=== PATIENT | male | born 1945 | race Caucasian/White ===

== ENCOUNTER → 2016-09-29 | Outpatient (CLI) | payer MEDICARE ==
[~2016-09-29] VITALS: Ht 175.3 cm; Wt 74.8 kg
[~2016-09-29] MED LIST: ALBU17AE23 IH; AMLO1CAP9 PO; ASP81TEC PO; ATOR20TA66 PO; ATOR40TA PO; AZIT-21 PO; BUDE10.22 IH; BUDE6HFA IH; CALC-6 PO; CARV12.52 PO; CARV3.122 PO; CEFA-4 PO; CEPH250T PO; CEPH500C PO; CETI10CA PO; CETI10TA17 PO; CITA20TA4 PO; CLOB15CR3 TP; ENAL2.5T PO; ENOX40DI8 SC; ETOD400T PO; FEXO1TAB49 PO; FURO20TA4 PO; GABA800T2 PO; GBPN300C PO; HCT25T PO; HYDR-2890 PO; HYDR-3720 PO; HYDR-3820 PO; HYDR-623 PO; IPRA3AMP IH; IPRA3AMP19 IH; LEFL20TA4 PO; LEUC5TAB PO; LEVO125T PO; LEVO175T5 PO; LEVO175T6 PO; LVT.05T PO; LVT.1T PO; METR500T21 PO; MORP-34 PO; MORP15TA PO; MORP30TA PO; MORP30TA16 PO; MORP30TA60 PO; MORP4CAR IVP; MS15TCR PO; MTX2.5T PO; NF-LOVAZAC PO; NS IV 1000 ML 1,000 ML IV ONE; NS IV 1000 ML 1,000 ML ONE; OMEP20CA6 PO; ONDA4TAB11 PO; ONDA4VIA28 IV; ONDA8TAB13 PO; ONDA8TAB6 PO; PANT40SU PO; PNT40TEC PO; POTA10TA36 PO; PRAM0.252 PO; PRD5T PO; PRED10TA22 PO; PRM25T PO; PRV20T PO; RIVA15TA PO; SACU1TAB PO; SODI44SP4 NS; SUCR1TAB PO; TIZA4CAP PO; TIZA4CAP6 PO; TIZA4TAB3 PO; TIZA4TAB55 PO; TIZA6CAP9 PO; TIZANDINE; VANCOMYCIN PO
[2016-09-29 15:55] VITALS: BP 78/44
[2016-09-29 17:31] VITALS: BP 78/44
== END ==
LOC: SDC 15:39
DX: N17.9 Acute kidney failure, unspecified (principal)
CPT/HCPCS: 96365

== ENCOUNTER → 2016-10-05 | Outpatient (CLI) | payer MEDICARE ==
[~2016-10-05] MED LIST changes: -NS IV 1000 ML 1,000 ML IV ONE; -NS IV 1000 ML 1,000 ML ONE
--- NOTE | 2016-10-05 15:25 | Diagnostic Imaging Report ---
PROCEDURE: CT abdomen and pelvis without contrast. TECHNIQUE: Multiple contiguous axial images were obtained through the abdomen and pelvis without the use of intravenous contrast. INDICATION: Abdominal pain and lower extremity swelling. COMPARISON: Comparison is made to study of 04/01/2015. FINDINGS: Minimal scarring in the lung bases is again noted. Unenhanced images of the liver and spleen reveal no focal abnormality. Gallbladder is partially contracted. There is persistent extrahepatic biliary ductal dilatation without evidence of calcified choledocholith. There is no evidence of adrenal gland lesion. Evaluation of the kidneys is limited without intravenous contrast, however, there is no evidence of solid mass or hydronephrosis. Calcification in the anterior cortex of the left kidney has not significantly changed. There is mild infrarenal abdominal aortic ectasia with aortoiliac atherosclerotic calcification. There is moderate amount of stool throughout the colon. No localized inflammation is seen. The appendix has a normal appearance. There is no evidence of free fluid or pathologic adenopathy in the abdomen. There has been an interval increase in size of prominent bilateral inguinal lymph nodes with the largest lymph node in the right inguinal region measuring 2.2 x 1.0 cm. IMPRESSION: Large amount of stool which may reflect constipation. There is persistent nonobstructing calculus in the left kidney. There has been mild increase in lymph node prominence in the inguinal regions, however, no acute abdominal abnormality is appreciated. Dictated by: Dictated on workstation # [id number]
== END ==
LOC: RAD 13:44
PROVIDERS: ATTEND Nurse Practitioner Family
DX: R10.817 Generalized abdominal tenderness (principal)
CPT/HCPCS: 74176

== ENCOUNTER 2016-10-31 14:27 | Outpatient (RCR) | payer MEDICARE ==
[~2016-10-31 14:27] MED LIST changes: -ATOR20TA66 PO; -ATOR40TA PO; -CALC-6 PO; -ENOX40DI8 SC; -FURO20TA4 PO; -GABA800T2 PO; -HYDR-3820 PO; -IPRA3AMP IH; -LEVO125T PO; -LEVO175T5 PO; -METR500T21 PO; -MORP-34 PO; -MORP30TA PO; -MORP30TA60 PO; -MORP4CAR IVP; -ONDA4VIA28 IV; -ONDA8TAB13 PO; -ONDA8TAB6 PO; -POTA10TA36 PO; -PRED10TA22 PO; -RIVA15TA PO; -SACU1TAB PO; -SUCR1TAB PO; -TIZA4TAB3 PO; -TIZA6CAP9 PO; -VANCOMYCIN PO
[2016-11-08] MEDS ORDERED: TIZA4TAB3 PO (09:43)
[2016-11-08] MEDS ORDERED: ONDA8TAB13 PO (09:43)
[2016-11-08] MEDS ORDERED: SUCR1TAB PO (09:43)
[2016-11-08] MEDS ORDERED: GABA800T2 PO (09:43)
[2016-12-21] MEDS ORDERED: ENOX40DI8 SC (11:19)
[2016-12-21] MEDS ORDERED: MORP4CAR IVP (11:19)
[2016-12-21] MEDS ORDERED: METR500T21 PO (11:19)
[2016-12-21] MEDS ORDERED: ONDA4VIA28 IV (11:19)
[2016-12-21] MEDS ORDERED: VANCOMYCIN PO ×2 (11:22→13:15)
== END 2016-11-14 16:00 | disposition home or self-care (01) ==
LOC: WOUNDCARE 14:27
PROVIDERS: ATTEND Surgery
DX: L97.212 Non-pressure chronic ulcer of right calf with fat layer exposed (principal); L97.221 Non-pressure chronic ulcer of left calf limited to breakdown of skin; I87.333 Chronic venous hypertension (idiopathic) with ulcer and inflammation of bilateral lower extremity; I70.232 Atherosclerosis of native arteries of right leg with ulceration of calf; I70.242 Atherosclerosis of native arteries of left leg with ulceration of calf; T65.222A Toxic effect of tobacco cigarettes, intentional self-harm, initial encounter
CPT/HCPCS: 99213; 99214

== ENCOUNTER 2016-11-07 11:16 | Inpatient (IN) | payer MEDICARE ==
[~2016-11-07] VITALS: Ht 175.3 cm; Wt 63.2 kg
--- OUTSIDE RECORDS SUMMARY | 2016-11-07 11:20 | XMS REPORT | Continuity of Care Document ---
Author Author [facility] Organization [facility] Address Unknown Phone Unavailable Allergies Active Description Code Type Severity Reaction Onset Reported/Identified Relationship to Patient Clinical Status Yes Sulfa (Sulfonamide Antibiotics) [id number] Drug Allergy Unknown N/A 06/16/2011 Medications Problems Date Dx Coded Attending Type Code Diagnosis Diagnosed By 03/04/2015 ARELY PAVON, TEE Reece Ot 401.9 03/04/2015 ARELY PAVON, TEE Reece Ot 562.10 03/04/2015 ARELY PAVON, TEE Reece Ot 715.90 03/04/2015 ARELY PAVON, TEE Reece Ot 792.1 03/18/2015 VALENTINO FLOWERS [employer] Ot 496 04/23/2015 VALENTINO FLOWERS [employer] SUPERVISOR Ot 783.21 04/23/2015 VALENTINO FLOWERS APRN Ot 789.00 05/01/2015 MOSHE PAVON, ANDREINA Thomas Ot 793.6 05/15/2015 VALENTINO FLOWERS APRN Ot 793.6 09/30/2016 ANDREINA MESA MD Ot N17.9 ACUTE KIDNEY FAILURE, UNSPECIFIED 10/06/2016 VALENTINO FLOWERS APRN Ot R10.817 GENERALIZED ABDOMINAL TENDERNESS 10/19/2016 ANDREINA MESA MD Ot N17.9 ACUTE KIDNEY FAILURE, UNSPECIFIED 10/27/2016 VALENTINO FLOWERS [employer]PER[employer] Ot R10.817 GENERALIZED ABDOMINAL TENDERNESS Procedures Results Encounters ACCT No. Visit Date/Time Discharge Status Pt. Type Provider Facility Loc./Unit Complaint [id number] 04/21/2015 09:24:00 2014 23:59:59 CLS Outpatient VALENTINO FLOWERS APRN [facility] CARD [id number] 04/07/2015 07:50:00 2014 23:59:59 CLS Outpatient ANDREINA MESA MD [facility] RAD [id number] 04/01/2015 09:36:00 2014 23:59:59 CLS Outpatient VALENTINO FLOWERS APRN [facility] RAD [id number] 03/04/2015 13:20:00 2014 15:50:00 DIS Outpatient TEE MCGEE MD [facility] [id number] 03/02/2015 13:24:00 2014 23:59:59 CLS Outpatient TEE MCGEE MD [facility] PREOP [id number] 02/26/2015 14:13:00 2014 23:59:59 CLS Outpatient VALENTINO FLOWERS APRN [facility] RAD [id number] 08/12/2013 11:54:00 2012 15:30:00 DIS Outpatient [id number] 08/09/2013 09:24:00 2012 23:59:59 CLS Outpatient [id number] 07/25/2013 09:19:00 2012 23:59:59 CLS Outpatient [id number] 07/19/2013 11:40:00 2012 23:59:59 CLS Outpatient [id number] 10/31/2016 14:27:00 ACT Outpatient FLIP PAVON, RAPHAEL Jeff [facility] WOUNDCARE [id number] 10/05/2016 13:44:00 ACT Outpatient VALENTINO FLOWERS APRN [facility] RAD ABDOMINAL PAIN [id number] 09/29/2016 15:39:00 ACT Outpatient MOSHE PAVON , ANDREINA Tohmas [facility] RENAL FAILURE
[2016-11-07 11:39] LABS: BASOPHILS % (AUTO) 0 % (0-10); EOSINOPHILS % (AUTO) 0 % (0-10); LYMPHOCYTES # (AUTO) 0.7 X 10^3 (1.0-4.0); LYMPHOCYTES % (AUTO) 4 % (12-44); MEAN CORPUSCULAR HEMOGLOBIN 29 PG (25-34); MEAN CORPUSCULAR HGB CONC 33 G/DL (32-36); MEAN CORPUSCULAR VOLUME 88 FL (80-99); MEAN PLATELET VOLUME 9.6 FL (7.4-10.4); MONOCYTES # (AUTO) 0.7 X 10^3 (0.0-1.0); MONOCYTES % (AUTO) 4 % (0-12); NEUTROPHILS # (AUTO) 16.3 X 10^3 (1.8-7.8); NEUTROPHILS % (AUTO) 92 % (42-75); PLATELET COUNT 222 10^3/uL (130-400); RED BLOOD COUNT 4.28 10^6/uL (4.35-5.85); RED CELL DISTRIBUTION WIDTH 14.5 % (10.0-14.5); WHITE BLOOD COUNT 17.7 10^3/uL (4.3-11.0)
[2016-11-07] MEDS ORDERED: RT-ALBUTEROL/IPRATROPIUM 3 ML (DUONEB) VIAL INH ONE (11:45)
[2016-11-07 11:52] LABS: INR 1.4 (0.8-1.4); PROTHROMBIN TIME PATIENT 16.5 SEC (12.2-14.7)
[2016-11-07 11:56] LABS: BILIRUBIN,URINE NEGATIVE (NEGATIVE); KETONES,URINE 2+ (NEGATIVE); LEUKOCYTE ESTERASE ,URINE NEGATIVE (NEGATIVE); NITRITE,URINE NEGATIVE (NEGATIVE); PH,URINE 5 (5-9); PROTEIN,URINE 2+ (NEGATIVE); UROBILINOGEN,URINE NORMAL (NORMAL)
[2016-11-07 12:02] LABS: ALANINE AMINOTRANSFERASE 11 U/L (0-55); ALBUMIN 3.4 G/DL (3.2-4.5); AMMONIA 18 UMOL/L (11-32); AMYLASE 24 U/L (25-125); ANION GAP 14 MMOL/L (5-14); ASPARTATE AMINO TRANSFERASE 23 U/L (5-34); BILIRUBIN,TOTAL 0.4 MG/DL (0.1-1.0); BLOOD UREA NITROGEN 39 MG/DL (7-18); BUN/CREATININE RATIO 22; CALCIUM 9.2 MG/DL (8.5-10.1); CARBON DIOXIDE 26 MMOL/L (21-32); CHLORIDE 95 MMOL/L (98-107); CREATINE KINASE 574 U/L (30-200); CREATININE SERUM 1.78 MG/DL (0.60-1.30); GFR ESTIMATED 38; GLUCOSE 114 MG/DL (70-105); MAGNESIUM 1.9 MG/DL (1.8-2.4); POTASSIUM 3.9 MMOL/L (3.6-5.0); SODIUM 135 MMOL/L (135-145); TOTAL PROTEIN 6.9 G/DL (6.4-8.2)
[2016-11-07 12:05] LABS: ALCOHOL < 10 MG/DL (<10)
[2016-11-07 12:08] LABS: SQUAMOUS EPITHELIAL CELL,UR 0-2 /HPF; WBC,URINE RARE /HPF
[2016-11-07 12:10] LABS: ABG BASE EXCESS 1.3 MMOL/L (-2.5-2.5); ABG HCO3 25 MMOL/L (23-27); ABG OXYGEN SATURATION 99 % (94-100); ABG PCO2 39 MMHG (35-45); ABG PH 7.43 (7.37-7.43); ABG PO2 147 MMHG (79-93); ABG TCO2 26.1 MMOL/L (21.0-31.0)
[2016-11-07 12:14] LABS: LYMPHOCYTES % (MANUAL) 6 %; NEUTROPHILS % (MANUAL) 91 %
[2016-11-07 12:18] LABS: ALLENS TEST YES-POS; PATIENT TEMP 101.2
--- NOTE | 2016-11-07 12:42 | Diagnostic Imaging Report ---
INDICATION: Hypoxemia EXAMINATION: Portable chest at 12:29 PM. There is an infiltrate present in the right lower lung obscuring the right heart border. There is no appreciable effusion. Left lung is clear. IMPRESSION: Right basilar pneumonia. Dictated by: Dictated on workstation # [id number]
[2016-11-07] MEDS ORDERED: ENOXAPARIN 80 MG/0.8 ML (LOVENOX) SYR SC ONE (14:00)
[2016-11-07] MEDS ORDERED: cefTRIAXone INJECTION 1,000 MG in NS (IVPB) 50 ML IV ONE (14:00)
[2016-11-07 15:15] VITALS: BP 129/76
[2016-11-07] MEDS ORDERED: morphine INJ 4 MG/ML 1 ML (VIAL/SYRINGE) IV PRN (15:45)
[2016-11-07] MEDS ORDERED: D5 1/2 NS 1000 ML IV SOLUTION 1,000 ML IV SCH (15:45)
[2016-11-07] MEDS ORDERED: CATHETER FLUSH 10 ML SYR IV PRN (15:45)
[2016-11-07] MEDS ORDERED: AZITHROMYCIN 500 MG/NS 250 ML IVPB IV NR ×2 (16:00)
--- NOTE | 2016-11-07 16:44 | Diagnostic Imaging Report ---
PROCEDURE: CT head without contrast. TECHNIQUE: Multiple contiguous axial images were obtained through the brain without the use of intravenous contrast. INDICATION: Altered mental status. FINDINGS: Ventricles and sulci are diffusely prominent. No hemorrhage is identified. There is no CT evidence of an acute infarct. There is no abnormal mass effect or shift of midline structures. Calvarium is intact and the visualized paranasal sinuses are clear. There is mild atherosclerotic calcification within distal internal carotid arteries, bilaterally. IMPRESSION: No CT evidence of acute intracranial abnormality. Dictated by: Dictated on workstation # [id number]
--- NOTE | 2016-11-07 16:50 | Consultation-Cardiology ---
HPI-Cardiology Cardiology Consultation Date of Consultation 11/07/16 Date of Admission Indication: Peripheral arterial disease HPI 71 years old gentleman with history of peripheral arterial disease, nonhealing wound, he was on the schedule for peripheral angiogram, brought to the emergency room for change in mental status, he is lethargic, not able to provide any history, does not know where he is. Open his eyes to verbal stimuli , does not respond appropriately, does not follow commands. Diagnosed with pneumonia and admitted to the intensive care unit and started on antibiotics. Home Medications & Allergies Allergies: Coded Allergies: Sulfa (Sulfonamide Antibiotics) (Unverified Allergy, Unknown, 11/07/16) Home Medication List Reviewed: Yes [id number]-Ihtyxo Hx Patient Social History Alcohol Use: Denies Use Recreational Drug Use: No (NONE FOR YEARS) Smoking Status: Current Everyday Smoker Type Used: Cigarettes Recent Foreign Travel: No Recent Infectious Disease Expo: No Recent Hopitalizations: No Immunizations Up To Date Date of Pneumonia Vaccine: Mar 04, 2013 Past Medical History past medical history as discussed below Family Medical History Family Medical Hx noncontributory to his current condition Constitutional: see HPI malaise weakness EENTM: no symptoms reported see HPI Respiratory: see HPI cough dyspnea on exertion short of breath Cardiovascular: see HPINo chest pain, No edema, No Hx of Intervention, No palpitations, No syncope, No vascular heart diseas, other (nonhealing foot ulcers) Gastrointestinal: no symptoms reported see HPI Genitourinary: no symptoms reported see HPI Musculoskeletal: no symptoms reported see HPI Skin: see HPI Psychiatric/Neurological: No Symptoms Reported See HPI Other (not responsive to verbal stimuli.) Reviewed Test Results Reviewed Test Results Lab Laboratory Tests Test 11/07/16 11:22 11/07/16 11:45 11/07/16 12:03 Range/Units Activated Partial Thromboplast Time 34 24-35 SEC Alanine Aminotransferase (ALT/SGPT) 11 0-55 U/L Albumin 3.4 3.2-4.5 G/DL Alkaline Phosphatase 74 40-136 U/L Ammonia 18 11-32 UMOL/L Amylase Level 24 L 25-125 U/L Anion Gap 14 5-14 MMOL/L Aspartate Amino Transf (AST/SGOT) 23 5-34 U/L B-Type Natriuretic Peptide 255.3 H <100.0 PG/ML BUN/Creatinine Ratio 22 Basophils # (Auto) 0.0 0.0-0.1 10^3/uL Basophils (%) (Auto) 0 0-10 % Blood Morphology Comment NORMAL Blood Urea Nitrogen 39 H 7-18 MG/DL Calcium Level 9.2 8.5-10.1 MG/DL Carbon Dioxide Level 26 21-32 MMOL/L Chloride Level 95 L 98-107 MMOL/L Creatine Kinase MB 3.5 <6.6 NG/ML Creatinine 1.78 H 0.60-1.30 MG/DL Eosinophils # (Auto) 0.0 0.0-0.3 10^3/uL Eosinophils (%) (Auto) 0 0-10 % Estimat Glomerular Filtration Rate 38 Free Thyroxine 2.14 H 0.70-1.48 NG/DL Glucose Level 114 H 70-105 MG/DL Hematocrit 38 L 40-54 % Hemoglobin 12.3 L 13.3-17.7 G/DL INR Comment 1.4 0.8-1.4 Lactic Acid Level 1.6 0.5-2.0 MMOL/L Lymphocytes # (Auto) 0.7 L 1.0-4.0 X 10^3 Lymphocytes % (Manual) 6 % Lymphocytes (%) (Auto) 4 L 12-44 % Magnesium Level 1.9 1.8-2.4 MG/DL Mean Corpuscular Hemoglobin 29 25-34 PG Mean Corpuscular Hemoglobin Concent 33 32-36 G/DL Mean Corpuscular Volume 88 80-99 FL Mean Platelet Volume 9.6 7.4-10.4 FL Monocytes # (Auto) 0.7 0.0-1.0 X 10^3 Monocytes % (Manual) 3 % Monocytes (%) (Auto) 4 0-12 % Neutrophils # (Auto) 16.3 H 1.8-7.8 X 10^3 Neutrophils % (Manual) 91 % Neutrophils (%) (Auto) 92 H 42-75 % Platelet Count 222 130-400 10^3/uL Potassium Level 3.9 3.6-5.0 MMOL/L Promyelocytes % % Prothrombin Time 16.5 H 12.2-14.7 SEC Red Blood Count 4.28 L 4.35-5.85 10^6/uL Red Cell Distribution Width 14.5 10.0-14.5 % Serum Alcohol < 10 <10 MG/DL Sodium Level 135 135-145 MMOL/L TSH [place] Testing 0.02 L 0.35-4.94 UIU/ML Total Bilirubin 0.4 0.1-1.0 MG/DL Total Creatine Kinase 574 H 30-200 U/L Total Protein 6.9 6.4-8.2 G/DL Troponin I 0.60 *H <0.30 NG/ML White Blood Count 17.7 H 4.3-11.0 10^3/uL Ur Tricyclic Antidepressants Screen NEGATIVE NEGATIVE Urine Amorphous Sediment FEW SHAUN URATES H /LPF Urine Amphetamines Screen NEGATIVE NEGATIVE Urine Bacteria FEW H /HPF Urine Barbiturates Screen NEGATIVE NEGATIVE Urine Benzodiazepines Screen NEGATIVE NEGATIVE Urine Bilirubin NEGATIVE NEGATIVE Urine Cannabinoids Screen NEGATIVE NEGATIVE Urine Casts NONE /LPF Urine Clarity CLEAR Urine Cocaine Screen NEGATIVE NEGATIVE Urine Color YELLOW Urine Crystals NONE /LPF Urine Culture Indicated NO Urine Glucose (UA) NEGATIVE NEGATIVE Urine Ketones 2+ H NEGATIVE Urine Leukocyte Esterase NEGATIVE NEGATIVE Urine Methadone Screen NEGATIVE NEGATIVE Urine Methamphetamines Screen NEGATIVE NEGATIVE Urine Mucus NEGATIVE /LPF Urine Nitrite NEGATIVE NEGATIVE Urine Opiates Screen POSITIVE H NEGATIVE Urine Oxycodone Screen NEGATIVE NEGATIVE Urine Phencyclidine Screen NEGATIVE NEGATIVE Urine Propoxyphene Screen NEGATIVE NEGATIVE Urine Protein 2+ H NEGATIVE Urine RBC NONE /HPF Urine RBC (Auto) 4+ H NEGATIVE Urine Specific [place] 1.020 1.016-1.022 Urine Squamous Epithelial Cells 0-2 /HPF Urine Urobilinogen NORMAL NORMAL MG/DL Urine WBC RARE /HPF Urine pH 5 5-9 Jermaine Test YES-POS Arterial Blood Base Excess 1.3 -2.5-2.5 MMOL/L Arterial Blood HCO3 25 23-27 MMOL/L Arterial Blood Oxygen Saturation 99 94-100 % Arterial Blood Partial Pressure CO2 39 35-45 MMHG Arterial Blood Partial Pressure O2 147 H 79-93 MMHG Arterial Blood Total CO2 26.1 21.0-31.0 MMOL/L Arterial Blood pH 7.43 7.37-7.43 Blood Gas Inspired Oxygen 10 Blood Gas Patient Temperature 101.2 Blood Gas Puncture Site RT RADIAL Blood Gas Ventilator Setting NO Physical Exam Vital Signs Vital Sign - Last 12Hours 11/07/16 11:50 Temp 101.2 Pulse 102 Resp 18 B/P 101/78 Pulse Ox 94 O2 Delivery Nasal Cannula O2 Flow Rate 6 Capillary Refill : Less Than 3 Seconds General Appearance: WD/WN Moderate Distress Eyes: Bilateral Eye EOMI, Bilateral Eye Normal Inspection, Bilateral Eye PERRL HEENT: PERRL/EOMI TMs Normal Normal ENT Inspection Pharynx Normal Neck: Normal Inspection Non Tender Supple Carotid Bruit Respiratory: Chest Non Tender No Respiratory Distress Crackles Decreased Breath Sounds Cardiovascular: Regular Rate, Rhythm No Edema No Gallop No JVD No Murmur Other (diminished peripheral pulse) Gastrointestinal: Normal Bowel Sounds No Organomegaly No Pulsatile Mass Non Tender Soft Back: Normal Inspection No Vertebral Tenderness Extremity: Normal Range of Motion No Calf Tenderness No Pedal Edema Other ( foot ulcers bilaterally) Neurologic/Psychiatric: Alert Other (lethargic, not following commands, responds by opening his eyes) Skin: Normal Color Warm/Dry Lymphatic: No Adenopathy A/P-Cardiology Admission Diagnosis Acute change in mental status Pneumonia Peripheral arterial disease Coronary artery disease Assessment/Plan Acute change in mental status, probably secondary to sepsis and pneumonia, managed by primary care physician, started on IV fluid. Elevated troponin, no acute EKG changes, had history of cardiac catheterization done in 2011 showing [id number] disease nonobstructive disease. May require reevaluating his coronary anatomy once his kidney functions and mental status are better, I will start aspirin at this time, evaluate swallowing study Acute renal failure, dehydration, starting IV fluid and monitoring renal function closely. Pneumonia, managed by primary care physician, started on antibiotics in the emergency room. Nonhealing foot ulcers bilaterally, on the right side is on the outside portion of the ankle, SEAMUS on the right is 0.57, on the left side the ulcer is on the inner part of the foot, SEAMUS 0.32, planning to proceed with peripheral angiogram possible angioplasty Once clinically more stable, patient was on the schedule for angiogram for November 09, 2016 Coronary artery disease, last angiogram was done in November 2011 showing large dominant circumflex artery with [id number] disease, nonobstructive disease , preserved left ventricular function, no recent workup was done, I will evaluate coronary angiogram with the peripheral angiogram. History of peripheral edema, currently no edema, patient is dehydrated. Continue to monitor Hypertension, Continue to monitor blood pressure Hyperlipidemia, maintained on Pravachol, evaluate lipid profile Hyperthyroidism, history of hypothyroidism and levothyroid, managed by primary care physician History of pulmonary hypertension, I will evaluate 2-D echocardiogram. History of rheumatoid arthritis. COPD, managed and followed by primary care physician Tobaccoism, we discussed smoking cessation in length. Hypothyroidism followed and managed by primary care physician History of chronic narcotic use, urine drug screen is positive for opioids Clinical Quality Measures AMI/AHF: ASA po Prior to arrival: TORY Bryant MD Nov 07, 2016 16:50
[2016-11-07] MEDS ORDERED: ASPIRIN 325 MG (5 GR) TABLET PO NR (17:00)
[2016-11-07] MEDS: NS IV 1000 ML 1,000 ML IV SCH (17:23)
[2016-11-07] MEDS ORDERED: RT-ALBUTEROL/IPRATROPIUM 3 ML (DUONEB) VIAL INH PRN (17:30)
[2016-11-07] MEDS: RT-ALBUTEROL/IPRATROPIUM 3 ML (DUONEB) VIAL INH SCH ×2 (18:36→22:26)
[2016-11-07 19:00] VITALS: BP 134/79
[2016-11-07 20:00] VITALS: BP 151/73
[2016-11-07 21:00] VITALS: BP 159/87
[2016-11-07 22:00] VITALS: BP 148/86
[2016-11-07 23:00] VITALS: BP 132/70
[2016-11-08] VITALS (20 sets, daily range): BP systolic 116–160; BP diastolic 53–99
[2016-11-08] MEDS: ACETAMINOPHEN 650 MG SUPP (TYLENOL) PR PRN ×2 (02:12→06:28)
[2016-11-08] MEDS: NS IV 1000 ML 1,000 ML IV SCH ×3 (02:13→22:45)
[2016-11-08] MEDS: RT-ALBUTEROL/IPRATROPIUM 3 ML (DUONEB) VIAL INH SCH ×6 (02:22→21:56)
[2016-11-08 04:27] LABS: BASOPHILS % (AUTO) 0 % (0-10); EOSINOPHILS % (AUTO) 0 % (0-10); LYMPHOCYTES # (AUTO) 0.5 X 10^3 (1.0-4.0); LYMPHOCYTES % (AUTO) 4 % (12-44); MEAN CORPUSCULAR HEMOGLOBIN 28 PG (25-34); MEAN CORPUSCULAR HGB CONC 32 G/DL (32-36); MEAN CORPUSCULAR VOLUME 88 FL (80-99); MEAN PLATELET VOLUME 10.7 FL (7.4-10.4); MONOCYTES # (AUTO) 0.4 X 10^3 (0.0-1.0); MONOCYTES % (AUTO) 4 % (0-12); NEUTROPHILS # (AUTO) 10.9 X 10^3 (1.8-7.8); NEUTROPHILS % (AUTO) 92 % (42-75); PLATELET COUNT 195 10^3/uL (130-400); RED BLOOD COUNT 4.27 10^6/uL (4.35-5.85); RED CELL DISTRIBUTION WIDTH 14.6 % (10.0-14.5); WHITE BLOOD COUNT 11.8 10^3/uL (4.3-11.0)
[2016-11-08 05:01] LABS: ALBUMIN 3.1 G/DL (3.2-4.5); BILIRUBIN,TOTAL 0.5 MG/DL (0.1-1.0); CALCIUM 9.3 MG/DL (8.5-10.1); CREATININE SERUM 1.48 MG/DL (0.60-1.30); PHOSPHORUS 2.8 MG/DL (2.3-4.7); POTASSIUM 3.9 MMOL/L (3.6-5.0); TOTAL PROTEIN 6.9 G/DL (6.4-8.2)
[2016-11-08 05:09] LABS: MYOGLOBIN SERUM 392.4 NG/ML (10.0-92.0)
[2016-11-08 05:18] LABS: TROPONIN I 1.26 NG/ML (<0.30)
[2016-11-08] MEDS: MAGNESIUM 1 GM/100 ML IVPB 100 ML IV SCH (05:38)
[2016-11-08] MEDS: POTASSIUM CL 10MEQ/50ML IVPB 50 ML IV SCH (05:38)
[2016-11-08] MEDS: KCL 20 MEQ TAB (K-DUR) PO SCH (05:39)
--- NOTE | 2016-11-08 06:25 | ED General ---
General Chief Complaint: Chest Pain Stated Complaint: ALTERED MENTAL STATUS; PNEUMONIA;SEPSIS;CHEST PAIN Nursing Triage Note: PT REPORTS PT STARTED GETTING SICK 3 DAYS AGO. PT HAS CONTINUED TO GET WORSE AND HAVE GENERALIZED WEAKNESS/LETHERGY. PT PRESENTS TO ED WITH A FEVER AND COUGH. EMS REPORTS INITIAL 02 SAT ON RA OF 82%. PT PRESENTS TO ED ON NONREBREATHER RUNNING AT 15 L. EMS ALSO REPORTS PT WAS CLUCHING L SIDE OF CHEST AND MOANING. PT IS UNABLE TO SPECIFY WHERE HIS PAIN IS AT THIS TIME. Nursing Sepsis Screen: Severe Sepsis Risk Source of Information: EMS, Old Records (MOST OF PMH IS FROM OLD RECORDS), Spouse Exam Limitations: Other (PT UNABLE TO GIVE ANY INFORMATION) History of Present Illness Time Seen by Provider: 11:20 Initial Comments PT ARRIVES VIA EMS FROM HOME-- CALLED REPORTS THAT PT WAS ACTING NORMAL YESTERDAY, JUST FELT A LITTLE TIRED AND WEAK, BUT NO OTHER SYMPTOMS PT CANNOT ANSWER ANY QUESTIONS--LITERALLY THE ONLY THING PT HAS VERBALIZED WAS THAT HE "FEELS F---ED UP" EMS REPORT THAT PT'S O2 SAT WAS 80-82% ON ROOM AIR--UP TO 90'S ON NRB AT 15L EMS REPORT THAT PT WAS HOLDING LEFT CHEST AND MOANING AND THEY GAVE NTG X2 WHICH SEEMED TO ALLEVIATE THAT DISCOMFORT, PT IS NO LONGER MOANING OR HOLDING HIS CHEST. EMS DID NOT GIVE ASPIRIN DUE TO PT NOT HAVING ANY TEETH AND HAVING ALTERED MENTAL STATUS, AND RISK OF ASPIRATION. NO OTHER INFORMATION IS AVAILABLE PT IS NOTED TO HAVE OCCASIONAL LOOSE COUGH ON ARRIVAL TO ER. 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--IS TO HAVE VASCULAR STUDIES ON HIS LEGS THIS WEEK Allergies and Home Medications Allergies Coded Allergies: Sulfa (Sulfonamide Antibiotics) (Unverified Allergy, Unknown, 11/07/16) Home Medications Albuterol 17 Gm Aerosol 2 PUFF IH BID (Reported) Albuterol Sulfate/Ipratropium 3 Ml Solution 3 ML IH QID PRN PRN SHORTNESS OF BREATH (Reported) NEEDED FOR SHORTNESS OF BREATH Aspirin 81 Mg Tabec 81 MG PO DAILY (Reported) Budesonide/Formoterol Fumarate 10.2 Gm Hfa.aer.ad 2 PUFF IH BID (Reported) Carvedilol 12.5 Mg Tablet 12.5 MG PO BID (Reported) Cefadroxil Hydrate 500 Mg Capsule 500 MG PO BID (Reported) 10 DAY THERAPY FILLED 08-01-13 Citalopram Hydrobromide 20 Mg Tablet 20 MG PO DAILY (Reported) Enalapril Maleate 2.5 Mg Tablet 2.5 MG PO BID (Reported) Etodolac 400 Mg Tablet 400 MG PO BID (Reported) Gabapentin 300 Mg Cap 300 MG PO TID (Reported) Hydrochlorothiazide 25 Mg Tablet 25 MG PO DAILY (Reported) Hydrocodone Bit/Acetaminophen 1 Each Tablet 1 TAB PO TID PRN PRN PAIN (Reported ) NEEDED FOR PAIN 10-325MG TABLET Leflunomide 20 Mg Tablet 20 MG PO EVERY OTHER DAY (Reported) Leucovorin Calcium 5 Mg Tablet 5 MG PO WEEKLY ON MONDAY (Reported) TAKES ONE WEEKLY ON MONDAY AFTER METHOTREXATE Levothyroxine Sodium 175 Mcg Tablet 175 MCG PO DAILY (Reported) Methotrexate 2.5 Mg Tab 12.5 MG PO UD (Reported) TAKES 5 (2.5MG) TABLETS TWICE DAILY ONCE WEEKLY ON MONDAY Morphine Sulfate 30 Mg Tablet 30 MG PO TID (Reported) Morphine Sulfate 15 Mg Tab 15 MG PO TID (Reported) [place]-3 Acid Ethyl Esters 1 Gm Capsule 2 GM PO BID (Reported) TAKES 2 (1GM) CAPSULES TWICE DAILY Pantoprazole Sod 40 Mg Tab 40 MG PO DAILY (Reported) Pramipexole Di-Hcl 0.25 Mg Tablet 0.25 MG PO DAILY (Reported) Pravastatin Sodium 20 Mg Tablet 20 MG PO DAILY (Reported) Prednisone 5 Mg Tab 5 MG PO DAILY (Reported) Promethazine Hcl 25 Mg Tablet 25 MG PO DAILY (Reported) Tizanidine Hcl 4 Mg Capsule 4 MG PO BID (Reported) Constitutional: see HPI malaise weakness other (UNABLE TO OBTAIN FROM PT) Respiratory: cough Skin: other (CHRONIC LEG WOUNDS FROM PVD) Past Pajdodl-Bipfws-Sdntqt Hx Patient Social History Alcohol Use: Denies Use Recreational Drug Use: Yes (NONE FOR YEARS) Smoking Status: Current Everyday Smoker (1 / PPD) Type Used: Cigarettes Recent Foreign Travel: No Contact w/Someone Who Travel: No Recent Infectious Disease Expo: No Recent Hopitalizations: No Physical Abuse Screen: No Sexual Abuse: No Immunizations Up To Date Date of Pneumonia Vaccine: Mar 04, 2013 Surgeries HX Surgeries: Yes (L KNEE REPLACEMENT, L WRIST, ANGIOPLASTY, BILATERAL OLECRANON BURSA SURGERIES; CARDIAC CATH, COLONOSCOPIES) Surgeries: Cardiac, Orthopedic Respiratory Hx Respiratory Disorders: Yes Respiratory Disorders: Chronic Bronchitis, COPD, Emphysema Cardiovascular Hx Cardiac Disorders: Yes (CHF; PULMONARY HTN) Cardiac Disorders: Coronary Artery Disease, High Cholesterol, Hypertension, Peripheral Vascular Neurological Hx Neurological Disorders: No Reproductive System Sexually Transmitted Disease: Yes (CONDYLOMA) Genitourinary Hx Genitourinary Disorders: No Gastrointestinal Hx Gastrointestinal Disorders: Yes Gastrointestinal Disorders: Gastroesophageal Reflux, Hemorrhoids Musculoskeletal Hx Musculoskeletal Disorders: Yes (RHEUMATOID ARTHRITIS/OSTEOPOROSIS; BILATERAL OLECRANON BURSITIS) Musculoskeletal Disorders: Osteoporosis, Arthritis, Rheumatoid Arthritis Endocrine Hx Endocrine Disorders: Yes Endocrine Disorders: Hypothyroidsim HEENT HX ENT Disorders: Yes (full set of dentures) Cancer Hx Cancer: No Psychosocial Hx Psychiatric Problems: Yes Behavioral Health Disorders: Anxiety Integumentary HX Skin/Integumentary Disorder: Yes (CHRONIC LEG WOUNDS ) Blood Transfusions Hx Blood Disorders: Yes (ANEMIA) Physical Exam Vital Signs Vital Sign - Last 12Hours 11/07/16 11:45 Temp 101.2 Pulse 103 Resp 18 B/P 116/71 Pulse Ox 100 O2 Delivery Non Rebreather O2 Flow Rate 10 Capillary Refill : Less Than 3 Seconds General Appearance: Thin Other (UNKEMPT. PT IS NOT TALKING OR FOLLOWING COMMANDS. OCCASIONAL LOOSE COUGH NOTED. PT DOES OPEN EYES AND LOOK AROUND, AND RESPONDS TO PAIN) HEENT: PERRL/EOMI Other (ORAL MUCOSA DRY; EDENTULOUS) Neck: Supple Respiratory: Other (LUNG SOUNDS DIMINISHED--RIGHT > LEFT, BUT WHEEZING NOTED BILATERALLY--LEFT > RIGHT) Cardiovascular: Regular Rate, Rhythm No JVD No Murmur Other (UNABLE TO PALPATE PULSES IN FEET, BUT FEET ARE WARM AND PINK AND CAP REFILL < 5 SECONDS) Gastrointestinal: No Organomegaly No Pulsatile Mass Non Tender Soft Extremity: Other (CHRONIC VENOUS STASIS CHANGES BILATERALLY. NO EDEMA. MULTIPLE WOUNDS TO BILATERAL LOWER LEGS WITH DRESSINGS IN PLACE--ALL ARE CLEAN AND DRY. ) Neurologic/Psychiatric: Other (MENTATION ABOVE. DOES APPEAR TO MOVE ALL EXTREMITIES, BUT IS NOT TALKING OR FOLLOWING COMMANDS) Skin: Normal Color Warm/Dry Progress/Results/Core Measures Results/Orders Lab Results Laboratory Tests Test 11/07/16 11:22 11/07/16 11:45 11/07/16 12:03 11/07/16 17:10 Range/Units Activated Partial Thromboplast Time 34 24-35 SEC Alanine Aminotransferase (ALT/SGPT) 11 0-55 U/L Albumin 3.4 3.2-4.5 G/DL Alkaline Phosphatase 74 40-136 U/L Ammonia 18 11-32 UMOL/L Amylase Level 24 L 25-125 U/L Anion Gap 14 5-14 MMOL/L Aspartate Amino Transf (AST/SGOT) 23 5-34 U/L B-Type Natriuretic Peptide 255.3 H <100.0 PG/ML BUN/Creatinine Ratio 22 Basophils # (Auto) 0.0 0.0-0.1 10^3/uL Basophils (%) (Auto) 0 0-10 % Blood Morphology Comment NORMAL Blood Urea Nitrogen 39 H 7-18 MG/DL Calcium Level 9.2 8.5-10.1 MG/DL Carbon Dioxide Level 26 21-32 MMOL/L Chloride Level 95 L 98-107 MMOL/L Creatine Kinase MB 3.5 <6.6 NG/ML Creatinine 1.78 H 0.60-1.30 MG/DL Eosinophils # (Auto) 0.0 0.0-0.3 10^3/uL Eosinophils (%) (Auto) 0 0-10 % Estimat Glomerular Filtration Rate 38 Free Thyroxine 2.14 H 0.70-1.48 NG/DL Glucose Level 114 H 70-105 MG/DL Hematocrit 38 L 40-54 % Hemoglobin 12.3 L 13.3-17.7 G/DL INR Comment 1.4 0.8-1.4 Lactic Acid Level 1.6 0.5-2.0 MMOL/L Lymphocytes # (Auto) 0.7 L 1.0-4.0 X 10^3 Lymphocytes % (Manual) 6 % Lymphocytes (%) (Auto) 4 L 12-44 % Magnesium Level 1.9 1.8-2.4 MG/DL Mean Corpuscular Hemoglobin 29 25-34 PG Mean Corpuscular Hemoglobin Concent 33 32-36 G/DL Mean Corpuscular Volume 88 80-99 FL Mean Platelet Volume 9.6 7.4-10.4 FL Monocytes # (Auto) 0.7 0.0-1.0 X 10^3 Monocytes % (Manual) 3 % Monocytes (%) (Auto) 4 0-12 % Neutrophils # (Auto) 16.3 H 1.8-7.8 X 10^3 Neutrophils % (Manual) 91 % Neutrophils (%) (Auto) 92 H 42-75 % Platelet Count 222 130-400 10^3/uL Potassium Level 3.9 3.6-5.0 MMOL/L Promyelocytes % % Prothrombin Time 16.5 H 12.2-14.7 SEC Red Blood Count 4.28 L 4.35-5.85 10^6/uL Red Cell Distribution Width 14.5 10.0-14.5 % Serum Alcohol < 10 <10 MG/DL Sodium Level 135 135-145 MMOL/L TSH [place] Testing 0.02 L 0.35-4.94 UIU/ML Total Bilirubin 0.4 0.1-1.0 MG/DL Total Creatine Kinase 574 H 30-200 U/L Total Protein 6.9 6.4-8.2 G/DL Troponin I 0.60 *H 0.71 *H <0.30 NG/ML White Blood Count 17.7 H 4.3-11.0 10^3/uL Ur Tricyclic Antidepressants Screen NEGATIVE NEGATIVE Urine Amorphous Sediment FEW SHAUN URATES H /LPF Urine Amphetamines Screen NEGATIVE NEGATIVE Urine Bacteria FEW H /HPF Urine Barbiturates Screen NEGATIVE NEGATIVE Urine Benzodiazepines Screen NEGATIVE NEGATIVE Urine Bilirubin NEGATIVE NEGATIVE Urine Cannabinoids Screen NEGATIVE NEGATIVE Urine Casts NONE /LPF Urine Clarity CLEAR Urine Cocaine Screen NEGATIVE NEGATIVE Urine Color YELLOW Urine Crystals NONE /LPF Urine Culture Indicated NO Urine Glucose (UA) NEGATIVE NEGATIVE Urine Ketones 2+ H NEGATIVE Urine Leukocyte Esterase NEGATIVE NEGATIVE Urine Methadone Screen NEGATIVE NEGATIVE Urine Methamphetamines Screen NEGATIVE NEGATIVE Urine Mucus NEGATIVE /LPF Urine Nitrite NEGATIVE NEGATIVE Urine Opiates Screen POSITIVE H NEGATIVE Urine Oxycodone Screen NEGATIVE NEGATIVE Urine Phencyclidine Screen NEGATIVE NEGATIVE Urine Propoxyphene Screen NEGATIVE NEGATIVE Urine Protein 2+ H NEGATIVE Urine RBC NONE /HPF Urine RBC (Auto) 4+ H NEGATIVE Urine Specific [place] 1.020 1.016-1.022 Urine Squamous Epithelial Cells 0-2 /HPF Urine Urobilinogen NORMAL NORMAL MG/DL Urine WBC RARE /HPF Urine pH 5 5-9 Jermaine Test YES-POS Arterial Blood Base Excess 1.3 -2.5-2.5 MMOL/L Arterial Blood HCO3 25 23-27 MMOL/L Arterial Blood Oxygen Saturation 99 94-100 % Arterial Blood Partial Pressure CO2 39 35-45 MMHG Arterial Blood Partial Pressure O2 147 H 79-93 MMHG Arterial Blood Total CO2 26.1 21.0-31.0 MMOL/L Arterial Blood pH 7.43 7.37-7.43 Blood Gas Inspired Oxygen 10 Blood Gas Patient Temperature 101.2 Blood Gas Puncture Site RT RADIAL Blood Gas Ventilator Setting NO Test 11/08/16 03:35 Range/Units Alanine Aminotransferase (ALT/SGPT) 17 0-55 U/L Albumin 3.1 L 3.2-4.5 G/DL Alkaline Phosphatase 69 40-136 U/L Anion Gap 15 H 5-14 MMOL/L Aspartate Amino Transf (AST/SGOT) 40 H 5-34 U/L BUN/Creatinine Ratio 24 Basophils # (Auto) 0.0 0.0-0.1 10^3/uL Basophils (%) (Auto) 0 0-10 % Blood Urea Nitrogen 36 H 7-18 MG/DL Calcium Level 9.3 8.5-10.1 MG/DL Carbon Dioxide Level 23 21-32 MMOL/L Chloride Level 99 98-107 MMOL/L Cholesterol Level 98 < 200 MG/DL Creatinine 1.48 H 0.60-1.30 MG/DL Eosinophils # (Auto) 0.0 0.0-0.3 10^3/uL Eosinophils (%) (Auto) 0 0-10 % Estimat Glomerular Filtration Rate 47 Glucose Level 129 H 70-105 MG/DL HDL Cholesterol 28 L 40-60 MG/DL Hematocrit 37 L 40-54 % Hemoglobin 12.0 L 13.3-17.7 G/DL LDL Cholesterol Direct 47 1-129 MG/DL Lymphocytes # (Auto) 0.5 L 1.0-4.0 X 10^3 Lymphocytes (%) (Auto) 4 L 12-44 % Magnesium Level 2.0 1.8-2.4 MG/DL Mean Corpuscular Hemoglobin 28 25-34 PG Mean Corpuscular Hemoglobin Concent 32 32-36 G/DL Mean Corpuscular Volume 88 80-99 FL Mean Platelet Volume 10.7 H 7.4-10.4 FL Monocytes # (Auto) 0.4 0.0-1.0 X 10^3 Monocytes (%) (Auto) 4 0-12 % Myoglobin 392.4 H 10.0-92.0 NG/ML Neutrophils # (Auto) 10.9 H 1.8-7.8 X 10^3 Neutrophils (%) (Auto) 92 H 42-75 % Phosphorus Level 2.8 2.3-4.7 MG/DL Platelet Count 195 130-400 10^3/uL Potassium Level 3.9 3.6-5.0 MMOL/L Red Blood Count 4.27 L 4.35-5.85 10^6/uL Red Cell Distribution Width 14.6 H 10.0-14.5 % Sodium Level 137 135-145 MMOL/L Total Bilirubin 0.5 0.1-1.0 MG/DL Total Protein 6.9 6.4-8.2 G/DL Triglycerides Level 84 <150 MG/DL Troponin I 1.26 *H <0.30 NG/ML VLDL Cholesterol 17 5-40 MG/DL White Blood Count 11.8 H 4.3-11.0 10^3/uL Micro Results Microbiology 11/07/16 Influenza Types A,B Antigen (DIONISIO) - Final, Complete My Orders Orders-BHARATH REAVES DO Saline Lock/Iv-Start (11/07/16 11:24) Ekg Tracing (11/07/16 11:24) O2 (11/07/16 11:24) Monitor-Rhythm Ecg Trace Only (11/07/16 11:24) Amylase (11/07/16 11:24) BNP (11/07/16 11:24) Cbc With Automated Diff (11/07/16 11:24) Comprehensive Metabolic Panel (11/07/16 11:24) Creatine Kinase (11/07/16 11:24) Creatine Kinase Mb (11/07/16 11:24) Magnesium (11/07/16 11:24) Protime With Inr (11/07/16 11:24) Partial Thromboplastin Time (11/07/16 11:24) Thyroid Analyzer (11/07/16 11:24) Troponin I (11/07/16 11:24) Ua Culture If Indicated (11/07/16 11:24) Chest 1 View, Ap/Pa Only (11/07/16 11:24) Ct Head Wo (11/07/16 11:24) Alcohol (11/07/16 11:29) Ammonia (11/07/16 11:29) Arterial Blood Gas (11/07/16 11:29) Drug Screen Stat (Urine) (11/07/16 11:29) Lactic Acid Analyzer (11/07/16 11:34) Blood Culture (11/07/16 11:34) Influenza A And B Antigens (11/07/16 11:34) Albuterol/Ipra Inhalation Soln (Duoneb I (11/07/16 11:45) Rt Request For Service (11/07/16 11:34) Svn Sm Volume Nebulizer Rt-Rfs (11/07/16 11:34) Manual Differential (11/07/16 11:22) Free T4 (Free Thyroxine) (11/07/16 11:22) Ceftriaxone Injection (Rocephin Injectio (11/07/16 14:00) Enoxaparin Injection (Lovenox Injection) (11/07/16 14:00) Vital Signs/I&O Vital Sign - Last 12Hours 11/07/16 11/07/16 11/07/16 11/07/16 18:37 19:00 19:00 20:00 Pulse 98 98 92 Resp 27 B/P 134/79 151/73 Pulse Ox 95 96 95 O2 Delivery Nasal Cannula Nasal Cannula O2 Flow Rate 3.00 2.00 2.00 11/07/16 11/07/16 11/07/16 11/07/16 20:00 21:00 22:00 22:00 Temp 101.2 Pulse 94 106 Resp 16 17 B/P 159/87 148/86 Pulse Ox 94 96 O2 Delivery Nasal Cannula Nasal Cannula O2 Flow Rate 2.00 2.00 2.00 11/07/16 11/07/16 11/08/16 11/08/16 22:26 23:00 00:00 00:00 Pulse 96 92 Resp 22 31 B/P 132/70 160/76 Pulse Ox 93 94 96 O2 Delivery Nasal Cannula Nasal Cannula O2 Flow Rate 2.00 2.00 2.00 2.00 11/08/16 11/08/16 11/08/16 11/08/16 00:00 01:00 01:00 02:00 Temp 101.6 Pulse 92 92 89 Resp 27 30 B/P 139/82 153/76 Pulse Ox 96 94 O2 Delivery Nasal Cannula Nasal Cannula O2 Flow Rate 2.00 2.00 11/08/16 11/08/16 11/08/16 11/08/16 02:00 02:12 02:22 02:42 Temp 101.6 101.6 101.3 Pulse Ox 93 O2 Flow Rate 2.00 11/08/16 11/08/16 11/08/16 11/08/16 03:00 04:00 04:00 04:00 Temp 101.0 Pulse 111 106 Resp 28 24 B/P 151/69 133/83 Pulse Ox 90 93 O2 Delivery Nasal Cannula Nasal Cannula O2 Flow Rate 2.00 2.00 2.00 11/08/16 11/08/16 05:00 06:00 Pulse 98 102 Resp 20 22 B/P 147/99 140/86 Pulse Ox 96 94 O2 Delivery Nasal Cannula Nasal Cannula O2 Flow Rate 2.00 2.00 Blood Pressure Mean: 104 Progress Note : Progress Note NO DETERIORATION IN PT'S CONDITION DURING ER STAY ECG Initial ECG Impression Time: 11:22 Initial ECG Rate: 102 Initial ECG Rhythm: S.Tach Initial ECG Comparisson: Unchanged Diagnostic Imaging Comments CT HEAD --NO ACUTE PROCESS PER RADIOLOGIST REPORT @ 1342 VIA PHONE CXR--RIGHT BASILAR PNEUMONIA PER RADIOLOGIST REPORT Reviewed: Reviewed by Me, Discussed w/Radiologist Departure Communication Progress Notes 1343-SPOKE WITH DR. CARROLL, ACCEPTS PT FOR ADMIT 1350--SPOKE WITH DR. HALL FOR CARDIOLOGY CONSULT. ADVISES SINGLE DOSE OF LOVENOX Impression Impression: Primary Impression: Altered mental status Additional Impressions: RLL pneumonia Sepsis Elevated troponin Chest pain DEHYDRATION WITH ACUTE RENAL FAILURE Chronic narcotic use PERIPHERAL VASCULAR DISEASE WITH CHRONIC LEG ULCERS Hypoxia COPD (chronic obstructive pulmonary disease) Low TSH level Disposition: 09 ADMITTED INPATIENT Condition: Stable Decision to Admit Reason: Admit from ER (General) Decision to Admit/Date: Nov 07, 2016 Time/Decision to Admit Time: 13:45 Departure-Patient Inst. Referrals: ANDREINA MESA MD (PCP) Primary Care Physician BHARATH REAVES DO Nov 08, 2016 06:25
[2016-11-08] MEDS ORDERED: FLU TRIvalent (5 YOA+) 2016-17 (AFLURIA) 0.5 ML IM ONE (07:00)
--- NOTE | 2016-11-08 07:00 | Pulmonary Consultation ---
History of Present Illness History of Present Illness Date of Consultation 11/08/16 06:55 Date of Admission Reason for Visit: Peripheral arterial disease History of Present Illness 71yo presented to ICU secondary to generalized progressive weakness, lethargy, and fever 101.5. Pt was also found to be hypoxic with Sp02 of 82%. He was diagnosed with PNA in ED and admitted to ICU. unable obtain any hx secondary to MS. All information obtained from chart. I am consulted for pulmonary/CC management. Allergies and Home Medications Allergies Coded Allergies: Sulfa (Sulfonamide Antibiotics) (Unverified Allergy, Unknown, 11/07/16) Home Medications Albuterol 17 Gm Aerosol 2 PUFF IH BID (Reported) Albuterol Sulfate/Ipratropium 3 Ml Solution 3 ML IH QID PRN PRN SHORTNESS OF BREATH (Reported) NEEDED FOR SHORTNESS OF BREATH Aspirin 81 Mg Tabec 81 MG PO DAILY (Reported) Budesonide/Formoterol Fumarate 10.2 Gm Hfa.aer.ad 2 PUFF IH BID (Reported) Carvedilol 12.5 Mg Tablet 12.5 MG PO BID (Reported) Cefadroxil Hydrate 500 Mg Capsule 500 MG PO BID (Reported) 10 DAY THERAPY FILLED 08-01-13 Citalopram Hydrobromide 20 Mg Tablet 20 MG PO DAILY (Reported) Enalapril Maleate 2.5 Mg Tablet 2.5 MG PO BID (Reported) Etodolac 400 Mg Tablet 400 MG PO BID (Reported) Gabapentin 300 Mg Cap 300 MG PO TID (Reported) Hydrochlorothiazide 25 Mg Tablet 25 MG PO DAILY (Reported) Hydrocodone Bit/Acetaminophen 1 Each Tablet 1 TAB PO TID PRN PRN PAIN (Reported ) NEEDED FOR PAIN 10-325MG TABLET Leflunomide 20 Mg Tablet 20 MG PO EVERY OTHER DAY (Reported) Leucovorin Calcium 5 Mg Tablet 5 MG PO WEEKLY ON MONDAY (Reported) TAKES ONE WEEKLY ON MONDAY AFTER METHOTREXATE Levothyroxine Sodium 175 Mcg Tablet 175 MCG PO DAILY (Reported) Methotrexate 2.5 Mg Tab 12.5 MG PO UD (Reported) TAKES 5 (2.5MG) TABLETS TWICE DAILY ONCE WEEKLY ON MONDAY Morphine Sulfate 30 Mg Tablet 30 MG PO TID (Reported) Morphine Sulfate 15 Mg Tab 15 MG PO TID (Reported) [place]-3 Acid Ethyl Esters 1 Gm Capsule 2 GM PO BID (Reported) TAKES 2 (1GM) CAPSULES TWICE DAILY Pantoprazole Sod 40 Mg Tab 40 MG PO DAILY (Reported) Pramipexole Di-Hcl 0.25 Mg Tablet 0.25 MG PO DAILY (Reported) Pravastatin Sodium 20 Mg Tablet 20 MG PO DAILY (Reported) Prednisone 5 Mg Tab 5 MG PO DAILY (Reported) Promethazine Hcl 25 Mg Tablet 25 MG PO DAILY (Reported) Tizanidine Hcl 4 Mg Capsule 4 MG PO BID (Reported) Past Sawjxdh-Yrnwsz-Hkmulc Hx Patient Social History Alcohol Use: Denies Use Recreational Drug Use: Yes (NONE FOR YEARS) Smoking Status: Current Everyday Smoker (1 09/19 PPD) Type Used: Cigarettes Recent Foreign Travel: No Contact w/Someone Who Travel: No Recent Infectious Disease Expo: No Recent Hopitalizations: No Physical Abuse Screen: No Sexual Abuse: No Immunizations Up To Date Date of Pneumonia Vaccine: Mar 04, 2013 Surgeries HX Surgeries: Yes (L KNEE REPLACEMENT, L WRIST, ANGIOPLASTY, BILATERAL OLECRANON BURSA SURGERIES; CARDIAC CATH, COLONOSCOPIES) Surgeries: Cardiac, Orthopedic Respiratory Hx Respiratory Disorders: Yes Respiratory Disorders: Chronic Bronchitis, COPD, Emphysema Cardiovascular Hx Cardiac Disorders: Yes (CHF; PULMONARY HTN) Cardiac Disorders: Coronary Artery Disease, High Cholesterol, Hypertension, Peripheral Vascular Neurological Hx Neurological Disorders: No Reproductive System Sexually Transmitted Disease: Yes (CONDYLOMA) Genitourinary Hx Genitourinary Disorders: No Gastrointestinal Hx Gastrointestinal Disorders: Yes Gastrointestinal Disorders: Gastroesophageal Reflux, Hemorrhoids Musculoskeletal Hx Musculoskeletal Disorders: Yes (RHEUMATOID ARTHRITIS/OSTEOPOROSIS; BILATERAL OLECRANON BURSITIS) Musculoskeletal Disorders: Osteoporosis, Arthritis, Rheumatoid Arthritis Endocrine Hx Endocrine Disorders: Yes Endocrine Disorders: Hypothyroidsim HEENT HX ENT Disorders: Yes (full set of dentures) Cancer Hx Cancer: No Psychosocial Hx Psychiatric Problems: Yes Behavioral Health Disorders: Anxiety Integumentary HX Skin/Integumentary Disorder: Yes (CHRONIC LEG WOUNDS ) Blood Transfusions Hx Blood Disorders: Yes (ANEMIA) Exam Exam Vital Signs Date Time Temp Pulse Resp B/P Pulse Ox O2 Delivery O2 Flow Rate FiO2 11/08/16 06:28 101.0 11/08/16 06:00 102 22 140/86 94 Nasal Cannula 2.00 11/08/16 06:00 101.0 11/08/16 05:00 98 20 147/99 96 Nasal Cannula 2.00 11/08/16 04:00 2.00 11/08/16 04:00 106 24 133/83 93 Nasal Cannula 2.00 11/08/16 04:00 101.0 11/08/16 03:00 111 28 151/69 90 Nasal Cannula 2.00 11/08/16 02:42 101.3 11/08/16 02:22 93 2.00 11/08/16 02:12 101.6 11/08/16 02:00 101.6 11/08/16 02:00 89 30 153/76 94 Nasal Cannula 2.00 11/08/16 01:00 92 11/08/16 01:00 92 27 139/82 96 Nasal Cannula 2.00 11/08/16 00:00 101.6 11/08/16 00:00 92 31 160/76 96 Nasal Cannula 2.00 11/08/16 00:00 2.00 11/07/16 23:00 96 22 132/70 94 Nasal Cannula 2.00 11/07/16 22:26 93 2.00 11/07/16 22:00 106 17 148/86 96 Nasal Cannula 2.00 11/07/16 22:00 101.2 11/07/16 21:00 94 16 159/87 94 Nasal Cannula 2.00 11/07/16 20:00 2.00 11/07/16 20:00 92 27 151/73 95 Nasal Cannula 2.00 11/07/16 19:00 98 17 134/79 96 Nasal Cannula 2.00 11/07/16 19:00 98 11/07/16 18:37 95 3.00 11/07/16 17:19 2.00 11/07/16 17:17 96 11/07/16 15:25 101.2 97 18 99 10 11/07/16 15:15 98.9 96 21 129/76 95 Nasal Cannula 2.00 11/07/16 14:45 101.2 101 23 120/65 96 Nasal Cannula 6 11/07/16 14:15 101.2 101 24 119/61 97 Nasal Cannula 6 11/07/16 13:45 101.2 96 24 119/61 95 Nasal Cannula 6 11/07/16 13:15 101.2 94 28 122/64 96 Nasal Cannula 6 11/07/16 12:45 101.2 98 17 118/74 89 Nasal Cannula 6 2/20/17 12:21 99 10 11/07/16 12:15 101.2 85 16 147/86 97 Non Rebreather 10 11/07/16 12:04 94 Nonrebreather 15 11/07/16 11:50 101.2 102 18 101/78 94 Non Rebreather 15 11/07/16 11:50 Nasal Cannula 6 11/07/16 11:45 101.2 103 18 116/71 100 Non Rebreather 10 I & O 11/08/16 07:00 Intake Total 1000 ml Output Total 4 ml Balance 996 ml General Appearance: Chronically ill Thin Other (very lethargic ) HEENT: PERRL/EOMI Other (ORAL MUCOSA DRY; EDENTULOUS) Neck: Supple Respiratory: Other (LUNG SOUNDS DIMINISHED--RIGHT > LEFT, BUT WHEEZING NOTED BILATERALLY--LEFT > RIGHT) Cardiovascular: Regular Rate, Rhythm No JVD No Murmur Other (UNABLE TO PALPATE PULSES IN FEET, BUT FEET ARE WARM AND PINK AND CAP REFILL < 5 SECONDS) Capillary Refill: Less Than 3 Seconds Extremity: Other (CHRONIC VENOUS STASIS CHANGES BILATERALLY. NO EDEMA. MULTIPLE WOUNDS TO BILATERAL LOWER LEGS WITH DRESSINGS IN PLACE--ALL ARE CLEAN AND DRY. ) Neurologic/Psychiatric: Other (MENTATION ABOVE. DOES APPEAR TO MOVE ALL EXTREMITIES, BUT IS NOT TALKING OR FOLLOWING COMMANDS) Skin: Normal Color Warm/Dry Lymphatic: No Adenopathy Results Lab Laboratory Tests 11/07/16 11:22 11/08/16 03:35 Assessment/Plan Assessment/Plan Pneumonia with sepsis -Change Abx therapy to vanco, zosyn -IVF Elevated troponin -cardiology following Metabolic encephalopathy -HEad CT is negative PAD Nonhealing foot ulcers bilaterally, hx of COPD with current tobacco use -SVNs, Oxygen Clinical Quality Measures AMI/AHF: ASA po Prior to arrival: No DVT/VTE Risk/Contraindication: Risk Factor Score Per Nursin RFS Level Per Nursing on Admit: 4+=Very High CHAYITO DE LA ROSA DO Nov 08, 2016 07:00
[2016-11-08] MEDS ORDERED: PHARMACY TO DOSE IV SCH (07:15)
--- NOTE | 2016-11-08 07:42 | Cardiology Progress Note ---
Subjective Subjective/Events-last exam patient is laying down in bed, responding by opening his eyes and saying yes or no, moving his hands, following commands, unable to provide any further history or review of system Review of Systems General: Other (Unable to provide review of systems) Objective-Cardiology Exam Last Set of Vital Signs Vital Signs 11/08/16 11/08/16 06:28 07:08 Temp 101.0 Pulse Ox 96 O2 Flow Rate 2.00 Capillary Refill : Less Than 3 Seconds I&O Bad tableGeneral: Alert, Cooperative, Severe Distress HEENT: Atraumatic, PERRLA Neck: Supple, No JVD, No Thyromegaly Lungs: Clear to Auscultation, Normal Air Movement Heart: Regular Rate, Normal S1, Normal S2, No Murmurs Abdomen: Normal Bowel Sounds, Soft, No Tenderness, No Hepatosplenomegaly, No Masses Extremities: No Clubbing, No Edema, No Tenderness/Swelling, Other (Nonhealing foot ulcers bilaterally) Skin: No Breakdown, Other (Bilateral foot ulcers) Neuro: Normal Tone Psych/Mental Status: Other (Lethargic) Results Lab Laboratory Tests 11/07/16 11:22 11/08/16 03:35 A/P-Cardiology Admission Diagnosis Acute change in mental status Pneumonia Peripheral arterial disease Coronary artery disease Assessment/Plan Acute change in mental status, probably secondary to sepsis and pneumonia, receiving IV fluid and antibiotics. Continue to monitor, managed by primary care physician Elevated troponin, no acute EKG changes, had history of cardiac catheterization done in 2011 showing [id number] disease nonobstructive disease. persistent elevation in troponin, non-ST elevation myocardial infarction, will require further evaluation once clinically more stable.continue on aspirin and add Lovenox Acute renal failure, dehydration, continue on IV fluid and monitor renal function Pneumonia, extensive right-sided pneumonia, treated with Zosyn. Continue to monitor, followed by primary care physician Nonhealing foot ulcers bilaterally, on the right side is on the outside portion of the ankle, SEAMUS on the right is 0.57, on the left side the ulcer is on the inner part of the foot, SEAMUS 0.32, planning to proceed with peripheral angiogram possible angioplasty Once clinically more stable, patient was on the schedule for angiogram for November 09, 2016, I doubt that he will be able to tolerate the procedure at this time. Coronary artery disease, last angiogram was done in November 2011 showing large dominant circumflex artery with tlum-bj-atqdgale disease, nonobstructive disease , preserved left ventricular function, no recent workup was done, I will evaluate coronary angiogram with the peripheral angiogram once patient Tolerate it History of peripheral edema, currently no edema, patient is dehydrated. Continue to monitor Hypertension, Continue to monitor blood pressure Hyperlipidemia, maintained on Pravachol, evaluate lipid profile Hyperthyroidism, history of hypothyroidism and levothyroid, managed by primary care physician History of pulmonary hypertension, I will evaluate 2-D echocardiogram. History of rheumatoid arthritis. COPD, managed and followed by primary care physician Tobaccoism, we discussed smoking cessation in length. Hypothyroidism followed and managed by primary care physician History of chronic narcotic use, urine drug screen is positive for opioids Clinical Quality Measures AMI/AHF: ASA po Prior to arrival: No DVT/VTE Risk/Contraindication: Risk Factor Score Per Nursin RFS Level Per Nursing on Admit: 4+=Very High TORY HALL MD Nov 08, 2016 07:41
[2016-11-08] MEDS: PIPERACILLIN SODIUM/TAZOBACTAM 4.5 GM in NS (IVPB) 100 ML IV NR ×2 (07:55→09:26)
[2016-11-08] MEDS ORDERED: VANCOMYCIN 1250 MG/NS 250 ML IVPB IV SCH ×2 (08:30)
--- NOTE | 2016-11-08 08:45 | Diagnostic Imaging Report ---
INDICATION: Shortness of air, infiltrate. TECHNIQUE: Single-view chest 5:27 AM. CORRELATION STUDY: 11/07/2016. FINDINGS: There has been rather significant increase in severity of rather dense consolidated infiltrate over the right mid and lower lung field most compatible with pneumonia. Left lung relatively stable. Heart size stable. Vasculature slightly increased from prior study. There has been development of a small right pleural effusion. Some fullness suggested about the right hilum largely obscured by the underlying consolidated infiltrate. IMPRESSION: Rather significant increase in the dense consolidated infiltrate most compatible with pneumonia in the right mid and lower lung field. Trace right pleural effusion. Followup imaging to resolution recommended. Dictated by: Dictated on workstation # [id number]
[2016-11-08] MEDS ORDERED: ASPIRIN E.C. 325 MG (ECOTRIN) TABLET PO SCH (09:00)
[2016-11-08] MEDS: ASPIRIN E.C. 81 MG (ECOTRIN) TAB PO SCH (09:00)
[2016-11-08] MEDS ORDERED: AZITHROMYCIN 250 MG TAB (ZITHROMAX) PO SCH (09:00)
[2016-11-08] MEDS: PANTOPRAZOLE 40 MG/10 ML (PROTONIX) VIAL IV SCH (09:25)
[2016-11-08] MEDS: ENOXAPARIN 60 MG/0.6 ML (LOVENOX) SYR SC SCH ×2 (09:26→21:20)
[2016-11-08] MEDS ORDERED: TIZA4TAB3 PO (09:43)
[2016-11-08] MEDS ORDERED: SUCR1TAB PO (09:43)
[2016-11-08] MEDS ORDERED: ONDA8TAB13 PO (09:43)
[2016-11-08] MEDS ORDERED: GABA800T2 PO (09:43)
--- NOTE | 2016-11-08 09:51 | ST Dysphagia Evaluation ---
Speech Evaluation-General Medical Diagnosis AMS, RLL Pneumonia, Sepsis Onset Date: Nov 07, 2016 Therapy Diagnosis Therapy Diagnosis: Questionable Oropharyngeal Dysphagia Precautions Precautions: Aspiration Precautions/Isolations: Fall Prevention, Standard Precautions Referral Referring Physician: Dr. Aric Davis Reason for Referral: Evaluation/Treatment Clinical Bedside Swallowing Evaluation Medical History Pertinent Medical History: Arthritis, CAD, COPD, GERD, HTN, Hypothroidism, PVD Anemia, Anxiety, Chronic Bronchitis Reviewed History: Yes Speech PLF/Current-Dysphagia Prior Level of Function The patient was unable to provide the speech pathologist with information regarding prior level of function. Subjective The patient was recently admitted to [facility] with a diagnosis of altered mental status, right lower lobe pneumonia, and sepsis. The patient is currently receiving 2L supplemental oxygen via nasal cannula. The patient's Spo2 % at baseline in 95%. The patient required consistent verbal prompting for continued participation in the evaluation. CXR: 11/07/2016: Rather significant increase in the dense consolidated infiltrate most compatible with pneumonia in the right mid and lower lung field. Trace right pleural effusion. Followup imaging to resolution recommended. Cognitive Status Patient Orientation: Person The patient did not respond to additional orientation questions (location, place , month, year). Oral Motor Skills Dentition: Edentalous (Dentures were not present at bedside.) Ability to Follow Directions: Poor The patient is currently NPO pending results of swallowing evaluation. Oral Expression Ability: Moderate Impairment Voice Voice Phonatory-Based Quality: Glottal Anderson Voice Pitch: Normal Voice Loudness: Normal Face Facial Symmetry: Symmetrical As the patient was unable to follow verbal directions from the clinician, an informal oral mechanism exam was completed. Oral-Facial Assessment Oral-Facial Dentition: Normal Labial Seal Description: Normal A white coating was present on the patient's lingual surface. Dysphagia Evaluation Consistencies Presented: Thin Liquid (Straw and Teaspoon), Mechanical Soft ( Attempted banana.), Pureed Oral Phase: Anterior Spillage 1. The patient intermittently swished water in oral cavity, expectorating the liquid on one occasion. No additional oral impairments were noted. 1. No pharyngeal impairments were noted throughout the evaluation. - Thin Liquid (via teaspoon): The patient refused straw trials, turning his head and pursing lips. The patient consumed eight teaspoons of water. No signs/ symptoms of aspiration were demonstrated. - Puree: The patient consumed four teaspoons of puree prior to refusing additional trials. No signs/symptoms of aspiration were demonstrated throughout the assessment. - Mechanical Soft: The patient refused trials of a banana, pursing his lips and turning away from the clinician. - The patient's SpO2% remained stable at 95% throughout bolus trials. Dietary Recommendations: Pureed Liquid Recommendations: Thin Swallowing Precautions: No Straw, Small Bites and Sips, Sitting 90 Degrees 30 Post Intake 1. Crush medication and place in puree for administration. 2. Alert and upright for PO. Dysphagia Evaluation Summary The patient presented with an oropharyngeal swallow function grossly within normal limits. At this time, the patient's overall alertness, altered mental status, and reduced participation results in the recommendation of a pureed diet consistency. Barriers to Learning Altered Mental Status Speech Fpc Goals Fpc Goals 1. The patient will tolerate the least restrictive diet without signs/symptoms of aspiration or laryngeal penetration. Time Frame: One Week Speech-Plan Treatment Plan Speech Therapy Treatment Plan: Continue Plan of Care Continue skilled speech services to focus on the patient's tolerance of the recommended diet consistency without signs/symptoms of aspiration. Treatment Duration: Nov 15, 2016 # of days/week One to three times per week Visits Per Week: One to three times per week Minutes/Day (M-F): 20 Rehab Potential: Guarded Safety Risks/Education Teaching Recipient: Patient Teaching Methods: Discussion Response to Teaching: Reinforcement Needed Education Topics Provided: Results, Recommendations Time Speech Therapy Time In: 09:00 Speech Therapy Time Out: 09:20 Total Billed Time: 20 Billed Treatment Time 1 MIRI PLASCENCIA Nov 08, 2016 09:51
[2016-11-08] MEDS ORDERED: ONDANSETRON 4 MG/2 ML (SDV) Z0FRAN ONE (11:47)
[2016-11-08] MEDS: ONDANSETRON 4 MG/2 ML (SDV) Z0FRAN IVP PRN ×2 (11:53→18:01)
--- NOTE | 2016-11-08 11:55 | Occupational Therapy Eval ---
OT Evaluation-General/PLF Medical Diagnosis Admission Date Nov 07, 2016 at 14:12 Medical Diagnosis: AMS, RLL Pneumonia, Sepsis Onset Date: Nov 07, 2016 Therapy Diagnosis Therapy Diagnosis: Weakness, Decreased ADL skills Height/Weight Height (Feet): 5 Height (Inches): 9.00 Weight (Pounds): 139 Weight (Ounces): 0.0 Precautions Precautions/Isolations: Fall Prevention, Standard Precautions Safety Interventions: Bed Exit Alarm, Reorient-Attempt Weight Bear Status Weight Bearing Restriction: Weight Bearing/Tolerated Referral Physician: Dr. Matias Referral Reason: Activity Tolerance, Self Care, Evaluation/Treatment, Strengthening/ROM Medical History Pertinent Medical History: Arthritis, CAD, COPD, GERD, HTN, Hypothroidism, PVD Additional Medical History Chest pain, pneumonia, AMS Current History Pt. became confused at home. Became sick and weak. Spouse called EMS. Reviewed History: Yes Social History Home: Single Level Current Living Status: Significant Other Entry Into Home: Stairs With Railing Steps Into Home: 5 ADL-Prior Level of Function ADL PLOF Comments Previous to this illness, pt. had wounds on bilateral LE. Had edema at times. Spouse states that at times she would help pt. get into bathtub. Other than that, he was able to bathe and dress self independently. DME/Equipment: Tub/Shower DME/Equipment Comments Pt. uses a cane. Drive Self: Yes OT Current Status Subjective Pt. yells out that he has pain, but does not state where it is, or his pain level. Appearance Pt. is in bed. Opens eyes intermittently, but otherwise, keeps them closed. Mental Status/Objective Patient Orientation: Unable to Assess Current Hand Dominance: Right Upper Extremity ROM Pt. is unable to follow cues to raise arms or test strength or ROM. ADL-Treatment Functional [place] Measure 0=Not Assessed/NA 4=Minimal Assistance 1=Total Assistance 5=Supervision or Setup 2=Maximal Assistance 6=Modified [place] 3=Moderate Assistance 7=Complete IndependenceIRFPAI Quality Coding Scale 6 Independent with activity with or without an assistive device 5 Patient requires set up or clean up by helper. Patient completes activity by themselves 4 Supervision or touching assist (CGA). [place] provide cues , steadying assist 3 The helper provides less than half the effort to complete the activity 2 The helper provides more than half the effort to complete the activity 1 Dependent. The helper does all the effort to complete an activity 7 Patient refused to complete or attempt activity 9 The patient did not perform the activity before the current illness or injury 88 Not attempted due to Medical conditions or safety concerns Transfers (B, C, W/C) (FIM): 1 Pt. required max x 2 for supine-sit and maintaining balance on side of bed. Pt. continued to close eyes and unable to sit upright. Required mod assist x 2 for balance on side of bed. Transferred back to supine with max x 2, and bed mobility with max x 2. Pt. positioned in bed and all needs met. Education OT Patient Education: Correct positioning, Modified ADL techniques, Progress toward Goal/Update tx plan, Purpose of tx/functional activities, Reviewed precautions, Rehab process, Transfer techniques Teaching Recipient: Patient Teaching Methods: Demonstration, Discussion Response to Teaching: Verbalize Understanding, Return Demonstration OT Short Term Goals Short Term Goals Time Frame: Nov 22, 2016 Eating(FIM): 5 Grooming(FIM): 4 Bathing(FIM): 3 Upper Body Dressing(FIM): 4 Lower Body Dressing(FIM): 3 Toileting(FIM): 4 Transfers (B,C,W/C) (FIM): 3 Toilet/Commode Transfer(FIM): 3 Additional Short Term Goals: 1-Demonstrate ADL Tasks, 2-Verbalize Understanding , 3-ImproveStrength/Juli 1=Demonstrate adherence to instructed precautions during ADL tasks. 2=Patient will verbalize/demonstrate understanding of assistive devices/ modifications for ADL. 3=Patient will improve strength/tolerance for activity to enable patient to perform ADL's. OT Nursing Home Goals Care Professionals Goals Time Frame: Dec 06, 2016 Eating (FIM): 6 Grooming(FIM): 6 Bathing(FIM): 4 Upper Body Dressing(FIM): 5 Lower Body Dressing(FIM): 5 Toileting(FIM): 5 Transfers (B,C,W/C) (FIM): 5 Toilet/Commode Transfer(FIM): 5 Additional Goals: 1-Demonstrate ADL Tasks, 2-Verbalize Understanding, 3- ImproveStrength/Juli 1=Demonstrate adherence to instructed precautions during ADL tasks. 2=Patient will verbalize/demonstrate understanding of assistive devices/ modifications for ADL. 3=Patient will improve strength/tolerance for activity to enable patient to perform ADL's. OT Education/Plan Problem List/Assessment Assessment: Decreased Activ Tolerance, Decreased UE Strength, Dependent Transfers, Impaired Bed Mobility, Impaired Funct Balance, Impaired I ADL's, Impaired Self-Care Skills, Restricted Funct UE ROM Discharge Recommendations Plan/Recommendations: Continue POC Therapy D/C Recommendations: 24 hr Supervision Comment It is difficult to determine at this time recommendations for next step in care. Target Placement At this time, pt. requires 24 hour assist. Treatment Plan/Plan of Care Treatment,Training & Education: Yes Patient would benefit from OT for education, treatment and training to promote independence in ADL's, mobility, safety and/or upper extremity function for ADL' s. Plan of Care: ADL Retraining, Caregiver Training, Functional Mobility, UE Funct Exercise/Act Treatment Duration: Dec 06, 2016 # of days/week 5-6 Agreement: Yes Rehab Potential: Guarded Time/GCodes Start Time: 10:50 Stop Time: 11:20 Total Time Billed (hr/min): 30 Billed Treatment Time 1, EVmod complexity x 15minutes, FA x 15minutes JENNI OSBORN OT Nov 08, 2016 11:55
--- NOTE | 2016-11-08 14:51 | History & Physical-Hospitalist ---
HPI History of Present Illness: HPI/Chief Complaint the patient is a 71-year-old white male brought into the emergency room febrile and Obtunded. He was noted to have right middle and right diagnosis of pneumonia with sepsis. Upon my arrival he would open his eye He did not appear to be in respiratory with oxygen his saturations were 94 perce and he was not using accessory muscle with respiratory rate of 18. The remainder his history was taken from the chart. Date Seen 11/08/16 Attending Physician Steve Matias MD PCP Berry Grajeda MD Referring Physician Date of Admission Nov 07, 2016 at 14:12 Home Medications & Allergies Home Medications Reviewed patient Home Medication Reconciliation Form Allergies Coded Allergies: Sulfa (Sulfonamide Antibiotics) (Unverified Allergy, Unknown, 11/07/16) Past Rryazvv-Lfcmuk-Szmujt Hx Patient Social History Alcohol Use: Denies Use Recreational Drug Use: Yes (NONE FOR YEARS) Smoking Status: Current Everyday Smoker (1 /2 PPD) Type Used: Cigarettes Physical Abuse Screen: No Sexual Abuse: No Recent Foreign Travel: No Contact w/other who traveled: No Recent Hopitalizations: No Recent Infectious Disease Expo: No Immunizations Up To Date Date of Pneumonia Vaccine: Mar 04, 2013 Surgeries HX Surgeries: Yes (L KNEE REPLACEMENT, L WRIST, ANGIOPLASTY, BILATERAL OLECRANON BURSA SURGERIES; CARDIAC CATH, COLONOSCOPIES) Surgeries: Cardiac, Orthopedic Respiratory Hx Respiratory Disorders: Yes Cardiovascular Hx Cardiovascular Disorders: Yes (CHF; PULMONARY HTN) Cardiac Disorders: Coronary Artery Disease, High Cholesterol, Hypertension, Peripheral Vascular Neurological Hx Neurological Disorders: No Reproductive System Sexually Transmitted Disease: Yes (CONDYLOMA) Genitourinary Hx Genitourinary Disorders: No Gastrointestinal Hx Gastrointestinal Disorders: Yes Gastrointestinal Disorders: Gastroesophageal Reflux, Hemorrhoids Musculoskeletal Hx Musculoskeletal Disorders: Yes (RHEUMATOID ARTHRITIS/OSTEOPOROSIS; BILATERAL OLECRANON BURSITIS) Musculoskeletal Disorders: Osteoporosis, Arthritis, Rheumatoid Arthritis Endocrine Hx Endocrine Disorders: Yes Endocrine Disorders: Hypothyroidsim HEENT HX ENT Disorders: Yes (full set of dentures) Cancer Hx Cancer: No Psychosocial Hx Psychiatric Problems: Yes Behavioral Health Disorders: Anxiety Integumentary HX Skin/Integumentary Disorder: Yes (CHRONIC LEG WOUNDS ) Blood Transfusions Hx Blood Disorders: Yes (ANEMIA) Review of Systems ROS-Unable to Obtain: Due to alter Mental status was unable to obtain Constitutional: no symptoms reported Physical Exam Physical Exam Vital Signs Vital Sign - Last 12Hours 11/07/16 11:45 Temp 101.2 Pulse 103 Resp 18 B/P 116/71 Pulse Ox 100 O2 Delivery Non Rebreather O2 Flow Rate 10 Capillary Refill : Less Than 3 Seconds General Appearance: No Apparent Distress Chronically ill Thin HEENT: Other (Pupils 5 mm and equal react to light face is flushed warm not diaphorecSclerae are nonicteric mucous membranes somew) Respiratory: No Accessory Muscle Use No Respiratory Distress Other (There are absent breath sounds in the right mid and lower lung pineda posteriorly and anteriorly. Few scattered rhhi are noted in the left base posterior breath sounds are somewhat diminished anterior right upper lung pineda and anteri left lung pineda are clear no wheezing is appreciated.) Cardiovascular: Regular Rate, Rhythm No Edema No Gallop No JVD No Murmur Gastrointestinal: Other (Bowel sounds pret somewhat hypoactive the abdomen is soft There is no reaction to abdominal p) Extremity: Slow Capillary Refill Other (No edema is noted the feet are cool [place] no hair is pres on the lower extremities unable to palpate dorsalis pedis posterior tibial or po) Neurologic/Psychiatric: Other (Patient moves no evidence for facial gaze is conjugate pupils al extraocular muscles appea he opens eyes and does rachelle verbal stimulation but does not resd otherwise) Skin: Warm/Dry Other (Generalized ichthyosis is noted) Results Results/Procedures Lab Laboratory Tests 11/07/16 11:22 11/08/16 03:35 Assessment/Plan Admission Diagnosis 1. Right middle and right lower lobe pneumonia suspect mucous pluggi can't rule out postobstructive process considering absent breath sounds. 2. Severe sepsis secondary to number 1 blood pressure has improved and acute kidney injury secondary to dehydra improving with fluid bolus continue IV fluids and antibiotic coverage. 3. Likely type II WA as the EKG does not show any ischemic changes will defer to Dr. Garcia. Overall prognosis is still quite poor. 4. Probable underlying significant COPD 5. Likely underlying significant peripheral vascular disease. Clinical Quality Measures AMI/AHF: ASA po Prior to arrival: No DVT/VTE Risk/Contraindication: Risk Factor Score Per Nursin RFS Level Per Nursing on Admit: 4+=Very High FLOR CARABALLO MD Nov 08, 2016 14:51
[2016-11-08] MEDS: PIPERACILLIN/TAZOBACTAM 4.5 GM/NS 100 ML IVPB IV SCH ×4 (15:17→21:20)
[2016-11-08] MEDS ORDERED: LIDOCAINE UROJET 2% GEL 10 ML PKG ONE (21:05)
[2016-11-08] MEDS: inSUlin (REGULAR) HUMAN 1 UNIT/0.01 ML (CHARGE PER UNIT) SC SCH (21:10)
[2016-11-09] VITALS (23 sets, daily range): BP systolic 104–160; BP diastolic 77–104
[2016-11-09] MEDS: NS IV 1000 ML 1,000 ML IV SCH ×3 (01:21→21:29)
[2016-11-09] MEDS: RT-ALBUTEROL/IPRATROPIUM 3 ML (DUONEB) VIAL INH SCH ×6 (02:37→22:07)
[2016-11-09 04:22] LABS: BASOPHILS % (AUTO) 0 % (0-10); EOSINOPHILS % (AUTO) 0 % (0-10); LYMPHOCYTES # (AUTO) 0.6 X 10^3 (1.0-4.0); LYMPHOCYTES % (AUTO) 8 % (12-44); MEAN CORPUSCULAR HEMOGLOBIN 28 PG (25-34); MEAN CORPUSCULAR HGB CONC 32 G/DL (32-36); MEAN CORPUSCULAR VOLUME 87 FL (80-99); MEAN PLATELET VOLUME 10.9 FL (7.4-10.4); MONOCYTES # (AUTO) 0.3 X 10^3 (0.0-1.0); MONOCYTES % (AUTO) 4 % (0-12); NEUTROPHILS # (AUTO) 6.2 X 10^3 (1.8-7.8); NEUTROPHILS % (AUTO) 88 % (42-75); PLATELET COUNT 174 10^3/uL (130-400); RED BLOOD COUNT 3.98 10^6/uL (4.35-5.85); RED CELL DISTRIBUTION WIDTH 14.5 % (10.0-14.5); WHITE BLOOD COUNT 7.1 10^3/uL (4.3-11.0)
[2016-11-09 04:31] LABS: CALCIUM 8.7 MG/DL (8.5-10.1); CREATININE SERUM 1.36 MG/DL (0.60-1.30); MAGNESIUM 2.2 MG/DL (1.8-2.4); PHOSPHORUS 2.3 MG/DL (2.3-4.7); POTASSIUM 3.1 MMOL/L (3.6-5.0)
[2016-11-09] MEDS: inSUlin (REGULAR) HUMAN 1 UNIT/0.01 ML (CHARGE PER UNIT) SC SCH ×4 (04:47→18:14)
[2016-11-09] MEDS: MAGNESIUM 1 GM/100 ML IVPB 100 ML IV SCH (04:50)
[2016-11-09] MEDS: KCL 20 MEQ TAB (K-DUR) PO SCH (04:50)
[2016-11-09] MEDS: PIPERACILLIN/TAZOBACTAM 4.5 GM/NS 100 ML IVPB IV SCH ×6 (05:29→21:29)
[2016-11-09] MEDS: POTASSIUM CL 10MEQ/50ML IVPB 50 ML IV SCH ×5 (06:00→10:12)
--- NOTE | 2016-11-09 07:41 | Pulmonary Progress Note ---
Subjective Subjective/Events-last exam PT is still very confused. Vital signs are stable. Exam Exam Vital Signs Date Time Temp Pulse Resp B/P Pulse Ox O2 Delivery O2 Flow Rate FiO2 11/09/16 07:01 100 2.00 11/09/16 06:00 94 143/85 100 Nasal Cannula 2.00 11/09/16 05:00 96 29 119/81 96 Nasal Cannula 2.00 11/09/16 04:28 99.5 11/09/16 04:00 97 2.00 11/09/16 04:00 104 35 104/77 Nasal Cannula 2.00 11/09/16 03:00 98 39 113/93 95 Nasal Cannula 2.00 11/09/16 02:37 100 2.00 11/09/16 02:00 99 30 111/80 99 Nasal Cannula 2.00 11/09/16 01:00 93 11/09/16 01:00 95 29 125/83 100 Nasal Cannula 2.00 11/09/16 00:00 97 2.00 11/08/16 23:57 100.0 91 20 116/75 99 Nasal Cannula 2.00 11/08/16 23:00 89 131/89 100 Nasal Cannula 2.00 11/08/16 22:34 99.2 11/08/16 22:00 96 131/83 90 Nasal Cannula 2.00 11/08/16 21:56 100 2.00 11/08/16 21:00 99 123/84 100 Nasal Cannula 2.00 11/08/16 20:00 96 2.00 11/08/16 19:46 101.0 93 20 140/92 98 Nasal Cannula 2.00 11/08/16 19:00 96 25 140/92 92 Nasal Cannula 2.00 11/08/16 19:00 97 11/08/16 18:50 100 2.00 11/08/16 16:00 99.2 11/08/16 15:59 95 2.00 11/08/16 14:06 100 2.00 11/08/16 13:00 91 11/08/16 12:19 99.4 93 17 126/70 100 Nasal Cannula 2.00 11/08/16 12:00 97 23 126/70 Nasal Cannula 2.00 11/08/16 11:36 95 2.00 11/08/16 11:17 2.00 11/08/16 11:00 96 28 136/91 Nasal Cannula 2.00 11/08/16 10:00 92 24 132/91 Nasal Cannula 2.00 11/08/16 09:00 98 17 137/85 97 Nasal Cannula 2.00 11/08/16 08:00 95 2.00 11/08/16 08:00 95 28 119/70 95 Nasal Cannula 2.00 I & O 11/09/16 07:00 Intake Total 1000 ml Output Total 675 ml Balance 325 ml General Appearance: No Apparent Distress Chronically ill Thin HEENT: Other (Pupils 5 mm and equal react to light face is flushed warm not diaphorecSclerae are nonicteric mucous membranes somew) Neck: Supple Respiratory: No Accessory Muscle Use No Respiratory Distress Other (There are absent breath sounds in the right mid and lower lung pineda posteriorly and anteriorly. Few scattered rhhi are noted in the left base posterior breath sounds are somewhat diminished anterior right upper lung pineda and anteri left lung pineda are clear no wheezing is appreciated.) Cardiovascular: Regular Rate, Rhythm No Edema No Gallop No JVD No Murmur Capillary Refill: Less Than 3 Seconds Extremity: Slow Capillary Refill Other (moving all extremities. ) Neurologic/Psychiatric: Other (Patient moves no evidence for facial gaze is conjugate pupils al extraocular muscles appea he opens eyes and does rachelle verbal stimulation but does not resd otherwise) Skin: Warm/Dry Other (Generalized ichthyosis is noted) Lymphatic: No Adenopathy Results Lab Laboratory Tests 11/07/16 11:22 11/08/16 03:35 11/09/16 03:26 Assessment/Plan Assessment/Plan Pneumonia with sepsis -vanco, zosyn -IVF Dysphagia with witnessed apnea per RN Elevated troponin -cardiology following Metabolic encephalopathy -HEad CT is negative Hypokalemia -replace. PAD Nonhealing foot ulcers bilaterally, hx of COPD with current tobacco use -SVNs, Oxygen Transfer pt to 4th floor with sitter. Clinical Quality Measures AMI/AHF: ASA po Prior to arrival: No DVT/VTE Risk/Contraindication: Risk Factor Score Per Nursin RFS Level Per Nursing on Admit: 4+=Very High CHAYITO DE LA ROSA DO Nov 09, 2016 07:41
[2016-11-09] MEDS: ENOXAPARIN 60 MG/0.6 ML (LOVENOX) SYR SC SCH ×2 (08:14→19:46)
[2016-11-09] MEDS: ASPIRIN E.C. 81 MG (ECOTRIN) TAB PO SCH (08:15)
[2016-11-09] MEDS: PANTOPRAZOLE 40 MG/10 ML (PROTONIX) VIAL IV SCH (08:15)
--- NOTE | 2016-11-09 08:38 | Cardiology Progress Note ---
Subjective Subjective/Events-last exam Patient in bed, more alert today, but still slightly confused. Nurse reports patient A&O x 3 this morning. Asking for ludyo. Objective-Cardiology Exam Last Set of Vital Signs Vital Signs 11/09/16 11/09/16 11/09/16 11/09/16 11/09/16 05:00 06:00 07:00 07:01 08:14 Temp 99.2 Pulse 96 Resp 29 B/P 143/85 Pulse Ox 100 O2 Delivery Nasal Cannula O2 Flow Rate 2.00 Capillary Refill : Less Than 3 Seconds I&O Intake and Output 11/09/16 00:00 Intake Total 1000 ml Output Total 353 ml Balance 647 ml Intake Oral 0 ml IV Total 1000 ml Output Urine Total 353 ml # Voids 8 # Bowel Movements 3 General: Alert, Cooperative, Severe Distress HEENT: Atraumatic, PERRLA Neck: Supple, No JVD, No Thyromegaly Lungs: Other (bilat rhonchi) Heart: Normal S1, Normal S2, No Murmurs, Other (tachycardic) Abdomen: Normal Bowel Sounds, Soft, No Tenderness, No Hepatosplenomegaly, No Masses Extremities: No Clubbing, No Edema, No Tenderness/Swelling, Other Skin: No Breakdown, Other Neuro: Normal Tone Psych/Mental Status: Other (still slightly confused) Results Lab Laboratory Tests 11/09/16 03:26 A/P-Cardiology Admission Diagnosis Acute change in mental status Pneumonia Peripheral arterial disease Coronary artery disease Assessment/Plan Acute change in mental status, probably secondary to sepsis and pneumonia, receiving IV fluid and antibiotics. Continue to monitor, managed by primary care physician Elevated troponin, no acute EKG changes, had history of cardiac catheterization done in 2011 showing tlwc-qo-euqmudyi disease nonobstructive disease. persistent elevation in troponin, non-ST elevation myocardial infarction, will require further evaluation once clinically more stable.continue on aspirin and Lovenox Congestive heart failure, EF 20% per 2D Echo. Likely ischemic in nature. Will start on beta gurpreet, DARREL-I. Planning for [facility] once more clinically stable. Acute renal failure, dehydration, continue on IV fluid and monitor renal function Pneumonia, extensive right-sided pneumonia, treated with Zosyn. Continue to monitor, followed by primary care physician Nonhealing foot ulcers bilaterally, on the right side is on the outside portion of the ankle, SEAMUS on the right is 0.57, on the left side the ulcer is on the inner part of the foot, SEAMUS 0.32, planning to proceed with peripheral angiogram possible angioplasty Once clinically more stable, patient was on the schedule for angiogram for today, I doubt that he will be able to tolerate the procedure at this time. Coronary artery disease, last angiogram was done in November 2011 showing large dominant circumflex artery with vzfl-rv-afqzpviv disease, nonobstructive disease , preserved left ventricular function, planning for further evaluation once more stable. History of peripheral edema, currently no edema, patient is dehydrated. Continue to monitor Hypertension, Continue to monitor blood pressure Hyperlipidemia, maintained on Pravachol, evaluate lipid profile Hyperthyroidism, history of hypothyroidism and levothyroid, managed by primary care physician History of pulmonary hypertension, I will evaluate 2-D echocardiogram. History of rheumatoid arthritis. COPD, managed and followed by primary care physician Tobaccoism, we discussed smoking cessation in length. Hypothyroidism followed and managed by primary care physician History of chronic narcotic use, urine drug screen is positive for opioids Clinical Quality Measures AMI/AHF: ASA po Prior to arrival: No DVT/VTE Risk/Contraindication: Risk Factor Score Per Nursin RFS Level Per Nursing on Admit: 4+=Very High FATUMA GARCES Nov 09, 2016 08:38
--- NOTE | 2016-11-09 09:07 | Diagnostic Imaging Report ---
EXAMINATION: Portable erect AP chest at 0519 hours. INDICATION: Shortness of breath. FINDINGS: The prior exam of 11/08/2016 noted an area of dense consolidation involving the right midlung and right lung base. That finding is again evident on this study. This portion of the right lung may be slightly better aerated than on the prior exam; however, in the interval since the prior study, an equally dense area of consolidation has developed in the left perihilar region. The lung apices are clear and there is still no sign of a significant pleural effusion. The heart is stable in size. The mediastinum is not widened. The osseous structures are intact. IMPRESSION: The appearance of the chest has worsened since the prior study as a new prominent area of pneumonia/atelectasis has developed in the left perihilar region. There is also persistent involvement of much of the right midlung and right lung base by pneumonia/atelectasis. A followup exam would be recommended for continued study. Dictated by: Dictated on workstation # [id number]
[2016-11-09] MEDS: VANCOMYCIN 1 GM/NS 250 ML IVPB IV SCH ×2 (09:12)
--- NOTE | 2016-11-09 09:21 | Cardiology Progress Note ---
Subjective Subjective/Events-last exam patient is more awake, lethargic, short of breath at rest. No cough, still having low grade fever Review of Systems General: No Chills, No Night Sweats, Fatigue MalaiseNo Appetite, No Other HEENT: No Head Aches, No Visual Changes, No Eye Pain, No Ear Pain, No Dysphasia , No Sinus Congestion, No Post Nasal Drip, No Sore Throat, No Other Pulmonary: Dyspnea CoughNo Pleuritic Chest Pain, No Other Cardiovascular: : Other (foot ulcer with diminished pulse)No: Chest Pain, Edema , Lt Headedness, Orthopnea, Palpitations, Paroxysmal Noc. Dyspnea Objective-Cardiology Exam Last Set of Vital Signs Vital Signs 11/09/16 11/09/16 11/09/16 11/09/16 11/09/16 05:00 06:00 07:00 07:01 08:14 Temp 99.2 Pulse 96 Resp 29 B/P 143/85 Pulse Ox 100 O2 Delivery Nasal Cannula O2 Flow Rate 2.00 Capillary Refill : Less Than 3 Seconds I&O Intake and Output 11/09/16 00:00 Intake Total 1000 ml Output Total 353 ml Balance 647 ml Intake Oral 0 ml IV Total 1000 ml Output Urine Total 353 ml # Voids 8 # Bowel Movements 3 General: Alert, Cooperative, Moderate Distress, Severe Distress HEENT: Atraumatic, PERRLA Neck: Supple, No JVD, No Thyromegaly Lungs: Other (bilat rhonchi) Heart: Normal S1, Normal S2, No Murmurs, Other (S3 is present) Abdomen: Normal Bowel Sounds, Soft, No Tenderness, No Hepatosplenomegaly, No Masses Extremities: No Clubbing, No Edema, No Tenderness/Swelling, Other (pulses detected by Doppler bilaterally, bilateral foot ulcers) Skin: No Breakdown, Other (bilateral foot ulcer) Neuro: Normal Tone Psych/Mental Status: Other (still slightly confused) Results Lab Laboratory Tests 11/09/16 03:26 A/P-Cardiology Admission Diagnosis Acute change in mental status Pneumonia Peripheral arterial disease Coronary artery disease Assessment/Plan Acute change in mental status, probably secondary to sepsis and pneumonia, receiving IV fluid and antibiotics, some improvement today, able to hold a conversation and answer appropriately. Elevated troponin, no acute EKG changes, had history of cardiac catheterization done in 2011 showing rvyn-id-wlawcubk disease nonobstructive disease. persistent elevation in troponin, non-ST elevation myocardial infarction, will require further evaluation once clinically more stable.continue on aspirin and Lovenox Congestive heart failure, EF 20% per 2D Echo. Likely ischemic in nature. Will start on beta gurpreet, DARREL-I. patient will need a cardiac catheterization once his sepsis is better, still short of breath. Acute renal failure, improving, continue on IV fluid and monitor renal function Pneumonia, extensive right-sided pneumonia, treated with Zosyn. Continue to monitor, followed by primary care physician Nonhealing foot ulcers bilaterally, on the right side is on the outside portion of the ankle, SEAMUS on the right is 0.57, on the left side the ulcer is on the inner part of the foot, SEAMUS 0.32, planning to proceed with peripheral angiogram possible angioplasty Once clinically more stable, patient was on the schedule for angiogram for today, I doubt that he will be able to tolerate the procedure at this time. Coronary artery disease, last angiogram was done in November 2011 showing large dominant circumflex artery with tcai-fz-dvmmgeij disease, nonobstructive disease , preserved left ventricular function, planning for further evaluation once more stable. History of peripheral edema, currently no edema, patient is dehydrated. Continue to monitor Hypertension, Continue to monitor blood pressure Hyperlipidemia, maintained on Pravachol, evaluate lipid profile Hyperthyroidism, history of hypothyroidism and Levothyroid, managed by primary care physician History of pulmonary hypertension, I will evaluate 2-D echocardiogram. History of rheumatoid arthritis. COPD, managed and followed by primary care physician Tobaccoism, we discussed smoking cessation in length. Hypothyroidism followed and managed by primary care physician History of chronic narcotic use, urine drug screen is positive for opioids Clinical Quality Measures AMI/AHF: ASA po Prior to arrival: No DVT/VTE Risk/Contraindication: Risk Factor Score Per Nursin RFS Level Per Nursing on Admit: 4+=Very High TORY HALL MD Nov 09, 2016 09:21
--- NOTE | 2016-11-09 10:04 | ECHOCARDIOGRAPHY REPORT ---
PROCEDURE PHYSICIAN: TORY HALL DATE OF PROCEDURE: 11/07/2016 TWO DIMENSIONAL ECHOCARDIOGRAM REPORT PRIMARY PHYSICIAN: OTHER PHYSICIAN: REFERRING PHYSICIAN: Dr. Grajeda ORDERING PHYSICIAN: INDICATION FOR THE PROCEDURE: Altered mental status, pneumonia, elevated troponin MEASUREMENTS DERIVED VALUES LV DIAMETER (LAX) NORMALS NORMALS Diastolic 5.5 (3.6-5.2) Eject. Fract. 20% (60%+/-6%) Systolic (2.3-3.9) Diastolic Vol. % Shortening (0.22-0.42) Systolic Vol. Aortic Root IVS THICKNESS Diastolic 0.9 (0.6-1.1) LVPW THICKNESS Diastolic 0.9 (0.6-1.1) LA DIAMETER Systolic 3.8 (2.1-3.7) FINDINGS: 1. Technical quality is good. 2. The left ventricle is dilated with diffuse left ventricular hypokinesia. Systolic function is reduced. Estimated ejection fraction 20%. 3. The left atrium is normal in size. No clot or thrombus were seen within the left atrium. 4. The right atrium and right ventricle are normal in size. No clot or thrombus were seen within the right side. 5. Mitral valve is normal in morphology with mild mitral regurgitation noted by color Doppler flow. No mitral valve prolapse. No mitral valve stenosis. 6. Aortic valve is mildly calcified, trileaflet with normal opening and closing pattern. No significant aortic stenosis or regurgitation was seen. 7. Tricuspid valve is normal in morphology with mild tricuspid regurgitation noted by color Doppler flow. Doppler across tricuspid valve estimated pulmonary artery pressure of 25+ right atrial pressure. 8. Pulmonic valve is functioning normally. 9. No pericardial effusion. CONCLUSION: 1. Dilated left ventricle with diffuse left ventricular hypokinesia. Systolic function is reduced. Estimated ejection fraction 20%. 2. Mild mitral and tricuspid regurgitation. 3. Estimated pulmonary artery pressure of 30 to 35 mmHg. Job ID: [id number] Dictated Date: 11/09/2016 08:18:00 Basketball Assembler Date: 11/09/2016 09:59:49 / zaira
[2016-11-09] MEDS: methylPREDNISolone 40 MG/ML (Solu-MEDROL) VIAL IV SCH ×2 (11:31→18:11)
--- NOTE | 2016-11-09 11:58 | Progress Note-Hospitalist ---
Subjective HPI/CC On Admission the patient is a 71-year-old white male brought into the emergency room febrile and Obtunded. He was noted to have right middle and right diagnosis of pneumonia with sepsis. Upon my arrival he would open his eye He did not appear to be in respiratory with oxygen his saturations were 94 perce and he was not using accessory muscle with respiratory rate of 18. The remainder his history was taken from the chart. Date Seen 11/09/16 Subjective/Events-last exam The patient would not answer any questions for me that the nurse states that he did tell her his name and knew his 's name this morning. He told her that he wanted Jello and that he denied chest pain when she asked. He opened his eyes some last night he was having chest pain he did shake his head no. Objective Exam Vital Signs Vital Sign - Last 12Hours 11/07/16 11:45 Temp 101.2 Pulse 103 Resp 18 B/P 116/71 Pulse Ox 100 O2 Delivery Non Rebreather O2 Flow Rate 10 Capillary Refill : Less Than 3 Seconds General Appearance: No Apparent Distress Respiratory: No Accessory Muscle Use No Respiratory Distress Expiration ( Bordering on Brando-Suggs pattern) Other (Absent breath sounds right mid lower lobe a few rhonchi right upper lobe and left lower lobe no wheezing appreciated) Cardiovascular: Regular Rate, Rhythm No Edema No Gallop No JVD No Murmur Results/Procedures Lab Laboratory Tests 11/09/16 03:26 Laboratory Tests 11/08/16 21:07: Glucometer 107 11/09/16 00:11: Glucometer 116H 11/09/16 03:26: Anion Gap 15H, BUN/Creatinine Ratio 27, Basophils # (Auto) 0.0, Basophils (%) ( Auto) 0, Blood Urea Nitrogen 37H, Calcium Level 8.7, Carbon Dioxide Level 22, Chloride Level 105, Creatinine 1.36H, Eosinophils # (Auto) 0.0, Eosinophils (%) (Auto) 0, Estimat Glomerular Filtration Rate 52, Glucose Level 115H, Hematocrit 35L, Hemoglobin 11.1L, Lymphocytes # (Auto) 0.6L, Lymphocytes (%) (Auto) 8L, Magnesium Level 2.2, Mean Corpuscular Hemoglobin 28, Mean Corpuscular Hemoglobin Concent 32, Mean Corpuscular Volume 87, Mean Platelet Volume 10.9H, Monocytes # (Auto) 0.3, Monocytes (%) (Auto) 4, Neutrophils # (Auto) 6.2, Neutrophils (%) (Auto) 88H, Phosphorus Level 2.3, Platelet Count 174, Potassium Level 3.1L, Red Blood Count 3.98L, Red Cell Distribution Width 14.5, Sodium Level 142, White Blood Count 7.1 11/09/16 11:33: Glucometer 116H Microbiology 11/07/16 Blood Culture - Preliminary, Resulted No growth 11/07/16 Influenza Types A,B Antigen (DIONISIO) - Final, Complete Assessment/Plan Assessment and Plan Assess & Plan/Chief Complaint 1. Sepsis secondary to right middle and right lower lobe pneumonia community- acquired improving continue broad-spectrum antibiotics blood cultures negative thus far. 2. 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 This appears to be improving. 3. Strong risk factors for coronary artery disease with likely ischemic cardiomyopathy and still suspect type II infarct. When patient condition hopefully stabilizes Dr. Garcia plans cardiac catheterization. Prognosis remains poor. 4. Hypokalemia we'll replace. FLOR CARABALLO MD Nov 09, 2016 11:58
--- NOTE | 2016-11-09 15:23 | Occupational Ther Daily Note ---
OT Current Status-Daily Note Subjective Pt. unable to verbalize pain. Keeps eyes closed throughout most of treatment, but is more verbal today than yesterday. Appearance Pt. in bed lying on side. Requires max cues to keep eyes open. Mental Status/Objective Patient Orientation: Unable to Assess Functional [place] Measure 0=Not Assessed/NA 4=Minimal Assistance 1=Total Assistance 5=Supervision or Setup 2=Maximal Assistance 6=Modified [place] 3=Moderate Assistance 7=Complete [place] Other Treatment Pt. transferred from supine-sit with max x 2. Maintained balance on side of bed with mod assist. OT was able to let pt. sit several times unsupported, approximately 30 seconds at a time. After this time, he would start to fall over and required assist to maintain sitting balance. Sat EOB approximately 5 minutes. Pt. handed a warm washcloth and with cues, was able to wash face. Transferred back to bed with max x 2. All needs met. Completed bed mobility with dependent x 2. All needs met in bed. Pt. re-positioned, and safety harness, call light, bed alarm in place. Education OT Patient Education: Correct positioning, Modified ADL techniques, Progress toward Goal/Update tx plan, Purpose of tx/functional activities, Reviewed precautions, Rehab process, Transfer techniques Teaching Recipient: Patient Teaching Methods: Demonstration, Discussion Response to Teaching: Verbalize Understanding, Return Demonstration OT Short Term Goals Short Term Goals Time Frame: Nov 22, 2016 Eating(FIM): 5 Grooming(FIM): 4 Bathing(FIM): 3 Upper Body Dressing(FIM): 4 Lower Body Dressing(FIM): 3 Toileting(FIM): 4 Transfers (B,C,W/C) (FIM): 3 Toilet/Commode Transfer(FIM): 3 Additional Short Term Goals: 1-Demonstrate ADL Tasks, 2-Verbalize Understanding , 3-ImproveStrength/Juli 1=Demonstrate adherence to instructed precautions during ADL tasks. 2=Patient will verbalize/demonstrate understanding of assistive devices/ modifications for ADL. 3=Patient will improve strength/tolerance for activity to enable patient to perform ADL's. OT Packer Goals Retirement Goals Time Frame: Dec 06, 2016 Eating (FIM): 6 Grooming(FIM): 6 Bathing(FIM): 4 Upper Body Dressing(FIM): 5 Lower Body Dressing(FIM): 5 Toileting(FIM): 5 Transfers (B,C,W/C) (FIM): 5 Toilet/Commode Transfer(FIM): 5 Additional Goals: 1-Demonstrate ADL Tasks, 2-Verbalize Understanding, 3- ImproveStrength/Juli 1=Demonstrate adherence to instructed precautions during ADL tasks. 2=Patient will verbalize/demonstrate understanding of assistive devices/ modifications for ADL. 3=Patient will improve strength/tolerance for activity to enable patient to perform ADL's. OT Education/Plan Problem List/Assessment Assessment: Decreased Activ Tolerance, Decreased Safety Aware, Decreased UE Strength, Dependent Transfers, Impaired Bed Mobility, Impaired Cognition, Impaired Coordination, Impaired Funct Balance, Impaired I ADL's, Impaired Self- Care Skills, Restricted Funct UE ROM Discharge Recommendations Plan/Recommendations: Continue POC Therapy D/C Recommendations: 24 hr Supervision Treatment Plan/Plan of Care Treatment,Training & Education: Yes Patient would benefit from OT for education, treatment and training to promote independence in ADL's, mobility, safety and/or upper extremity function for ADL' s. Plan of Care: ADL Retraining, Caregiver Training, Functional Mobility, UE Funct Exercise/Act Treatment Duration: Dec 06, 2016 Agreement: Yes Rehab Potential: Guarded Time/GCodes Start Time: 10:00 Stop Time: 10:15 Total Time Billed (hr/min): 15 Billed Treatment Time 1, JENNI COOL OT Nov 09, 2016 15:23
[2016-11-10] VITALS (17 sets, daily range): BP systolic 87–143; BP diastolic 67–135
[2016-11-10] MEDS: methylPREDNISolone 40 MG/ML (Solu-MEDROL) VIAL IV SCH ×4 (00:18→18:26)
[2016-11-10] MEDS: inSUlin (REGULAR) HUMAN 1 UNIT/0.01 ML (CHARGE PER UNIT) SC SCH ×4 (00:18→19:02)
[2016-11-10] MEDS: RT-ALBUTEROL/IPRATROPIUM 3 ML (DUONEB) VIAL INH SCH ×6 (02:16→22:00)
[2016-11-10 04:02] LABS: BASOPHILS % (AUTO) 0 % (0-10); EOSINOPHILS % (AUTO) 0 % (0-10); LYMPHOCYTES # (AUTO) 0.6 X 10^3 (1.0-4.0); LYMPHOCYTES % (AUTO) 9 % (12-44); MEAN CORPUSCULAR HEMOGLOBIN 29 PG (25-34); MEAN CORPUSCULAR HGB CONC 33 G/DL (32-36); MEAN CORPUSCULAR VOLUME 86 FL (80-99); MONOCYTES # (AUTO) 0.3 X 10^3 (0.0-1.0); MONOCYTES % (AUTO) 5 % (0-12); NEUTROPHILS # (AUTO) 6.2 X 10^3 (1.8-7.8); NEUTROPHILS % (AUTO) 87 % (42-75); PLATELET COUNT 165 10^3/uL (130-400); RED CELL DISTRIBUTION WIDTH 14.6 % (10.0-14.5); WHITE BLOOD COUNT 7.1 10^3/uL (4.3-11.0)
[2016-11-10 04:29] LABS: CALCIUM 8.7 MG/DL (8.5-10.1); CREATININE SERUM 1.27 MG/DL (0.60-1.30); MAGNESIUM 2.5 MG/DL (1.8-2.4); PHOSPHORUS 2.2 MG/DL (2.3-4.7); POTASSIUM 3.5 MMOL/L (3.6-5.0)
[2016-11-10] MEDS: PIPERACILLIN/TAZOBACTAM 4.5 GM/NS 100 ML IVPB IV SCH ×6 (05:37→21:41)
--- NOTE | 2016-11-10 07:00 | Cardiology Progress Note ---
Subjective Subjective/Events-last exam patient is laying down in bed, still short of breath, more awake, denied any chest pain. Understand his condition. Able to hold a conversation at this time , significant improvement compared to earlier this week Review of Systems General: No Chills, No Night Sweats, No Fatigue, No Malaise, No Appetite, No Other HEENT: No Head Aches, No Visual Changes, No Eye Pain, No Ear Pain, No Dysphasia , No Sinus Congestion, No Post Nasal Drip, No Sore Throat, No Other Pulmonary: DyspneaNo Cough, No Pleuritic Chest Pain, No Other Cardiovascular: : OrthopneaNo: Chest Pain, Edema, Lt Headedness, Other, Palpitations, Paroxysmal Noc. Dyspnea Objective-Cardiology Exam Last Set of Vital Signs Vital Signs 11/10/16 11/10/16 11/10/16 01:00 04:00 04:10 Temp 97.4 Pulse 96 Pulse Ox 96 O2 Flow Rate 2.00 Capillary Refill : Less Than 3 Seconds I&O Intake and Output 11/09/16 23:59 Intake Total 2040 ml Output Total 845 ml Balance 1195 ml Intake Oral 390 ml IV Total 1650 ml Output Urine Total 845 ml # Bowel Movements 2 General: Alert, Cooperative, Moderate Distress, Severe Distress HEENT: Atraumatic, PERRLA Neck: Supple, No JVD, No Thyromegaly Lungs: Other (bilat rhonchi) Heart: Normal S1, Normal S2, No Murmurs, Other (S3 is present) Abdomen: Normal Bowel Sounds, Soft, No Tenderness, No Hepatosplenomegaly, No Masses Extremities: No Clubbing, No Edema, No Tenderness/Swelling, Other (pulses detected by Doppler bilaterally, bilateral foot ulcers) Skin: No Breakdown, Other (bilateral foot ulcer) Neuro: Normal Tone Psych/Mental Status: Other (still slightly confused) Results Lab Laboratory Tests 11/10/16 03:30 A/P-Cardiology Admission Diagnosis Acute change in mental status Pneumonia Peripheral arterial disease Coronary artery disease Assessment/Plan Acute change in mental status, probably secondary to sepsis and pneumonia, anoxic encephalopathy, better at this time. Continue to monitor. Sepsis, improved with antibiotics. Feeling better. Elevated troponin, no acute EKG changes, had history of cardiac catheterization done in 2011 showing rfyj-ze-pustdfsl disease nonobstructive disease. persistent elevation in troponin, non-ST elevation myocardial infarction, planning to proceed with cardiac catheterization. Congestive heart failure, EF 20% per 2D Echo. Likely ischemic in nature. Will start on beta gurpreet, DARREL-I. planning to proceed with cardiac catheterization. Acute renal failure, improving, continue on IV fluid and monitor renal function Pneumonia, extensive right-sided pneumonia, improving on antibiotics. Continue to monitor. Nonhealing foot ulcers bilaterally, on the right side is on the outside portion of the ankle, SEAMUS on the right is 0.57, on the left side the ulcer is on the inner part of the foot, SEAMUS 0.32, planning to proceed with peripheral angiogram possible angioplasty Once clinically more stable, patient was on the schedule for angiogram for today, I doubt that he will be able to tolerate the procedure at this time. Coronary artery disease, last angiogram was done in November 2011 showing large dominant circumflex artery with kexs-lj-tvodsaec disease, nonobstructive disease , preserved left ventricular function, planning for further evaluation once more stable. History of peripheral edema, currently no edema, patient is dehydrated. Continue to monitor Hypertension, Continue to monitor blood pressure Hyperlipidemia, maintained on Pravachol, evaluate lipid profile Hyperthyroidism, history of hypothyroidism and Levothyroid, managed by primary care physician History of pulmonary hypertension, I will evaluate 2-D echocardiogram. History of rheumatoid arthritis. COPD, managed and followed by primary care physician Tobaccoism, we discussed smoking cessation in length. Hypothyroidism followed and managed by primary care physician History of chronic narcotic use, urine drug screen is positive for opioids Clinical Quality Measures AMI/AHF: ASA po Prior to arrival: No DVT/VTE Risk/Contraindication: Risk Factor Score Per Nursin RFS Level Per Nursing on Admit: 4+=Very High TORY HALL MD Nov 10, 2016 07:00
--- NOTE | 2016-11-10 07:02 | Pulmonary Progress Note ---
Subjective Subjective/Events-last exam Pt is looking better. Dr. Davis is planning cath today. Exam Exam Vital Signs Date Time Temp Pulse Resp B/P Pulse Ox O2 Delivery O2 Flow Rate FiO2 11/10/16 04:10 97.4 11/10/16 04:00 96 2.00 11/10/16 02:16 96 2.00 11/10/16 01:00 96 11/10/16 00:00 101 25 132/101 97 Nasal Cannula 2.00 11/10/16 00:00 96 2.00 11/09/16 23:00 90 29 137/95 Nasal Cannula 2.00 11/09/16 22:07 94 2.00 11/09/16 22:00 94 24 124/92 Nasal Cannula 2.00 11/09/16 21:00 96 26 131/96 100 Nasal Cannula 2.00 11/09/16 20:55 Nasal Cannula 2.00 11/09/16 20:00 112 19 122/78 Nasal Cannula 2.00 11/09/16 20:00 96 2.00 11/09/16 20:00 97.6 Nasal Cannula 2.00 11/09/16 19:00 103 24 130/99 Nasal Cannula 2.00 11/09/16 19:00 100 11/09/16 19:00 100 11/09/16 18:00 98 32 136/95 91 Nasal Cannula 2.00 11/09/16 17:00 97 26 133/90 99 Nasal Cannula 2.00 11/09/16 16:00 97.6 11/09/16 16:00 99 10 136/104 96 Nasal Cannula 2.00 11/09/16 15:00 91 25 125/92 95 Nasal Cannula 2.00 11/09/16 14:30 100 11/09/16 14:00 101 18 133/95 Nasal Cannula 2.00 11/09/16 13:00 98 29 123/99 92 Nasal Cannula 2.00 11/09/16 12:28 99.4 11/09/16 12:00 92 19 131/77 100 Nasal Cannula 2.00 11/09/16 11:12 98 11/09/16 11:00 29 104/82 Nasal Cannula 2.00 11/09/16 10:00 93 112/77 92 Nasal Cannula 2.00 11/09/16 09:00 99 123/85 Nasal Cannula 2.00 11/09/16 08:14 99.2 11/09/16 08:00 101 160/100 92 Nasal Cannula 2.00 11/09/16 07:01 100 2.00 11/09/16 07:00 90 140/93 92 Nasal Cannula 2.00 11/09/16 07:00 96 I & O 11/10/16 07:00 Intake Total 1590 ml Output Total 870 ml Balance 720 ml General Appearance: No Apparent Distress HEENT: Other (Pupils 5 mm and equal react to light face is flushed warm not diaphorecSclerae are nonicteric mucous membranes somew) Neck: Supple Respiratory: No Accessory Muscle Use No Respiratory Distress Expiration ( Bordering on Brando-Suggs pattern) Other (Absent breath sounds right mid lower lobe a few rhonchi right upper lobe and left lower lobe no wheezing appreciated) Cardiovascular: Regular Rate, Rhythm No Edema No Gallop No JVD No Murmur Capillary Refill: Less Than 3 Seconds Extremity: Slow Capillary Refill Other (moving all extremities. ) Neurologic/Psychiatric: Other (Patient moves no evidence for facial gaze is conjugate pupils al extraocular muscles appea he opens eyes and does rachelle verbal stimulation but does not resd otherwise) Skin: Warm/Dry Other (Generalized ichthyosis is noted) Lymphatic: No Adenopathy Results Lab Laboratory Tests 11/09/16 03:26 11/10/16 03:30 Assessment/Plan Assessment/Plan Pneumonia with sepsis -umesh, zosyn -IVF Dysphagia with witnessed apnea per RN Elevated troponin -cardiology following -Plan for heart cath today Metabolic encephalopathy - improving -HEad CT is negative PAD Nonhealing foot ulcers bilaterally, hx of COPD with current tobacco use -SVNs, Oxygen Clinical Quality Measures AMI/AHF: ASA po Prior to arrival: No DVT/VTE Risk/Contraindication: Risk Factor Score Per Nursin RFS Level Per Nursing on Admit: 4+=Very High CHAYITO DE LA ROSA DO Nov 10, 2016 07:02
--- NOTE | 2016-11-10 07:18 | Diagnostic Imaging Report ---
INDICATION: Shortness of breath. EXAMINATION: Portable chest at 4:33 AM. There are diffuse interstitial infiltrates in the lungs. There is some alveolar consolidation in the right infrahilar region. IMPRESSION: The distribution of the interstitial infiltrates has increased compared to the previous day. There is less alveolar consolidation in the central regions of both lungs since previous day. Dictated by: Dictated on workstation # [id number]
[2016-11-10] MEDS ORDERED: TROUGH ORDER-PHARMACY XX ONE (08:00)
[2016-11-10] MEDS: ENOXAPARIN 60 MG/0.6 ML (LOVENOX) SYR SC SCH (08:29)
[2016-11-10] MEDS: VANCOMYCIN 1 GM/NS 250 ML IVPB IV SCH ×2 (08:29)
[2016-11-10] MEDS: PANTOPRAZOLE 40 MG/10 ML (PROTONIX) VIAL IV SCH (08:29)
[2016-11-10] MEDS: ASPIRIN E.C. 81 MG (ECOTRIN) TAB PO SCH (08:29)
[2016-11-10] MEDS: NS IV 1000 ML 1,000 ML IV SCH ×3 (08:48→23:44)
--- NOTE | 2016-11-10 08:50 | Progress Note-Hospitalist ---
Subjective HPI/CC On Admission the patient is a 71-year-old white male brought into the emergency room febrile and Obtunded. He was noted to have right middle and right diagnosis of pneumonia with sepsis. Upon my arrival he would open his eye He did not appear to be in respiratory with oxygen his saturations were 94 perce and he was not using accessory muscle with respiratory rate of 18. The remainder his history was taken from the chart. Date Seen 11/10/16 Subjective/Events-last exam patient awake and alert and answering questions appropriately. He denies chest pain and reports some sputum production. Objective Exam Vital Signs Vital Sign - Last 12Hours 11/07/16 11/10/16 11:45 22:20 Temp 101.2 Pulse 103 Resp 18 B/P 116/71 Pulse Ox 100 O2 Delivery Non Rebreather O2 Flow Rate 10 FiO2 60 Capillary Refill : Less Than 3 Seconds General Appearance: No Apparent Distress Chronically ill Respiratory: Chest Non Tender No Accessory Muscle Use No Respiratory Distress Other (Scattered rhonchi throughout moving more air in the right middle and lower lung pineda.) Cardiovascular: Regular Rate, Rhythm No Edema No Gallop No JVD No Murmur Neurologic/Psychiatric: Alert Other (Oriented 2 answering simple questions appropriately) Skin: Warm/Dry Results/Procedures Lab Laboratory Tests 11/10/16 18:53 11/11/16 03:30 Assessment/Plan Assessment and Plan Assess & Plan/Chief Complaint 1. Sepsis secondary to right middle and right lower lobe pneumonia community- acquired improving continue broad-spectrum antibiotics blood cultures negative thus far. 2. 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 Significant improvement in the last 24 hours. 3. Strong risk factors for coronary artery disease with likely ischemic cardiomyopathy and still suspect type II infarct. When patient condition hopefully stabilizes Dr. Garcia plans cardiac catheterization. Prognosis remains poor. 4. Hypokalemia we'll replace. FLOR CARABALLO MD Nov 10, 2016 08:50
--- NOTE | 2016-11-10 10:51 | Occupational Ther Daily Note ---
OT Current Status-Daily Note Subjective Pt seen in room, up in bed, agreeable to OT. Pt was observed to grimace but did not answer questions about pain Appearance Alert, cooperative Mental Status/Objective Functional Nebo Measure 0=Not Assessed/NA 4=Minimal Assistance 1=Total Assistance 5=Supervision or Setup 2=Maximal Assistance 6=Modified Nebo 3=Moderate Assistance 7=Complete Nebo ADL-Treatment Pt was too fatigued to sit EOB to put slipper socks on . Pending possible heart cath today so is NPO. Nursing reported that he did eat breakfast Grooming (FIM): 5 (Pt washed face and combed hair while in bed. Required several recovery periods during activity but O2 sats at 92%.) Education OT Patient Education: Purpose of tx/functional activities OT Short Term Goals Short Term Goals Time Frame: Nov 22, 2016 Eating(FIM): 5 Grooming(FIM): 4 Bathing(FIM): 3 Upper Body Dressing(FIM): 4 Lower Body Dressing(FIM): 3 Toileting(FIM): 4 Transfers (B,C,W/C) (FIM): 3 Toilet/Commode Transfer(FIM): 3 Additional Short Term Goals: 1-Demonstrate ADL Tasks, 2-Verbalize Understanding , 3-ImproveStrength/Juli 1=Demonstrate adherence to instructed precautions during ADL tasks. 2=Patient will verbalize/demonstrate understanding of assistive devices/ modifications for ADL. 3=Patient will improve strength/tolerance for activity to enable patient to perform ADL's. OT Stopperer Assembler Goals Alf Goals Time Frame: Dec 06, 2016 Eating (FIM): 6 Grooming(FIM): 6 Bathing(FIM): 4 Upper Body Dressing(FIM): 5 Lower Body Dressing(FIM): 5 Toileting(FIM): 5 Transfers (B,C,W/C) (FIM): 5 Toilet/Commode Transfer(FIM): 5 Additional Goals: 1-Demonstrate ADL Tasks, 2-Verbalize Understanding, 3- ImproveStrength/Juli 1=Demonstrate adherence to instructed precautions during ADL tasks. 2=Patient will verbalize/demonstrate understanding of assistive devices/ modifications for ADL. 3=Patient will improve strength/tolerance for activity to enable patient to perform ADL's. OT Education/Plan Discharge Recommendations Plan/Recommendations: Continue POC Treatment Plan/Plan of Care Patient would benefit from OT for education, treatment and training to promote independence in ADL's, mobility, safety and/or upper extremity function for ADL' s. Plan of Care: ADL Retraining, Caregiver Training, Functional Mobility, UE Funct Exercise/Act Treatment Duration: Dec 06, 2016 Agreement: Yes Rehab Potential: Guarded Time/GCodes Start Time: 10:25 Stop Time: 10:40 Total Time Billed (hr/min): 15 Billed Treatment Time visit, 15 minutes ADL ERNESTINA BAUER OT Nov 10, 2016 10:51
[2016-11-10] MEDS ORDERED: NS IV 1000 ML 1,000 ML ONE (10:54)
[2016-11-10] MEDS ORDERED: HEParin (CATH LAB) 2,000 ML IV ONE (10:54)
[2016-11-10] MEDS ORDERED: LIDOCAINE 1% INJ 20 ML (XYLOCAINE) VIAL ONE (10:54)
[2016-11-10] MEDS ORDERED: fentaNYL INJECTION 100 MCG/2 ML AMP ONE (14:13)
[2016-11-10] MEDS ORDERED: MIDAZOLAM 5 MG/5 ML (VERSED) VIAL ONE (14:13)
[2016-11-10] MEDS ORDERED: FUROSEMIDE 40 MG/4 ML INJ (LASIX) IVP NR (15:45)
[2016-11-10] MEDS ORDERED: PATIENT MAY USE OWN MEDS, ALL PO SCH (15:45)
[2016-11-10] MEDS ORDERED: LORazepam INJ 2 MG/ML (ATIVAN) VIAL ONE (16:14)
[2016-11-10] MEDS ORDERED: LORazepam INJ 2 MG/ML (ATIVAN) VIAL IVP NR ×2 (16:15)
[2016-11-10] MEDS: ENALAPRIL 2.5 MG (VASOTEC) TAB PO NR ×2 (18:26→21:43)
--- NOTE | 2016-11-10 19:00 | Diagnostic Imaging Report ---
INDICATION: Shortness of air. COMPARISON: Earlier the same day. EXAMINATION: Single frontal radiographic view of the chest was obtained. FINDINGS: Continued diffuse interstitial opacities are scattered throughout. There has been interval progression of dense consolidative alveolar opacities within the right midlung and left upper lung. There is no large effusion or pneumothorax. Cardiac silhouette is stable. Pulmonary vasculature is obscured. Bony structures show no gross acute abnormality. IMPRESSION: Interval progression of bilateral alveolar consolidation superimposed on diffuse interstitial opacities. Findings could be on the basis of mixed pulmonary edema or pneumonia. ARDS is also considered. Dictated by: Dictated on workstation # [id number]
[2016-11-10 19:17] LABS: CALCIUM 8.3 MG/DL (8.5-10.1); CREATININE SERUM 1.38 MG/DL (0.60-1.30); POTASSIUM 3.2 MMOL/L (3.6-5.0)
[2016-11-10] MEDS ORDERED: VANCOMYCIN 1 GM/NS 250 ML IVPB IV SCH ×2 (20:00)
[2016-11-10] MEDS: meTOprolol TARTRATE 25 MG (LOPRESSOR) TABLET PO SCH (21:00)
[2016-11-10] MEDS ORDERED: FUROSEMIDE 40 MG/4 ML INJ (LASIX) ONE (21:24)
[2016-11-10] MEDS ORDERED: FUROSEMIDE 40 MG/4 ML INJ (LASIX) IVP ONE (21:45)
[2016-11-10 22:09] LABS: ALBUMIN 2.9 G/DL (3.2-4.5)
[2016-11-10] MEDS ORDERED: PROPOFOL DRIP (ICU) 100 ML IV ONE (22:11)
[2016-11-10 22:33] LABS: TROPONIN I 0.74 NG/ML (<0.30)
[2016-11-10] MEDS ORDERED: PANTOPRAZOLE 40 MG/10 ML (PROTONIX) VIAL IV SCH (22:45)
[2016-11-10] MEDS: fentaNYL INJECTION 100 MCG/2 ML AMP IV PRN (23:26)
[2016-11-11] VITALS (54 sets, daily range): BP systolic 70–222; BP diastolic 45–110
[2016-11-11 00:47] LABS: BILIRUBIN,URINE NEGATIVE (NEGATIVE); KETONES,URINE NEGATIVE (NEGATIVE); LEUKOCYTE ESTERASE ,URINE NEGATIVE (NEGATIVE); NITRITE,URINE NEGATIVE (NEGATIVE); PH,URINE 5 (5-9); PROTEIN,URINE 2+ (NEGATIVE); UROBILINOGEN,URINE NORMAL (NORMAL)
[2016-11-11] MEDS: methylPREDNISolone 40 MG/ML (Solu-MEDROL) VIAL IV SCH ×4 (00:57→17:09)
[2016-11-11] MEDS: inSUlin (REGULAR) HUMAN 1 UNIT/0.01 ML (CHARGE PER UNIT) SC SCH ×7 (00:58→20:51)
[2016-11-11] MEDS ORDERED: fentaNYL INJECTION 100 MCG/2 ML AMP IV ONE (01:00)
[2016-11-11] MEDS: LEVOFLOXACIN 750 MG/D5W 150 ML PRE-MIX IV SCH (01:01)
[2016-11-11] MEDS: fentaNYL INJECTION 100 MCG/2 ML AMP IV PRN ×2 (02:02→21:47)
[2016-11-11] MEDS: RT-ALBUTEROL/IPRATROPIUM 3 ML (DUONEB) VIAL INH SCH ×6 (02:06→21:50)
[2016-11-11 02:14] LABS: ABG HCO3 20 MMOL/L (23-27); ABG OXYGEN SATURATION 100 % (94-100); ABG PCO2 41 MMHG (35-45); ABG PO2 209 MMHG (79-93); ABG TCO2 20.8 MMOL/L (21.0-31.0)
[2016-11-11 02:15] LABS: ABG PH 7.29 (7.37-7.43)
[2016-11-11 02:16] LABS: ALLENS TEST YES-POS; PATIENT TEMP 97.1
[2016-11-11 03:48] LABS: BASOPHILS % (AUTO) 0 % (0-10); EOSINOPHILS % (AUTO) 0 % (0-10); LYMPHOCYTES # (AUTO) 0.6 X 10^3 (1.0-4.0); LYMPHOCYTES % (AUTO) 5 % (12-44); MEAN CORPUSCULAR HEMOGLOBIN 28 PG (25-34); MEAN CORPUSCULAR HGB CONC 33 G/DL (32-36); MEAN CORPUSCULAR VOLUME 87 FL (80-99); MEAN PLATELET VOLUME 11.3 FL (7.4-10.4); MONOCYTES # (AUTO) 0.7 X 10^3 (0.0-1.0); MONOCYTES % (AUTO) 6 % (0-12); NEUTROPHILS # (AUTO) 10.8 X 10^3 (1.8-7.8); NEUTROPHILS % (AUTO) 89 % (42-75); PLATELET COUNT 230 10^3/uL (130-400); RED BLOOD COUNT 4.17 10^6/uL (4.35-5.85); WHITE BLOOD COUNT 12.2 10^3/uL (4.3-11.0)
[2016-11-11 04:01] LABS: CALCIUM 7.4 MG/DL (8.5-10.1); CREATININE SERUM 1.55 MG/DL (0.60-1.30); MAGNESIUM 1.7 MG/DL (1.8-2.4); PHOSPHORUS 5.2 MG/DL (2.3-4.7); POTASSIUM 4.2 MMOL/L (3.6-5.0)
[2016-11-11] MEDS ORDERED: ETOMIDATE IV SOLN 20 MG/10 ML VIAL IV ONE (05:00)
[2016-11-11] MEDS ORDERED: SUCCINYLCHOLINE INJ 100 MG/5 ML SYR INJ ONE (05:00)
[2016-11-11] MEDS: PIPERACILLIN/TAZOBACTAM 4.5 GM/NS 100 ML IVPB IV SCH ×6 (05:28→22:07)
[2016-11-11] MEDS: KCL 20 MEQ TAB (K-DUR) PO SCH (05:30)
[2016-11-11] MEDS: POTASSIUM CL 10MEQ/50ML IVPB 50 ML IV SCH (05:54)
[2016-11-11] MEDS: MAGNESIUM 1 GM/100 ML IVPB 100 ML IV SCH ×2 (05:55→08:47)
--- NOTE | 2016-11-11 05:56 | Pulmonary Progress Note ---
Subjective Subjective/Events-last exam Pt went into respiratory distress last night and had to be intubated Exam Exam Vital Signs Date Time Temp Pulse Resp B/P Pulse Ox O2 Delivery O2 Flow Rate FiO2 11/11/16 05:34 118 102/64 11/11/16 05:30 124 27 100/85 97 Mechanical Ventilator 40.00 95/65 11/11/16 05:15 120 35 89/78 98 Mechanical Ventilator 40.00 97/68 11/11/16 05:00 114 33 110/74 98 Mechanical Ventilator 40.00 70/45 11/11/16 04:45 123 38 116/92 97 Mechanical Ventilator 40.00 107/75 11/11/16 04:30 130 36 81/68 97 Mechanical Ventilator 40.00 103/68 11/11/16 04:15 128 27 98/82 97 Mechanical Ventilator 40.00 93/63 11/11/16 04:00 96 40 11/11/16 04:00 97.0 128 35 222/104 96 Mechanical Ventilator 40.00 85/58 11/11/16 03:53 138 32 95 40 11/11/16 03:45 137 36 218/98 96 Mechanical Ventilator 40.00 97/65 11/11/16 03:30 137 33 194/107 96 Mechanical Ventilator 40.00 93/62 11/11/16 03:15 134 32 165/78 96 Mechanical Ventilator 40.00 99/67 11/11/16 03:00 138 32 121/96 97 Mechanical Ventilator 40.00 11/11/16 02:45 126 30 115/92 99 Mechanical Ventilator 60.00 11/11/16 02:30 125 30 113/89 99 Mechanical Ventilator 60.00 11/11/16 02:15 117 26 101/77 99 Mechanical Ventilator 60.00 11/11/16 02:06 117 27 99 60 11/11/16 02:00 124 31 105/65 99 Mechanical Ventilator 60.00 11/11/16 01:45 121 29 123/97 99 Mechanical Ventilator 60.00 11/11/16 01:30 120 29 116/92 99 Mechanical Ventilator 60.00 11/11/16 01:15 115 30 118/95 99 Mechanical Ventilator 60.00 11/11/16 01:00 115 11/11/16 01:00 117 35 123/97 99 Mechanical Ventilator 60.00 11/11/16 00:45 130 36 130/97 99 Mechanical Ventilator 60.00 11/11/16 00:30 116 29 106/92 99 Mechanical Ventilator 60.00 11/11/16 00:15 117 32 106/81 100 Mechanical Ventilator 60.00 11/11/16 00:00 98.3 124 32 130/97 98 Mechanical Ventilator 60.00 11/11/16 00:00 96 60 11/10/16 23:30 134 33 87/67 98 Mechanical Ventilator 60.00 11/10/16 23:00 110 25 87/67 100 Mechanical Ventilator 60.00 11/10/16 22:30 116 22 130/98 97 Mechanical Ventilator 100.00 11/10/16 22:30 140 11/10/16 22:20 144 26 100 60 11/10/16 22:00 106 38 Mechanical Ventilator 100.00 11/10/16 21:50 113 41 100 100.00 11/10/16 21:30 184 143/135 Non Rebreather 15.00 11/10/16 21:00 122 41 125/97 93 Nasal Cannula 5.00 11/10/16 20:30 115 28 134/103 92 Nasal Cannula 5.00 11/10/16 20:00 97.1 116 20 134/102 93 Nasal Cannula 5.00 11/10/16 20:00 94 5.00 11/10/16 19:30 114 40 132/102 93 Nasal Cannula 5.00 11/10/16 19:00 113 36 132/102 94 Nasal Cannula 5.00 11/10/16 19:00 117 11/10/16 18:33 92 5.00 11/10/16 18:00 107 35 139/103 94 Nasal Cannula 5.00 11/10/16 17:00 112 8 125/90 92 Nasal Cannula 5.00 11/10/16 16:00 94 5.00 11/10/16 16:00 111 11 124/99 93 Nasal Cannula 5.00 11/10/16 16:00 97.8 Nasal Cannula 5.00 11/10/16 14:26 91 2.00 11/10/16 12:00 98.6 103 24 119/84 94 Nasal Cannula 2.00 11/10/16 12:00 95 2.00 11/10/16 10:35 92 2.00 11/10/16 08:00 95 2.00 11/10/16 08:00 98.8 101 24 128/88 97 Nasal Cannula 2.00 11/10/16 07:07 92 2.00 I & O 11/11/16 07:00 Intake Total 2700 ml Output Total 2025 ml Balance 675 ml General Appearance: No Apparent Distress HEENT: Other (Pupils 5 mm and equal react to light face is flushed warm not diaphorecSclerae are nonicteric mucous membranes somew) Neck: Supple Respiratory: No Accessory Muscle Use No Respiratory Distress Expiration ( Bordering on Brando-Suggs pattern) Other (Absent breath sounds right mid lower lobe a few rhonchi right upper lobe and left lower lobe no wheezing appreciated) Cardiovascular: Regular Rate, Rhythm No Edema No Gallop No JVD No Murmur Capillary Refill: Less Than 3 Seconds Extremity: Slow Capillary Refill Other (moving all extremities. ) Neurologic/Psychiatric: Other (Patient moves no evidence for facial gaze is conjugate pupils al extraocular muscles appea he opens eyes and does rachelle verbal stimulation but does not resd otherwise) Skin: Warm/Dry Other (Generalized ichthyosis is noted) Lymphatic: No Adenopathy Results Lab Laboratory Tests 11/10/16 03:30 11/10/16 18:53 11/11/16 03:30 Assessment/Plan Assessment/Plan Acute respiratory failure -Now VDRF -Repeat ABG in 30min Pneumonia with sepsis -vanco, zosyn, Levaquin added last night -IVF CHF with EF of 20% -Continue lasix Dysphagia with witnessed apnea per RN Elevated troponin -cardiology following -Plan for heart cath today Metabolic encephalopathy - improving -HEad CT is negative PAD Nonhealing foot ulcers bilaterally, hx of COPD with current tobacco use -SVNs, Oxygen Overall poor prognosis. Clinical Quality Measures AMI/AHF: ASA po Prior to arrival: No DVT/VTE Risk/Contraindication: Risk Factor Score Per Nursin RFS Level Per Nursing on Admit: 4+=Very High CHAYITO DE LA ROSA DO Nov 11, 2016 05:56
[2016-11-11] MEDS ORDERED: MAGNESIUM 1 GM/100 ML IVPB 100 ML IV SCH (06:00)
[2016-11-11 06:58] LABS: ABG BASE EXCESS -5.4 MMOL/L (-2.5-2.5); ABG HCO3 20 MMOL/L (23-27); ABG OXYGEN SATURATION 97 % (94-100); ABG PCO2 43 MMHG (35-45); ABG PO2 94 MMHG (79-93); ABG TCO2 21.4 MMOL/L (21.0-31.0)
[2016-11-11 06:59] LABS: ABG PH 7.29 (7.37-7.43); ALLENS TEST YES-POS; PATIENT TEMP 98.5
[2016-11-11] MEDS ORDERED: TROUGH ORDER-PHARMACY XX NR (07:00)
[2016-11-11] MEDS ORDERED: ENOXAPARIN 40 MG/0.4 ML (LOVENOX) SYR SQ SCH (08:00)
--- NOTE | 2016-11-11 08:26 | Diagnostic Imaging Report ---
INDICATION: ET tube placement. Comparison with 11/10/2016. FINDINGS: ET tube is now present. Tube overlies tracheal shadow with the tip just above the aortic arch. NG tube is present extending below the diaphragm in the midline. There is good aeration of both lungs. Dense infiltrates are noted bilaterally. No pneumothorax. Could not exclude small pleural effusion. IMPRESSION: 1. Satisfactory tube and line placement. 2. Good aeration of the lungs with dense bilateral alveolar infiltrates. Dictated by: Dictated on workstation # [id number]
[2016-11-11] MEDS: PANTOPRAZOLE 40 MG/10 ML (PROTONIX) VIAL IV SCH (08:44)
[2016-11-11] MEDS: CHLORHEXIDINE 0.12% SOLN 15 ML (PERIDEX) UDC PO SCH ×2 (08:44→20:51)
[2016-11-11] MEDS: ENALAPRIL 2.5 MG (VASOTEC) TAB PO SCH (08:45)
[2016-11-11] MEDS: ASPIRIN E.C. 81 MG (ECOTRIN) TAB PO SCH (08:45)
[2016-11-11] MEDS: meTOprolol TARTRATE 25 MG (LOPRESSOR) TABLET PO SCH ×2 (08:45→20:52)
--- NOTE | 2016-11-11 08:56 | Occ Therapy Progress Note ---
Therapy Progress Note 8:55 Pt is on vent and sedated. Will hold OT. ERNESTINA BAUER OT Nov 11, 2016 08:56
--- NOTE | 2016-11-11 09:04 | Progress Note-Standard ---
Standard Progress Note Final Diagnosis Consulted for intubation and arterial line placement per [facility]. Report gathered from nurses and chart, pt labored breathing on bipap, supplies gathered. Etomidate 20mg IV, Sux 40 mg IV. Successful intubation x1 attempt, throat clear, grade 1 view, +ETCO2, bilateral chest rise, VSS. 20 gauge a-line placed to right radial taped and secured michelle well. Report to nurses. YULISSA ROGERS CRNA Nov 11, 2016 09:04
[2016-11-11] MEDS ORDERED: FUROSEMIDE 40 MG/4 ML INJ (LASIX) ONE (10:42)
[2016-11-11] MEDS ORDERED: meTOprolol 5 MG/5 ML (LOPRESSOR) VIAL IV ONE (10:45)
[2016-11-11] MEDS ORDERED: FUROSEMIDE 40 MG/4 ML INJ (LASIX) IVP ONE (10:45)
--- NOTE | 2016-11-11 11:49 | Progress Note-Hospitalist ---
Subjective HPI/CC On Admission the patient is a 71-year-old white male brought into the emergency room febrile and Obtunded. He was noted to have right middle and right diagnosis of pneumonia with sepsis. Upon my arrival he would open his eye He did not appear to be in respiratory with oxygen his saturations were 94 perce and he was not using accessory muscle with respiratory rate of 18. The remainder his history was taken from the chart. Date Seen 11/11/16 Subjective/Events-last exam Patient developed rather abrupt onset respiratory distress this was not around eating or episode of emesis according to nursing staff. He required intubation. Over the past several hours she's been going in and out of atrial fibrillation with rapid ventricular response. He has required propofol and unable to give history. He is currently unresponsive in sinus rhythm with a heart rate in the 105 having recently come out of atrial fibrillation or his heart rate was as high as 180. He underwent cardiac catheterization yesterday per verbal report there was nothing to intervene on although reported significant disease was noted. Objective Exam Vital Signs Vital Sign - Last 12Hours 11/07/16 11/10/16 11:45 22:20 Temp 101.2 Pulse 103 Resp 18 B/P 116/71 Pulse Ox 100 O2 Delivery Non Rebreather O2 Flow Rate 10 FiO2 60 Capillary Refill : Less Than 3 Seconds General Appearance: Chronically ill Moderate Distress Respiratory: No Accessory Muscle Use Other (Initial breast sounds noted anteriorly with scattered rhonchi and rales noted in the left base posteriorly minimal expiratory wheezing appreciated.) Cardiovascular: No Edema No Murmur Gallop/S3 Extremity: Other (Feet cool absent pulses no cyanosis appreciated) Results/Procedures Lab Laboratory Tests 11/10/16 18:53 11/11/16 03:30 Assessment/Plan Assessment and Plan Assess & Plan/Chief Complaint 1. Sepsis secondary to right middle and right lower lobe pneumonia community- acquired improving continue broad-spectrum antibiotics blood cultures negative thus far. 2. 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 Significant improvement in the last 24 hours. 3. Strong risk factors for coronary artery disease with likely ischemic cardiomyopathy and still suspect type II infarct. When patient condition hopefully stabilizes Dr. Garcia plans cardiac catheterization. Prognosis remains poor. 4. Daily ventilator dependent respiratory failure likely due to congestive heart failure on the basis of ischemic cardiomyopathy will give 40 mg of Lasix IV 5. Paroxysmal atrial fibrillation aggravated by number 4 with RVR should benefit from number 4 judicious use of beta gurpreet therapy being utilized by cardiology during congestive heart failure continue mechanical ventilation. Prognosis extremely poor. FLOR CARABALLO MD Nov 11, 2016 11:49
--- NOTE | 2016-11-11 11:55 | Diagnostic Imaging Report ---
INDICATION: Dyspnea. EXAM: Frontal chest obtained at 4:55 hours a.m. COMPARISON with 11/10/2016 FINDINGS: There is cardiomegaly. There is extensive bilateral infiltrate which appears unchanged compared to yesterday. There is no pneumothorax. There is a minimal amount of pleural fluid on the right side. ET tube and NG tube are unchanged. IMPRESSION: No significant change in bilateral infiltrates compared to the prior study. Life-support lines are stable. No new finding. Dictated by: Dictated on workstation # [id number]
[2016-11-11] MEDS ORDERED: meTOprolol TARTRATE 25 MG (LOPRESSOR) TABLET PO SCH (13:00)
--- NOTE | 2016-11-11 13:11 | CARDIAC CATHETERIZATION ---
PROCEDURE PHYSICIAN: TORY HALL DATE OF PROCEDURE: 11/10/2016 REFERRING PHYSICIAN: Dr. Grajeda BRIEF HISTORY: Mr. Shaffer is a 71-year-old gentleman who has nonhealing ulcer on his feet. He was scheduled for peripheral angiogram, possible angioplasty. He was admitted with pneumonia and acute respiratory failure. Was having encephalopathy. He has been improving. Pneumonia is improving. He was noted to have severe cardiomyopathy with elevated troponin level. I decided to proceed with coronary angiogram and evaluate his peripheral angiogram with the use of limited amount of contrast. PROCEDURE NOTE: After explaining the procedure and obtaining consent, the patient was placed on the cardiac catheterization laboratory. The right groin was prepped in a sterile fashion. Local anesthesia applied to right groin. 6-Kinyarwanda sheath was placed in the right femoral artery. Combination of right and left Leona catheter were used to access the right and left coronary system. Multiple views were obtained. Pigtail advanced to the left ventricular cavity. No left ventriculogram was done. Pullback LV to aorta was done. Then I removed the pigtail and used Rim catheter and was able to cross over to the common, left common iliac, left internal iliac artery and did runoff using 5 mL of contrast of the left lower extremity. Then the Rim catheter was removed and I did runoff of the right lower extremity through the sheath. At the end of the procedure, sheath was removed. Mynx device deployed. Hemostasis achieved. Total contrast used was 42 mL. Total radiation dosage was 200 mGy. FINDINGS: HEMODYNAMICS: LV pressure 134/33, end-diastolic pressure of 33. Aortic pressure 150/97, mean of 118. ANATOMY: 1. Left main coronary artery is moderate in size with mild disease. No significant obstructive disease. 2. Left circumflex artery is moderate in size with 40% stenosis in the mid circumflex artery, nonobstructive disease. 3. Right coronary artery is small to moderate in size with no obstructive disease. 4. No left ventriculogram was done. 5. Left lower extremity runoff showed severe stenosis at the mid SFA, popliteal artery was not well visualized due to the artificial . Below the knee there is questionable anterior tibial artery stenosis; small vessel disease distally. 6. Right lower extremity runoff done through the sheath showing moderate stenosis in the mid SFA. Severe stenosis at the popliteal artery with small vessel disease distally. CONCLUSION: 1. Mild coronary artery disease, nonobstructive disease. 2. Severe cardiomyopathy, nonischemic in nature, probably due to hypoxemia, with severely elevated left ventricular, end diastolic pressure. 3. Peripheral arterial disease involving the left SFA and popliteal artery, questionable anterior tibial artery has small vessel disease distally. 4. Right lower extremity has moderate disease in the SFA and severe disease at the popliteal artery with small vessel disease distally. DISCUSSION AND RECOMMENDATION: I will maximize medical therapy. Blood pressure appeared to be improved. Previously he was unable to tolerate beta blockers, DARREL inhibitor and/or ARB due to hypotension. I will start the patient on low dose beta blockers and low dose enalapril with parameters. In addition, I will give him a dose of Lasix and monitor BNP closely. The patient will continue on aspirin. I will decrease Lovenox dose to prophylaxis dose. Job ID: [id number] Dictated Date: 11/10/2016 15:49:37 Power Generation Technician Date: 11/11/2016 12:55:41 / [email or web address]
--- NOTE | 2016-11-11 16:16 | Cardiology Progress Note ---
Cardiology SOAP Progress Note Subjective: intubated and ventilated Objective: I&O/Vital Signs Vital Sign - Last 12Hours 11/11/16 11/11/16 11/11/16 11/11/16 04:30 04:45 05:00 05:15 Pulse 130 123 114 120 Resp 36 38 33 35 B/P 81/68 116/92 110/74 89/78 103/68 107/75 70/45 97/68 Pulse Ox 97 97 98 98 O2 Delivery Mechanical Ventilator Mechanical Ventilator Mechanical Ventilator Mechanical Ventilator O2 Flow Rate 40.00 40.00 40.00 40.00 11/11/16 11/11/16 11/11/16 11/11/16 05:30 05:34 05:45 06:00 Pulse 124 118 112 120 Resp 27 34 30 B/P 100/85 102/64 103/91 129/105 95/65 100/64 107/68 Pulse Ox 97 98 96 O2 Delivery Mechanical Ventilator Mechanical Ventilator Mechanical Ventilator O2 Flow Rate 40.00 40.00 40.00 11/11/16 11/11/16 11/11/16 11/11/16 06:01 06:15 06:30 07:00 Pulse 123 118 125 121 Resp 27 35 32 B/P 153/87 150/88 107/62 99/71 Pulse Ox 96 95 95 O2 Delivery Mechanical Ventilator Mechanical Ventilator O2 Flow Rate 40.00 40.00 FiO2 30 11/11/16 11/11/16 11/11/16 11/11/16 07:37 08:41 08:45 10:01 Temp 98.1 Pulse 117 118 103 Resp 27 31 25 B/P 122/94 127/70 Pulse Ox 96 96 97 97 O2 Delivery Mechanical Ventilator O2 Flow Rate 30.00 FiO2 30 30 30 11/11/16 11/11/16 11/11/16 11/11/16 11:30 12:00 12:18 13:00 Temp 97.3 Pulse 108 124 Resp 29 Pulse Ox 98 97 FiO2 30 30 11/11/16 14:20 Pulse 122 Resp 27 Pulse Ox 97 FiO2 30 Intake and Output 11/11/16 00:00 Intake Total 1000 ml Output Total 1125 ml Balance -125 ml Weight (Pounds): 140 Weight (Ounces): 7.0 Weight (Calculated Kilograms): 63.752423 Constitutional: other (intubated) Respiratory: chest is bilaterally symmetric lungs clear to auscultation Cardiovascular: regular rate-rhythm tachycardia S1 and S2 Gastrointestional: No tender, No soft, No round, No distended, No pulsatile mass, No organomegaly, No guarding, No rebound, No tenderness, No hernia, No mass, No audible bowel sounds, No abnormal bowel sounds, No abdominal bruits, No spleenomegaly, No other Extremities: No normal range of motion, No non-tender, No normal inspection, No pedal edema, No calf tenderness, No normal capillary refill, No pelvis stable , No calf tenderness, No inflammation, No pedal edema, No slow capillary refill , No swelling, No other, No abrasion, No clubbing, No cyanosis, No ecchymosis, No laceration, No no lower extremity edema bilateral, No significant edema, No tenderness, No wound Neurologic/Psychiatric: other (intubated) Skin: No normal color, No warm/dry, No cyanosis, No cool, No diaphoresis, No damp, No ecchymosis, No jaundice, No mottled, No pallor, No rash, No tattoos/ piercings, No ulcerations, No rash on exposed areas, No ulcerations on exposed areas, No other Results/Procedures: Labs Laboratory Tests 11/10/16 18:53: Anion Gap 16H, BUN/Creatinine Ratio 38, Blood Urea Nitrogen 52H, Calcium Level 8.3L, Carbon Dioxide Level 15L, Chloride Level 113H, Creatinine 1.38H, Estimat Glomerular Filtration Rate 51, Glucometer 171H, Glucose Level 172H, Potassium Level 3.2L, Sodium Level 144 11/10/16 19:50: B-Type Natriuretic Peptide 2933.6H 11/10/16 20:40: Albumin 2.9L, Lactic Acid Level 5.2*H, Total Creatine Kinase 145, Troponin I 0.74*H 11/11/16 00:00: Urine Bacteria FEWH, Urine Bilirubin NEGATIVE, Urine Casts PRESENT, Urine Clarity CLEAR, Urine Color YELLOW, Urine Crystals NONE, Urine Culture Indicated NO, Urine Glucose (UA) NEGATIVE, Urine Hyaline Casts 10-25H, Urine Ketones NEGATIVE, Urine Leukocyte Esterase NEGATIVE, Urine Mucus NEGATIVE, Urine Nitrite NEGATIVE, Urine Protein 2+H, Urine RBC 5-10H, Urine RBC (Auto) 2+H, Urine Specific Chappells 1.015L, Urine Squamous Epithelial Cells 2-5, Urine Urobilinogen NORMAL, Urine WBC NONE, Urine pH 5 11/11/16 00:01: Glucometer 208H 11/11/16 02:00: Jermaine Test YES-POS, Arterial Blood Base Excess -6.0L, Arterial Blood HCO3 20L, Arterial Blood Oxygen Saturation 100, Arterial Blood Partial Pressure CO2 41, Arterial Blood Partial Pressure O2 209H, Arterial Blood Total CO2 20.8L, Arterial Blood pH 7.29*L, Blood Gas Inspired Oxygen 60%, Blood Gas Patient Temperature 97.1, Blood Gas Puncture Site RIGHT RADIAL, Blood Gas Ventilator Setting YES 11/11/16 03:30: Anion Gap 14, B-Type Natriuretic Peptide 3625.3H, BUN/Creatinine Ratio 37, Basophils # (Auto) 0.0, Basophils (%) (Auto) 0, Blood Urea Nitrogen 58H, Calcium Level 7.4L, Carbon Dioxide Level 17L, Chloride Level 114H, Creatinine 1.55H, Eosinophils # (Auto) 0.0, Eosinophils (%) (Auto) 0, Estimat Glomerular Filtration Rate 45, Glucose Level 177H, Hematocrit 36L, Hemoglobin 11.8L, Lactic Acid Level 1.9, Lymphocytes # (Auto) 0.6L, Lymphocytes (%) (Auto) 5L, Magnesium Level 1.7L, Mean Corpuscular Hemoglobin 28, Mean Corpuscular Hemoglobin Concent 33, Mean Corpuscular Volume 87, Mean Platelet Volume 11.3H, Monocytes # (Auto) 0.7, Monocytes (%) (Auto) 6, Neutrophils # (Auto) 10.8H, Neutrophils (%) (Auto) 89H, Phosphorus Level 5.2H, Platelet Count 230, Potassium Level 4.2, Red Blood Count 4.17L, Red Cell Distribution Width 15.0H, Sodium Level 145, White Blood Count 12.2H 11/11/16 06:50: Jermaine Test YES-POS, Arterial Blood Base Excess -5.4L, Arterial Blood HCO3 20L, Arterial Blood Oxygen Saturation 97, Arterial Blood Partial Pressure CO2 43, Arterial Blood Partial Pressure O2 94H, Arterial Blood Total CO2 21.4, Arterial Blood pH 7.29*L, Blood Gas Inspired Oxygen 30%, Blood Gas Patient Temperature 98.5, Blood Gas Puncture Site LEFT RADIAL, Blood Gas Ventilator Setting YES 11/11/16 07:05: Lactic Acid Level 1.5, Troponin I 0.65*H 11/11/16 08:47: Glucometer 125H 11/11/16 11:33: Glucometer 127H Microbiology 11/07/16 Blood Culture - Preliminary, Resulted No growth 11/11/16 Influenza Types A,B Antigen (DIONISIO) - Final, Complete A/P: Assessment/Dx: atrial fibrillation, acute on chronic congestive heart failure, positive cardiac enzymes Plan: 1. Atrial fibrillation: Currently in sinus tachycardia. Increase beta gurpreet to 50 mg 3 times a day. Will need oral anticoagulation. 2. Acute on chronic congestive heart failure: severe cardiomyopathy, Significantly elevated BNP. We will give Lasix 80 mg IV daily. 3. Elevated creatinine: Needs to follow with nephrology. 4. Positive troponin: Likely due to atrial fibrillation and congestive heart failure. However, acute coronary syndrome due to an occluded graft cannot be ruled out. continue aspirin, DARREL inhibitor, beta gurpreet, add Lipitor 40 mg daily. Thank you for your consultation. Please call me if you have any questions. Jose Ramirez MD, FACP, FACC, FSCAI, FHRS, CCDS Interventional Cardiology Cardiac Electrophysiology Vascular Medicine and Endovascular Interventions Clinical Quality Measures AMI/AHF: ASA po Prior to arrival: Shanell Winters MD Nov 11, 2016 4:15 pm
[2016-11-11] MEDS ORDERED: FUROSEMIDE 40 MG/4 ML INJ (LASIX) IVP NR (16:45)
[2016-11-11] MEDS ORDERED: RIVAROXABAN 20 MG TABLET (XARELTO) PO SCH (17:00)
[2016-11-11] MEDS ORDERED: meTOprolol 5 MG/5 ML (LOPRESSOR) VIAL ONE (19:04)
[2016-11-11] MEDS: meTOprolol 5 MG/5 ML (LOPRESSOR) VIAL IV PRN (19:08)
[2016-11-11] MEDS: ATORVASTATIN 20 MG (LIPITOR) TABLET PO SCH (20:51)
[2016-11-11] MEDS: ACETAMINOPHEN 650 MG SUPP (TYLENOL) PR PRN (20:53)
[2016-11-12] VITALS (29 sets, daily range): BP systolic 113–153; BP diastolic 57–115
[2016-11-12] MEDS: methylPREDNISolone 40 MG/ML (Solu-MEDROL) VIAL IV SCH ×4 (00:08→18:05)
[2016-11-12 00:26] LABS: ABG BASE EXCESS -4.4 MMOL/L (-2.5-2.5); ABG HCO3 21 MMOL/L (23-27); ABG OXYGEN SATURATION 99 % (94-100); ABG PCO2 43 MMHG (35-45); ABG PO2 123 MMHG (79-93); ABG TCO2 21.7 MMOL/L (21.0-31.0)
[2016-11-12 00:27] LABS: ABG PH 7.31 (7.37-7.43); ALLENS TEST YES-POS
[2016-11-12 00:28] LABS: PATIENT TEMP 101.4
[2016-11-12] MEDS: LEVOFLOXACIN 750 MG/D5W 150 ML PRE-MIX IV SCH (00:32)
[2016-11-12] MEDS: ACETAMINOPHEN 650 MG SUPP (TYLENOL) PR PRN ×2 (00:57→11:33)
[2016-11-12] MEDS ORDERED: fentaNYL INJECTION 250 MCG/5 ML AMP IVP ONE (01:00)
[2016-11-12] MEDS ORDERED: fentaNYL INJECTION 100 MCG/2 ML AMP IVP ONE (01:15)
[2016-11-12] MEDS: RT-ALBUTEROL/IPRATROPIUM 3 ML (DUONEB) VIAL INH SCH ×6 (02:05→21:26)
[2016-11-12] MEDS: inSUlin (REGULAR) HUMAN 1 UNIT/0.01 ML (CHARGE PER UNIT) SC SCH ×6 (04:59→20:00)
[2016-11-12 05:14] LABS: ABG BASE EXCESS -2.7 MMOL/L (-2.5-2.5); ABG HCO3 22 MMOL/L (23-27); ABG OXYGEN SATURATION 99 % (94-100); ABG PCO2 37 MMHG (35-45); ABG PH 7.39 (7.37-7.43); ABG PO2 111 MMHG (79-93); ABG TCO2 22.7 MMOL/L (21.0-31.0); BASOPHILS % (AUTO) 0 % (0-10); EOSINOPHILS % (AUTO) 0 % (0-10); LYMPHOCYTES # (AUTO) 0.6 X 10^3 (1.0-4.0); LYMPHOCYTES % (AUTO) 9 % (12-44); MEAN CORPUSCULAR HEMOGLOBIN 28 PG (25-34); MEAN CORPUSCULAR HGB CONC 32 G/DL (32-36); MEAN CORPUSCULAR VOLUME 86 FL (80-99); MEAN PLATELET VOLUME 11.5 FL (7.4-10.4); MONOCYTES # (AUTO) 0.4 X 10^3 (0.0-1.0); MONOCYTES % (AUTO) 5 % (0-12); NEUTROPHILS % (AUTO) 86 % (42-75); PLATELET COUNT 232 10^3/uL (130-400); RED BLOOD COUNT 3.98 10^6/uL (4.35-5.85); RED CELL DISTRIBUTION WIDTH 15.3 % (10.0-14.5); WHITE BLOOD COUNT 6.9 10^3/uL (4.3-11.0)
[2016-11-12 05:20] LABS: ALLENS TEST YES-POS; PATIENT TEMP 98.6
[2016-11-12 05:32] LABS: CALCIUM 8.1 MG/DL (8.5-10.1); CREATININE SERUM 2.38 MG/DL (0.60-1.30); MAGNESIUM 2.7 MG/DL (1.8-2.4); PHOSPHORUS 4.3 MG/DL (2.3-4.7); POTASSIUM 3.4 MMOL/L (3.6-5.0)
[2016-11-12] MEDS: meTOprolol 5 MG/5 ML (LOPRESSOR) VIAL IV PRN (05:32)
[2016-11-12] MEDS: fentaNYL INJECTION 100 MCG/2 ML AMP IV PRN ×2 (05:33→21:50)
[2016-11-12] MEDS: MAGNESIUM 1 GM/100 ML IVPB 100 ML IV SCH (05:47)
[2016-11-12] MEDS: KCL 20 MEQ TAB (K-DUR) PO SCH (05:48)
[2016-11-12] MEDS: POTASSIUM CL 10MEQ/50ML IVPB 50 ML IV SCH ×3 (05:48→07:19)
[2016-11-12] MEDS: PIPERACILLIN/TAZOBACTAM 4.5 GM/NS 100 ML IVPB IV SCH ×6 (06:09→21:51)
--- NOTE | 2016-11-12 06:50 | Pulmonary Progress Note ---
Subjective Subjective/Events-last exam PT is stable/sedated on vent. Exam Exam Vital Signs Date Time Temp Pulse Resp B/P Pulse Ox O2 Delivery O2 Flow Rate FiO2 11/12/16 05:00 114 42 97 Mechanical Ventilator 30.00 11/12/16 04:22 114 26 97 30 11/12/16 04:00 96 30 11/12/16 04:00 98.6 11/12/16 04:00 106 45 144/79 97 Mechanical Ventilator 30.00 11/12/16 03:00 108 44 147/78 97 Mechanical Ventilator 30.00 11/12/16 02:05 105 23 96 30 11/12/16 02:00 104 29 114/61 96 Mechanical Ventilator 30.00 11/12/16 01:03 118 47 138/82 96 Mechanical Ventilator 30.00 11/12/16 01:02 120 11/12/16 00:57 101.4 11/12/16 00:30 113 44 132/72 Mechanical Ventilator 30.00 11/12/16 00:10 116 24 96 30 11/12/16 00:00 101.4 11/12/16 00:00 96 30 11/12/16 00:00 121 48 131/77 96 Mechanical Ventilator 30.00 11/11/16 23:00 122 29 134/76 96 Mechanical Ventilator 30.00 11/11/16 22:00 116 43 127/81 96 Mechanical Ventilator 30.00 11/11/16 21:50 118 26 96 30 11/11/16 21:47 100.6 11/11/16 21:46 100.6 11/11/16 21:00 129 49 141/84 96 Mechanical Ventilator 30.00 11/11/16 20:53 101.3 11/11/16 20:30 101.3 11/11/16 20:04 123 28 97 30 11/11/16 20:00 123 48 145/83 97 Mechanical Ventilator 30.00 11/11/16 20:00 96 30 11/11/16 19:26 104 11/11/16 19:00 122 44 131/78 95 Mechanical Ventilator 30.00 11/11/16 18:32 134 26 97 30 11/11/16 18:00 133 39 146/105 97 Mechanical Ventilator 30.00 11/11/16 17:00 110 40 97/72 96 Mechanical Ventilator 30.00 11/11/16 16:34 96 27 97 30 11/11/16 16:20 97 30 11/11/16 16:16 99.2 11/11/16 16:00 131 45 145/104 96 Mechanical Ventilator 30.00 11/11/16 15:00 126 43 131/110 97 Mechanical Ventilator 30.00 11/11/16 14:20 122 27 97 30 11/11/16 14:00 117 41 130/98 98 Mechanical Ventilator 30.00 11/11/16 13:00 124 11/11/16 13:00 115 41 140/105 97 Mechanical Ventilator 30.00 11/11/16 12:18 108 29 97 30 11/11/16 12:00 98 30 11/11/16 11:30 97.3 11/11/16 11:00 93 34 115/91 97 Mechanical Ventilator 30.00 11/11/16 10:01 103 25 97 30 11/11/16 10:00 102 31 112/90 97 Mechanical Ventilator 30.00 11/11/16 09:00 121 36 86/76 97 Mechanical Ventilator 30.00 11/11/16 08:45 97 30 11/11/16 08:41 98.1 118 31 122/94 96 Mechanical Ventilator 30.00 127/70 11/11/16 07:37 117 27 96 30 11/11/16 07:00 121 11/11/16 07:00 121 39 122/101 96 Mechanical Ventilator 40.00 I & O 11/12/16 07:00 Intake Total 880 ml Output Total 2140 ml Balance -1260 ml General Appearance: No Apparent Distress Chronically ill HEENT: Other (Pupils 5 mm and equal react to light face is flushed warm not diaphorecSclerae are nonicteric mucous membranes somew) Neck: Supple Respiratory: No Accessory Muscle Use Decreased Breath Sounds Wheezing Cardiovascular: No Edema No Murmur Gallop/S3 Capillary Refill: Less Than 3 Seconds Extremity: Other (Feet cool absent pulses no cyanosis appreciated) Neurologic/Psychiatric: Other (sedated on vent ) Skin: Warm/Dry Lymphatic: No Adenopathy Results Lab Laboratory Tests 11/10/16 18:53 11/11/16 03:30 11/12/16 05:05 Assessment/Plan Assessment/Plan Acute respiratory failure -VDRF -D/C diprivan and attempt vent weaning Pneumonia with sepsis -vanco, zosyn, Levaquin added last night -IVF CHF with EF of 20% -Continue lasix Acute renal failure - worsening -IVF and monitor -- increase IVF Dysphagia with witnessed apnea per RN Metabolic encephalopathy - PAD Nonhealing foot ulcers bilaterally, hx of COPD with current tobacco use -SVNs, Oxygen Overall poor prognosis. Clinical Quality Measures AMI/AHF: ASA po Prior to arrival: No DVT/VTE Risk/Contraindication: Risk Factor Score Per Nursin RFS Level Per Nursing on Admit: 4+=Very High CHAYITO DE LA ROSA DO Nov 12, 2016 06:50 RFS Level Per Nursing on Admit: 4+=Very High CHAYITO DE LA ROSA DO Nov 12, 2016 06:50
[2016-11-12] MEDS: CHLORHEXIDINE 0.12% SOLN 15 ML (PERIDEX) UDC PO SCH ×2 (08:33→20:24)
[2016-11-12] MEDS: meTOprolol TARTRATE 25 MG (LOPRESSOR) TABLET PO SCH ×3 (08:33→20:21)
[2016-11-12] MEDS: ENALAPRIL 2.5 MG (VASOTEC) TAB PO SCH (08:34)
[2016-11-12] MEDS: PANTOPRAZOLE 40 MG/10 ML (PROTONIX) VIAL IV SCH (08:34)
[2016-11-12] MEDS: ASPIRIN E.C. 81 MG (ECOTRIN) TAB PO SCH (08:34)
[2016-11-12] MEDS: FUROSEMIDE 40 MG/4 ML INJ (LASIX) IVP SCH (08:34)
--- NOTE | 2016-11-12 09:40 | Diagnostic Imaging Report ---
INDICATION: Dyspnea. Comparison made with prior examination from 11/11/16. FINDINGS: There's cardiomegaly. There is moderate central pulmonary venous congestion. There is a persistent right perihilar consolidation. ET and NG tubes are in satisfactory position. There is no pneumothorax. The mediastinum is unremarkable. IMPRESSION: Persistent right perihilar consolidation suspect for pneumonia. Cardiomegaly and moderate central pulmonary venous congestion. Dictated by: Dictated on workstation # [id number]
--- NOTE | 2016-11-12 11:41 | Progress Note-Hospitalist ---
Progress Note HPI/CC on Admission the patient is a 71-year-old white male brought into the emergency room febrile and Obtunded. He was noted to have right middle and right diagnosis of pneumonia with sepsis. Upon my arrival he would open his eye He did not appear to be in respiratory with oxygen his saturations were 94 perce and he was not using accessory muscle with respiratory rate of 18. The remainder his history was taken from the chart. Progress Notes/Assess & Plan Date Seen 11/12/16 Diagonsis/Assessment & Plan Patient doing about the same although slightly worsened on clinical exam Elevated creatinine now Low-grade fever Appreciate pulmonology critical care consultation Conferred with cardiology and he agrees that this is definitely poor prognosis Patient may need palliative care and extubation and imminent process to ensue Vitals stable, on vent, sedated Irregular irregular rhythm at 93, diminished breath sounds all pineda on vent Trace edema noted Laboratory Tests 11/12/16 05:05 Assessment: Vent-dependent respiratory failure and severe COPD and current tobacco user Acute renal failure Hypernatremia Atrial fibrillation paroxysmal-type with rapid ventricular response Plan Poor prognosis Cardiology and pulmonology consultation management appreciated Needs to be DO NOT RESUSCITATE and palliative care and hospice candidate OCTAVIO BROWN DO Nov 12, 2016 11:41
[2016-11-12] MEDS ORDERED: AMIODARONE IV SOLUTION 200 ML IV ONE (11:56)
[2016-11-12] MEDS ORDERED: AMIODARONE FOR BOLUS 150 MG in D5W 100 ML IVPB 100 ML IV NR (12:00)
[2016-11-12] MEDS: AMIODARONE IV SOLUTION 200 ML IV SCH ×2 (12:04→18:10)
[2016-11-12] MEDS ORDERED: 1/2 NS IV SOLUTION 1,000 ML IV ONE (12:15)
[2016-11-12] MEDS ORDERED: DEXMEDETOMIDINE PRE-MIX 100 ML IV ONE (12:15)
[2016-11-12] MEDS ORDERED: 1/2 NS IV SOLUTION 1,000 ML IV SCH (12:30)
--- NOTE | 2016-11-12 12:32 | Cardiology Progress Note ---
Cardiology SOAP Progress Note Objective: I&O/Vital Signs Vital Sign - Last 12Hours 11/12/16 11/12/16 11/12/16 11/12/16 00:30 00:57 01:02 01:03 Temp 101.4 Pulse 113 120 118 Resp 44 47 B/P 132/72 138/82 Pulse Ox 96 O2 Delivery Mechanical Ventilator Mechanical Ventilator O2 Flow Rate 30.00 30.00 11/12/16 11/12/16 11/12/16 11/12/16 02:00 02:05 03:00 04:00 Pulse 104 105 108 106 Resp 29 23 44 45 B/P 114/61 147/78 144/79 Pulse Ox 96 96 97 97 O2 Delivery Mechanical Ventilator Mechanical Ventilator Mechanical Ventilator O2 Flow Rate 30.00 30.00 30.00 FiO2 30 11/12/16 11/12/16 11/12/16 11/12/16 04:00 04:00 04:22 05:00 Temp 98.6 Pulse 114 114 Resp 26 42 B/P Pulse Ox 96 97 97 O2 Delivery Mechanical Ventilator O2 Flow Rate 30.00 FiO2 30 30 11/12/16 11/12/16 11/12/16 11/12/16 06:38 07:00 07:18 08:18 Pulse 98 108 108 Resp 25 42 Pulse Ox 98 98 98 FiO2 30 30 30 11/12/16 11/12/16 11/12/16 11/12/16 08:38 09:49 11:23 11:33 Temp 99.4 100.8 100.7 Pulse 126 113 Resp 20 30 B/P 153/90 Pulse Ox 98 97 O2 Delivery Mechanical Ventilator O2 Flow Rate 30.00 FiO2 30 11/12/16 12:05 Temp 100.5 Intake and Output 11/12/16 00:00 Intake Total 260 ml Output Total 1295 ml Balance -1035 ml Weight (Pounds): 137 Weight (Ounces): 7.0 Weight (Calculated Kilograms): 62.229290 Constitutional: other (intubated) Respiratory: chest is bilaterally symmetric lungs clear to auscultation Cardiovascular: regular rate-rhythm irregularly irregular tachycardia S1 and S2 Gastrointestional: No tender, No soft, No round, No distended, No pulsatile mass, No organomegaly, No guarding, No rebound, No tenderness, No hernia, No mass, No audible bowel sounds, No abnormal bowel sounds, No abdominal bruits, No spleenomegaly, No other Extremities: No normal range of motion, No non-tender, No normal inspection, No pedal edema, No calf tenderness, No normal capillary refill, No pelvis stable , No calf tenderness, No inflammation, No pedal edema, No slow capillary refill , No swelling, No other, No abrasion, No clubbing, No cyanosis, No ecchymosis, No laceration, No no lower extremity edema bilateral, No significant edema, No tenderness, No wound Neurologic/Psychiatric: other (intubated) Skin: No normal color, No warm/dry, No cyanosis, No cool, No diaphoresis, No damp, No ecchymosis, No jaundice, No mottled, No pallor, No rash, No tattoos/ piercings, No ulcerations, No rash on exposed areas, No ulcerations on exposed areas, No other Results/Procedures: Labs Laboratory Tests 11/11/16 16:15: Glucometer 150H 11/11/16 20:37: Glucometer 151H 11/12/16 00:02: Glucometer 137H 11/12/16 00:19: Jermaine Test YES-POS, Arterial Blood Base Excess -4.4L, Arterial Blood HCO3 21L, Arterial Blood Oxygen Saturation 99, Arterial Blood Partial Pressure CO2 43, Arterial Blood Partial Pressure O2 123H, Arterial Blood Total CO2 21.7, Arterial Blood pH 7.31*L, Blood Gas Inspired Oxygen 30%, Blood Gas Patient Temperature 101.4, Blood Gas Puncture Site RIGHT RADIAL, Blood Gas Ventilator Setting YES, Lactic Acid Level 1.5 11/12/16 05:05: Jermaine Test YES-POS, Anion Gap 17H, Arterial Blood Base Excess -2.7L, Arterial Blood HCO3 22L, Arterial Blood Oxygen Saturation 99, Arterial Blood Partial Pressure CO2 37, Arterial Blood Partial Pressure O2 111H, Arterial Blood Total CO2 22.7, Arterial Blood pH 7.39, B-Type Natriuretic Peptide 1832.8H, BUN/ Creatinine Ratio 36, Basophils # (Auto) 0.0, Basophils (%) (Auto) 0, Blood Gas Inspired Oxygen 30%, Blood Gas Patient Temperature 98.6, Blood Gas Puncture Site RIGHT RADIAL, Blood Gas Ventilator Setting YES, Blood Urea Nitrogen 85H, Calcium Level 8.1L, Carbon Dioxide Level 19L, Chloride Level 114H, Creatinine 2.38H, Eosinophils # (Auto) 0.0, Eosinophils (%) (Auto) 0, Estimat Glomerular Filtration Rate 27, Glucose Level 131H, Hematocrit 34L, Hemoglobin 11.1L, Lymphocytes # (Auto) 0.6L, Lymphocytes (%) (Auto) 9L, Magnesium Level 2.7H, Mean Corpuscular Hemoglobin 28, Mean Corpuscular Hemoglobin Concent 32, Mean Corpuscular Volume 86, Mean Platelet Volume 11.5H, Monocytes # (Auto) 0.4, Monocytes (%) (Auto) 5, Neutrophils # (Auto) 6.0, Neutrophils (%) (Auto) 86H, Phosphorus Level 4.3, Platelet Count 232, Potassium Level 3.4L, Red Blood Count 3.98L, Red Cell Distribution Width 15.3H, Sodium Level 150H, White Blood Count 6.9 11/12/16 08:35: Glucometer 150H 11/12/16 11:24: Glucometer 176H Microbiology 11/07/16 Blood Culture - Preliminary, Resulted No growth 11/11/16 Influenza Types A,B Antigen (DIONISIO) - Final, Complete 11/11/16 Urine Culture - Preliminary, Resulted NO GROWTH A/P: Assessment/Dx: atrial fibrillation, acute on chronic congestive heart failure, positive cardiac enzymes, critical limb ischemia, contrast-induced nephropathy, respiratory failure. Plan: 1. Atrial fibrillation: paroxysmal. on beta gurpreet. Required IV metoprolol overnight. on anticoagulation. Currently heart rate was 190 bpm. Amiodarone 150 mg bolus given and IV amiodarone infusion started. 2. Acute on chronic congestive heart failure: severe cardiomyopathy, Significantly elevated BNP. We will give Lasix 80 mg IV daily. there is some improvement as far as congestive heart failure is concerned since yesterday. Improved BNP as well as oxygenation. 3. Elevated creatinine: Needs to follow with nephrology. 4. Positive troponin: Likely due to atrial fibrillation and congestive heart failure. continue aspirin, DARREL inhibitor, beta gurpreet, add Lipitor 40 mg daily. Acute change in mental status, probably secondary to sepsis and pneumonia, anoxic encephalopathy. Continue to monitor. Sepsis Elevated troponin, no acute EKG changes, had history of cardiac catheterization done in 2011 showing [id number] disease nonobstructive disease. persistent elevation in troponin, non-ST elevation myocardial infarction. Congestive heart failure, EF 20% per 2D Echo. Likely ischemic in nature. Acute renal failure; contrast-induced nephropathy Pneumonia, extensive right-sided pneumonia, improving on antibiotics. Continue to monitor. Nonhealing foot ulcers bilaterally, on the right side is on the outside portion of the ankle, SEAMUS on the right is 0.57, on the left side the ulcer is on the inner part of the foot, SEAMUS 0.32. Coronary artery disease, last angiogram was done in November 2011 showing large dominant circumflex artery with [id number] disease, nonobstructive disease , preserved left ventricular function, planning for further evaluation once more stable. History of peripheral edema, currently no edema, patient is dehydrated. Continue to monitor Hypertension, Continue to monitor blood pressure Hyperlipidemia, maintained on Pravachol, evaluate lipid profile Hyperthyroidism, history of hypothyroidism and Levothyroid, managed by primary care physician History of pulmonary hypertension History of rheumatoid arthritis. COPD, managed and followed by primary care physician Tobaccoism, we discussed smoking cessation in length. Hypothyroidism followed and managed by primary care physician History of chronic narcotic use, urine drug screen is positive for opioids Thank you for your consultation. Please call me if you have any questions. Jose Ramirez MD, FACP, FACC, FSCAI, FHRS, CCDS Interventional Cardiology Cardiac Electrophysiology Vascular Medicine and Endovascular Interventions Clinical Quality Measures AMI/AHF: ASA po Prior to arrival: Shanell Winters MD Nov 12, 2016 12:32 pm
[2016-11-12] MEDS: NS IV 1000 ML 1,000 ML IV SCH (13:38)
[2016-11-12] MEDS: DEXMEDETOMIDINE PRE-MIX 100 ML IV SCH ×2 (13:42→23:33)
[2016-11-12] MEDS: RIVAROXABAN 15 MG TABLET (XARELTO) PO SCH (17:00)
--- NOTE | 2016-11-12 18:49 | Diagnostic Imaging Report ---
INDICATION: ET tube placement. EXAMINATION: Frontal chest was obtained at 6:40 p.m. COMPARISON: 5:22 a.m. on the same day. FINDINGS: ET tube is unchanged with tip overlying the mid trachea. NG tube is seen with tip below the film. Bilateral perihilar infiltrates, right greater than left, similar to the prior study. There is central vascular congestion with edema. There is no pneumothorax or gross pleural fluid. IMPRESSION: Life-support lines are unchanged, as above. Unchanged bilateral infiltrates and central vascular congestion with edema. Dictated by: Dictated on workstation # [id number]
[2016-11-12] MEDS: ATORVASTATIN 20 MG (LIPITOR) TABLET PO SCH (20:21)
[2016-11-13] VITALS (27 sets, daily range): BP systolic 103–166; BP diastolic 49–95
[2016-11-13] MEDS: methylPREDNISolone 40 MG/ML (Solu-MEDROL) VIAL IV SCH ×5 (00:42→23:23)
[2016-11-13] MEDS: LEVOFLOXACIN 750 MG/D5W 150 ML PRE-MIX IV SCH (00:43)
[2016-11-13] MEDS: RT-ALBUTEROL/IPRATROPIUM 3 ML (DUONEB) VIAL INH SCH ×6 (02:08→21:39)
[2016-11-13] MEDS: fentaNYL INJECTION 100 MCG/2 ML AMP IV PRN ×2 (02:24→03:50)
[2016-11-13] MEDS: inSUlin (REGULAR) HUMAN 1 UNIT/0.01 ML (CHARGE PER UNIT) SC SCH ×6 (04:00→21:59)
[2016-11-13 04:34] LABS: ABG BASE EXCESS 1.1 MMOL/L (-2.5-2.5); ABG HCO3 25 MMOL/L (23-27); ABG OXYGEN SATURATION 99 % (94-100); ABG PCO2 38 MMHG (35-45); ABG PH 7.43 (7.37-7.43); ABG PO2 124 MMHG (79-93); ABG TCO2 25.8 MMOL/L (21.0-31.0)
[2016-11-13 04:37] LABS: BASOPHILS % (AUTO) 0 % (0-10); EOSINOPHILS % (AUTO) 0 % (0-10); LYMPHOCYTES # (AUTO) 0.5 X 10^3 (1.0-4.0); LYMPHOCYTES % (AUTO) 7 % (12-44); MEAN CORPUSCULAR HEMOGLOBIN 28 PG (25-34); MEAN CORPUSCULAR HGB CONC 33 G/DL (32-36); MEAN CORPUSCULAR VOLUME 86 FL (80-99); MEAN PLATELET VOLUME 11.4 FL (7.4-10.4); MONOCYTES # (AUTO) 0.3 X 10^3 (0.0-1.0); MONOCYTES % (AUTO) 5 % (0-12); NEUTROPHILS # (AUTO) 5.5 X 10^3 (1.8-7.8); NEUTROPHILS % (AUTO) 88 % (42-75); PLATELET COUNT 262 10^3/uL (130-400); RED BLOOD COUNT 3.69 10^6/uL (4.35-5.85); RED CELL DISTRIBUTION WIDTH 15.2 % (10.0-14.5); WHITE BLOOD COUNT 6.3 10^3/uL (4.3-11.0)
[2016-11-13 04:43] LABS: ALLENS TEST YES-POS; PATIENT TEMP 100.7
[2016-11-13] MEDS: NS IV 1000 ML 1,000 ML IV SCH ×2 (04:49→14:38)
[2016-11-13 04:57] LABS: CALCIUM 7.9 MG/DL (8.5-10.1); CREATININE SERUM 2.11 MG/DL (0.60-1.30); MAGNESIUM 2.4 MG/DL (1.8-2.4); PHOSPHORUS 3.3 MG/DL (2.3-4.7); POTASSIUM 2.8 MMOL/L (3.6-5.0)
[2016-11-13] MEDS: POTASSIUM CL 10MEQ/50ML IVPB 50 ML IV SCH ×5 (06:00→10:45)
[2016-11-13] MEDS: KCL 20 MEQ TAB (K-DUR) PO SCH ×4 (06:00→23:19)
[2016-11-13] MEDS: MAGNESIUM 1 GM/100 ML IVPB 100 ML IV SCH (06:00)
[2016-11-13] MEDS: AMIODARONE IV SOLUTION 200 ML IV SCH (06:16)
[2016-11-13] MEDS: PIPERACILLIN/TAZOBACTAM 4.5 GM/NS 100 ML IVPB IV SCH ×6 (06:27→21:30)
[2016-11-13] MEDS: CHLORHEXIDINE 0.12% SOLN 15 ML (PERIDEX) UDC PO SCH ×2 (07:03→22:09)
--- NOTE | 2016-11-13 08:06 | Pulmonary Progress Note ---
Subjective Subjective/Events-last exam PT is doing better on vent. Will proceed with weaning. Exam Exam Vital Signs Date Time Temp Pulse Resp B/P Pulse Ox O2 Delivery O2 Flow Rate FiO2 11/13/16 07:00 86 11/13/16 06:00 89 12 139/95 100 Mechanical Ventilator 30.00 11/13/16 05:59 85 19 100 30 11/13/16 05:00 79 17 138/84 99 Mechanical Ventilator 30.00 11/13/16 04:10 81 21 99 30 11/13/16 04:00 98 30 11/13/16 04:00 85 17 164/72 98 Mechanical Ventilator 30.00 11/13/16 04:00 100.7 11/13/16 03:58 81 18 98 30 11/13/16 03:00 81 20 166/70 98 Mechanical Ventilator 30.00 11/13/16 02:09 80 20 99 30 11/13/16 02:00 76 18 158/71 98 Mechanical Ventilator 30.00 11/13/16 01:00 80 11/13/16 01:00 81 20 156/68 99 Mechanical Ventilator 30.00 11/13/16 00:14 80 20 99 30 11/13/16 00:00 98 30 11/13/16 00:00 100.1 79 20 153/64 98 Mechanical Ventilator 30.00 11/12/16 23:33 80 11/12/16 23:00 80 23 146/62 Mechanical Ventilator 30.00 11/12/16 22:00 81 19 146/63 97 Mechanical Ventilator 30.00 11/12/16 21:27 85 25 98 30 11/12/16 21:00 80 24 148/64 98 Mechanical Ventilator 30.00 11/12/16 20:00 98 30 11/12/16 20:00 99.5 80 29 140/63 98 Mechanical Ventilator 30.00 11/12/16 19:00 93 11/12/16 19:00 89 26 115/57 98 Mechanical Ventilator 30.00 11/12/16 18:14 89 23 98 30 11/12/16 18:00 99 46 119/82 98 Mechanical Ventilator 30.00 11/12/16 17:00 98 49 113/85 98 Mechanical Ventilator 30.00 11/12/16 16:37 104 28 97 30 11/12/16 16:20 98 30 11/12/16 16:00 107 40 130/98 98 Mechanical Ventilator 30.00 11/12/16 15:00 111 30 125/95 98 Mechanical Ventilator 30.00 11/12/16 14:34 107 21 98 30 11/12/16 14:24 100.6 11/12/16 14:00 118 44 140/109 99 Mechanical Ventilator 30.00 11/12/16 13:42 145/89 11/12/16 13:00 113 11/12/16 13:00 11 32 138/107 97 Mechanical Ventilator 30.00 11/12/16 12:39 112 28 97 30 11/12/16 12:10 98 30 11/12/16 12:05 100.5 11/12/16 12:05 100.5 11/12/16 11:33 100.7 11/12/16 11:23 100.8 11/12/16 11:00 108 47 139/99 97 Mechanical Ventilator 30.00 11/12/16 10:00 112 27 134/102 97 Mechanical Ventilator 30.00 11/12/16 09:49 113 30 97 30 11/12/16 09:00 120 30 142/115 97 Mechanical Ventilator 30.00 11/12/16 08:38 99.4 126 20 153/90 98 Mechanical Ventilator 30.00 11/12/16 08:18 98 30 I & O 11/13/16 07:00 Intake Total 1893 ml Output Total 4275 ml Balance -2382 ml General Appearance: No Apparent Distress Chronically ill HEENT: Other (Pupils 5 mm and equal react to light face is flushed warm not diaphorecSclerae are nonicteric mucous membranes somew) Neck: Supple Respiratory: No Accessory Muscle Use Decreased Breath Sounds Cardiovascular: No Edema No Murmur Gallop/S3 Capillary Refill: Less Than 3 Seconds Extremity: Other (Feet cool absent pulses no cyanosis appreciated) Skin: Warm/Dry Lymphatic: No Adenopathy Results Lab Laboratory Tests 11/12/16 05:05 11/13/16 04:20 Assessment/Plan Assessment/Plan Acute respiratory failure -VDRF -change vent to peep 5 PS 10 -Check ABG in 30 min after change - Pneumonia with sepsis -vanco, zosyn, Levaquin added last night -IVF CHF with EF of 20% Acute renal failure - worsening -IVF and monitor Dysphagia with witnessed apnea per RN Metabolic encephalopathy - PAD Nonhealing foot ulcers bilaterally, hx of COPD with current tobacco use -SVNs, Oxygen Overall poor prognosis. Clinical Quality Measures AMI/AHF: ASA po Prior to arrival: No DVT/VTE Risk/Contraindication: Risk Factor Score Per Nursin RFS Level Per Nursing on Admit: 4+=Very High CHAYITO DE LA ROSA DO Nov 13, 2016 08:06
[2016-11-13 08:42] LABS: ABG BASE EXCESS 1.1 MMOL/L (-2.5-2.5); ABG HCO3 25 MMOL/L (23-27); ABG OXYGEN SATURATION 99 % (94-100); ABG PCO2 36 MMHG (35-45); ABG PH 7.45 (7.37-7.43); ABG PO2 122 MMHG (79-93); ABG TCO2 25.6 MMOL/L (21.0-31.0)
[2016-11-13 08:43] LABS: ALLENS TEST ART LINE; PATIENT TEMP 99.5
[2016-11-13] MEDS: PANTOPRAZOLE 40 MG/10 ML (PROTONIX) VIAL IV SCH (09:03)
[2016-11-13] MEDS: meTOprolol TARTRATE 25 MG (LOPRESSOR) TABLET PO SCH ×3 (09:04→21:21)
[2016-11-13] MEDS: FUROSEMIDE 40 MG/4 ML INJ (LASIX) IVP SCH (09:04)
[2016-11-13] MEDS: ENALAPRIL 2.5 MG (VASOTEC) TAB PO SCH (09:05)
[2016-11-13] MEDS: ASPIRIN E.C. 81 MG (ECOTRIN) TAB PO SCH (09:05)
--- NOTE | 2016-11-13 09:07 | Diagnostic Imaging Report ---
INDICATION: Dyspnea. COMPARISON: 11/12/2016. FINDINGS: There is cardiomegaly. There is central pulmonary venous congestion. There are patchy bibasilar infiltrates, right greater than left. There is no pneumothorax. There are small bilateral pleural effusions. ET and NG tubes are in satisfactory positions. The mediastinum is unremarkable. IMPRESSION: Patchy bibasilar infiltrates and small bilateral pleural effusions. Cardiomegaly and central pulmonary venous congestion. Dictated by: Dictated on workstation # [id number]
[2016-11-13] MEDS: D5W W/KCL 20 MEQ/L 1,000 ML IV SCH (09:53)
--- NOTE | 2016-11-13 10:13 | Progress Note-Hospitalist ---
Progress Note HPI/CC on Admission the patient is a 71-year-old white male brought into the emergency room febrile and Obtunded. He was noted to have right middle and right diagnosis of pneumonia with sepsis. Upon my arrival he would open his eye He did not appear to be in respiratory with oxygen his saturations were 94 perce and he was not using accessory muscle with respiratory rate of 18. The remainder his history was taken from the chart. Progress Notes/Assess & Plan Date Seen 11/13/16 Diagonsis/Assessment & Plan Patient has been extubated and doing well Wants something to eat and drink Overall patient has recovered somewhat but long recovery expected Likely will require halfway placement Vitals stable, pleasant, oriented 3, actively moving continuously has one-on- one sitter Irregular irregular rhythm at 98, diminished breath sounds all pineda with mild wheezing noted Trace edema noted Laboratory Tests 11/13/16 04:20 Assessment: Vent-dependent respiratory failure and severe COPD and current tobacco user Acute renal failure improved Hypernatremia stable Atrial fibrillation paroxysmal-type with rapid ventricular response requiring amiodarone drip Hypokalemia Agitation with fall risk needing one-on-one sitter Plan Poor prognosis long-term considering the severity of his COPD and current smoking status Cardiology and pulmonology consultation management appreciated social service consult for placement OCTAVIO BROWN DO Nov 13, 2016 10:12
[2016-11-13] MEDS ORDERED: POTASSIUM CL 10MEQ/50ML IVPB 50 ML IV NR (11:29)
[2016-11-13] MEDS ORDERED: HYDROcodone/APAP 10 MG/325 MG (LORTAB) TAB PO PRN (11:45)
[2016-11-13] MEDS ORDERED: ONDANSETRON 8 MG (ZOFRAN) ORAL DISSOLVE TAB PO PRN (11:45)
[2016-11-13] MEDS ORDERED: morphine ER 30 MG (MS CONTIN) TAB PO PRN (11:45)
[2016-11-13] MEDS ORDERED: RT-ALBUTEROL/IPRATROPIUM 3 ML (DUONEB) VIAL IH PRN (11:45)
--- NOTE | 2016-11-13 12:18 | Cardiology Progress Note ---
Cardiology SOAP Progress Note Subjective: improved status today. extubated. complained of joint pain. Objective: I&O/Vital Signs Vital Sign - Last 12Hours 11/13/16 11/13/16 11/13/16 11/13/16 11:00 11:59 12:00 12:30 Temp 97.9 Pulse 78 77 Resp 17 B/P 117/80 126/83 Pulse Ox 90 93 98 O2 Delivery Nasal Cannula Nasal Cannula O2 Flow Rate 2.00 2.00 2.00 11/13/16 11/13/16 11/13/16 11/13/16 13:00 13:00 14:00 14:41 Pulse 76 77 73 Resp 10 14 B/P 119/56 132/81 Pulse Ox 94 96 97 O2 Delivery Nasal Cannula Nasal Cannula O2 Flow Rate 2.00 2.00 2.00 11/13/16 11/13/16 11/13/16 11/13/16 15:00 16:00 16:00 16:30 Temp 97.3 Pulse 66 72 Resp 11 11 B/P 131/81 114/71 Pulse Ox 98 95 98 O2 Delivery Nasal Cannula Nasal Cannula O2 Flow Rate 2.00 2.00 2.00 11/13/16 11/13/16 11/13/16 11/13/16 17:00 18:00 18:34 19:00 Pulse 73 66 71 Resp 17 35 B/P 131/75 131/78 Pulse Ox 98 93 O2 Delivery Nasal Cannula Nasal Cannula O2 Flow Rate 2.00 2.00 2.00 11/13/16 11/13/16 11/13/16 11/13/16 19:00 20:00 20:00 21:00 Temp 97.3 Pulse 67 67 71 Resp 21 13 16 B/P 103/66 113/72 116/67 Pulse Ox 99 99 98 O2 Delivery Nasal Cannula Nasal Cannula Nasal Cannula O2 Flow Rate 2.00 2.00 2.00 11/13/16 11/13/16 21:40 22:00 Pulse 61 Resp 10 B/P 108/49 Pulse Ox 98 96 O2 Delivery Nasal Cannula O2 Flow Rate 2.00 2.00 Intake and Output 11/13/16 00:00 Intake Total 1693 ml Output Total 2050 ml Balance -357 ml Weight (Pounds): 138 Weight (Ounces): 7.0 Weight (Calculated Kilograms): 62.869455 Constitutional: other (intubated) Respiratory: chest is bilaterally symmetric lungs clear to auscultation Cardiovascular: regular rate-rhythm irregularly irregular tachycardia S1 and S2 Gastrointestional: No tender, No soft, No round, No distended, No pulsatile mass, No organomegaly, No guarding, No rebound, No tenderness, No hernia, No mass, No audible bowel sounds, No abnormal bowel sounds, No abdominal bruits, No spleenomegaly, No other Extremities: No normal range of motion, No non-tender, No normal inspection, No pedal edema, No calf tenderness, No normal capillary refill, No pelvis stable , No calf tenderness, No inflammation, No pedal edema, No slow capillary refill , No swelling, No other, No abrasion, No clubbing, No cyanosis, No ecchymosis, No laceration, No no lower extremity edema bilateral, No significant edema, No tenderness, No wound Neurologic/Psychiatric: other (intubated) Skin: No normal color, No warm/dry, No cyanosis, No cool, No diaphoresis, No damp, No ecchymosis, No jaundice, No mottled, No pallor, No rash, No tattoos/ piercings, No ulcerations, No rash on exposed areas, No ulcerations on exposed areas, No other Results/Procedures: Labs Laboratory Tests 11/13/16 04:20: Jermaine Test YES-POS, Anion Gap 14, Arterial Blood Base Excess 1.1, Arterial Blood HCO3 25, Arterial Blood Oxygen Saturation 99, Arterial Blood Partial Pressure CO2 38, Arterial Blood Partial Pressure O2 124H, Arterial Blood Total CO2 25.8, Arterial Blood pH 7.43, BUN/Creatinine Ratio 38, Basophils # (Auto) 0.0, Basophils (%) (Auto) 0, Blood Gas Inspired Oxygen 30%, Blood Gas Patient Temperature 100.7, Blood Gas Puncture Site RIGHT RADIAL, Blood Gas Ventilator Setting YES, Blood Urea Nitrogen 81H, Calcium Level 7.9L, Carbon Dioxide Level 22, Chloride Level 116H, Creatinine 2.11H, Eosinophils # (Auto) 0.0, Eosinophils (%) (Auto) 0, Estimat Glomerular Filtration Rate 31, Glucose Level 204H, Hematocrit 32L, Hemoglobin 10.4L, Lymphocytes # (Auto) 0.5L, Lymphocytes ( %) (Auto) 7L, Magnesium Level 2.4, Mean Corpuscular Hemoglobin 28, Mean Corpuscular Hemoglobin Concent 33, Mean Corpuscular Volume 86, Mean Platelet Volume 11.4H, Monocytes # (Auto) 0.3, Monocytes (%) (Auto) 5, Neutrophils # ( Auto) 5.5, Neutrophils (%) (Auto) 88H, Phosphorus Level 3.3, Platelet Count 262 , Potassium Level 2.8L, Red Blood Count 3.69L, Red Cell Distribution Width 15.2H , Sodium Level 152H, White Blood Count 6.3 11/13/16 08:32: Jermaine Test ART LINE, Arterial Blood Base Excess 1.1, Arterial Blood HCO3 25, Arterial Blood Oxygen Saturation 99, Arterial Blood Partial Pressure CO2 36, Arterial Blood Partial Pressure O2 122H, Arterial Blood Total CO2 25.6, Arterial Blood pH 7.45H, Blood Gas Inspired Oxygen 30%, Blood Gas Patient Temperature 99.5, Blood Gas Puncture Site ART LINE, Blood Gas Ventilator Setting YES 11/13/16 08:57: Glucometer 174H 11/13/16 12:01: Glucometer 129H 11/13/16 16:32: Glucometer 191H 11/13/16 17:04: Potassium Level 2.7L 11/13/16 21:37: Glucometer 179H Microbiology 11/07/16 Blood Culture - Final, Complete No growth 11/11/16 Influenza Types A,B Antigen (DIONISIO) - Final, Complete 11/11/16 Urine Culture - Final, Complete NO GROWTH A/P: Assessment/Dx: atrial fibrillation, acute on chronic congestive heart failure, positive cardiac enzymes, critical limb ischemia, contrast-induced nephropathy, respiratory failure. Plan: 1. Atrial fibrillation: paroxysmal. on beta gurpreet. Required IV metoprolol overnight. on anticoagulation. heart rate improved. complete iv amiodarone 2. Acute on chronic congestive heart failure: severe cardiomyopathy, Significantly elevated BNP. We will give Lasix 80 mg IV daily. there is some improvement as far as congestive heart failure is concerned since yesterday. Improved BNP as well as oxygenation. 3. Elevated creatinine: Needs to follow with nephrology. 4. Positive troponin: Likely due to atrial fibrillation and congestive heart failure. continue aspirin, DARREL inhibitor, beta gurpreet, add Lipitor 40 mg daily. Acute change in mental status, probably secondary to sepsis and pneumonia, anoxic encephalopathy. Continue to monitor. Sepsis Elevated troponin, no acute EKG changes, had history of cardiac catheterization done in 2011 showing [id number]-[id number] disease nonobstructive disease. persistent elevation in troponin, non-ST elevation myocardial infarction. Congestive heart failure, EF 20% per 2D Echo. Likely ischemic in nature. Acute renal failure; contrast-induced nephropathy Pneumonia, extensive right-sided pneumonia, improving on antibiotics. Dr Davis to take over care tomorrow. Thank you for your consultation. Please call me if you have any questions. Jose Ramirez MD, FACP, FACC, FSCAI, FHRS, CCDS Interventional Cardiology Cardiac Electrophysiology Vascular Medicine and Endovascular Interventions Clinical Quality Measures AMI/AHF: ASA po Prior to arrival: Shanell Winters MD Nov 13, 2016 12:18 Hyperlipidemia, maintained on Pravachol, evaluate lipid profile Hyperthyroidism, history of hypothyroidism and Levothyroid, managed by primary care physician History of pulmonary hypertension History of rheumatoid arthritis. COPD, managed and followed by primary care physician Tobaccoism, we discussed smoking cessation in length. Hypothyroidism followed and managed by primary care physician History of chronic narcotic use, urine drug screen is positive for opioids Thank you for your consultation. Please call me if you have any questions. Jose Ramirez MD, FACP, FACC, FSCAI, FHRS, CCDS Interventional Cardiology Cardiac Electrophysiology Vascular Medicine and Endovascular Interventions Clinical Quality Measures AMI/AHF: ASA po Prior to arrival: Shanell Winters MD Nov 13, 2016 12:18
[2016-11-13] MEDS: GABAPENTIN 400 MG (NEURONTIN) CAP PO SCH ×2 (13:27→21:22)
[2016-11-13] MEDS: RIVAROXABAN 15 MG TABLET (XARELTO) PO SCH (18:07)
[2016-11-13] MEDS: ATORVASTATIN 20 MG (LIPITOR) TABLET PO SCH (21:21)
[2016-11-13] MEDS: SUCRALFATE 1 GM (CARAFATE) TAB PO SCH (21:21)
[2016-11-14] VITALS (17 sets, daily range): BP systolic 96–125; BP diastolic 42–112
[2016-11-14] MEDS: LEVOFLOXACIN 750 MG/D5W 150 ML PRE-MIX IV SCH (01:45)
[2016-11-14] MEDS: inSUlin (REGULAR) HUMAN 1 UNIT/0.01 ML (CHARGE PER UNIT) SC SCH ×5 (01:45→21:42)
[2016-11-14] MEDS: RT-ALBUTEROL/IPRATROPIUM 3 ML (DUONEB) VIAL INH SCH ×6 (01:51→22:25)
[2016-11-14 02:02] LABS: CALCIUM 7.8 MG/DL (8.5-10.1); CREATININE SERUM 1.65 MG/DL (0.60-1.30); POTASSIUM 3.5 MMOL/L (3.6-5.0)
[2016-11-14] MEDS: MAGNESIUM 1 GM/100 ML IVPB 100 ML IV SCH (02:36)
[2016-11-14] MEDS: KCL 20 MEQ TAB (K-DUR) PO SCH (02:36)
[2016-11-14] MEDS: POTASSIUM CL 10MEQ/50ML IVPB 50 ML IV SCH (02:37)
[2016-11-14 04:28] LABS: BASOPHILS % (AUTO) 0 % (0-10); EOSINOPHILS % (AUTO) 0 % (0-10); LYMPHOCYTES # (AUTO) 0.5 X 10^3 (1.0-4.0); LYMPHOCYTES % (AUTO) 5 % (12-44); MEAN CORPUSCULAR HEMOGLOBIN 28 PG (25-34); MEAN CORPUSCULAR HGB CONC 32 G/DL (32-36); MEAN CORPUSCULAR VOLUME 87 FL (80-99); MEAN PLATELET VOLUME 11.3 FL (7.4-10.4); MONOCYTES # (AUTO) 0.4 X 10^3 (0.0-1.0); MONOCYTES % (AUTO) 4 % (0-12); NEUTROPHILS # (AUTO) 8.7 X 10^3 (1.8-7.8); NEUTROPHILS % (AUTO) 91 % (42-75); PLATELET COUNT 293 10^3/uL (130-400); RED BLOOD COUNT 3.67 10^6/uL (4.35-5.85); RED CELL DISTRIBUTION WIDTH 15.2 % (10.0-14.5); WHITE BLOOD COUNT 9.5 10^3/uL (4.3-11.0)
[2016-11-14 04:47] LABS: CALCIUM 7.8 MG/DL (8.5-10.1); CREATININE SERUM 1.58 MG/DL (0.60-1.30); MAGNESIUM 2.3 MG/DL (1.8-2.4); POTASSIUM 3.7 MMOL/L (3.6-5.0)
[2016-11-14] MEDS ORDERED: PIPERACILLIN/TAZO 4.5 GM VIAL (ZOSYN) IV ONE (05:51)
[2016-11-14] MEDS ORDERED: NS (IVPB) 100 ML ONE (05:51)
[2016-11-14] MEDS: PIPERACILLIN/TAZOBACTAM 4.5 GM/NS 100 ML IVPB IV SCH ×6 (05:56→21:42)
[2016-11-14] MEDS: methylPREDNISolone 40 MG/ML (Solu-MEDROL) VIAL IV SCH ×3 (05:57→17:22)
--- NOTE | 2016-11-14 07:04 | Pulmonary Progress Note ---
Subjective Subjective/Events-last exam Pt is doing much better will transfer to [facility]. Exam Exam Vital Signs Date Time Temp Pulse Resp B/P Pulse Ox O2 Delivery O2 Flow Rate FiO2 11/14/16 06:00 57 13 117/77 98 Nasal Cannula 2.00 11/14/16 05:00 55 10 117/73 98 Nasal Cannula 2.00 11/14/16 04:00 98 1.00 11/14/16 04:00 63 15 113/52 92 Nasal Cannula 2.00 11/14/16 03:00 62 10 102/42 97 Nasal Cannula 2.00 11/14/16 02:00 61 14 116/73 97 Nasal Cannula 2.00 11/14/16 01:51 99 2.00 11/14/16 01:00 57 14 117/74 99 Nasal Cannula 2.00 11/14/16 01:00 57 11/14/16 00:00 98 2.00 11/14/16 00:00 60 15 118/76 100 Nasal Cannula 2.00 11/13/16 23:00 61 15 125/82 99 Nasal Cannula 2.00 11/13/16 22:00 61 10 108/49 96 Nasal Cannula 2.00 11/13/16 21:40 98 2.00 11/13/16 21:00 71 16 116/67 98 Nasal Cannula 2.00 11/13/16 20:00 67 13 113/72 99 Nasal Cannula 2.00 11/13/16 20:00 98 2.00 11/13/16 20:00 97.3 11/13/16 19:00 67 21 103/66 99 Nasal Cannula 2.00 11/13/16 19:00 71 11/13/16 18:34 93 2.00 11/13/16 18:00 66 35 131/78 98 Nasal Cannula 2.00 11/13/16 17:00 73 17 131/75 Nasal Cannula 2.00 11/13/16 16:30 97.3 11/13/16 16:00 98 2.00 11/13/16 16:00 72 11 114/71 95 Nasal Cannula 2.00 11/13/16 15:00 66 11 131/81 98 Nasal Cannula 2.00 11/13/16 14:41 97 2.00 11/13/16 14:00 73 14 132/81 96 Nasal Cannula 2.00 11/13/16 13:00 77 10 119/56 94 Nasal Cannula 2.00 11/13/16 13:00 76 11/13/16 12:30 98 2.00 11/13/16 12:00 77 17 126/83 93 Nasal Cannula 2.00 11/13/16 11:59 97.9 11/13/16 11:00 78 17 117/80 90 Nasal Cannula 2.00 11/13/16 10:08 98 11/13/16 10:00 77 11 121/83 100 Nasal Cannula 2.00 11/13/16 09:00 110 11 106/80 91 Nasal Cannula 2.00 11/13/16 09:00 100 2.00 11/13/16 08:50 98 30 11/13/16 08:33 99.5 11/13/16 08:06 95 27 100 30 11/13/16 08:00 85 13 131/93 98 Mechanical Ventilator 30.00 11/13/16 07:00 86 11/13/16 07:00 86 13 113/74 100 Mechanical Ventilator 30.00 I & O 11/14/16 07:00 Intake Total 4000 ml Output Total 4700 ml Balance -700 ml General Appearance: No Apparent Distress Chronically ill HEENT: Other (Pupils 5 mm and equal react to light face is flushed warm not diaphorecSclerae are nonicteric mucous membranes somew) Neck: Supple Respiratory: No Accessory Muscle Use Decreased Breath Sounds Cardiovascular: No Edema No Murmur Gallop/S3 Capillary Refill: Less Than 3 Seconds Extremity: Other (Feet cool absent pulses no cyanosis appreciated) Skin: Warm/Dry Lymphatic: No Adenopathy Results Lab Laboratory Tests 11/13/16 04:20 11/13/16 17:04 11/14/16 01:30 11/14/16 04:00 Assessment/Plan Assessment/Plan Acute respiratory failure -PT is doing well off ventilator Pneumonia with sepsis -vanco, zosyn, Levaquin -IVF CHF with EF of 20% Acute renal failure - worsening -IVF and monitor Dysphagia with witnessed apnea per RN Metabolic encephalopathy - PAD Nonhealing foot ulcers bilaterally, hx of COPD with current tobacco use -SVNs, Oxygen PT is doing better will transfer to floor with telemetry. D/C philippe Overall poor prognosis. Clinical Quality Measures AMI/AHF: ASA po Prior to arrival: No DVT/VTE Risk/Contraindication: Risk Factor Score Per Nursin RFS Level Per Nursing on Admit: 4+=Very High CHAYITO DE LA ROSA DO Nov 14, 2016 07:04
[2016-11-14 08:21] LABS: LEGIONELLA PNEU ANTIGEN URINE Negative; STREP PNEUMOCOCCUS ANTIG Negative
--- NOTE | 2016-11-14 08:43 | Diagnostic Imaging Report ---
INDICATION: Dyspnea. COMPARISON: 11/14/2016. FINDINGS: The ET tube and the enteric catheters have been removed. Chronic underlying COPD and infiltrates in the mid to lower right lung are present with the infiltrates showing mild progression. The heart is mildly enlarged but unchanged. There is likely a tiny amount of right-sided pleural fluid. IMPRESSION: Worsened right lung infiltrate superimposed upon chronic COPD. Likely tiny right pleural effusion. Interval extubation. Dictated by: Dictated on workstation # [id number]
--- NOTE | 2016-11-14 09:43 | Occupational Ther Daily Note ---
OT Current Status-Daily Note Subjective Pt seen in room in ICU, alert and agreeable to OT. Pt is now off BiPAP but reported that he hasn't been up to EOB yet. No pain mentioned Appearance Alert, cooperative Mental Status/Objective Functional [place] Measure 0=Not Assessed/NA 4=Minimal Assistance 1=Total Assistance 5=Supervision or Setup 2=Maximal Assistance 6=Modified [place] 3=Moderate Assistance 7=Complete [place] ADL-Treatment Pt would benefit from skilled physical therapy for mobility and strengthening Other Treatment Pt was able to feed himself breakfast and get a drink of water by himself. He also was able to wash his face with setup. Pt was incontinent of stool, requiring almost total care to clean up. He was able to roll to each side and maintain sidelying without physical help, using bedrail as an assist. He also was able to move each leg to get cleaned up and was able to bridge so that a bedpan could be placed under his bottom (he continued to have loose stool). Pt was left up on bedpan, call light present, nursing notified. Education OT Patient Education: Progress toward Goal/Update tx plan, Purpose of tx/ functional activities Teaching Recipient: Patient Teaching Methods: Discussion Response to Teaching: Verbalize Understanding OT Short Term Goals Short Term Goals Time Frame: Nov 22, 2016 Eating(FIM): 5 Grooming(FIM): 4 Bathing(FIM): 3 Upper Body Dressing(FIM): 4 Lower Body Dressing(FIM): 3 Toileting(FIM): 4 Transfers (B,C,W/C) (FIM): 3 Toilet/Commode Transfer(FIM): 3 Additional Short Term Goals: 1-Demonstrate ADL Tasks, 2-Verbalize Understanding , 3-ImproveStrength/Juli 1=Demonstrate adherence to instructed precautions during ADL tasks. 2=Patient will verbalize/demonstrate understanding of assistive devices/ modifications for ADL. 3=Patient will improve strength/tolerance for activity to enable patient to perform ADL's. OT Usp Goals Adult Daycare Coordinator Goals Time Frame: Dec 06, 2016 Eating (FIM): 6 Grooming(FIM): 6 Bathing(FIM): 4 Upper Body Dressing(FIM): 5 Lower Body Dressing(FIM): 5 Toileting(FIM): 5 Transfers (B,C,W/C) (FIM): 5 Toilet/Commode Transfer(FIM): 5 Additional Goals: 1-Demonstrate ADL Tasks, 2-Verbalize Understanding, 3- ImproveStrength/Juli 1=Demonstrate adherence to instructed precautions during ADL tasks. 2=Patient will verbalize/demonstrate understanding of assistive devices/ modifications for ADL. 3=Patient will improve strength/tolerance for activity to enable patient to perform ADL's. OT Education/Plan Discharge Recommendations Plan/Recommendations: Continue POC Treatment Plan/Plan of Care Patient would benefit from OT for education, treatment and training to promote independence in ADL's, mobility, safety and/or upper extremity function for ADL' s. Plan of Care: ADL Retraining, Caregiver Training, Functional Mobility, UE Funct Exercise/Act Treatment Duration: Dec 06, 2016 Agreement: Yes Rehab Potential: Guarded Time/GCodes Start Time: 09:00 Stop Time: 09:30 Total Time Billed (hr/min): 30 Billed Treatment Time visit, 30 minutes functional activity ERNESTINA BAUER OT Nov 14, 2016 09:43
[2016-11-14] MEDS: SUCRALFATE 1 GM (CARAFATE) TAB PO SCH ×2 (10:12→20:56)
[2016-11-14] MEDS: D5W W/KCL 20 MEQ/L 1,000 ML IV SCH ×2 (10:12→11:58)
[2016-11-14] MEDS: FUROSEMIDE 40 MG/4 ML INJ (LASIX) IVP SCH (10:12)
[2016-11-14] MEDS: ASPIRIN E.C. 81 MG (ECOTRIN) TAB PO SCH (10:13)
[2016-11-14] MEDS: PANTOPRAZOLE 40 MG (PROTONIX) TAB PO SCH (10:13)
[2016-11-14] MEDS: GABAPENTIN 400 MG (NEURONTIN) CAP PO SCH ×3 (10:13→20:56)
[2016-11-14] MEDS: meTOprolol TARTRATE 25 MG (LOPRESSOR) TABLET PO SCH ×3 (10:13→20:57)
[2016-11-14] MEDS: CHLORHEXIDINE 0.12% SOLN 15 ML (PERIDEX) UDC PO SCH ×2 (10:14→20:56)
[2016-11-14] MEDS: ENALAPRIL 2.5 MG (VASOTEC) TAB PO SCH (10:14)
--- NOTE | 2016-11-14 12:18 | Progress Note-Hospitalist ---
Standard Progress Note Progress Notes/Assess & Plan Date Seen 11/14/16 Diagnosis 1. Right middle and right lower lobe pneumonia suspect mucous pluggi can't rule out postobstructive process considering absent breath sounds. 2. Severe sepsis secondary to number 1 blood pressure has improved and acute kidney injury secondary to dehydra improving with fluid bolus continue IV fluids and antibiotic coverage. 3. Likely type II VA as the EKG does not show any ischemic changes will defer to Dr. Garcia. Overall prognosis is still quite poor. 4. Probable underlying significant COPD 5. Likely underlying significant peripheral vascular disease. Assess & Plan/Chief Complaint The patient is a 71-year-old white male who is on day 7 of this hospitalization. He had presented in respiratory failure as a result of an extensive pneumonia. He had a relatively prolonged course on the ventilator but has now been extubated. He is in the process of transferring to the floor today. He is able to speak in complete sentences. He reports that he has had a weight loss of nearly 50 pounds over the past year. He also states that a lady from physical therapy came to begin rehabilitating him. Just as they got started he had a large loose brown stool in the bed in this ended the endeavor Physical exam: He is alert and oriented. Lungs are distant but clear. CV is regular without murmur. There is no pedal edema. Impression: Bilateral lobar right pneumonia. 2.respiratory failure and mechanical ventilation secondary to number 1 Plan: Continue IV antibiotics and pulmonary toilet. Began restorative therapy with physical therapy and occupational therapy Labs Laboratory Tests 11/13/16 04:20 11/13/16 17:04 11/14/16 01:30 11/14/16 04:00 SEEMA CARROLL MD Nov 14, 2016 12:18
--- NOTE | 2016-11-14 14:48 | Cardiology Progress Note ---
Cardiology SOAP Progress Note Subjective: Significantly improved. Not complaining of shortness of breath. Objective: I&O/Vital Signs Vital Sign - Last 12Hours 11/14/16 11/14/16 11/14/16 11/14/16 03:00 04:00 04:00 05:00 Pulse 62 63 55 Resp 10 15 10 B/P 102/42 113/52 117/73 Pulse Ox 97 92 98 98 O2 Delivery Nasal Cannula Nasal Cannula Nasal Cannula O2 Flow Rate 2.00 2.00 1.00 2.00 11/14/16 11/14/16 11/14/16 11/14/16 06:00 07:00 07:00 07:44 Pulse 57 69 70 Resp 13 9 B/P 117/77 125/112 Pulse Ox 98 92 100 O2 Delivery Nasal Cannula Nasal Cannula O2 Flow Rate 2.00 2.00 1.00 11/14/16 11/14/16 11/14/16 11/14/16 08:00 09:00 10:55 14:39 Pulse 72 72 Resp 13 9 B/P 112/66 97/79 Pulse Ox 100 100 98 96 O2 Delivery Nasal Cannula Nasal Cannula O2 Flow Rate 2.00 2.00 Intake and Output 11/14/16 00:00 Intake Total 1550 ml Output Total 2850 ml Balance -1300 ml Weight (Pounds): 131 Weight (Ounces): 5.0 Weight (Calculated Kilograms): 59.789302 Constitutional: other (intubated) Respiratory: chest is bilaterally symmetric lungs clear to auscultation Cardiovascular: regular rate-rhythm irregularly irregular tachycardia S1 and S2 Gastrointestional: No tender, No soft, No round, No distended, No pulsatile mass, No organomegaly, No guarding, No rebound, No tenderness, No hernia, No mass, No audible bowel sounds, No abnormal bowel sounds, No abdominal bruits, No spleenomegaly, No other Extremities: No normal range of motion, No non-tender, No normal inspection, No pedal edema, No calf tenderness, No normal capillary refill, No pelvis stable , No calf tenderness, No inflammation, No pedal edema, No slow capillary refill , No swelling, No other, No abrasion, No clubbing, No cyanosis, No ecchymosis, No laceration, No no lower extremity edema bilateral, No significant edema, No tenderness, No wound Neurologic/Psychiatric: other (intubated) Skin: No normal color, No warm/dry, No cyanosis, No cool, No diaphoresis, No damp, No ecchymosis, No jaundice, No mottled, No pallor, No rash, No tattoos/ piercings, No ulcerations, No rash on exposed areas, No ulcerations on exposed areas, No other Results/Procedures: Labs Laboratory Tests 11/13/16 16:32: Glucometer 191H 11/13/16 17:04: Potassium Level 2.7L 11/13/16 21:37: Glucometer 179H 11/14/16 01:30: Potassium Level 3.5L, Anion Gap 14, BUN/Creatinine Ratio 41, Blood Urea Nitrogen 68H, Calcium Level 7.8L, Carbon Dioxide Level 25, Chloride Level 110H, Creatinine 1.65H, Estimat Glomerular Filtration Rate 41, Glucose Level 129H, Sodium Level 149H 11/14/16 04:00: Anion Gap 13, BUN/Creatinine Ratio 41, Basophils # (Auto) 0.0, Basophils (%) ( Auto) 0, Blood Urea Nitrogen 65H, Calcium Level 7.8L, Carbon Dioxide Level 23, Chloride Level 110H, Creatinine 1.58H, Eosinophils # (Auto) 0.0, Eosinophils (% ) (Auto) 0, Estimat Glomerular Filtration Rate 44, Glucose Level 155H, Hematocrit 32L, Hemoglobin 10.3L, Lymphocytes # (Auto) 0.5L, Lymphocytes (%) ( Auto) 5L, Magnesium Level 2.3, Mean Corpuscular Hemoglobin 28, Mean Corpuscular Hemoglobin Concent 32, Mean Corpuscular Volume 87, Mean Platelet Volume 11.3H, Monocytes # (Auto) 0.4, Monocytes (%) (Auto) 4, Neutrophils # (Auto) 8.7H, Neutrophils (%) (Auto) 91H, Phosphorus Level 3.0, Platelet Count 293, Potassium Level 3.7, Red Blood Count 3.67L, Red Cell Distribution Width 15.2H, Sodium Level 146H, White Blood Count 9.5 Microbiology 11/07/16 Blood Culture - Final, Complete No growth 11/11/16 Influenza Types A,B Antigen (DIONISIO) - Final, Complete 11/11/16 Urine Culture - Final, Complete NO GROWTH A/P: Assessment/Dx: atrial fibrillation, acute on chronic congestive heart failure, positive cardiac enzymes, critical limb ischemia, contrast-induced nephropathy, respiratory failure. Plan: 1. Atrial fibrillation: paroxysmal. on beta gurpreet. On beta blockers. on anticoagulation. heart rate improved. complete iv amiodarone 2. Acute on chronic congestive heart failure: severe cardiomyopathy, Significantly elevated BNP. We will give Lasix 80 mg IV daily. there is some improvement as far as congestive heart failure is concerned since yesterday. Improved BNP as well as oxygenation. 3. Elevated creatinine: Needs to follow with nephrology. 4. Positive troponin: Likely due to atrial fibrillation and congestive heart failure. continue aspirin, DARREL inhibitor, beta gurpreet, add Lipitor 40 mg daily. Acute change in mental status, probably secondary to sepsis and pneumonia, anoxic encephalopathy. Continue to monitor. Sepsis Elevated troponin, no acute EKG changes, had history of cardiac catheterization done in 2011 showing gldt-wa-fshpfiee disease nonobstructive disease. persistent elevation in troponin, non-ST elevation myocardial infarction. Congestive heart failure, EF 20% per 2D Echo. Likely ischemic in nature. Acute renal failure; contrast-induced nephropathy Pneumonia, extensive right-sided pneumonia, improving on antibiotics. Dr Davis to take over care tomorrow. Thank you for your consultation. Please call me if you have any questions. Jose Ramirez MD, FACP, FACC, [facility], FHRS, CCDS Interventional Cardiology Cardiac Electrophysiology Vascular Medicine and Endovascular Interventions Clinical Quality Measures AMI/AHF: ASA po Prior to arrival: Shanell Winters MD Nov 14, 2016 2:48 pm
[2016-11-14 15:41] LABS: ANCA PATTERN Not Indicated; ANTI NEUTROPHIL CYTOPLASM <1:20 (<1:20)
[2016-11-14] MEDS: RIVAROXABAN 15 MG TABLET (XARELTO) PO SCH (17:22)
--- NOTE | 2016-11-14 20:04 | Wound Care Progress Note ---
Subjective Subjective Subjective/Events-last exam 71 year old male with bilateral venous ulcers. L leg is healed. R leg is improved with prolonged bed rest. Will change to Xeroform dressings to keep dressing from sticking. PFSH: no interval change. Review of Systems Pulmonary: No Dyspnea Cardiovascular: No: Chest Pain Objective Exam Last Set of Vital Signs Vital Signs Date Time Temp Pulse Resp B/P Pulse Ox O2 Delivery O2 Flow Rate FiO2 11/14/16 18:21 95 11/14/16 18:00 55 10 Nasal Cannula 2.00 11/13/16 20:00 97.3 11/13/16 08:50 30 Capillary Refill : Less Than 3 Seconds I&O Intake and Output 11/14/16 00:00 Intake Total 2600 ml Output Total 5200 ml Balance -2600 ml Intake Oral 1200 ml IV Total 1400 ml Output Urine Total 5000 ml Gastric Drainage Total 200 ml # Bowel Movements 1 General: Alert, No Acute Distress Lungs: Normal Air Movement Skin: Other (R calf --- 3.0 x 3.5 x 0.1 cm, base 100% regeneating tisssue.) Results Lab Laboratory Tests 11/13/16 21:37: Glucometer 179H 11/14/16 01:30: Anion Gap 14, BUN/Creatinine Ratio 41, Blood Urea Nitrogen 68H, Calcium Level 7.8L, Carbon Dioxide Level 25, Chloride Level 110H, Creatinine 1.65H, Estimat Glomerular Filtration Rate 41, Glucose Level 129H, Potassium Level 3.5L, Sodium Level 149H 11/14/16 04:00: Anion Gap 13, BUN/Creatinine Ratio 41, Blood Urea Nitrogen 65H, Calcium Level 7.8L, Carbon Dioxide Level 23, Chloride Level 110H, Creatinine 1.58H, Estimat Glomerular Filtration Rate 44, Glucose Level 155H, Potassium Level 3.7, Sodium Level 146H, Basophils # (Auto) 0.0, Basophils (%) (Auto) 0, Eosinophils # (Auto ) 0.0, Eosinophils (%) (Auto) 0, Hematocrit 32L, Hemoglobin 10.3L, Lymphocytes # (Auto) 0.5L, Lymphocytes (%) (Auto) 5L, Magnesium Level 2.3, Mean Corpuscular Hemoglobin 28, Mean Corpuscular Hemoglobin Concent 32, Mean Corpuscular Volume 87, Mean Platelet Volume 11.3H, Monocytes # (Auto) 0.4, Monocytes (%) (Auto) 4, Neutrophils # (Auto) 8.7H, Neutrophils (%) (Auto) 91H, Phosphorus Level 3.0, Platelet Count 293, Red Blood Count 3.67L, Red Cell Distribution Width 15.2H, White Blood Count 9.5 11/14/16 13:44: Glucometer 167H 11/14/16 17:25: Glucometer 183H Microbiology 11/07/16 Blood Culture - Final, Complete No growth 11/11/16 Influenza Types A,B Antigen (DIONISIO) - Final, Complete 11/11/16 Urine Culture - Final, Complete NO GROWTH Assessment/Plan Assessment/Plan Assessment/Plan 1. Venous insufficiency ulcer. R calf, partial thickness. 2. Respiratory failure. Plan: Change to Xeroform. RAPHAEL CASTELAN MD Nov 14, 2016 20:04
[2016-11-14] MEDS: ATORVASTATIN 20 MG (LIPITOR) TABLET PO SCH (20:56)
[2016-11-15] VITALS: BP 120/77
[2016-11-15] MEDS: methylPREDNISolone 40 MG/ML (Solu-MEDROL) VIAL IV SCH ×4 (00:12→17:51)
[2016-11-15 04:00] VITALS: BP 114/71
[2016-11-15 04:16] LABS: BASOPHILS % (AUTO) 0 % (0-10); EOSINOPHILS % (AUTO) 0 % (0-10); LYMPHOCYTES # (AUTO) 0.5 X 10^3 (1.0-4.0); LYMPHOCYTES % (AUTO) 4 % (12-44); MEAN CORPUSCULAR HEMOGLOBIN 28 PG (25-34); MEAN CORPUSCULAR HGB CONC 33 G/DL (32-36); MEAN CORPUSCULAR VOLUME 86 FL (80-99); MEAN PLATELET VOLUME 11.3 FL (7.4-10.4); MONOCYTES # (AUTO) 0.7 X 10^3 (0.0-1.0); MONOCYTES % (AUTO) 5 % (0-12); NEUTROPHILS # (AUTO) 11.7 X 10^3 (1.8-7.8); NEUTROPHILS % (AUTO) 91 % (42-75); PLATELET COUNT 335 10^3/uL (130-400); RED BLOOD COUNT 4.03 10^6/uL (4.35-5.85); RED CELL DISTRIBUTION WIDTH 15.1 % (10.0-14.5); WHITE BLOOD COUNT 12.9 10^3/uL (4.3-11.0)
[2016-11-15 04:39] LABS: CALCIUM 7.9 MG/DL (8.5-10.1); CREATININE SERUM 1.22 MG/DL (0.60-1.30); MAGNESIUM 2.1 MG/DL (1.8-2.4); PHOSPHORUS 2.8 MG/DL (2.3-4.7); POTASSIUM 3.1 MMOL/L (3.6-5.0)
[2016-11-15] MEDS: inSUlin (REGULAR) HUMAN 1 UNIT/0.01 ML (CHARGE PER UNIT) SC SCH ×4 (04:42→20:31)
--- NOTE | 2016-11-15 06:38 | Pulmonary Progress Note ---
Subjective Subjective/Events-last exam PT is doing much better sitting up in chair. Exam Exam Vital Signs Date Time Temp Pulse Resp B/P Pulse Ox O2 Delivery O2 Flow Rate FiO2 11/15/16 04:00 97.2 55 20 114/71 95 Room Air 11/15/16 02:15 95 11/15/16 01:00 71 11/15/16 00:00 97.0 58 12 120/77 98 Room Air 11/14/16 22:26 95 11/14/16 20:00 100 11/14/16 19:00 70 11/14/16 19:00 97.4 68 15 96/59 100 Room Air 11/14/16 18:21 95 11/14/16 18:00 55 10 Nasal Cannula 2.00 11/14/16 17:00 59 14 103/65 Nasal Cannula 2.00 11/14/16 16:00 61 21 Nasal Cannula 2.00 11/14/16 15:00 61 14 Nasal Cannula 2.00 11/14/16 14:39 96 11/14/16 14:00 62 15 122/72 Nasal Cannula 2.00 11/14/16 13:00 62 11/14/16 13:00 60 11 117/71 Nasal Cannula 2.00 11/14/16 12:00 64 10 103/59 Nasal Cannula 2.00 11/14/16 11:00 69 28 113/76 Nasal Cannula 2.00 11/14/16 10:55 98 11/14/16 10:00 71 8 120/75 98 Nasal Cannula 2.00 11/14/16 09:00 72 9 97/79 100 Nasal Cannula 2.00 11/14/16 08:00 72 13 112/66 100 Nasal Cannula 2.00 11/14/16 08:00 100 1.00 11/14/16 07:44 100 1.00 11/14/16 07:00 70 9 125/112 92 Nasal Cannula 2.00 11/14/16 07:00 69 I & O 11/15/16 07:00 Intake Total 2450 ml Output Total 3950 ml Balance -1500 ml General Appearance: No Apparent Distress Chronically ill HEENT: Other (Pupils 5 mm and equal react to light face is flushed warm not diaphorecSclerae are nonicteric mucous membranes somew) Neck: Supple Respiratory: No Accessory Muscle Use Decreased Breath Sounds Cardiovascular: No Edema No Murmur Gallop/S3 Capillary Refill: Less Than 3 Seconds Extremity: Other (Feet cool absent pulses no cyanosis appreciated) Skin: Warm/Dry Lymphatic: No Adenopathy Results Lab Laboratory Tests 11/13/16 17:04 11/14/16 01:30 11/14/16 04:00 11/15/16 03:57 Assessment/Plan Assessment/Plan Pneumonia with sepsis -Levaquin -IVF CHF with EF of 20% Acute renal failure - worsening -IVF and monitor Metabolic encephalopathy - improved PAD Nonhealing foot ulcers bilaterally, hx of COPD with current tobacco use -SVNs, Oxygen PT is doing better will transfer to floor with telemetry. D/C burgaw Clinical Quality Measures AMI/AHF: ASA po Prior to arrival: No DVT/VTE Risk/Contraindication: Risk Factor Score Per Nursin RFS Level Per Nursing on Admit: 4+=Very High CHAYITO DE LA ROSA DO Nov 15, 2016 06:38
[2016-11-15] MEDS ORDERED: KCL 20 MEQ TAB (K-DUR) PO NR (06:45)
[2016-11-15] MEDS: RT-ALBUTEROL/IPRATROPIUM 3 ML (DUONEB) VIAL INH SCH ×5 (07:04→22:00)
[2016-11-15 08:23] VITALS: BP 100/61
--- NOTE | 2016-11-15 08:25 | Cardiology Progress Note ---
Subjective Subjective/Events-last exam patient is laying down in bed, still having some shortness of breath, mental status is significantly better, cannot recall how he ended up in the hospital. denied any chest pain. Review of Systems General: No Chills, No Night Sweats, Fatigue MalaiseNo Appetite, No Other HEENT: No Head Aches, No Visual Changes, No Eye Pain, No Ear Pain, No Dysphasia , No Sinus Congestion, No Post Nasal Drip, No Sore Throat, No Other Pulmonary: Dyspnea CoughNo Pleuritic Chest Pain, No Other Cardiovascular: No: Chest Pain, Edema, Lt Headedness, Orthopnea, Other, Palpitations, Paroxysmal Noc. Dyspnea Objective-Cardiology Exam Last Set of Vital Signs Vital Signs 11/13/16 11/14/16 11/15/16 08:50 18:00 04:00 Temp 97.2 Pulse 55 Resp 20 B/P 114/71 Pulse Ox 95 O2 Delivery Room Air O2 Flow Rate 2.00 FiO2 30 Capillary Refill : Less Than 3 SecondsLess Than 3 Seconds I&O Intake and Output 11/15/16 00:00 Intake Total 3850 ml Output Total 4200 ml Balance -350 ml Intake Oral 2500 ml IV Total 1350 ml Output Urine Total 4200 ml # Bowel Movements 6 General: Alert, Oriented X3, Cooperative, Mild Distress HEENT: Atraumatic, PERRLA Neck: Supple, No JVD, No Thyromegaly Lungs: Normal Air Movement, Other (bilateral rhonchi) Heart: Normal S1, Normal S2, No Murmurs, Other (S3 is present) Abdomen: Normal Bowel Sounds, Soft, No Tenderness, No Hepatosplenomegaly, No Masses Extremities: No Clubbing, No Edema, No Tenderness/Swelling, Other (pulses detected by Doppler bilaterally, bilateral foot ulcers) Skin: Other (R calf --- 3.0 x 3.5 x 0.1 cm, base 100% regeneating tisssue.) Neuro: Normal Speech, Normal Tone Psych/Mental Status: Mood NL Results Lab Laboratory Tests 11/15/16 03:57 A/P-Cardiology Admission Diagnosis Acute change in mental status Pneumonia Peripheral arterial disease Coronary artery disease Assessment/Plan Acute change in mental status, probably secondary to sepsis and pneumonia, anoxic encephalopathy, significant improvement, still lethargic. Continue on antibiotics Sepsis, improved with antibiotics. Feeling better. Elevated troponin, no acute EKG changes, cardiac catheterization done last week showing nonobstructive coronary artery disease. Medical therapy Congestive heart failure, EF 20% per 2D Echo, nonischemic cardiomyopathy acute left ventricular systolic dysfunction, continue on beta blockers and DARREL inhibitor and increase enalapril dose. Continue on diuretics. Paroxysmal atrial fibrillation, occurred while in respiratory failure, responded to IV amiodarone, currently in sinus rhythm. Receiving Xarelto. Continue to monitor closely. Acute renal failure, continue to monitor renal function Pneumonia, extensive right-sided pneumonia, improving, continue on antibiotics. Nonhealing foot ulcers bilaterally, on the right side is on the outside portion of the ankle, SEAMUS on the right is 0.57, on the left side the ulcer is on the inner part of the foot, SEAMUS 0.32, angiogram showed SFA disease bilaterally, trifurcation was not seen on the right side due to knee replacement. Planning for intervention once clinically stable Hypertension, Continue to monitor blood pressure Hyperlipidemia, continue current medication and monitor lipids Hyperthyroidism, history of hypothyroidism and Levothyroid, managed by primary care physician History of pulmonary hypertension, continue to monitor History of rheumatoid arthritis. COPD, managed and followed by primary care physician Tobaccoism, educated on smoking cessation History of chronic narcotic use, urine drug screen is positive for opioids Clinical Quality Measures AMI/AHF: ASA po Prior to arrival: No DVT/VTE Risk/Contraindication: Risk Factor Score Per Nursin RFS Level Per Nursing on Admit: 4+=Very High TORY HALL MD Nov 15, 2016 08:25
[2016-11-15] MEDS: meTOprolol TARTRATE 25 MG (LOPRESSOR) TABLET PO SCH ×3 (08:26→20:23)
[2016-11-15] MEDS: ASPIRIN E.C. 81 MG (ECOTRIN) TAB PO SCH (08:26)
[2016-11-15] MEDS: PANTOPRAZOLE 40 MG (PROTONIX) TAB PO SCH (08:26)
[2016-11-15] MEDS: SUCRALFATE 1 GM (CARAFATE) TAB PO SCH ×2 (08:26→20:31)
[2016-11-15] MEDS: ENALAPRIL 2.5 MG (VASOTEC) TAB PO SCH ×2 (08:26→09:00)
[2016-11-15] MEDS: FUROSEMIDE 40 MG/4 ML INJ (LASIX) IVP SCH (08:27)
[2016-11-15] MEDS: GABAPENTIN 400 MG (NEURONTIN) CAP PO SCH ×3 (08:27→20:22)
[2016-11-15] MEDS: CHLORHEXIDINE 0.12% SOLN 15 ML (PERIDEX) UDC PO SCH ×2 (08:27→20:23)
[2016-11-15] MEDS: POTASSIUM CL 10MEQ/50ML IVPB 50 ML IV SCH ×2 (08:30→13:03)
--- NOTE | 2016-11-15 08:32 | Diagnostic Imaging Report ---
INDICATION: Dyspnea. COMPARISON STUDY: Chest from yesterday. FINDINGS: A portable view of the chest demonstrates improvement in the right midlung infiltrate. Underlying COPD changes are again identified. Borderline cardiomegaly is present. There are no visible effusions. IMPRESSION: Improving right pulmonary infiltrates with underlying COPD. Dictated by: Dictated on workstation # [id number]
[2016-11-15] MEDS: FUROSEMIDE 40 MG (LASIX) TAB PO SCH (09:00)
--- NOTE | 2016-11-15 09:07 | Physical Therapy Evaluation ---
PT Evaluation-General Medical Diagnosis Admission Date Nov 07, 2016 at 14:12 Medical Diagnosis: AMS, RLL Pneumonia, Sepsis Onset Date: Nov 07, 2016 Therapy Diagnosis Therapy Diagnosis: general debility/weakness Height/Weight Height (Feet): 5 Height (Inches): 9.00 Weight (Pounds): 130 Weight (Ounces): 0.1 Precautions Precautions/Isolations: Fall Prevention, Standard Precautions Weight Bear Status Weight Bearing Restriction: Weight Bearing/Tolerated Referral Physician: Dr. Perales Reason for Referral: Evaluation/Treatment Medical History Pertinent Medical History: Arthritis, CAD, COPD, GERD, HTN, Hypothroidism, PVD , Rheumatoid Arthritis Additional Medical History EF 20% Current History resp. failure; sepsis, non-healing foot ulcers Reviewed History: Yes Social History Home: Single Level Current Living Status: Significant Other Entry Into Home: Stairs With Railing PT Steps Into Home: 5 Prior/Core FIM Prior Level of Function Functional [place] Measure 0=Not Assessed/NA 4=Minimal Assistance 1=Total Assistance 5=Supervision or Setup 2=Maximal Assistance 6=Modified [place] 3=Moderate Assistance 7=Complete [place] Bed Mobility: 6 Transfers (B,C,W/C) (FIM): 6 Gait: 6 uses cane PT Evaluation-Current Subjective Patient is very agreeable to participate with PT. Pain Numeric Pain Scale: 0-No Pain Location: No Pain Reported Objective Patient Orientation: Normal For Age Problem Solving: Fair ROM/Strength ROM Lower Extremities genu valgus right; left LE WFL Strenght Lower Extremities right knee flexion/extension 4-/5; hip flexion 4/5 left knee flexion/extension 4/5; hip flexion 4/5 Integumentary/Posture Integumentary refer to nursing notes Bowel Incontinence: No Bladder Incontinence: No Posture flexed hip and knee posture in stand with FWW Neuromuscular (Tone, Coordination, Reflexes) grossly intact Sensory Vision: Functional Hearing: Functional Hand Dominance: Right Sensation Right Lower Extremit: Intact Sensation Left Lower Extremity: Intact Transfers Functional [place] Measure 0=Not Assessed/NA 4=Minimal Assistance 1=Total Assistance 5=Supervision or Setup 2=Maximal Assistance 6=Modified [place] 3=Moderate Assistance 7=Complete [place] Transfers (B, C, W/C) (FIM): 5 Scootin Sit to/from Stand: 5 SBA for safety with gait belt in place Gait Mode of Locomotion: Walk Anticipated Mode of Locomotion: Walk Gait (FIM): 5 Distance (FIM): 3=150 ft Distance: 200' Gait Level of Assist: 5 Gait Persons Needed: 1 Gait Assistive Device: FWW Comments/Gait Description steady, safe, functional with FWW Balance Sitting Static: Normal Sitting Dynamic: Normal Standing Static: Normal Standing Dynamic: Normal Assessment/Needs 71 y.o. male, will benefit from skilled PT to address functional strength and mobility to improve current LOF and to safely return to home with spouse at maximum LOF. Rehab Potential: Good PT Short Term Goals Short Term Goals Transfers (B,C,W/C) (FIM): 3 PT Residential Goals Food Production Associate Goals PT Residential Goals Time Frame: Nov 25, 2016 Transfers (B,C,W/C) (FIM): 6 Gait (FIM): 6 Gait distance (FIM): 3=150 ft Distance: 250' Gait Level of Assist: 6 Gait Assistive Device: FWW PT Plan Problem List Problem List: Activity Tolerance, Functional Strength Treatment/Plan Treatment Plan: Continue Plan of Care Treatment Plan: Bed Mobility, Education, Functional Activity Juli, Functional Strength, Gait, Safety, Therapeutic Exercise, Transfers Treatment Duration: Nov 25, 2016 # of days/week 5-6 Visits Per Week: 5-6 Minutes/Day (Sat/Ferrara): PRN Pt/Family Agrees w/Plan: Yes Safety Risks/Education Patient Education: Safety Issues Teaching Recipient: Patient Teaching Methods: Discussion Response to Teaching: Verbalize Understanding Discharge Recommendations Therapy D/C Recommendations: Home w/ Family Support Equpiment Recommendations-D/C: Front Wheeled Walker Time/GCodes Time In: 820 Time Out: 845 Total Billed Treatment Time: 25 Total [facility] LIZET SARMIENTO PT Nov 15, 2016 09:07
--- NOTE | 2016-11-15 09:26 | Occupational Ther Daily Note ---
OT Current Status-Daily Note Subjective Pt seen in room after PT, agreeable to OT. No pain mentioned. Appearance Alert, cooperative Mental Status/Objective Functional [place] Measure 0=Not Assessed/NA 4=Minimal Assistance 1=Total Assistance 5=Supervision or Setup 2=Maximal Assistance 6=Modified [place] 3=Moderate Assistance 7=Complete [place] Attachments: Central Line, Saline Lock, Telemetry ADL-Treatment Grooming (FIM): 5 (Washed face and hands and brushed hair with setup, seated) Bathing (FIM): 4 (Pt washed and dried all parts but needed CGA for balance when standing to wash bottom. FWW. Sponge bath. Bottom is red - barrier cream applied) Lower Body Dressing (FIM): 3 (Able to get L slipper sock off but not back on. Pt leaned forward to floor and became SOB. Unable to cross legs to put sock on. may benefit from AD. Pt education energy conservation techniques) Transfers (B, C, W/C) (FIM): 5 (Struggled to get to standing, getting stuck about midpoint. FWW) Other Treatment Pt left up in chair, feet elevated, all needs met. Education OT Patient Education: Energy conservation, Modified ADL techniques, Progress toward Goal/Update tx plan, Purpose of tx/functional activities, Safety issues, Transfer techniques (hand placement) Teaching Methods: Discussion Response to Teaching: Return Demonstration OT Short Term Goals Short Term Goals Time Frame: Nov 22, 2016 Eating(FIM): 5 Grooming(FIM): 4 Bathing(FIM): 3 Upper Body Dressing(FIM): 4 Lower Body Dressing(FIM): 3 Toileting(FIM): 4 Transfers (B,C,W/C) (FIM): 3 Toilet/Commode Transfer(FIM): 3 Additional Short Term Goals: 1-Demonstrate ADL Tasks, 2-Verbalize Understanding , 3-ImproveStrength/Juli 1=Demonstrate adherence to instructed precautions during ADL tasks. 2=Patient will verbalize/demonstrate understanding of assistive devices/ modifications for ADL. 3=Patient will improve strength/tolerance for activity to enable patient to perform ADL's. OT Game Preserve Manager Goals Game Preserve Manager Goals Time Frame: Dec 06, 2016 Eating (FIM): 6 Grooming(FIM): 6 Bathing(FIM): 4 Upper Body Dressing(FIM): 5 Lower Body Dressing(FIM): 5 Toileting(FIM): 5 Transfers (B,C,W/C) (FIM): 5 Toilet/Commode Transfer(FIM): 5 Additional Goals: 1-Demonstrate ADL Tasks, 2-Verbalize Understanding, 3- ImproveStrength/Juli 1=Demonstrate adherence to instructed precautions during ADL tasks. 2=Patient will verbalize/demonstrate understanding of assistive devices/ modifications for ADL. 3=Patient will improve strength/tolerance for activity to enable patient to perform ADL's. OT Education/Plan Discharge Recommendations Plan/Recommendations: Continue POC Treatment Plan/Plan of Care Patient would benefit from OT for education, treatment and training to promote independence in ADL's, mobility, safety and/or upper extremity function for ADL' s. Plan of Care: ADL Retraining, Caregiver Training, Functional Mobility, UE Funct Exercise/Act Treatment Duration: Dec 06, 2016 Agreement: Yes Rehab Potential: Good Time/GCodes Start Time: 08:50 Stop Time: 09:15 Total Time Billed (hr/min): 25 Billed Treatment Time visit, 25 minutes ADL ERNESTINA BAUER OT Nov 15, 2016 09:26
[2016-11-15 12:00] VITALS: BP 128/78
--- NOTE | 2016-11-15 13:50 | Progress Note-Hospitalist ---
Standard Progress Note Progress Notes/Assess & Plan Date Seen 11/15/16 Diagnosis 1. Right middle and right lower lobe pneumonia suspect mucous pluggi can't rule out postobstructive process considering absent breath sounds. 2. Severe sepsis secondary to number 1 blood pressure has improved and acute kidney injury secondary to dehydra improving with fluid bolus continue IV fluids and antibiotic coverage. 3. Likely type II ND as the EKG does not show any ischemic changes will defer to Dr. Garcia. Overall prognosis is still quite poor. 4. Probable underlying significant COPD 5. Likely underlying significant peripheral vascular disease. Assess & Plan/Chief Complaint The patient is rather mentally sluggish today. He is very physically detuned. He apparently fell asleep while attempting to order his lunch. Physical exam: Lungs are clear but distant breath sounds are noted CV is irregular. Abdomen is soft and bowel sounds are present. There is minimal edema in the distal leg and foot. There is a skin wound on the distal right side. Impression: Right middle and lower lobe pneumonia with slow but steady evidence of improvement. 2. Previous extended term mechanical ventilation secondary to number 1. 3.Significant weight loss reported over the past year. 4.atrial fibrillation Plan: Continue present medications. Await landmark evaluation. Labs Laboratory Tests 11/13/16 17:04 11/14/16 01:30 11/14/16 04:00 11/15/16 03:57 SEEMA CARROLL MD Nov 15, 2016 13:50
[2016-11-15 16:00] VITALS: BP 98/68
[2016-11-15] MEDS: RIVAROXABAN 15 MG TABLET (XARELTO) PO SCH (17:51)
[2016-11-15] MEDS: ATORVASTATIN 20 MG (LIPITOR) TABLET PO SCH (20:22)
[2016-11-15 20:39] VITALS: BP 123/82
[2016-11-16] MEDS ORDERED: LEVOFLOXACIN 750 MG/D5W 150 ML PRE-MIX IV SCH (00:30)
[2016-11-16] MEDS: methylPREDNISolone 40 MG/ML (Solu-MEDROL) VIAL IV SCH ×4 (01:42→18:48)
[2016-11-16] MEDS: RT-ALBUTEROL/IPRATROPIUM 3 ML (DUONEB) VIAL INH SCH ×6 (02:21→21:53)
[2016-11-16 04:00] VITALS: BP 119/85
[2016-11-16 04:29] LABS: BASOPHILS % (AUTO) 0 % (0-10); EOSINOPHILS % (AUTO) 0 % (0-10); LYMPHOCYTES # (AUTO) 0.7 X 10^3 (1.0-4.0); LYMPHOCYTES % (AUTO) 5 % (12-44); MEAN CORPUSCULAR HEMOGLOBIN 28 PG (25-34); MEAN CORPUSCULAR HGB CONC 33 G/DL (32-36); MEAN CORPUSCULAR VOLUME 86 FL (80-99); MEAN PLATELET VOLUME 11.3 FL (7.4-10.4); MONOCYTES # (AUTO) 0.8 X 10^3 (0.0-1.0); MONOCYTES % (AUTO) 5 % (0-12); NEUTROPHILS # (AUTO) 13.2 X 10^3 (1.8-7.8); NEUTROPHILS % (AUTO) 90 % (42-75); PLATELET COUNT 382 10^3/uL (130-400); RED BLOOD COUNT 4.49 10^6/uL (4.35-5.85); RED CELL DISTRIBUTION WIDTH 15.7 % (10.0-14.5); WHITE BLOOD COUNT 14.7 10^3/uL (4.3-11.0)
[2016-11-16 04:50] LABS: ANION GAP 14 MMOL/L (5-14); BLOOD UREA NITROGEN 49 MG/DL (7-18); BUN/CREATININE RATIO 43; CALCIUM 8.1 MG/DL (8.5-10.1); CARBON DIOXIDE 24 MMOL/L (21-32); CHLORIDE 103 MMOL/L (98-107); CREATININE SERUM 1.13 MG/DL (0.60-1.30); GFR ESTIMATED > 60; GLUCOSE 111 MG/DL (70-105); PHOSPHORUS 2.7 MG/DL (2.3-4.7); POTASSIUM 3.3 MMOL/L (3.6-5.0); SODIUM 141 MMOL/L (135-145)
[2016-11-16] MEDS: inSUlin (REGULAR) HUMAN 1 UNIT/0.01 ML (CHARGE PER UNIT) SC SCH ×4 (05:38→23:16)
--- NOTE | 2016-11-16 07:33 | Pulmonary Progress Note ---
Subjective Subjective/Events-last exam No complications noted. Exam Exam Vital Signs Date Time Temp Pulse Resp B/P Pulse Ox O2 Delivery O2 Flow Rate FiO2 11/16/16 04:00 98.6 70 20 119/85 96 Room Air 11/16/16 00:00 98.6 Room Air 11/15/16 22:00 95 11/15/16 20:39 98.2 61 20 123/82 95 Room Air 11/15/16 20:00 100 11/15/16 16:00 97.2 77 20 98/68 100 Room Air 11/15/16 12:00 97.2 74 20 128/78 99 Room Air 11/15/16 10:36 99 11/15/16 08:23 97.2 69 20 100/61 99 Room Air 11/15/16 08:00 100 I & O 11/16/16 07:00 Intake Total 2400 ml Output Total 500 ml Balance 1900 ml General Appearance: No Apparent Distress Chronically ill HEENT: Other (Pupils 5 mm and equal react to light face is flushed warm not diaphorecSclerae are nonicteric mucous membranes somew) Neck: Supple Respiratory: No Accessory Muscle Use Decreased Breath Sounds Cardiovascular: No Edema No Murmur Gallop/S3 Capillary Refill: Less Than 3 Seconds Extremity: Other (Feet cool absent pulses no cyanosis appreciated) Skin: Warm/Dry Lymphatic: No Adenopathy Results Lab Laboratory Tests 11/15/16 03:57 11/16/16 03:45 Assessment/Plan Assessment/Plan Pneumonia with sepsis -Levaquin CHF with EF of 20% Acute renal failure - worsening -IVF and monitor Metabolic encephalopathy - improved PAD Nonhealing foot ulcers bilaterally, hx of COPD with current tobacco use -SVNs, Oxygen Debility -PT/OT Pt is doing well. No complications noted. Clinical Quality Measures AMI/AHF: ASA po Prior to arrival: No DVT/VTE Risk/Contraindication: Risk Factor Score Per Nursin RFS Level Per Nursing on Admit: 4+=Very High CHAYITO DE LA ROSA DO Nov 16, 2016 07:33
[2016-11-16] MEDS ORDERED: KCL 20 MEQ TAB (K-DUR) PO NR (07:35)
[2016-11-16 08:00] VITALS: BP 132/93
--- NOTE | 2016-11-16 08:50 | Diagnostic Imaging Report ---
INDICATION: Dyspnea. Compared 11/15/2016. FINDINGS: Infiltrate in the periphery of the mid right lung is progressed. Underlying COPD superimposed/ chronic. The heart size upper limits but stable. No gross overdistention of the vascularity. Chronic left-sided rib deformities posteriorly noted. No effusion or pneumothorax. IMPRESSION: Chronic COPD and chest wall deformities stable. Right lung infiltrate is progressed in density. Dictated by: Dictated on workstation # [id number]
[2016-11-16] MEDS: ASPIRIN E.C. 81 MG (ECOTRIN) TAB PO SCH (09:24)
[2016-11-16] MEDS: ENALAPRIL 2.5 MG (VASOTEC) TAB PO SCH (09:24)
[2016-11-16] MEDS: SUCRALFATE 1 GM (CARAFATE) TAB PO SCH ×2 (09:24→23:16)
[2016-11-16] MEDS: GABAPENTIN 400 MG (NEURONTIN) CAP PO SCH ×3 (09:25→23:15)
[2016-11-16] MEDS: PANTOPRAZOLE 40 MG (PROTONIX) TAB PO SCH (09:25)
[2016-11-16] MEDS: meTOprolol TARTRATE 25 MG (LOPRESSOR) TABLET PO SCH (09:26)
[2016-11-16] MEDS: FUROSEMIDE 40 MG (LASIX) TAB PO SCH (09:26)
--- NOTE | 2016-11-16 09:30 | Physical Therapy Daily Note ---
PT Daily Note-Current Subjective Pt agreeable to PT. Reports, "I walked all the way around yesterday." When questioned if he felt he could manage at home, he responded, "I'm getting there. " Pain Numeric Pain Scale: 0-No Pain Location: No Pain Reported Mental Status Patient Orientation: Person, Place, Time, Situation Transfers Functional [place] Measure 0=Not Assessed/NA 4=Minimal Assistance 1=Total Assistance 5=Supervision or Setup 2=Maximal Assistance 6=Modified [place] 3=Moderate Assistance 7=Complete IndependenceIRFPAI Quality Coding Scale 6 Independent with activity with or without an assistive device 5 Patient requires set up or clean up by helper. Patient completes activity by themselves 4 Supervision or touching assist (CGA). [place] provide cues , steadying assist 3 The helper provides less than half the effort to complete the activity 2 The helper provides more than half the effort to complete the activity 1 Dependent. The helper does all the effort to complete an activity 7 Patient refused to complete or attempt activity 9 The patient did not perform the activity before the current illness or injury 88 Not attempted due to Medical conditions or safety concerns Transfers (B, C, W/C) (FIM): 6 Scootin Rollin Supine to/from Sit: 6 Sit to/from Stand: 6 Bed to/from Chair: 6 Pt able to safely perform all transfers and did not need assist. He self corrected hand placement as well. Pt was able to stand from commode with perform shailesh care without assist as well. Pt stood at sink to wash hands as well. 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 Able to static stand with FWW without noted LOB or concern for safety. He does present with genu valgum right knee and tends to pronate on the right LE with gait--due to knee deformity which does cause some instability \\with gait. Pt reports he needs to have his right knee replaced. Treatments Functional activity with toileting/handwashing and gait training. Assessment Current Status: Good Progress Pt able to perform mobility without assist but does lack functional activity tolerance. No noted LOB or safety concerns with gait or transfers, he just needs extra time to complete. PT Short Term Goals Short Term Goals Transfers (B,C,W/C) (FIM): 3 PT Press Tender Goals Press Tender Goals PT [facility] Goals Time Frame: Nov 25, 2016 Transfers (B,C,W/C) (FIM): 6 (met ) Gait (FIM): 6 Gait distance (FIM): 3=150 ft Distance: 250' Gait Level of Assist: 6 Gait Assistive Device: FWW PT Plan Problem List Problem List: Activity Tolerance, Functional Strength Treatment/Plan Treatment Plan: Continue Plan of Care Treatment Plan: Bed Mobility, Education, Functional Activity Juli, Functional Strength, Gait, Safety, Therapeutic Exercise, Transfers Treatment Duration: Nov 25, 2016 Visits Per Week: 5-6 Minutes/Day (Sat/Ferrara): PRN Safety Risks/Education Patient Education: Safety Issues Teaching Recipient: Patient Teaching Methods: Discussion Response to Teaching: Verbalize Understanding Time/GCodes Time In: 850 Time Out: 919 Total Billed Treatment Time: 29 Total Billed Treatment visit FA 14 GT 15 SOMMER PARRY PT Nov 16, 2016 09:30
--- NOTE | 2016-11-16 10:05 | Progress Note-Hospitalist ---
Progress Note HPI/CC on Admission the patient is a 71-year-old white male brought into the emergency room febrile and Obtunded. He was noted to have right middle and right diagnosis of pneumonia with sepsis. Upon my arrival he would open his eye He did not appear to be in respiratory with oxygen his saturations were 94 perce and he was not using accessory muscle with respiratory rate of 18. The remainder his history was taken from the chart. 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 I contacted inpatient rehabilitation and already has PT orders Vitals stable, pleasant, oriented 3, chronically ill but much improved Irregular irregular rhythm at 98, diminished breath sounds all pineda much improved Trace edema noted Laboratory Tests 11/16/16 03:45 Assessment: s/p vent-dependent respiratory failure and severe COPD and current tobacco user s/p pneumonia Acute renal failure improved Hypernatremia stable Atrial fibrillation paroxysmal-type with rapid ventricular response requiring amiodarone drip Hypokalemia Agitation with fall risk Plan Poor prognosis long-term considering the severity of his COPD and current smoking status now improved enough to entertain IRU Cardiology and pulmonology consultation management appreciated Social service consult for placement if not a candidate for IRU OCTAVIO BROWN DO Nov 16, 2016 10:05
--- NOTE | 2016-11-16 10:47 | Occ Therapy Progress Note ---
Therapy Progress Note 1040 Pt seen in room, up in recliner, very sleepy. Had already taken a shower and walked with PT. Pt declined ADLs due to fatigue. Clothing left in room, all needs met. ERNESTINA BAUER OT Nov 16, 2016 10:47
--- NOTE | 2016-11-16 10:51 | Cardiology Progress Note ---
Subjective Subjective/Events-last exam Patient in chair. No new complaint. Denies any CP. Appears lethargic, but A&O x 3. Review of Systems General: No Night Sweats, Fatigue MalaiseNo Appetite HEENT: No Visual Changes, No Dysphasia, No Sore Throat Pulmonary: No Dyspnea, No Cough, No Pleuritic Chest Pain Cardiovascular: No: Chest Pain, Edema, Orthopnea, Palpitations, Paroxysmal Noc. Dyspnea Gastrointestinal: No: Abdominal Pain, Nausea, Vomiting Genitourinary: No Dysuria, No Frequency Musculoskeletal: No: back pain, neck pain Neurological: : WeaknessNo: Change in speech, Confusion, Numbness Objective-Cardiology Exam Last Set of Vital Signs Vital Signs 11/13/16 11/14/16 11/16/16 08:50 18:00 08:00 Temp 98.1 Pulse 77 Resp 16 B/P 132/93 Pulse Ox 98 O2 Delivery Room Air O2 Flow Rate 2.00 FiO2 30 Capillary Refill : Less Than 3 SecondsLess Than 3 Seconds I&O Intake and Output 11/16/16 00:00 Intake Total 2250 ml Output Total 400 ml Balance 1850 ml Intake Oral 2150 ml IV Total 100 ml Output Urine Total 400 ml # Voids 2 # Urine Diapers 6 # Bowel Movements 9 General: Alert, Oriented X3, Cooperative, Mild Distress HEENT: Atraumatic, PERRLA Neck: Supple, No JVD, No Thyromegaly Lungs: Normal Air Movement, Other (bilateral rhonchi) Heart: Normal S1, Normal S2, No Murmurs, Other (S3 is present) Abdomen: Normal Bowel Sounds, Soft, No Tenderness, No Hepatosplenomegaly, No Masses Extremities: No Clubbing, No Edema, No Tenderness/Swelling, Other (pulses detected by Doppler bilaterally, bilateral foot ulcers) Skin: Other (R calf --- 3.0 x 3.5 x 0.1 cm, base 100% regeneating tisssue.) Neuro: Normal Speech, Normal Tone Psych/Mental Status: Mood NL Results Lab Laboratory Tests 11/16/16 03:45 A/P-Cardiology Admission Diagnosis Acute change in mental status Pneumonia Peripheral arterial disease Coronary artery disease Assessment/Plan Acute change in mental status, probably secondary to sepsis and pneumonia, anoxic encephalopathy, significant improvement, still lethargic. Continue on antibiotics Sepsis, improved with antibiotics. Feeling better. Elevated troponin, no acute EKG changes, cardiac catheterization done last week showing nonobstructive coronary artery disease. Medical therapy recommended. Congestive heart failure, EF 20% per 2D Echo, nonischemic cardiomyopathy acute left ventricular systolic dysfunction, continue on beta blockers and DARREL inhibitor and increase enalapril dose. Continue on diuretics. Paroxysmal atrial fibrillation, occurred while in respiratory failure, responded to IV amiodarone, currently in sinus rhythm. Receiving Xarelto. Continue to monitor closely. Acute renal failure, continue to monitor renal function Pneumonia, extensive right-sided pneumonia, improving, continue on antibiotics. Nonhealing foot ulcers bilaterally, on the right side is on the outside portion of the ankle, SEAMUS on the right is 0.57, on the left side the ulcer is on the inner part of the foot, SEAMUS 0.32, angiogram showed SFA disease bilaterally, trifurcation was not seen on the right side due to knee replacement. Planning for intervention once clinically stable Hypertension, Continue to monitor blood pressure Hyperlipidemia, continue current medication and monitor lipids Hyperthyroidism, history of hypothyroidism and Levothyroid, managed by primary care physician History of pulmonary hypertension, continue to monitor History of rheumatoid arthritis. COPD, managed and followed by primary care physician Tobaccoism, educated on smoking cessation History of chronic narcotic use, urine drug screen is positive for opioids Clinical Quality Measures AMI/AHF: ASA po Prior to arrival: No DVT/VTE Risk/Contraindication: Risk Factor Score Per Nursin RFS Level Per Nursing on Admit: 4+=Very High FATUMA GARCES Nov 16, 2016 10:51
--- NOTE | 2016-11-16 10:57 | Cardiology Progress Note ---
Subjective Subjective/Events-last exam patient is sitting in a chair, feeling better, able to hold a conversation. Denied any chest pain, denied any palpitation. Asking about going home. Still having some generalized weakness. Review of Systems General: No Chills, No Night Sweats, No Fatigue, No Malaise, No Appetite, No Other HEENT: No Head Aches, No Visual Changes, No Eye Pain, No Ear Pain, No Dysphasia , No Sinus Congestion, No Post Nasal Drip, No Sore Throat, No Other Pulmonary: DyspneaNo Cough, No Pleuritic Chest Pain, No Other Cardiovascular: No: Chest Pain, Edema, Lt Headedness, Orthopnea, Other, Palpitations, Paroxysmal Noc. Dyspnea Objective-Cardiology Exam Last Set of Vital Signs Vital Signs 11/13/16 11/14/16 11/16/16 08:50 18:00 08:00 Temp 98.1 Pulse 77 Resp 16 B/P 132/93 Pulse Ox 98 O2 Delivery Room Air O2 Flow Rate 2.00 FiO2 30 Capillary Refill : Less Than 3 SecondsLess Than 3 Seconds I&O Intake and Output 11/16/16 00:00 Intake Total 2250 ml Output Total 400 ml Balance 1850 ml Intake Oral 2150 ml IV Total 100 ml Output Urine Total 400 ml # Voids 2 # Urine Diapers 6 # Bowel Movements 9 General: Alert, Oriented X3, Cooperative, No Acute Distress HEENT: Atraumatic, PERRLA Neck: Supple, No JVD, No Thyromegaly Lungs: Clear to Auscultation, Normal Air Movement Heart: Regular Rate, Normal S1, Normal S2, No Murmurs, Other (S3 is present) Abdomen: Normal Bowel Sounds, Soft, No Tenderness, No Hepatosplenomegaly, No Masses Extremities: No Clubbing, No Edema, No Tenderness/Swelling, Other (pulses detected by Doppler bilaterally, bilateral foot ulcers) Skin: Other (R calf --- 3.0 x 3.5 x 0.1 cm, base 100% regeneating tisssue.) Neuro: Normal Speech, Normal Tone Psych/Mental Status: Mood NL Results Lab Laboratory Tests 11/16/16 03:45 A/P-Cardiology Admission Diagnosis Acute change in mental status Pneumonia Peripheral arterial disease Coronary artery disease Assessment/Plan Status post acute change in mental status, probably secondary to sepsis and pneumonia, anoxic encephalopathy, significant improvement, sick complaint of generalized weakness. Continue to monitor. Okay for transfer to IRU Sepsis, improved with antibiotics. Feeling better. Elevated troponin, no acute EKG changes, cardiac catheterization done last week showing nonobstructive coronary artery disease. Medical therapy recommended. Congestive heart failure, EF 20% per 2D Echo, nonischemic cardiomyopathy acute left ventricular systolic dysfunction, nonischemic cardiomyopathy probably secondary to hypoxemia and sepsis, continue on beta blockers and DARREL inhibitor and increase enalapril dose. Continue on diuretics. Paroxysmal atrial fibrillation, occurred while in respiratory failure, responded to IV amiodarone, currently in sinus rhythm. Receiving Xarelto. Continue to monitor closely. Acute renal failure, continue to monitor renal function Pneumonia, extensive right-sided pneumonia, improving, continue on antibiotics. Nonhealing foot ulcers bilaterally, on the right side is on the outside portion of the ankle, SEAMUS on the right is 0.57, on the left side the ulcer is on the inner part of the foot, SEAMUS 0.32, angiogram showed SFA disease bilaterally, trifurcation was not seen on the right side due to knee replacement. Planning for intervention once clinically stable Hypertension, Continue to monitor blood pressure Hyperlipidemia, continue current medication and monitor lipids Hyperthyroidism, history of hypothyroidism and Levothyroid, managed by primary care physician History of pulmonary hypertension, continue to monitor History of rheumatoid arthritis. COPD, managed and followed by primary care physician Tobaccoism, educated on smoking cessation History of chronic narcotic use, urine drug screen is positive for opioids Clinical Quality Measures AMI/AHF: ASA po Prior to arrival: No DVT/VTE Risk/Contraindication: Risk Factor Score Per Nursin RFS Level Per Nursing on Admit: 4+=Very High TORY HALL MD Nov 16, 2016 10:57
[2016-11-16] MEDS ORDERED: ENAL2.5T PO (10:59)
[2016-11-16] MEDS ORDERED: ATOR20TA66 PO (10:59)
[2016-11-16] MEDS ORDERED: RIVA15TA PO (11:01)
[2016-11-16 12:00] VITALS: BP 111/88
[2016-11-16 16:00] VITALS: BP 100/78
[2016-11-16] MEDS: RIVAROXABAN 15 MG TABLET (XARELTO) PO SCH (18:48)
[2016-11-16 20:00] VITALS: BP 103/60
[2016-11-16 23:16] VITALS: BP 116/70
[2016-11-16] MEDS: ATORVASTATIN 20 MG (LIPITOR) TABLET PO SCH (23:16)
[2016-11-16] MEDS: CARVEDILOL 12.5 MG (COREG) TABLET PO SCH (23:16)
[2016-11-17] MEDS: methylPREDNISolone 40 MG/ML (Solu-MEDROL) VIAL IV SCH ×2 (00:26→05:17)
[2016-11-17] MEDS: RT-ALBUTEROL/IPRATROPIUM 3 ML (DUONEB) VIAL INH SCH ×4 (02:42→15:51)
[2016-11-17 04:00] VITALS: BP 125/82
[2016-11-17 05:37] LABS: BASOPHILS % (AUTO) 0 % (0-10); EOSINOPHILS % (AUTO) 0 % (0-10); LYMPHOCYTES # (AUTO) 0.7 X 10^3 (1.0-4.0); LYMPHOCYTES % (AUTO) 4 % (12-44); MEAN CORPUSCULAR HEMOGLOBIN 28 PG (25-34); MEAN CORPUSCULAR HGB CONC 33 G/DL (32-36); MEAN CORPUSCULAR VOLUME 86 FL (80-99); MEAN PLATELET VOLUME 11.2 FL (7.4-10.4); MONOCYTES # (AUTO) 0.8 X 10^3 (0.0-1.0); MONOCYTES % (AUTO) 4 % (0-12); NEUTROPHILS # (AUTO) 18.4 X 10^3 (1.8-7.8); NEUTROPHILS % (AUTO) 92 % (42-75); PLATELET COUNT 403 10^3/uL (130-400); RED BLOOD COUNT 4.44 10^6/uL (4.35-5.85); RED CELL DISTRIBUTION WIDTH 15.8 % (10.0-14.5); WHITE BLOOD COUNT 19.9 10^3/uL (4.3-11.0)
[2016-11-17 05:58] LABS: ANION GAP 13 MMOL/L (5-14); BLOOD UREA NITROGEN 45 MG/DL (7-18); BUN/CREATININE RATIO 39; CALCIUM 8.2 MG/DL (8.5-10.1); CARBON DIOXIDE 23 MMOL/L (21-32); CHLORIDE 105 MMOL/L (98-107); CREATININE SERUM 1.16 MG/DL (0.60-1.30); GFR ESTIMATED > 60; GLUCOSE 104 MG/DL (70-105); PHOSPHORUS 3.3 MG/DL (2.3-4.7); POTASSIUM 3.9 MMOL/L (3.6-5.0); SODIUM 141 MMOL/L (135-145)
[2016-11-17] MEDS: inSUlin (REGULAR) HUMAN 1 UNIT/0.01 ML (CHARGE PER UNIT) SC SCH ×3 (06:00→15:48)
[2016-11-17 06:33] LABS: BAND NEUTROPHILS 0 %; BASOPHILS % (MANUAL) 0 %; EOSINOPHILS % (MANUAL) 0 %; LYMPHOCYTES % (MANUAL) 3 %; NEUTROPHILS % (MANUAL) 93 %
[2016-11-17 07:36] VITALS: BP 135/75
--- NOTE | 2016-11-17 08:15 | Cardiology Progress Note ---
Subjective Subjective/Events-last exam Patient sitting up in bed. Appears significantly improved. Denies any CP or dyspnea. Review of Systems General: No Night Sweats, No Fatigue, No Malaise HEENT: No Visual Changes, No Dysphasia, No Sore Throat Pulmonary: No Dyspnea, No Cough, No Pleuritic Chest Pain Cardiovascular: No: Chest Pain, Edema, Palpitations, Paroxysmal Noc. Dyspnea Gastrointestinal: No: Abdominal Pain, Nausea, Vomiting Genitourinary: No Dysuria, No Frequency Musculoskeletal: No: back pain, neck pain Neurological: : WeaknessNo: Change in speech, Confusion, Numbness Objective-Cardiology Exam Last Set of Vital Signs Vital Signs 11/13/16 11/14/16 11/17/16 08:50 18:00 07:36 Temp 97.2 Pulse 84 Resp 18 B/P 135/75 Pulse Ox 95 O2 Delivery Room Air O2 Flow Rate 2.00 FiO2 30 Capillary Refill : Less Than 3 SecondsLess Than 3 Seconds I&O Intake and Output 11/17/16 00:00 Intake Total 1400 ml Output Total 1100 ml Balance 300 ml Intake Oral 1400 ml Output Urine Total 1100 ml # Voids 2 # Bowel Movements 1 General: Alert, Oriented X3, Cooperative, No Acute Distress HEENT: Atraumatic, PERRLA Neck: Supple, No JVD, No Thyromegaly Lungs: Clear to Auscultation, Normal Air Movement Heart: Regular Rate, Normal S1, Normal S2, No Murmurs, Other (S3 is present) Abdomen: Normal Bowel Sounds, Soft, No Tenderness, No Hepatosplenomegaly, No Masses Extremities: No Clubbing, No Edema, No Tenderness/Swelling, Other (pulses detected by Doppler bilaterally, bilateral foot ulcers) Skin: Other (R calf --- 3.0 x 3.5 x 0.1 cm, base 100% regeneating tisssue.) Neuro: Normal Speech, Normal Tone Psych/Mental Status: Mood NL Results Lab Laboratory Tests 11/17/16 05:16 A/P-Cardiology Admission Diagnosis Acute change in mental status Pneumonia Peripheral arterial disease Coronary artery disease Assessment/Plan Status post acute change in mental status, probably secondary to sepsis and pneumonia, anoxic encephalopathy, significant improvement,continue to monitor. Okay for transfer to IRU Sepsis, improved with antibiotics. Feeling better. Elevated troponin, no acute EKG changes, cardiac catheterization done last week showing nonobstructive coronary artery disease. Medical therapy recommended. Congestive heart failure, EF 20% per 2D Echo, nonischemic cardiomyopathy acute left ventricular systolic dysfunction, nonischemic cardiomyopathy probably secondary to hypoxemia and sepsis, continue on beta blockers and DARREL inhibitor and increase enalapril dose. Continue on diuretics. LifeVest ordered yesterday Paroxysmal atrial fibrillation, occurred while in respiratory failure, responded to IV amiodarone, currently in sinus rhythm. Receiving Xarelto. Continue to monitor closely. Acute renal failure,improved. continue to monitor renal function Pneumonia, extensive right-sided pneumonia, improving, continue on antibiotics. Nonhealing foot ulcers bilaterally, on the right side is on the outside portion of the ankle, SEAMUS on the right is 0.57, on the left side the ulcer is on the inner part of the foot, SEAMUS 0.32, angiogram showed SFA disease bilaterally, trifurcation was not seen on the right side due to knee replacement. Planning for intervention once clinically stable Hypertension, Continue to monitor blood pressure Hyperlipidemia, continue current medication and monitor lipids Hyperthyroidism, history of hypothyroidism and Levothyroid, managed by primary care physician History of pulmonary hypertension, continue to monitor History of rheumatoid arthritis. COPD, managed and followed by primary care physician Tobaccoism, educated on smoking cessation History of chronic narcotic use, urine drug screen is positive for opioids Clinical Quality Measures AMI/AHF: ASA po Prior to arrival: No DVT/VTE Risk/Contraindication: Risk Factor Score Per Nursin RFS Level Per Nursing on Admit: 4+=Very High FATUMA GARCES Nov 17, 2016 08:15
--- NOTE | 2016-11-17 08:53 | Diagnostic Imaging Report ---
INDICATION: Dyspnea. TECHNIQUE: Single view chest 4:42 AM. CORRELATION STUDY: 11/16/2016 FINDINGS: Changes of COPD with likely scattered areas of fibrosis particularly in the right mid lung. There is what appears to be continued infiltrate in the periphery of the right mid lung, stable. Left lung unchanged. Small nodule left lung base. Heart size and mediastinum relatively stable. There is abnormal fullness of the right lee ann. Deformity about the left ribs. IMPRESSION: 1. Continued but improved appearance of infiltrate to the peripheral right mid lung. Findings superimposed on changes of COPD. 2. Irregular fullness of the right lee ann. Continued short-term followup imaging is recommended. CT imaging may be indicated to exclude underlying mass lesion. Dictated by: Dictated on workstation # [id number]
[2016-11-17] MEDS ORDERED: MORP30TA60 PO (08:58)
[2016-11-17] MEDS ORDERED: PRED10TA22 PO (08:58)
[2016-11-17] MEDS ORDERED: HYDR-3820 PO (08:58)
--- NOTE | 2016-11-17 09:01 | Discharge Inst-Skilled Nursing ---
Discharge Inst-Skilled NF Chief Complaint the patient is a 71-year-old white male brought into the emergency room febrile and Obtunded. He was noted to have right middle and right diagnosis of pneumonia with sepsis. Upon my arrival he would open his eye He did not appear to be in respiratory with oxygen his saturations were 94 perce and he was not using accessory muscle with respiratory rate of 18. The remainder his history was taken from the chart. Patient Instructions Patient Problems: CHF COPD s/p pneumonia Goal: Return home Consult/Follow Up/Orders Follow Up Appt.: Dr Grajeda in 2 weeks Skilled NF [facility] [facility] ([facility]) I certify that SNF services are required to be given on an inpatient basis because of the above named patient's need for [place] [facility] care on a continuing basis for the conditions(s) for which he/she was receiving inpatient hospital services prior to his/her transfer to the SNF. [facility] Order: Nursing Services, Last Scourer-Evaluate & Treat, Physical Therapy-Evaluate & Treat, Speech Language-Evaluate & Treat Discharge Diet: Low Sodium Diet, Cardiac Diet Daily Activity as Tolerated: Yes New & Resume Previous Orders New Medications: Hydrocodone/Acetaminophen (Hydrocodon-Acetaminophn 10-325) 1 Each Tablet 1 EACH PO Q6H PRN PAIN #60 TAB Morphine Sulfate (Ms Contin) 30 Mg Tablet.er 30 MG PO Q8H #60 TAB Prednisone (Prednisone) 10 Mg Tab.ds.pk 10 MG PO DAILY Take 6 tabs(60mg)daily,decrease by 1 tab(10mg)every other day. # 42 PKG Atorvastatin Calcium (Atorvastatin Calcium) 20 Mg Tablet 40 MG PO HS #30 Ref 4 TAB Enalapril Maleate (Enalapril Maleate) 2.5 Mg Tablet 2.5 MG PO DAILY #30 TAB Rivaroxaban (Xarelto) 15 Mg Tablet 15 MG PO DAILY@1700 #30 Ref 0 TAB Continued Medications: Albuterol Sulfate/Ipratropium (Duoneb 2.5-0.5 Mg/3 Ml Soln) 3 Ml Solution 3 ML IH QID PRN SHORTNESS OF BREATH Aspirin (Aspirin Ec 81 Mg) 81 Mg Tabec 81 MG PO DAILY Carvedilol (Coreg) 12.5 Mg Tablet 12.5 MG PO BID Gabapentin (Gabapentin) 800 Mg Tablet 800 MG PO TID TAB Hydrocodone Bit/Acetaminophen (Hydrocodone-Apap 10-325 Tablet) 1 Each Tablet 1 TAB PO EVERY 4-6 HOURS PRN MODERATE PAIN Levothyroxine Sodium (Levothroid) 175 Mcg Tablet 175 MCG PO DAILY Morphine Sulfate (Ms Contin 30 Mg (12 HOUR)) 30 Mg Tablet 30 MG PO Q8H PRN SEVERE PAIN Ondansetron (Ondansetron Odt) 8 Mg Tab.rapdis 8 MG PO Q8H PRN NAUSEA/VOMITING TAB Pantoprazole Sod (Protonix Tab) 40 Mg Tab 40 MG PO DAILY Sucralfate (Sucralfate) 1 Gm Tablet 1 GM PO BID TAB Tizanidine HCl (Tizanidine HCl) 4 Mg Tablet 6 MG PO TID TAKES 1 & 1/2 OF A (4 MG) TABLET TAB Discontinued Medications: Hydrochlorothiazide (Hydrochlorothiazide) 25 Mg Tablet 25 MG PO DAILY Pramipexole Di-Hcl (Mirapex) 0.25 Mg Tablet 0.25 MG PO DAILY Pravastatin Sodium (Pravachol) 20 Mg Tablet 20 MG PO DAILY Gabi Urbano Nov 17, 2016 08:59 Pneu Vac Indicated: Yes GABI URBANO DO Nov 17, 2016 09:01
[2016-11-17] MEDS: ENALAPRIL 2.5 MG (VASOTEC) TAB PO SCH (09:04)
[2016-11-17] MEDS: PANTOPRAZOLE 40 MG (PROTONIX) TAB PO SCH (09:04)
[2016-11-17] MEDS: CARVEDILOL 12.5 MG (COREG) TABLET PO SCH (09:04)
[2016-11-17] MEDS: SUCRALFATE 1 GM (CARAFATE) TAB PO SCH (09:04)
[2016-11-17] MEDS: FUROSEMIDE 40 MG (LASIX) TAB PO SCH (09:04)
[2016-11-17] MEDS: ASPIRIN E.C. 81 MG (ECOTRIN) TAB PO SCH (09:05)
[2016-11-17] MEDS: GABAPENTIN 400 MG (NEURONTIN) CAP PO SCH ×2 (09:05→13:26)
--- NOTE | 2016-11-17 10:17 | Physical Therapy Daily Note ---
PT Daily Note-Current Subjective Agreeable to PT. Unsure if he is leaving today or not. Awaiting a life vest. Pain Numeric Pain Scale: 7 Location: Right Location Body Site: Knee Pain Description: Ache, Stabbing Comment: after prolonged activity. Mental Status Patient Orientation: Person, Place, Time, Situation Transfers Functional [place] Measure 0=Not Assessed/NA 4=Minimal Assistance 1=Total Assistance 5=Supervision or Setup 2=Maximal Assistance 6=Modified [place] 3=Moderate Assistance 7=Complete IndependenceIRFPAI Quality Coding Scale 6 Independent with activity with or without an assistive device 5 Patient requires set up or clean up by helper. Patient completes activity by themselves 4 Supervision or touching assist (CGA). [place] provide cues , steadying assist 3 The helper provides less than half the effort to complete the activity 2 The helper provides more than half the effort to complete the activity 1 Dependent. The helper does all the effort to complete an activity 7 Patient refused to complete or attempt activity 9 The patient did not perform the activity before the current illness or injury 88 Not attempted due to Medical conditions or safety concerns Transfers (B, C, W/C) (FIM): 4 Supine to/from Sit: 4 (min assist to get left leg out of bed this morning. ) Sit to/from Stand: 6 Needed light assist to get out of bed this morning. Gait Training Gait (FIM): 5 Distance: 300 ft Gait Level of Assist: 5 Gait Assistive Device: FWW Supervision with gait due to slight instability, genu valgum right knee. Gait is slow but steady, Treatments Safety education and gait progression. Pt is slow with mobility and takes extra time to complete. Assessment Current Status: Good Progress Progressing and gait distance improving. PT Short Term Goals Short Term Goals Transfers (B,C,W/C) (FIM): 3 PT Supervisor Case Loading Goals Supervisor Case Loading Goals PT Skilled Nursing Goals Time Frame: Nov 25, 2016 Transfers (B,C,W/C) (FIM): 6 (met ) Gait (FIM): 6 Gait distance (FIM): 3=150 ft Distance: 250' Gait Level of Assist: 6 Gait Assistive Device: FWW PT Plan Problem List Problem List: Activity Tolerance, Functional Strength, Safety, Gait, Transfer, Bed Mobility Treatment/Plan Treatment Plan: Continue Plan of Care (versus DC) Treatment Plan: Bed Mobility, Education, Functional Activity Juli, Functional Strength, Gait, Safety, Therapeutic Exercise, Transfers Treatment Duration: Nov 25, 2016 Visits Per Week: 5-6 Minutes/Day (Sat/Ferrara): PRN Safety Risks/Education Patient Education: Safety Issues Teaching Recipient: Patient Teaching Methods: Discussion Response to Teaching: Verbalize Understanding, Reinforcement Needed Time/GCodes Time In: 950 Time Out: 1013 Total Billed Treatment Time: 23 Total Billed Treatment visit GT 23 SOMMER PARRY PT Nov 17, 2016 10:17
--- NOTE | 2016-11-17 10:32 | Discharge Summary-Hospitalist ---
Diagnosis/Chief Complaint Date of Admission Nov 07, 2016 at 14:12 Date of Discharge Discharge Date: Nov 17, 2016 Admission Diagnosis 1. Right middle and right lower lobe pneumonia suspect mucous pluggi can't rule out postobstructive process considering absent breath sounds. 2. Severe sepsis secondary to number 1 blood pressure has improved and acute kidney injury secondary to dehydra improving with fluid bolus continue IV fluids and antibiotic coverage. 3. Likely type II MT as the EKG does not show any ischemic changes will defer to Dr. Garcia. Overall prognosis is still quite poor. 4. Probable underlying significant COPD 5. Likely underlying significant peripheral vascular disease. Discharge Diagnosis Patient doing much better and overall improved enough for inpatient rehabilitation since [place] decline since he is too high functioning Patient now off antibiotics and overall doing very well Very weak and needs rehabilitation to practice with his walker and then he wants to go home caregiver services home on board I contacted inpatient rehabilitation and already has PT orders Vitals stable, pleasant, oriented 3, chronically ill but much improved Irregular irregular rhythm at 98, diminished breath sounds all pineda much improved Trace edema noted Laboratory Tests 11/16/16 03:45 Assessment: s/p vent-dependent respiratory failure and severe COPD and current tobacco user s/p pneumonia Acute renal failure improved Hypernatremia stable Atrial fibrillation paroxysmal-type with rapid ventricular response requiring amiodarone drip Hypokalemia Agitation with fall risk CHF severe EF 20% in need of life vest Plan Poor prognosis long-term considering the severity of his COPD and current smoking status now improved enough to entertain IRU Cardiology and pulmonology consultation management appreciated Social service consult for placement if not a candidate for IRU Reason Hospital Visit/Course the patient is a 71-year-old white male brought into the emergency room febrile and Obtunded. He was noted to have right middle and right diagnosis of pneumonia with sepsis. Upon my arrival he would open his eye He did not appear to be in respiratory with oxygen his saturations were 94 perce and he was not using accessory muscle with respiratory rate of 18. The remainder his history was taken from the chart. Notes from 11/17/2016: Patient Interview: Pt requests life vest. Pt states that he feels stable for DC. Pt states that his BMs are normal. Physical exam stable. no fever, vital stable, pleasant, sitting at side of bed Regular with irregular rhythm, clear to auscultation bilaterally but diminished breath sounds in the bases No edema Plan: Life vest DC to [facility] on Skilled DC with pain meds Dr. Grajeda updated Scribed by Bhargav Chase under the direct supervision of Dr. Brown. Hospital course: Patient had a lengthy hospital course most of it required intubation and reintubation in ICU due to respiratory failure from pneumonia and acute exacerbation of COPD along with congestive heart failure with ejection fraction of 20 percent with atrial fibrillation with rapid ventricular response. Consultations with pulmonary and cardiology and pseudotumor much appreciated. Diuresis ensued and overall he rebounded from such critical illness that he had completed IV antibiotics will hospitalized so pneumonia was completed treatment and atrial fibrillation was rate controlled and cardiology recommended life vest placement and alf was arranged for skilled therapy and will be monitored closely in the meantime. Patient's primary care provider Dr. Grajeda was updated regarding the alf admission for skilled therapy all pain medication that he takes home was printed off and sent with the patient to the alf and he will be discharged once the LifeVest is fitted. Discharge Summary Discharge Physical Examination Allergies: Coded Allergies: Sulfa (Sulfonamide Antibiotics) (Unverified Allergy, Unknown, 11/07/16) Vitals & I&Os Vital Signs Date Time Temp Pulse Resp B/P Pulse Ox O2 Delivery O2 Flow Rate FiO2 11/17/16 10:39 98 11/17/16 07:36 97.2 84 18 135/75 Room Air 11/14/16 18:00 2.00 11/13/16 08:50 30 Hospital Course Labs (last 24 hrs) Laboratory Tests 11/16/16 18:47: Glucometer 161H 11/16/16 22:10: Glucometer 129H 11/17/16 05:09: Glucometer 97 11/17/16 05:16: Anion Gap 13, BUN/Creatinine Ratio 39, Band Neutrophils 0, Basophils # (Auto) 0.0, Basophils % (Manual) 0, Basophils (%) (Auto) 0, Blood Morphology Comment NORMAL, Blood Urea Nitrogen 45H, Calcium Level 8.2L, Carbon Dioxide Level 23, Chloride Level 105, Creatinine 1.16, Eosinophils # (Auto) 0.0, Eosinophils % ( Manual) 0, Eosinophils (%) (Auto) 0, Estimat Glomerular Filtration Rate > 60, Glucose Level 104, Hematocrit 38L, Hemoglobin 12.5L, Lymphocytes # (Auto) 0.7L, Lymphocytes % (Manual) 3, Lymphocytes (%) (Auto) 4L, Magnesium Level 2.0, Mean Corpuscular Hemoglobin 28, Mean Corpuscular Hemoglobin Concent 33, Mean Corpuscular Volume 86, Mean Platelet Volume 11.2H, Monocytes # (Auto) 0.8, Monocytes % (Manual) 4, Monocytes (%) (Auto) 4, Neutrophils # (Auto) 18.4H, Neutrophils % (Manual) 93, Neutrophils (%) (Auto) 92H, Phosphorus Level 3.3, Platelet Count 403H, Potassium Level 3.9, Red Blood Count 4.44, Red Cell Distribution Width 15.8H, Sodium Level 141, White Blood Count 19.9H 11/17/16 06:16: Glucometer 94 11/17/16 10:18: Glucometer 93 Microbiology 11/07/16 Blood Culture - Final, Complete No growth 11/11/16 Influenza Types A,B Antigen (DIONISIO) - Final, Complete 11/11/16 Urine Culture - Final, Complete NO GROWTH Pending Labs Laboratory Tests 11/17/16 05:09: Glucometer 97 11/17/16 05:16: Anion Gap 13, BUN/Creatinine Ratio 39, Band Neutrophils 0, Basophils # (Auto) 0.0, Basophils % (Manual) 0, Basophils (%) (Auto) 0, Blood Morphology Comment NORMAL, Blood Urea Nitrogen 45, Calcium Level 8.2, Carbon Dioxide Level 23, Chloride Level 105, Creatinine 1.16, Eosinophils # (Auto) 0.0, Eosinophils % ( Manual) 0, Eosinophils (%) (Auto) 0, Estimat Glomerular Filtration Rate > 60, Glucose Level 104, Hematocrit 38, Hemoglobin 12.5, Lymphocytes # (Auto) 0.7, Lymphocytes % (Manual) 3, Lymphocytes (%) (Auto) 4, Magnesium Level 2.0, Mean Corpuscular Hemoglobin 28, Mean Corpuscular Hemoglobin Concent 33, Mean Corpuscular Volume 86, Mean Platelet Volume 11.2, Monocytes # (Auto) 0.8, Monocytes % (Manual) 4, Monocytes (%) (Auto) 4, Neutrophils # (Auto) 18.4, Neutrophils % (Manual) 93, Neutrophils (%) (Auto) 92, Phosphorus Level 3.3, Platelet Count 403, Potassium Level 3.9, Red Blood Count 4.44, Red Cell Distribution Width 15.8, Sodium Level 141, White Blood Count 19.9 11/17/16 06:16: Glucometer 94 11/17/16 10:18: Glucometer 93 Discharge Home Medications: Active Scripts Active Hydrocodon-Acetaminophn 10-325 (Hydrocodone/Acetaminophen) 1 Each Tablet 1 Each PO Q6H PRN Ms Contin (Morphine Sulfate) 30 Mg Tablet.er 30 Mg PO Q8H Prednisone 10 Mg Tab.ds.pk 10 Mg PO DAILY Take 6 tabs(60mg)daily,decrease by 1 tab(10mg)every other day. Xarelto (Rivaroxaban) 15 Mg Tablet 15 Mg PO DAILY@1700 Enalapril Maleate 2.5 Mg Tablet 2.5 Mg PO DAILY Atorvastatin Calcium 20 Mg Tablet 40 Mg PO HS Reported Sucralfate 1 Gm Tablet 1 Gm PO BID Ondansetron Odt (Ondansetron) 8 Mg Tab.rapdis 8 Mg PO Q8H PRN Tizanidine HCl 4 Mg Tablet 6 Mg PO TID TAKES 1 & 1/2 OF A (4 MG) TABLET Gabapentin 800 Mg Tablet 800 Mg PO TID Ms Contin 30 Mg (12 HOUR) (Morphine Sulfate) 30 Mg Tablet 30 Mg PO Q8H PRN Pravachol (Pravastatin Sodium) 20 Mg Tablet 20 Mg PO DAILY Duoneb 2.5-0.5 Mg/3 Ml Soln (Albuterol Sulfate/Ipratropium) 3 Ml Solution 3 Ml IH QID PRN Hydrochlorothiazide 25 Mg Tablet 25 Mg PO DAILY Coreg (Carvedilol) 12.5 Mg Tablet 12.5 Mg PO BID Aspirin Ec 81 Mg (Aspirin) 81 Mg Tabec 81 Mg PO DAILY Protonix Tab (Pantoprazole Sod) 40 Mg Tab 40 Mg PO DAILY Hydrocodone-Apap 10-325 Tablet (Acetaminophen/Hydrocodone Bitart) 1 Each Tablet 1 Tab PO EVERY 4-6 HOURS PRN Levothroid (Levothyroxine Sodium) 175 Mcg Tablet 175 Mcg PO DAILY Mirapex (Pramipexole Di-Hcl) 0.25 Mg Tablet 0.25 Mg PO DAILY Instructions to patient/family Please see electonic discharge instructions given to patient. Clinical Quality Measures AMI/AHF: ASA po Prior to arrival: No DVT/VTE Risk/Contraindication: Risk Factor Score Per Nursin RFS Level Per Nursing on Admit: 4+=Very High OCTAVIO BROWN DO Nov 17, 2016 10:32
[2016-11-17 11:25] VITALS: BP 91/62
[2016-11-17] MEDS: RIVAROXABAN 15 MG TABLET (XARELTO) PO SCH (15:46)
[2016-12-21] MEDS ORDERED: METR500T21 PO (11:19)
[2016-12-21] MEDS ORDERED: MORP4CAR IVP (11:19)
[2016-12-21] MEDS ORDERED: ONDA4VIA28 IV (11:19)
[2016-12-21] MEDS ORDERED: ENOX40DI8 SC (11:19)
[2016-12-21] MEDS ORDERED: VANCOMYCIN PO ×2 (11:22→13:15)
== END 2016-11-17 15:55 | DRG 871 ==
LOC: EDUNIT# 11:16 → ER 11:17 → ICU 14:12 → 4TH 11-16 19:05
PROVIDERS: ADMIT Internal Medicine; ATTEND Internal Medicine
PROC: 4A023N7 Measurement of Cardiac Sampling and Pressure, Left Heart, Percutaneous Approach (ICD-10-PCS; principal; 2016-11-10)
PROC: B2111ZZ Fluoroscopy of Multiple Coronary Arteries using Low Osmolar Contrast (ICD-10-PCS; 2016-11-10)
PROC: B2151ZZ Fluoroscopy of Left Heart using Low Osmolar Contrast (ICD-10-PCS; 2016-11-10)
PROC: B41G1ZZ Fluoroscopy of Left Lower Extremity Arteries using Low Osmolar Contrast (ICD-10-PCS; 2016-11-10)
PROC: B41F1ZZ Fluoroscopy of Right Lower Extremity Arteries using Low Osmolar Contrast (ICD-10-PCS; 2016-11-10)
PROC: 5A1945Z Respiratory Ventilation, 24-96 Consecutive Hours (ICD-10-PCS; 2016-11-11)
DX: A41.9 Sepsis, unspecified organism (principal); R65.20 Severe sepsis without septic shock; J44.0 Chronic obstructive pulmonary disease with (acute) lower respiratory infection; J18.9 Pneumonia, unspecified organism; G93.41 Metabolic encephalopathy; J96.01 Acute respiratory failure with hypoxia; N17.9 Acute kidney failure, unspecified; I11.0 Hypertensive heart disease with heart failure; I50.23 Acute on chronic systolic (congestive) heart failure; G93.1 Anoxic brain damage, not elsewhere classified; I42.9 Cardiomyopathy, unspecified; I48.0 Paroxysmal atrial fibrillation; E86.0 Dehydration; I25.10 Atherosclerotic heart disease of native coronary artery without angina pectoris; I70.233 Atherosclerosis of native arteries of right leg with ulceration of ankle; I70.234 Atherosclerosis of native arteries of right leg with ulceration of heel and midfoot; I70.232 Atherosclerosis of native arteries of right leg with ulceration of calf; L97.319 Non-pressure chronic ulcer of right ankle with unspecified severity; L97.429 Non-pressure chronic ulcer of left heel and midfoot with unspecified severity; L97.211 Non-pressure chronic ulcer of right calf limited to breakdown of skin; R78.89 Finding of other specified substances, not normally found in blood; F17.210 Nicotine dependence, cigarettes, uncomplicated; E78.5 Hyperlipidemia, unspecified; E05.90 Thyrotoxicosis, unspecified without thyrotoxic crisis or storm; M06.9 Rheumatoid arthritis, unspecified; R13.10 Dysphagia, unspecified; F41.9 Anxiety disorder, unspecified; E87.6 Hypokalemia; Z79.891 Long term (current) use of opiate analgesic; Z96.652 Presence of left artificial knee joint
CPT/HCPCS: 36246; 36415; 51701; 70450; 71010; 75716; 80048; 80053; 80061; 80202; 80306; 80320; 81000; 82040; 82140; 82150; 82550; 82553; 82805; 82962; 83605; 83735; 83874; 83880; 84100; 84132; 84439; 84443; 84484; 85007; 85025; 85027; 85610; 85730; 86021; 87040; 87081; 87088; 87449; 87804; 87899; 93005; 93041; 93306; 93458; 94002; 94003; 94640; 94660; 94760; 94799; 96365; 96372

== ENCOUNTER → 2016-11-27 | Outpatient (CLI) | payer MEDICARE ==
[~2016-11-27] MED LIST changes: +ATOR20TA66 PO; +ATOR40TA PO; +CALC-6 PO; +ENOX40DI8 SC; +FURO20TA4 PO; +GABA800T2 PO; +HYDR-3820 PO; +IPRA3AMP IH; +LEVO125T PO; +LEVO175T5 PO; +METR500T21 PO; +MORP-34 PO; +MORP30TA PO; +MORP30TA60 PO; +MORP4CAR IVP; +ONDA4VIA28 IV; +ONDA8TAB13 PO; +ONDA8TAB6 PO; +POTA10TA36 PO; +PRED10TA22 PO; +RIVA15TA PO; +SACU1TAB PO; +SUCR1TAB PO; +TIZA4TAB3 PO; +TIZA6CAP9 PO; +VANCOMYCIN PO
== END ==
DX: R19.7 Diarrhea, unspecified (principal)
CPT/HCPCS: 87324; 87449

== ENCOUNTER 2016-11-29 01:22 | Inpatient (IN) | payer MEDICARE ==
[2016-11-29] VITALS (24 sets, daily range): BP systolic 66–150; BP diastolic 28–94
[~2016-11-29] VITALS: Ht 172.7 cm; Wt 77.6 kg
[~2016-11-29 01:22] MED LIST changes: -ATOR40TA PO; -CALC-6 PO; -ENOX40DI8 SC; -FURO20TA4 PO; -IPRA3AMP IH; -LEVO125T PO; -LEVO175T5 PO; -METR500T21 PO; -MORP-34 PO; -MORP30TA PO; -MORP4CAR IVP; -ONDA4VIA28 IV; -ONDA8TAB6 PO; -POTA10TA36 PO; -SACU1TAB PO; -TIZA6CAP9 PO; -VANCOMYCIN PO
[2016-11-29] MEDS ORDERED: RT-ALBUTEROL/IPRATROPIUM 3 ML (DUONEB) VIAL INH ONE (01:45)
[2016-11-29] MEDS: NS IV 1000 ML 2,000 ML IV PRN (01:51)
[2016-11-29 01:53] LABS: BASOPHILS % (AUTO) 0 % (0-10); EOSINOPHILS % (AUTO) 0 % (0-10); LYMPHOCYTES # (AUTO) 1.6 X 10^3 (1.0-4.0); LYMPHOCYTES % (AUTO) 19 % (12-44); MEAN CORPUSCULAR HEMOGLOBIN 28 PG (25-34); MEAN CORPUSCULAR HGB CONC 32 G/DL (32-36); MEAN CORPUSCULAR VOLUME 87 FL (80-99); MEAN PLATELET VOLUME 9.9 FL (7.4-10.4); MONOCYTES # (AUTO) 0.6 X 10^3 (0.0-1.0); MONOCYTES % (AUTO) 7 % (0-12); NEUTROPHILS # (AUTO) 6.2 X 10^3 (1.8-7.8); NEUTROPHILS % (AUTO) 74 % (42-75); PLATELET COUNT 254 10^3/uL (130-400); RED BLOOD COUNT 3.65 10^6/uL (4.35-5.85); RED CELL DISTRIBUTION WIDTH 16.6 % (10.0-14.5); WHITE BLOOD COUNT 8.5 10^3/uL (4.3-11.0)
--- NOTE | 2016-11-29 01:59 | ED General ---
General Chief Complaint: Cardiac/General Problems Stated Complaint: LOW BLOOD PRESSURE Source of Information: Patient Exam Limitations: No Limitations History of Present Illness Time Seen by Provider: 01:33 Initial Comments Here by EMS with report of being confused, febrile and hypotensive at the [place] [facility]. Also noted to be somewhat hypoxic. Patient has history of pneumonia and was in the hospital a few weeks back with prolonged case. He does have history of COPD and long-term smoking. This is not changed. Tonight he presents febrile and hypotensive on arrival by EMS. Patient's denies any concerns but does appear a little confused. Timing/Duration: 12 Hours Severity: Moderate, Severe Associated Systoms: Cough Fever/ChillsNo Nausea/Vomiting, Shortness of Air Weakness Allergies and Home Medications Allergies Coded Allergies: Sulfa (Sulfonamide Antibiotics) (Unverified Allergy, Unknown, 11/07/16) Home Medications Albuterol Sulfate/Ipratropium 3 Ml Solution 3 ML IH QID PRN PRN SHORTNESS OF BREATH (Reported) Aspirin 81 Mg Tabec 81 MG PO DAILY (Reported) Atorvastatin Calcium 20 Mg Tablet #30 40 MG PO HS Prescribed by: TORY HALL on 11/16/16 1059 Carvedilol 12.5 Mg Tablet 12.5 MG PO BID (Reported) Enalapril Maleate 2.5 Mg Tablet #30 2.5 MG PO DAILY Prescribed by: TORY HALL on 11/16/16 1059 Gabapentin 800 Mg Tablet 800 MG PO TID (Reported) Hydrocodone Bit/Acetaminophen 1 Each Tablet 1 TAB PO EVERY 4-6 HOURS PRN PRN MODERATE PAIN (Reported) Hydrocodone/Acetaminophen 1 Each Tablet #60 1 EACH PO Q6H PRN PRN PAIN Prescribed by: OCTAVIO BROWN on 11/17/16 0858 Levothyroxine Sodium 175 Mcg Tablet 175 MCG PO DAILY (Reported) Morphine Sulfate 30 Mg Tablet 30 MG PO Q8H PRN PRN SEVERE PAIN (Reported) Morphine Sulfate 30 Mg Tablet.er #60 30 MG PO Q8H Prescribed by: OCTAVIO BROWN on 11/17/1658 Ondansetron 8 Mg Tab.rapdis 8 MG PO Q8H PRN PRN NAUSEA/VOMITING (Reported) Pantoprazole Sod 40 Mg Tab 40 MG PO DAILY (Reported) Prednisone 10 Mg Tab.ds.pk #42 10 MG PO DAILY Take 6 tabs(60mg)daily,decrease by 1 tab(10mg)every other day. Prescribed by: OCTAVIO BROWN on 11/17/16 0858 Rivaroxaban 15 Mg Tablet #30 15 MG PO DAILY@1700 Prescribed by: TORY HALL on 11/16/16 1101 Sucralfate 1 Gm Tablet 1 GM PO BID (Reported) Tizanidine HCl 4 Mg Tablet 6 MG PO TID (Reported) TAKES 1 & 1/2 OF A (4 MG) TABLET Constitutional: see HPI fever weakness EENTM: no symptoms reported Respiratory: see HPI cough short of breath wheezing Cardiovascular: no symptoms reported Gastrointestinal: No diarrhea, No nausea, No vomiting Genitourinary: no symptoms reported Musculoskeletal: no symptoms reported Skin: no symptoms reported Psychiatric/Neurological: No Symptoms Reported All Other Systems Reviewed Negative Unless Noted: Yes Past Sxlfsja-Asstiq-Wckqcy Hx Patient Social History Alcohol Use: Denies Use Recreational Drug Use: No Smoking Status: Current Everyday Smoker Type Used: Cigarettes Recent Foreign Travel: No Contact w/Someone Who Travel: No Recent Hopitalizations: No Immunizations Up To Date Date of Pneumonia Vaccine: Mar 04, 2013 Surgeries HX Surgeries: Yes Surgeries: Cardiac, Orthopedic Respiratory Hx Respiratory Disorders: Yes Respiratory Disorders: Chronic Bronchitis, COPD, Emphysema Cardiovascular Hx Cardiac Disorders: Yes (CHF; PULMONARY HTN) Cardiac Disorders: Coronary Artery Disease, High Cholesterol, Hypertension, Peripheral Vascular Neurological Hx Neurological Disorders: No Reproductive System Sexually Transmitted Disease: Yes (CONDYLOMA) Genitourinary Hx Genitourinary Disorders: No Gastrointestinal Hx Gastrointestinal Disorders: Yes Gastrointestinal Disorders: Gastroesophageal Reflux, Hemorrhoids Musculoskeletal Hx Musculoskeletal Disorders: Yes (RHEUMATOID ARTHRITIS/OSTEOPOROSIS; BILATERAL OLECRANON BURSITIS) Musculoskeletal Disorders: Osteoporosis, Arthritis, Rheumatoid Arthritis Endocrine Hx Endocrine Disorders: Yes Endocrine Disorders: Hypothyroidsim HEENT HX ENT Disorders: Yes (full set of dentures) Cancer Hx Cancer: No Psychosocial Hx Psychiatric Problems: Yes Behavioral Health Disorders: Anxiety Integumentary HX Skin/Integumentary Disorder: Yes (CHRONIC LEG WOUNDS ) Blood Transfusions Hx Blood Disorders: Yes (ANEMIA) Reviewed Nursing Assessment Reviewed/Agree w Nursing PMH: Yes Physical Exam-Suspected Sepsis Physical Exam Vital Signs Vital Sign - Last 12Hours 11/29/16 01:35 Temp 101.1 Pulse 109 Resp 22 B/P 77/50 Pulse Ox 88 O2 Delivery Nasal Cannula O2 Flow Rate 2 Capillary Refill : General Appearance: No Apparent Distress WD/WN HEENT: PERRL/EOMI Pharynx Normal Neck: Non Tender Supple Respiratory: No Accessory Muscle Use Expiration Wheezing Cardiovascular: Regular Rate, Rhythm Normal Peripheral Pulses Gastrointestinal: Non Tender Soft Extremity: Normal Capillary Refill Normal Inspection Normal Range of Motion Non Tender No Calf Tenderness Pedal Edema (to mid tibia bilaterally) Neurologic/Psychiatric: Alert Oriented x3 Skin: normal color warm/dryNo rash Evaluation Sepsis Stage: Septic Shock Possible Source: Pulmonary Time of Focused Exam: 04:26 Capillary Refill: Less Than 3 Seconds Peripheral Pulses: 1+ Dorsalis Pedis (R), 1+ Left Dors-Pedis (L), 1+ Radial Pulses (R), 1+ Radial Pulses (L) Lactic Acid Level Laboratory Tests Test 11/29/16 01:40 Alanine Aminotransferase (ALT/SGPT) 161U/L (0-55) H Albumin 2.3G/DL (3.2-4.5) L Alkaline Phosphatase 147U/L (40-136) H Anion Gap 11MMOL/L (5-14) Aspartate Amino Transf (AST/SGOT) 58U/L (5-34) H BUN/Creatinine Ratio 17 Blood Urea Nitrogen 19MG/DL (7-18) H Calcium Level 7.8MG/DL (8.5-10.1) L Carbon Dioxide Level 26MMOL/L (21-32) Chloride Level 101MMOL/L (98-107) Creatinine 1.12MG/DL (0.60-1.30) Estimat Glomerular Filtration Rate > 60 Glucose Level 76MG/DL (70-105) Lactic Acid Level 1.42MMOL/L (0.50-2.00) Potassium Level 4.7MMOL/L (3.6-5.0) Sodium Level 138MMOL/L (135-145) Total Bilirubin 0.4MG/DL (0.1-1.0) Total Protein 4.6G/DL (6.4-8.2) L Troponin I < 0.30NG/ML (<0.30) Lumen: triple Central Line Procedure: betadine prep sterile drapes applied sterile dressing applied Position: internal jugular (R) Anesthesia: Lidocaine Volume Anesthetic (ccs): 3 Complications: none Post Position: sutured, good blood return, position confirmed w/ CXR Progress Placed via ultrasound guidance. No complications. Date of ETT Placement: Nov 10, 2016 Time of ETT Placement: 0 Progress/Results/Core Measures Suspected Sepsis SIRS Temperature: Pulse: Respiratory Rate: Laboratory Tests 11/29/16 01:40: White Blood Count 8.5 Blood Pressure / Mean: Laboratory Tests 11/29/16 01:40: Creatinine 1.12, INR Comment 2.0H, Platelet Count 254, Total Bilirubin 0.4 Results/Orders Lab Results Laboratory Tests Test 11/29/16 01:40 Range/Units Activated Partial Thromboplast Time 42 H 24-35 SEC Alanine Aminotransferase (ALT/SGPT) 161 H 0-55 U/L Albumin 2.3 L 3.2-4.5 G/DL Alkaline Phosphatase 147 H 40-136 U/L Anion Gap 11 5-14 MMOL/L Aspartate Amino Transf (AST/SGOT) 58 H 5-34 U/L BUN/Creatinine Ratio 17 Basophils # (Auto) 0.0 0.0-0.1 10^3/uL Basophils (%) (Auto) 0 0-10 % Blood Urea Nitrogen 19 H 7-18 MG/DL Calcium Level 7.8 L 8.5-10.1 MG/DL Carbon Dioxide Level 26 21-32 MMOL/L Chloride Level 101 98-107 MMOL/L Creatinine 1.12 0.60-1.30 MG/DL Eosinophils # (Auto) 0.0 0.0-0.3 10^3/uL Eosinophils (%) (Auto) 0 0-10 % Estimat Glomerular Filtration Rate > 60 Glucose Level 76 70-105 MG/DL Hematocrit 32 L 40-54 % Hemoglobin 10.2 L 13.3-17.7 G/DL INR Comment 2.0 H 0.8-1.4 Lactic Acid Level 1.42 0.50-2.00 MMOL/L Lymphocytes # (Auto) 1.6 1.0-4.0 X 10^3 Lymphocytes (%) (Auto) 19 12-44 % Mean Corpuscular Hemoglobin 28 25-34 PG Mean Corpuscular Hemoglobin Concent 32 32-36 G/DL Mean Corpuscular Volume 87 80-99 FL Mean Platelet Volume 9.9 7.4-10.4 FL Monocytes # (Auto) 0.6 0.0-1.0 X 10^3 Monocytes (%) (Auto) 7 0-12 % Neutrophils # (Auto) 6.2 1.8-7.8 X 10^3 Neutrophils (%) (Auto) 74 42-75 % Platelet Count 254 130-400 10^3/uL Potassium Level 4.7 3.6-5.0 MMOL/L Prothrombin Time 22.1 H 12.2-14.7 SEC Red Blood Count 3.65 L 4.35-5.85 10^6/uL Red Cell Distribution Width 16.6 H 10.0-14.5 % Sodium Level 138 135-145 MMOL/L Total Bilirubin 0.4 0.1-1.0 MG/DL Total Protein 4.6 L 6.4-8.2 G/DL Troponin I < 0.30 <0.30 NG/ML White Blood Count 8.5 4.3-11.0 10^3/uL Micro Results Microbiology 11/29/16 Influenza Types A,B Antigen (DIONISIO) - Final, Complete My Orders Orders-DEAN LEWIS MD Cbc With Automated Diff (11/29/16 01:38) Comprehensive Metabolic Panel (11/29/16 01:38) Lactic Acid Analyzer (11/29/16 01:38) Blood Culture (11/29/16 01:38) Sputum Culture (11/29/16 01:38) Ua Culture If Indicated (11/29/16 01:38) Protime With Inr (11/29/16 01:38) Partial Thromboplastin Time (11/29/16 01:38) Chest 1 View, Ap/Pa Only (11/29/16 01:38) O2 (11/29/16 01:38) Saline Lock/Iv-Start (11/29/16 01:38) Saline Lock/Iv-Start (11/29/16 01:38) Ns Iv 1000 Ml (Sodium Chloride 0.9%) (11/29/16 01:45) Vital Signs Adult Sepsis Patie Q1HR (11/29/16 01:38) Remove Rings In Anticipation O (11/29/16 01:38) Influenza A And B Antigens (11/29/16 01:38) Albuterol/Ipra Inhalation Soln (Duoneb I (11/29/16 01:45) Svn Sm Volume Nebulizer Rt-Rfs (11/29/16 01:38) Ekg Tracing (11/29/16 01:58) Monitor-Rhythm Ecg Trace Only (11/29/16 01:58) Troponin I (11/29/16 01:58) Acetaminophen Tablet (Tylenol Tablet) (11/29/16 02:49) Piperacillin Sodium/Tazobactam (Zosyn Vi (11/29/16 03:00) Piperacillin Sodium/Tazobactam (Zosyn Vi (11/29/16 03:00) D5w 250 Ml (Ivpb) (Dextrose 5% Water Iv (11/29/16 03:16) Norepinephrine (Levophed) (11/29/16 03:16) D5w 250 Ml (Ivpb) (... W/Norepinephrine (11/29/16 03:30) Chest 1 View, Ap/Pa Only (11/29/16 04:16) Ns Iv 1000 Ml (Sodium Chloride 0.9%) (11/29/16 04:45) Medications Given in ED Current Medications Medications Dose Ordered Sig/Janeth Route Start Time Stop Time Status Last Admin Dose Admin Albuterol/ Ipratropium 3 ml ONCE ONCE INH 11/29/16 01:45 11/29/16 01:46 DC 11/29/16 02:09 3 ML Sodium Chloride 2,000 ml @ 1,000 mls/hr PRN PRN IV 11/29/16 01:45 11/29/16 01:51 1,000 MLS/HR Vital Signs/I&O Vital Sign - Last 12Hours 11/29/16 11/29/16 11/29/16 11/29/16 01:35 01:35 01:45 02:00 Temp 101.1 Pulse 109 102 97 Resp 22 24 28 B/P 77/50 72/28 119/59 Pulse Ox 88 92 89 89 O2 Delivery Nasal Cannula Nasal Cannula Nasal Cannula Nasal Cannula O2 Flow Rate 2 2 2 11/29/16 11/29/16 11/29/16 11/29/16 02:10 03:03 03:37 03:52 Temp 101.1 Pulse 92 Resp 16 B/P 108/94 66/36 Pulse Ox 93 99 O2 Delivery Nasal Cannula O2 Flow Rate 2 2 11/29/16 11/29/16 11/29/16 04:05 04:28 04:30 Temp 99.2 Pulse 88 76 72 Resp 17 11 B/P 69/39 87/50 Pulse Ox 94 98 93 O2 Delivery Nasal Cannula Nasal Cannula O2 Flow Rate 2 2 Capillary Refill : Progress Note : Progress Note Seen and evaluated. Patient noted to be febrile and hypotensive on arrival. IV , labs, UA, chest x-ray and EKG ordered. Normal saline 30 mL/kg bolus initiated. White count is not elevated but patient does have pneumonia noted on x-ray. Tylenol 1 g by mouth given. Heart rate improved as well as blood pressure with fluid bolus. Zosyn 4.5 g IV ordered. Patient will require central line. This will be placed. After 2 L fluid volume infused, blood pressure 85/48 so patient will require Levophed. This was initiated at 0327. Patient is not responding to fluids well. Central line will be required for Levophed administration. 0410: Central line placed. Patient hypotensive but placed via ultrasound guidance. 0420: Chest x-ray shows central line in good position. Patient still remains hypotensive. Repeat focused exam done as noted. Lung sounds clear bilateral currently. To be admitted to ICU, critical condition. ECG Initial ECG Impression Date: Nov 29, 2016 Initial ECG Impression Time: 01:08 Initial ECG Rate: 97 Initial ECG Rhythm: Normal Sinus Comment Sinus rhythm with premature atrial complexes. Normal axis. No evidence of ST elevation NE. Similar to previous of 11/17/16. Interpreted by me. Diagnostic Imaging Diagonstic Imaging: Xray Plain Films/CT/US/NM/MRI: chest Comments Left midlung pneumonia Reviewed: Reviewed by Me Diagonstic Imaging: Xray Plain Films/CT/US/NM/MRI: chest Comments Central line in good position. No pneumothorax. Bilateral patchy infiltrates noted concerning for pulmonary edema versus pronounced pneumonia versus ARDS. Departure Communication Time/Spoke to Admitting Phy: 02:51 Impression Impression: Primary Impression: Left lower lobe pneumonia Qualified Code: J18.1 - Lobar pneumonia, unspecified organism Additional Impression: Septic shock Disposition: ADMITTED INPATIENT Condition: Critical Decision to Admit Reason: Admit from ER (General) Decision to Admit/Date: Nov 29, 2016 Time/Decision to Admit Time: 02:51 Departure-Patient Inst. Referrals: ANDREINA MESA MD (PCP/Family) Primary Care Physician DEAN LEWIS MD Nov 29, 2016 01:59 Communication Time/Spoke to Admitting Phy: 02:51 Impression Impression: Primary Impression: Left lower lobe pneumonia Qualified Code: J18.1 - Lobar pneumonia, unspecified organism Additional Impression: Septic shock Disposition: 09 ADMITTED INPATIENT Condition: Critical Decision to Admit Reason: Admit from ER (General) Decision to Admit/Date: Nov 29, 2016 Time/Decision to Admit Time: 02:51 Departure-Patient Inst. Referrals: ANDREINA MESA MD (PCP/Family) Primary Care Physician DEAN LEWIS MD Nov 29, 2016 01:59
[2016-11-29 02:01] LABS: PROTHROMBIN TIME PATIENT 22.1 SEC (12.2-14.7)
[2016-11-29 02:12] LABS: ALANINE AMINOTRANSFERASE 161 U/L (0-55); ALBUMIN 2.3 G/DL (3.2-4.5); ANION GAP 11 MMOL/L (5-14); ASPARTATE AMINO TRANSFERASE 58 U/L (5-34); BILIRUBIN,TOTAL 0.4 MG/DL (0.1-1.0); BLOOD UREA NITROGEN 19 MG/DL (7-18); BUN/CREATININE RATIO 17; CALCIUM 7.8 MG/DL (8.5-10.1); CARBON DIOXIDE 26 MMOL/L (21-32); CHLORIDE 101 MMOL/L (98-107); CREATININE SERUM 1.12 MG/DL (0.60-1.30); GFR ESTIMATED > 60; GLUCOSE 76 MG/DL (70-105); POTASSIUM 4.7 MMOL/L (3.6-5.0); SODIUM 138 MMOL/L (135-145); TOTAL PROTEIN 4.6 G/DL (6.4-8.2)
[2016-11-29] MEDS ORDERED: ACETAMINOPHEN 500 MG TAB (TYLENOL) PO STA (02:49)
[2016-11-29] MEDS ORDERED: PIPERACILLIN SODIUM/TAZOBACTAM 4.5 GM in NS (IVPB) 100 ML IV ONE (03:00)
[2016-11-29] MEDS ORDERED: PIPERACILLIN/TAZO 4.5 GM VIAL (ZOSYN) IV ONE (03:00)
[2016-11-29] MEDS ORDERED: NOREPINEPHRINE 4 MG/4 ML (LEVOPHED) AMP IV ONE (03:16)
[2016-11-29] MEDS ORDERED: D5W 250 ML (IVPB) 250 ML IV ONE (03:16)
[2016-11-29] MEDS ORDERED: NOREPINEPHRINE 4 MG in D5W 250 ML (IVPB) 250 ML IV ONE (03:30)
[2016-11-29] MEDS ORDERED: NS IV 1000 ML 1,000 ML IV SCH ×2 (04:45→06:00)
[2016-11-29 05:34] LABS: ABG BASE EXCESS -0.6 MMOL/L (-2.5-2.5); ABG HCO3 23 MMOL/L (23-27); ABG OXYGEN SATURATION 99 % (94-100); ABG PCO2 38 MMHG (35-45); ABG PH 7.41 (7.37-7.43); ABG PO2 95 MMHG (79-93); ABG TCO2 24.4 MMOL/L (21.0-31.0)
[2016-11-29 05:41] LABS: ALLENS TEST YES-POS; PATIENT TEMP 99.5
[2016-11-29 05:42] LABS: BILIRUBIN,URINE NEGATIVE (NEGATIVE); KETONES,URINE NEGATIVE (NEGATIVE); LEUKOCYTE ESTERASE ,URINE 1+ (NEGATIVE); NITRITE,URINE NEGATIVE (NEGATIVE); PH,URINE 5 (5-9); PROTEIN,URINE 1+ (NEGATIVE); UROBILINOGEN,URINE NORMAL (NORMAL)
[2016-11-29] MEDS: POTASSIUM CL 10MEQ/50ML IVPB 50 ML IV SCH (05:43)
[2016-11-29] MEDS: KCL 20 MEQ TAB (K-DUR) PO SCH (05:44)
[2016-11-29] MEDS: MAGNESIUM 1 GM/100 ML IVPB 100 ML IV SCH (05:44)
[2016-11-29 05:45] LABS: WBC,URINE RARE /HPF
[2016-11-29] MEDS: NOREPINEPHRINE 4 MG in D5W 250 ML IV SCH ×3 (06:00→15:35)
[2016-11-29] MEDS ORDERED: ACETAMINOPHEN 650 MG SUPP (TYLENOL) PR PRN (06:00)
[2016-11-29] MEDS ORDERED: ACETAMINOPHEN 325 MG TABLET/CAPLET (TYLENOL) PO PRN (06:00)
--- NOTE | 2016-11-29 06:14 | Diagnostic Imaging Report ---
INDICATION: Central venous catheter evaluation. 0417 hours Comparison is made study of earlier in the day. FINDINGS: Heart size is within normal limits. There has been increase in pulmonary vascular prominence with bilateral airspace disease now present. No pneumothorax is seen. Right jugular central venous catheter is in place with tip projecting over the mid superior vena cava. There is no evidence of pneumothorax. IMPRESSION: Developing bilateral airspace disease is suggestive of pulmonary edema or hemorrhage. Dictated by: Dictated on workstation # [id number]
--- NOTE | 2016-11-29 06:58 | Diagnostic Imaging Report ---
INDICATION: Dyspnea. 0201 hrs. FINDINGS: Since 11/17/2016, there has been development of increased parenchymal density within the left midlung and basilar regions. There is also blunting of the left costophrenic sulcus. There is air trapping bilaterally. No pneumothorax is seen. IMPRESSION: Developing infiltrate in the left lung with associated mild left pleural fluid. Findings are suggestive of pneumonia and radiographic followup is suggested. Dictated by: Dictated on workstation # [id number]
[2016-11-29] MEDS ORDERED: NS IV 1000 ML 2,000 ML IV PRN (07:00)
[2016-11-29] MEDS ORDERED: FLU TRIvalent (5 YOA+) 2016-17 (AFLURIA) 0.5 ML IM ONE (08:30)
[2016-11-29] MEDS: NS IV 1000 ML 1,000 ML IV SCH ×4 (09:09→20:20)
[2016-11-29] MEDS ORDERED: LEVOFLOXACIN 750 MG/D5W 150 ML (PRE-MIX) IV SCH (10:00)
[2016-11-29] MEDS ORDERED: TIZA6CAP9 PO (10:23)
[2016-11-29] MEDS ORDERED: ENAL2.5T PO (10:23)
[2016-11-29] MEDS ORDERED: ATOR40TA PO (10:23)
[2016-11-29] MEDS ORDERED: MORP30TA PO (10:23)
[2016-11-29] MEDS ORDERED: HYDR-3820 PO (10:23)
[2016-11-29] MEDS ORDERED: ONDA8TAB6 PO (10:23)
[2016-11-29] MEDS ORDERED: RIVA15TA PO (10:23)
[2016-11-29] MEDS ORDERED: IPRA3AMP IH (10:25)
[2016-11-29] MEDS: VANCOMYCIN 1 GM/NS 250 ML IVPB IV SCH ×4 (10:29→20:23)
[2016-11-29] MEDS: D5W IV SCH ×5 (10:29→23:29)
[2016-11-29] MEDS: PHENYLEPHRINE FOR DRIPS IV SCH ×5 (10:29→23:29)
[2016-11-29] MEDS: PIPERACILLIN/TAZOBACTAM 4.5 GM/NS100 ML IVPB IV SCH ×4 (10:29→17:45)
[2016-11-29] MEDS: VASOPRESSIN INJECTION 20 UNIT in NS (IVPB) 100 ML IV SCH ×3 (10:29→23:29)
[2016-11-29] MEDS ORDERED: RT-ALBUTEROL/IPRATROPIUM 3 ML (DUONEB) VIAL INH PRN (10:30)
[2016-11-29] MEDS ORDERED: FLUCONAZOLE 200 MG/NACL 100 ML (PRE-MIX) IV NR (11:00)
[2016-11-29] MEDS ORDERED: CATHETER FLUSH 10 ML SYR IV PRN (11:45)
[2016-11-29] MEDS: inSUlin (REGULAR) HUMAN 1 UNIT/0.01 ML (CHARGE PER UNIT) SC SCH ×2 (12:00→18:05)
--- NOTE | 2016-11-29 14:52 | History & Physical-Hospitalist ---
HPI History of Present Illness: HPI/Chief Complaint The patient is a 71-year-old white male who was brought [facility] the [facility] The observation sent along with him suggested fever and confusion. He had been hospitalized here from November 07 through November 17. On the initial presentation he had pneumonia and was placed on the ventilator for several days. He received extended IV antibiotics. He was known to have COPD and was a unrepentant smoker. During the hospitalization he had a coronary angiogram which showed a severe cardiomyopathy which was nonischemic with severely elevated left ventricular end diastolic pressure. He reports he had no observation that he was performing any differently. He did not know that he had had a fever. He thought that perhaps the jail staff was confused. He now also complains of diarrhea. Source: patient Exam Limitations: no limitations Date Seen 11/29/16 Attending Physician Steve Carroll MD PCP Berry Grajeda MD Referring Physician Date of Admission Nov 29, 2016 at 02:55 Home Medications & Allergies Home Medications Reviewed patient Home Medication Reconciliation Form Allergies Coded Allergies: Sulfa (Sulfonamide Antibiotics) (Unverified Allergy, Unknown, 11/07/16) Past Uznueff-Nahrfs-Mwjueu Hx Patient Social History Alcohol Use: Denies Use Recreational Drug Use: No Smoking Status: Current Everyday Smoker Type Used: Cigarettes Physical Abuse Screen: No Sexual Abuse: No Recent Foreign Travel: No Contact w/other who traveled: No Recent Hopitalizations: No Recent Infectious Disease Expo: No Immunizations Up To Date Date of Pneumonia Vaccine: Mar 04, 2013 Seasonal Allergies Seasonal Allergies: No Surgeries HX Surgeries: Yes Surgeries: Cardiac, Orthopedic Respiratory Hx Respiratory Disorders: Yes Cardiovascular Hx Cardiovascular Disorders: Yes (CHF; PULMONARY HTN) Cardiac Disorders: Coronary Artery Disease, High Cholesterol, Hypertension, Peripheral Vascular Neurological Hx Neurological Disorders: No Reproductive System Sexually Transmitted Disease: Yes HIV/AIDS: No Genitourinary Hx Genitourinary Disorders: No Genitourinary Disorders: Renal Failure Gastrointestinal Hx Gastrointestinal Disorders: Yes Gastrointestinal Disorders: Gastroesophageal Reflux, Hemorrhoids Musculoskeletal Hx Musculoskeletal Disorders: Yes (RHEUMATOID ARTHRITIS/OSTEOPOROSIS; BILATERAL OLECRANON BURSITIS) Musculoskeletal Disorders: Osteoporosis, Arthritis, Rheumatoid Arthritis Endocrine Hx Endocrine Disorders: Yes Endocrine Disorders: Hypothyroidsim HEENT HX ENT Disorders: Yes (full set of dentures) Cancer Hx Cancer: No Psychosocial Hx Psychiatric Problems: Yes Behavioral Health Disorders: Anxiety Integumentary HX Skin/Integumentary Disorder: Yes (CHRONIC LEG WOUNDS ) Blood Transfusions Hx Blood Disorders: Yes (ANEMIA) Reviewed Nursing Assessment Reviewed/Agree w Nursing PMH: Yes Family Medical History Family Hx: Patient reports no known family medical history. Review of Systems Constitutional: see HPI EENTM: no symptoms reported Respiratory: no symptoms reported dyspnea on exertion short of breath other ( recent pneumonia) Gastrointestinal: no symptoms reported Musculoskeletal: muscle weakness Skin: no symptoms reported Psychiatric/Neurological: No Symptoms Reported Physical Exam Physical Exam Vital Signs Vital Sign - Last 12Hours 11/29/16 01:35 Temp 101.1 Pulse 109 Resp 22 B/P 77/50 Pulse Ox 88 O2 Delivery Nasal Cannula O2 Flow Rate 2 Capillary Refill : Less Than 3 Seconds General Appearance: No Apparent Distress Eyes: Bilateral Eye Normal Inspection HEENT: Normal ENT Inspection Neck: Normal Inspection Respiratory: Chest Non Tender Lungs Clear Normal Breath Sounds No Accessory Muscle Use No Respiratory Distress Cardiovascular: Regular Rate, Rhythm No Edema No Gallop No JVD No Murmur Normal Peripheral Pulses Gastrointestinal: Normal Bowel Sounds No Organomegaly No Pulsatile Mass Non Tender Soft Skin: Normal Color Warm/Dry Lymphatic: No Adenopathy Results Results/Procedures Lab Laboratory Tests 11/29/16 01:40 Assessment/Plan Admission Diagnosis 1.febrile illness with ambivalent findings of pneumonia, possible sepsis. 2.hypotension. 3.cardiomyopathy. Assessment and Plan The patient had a fever to 101.1 at presentation. His mean arterial blood pressure was as low as 50. He did respond to fluids and pressors. It is noted that the white count was 9000. The chest x-ray reports are also ambivalent in that last night's x-ray suggested pneumonia. Today's report suggests more in the way of pulmonary edema. Plan: Continue present measures in the ICU for today. Consider transfer to the floor tomorrow. It is noted that the patient is also having diarrhea and given the antibiotics taken on his recent admission this will be examined for Clostridium difficile Clinical Quality Measures DVT/VTE Risk/Contraindication: Risk Factor Score Per Nursin RFS Level Per Nursing on Admit: 4+=Very High STEVE CARROLL MD Nov 29, 2016 14:52
[2016-11-29] MEDS: RT-ALBUTEROL/IPRATROPIUM 3 ML (DUONEB) VIAL INH SCH ×2 (15:34→21:00)
[2016-11-29] MEDS: metroNIDAZOLE 500 MG (FLAGYL) TAB PO SCH ×2 (16:37→20:20)
[2016-11-29] MEDS: MENTHOL/ZINC OXIDE (CALMOSEPTINE) 113 GM TUBE TOP SCH ×2 (17:45→20:23)
[2016-11-30] VITALS (22 sets, daily range): BP systolic 87–135; BP diastolic 50–78
[2016-11-30] MEDS: inSUlin (REGULAR) HUMAN 1 UNIT/0.01 ML (CHARGE PER UNIT) SC SCH ×4 (00:59→18:00)
[2016-11-30] MEDS: PIPERACILLIN/TAZOBACTAM 4.5 GM/NS100 ML IVPB IV SCH ×6 (02:29→18:24)
[2016-11-30] MEDS: NS IV 1000 ML 1,000 ML IV SCH ×5 (03:24→23:38)
[2016-11-30] MEDS: D5W IV SCH ×5 (03:39→20:15)
[2016-11-30] MEDS: PHENYLEPHRINE FOR DRIPS IV SCH ×5 (03:39→20:15)
[2016-11-30] MEDS: NOREPINEPHRINE 4 MG in D5W 250 ML IV SCH (04:11)
[2016-11-30 05:10] LABS: BASOPHILS % (AUTO) 0 % (0-10); EOSINOPHILS # (AUTO) 0.2 10^3/uL (0.0-0.3); EOSINOPHILS % (AUTO) 3 % (0-10); LYMPHOCYTES # (AUTO) 1.5 X 10^3 (1.0-4.0); LYMPHOCYTES % (AUTO) 26 % (12-44); MEAN CORPUSCULAR HEMOGLOBIN 28 PG (25-34); MEAN CORPUSCULAR HGB CONC 32 G/DL (32-36); MEAN CORPUSCULAR VOLUME 87 FL (80-99); MEAN PLATELET VOLUME 9.5 FL (7.4-10.4); MONOCYTES # (AUTO) 0.4 X 10^3 (0.0-1.0); MONOCYTES % (AUTO) 7 % (0-12); NEUTROPHILS # (AUTO) 3.8 X 10^3 (1.8-7.8); NEUTROPHILS % (AUTO) 64 % (42-75); PLATELET COUNT 206 10^3/uL (130-400); RED BLOOD COUNT 3.24 10^6/uL (4.35-5.85); RED CELL DISTRIBUTION WIDTH 16.4 % (10.0-14.5); WHITE BLOOD COUNT 5.9 10^3/uL (4.3-11.0)
[2016-11-30 05:18] LABS: INR 1.3 (0.8-1.4)
[2016-11-30 05:29] LABS: ANION GAP 8 MMOL/L (5-14); BLOOD UREA NITROGEN 10 MG/DL (7-18); BUN/CREATININE RATIO 12; CALCIUM 6.7 MG/DL (8.5-10.1); CARBON DIOXIDE 22 MMOL/L (21-32); CHLORIDE 109 MMOL/L (98-107); CREATININE SERUM 0.85 MG/DL (0.60-1.30); GFR ESTIMATED > 60; GLUCOSE 85 MG/DL (70-105); PHOSPHORUS 2.3 MG/DL (2.3-4.7); SODIUM 139 MMOL/L (135-145)
[2016-11-30 05:30] LABS: MAGNESIUM 0.9 MG/DL (1.8-2.4)
[2016-11-30] MEDS: POTASSIUM CL 10MEQ/50ML IVPB 50 ML IV SCH (05:38)
[2016-11-30] MEDS: KCL 20 MEQ TAB (K-DUR) PO SCH (05:38)
[2016-11-30] MEDS: MAGNESIUM 1 GM/100 ML IVPB 100 ML IV SCH ×7 (05:43→11:42)
[2016-11-30] MEDS: RT-ALBUTEROL/IPRATROPIUM 3 ML (DUONEB) VIAL INH SCH ×3 (06:46→19:41)
[2016-11-30] MEDS: VANCOMYCIN 1 GM/NS 250 ML IVPB IV SCH ×2 (06:59)
[2016-11-30] MEDS: VASOPRESSIN INJECTION 20 UNIT in NS (IVPB) 100 ML IV SCH ×2 (07:49→18:19)
[2016-11-30] MEDS: MENTHOL/ZINC OXIDE (CALMOSEPTINE) 113 GM TUBE TOP SCH ×3 (08:00→20:16)
[2016-11-30] MEDS: metroNIDAZOLE 500 MG (FLAGYL) TAB PO SCH ×3 (08:00→20:15)
--- NOTE | 2016-11-30 08:21 | Diagnostic Imaging Report ---
INDICATION: Dyspnea. Frontal chest obtained at 5:42 a.m. and compared with yesterday. FINDINGS: There is borderline heart size. There is diffuse interstitial infiltrate and/or edema which appears similar to the prior study. There is some patchy alveolar infiltrate in both lung bases. There is no pneumothorax or pleural fluid. Right-sided central catheter is unchanged. IMPRESSION: Cardiomegaly with central vascular congestion. Unchanged diffuse interstitial edema versus infiltrate as well as patchy bibasilar alveolar infiltrates. Dictated by: Dictated on workstation # [id number]
--- NOTE | 2016-11-30 08:50 | Progress Note-Hospitalist ---
Subjective HPI/CC On Admission The patient is a 71-year-old white male who was brought to the emergency room last night from the care home. The observation sent along with him suggested fever and confusion. He had been hospitalized here from November 07 through November 17. On the initial presentation he had pneumonia and was placed on the ventilator for several days. He received extended IV antibiotics. He was known to have COPD and was a unrepentant smoker. During the hospitalization he had a coronary angiogram which showed a severe cardiomyopathy which was nonischemic with severely elevated left ventricular end diastolic pressure. He reports he had no observation that he was performing any differently. He did not know that he had had a fever. He thought that perhaps the care home staff was confused. He now also complains of diarrhea. Date Seen 11/30/16 Objective Exam Vital Signs Vital Sign - Last 12Hours 11/29/16 01:35 Temp 101.1 Pulse 109 Resp 22 B/P 77/50 Pulse Ox 88 O2 Delivery Nasal Cannula O2 Flow Rate 2 Capillary Refill : Less Than 3 Seconds General Appearance: No Apparent Distress Chronically ill Respiratory: No Accessory Muscle Use No Respiratory Distress Other (bibasilar rales anterior chest clear) Cardiovascular: Regular Rate, Rhythm No Edema No Murmur Other (questionable soft S3) Results/Procedures Lab Laboratory Tests 11/30/16 04:55 Assessment/Plan Assessment and Plan Assess & Plan/Chief Complaint !. Sepsis likely due to pneumonia growing Escherichia coli from sputum will DC vancomycin and quinolone therapy continuing Zosyn. Patient is responding with resolution of confusion and normalization of blood pressure. 2. C. difficile colitis Flagyl has been initiated. 3. Normalization BUN/creatinine ratio increasing blood pressure in an individual with an ejection fraction of 20 percent physical exam findings and x- ray concerning for heart failure we will consult cardiology decrease IV fluids consider IV Lasix. 4. Hypomagnesemia replace FLOR CARABALLO MD Nov 30, 2016 08:50
[2016-11-30] MEDS ORDERED: FLUCONAZOLE 100 MG/50 ML IVPB IV SCH (09:00)
--- NOTE | 2016-11-30 09:18 | Consultation-Cardiology ---
HPI-Cardiology Cardiology Consultation Date of Consultation 11/30/16 Date of Admission Indication: congestive heart failure HPI 71 years old gentleman with recent hospitalization for acute respiratory failure and anoxic brain injury secondary to pneumonia, treated aggressively and improved. Had elevated troponin level with severe cardiomyopathy with nonischemic heart failure, underwent cardiac catheterization showing mild coronary artery disease, patient has nonhealing foot ulcers bilaterally with severe peripheral arterial disease which was postponed until he is clinically more stable. He was in a correction and he was doing well until he started having diarrhea which was worsening then he became lethargic and had fever he was sent to the hospital. Noted to be hypotensive and treated as hypotensive shock and septic shock. Has been on pressors. Beta blockers has been on hold. Currently blood pressure is better but still receiving Levothroid. Denied any chest pain, having mild shortness of breath. No palpitation, no syncope. Wearing a life vest. Home Medications & Allergies Allergies: Coded Allergies: Sulfa (Sulfonamide Antibiotics) (Unverified Allergy, Unknown, 11/07/16) Home Medication List Reviewed: Yes MFL-Fsafol-Kihrgg Hx Patient Social History Marital Status: Employed/Student: employed Alcohol Use: Denies Use Recreational Drug Use: No Smoking Status: Current Everyday Smoker Type Used: Cigarettes Recent Foreign Travel: No Recent Infectious Disease Expo: No Recent Hopitalizations: No Physical Abuse Screen: No Sexual Abuse: No Immunizations Up To Date Date of Pneumonia Vaccine: Mar 04, 2013 Past Medical History past medical history as discussed below Family Medical History Family Medical Hx noncontributory Family History: Patient reports no known family medical history. Constitutional: see HPINo chills, No diaphoresis, No dizziness, No fever, malaise weaknessNo weight gain, No weight loss, No other EENTM: no symptoms reported see HPI Respiratory: see HPINo cough, No dyspnea on exertion, No hemoptysis, No orthopnea, No phlegm, short of breathNo stridor, No wheezing, No other Cardiovascular: see HPINo chest pain, No edema, No Hx of Intervention, No palpitations, No syncope, vascular heart diseas other Gastrointestinal: see HPI diarrhea nausea Genitourinary: no symptoms reported see HPI Musculoskeletal: no symptoms reported see HPI Skin: no symptoms reported see HPI Psychiatric/Neurological: No Symptoms Reported See HPI Reviewed Test Results Reviewed Test Results Lab Laboratory Tests Test 11/29/16 12:43 3/14/17 17:59 11/30/16 00:54 11/30/16 04:55 Range/Units Glucometer 110 69 L 69 L 70-110 MG/DL Activated Partial Thromboplast Time 33 24-35 SEC Anion Gap 8 5-14 MMOL/L BUN/Creatinine Ratio 12 Basophils # (Auto) 0.0 0.0-0.1 10^3/uL Basophils (%) (Auto) 0 0-10 % Blood Urea Nitrogen 10 7-18 MG/DL Calcium Level 6.7 L 8.5-10.1 MG/DL Carbon Dioxide Level 22 21-32 MMOL/L Chloride Level 109 H 98-107 MMOL/L Creatinine 0.85 0.60-1.30 MG/DL Eosinophils # (Auto) 0.2 0.0-0.3 10^3/uL Eosinophils (%) (Auto) 3 0-10 % Estimat Glomerular Filtration Rate > 60 Glucose Level 85 70-105 MG/DL Hematocrit 28 L 40-54 % Hemoglobin 8.9 L 13.3-17.7 G/DL INR Comment 1.3 0.8-1.4 Lactic Acid Level 1.09 0.50-2.00 MMOL/L Lymphocytes # (Auto) 1.5 1.0-4.0 X 10^3 Lymphocytes (%) (Auto) 26 12-44 % Magnesium Level 0.9 *L 1.8-2.4 MG/DL Mean Corpuscular Hemoglobin 28 25-34 PG Mean Corpuscular Hemoglobin Concent 32 32-36 G/DL Mean Corpuscular Volume 87 80-99 FL Mean Platelet Volume 9.5 7.4-10.4 FL Monocytes # (Auto) 0.4 0.0-1.0 X 10^3 Monocytes (%) (Auto) 7 0-12 % Neutrophils # (Auto) 3.8 1.8-7.8 X 10^3 Neutrophils (%) (Auto) 64 42-75 % Phosphorus Level 2.3 2.3-4.7 MG/DL Platelet Count 206 130-400 10^3/uL Potassium Level 4.0 3.6-5.0 MMOL/L Prothrombin Time 16.0 H 12.2-14.7 SEC Red Blood Count 3.24 L 4.35-5.85 10^6/uL Red Cell Distribution Width 16.4 H 10.0-14.5 % Sodium Level 139 135-145 MMOL/L White Blood Count 5.9 4.3-11.0 10^3/uL Physical Exam Vital Signs Vital Sign - Last 12Hours 11/29/16 01:35 Temp 101.1 Pulse 109 Resp 22 B/P 77/50 Pulse Ox 88 O2 Delivery Nasal Cannula O2 Flow Rate 2 Capillary Refill : Less Than 3 Seconds General Appearance: WD/WN Moderate Distress Eyes: Bilateral Eye EOMI, Bilateral Eye Normal Inspection, Bilateral Eye PERRL HEENT: PERRL/EOMI TMs Normal Normal ENT Inspection Pharynx Normal Neck: Full Range of Motion Normal Inspection Non Tender Supple Carotid Bruit Respiratory: Chest Non Tender Normal Breath Sounds No Accessory Muscle Use No Respiratory Distress Crackles Cardiovascular: Regular Rate, Rhythm No Edema No Gallop No JVD No Murmur Other (bilateral foot ulcer) Gastrointestinal: Normal Bowel Sounds No Organomegaly No Pulsatile Mass Non Tender Soft Back: Normal Inspection No CVA Tenderness No Vertebral Tenderness Extremity: Normal Capillary Refill Normal Inspection Normal Range of Motion Non Tender No Calf Tenderness No Pedal Edema Neurologic/Psychiatric: Alert Oriented x3 No Motor/Sensory Deficits Normal Mood/Affect Skin: Normal Color Warm/Dry Lymphatic: No Adenopathy A/P-Cardiology Admission Diagnosis Septic shock Congestive heart failure, acute on chronic left ventricular systolic dysfunction , nonischemic cardiomyopathy Hypotension Peripheral arterial disease Assessment/Plan Sepsis with septic shock, started on aggressive antibiotic therapy, presumably secondary to pneumonia, sputum culture is positive, managed by primary care physician, currently receiving multiple pressors. Will discontinue pressors if possible and monitor blood pressure closely. Oral thrush, mild dysphagia, receiving antibiotic Diarrhea, questionable C. difficile colitis. Increasing dyspnea, probably secondary to pneumonia, has underlying heart failure, I will evaluate BNP. Congestive heart failure, nonischemic cardiomyopathy, acute on chronic left ventricular systolic dysfunction with ejection fraction 20 percent, was on beta blockers and Edvin inhibitors as an outpatient, currently on hold due to hypotension, I will restart beta blockers if possible and monitor blood pressure , planning to add Entresto if tolerated. LifeVest as a primary prevention for sudden , may hold it at this time, patient is complaining about being uncomfortable, he is on telemetry in the intensive care unit. Status post anoxic encephalopathy and pneumonia and sepsis early in October, improved with aggressive therapy. Back to his baseline. Status post acute renal failure. Improved, continue to monitor renal function closely. Nonhealing foot ulcers bilaterally, on the right side is on the outside portion of the ankle, SEAMUS on the right is 0.57, on the left side the ulcer is on the inner part of the foot, SEAMUS 0.32, angiogram showed SFA disease bilaterally, trifurcation was not seen on the right side due to knee replacement. Planning for intervention once clinically stable Hypertension, currently hypotensive, on pressors, I will wean him off the pressors and restart medication slowly. Monitor blood pressure closely. Hyperlipidemia, restart meds and monitor. Hyperthyroidism, history of hypothyroidism and Levothroid, managed by primary care physician, evaluate TSH History of pulmonary hypertension, continue to monitor History of rheumatoid arthritis. COPD, managed and followed by primary care physician Tobaccoism, patient has stopped smoking after the last admission. Encouraged to continue with smoking cessation History of chronic narcotic use, urine drug screen is positive for opioids Clinical Quality Measures DVT/VTE Risk/Contraindication: Risk Factor Score Per Nursin RFS Level Per Nursing on Admit: 4+=Very High TORY HALL MD Nov 30, 2016 09:18
[2016-11-30] MEDS ORDERED: TROUGH ORDER-PHARMACY XX ONE (18:00)
[2016-11-30] MEDS: CARVEDILOL 3.125 MG (COREG) TABLET PO SCH (21:49)
[2016-12-01] VITALS (7 sets, daily range): BP systolic 109–132; BP diastolic 31–78
[2016-12-01] MEDS: PIPERACILLIN/TAZOBACTAM 4.5 GM/NS100 ML IVPB IV SCH ×6 (01:25→18:07)
[2016-12-01 06:40] LABS: BASOPHILS % (AUTO) 0 % (0-10); EOSINOPHILS # (AUTO) 0.2 10^3/uL (0.0-0.3); EOSINOPHILS % (AUTO) 2 % (0-10); LYMPHOCYTES # (AUTO) 1.5 X 10^3 (1.0-4.0); LYMPHOCYTES % (AUTO) 21 % (12-44); MEAN CORPUSCULAR HEMOGLOBIN 28 PG (25-34); MEAN CORPUSCULAR HGB CONC 32 G/DL (32-36); MEAN CORPUSCULAR VOLUME 86 FL (80-99); MEAN PLATELET VOLUME 9.6 FL (7.4-10.4); MONOCYTES # (AUTO) 0.5 X 10^3 (0.0-1.0); MONOCYTES % (AUTO) 7 % (0-12); NEUTROPHILS # (AUTO) 4.8 X 10^3 (1.8-7.8); NEUTROPHILS % (AUTO) 70 % (42-75); PLATELET COUNT 175 10^3/uL (130-400); RED BLOOD COUNT 3.22 10^6/uL (4.35-5.85); RED CELL DISTRIBUTION WIDTH 16.2 % (10.0-14.5); WHITE BLOOD COUNT 6.9 10^3/uL (4.3-11.0)
[2016-12-01] MEDS: NS IV 1000 ML 1,000 ML IV SCH (06:42)
[2016-12-01 07:02] LABS: ANION GAP 8 MMOL/L (5-14); BLOOD UREA NITROGEN 9 MG/DL (7-18); BUN/CREATININE RATIO 12; CALCIUM 6.6 MG/DL (8.5-10.1); CARBON DIOXIDE 21 MMOL/L (21-32); CHLORIDE 110 MMOL/L (98-107); CREATININE SERUM 0.78 MG/DL (0.60-1.30); GFR ESTIMATED > 60; GLUCOSE 66 MG/DL (70-105); MAGNESIUM 1.6 MG/DL (1.8-2.4); POTASSIUM 3.2 MMOL/L (3.6-5.0); SODIUM 139 MMOL/L (135-145)
[2016-12-01] MEDS ORDERED: LEVOTHYROXINE 125 MCG (LEVOTHROID) TABLET PO NR (08:00)
[2016-12-01] MEDS ORDERED: MAGNESIUM 1 GM/100 ML IVPB 100 ML IV NR (08:00)
[2016-12-01] MEDS ORDERED: KCL 10 MEQ TAB (MICRO K) PO NR (08:01)
[2016-12-01] MEDS: RT-ALBUTEROL/IPRATROPIUM 3 ML (DUONEB) VIAL INH SCH ×3 (08:04→20:07)
--- NOTE | 2016-12-01 08:34 | Diagnostic Imaging Report ---
INDICATION: Dyspnea. TECHNIQUE: Single-view chest 6:42 AM. CORRELATION STUDY: 11/30/2016. FINDINGS: A right-sided central line unchanged, tip over the right paramediastinal region likely SVC. Heart size enlarged and there is mild pulmonary vascular congestion. This is perhaps slightly increased. Prominent interstitial markings do persist, compatible with edema, also likely slightly increased. Superimposed areas of edema versus infiltrates, mid and lower lung pineda, also appear slightly progressed. IMPRESSION: Overall appears to be worsening features of fluid overload or failure along with interstitial and likely pulmonary edema. Superimposed infiltrates about the mid/ lower lung pineda not excluded. Dictated by: Dictated on workstation # [id number]
--- NOTE | 2016-12-01 08:41 | Cardiology Progress Note ---
Subjective Subjective/Events-last exam Patient is in bed, feeling better, no chest pain or shortness of breath, C diff positive Review of Systems General: No Chills, No Night Sweats, No Fatigue, No Malaise, No Appetite, No Other HEENT: No Head Aches, No Visual Changes, No Eye Pain, No Ear Pain, No Dysphasia , No Sinus Congestion, No Post Nasal Drip, No Sore Throat, No Other Pulmonary: No Dyspnea, No Cough, No Pleuritic Chest Pain, No Other Cardiovascular: No: Chest Pain, Edema, Lt Headedness, Orthopnea, Other, Palpitations, Paroxysmal Noc. Dyspnea Objective-Cardiology Exam Last Set of Vital Signs Vital Signs 12/01/16 08:29 Temp 98.0 Pulse 66 Resp 18 B/P 129/69 Pulse Ox 100 O2 Delivery Nasal Cannula O2 Flow Rate 2.00 Capillary Refill : Less Than 3 Seconds I&O Intake and Output 12/01/16 00:00 Intake Total 5220 ml Output Total 2000 ml Balance 3220 ml Intake Oral 890 ml IV Total 4330 ml Output Urine Total 2000 ml # Bowel Movements 7 General: Alert, Oriented X3, Cooperative, Mild Distress HEENT: Atraumatic, PERRLA Neck: Supple, No JVD, No Thyromegaly Lungs: Normal Air Movement, Other (wet rales at lt base) Heart: Regular Rate, Normal S1, Normal S2, No Murmurs Abdomen: Normal Bowel Sounds, Soft, No Tenderness, No Hepatosplenomegaly, No Masses Extremities: No Clubbing, No Cyanosis, No Edema, Normal Pulses, No Tenderness/ Swelling Skin: No Rashes, No Breakdown, No Significant Lesion Neuro: Normal Gait, Normal Speech, Strength at 5/5 X4 Ext, Normal Tone, Sensation Intact Psych/Mental Status: Mental Status NL, Mood NL Results Lab Laboratory Tests 12/01/16 06:20 A/P-Cardiology Admission Diagnosis Septic shock Congestive heart failure, acute on chronic left ventricular systolic dysfunction , nonischemic cardiomyopathy Hypotension Peripheral arterial disease Assessment/Plan Sepsis with septic shock, Better, BP is better Oral thrush, mild dysphagia, receiving antibiotic Diarrhea, C. difficile colitis. Short of breath, better at this time, continue to monitor Congestive heart failure, nonischemic cardiomyopathy, acute on chronic left ventricular systolic dysfunction with ejection fraction 20 percent, was on beta blockers and Edvin inhibitors as an outpatient, currently on hold due to hypotension, I will restart beta blockers if possible and monitor blood pressure , planning to add Entresto if tolerated. LifeVest as a primary prevention for sudden , may hold it at this time, patient is complaining about being uncomfortable, he is on telemetry in the intensive care unit. Status post anoxic encephalopathy and pneumonia and sepsis early in October, improved with aggressive therapy. Back to his baseline. Status post acute renal failure. Improved, continue to monitor renal function closely. Nonhealing foot ulcers bilaterally, on the right side is on the outside portion of the ankle, SEAMUS on the right is 0.57, on the left side the ulcer is on the inner part of the foot, SEAMUS 0.32, angiogram showed SFA disease bilaterally, trifurcation was not seen on the right side due to knee replacement. Planning for intervention once clinically stable Hypertension, back to baseline, continue to monitor BP Hyperlipidemia, restart meds and monitor. Hyperthyroidism, history of hypothyroidism and Levothroid, managed by primary care physician, evaluate TSH History of pulmonary hypertension, continue to monitor History of rheumatoid arthritis. COPD, managed and followed by primary care physician Tobaccoism, patient has stopped smoking after the last admission. Encouraged to continue with smoking cessation History of chronic narcotic use, urine drug screen is positive for opioids Clinical Quality Measures DVT/VTE Risk/Contraindication: Risk Factor Score Per Nursin RFS Level Per Nursing on Admit: 4+=Very High TORY HALL MD Dec 01, 2016 08:41
--- NOTE | 2016-12-01 08:45 | Cardiology Progress Note ---
Subjective Subjective/Events-last exam Patient reports he is anxious this morning, was unable to sleep last night. Complains of mild dyspnea. Denies any CP. Review of Systems General: No Night Sweats, No Fatigue, No Malaise HEENT: No Visual Changes, No Dysphasia, No Sore Throat Pulmonary: DyspneaNo Cough, No Pleuritic Chest Pain Cardiovascular: No: Chest Pain, Edema, Orthopnea, Palpitations Gastrointestinal: No: Abdominal Pain, Nausea, Vomiting Genitourinary: No Dysuria, No Frequency Musculoskeletal: No: back pain, neck pain Neurological: : WeaknessNo: Change in speech, Confusion, Numbness Objective-Cardiology Exam Last Set of Vital Signs Vital Signs 12/01/16 08:29 Temp 98.0 Pulse 66 Resp 18 B/P 129/69 Pulse Ox 100 O2 Delivery Nasal Cannula O2 Flow Rate 2.00 Capillary Refill : Less Than 3 Seconds I&O Intake and Output 12/01/16 00:00 Intake Total 5220 ml Output Total 2000 ml Balance 3220 ml Intake Oral 890 ml IV Total 4330 ml Output Urine Total 2000 ml # Bowel Movements 7 General: Alert, Oriented X3, Cooperative HEENT: Atraumatic, PERRLA Neck: Supple, No JVD, No Thyromegaly Lungs: Other (diminished breath sounds) Heart: Regular Rate, Normal S1, Normal S2 Abdomen: Normal Bowel Sounds, Soft Skin: No Rashes, No Significant Lesion Neuro: Normal Speech, Cranial Nerves 3-12 NL Psych/Mental Status: Mental Status NL Results Lab Laboratory Tests 12/01/16 06:20 A/P-Cardiology Admission Diagnosis Septic shock Congestive heart failure, acute on chronic left ventricular systolic dysfunction , nonischemic cardiomyopathy Hypotension Peripheral arterial disease Assessment/Plan Sepsis with septic shock, started on aggressive antibiotic therapy, presumably secondary to pneumonia, sputum culture is positive, managed by primary care physician. Oral thrush, mild dysphagia, receiving antibiotic Diarrhea, C. difficile colitis. Managed by PCP. Dyspnea, probably secondary to pneumonia, has underlying heart failure, continue current treatment and continue to monitor. Congestive heart failure, nonischemic cardiomyopathy, acute on chronic left ventricular systolic dysfunction with ejection fraction 20 percent, was on beta blockers and Edvin inhibitors as an outpatient, blood pressure improved and low dose beta gurpreet added, planning to add Entresto if tolerated. LifeVest as a primary prevention for sudden , may hold it at this time, patient is complaining about being uncomfortable, he is on telemetry Status post anoxic encephalopathy and pneumonia and sepsis early in October, improved with aggressive therapy. Back to his baseline. Status post acute renal failure. Improved, continue to monitor renal function closely. Nonhealing foot ulcers bilaterally, on the right side is on the outside portion of the ankle, SEAMUS on the right is 0.57, on the left side the ulcer is on the inner part of the foot, SEAMUS 0.32, angiogram showed SFA disease bilaterally, trifurcation was not seen on the right side due to knee replacement. Planning for intervention once clinically stable Hypertension, borderline hypotensive. Continue to monitor. Hyperlipidemia,monitored as outpatient. Hyperthyroidism, history of hypothyroidism and Levothroid, managed by primary care physician History of pulmonary hypertension, continue to monitor History of rheumatoid arthritis. COPD, managed and followed by primary care physician Tobaccoism, patient has stopped smoking after the last admission. Encouraged to continue with smoking cessation History of chronic narcotic use, urine drug screen is positive for opioids Clinical Quality Measures DVT/VTE Risk/Contraindication: Risk Factor Score Per Nursin RFS Level Per Nursing on Admit: 4+=Very High FATUMA GARCES Dec 01, 2016 08:45
[2016-12-01] MEDS: KCL 10 MEQ TAB (MICRO K) PO SCH ×2 (08:49→18:07)
[2016-12-01] MEDS: metroNIDAZOLE 500 MG (FLAGYL) TAB PO SCH ×3 (08:50→20:21)
[2016-12-01] MEDS: ASPIRIN E.C. 81 MG (ECOTRIN) TAB PO SCH (08:50)
[2016-12-01] MEDS: PANTOPRAZOLE 40 MG (PROTONIX) TAB PO SCH (08:50)
[2016-12-01] MEDS: CARVEDILOL 3.125 MG (COREG) TABLET PO SCH ×2 (08:50→20:21)
[2016-12-01] MEDS: fluCOnazole (DIFLUCAN) 100 MG TAB PO SCH (08:50)
--- NOTE | 2016-12-01 08:53 | Progress Note-Hospitalist ---
Subjective HPI/CC On Admission The patient is a 71-year-old white male who was brought to the emergency room last night from [facility]. The observation sent along with him suggested fever and confusion. He had been hospitalized here from November 07 through November 17. On the initial presentation he had pneumonia and was placed on the ventilator for several days. He received extended IV antibiotics. He was known to have COPD and was a unrepentant smoker. During the hospitalization he had a coronary angiogram which showed a severe cardiomyopathy which was nonischemic with severely elevated left ventricular end diastolic pressure. He reports he had no observation that he was performing any differently. He did not know that he had had a fever. He thought that perhaps the [facility] staff was confused. He now also complains of diarrhea. Date Seen 12/01/16 Subjective/Events-last exam After late transfer from intensive care unit patient reports she did not sleep well and is feeling anxious this morning. He reports some mild shortness of breath but denies chest pain. His cough is diminished as has sputum production. Diarrhea has diminished and there's been a little more formed to the last 2 stools he's had. He's had no blood in denies abdominal cramping. He denies palpitations or heart racing sensation. Objective Exam Vital Signs Vital Sign - Last 12Hours 11/29/16 01:35 Temp 101.1 Pulse 109 Resp 22 B/P 77/50 Pulse Ox 88 O2 Delivery Nasal Cannula O2 Flow Rate 2 Capillary Refill : Less Than 3 Seconds General Appearance: Anxious Respiratory: Chest Non Tender Lungs Clear (Anteriorly) No Accessory Muscle Use No Respiratory Distress Other (Somewhat decrease breath sounds in both bases no rales or rhonchi are noted. No wheezing is appreciated.) Cardiovascular: Regular Rate, Rhythm No Edema No Gallop No JVD No Murmur Gastrointestinal: Normal Bowel Sounds No Organomegaly No Pulsatile Mass Non Tender Soft Extremity: Other (1+ bilateral lower extremity edema) Results/Procedures Lab Laboratory Tests 12/02/16 05:35 Assessment/Plan Assessment and Plan Assess & Plan/Chief Complaint !. Sepsis likely due to pneumonia growing Escherichia coli from sputum will DC vancomycin and quinolone therapy continuing Zosyn. Patient is responding with resolution of confusion and normalization of blood pressure. Resume DARREL inhibitor therapy in the form of low-dose enalapril 2. C. difficile colitis Flagyl has been initiated and the patient is responding with diminishing diarrhea. 3. Normalization BUN/creatinine ratio increasing blood pressure in an individual with an ejection fraction of 20 percent we will DC IV fluids. Chest exam is clearing exam today consistent with compensated systolic heart failure 4. Hypomagnesemia replace mild hypokalemia replace orally. FLOR CARABALLO MD Dec 01, 2016 08:53
[2016-12-01] MEDS: MENTHOL/ZINC OXIDE (CALMOSEPTINE) 113 GM TUBE TOP SCH ×3 (08:59→20:23)
[2016-12-01] MEDS ORDERED: ENALAPRIL 2.5 MG (VASOTEC) TAB PO SCH (09:00)
[2016-12-01] MEDS ORDERED: ATORVASTATIN 40 MG (LIPITOR) TABLET PO SCH (21:00)
[2016-12-01] MEDS ORDERED: fentaNYL INJECTION 100 MCG/2 ML AMP IVP PRN (23:30)
[2016-12-02] VITALS: BP 121/66
[2016-12-02] MEDS: PIPERACILLIN/TAZOBACTAM 4.5 GM/NS100 ML IVPB IV SCH ×4 (01:19→09:48)
[2016-12-02 05:53] LABS: BASOPHILS % (AUTO) 0 % (0-10); EOSINOPHILS # (AUTO) 0.1 10^3/uL (0.0-0.3); EOSINOPHILS % (AUTO) 2 % (0-10); LYMPHOCYTES % (AUTO) 27 % (12-44); MEAN CORPUSCULAR HEMOGLOBIN 28 PG (25-34); MEAN CORPUSCULAR HGB CONC 33 G/DL (32-36); MEAN CORPUSCULAR VOLUME 85 FL (80-99); MEAN PLATELET VOLUME 9.5 FL (7.4-10.4); MONOCYTES # (AUTO) 0.5 X 10^3 (0.0-1.0); MONOCYTES % (AUTO) 7 % (0-12); NEUTROPHILS # (AUTO) 4.8 X 10^3 (1.8-7.8); NEUTROPHILS % (AUTO) 64 % (42-75); PLATELET COUNT 185 10^3/uL (130-400); RED BLOOD COUNT 3.17 10^6/uL (4.35-5.85); RED CELL DISTRIBUTION WIDTH 16.4 % (10.0-14.5); WHITE BLOOD COUNT 7.5 10^3/uL (4.3-11.0)
[2016-12-02 06:00] LABS: ANION GAP 7 MMOL/L (5-14); BLOOD UREA NITROGEN 9 MG/DL (7-18); BUN/CREATININE RATIO 11; CALCIUM 6.7 MG/DL (8.5-10.1); CARBON DIOXIDE 20 MMOL/L (21-32); CHLORIDE 111 MMOL/L (98-107); CREATININE SERUM 0.79 MG/DL (0.60-1.30); GFR ESTIMATED > 60; GLUCOSE 67 MG/DL (70-105); MAGNESIUM 1.6 MG/DL (1.8-2.4); POTASSIUM 3.1 MMOL/L (3.6-5.0); SODIUM 138 MMOL/L (135-145)
[2016-12-02] MEDS ORDERED: LEVOTHYROXINE 125 MCG (LEVOTHROID) TABLET PO SCH (06:30)
[2016-12-02 08:00] VITALS: BP 139/78
[2016-12-02] MEDS: RT-ALBUTEROL/IPRATROPIUM 3 ML (DUONEB) VIAL INH SCH (08:11)
[2016-12-02] MEDS: KCL 10 MEQ TAB (MICRO K) PO SCH (09:47)
[2016-12-02] MEDS: metroNIDAZOLE 500 MG (FLAGYL) TAB PO SCH (09:47)
[2016-12-02] MEDS: ASPIRIN E.C. 81 MG (ECOTRIN) TAB PO SCH (09:47)
[2016-12-02] MEDS: PANTOPRAZOLE 40 MG (PROTONIX) TAB PO SCH (09:47)
[2016-12-02] MEDS: CARVEDILOL 3.125 MG (COREG) TABLET PO SCH (09:47)
[2016-12-02] MEDS: fluCOnazole (DIFLUCAN) 100 MG TAB PO SCH (09:47)
[2016-12-02] MEDS: MENTHOL/ZINC OXIDE (CALMOSEPTINE) 113 GM TUBE TOP SCH (09:48)
[2016-12-02] MEDS ORDERED: MAGNESIUM 1 GM/100 ML IVPB 100 ML IV SCH (10:45)
[2016-12-02] MEDS ORDERED: RT-ALBUTEROL/IPRATROPIUM 3 ML (DUONEB) VIAL INH SCH (11:00)
[2016-12-02] MEDS ORDERED: KCL 20 MEQ TAB (K-DUR) PO NR (11:20)
[2016-12-02] MEDS ORDERED: FUROSEMIDE 40 MG/4 ML INJ (LASIX) ONE (11:38)
[2016-12-02] MEDS ORDERED: DIPHENOXYLATE/ATROPINE 2.5MG/0.025MG (LOMOTIL) TAB PO PRN (12:15)
[2016-12-02] MEDS ORDERED: FUROSEMIDE 40 MG/4 ML INJ (LASIX) IVP NR (12:15)
[2016-12-02] MEDS ORDERED: CHOLESTYRAMINE 4 GM (QUESTRAN LITE, PREVALITE) PKT PO NR (12:15)
--- NOTE | 2016-12-02 12:15 | Progress Note-Hospitalist ---
Subjective HPI/CC On Admission The patient is a 71-year-old white male who was brought to the emergency room last night from the [facility]. The observation sent along with him suggested fever and confusion. He had been hospitalized here from November 07 through November 17. On the initial presentation he had pneumonia and was placed on the ventilator for several days. He received extended IV antibiotics. He was known to have COPD and was a unrepentant smoker. During the hospitalization he had a coronary angiogram which showed a severe cardiomyopathy which was nonischemic with severely elevated left ventricular end diastolic pressure. He reports he had no observation that he was performing any differently. He did not know that he had had a fever. He thought that perhaps the [facility] staff was confused. He now also complains of diarrhea. Date Seen 12/02/16 Subjective/Events-last exam She reports diarrhea persists with rectal irritation. No bleeding is noted he denies abdominal pain or cramping. Nursing staff report his weight is up 20 pounds and he said increased lower extremity edema. He denies dyspnea at rest or chest discomfort. He has mild cough that is nonproductive. Objective Exam Vital Signs Vital Sign - Last 12Hours 11/29/16 01:35 Temp 101.1 Pulse 109 Resp 22 B/P 77/50 Pulse Ox 88 O2 Delivery Nasal Cannula O2 Flow Rate 2 Capillary Refill : Less Than 3 SecondsLess Than 3 Seconds General Appearance: No Apparent Distress Anxious Chronically ill Respiratory: Other (Rales noted in bases which is new no wheezing or rhonchi are appreciated.) Cardiovascular: Regular Rate, Rhythm No Edema No Gallop No JVD No Murmur Gastrointestinal: Normal Bowel Sounds No Organomegaly No Pulsatile Mass Non Tender Soft Extremity: Other (2+ bilateral lower extremity edema is noted. No upper extremity edema is present.) Results/Procedures Lab Laboratory Tests 12/02/16 05:35 Assessment/Plan Assessment and Plan Assess & Plan/Chief Complaint !. Sepsis likely due to pneumonia growing Escherichia coli from sputum day 6 Zosyn consider stopping after one week of therapy considering diarrhea persists with known C. difficile colitis.. Patient is responding with resolution of confusion and normalization of blood pressure. 2. C. difficile colitis Flagyl day 3. We'll add Questran Light twice a day and when necessary Lomotil now the patient is been on Flagyl for 3 days. 3. Normalization BUN/creatinine ratio increasing blood pressure in an individual with an ejection fraction of 20 percent with increasing peripheral edema and a reported 20 pound weight gain full resume IV Lasix and continue monitor daily weights.. 4. Hypomagnesemia replace mild hypokalemia replace orally. FLOR CARABALLO MD Dec 02, 2016 12:15
[2016-12-02] MEDS ORDERED: KCL 10 MEQ TAB (MICRO K) PO SCH (18:00)
[2016-12-02] MEDS ORDERED: CHOLESTYRAMINE 4 GM (QUESTRAN LITE, PREVALITE) PKT PO SCH (22:00)
[2016-12-03] MEDS ORDERED: FUROSEMIDE 40 MG/4 ML INJ (LASIX) IVP SCH (09:00)
[2016-12-21] MEDS ORDERED: ENOX40DI8 SC (11:19)
[2016-12-21] MEDS ORDERED: METR500T21 PO (11:19)
[2016-12-21] MEDS ORDERED: MORP4CAR IVP (11:19)
[2016-12-21] MEDS ORDERED: ONDA4VIA28 IV (11:19)
[2016-12-21] MEDS ORDERED: VANCOMYCIN PO ×2 (11:22→13:15)
--- NOTE | 2016-12-24 11:17 | Discharge Summary-Hospitalist ---
Diagnosis/Chief Complaint Date of Admission Nov 29, 2016 at 02:55 Date of Discharge Dec 02, 2016 at 12:27 Discharge Date: Dec 02, 2016 Admission Diagnosis 1.febrile illness with ambivalent findings of pneumonia, possible sepsis. 2.hypotension. 3.cardiomyopathy. Discharge Diagnosis !. Sepsis likely due to pneumonia growing Escherichia coli from sputum day 6 Zosyn consider stopping after one week of therapy considering diarrhea persists with known C. difficile colitis.. Patient is responding with resolution of confusion and normalization of blood pressure. 2. C. difficile colitis Flagyl day 3. We'll add Questran Light twice a day and when necessary Lomotil now the patient is been on Flagyl for 3 days. 3. Normalization BUN/creatinine ratio increasing blood pressure in an individual with an ejection fraction of 20 percent with increasing peripheral edema and a reported 20 pound weight gain full resume IV Lasix and continue monitor daily weights.. 4. Hypomagnesemia replace mild hypokalemia replace orally. Reason Hospital Visit/Course The patient is a 71-year-old white male who was brought to the emergency room last night from the long-term. The observation sent along with him suggested fever and confusion. He had been hospitalized here from November 07 through November 17. On the initial presentation he had pneumonia and was placed on the ventilator for several days. He received extended IV antibiotics. He was known to have COPD and was a unrepentant smoker. During the hospitalization he had a coronary angiogram which showed a severe cardiomyopathy which was nonischemic with severely elevated left ventricular end diastolic pressure. He reports he had no observation that he was performing any differently. He did not know that he had had a fever. He thought that perhaps the long-term staff was confused. He now also complains of diarrhea. Hospital course: He was noted to be C. difficile positive and Flagyl and Questran were initiated. He had slow improvement in diarrhea with return of appetite. He continues to be quite weak however. He was transferred to swing bed status to continue antibiotics for pneumonia as well as C. difficile colitis. Discharge Summary Discharge Physical Examination Allergies: Coded Allergies: Sulfa (Sulfonamide Antibiotics) (Unverified Allergy, Unknown, 11/07/16) Hospital Course Labs (last 24 hrs) Microbiology 11/29/16 Blood Culture - Preliminary, Resulted Staph, Coag Neg (Research Dietitian) 11/29/16 C. difficile GDH Antigen & Toxins - Final, Complete 11/29/16 Gram Stain - Final, Complete 11/29/16 Sputum Culture - Final, Complete Escherichia Coli Presumptive Julieta Albicans Discharge Home Medications: Active Scripts Active [Vancomycin] 125 Mg PO Q6H 8 Days Metronidazole 500 Mg Tablet 500 Mg PO TID 14 Days Ondansetron HCl 4 mg/2 ml Vial (Ondansetron HCl/Pf) 4 Mg/2 Ml Vial 4 Mg IV Q4H PRN 30 Days Morphine Sulfate 4 Mg/1 Ml Cartridge 2-4 Mg IVP Q2H PRN 30 Days Enoxaparin Sodium 40 Mg/0.4 Ml Syringe 40 Mg SC 1400 30 Days Reported Morphine Sulfate ER (Morphine Sulfate) 30 Mg Tablet.er 30 Mg PO Q8H PRN Entresto 24 mg-26 mg Tablet (Sacubitril/Valsartan) 1 Each Tablet 1 Tab PO BID Carvedilol 3.125 Mg Tablet 3.125 Mg PO BID Potassium Chloride 10 Meq Tab.er.prt 10 Meq PO DAILY Levothyroxine Sodium 175 Mcg Tablet 175 Mcg PO DAILY@0600 Furosemide 20 Mg Tablet 20 Mg PO DAILY Calcium 600 + Vit D 200 Tablet (Calcium Carbonate/Vitamin D3) 1 Each Tablet 1 Tab PO DAILY Iprat-Albut 0.5-3(2.5) mg/3 ml (Ipratropium/Albuterol Sulfate) 3 Ml Ampul.neb 3 Ml IH Q6H PRN Hydrocodon-Acetaminophn 10-325 (Hydrocodone/Acetaminophen) 1 Each Tablet 1 Tab PO Q6H PRN Lipitor (Atorvastatin Calcium) 40 Mg Tablet 40 Mg PO HS Aspirin Ec 81 Mg (Aspirin) 81 Mg Tabec 81 Mg PO DAILY Protonix Tab (Pantoprazole Sod) 40 Mg Tab 40 Mg PO DAILY Instructions to patient/family Please see electonic discharge instructions given to patient. Clinical Quality Measures DVT/VTE Risk/Contraindication: Risk Factor Score Per Nursin RFS Level Per Nursing on Admit: 4+=Very High FLOR CARABALLO MD Dec 24, 2016 11:17
== END 2016-12-02 12:27 | disposition swing bed (61) | DRG 871 ==
LOC: EDUNIT# 01:22 → ER 01:30 → ICU 02:55 → 4TH 11-30 22:12
PROVIDERS: ADMIT Internal Medicine; ATTEND Internal Medicine
PROC: 02HV33Z Insertion of Infusion Device into Superior Vena Cava, Percutaneous Approach (ICD-10-PCS; principal; 2016-11-29)
DX: A41.51 Sepsis due to Escherichia coli [E. coli] (principal); R65.21 Severe sepsis with septic shock; J44.0 Chronic obstructive pulmonary disease with (acute) lower respiratory infection; J15.5 Pneumonia due to Escherichia coli; I11.0 Hypertensive heart disease with heart failure; I50.23 Acute on chronic systolic (congestive) heart failure; I42.9 Cardiomyopathy, unspecified; A04.7 Enterocolitis due to Clostridium difficile; B37.0 Candidal stomatitis; F17.210 Nicotine dependence, cigarettes, uncomplicated; I25.10 Atherosclerotic heart disease of native coronary artery without angina pectoris; E83.42 Hypomagnesemia; R13.10 Dysphagia, unspecified; I70.233 Atherosclerosis of native arteries of right leg with ulceration of ankle; I70.234 Atherosclerosis of native arteries of right leg with ulceration of heel and midfoot; L97.319 Non-pressure chronic ulcer of right ankle with unspecified severity; L97.429 Non-pressure chronic ulcer of left heel and midfoot with unspecified severity; I27.2 Other secondary pulmonary hypertension; M06.9 Rheumatoid arthritis, unspecified; F41.9 Anxiety disorder, unspecified; E78.00 Pure hypercholesterolemia, unspecified; E03.9 Hypothyroidism, unspecified; D64.9 Anemia, unspecified; K21.9 Gastro-esophageal reflux disease without esophagitis; M81.0 Age-related osteoporosis without current pathological fracture; E87.6 Hypokalemia; Z23 Encounter for immunization; Z79.891 Long term (current) use of opiate analgesic
CPT/HCPCS: 36415; 36556; 71010; 80048; 80053; 81000; 82805; 82962; 83605; 83735; 84100; 84484; 85025; 85610; 85730; 87040; 87070; 87077; 87081; 87186; 87205; 87324; 87449; 87804; 93005; 93041; 94640; 94760; 96361; 96365; 96367

== ENCOUNTER 2016-12-02 12:09 | Inpatient (IN) | payer MEDICARE ==
[~2016-12-02] VITALS: Ht 172.7 cm; Wt 70.4 kg
[~2016-12-02 12:09] MED LIST changes: +ATOR40TA PO; +IPRA3AMP IH; +MORP30TA PO; +ONDA8TAB6 PO; +TIZA6CAP9 PO
[2016-12-02] MEDS ORDERED: ACETAMINOPHEN 325 MG TABLET/CAPLET (TYLENOL) PO PRN (12:30)
[2016-12-02] MEDS ORDERED: DIPHENOXYLATE/ATROPINE 2.5MG/0.025MG (LOMOTIL) TAB PO PRN (12:30)
[2016-12-02] MEDS ORDERED: PIPERACILLIN SODIUM/TAZOBACTAM 4.5 GM in NS (IVPB) 100 ML IV SCH (12:30)
[2016-12-02] MEDS ORDERED: ACETAMINOPHEN 650 MG SUPP (TYLENOL) PR PRN (12:30)
[2016-12-02] MEDS ORDERED: FUROSEMIDE 40 MG/4 ML INJ (LASIX) IVP NR (12:45)
[2016-12-02] MEDS ORDERED: RT-ALBUTEROL/IPRATROPIUM 3 ML (DUONEB) VIAL INH PRN (12:59)
[2016-12-02] MEDS ORDERED: CHOLESTYRAMINE 4 GM (QUESTRAN LITE, PREVALITE) PKT PO NR (13:00)
[2016-12-02] MEDS ORDERED: metroNIDAZOLE 500 MG (FLAGYL) TAB PO SCH (13:00)
[2016-12-02] MEDS: MENTHOL/ZINC OXIDE (CALMOSEPTINE) 113 GM TUBE TOP SCH ×2 (13:19→21:26)
[2016-12-02] MEDS: MAGNESIUM 1 GM/100 ML IVPB 100 ML IV SCH ×2 (13:26→14:46)
[2016-12-02] MEDS: metroNIDAZOLE 500 MG (FLAGYL) TAB PO SCH ×2 (13:26→21:25)
[2016-12-02] MEDS ORDERED: FLU TRIvalent (5 YOA+) 2016-17 (AFLURIA) 0.5 ML IM ONE (13:45)
[2016-12-02] MEDS: RT-ALBUTEROL/IPRATROPIUM 3 ML (DUONEB) VIAL INH SCH ×2 (14:04→19:58)
--- NOTE | 2016-12-02 15:58 | Cardiology Progress Note ---
Subjective Subjective/Events-last exam patient is laying down in bed, still having significant diarrhea. No chest pain or shortness of breath Review of Systems General: No Chills, No Night Sweats, No Fatigue, No Malaise, No Appetite, No Other HEENT: No Head Aches, No Visual Changes, No Eye Pain, No Ear Pain, No Dysphasia , No Sinus Congestion, No Post Nasal Drip, No Sore Throat, No Other Pulmonary: No Dyspnea, No Cough, No Pleuritic Chest Pain, No Other Cardiovascular: No: Chest Pain, Edema, Lt Headedness, Orthopnea, Other, Palpitations, Paroxysmal Noc. Dyspnea Objective-Cardiology Exam Last Set of Vital Signs Vital Signs 12/02/16 14:05 Pulse Ox 94 O2 Flow Rate 2.00 Capillary Refill : General: Alert, Oriented X3, Cooperative HEENT: Atraumatic, PERRLA Neck: Supple, No JVD, No Thyromegaly Lungs: Clear to Auscultation, Normal Air Movement Heart: Regular Rate, Normal S1, Normal S2, No Murmurs, Gallops Abdomen: Normal Bowel Sounds, Soft, No Tenderness, No Hepatosplenomegaly, No Masses Extremities: No Clubbing, No Cyanosis, No Edema, Normal Pulses, No Tenderness/ Swelling Skin: No Rashes, No Breakdown, No Significant Lesion Neuro: Normal Speech, Strength at 5/5 X4 Ext, Normal Tone, Sensation Intact Psych/Mental Status: Mental Status NL, Mood NL A/P-Cardiology Admission Diagnosis peripheral arterial disease Coronary artery disease nonhealing foot ulcer Diarrhea Assessment/Plan Sepsis with septic shock, Better, improved, still having diarrhea. Managed by primary care physician. Oral thrush, mild dysphagia, receiving antibiotic Diarrhea, C. difficile colitis. Managed by primary care physician Short of breath, better at this time, continue to monitor Congestive heart failure, nonischemic cardiomyopathy, acute on chronic left ventricular systolic dysfunction with ejection fraction 20 percent, was on beta blockers and Edvin inhibitors as an outpatient, currently on hold due to hypotension, I will restart beta blockers if possible and monitor blood pressure , planning to add Entresto if tolerated. LifeVest as a primary prevention for sudden , may hold it at this time, patient is complaining about being uncomfortable, he is on telemetry in the intensive care unit. Status post anoxic encephalopathy and pneumonia and sepsis early in October, improved with aggressive therapy. Back to his baseline. Status post acute renal failure. Improved, continue to monitor renal function closely. Nonhealing foot ulcers bilaterally, on the right side is on the outside portion of the ankle, SEAMUS on the right is 0.57, on the left side the ulcer is on the inner part of the foot, SEAMUS 0.32, angiogram showed SFA disease bilaterally, trifurcation was not seen on the right side due to knee replacement. Planning for intervention once clinically stable Hypertension, back to baseline, continue to monitor BP Hyperlipidemia, restart meds and monitor. Hyperthyroidism, history of hypothyroidism and Levothroid, managed by primary care physician, evaluate TSH History of pulmonary hypertension, continue to monitor History of rheumatoid arthritis. COPD, managed and followed by primary care physician Tobaccoism, patient has stopped smoking after the last admission. Encouraged to continue with smoking cessation History of chronic narcotic use, urine drug screen is positive for opioids TORY HALL MD Dec 02, 2016 15:58
[2016-12-02] MEDS: KCL 10 MEQ TAB (MICRO K) PO SCH (17:35)
[2016-12-02] MEDS: PIPERACILLIN SODIUM/TAZOBACTAM 4.5 GM in NS (IVPB) 100 ML IV SCH (17:36)
[2016-12-02 18:00] VITALS: BP 131/74
[2016-12-02] MEDS: CARVEDILOL 3.125 MG (COREG) TABLET PO SCH (21:25)
[2016-12-02] MEDS: ATORVASTATIN 40 MG (LIPITOR) TABLET PO SCH (21:25)
[2016-12-02] MEDS: fentaNYL INJECTION 100 MCG/2 ML AMP IVP PRN (21:29)
[2016-12-02] MEDS: CHOLESTYRAMINE 4 GM (QUESTRAN LITE, PREVALITE) PKT PO SCH (22:58)
[2016-12-03] MEDS: PIPERACILLIN SODIUM/TAZOBACTAM 4.5 GM in NS (IVPB) 100 ML IV SCH ×3 (02:30→18:28)
[2016-12-03] MEDS: fentaNYL INJECTION 100 MCG/2 ML AMP IVP PRN ×3 (02:30→20:25)
[2016-12-03 06:00] VITALS: BP 125/90
[2016-12-03] MEDS: PANTOPRAZOLE 40 MG (PROTONIX) TAB PO SCH (06:22)
[2016-12-03] MEDS: LEVOTHYROXINE 125 MCG (LEVOTHROID) TABLET PO SCH (06:22)
[2016-12-03] MEDS: RT-ALBUTEROL/IPRATROPIUM 3 ML (DUONEB) VIAL INH SCH ×4 (08:17→19:22)
--- NOTE | 2016-12-03 08:41 | Cardiology Progress Note ---
Subjective Subjective/Events-last exam patient is laying down in bed, feeling better. Less dyspnea, no chest pain. Review of Systems General: No Chills, No Night Sweats, No Fatigue, No Malaise, No Appetite, No Other HEENT: No Head Aches, No Visual Changes, No Eye Pain, No Ear Pain, No Dysphasia , No Sinus Congestion, No Post Nasal Drip, No Sore Throat, No Other Pulmonary: No Dyspnea, No Cough, No Pleuritic Chest Pain, No Other Cardiovascular: No: Chest Pain, Edema, Lt Headedness, Orthopnea, Other, Palpitations, Paroxysmal Noc. Dyspnea Objective-Cardiology Exam Last Set of Vital Signs Vital Signs 12/03/16 12/03/16 06:00 08:17 Temp 98.0 Pulse 85 Resp 20 B/P 125/90 Pulse Ox 97 O2 Delivery Nasal Cannula O2 Flow Rate 1.00 Capillary Refill : I&O Bad tableGeneral: Alert, Oriented X3, Cooperative HEENT: Atraumatic, PERRLA Neck: Supple, No JVD, No Thyromegaly Lungs: Clear to Auscultation, Normal Air Movement Heart: Regular Rate, Normal S1, Normal S2, No Murmurs, Gallops Abdomen: Normal Bowel Sounds, Soft, No Tenderness, No Hepatosplenomegaly, No Masses Extremities: No Clubbing, No Cyanosis, No Edema, Normal Pulses, No Tenderness/ Swelling Skin: No Rashes, No Breakdown, No Significant Lesion Neuro: Normal Speech, Strength at 5/5 X4 Ext, Normal Tone, Sensation Intact Psych/Mental Status: Mental Status NL, Mood NL A/P-Cardiology Admission Diagnosis peripheral arterial disease Coronary artery disease nonhealing foot ulcer Diarrhea Assessment/Plan Sepsis improving, still having diarrhea but reporting improvement. Receiving antibiotic and managed by primary care physician Oral thrush, mild dysphagia, receiving antibiotic Diarrhea, C. difficile colitis. Managed by primary care physician Short of breath, better at this time, continue to monitor Congestive heart failure, nonischemic cardiomyopathy, acute on chronic left ventricular systolic dysfunction with ejection fraction 20 percent, was on beta blockers and Edvin inhibitors as an outpatient, currently on hold due to hypotension, I will restart beta blockers if possible and monitor blood pressure , I will add Entresto and monitor LifeVest as a primary prevention for sudden , may hold it at this time, patient is complaining about being uncomfortable, he is on telemetry in the intensive care unit. Status post anoxic encephalopathy and pneumonia and sepsis early in October, improved with aggressive therapy. Back to his baseline. Status post acute renal failure. Improved, continue to monitor renal function closely. Nonhealing foot ulcers bilaterally, on the right side is on the outside portion of the ankle, SEAMUS on the right is 0.57, on the left side the ulcer is on the inner part of the foot, SEAMUS 0.32, angiogram showed SFA disease bilaterally, trifurcation was not seen on the right side due to knee replacement. Planning for intervention once clinically stable Hypertension, back to baseline, continue to monitor BP Hyperlipidemia, restart meds and monitor. Hyperthyroidism, history of hypothyroidism and Levothroid, managed by primary care physician, evaluate TSH History of pulmonary hypertension, continue to monitor History of rheumatoid arthritis. COPD, managed and followed by primary care physician Tobaccoism, patient has stopped smoking after the last admission. Encouraged to continue with smoking cessation History of chronic narcotic use, urine drug screen is positive for opioids TORY HALL MD Dec 03, 2016 08:41
[2016-12-03] MEDS ORDERED: fluCOnazole (DIFLUCAN) 100 MG TAB PO SCH (09:00)
[2016-12-03] MEDS: SACUBITRIL/VALSARTAN 24/26 MG (ENTRESTO) TABLET PO SCH ×2 (09:26→20:20)
[2016-12-03] MEDS: KCL 10 MEQ TAB (MICRO K) PO SCH (09:26)
[2016-12-03] MEDS: FUROSEMIDE 40 MG/4 ML INJ (LASIX) IVP SCH (09:27)
[2016-12-03] MEDS: fluCOnazole (DIFLUCAN) 100 MG TAB PO SCH (09:27)
[2016-12-03] MEDS: metroNIDAZOLE 500 MG (FLAGYL) TAB PO SCH ×3 (09:27→20:20)
[2016-12-03] MEDS: ASPIRIN E.C. 81 MG (ECOTRIN) TAB PO SCH (09:27)
[2016-12-03] MEDS: MENTHOL/ZINC OXIDE (CALMOSEPTINE) 113 GM TUBE TOP SCH ×3 (09:28→20:26)
[2016-12-03] MEDS: CARVEDILOL 3.125 MG (COREG) TABLET PO SCH ×2 (09:28→20:20)
[2016-12-03] MEDS: CATHETER FLUSH 10 ML SYR IV PRN ×2 (10:08→20:25)
[2016-12-03] MEDS: CHOLESTYRAMINE 4 GM (QUESTRAN LITE, PREVALITE) PKT PO SCH ×2 (10:11→21:17)
[2016-12-03] MEDS ORDERED: KCL 20 MEQ TAB (K-DUR) PO NR (11:20)
[2016-12-03 12:50] LABS: BASOPHILS % (AUTO) 0 % (0-10); EOSINOPHILS # (AUTO) 0.2 10^3/uL (0.0-0.3); EOSINOPHILS % (AUTO) 2 % (0-10); LYMPHOCYTES # (AUTO) 2.1 X 10^3 (1.0-4.0); LYMPHOCYTES % (AUTO) 19 % (12-44); MEAN CORPUSCULAR HEMOGLOBIN 28 PG (25-34); MEAN CORPUSCULAR HGB CONC 33 G/DL (32-36); MEAN CORPUSCULAR VOLUME 84 FL (80-99); MEAN PLATELET VOLUME 9.4 FL (7.4-10.4); MONOCYTES # (AUTO) 0.9 X 10^3 (0.0-1.0); MONOCYTES % (AUTO) 8 % (0-12); NEUTROPHILS # (AUTO) 7.8 X 10^3 (1.8-7.8); NEUTROPHILS % (AUTO) 71 % (42-75); PLATELET COUNT 218 10^3/uL (130-400); RED BLOOD COUNT 3.47 10^6/uL (4.35-5.85); RED CELL DISTRIBUTION WIDTH 16.2 % (10.0-14.5)
[2016-12-03 13:08] LABS: ALANINE AMINOTRANSFERASE 37 U/L (0-55); ALBUMIN 1.8 G/DL (3.2-4.5); ANION GAP 7 MMOL/L (5-14); ASPARTATE AMINO TRANSFERASE 15 U/L (5-34); BILIRUBIN,TOTAL 0.3 MG/DL (0.1-1.0); BLOOD UREA NITROGEN 7 MG/DL (7-18); BUN/CREATININE RATIO 8; CALCIUM 6.9 MG/DL (8.5-10.1); CARBON DIOXIDE 23 MMOL/L (21-32); CHLORIDE 108 MMOL/L (98-107); CREATININE SERUM 0.87 MG/DL (0.60-1.30); GFR ESTIMATED > 60; GLUCOSE 87 MG/DL (70-105); SODIUM 138 MMOL/L (135-145); TOTAL PROTEIN 4.1 G/DL (6.4-8.2)
[2016-12-03] MEDS ORDERED: KCL 20 MEQ TAB (K-DUR) PO ONE (17:00)
[2016-12-03 17:45] VITALS: BP 108/63
[2016-12-03] MEDS: ATORVASTATIN 40 MG (LIPITOR) TABLET PO SCH (20:20)
[2016-12-04] VITALS (12 sets, daily range): BP systolic 102–125; BP diastolic 65–83
[2016-12-04] MEDS: CATHETER FLUSH 10 ML SYR IV PRN ×4 (00:16→09:23)
[2016-12-04] MEDS: fentaNYL INJECTION 100 MCG/2 ML AMP IVP PRN ×8 (00:16→23:41)
[2016-12-04] MEDS: PIPERACILLIN SODIUM/TAZOBACTAM 4.5 GM in NS (IVPB) 100 ML IV SCH ×3 (01:41→18:00)
[2016-12-04 06:24] LABS: ANION GAP 7 MMOL/L (5-14); BLOOD UREA NITROGEN 6 MG/DL (7-18); BUN/CREATININE RATIO 8; CALCIUM 7.1 MG/DL (8.5-10.1); CARBON DIOXIDE 23 MMOL/L (21-32); CHLORIDE 108 MMOL/L (98-107); GFR ESTIMATED > 60; GLUCOSE 63 MG/DL (70-105); POTASSIUM 3.3 MMOL/L (3.6-5.0); SODIUM 138 MMOL/L (135-145)
[2016-12-04] MEDS: LEVOTHYROXINE 125 MCG (LEVOTHROID) TABLET PO SCH (06:29)
[2016-12-04] MEDS: PANTOPRAZOLE 40 MG (PROTONIX) TAB PO SCH (06:29)
[2016-12-04] MEDS: KCL 10 MEQ TAB (MICRO K) PO SCH ×2 (08:13→18:26)
[2016-12-04] MEDS: RT-ALBUTEROL/IPRATROPIUM 3 ML (DUONEB) VIAL INH SCH ×4 (08:24→19:20)
[2016-12-04] MEDS: FUROSEMIDE 40 MG/4 ML INJ (LASIX) IVP SCH (09:11)
[2016-12-04] MEDS: SACUBITRIL/VALSARTAN 24/26 MG (ENTRESTO) TABLET PO SCH ×2 (09:11→21:04)
[2016-12-04] MEDS: CARVEDILOL 3.125 MG (COREG) TABLET PO SCH ×2 (09:11→21:04)
[2016-12-04] MEDS: ASPIRIN E.C. 81 MG (ECOTRIN) TAB PO SCH (09:12)
[2016-12-04] MEDS: metroNIDAZOLE 500 MG (FLAGYL) TAB PO SCH ×4 (09:12→21:04)
[2016-12-04] MEDS: fluCOnazole (DIFLUCAN) 100 MG TAB PO SCH (09:12)
[2016-12-04] MEDS: MENTHOL/ZINC OXIDE (CALMOSEPTINE) 113 GM TUBE TOP SCH ×3 (09:13→21:04)
[2016-12-04] MEDS: CHOLESTYRAMINE 4 GM (QUESTRAN LITE, PREVALITE) PKT PO SCH ×5 (10:39→22:00)
[2016-12-04] MEDS ORDERED: LIDOCAINE 1% INJ 20 ML (XYLOCAINE) VIAL ONE (11:42)
[2016-12-04] MEDS ORDERED: MIDAZOLAM 5 MG/5 ML (VERSED) VIAL ONE (11:42)
[2016-12-04] MEDS ORDERED: fentaNYL INJECTION 100 MCG/2 ML AMP ONE (11:42)
[2016-12-04] MEDS ORDERED: NS IV 1000 ML 1,000 ML ONE (11:43)
[2016-12-04] MEDS ORDERED: HEParin (CATH LAB) 2,000 ML IV ONE (11:43)
[2016-12-04] MEDS ORDERED: NS IV 1000 ML 1,000 ML IV SCH (11:45)
--- NOTE | 2016-12-04 12:18 | Cardiology Progress Note ---
Subjective Subjective/Events-last exam Patient is feeling better, still having ulcer on the right leg, no chest pain, diarrhea is better Review of Systems General: No Chills, No Night Sweats, No Fatigue, No Malaise, No Appetite, No Other HEENT: No Head Aches, No Visual Changes, No Eye Pain, No Ear Pain, No Dysphasia , No Sinus Congestion, No Post Nasal Drip, No Sore Throat, No Other Pulmonary: No Dyspnea, No Cough, No Pleuritic Chest Pain, No Other Cardiovascular: No: Chest Pain, Edema, Lt Headedness, Orthopnea, Other, Palpitations, Paroxysmal Noc. Dyspnea Objective-Cardiology Exam Last Set of Vital Signs Vital Signs 12/04/16 12/04/16 05:00 12:03 Temp 97.5 Pulse 80 Resp 20 B/P 109/65 Pulse Ox 98 O2 Delivery Nasal Cannula O2 Flow Rate 2.00 Capillary Refill : I&O Intake and Output 12/04/16 00:00 Intake Total 1040 ml Output Total 2300 ml Balance -1260 ml Intake Oral 840 ml IV Total 200 ml Output Urine Total 2300 ml # Bowel Movements 1 General: Alert, Oriented X3, Cooperative HEENT: Atraumatic, PERRLA Neck: Supple, No JVD, No Thyromegaly Lungs: Clear to Auscultation, Normal Air Movement Heart: Regular Rate, Normal S1, Normal S2, No Murmurs, Gallops Abdomen: Normal Bowel Sounds, Soft, No Tenderness, No Hepatosplenomegaly, No Masses Extremities: No Clubbing, No Cyanosis, No Edema, Normal Pulses, No Tenderness/ Swelling Skin: No Rashes, No Breakdown, No Significant Lesion Neuro: Normal Speech, Strength at 5/5 X4 Ext, Normal Tone, Sensation Intact Psych/Mental Status: Mental Status NL, Mood NL Results Lab Laboratory Tests 12/03/16 12:40 12/04/16 05:40 A/P-Cardiology Admission Diagnosis peripheral arterial disease Coronary artery disease nonhealing foot ulcer Diarrhea Assessment/Plan Sepsis improving, still having diarrhea but reporting improvement. Receiving antibiotic and managed by primary care physician Oral thrush, mild dysphagia, receiving antibiotic Diarrhea, C. difficile colitis. Managed by primary care physician Short of breath, better at this time, continue to monitor Congestive heart failure, nonischemic cardiomyopathy, acute on chronic left ventricular systolic dysfunction with ejection fraction 20 percent, was on beta blockers and Edvin inhibitors as an outpatient, currently on hold due to hypotension, I will restart beta blockers if possible and monitor blood pressure , I will add Entresto and monitor LifeVest as a primary prevention for sudden , may hold it at this time, patient is complaining about being uncomfortable, he is on telemetry in the intensive care unit. Status post anoxic encephalopathy and pneumonia and sepsis early in October, improved with aggressive therapy. Back to his baseline. Status post acute renal failure. Improved, continue to monitor renal function closely. Nonhealing foot ulcers bilaterally, on the right side is on the outside portion of the ankle, SEAMUS on the right is 0.57, on the left side the ulcer is on the inner part of the foot, SEAMUS 0.32, angiogram showed SFA disease bilaterally, trifurcation was not seen on the right side due to knee replacement. Planning for angiogram of the lower extremities possible intervention Hypertension, back to baseline, continue to monitor BP Hyperlipidemia, restart meds and monitor. Hyperthyroidism, history of hypothyroidism and Levothroid, managed by primary care physician, evaluate TSH History of pulmonary hypertension, continue to monitor History of rheumatoid arthritis. COPD, managed and followed by primary care physician Tobaccoism, patient has stopped smoking after the last admission. Encouraged to continue with smoking cessation History of chronic narcotic use, urine drug screen is positive for opioids TORY HALL MD Dec 04, 2016 12:18
--- NOTE | 2016-12-04 12:19 | Cardiac Procedure Note-CS/ASA ---
Pre-Procedure Note Pre-Op Procedure Note H&P Reviewed The H&P was reviewed, patient examined and no changes noted. Date H&P Reviewed: Dec 04, 2016 Time H&P Reviewed: 12:18 Conscious Sedation Pre-Proced Time Reviewed: 12:18 ASA Class: 3 Airway Mallampati Classification: ([place] appropriate class) I. II. III, IV Lungs Heart ASA score ASA 1: a normal healthy patient ASA 2: a patient with a mild systemic disease (mid diabetes, controlled hypertension, obesity x ASA 3: a patient with a severe systemic disease that limits activity (angina , COPD, prior Myocardial infarction) ASA 4: a patient with an incapacitating disease that is a constant threat to life (CHF, renal failure) ASA 5: a moribund patient not expected to survive 24 hrs. (ruptured aneurysm) ASA 6: a declared brain patient whose organs are being harvested. For emergent operations, add the letter E after the classification Grade 3 Sedation Plan: Analgesia, Amnesia, Plan communicated to team members, Discussed options with patient/fam, Discussed risks with patient/fam Note The patient is an appropriate candidate to undergo the planned procedure, sedation, and anesthesia. The patient immediately re-assessed prior to indication. TORY HALL MD Dec 04, 2016 12:19
[2016-12-04] MEDS ORDERED: PATIENT MAY USE OWN MEDS, ALL PO SCH (13:15)
[2016-12-04 15:52] LABS: MEAN PLATELET VOLUME 9.3 FL (7.4-10.4); RED BLOOD COUNT 3.37 10^6/uL (4.35-5.85); RED CELL DISTRIBUTION WIDTH 16.4 % (10.0-14.5); WHITE BLOOD COUNT 8.5 10^3/uL (4.3-11.0)
[2016-12-04 16:04] LABS: INR 1.5 (0.8-1.4); PROTHROMBIN TIME PATIENT 17.4 SEC (12.2-14.7)
[2016-12-04 16:08] LABS: ANION GAP 6 MMOL/L (5-14); BLOOD UREA NITROGEN 6 MG/DL (7-18); BUN/CREATININE RATIO 8; CALCIUM 6.8 MG/DL (8.5-10.1); CARBON DIOXIDE 23 MMOL/L (21-32); CHLORIDE 108 MMOL/L (98-107); CREATININE SERUM 0.78 MG/DL (0.60-1.30); GFR ESTIMATED > 60; POTASSIUM 3.1 MMOL/L (3.6-5.0); SODIUM 137 MMOL/L (135-145)
[2016-12-04 16:21] LABS: GLUCOSE 60 MG/DL (70-105)
[2016-12-04] MEDS: NS IV 1000 ML 1,000 ML IV SCH ×2 (18:03→23:06)
[2016-12-04] MEDS: ATORVASTATIN 40 MG (LIPITOR) TABLET PO SCH (21:03)
[2016-12-05] MEDS: PIPERACILLIN SODIUM/TAZOBACTAM 4.5 GM in NS (IVPB) 100 ML IV SCH ×3 (01:37→18:21)
[2016-12-05] MEDS: fentaNYL INJECTION 100 MCG/2 ML AMP IVP PRN ×8 (03:30→21:54)
[2016-12-05] MEDS: PANTOPRAZOLE 40 MG (PROTONIX) TAB PO SCH (05:37)
[2016-12-05] MEDS: LEVOTHYROXINE 125 MCG (LEVOTHROID) TABLET PO SCH (05:37)
[2016-12-05] MEDS: NS IV 1000 ML 1,000 ML IV SCH ×2 (05:39→18:20)
[2016-12-05 06:15] VITALS: BP 104/67
[2016-12-05] MEDS: RT-ALBUTEROL/IPRATROPIUM 3 ML (DUONEB) VIAL INH SCH ×4 (07:00→20:06)
--- NOTE | 2016-12-05 07:47 | CARDIAC CATHETERIZATION ---
PROCEDURE PHYSICIAN: TORY HALL DATE OF PROCEDURE: 12/04/2016 PERIPHERAL ANGIOGRAM: REFERRING PHYSICIAN: Dr. Arango. BRIEF HISTORY: Mr. Shaffer is a 71-year-old gentleman with peripheral arterial disease, abnormal SEAMUS. He has unhealing foot ulcers. He was scheduled for peripheral angiogram, possible angioplasty. Previously had a cardiac catheterization with elevated troponin and I evaluated runoff of the lower extremity suggested of a lesion on the left SFA. The right SFA has slow flow with questionable disease below the knee. The patient reported improvement of the wound ulcer, on the foot ulcer on the left lower extremity, still having an ulcer on the right lower extremity. His kidney functions are better. I decided to proceed with evaluation of his peripheral arterial disease. PROCEDURE NOTE: After explaining the procedure to the patient, all pros and cons were explained. All questions were answered. The patient was placed on the cardiac catheterization laboratory. The left groin was prepped in a sterile fashion. Local anesthesia applied to the left groin. 6-Mongolian sheath was placed in the left femoral artery. Runoff of the left lower extremity was done through the sheath. Then I advanced a pigtail catheter over a stroke wire and evaluated the abdominal aorta and the bifurcation. Then I reevaluate the abdominal aorta with run through the right lower extremity. Evaluated the right lower extremity then exchanged the pigtail catheter over a short Storq wire into a straight catheter placed in the popliteal artery and 3 sets of angiogram were done. One at the knee level of the right lower extremity, then at the mid leg, then at level at the foot level. At the end of the procedure, I flushed the straight catheter and evaluated pressure pullback up to the abdominal aorta then pulled down from the abdominal aorta to the left common femoral artery. At the end of the procedure, sheath was removed. Mynx device deployed. Total contrast used was 40 mL. Total radiation was 116 mGy. ABDOMINAL AORTOGRAM: 1. Abdominal aortogram evaluation showed infrarenal abdominal aortic aneurysm, small in size with moderate atherosclerotic disease in the common iliac artery. Left lower extremity runoff was done through the sheath, which showed moderate disease, mid SFA has a lesion that I put to be 50 to 60%, nonobstructive disease. There is occlusion of the anterior tibial artery below the knee. 2. Right lower extremity runoff: The right lower extremity runoff done in multiple stages, moderate disease was noted in the SFA. Below the knee there is mild disease, nonobstructive disease. IN CONCLUSION: 1. Small infrarenal abdominal aortic aneurysm. 2. Moderate atherosclerotic disease on the left lower extremity, the anterior tibial artery is severely diseased on the left lower extremity but the ulcer on the left lower extremity has healed. Medical therapy is recommended. 3. Moderate disease of the right lower extremity with good flow, with three-vessel flow down to the foot. There is no significant pressure gradient during pullback from the popliteal to the abdominal aorta. The maximum gradient was about 10 mmHg. 4. Medical therapy is recommended. No intervention is needed. Job ID: [id number] Dictated Date: 12/04/2016 13:13:59 [employer] Teacher Date: 12/05/2016 07:36:39 / meño
--- NOTE | 2016-12-05 08:40 | Cardiology Progress Note ---
Subjective Subjective/Events-last exam Patient in bed. Complaining of gas pain. Denies any CP or dyspnea. Review of Systems General: No Night Sweats, No Fatigue, No Malaise HEENT: No Visual Changes, No Dysphasia, No Sore Throat Pulmonary: No Dyspnea, No Cough, No Pleuritic Chest Pain Cardiovascular: No: Chest Pain, Edema, Palpitations, Paroxysmal Noc. Dyspnea Gastrointestinal: : Abdominal Pain: DiarrheaNo: Constipation, Nausea, Vomiting Genitourinary: No Dysuria, No Frequency, No Hematuria Musculoskeletal: No: back pain, neck pain Neurological: : WeaknessNo: Change in speech, Confusion, Numbness Objective-Cardiology Exam Last Set of Vital Signs Vital Signs 12/05/16 12/05/16 06:15 07:53 Temp 98.0 Pulse 79 Resp 20 B/P 104/67 Pulse Ox 99 O2 Delivery Nasal Cannula O2 Flow Rate 2.00 Capillary Refill : Less Than 3 Seconds I&O Intake and Output 12/05/16 00:00 Intake Total 1282 ml Output Total 1950 ml Balance -668 ml Intake Oral 1082 ml IV Total 200 ml Output Urine Total 1950 ml # Bowel Movements 1 General: Alert, Oriented X3, Cooperative HEENT: Atraumatic, PERRLA Neck: Supple, No JVD, No Thyromegaly Lungs: Clear to Auscultation, Normal Air Movement Heart: Regular Rate, Normal S1, Normal S2, No Murmurs, Gallops Abdomen: Normal Bowel Sounds, Soft, No Tenderness, No Hepatosplenomegaly, No Masses Extremities: No Clubbing, No Cyanosis, No Edema, Normal Pulses, No Tenderness/ Swelling Skin: No Rashes, No Breakdown, No Significant Lesion Neuro: Normal Speech, Strength at 5/5 X4 Ext, Normal Tone, Sensation Intact Psych/Mental Status: Mental Status NL, Mood NL Results Lab Laboratory Tests 12/04/16 15:45 A/P-Cardiology Admission Diagnosis peripheral arterial disease Coronary artery disease nonhealing foot ulcer Diarrhea Assessment/Plan Sepsis improving, still having diarrhea but reporting improvement. Receiving antibiotic and managed by primary care physician Oral thrush, mild dysphagia, receiving antibiotic Diarrhea, C. difficile colitis. Managed by primary care physician Short of breath, better at this time, continue to monitor Congestive heart failure, nonischemic cardiomyopathy, acute on chronic left ventricular systolic dysfunction with ejection fraction 20 percent, was on beta blockers and Edvin inhibitors as an outpatient. Currently on beta gurpreet and Entresto. Tolerating medication well. Continue to monitor. LifeVest as a primary prevention for sudden , may hold it at this time, patient is complaining about being uncomfortable. Continue to monitor telemetry. Status post anoxic encephalopathy and pneumonia and sepsis early in October, improved with aggressive therapy. Back to his baseline. Status post acute renal failure. Improved, continue to monitor renal function closely. Peripheral vascular disease with history of nonhealing wounds bilaterally. Peripheral angiogram done 12/04/16 revealed moderate atherosclerotic disease on the left lower extremity, the anterior tibial artery is severely diseased on the left lower extremity but the ulcer on the left lower extremity has healed. Medical therapy is recommended. Moderate disease of the right lower extremity with good flow, with three-vessel flow down to the foot. Continue medical management at this time and continue to monitor. Small infrarenal abdominal aortic aneurysm noted during peripheral angiogram. Will continue to follow as outpatient. Hypertension, back to baseline, continue to monitor BP Hyperlipidemia, continue to monitor. Hyperthyroidism, history of hypothyroidism and Levothroid, managed by primary care physician History of pulmonary hypertension, continue to monitor History of rheumatoid arthritis. COPD, managed and followed by primary care physician Tobaccoism, patient has stopped smoking after the last admission. Encouraged to continue with smoking cessation History of chronic narcotic use, urine drug screen is positive for opioids FATUMA GARCES Dec 05, 2016 08:40
[2016-12-05] MEDS: FUROSEMIDE 40 MG/4 ML INJ (LASIX) IVP SCH (09:05)
[2016-12-05] MEDS: ASPIRIN E.C. 81 MG (ECOTRIN) TAB PO SCH (09:06)
[2016-12-05] MEDS: CARVEDILOL 3.125 MG (COREG) TABLET PO SCH ×2 (09:06→21:54)
[2016-12-05] MEDS: SACUBITRIL/VALSARTAN 24/26 MG (ENTRESTO) TABLET PO SCH ×2 (09:06→21:54)
[2016-12-05] MEDS: KCL 10 MEQ TAB (MICRO K) PO SCH ×2 (09:06→18:20)
[2016-12-05] MEDS: fluCOnazole (DIFLUCAN) 100 MG TAB PO SCH (09:06)
[2016-12-05] MEDS: CHOLESTYRAMINE 4 GM (QUESTRAN LITE, PREVALITE) PKT PO SCH ×2 (09:07→22:54)
[2016-12-05] MEDS: MENTHOL/ZINC OXIDE (CALMOSEPTINE) 113 GM TUBE TOP SCH ×3 (09:09→21:55)
--- NOTE | 2016-12-05 11:07 | Cardiology Progress Note ---
Subjective Subjective/Events-last exam patient is laying down in bed, still having some gas, no diarrhea. Groin is healing well. Review of Systems General: No Chills, No Night Sweats, No Fatigue, No Malaise, No Appetite, No Other HEENT: No Head Aches, No Visual Changes, No Eye Pain, No Ear Pain, No Dysphasia , No Sinus Congestion, No Post Nasal Drip, No Sore Throat, No Other Pulmonary: No Dyspnea, No Cough, No Pleuritic Chest Pain, No Other Cardiovascular: No: Chest Pain, Edema, Lt Headedness, Orthopnea, Other, Palpitations, Paroxysmal Noc. Dyspnea Objective-Cardiology Exam Last Set of Vital Signs Vital Signs 12/05/16 12/05/16 12/05/16 06:15 08:00 08:30 Temp 98.0 Pulse 79 Resp 20 B/P 104/67 Pulse Ox 99 O2 Delivery Room Air O2 Flow Rate 2.00 Capillary Refill : Less Than 3 Seconds I&O Intake and Output 12/05/16 00:00 Intake Total 1282 ml Output Total 1950 ml Balance -668 ml Intake Oral 1082 ml IV Total 200 ml Output Urine Total 1950 ml # Bowel Movements 1 General: Alert, Oriented X3, Cooperative HEENT: Atraumatic, PERRLA Neck: Supple, No JVD, No Thyromegaly Lungs: Clear to Auscultation, Normal Air Movement Heart: Regular Rate, Normal S1, Normal S2, No Murmurs, Gallops Abdomen: Normal Bowel Sounds, Soft, No Tenderness, No Hepatosplenomegaly, No Masses Extremities: No Clubbing, No Cyanosis, No Edema, Normal Pulses, No Tenderness/ Swelling Skin: No Rashes, No Breakdown, No Significant Lesion Neuro: Normal Speech, Strength at 5/5 X4 Ext, Normal Tone, Sensation Intact Psych/Mental Status: Mental Status NL, Mood NL Results Lab Laboratory Tests 12/04/16 15:45 A/P-Cardiology Admission Diagnosis peripheral arterial disease Coronary artery disease nonhealing foot ulcer Diarrhea Assessment/Plan Sepsis, improved, feeling better. Asking to go home. Oral thrush, mild dysphagia, Reporting improvement. Managed by primary care physician Diarrhea, C. difficile colitis. Managed by primary care physician Short of breath, better at this time, continue to monitor Congestive heart failure, nonischemic cardiomyopathy, acute on chronic left ventricular systolic dysfunction with ejection fraction 20 percent, was on beta blockers and Edvin inhibitors as an outpatient. Currently on beta gurpreet and Entresto. Tolerating medication well. I will repeat echocardiogram today LifeVest as a primary prevention for sudden , may hold it at this time, patient is complaining about being uncomfortable. Continue to monitor telemetry. Status post anoxic encephalopathy and pneumonia and sepsis early in October, improved with aggressive therapy. Back to his baseline. Status post acute renal failure. Improved, continue to monitor renal function closely. Peripheral vascular disease with history of nonhealing wounds bilaterally. Peripheral angiogram done 12/04/16 revealed moderate atherosclerotic disease on the left lower extremity, the anterior tibial artery is severely diseased on the left lower extremity but the ulcer on the left lower extremity has healed. Medical therapy is recommended. Moderate disease of the right lower extremity with good flow, with three-vessel flow down to the foot. Continue medical management at this time and continue to monitor. Small infrarenal abdominal aortic aneurysm noted during peripheral angiogram. Will continue to follow as outpatient. Hypertension, back to baseline, continue to monitor BP Hyperlipidemia, continue to monitor. Hyperthyroidism, history of hypothyroidism and Levothroid, managed by primary care physician History of pulmonary hypertension, continue to monitor History of rheumatoid arthritis. COPD, managed and followed by primary care physician Tobaccoism, patient has stopped smoking after the last admission. Encouraged to continue with smoking cessation History of chronic narcotic use, urine drug screen is positive for opioids TORY HALL MD Dec 05, 2016 11:07
[2016-12-05] MEDS ORDERED: KCL 20 MEQ TAB (K-DUR) PO NR (11:30)
[2016-12-05 17:29] VITALS: BP 124/73
--- NOTE | 2016-12-05 19:17 | ECHOCARDIOGRAPHY REPORT ---
PROCEDURE PHYSICIAN: TORY HALL DATE OF PROCEDURE: 12/05/2016 TWO DIMENSIONAL ECHOCARDIOGRAM REPORT PRIMARY PHYSICIAN: OTHER PHYSICIAN: REFERRING PHYSICIAN: Dr. Urbano ORDERING PHYSICIAN: INDICATION FOR THE PROCEDURE: Congestive heart failure. MEASUREMENTS DERIVED VALUES LV DIAMETER (LAX) NORMALS NORMALS Diastolic 4 (3.6-5.2) Eject. Fract. 50% (60%+/-6%) Systolic (2.3-3.9) Diastolic Vol. % Shortening (0.22-0.42) Systolic Vol. Aortic Root IVS THICKNESS Diastolic 1.2 (0.6-1.1) LVPW THICKNESS Diastolic 1.2 (0.6-1.1) LA DIAMETER Systolic 4.2 (2.1-3.7) FINDINGS: 1. Technical quality is good. 2. The left ventricle is normal in size with moderate left ventricular hypertrophy noted diffusely. Systolic function has improved. Estimated ejection fraction 50%. 3. The left atrium is mildly dilated. No clot or thrombus were seen within the left atrium. 4. The right atrium and right ventricle are normal in size. No clot or thrombus were seen within the right side. 5. Mitral valve is normal in morphology with mild mitral regurgitation noted by color Doppler flow. No mitral valve prolapse. No mitral valve stenosis. 6. Aortic valve is trileaflet with normal opening and closing pattern. No significant aortic stenosis or regurgitation was seen. 7. Tricuspid valve is normal in morphology with mild tricuspid regurgitation noted by color Doppler flow. Doppler across tricuspid valve estimated pulmonary artery pressure of 23+ right atrial pressure. 8. Pulmonic valve is functioning normally. 9. No pericardial effusion. CONCLUSION: 1. Mild to moderate left ventricular hypertrophy noted diffusely. Systolic function has improved. Estimated ejection fraction 50%. 2. Mildly dilated left atrium. 3. Mild mitral and tricuspid regurgitation. 4. Estimated pulmonary artery pressure of 30 mmHg. Job ID: [id number] Dictated Date: 12/05/2016 17:22:05 [employer] Date: 12/05/2016 19:12:49 / lex
[2016-12-05] MEDS: ATORVASTATIN 40 MG (LIPITOR) TABLET PO SCH (21:54)
[2016-12-05] MEDS: metroNIDAZOLE 500 MG (FLAGYL) TAB PO SCH (21:54)
[2016-12-06] VITALS: BP 111/61
[2016-12-06] MEDS: fentaNYL INJECTION 100 MCG/2 ML AMP IVP PRN ×6 (00:34→12:32)
[2016-12-06] MEDS: PIPERACILLIN SODIUM/TAZOBACTAM 4.5 GM in NS (IVPB) 100 ML IV SCH ×2 (01:44→09:07)
[2016-12-06 04:00] VITALS: BP 110/68
[2016-12-06] MEDS: NS IV 1000 ML 1,000 ML IV SCH (05:06)
[2016-12-06] MEDS: PANTOPRAZOLE 40 MG (PROTONIX) TAB PO SCH (05:46)
[2016-12-06] MEDS: LEVOTHYROXINE 125 MCG (LEVOTHROID) TABLET PO SCH (05:46)
[2016-12-06] MEDS: RT-ALBUTEROL/IPRATROPIUM 3 ML (DUONEB) VIAL INH SCH (07:11)
[2016-12-06 08:00] VITALS: BP 121/66
[2016-12-06] MEDS: KCL 10 MEQ TAB (MICRO K) PO SCH (08:02)
[2016-12-06] MEDS: CHOLESTYRAMINE 4 GM (QUESTRAN LITE, PREVALITE) PKT PO SCH (09:06)
[2016-12-06] MEDS: metroNIDAZOLE 500 MG (FLAGYL) TAB PO SCH ×2 (09:07→12:32)
[2016-12-06] MEDS: SACUBITRIL/VALSARTAN 24/26 MG (ENTRESTO) TABLET PO SCH (09:07)
[2016-12-06] MEDS: ASPIRIN E.C. 81 MG (ECOTRIN) TAB PO SCH (09:07)
[2016-12-06] MEDS: CARVEDILOL 3.125 MG (COREG) TABLET PO SCH (09:07)
[2016-12-06] MEDS: MENTHOL/ZINC OXIDE (CALMOSEPTINE) 113 GM TUBE TOP SCH ×2 (09:08→12:43)
--- NOTE | 2016-12-06 10:24 | Cardiology Progress Note ---
Subjective Subjective/Events-last exam Patient in bed. Continues to complain of gas pain, denies any diarrhea. Denies CP or dyspnea. Review of Systems General: No Night Sweats, No Fatigue, No Malaise HEENT: No Visual Changes, No Dysphasia Pulmonary: No Dyspnea, No Cough, No Pleuritic Chest Pain Cardiovascular: No: Chest Pain, Palpitations Gastrointestinal: No: Abdominal Pain, Nausea, Vomiting Genitourinary: No Dysuria, No Frequency Musculoskeletal: No: back pain, neck pain Neurological: No: Change in speech, Confusion, Numbness, Weakness Objective-Cardiology Exam Last Set of Vital Signs Vital Signs 12/06/16 12/06/16 12/06/16 12/06/16 12/06/16 04:00 07:00 07:20 08:00 10:12 Temp 97.9 Pulse 66 Resp 20 B/P 110/68 Pulse Ox 94 O2 Delivery Room Air O2 Flow Rate 3.00 Capillary Refill : Less Than 3 Seconds I&O Intake and Output 12/05/16 23:59 Intake Total 4512 ml Output Total 2800 ml Balance 1712 ml Intake Oral 2212 ml IV Total 2300 ml Output Urine Total 2800 ml # Bowel Movements 2 General: Alert, Oriented X3, Cooperative HEENT: Atraumatic, PERRLA Neck: Supple, No JVD, No Thyromegaly Lungs: Clear to Auscultation, Normal Air Movement Heart: Regular Rate, Normal S1, Normal S2, No Murmurs, Gallops Abdomen: Normal Bowel Sounds, Soft, No Tenderness, No Hepatosplenomegaly, No Masses Extremities: No Clubbing, No Cyanosis, No Edema, Normal Pulses, No Tenderness/ Swelling Skin: No Rashes, No Breakdown, No Significant Lesion Neuro: Normal Speech, Strength at 5/5 X4 Ext, Normal Tone, Sensation Intact Psych/Mental Status: Mental Status NL, Mood NL A/P-Cardiology Admission Diagnosis peripheral arterial disease Coronary artery disease nonhealing foot ulcer Diarrhea Assessment/Plan Sepsis, improved, feeling better. Asking to go home. Oral thrush, mild dysphagia, Reporting improvement. Managed by primary care physician Diarrhea, C. difficile colitis. Managed by primary care physician Short of breath, better at this time, continue to monitor Congestive heart failure, nonischemic cardiomyopathy, acute on chronic left ventricular systolic dysfunction with most recent ejection fraction improved to 50 percent. Maintained on beta gurpreet and Entresto. May discontinue Life Vest. Status post anoxic encephalopathy and pneumonia and sepsis early in October, improved with aggressive therapy. Back to his baseline. Status post acute renal failure. Improved, continue to monitor renal function closely. Peripheral vascular disease with history of nonhealing wounds bilaterally. Peripheral angiogram done 12/04/16 revealed moderate atherosclerotic disease on the left lower extremity, the anterior tibial artery is severely diseased on the left lower extremity but the ulcer on the left lower extremity has healed. Medical therapy is recommended. Moderate disease of the right lower extremity with good flow, with three-vessel flow down to the foot. Continue medical management at this time and continue to monitor. Small infrarenal abdominal aortic aneurysm noted during peripheral angiogram. Will continue to follow as outpatient. Hypertension, back to baseline, continue to monitor BP Hyperlipidemia, continue to monitor. Hyperthyroidism, history of hypothyroidism and Levothroid, managed by primary care physician History of pulmonary hypertension, continue to monitor History of rheumatoid arthritis. COPD, managed and followed by primary care physician Tobaccoism, patient has stopped smoking after the last admission. Encouraged to continue with smoking cessation History of chronic narcotic use, urine drug screen is positive for opioids FATUMA GARCES Dec 06, 2016 10:24
[2016-12-06] MEDS ORDERED: METR500T21 PO (10:52)
[2016-12-06] MEDS ORDERED: SACU1TAB PO (10:52)
[2016-12-06] MEDS ORDERED: LEVO125T PO (10:52)
[2016-12-06] MEDS ORDERED: CARV3.122 PO (10:53)
--- NOTE | 2016-12-06 10:57 | Discharge Inst-Skilled Nursing ---
Discharge Inst-Skilled NF Consult/Follow Up/Orders Follow Up Appt.: follow up with Dr. Garcia in [address] Grajeda in 2 weeks Skilled NF Admit to: [facility] Certification (SNF) I certify that SNF services are required to be given on an inpatient basis because of the above named patient's need for [facility] care on a continuing basis for the conditions(s) for which he/she was receiving inpatient hospital services prior to his/her transfer to the SNF. [facility] Facility Order: Nursing Services, Surgical Attendant-Evaluate & Treat, Physical Therapy-Evaluate & Treat Discharge Diet: No Restrictions Daily Activity as Tolerated: Yes New & Resume Previous Orders Flor Caraballo Dec 06, 2016 10:55 FLOR CARABALLO MD Dec 06, 2016 10:57 am
[2016-12-06 12:00] VITALS: BP 111/57
[2016-12-06 14:26] VITALS: BP 111/57
--- NOTE | 2016-12-29 09:43 | Cardiology Discharge Summary ---
Diagnosis/Chief Complaint Date of Admission Dec 02, 2016 at 12:29 Date of Discharge Dec 06, 2016 at 13:15 Admission Diagnosis peripheral arterial disease Coronary artery disease nonhealing foot ulcer Diarrhea Discharge Diagnosis sepsis Peripheral arterial disease Coronary artery disease C. difficile colitis Chief Complaint/HPI Chief Complaint/HPI Sepsis, improved, managed by hospitalist, asking to go home, discharged by Dr. Larios Oral thrush, mild dysphagia, Reporting improvement. Managed by primary care physician Diarrhea, C. difficile colitis. Managed by primary care physician Short of breath, better at this time, continue to monitor Congestive heart failure, nonischemic cardiomyopathy, acute on chronic left ventricular systolic dysfunction with most recent ejection fraction improved to 50 percent. Maintained on beta gurpreet and Entresto. May discontinue Life Vest. Status post anoxic encephalopathy and pneumonia and sepsis early in October, improved with aggressive therapy. Back to his baseline. Status post acute renal failure. Improved, continue to monitor renal function closely. Peripheral vascular disease with history of nonhealing wounds bilaterally. Peripheral angiogram done 12/04/16 revealed moderate atherosclerotic disease on the left lower extremity, the anterior tibial artery is severely diseased on the left lower extremity but the ulcer on the left lower extremity has healed. Medical therapy is recommended. Moderate disease of the right lower extremity with good flow, with three-vessel flow down to the foot. Continue medical management at this time and continue to monitor. Small infrarenal abdominal aortic aneurysm noted during peripheral angiogram. Will continue to follow as outpatient. Hypertension, back to baseline, continue to monitor BP Hyperlipidemia, continue to monitor. Hyperthyroidism, history of hypothyroidism and Levothroid, managed by primary care physician History of pulmonary hypertension, continue to monitor History of rheumatoid arthritis. COPD, managed and followed by primary care physician Tobaccoism, patient has stopped smoking after the last admission. Encouraged to continue with smoking cessation History of chronic narcotic use, urine drug screen is positive for opioids Discharge Summary Hospital Course Hospital Course Sepsis, improved, managed by hospitalist, asking to go home, discharged by Dr. Larios Oral thrush, mild dysphagia, Reporting improvement. Managed by primary care physician Diarrhea, C. difficile colitis. Managed by primary care physician Lenin of breath, better at this time, continue to monitor Congestive heart failure, nonischemic cardiomyopathy, acute on chronic left ventricular systolic dysfunction with most recent ejection fraction improved to 50 percent. Maintained on beta gurpreet and Entresto. May discontinue Life Vest. Status post anoxic encephalopathy and pneumonia and sepsis early in October, improved with aggressive therapy. Back to his baseline. Status post acute renal failure. Improved, continue to monitor renal function closely. Peripheral vascular disease with history of nonhealing wounds bilaterally. Peripheral angiogram done 12/04/16 revealed moderate atherosclerotic disease on the left lower extremity, the anterior tibial artery is severely diseased on the left lower extremity but the ulcer on the left lower extremity has healed. Medical therapy is recommended. Moderate disease of the right lower extremity with good flow, with three-vessel flow down to the foot. Continue medical management at this time and continue to monitor. Small infrarenal abdominal aortic aneurysm noted during peripheral angiogram. Will continue to follow as outpatient. Hypertension, back to baseline, continue to monitor BP Hyperlipidemia, continue to monitor. Hyperthyroidism, history of hypothyroidism and Levothroid, managed by primary care physician History of pulmonary hypertension, continue to monitor History of rheumatoid arthritis. COPD, managed and followed by primary care physician Tobaccoism, patient has stopped smoking after the last admission. Encouraged to continue with smoking cessation History of chronic narcotic use, urine drug screen is positive for opioids Procedures None. Discharge Physical Examination Allergies: Coded Allergies: Sulfa (Sulfonamide Antibiotics) (Unverified Allergy, Unknown, 11/07/16) General Appearance: Alert, Oriented X3, Cooperative, No Acute Distress HEENT: Atraumatic, PERRLA Respiratory: Clear to Auscultation, Normal Air Movement Cardiovascular: Regular Rate, Normal S1, Normal S2, No Murmurs Abdominal: No Tenderness, No Hepatosplenomegaly Extremities: No Clubbing, No Cyanosis, No Edema, Normal Pulses, No Tenderness/ Swelling Skin: No Rashes, No Breakdown, No Significant Lesion Neuro: Normal Speech, Reflexes 2+ Discharge Home Medications Reviewed and agree with Discharge Medication list on patient's Discharge Instruction sheet Instructions to Patient/Family Please see electonic discharge instructions given to patient. TORY HALL MD Dec 29, 2016 09:42
== END 2016-12-06 13:15 | DRG 190 ==
LOC: 4TH 12:29
PROVIDERS: ADMIT Internal Medicine; ATTEND Internal Medicine
PROC: B41D1ZZ Fluoroscopy of Aorta and Bilateral Lower Extremity Arteries using Low Osmolar Contrast (ICD-10-PCS; principal; 2016-12-04)
DX: J44.0 Chronic obstructive pulmonary disease with (acute) lower respiratory infection (principal); J15.5 Pneumonia due to Escherichia coli; I11.0 Hypertensive heart disease with heart failure; I50.23 Acute on chronic systolic (congestive) heart failure; I42.9 Cardiomyopathy, unspecified; A04.7 Enterocolitis due to Clostridium difficile; B37.0 Candidal stomatitis; I70.233 Atherosclerosis of native arteries of right leg with ulceration of ankle; I70.234 Atherosclerosis of native arteries of right leg with ulceration of heel and midfoot; L97.319 Non-pressure chronic ulcer of right ankle with unspecified severity; L97.429 Non-pressure chronic ulcer of left heel and midfoot with unspecified severity; E87.6 Hypokalemia; I25.10 Atherosclerotic heart disease of native coronary artery without angina pectoris; I27.2 Other secondary pulmonary hypertension; F17.210 Nicotine dependence, cigarettes, uncomplicated; M06.9 Rheumatoid arthritis, unspecified; F41.9 Anxiety disorder, unspecified; E78.00 Pure hypercholesterolemia, unspecified; E03.9 Hypothyroidism, unspecified; D64.9 Anemia, unspecified; K21.9 Gastro-esophageal reflux disease without esophagitis; M81.0 Age-related osteoporosis without current pathological fracture; R13.10 Dysphagia, unspecified; Z79.891 Long term (current) use of opiate analgesic
CPT/HCPCS: 36247; 36415; 75630; 75774; 80048; 80053; 85025; 85027; 85610; 85730; 93306; 94640; 94760

== ENCOUNTER 2016-12-14 14:21 | Inpatient (IN) | payer MEDICARE ==
[~2016-12-14] VITALS: Ht 175.3 cm; Wt 87.1 kg
[2016-12-14] VITALS (8 sets, daily range): BP systolic 82–132; BP diastolic 50–91
[~2016-12-14 14:21] MED LIST changes: +LEVO125T PO; +METR500T21 PO; +SACU1TAB PO
[2016-12-14] MEDS ORDERED: NS IV 1000 ML 2,000 ML ONE (14:42)
[2016-12-14] MEDS ORDERED: ACETAMINOPHEN 500 MG TAB (TYLENOL) PO PRN (14:45)
[2016-12-14] MEDS: NS IV 1000 ML 2,000 ML IV PRN (14:48)
[2016-12-14 14:51] LABS: BASOPHILS # (AUTO) 0.1 10^3/uL (0.0-0.1); BASOPHILS % (AUTO) 0 % (0-10); EOSINOPHILS % (AUTO) 0 % (0-10); LYMPHOCYTES # (AUTO) 2.7 X 10^3 (1.0-4.0); LYMPHOCYTES % (AUTO) 14 % (12-44); MEAN CORPUSCULAR HEMOGLOBIN 27 PG (25-34); MEAN CORPUSCULAR HGB CONC 32 G/DL (32-36); MEAN CORPUSCULAR VOLUME 86 FL (80-99); MEAN PLATELET VOLUME 9.2 FL (7.4-10.4); MONOCYTES # (AUTO) 1.9 X 10^3 (0.0-1.0); MONOCYTES % (AUTO) 10 % (0-12); NEUTROPHILS # (AUTO) 15.2 X 10^3 (1.8-7.8); NEUTROPHILS % (AUTO) 77 % (42-75); PLATELET COUNT 612 10^3/uL (130-400); RED BLOOD COUNT 3.52 10^6/uL (4.35-5.85); RED CELL DISTRIBUTION WIDTH 17.7 % (10.0-14.5); WHITE BLOOD COUNT 19.8 10^3/uL (4.3-11.0)
--- NOTE | 2016-12-14 14:51 | ED General ---
General Chief Complaint: Neurological Problems Stated Complaint: WEAKNESS Source of Information: Patient, Family Exam Limitations: No Limitations History of Present Illness Time Seen by Provider: 14:30 Initial Comments Here with report of weakness, fever, shortness of breath and confusion. Patient just got out of the jail after scheduled stay for pneumonia and heart failure. He got home today and was worsening. Family states that around days at the jail. He reports increased swelling of his feet, shortness of breath without nausea or vomiting. He had no strength to stand and had to be lifted from the car to the wheelchair and from the wheelchair to the bed. Apparently he was seen at his primary care provider's office today they noted that his white count was high and they thought he probably needed fluid. He was sent here for evaluation. Timing/Duration: 12-24 Hours Severity: Moderate, Severe Associated Systoms: No Chest Pain, Cough, Fever/Chills, No Nausea/Vomiting, Shortness of Air, Weakness Allergies and Home Medications Allergies Coded Allergies: Sulfa (Sulfonamide Antibiotics) (Unverified Allergy, Unknown, 11/07/16) Home Medications Aspirin 81 Mg Tabec, 81 MG PO DAILY, (Reported) Atorvastatin Calcium 40 Mg Tablet, 40 MG PO HS, (Reported) Carvedilol 3.125 Mg Tablet, 3.125 MG PO BID, #60 Prescribed by: FLOR CARABALLO on 12/06/16 1053 Hydrocodone/Acetaminophen 1 Each Tablet, 1 TAB PO Q6H PRN for PAIN, (Reported) Ipratropium/Albuterol Sulfate 3 Ml Ampul.neb, 3 ML IH Q6H PRN for SHORTNESS OF BREATH, (Reported) Levothyroxine Sodium 125 Mcg Tablet, 125 MCG PO DAILY@0630, #30 Prescribed by: FLOR CARABALLO on 12/06/16 1052 Metronidazole 500 Mg Tablet, 500 MG PO TID, #15 Prescribed by: FLOR CARABALLO on 12/06/16 1052 Pantoprazole Sod 40 Mg Tab, 40 MG PO DAILY, (Reported) Sacubitril/Valsartan 1 Each Tablet, 1 EACH PO BID, #60 Prescribed by: FLOR CARABALLO on 12/06/16 1052 Constitutional: see HPI, No chills, fever EENTM: no symptoms reported Respiratory: no symptoms reported Cardiovascular: no symptoms reported Gastrointestinal: abdominal pain (diffuse), No diarrhea, No nausea, No vomiting Genitourinary: No dysuria, No pain Musculoskeletal: see HPI, No muscle pain, muscle weakness Skin: no symptoms reported Psychiatric/Neurological: See HPI All Other Systems Reviewed Negative Unless Noted: Yes Past Dgowkdn-Bzvoep-Opiicj Hx Patient Social History Alcohol Use: Past History Recreational Drug Use: No (NONE FOR YEARS) Smoking Status: Former Smoker Type Used: Cigarettes Recent Hopitalizations: Yes Immunizations Up To Date Date of Pneumonia Vaccine: Mar 04, 2013 Seasonal Allergies Seasonal Allergies: No Surgeries HX Surgeries: Yes Surgeries: Cardiac, Orthopedic Respiratory Hx Respiratory Disorders: Yes Respiratory Disorders: Chronic Bronchitis, COPD, Emphysema Cardiovascular Hx Cardiac Disorders: Yes (CHF; PULMONARY HTN) Cardiac Disorders: Coronary Artery Disease, High Cholesterol, Hypertension, Peripheral Vascular Neurological Hx Neurological Disorders: No Reproductive System Hx Reproductive Disorders: No Sexually Transmitted Disease: Yes HIV/AIDS: No Genitourinary Hx Genitourinary Disorders: No Genitourinary Disorders: Renal Failure Gastrointestinal Hx Gastrointestinal Disorders: Yes Gastrointestinal Disorders: Gastroesophageal Reflux, Hemorrhoids Musculoskeletal Hx Musculoskeletal Disorders: Yes (RHEUMATOID ARTHRITIS/OSTEOPOROSIS; BILATERAL OLECRANON BURSITIS) Musculoskeletal Disorders: Osteoporosis, Arthritis, Rheumatoid Arthritis Endocrine Hx Endocrine Disorders: Yes Endocrine Disorders: Hypothyroidsim HEENT HX ENT Disorders: Yes (full set of dentures) Cancer Hx Cancer: No Psychosocial Hx Psychiatric Problems: Yes Behavioral Health Disorders: Anxiety Integumentary HX Skin/Integumentary Disorder: Yes (CHRONIC LEG WOUNDS ) Blood Transfusions Hx Blood Disorders: Yes (ANEMIA) Reviewed Nursing Assessment Reviewed/Agree w Nursing PMH: Yes Family Medical History Significant Family History: No Pertinent Family Hx Family Medial History: Patient reports no known family medical history. Physical Exam-Suspected Sepsis Physical Exam Vital Signs Vital Sign - Last 12Hours 12/14/16 14:21 Temp 102.6 Pulse 122 Resp 20 B/P (MAP) 106/92 Pulse Ox 98 O2 Delivery Nasal Cannula Capillary Refill : 3 seconds to hands and 4-5 seconds and feet General Appearance: WD/WN, Chronically ill, Mild Distress HEENT: PERRL/EOMI, Pharynx Normal Neck: Full Range of Motion, Normal Inspection, Non Tender, Supple Respiratory: Lungs Clear, Normal Breath Sounds Cardiovascular: Systolic Murmur, Tachycardia Gastrointestinal: Normal Bowel Sounds, Non Tender, Soft Back: Normal Inspection, No CVA Tenderness, No Vertebral Tenderness Extremity: Normal Range of Motion, Non Tender, Slow Capillary Refill (3 seconds bilateral hands and 4-5 seconds on bilateral feet.) Neurologic/Psychiatric: Alert, Other Comments Initial BP normal but repeat BP 77/56 and remains hypertensive after that and throughout my exam. Focused Exam Lactic Acid Level Laboratory Tests Test 12/14/16 14:25 Lactic Acid Level 2.23 MMOL/L (0.50-2.00) *H Lumen: triple Central Line Procedure: betadine prep, sterile drapes applied, sterile dressing applied Position: internal jugular (R) Anesthesia: Lidocaine Volume Anesthetic (ccs): 3 Complications: none Post Position: sutured, good blood return, position confirmed w/ CXR Progress Place via ultrasound guidance. No complications. Date of ETT Placement: Nov 10, 2016 Time of ETT Placement: 2219 Progress/Results/Core Measures Suspected Sepsis SIRS Temperature: Pulse: Respiratory Rate: Laboratory Tests 12/14/16 14:25: White Blood Count 19.8H Blood Pressure / Mean: Laboratory Tests 12/14/16 14:25: Creatinine 1.01, INR Comment 1.3, Platelet Count 612H, Total Bilirubin 0.4 Results/Orders Lab Results Laboratory Tests Test 12/14/16 14:25 Range/Units White Blood Count 19.8 H 4.3-11.0 10^3/uL Red Blood Count 3.52 L 4.35-5.85 10^6/uL Hemoglobin 9.6 L 13.3-17.7 G/DL Hematocrit 30 L 40-54 % Mean Corpuscular Volume 86 80-99 FL Mean Corpuscular Hemoglobin 27 25-34 PG Mean Corpuscular Hemoglobin Concent 32 32-36 G/DL Red Cell Distribution Width 17.7 H 10.0-14.5 % Platelet Count 612 H 130-400 10^3/uL Mean Platelet Volume 9.2 7.4-10.4 FL Neutrophils (%) (Auto) 77 H 42-75 % Lymphocytes (%) (Auto) 14 12-44 % Monocytes (%) (Auto) 10 0-12 % Eosinophils (%) (Auto) 0 0-10 % Basophils (%) (Auto) 0 0-10 % Neutrophils # (Auto) 15.2 H 1.8-7.8 X 10^3 Lymphocytes # (Auto) 2.7 1.0-4.0 X 10^3 Monocytes # (Auto) 1.9 H 0.0-1.0 X 10^3 Eosinophils # (Auto) 0.0 0.0-0.3 10^3/uL Basophils # (Auto) 0.1 0.0-0.1 10^3/uL Neutrophils % (Manual) 77 % Lymphocytes % (Manual) 14 % Monocytes % (Manual) 8 % Basophils % (Manual) 1 % Polychromasia SLIGHT Target Cells SLIGHT Elliptocytes SLIGHT Prothrombin Time 15.5 H 12.2-14.7 SEC INR Comment 1.3 0.8-1.4 Activated Partial Thromboplast Time 35 24-35 SEC Sodium Level 135 135-145 MMOL/L Potassium Level 3.9 3.6-5.0 MMOL/L Chloride Level 99 98-107 MMOL/L Carbon Dioxide Level 28 21-32 MMOL/L Anion Gap 8 5-14 MMOL/L Blood Urea Nitrogen 10 7-18 MG/DL Creatinine 1.01 0.60-1.30 MG/DL Estimat Glomerular Filtration Rate > 60 BUN/Creatinine Ratio 10 Glucose Level 74 70-105 MG/DL Lactic Acid Level 2.23 *H 0.50-2.00 MMOL/L Calcium Level 7.6 L 8.5-10.1 MG/DL Total Bilirubin 0.4 0.1-1.0 MG/DL Aspartate Amino Transf (AST/SGOT) 20 5-34 U/L Alanine Aminotransferase (ALT/SGPT) 11 0-55 U/L Alkaline Phosphatase 76 40-136 U/L Troponin I < 0.30 <0.30 NG/ML Total Protein 5.0 L 6.4-8.2 G/DL Albumin 2.0 L 3.2-4.5 G/DL My Orders Orders - DEAN LEWIS MD Cbc With Automated Diff (12/14/16 14:39) Comprehensive Metabolic Panel (12/14/16 14:39) Lactic Acid Analyzer (12/14/16 14:39) Blood Culture (12/14/16 14:39) Sputum Culture (12/14/16 14:39) Ua Culture If Indicated (12/14/16 14:39) Protime With Inr (12/14/16 14:39) Partial Thromboplastin Time (12/14/16 14:39) Chest 1 View, Ap/Pa Only (12/14/16 14:39) O2 (12/14/16 14:39) Acetaminophen Tablet (Tylenol Tablet) (12/14/16 14:45) Saline Lock/Iv-Start (12/14/16 14:39) Saline Lock/Iv-Start (12/14/16 14:39) Ekg Tracing (12/14/16 14:39) Troponin I (12/14/16 14:39) Ns Iv 1000 Ml (Sodium Chloride 0.9%) (12/14/16 14:45) Vital Signs Adult Sepsis Patie Q1HR (12/14/16 14:39) Remove Rings In Anticipation O (12/14/16 14:39) Ns Iv 1000 Ml (Sodium Chloride 0.9%) (12/14/16 14:42) Manual Differential (12/14/16 14:25) Norepinephrine (Levophed) (12/14/16 15:06) D5w 250 Ml (Ivpb) (Dextrose 5% Water Iv (12/14/16 15:07) Chest 1 View, Ap/Pa Only (12/14/16 15:32) Piperacillin Sodium/Tazobactam (Zosyn Vi (12/14/16 15:45) Piperacillin Sodium/Tazobactam (Zosyn Vi (12/14/16 15:39) Piperacillin Sodium/Tazobactam (Zosyn Vi (12/14/16 15:39) Ns (Ivpb) (Sodium Chloride 0.9% Ivpb Bag (12/14/16 15:40) Medications Given in ED Current Medications Medications Dose Ordered Sig/Janeth Route Start Time Stop Time Status Last Admin Dose Admin Acetaminophen 1,000 mg ONCE PRN PO 12/14/16 14:45 12/14/16 15:01 DC 12/14/16 15:01 1,000 MG Dextrose/Water 250 ml @ ud STK-MED ONCE IV 12/14/16 15:07 12/14/16 15:11 DC 12/14/16 15:44 250 MLS/HR Norepinephrine 4 mg STK-MED ONCE IV 12/14/16 15:06 12/14/16 15:10 DC 12/14/16 15:42 5 MG Piperacillin Sod/ Tazobactam Sod 4.5 gm ONCE ONCE IV 12/14/16 15:45 12/14/16 15:46 DC 12/14/16 15:45 4.5 GM Sodium Chloride 100 ml @ ud STK-MED ONCE .ROUTE 12/14/16 15:40 12/14/16 15:42 DC 12/14/16 15:46 4.5 MLS/HR Sodium Chloride 2,000 ml @ 1,000 mls/hr PRN PRN IV 12/14/16 14:45 12/14/16 14:48 1,000 MLS/HR Vital Signs/I&O Vital Sign - Last 12Hours 12/14/16 12/14/16 12/14/16 14:21 14:21 15:13 Temp 102.6 Pulse 122 92 Resp 20 20 B/P (MAP) 106/92 82/50 Pulse Ox 98 O2 Delivery Nasal Cannula Capillary Refill : Progress Note : Progress Note Seen and evaluated. IV, labs, EKG and chest x-ray ordered. UA, blood cultures and lactic acid ordered. Patient hypotensive after initial blood pressure assessment. We will initiate high-volume fluid resuscitation for concerns of sepsis due to fever, tachycardia and hypotension. Tylenol 1 g by mouth for fever. 30 mL/kg ordered of normal saline IV. I attest to focus assessment at initial exam. 41632: Blood pressure 87/49 with heart rate of 102 and O2 sat are 93 percent on 2 L via nasal cannula. High-volume fluid resuscitation ongoing. We will initiate central line Levophed to manage blood pressure. This was discussed with patient and family who agree with plan. Consent signed. 1537: Central line placed. Blood pressure 69/42 with O2 sat 100 percent. Levophed initiated at 5 mcg/kg/m. Post chest x-ray shows central line good position without pneumothorax. Guerra catheter placed. Zosyn 4.5 g IV initiated. 1605: I have spoken with Dr. Urbano who accepts patient for admission, inpatient status. I have spoken to Dr. Perales who accepts patient for consult. I have spoken to Dr. Davis who accepts patient for consult. Patient will be admitted to the ICU, inpatient status and critical condition. The critical nature the patient was discussed with patient and family who verbalize understanding. ECG Initial ECG Impression Date: Dec 14, 2016 Initial ECG Impression Time: 15:09 Initial ECG Rate: 95 Initial ECG Rhythm: Normal Sinus Initial ECG Comparisson: Unchanged Comment Sinus rhythm with normal axis. No evidence of ST elevation MO. Similar to previous of 11/29/16. Interpreted by me. Diagnostic Imaging Diagonstic Imaging: Xray Plain Films/CT/US/NM/MRI: chest Comments NAME: ALIX BOWEN [facility] REC#: [id number] PT STATUS: REG ER : 1945 PHYSICIAN: DEAN LEWIS MD ADMIT DATE: 12/14/16/ER Signed Date of Exam: 12/14/16 CHEST 1 VIEW, AP/PA ONLY INDICATION: Weakness and shortness of breath. TECHNIQUE: A PA chest was obtained at 2:57 PM. COMPARISON: 12/01/2016. FINDINGS: The heart is mildly enlarged. There are diffuse likely chronic increased interstitial markings which have shown slight improvement compared to the prior study. There is some infiltrate or atelectasis in the right base. There is no pneumothorax or pleural fluid. IMPRESSION: Mild cardiomegaly. Chronic appearing increased interstitial markings with mild improvement compared to the prior study. There is some mild infiltrate or atelectasis in the right lung base. Dictated by: Dictated on workstation # [id number] Dict: 12/14/16 1513 Trans: 12/14/16 [facility]3 [id number] Interpreted by: NELSON ELKINS MD Electronically signed by:NELSON ELKINS MD 12/14/16 1523 Departure Communication Time/Spoke to Admitting Phy: 15:55 Time/Spoke to Consulting Physi: 15:58 Impression Impression: Primary Impression: Septic shock Additional Impression: Right lower lobe pneumonia Qualified Codes: J18.1 - Lobar pneumonia, unspecified organism Disposition: ADMITTED INPATIENT Condition: Critical Decision to Admit Reason: Admit from ER (General) Decision to Admit/Date: Dec 14, 2016 Time/Decision to Admit Time: 15:55 Departure-Patient Inst. Referrals: ANDREINA MESA MD (PCP/Family) Primary Care Physician DEAN LEWIS MD Dec 14, 2016 14:51
[2016-12-14 14:59] LABS: INR 1.3 (0.8-1.4); PROTHROMBIN TIME PATIENT 15.5 SEC (12.2-14.7)
[2016-12-14] MEDS ORDERED: NOREPINEPHRINE 4 MG/4 ML (LEVOPHED) AMP IV ONE (15:06)
[2016-12-14 15:07] LABS: ALANINE AMINOTRANSFERASE 11 U/L (0-55); ANION GAP 8 MMOL/L (5-14); ASPARTATE AMINO TRANSFERASE 20 U/L (5-34); BILIRUBIN,TOTAL 0.4 MG/DL (0.1-1.0); BLOOD UREA NITROGEN 10 MG/DL (7-18); BUN/CREATININE RATIO 10; CALCIUM 7.6 MG/DL (8.5-10.1); CARBON DIOXIDE 28 MMOL/L (21-32); CHLORIDE 99 MMOL/L (98-107); CREATININE SERUM 1.01 MG/DL (0.60-1.30); GFR ESTIMATED > 60; GLUCOSE 74 MG/DL (70-105); POTASSIUM 3.9 MMOL/L (3.6-5.0); SODIUM 135 MMOL/L (135-145)
[2016-12-14] MEDS ORDERED: D5W 250 ML (IVPB) 250 ML IV ONE (15:07)
[2016-12-14 15:10] LABS: BASOPHILS % (MANUAL) 1 %; LYMPHOCYTES % (MANUAL) 14 %; NEUTROPHILS % (MANUAL) 77 %
[2016-12-14 15:11] LABS: POLYCHROMASIA SLIGHT; TARGET CELLS SLIGHT
[2016-12-14 15:13] LABS: TROPONIN I < 0.30 NG/ML (<0.30)
--- NOTE | 2016-12-14 15:16 | Diagnostic Imaging Report ---
INDICATION: Weakness and shortness of breath. TECHNIQUE: A PA chest was obtained at 2:57 PM. COMPARISON: 12/01/2016. FINDINGS: The heart is mildly enlarged. There are diffuse likely chronic increased interstitial markings which have shown slight improvement compared to the prior study. There is some infiltrate or atelectasis in the right base. There is no pneumothorax or pleural fluid. IMPRESSION: Mild cardiomegaly. Chronic appearing increased interstitial markings with mild improvement compared to the prior study. There is some mild infiltrate or atelectasis in the right lung base. Dictated by: Dictated on workstation # [id number]
[2016-12-14] MEDS ORDERED: PIPERACILLIN/TAZO 4.5 GM VIAL (ZOSYN) IV ONE ×3 (15:39→15:45)
[2016-12-14] MEDS ORDERED: NS (IVPB) 100 ML ONE (15:40)
--- NOTE | 2016-12-14 15:52 | Diagnostic Imaging Report ---
Portable upright radiograph of the chest. INDICATION: Central line placement. FINDINGS: There is a right IJ line with the tip at the mid SVC level. The left lung perihilar infiltrates appear worse compared to a prior exam obtained one hour earlier. The right lung demonstrate background interstitial thickening likely chronic. Heart size is normal. No significant effusion or pneumothorax. IMPRESSION: Worsening left perihilar infiltrates. Dictated by: Dictated on workstation # [id number]
[2016-12-14 16:17] LABS: BILIRUBIN,URINE 1+ (NEGATIVE); KETONES,URINE NEGATIVE (NEGATIVE); LEUKOCYTE ESTERASE ,URINE 1+ (NEGATIVE); NITRITE,URINE NEGATIVE (NEGATIVE); PH,URINE 5 (5-9); PROTEIN,URINE 1+ (NEGATIVE); UROBILINOGEN,URINE NORMAL (NORMAL)
[2016-12-14] MEDS ORDERED: NS 100 ML (IVPB) BAG IV ONE (16:45)
[2016-12-14] MEDS ORDERED: IOHEXOL 350 MG/ML 100 ML (OMNIPAQUE 350) VIAL IV ONE (16:45)
--- NOTE | 2016-12-14 17:05 | Consultation-Cardiology ---
HPI-Cardiology Cardiology Consultation Date of Consultation 12/14/16 Date of Admission Indication: Sepsis HPI 71 years old gentleman with multiple hospitalization, discharged recently from the hospital, I saw him recently in the office. He started feeling tired and having no energy in addition to abdominal pain which has been worsening. Denied any diarrhea or constipation, denied any chest pain or palpitation, has chronic pedal edema. Patient was complaining of increasing fatigue and loss of energy, came into the emergency room and noted to be hypotensive, had elevated lactic acid. Denied any cough or sputum. Has been having fever Home Medications & Allergies Allergies: Coded Allergies: Sulfa (Sulfonamide Antibiotics) (Unverified Allergy, Unknown, 11/07/16) Home Medication List Reviewed: Yes ZRJ-Ynhkdu-Sdgfso Hx Patient Social History Alcohol Use: Past History Recreational Drug Use: No (NONE FOR YEARS) Smoking Status: Former Smoker Type Used: Cigarettes Recent Foreign Travel: No Recent Infectious Disease Expo: No Recent Hopitalizations: Yes Immunizations Up To Date Date of Pneumonia Vaccine: Mar 04, 2013 Past Medical History Past medical history as discussed below Family Medical History Significant Family History: No Pertinent Family Hx Family Medical Hx Noncontributory to his current condition Family History: Patient reports no known family medical history. Constitutional: see HPI, fever, malaise, weakness EENTM: no symptoms reported, see HPI Respiratory: see HPI, dyspnea on exertion Cardiovascular: see HPI, No chest pain, edema, No Hx of Intervention, No palpitations, No syncope, No vascular heart diseas, No other Gastrointestinal: RLQ, LLQ, see HPI Genitourinary: see HPI, decreased output Musculoskeletal: see HPI, joint pain, muscle pain, muscle weakness Skin: see HPI Psychiatric/Neurological: No Symptoms Reported, See HPI Reviewed Test Results Reviewed Test Results Lab Laboratory Tests Test 12/14/16 14:25 12/14/16 15:50 12/14/16 16:10 Range/Units White Blood Count 19.8 H 4.3-11.0 10^3/uL Red Blood Count 3.52 L 4.35-5.85 10^6/uL Hemoglobin 9.6 L 13.3-17.7 G/DL Hematocrit 30 L 40-54 % Mean Corpuscular Volume 86 80-99 FL Mean Corpuscular Hemoglobin 27 25-34 PG Mean Corpuscular Hemoglobin Concent 32 32-36 G/DL Red Cell Distribution Width 17.7 H 10.0-14.5 % Platelet Count 612 H 130-400 10^3/uL Mean Platelet Volume 9.2 7.4-10.4 FL Neutrophils (%) (Auto) 77 H 42-75 % Lymphocytes (%) (Auto) 14 12-44 % Monocytes (%) (Auto) 10 0-12 % Eosinophils (%) (Auto) 0 0-10 % Basophils (%) (Auto) 0 0-10 % Neutrophils # (Auto) 15.2 H 1.8-7.8 X 10^3 Lymphocytes # (Auto) 2.7 1.0-4.0 X 10^3 Monocytes # (Auto) 1.9 H 0.0-1.0 X 10^3 Eosinophils # (Auto) 0.0 0.0-0.3 10^3/uL Basophils # (Auto) 0.1 0.0-0.1 10^3/uL Neutrophils % (Manual) 77 % Lymphocytes % (Manual) 14 % Monocytes % (Manual) 8 % Basophils % (Manual) 1 % Polychromasia SLIGHT Target Cells SLIGHT Elliptocytes SLIGHT Prothrombin Time 15.5 H 12.2-14.7 SEC INR Comment 1.3 0.8-1.4 Activated Partial Thromboplast Time 35 24-35 SEC Sodium Level 135 135-145 MMOL/L Potassium Level 3.9 3.6-5.0 MMOL/L Chloride Level 99 98-107 MMOL/L Carbon Dioxide Level 28 21-32 MMOL/L Anion Gap 8 5-14 MMOL/L Blood Urea Nitrogen 10 7-18 MG/DL Creatinine 1.01 0.60-1.30 MG/DL Estimat Glomerular Filtration Rate > 60 BUN/Creatinine Ratio 10 Glucose Level 74 70-105 MG/DL Lactic Acid Level 2.23 *H 0.90 0.50-2.00 MMOL/L Calcium Level 7.6 L 8.5-10.1 MG/DL Total Bilirubin 0.4 0.1-1.0 MG/DL Aspartate Amino Transf (AST/SGOT) 20 5-34 U/L Alanine Aminotransferase (ALT/SGPT) 11 0-55 U/L Alkaline Phosphatase 76 40-136 U/L Troponin I < 0.30 <0.30 NG/ML Total Protein 5.0 L 6.4-8.2 G/DL Albumin 2.0 L 3.2-4.5 G/DL Urine Color YELLOW Urine Clarity CLEAR Urine pH 5 5-9 Urine Specific [place] 1.020 1.016-1.022 Urine Protein 1+ H NEGATIVE Urine Glucose (UA) NEGATIVE NEGATIVE Urine Ketones NEGATIVE NEGATIVE Urine Nitrite NEGATIVE NEGATIVE Urine Bilirubin 1+ H NEGATIVE Urine Urobilinogen NORMAL NORMAL MG/DL Urine Leukocyte Esterase 1+ H NEGATIVE Urine RBC (Auto) 1+ H NEGATIVE Urine RBC 0-2 /HPF Urine WBC 2-5 /HPF Urine Crystals PRESENT H /LPF Urine Amorphous Sediment LARGE SHAUN URATES H /LPF Urine Bacteria FEW H /HPF Urine Casts PRESENT /LPF Urine Hyaline Casts 10-25 H /LPF Urine Mucus NEGATIVE /LPF Urine Culture Indicated YES Physical Exam Vital Signs Vital Sign - Last 12Hours 12/14/16 14:21 Temp 102.6 Pulse 122 Resp 20 B/P (MAP) 106/92 Pulse Ox 98 O2 Delivery Nasal Cannula Capillary Refill : Less Than 3 Seconds General Appearance: WD/WN, Moderate Distress Eyes: Bilateral Eye EOMI, Bilateral Eye Normal Inspection, Bilateral Eye PERRL HEENT: PERRL/EOMI, TMs Normal, Normal ENT Inspection, Pharynx Normal Neck: Full Range of Motion, Normal Inspection, Non Tender, Supple, Carotid Bruit Respiratory: Chest Non Tender, Lungs Clear, Normal Breath Sounds, No Accessory Muscle Use, No Respiratory Distress Cardiovascular: Regular Rate, Rhythm, No Edema, No Gallop, No JVD, Normal Peripheral Pulses, Systolic Murmur Gastrointestinal: Normal Bowel Sounds, Distended, Guarding, Rebound Back: Normal Inspection, No CVA Tenderness, No Vertebral Tenderness Extremity: Normal Range of Motion, No Calf Tenderness, Pedal Edema, Other ( Ulcer on the right leg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 Skin: Normal Color, Warm/Dry, Erythema, Other (Ulcer on the right leg) Lymphatic: No Adenopathy A/P-Cardiology Admission Diagnosis Sepsis Abdominal pain Hypotension COPD Assessment/Plan Sepsis, fever and chills. Generalized weakness, admitted to the intensive care unit and started on broad-spectrum antibiotics, managed by Dr. Perales and primary care physician. Abdominal pain, distended abdomen with guarding. Patient had C. difficile colitis during his last admission but has been doing well as an outpatient. Not receiving antibiotics. Planning to have a CT of the abdomen for evaluation. Short of breath, improvement compared to the previous admission. Monitor closely. Peripheral edema, restart diuretics once blood pressure is more stable Congestive heart failure, nonischemic cardiomyopathy, acute on chronic left ventricular systolic dysfunction with most recent ejection fraction improved to 50 percent. Maintained on beta gurpreet and Entresto. Monitor intake and output closely. Status post anoxic encephalopathy and pneumonia and sepsis early in October, improved with aggressive therapy. Back to his baseline. Continue to monitor. Status post acute renal failure. Improved, monitor renal function closely Peripheral vascular disease with history of nonhealing wounds bilaterally. Peripheral angiogram done 12/04/16 revealed moderate atherosclerotic disease on the left lower extremity, the anterior tibial artery is severely diseased on the left lower extremity but the ulcer on the left lower extremity has healed. Medical therapy is recommended. Moderate disease of the right lower extremity with good flow, with three-vessel flow down to the foot. Continue medical management at this time and continue to monitor. Small infrarenal abdominal aortic aneurysm noted during peripheral angiogram. Continue to monitor Hypertension, antihypertensive. Continue with fluid resuscitation and monitor closely. Hyperlipidemia, restart Lipitor once patient can tolerate it Hyperthyroidism, history of hypothyroidism and Levothroid, managed by primary care physician History of pulmonary hypertension, continue to monitor History of rheumatoid arthritis. COPD, managed and followed by primary care physician Tobaccoism, patient has stopped smoking after the last admission. Encouraged to continue with smoking cessation History of chronic narcotic use, urine drug screen is positive for opioids TORY HALL MD Dec 14, 2016 17:05
--- NOTE | 2016-12-14 17:34 | Diagnostic Imaging Report ---
PROCEDURE: CT abdomen and pelvis with contrast. TECHNIQUE: Multiple contiguous axial images were obtained through the abdomen and pelvis after administration of intravenous contrast. INDICATION: Septic shock. COMPARISON: 10/05/16 FINDINGS: Lower chest: Mixed linear nodular opacities in the lung bases have progressed since prior examination. Trace bilateral pleural effusions are also new. Peritoneum: No free intraperitoneal air. There is a small amount of abdominal ascites within the paracolic gutters in the right upper quadrant. Liver and biliary system: The liver is normal. The gallbladder is normal. Mild prominence of the common bile duct and intrahepatic central radicles is similar to prior examination. Spleen and Pancreas: Spleen is normal. The pancreas enhances normally without mass lesion or peripancreatic inflammatory changes. Adrenals: Normal. tract: Stable dystrophic calcification in the mid left kidney. No concerning renal lesions or obstructive uropathy. Urinary bladder is decompressed by Guerra catheter. However, there is circumferential wall thickening of the urinary bladder. Prostate is not enlarged. GI tract: Stomach is decompressed. No bowel obstruction. There is significant wall thickening of the rectosigmoid colon, descending colon and the distal aspect of the transverse colon. There is abnormal irregular mucosal enhancement. No pneumatosis. The appendix is not visualized with certainty. Vasculature and Lymph nodes: Normal caliber aorta. No abdominal or pelvic lymphadenopathy. Musculoskeletal: No concerning osseous lesion. Diffuse body wall edema/anasarca. IMPRESSION: 1. Long segment of contiguous colitis extending from the splenic flexure through the rectosigmoid colon. This is likely infectious in etiology and could represent pseudomembranous colitis in the appropriate setting. No pneumatosis, bowel perforation or obstruction. 2. Small volume of abdominal ascites is likely reactive. 3. Nodular airspace consolidations in the bilateral lower lobes could relate to infectious bronchiolitis versus aspiration. Trace bilateral pleural effusions. 4. Urinary bladder is decompressed by Guerra catheter. There is moderate circumferential wall thickening of the urinary bladder and correlation with urinalysis is suggested to evaluate for cystitis. Dictated by: Dictated on workstation # [id number]
[2016-12-14] MEDS ORDERED: VANCOMYCIN 1500 MG/NS 500 ML IVPB IV NR ×2 (18:00)
[2016-12-14] MEDS: NOREPINEPHRINE 4 MG in D5W 250 ML (IVPB) 250 ML IV SCH ×2 (18:00→21:56)
[2016-12-14] MEDS ORDERED: NS IV 1000 ML 1,000 ML IV ONE (18:00)
[2016-12-14] MEDS ORDERED: LEVOFLOXACIN 750 MG/D5W 150 ML PRE-MIX IV SCH (19:00)
[2016-12-14] MEDS ORDERED: FLU TRIvalent (5 YOA+) 2016-17 (AFLURIA) 0.5 ML IM ONE (20:00)
[2016-12-14] MEDS: RT-ALBUTEROL/IPRATROPIUM 3 ML (DUONEB) VIAL INH SCH (20:57)
[2016-12-14] MEDS: ONDANSETRON 4 MG/2 ML (SDV) Z0FRAN IV PRN (21:12)
[2016-12-14] MEDS: CATHETER FLUSH 10 ML SYR IV PRN (21:18)
[2016-12-14] MEDS: NS IV 1000 ML 1,000 ML IV SCH (22:39)
[2016-12-14] MEDS: PIPERACILLIN/TAZOBACTAM 4.5 GM/NS 100 ML IVPB IV SCH ×2 (22:40)
[2016-12-15] VITALS (23 sets, daily range): BP systolic 79–137; BP diastolic 44–85
[2016-12-15] MEDS ORDERED: fentaNYL INJECTION 100 MCG/2 ML AMP IV ONE (03:00)
[2016-12-15] MEDS ORDERED: fentaNYL INJECTION 100 MCG/2 ML AMP ONE (03:10)
[2016-12-15] MEDS: ONDANSETRON 4 MG/2 ML (SDV) Z0FRAN IV PRN ×2 (03:23→11:56)
[2016-12-15] MEDS: NOREPINEPHRINE 4 MG in D5W 250 ML (IVPB) 250 ML IV SCH ×2 (03:25→14:45)
[2016-12-15] MEDS: CATHETER FLUSH 10 ML SYR IV PRN (03:26)
[2016-12-15 03:51] LABS: BASOPHILS # (AUTO) 0.1 10^3/uL (0.0-0.1); BASOPHILS % (AUTO) 0 % (0-10); EOSINOPHILS % (AUTO) 0 % (0-10); LYMPHOCYTES # (AUTO) 1.5 X 10^3 (1.0-4.0); LYMPHOCYTES % (AUTO) 7 % (12-44); MEAN CORPUSCULAR HEMOGLOBIN 27 PG (25-34); MEAN CORPUSCULAR HGB CONC 32 G/DL (32-36); MEAN CORPUSCULAR VOLUME 86 FL (80-99); MONOCYTES # (AUTO) 1.9 X 10^3 (0.0-1.0); MONOCYTES % (AUTO) 9 % (0-12); NEUTROPHILS # (AUTO) 18.9 X 10^3 (1.8-7.8); NEUTROPHILS % (AUTO) 84 % (42-75); PLATELET COUNT 595 10^3/uL (130-400); RED CELL DISTRIBUTION WIDTH 17.8 % (10.0-14.5); WHITE BLOOD COUNT 22.4 10^3/uL (4.3-11.0)
[2016-12-15 04:11] LABS: ALANINE AMINOTRANSFERASE 10 U/L (0-55); ALBUMIN 1.8 G/DL (3.2-4.5); ANION GAP 9 MMOL/L (5-14); ASPARTATE AMINO TRANSFERASE 14 U/L (5-34); BILIRUBIN,TOTAL 0.3 MG/DL (0.1-1.0); BLOOD UREA NITROGEN 10 MG/DL (7-18); BUN/CREATININE RATIO 10; CARBON DIOXIDE 25 MMOL/L (21-32); CHLORIDE 101 MMOL/L (98-107); CREATININE SERUM 0.99 MG/DL (0.60-1.30); GFR ESTIMATED > 60; GLUCOSE 89 MG/DL (70-105); POTASSIUM 3.2 MMOL/L (3.6-5.0); SODIUM 135 MMOL/L (135-145); TOTAL PROTEIN 4.5 G/DL (6.4-8.2)
[2016-12-15] MEDS: KCL 20 MEQ TAB (K-DUR) PO SCH (05:05)
[2016-12-15 05:19] LABS: PHOSPHORUS 3.1 MG/DL (2.3-4.7)
[2016-12-15] MEDS: PIPERACILLIN/TAZOBACTAM 4.5 GM/NS 100 ML IVPB IV SCH ×6 (05:21→22:58)
[2016-12-15] MEDS: POTASSIUM CL 10MEQ/50ML IVPB 50 ML IV SCH ×5 (05:22→08:21)
[2016-12-15 05:25] LABS: MAGNESIUM 0.9 MG/DL (1.8-2.4)
[2016-12-15] MEDS: MAGNESIUM 1 GM/100 ML IVPB 100 ML IV SCH ×7 (05:29→11:27)
[2016-12-15] MEDS: fentaNYL INJECTION 100 MCG/2 ML AMP IV PRN ×5 (05:42→23:37)
[2016-12-15] MEDS ORDERED: VANCOMYCIN 1 GM/NS 250 ML IVPB IV SCH ×2 (06:00)
--- NOTE | 2016-12-15 06:59 | Pulmonary Consultation ---
History of Present Illness History of Present Illness Date of Consultation 12/15/16 06:54 Date of Admission Reason for Visit: Sepsis History of Present Illness 71yo with hx of CAD, and CHF presented secondary to worsening SOB and confusion. was recently discharged from [facility] after short stay. Pt was noted to have hypotension in ED central line was placed and pt is getting Levophed. Pt complains of abdominal pain 05/28. I am consulted for ICU management. Allergies and Home Medications Allergies Coded Allergies: Sulfa (Sulfonamide Antibiotics) (Unverified Allergy, Unknown, 11/07/16) Home Medications Aspirin 81 Mg Tabec, 81 MG PO DAILY, (Reported) Atorvastatin Calcium 40 Mg Tablet, 40 MG PO HS, (Reported) Carvedilol 3.125 Mg Tablet, 3.125 MG PO BID, #60 Prescribed by: FLOR CARABALLO on 12/06/16 1053 Hydrocodone/Acetaminophen 1 Each Tablet, 1 TAB PO Q6H PRN for PAIN, (Reported) Ipratropium/Albuterol Sulfate 3 Ml Ampul.neb, 3 ML IH Q6H PRN for SHORTNESS OF BREATH, (Reported) Levothyroxine Sodium 125 Mcg Tablet, 125 MCG PO DAILY@0630, #30 Prescribed by: FLOR CARABALLO on 12/06/16 1052 Metronidazole 500 Mg Tablet, 500 MG PO TID, #15 Prescribed by: FLOR CARABALLO on 12/06/16 1052 Pantoprazole Sod 40 Mg Tab, 40 MG PO DAILY, (Reported) Sacubitril/Valsartan 1 Each Tablet, 1 EACH PO BID, #60 Prescribed by: FLOR CARABALLO on 12/06/16 1052 Past Ehkhckp-Rhwgvq-Xxqmcv Hx Patient Social History Alcohol Use: Past History Recreational Drug Use: No (NONE FOR YEARS) Smoking Status: Former Smoker Type Used: Cigarettes Recent Foreign Travel: No Contact w/Someone Who Travel: No Recent Infectious Disease Expo: No Recent Hopitalizations: Yes Physical Abuse Screen: No Sexual Abuse: No Immunizations Up To Date Date of Pneumonia Vaccine: Mar 04, 2013 Seasonal Allergies Seasonal Allergies: No Surgeries HX Surgeries: Yes Surgeries: Cardiac, Orthopedic Respiratory Hx Respiratory Disorders: Yes Respiratory Disorders: Chronic Bronchitis, COPD, Emphysema Cardiovascular Hx Cardiac Disorders: Yes (CHF; PULMONARY HTN) Cardiac Disorders: Coronary Artery Disease, High Cholesterol, Hypertension, Peripheral Vascular Neurological Hx Neurological Disorders: No Reproductive System Hx Reproductive Disorders: No Sexually Transmitted Disease: Yes HIV/AIDS: No Genitourinary Hx Genitourinary Disorders: No Genitourinary Disorders: Renal Failure Gastrointestinal Hx Gastrointestinal Disorders: Yes Gastrointestinal Disorders: Gastroesophageal Reflux, Hemorrhoids Musculoskeletal Hx Musculoskeletal Disorders: Yes (RHEUMATOID ARTHRITIS/OSTEOPOROSIS; BILATERAL OLECRANON BURSITIS) Musculoskeletal Disorders: Osteoporosis, Arthritis, Rheumatoid Arthritis Endocrine Hx Endocrine Disorders: Yes Endocrine Disorders: Hypothyroidsim HEENT HX ENT Disorders: Yes (full set of dentures) Cancer Hx Cancer: No Psychosocial Hx Psychiatric Problems: Yes Behavioral Health Disorders: Anxiety Integumentary HX Skin/Integumentary Disorder: Yes (CHRONIC LEG WOUNDS ) Blood Transfusions Hx Blood Disorders: Yes (ANEMIA) Reviewed Nursing Assessment Reviewed/Agree w Nursing PMH: Yes Family Medical History Significant Family History: No Pertinent Family Hx Family Medial History: Patient reports no known family medical history. Exam Exam Vital Signs Date Time Temp Pulse Resp B/P (MAP) Pulse Ox O2 Delivery O2 Flow Rate FiO2 12/15/16 06:12 100.5 12/15/16 06:00 95 19 112/60 100 Room Air 12/15/16 05:42 99.6 12/15/16 05:22 99.6 12/15/16 05:00 91 19 114/65 96 Room Air 12/15/16 04:00 2.00 12/15/16 04:00 92 13 108/56 100 Room Air 12/15/16 03:21 99.6 12/15/16 03:00 92 19 122/64 100 Room Air 12/15/16 02:00 92 8 110/60 95 Room Air 12/15/16 01:00 103 12/15/16 01:00 101 9 108/51 90 Room Air 12/15/16 00:01 114 16 79/44 97 Room Air 12/15/16 00:00 100.8 12/15/16 00:00 2.00 12/14/16 23:00 97 18 132/91 97 Room Air 12/14/16 22:41 101.0 12/14/16 22:00 102 20 96/67 88 Room Air 12/14/16 21:00 112 12 102/56 91 Room Air 12/14/16 20:58 95 12/14/16 20:26 95 12/14/16 20:00 104 10 112/62 93 Room Air 12/14/16 20:00 2.00 12/14/16 19:21 99 12/14/16 19:00 96 12/14/16 19:00 106 21 106/66 95 Room Air 12/14/16 18:00 98 14 123/65 99 Room Air 12/14/16 17:15 100.0 92 14 106/65 100 Nasal Cannula 2.00 12/14/16 16:27 100.2 92 18 98 2.00 12/14/16 15:13 92 20 82/50 12/14/16 14:21 Nasal Cannula 12/14/16 14:21 102.6 122 20 106/92 98 I & O 12/15/16 07:00 Intake Total 2374 ml Output Total 600 ml Balance 1774 ml General Appearance: WD/WN, Moderate Distress HEENT: PERRL/EOMI, TMs Normal, Normal ENT Inspection, Pharynx Normal Neck: Full Range of Motion, Normal Inspection, Non Tender, Supple, Carotid Bruit Respiratory: Chest Non Tender, Lungs Clear, Normal Breath Sounds, No Accessory Muscle Use, No Respiratory Distress Cardiovascular: Regular Rate, Rhythm, No Edema, No Gallop, No JVD, Normal Peripheral Pulses, Systolic Murmur Capillary Refill: Less Than 3 Seconds Extremity: Normal Range of Motion, No Calf Tenderness, Pedal Edema, Other ( Ulcer on the right leg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 Skin: Normal Color, Warm/Dry, Erythema, Other (Ulcer on the right leg) Lymphatic: No Adenopathy Results Lab Laboratory Tests 12/14/16 14:25 12/15/16 03:45 Assessment/Plan Assessment/Plan Infectious vs ischemic colitis -Consult surgery - 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
[2016-12-15] MEDS: NS IV 1000 ML 2,000 ML IV PRN (07:11)
[2016-12-15] MEDS ORDERED: VANCOMYCIN ORAL SUSPENSION 60 ML BOTTLE PO SCH (07:15)
[2016-12-15] MEDS: RT-ALBUTEROL/IPRATROPIUM 3 ML (DUONEB) VIAL INH SCH ×3 (07:33→19:15)
--- NOTE | 2016-12-15 07:44 | Cardiology Progress Note ---
Subjective Subjective/Events-last exam patient is laying down in bed, still having abdominal pain and cramps. Review of Systems General: No Chills, No Night Sweats, Fatigue, Malaise, No Appetite, No Other HEENT: No Head Aches, No Visual Changes, No Eye Pain, No Ear Pain, No Dysphasia , No Sinus Congestion, No Post Nasal Drip, No Sore Throat, No Other Pulmonary: Dyspnea, No Cough, No Pleuritic Chest Pain, No Other Cardiovascular: No: Chest Pain, Edema, Lt Headedness, Orthopnea, Other, Palpitations, Paroxysmal Noc. Dyspnea Gastrointestinal: Abdominal Pain Objective-Cardiology Exam Last Set of Vital Signs Vital Signs 12/15/16 12/15/16 12/15/16 06:00 06:12 07:34 Temp 100.5 Pulse 95 Resp 19 B/P (MAP) 112/60 Pulse Ox 95 O2 Delivery Room Air O2 Flow Rate 2.00 Capillary Refill : Less Than 3 Seconds I&O Bad tableGeneral: Alert, Oriented X3, Cooperative, Moderate Distress HEENT: Atraumatic, PERRLA Neck: Supple, No JVD, No Thyromegaly Lungs: Clear to Auscultation, Normal Air Movement Heart: Regular Rate, Normal S1, Normal S2, No Murmurs Abdomen: No Masses, Other (abdominal pain, guarding) Extremities: No Clubbing, No Cyanosis, No Edema, Normal Pulses, No Tenderness/ Swelling Skin: No Rashes, No Breakdown, No Significant Lesion Neuro: Normal Speech, Normal Tone Psych/Mental Status: Mood NL Results Lab Laboratory Tests 12/14/16 14:25 12/15/16 03:45 A/P-Cardiology Admission Diagnosis Sepsis Abdominal pain Hypotension COPD Assessment/Plan Sepsis, fever and chills. Generalized weakness, admitted to the intensive care unit and started on broad-spectrum antibiotics, managed by Dr. Perales and primary care physician. Abdominal pain, distended abdomen with guarding. Patient had C. difficile colitis during his last admission, CT scan showed colitis. Antibiotics were changed. Per Dr. Perales recommendation, Dr Jaime is consulted Short of breath, slightly worse, monitor chest x-ray. Peripheral edema, diuretics are on hold due to hypotension, continue his fluid resuscitation and monitor fluid balance closely Congestive heart failure, nonischemic cardiomyopathy, acute on chronic left ventricular systolic dysfunction with most recent ejection fraction improved to 50 percent. Maintained on beta gurpreet and Entresto. Monitor intake and output closely. Status post anoxic encephalopathy and pneumonia and sepsis early in October, improved with aggressive therapy. Back to his baseline. Continue to monitor. Status post acute renal failure. Improved, monitor renal function closely Peripheral vascular disease with history of nonhealing wounds bilaterally. Peripheral angiogram done 12/04/16 revealed moderate atherosclerotic disease on the left lower extremity, the anterior tibial artery is severely diseased on the left lower extremity but the ulcer on the left lower extremity has healed. Medical therapy is recommended. Moderate disease of the right lower extremity with good flow, with three-vessel flow down to the foot. Continue medical management at this time and continue to monitor. Small infrarenal abdominal aortic aneurysm noted during peripheral angiogram. Continue to monitor Hypertension, antihypertensive. Continue with fluid resuscitation and monitor closely. Hyperlipidemia, hold statin for now. Hyperthyroidism, history of hypothyroidism and Levothroid, managed by primary care physician History of pulmonary hypertension, continue to monitor History of rheumatoid arthritis. COPD, managed and followed by primary care physician Tobaccoism, patient has stopped smoking after the last admission. Encouraged to continue with smoking cessation History of chronic narcotic use, urine drug screen is positive for opioids Clinical Quality Measures DVT/VTE Risk/Contraindication: Risk Factor Score Per Nursin RFS Level Per Nursing on Admit: 4+=Very High TORY HALL MD Dec 15, 2016 07:44
[2016-12-15] MEDS: NS IV 1000 ML 1,000 ML IV SCH ×3 (08:21→22:04)
[2016-12-15] MEDS: VANCOMYCIN ORAL 250 MG/5 ML 60 ML PO SCH ×6 (08:28→22:04)
--- NOTE | 2016-12-15 09:12 | Diagnostic Imaging Report ---
INDICATION: Dyspnea. Compared 12/14/2016. FINDINGS: The left lung infiltrate substantially improved. Underlying COPD chronic. Mild cardiomegaly unchanged. IMPRESSION: Improvement in left lung infiltrate with no adverse development. Dictated by: Dictated on workstation # [id number]
[2016-12-15] MEDS ORDERED: FURO20TA4 PO (10:21)
[2016-12-15] MEDS ORDERED: SACU1TAB PO (10:21)
[2016-12-15] MEDS ORDERED: MORP-34 PO (10:21)
[2016-12-15] MEDS ORDERED: CALC-6 PO (10:21)
[2016-12-15] MEDS ORDERED: CARV3.122 PO (10:21)
[2016-12-15] MEDS ORDERED: LEVO175T5 PO (10:21)
[2016-12-15] MEDS ORDERED: POTA10TA36 PO (10:21)
--- NOTE | 2016-12-15 10:52 | History & Physical-Hospitalist ---
HPI History of Present Illness: HPI/Chief Complaint CC: Fever with lethargy HPI: This is a 71ypWM pt of Dr. Grajeda that is known to me from prior admissions that just completed NH 20 days of therapy when he presented to ER with fever and weakness. Pt was found to have severe sepsis. Pt was given appropriate IVF per protocol ABX. Pt was placed on triple antibiotic therapy of : Zosyn, Vancomycin, and Levaquin. Pt has EF of 20%. Cardiology and Pulmonology are consulted. Pt was placed on pressor therapy after center line placed. 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 test pilot: Pt is going to surgery today. Pt had C. diff w/pseudomembranous colitis. Pt is going to have colon resection. CT scan revealed pseudomembranous colitis. Pt needs to speak with Cardiology and Pulmonology. Palliative Care Review: Pt has pseudomembranous colitis and is scheduled for surgery. Pt is in bad shape. Patient Interview: Pt was informed that he has pneumonia and colitis. Pt states he is in pain currently. Pt states his stomach is in pain. Pt states he was fitted for a life vest. Physical exam was stable. Pt states he is breathing well currently. Pt states he spoke with Dr. Jaime. Pt states he will do what he needs to do to feel better. Scribed by Tereso Guerrero under the direct supervision of Dr. Brown. Source: patient Date Seen 12/15/16 Attending Physician Gabi Brown DO PCP Berry Grajeda MD Referring Physician Date of Admission Dec 14, 2016 at 16:03 Home Medications & Allergies Home Medications Reviewed patient Home Medication Reconciliation Form Allergies Allergies Coded Allergies Sulfa (Sulfonamide Antibiotics) (Unverified Allergy, Unknown, 11/07/16) Past Mfwijqf-Tnxccp-Fpyoxr Hx Patient Social History Marrital Status: single Employed/Student: retired Alcohol Use: Past History Recreational Drug Use: No (NONE FOR YEARS) Smoking Status: Former Smoker Type Used: Cigarettes Physical Abuse Screen: No Sexual Abuse: No Recent Foreign Travel: No Contact w/other who traveled: No Recent Hopitalizations: Yes Recent Infectious Disease Expo: No Immunizations Up To Date Date of Pneumonia Vaccine: Mar 04, 2013 Seasonal Allergies Seasonal Allergies: No Surgeries HX Surgeries: Yes Surgeries: Cardiac, Orthopedic Respiratory Hx Respiratory Disorders: Yes Respiratory Disorders: COPD, Sleep Apnea Cardiovascular Hx Cardiovascular Disorders: Yes (CHF; PULMONARY HTN) Cardiac Disorders: Coronary Artery Disease, High Cholesterol, Hypertension, Peripheral Vascular Neurological Hx Neurological Disorders: No Reproductive System Hx Reproductive Disorders: No Sexually Transmitted Disease: Yes HIV/AIDS: No Genitourinary Hx Genitourinary Disorders: No Genitourinary Disorders: Renal Failure Gastrointestinal Hx Gastrointestinal Disorders: Yes Gastrointestinal Disorders: Gastroesophageal Reflux, Hemorrhoids Musculoskeletal Hx Musculoskeletal Disorders: Yes (RHEUMATOID ARTHRITIS/OSTEOPOROSIS; BILATERAL OLECRANON BURSITIS) Musculoskeletal Disorders: Osteoporosis, Arthritis, Rheumatoid Arthritis Endocrine Hx Endocrine Disorders: Yes Endocrine Disorders: Hypothyroidsim HEENT HX ENT Disorders: Yes (full set of dentures) Cancer Hx Cancer: No Psychosocial Hx Psychiatric Problems: Yes Behavioral Health Disorders: Anxiety Integumentary HX Skin/Integumentary Disorder: Yes (CHRONIC LEG WOUNDS ) Blood Transfusions Hx Blood Disorders: Yes (ANEMIA) Reviewed Nursing Assessment Reviewed/Agree w Nursing PMH: Yes Family Medical History Significant Family History: No Pertinent Family Hx Family Hx: Patient reports no known family medical history. Review of Systems Constitutional: see HPI, malaise, weakness EENTM: no symptoms reported Respiratory: dyspnea on exertion, short of breath, wheezing Cardiovascular: no symptoms reported Gastrointestinal: abdominal pain (LLQ), loss of appetite, nausea, vomiting Genitourinary: no symptoms reported Musculoskeletal: back pain Skin: no symptoms reported Psychiatric/Neurological: No Symptoms Reported All Other Systems Reviewed Negative Unless Noted: Yes Physical Exam Physical Exam Vital Signs Vital Sign - Last 12Hours 12/14/16 12/14/16 14:21 16:27 Temp 102.6 Pulse 122 Resp 20 B/P (MAP) 106/92 Pulse Ox 98 O2 Delivery Nasal Cannula O2 Flow Rate 2.00 Capillary Refill : Less Than 3 Seconds General Appearance: WD/WN, Chronically ill, Moderate Distress Eyes: Bilateral Eye Normal Inspection, Bilateral Eye PERRL HEENT: PERRL/EOMI, Normal ENT Inspection, Pharynx Normal Neck: Full Range of Motion, Normal Inspection, Non Tender, Supple, Carotid Bruit Respiratory: Chest Non Tender, Lungs Clear, Normal Breath Sounds, No Accessory Muscle Use, No Respiratory Distress Cardiovascular: Regular Rate, Rhythm, No Edema, No Gallop, No JVD, No Murmur, Normal Peripheral Pulses Gastrointestinal: Normal Bowel Sounds, No Organomegaly, No Pulsatile Mass, Distended, Guarding, Rebound, Tenderness Back: Normal Inspection, No CVA Tenderness, No Vertebral Tenderness Extremity: Normal Capillary Refill, Normal Inspection, Normal Range of Motion, Non Tender, No Calf Tenderness, No Pedal Edema Neurologic/Psychiatric: Alert, Oriented x3, No Motor/Sensory Deficits, Depressed Affect Skin: Normal Color, Warm/Dry Lymphatic: No Adenopathy Results Results/Procedures Lab Laboratory Tests 12/14/16 14:25 12/15/16 03:45 Assessment/Plan Admission Diagnosis Assessment: Severe sepsis due to pneumonia 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 difficile colitis Overall debility requiring assisted placement just discharged Assessment and Plan Plan: Very poor prognosis going into possible colon resection Likely will be vent dependent Severe sepsis requiring aggressive IV fluid resuscitation in ejection fraction of 20 percent likely will ultimately cause volume overload Antibiotics to continue Poor prognosis Palliative care Clinical Quality Measures DVT/VTE Risk/Contraindication: Risk Factor Score Per Nursin RFS Level Per Nursing on Admit: 4+=Very High GABI BROWN DO Dec 15, 2016 10:52
--- NOTE | 2016-12-15 11:00 | Consultation ---
History of Present Illness History of Present Illness Patient Consulted On(kendra/time) 12/15/16 10:55 Date of Admission Reason for Visit: Sepsis History of Present Illness Surgery is asked to consult regarding colitis seen on CT scan. Pt is in septic shock, requiring pressors to keep his BP up. HPI: This is a 71ypWM pt of Dr. Grajeda that just completed [facility] 20 days of therapy when he presented to ER with fever and weakness. Pt was found to have sepsis. Pt was given appropriate IV ABX. Pt was placed on triple antibiotic therapy of: Zosyn, Vancomycin, and Levaquin. Pt has EF of 50%. He states the pain has been going on since yesterday. He thinks he has had pain like this before, but possibly not quite this bad and usually doesn't last this long. Rating the pain as 9 out of 10, on a 1-10 scale. Sharp, crampy pain, more right side then left - but diffuse across abdomen. He denies diarrhea. Admits to fever and chills. Movement makes the pain worse. He does have history of C. Diff; possibly not fully treated. Pain is not improving and only barely helped with pain meds. Allergies and Home Medications Allergies Coded Allergies: Sulfa (Sulfonamide Antibiotics) (Unverified Allergy, Unknown, 11/07/16) Home Medications Aspirin 81 Mg Tabec, 81 MG PO DAILY, (Reported) Atorvastatin Calcium 40 Mg Tablet, 40 MG PO HS, (Reported) Calcium Carbonate/Vitamin D3 1 Each Tablet, 1 TAB PO DAILY, (Reported) Carvedilol 3.125 Mg Tablet, 3.125 MG PO BID, (Reported) Furosemide 20 Mg Tablet, 20 MG PO DAILY, (Reported) Hydrocodone/Acetaminophen 1 Each Tablet, 1 TAB PO Q6H PRN for MODERATE PAIN, ( Reported) Ipratropium/Albuterol Sulfate 3 Ml Ampul.neb, 3 ML IH Q6H PRN for SHORTNESS OF BREATH, (Reported) Levothyroxine Sodium 175 Mcg Tablet, 175 MCG PO DAILY@0600, (Reported) Morphine Sulfate 30 Mg Tablet.er, 30 MG PO Q8H PRN for SEVERE PAIN, (Reported) Pantoprazole Sod 40 Mg Tab, 40 MG PO DAILY, (Reported) Potassium Chloride 10 Meq Tab.er.prt, 10 MEQ PO DAILY, (Reported) Sacubitril/Valsartan 1 Each Tablet, 1 TAB PO BID, (Reported) Past Pbogtqq-[id number]-Mmjwkx Hx Patient Social History Alcohol Use: Past History Recreational Drug Use: No (NONE FOR YEARS) Smoking Status: Former Smoker Type Used: Cigarettes Recent Foreign Travel: No Contact w/Someone Who Travel: No Recent Infectious Disease Expo: No Recent Hopitalizations: Yes Physical Abuse Screen: No Sexual Abuse: No Immunizations Up To Date Date of Pneumonia Vaccine: Mar 04, 2013 Seasonal Allergies Seasonal Allergies: No Surgeries HX Surgeries: Yes Surgeries: Cardiac, Orthopedic Respiratory Hx Respiratory Disorders: Yes Respiratory Disorders: Chronic Bronchitis, COPD, Emphysema Cardiovascular Hx Cardiac Disorders: Yes (CHF; PULMONARY HTN) Cardiac Disorders: Chronic Edema/Swelling, Coronary Artery Disease, High Cholesterol, Hypertension, Peripheral Vascular Neurological Hx Neurological Disorders: No Reproductive System Hx Reproductive Disorders: No Sexually Transmitted Disease: Yes HIV/AIDS: No Genitourinary Hx Genitourinary Disorders: No Genitourinary Disorders: Renal Failure Gastrointestinal Hx Gastrointestinal Disorders: Yes Gastrointestinal Disorders: Gastroesophageal Reflux, Hemorrhoids Musculoskeletal Hx Musculoskeletal Disorders: Yes (RHEUMATOID ARTHRITIS/OSTEOPOROSIS; BILATERAL OLECRANON BURSITIS) Musculoskeletal Disorders: Osteoporosis, Arthritis, Rheumatoid Arthritis Endocrine Hx Endocrine Disorders: Yes Endocrine Disorders: Hypothyroidsim HEENT HX ENT Disorders: Yes (full set of dentures) Cancer Hx Cancer: No Psychosocial Hx Psychiatric Problems: Yes Behavioral Health Disorders: Anxiety Integumentary HX Skin/Integumentary Disorder: Yes (CHRONIC LEG WOUNDS ) Blood Transfusions Hx Blood Disorders: Yes (ANEMIA) Reviewed Nursing Assessment Reviewed/Agree w Nursing PMH: Yes Family Medical History Significant Family History: No Pertinent Family Hx Family Medial History: Patient reports no known family medical history. Review of Systems-General Constitutional: chills, diaphoresis, weakness EENTM: hearing loss, No double vision, No throat pain Respiratory: dyspnea on exertion, No hemoptysis, short of breath, wheezing Cardiovascular: No chest pain, edema, No palpitations, vascular heart diseas Gastrointestinal: abdominal pain, constipation, No hematemesis, No jaundice Genitourinary: dysuria, frequency Musculoskeletal: back pain, joint pain, muscle stiffness, muscle cramps, muscle weakness Skin: dryness, other (chronic erythema in lower extremities, venous stasis ulcers) Psychiatric/Neurological: Denies Anxiety, Denies Depressed, Headache, Denies Seizure, Weakness Other pt denies any swollen lymph nodes Physical Exam-General Problems Physical Exam Vital Signs Vital Sign - Last 12Hours 12/14/16 12/14/16 14:21 16:27 Temp 102.6 Pulse 122 Resp 20 B/P (MAP) 106/92 Pulse Ox 98 O2 Delivery Nasal Cannula O2 Flow Rate 2.00 Capillary Refill : Less Than 3 Seconds General Appearance: severe distress, thin Eyes: Bilateral Eye EOMI, Bilateral Eye PERRL HEENT: pharynx normal, No scleral icterus (R), No scleral icterus (L) Neck: non-tender, supple, No thyromegaly Respiratory: decreased breath sounds (left base more than right), No accessory muscle use, other (dullness to percussion at bases) Cardiovascular: regular rate, rhythm, no gallop, systolic murmur Gastrointestinal: no organomegaly, distended, guarding (mostly voluntary), rebound, tenderness (right>left, but diffuse) Rectal: deferred Back: no vertebral tenderness, decreased range of motion Extremities: no calf tenderness, No calf tenderness, pedal edema (venous stasis changes and ulcers), other (right arm is edematous below the elbow) 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, alert, normal mood/affect, oriented x 3 Skin: normal color, warm/dry Lymphatic: no adenopathy (neck, axilla or groin) Data Review Labs Laboratory Tests 12/14/16 14:25: White Blood Count 19.8H, Red Blood Count 3.52L, Hemoglobin 9.6L, Hematocrit 30L , Mean Corpuscular Volume 86, Mean Corpuscular Hemoglobin 27, Mean Corpuscular Hemoglobin Concent 32, Red Cell Distribution Width 17.7H, Platelet Count 612H, Mean Platelet Volume 9.2, Neutrophils (%) (Auto) 77H, Lymphocytes (%) (Auto) 14 , Monocytes (%) (Auto) 10, Eosinophils (%) (Auto) 0, Basophils (%) (Auto) 0, Neutrophils # (Auto) 15.2H, Lymphocytes # (Auto) 2.7, Monocytes # (Auto) 1.9H, Eosinophils # (Auto) 0.0, Basophils # (Auto) 0.1, Neutrophils % (Manual) 77, Lymphocytes % (Manual) 14, Monocytes % (Manual) 8, Basophils % (Manual) 1, Polychromasia SLIGHT, Target Cells SLIGHT, Elliptocytes SLIGHT, Prothrombin Time 15.5H, INR Comment 1.3, Activated Partial Thromboplast Time 35, Sodium Level 135, Potassium Level 3.9, Chloride Level 99, Carbon Dioxide Level 28, Anion Gap 8, Blood Urea Nitrogen 10, Creatinine 1.01, Estimat Glomerular Filtration Rate > 60, BUN/Creatinine Ratio 10, Glucose Level 74, Lactic Acid Level 2.23*H, Calcium Level 7.6L, Total Bilirubin 0.4, Aspartate Amino Transf ( AST/SGOT) 20, Alanine Aminotransferase (ALT/SGPT) 11, Alkaline Phosphatase 76, Troponin I < 0.30, Total Protein 5.0L, Albumin 2.0L 12/14/16 15:50: Urine Color YELLOW, Urine Clarity CLEAR, Urine pH 5, Urine Specific [place] 1.020, Urine Protein 1+H, Urine Glucose (UA) NEGATIVE, Urine Ketones NEGATIVE, Urine Nitrite NEGATIVE, Urine Bilirubin 1+H, Urine Urobilinogen NORMAL, Urine Leukocyte Esterase 1+H, Urine RBC (Auto) 1+H, Urine RBC 0-2, Urine WBC 2-5, Urine Crystals PRESENTH, Urine Amorphous Sediment LARGE SHAUN URATESH, Urine Bacteria FEWH, Urine Casts PRESENT, Urine Hyaline Casts 10-25H, Urine Mucus NEGATIVE, Urine Culture Indicated YES 12/14/16 16:10: Lactic Acid Level 0.90 12/15/16 03:45: White Blood Count 22.4H, Red Blood Count 3.10L, Hemoglobin 8.5L, Hematocrit 27L , Mean Corpuscular Volume 86, Mean Corpuscular Hemoglobin 27, Mean Corpuscular Hemoglobin Concent 32, Red Cell Distribution Width 17.8H, Platelet Count 595H, Mean Platelet Volume 9.0, Neutrophils (%) (Auto) 84H, Lymphocytes (%) (Auto) 7L , Monocytes (%) (Auto) 9, Eosinophils (%) (Auto) 0, Basophils (%) (Auto) 0, Neutrophils # (Auto) 18.9H, Lymphocytes # (Auto) 1.5, Monocytes # (Auto) 1.9H, Eosinophils # (Auto) 0.0, Basophils # (Auto) 0.1, Sodium Level 135, Potassium Level 3.2L, Chloride Level 101, Carbon Dioxide Level 25, Anion Gap 9, Blood Urea Nitrogen 10, Creatinine 0.99, Estimat Glomerular Filtration Rate > 60, BUN/ Creatinine Ratio 10, Glucose Level 89, Calcium Level 7.0L, Total Bilirubin 0.3, Aspartate Amino Transf (AST/SGOT) 14, Alanine Aminotransferase (ALT/SGPT) 10, Alkaline Phosphatase 77, Total Protein 4.5L, Albumin 1.8L, Phosphorus Level 3.1 , Magnesium Level 0.9*L Microbiology 12/14/16 Urine Culture - Final, Complete Assessment/Plan Assessment/Plan Assessment/Plan Septic Shock - on pressors, BP stable now Colitis - infectious vs. ischemic CHF - EF is improved since last visit at 50% I had a long discussion with the patient regarding his current problems and treatment options.he appears to have a colitis unsure whether this is infectious versus ischemic; CT scan looks very bad. I believe because of his abdominal, pain white count and hypotension/septic shock that he needs to have his left colon completely removed. This most likely will mean he will need a colostomy. Patient has multiple medical problems including CHF and pulmonary disease; this will increase his risk of complications.patient will most likely come back to the ICU on the vent. This may increase his length of stay and hospital course. We discussed the surgery in detail all risk and complications discussed including but not limited to pain bleeding infection scar damage to bowel need further procedure. If he gets a colostomy; he will then have risk with this; including parastomal hernia and colostomy retraction. All questions answered to his satisfaction and we will get consent and possibly bring him down for surgery sometime this morning or early afternoon. Clinical Quality Measures DVT/VTE Risk/Contraindication: Risk Factor Score Per Nursin RFS Level Per Nursing on Admit: 4+=Very High NATALIYA BOSWELL DO Dec 15, 2016 11:00
[2016-12-15] MEDS: metroNIDAZOLE 500MG/100ML IVPB 100 ML IV SCH ×2 (13:56→22:58)
[2016-12-15] MEDS ORDERED: HYDROmorphone (DILAUDID) 2 MG/ML VIAL ONE (15:20)
[2016-12-15] MEDS ORDERED: MEPERIDINE (DEMEROL) INJ 50 MG/ML ONE (15:20)
[2016-12-15] MEDS ORDERED: morphine INJ 10 MG/ML 1ML (SYR OR VIAL) ONE (15:21)
[2016-12-15] MEDS ORDERED: ONDANSETRON 4 MG/2 ML (SDV) Z0FRAN ONE ×2 (15:21→16:07)
[2016-12-15] MEDS ORDERED: proPOfol 200 MG/20 ML (DIPRIVAN) VIAL IV ONE (16:07)
[2016-12-15] MEDS ORDERED: LACTATED RINGERS 1,000 ML IV ONE (16:07)
[2016-12-15] MEDS ORDERED: LIDOCAINE JELLY 2% (XYLOCAINE) 5 ML TUBE ONE (16:07)
[2016-12-15] MEDS ORDERED: LIDOCAINE PF 2% 10 ML (XYLOCAINE) AMP ONE (16:07)
[2016-12-15] MEDS ORDERED: ROCURONIUM 50 MG/5 ML (ZEMURON) VIAL IV ONE ×2 (16:07→18:40)
[2016-12-15] MEDS ORDERED: MIDAZOLAM 2 MG/2 ML (VERSED) VIAL ONE (16:08)
[2016-12-15] MEDS: LACTATED RINGERS 1,000 ML IV SCH ×3 (16:15→19:24)
[2016-12-15] MEDS ORDERED: ETOMIDATE IV SOLN 20 MG/10 ML VIAL ONE (16:56)
[2016-12-15] MEDS ORDERED: TROUGH ORDER-PHARMACY XX NR (17:00)
[2016-12-15] MEDS ORDERED: LACTATED RINGERS 0 ML IV ONE (18:14)
[2016-12-15] MEDS ORDERED: SUCCINYLCHOLINE INJ 100 MG/5 ML SYR ONE (18:14)
[2016-12-15] MEDS ORDERED: ISOFLURANE (FORANE) 15 ML/15 MIN INHALATION ONE ×2 (18:14→18:38)
[2016-12-15] MEDS ORDERED: MEPERIDINE (DEMEROL) INJ 50 MG/ML IVP PRN (19:15)
[2016-12-15] MEDS ORDERED: ONDANSETRON 4 MG/2 ML (SDV) Z0FRAN IVP PRN (19:15)
[2016-12-15] MEDS ORDERED: morphine INJ 10 MG/ML 1ML (SYR OR VIAL) IVP PRN (19:15)
--- NOTE | 2016-12-15 19:54 | Progress Note-Post Operative ---
Post-Operative Progess Note Surgeon (s)/Procurement Services Manager (s) Surgeon NATALIYA BOSWELL DO Procurement Services Manager: Dr. 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
[2016-12-15] MEDS: PANTOPRAZOLE 40 MG/10 ML (PROTONIX) VIAL IV SCH (21:56)
[2016-12-15 22:49] LABS: ABG HCO3 23 MMOL/L (23-27); ABG OXYGEN SATURATION 99 % (94-100); ABG PCO2 36 MMHG (35-45); ABG PH 7.42 (7.37-7.43); ABG PO2 103 MMHG (79-93); ABG TCO2 24.4 MMOL/L (21.0-31.0); ALLENS TEST ART LINE
[2016-12-15] MEDS ORDERED: ALBUMIN 5% 12.5 GM/250 ML 500 ML IV ONE (23:00)
[2016-12-15 23:05] LABS: ALBUMIN 1.6 G/DL (3.2-4.5); POTASSIUM 3.2 MMOL/L (3.6-5.0)
[2016-12-16] VITALS (32 sets, daily range): BP systolic 89–150; BP diastolic 51–94
[2016-12-16] MEDS: fentaNYL INJECTION 100 MCG/2 ML AMP IV PRN (00:29)
[2016-12-16] MEDS: POTASSIUM CL 10MEQ/50ML IVPB 50 ML IV SCH ×7 (00:31→06:26)
[2016-12-16] MEDS: NS IV 1000 ML 1,000 ML IV SCH ×4 (00:40→18:11)
[2016-12-16] MEDS: NOREPINEPHRINE 4 MG in D5W 250 ML (IVPB) 250 ML IV SCH (01:57)
[2016-12-16] MEDS: VANCOMYCIN ORAL 250 MG/5 ML 60 ML PO SCH ×8 (02:00→20:22)
[2016-12-16 04:29] LABS: BASOPHILS % (AUTO) 0 % (0-10); EOSINOPHILS # (AUTO) 0.1 10^3/uL (0.0-0.3); EOSINOPHILS % (AUTO) 1 % (0-10); LYMPHOCYTES # (AUTO) 2.1 X 10^3 (1.0-4.0); LYMPHOCYTES % (AUTO) 11 % (12-44); MEAN CORPUSCULAR HEMOGLOBIN 27 PG (25-34); MEAN CORPUSCULAR HGB CONC 32 G/DL (32-36); MEAN CORPUSCULAR VOLUME 85 FL (80-99); MEAN PLATELET VOLUME 8.9 FL (7.4-10.4); MONOCYTES # (AUTO) 2.1 X 10^3 (0.0-1.0); MONOCYTES % (AUTO) 11 % (0-12); NEUTROPHILS # (AUTO) 15.3 X 10^3 (1.8-7.8); NEUTROPHILS % (AUTO) 78 % (42-75); PLATELET COUNT 526 10^3/uL (130-400); RED BLOOD COUNT 2.81 10^6/uL (4.35-5.85); RED CELL DISTRIBUTION WIDTH 17.6 % (10.0-14.5); WHITE BLOOD COUNT 19.6 10^3/uL (4.3-11.0)
[2016-12-16 04:30] LABS: ABG BASE EXCESS -0.6 MMOL/L (-2.5-2.5); ABG HCO3 23 MMOL/L (23-27); ABG OXYGEN SATURATION 98 % (94-100); ABG PCO2 32 MMHG (35-45); ABG PH 7.46 (7.37-7.43); ABG PO2 76 MMHG (79-93); ABG TCO2 23.9 MMOL/L (21.0-31.0)
[2016-12-16 04:33] LABS: ALLENS TEST ART LINE; PATIENT TEMP 97.1
[2016-12-16 05:13] LABS: ALBUMIN 1.9 G/DL (3.2-4.5); ANION GAP 6 MMOL/L (5-14); BLOOD UREA NITROGEN 8 MG/DL (7-18); BUN/CREATININE RATIO 9; CALCIUM 7.1 MG/DL (8.5-10.1); CARBON DIOXIDE 23 MMOL/L (21-32); CHLORIDE 106 MMOL/L (98-107); CREATININE SERUM 0.85 MG/DL (0.60-1.30); GFR ESTIMATED > 60; GLUCOSE 115 MG/DL (70-105); MAGNESIUM 1.8 MG/DL (1.8-2.4); PHOSPHORUS 2.5 MG/DL (2.3-4.7); POTASSIUM 3.6 MMOL/L (3.6-5.0); SODIUM 135 MMOL/L (135-145)
[2016-12-16] MEDS: KCL 20 MEQ TAB (K-DUR) PO SCH (05:30)
[2016-12-16] MEDS: MAGNESIUM 1 GM/100 ML IVPB 100 ML IV SCH (05:30)
[2016-12-16] MEDS: inSUlin ASPART (NovoLOG) 1 UNIT/0.01 ML (CHARGE PER UNIT) SC SCH ×6 (05:30→20:00)
[2016-12-16] MEDS: PIPERACILLIN/TAZOBACTAM 4.5 GM/NS 100 ML IVPB IV SCH ×6 (05:40→22:13)
[2016-12-16] MEDS: metroNIDAZOLE 500MG/100ML IVPB 100 ML IV SCH ×3 (05:40→22:09)
--- NOTE | 2016-12-16 07:14 | Diagnostic Imaging Report ---
Portable upright radiograph of the chest. INDICATION: Check tube placement. COMPARISON: 12/15/16. FINDINGS: There is improved aeration of the lungs after intubation. ET tube is in good position. NG tube and right IJ lines are stable. There are infiltrates seen predominantly interstitial in the lungs. There is mild left basilar infiltrate or atelectasis and small effusion. IMPRESSION: Lines and tubes are in good position. There are interstitial infiltrates may relate to vascular congestion or atypical pneumonia. Mild left basilar infiltrate or atelectasis is also seen. Dictated by: Dictated on workstation # [id number]
--- NOTE | 2016-12-16 07:22 | Pulmonary Progress Note ---
Subjective Subjective/Events-last exam no complications Exam Exam Vital Signs Date Time Temp Pulse Resp B/P (MAP) Pulse Ox O2 Delivery O2 Flow Rate FiO2 12/16/16 06:20 90 20 95 21 12/16/16 06:00 87 16 120/54 96 Mechanical Ventilator 21.00 12/16/16 05:00 85 15 129/57 94 Mechanical Ventilator 21.00 12/16/16 04:30 18 12/16/16 04:25 90 17 96 30 12/16/16 04:12 95.9 92 18 111/62 97 Mechanical Ventilator 21.00 12/16/16 04:00 21 12/16/16 04:00 94 14 121/58 96 Mechanical Ventilator 21.00 12/16/16 03:00 96 14 114/54 95 Mechanical Ventilator 21.00 12/16/16 02:09 92 18 97 30 12/16/16 02:00 90 8 113/54 95 Mechanical Ventilator 21.00 12/16/16 01:00 87 8 110/51 96 Mechanical Ventilator 21.00 12/16/16 01:00 82 12/16/16 00:14 95.9 82 16 107/51 95 Mechanical Ventilator 21.00 12/16/16 00:01 82 18 99 30 12/16/16 00:00 84 17 89/51 94 Mechanical Ventilator 21.00 12/16/16 00:00 21 12/15/16 23:00 84 16 95/50 Mechanical Ventilator 30.00 12/15/16 22:18 86 16 99 40 12/15/16 22:01 96.5 108 16 135/71 99 Mechanical Ventilator 50.00 12/15/16 22:00 93 15 112/72 Mechanical Ventilator 30.00 12/15/16 21:00 104 16 128/82 Mechanical Ventilator 30.00 12/15/16 20:13 96.5 108 16 135/71 99 Mechanical Ventilator 50.00 12/15/16 20:00 50 12/15/16 20:00 110 16 137/83 100 Mechanical Ventilator 50.00 12/15/16 19:15 109 16 100 50 12/15/16 19:00 109 12/15/16 15:00 97 18 96/56 97 Nasal Cannula 2.00 12/15/16 14:00 105 10 91/51 Nasal Cannula 2.00 12/15/16 13:45 96 2.00 12/15/16 13:00 101 17 94/52 Nasal Cannula 2.00 12/15/16 13:00 103 12/15/16 12:00 96 2.00 12/15/16 12:00 2.00 12/15/16 12:00 100.2 Nasal Cannula 2.00 12/15/16 11:00 101 18 85/50 Nasal Cannula 2.00 12/15/16 10:22 104 98/59 (72) 12/15/16 10:00 102 19 97/56 Nasal Cannula 2.00 12/15/16 09:00 104 12 104/60 95 Nasal Cannula 2.00 12/15/16 08:45 97 2.00 12/15/16 08:37 100.0 Nasal Cannula 2.00 12/15/16 08:21 2.00 12/15/16 08:00 102 12 102/61 96 Room Air 12/15/16 07:34 95 2.00 I & O 12/16/16 07:00 Intake Total 5949 ml Output Total 950 ml Balance 4999 ml General Appearance: WD/WN, Chronically ill, Moderate Distress HEENT: PERRL/EOMI, Normal ENT Inspection, Pharynx Normal Neck: Full Range of Motion, Normal Inspection, Non Tender, Supple, Carotid Bruit Respiratory: Chest Non Tender, Lungs Clear, Normal Breath Sounds, No Accessory Muscle Use, No Respiratory Distress Cardiovascular: Regular Rate, Rhythm, No Edema, No Gallop, No JVD, No Murmur, Normal Peripheral Pulses Capillary Refill: Less Than 3 Seconds Gastrointestinal: no organomegaly, distended, guarding (mostly voluntary), rebound, tenderness (right>left, but diffuse) Extremity: Normal Capillary Refill, Normal Inspection, Normal Range of Motion, Non Tender, No Calf Tenderness, No Pedal Edema Neurologic/Psychiatric: Alert, Oriented x3, No Motor/Sensory Deficits, Depressed Affect Skin: Normal Color, Warm/Dry Lymphatic: No Adenopathy Results Lab Laboratory Tests 12/14/16 14:25 12/15/16 03:45 12/15/16 22:40 12/16/16 04:00 Assessment/Plan Assessment/Plan Infectious vs ischemic colitis s/p Extended Left Hemicolectomy with end Colostomy /Pam's Procedure - Cdiff toxin pending -Flagyl, zosyn Acute respiratory failure post surgery -Ventilator support -Decrease Diprivan Severe Sepsis with septic shock - levophed Anemia -transfuse 1 unit PRBC since pt is hypotensive LE Bilateral cellulitis -monitor and wound care following Clinical Quality Measures DVT/VTE Risk/Contraindication: Risk Factor Score Per Nursin RFS Level Per Nursing on Admit: 4+=Very High CHAYITO DE LA ROSA DO Dec 16, 2016 07:22
--- NOTE | 2016-12-16 07:42 | Diagnostic Imaging Report ---
Portable upright radiograph of the chest. INDICATION: Dyspnea. Ventilator. Abdominal surgery yesterday. FINDINGS: NG tube, ET tube, and right IJ lines are all stable. There is increased predominantly interstitial with increased bibasilar atelectasis or infiltrate. There is a small left effusion suggested. The heart size is normal. There is air under the diaphragm. The ICU nurse confirmed that the patient had abdominal surgery yesterday. IMPRESSION: Increasing bibasilar atelectasis or infiltrate. Air under the diaphragm relates to abdominal surgery performed yesterday. Dictated by: Dictated on workstation # [id number]
[2016-12-16] MEDS: CHLORHEXIDINE 0.12% SOLN 15 ML (PERIDEX) UDC PO SCH ×2 (07:50→21:00)
[2016-12-16] MEDS: PANTOPRAZOLE 40 MG/10 ML (PROTONIX) VIAL IV SCH (07:51)
[2016-12-16] MEDS: RT-ALBUTEROL/IPRATROPIUM 3 ML (DUONEB) VIAL INH SCH ×3 (08:34→21:24)
[2016-12-16] MEDS ORDERED: FAMOTIDINE 20 MG (PEPCID) TABLET PO SCH (09:00)
[2016-12-16] MEDS ORDERED: FAMOTIDINE 20MG/2ML IV (PEPCID) ONE (09:22)
[2016-12-16] MEDS ORDERED: fentaNYL PCA 300 MCG/30 ML VIAL ONE ×2 (09:38→23:46)
[2016-12-16] MEDS ORDERED: fentaNYL INJECTION 1,000 MCG in NS (IVPB) 80 ML IV SCH (09:45)
[2016-12-16] MEDS: FAMOTIDINE 20MG/2ML IV (PEPCID) IV SCH ×2 (09:55→21:29)
[2016-12-16] MEDS ORDERED: DEXMEDETOMIDINE PRE-MIX 100 ML IV SCH (10:15)
[2016-12-16] MEDS ORDERED: DEXMEDETOMIDINE INJECTION 400 MCG in NS (IVPB) 96 ML IV SCH (10:43)
--- NOTE | 2016-12-16 10:47 | Progress Note ---
Subjective Subjective/Events-last exam Pt seen and examined, on vent appears comfortable and actually asking for tube to be removed. Minimal abdominal pain, controlled. Review of Systems General: No Chills, No Night Sweats Pulmonary: No Dyspnea, No Cough Cardiovascular: No: Chest Pain Gastrointestinal: No: Nausea, Vomiting Objective Exam Vital Signs Date Time Temp Pulse Resp B/P (MAP) Pulse Ox O2 Delivery O2 Flow Rate FiO2 12/16/16 10:11 85 18 97 21 12/16/16 09:31 104/51 12/16/16 09:15 96.3 85 16 129/76 96 21 12/16/16 08:55 96.7 85 16 113/51 94 21 12/16/16 08:34 84 18 96 21 12/16/16 08:06 96.9 Mechanical Ventilator 21.00 12/16/16 08:00 21 12/16/16 07:00 84 12/16/16 06:20 90 20 95 21 12/16/16 06:00 87 16 120/54 96 Mechanical Ventilator 21.00 12/16/16 05:00 85 15 129/57 94 Mechanical Ventilator 21.00 12/16/16 04:30 18 12/16/16 04:25 90 17 96 30 12/16/16 04:12 95.9 92 18 111/62 97 Mechanical Ventilator 21.00 12/16/16 04:00 21 12/16/16 04:00 94 14 121/58 96 Mechanical Ventilator 21.00 12/16/16 03:00 96 14 114/54 95 Mechanical Ventilator 21.00 12/16/16 02:09 92 18 97 30 12/16/16 02:00 90 8 113/54 95 Mechanical Ventilator 21.00 12/16/16 01:00 87 8 110/51 96 Mechanical Ventilator 21.00 12/16/16 01:00 82 12/16/16 00:14 95.9 82 16 107/51 95 Mechanical Ventilator 21.00 12/16/16 00:01 82 18 99 30 12/16/16 00:00 84 17 89/51 94 Mechanical Ventilator 21.00 12/16/16 00:00 21 12/15/16 23:00 84 16 95/50 Mechanical Ventilator 30.00 12/15/16 22:18 86 16 99 40 12/15/16 22:01 96.5 108 16 135/71 99 Mechanical Ventilator 50.00 12/15/16 22:00 93 15 112/72 Mechanical Ventilator 30.00 12/15/16 21:00 104 16 128/82 Mechanical Ventilator 30.00 12/15/16 20:13 96.5 108 16 135/71 99 Mechanical Ventilator 50.00 12/15/16 20:00 50 12/15/16 20:00 110 16 137/83 100 Mechanical Ventilator 50.00 12/15/16 19:15 109 16 100 50 12/15/16 19:00 109 12/15/16 15:00 97 18 96/56 97 Nasal Cannula 2.00 12/15/16 14:00 105 10 91/51 Nasal Cannula 2.00 12/15/16 13:45 96 2.00 12/15/16 13:00 101 17 94/52 Nasal Cannula 2.00 12/15/16 13:00 103 12/15/16 12:00 96 2.00 12/15/16 12:00 2.00 12/15/16 12:00 100.2 Nasal Cannula 2.00 12/15/16 11:00 101 18 85/50 Nasal Cannula 2.00 I & O 12/16/16 07:00 Intake Total 5949 ml Output Total 950 ml Balance 4999 ml Capillary Refill : Less Than 3 Seconds General Appearance: WD/WN, Chronically ill, Moderate Distress HEENT: PERRL/EOMI, Normal ENT Inspection, Pharynx Normal Neck: Carotid Bruit Respiratory: Lungs Clear, Normal Breath Sounds, No Respiratory Distress Cardiovascular: Regular Rate, Rhythm, No Edema, No Gallop, No JVD, No Murmur, Normal Peripheral Pulses Gastrointestinal: other (Incision is C/D/I. 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 Skin: Normal Color, Warm/Dry Lymphatic: No Adenopathy Results Lab Laboratory Tests 12/15/16 19:40: Magnesium Level 1.8 12/15/16 22:40: Blood Gas Puncture Site Maya PARRISH AVA, Blood Gas Patient Temperature 96.0, Arterial Blood pH 7.42, Arterial Blood Partial Pressure CO2 36, Arterial Blood Partial Pressure O2 103H, Arterial Blood HCO3 23, Arterial Blood Total CO2 24.4 , Arterial Blood Oxygen Saturation 99, Arterial Blood Base Excess -1.0, Jermaine Test ART LINE, Blood Gas Ventilator Setting YES, Blood Gas Inspired Oxygen 30% FIO2, Potassium Level 3.2L, Lactic Acid Level 1.43, Albumin 1.6L 12/16/16 00:35: Glucometer 130H 12/16/16 04:00: Magnesium Level 1.8, Blood Gas Puncture Site Maya ESCALANTE, Blood Gas Patient Temperature 97.1, Arterial Blood pH 7.46H, Arterial Blood Partial Pressure CO2 32L, Arterial Blood Partial Pressure O2 76L, Arterial Blood HCO3 23, Arterial Blood Total CO2 23.9, Arterial Blood Oxygen Saturation 98, Arterial Blood Base Excess -0.6, Jermaine Test ART LINE, Blood Gas Ventilator Setting YES, Blood Gas Inspired Oxygen 21% FIO2, Potassium Level 3.6, Lactic Acid Level 1.19, Albumin 1.9L, White Blood Count 19.6H, Red Blood Count 2.81L, Hemoglobin 7.7L, Hematocrit 24L, Mean Corpuscular Volume 85, Mean Corpuscular Hemoglobin 27, Mean Corpuscular Hemoglobin Concent 32, Red Cell Distribution Width 17.6H, Platelet Count 526H, Mean Platelet Volume 8.9, Neutrophils (%) (Auto) 78H, Lymphocytes (%) (Auto) 11L, Monocytes (%) (Auto) 11, Eosinophils (%) (Auto) 1, Basophils (%) (Auto) 0, Neutrophils # (Auto) 15.3H, Lymphocytes # (Auto) 2.1, Monocytes # (Auto) 2.1H, Eosinophils # (Auto) 0.1, Basophils # (Auto) 0.0, Sodium Level 135, Chloride Level 106, Carbon Dioxide Level 23, Anion Gap 6, Blood Urea Nitrogen 8, Creatinine 0.85, Estimat Glomerular Filtration Rate > 60 , BUN/Creatinine Ratio 9, Glucose Level 115H, Calcium Level 7.1L, Phosphorus Level 2.5 12/16/16 07:46: Glucometer 113H Microbiology 12/14/16 Blood Culture - Preliminary, Resulted No growth 12/15/16 C. difficile GDH Antigen & Toxins - Final, Complete 12/14/16 Urine Culture - Final, Complete Assessment/Plan Assessment/Plan Assessment/Plan S/P Extended Left Hemicolectomy with ostomy creation On vent C. Diff Plan to extubate (discussed with Dr. Perales). Weaning parameters ordered again , already passed once. Stop propofol. Supportive Care, continue philippe for accurate I&O's. Continue IV ABX for C. Diff Clinical Quality Measures DVT/VTE Risk/Contraindication: Risk Factor Score Per Nursin RFS Level Per Nursing on Admit: 4+=Very High NATALIYA BOSWELL DO Dec 16, 2016 10:47
--- NOTE | 2016-12-16 11:44 | Progress Note-Hospitalist ---
Progress Note HPI/CC on Admission CC: Fever with lethargy HPI: This is a 71ypWM pt of Dr. Grajeda that is known to me from prior admissions that just completed NH 20 days of therapy when he presented to ER with fever and weakness. Pt was found to have severe sepsis. Pt was given appropriate IVF per protocol ABX. Pt was placed on triple antibiotic therapy of : Zosyn, Vancomycin, and Levaquin. Pt has EF of 20%. Cardiology and Pulmonology are consulted. Pt was placed on pressor therapy after center line placed. 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 Pt had C. diff w/pseudomembranous colitis. Pt is going to have colon resection. CT scan revealed pseudomembranous colitis. Pt needs to speak with Cardiology and Pulmonology. Palliative Care Review: Pt has pseudomembranous colitis and is scheduled for surgery. Pt is in bad shape. Patient Interview: Pt was informed that he has pneumonia and colitis. Pt states he is in pain currently. Pt states his stomach is in pain. Pt states he was fitted for a life vest. Physical exam was stable. Pt states he is breathing well currently. Pt states he spoke with Dr. Jaime. Pt states he will do what he needs to do to feel better. Scribed by Tereso Guerrero under the direct supervision of Dr. Brown. 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 difficile colitis Overall debility requiring mcc placement just discharged Diagonsis/Assessment & Plan Chart Review: No fever, Vitals stable, WBC down to 19, Hgb 7.7, ABG 7.46/32/76, CMP normal Dr. Jaime Review: Pt had perforation. Pt colon is normal looking from the outside but was not from the inside. Pt was doing fine yesterday off of vent. 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 Patient Interview: Pt was told his tube will be removed soon. Pt states he is in pain currently. Blood work and BP look good. Physical exam was stable. Pt vent setting will be changed to see if tube can be pulled. Scribed by Tereso Guerrero under the direct supervision of Dr. Brown. 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 difficile colitis Overall debility requiring mcc placement just discharged Plan: Very poor prognosis going into possible colon resection Likely will be vent dependent Severe sepsis requiring aggressive IV fluid resuscitation in ejection fraction of 20 percent likely will ultimately cause volume overload Antibiotics to continue Poor prognosis Palliative care OCTAVIO BROWN DO Dec 16, 2016 11:44
[2016-12-16 11:50] LABS: ABG BASE EXCESS -1.5 MMOL/L (-2.5-2.5); ABG HCO3 22 MMOL/L (23-27); ABG OXYGEN SATURATION 99 % (94-100); ABG PCO2 31 MMHG (35-45); ABG PH 7.46 (7.37-7.43); ABG PO2 84 MMHG (79-93); ABG TCO2 23.2 MMOL/L (21.0-31.0)
[2016-12-16 11:53] LABS: PATIENT TEMP 96
[2016-12-16] MEDS: morphine INJ 4 MG/ML 1 ML (VIAL/SYRINGE) IVP PRN ×5 (12:26→22:38)
--- NOTE | 2016-12-16 13:29 | Anesthesia-General Post-Op ---
General Patient Condition Mental Status/LOC: Same as Preop Cardiovascular: Satisfactory Nausea/Vomiting: Absent Respiratory: Satisfactory Pain: Controlled Complications: Absent Post Op Complications Complications None. Patient extubated at approximately around Noon today. Room air 95%, SpO2 Follow Up Care/Instructions Patient Instructions None needed. Anesthesia/Patient Condition Patient Condition Patient is doing well, no complaints, stable vital signs, no apparent adverse anesthesia problems. No complications reported per nursing. YOUNG MARTINEZ CRNA Dec 16, 2016 13:29
[2016-12-16] MEDS: ENOXAPARIN 40 MG/0.4 ML (LOVENOX) SYR SC SCH (14:31)
[2016-12-16] MEDS ORDERED: FUROSEMIDE 40 MG/4 ML INJ (LASIX) IVP NR (15:45)
--- NOTE | 2016-12-16 15:51 | Progress Note-Cardiology ---
Cardiology SOAP Progress Note Subjective: Denies cp Notes abd pain Notes mod shortness of breath Denies palp or syncope Objective: I&O/Vital Signs Vital Sign - Last 12Hours 12/16/16 12/16/16 12/16/16 12/16/16 04:00 04:00 04:12 04:25 Temp 95.9 Pulse 94 92 90 Resp 14 18 17 B/P (MAP) 121/58 111/62 Pulse Ox 96 97 96 O2 Delivery Mechanical Ventilator Mechanical Ventilator O2 Flow Rate 21.00 21.00 FiO2 21 30 12/16/16 12/16/16 12/16/16 12/16/16 04:30 05:00 06:00 06:20 Pulse 85 87 90 Resp 18 15 16 20 B/P (MAP) 129/57 120/54 Pulse Ox 94 96 95 O2 Delivery Mechanical Ventilator Mechanical Ventilator O2 Flow Rate 21.00 21.00 FiO2 21 12/16/16 12/16/16 12/16/16 12/16/16 07:00 08:00 08:06 08:34 Temp 96.9 Pulse 84 84 Resp 18 B/P (MAP) Pulse Ox 96 O2 Delivery Mechanical Ventilator O2 Flow Rate 21.00 FiO2 21 21 12/16/16 12/16/16 12/16/16 12/16/16 08:55 09:15 09:31 10:11 Temp 96.7 96.3 Pulse 85 85 85 Resp 16 16 18 B/P (MAP) 113/51 129/76 104/51 Pulse Ox 94 96 97 FiO2 21 21 12/16/16 12/16/16 12/16/16 12/16/16 10:48 11:00 12:05 12:05 Temp 96.0 96.1 Pulse 86 Resp 11 12 B/P (MAP) 119/57 Pulse Ox 97 98 97 98 O2 Delivery Room Air FiO2 21 12/16/16 12/16/16 12/16/16 12:05 13:00 14:01 Pulse 88 Pulse Ox 97 93 Intake and Output 12/16/16 00:00 Intake Total 1295 ml Output Total 325 ml Balance 970 ml Weight (Pounds): 186 Weight (Ounces): 5.0 Weight (Calculated Kilograms): [id number] Constitutional: AAO x 3, well-developed, well-nourished, other (appears fatigued) Respiratory: No accessory muscle use, other (good air entry, but diminished at the bases) Cardiovascular: regular rate-rhythm, S1 and S2, systolic murmur (soft JIMENA at card base) Gastrointestional: other (post op; we did not attemp palp; no bs heard) Extremities: No clubbing, No cyanosis, significant edema Neurologic/Psychiatric: oriented x 3, grossly intact Skin: No rash on exposed areas Results/Procedures: Labs Laboratory Tests 12/15/16 19:40: Magnesium Level 1.8 12/15/16 22:40: Blood Gas Puncture Site L FRANCOIS ESCALANTE, Blood Gas Patient Temperature 96.0, Arterial Blood pH 7.42, Arterial Blood Partial Pressure CO2 36, Arterial Blood Partial Pressure O2 103H, Arterial Blood HCO3 23, Arterial Blood Total CO2 24.4 , Arterial Blood Oxygen Saturation 99, Arterial Blood Base Excess -1.0, Jermaine Test ART LINE, Blood Gas Ventilator Setting YES, Blood Gas Inspired Oxygen 30% FIO2, Potassium Level 3.2L, Lactic Acid Level 1.43, Albumin 1.6L 12/16/16 00:35: Glucometer 130H 12/16/16 04:00: Magnesium Level 1.8, Blood Gas Puncture Site L FRANCOIS ESCALANTE, Blood Gas Patient Temperature 97.1, Arterial Blood pH 7.46H, Arterial Blood Partial Pressure CO2 32L, Arterial Blood Partial Pressure O2 76L, Arterial Blood HCO3 23, Arterial Blood Total CO2 23.9, Arterial Blood Oxygen Saturation 98, Arterial Blood Base Excess -0.6, Jermaine Test ART LINE, Blood Gas Ventilator Setting YES, Blood Gas Inspired Oxygen 21% FIO2, Potassium Level 3.6, Lactic Acid Level 1.19, Albumin 1.9L, White Blood Count 19.6H, Red Blood Count 2.81L, Hemoglobin 7.7L, Hematocrit 24L, Mean Corpuscular Volume 85, Mean Corpuscular Hemoglobin 27, Mean Corpuscular Hemoglobin Concent 32, Red Cell Distribution Width 17.6H, Platelet Count 526H, Mean Platelet Volume 8.9, Neutrophils (%) (Auto) 78H, Lymphocytes (%) (Auto) 11L, Monocytes (%) (Auto) 11, Eosinophils (%) (Auto) 1, Basophils (%) (Auto) 0, Neutrophils # (Auto) 15.3H, Lymphocytes # (Auto) 2.1, Monocytes # (Auto) 2.1H, Eosinophils # (Auto) 0.1, Basophils # (Auto) 0.0, Sodium Level 135, Chloride Level 106, Carbon Dioxide Level 23, Anion Gap 6, Blood Urea Nitrogen 8, Creatinine 0.85, Estimat Glomerular Filtration Rate > 60 , BUN/Creatinine Ratio 9, Glucose Level 115H, Calcium Level 7.1L, Phosphorus Level 2.5 12/16/16 07:46: Glucometer 113H 12/16/16 11:35: Blood Gas Puncture Site ARTLINE, Blood Gas Patient Temperature 96, Arterial Blood pH 7.46H, Arterial Blood Partial Pressure CO2 31L, Arterial Blood Partial Pressure O2 84, Arterial Blood HCO3 22L, Arterial Blood Total CO2 23.2, Arterial Blood Oxygen Saturation 99, Arterial Blood Base Excess -1.5, Jermaine Test N/A, Blood Gas Ventilator Setting YES, Blood Gas Inspired Oxygen 21% FI02 12/16/16 12:31: Glucometer 99 Microbiology 12/14/16 Blood Culture - Preliminary, Resulted No growth 12/15/16 C. difficile GDH Antigen & Toxins - Final, Complete 12/14/16 Urine Culture - Final, Complete Laboratory Tests 12/15/16 03:45 12/15/16 22:40 12/16/16 04:00 A/P: Assessment: S/p L hemicolectomy and colostomy on 12/15/16 Sepsis due to pseudomembranous colitis and colon perf treated with surg (see surgical report of Dr Jaime's dated 12/15/16) Congestive heart failure, nonischemic cardiomyopathy, acute on chronic left ventricular systolic dysfunction with most recent ejection fraction improved to 50 percent. Has been treated with beta gurpreet and Entresto. Status post acute renal failure, improved Peripheral vascular disease with history of nonhealing wounds bilaterally. Peripheral angiogram done 12/04/16 revealed moderate atherosclerotic disease on the left lower extremity, the anterior tibial artery is severely diseased on the left lower extremity but the ulcer on the left lower extremity has healed. Medical therapy is recommended. Moderate disease of the right lower extremity with good flow, with three-vessel flow down to the foot. . Small infrarenal abdominal aortic aneurysm noted during peripheral angiogram Hyperlipidemia, hold statin for now. History of pulmonary hypertension History of rheumatoid arthritis H/o COPD Tobaccoism, reported to have quit earlier this year History of chronic narcotic use Plan: Complex management due to multiple comorbidities and multisystem involvement Given h/o cardiomyopathy and CHF, we will monitor closely for decompensation of CHF. Currently exhibiting considerable leg edema and notes some shortness of breath. Will reduce iv fluids and give low dose diuretic therapy Monitor labs closely BUTCH JENKINS MD FACP FACC CCDS Dec 16, 2016 15:51
--- NOTE | 2016-12-16 19:11 | Wound Care Progress Note ---
Subjective Subjective Subjective/Events-last exam The patient is a 71-year-old male, known to me from previous admissions, who was admitted recently with septic shock. He is noted to have a superficial lesion on the right medial upper calf. He is not intubated at the time of this interview. Past medical history: Congestive heart failure pulmonary hypertension coronary artery disease pneumonia Social history: Patient was recently discharged from a custodial. Review of Systems General: Fatigue Pulmonary: Dyspnea Cardiovascular: Chest Pain Objective Exam Last Set of Vital Signs Vital Signs Date Time Temp Pulse Resp B/P (MAP) Pulse Ox O2 Delivery O2 Flow Rate FiO2 12/16/16 18:00 94 11 145/63 98 Room Air 12/16/16 12:05 96.1 12/16/16 11:00 21 12/16/16 11:00 21.00 Capillary Refill : Less Than 3 Seconds I&O Intake and Output 12/16/16 00:00 Intake Total 6129 ml Output Total 975 ml Balance 5154 ml Intake Oral 480 ml IV Total 5649 ml Output Urine Total 975 ml General: Alert, Cooperative HEENT: Atraumatic Lungs: Normal Air Movement Abdomen: Soft Skin: Other (right anterior calf wound --- 2.7 x 1.8 x 0.1 cm, 100% eschar, no drainage.) Results Lab Laboratory Tests 12/15/16 19:40: Magnesium Level 1.8 12/15/16 22:40: Blood Gas Puncture Site L FRANCOIS RAENE, Blood Gas Patient Temperature 96.0, Arterial Blood pH 7.42, Arterial Blood Partial Pressure CO2 36, Arterial Blood Partial Pressure O2 103H, Arterial Blood HCO3 23, Arterial Blood Total CO2 24.4 , Arterial Blood Oxygen Saturation 99, Arterial Blood Base Excess -1.0, Jermaine Test ART LINE, Blood Gas Ventilator Setting YES, Blood Gas Inspired Oxygen 30% FIO2, Potassium Level 3.2L, Lactic Acid Level 1.43, Albumin 1.6L 12/16/16 00:35: Glucometer 130H 12/16/16 04:00: Magnesium Level 1.8, Blood Gas Puncture Site L FRANCOIS RAENE, Blood Gas Patient Temperature 97.1, Arterial Blood pH 7.46H, Arterial Blood Partial Pressure CO2 32L, Arterial Blood Partial Pressure O2 76L, Arterial Blood HCO3 23, Arterial Blood Total CO2 23.9, Arterial Blood Oxygen Saturation 98, Arterial Blood Base Excess -0.6, Jermaine Test ART LINE, Blood Gas Ventilator Setting YES, Blood Gas Inspired Oxygen 21% FIO2, Potassium Level 3.6, Lactic Acid Level 1.19, Albumin 1.9L, White Blood Count 19.6H, Red Blood Count 2.81L, Hemoglobin 7.7L, Hematocrit 24L, Mean Corpuscular Volume 85, Mean Corpuscular Hemoglobin 27, Mean Corpuscular Hemoglobin Concent 32, Red Cell Distribution Width 17.6H, Platelet Count 526H, Mean Platelet Volume 8.9, Neutrophils (%) (Auto) 78H, Lymphocytes (%) (Auto) 11L, Monocytes (%) (Auto) 11, Eosinophils (%) (Auto) 1, Basophils (%) (Auto) 0, Neutrophils # (Auto) 15.3H, Lymphocytes # (Auto) 2.1, Monocytes # (Auto) 2.1H, Eosinophils # (Auto) 0.1, Basophils # (Auto) 0.0, Sodium Level 135, Chloride Level 106, Carbon Dioxide Level 23, Anion Gap 6, Blood Urea Nitrogen 8, Creatinine 0.85, Estimat Glomerular Filtration Rate > 60 , BUN/Creatinine Ratio 9, Glucose Level 115H, Calcium Level 7.1L, Phosphorus Level 2.5 12/16/16 07:46: Glucometer 113H 12/16/16 11:35: Blood Gas Puncture Site ARTLINE, Blood Gas Patient Temperature 96, Arterial Blood pH 7.46H, Arterial Blood Partial Pressure CO2 31L, Arterial Blood Partial Pressure O2 84, Arterial Blood HCO3 22L, Arterial Blood Total CO2 23.2, Arterial Blood Oxygen Saturation 99, Arterial Blood Base Excess -1.5, Jermaine Test N/A, Blood Gas Ventilator Setting YES, Blood Gas Inspired Oxygen 21% FI02 12/16/16 12:31: Glucometer 99 12/16/16 18:33: Glucometer 92 Microbiology 12/14/16 Blood Culture - Preliminary, Resulted No growth 12/15/16 C. difficile GDH Antigen & Toxins - Final, Complete 12/14/16 Urine Culture - Final, Complete Assessment/Plan Assessment/Plan Assessment/Plan 1. Superficial ulceration, chronic of right anterior calf. Plan: Will leave open to the air and observe for now, with no dressing needed. RAPHAEL CASTELAN MD Dec 16, 2016 19:11
[2016-12-16] MEDS: CATHETER FLUSH 10 ML SYR IV PRN (21:30)
[2016-12-17] VITALS (23 sets, daily range): BP systolic 92–141; BP diastolic 59–86
[2016-12-17] MEDS: morphine INJ 4 MG/ML 1 ML (VIAL/SYRINGE) IVP PRN ×2 (01:51→09:08)
[2016-12-17] MEDS: VANCOMYCIN ORAL 250 MG/5 ML 60 ML PO SCH ×8 (01:53→20:31)
[2016-12-17] MEDS: inSUlin ASPART (NovoLOG) 1 UNIT/0.01 ML (CHARGE PER UNIT) SC SCH ×5 (04:00→15:48)
[2016-12-17 04:23] LABS: BASOPHILS # (AUTO) 0.1 10^3/uL (0.0-0.1); BASOPHILS % (AUTO) 0 % (0-10); EOSINOPHILS % (AUTO) 0 % (0-10); LYMPHOCYTES # (AUTO) 2.1 X 10^3 (1.0-4.0); LYMPHOCYTES % (AUTO) 9 % (12-44); MEAN CORPUSCULAR HEMOGLOBIN 28 PG (25-34); MEAN CORPUSCULAR HGB CONC 34 G/DL (32-36); MEAN CORPUSCULAR VOLUME 83 FL (80-99); MEAN PLATELET VOLUME 8.7 FL (7.4-10.4); MONOCYTES # (AUTO) 1.9 X 10^3 (0.0-1.0); MONOCYTES % (AUTO) 8 % (0-12); NEUTROPHILS # (AUTO) 20.6 X 10^3 (1.8-7.8); NEUTROPHILS % (AUTO) 84 % (42-75); PLATELET COUNT 466 10^3/uL (130-400); RED BLOOD COUNT 3.35 10^6/uL (4.35-5.85); RED CELL DISTRIBUTION WIDTH 17.8 % (10.0-14.5); WHITE BLOOD COUNT 24.7 10^3/uL (4.3-11.0)
[2016-12-17] MEDS: NS IV 1000 ML 1,000 ML IV SCH ×2 (04:24→19:13)
[2016-12-17 04:42] LABS: ANION GAP 8 MMOL/L (5-14); BLOOD UREA NITROGEN 7 MG/DL (7-18); BUN/CREATININE RATIO 9; CALCIUM 6.7 MG/DL (8.5-10.1); CARBON DIOXIDE 22 MMOL/L (21-32); CHLORIDE 108 MMOL/L (98-107); CREATININE SERUM 0.77 MG/DL (0.60-1.30); GFR ESTIMATED > 60; GLUCOSE 80 MG/DL (70-105); MAGNESIUM 1.5 MG/DL (1.8-2.4); PHOSPHORUS 1.9 MG/DL (2.3-4.7); POTASSIUM 3.1 MMOL/L (3.6-5.0); SODIUM 138 MMOL/L (135-145)
[2016-12-17 05:06] LABS: BAND NEUTROPHILS 3 %; BASOPHILS % (MANUAL) 0 %; EOSINOPHILS % (MANUAL) 0 %; HYPOCHROMASIA SLIGHT; LYMPHOCYTES % (MANUAL) 5 %; NEUTROPHILS % (MANUAL) 82 %; POLYCHROMASIA SLIGHT; REACTIVE LYMPHOCYTES 2 %
[2016-12-17 05:07] LABS: ANISOCYTOSIS MODERATE; MICROCYTOSIS SLIGHT; TARGET CELLS SLIGHT
[2016-12-17] MEDS: POTASSIUM CL 10MEQ/50ML IVPB 50 ML IV SCH ×5 (05:31→09:01)
[2016-12-17] MEDS: MAGNESIUM 1 GM/100 ML IVPB 100 ML IV SCH ×3 (05:32→06:28)
[2016-12-17] MEDS: KCL 20 MEQ TAB (K-DUR) PO SCH (06:00)
[2016-12-17] MEDS: PIPERACILLIN/TAZOBACTAM 4.5 GM/NS 100 ML IVPB IV SCH ×6 (06:13→22:05)
[2016-12-17] MEDS: metroNIDAZOLE 500MG/100ML IVPB 100 ML IV SCH ×3 (06:13→22:05)
[2016-12-17] MEDS: RT-ALBUTEROL/IPRATROPIUM 3 ML (DUONEB) VIAL INH SCH ×3 (07:25→20:04)
[2016-12-17] MEDS: CHLORHEXIDINE 0.12% SOLN 15 ML (PERIDEX) UDC PO SCH ×2 (09:00→20:31)
[2016-12-17] MEDS: FAMOTIDINE 20MG/2ML IV (PEPCID) IV SCH ×2 (09:01→20:31)
[2016-12-17 09:12] LABS: CALCIUM IONIZED 1.07 mmol/L (1.16-1.32); CORRECTED IONIZED CALCIUM 1.08 mmol/L (1.16-1.32)
[2016-12-17] MEDS ORDERED: fentaNYL INJECTION 1,000 MCG in NS (IVPB) 80 ML IV SCH (11:18)
[2016-12-17] MEDS: NOREPINEPHRINE 4 MG in D5W 250 ML (IVPB) 250 ML IV SCH ×2 (11:28→23:54)
--- NOTE | 2016-12-17 11:36 | Progress Note (SOAP) ---
Subjective Subjective/Events-last exam doing ok. slight abdominal pain. ostomy functional. no cough or sputum production. Objective Exam Vital Signs Date Time Temp Pulse Resp B/P (MAP) Pulse Ox O2 Delivery O2 Flow Rate FiO2 12/17/16 09:03 98.5 101 10 127/59 95 Room Air 12/17/16 08:45 95 12/17/16 08:24 94 12/17/16 07:25 94 12/17/16 07:00 101 12/17/16 06:00 101 12 102/67 92 Room Air 12/17/16 05:00 96 10 98/82 94 Room Air 12/17/16 04:00 98.3 101 10 138/75 92 Room Air 12/17/16 04:00 95 12/17/16 03:00 98 15 99/81 95 Room Air 12/17/16 02:00 96 13 125/65 95 Room Air 12/17/16 01:00 101 12/17/16 01:00 98 18 99/71 94 Room Air 12/17/16 00:00 98.6 98 13 103/70 95 Room Air 12/17/16 00:00 95 12/16/16 23:00 98 18 98/73 93 Room Air 12/16/16 22:00 98 16 95/75 95 Room Air 12/16/16 21:24 95 12/16/16 21:00 93 17 146/74 95 Room Air 12/16/16 20:00 94 12/16/16 20:00 98.1 93 18 135/66 94 Room Air 12/16/16 19:00 95 12/16/16 19:00 96 20 143/94 95 Room Air 12/16/16 18:00 94 11 145/63 98 Room Air 12/16/16 17:00 93 9 129/61 93 Room Air 12/16/16 16:16 97 12/16/16 16:00 91 15 150/70 99 Room Air 12/16/16 15:00 93 20 146/67 98 Room Air 12/16/16 14:01 93 12/16/16 14:00 89 16 131/63 92 Room Air 12/16/16 13:00 90 23 147/70 95 Room Air 12/16/16 13:00 88 12/16/16 12:05 97 12/16/16 12:05 96.1 98 Room Air 12/16/16 12:05 97 I & O 12/17/16 07:00 Intake Total 2972 ml Output Total 3150 ml Balance -178 ml Capillary Refill : Less Than 3 Seconds General Appearance: No Apparent Distress HEENT: PERRL/EOMI Neck: Full Range of Motion Respiratory: Chest Non Tender, Rhonci Cardiovascular: Regular Rate, Rhythm Gastrointestinal: soft, tenderness Extremity: Normal Capillary Refill Neurologic/Psychiatric: Alert, Oriented x3 Skin: Normal Color Lymphatic: No Adenopathy Results Lab Laboratory Tests 12/16/16 11:35: Blood Gas Puncture Site ARTLINE, Blood Gas Patient Temperature 96, Arterial Blood pH 7.46H, Arterial Blood Partial Pressure CO2 31L, Arterial Blood Partial Pressure O2 84, Arterial Blood HCO3 22L, Arterial Blood Total CO2 23.2, Arterial Blood Oxygen Saturation 99, Arterial Blood Base Excess -1.5, Jermaine Test N/A, Blood Gas Ventilator Setting YES, Blood Gas Inspired Oxygen 21% FI02 12/16/16 12:31: Glucometer 99 12/16/16 18:33: Glucometer 92 12/16/16 20:17: Glucometer 87 12/17/16 00:05: Glucometer 86 12/17/16 04:15: Glucometer 86, White Blood Count 24.7H, Red Blood Count 3.35L, Hemoglobin 9.3#L , Hematocrit 28L, Mean Corpuscular Volume 83, Mean Corpuscular Hemoglobin 28, Mean Corpuscular Hemoglobin Concent 34, Red Cell Distribution Width 17.8H, Platelet Count 466H, Mean Platelet Volume 8.7, Neutrophils (%) (Auto) 84H, Lymphocytes (%) (Auto) 9L, Monocytes (%) (Auto) 8, Eosinophils (%) (Auto) 0, Basophils (%) (Auto) 0, Neutrophils # (Auto) 20.6H, Lymphocytes # (Auto) 2.1, Monocytes # (Auto) 1.9H, Eosinophils # (Auto) 0.0, Basophils # (Auto) 0.1, Neutrophils % (Manual) 82, Lymphocytes % (Manual) 5, Monocytes % (Manual) 8, Eosinophils % (Manual) 0, Basophils % (Manual) 0, Band Neutrophils 3, Reactive Lymphocytes 2, Polychromasia SLIGHT, Hypochromasia SLIGHT, Anisocytosis MODERATE , Microcytosis SLIGHT, Macrocytosis MODERATE, Target Cells SLIGHT, Elliptocytes SLIGHT, Sodium Level 138, Potassium Level 3.1L, Chloride Level 108H, Carbon Dioxide Level 22, Anion Gap 8, Blood Urea Nitrogen 7, Creatinine 0.77, Estimat Glomerular Filtration Rate > 60, BUN/Creatinine Ratio 9, Glucose Level 80, Calcium Level 6.7L, Phosphorus Level 1.9L, Magnesium Level 1.5L 12/17/16 09:04: Glucometer 80 Microbiology 12/14/16 Blood Culture - Preliminary, Resulted No growth 12/15/16 C. difficile GDH Antigen & Toxins - Final, Complete 12/14/16 Urine Culture - Final, Complete Assessment/Plan Assessment/Plan Assess & Plan/Chief Complaint severe pseudomembranous colitis s/p extended left hemicolectomy and end colostomy. leukocytosis. will check CXR and UA. on triple abx regimen. ambulate. PT. Clinical Quality Measures DVT/VTE Risk/Contraindication: Risk Factor Score Per Nursin RFS Level Per Nursing on Admit: 4+=Very High JAMILA MUELLER MD Dec 17, 2016 11:36 am
--- NOTE | 2016-12-17 11:42 | Diagnostic Imaging Report ---
INDICATION: Dyspnea. Comparison is made with prior examination of 12/16/2016. FINDINGS: The ET and NG tubes have been been removed. The heart size is stable. There is venous congestion. There is right basilar atelectasis and/or pneumonitis. There is no pneumothorax. The mediastinum is unremarkable. IMPRESSION: Bibasilar atelectasis and/or pneumonitis. Mild venous congestion. Interval removal of the ET and NG tubes Dictated by: Dictated on workstation # [id number]
--- NOTE | 2016-12-17 12:25 | Progress Note-Hospitalist ---
Standard Progress Note Progress Notes/Assess & Plan Date Seen 12/17/16 Diagnosis Assessment: Severe sepsis due to pneumonia 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 difficile colitis Overall debility requiring care home placement just discharged Assess & Plan/Chief Complaint The patient is a 71-year-old white male known to me from multiple previous admissions. He returned again with the sepsis and what appeared to be left lower lobe pneumonia. He has subsequently undergone segmental colectomy for pseudomembranous colitis. He has subsequently been extubated and his vital signs and SaO2 are quite satisfactory. Physical exam: He appears comfortable and is much more interactive and the oriented than I expected after his early week. Lungs are clear to auscultation. CV is regular without murmur. SaO2 is running 92-94 on nasal cannula oxygen. Impression: Admission for sepsis and left lower lobe pneumonia. 2.partial colectomy for pseudomembranous colitis. 3.cardiomyopathy with ejection fraction less than 20 percent. Plan: Continue present meds and ICU status. Consider transfer tomorrow. Labs Laboratory Tests 12/15/16 22:40 12/16/16 04:00 12/17/16 04:15 SEEMA CARROLL MD Dec 17, 2016 12:25
--- NOTE | 2016-12-17 13:19 | Cardiology Progress Note ---
Cardiology SOAP Progress Note Subjective: complains of abdominal pain. No shortness of breath. Objective: I&O/Vital Signs Vital Sign - Last 12Hours 12/17/16 12/17/16 12/17/16 12/17/16 02:00 03:00 04:00 04:00 Temp 98.3 Pulse 96 98 101 Resp 13 15 10 B/P (MAP) 125/65 99/81 138/75 Pulse Ox 95 95 95 92 O2 Delivery Room Air Room Air Room Air 12/17/16 12/17/16 12/17/16 12/17/16 05:00 06:00 07:00 07:00 Pulse 96 101 101 101 Resp 10 12 12 B/P (MAP) 98/82 102/67 94/72 Pulse Ox 94 92 94 O2 Delivery Room Air Room Air Room Air 12/17/16 12/17/16 12/17/16 12/17/16 07:25 08:24 08:45 09:03 Temp 98.5 Pulse 101 Resp 10 B/P (MAP) 127/59 Pulse Ox 94 94 95 95 O2 Delivery Room Air 12/17/16 12/17/16 12/17/16 10:00 11:00 12:00 Pulse 98 101 104 Resp 6 6 14 B/P (MAP) 135/64 141/77 107/85 Pulse Ox 97 96 90 O2 Delivery Room Air Room Air Room Air Intake and Output 12/17/16 00:00 Intake Total 98 ml Output Total 2050 ml Balance -1952 ml Weight (Pounds): 185 Weight (Ounces): 3.2 Weight (Calculated Kilograms): 84.245566 Constitutional: AAO x 3, well-developed, well-nourished, other (appears fatigued) Respiratory: No accessory muscle use, chest expansion is symmetric, lungs clear to auscultation, other (good air entry, but diminished at the bases) Cardiovascular: regular rate-rhythm, S1 and S2, systolic murmur (soft JIMENA at card base) Gastrointestional: other (post op; we did not attemp palp; no bs heard) Extremities: No clubbing, No cyanosis, significant edema Neurologic/Psychiatric: oriented x 3, grossly intact Skin: rash on exposed areas Results/Procedures: Labs Laboratory Tests 12/16/16 18:33: Glucometer 92 12/16/16 20:17: Glucometer 87 12/17/16 00:05: Glucometer 86 12/17/16 04:15: Glucometer 86, White Blood Count 24.7H, Red Blood Count 3.35L, Hemoglobin 9.3#L , Hematocrit 28L, Mean Corpuscular Volume 83, Mean Corpuscular Hemoglobin 28, Mean Corpuscular Hemoglobin Concent 34, Red Cell Distribution Width 17.8H, Platelet Count 466H, Mean Platelet Volume 8.7, Neutrophils (%) (Auto) 84H, Lymphocytes (%) (Auto) 9L, Monocytes (%) (Auto) 8, Eosinophils (%) (Auto) 0, Basophils (%) (Auto) 0, Neutrophils # (Auto) 20.6H, Lymphocytes # (Auto) 2.1, Monocytes # (Auto) 1.9H, Eosinophils # (Auto) 0.0, Basophils # (Auto) 0.1, Neutrophils % (Manual) 82, Lymphocytes % (Manual) 5, Monocytes % (Manual) 8, Eosinophils % (Manual) 0, Basophils % (Manual) 0, Band Neutrophils 3, Reactive Lymphocytes 2, Polychromasia SLIGHT, Hypochromasia SLIGHT, Anisocytosis MODERATE , Microcytosis SLIGHT, Macrocytosis MODERATE, Target Cells SLIGHT, Elliptocytes SLIGHT, Sodium Level 138, Potassium Level 3.1L, Chloride Level 108H, Carbon Dioxide Level 22, Anion Gap 8, Blood Urea Nitrogen 7, Creatinine 0.77, Estimat Glomerular Filtration Rate > 60, BUN/Creatinine Ratio 9, Glucose Level 80, Calcium Level 6.7L, Phosphorus Level 1.9L, Magnesium Level 1.5L 12/17/16 09:04: Glucometer 80 12/17/16 11:44: Glucometer 84 Microbiology 12/14/16 Blood Culture - Preliminary, Resulted No growth 12/15/16 C. difficile GDH Antigen & Toxins - Final, Complete 12/14/16 Urine Culture - Final, Complete A/P: Assessment/Dx: Assessment: S/p L hemicolectomy and colostomy on 12/15/16 Sepsis due to pseudomembranous colitis and colon perf treated with surg (see surgical report of Dr Jaime's dated 12/15/16) Congestive heart failure, nonischemic cardiomyopathy, acute on chronic left ventricular systolic dysfunction with most recent ejection fraction improved to 50 percent. Has been treated with beta gurpreet and Entresto. Status post acute renal failure, improved Peripheral vascular disease with history of nonhealing wounds bilaterally. Peripheral angiogram done 12/04/16 revealed moderate atherosclerotic disease on the left lower extremity, the anterior tibial artery is severely diseased on the left lower extremity but the ulcer on the left lower extremity has healed. Medical therapy is recommended. Moderate disease of the right lower extremity with good flow, with three-vessel flow down to the foot. . Small infrarenal abdominal aortic aneurysm noted during peripheral angiogram Hyperlipidemia, hold statin for now. History of pulmonary hypertension History of rheumatoid arthritis H/o COPD Tobaccoism, reported to have quit earlier this year History of chronic narcotic use Plan: Plan: Complex management due to multiple comorbidities and multisystem involvement Given h/o cardiomyopathy and CHF, we will monitor closely for decompensation of CHF. Currently exhibiting considerable leg edema and notes some shortness of breath. continue low-dose diuretic therapy. Currently stable cardiac-[place]. Monitor labs closely Shanell BRICE MD Dec 17, 2016 1:19 pm
[2016-12-17] MEDS: ENOXAPARIN 40 MG/0.4 ML (LOVENOX) SYR SC SCH (15:23)
[2016-12-17 18:10] LABS: BILIRUBIN,URINE NEGATIVE (NEGATIVE); KETONES,URINE 1+ (NEGATIVE); LEUKOCYTE ESTERASE ,URINE 1+ (NEGATIVE); NITRITE,URINE NEGATIVE (NEGATIVE); PH,URINE 5 (5-9); PROTEIN,URINE 2+ (NEGATIVE); UROBILINOGEN,URINE NORMAL (NORMAL)
[2016-12-17 18:19] LABS: WBC,URINE RARE /HPF
[2016-12-18] VITALS (22 sets, daily range): BP systolic 94–147; BP diastolic 61–95
[2016-12-18] MEDS: NS IV 1000 ML 1,000 ML IV SCH ×3 (00:44→21:16)
[2016-12-18] MEDS: VANCOMYCIN ORAL 250 MG/5 ML 60 ML PO SCH ×8 (01:48→19:54)
[2016-12-18] MEDS: ONDANSETRON 4 MG/2 ML (SDV) Z0FRAN IV PRN (04:00)
[2016-12-18 04:44] LABS: BASOPHILS # (AUTO) 0.1 10^3/uL (0.0-0.1); BASOPHILS % (AUTO) 0 % (0-10); EOSINOPHILS # (AUTO) 0.1 10^3/uL (0.0-0.3); EOSINOPHILS % (AUTO) 0 % (0-10); LYMPHOCYTES # (AUTO) 2.6 X 10^3 (1.0-4.0); LYMPHOCYTES % (AUTO) 10 % (12-44); MEAN CORPUSCULAR HEMOGLOBIN 27 PG (25-34); MEAN CORPUSCULAR HGB CONC 32 G/DL (32-36); MEAN CORPUSCULAR VOLUME 83 FL (80-99); MEAN PLATELET VOLUME 8.9 FL (7.4-10.4); MONOCYTES # (AUTO) 2.2 X 10^3 (0.0-1.0); MONOCYTES % (AUTO) 9 % (0-12); NEUTROPHILS # (AUTO) 21.3 X 10^3 (1.8-7.8); NEUTROPHILS % (AUTO) 81 % (42-75); PLATELET COUNT 482 10^3/uL (130-400); RED BLOOD COUNT 3.59 10^6/uL (4.35-5.85); WHITE BLOOD COUNT 26.3 10^3/uL (4.3-11.0)
[2016-12-18 05:01] LABS: ANION GAP 8 MMOL/L (5-14); BLOOD UREA NITROGEN 7 MG/DL (7-18); BUN/CREATININE RATIO 9; CARBON DIOXIDE 21 MMOL/L (21-32); CHLORIDE 110 MMOL/L (98-107); CREATININE SERUM 0.75 MG/DL (0.60-1.30); POTASSIUM 3.2 MMOL/L (3.6-5.0); SODIUM 139 MMOL/L (135-145)
[2016-12-18 05:02] LABS: CALCIUM 6.7 MG/DL (8.5-10.1); GFR ESTIMATED > 60; GLUCOSE 66 MG/DL (70-105); MAGNESIUM 1.5 MG/DL (1.8-2.4); PHOSPHORUS 1.6 MG/DL (2.3-4.7)
[2016-12-18] MEDS: metroNIDAZOLE 500MG/100ML IVPB 100 ML IV SCH (06:26)
[2016-12-18] MEDS: PIPERACILLIN/TAZOBACTAM 4.5 GM/NS 100 ML IVPB IV SCH ×6 (06:27→22:20)
[2016-12-18] MEDS: MAGNESIUM 1 GM/100 ML IVPB 100 ML IV SCH ×3 (07:07→09:59)
[2016-12-18] MEDS: POTASSIUM CL 10MEQ/50ML IVPB 50 ML IV SCH (07:07)
[2016-12-18] MEDS: KCL 20 MEQ TAB (K-DUR) PO SCH (07:07)
[2016-12-18 07:18] LABS: CALCIUM PH 7.43
[2016-12-18] MEDS ORDERED: KCL 20 MEQ TAB (K-DUR) PO NR (07:54)
[2016-12-18] MEDS: RT-ALBUTEROL/IPRATROPIUM 3 ML (DUONEB) VIAL INH SCH ×3 (07:57→19:57)
[2016-12-18] MEDS: CHLORHEXIDINE 0.12% SOLN 15 ML (PERIDEX) UDC PO SCH ×2 (08:34→21:12)
[2016-12-18] MEDS: FAMOTIDINE 20MG/2ML IV (PEPCID) IV SCH ×2 (08:34→21:04)
--- NOTE | 2016-12-18 08:58 | Physical Therapy Evaluation ---
PT Evaluation-General Medical Diagnosis Admission Date Dec 14, 2016 at 16:03 Onset Date: Dec 14, 2016 Therapy Diagnosis Therapy Diagnosis: difficulty walking Height/Weight Height (Feet): 5 Height (Inches): 9.00 Weight (Pounds): 189 Weight (Ounces): 9.0 Precautions Precautions/Isolations: Fall Prevention, Standard Precautions, Contact/Enteric Isolation, Pressure Ulcer Weight Bear Status Weight Bearing Restriction: Weight Bearing/Tolerated Referral Physician: Sathish Reason for Referral: Evaluation/Treatment Medical History Pertinent Medical History: Arthritis, CAD, COPD, GERD, HTN, Hypothroidism, PVD , Rheumatoid Arthritis Social History Current Living Status: Significant Other Prior/Core FIM Prior Level of Function Functional [place] Measure 0=Not Assessed/NA 4=Minimal Assistance 1=Total Assistance 5=Supervision or Setup 2=Maximal Assistance 6=Modified [place] 3=Moderate Assistance 7=Complete [place] Bed Mobility: 7 Transfers (B,C,W/C) (FIM): 7 Gait: 6 Locomotion: 6 PT Evaluation-Current Subjective States that he doesn't think he can do much with therapy. Patient agrees to try to stand. Pain Numeric Pain Scale: 9 Location Body Site: Abdomen ROM/Strength ROM Upper Extremities WFL ROM Lower Extremities WFL Strenght Lower Extremities 3+/5 Transfers Functional [place] Measure 0=Not Assessed/NA 4=Minimal Assistance 1=Total Assistance 5=Supervision or Setup 2=Maximal Assistance 6=Modified [place] 3=Moderate Assistance 7=Complete [place] Transfers (B, C, W/C) (FIM): 2 Scootin Rollin Supine to/from Sit: 2 Sit to/from Stand: 4 Gait Distance: 0' Comments/Gait Description Patient unable to take steps today. Patient stood for 3' with moderate assist to maintain standing. Balance Sitting Static: Good Sitting Dynamic: Fair Standing Static: Poor Assessment/Needs 71 y.o. male s/p hemicolectomy and colostomy. The patient has significant functional mobility limitations secondary to pain and deconditioning. The patient should do well as a result of skilled therapy. Rehab Potential: Good Equipment Needs FWW PT Short Term Goals Short Term Goals Time Frame: Dec 25, 2016 Transfers (B,C,W/C) (FIM): 5 Gait (FIM): 5 Distance (FIM): 3=150 ft Gait Distance Comment: 150' Gait Level of Assist: 5 Gait Assistive Device: FWW PT Registered Representative Goals Intermediate Goals PT Intermediate Goals Time Frame: Jan 01, 2017 Transfers (B,C,W/C) (FIM): 7 Gait (FIM): 6 Gait distance (FIM): 3=150 ft Distance: 300' Gait Level of Assist: 6 Gait Assistive Device: FWW PT Plan Problem List Problem List: Activity Tolerance, Functional Strength, Safety, Balance, Gait, Transfer, Bed Mobility Treatment/Plan Treatment Plan: Continue Plan of Care Treatment Plan: Bed Mobility, Education, Functional Activity Juli, Functional Strength, Gait, Safety, Therapeutic Exercise, Transfers # of days/week 6 Visits Per Week: 11 Minutes/Day (M-F): 30 Minutes/Day (Sat/Ferrara): 15 Pt/Family Agrees w/Plan: Yes Time/GCodes Time In: 820 Time Out: 850 Total Billed Treatment Time: 30' Total Billed Treatment 1, Marce Low complexity ZUHAIR WAHL PT Dec 18, 2016 08:58
--- NOTE | 2016-12-18 10:19 | Diagnostic Imaging Report ---
INDICATION: Dyspnea. Comparison made with prior examination from 12/17/16. FINDINGS: There is cardiomegaly. There is some venous congestion. There are increasing bilateral perihilar infiltrates. No pleural effusion or pneumothorax. The mediastinum is unremarkable. IMPRESSION: Increase in bilateral perihilar infiltrates. While this may be related to congestive failure superimposed pneumonia cannot be excluded. Recommend clinical correlation. Cardiomegaly and moderate central venous congestion. Dictated by: Dictated on workstation # [id number]
[2016-12-18] MEDS ORDERED: VANCOMYCIN 1,750 MG/NS 500 ML IVPB IV NR ×2 (10:22)
--- NOTE | 2016-12-18 10:40 | Progress Note (SOAP) ---
Subjective Subjective/Events-last exam Patient seen with Dr. Bower. Patient reports still having abdominal pain. Did have an episode of emesis last night but small amount. Tolerating diet otherwise. No difficulty breathing. PT working with patient on ambulation. Ostomy functioning. Patient reports that he is having some low grade fevers. Review of Systems General: No Chills, No Night Sweats Pulmonary: No Cough Gastrointestinal: Abdominal Pain, Nausea (Occasional), Vomiting (x1 episode last night.) Genitourinary: No Dysuria, No Frequency Objective Exam Vital Signs Date Time Temp Pulse Resp B/P (MAP) Pulse Ox O2 Delivery O2 Flow Rate FiO2 12/18/16 08:30 98.6 96 20 131/78 96 Room Air 12/18/16 07:58 99 2.00 12/18/16 07:00 88 12/18/16 06:00 95 13 123/80 97 Nasal Cannula 2.00 12/18/16 05:00 97 21 124/85 95 Nasal Cannula 2.00 12/18/16 04:05 94 2.00 12/18/16 04:00 99.0 99 22 126/79 94 Nasal Cannula 2.00 12/18/16 03:00 96 13 122/83 94 Nasal Cannula 2.00 12/18/16 02:00 95 15 105/71 94 Nasal Cannula 2.00 12/18/16 01:00 96 14 126/85 94 Nasal Cannula 2.00 12/18/16 00:57 94 12/18/16 00:00 100.0 95 17 136/81 99 Nasal Cannula 2.00 12/17/16 23:45 99 2.00 12/17/16 23:00 95 21 125/83 98 Nasal Cannula 2.00 12/17/16 22:00 101 8 132/86 91 Nasal Cannula 2.00 12/17/16 21:00 98 19 92/79 91 Room Air 12/17/16 20:04 91 12/17/16 20:00 92 12/17/16 20:00 98 13 93/80 87 Room Air 12/17/16 19:00 100.2 96 19 140/74 92 Room Air 12/17/16 19:00 95 12/17/16 18:00 101 18 92/72 93 Room Air 12/17/16 17:00 98 18 95/81 92 Room Air 12/17/16 16:00 92 17 98/85 95 Room Air 12/17/16 15:38 96 12/17/16 15:00 98 18 103/72 93 Room Air 12/17/16 14:00 101 10 92/75 97 Room Air 12/17/16 13:00 101 12/17/16 13:00 101 18 102/75 91 Room Air 12/17/16 12:00 104 14 107/85 90 Room Air 12/17/16 11:00 101 6 141/77 96 Room Air I & O 12/18/16 07:00 Intake Total 2040 ml Output Total 1155 ml Balance 885 ml Capillary Refill : Less Than 3 Seconds General Appearance: No Apparent Distress, WD/WN HEENT: PERRL/EOMI Neck: Full Range of Motion, Normal Inspection, Non Tender, Supple Respiratory: No Accessory Muscle Use, No Respiratory Distress, Rhonci Cardiovascular: Regular Rate, Rhythm Gastrointestinal: normal bowel sounds, soft, tenderness Extremity: Normal Capillary Refill, Normal Inspection, Normal Range of Motion, Non Tender, No Calf Tenderness, Swelling Neurologic/Psychiatric: Alert, Oriented x3 Skin: Normal Color, Warm/Dry Results Lab Laboratory Tests 12/17/16 11:44: Glucometer 84 12/17/16 15:27: Glucometer 115H 12/17/16 18:05: Urine Color YELLOW, Urine Clarity CLEAR, Urine pH 5, Urine Specific [place] 1.020, Urine Protein 2+H, Urine Glucose (UA) NEGATIVE, Urine Ketones 1+H, Urine Nitrite NEGATIVE, Urine Bilirubin NEGATIVE, Urine Urobilinogen NORMAL, Urine Leukocyte Esterase 1+H, Urine RBC (Auto) 1+H, Urine RBC RARE, Urine WBC RARE, Urine Squamous Epithelial Cells NONE, Urine Crystals NONE, Urine Bacteria NEGATIVE, Urine Casts NONE, Urine Mucus NEGATIVE, Urine Culture Indicated NO 12/18/16 04:33: White Blood Count 26.3H, Red Blood Count 3.59L, Hemoglobin 9.6L, Hematocrit 30L , Mean Corpuscular Volume 83, Mean Corpuscular Hemoglobin 27, Mean Corpuscular Hemoglobin Concent 32, Red Cell Distribution Width 18.0H, Platelet Count 482H, Mean Platelet Volume 8.9, Neutrophils (%) (Auto) 81H, Lymphocytes (%) (Auto) 10L , Monocytes (%) (Auto) 9, Eosinophils (%) (Auto) 0, Basophils (%) (Auto) 0, Neutrophils # (Auto) 21.3H, Lymphocytes # (Auto) 2.6, Monocytes # (Auto) 2.2H, Eosinophils # (Auto) 0.1, Basophils # (Auto) 0.1, Sodium Level 139, Potassium Level 3.2L, Chloride Level 110H, Carbon Dioxide Level 21, Anion Gap 8, Blood Urea Nitrogen 7, Creatinine 0.75, Estimat Glomerular Filtration Rate > 60, BUN/ Creatinine Ratio 9, Glucose Level 66L, Calcium Level 6.7L, Phosphorus Level 1.6L , Magnesium Level 1.5L 12/18/16 06:38: Glucometer 65L Microbiology 12/14/16 Blood Culture - Preliminary, Resulted No growth 12/15/16 C. difficile GDH Antigen & Toxins - Final, Complete 12/14/16 Urine Culture - Final, Complete Assessment/Plan Assessment/Plan Assess & Plan/Chief Complaint severe pseudomembranous colitis s/p extended left hemicolectomy and end colostomy. leukocytosis. on triple abx regimen. Change flagyl to oral and vanco to IV. ambulate. PT. Clinical Quality Measures DVT/VTE Risk/Contraindication: Risk Factor Score Per Nursin RFS Level Per Nursing on Admit: 4+=Very High ADRYAN COFFMAN [employer]ERAL DIRECTOR Dec 18, 2016 10:40 am
--- NOTE | 2016-12-18 11:05 | Progress Note-Standard ---
Standard Progress Note Progress Notes/Assess & Plan Progress/Assessment & Plan increase WBC. no signs DVT. mild effusion lungs but no pneumonia. will start vanco IV and switch flagyl to PO. continue PT. JAMILA MUELLER MD Dec 18, 2016 11:05
--- NOTE | 2016-12-18 11:06 | Progress Note-Hospitalist ---
Standard Progress Note Progress Notes/Assess & Plan Date Seen 12/18/16 Diagnosis Assessment: Severe sepsis due to pneumonia 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 difficile colitis Overall debility requiring penitentiary placement just discharged Assess & Plan/Chief Complaint The patient responds to voice however is generally somnolent this morning. Vital signs are stable. MAXIMUM TEMPERATURE was noted to be 100. Physical exam: Lungs are clear to auscultation. CV is regular. Impression: Pseudomembranous colitis post left hemicolectomy and colostomy. 2.ischemic cardiomyopathy with ejection fraction 20 percent or less. 3.recent history of repeated pneumonia. Plan: Continue present measures. Clear liquid diet. Labs Laboratory Tests 12/17/16 04:15 12/18/16 04:33 SEEMA CARROLL MD Dec 18, 2016 11:06
[2016-12-18] MEDS: fentaNYL INJECTION 1,000 MCG in NS (IVPB) 80 ML IV SCH (13:33)
--- NOTE | 2016-12-18 13:36 | Cardiology Progress Note ---
Cardiology SOAP Progress Note Subjective: no cardiac symptoms Objective: I&O/Vital Signs Vital Sign - Last 12Hours 12/18/16 12/18/16 12/18/16 12/18/16 03:00 04:00 04:05 05:00 Temp 99.0 Pulse 96 99 97 Resp 13 22 21 B/P (MAP) 122/83 126/79 124/85 Pulse Ox 94 94 94 95 O2 Delivery Nasal Cannula Nasal Cannula Nasal Cannula O2 Flow Rate 2.00 2.00 2.00 2.00 12/18/16 12/18/16 12/18/16 12/18/16 06:00 07:00 07:58 08:30 Temp 98.6 Pulse 95 88 96 Resp 13 20 B/P (MAP) 123/80 131/78 Pulse Ox 97 99 96 O2 Delivery Nasal Cannula Room Air O2 Flow Rate 2.00 2.00 12/18/16 12/18/16 13:00 14:08 Pulse 101 Pulse Ox 89 Intake and Output 12/18/16 00:00 Intake Total 350 ml Output Total 530 ml Balance -180 ml Weight (Pounds): 189 Weight (Ounces): 9.0 Weight (Calculated Kilograms): 85.989273 Constitutional: AAO x 3, well-developed, well-nourished, other (appears fatigued) Respiratory: No accessory muscle use, chest expansion is symmetric, lungs clear to auscultation, other (good air entry, but diminished at the bases) Cardiovascular: regular rate-rhythm, S1 and S2, systolic murmur (soft JIMENA at card base) Gastrointestional: other (post op; we did not attemp palp; no bs heard) Extremities: No clubbing, No cyanosis, significant edema Neurologic/Psychiatric: oriented x 3, grossly intact Skin: rash on exposed areas Results/Procedures: Labs Laboratory Tests 12/17/16 15:27: Glucometer 115H 12/17/16 18:05: Urine Color YELLOW, Urine Clarity CLEAR, Urine pH 5, Urine Specific [place] 1.020, Urine Protein 2+H, Urine Glucose (UA) NEGATIVE, Urine Ketones 1+H, Urine Nitrite NEGATIVE, Urine Bilirubin NEGATIVE, Urine Urobilinogen NORMAL, Urine Leukocyte Esterase 1+H, Urine RBC (Auto) 1+H, Urine RBC RARE, Urine WBC RARE, Urine Squamous Epithelial Cells NONE, Urine Crystals NONE, Urine Bacteria NEGATIVE, Urine Casts NONE, Urine Mucus NEGATIVE, Urine Culture Indicated NO 12/18/16 04:33: White Blood Count 26.3H, Red Blood Count 3.59L, Hemoglobin 9.6L, Hematocrit 30L , Mean Corpuscular Volume 83, Mean Corpuscular Hemoglobin 27, Mean Corpuscular Hemoglobin Concent 32, Red Cell Distribution Width 18.0H, Platelet Count 482H, Mean Platelet Volume 8.9, Neutrophils (%) (Auto) 81H, Lymphocytes (%) (Auto) 10L , Monocytes (%) (Auto) 9, Eosinophils (%) (Auto) 0, Basophils (%) (Auto) 0, Neutrophils # (Auto) 21.3H, Lymphocytes # (Auto) 2.6, Monocytes # (Auto) 2.2H, Eosinophils # (Auto) 0.1, Basophils # (Auto) 0.1, Sodium Level 139, Potassium Level 3.2L, Chloride Level 110H, Carbon Dioxide Level 21, Anion Gap 8, Blood Urea Nitrogen 7, Creatinine 0.75, Estimat Glomerular Filtration Rate > 60, BUN/ Creatinine Ratio 9, Glucose Level 66L, Calcium Level 6.7L, Phosphorus Level 1.6L , Magnesium Level 1.5L 12/18/16 06:38: Glucometer 65L Microbiology 12/14/16 Blood Culture - Preliminary, Resulted No growth 12/15/16 C. difficile GDH Antigen & Toxins - Final, Complete 12/14/16 Urine Culture - Final, Complete A/P: Assessment/Dx: Assessment: S/p L hemicolectomy and colostomy on 12/15/16 Sepsis due to pseudomembranous colitis and colon perf treated with surg (see surgical report of Dr Jaime's dated 12/15/16) Congestive heart failure, nonischemic cardiomyopathy, acute on chronic left ventricular systolic dysfunction with most recent ejection fraction improved to 50 percent. Has been treated with beta gurpreet and Entresto. Status post acute renal failure, improved Peripheral vascular disease with history of nonhealing wounds bilaterally. Peripheral angiogram done 12/04/16 revealed moderate atherosclerotic disease on the left lower extremity, the anterior tibial artery is severely diseased on the left lower extremity but the ulcer on the left lower extremity has healed. Medical therapy is recommended. Moderate disease of the right lower extremity with good flow, with three-vessel flow down to the foot. . Small infrarenal abdominal aortic aneurysm noted during peripheral angiogram Hyperlipidemia, hold statin for now. History of pulmonary hypertension History of rheumatoid arthritis H/o COPD Tobaccoism, reported to have quit earlier this year History of chronic narcotic use Plan: Plan: Complex management due to multiple comorbidities and multisystem involvement Given h/o cardiomyopathy and CHF, we will monitor closely for decompensation of CHF. Currently exhibiting considerable leg edema and notes some shortness of breath. continue low-dose diuretic therapy. Currently stable cardiac-[place]. Monitor labs closely Shanell BRICE MD Dec 18, 2016 1:36 pm
[2016-12-18] MEDS: metroNIDAZOLE 500 MG (FLAGYL) TAB PO SCH ×2 (13:46→21:04)
[2016-12-18] MEDS: ENOXAPARIN 40 MG/0.4 ML (LOVENOX) SYR SC SCH (13:46)
[2016-12-18] MEDS: NOREPINEPHRINE 4 MG in D5W 250 ML (IVPB) 250 ML IV SCH (15:20)
[2016-12-18] MEDS ORDERED: VANCOMYCIN INJECTION 1,000 MG in NS (IVPB) 250 ML IV SCH (23:00)
--- NOTE | 2016-12-18 23:24 | OPERATIVE REPORT ---
PROCEDURE PHYSICIAN: NATALIYA BOSWELL DATE OF PROCEDURE: 12/15/2016 PREOPERATIVE DIAGNOSES: 1. Septic shock. 2. Colitis, ischemic versus infectious. 3. Cardiomyopathy. 4. COPD. POSTOPERATIVE DIAGNOSES: 1. C. diff. colitis. 2. Intestinal perforation. 3. Cardiomyopathy. 4. COPD. 5. Septic shock. PROCEDURE: 1. Extended left hemicolectomy with end colostomy creation, Olivares's procedure. 2. Takedown of splenic flexure. SURGEON: Dr. Boswell GRAPHIC DESIGN MANAGER: Dr. Morrissey. ANESTHESIA: General endotracheal tube. BLOOD LOSS: Less than 50 mL SPECIMEN: Portion of the transverse colon, descending colon and sigmoid colon. IDENTIFICATION FOR THE PROCEDURE: The patient is a 71-year-old male who came in hypotensive, needed Levophed to keep his blood pressure up, severe abdominal pain, elevated white count, what looked like colitis on CT from the splenic flexure down. He also has a history of cardiomyopathy, COPD, possible CHF with an ejection fraction of 50%. I felt that he needed to go to the OR to address the colon. Thought this was most likely the cause of his hypotension. FINDINGS: The patient had what looked like C. diff. colitis, very thickened colon, infected perforated down in the rectosigmoid area. Removed an extended portion of his colon. Checked on the back table and there was pretty severe pseudomembranous colitis with a very thickened bowel. PROCEDURE NOTE: After informed consent was obtained, the patient was brought to the operating room, placed on table in a supine lithotomy position. He was then sterilely prepped and draped in the normal fashion. Midline incision was made with a number 10 blade, carried down through the skin and subcutaneous tissue, deepened down to the subcutaneous tissue with Bovie electrocautery down to the fascia. The fascia incised with Bovie electrocautery and then placed a finger into the abdomen and then extended the incision superiorly 2 or 3 inches above the umbilicus and 3 or 4 inches below the umbilicus. Upon entering, noted a lot of clear yellowish fluid, suctioned this out. The intestine was very dilated but looked normal on the outside. However, when looking down in the pelvis, there were adhesions that were stuck down and then while finger fracturing, we got purulent fluid out. This was suctioned up and noted a perforation in the rectosigmoid area. At this point then elected to get below this area, went to the mesentery. First scored the mesentery and then Bovie electrocautery and then bluntly got around the intestine. Balloon placed and contour stapler fired, clamped and then held for 30 seconds, then fired and held for 20 seconds and then released, thereby cutting the portion of colon and then coming across the mesentery with the LigaSure, coming across clamping, cautery and transecting in this fashion, taking the colon off of the mesentery. There were some adhesions, I had to carefully take these down where this area of inflammation was on the left pelvic wall, careful to get away from this area, free up along the white line of Toldt on the left. Then at a spot about just past the sigmoid colon, in the descending colon, elected to do a MYRA 75 across there, clamped and fired, transecting this and then removed this piece of colon. I then opened the colon, this piece contained the perforation and there was a very thickened and a lot of pseudomembranous colitis ulcers and plaque in here. I elected to start taking more, came up along the white line of Toldt using LigaSure and then Bovie electrocautery to free this up and then some blunt dissection, trying to sweep this medially. I also came across the transverse colon, freed the omentum off the transverse colon with the Bovie electrocautery as well as the LigaSure and then started pulling this medially, came across the splenocolic ligaments taking down the splenic flexure. There was a little bit of bleeding from a tear in the capsule of the spleen. This was controlled with Bovie electrocautery and some Surgicel. Once I freed this up, I elected to cut across right at the splenic flexure with another MYRA 75, again opened this on the back table. Again, the colon was very thickened and again saw pseudomembranous colitis. At this point I elected to extend the colon resection all the way to almost the hepatic flexure until we felt like very thin normal appearing bowel coming across of the mesentery with a LigaSure clamping, coagulating and transecting until we freed up, almost to the hepatic flexure and then using another MYRA 75 across the bowel, clamping and firing and then transecting and then pulling this portion off. Again, had a little bit of pseudomembranous colitis, but was not as bad. At this point I then elected to create a colostomy on the right side. I grasped the skin right in the rectus muscle, made a circular incision with the Bovie electrocautery taking out the skin and a portion of the subcutaneous fat down to the fascia and then made a cruciate incision through the fascia with the Bovie electrocautery and then scored the peritoneum on the inside and then able to get 2 fingers through this opening. Two fingers easily opened through there, then placed a [place] through here and pulled the portion of colon into this opening. At this point then, looked down again into the pelvis. The area of inflammation appeared to not extend into the bladder. The urine coming out was still clear. Looked at the splenic flexure, there was no bleeding and at this point then elected to close the incision. Close the incision with a number 1 double-stranded PDS suture one from the superior portion, one from the inferior portion, ran together to meet in the middle and tying and then closed the skin with анна. Then placed a 10/10 drape to protect this this incision and then created our colostomy, opened the distal portion of the intestine cutting the staple line off and then using 3-0 Vicryl, sutured at the 9 o'clock, 12 o'clock, and 6 o'clock in a enterprise-type fashion going through the distal portion of the intestine, then down further on the intestine and getting a portion of the skin to create a enterprise type of ostomy. Then cut off the rest of the staple line and then sutured the same at the 3 o'clock position and then in between each of these did another 3-0 Vicryl simple stitch to create the colostomy. It looked very good, had good blood supply. Cleaned this area and then placed an ostomy bag. It was a two-piece bag, one with a wafer and then the bag clipped on to this. The patient was then subsequently transferred straight up to the ICU on the vent. Sponge, instrument and needle count correct at the end of the case. Dr. Morrissey helped in identifying anatomy, with retraction, exposure and bowel resection. Job ID: [id number] Dictated Date: 12/15/2016 20:40:22 Metrology Manager Date: 12/18/2016 22:58:46 / meño CHAMPAGNE
[2016-12-19] VITALS (19 sets, daily range): BP systolic 90–146; BP diastolic 52–113
[2016-12-19] MEDS: ONDANSETRON 4 MG/2 ML (SDV) Z0FRAN IV PRN ×2 (00:16→05:18)
[2016-12-19] MEDS ORDERED: RT-ALBUTEROL/IPRATROPIUM 3 ML (DUONEB) VIAL INH PRN (00:45)
[2016-12-19] MEDS: VANCOMYCIN ORAL 250 MG/5 ML 60 ML PO SCH ×8 (02:41→20:19)
[2016-12-19] MEDS: fentaNYL INJECTION 1,000 MCG in NS (IVPB) 80 ML IV SCH ×2 (03:43→18:53)
[2016-12-19 04:31] LABS: BASOPHILS # (AUTO) 0.1 10^3/uL (0.0-0.1); BASOPHILS % (AUTO) 0 % (0-10); EOSINOPHILS # (AUTO) 0.1 10^3/uL (0.0-0.3); EOSINOPHILS % (AUTO) 0 % (0-10); LYMPHOCYTES # (AUTO) 2.7 X 10^3 (1.0-4.0); LYMPHOCYTES % (AUTO) 12 % (12-44); MEAN CORPUSCULAR HEMOGLOBIN 27 PG (25-34); MEAN CORPUSCULAR HGB CONC 33 G/DL (32-36); MEAN CORPUSCULAR VOLUME 83 FL (80-99); MONOCYTES # (AUTO) 2.4 X 10^3 (0.0-1.0); MONOCYTES % (AUTO) 11 % (0-12); NEUTROPHILS # (AUTO) 16.7 X 10^3 (1.8-7.8); NEUTROPHILS % (AUTO) 76 % (42-75); PLATELET COUNT 449 10^3/uL (130-400); RED BLOOD COUNT 3.53 10^6/uL (4.35-5.85); RED CELL DISTRIBUTION WIDTH 17.9 % (10.0-14.5); WHITE BLOOD COUNT 21.9 10^3/uL (4.3-11.0)
[2016-12-19] MEDS: NOREPINEPHRINE 4 MG in D5W 250 ML (IVPB) 250 ML IV SCH (04:40)
[2016-12-19 04:52] LABS: ANION GAP 8 MMOL/L (5-14); BLOOD UREA NITROGEN 6 MG/DL (7-18); BUN/CREATININE RATIO 9; CALCIUM 6.6 MG/DL (8.5-10.1); CARBON DIOXIDE 20 MMOL/L (21-32); CHLORIDE 111 MMOL/L (98-107); GFR ESTIMATED > 60; GLUCOSE 70 MG/DL (70-105); MAGNESIUM 1.5 MG/DL (1.8-2.4); PHOSPHORUS 1.6 MG/DL (2.3-4.7); POTASSIUM 3.1 MMOL/L (3.6-5.0); SODIUM 139 MMOL/L (135-145)
[2016-12-19] MEDS: KCL 20 MEQ TAB (K-DUR) PO SCH (06:00)
[2016-12-19] MEDS: POTASSIUM CL 10MEQ/50ML IVPB 50 ML IV SCH ×4 (06:00→08:40)
[2016-12-19] MEDS: MAGNESIUM 1 GM/100 ML IVPB 100 ML IV SCH ×3 (06:00→07:38)
[2016-12-19] MEDS: PIPERACILLIN/TAZOBACTAM 4.5 GM/NS 100 ML IVPB IV SCH ×6 (06:10→21:35)
--- NOTE | 2016-12-19 06:30 | Pulmonary Progress Note ---
Subjective Subjective/Events-last exam Pt is doing better still c/o abdominal pain. Exam Exam Vital Signs Date Time Temp Pulse Resp B/P (MAP) Pulse Ox O2 Delivery O2 Flow Rate FiO2 12/19/16 06:00 96 20 140/73 98 Nasal Cannula 1.00 12/19/16 05:00 100 11 137/113 98 Nasal Cannula 1.00 12/19/16 04:00 90 16 113/70 92 Nasal Cannula 1.00 12/19/16 04:00 95 1.00 12/19/16 03:00 103 20 98/75 95 Nasal Cannula 1.00 12/19/16 02:00 91 19 90/76 96 Nasal Cannula 1.00 12/19/16 01:02 97 12/19/16 01:00 98 20 98/78 96 Nasal Cannula 1.00 12/19/16 00:50 95 1.00 12/19/16 00:00 98.4 104 11 108/52 93 Nasal Cannula 1.00 12/19/16 00:00 100 1.00 12/18/16 23:00 99 16 94/70 96 Nasal Cannula 1.00 12/18/16 22:00 101 136/66 96 Nasal Cannula 1.00 12/18/16 21:00 100 15 146/78 96 Nasal Cannula 1.00 12/18/16 20:01 100 1.00 12/18/16 20:00 99.1 98 17 132/77 100 Nasal Cannula 1.00 12/18/16 19:58 99 1.00 12/18/16 19:14 96 12/18/16 19:00 100 18 136/61 96 Nasal Cannula 1.00 12/18/16 18:00 114 9 131/95 96 Room Air 12/18/16 17:00 98 21 131/81 97 Room Air 12/18/16 16:15 98.9 12/18/16 16:00 97 16 98/78 99 Room Air 12/18/16 15:00 100 22 133/80 98 Room Air 12/18/16 14:08 89 12/18/16 14:00 96 15 99 Room Air 12/18/16 13:00 99 18 112/82 97 Room Air 12/18/16 13:00 101 12/18/16 12:15 98.5 12/18/16 11:00 105 22 147/81 Room Air 12/18/16 10:00 101 22 107/72 94 Room Air 12/18/16 09:00 105 20 111/81 94 Room Air 12/18/16 08:30 98.6 96 20 131/78 96 Room Air 12/18/16 07:58 99 2.00 12/18/16 07:00 88 12/18/16 07:00 95 20 133/82 98 Nasal Cannula 2.00 I & O 12/19/16 07:00 Intake Total 2550 ml Output Total 610 ml Balance 1940 ml General Appearance: No Apparent Distress, WD/WN HEENT: PERRL/EOMI Neck: Full Range of Motion, Normal Inspection, Non Tender, Supple Respiratory: No Accessory Muscle Use, No Respiratory Distress, Rhonci Cardiovascular: Regular Rate, Rhythm Capillary Refill: Less Than 3 Seconds Gastrointestinal: normal bowel sounds, soft, tenderness Extremity: Normal Capillary Refill, Normal Inspection, Normal Range of Motion, Non Tender, No Calf Tenderness, Swelling Neurologic/Psychiatric: Alert, Oriented x3 Skin: Normal Color, Warm/Dry Lymphatic: No Adenopathy Results Lab Laboratory Tests 12/18/16 04:33 12/19/16 04:22 Assessment/Plan Assessment/Plan Cdiff colitis s/p Extended Left Hemicolectomy with end Colostomy /Pam's Procedure -umesh Duong zosyn Severe Sepsis with septic shock Anemia -transfuse 1 unit PRBC since pt is hypotensive LE Bilateral cellulitis -monitor and wound care following Clinical Quality Measures DVT/VTE Risk/Contraindication: Risk Factor Score Per Nursin RFS Level Per Nursing on Admit: 4+=Very High CHAYITO DE LA ROSA DO Dec 19, 2016 06:29
[2016-12-19] MEDS: NS IV 1000 ML 1,000 ML IV SCH ×2 (07:38→16:55)
[2016-12-19] MEDS: RT-ALBUTEROL/IPRATROPIUM 3 ML (DUONEB) VIAL INH SCH ×3 (08:27→19:52)
--- NOTE | 2016-12-19 08:36 | Cardiology Progress Note ---
Subjective Subjective/Events-last exam patient is laying down in bed, still having some abdominal pain and mild shortness of breath, overall reporting improvement. Denied any chest pain. No palpitation. Review of Systems General: No Chills, No Night Sweats, No Fatigue, No Malaise, No Appetite, No Other HEENT: No Head Aches, No Visual Changes, No Eye Pain, No Ear Pain, No Dysphasia , No Sinus Congestion, No Post Nasal Drip, No Sore Throat, No Other Pulmonary: Dyspnea, No Cough, No Pleuritic Chest Pain, No Other Cardiovascular: No: Chest Pain, Edema, Lt Headedness, Orthopnea, Other, Palpitations, Paroxysmal Noc. Dyspnea Objective-Cardiology Exam Last Set of Vital Signs Vital Signs 12/16/16 12/19/16 12/19/16 11:00 06:00 07:39 Temp 98.1 Pulse 96 Resp 20 B/P (MAP) 140/73 Pulse Ox 98 O2 Delivery Nasal Cannula O2 Flow Rate 1.00 FiO2 21 Capillary Refill : Less Than 3 Seconds I&O Intake and Output 12/19/16 00:00 Intake Total 3505 ml Output Total 985 ml Balance 2520 ml Intake Oral 325 ml IV Total 3180 ml Output Urine Total 375 ml Stool Total 610 ml # Urine Diapers 6 General: Alert, Cooperative HEENT: Atraumatic Neck: Supple, No JVD, No Thyromegaly Lungs: Normal Air Movement Heart: Regular Rate, Normal S1, Normal S2, No Murmurs Abdomen: Soft Extremities: No Clubbing, No Cyanosis, No Edema, Normal Pulses, No Tenderness/ Swelling Skin: Other (right anterior calf wound --- 2.7 x 1.8 x 0.1 cm, 100% eschar, no drainage.) Neuro: Normal Speech, Normal Tone Psych/Mental Status: Mood NL Results Lab Laboratory Tests 12/19/16 04:22 A/P-Cardiology Admission Diagnosis Sepsis C. difficile colitis peripheral arterial disease COPD Assessment/Plan C. difficile colitis, status post extended left hemicolectomy with Pam procedure, recovering slowly, still having some abdominal pain. Abdominal distention, status post surgery on December 15, 2016. Managed by primary care physician. Continue to monitor. Sepsis, improving, continue with aggressive antibiotic, receiving triple antibiotics. Continue to monitor. Managed Dr. Perales. Short of breath, improving, continue to monitor. Hypokalemia, hypomagnesemia, replace and monitor. Peripheral edema,I will restart Lasix and monitor closely. Congestive heart failure, nonischemic cardiomyopathy, acute on chronic left ventricular systolic dysfunction with most recent ejection fraction improved to 50 percent. Maintained on beta gurpreet and Entresto, continue to monitor closely Status post anoxic encephalopathy and pneumonia and sepsis early in October, improved with aggressive therapy. Back to his baseline. Continue to monitor. Status post acute renal failure. Improved, monitor renal function closely Peripheral vascular disease with history of nonhealing wounds bilaterally. Peripheral angiogram done 12/04/16 revealed moderate atherosclerotic disease on the left lower extremity, the anterior tibial artery is severely diseased on the left lower extremity but the ulcer on the left lower extremity has healed. Medical therapy is recommended. Moderate disease of the right lower extremity with good flow, with three-vessel flow down to the foot. Continue medical management at this time and continue to monitor. Small infrarenal abdominal aortic aneurysm noted during peripheral angiogram. Continue to monitor Hypertension, restart Lasix and monitor blood pressure. Hyperlipidemia, continue to hold statin. Hyperthyroidism, history of hypothyroidism and Levothroid, managed by primary care physician History of pulmonary hypertension, continue to monitor History of rheumatoid arthritis. COPD, managed and followed by primary care physician Tobaccoism, patient has stopped smoking after the last admission. Encouraged to continue with smoking cessation History of chronic narcotic use, urine drug screen is positive for opioids Clinical Quality Measures DVT/VTE Risk/Contraindication: Risk Factor Score Per Nursin RFS Level Per Nursing on Admit: 4+=Very High TORY HALL MD Dec 19, 2016 08:36
[2016-12-19] MEDS: metroNIDAZOLE 500 MG (FLAGYL) TAB PO SCH ×3 (08:40→21:35)
[2016-12-19] MEDS: FAMOTIDINE 20MG/2ML IV (PEPCID) IV SCH ×2 (08:40→21:35)
[2016-12-19] MEDS ORDERED: FUROSEMIDE 40 MG/4 ML INJ (LASIX) IVP NR (08:45)
--- NOTE | 2016-12-19 08:48 | Diagnostic Imaging Report ---
INDICATION: Dyspnea. TECHNIQUE: Single-view chest 4:59 AM. CORRELATION STUDY: 12/18/2016. FINDINGS: Heart size, mediastinal configuration stable. Vasculature remains prominent. Scattered bilateral pulmonary infiltrates and/or edema has increased since prior study. Lung pineda are hyperinflated. Right IJ central line relatively stable, tip over the proximal right atrium. IMPRESSION: There appears to be increasing infiltrate and/or edema about particularly the perihilar regions of both lung pineda. Dictated by: Dictated on workstation # [id number]
[2016-12-19] MEDS: CHLORHEXIDINE 0.12% SOLN 15 ML (PERIDEX) UDC PO SCH (09:00)
[2016-12-19] MEDS ORDERED: VANCOMYCIN ORAL SUSPENSION 60 ML BOTTLE PO SCH (09:15)
[2016-12-19] MEDS ORDERED: VANCOMYCIN ORAL 250 MG/5 ML 60 ML PO SCH ×2 (10:00)
[2016-12-19] MEDS ORDERED: TROUGH ORDER-PHARMACY XX NR (10:00)
--- NOTE | 2016-12-19 10:20 | Physical Therapy Daily Note ---
PT Daily Note-Current Subjective Patient is reluctant to participate with PT due to urine incontinence. PT reassured patient that this PT will assist in changing his gown and cleanse with warm packs. He then agreed. Pain Numeric Pain Scale: 5-Moderate Pain Location: Medial, Lower Location Body Site: Abdomen Pain Description: Pressure, Acute Mental Status Patient Orientation: Normal For Age Attachments: Oxygen, IV Transfers Functional [place] Measure 0=Not Assessed/NA 4=Minimal Assistance 1=Total Assistance 5=Supervision or Setup 2=Maximal Assistance 6=Modified [place] 3=Moderate Assistance 7=Complete IndependenceIRFPAI Quality Coding Scale 6 Independent with activity with or without an assistive device 5 Patient requires set up or clean up by helper. Patient completes activity by themselves 4 Supervision or touching assist (CGA). [place] provide cues , steadying assist 3 The helper provides less than half the effort to complete the activity 2 The helper provides more than half the effort to complete the activity 1 Dependent. The helper does all the effort to complete an activity 7 Patient refused to complete or attempt activity 9 The patient did not perform the activity before the current illness or injury 88 Not attempted due to Medical conditions or safety concerns Transfers (B, C, W/C) (FIM): 2 Scootin Supine to/from Sit: 2 Sit to/from Stand: 2 Bed to/from Chair: 2 max assist with all mobility secondary to abdominal pain and diminished abdominal musculature from surgery. Exercises Seated Therapy Exercises: Ankle pumps, Long arc quads Seated Reps: 10 Assessment Patient requires time to complete all functional tasks due to pain and weakness. PT to increase activity as tolerated by patient. PT Short Term Goals Short Term Goals Time Frame: Dec 25, 2016 Transfers (B,C,W/C) (FIM): 5 Gait (FIM): 5 Distance (FIM): 3=150 ft Gait Distance Comment: 150' Gait Level of Assist: 5 Gait Assistive Device: FWW PT Semi Truck Driver Goals Penitentiary Goals PT Semi Truck Driver Goals Time Frame: Jan 01, 2017 Transfers (B,C,W/C) (FIM): 7 Gait (FIM): 6 Gait distance (FIM): 3=150 ft Distance: 300' Gait Level of Assist: 6 Gait Assistive Device: FWW PT Plan Treatment/Plan Treatment Plan: Continue Plan of Care Treatment Plan: Bed Mobility, Education, Functional Activity Juli, Functional Strength, Gait, Safety, Therapeutic Exercise, Transfers Visits Per Week: 11 Minutes/Day (M-F): 30 Minutes/Day (Sat/Ferrara): 15 Time/GCodes Time In: 940 Time Out: 1003 Total Billed Treatment Time: 23 Total Billed Treatment 1 visit FA 15 min EX 8 min LIZET SARMIENTO PT Dec 19, 2016 10:20
--- NOTE | 2016-12-19 11:37 | Progress Note-Hospitalist ---
Progress Note HPI/CC on Admission CC: Fever with lethargy HPI: This is a 71yp[address] pt of Dr. Grajeda that is known to me from prior admissions that just completed [facility] 20 days of therapy when he presented to ER with fever and weakness. Pt was found to have severe sepsis. Pt was given appropriate IVF per protocol ABX. Pt was placed on triple antibiotic therapy of : Zosyn, Vancomycin, and Levaquin. Pt has EF of 20%. Cardiology and Pulmonology are consulted. Pt was placed on pressor therapy after center line placed. 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 Pt had C. diff w/pseudomembranous colitis. Pt is going to have colon resection. CT scan revealed pseudomembranous colitis. Pt needs to speak with Cardiology and Pulmonology. Palliative Care Review: Pt has pseudomembranous colitis and is scheduled for surgery. Pt is in bad shape. Patient Interview: Pt was informed that he has pneumonia and colitis. Pt states he is in pain currently. Pt states his stomach is in pain. Pt states he was fitted for a life vest. Physical exam was stable. Pt states he is breathing well currently. Pt states he spoke with Dr. Jaime. Pt states he will do what he needs to do to feel better. Scribed by Tereso Guerrero under the direct supervision of Dr. Brown. Progress Notes/Assess & Plan Date Seen 12/19/16 Admission Dx/Process Assessment: Severe sepsis due to pneumonia 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 difficile colitis Overall debility requiring [place] [facility] just discharged Diagonsis/Assessment & Plan Chart Review: No fever, Vitals stable, CXR increasing vascular congestion WBC 21.9, Hgb 9.6, K+ 3.1, UA negative timber bucker: Pt is still extubated. Pt will receive Lasix today. Pt looks good. Patient Interview: Pt was moved from bed to chair with help of two staff. Physical exam was stable. Scribed by Tereso Guerrero under the direct supervision of Dr. Brown. No fever, vital signs stable, pleasant, improved, sitting in chair Regular rate and rhythm, clear bilaterally diminished in the bases 2+ pitting edema Laboratory Tests 12/19/16 04:22 Assessment: Pseudomembranous colitis s/p colon resection w/diverting colostomy POD # 4 s/p VDRF following surgery now extubated Severe sepsis due to pneumonia Severe congestive heart failure with very depressed systolic function of 20 percent uses LifeVest COPD Recent pneumonia Recent C. difficile colitis Overall debility requiring [place] [facility] just discharged Plan: Very poor prognosis remains Lasix Antibiotics to continue Poor prognosis IRU? OCTAVIO BROWN DO Dec 19, 2016 11:37
[2016-12-19] MEDS: ENOXAPARIN 40 MG/0.4 ML (LOVENOX) SYR SC SCH (14:20)
--- NOTE | 2016-12-19 14:21 | Physical Therapy Progress Note ---
Therapy Progress Note Patient declined p.m. treatment due to fatigue. Patient does agree to begin to increase activity tomorrow. 1 ref LIZET SARMIENTO PT Dec 19, 2016 14:21
--- NOTE | 2016-12-19 16:58 | Progress Note ---
Subjective Subjective/Events-last exam Patient resting in bed. Even respirations. Easily aroused. C/o abd pain with palpation. Patient continues to produce stool. No N/V. No fever or chills. Objective Exam Vital Signs Date Time Temp Pulse Resp B/P (MAP) Pulse Ox O2 Delivery O2 Flow Rate FiO2 12/19/16 16:31 97.5 Nasal Cannula 2.00 12/19/16 16:30 98 2.00 12/19/16 13:54 95 2.00 12/19/16 13:00 92 12/19/16 12:10 98 2.00 12/19/16 12:00 97.4 Nasal Cannula 2.00 12/19/16 12:00 97.6 Nasal Cannula 2.00 12/19/16 09:28 98 12/19/16 08:40 98 1.00 12/19/16 08:27 98 1.00 12/19/16 07:39 98.1 Nasal Cannula 1.00 12/19/16 07:00 96 12/19/16 06:00 96 20 140/73 98 Nasal Cannula 1.00 12/19/16 05:00 100 11 137/113 98 Nasal Cannula 1.00 12/19/16 04:00 98.7 90 16 113/70 92 Nasal Cannula 1.00 12/19/16 04:00 95 1.00 12/19/16 03:00 103 20 98/75 95 Nasal Cannula 1.00 12/19/16 02:00 91 19 90/76 96 Nasal Cannula 1.00 12/19/16 01:02 97 12/19/16 01:00 98 20 98/78 96 Nasal Cannula 1.00 12/19/16 00:50 95 1.00 12/19/16 00:00 98.4 104 11 108/52 93 Nasal Cannula 1.00 12/19/16 00:00 100 1.00 12/18/16 23:00 99 16 94/70 96 Nasal Cannula 1.00 12/18/16 22:00 101 136/66 96 Nasal Cannula 1.00 12/18/16 21:00 100 15 146/78 96 Nasal Cannula 1.00 12/18/16 20:01 100 1.00 12/18/16 20:00 99.1 98 17 132/77 100 Nasal Cannula 1.00 12/18/16 19:58 99 1.00 12/18/16 19:14 96 12/18/16 19:00 100 18 136/61 96 Nasal Cannula 1.00 12/18/16 18:00 114 9 131/95 96 Room Air 12/18/16 17:00 98 21 131/81 97 Room Air I & O 12/19/16 07:00 Intake Total 2600 ml Output Total 760 ml Balance 1840 ml Capillary Refill : Less Than 3 Seconds General Appearance: No Apparent Distress, WD/WN HEENT: PERRL/EOMI Neck: Full Range of Motion, Normal Inspection Respiratory: No Accessory Muscle Use, No Respiratory Distress Cardiovascular: Regular Rate, Rhythm Gastrointestinal: soft, tenderness Extremity: Normal Capillary Refill, No Calf Tenderness, Pedal Edema, Swelling Neurologic/Psychiatric: Alert, Oriented x3 Skin: Normal Color, Warm/Dry Lymphatic: No Adenopathy Results Lab Laboratory Tests Test 12/17/16 18:05 12/18/16 04:33 12/18/16 06:38 12/19/16 04:22 Range/Units Urine Color YELLOW Urine Clarity CLEAR Urine pH 5 5-9 Urine Specific [place] 1.020 1.016-1.022 Urine Protein 2+ H NEGATIVE Urine Glucose (UA) NEGATIVE NEGATIVE Urine Ketones 1+ H NEGATIVE Urine Nitrite NEGATIVE NEGATIVE Urine Bilirubin NEGATIVE NEGATIVE Urine Urobilinogen NORMAL NORMAL MG/DL Urine Leukocyte Esterase 1+ H NEGATIVE Urine RBC (Auto) 1+ H NEGATIVE Urine RBC RARE /HPF Urine WBC RARE /HPF Urine Squamous Epithelial Cells NONE /HPF Urine Crystals NONE /LPF Urine Bacteria NEGATIVE /HPF Urine Casts NONE /LPF Urine Mucus NEGATIVE /LPF Urine Culture Indicated NO White Blood Count 26.3 H 21.9 H 4.3-11.0 10^3/uL Red Blood Count 3.59 L 3.53 L 4.35-5.85 10^6/uL Hemoglobin 9.6 L 9.6 L 13.3-17.7 G/DL Hematocrit 30 L 29 L 40-54 % Mean Corpuscular Volume 83 83 80-99 FL Mean Corpuscular Hemoglobin 27 27 25-34 PG Mean Corpuscular Hemoglobin Concent 32 33 32-36 G/DL Red Cell Distribution Width 18.0 H 17.9 H 10.0-14.5 % Platelet Count 482 H 449 H 130-400 10^3/uL Mean Platelet Volume 8.9 9.0 7.4-10.4 FL Neutrophils (%) (Auto) 81 H 76 H 42-75 % Lymphocytes (%) (Auto) 10 L 12 12-44 % Monocytes (%) (Auto) 9 11 0-12 % Eosinophils (%) (Auto) 0 0 0-10 % Basophils (%) (Auto) 0 0 0-10 % Neutrophils # (Auto) 21.3 H 16.7 H 1.8-7.8 X 10^3 Lymphocytes # (Auto) 2.6 2.7 1.0-4.0 X 10^3 Monocytes # (Auto) 2.2 H 2.4 H 0.0-1.0 X 10^3 Eosinophils # (Auto) 0.1 0.1 0.0-0.3 10^3/uL Basophils # (Auto) 0.1 0.1 0.0-0.1 10^3/uL Sodium Level 139 139 135-145 MMOL/L Potassium Level 3.2 L 3.1 L 3.6-5.0 MMOL/L Chloride Level 110 H 111 H 98-107 MMOL/L Carbon Dioxide Level 21 20 L 21-32 MMOL/L Anion Gap 8 8 5-14 MMOL/L Blood Urea Nitrogen 7 6 L 7-18 MG/DL Creatinine 0.75 0.70 0.60-1.30 MG/DL Estimat Glomerular Filtration Rate > 60 > 60 BUN/Creatinine Ratio 9 9 Glucose Level 66 L 70 70-105 MG/DL Calcium Level 6.7 L 6.6 L 8.5-10.1 MG/DL Phosphorus Level 1.6 L 1.6 L 2.3-4.7 MG/DL Magnesium Level 1.5 L 1.5 L 1.8-2.4 MG/DL Glucometer 65 L 70-110 MG/DL Test 12/19/16 10:35 12/19/16 12:19 Range/Units Vancomycin Level Trough 16.2 10.0-20.0 UG/ML Lab Scanned Report Transfusion Reaction Form [id number] Laboratory Tests 12/19/16 04:22: White Blood Count 21.9H, Red Blood Count 3.53L, Hemoglobin 9.6L, Hematocrit 29L , Mean Corpuscular Volume 83, Mean Corpuscular Hemoglobin 27, Mean Corpuscular Hemoglobin Concent 33, Red Cell Distribution Width 17.9H, Platelet Count 449H, Mean Platelet Volume 9.0, Neutrophils (%) (Auto) 76H, Lymphocytes (%) (Auto) 12 , Monocytes (%) (Auto) 11, Eosinophils (%) (Auto) 0, Basophils (%) (Auto) 0, Neutrophils # (Auto) 16.7H, Lymphocytes # (Auto) 2.7, Monocytes # (Auto) 2.4H, Eosinophils # (Auto) 0.1, Basophils # (Auto) 0.1, Sodium Level 139, Potassium Level 3.1L, Chloride Level 111H, Carbon Dioxide Level 20L, Anion Gap 8, Blood Urea Nitrogen 6L, Creatinine 0.70, Estimat Glomerular Filtration Rate > 60, BUN/ Creatinine Ratio 9, Glucose Level 70, Calcium Level 6.6L, Phosphorus Level 1.6L , Magnesium Level 1.5L 12/19/16 10:35: Vancomycin Level Trough 16.2 12/19/16 12:19: Lab Scanned Report Transfusion Reaction Form Microbiology 12/14/16 Blood Culture - Preliminary, Resulted No growth 12/15/16 C. difficile GDH Antigen & Toxins - Final, Complete 12/14/16 Urine Culture - Final, Complete Radiology NAME: ALIX BOWEN [facility] REC#: [id number] PT STATUS: ADM IN : 1945 PHYSICIAN: CHAYITO DE LA ROSA DO ADMIT DATE: 12/14/16/ICU Signed Date of Exam: 12/19/16 CHEST 1 VIEW, AP/PA ONLY INDICATION: Dyspnea. TECHNIQUE: Single-view chest 4:59 AM. CORRELATION STUDY: 12/18/2016. FINDINGS: Heart size, mediastinal configuration stable. Vasculature remains prominent. Scattered bilateral pulmonary infiltrates and/or edema has increased since prior study. Lung pineda are hyperinflated. Right IJ central line relatively stable, tip over the proximal right atrium. IMPRESSION: There appears to be increasing infiltrate and/or edema about particularly the perihilar regions of both lung pineda. 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 leukocytosis. WBC down to 21.9 on triple abx regimen, Zosyn, Levaquin and Vanco. Severe sepsis due to pneumonia Severe congestive heart failure ambulate. PT. Continue to monitor patient labs and vitals. Hypokalemia, hypomagnesemia, replace and monitor. Mag 1.5- Replaced Clinical Quality Measures DVT/VTE Risk/Contraindication: Risk Factor Score Per Nursin RFS Level Per Nursing on Admit: 4+=Very High NELSON MATTHEWS APRN Dec 19, 2016 16:58
[2016-12-20] VITALS (14 sets, daily range): BP systolic 87–149; BP diastolic 55–84
[2016-12-20] MEDS: VANCOMYCIN ORAL 250 MG/5 ML 60 ML PO SCH ×8 (02:07→20:54)
[2016-12-20] MEDS: NS IV 1000 ML 1,000 ML IV SCH ×2 (03:31→13:23)
[2016-12-20 05:10] LABS: BASOPHILS # (AUTO) 0.1 10^3/uL (0.0-0.1); BASOPHILS % (AUTO) 0 % (0-10); EOSINOPHILS # (AUTO) 0.2 10^3/uL (0.0-0.3); EOSINOPHILS % (AUTO) 1 % (0-10); LYMPHOCYTES # (AUTO) 2.7 X 10^3 (1.0-4.0); LYMPHOCYTES % (AUTO) 15 % (12-44); MEAN CORPUSCULAR HEMOGLOBIN 27 PG (25-34); MEAN CORPUSCULAR HGB CONC 32 G/DL (32-36); MEAN CORPUSCULAR VOLUME 83 FL (80-99); MEAN PLATELET VOLUME 9.1 FL (7.4-10.4); MONOCYTES # (AUTO) 2.1 X 10^3 (0.0-1.0); MONOCYTES % (AUTO) 12 % (0-12); NEUTROPHILS # (AUTO) 13.1 X 10^3 (1.8-7.8); NEUTROPHILS % (AUTO) 72 % (42-75); PLATELET COUNT 417 10^3/uL (130-400); RED BLOOD COUNT 3.29 10^6/uL (4.35-5.85); RED CELL DISTRIBUTION WIDTH 18.2 % (10.0-14.5); WHITE BLOOD COUNT 18.1 10^3/uL (4.3-11.0)
[2016-12-20 05:31] LABS: ANION GAP 6 MMOL/L (5-14); BLOOD UREA NITROGEN 5 MG/DL (7-18); BUN/CREATININE RATIO 7; CALCIUM 6.6 MG/DL (8.5-10.1); CARBON DIOXIDE 22 MMOL/L (21-32); CHLORIDE 111 MMOL/L (98-107); CREATININE SERUM 0.71 MG/DL (0.60-1.30); GFR ESTIMATED > 60; GLUCOSE 77 MG/DL (70-105); MAGNESIUM 1.4 MG/DL (1.8-2.4); PHOSPHORUS 1.5 MG/DL (2.3-4.7); POTASSIUM 3.2 MMOL/L (3.6-5.0); SODIUM 139 MMOL/L (135-145)
[2016-12-20] MEDS: KCL 20 MEQ TAB (K-DUR) PO SCH (05:43)
[2016-12-20] MEDS: POTASSIUM CL 10MEQ/50ML IVPB 50 ML IV SCH ×5 (05:43→08:49)
[2016-12-20] MEDS: MAGNESIUM 1 GM/100 ML IVPB 100 ML IV SCH ×3 (05:43→06:55)
[2016-12-20] MEDS: PIPERACILLIN/TAZOBACTAM 4.5 GM/NS 100 ML IVPB IV SCH ×6 (05:49→22:09)
--- NOTE | 2016-12-20 07:05 | Pulmonary Progress Note ---
Subjective Subjective/Events-last exam Pt is doing well no complications noted. Exam Exam Vital Signs Date Time Temp Pulse Resp B/P (MAP) Pulse Ox O2 Delivery O2 Flow Rate FiO2 12/20/16 05:55 80 10 141/73 95 Nasal Cannula 2.00 12/20/16 05:00 81 16 125/71 95 Nasal Cannula 2.00 12/20/16 04:50 96 2.00 12/20/16 04:40 98.6 80 12 130/70 92 Nasal Cannula 2.00 12/20/16 03:00 84 16 118/84 95 Nasal Cannula 2.00 12/20/16 02:00 80 16 94/84 92 Nasal Cannula 2.00 12/20/16 01:00 82 12/20/16 01:00 88 15 87/58 95 Nasal Cannula 2.00 12/20/16 00:10 96 2.00 12/20/16 00:00 98.0 84 13 113/72 96 Nasal Cannula 2.00 12/19/16 23:00 85 12 98/66 94 Nasal Cannula 2.00 12/19/16 22:00 92 12 90/74 95 Nasal Cannula 2.00 12/19/16 21:00 88 16 132/62 92 Nasal Cannula 2.00 12/19/16 20:00 94 2.00 12/19/16 20:00 93 14 110/81 92 Nasal Cannula 2.00 12/19/16 19:52 95 1.00 12/19/16 19:00 97.9 92 18 133/75 94 Nasal Cannula 2.00 12/19/16 19:00 81 12/19/16 18:00 85 18 92 Nasal Cannula 2.00 12/19/16 18:00 85 18 Nasal Cannula 2.00 12/19/16 17:00 89 17 110/77 Nasal Cannula 2.00 12/19/16 17:00 89 17 Nasal Cannula 2.00 12/19/16 16:31 97.5 Nasal Cannula 2.00 12/19/16 16:30 98 2.00 12/19/16 16:00 80 18 95 Nasal Cannula 2.00 12/19/16 15:00 86 14 123/74 93 Nasal Cannula 2.00 12/19/16 15:00 86 14 123/74 93 Nasal Cannula 2.00 12/19/16 14:00 87 19 124/75 100 Nasal Cannula 2.00 12/19/16 14:00 87 19 124/75 100 Nasal Cannula 2.00 12/19/16 13:54 95 2.00 12/19/16 13:00 90 19 146/71 96 Nasal Cannula 2.00 12/19/16 13:00 92 12/19/16 13:00 90 19 146/71 96 Nasal Cannula 2.00 12/19/16 12:10 98 2.00 12/19/16 12:00 97.4 Nasal Cannula 2.00 12/19/16 12:00 97.6 Nasal Cannula 2.00 12/19/16 11:00 111 20 115/77 95 Nasal Cannula 2.00 12/19/16 10:00 108 20 108/86 Nasal Cannula 2.00 12/19/16 09:28 98 12/19/16 09:00 96 17 117/82 96 Nasal Cannula 2.00 12/19/16 08:40 98 1.00 12/19/16 08:27 98 1.00 12/19/16 07:39 98.1 Nasal Cannula 1.00 I & O 12/20/16 07:00 Intake Total 3850 ml Output Total 900 ml Balance 2950 ml General Appearance: No Apparent Distress, WD/WN HEENT: PERRL/EOMI Neck: Full Range of Motion, Normal Inspection Respiratory: No Accessory Muscle Use, No Respiratory Distress Cardiovascular: Regular Rate, Rhythm Capillary Refill: Less Than 3 Seconds Gastrointestinal: soft, tenderness Extremity: Normal Capillary Refill, No Calf Tenderness, Pedal Edema, Swelling Neurologic/Psychiatric: Alert, Oriented x3 Skin: Normal Color, Warm/Dry Lymphatic: No Adenopathy Results Lab Laboratory Tests 12/19/16 04:22 12/20/16 04:45 Assessment/Plan Assessment/Plan Cdiff colitis s/p Extended Left Hemicolectomy with end Colostomy /Pam's Procedure -umesh Duong zosyn Severe Sepsis - improving Volume overload secondary to IVF with pulmonary edema -Decrease IVF and give 40mg of IV lasix x 1 and check BNP Anemia -monitor LE Bilateral cellulitis -monitor and wound care following To floor when ok with surgery Clinical Quality Measures DVT/VTE Risk/Contraindication: Risk Factor Score Per Nursin RFS Level Per Nursing on Admit: 4+=Very High CHAYITO DE LA ROSA DO Dec 20, 2016 07:05
[2016-12-20] MEDS ORDERED: FUROSEMIDE 40 MG/4 ML INJ (LASIX) IVP NR (07:15)
--- NOTE | 2016-12-20 08:19 | Cardiology Progress Note ---
Subjective Subjective/Events-last exam patient is laying down in bed, still having some abdominal cramps, passing gas, mild shortness of breath. Review of Systems General: No Chills, No Night Sweats, No Fatigue, No Malaise, No Appetite, No Other HEENT: No Head Aches, No Visual Changes, No Eye Pain, No Ear Pain, No Dysphasia , No Sinus Congestion, No Post Nasal Drip, No Sore Throat, No Other Pulmonary: Dyspnea, No Cough, No Pleuritic Chest Pain, No Other Cardiovascular: No: Chest Pain, Edema, Lt Headedness, Orthopnea, Other, Palpitations, Paroxysmal Noc. Dyspnea Objective-Cardiology Exam Last Set of Vital Signs Vital Signs 12/16/16 12/20/16 12/20/16 11:00 04:40 05:55 Temp 98.6 Pulse 80 Resp 10 B/P (MAP) 141/73 Pulse Ox 95 O2 Delivery Nasal Cannula O2 Flow Rate 2.00 FiO2 21 Capillary Refill : Less Than 3 Seconds I&O Intake and Output 12/19/16 23:59 Intake Total 2545 ml Output Total 750 ml Balance 1795 ml Intake Oral 600 ml IV Total 1945 ml Output Urine Total 250 ml Stool Total 500 ml # Voids 8 # Urine Diapers 3 General: Alert, Cooperative HEENT: Atraumatic Neck: Supple, No JVD, No Thyromegaly Lungs: Normal Air Movement, Other (bilateral rhonchi) Heart: Regular Rate, Normal S1, Normal S2, No Murmurs Abdomen: Soft Extremities: No Clubbing, No Cyanosis, No Edema, Normal Pulses, No Tenderness/ Swelling Skin: Other (right anterior calf wound --- 2.7 x 1.8 x 0.1 cm, 100% eschar, no drainage.) Neuro: Normal Speech, Normal Tone Psych/Mental Status: Mood NL Results Lab Laboratory Tests 12/20/16 04:45 A/P-Cardiology Admission Diagnosis Sepsis C. difficile colitis peripheral arterial disease COPD Assessment/Plan C. difficile colitis, status post extended left hemicolectomy with Pam procedure, recovering slowly, passing gas, some improvement. Sepsis, improving, continue current antibiotic, continue to monitor Short of breath, improving, I will give one dose of Lasix IV and monitor response. Hypokalemia, hypomagnesemia, replaced, continue to monitor Peripheral edema, I will restart Lasix and monitor closely. Congestive heart failure, nonischemic cardiomyopathy, acute on chronic left ventricular systolic dysfunction with most recent ejection fraction improved to 50 percent. Maintained on beta gurpreet and Entresto, has been on hold, continue to monitor Status post anoxic encephalopathy and pneumonia and sepsis early in October, improved with aggressive therapy. Back to his baseline. Continue to monitor. Status post acute renal failure. Improved, monitor renal function closely Peripheral vascular disease with history of nonhealing wounds bilaterally. Peripheral angiogram done 12/04/16 revealed moderate atherosclerotic disease on the left lower extremity, the anterior tibial artery is severely diseased on the left lower extremity but the ulcer on the left lower extremity has healed. Medical therapy is recommended. Moderate disease of the right lower extremity with good flow, with three-vessel flow down to the foot. Continue medical management at this time and continue to monitor. Small infrarenal abdominal aortic aneurysm noted during peripheral angiogram. Continue to monitor Hypertension, restart Lasix and monitor blood pressure. Hyperlipidemia, continue to hold statin. Hyperthyroidism, history of hypothyroidism and Levothroid, managed by primary care physician History of pulmonary hypertension, continue to monitor History of rheumatoid arthritis. COPD, managed and followed by primary care physician Tobaccoism, patient has stopped smoking after the last admission. Encouraged to continue with smoking cessation History of chronic narcotic use, urine drug screen is positive for opioids Clinical Quality Measures DVT/VTE Risk/Contraindication: Risk Factor Score Per Nursin RFS Level Per Nursing on Admit: 4+=Very High TORY HALL MD Dec 20, 2016 08:19
[2016-12-20] MEDS: metroNIDAZOLE 500 MG (FLAGYL) TAB PO SCH ×3 (08:40→20:57)
[2016-12-20] MEDS: FAMOTIDINE 20MG/2ML IV (PEPCID) IV SCH ×2 (08:40→20:57)
[2016-12-20] MEDS: RT-ALBUTEROL/IPRATROPIUM 3 ML (DUONEB) VIAL INH SCH ×3 (09:07→18:57)
--- NOTE | 2016-12-20 09:16 | Progress Note ---
Subjective Subjective/Events-last exam Pt seen and examined. He states he still feels "bad", but when questioned he means he wants to get better so he can get out of hospital. Abd pain is minimal, controlled with meds. Denies N/V Review of Systems General: No Chills, No Night Sweats HEENT: No Head Aches, No Visual Changes Pulmonary: No Dyspnea, No Cough Cardiovascular: No: Chest Pain, Palpitations Gastrointestinal: Abdominal Pain, Diarrhea, No: Hematochezia Objective Exam Vital Signs Date Time Temp Pulse Resp B/P (MAP) Pulse Ox O2 Delivery O2 Flow Rate FiO2 12/20/16 08:38 97.1 81 12 117/66 96 Room Air 12/20/16 05:55 80 10 141/73 95 Nasal Cannula 2.00 12/20/16 05:00 81 16 125/71 95 Nasal Cannula 2.00 12/20/16 04:50 96 2.00 12/20/16 04:40 98.6 80 12 130/70 92 Nasal Cannula 2.00 12/20/16 03:00 84 16 118/84 95 Nasal Cannula 2.00 12/20/16 02:00 80 16 94/84 92 Nasal Cannula 2.00 12/20/16 01:00 82 12/20/16 01:00 88 15 87/58 95 Nasal Cannula 2.00 12/20/16 00:10 96 2.00 12/20/16 00:00 98.0 84 13 113/72 96 Nasal Cannula 2.00 12/19/16 23:00 85 12 98/66 94 Nasal Cannula 2.00 12/19/16 22:00 92 12 90/74 95 Nasal Cannula 2.00 12/19/16 21:00 88 16 132/62 92 Nasal Cannula 2.00 12/19/16 20:00 94 2.00 12/19/16 20:00 93 14 110/81 92 Nasal Cannula 2.00 12/19/16 19:52 95 1.00 12/19/16 19:00 97.9 92 18 133/75 94 Nasal Cannula 2.00 12/19/16 19:00 81 12/19/16 18:00 85 18 92 Nasal Cannula 2.00 12/19/16 18:00 85 18 Nasal Cannula 2.00 12/19/16 17:00 89 17 110/77 Nasal Cannula 2.00 12/19/16 17:00 89 17 Nasal Cannula 2.00 12/19/16 16:31 97.5 Nasal Cannula 2.00 12/19/16 16:30 98 2.00 12/19/16 16:00 80 18 95 Nasal Cannula 2.00 12/19/16 15:00 86 14 123/74 93 Nasal Cannula 2.00 12/19/16 15:00 86 14 123/74 93 Nasal Cannula 2.00 12/19/16 14:00 87 19 124/75 100 Nasal Cannula 2.00 12/19/16 14:00 87 19 124/75 100 Nasal Cannula 2.00 12/19/16 13:54 95 2.00 12/19/16 13:00 90 19 146/71 96 Nasal Cannula 2.00 12/19/16 13:00 92 12/19/16 13:00 90 19 146/71 96 Nasal Cannula 2.00 12/19/16 12:10 98 2.00 12/19/16 12:00 97.4 Nasal Cannula 2.00 12/19/16 12:00 97.6 Nasal Cannula 2.00 12/19/16 11:00 111 20 115/77 95 Nasal Cannula 2.00 12/19/16 10:00 108 20 108/86 Nasal Cannula 2.00 12/19/16 09:28 98 I & O 12/20/16 07:00 Intake Total 3850 ml Output Total 900 ml Balance 2950 ml Capillary Refill : Less Than 3 Seconds General Appearance: No Apparent Distress, WD/WN HEENT: PERRL/EOMI Respiratory: No Accessory Muscle Use, No Respiratory Distress, Crackles Cardiovascular: Regular Rate, Rhythm, No Murmur Gastrointestinal: soft, tenderness (mild with palpation mostly), other ( midline incision is c/d/i. Ostomy is pink and functioning, still edematous) Extremity: Normal Capillary Refill, No Calf Tenderness, Pedal Edema, Swelling ( in hands is much better than before) Neurologic/Psychiatric: Alert, Oriented x3 Skin: Warm/Dry, Pallor (very mild) Lymphatic: No Adenopathy Results Lab Laboratory Tests 12/19/16 10:35: Vancomycin Level Trough 16.2 12/19/16 12:19: Lab Scanned Report Transfusion Reaction Form 12/20/16 04:45: White Blood Count 18.1H, Red Blood Count 3.29L, Hemoglobin 8.8L, Hematocrit 27L , Mean Corpuscular Volume 83, Mean Corpuscular Hemoglobin 27, Mean Corpuscular Hemoglobin Concent 32, Red Cell Distribution Width 18.2H, Platelet Count 417H, Mean Platelet Volume 9.1, Neutrophils (%) (Auto) 72, Lymphocytes (%) (Auto) 15, Monocytes (%) (Auto) 12, Eosinophils (%) (Auto) 1, Basophils (%) (Auto) 0, Neutrophils # (Auto) 13.1H, Lymphocytes # (Auto) 2.7, Monocytes # (Auto) 2.1H, Eosinophils # (Auto) 0.2, Basophils # (Auto) 0.1, Sodium Level 139, Potassium Level 3.2L, Chloride Level 111H, Carbon Dioxide Level 22, Anion Gap 6, Blood Urea Nitrogen 5L, Creatinine 0.71, Estimat Glomerular Filtration Rate > 60, BUN/ Creatinine Ratio 7, Glucose Level 77, Calcium Level 6.6L, Phosphorus Level 1.5L , Magnesium Level 1.4L, B-Type Natriuretic Peptide 503.7H Microbiology 12/14/16 Blood Culture - Preliminary, Resulted No growth 12/15/16 C. 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 -encourage IS use, ambulation and will increase diet. Ok to go to 4th floor leukocytosis. WBC trending down on triple abx regimen, Zosyn, Levaquin and Vanco. -??secondary to C. Diff vs. pulmonary Severe sepsis due to pneumonia - pt off levophed Severe congestive heart failure PT. Continue to monitor patient labs and vitals. Hypokalemia, hypomagnesemia, Continue to replace and monitor. Clinical Quality Measures DVT/VTE Risk/Contraindication: Risk Factor Score Per Nursin RFS Level Per Nursing on Admit: 4+=Very High NATALIYA BOSWELL DO Dec 20, 2016 09:16
--- NOTE | 2016-12-20 09:40 | Diagnostic Imaging Report ---
INDICATION: Dyspnea. Frontal chest obtained at 4:51 a.m. and compared to yesterday. Heart is borderline in size. There are unchanged bilateral perihilar infiltrates with central vascular congestion. There is no pneumothorax or pleural fluid. Right IJ central catheter is unchanged. IMPRESSION: Mild cardiomegaly. Unchanged bilateral perihilar infiltrates and central vascular congestion. No new abnormality. Dictated by: Dictated on workstation # [id number]
--- NOTE | 2016-12-20 09:59 | Physical Therapy Daily Note ---
PT Daily Note-Current Subjective Patient agrees to PT. Pain Numeric Pain Scale: 5-Moderate Pain Location: Medial, Lower Location Body Site: Abdomen Pain Description: Acute Mental Status Patient Orientation: Normal For Age Attachments: IV Transfers Functional [place] Measure 0=Not Assessed/NA 4=Minimal Assistance 1=Total Assistance 5=Supervision or Setup 2=Maximal Assistance 6=Modified [place] 3=Moderate Assistance 7=Complete IndependenceIRFPAI Quality Coding Scale 6 Independent with activity with or without an assistive device 5 Patient requires set up or clean up by helper. Patient completes activity by themselves 4 Supervision or touching assist (CGA). [place] provide cues , steadying assist 3 The helper provides less than half the effort to complete the activity 2 The helper provides more than half the effort to complete the activity 1 Dependent. The helper does all the effort to complete an activity 7 Patient refused to complete or attempt activity 9 The patient did not perform the activity before the current illness or injury 88 Not attempted due to Medical conditions or safety concerns Transfers (B, C, W/C) (FIM): 1 Scootin Rollin Supine to/from Sit: 1 Sit to/from Stand: 1 Bed to/from Chair: 1 Patient continues to have difficulty with sit to stand and SPT transfers due to weakness and RA. Exercises Supine Ex: Ankle pumps, Quad Set, Heel Slides Supine Reps: 10 Seated Therapy Exercises: Ankle pumps, Long arc quads Seated Reps: 10 Assessment Patient tolerates minimal activity as this time. PT to increase activity as tolerated by patient. Patient reiterates, he does not ambulate much PLOF. PT Short Term Goals Short Term Goals Time Frame: Dec 25, 2016 Transfers (B,C,W/C) (FIM): 5 Gait (FIM): 5 Distance (FIM): 3=150 ft Gait Distance Comment: 150' Gait Level of Assist: 5 Gait Assistive Device: FWW PT Assisted Goals Assisted Goals PT Assisted Goals Time Frame: Jan 01, 2017 Transfers (B,C,W/C) (FIM): 7 Gait (FIM): 6 Gait distance (FIM): 3=150 ft Distance: 300' Gait Level of Assist: 6 Gait Assistive Device: FWW PT Plan Treatment/Plan Treatment Plan: Continue Plan of Care Treatment Plan: Bed Mobility, Education, Functional Activity Juli, Functional Strength, Gait, Safety, Therapeutic Exercise, Transfers Visits Per Week: 11 Minutes/Day (M-F): 30 Minutes/Day (Sat/Ferrara): 15 Time/GCodes Time In: 915 Time Out: 938 Total Billed Treatment Time: 23 Total Billed Treatment 1 visit FA 15 min EX 8 min LIZET SARMIENTO PT Dec 20, 2016 09:59
[2016-12-20] MEDS: fentaNYL INJECTION 1,000 MCG in NS (IVPB) 80 ML IV SCH (11:17)
--- NOTE | 2016-12-20 12:17 | Progress Note-Hospitalist ---
Subjective HPI/CC On Admission CC: Fever with lethargy HPI: This is a 71ypWM pt of Dr. Grajeda that is known to me from prior admissions that just completed NH 20 days of therapy when he presented to ER with fever and weakness. Pt was found to have severe sepsis. Pt was given appropriate IVF per protocol ABX. Pt was placed on triple antibiotic therapy of : Zosyn, Vancomycin, and Levaquin. Pt has EF of 20%. Cardiology and Pulmonology are consulted. Pt was placed on pressor therapy after center line placed. 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 Pt had C. diff w/pseudomembranous colitis. Pt is going to have colon resection. CT scan revealed pseudomembranous colitis. Pt needs to speak with Cardiology and Pulmonology. Palliative Care Review: Pt has pseudomembranous colitis and is scheduled for surgery. Pt is in bad shape. Patient Interview: Pt was informed that he has pneumonia and colitis. Pt states he is in pain currently. Pt states his stomach is in pain. Pt states he was fitted for a life vest. Physical exam was stable. Pt states he is breathing well currently. Pt states he spoke with Dr. Jaime. Pt states he will do what he needs to do to feel better. Scribed by Tereso Guerrero under the direct supervision of Dr. Urbano. Date Seen 12/20/16 Subjective/Events-last exam PT. was sitting up eating full liquid diet denying abdominal pain. He is going to be transferred down floor later today. Objective Exam Vital Signs Vital Sign - Last 12Hours 12/14/16 12/14/16 12/15/16 14:21 16:27 19:15 Temp 102.6 Pulse 122 Resp 20 B/P (MAP) 106/92 Pulse Ox 98 O2 Delivery Nasal Cannula O2 Flow Rate 2.00 FiO2 50 Capillary Refill : Less Than 3 Seconds General Appearance: Chronically ill Respiratory: No Accessory Muscle Use, No Respiratory Distress, Other (Restasis surprisingly clear he has some diminished breath sounds posteriorly but did not hear any wheezes rales or rhonchi today which was surprising.) Cardiovascular: Regular Rate, Rhythm, No Gallop, No Murmur, Other (1-2+ edema of the upper extremities and 2+ edema lower extremities are noted.) Results/Procedures Lab Laboratory Tests 12/20/16 04:45 Assessment/Plan Assessment and Plan Assess & Plan/Chief Complaint 1. Status post left hemicolectomy for toxic megacolon due to C. difficile colitis patient slowly improving. His white count is slowly coming down now and he is regaining appetite. Agree with transfer to the floor. FLOR CARABALLO MD Dec 20, 2016 12:17
--- NOTE | 2016-12-20 13:51 | Physical Therapy Progress Note ---
Therapy Progress Note Patient declined PT this p.m. secondary to feeling anxious about finances and inability to pay for continued care "out of pocket". PT consulted with SW about the situation and SW will return to room and discuss options with patient and his spouse. PT will resume treatment in a.m. 1 ref LIZET SARMIENTO PT Dec 20, 2016 13:51
[2016-12-20] MEDS: ENOXAPARIN 40 MG/0.4 ML (LOVENOX) SYR SC SCH (14:08)
[2016-12-21 00:20] VITALS: BP 110/69
[2016-12-21] MEDS: NS IV 1000 ML 1,000 ML IV SCH ×2 (00:26→11:41)
[2016-12-21] MEDS: fentaNYL INJECTION 1,000 MCG in NS (IVPB) 80 ML IV SCH (01:33)
[2016-12-21] MEDS: VANCOMYCIN ORAL 250 MG/5 ML 60 ML PO SCH ×4 (01:41→08:00)
[2016-12-21 04:09] LABS: BASOPHILS # (AUTO) 0.1 10^3/uL (0.0-0.1); BASOPHILS % (AUTO) 1 % (0-10); EOSINOPHILS # (AUTO) 0.2 10^3/uL (0.0-0.3); EOSINOPHILS % (AUTO) 2 % (0-10); LYMPHOCYTES # (AUTO) 2.8 X 10^3 (1.0-4.0); LYMPHOCYTES % (AUTO) 18 % (12-44); MEAN CORPUSCULAR HEMOGLOBIN 27 PG (25-34); MEAN CORPUSCULAR HGB CONC 32 G/DL (32-36); MEAN CORPUSCULAR VOLUME 83 FL (80-99); MEAN PLATELET VOLUME 9.3 FL (7.4-10.4); MONOCYTES # (AUTO) 1.6 X 10^3 (0.0-1.0); MONOCYTES % (AUTO) 10 % (0-12); NEUTROPHILS # (AUTO) 10.9 X 10^3 (1.8-7.8); NEUTROPHILS % (AUTO) 70 % (42-75); PLATELET COUNT 384 10^3/uL (130-400); RED BLOOD COUNT 3.14 10^6/uL (4.35-5.85); RED CELL DISTRIBUTION WIDTH 18.4 % (10.0-14.5); WHITE BLOOD COUNT 15.6 10^3/uL (4.3-11.0)
[2016-12-21 04:20] VITALS: BP 102/60
[2016-12-21 04:33] LABS: ANION GAP 8 MMOL/L (5-14); BLOOD UREA NITROGEN 4 MG/DL (7-18); BUN/CREATININE RATIO 6; CALCIUM 6.6 MG/DL (8.5-10.1); CARBON DIOXIDE 21 MMOL/L (21-32); CHLORIDE 110 MMOL/L (98-107); CREATININE SERUM 0.68 MG/DL (0.60-1.30); GFR ESTIMATED > 60; GLUCOSE 79 MG/DL (70-105); MAGNESIUM 1.4 MG/DL (1.8-2.4); PHOSPHORUS 1.6 MG/DL (2.3-4.7); POTASSIUM 3.1 MMOL/L (3.6-5.0); SODIUM 139 MMOL/L (135-145)
[2016-12-21] MEDS: PIPERACILLIN/TAZOBACTAM 4.5 GM/NS 100 ML IVPB IV SCH ×2 (06:09)
[2016-12-21 07:36] VITALS: BP 122/67
[2016-12-21] MEDS: RT-ALBUTEROL/IPRATROPIUM 3 ML (DUONEB) VIAL INH SCH (08:04)
--- NOTE | 2016-12-21 08:28 | Progress Note-Hospitalist ---
Subjective HPI/CC On Admission CC: Fever with lethargy HPI: This is a 71ypWM pt of Dr. Grajeda that is known to me from prior admissions that just completed NH 20 days of therapy when he presented to ER with fever and weakness. Pt was found to have severe sepsis. Pt was given appropriate IVF per protocol ABX. Pt was placed on triple antibiotic therapy of : Zosyn, Vancomycin, and Levaquin. Pt has EF of 20%. Cardiology and Pulmonology are consulted. Pt was placed on pressor therapy after center line placed. 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 terminal worker: Pt is going to surgery today. Pt had C. diff w/pseudomembranous colitis. Pt is going to have colon resection. CT scan revealed pseudomembranous colitis. Pt needs to speak with Cardiology and Pulmonology. Palliative Care Review: Pt has pseudomembranous colitis and is scheduled for surgery. Pt is in bad shape. Patient Interview: Pt was informed that he has pneumonia and colitis. Pt states he is in pain currently. Pt states his stomach is in pain. Pt states he was fitted for a life vest. Physical exam was stable. Pt states he is breathing well currently. Pt states he spoke with Dr. Jaime. Pt states he will do what he needs to do to feel better. Scribed by Tereso Guerrero under the direct supervision of Dr. Urbano. Date Seen 12/21/16 Subjective/Events-last exam Patient was finishing her breathing treatments upon my arrival this morning. He voices no complaints denying abdominal pain at rest. Objective Exam Vital Signs Vital Sign - Last 12Hours 12/15/16 12/15/16 12/15/16 00:00 00:01 19:15 Temp 100.8 Pulse 114 Resp 16 B/P (MAP) 79/44 Pulse Ox 97 O2 Delivery Room Air O2 Flow Rate 2.00 FiO2 50 Capillary Refill : Less Than 3 Seconds General Appearance: No Apparent Distress, Chronically ill Respiratory: Normal Breath Sounds, No Accessory Muscle Use, No Respiratory Distress, Other (Chest is clear anteriorly) Cardiovascular: Regular Rate, Rhythm, No Gallop, No JVD, No Murmur Gastrointestinal: Normal Bowel Sounds, No Organomegaly, Soft Extremity: Pedal Edema Results/Procedures Lab Laboratory Tests 12/21/16 04:00 Assessment/Plan Assessment and Plan Assess & Plan/Chief Complaint 1. Status post left hemicolectomy for toxic megacolon due to C. difficile colitis patient slowly improving. His white count is slowly coming down now and he is regaining appetite. FLOR CARABALLO MD Dec 21, 2016 08:28
[2016-12-21] MEDS: FAMOTIDINE 20MG/2ML IV (PEPCID) IV SCH (08:59)
[2016-12-21] MEDS: metroNIDAZOLE 500 MG (FLAGYL) TAB PO SCH ×2 (08:59→11:43)
--- NOTE | 2016-12-21 09:19 | Pulmonary Progress Note ---
Subjective Subjective/Events-last exam no complicaitons noted Exam Exam Vital Signs Date Time Temp Pulse Resp B/P (MAP) Pulse Ox O2 Delivery O2 Flow Rate FiO2 12/21/16 07:58 92 12/21/16 07:36 96.7 66 20 122/67 92 Room Air 12/21/16 04:20 98.9 87 18 102/60 92 Room Air 12/21/16 00:20 98.0 84 18 110/69 93 Room Air 12/20/16 21:00 16 12/20/16 21:00 Room Air 12/20/16 20:40 97.2 79 20 110/69 94 Room Air 12/20/16 18:59 92 12/20/16 18:16 94 Room Air 12/20/16 16:20 97.0 82 20 98/58 90 Room Air 12/20/16 11:38 97.1 85 16 96/55 96 Room Air 12/20/16 10:00 105 11 131/74 93 Room Air I & O 12/21/16 07:00 Intake Total 1380 ml Output Total 1650 ml Balance -270 ml General Appearance: No Apparent Distress, Chronically ill HEENT: PERRL/EOMI Respiratory: Normal Breath Sounds, No Accessory Muscle Use, No Respiratory Distress, Other (Chest is clear anteriorly) Cardiovascular: Regular Rate, Rhythm, No Gallop, No JVD, No Murmur Capillary Refill: Less Than 3 Seconds Gastrointestinal: soft, tenderness (mild with palpation mostly), other ( midline incision is c/d/i. Ostomy is pink and functioning, still edematous) Extremity: Pedal Edema Neurologic/Psychiatric: Alert, Oriented x3 Skin: Warm/Dry, Pallor (very mild) Lymphatic: No Adenopathy Results Lab Laboratory Tests 12/20/16 04:45 12/21/16 04:00 Assessment/Plan Assessment/Plan Cdiff colitis s/p Extended Left Hemicolectomy with end Colostomy /Pam's Procedure -rico Duong Severe Sepsis - improving Volume overload secondary to IVF with pulmonary edema -Decrease IVF KVO Anemia -monitor LE Bilateral cellulitis -monitor and wound care following Clinical Quality Measures DVT/VTE Risk/Contraindication: Risk Factor Score Per Nursin RFS Level Per Nursing on Admit: 4+=Very High CHAYITO DE LA ROSA DO Dec 21, 2016 09:19
--- NOTE | 2016-12-21 10:38 | Cardiology Progress Note ---
Subjective Subjective/Events-last exam patient is laying down in bed, still having some abdominal discomfort, mild dyspnea, no chest pain. No palpitation. Review of Systems General: No Chills, No Night Sweats, No Fatigue, No Malaise, No Appetite, No Other HEENT: No Head Aches, No Visual Changes, No Eye Pain, No Ear Pain, No Dysphasia , No Sinus Congestion, No Post Nasal Drip, No Sore Throat, No Other Pulmonary: No Dyspnea, No Cough, No Pleuritic Chest Pain, No Other Cardiovascular: Edema, No: Chest Pain, Lt Headedness, Orthopnea, Other, Palpitations, Paroxysmal Noc. Dyspnea Objective-Cardiology Exam Last Set of Vital Signs Vital Signs 12/16/16 12/20/16 12/21/16 12/21/16 11:00 05:55 07:36 07:58 Temp 96.7 Pulse 66 Resp 20 B/P (MAP) 122/67 Pulse Ox 92 O2 Delivery Room Air O2 Flow Rate 2.00 FiO2 21 Capillary Refill : Less Than 3 Seconds I&O Intake and Output 12/21/16 00:00 Intake Total 2680 ml Output Total 1575 ml Balance 1105 ml Intake Oral 1280 ml IV Total 1400 ml Output Urine Total 200 ml Stool Total 1375 ml # Voids 5 # Urine Diapers 1 General: Alert, Cooperative HEENT: Atraumatic Neck: Supple, No JVD, No Thyromegaly Lungs: Normal Air Movement, Other (bilateral rhonchi) Heart: Regular Rate, Normal S1, Normal S2, No Murmurs Abdomen: Soft Extremities: No Clubbing, No Cyanosis, No Edema, Normal Pulses, No Tenderness/ Swelling Skin: Other (right anterior calf wound --- 2.7 x 1.8 x 0.1 cm, 100% eschar, no drainage.) Neuro: Normal Speech, Normal Tone Psych/Mental Status: Mood NL Results Lab Laboratory Tests 12/21/16 04:00 A/P-Cardiology Admission Diagnosis Sepsis C. difficile colitis peripheral arterial disease COPD Assessment/Plan C. difficile colitis, status post extended left hemicolectomy with Pam procedure, recovering slowly, continue to monitor at this time. Continue on current treatment. Sepsis, better, continue to monitor closely. Short of breath, improving, responded to Lasix. Monitor closely. Hypokalemia, hypomagnesemia, replaced, continue to monitor Peripheral edema, started back on Lasix. Continue to monitor Congestive heart failure, nonischemic cardiomyopathy, acute on chronic left ventricular systolic dysfunction with most recent ejection fraction improved to 50 percent. Maintained on beta gurpreet and Entresto, has been on hold, continue to monitor Status post anoxic encephalopathy and pneumonia and sepsis early in October, improved with aggressive therapy. Back to his baseline. Continue to monitor. Status post acute renal failure. Improved, monitor renal function closely Peripheral vascular disease with history of nonhealing wounds bilaterally. Peripheral angiogram done 12/04/16 revealed moderate atherosclerotic disease on the left lower extremity, the anterior tibial artery is severely diseased on the left lower extremity but the ulcer on the left lower extremity has healed. Medical therapy is recommended. Moderate disease of the right lower extremity with good flow, with three-vessel flow down to the foot. Continue medical management at this time and continue to monitor. Small infrarenal abdominal aortic aneurysm noted during peripheral angiogram. Continue to monitor Hypertension, restart Lasix and monitor blood pressure. Hyperlipidemia, continue to hold statin. Hyperthyroidism, history of hypothyroidism and Levothroid, managed by primary care physician History of pulmonary hypertension, continue to monitor History of rheumatoid arthritis. COPD, managed and followed by primary care physician Tobaccoism, patient has stopped smoking after the last admission. Encouraged to continue with smoking cessation History of chronic narcotic use, urine drug screen is positive for opioids Clinical Quality Measures DVT/VTE Risk/Contraindication: Risk Factor Score Per Nursin RFS Level Per Nursing on Admit: 4+=Very High TORY HALL MD Dec 21, 2016 10:38
[2016-12-21] MEDS ORDERED: MAGNESIUM 1 GM/100 ML IVPB 100 ML IV SCH (10:45)
[2016-12-21] MEDS ORDERED: POTASSIUM CL 10MEQ/50ML IVPB 50 ML IV SCH (10:45)
[2016-12-21] MEDS ORDERED: FUROSEMIDE 40 MG/4 ML INJ (LASIX) IVP SCH (10:45)
[2016-12-21] MEDS ORDERED: ENOX40DI8 SC (11:19)
[2016-12-21] MEDS ORDERED: ONDA4VIA28 IV (11:19)
[2016-12-21] MEDS ORDERED: MORP4CAR IVP (11:19)
[2016-12-21] MEDS ORDERED: METR500T21 PO (11:19)
--- NOTE | 2016-12-21 11:21 | Discharge Summary-Hospitalist ---
Diagnosis/Chief Complaint Date of Admission Dec 14, 2016 at 16:03 Date of Discharge Discharge Date: Dec 21, 2016 Admission Diagnosis Assessment: Severe sepsis due to pneumonia 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 difficile colitis Overall debility requiring halfway placement just discharged Discharge Diagnosis Assessment: Pseudomembranous colitis s/p colon resection w/diverting colostomy POD # 5 s/p VDRF following surgery now extubated Severe sepsis due to pneumonia Severe congestive heart failure with very depressed systolic function of 20 percent uses LifeVest COPD Recent pneumonia Recent C. difficile colitis Overall debility requiring halfway placement just discharged Chart Review: No fever, Vitals stable, CXR increasing vascular congestion WBC 21.9, Hgb 9.6, K+ 3.1, UA negative life care planner: Pt is still extubated. Pt will receive Lasix today. Pt looks good. Patient Interview: Pt was moved from bed to chair with help of two staff. Physical exam was stable. Scribed by Tereso Guerrero under the direct supervision of Dr. Brown. No fever, vital signs stable, pleasant, improved, sitting in chair Regular rate and rhythm, clear bilaterally diminished in the bases 2+ pitting edema Laboratory Tests 12/19/16 04:22 Assessment: Pseudomembranous colitis s/p colon resection w/diverting colostomy POD # 4 s/p VDRF following surgery now extubated Severe sepsis due to pneumonia Severe congestive heart failure with very depressed systolic function of 20 percent uses LifeVest COPD Recent pneumonia Recent C. difficile colitis Overall debility requiring halfway placement just discharged Plan: Very poor prognosis remains Lasix Antibiotics to continue Poor prognosis IRU? Reason Hospital Visit/Course CC: Fever with lethargy HPI: This is a 71ypWM pt of Dr. Grajeda that is known to me from prior admissions that just completed NH 20 days of therapy when he presented to ER with fever and weakness. Pt was found to have severe sepsis. Pt was given appropriate IVF per protocol ABX. Pt was placed on triple antibiotic therapy of : Zosyn, Vancomycin, and Levaquin. Pt has EF of 20%. Cardiology and Pulmonology are consulted. Pt was placed on pressor therapy after center line placed. 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 life care planner: Pt is going to surgery today. Pt had C. diff w/pseudomembranous colitis. Pt is going to have colon resection. CT scan revealed pseudomembranous colitis. Pt needs to speak with Cardiology and Pulmonology. Palliative Care Review: Pt has pseudomembranous colitis and is scheduled for surgery. Pt is in bad shape. Patient Interview: Pt was informed that he has pneumonia and colitis. Pt states he is in pain currently. Pt states his stomach is in pain. Pt states he was fitted for a life vest. Physical exam was stable. Pt states he is breathing well currently. Pt states he spoke with Dr. Jaime. Pt states he will do what he needs to do to feel better. Scribed by Tereso Guerrero under the direct supervision of Dr. Brown. Note from 12/21/2016 Chart Review: No fever, Vitals stable, WBC down to 15.6, Hgb 8.4, Received 1 until of blood since admission, K+ 3.1, Creat 0.68, CXR vascular congestion on Zosyn and oral Vanc and Flagyl SW Review: Pt will go to rehab today. Patient Interview: Pt states he is not doing too bad currently. Pt was told he will go down to rehab today. Pt states he is about to eat his food. Pt states he is in pain currently. Physical exam was stable. Scribed by Tereso Guerrero under the direct supervision of Dr. Brown. AFVSS, Pleasant, O x 3, improved RRR, CTAB no rales noted today 1+ edema Hospital course: Patient had a lengthy hospital course that included admission for volume overload and possible pneumonia but upon further assessment CT scan was reviewed and Dr. Nesbitt and Dr. 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 Overall he improved enough even after being so debilitated to meet criteria for inpatient rehabilitation and he had completed 7 days of Zosyn in addition maintain on by mouth vancomycin and Flagyl and labs remained stable overall much improved and was discharged to inpatient rehabilitation for further recovery. Discharge Summary Discharge Physical Examination Allergies: Coded Allergies: Sulfa (Sulfonamide Antibiotics) (Unverified Allergy, Unknown, 11/07/16) Vitals & I&Os Vital Signs Date Time Temp Pulse Resp B/P (MAP) Pulse Ox O2 Delivery O2 Flow Rate FiO2 12/21/16 07:58 92 12/21/16 07:36 96.7 66 20 122/67 Room Air 12/20/16 05:55 2.00 12/16/16 11:00 21 Hospital Course Labs (last 24 hrs) Laboratory Tests 12/21/16 04:00: White Blood Count 15.6H, Red Blood Count 3.14L, Hemoglobin 8.4L, Hematocrit 26L , Mean Corpuscular Volume 83, Mean Corpuscular Hemoglobin 27, Mean Corpuscular Hemoglobin Concent 32, Red Cell Distribution Width 18.4H, Platelet Count 384, Mean Platelet Volume 9.3, Neutrophils (%) (Auto) 70, Lymphocytes (%) (Auto) 18, Monocytes (%) (Auto) 10, Eosinophils (%) (Auto) 2, Basophils (%) (Auto) 1, Neutrophils # (Auto) 10.9H, Lymphocytes # (Auto) 2.8, Monocytes # (Auto) 1.6H, Eosinophils # (Auto) 0.2, Basophils # (Auto) 0.1, Sodium Level 139, Potassium Level 3.1L, Chloride Level 110H, Carbon Dioxide Level 21, Anion Gap 8, Blood Urea Nitrogen 4L, Creatinine 0.68, Estimat Glomerular Filtration Rate > 60, BUN/ Creatinine Ratio 6, Glucose Level 79, Calcium Level 6.6L, Phosphorus Level 1.6L , Magnesium Level 1.4L Microbiology 12/14/16 Blood Culture - Final, Complete No growth 12/15/16 C. difficile GDH Antigen & Toxins - Final, Complete 12/14/16 Urine Culture - Final, Complete Pending Labs Discharge Home Medications: Active Scripts Active [Vancomycin] 250 Mg PO Q6H 8 Days Metronidazole 500 Mg Tablet 500 Mg PO TID 14 Days Ondansetron HCl 4 mg/2 ml Vial (Ondansetron HCl/Pf) 4 Mg/2 Ml Vial 4 Mg IV Q4H PRN 30 Days Morphine Sulfate 4 Mg/1 Ml Cartridge 2-4 Mg IVP Q2H PRN 30 Days Enoxaparin Sodium 40 Mg/0.4 Ml Syringe 40 Mg SC 1400 30 Days Reported Morphine Sulfate ER (Morphine Sulfate) 30 Mg Tablet.er 30 Mg PO Q8H PRN Entresto 24 mg-26 mg Tablet (Sacubitril/Valsartan) 1 Each Tablet 1 Tab PO BID Carvedilol 3.125 Mg Tablet 3.125 Mg PO BID Potassium Chloride 10 Meq Tab.er.prt 10 Meq PO DAILY Levothyroxine Sodium 175 Mcg Tablet 175 Mcg PO DAILY@0600 Furosemide 20 Mg Tablet 20 Mg PO DAILY Calcium 600 + Vit D 200 Tablet (Calcium Carbonate/Vitamin D3) 1 Each Tablet 1 Tab PO DAILY Iprat-Albut 0.5-3(2.5) mg/3 ml (Ipratropium/Albuterol Sulfate) 3 Ml Ampul.neb 3 Ml IH Q6H PRN Hydrocodon-Acetaminophn 10-325 (Hydrocodone/Acetaminophen) 1 Each Tablet 1 Tab PO Q6H PRN Lipitor (Atorvastatin Calcium) 40 Mg Tablet 40 Mg PO HS Aspirin Ec 81 Mg (Aspirin) 81 Mg Tabec 81 Mg PO DAILY Protonix Tab (Pantoprazole Sod) 40 Mg Tab 40 Mg PO DAILY Instructions to patient/family Please see electonic discharge instructions given to patient. Clinical Quality Measures DVT/VTE Risk/Contraindication: Risk Factor Score Per Nursin RFS Level Per Nursing on Admit: 4+=Very High OCTAVIO BROWN DO Dec 21, 2016 11:21
[2016-12-21] MEDS ORDERED: VANCOMYCIN PO ×2 (11:22→13:15)
[2016-12-21 12:31] VITALS: BP 158/88
--- NOTE | 2016-12-21 12:37 | Progress Note ---
Subjective Subjective/Events-last exam Pt seen and examined, moved down to ARU. Pt does not complain of pain, but thinks he is not hungry and/or gets full fast. Review of Systems General: No Chills, No Night Sweats Pulmonary: No Cough Cardiovascular: No: Chest Pain Gastrointestinal: No: Nausea, Vomiting Objective Exam Vital Signs Date Time Temp Pulse Resp B/P (MAP) Pulse Ox O2 Delivery O2 Flow Rate FiO2 12/21/16 07:58 92 12/21/16 07:36 96.7 66 20 122/67 92 Room Air 12/21/16 04:20 98.9 87 18 102/60 92 Room Air 12/21/16 00:20 98.0 84 18 110/69 93 Room Air 12/20/16 21:00 16 12/20/16 21:00 Room Air 12/20/16 20:40 97.2 79 20 110/69 94 Room Air 12/20/16 18:59 92 12/20/16 18:16 94 Room Air 12/20/16 16:20 97.0 82 20 98/58 90 Room Air I & O 12/21/16 07:00 Intake Total 1380 ml Output Total 1650 ml Balance -270 ml Capillary Refill : Less Than 3 Seconds General Appearance: No Apparent Distress, Chronically ill HEENT: PERRL/EOMI Respiratory: Normal Breath Sounds, No Accessory Muscle Use, No Respiratory Distress, Other (Chest is clear anteriorly) Cardiovascular: Regular Rate, Rhythm, No JVD, No Murmur Gastrointestinal: soft, tenderness (mild with palpation mostly), other ( midline incision is c/d/i. Ostomy is pink and functioning, still edematous) Extremity: Pedal Edema Neurologic/Psychiatric: Alert, Oriented x3 Skin: Warm/Dry, Pallor (very mild) Lymphatic: No Adenopathy Results Lab Laboratory Tests 12/21/16 04:00: White Blood Count 15.6H, Red Blood Count 3.14L, Hemoglobin 8.4L, Hematocrit 26L , Mean Corpuscular Volume 83, Mean Corpuscular Hemoglobin 27, Mean Corpuscular Hemoglobin Concent 32, Red Cell Distribution Width 18.4H, Platelet Count 384, Mean Platelet Volume 9.3, Neutrophils (%) (Auto) 70, Lymphocytes (%) (Auto) 18, Monocytes (%) (Auto) 10, Eosinophils (%) (Auto) 2, Basophils (%) (Auto) 1, Neutrophils # (Auto) 10.9H, Lymphocytes # (Auto) 2.8, Monocytes # (Auto) 1.6H, Eosinophils # (Auto) 0.2, Basophils # (Auto) 0.1, Sodium Level 139, Potassium Level 3.1L, Chloride Level 110H, Carbon Dioxide Level 21, Anion Gap 8, Blood Urea Nitrogen 4L, Creatinine 0.68, Estimat Glomerular Filtration Rate > 60, BUN/ Creatinine Ratio 6, Glucose Level 79, Calcium Level 6.6L, Phosphorus Level 1.6L , Magnesium Level 1.4L Microbiology 12/14/16 Blood Culture - Final, Complete No growth 12/15/16 C. 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 -encourage IS use, ambulation and will increase diet. leukocytosis. WBC trending down cont Oral Flagyl and Vanco. -ok to d/c zosyn Severe sepsis -resolved Severe congestive heart failure -stable Hypokalemia, hypomagnesemia, Continue to replace and monitor. Pt now transferred down to rehab unit, will follow along as needed. Clinical Quality Measures DVT/VTE Risk/Contraindication: Risk Factor Score Per Nursin RFS Level Per Nursing on Admit: 4+=Very High NATALIYA BOSWELL DO Dec 21, 2016 12:37
== END 2016-12-21 12:09 | DRG 853 ==
LOC: EDUNIT# 14:21 → ER 14:24 → ICU 16:03 → 4TH 12-20 10:14
PROVIDERS: ADMIT Internal Medicine; ATTEND Internal Medicine
PROC: 0DBL0ZZ Excision of Transverse Colon, Open Approach (ICD-10-PCS; 2016-12-15)
PROC: 0D1L074 Bypass Transverse Colon to Cutaneous with Autologous Tissue Substitute, Open Approach (ICD-10-PCS; 2016-12-15)
PROC: 0DTG0ZZ Resection of Left Large Intestine, Open Approach (ICD-10-PCS; principal; 2016-12-15 16:15)
DX: A41.9 Sepsis, unspecified organism (principal); R65.21 Severe sepsis with septic shock; A04.7 Enterocolitis due to Clostridium difficile; K63.1 Perforation of intestine (nontraumatic); J44.0 Chronic obstructive pulmonary disease with (acute) lower respiratory infection; J18.9 Pneumonia, unspecified organism; I11.0 Hypertensive heart disease with heart failure; I50.23 Acute on chronic systolic (congestive) heart failure; I42.9 Cardiomyopathy, unspecified; L03.115 Cellulitis of right lower limb; L03.116 Cellulitis of left lower limb; I27.2 Other secondary pulmonary hypertension; I25.10 Atherosclerotic heart disease of native coronary artery without angina pectoris; I70.203 Unspecified atherosclerosis of native arteries of extremities, bilateral legs; M06.9 Rheumatoid arthritis, unspecified; I71.4 Abdominal aortic aneurysm, without rupture; F41.9 Anxiety disorder, unspecified; K21.9 Gastro-esophageal reflux disease without esophagitis; E78.00 Pure hypercholesterolemia, unspecified; E03.9 Hypothyroidism, unspecified; M19.91 Primary osteoarthritis, unspecified site; M81.0 Age-related osteoporosis without current pathological fracture; D64.9 Anemia, unspecified; Z87.891 Personal history of nicotine dependence; Z79.891 Long term (current) use of opiate analgesic; L97.211 Non-pressure chronic ulcer of right calf limited to breakdown of skin
CPT/HCPCS: 36415; 36556; 51702; 71010; 74177; 80048; 80053; 80202; 81000; 82040; 82330; 82805; 82962; 83605; 83735; 83880; 84100; 84132; 84484; 85007; 85025; 85027; 85610; 85730; 86850; 86900; 86901; 86920; 87040; 87088; 87324; 87449; 88307; 93005; 94002; 94003; 94640; 94760; 94799; 96361; 96365; 96367

== ENCOUNTER 2016-12-21 11:23 | Inpatient (IN) | payer MEDICARE ==
[~2016-12-21] VITALS: Ht 172.7 cm; Wt 66.2 kg
[~2016-12-21 11:23] MED LIST changes: +CALC-6 PO; +ENOX40DI8 SC; +FURO20TA4 PO; +LEVO175T5 PO; +MORP-34 PO; +MORP4CAR IVP; +ONDA4VIA28 IV; +POTA10TA36 PO; +VANCOMYCIN PO
[2016-12-21 12:30] VITALS: BP 109/74
[2016-12-21] MEDS ORDERED: NS IV 1000 ML 1,000 ML IV SCH (12:30)
[2016-12-21] MEDS ORDERED: RT-ALBUTEROL/IPRATROPIUM 3 ML (DUONEB) VIAL INH PRN ×2 (12:30→15:00)
--- NOTE | 2016-12-21 12:44 | Physical Therapy Evaluation ---
PT Evaluation-General Medical Diagnosis Admission Date Dec 21, 2016 at 12:10 Medical Diagnosis: colitis; post colostomy Onset Date: Dec 14, 2016 Therapy Diagnosis Therapy Diagnosis: weakness; abn gait Height/Weight Height (Feet): 5 Height (Inches): 9.00 Weight (Pounds): 192 Weight (Ounces): 0.9 Precautions Precautions/Isolations: Contact/Enteric Isolation (C-Diff) Referral Physician: Kamran Reason for Referral: Evaluation/Treatment Medical History Pertinent Medical History: Arthritis, CAD, COPD, GERD, HTN, Hypothroidism, PVD , Rheumatoid Arthritis Current History Patient had a lengthy hospital course that included admission for volume overload and possible pneumonia but upon further assessment CT scan was reviewed and Dr. Nesbitt and Dr. 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 Overall he improved enough even after being so debilitated to meet criteria for inpatient rehabilitation and he had completed 7 days of Zosyn in addition maintain on by mouth vancomycin and Flagyl and labs remained stable overall much improved and was discharged to inpatient rehabilitation for further recovery. Reviewed History: Yes Social History Home: Single Level Current Living Status: Spouse Entry Into Home: Stairs With Railing PT Steps Into Home: 3 Prior/Core FIM Prior Level of Function Functional [place] Measure 0=Not Assessed/NA 4=Minimal Assistance 1=Total Assistance 5=Supervision or Setup 2=Maximal Assistance 6=Modified [place] 3=Moderate Assistance 7=Complete [place] Pt has had an extended medical history recently with multiple hospital admissions with short stay at the [facility] as well. Prior to this, he was using a cane at home and caring for himself, indep in the community and able to drive. This was all in the last 3-4 months. PT Evaluation-Current Subjective Pt agreeable to participate with PT evaluation and treatment. He does report being tired. Pt/Family Goals This patient reports his goal is to discharge home with his when able. Objective Patient Orientation: Person, Place, Time, Situation Problem Solving: Good Attachments: Oxygen, IV ROM/Strength ROM Lower Extremities WFL but right Knee limited with extension and flexion. Strenght Lower Extremities LE strength is grossly 3/5 throughout with limited functional act toleranc.e Integumentary/Posture Integumentary refer to nursing notes Pitting edema noted throughout Bowel Incontinence: Yes (leaks) Bladder Incontinence: Yes Posture thoracic kyphosis with head down. Stands with right knee in genu valgum and slight flexion which also creates pronation of the foot/ankle. Neuromuscular (Tone, Coordination, Reflexes) intact and functional Sensory Vision: Functional Hearing: Functional Hand Dominance: Right Sensation Right Lower Extremit: Intact Sensation Left Lower Extremity: Intact Transfers Functional [place] Measure 0=Not Assessed/NA 4=Minimal Assistance 1=Total Assistance 5=Supervision or Setup 2=Maximal Assistance 6=Modified [place] 3=Moderate Assistance 7=Complete IndependenceIRFPAI Quality Coding Scale 6 Independent with activity with or without an assistive device 5 Patient requires set up or clean up by helper. Patient completes activity by themselves 4 Supervision or touching assist (CGA). [place] provide cues , steadying assist 3 The helper provides less than half the effort to complete the activity 2 The helper provides more than half the effort to complete the activity 1 Dependent. The helper does all the effort to complete an activity 7 Patient refused to complete or attempt activity 9 The patient did not perform the activity before the current illness or injury 88 Not attempted due to Medical conditions or safety concerns Transfers (B, C, W/C) (FIM): 1 Scootin (asssit of 2 to scoot up in bed) Rollin Roll Left to Right (QC): 2 Supine to/from Sit: 2 Sit to/from Stand: 3 (mod assist to come to a stand) bed t/f WC(FIM only if WC use): 3 (assist with balance and support at gait belt ; assist with FWW) Sit to Lying (QC): 2 (max assist of 1) Lying to Sitting/Side of Bed(Q: 2 Sit to Stand (QC): 3 Chair/Ifo-et-Plkpr Xfer(QC): 3 Car Transfer (QC): 88 (unable to attempt at this time) Pt very edematous throughout and this makes movement and lifting legs very difficult at this time. Gait Does the Patient Walk?: Yes Mode of Locomotion: Both Anticipated Mode of Locomotion: Walk Gait (FIM): 2 (steps only ) Distance (FIM): 1=up to 49 ft Walk 10 feet (QC): 88 Walk 50 ft with 2 Turns(QC): 88 Walk 150 ft (QC): 88 Walking 10ft/uneven surface-QC: 88 Gait Assistive Device: FWW Comments/Gait Description Pt required mod assist to steady him when he is standing and taking steps. Unable to take more than 3-4 steps at at time. Wheelchair Training Does the Pt Use a Wheelchair?: Yes Wheelchair (FIM): 1 Wheelchair Distance (FIM): 0=does not occure Wheel 50 ft with 2 turns (QC): 1 Wheel 150 ft (QC): 1 Type of Wheelchair: Manual Pt was dependent with wheelchair mobility this visit but feel that wheelchair mobility may be an option for mod indep mobility at home at dc Stairs Stairs (FIM): 0 (unable to attempt) 1 Step (curb) (QC): 88 4 Steps (QC): 88 12 Steps (QC): 88 If not tested on admit;explain Unable to attempt due to extreme weakness Balance Sitting Static: Good Sitting Dynamic: Fair Standing Dynamic: Fair Picking up an Object (QC): 88 Treatment Functional SPT performed x 3 reps. Worked on static and dynamic standing balance to promote functional activity tolerance and LE strength. Toileted with FWW and mod assist for transfer and dep for shailesh care and management of urinal. Assessment/Needs Pt presents with significant decline in functional mobility and ability to transfer and mobilize with decreased strength, balance, functional activity tolerance. He has had a lengthy hospital course with readmissions noted. Pt would benefit from aggressive skilled PT intervention to address his deficits to strive to improve his ability to return home and care for himself. Co morbidities: COPD, CHF, RA, right Knee arthritis with structural deformity; Exam: LE weakness, decreased functional balance, decreased ability to transfer ; unable to ambulate; decreased functional activity tolerance. Unstable presentation due to multiple hospitalizations, edema recent colostomy. High Complexity evaluation. Rehab Potential: Guarded Post Rehab Potential-Barriers: Lenghty medical history. PT Short Term Goals Short Term Goals Time Frame: Jan 04, 2017 Transfers (B,C,W/C) (FIM): 4 Gait (FIM): 2 Distance (FIM): 2=683-72 ft Gait Assistive Device: FWW Stairs (FIM): 2 # of Steps: 4 PT Half-Way Goals Performance Improvement Consultant Goals PT Half-Way Goals Time Frame: January 18, 2017 Transfers (B,C,W/C) (FIM): 6 Sit to Lying (QC): 6 Lying-Sitting on Side/Bed(QC): 6 Sit to Stand (QC): 6 Roll Left to Right (QC): 6 Chair/Mtd-cs-Vaqcy Xfer(QC): 6 Car Transfer (QC): 5 Does the Patient Walk: Yes Gait (FIM): 5 Gait distance (FIM): 4=972-09 ft Walk 10 feet (QC): 5 Walk 10ft-Uneven Surface(QC): 5 Walk 50ft with 2 Turns (QC): 5 Walk 150 ft (QC): 88 Gait Assistive Device: FWW Does the Pt use WC or Scooter?: Yes Wheelchair (FIM): 6 Wheelchair distance (FIM): 3=150 ft Wheel 50 feet with 2 turns (QC: 6 Stairs (FIM): 2 # of Steps: 4 1 Step (curb) (QC): 5 4 Steps (QC): 5 12 Steps (QC): 88 Picking up an Object (QC): 88 All LTG;s set to allow pt to ambulate household distance as well as use a wheelchair for funcitonal mobility; pt to be mod indep with transfers and safe with balance so he can care for himself at [facility].e PT Plan Problem List Problem List: Activity Tolerance, Functional Strength, Safety, Balance, Gait, Transfer, Bed Mobility Treatment/Plan Treatment Plan: Continue Plan of Care Treatment Plan: Bed Mobility, Education, Functional Activity Juli, Functional Strength, Group Therapy, Gait, Safety, Therapeutic Exercise, Transfers Treatment Duration: January 18, 2017 # of days/week 5-6 Visits Per Week: 10-15 Minutes/Day (M-F): 60-90 Minutes/Day (Sat/Ferrara): prn Pt/Family Agrees w/Plan: Yes Safety Risks/Education Patient Education: Transfer Techniques, Safety Issues Teaching Recipient: Patient Teaching Methods: Demonstration, Discussion Response to Teaching: Reinforcement Needed Discharge Recommendations Therapy D/C Recommendations: Physical Therapy Home Care Time/GCodes Time In: 1130 Time Out: 1230 Total Billed Treatment Time: 60 Total Billed Treatment visit [facility] 15 FA 45 SOMMER PARRY PT Dec 21, 2016 12:44
[2016-12-21] MEDS ORDERED: morphine INJ 4 MG/ML 1 ML (VIAL/SYRINGE) IVP PRN (13:00)
[2016-12-21] MEDS ORDERED: morphine ER 30 MG (MS CONTIN) TAB PO PRN (13:00)
[2016-12-21] MEDS ORDERED: MAGNESIUM 1 GM/100 ML IVPB 100 ML IV NR (13:00)
[2016-12-21] MEDS ORDERED: VANCOMYCIN PO (13:15)
[2016-12-21] MEDS ORDERED: PIPERACILLIN SODIUM/TAZOBACTAM 4.5 GM in NS (IVPB) 100 ML IV SCH (14:00)
[2016-12-21] MEDS ORDERED: VANCOMYCIN ORAL SUSPENSION 60 ML BOTTLE PO SCH (14:00)
[2016-12-21] MEDS: RT-ALBUTEROL/IPRATROPIUM 3 ML (DUONEB) VIAL INH SCH ×2 (14:10→19:49)
--- NOTE | 2016-12-21 14:44 | Occupational Ther Daily Note ---
OT Current Status-Daily Note Subjective Pt in bed, agrees to treatment. Pt reports 8/10 abdominal pain at rest that increases with movement. Mental Status/Objective Functional [place] Measure 0=Not Assessed/NA 4=Minimal Assistance 1=Total Assistance 5=Supervision or Setup 2=Maximal Assistance 6=Modified [place] 3=Moderate Assistance 7=Complete [place] ADL-Treatment Pt required assist to use urinal while in bed. Pt supine to sit with maximal assistance. Pt sat EOB while completing ADL tasks. Pt washed face with set up and combed hair with minimal assistance and increased time. Pt requires occasional cues for sitting balance and posture during UE activity. Total assist required to don bilateral socks. Pt performed sit to stand x2 trials with maximal assistance. Pt able to stand for 2-3 minutes. Pt fatigues quickly with activity and requires extended rest breaks. Pt able to sidestep to HOB with cues for sequencing and safety. Requires assist to manage FWW. Sit to supine with maximal assistance. Pt moves slowly and requires increased time for tasks. Pt resting in bed with needs met after session. Co-treat with PT. OT focusing on ADL completion, UE placement/management, safety , and sequencing for sidestepping. PT focusing on sitting balance at EOB during ADLs, posture, foot placement, safety and balance during standing and mobility. Functional [place] Measure 0=Not Assessed/NA 4=Minimal Assistance 1=Total Assistance 5=Supervision or Setup 2=Maximal Assistance 6=Modified [place] 3=Moderate Assistance 7=Complete IndependenceIRFPAI Quality Coding Scale 6 Independent with activity with or without an assistive device 5 Patient requires set up or clean up by helper. Patient completes activity by themselves 4 Supervision or touching assist (CGA). [place] provide cues , steadying assist 3 The helper provides less than half the effort to complete the activity 2 The helper provides more than half the effort to complete the activity 1 Dependent. The helper does all the effort to complete an activity 7 Patient refused to complete or attempt activity 9 The patient did not perform the activity before the current illness or injury 88 Not attempted due to Medical conditions or safety concerns On/Off Footwear (QC): 1 OT Short Term Goals Short Term Goals 1=Demonstrate adherence to instructed precautions during ADL tasks. 2=Patient will verbalize/demonstrate understanding of assistive devices/ modifications for ADL. 3=Patient will improve strength/tolerance for activity to enable patient to perform ADL's. OT Press Machine Feeder Goals Press Machine Feeder Goals 1=Demonstrate adherence to instructed precautions during ADL tasks. 2=Patient will verbalize/demonstrate understanding of assistive devices/ modifications for ADL. 3=Patient will improve strength/tolerance for activity to enable patient to perform ADL's. OT Education/Plan Discharge Recommendations Plan/Recommendations: Continue POC Treatment Plan/Plan of Care Patient would benefit from OT for education, treatment and training to promote independence in ADL's, mobility, safety and/or upper extremity function for ADL' s. Time/GCodes Start Time: 13:05 Stop Time: 13:50 Total Time Billed (hr/min): 45 Billed Treatment Time 1 visit, ADL(15minutes), FAx2(30minutes) Co-treat with PT MELISSA AMBROSIO OT Dec 21, 2016 14:44
--- NOTE | 2016-12-21 14:57 | ST Cognitive Linguistic Eval ---
Speech Evaluation-General Medical Diagnosis colitis; post colostomy Onset Date: Dec 14, 2016 Therapy Diagnosis Therapy Diagnosis: Cognitive Linguistic Skills Grossly WNL Precautions Precautions/Isolations: Contact/Enteric Isolation (C-Diff) Referral Referring Physician: Dr. Daneil Andrew Reason for Referral: Evaluation/Treatment Cognitive Evaluation Medical History Pertinent Medical History: Arthritis, CAD, COPD, GERD, HTN, Hypothroidism, PVD , Rheumatoid Arthritis Reviewed History: Yes Social History Current Living Status: Spouse Speech PLF-Current Status Prior Level of Function The patient (and , who was present) denied cognitive, speech, or language deficits prior to admission. Subjective The patient was recently admitted to [facility] following a colon procedure. The patient greeted the clinician appropriately and agreed to participate in the cognitive evaluation. Language Eval: Auditory Comprehends Simple Yes/No Ques: Functional Indent/Objects Multiple Bell: Functional Ident/Pics in Multiple Bell: Functional Follows 1-Step Commands: Functional Follows Complex Directions: Mild Follows General Conversations: Functional Language Eval: Verbal Language Completes Spontaneous Greeting: Functional Produces Auto, Serial Info: Functional Imitates Simple Words/Phrases: Functional Word Finding: Functional Requests Basic Needs: Functional States Basic Personal Info: Functional Expresses Complex Ideas: Mild Cognitive Patient Orientation The patient was oriented to month, day of week, year, and location. Objective Cognitive Domain Attention: Mild Memory: Mild Problem Solving: Mild Objective Impression The patient demonstrated cognitive linguistic skills grossly within normal limits and functional for completion of ADL's. Communication/Social Cognition Comprehension: 5 Expression: 5 Social Interaction: 5 Problem Solvin Memory: 5 Speech Patient Assess Expression of Ideas/Wants: Exhibits (3) Understanding [place] Content: Usually Understands (3) Brief Interview-Mental Status: Yes Repetition of Three Words: Three (3) Temporal Orientation: Year: Correct (3) Temporal Orientation: Month: Accurate within 5 days(2) Temporal Orientation: Day: Correct (1) Recall : Wear to say "Sock": Yes, no cue required (2) Recall : Color: Yes, no cue required (2) Recall : Bed: Yes,after cueing (1) Speech-Plan Treatment Plan Speech Therapy Treatment Plan: Discontinue ST Evaluation, only. Rehab Potential: Guarded Safety Risks/Education Teaching Recipient: Patient Teaching Methods: Discussion Response to Teaching: Verbalize Understanding Education Topics Provided: Plan of Care, Recommendations Time Speech Therapy Time In: 14:32 Speech Therapy Time Out: 14:47 Total Billed Time: 15 Billed Treatment Time 1, MIRI MARTIN Dec 21, 2016 14:57
[2016-12-21] MEDS: POTASSIUM CL 10MEQ/50ML IVPB 50 ML IV SCH ×5 (14:58→21:10)
--- NOTE | 2016-12-21 14:58 | Occupational Therapy Eval ---
OT Evaluation-General/PLF Medical Diagnosis Admission Date Dec 21, 2016 at 12:10 Medical Diagnosis: colitis; post colostomy Onset Date: Dec 14, 2016 Therapy Diagnosis Therapy Diagnosis: weakness, decreased ADL skills Height/Weight Height (Feet): 5 Height (Inches): 9.00 Weight (Pounds): 192 Weight (Ounces): 0.9 Precautions Precautions/Isolations: Contact/Enteric Isolation (C-Diff) Weight Bear Status Weight Bearing Restriction: Weight Bearing/Tolerated Referral Physician: Kamran Referral Reason: Activity Tolerance, Self Care, Evaluation/Treatment, Strengthening/ROM Medical History Pertinent Medical History: Arthritis, CAD, COPD, GERD, HTN, Hypothroidism, PVD , Rheumatoid Arthritis Additional Medical History CHF, pulmonary HTN, RA, anxiety,chronic leg wounds Current History Pt. has had multiple hospitalizations recently. Came to ER with fever and weakness. Was septic. Sustained colon resection. Has C-diff. Social History Home: Single Level Current Living Status: Spouse Entry Into Home: Stairs With Railing Steps Into Home: 3 ADL-Prior Level of Function ADL PLOF Comments Pt. states that previous to hospitalizations, he was independent at home with basic self care needs. States that he was driving. Lives with spouse. DME/Equipment: Tub/Shower DME/Equipment Comments Pt. states that the only equipment he has is canes. Occupation: Retired. States that he has held multiple jobs. Drive Self: Yes Leisure Interests: Pt. likes model cars and working with them. OT Current Status Subjective Pt. does not state a pain level. 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 Appearance Pt. in bed. Agrees to work with this OT. Mental Status/Objective Patient Orientation: Person, Place Attachments: Colostomy/Ileostomy, IV Current Glasses/Contacts: Yes Hearing Aids: No Dentures/Partials: Yes Hand Dominance: Right Upper Extremity ROM Pt. is able to flex bilateral shoulders to approximately 90 degrees. Can make bilateral fists but unable to fully extend fingers. States that this is from arthritis. Pt. states that he has a plate/fusion in left wrist due to arthritis. Upper Extremity Coordination impaired from arthritis Upper Extremity Strength 2+/5 bilateral UE throughout Edema: Pt. has significant swelling throughout bilateral UE. ADL-Treatment Functional [place] Measure 0=Not Assessed/NA 4=Minimal Assistance 1=Total Assistance 5=Supervision or Setup 2=Maximal Assistance 6=Modified [place] 3=Moderate Assistance 7=Complete IndependenceIRFPAI Quality Coding Scale 6 Independent with activity with or without an assistive device 5 Patient requires set up or clean up by helper. Patient completes activity by themselves 4 Supervision or touching assist (CGA). [place] provide cues , steadying assist 3 The helper provides less than half the effort to complete the activity 2 The helper provides more than half the effort to complete the activity 1 Dependent. The helper does all the effort to complete an activity 7 Patient refused to complete or attempt activity 9 The patient did not perform the activity before the current illness or injury 88 Not attempted due to Medical conditions or safety concerns Lower Body Dressing (FIM): 1 (Dependent to don socks.) Toileting (FIM): 1 (Pt. indicates that he has to urinate. Requires dependent assist to hold urinal up to penis, as he is swollen. OT emptied this.) Transfers (B, C, W/C) (FIM): 2 (Max assist supine-sit) Other Treatments OT initiated evaluation. Pt. is able to verbalize history, but requires increased time for this. Education OT Patient Education: Correct positioning, Progress toward Goal/Update tx plan , Purpose of tx/functional activities, Reviewed precautions, Rehab process, Safety issues, Transfer techniques Teaching Recipient: Patient Teaching Methods: Demonstration, Discussion Response to Teaching: Verbalize Understanding, Return Demonstration OT Short Term Goals Short Term Goals Time Frame: Jan 04, 2017 Eating(FIM): 5 Grooming(FIM): 5 Bathing(FIM): 4 Upper Body Dressing(FIM): 4 Lower Body Dressing(FIM): 4 Toileting(FIM): 4 Transfers (B,C,W/C) (FIM): 5 Toilet/Commode Transfer(FIM): 5 Shower Transfer(FIM): 5 Additional Short Term Goals: 1-Demonstrate ADL Tasks, 2-Verbalize Understanding , 3-ImproveStrength/Juli 1=Demonstrate adherence to instructed precautions during ADL tasks. 2=Patient will verbalize/demonstrate understanding of assistive devices/ modifications for ADL. 3=Patient will improve strength/tolerance for activity to enable patient to perform ADL's. OT Half-Way Goals Gravity Meter Observer Goals Time Frame: January 18, 2017 Eating (FIM): 6 Eating (QC): 6 Groomin Oral Hygiene (QC): 6 Bathing(FIM): 5 Shower/Bathe Self (QC): 5 Upper Body Dressing(FIM): 6 Upper Body Dressing (QC): 6 Lower Body Dressing(FIM): 6 Lower Body Dressing (QC): 6 On/Off Footwear (QC): 6 Toileting(FIM): 6 Toileting Hygiene (QC): 6 Transfers (B,C,W/C) (FIM): 6 Toilet/Commode Transfer(FIM): 6 Toilet/Commode Transfer (QC): 6 Shower Transfer(FIM): 5 Additional Goals: 1-Demonstrate ADL Tasks, 2-Verbalize Understanding, 3- ImproveStrength/Juli 1=Demonstrate adherence to instructed precautions during ADL tasks. 2=Patient will verbalize/demonstrate understanding of assistive devices/ modifications for ADL. 3=Patient will improve strength/tolerance for activity to enable patient to perform ADL's. OT Education/Plan Problem List/Assessment Assessment: Decreased Activ Tolerance, Decreased UE Strength, Dependent Transfers, Impaired Bed Mobility, Impaired Funct Balance, Impaired I ADL's, Impaired Self-Care Skills, Restricted Funct UE ROM Discharge Recommendations Plan/Recommendations: Continue POC Therapy D/C Recommendations: Home w/ Family Support, Occupational Therapy Home Care, Scheduled Assistance Equpiment Recommendations-D/C: Extended Bath Bench, Hip Kit Comment Pt. will need a walker and possibly a wheelchair. Barriers to Progress Edema, C-diff Target Placement Home with spouse Patient/Family Goals To return home with spouse. Treatment Plan/Plan of Care Treatment,Training & Education: Yes Patient would benefit from OT for education, treatment and training to promote independence in ADL's, mobility, safety and/or upper extremity function for ADL' s. Plan of Care: ADL Retraining, Caregiver Training, Functional Mobility, Group Exercise/Act as Ind, UE Funct Exercise/Act Treatment Duration: January 18, 2017 # of days/week 5-6 Visits Per Week: 5-6 Agreement: Yes Rehab Potential: Fair Time/GCodes Start Time: 12:30 Stop Time: 13:00 Total Time Billed (hr/min): 30 Billed Treatment Time 1, Lady irvin [id number] OT Dec 21, 2016 14:58
[2016-12-21] MEDS: ENOXAPARIN 40 MG/0.4 ML (LOVENOX) SYR SC SCH (15:00)
[2016-12-21] MEDS: metroNIDAZOLE 500 MG (FLAGYL) TAB PO SCH ×2 (15:01→21:14)
--- NOTE | 2016-12-21 15:07 | Physical Therapy Daily Note ---
PT Daily Note-Current Subjective Pt supine in bed upon arrival. PT co-treating with OT. Pt agrees to work on transfer training. Pain Numeric Pain Scale: 10-Worst Possible Pain Location: Incisional Location Body Site: Abdomen Pain Description: Ache Comment: Pt reports 8/10 to start tx but progressed to 10/10. Mental Status Patient Orientation: Person, Place, Time, Situation Transfers Functional [place] Measure 0=Not Assessed/NA 4=Minimal Assistance 1=Total Assistance 5=Supervision or Setup 2=Maximal Assistance 6=Modified [place] 3=Moderate Assistance 7=Complete IndependenceIRFPAI Quality Coding Scale 6 Independent with activity with or without an assistive device 5 Patient requires set up or clean up by helper. Patient completes activity by themselves 4 Supervision or touching assist (CGA). [place] provide cues , steadying assist 3 The helper provides less than half the effort to complete the activity 2 The helper provides more than half the effort to complete the activity 1 Dependent. The helper does all the effort to complete an activity 7 Patient refused to complete or attempt activity 9 The patient did not perform the activity before the current illness or injury 88 Not attempted due to Medical conditions or safety concerns Scootin Rollin Roll Left to Right (QC): 3 Supine to/from Sit: 2 Sit to/from Stand: 2 Sit to Lying (QC): 2 Sit to Stand (QC): 2 Weight Bearing Weight Bearing Restriction: Full Weight Bearing Location Restriction: LE Bilateral Exercises Seated Therapy Exercises: Sit to stand Seated Reps: 2 Treatments Pt uses urinal supine before transferring. Pt transfers supine to EOB at Max A for assistance with bringing LE to EOB. Pt completes ADL at EOB with OT. Pt transfers EOB to standing using FWW at Max A due to fatigue. Pt stands at FWW for 2-3 mins. before needing to rest at EOB. Pt completes 2 sit to stands ( each 2-3 mins. stands) before transferring back to supine in bed to rest. Pt is Max A for assisting LE back into bed. Pt is left with all needs met at end of tx. Assessment Current Status: Poor Progress Pt fatigues easy and requires lengthy rest breaks to recover before moving on to next task. Pt has significant swelling of both UE & LE. Pt's L hand weeps during tx. PT Plan Problem List Problem List: Activity Tolerance, Functional Strength, Safety, Balance, Gait, Transfer, Bed Mobility Treatment/Plan Treatment Plan: Continue Plan of Care Safety Risks/Education Patient Education: Transfer Techniques, Correct Positioning, Safety Issues Teaching Recipient: Patient Teaching Methods: Discussion Response to Teaching: Reinforcement Needed Time/GCodes Time In: 1305 Time Out: 1350 Total Billed Treatment Time: 45 Total Billed Treatment visit, FA X3 (45m) all 45m Co-treat w/OT OT worked on ADL while Seated, UE hand placement during transfers, sequencing and safety during transfers and standing PT worked on Sitting balance during ADL, LE placement during transfers/standing , safety/balance during standing and transfers JEFFREY COOK NEUROLOGICAL PHYSIOTHERAPIST Dec 21, 2016 15:07
[2016-12-21] MEDS: HYDROcodone/APAP 10 MG/325 MG (LORTAB) TAB PO PRN ×2 (15:14→23:43)
[2016-12-21] MEDS: morphine ER 30 MG (MS CONTIN) TAB PO SCH ×2 (16:33→21:13)
[2016-12-21 18:23] VITALS: BP 121/70
[2016-12-21] MEDS: VANCOMYCIN ORAL 250 MG/5 ML 60 ML PO SCH ×4 (18:28→23:25)
[2016-12-21] MEDS: SACUBITRIL/VALSARTAN 24/26 MG (ENTRESTO) TABLET PO SCH (21:14)
[2016-12-21] MEDS: CARVEDILOL 3.125 MG (COREG) TABLET PO SCH (21:14)
[2016-12-21] MEDS: ATORVASTATIN 40 MG (LIPITOR) TABLET PO SCH (21:14)
[2016-12-21] MEDS: CATHETER FLUSH 10 ML SYR IV PRN (23:43)
[2016-12-22] MEDS: VANCOMYCIN ORAL 250 MG/5 ML 60 ML PO SCH ×6 (05:12→18:06)
[2016-12-22] MEDS: morphine ER 30 MG (MS CONTIN) TAB PO SCH ×3 (05:13→21:01)
[2016-12-22 05:32] VITALS: BP 145/73
[2016-12-22] MEDS: LEVOTHYROXINE 100 MCG (LEVOTHROID) TAB PO SCH (06:18)
[2016-12-22] MEDS: CALCIUM CARBONATE 600 MG (CALCARB) TAB PO SCH (06:18)
[2016-12-22] MEDS: PANTOPRAZOLE 40 MG (PROTONIX) TAB PO SCH (06:18)
[2016-12-22] MEDS: LEVOTHYROXINE 75 MCG (LEVOTHROID) TABLET PO SCH (06:18)
[2016-12-22 06:36] LABS: MEAN PLATELET VOLUME 9.6 FL (7.4-10.4); RED BLOOD COUNT 3.23 10^6/uL (4.35-5.85); WHITE BLOOD COUNT 16.8 10^3/uL (4.3-11.0)
[2016-12-22 06:56] LABS: ANION GAP 5 MMOL/L (5-14); BLOOD UREA NITROGEN 3 MG/DL (7-18); BUN/CREATININE RATIO 4; CALCIUM 6.7 MG/DL (8.5-10.1); CARBON DIOXIDE 25 MMOL/L (21-32); CHLORIDE 109 MMOL/L (98-107); CREATININE SERUM 0.71 MG/DL (0.60-1.30); GFR ESTIMATED > 60; GLUCOSE 72 MG/DL (70-105); MAGNESIUM 1.5 MG/DL (1.8-2.4); POTASSIUM 3.5 MMOL/L (3.6-5.0); SODIUM 139 MMOL/L (135-145)
[2016-12-22] MEDS ORDERED: KCL 10 MEQ TAB (MICRO K) PO SCH (07:00)
[2016-12-22] MEDS: RT-ALBUTEROL/IPRATROPIUM 3 ML (DUONEB) VIAL INH SCH ×3 (07:32→19:19)
[2016-12-22] MEDS: metroNIDAZOLE 500 MG (FLAGYL) TAB PO SCH ×3 (08:13→20:02)
[2016-12-22] MEDS: FUROSEMIDE 20 MG (LASIX) TAB PO SCH (08:13)
[2016-12-22] MEDS: ASPIRIN E.C. 81 MG (ECOTRIN) TAB PO SCH (08:13)
[2016-12-22] MEDS: SACUBITRIL/VALSARTAN 24/26 MG (ENTRESTO) TABLET PO SCH ×2 (08:13→20:01)
[2016-12-22] MEDS: CARVEDILOL 3.125 MG (COREG) TABLET PO SCH ×2 (08:13→20:02)
[2016-12-22] MEDS: HYDROcodone/APAP 10 MG/325 MG (LORTAB) TAB PO PRN ×3 (08:13→20:01)
--- NOTE | 2016-12-22 09:52 | HISTORY AND PHYSICAL ---
DATE OF ADMISSION: 12/21/2016 CHIEF COMPLAINT: Difficulty with walking. HISTORY OF PRESENT ILLNESS: The patient is a 71-year-old male who was admitted to hospitalist service at [facility] on 12/14 after he presented to ER with fever and weakness. The patient was found to have severe sepsis. He was given appropriate IV fluids and antibiotics. Cardiology and pulmonology were consulted. The patient was placed on pressors therapy after central line placed. The patient was found to have left lower lobe pneumonia. Antibiotics were adjusted. The patient was seen by Dr. 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 He had ventilator dependent respiratory failure postop but was eventually extubated. He had general debilitation from all of this and referred to Inpatient Rehabilitation Unit. He had recently been treated for C. diff. bowel colitis. He has underlying COPD and severe congestive heart failure with a very depressed systolic function of 20%. He uses a life vest. The patient was begun on therapies and felt to be appropriate. He was noted to have 2+ peripheral pitting edema, medications were adjusted. The patient is now referred to Inpatient Rehabilitation Unit due to decline of functional independence. He is currently O2 dependent. He has had an extended medical history recently with multiple hospital admissions with short stay at a fdc. Prior to this, he was using a cane at home and caring for himself, independent in the community and able to drive. His decline has all been in the past 3 to 4 months. Currently he is max assist for transfers. Max assist to ambulate short distances with a front wheel walker. He requires assistance for his ADLs PAST MEDICAL HISTORY: 1. Arthritis. 2. Coronary artery disease. 3. COPD. 4. GERD. 5. Hypertension. 6. Hypothyroidism on placement. 7. Rheumatoid arthritis. 8. Peripheral vascular disease. PAST SURGICAL HISTORY: 1. Left Wrist fusion. 2. Left total knee replacement, Dr. Omalley. 3. Colon resection with diverting colostomy, as per above. ALLERGIES: Sulfa. FAMILY HISTORY: Noncontributory. SOCIAL HISTORY: Had been living with spouse until recently in a single level house in [place]. PCP: Dr. Grajeda. REVIEW OF SYSTEMS: Ten-point review of systems significant for generalized weakness, joint pain. MEDICATIONS: 1. ASA 81 mg p.o. daily. 2. Furosemide 20 mg p.o. daily. 3. Calcium carbonate 600 mg p.o. daily. 4. Protonix 20 mg p.o. daily. 5. KCL 10 mEq p.o. daily. 6. Levothyroxine 175 mcg p.o. daily. 7. Lipitor 40 mg p.o. at bedtime. 8. Coreg 3.125 mg p.o. b.i.d. 9. Entresto , 1 tablet p.o. b.i.d. 10. Vancomycin q.6 hours. The patient remains on contact precautions. 11. MS Contin 30 mg p.o. q.8 h. 12. DuoNeb treatments q.6 hours p.r.n. shortness of breath. 13. Lovenox 40 mg subcutaneous daily for DVT prophylaxis. 14. Flagyl 500 mg p.o. t.i.d. 15. Lortab 10, 1 tablet p.o. q.6 hours p.r.n. moderate pain. 16. Zofran 4 mg IV every 4 hours p.r.n. nausea, vomiting. PHYSICAL EXAMINATION: Significant for a pleasant male, appearing his stated age, lying in bed with O2 by nasal cannula in no acute distress. VITAL SIGNS: He is afebrile. Pulse is 78 and respirations 18, blood pressure 121/70. O2 sat 99% on 2 liters O2 by nasal cannula. HEENT: Vision, speech, hearing, grossly intact. O2 by nasal cannula in place. NECK: Supple without mass. HEART: Regular rhythm. LUNGS: Clear. ABDOMEN: Soft, nontender. Bowel sounds present. Colostomy site in place, functioning. EXTREMITIES: Plus edema in ankles. No calf tenderness. MUSCULOSKELETAL: The patient has functional active range of motion other than the left wrist for which he has fusion, I believe with Dr. Omalley. He lacks extension, but has some functional water operator strength and flexion of the wrist. NEUROLOGICAL: He is right-hand dominant. Sensation is grossly intact to touch. He has thoracic kyphosis. He reports some leakage with bowel incontinence and bladder incontinence as well. Strength of the lower extremity grossly 3/5. Right knee is limited in extension and flexion. 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 The patient is able to flex bilateral shoulders to approximately 90 degrees, can make bilateral fists but unable to fully extend fingers. His upper extremity coordination is impaired from arthritis. Upper extremity strength 2+/5 bilateral. He has some edema in both hands as well. IMPRESSION: 1. General debilitation secondary to severe sepsis due to pneumonia.. 2. Pseudomembranous colitis status post colon resection with diverting colostomy, Dr. Jaime. 3. Status post postop ventilator dependent respiratory failure, now extubated. 4. Congestive heart failure with very depressed systolic function of 20%, uses life vest. 5. COPD. 6. Recent C-difficile colitis still on contact precautions and on meds. 7. Severe RA with deformities and chronic pain status post left total knee replacement and left wrist plating. PLAN: The patient will have a comprehensive program of inpatient rehabilitation with a goal of maximizing level of functional independence prior to discharge home with spouse. The patient will have PT/OT 90 minutes per day, each discipline, 5 days week for gait strengthening, conditioning, balance, ADLs, any patient/family/caregiver training necessary, any adaptive equipment and training necessary, modalities for pain as needed. Speech therapy has done cognitive assessment and found patient to be functional and signed off. Rehabilitation nursing to assist with bowel, bladder, skin, wound care, medication administration, pain management. managed services consultant to assist with discharge planning, community reentry. Respiratory therapy to assist with O2 administration, maintaining O2 sats more than 92%. Follow-up with hospitalist services per their schedules. Continue present medications for contact precautions. Therapy with cardiac and fall precautions. managed services consultant to assist with discharge planning, community reentry. ESTIMATED LENGTH OF STAY: 2 to 3 weeks. PROGNOSIS: Rehab prognosis appears good for goal of returning to prior level of function in home with spouse. DIET: Mechanically altered. CODE STATUS: Full code. Follow-up with pulmonology, Surgery and cardiology as per their schedules. LABS: This a.m.12/22/16 noted see orders. SCDs for DVT prophylaxis. POST ADMISSION PHYSICIAN ASSESSMENT: The preadmission screen agrees with the post admission assessment that the patient is a good candidate for inpatient rehabilitation. The patient appears to be well motivated to participate in 3 hours of therapy a day. He should be able tolerate 3 hours of therapy a day. He should benefit from the 3 hours of therapy a day. He has a reasonable discharge plan, reasonable discharge rehabilitation goals and a supportive family. The patient also follow-up Dr. Jaime, general surgery p.r.n. The patient and family will require colostomy training. The patient has various comorbidities that need to be closely monitored and medications and treatments adjusted on a daily basis as needed. These include his rheumatoid arthritis, his chronic pain associated with this and his cardiac disease. BARRIERS TO DISCHARGE: Barriers to discharge for this patient who had up until recently had been modified independent are for him to be modified independent to supervision for ADLs and mobility skills prior to discharge home with spouse and home health care, so as to lessen the burden of the caregivers. RISKS FOR THIS PATIENT: Include: 1. Fall. 2. Fracture. 3. Dehiscence of ostomy. 4. Wound infection. 5. Skin breakdown. 6. Contractures. 7. DVT. 8. Pulmonary embolism. 9. Urinary retention. 10. UTI. 11. Respiratory infection. 12. Aspiration. 13. Poorly controlled pain. 14. Acute exacerbation. 15. Bout of congestive heart failure. 16. Flare of rheumatoid arthritis. Job ID: [id number] Dictated Date: 12/21/2016 21:27:36 Commercial Estimator Date: 12/22/2016 09:27:15/meño [place]
--- NOTE | 2016-12-22 10:37 | Progress Note-Hospitalist ---
Progress Note Progress Notes/Assess & Plan Date Seen 12/22/16 Diagonsis/Assessment & Plan Chart Review: WBC 16.9, Hgb 8.7, Plts 424k, K+ 3.5, Creat 0.71 director of recruiting: Pt had four bags of K+ yesterday and went from 3.2 yesterday to 3.5 today. Patient Interview: Pt states he is doing well currently. Physical exam was stable. Scribed by Tereso Guerrero under the direct supervision of Dr. Urbano. AFVSS, Chronically ill, not as pleasant as yesterday but overall stable Regular rate and rhythm, clear to auscultation bilaterally but diminished in the bases No edema change 1+ Laboratory Tests 12/22/16 06:15 Assessment: Pseudomembranous colitis s/p colon resection w/diverting colostomy POD # 6 s/p VDRF following surgery Severe sepsis due to pneumonia completed Zosyn Severe congestive heart failure with very depressed systolic function of 20 percent uses LifeVest COPD Recent pneumonia Recent C. difficile colitis Overall debility requiring long-term placement just discharged Plan: potassium supp Pain meds Monitor closely C diff tx prognosis very guarded OCTAVIO URBANO DO Dec 22, 2016 10:37
--- NOTE | 2016-12-22 11:14 | PM & R (SOAP) Progress Note ---
Subjective Subjective/Events-last exam Patient was seen in his room this AM Appreciate DR Holden note and orders as well as labs K replacement ordered.Appreciate Therapy notes ST has signed off.Patient mod assist for transfers Review of Systems Pulmonary: Dyspnea Gastrointestinal: Other (incision pain) Objective Exam Last Set of Vital Signs Vital Signs Date Time Temp Pulse Resp B/P (MAP) Pulse Ox O2 Delivery O2 Flow Rate FiO2 12/22/16 09:00 Nasal Cannula 2.00 12/22/16 07:32 91 12/22/16 05:32 97.9 81 18 145/73 Capillary Refill : I&O Bad tableGeneral: Alert, Oriented X3, Cooperative, No Acute Distress HEENT: Atraumatic, PERRLA, EOMI, Mucous Memb Moist/[place] Neck: Supple, No JVD Lungs: Clear to Auscultation Heart: Regular Rate Abdomen: Normal Bowel Sounds, Soft, No Tenderness, Other (colostomy functioning ) Extremities: Other (trace edema) Neuro: Other (lower ext strength 3/5 arthritic changes in hands and knees) Results Lab Laboratory Tests 12/22/16 06:15: White Blood Count 16.8H, Red Blood Count 3.23L, Hemoglobin 8.7L, Hematocrit 27L , Mean Corpuscular Volume 85, Mean Corpuscular Hemoglobin 27, Mean Corpuscular Hemoglobin Concent 32, Red Cell Distribution Width 19.0H, Platelet Count 424H, Mean Platelet Volume 9.6, Sodium Level 139, Potassium Level 3.5L, Chloride Level 109H, Carbon Dioxide Level 25, Anion Gap 5, Blood Urea Nitrogen 3L, Creatinine 0.71, Estimat Glomerular Filtration Rate > 60, BUN/Creatinine Ratio 4 , Glucose Level 72, Calcium Level 6.7L, Magnesium Level 1.5L Assessment/Plan Assessment general debil s/p sepsis secondary to Pseudomembranous colitis s/p colectomy and divertimg colostomy DR Jaime on iv antibiotics Copd Gerd HTN Hypokalemia-replace Hypomagnesemia- on replacement DVT prophylaxis-on Lovenox Subcut Plan Continue PT/OT F/U with Hospitalist service and DR Jaime et al as per [facility] schedule Ongoing wound care and pain management Ostomy education for Patient and spouse Monitor labs and 02 sats and adjust meds as indicated. NATALIYA KHANNA MD Dec 22, 2016 11:14
--- NOTE | 2016-12-22 11:21 | Individualized Plan of Care ---
Individualized Plan of Care Rehab Nursing IPOC Order Admission Date Dec 21, 2016 at 12:10 Current Orders Orders Dys2 Mechanically Altered (12/21/16 Lunch) Admission Arrival Bed Request (12/21/16 12:09) Admission-Acute Rehab Unit (12/21/16 12:22) Code/Resuscitation (12/21/16 12:24) Sequential Compression Device 08,20 (12/21/16 12:24) Albuterol/Ipra Inhalation Soln (Duoneb I (12/21/16 12:30) Enoxaparin Injection (Lovenox Injection) (12/21/16 14:00) Ns Iv 1000 Ml (Sodium Chloride 0.9%) (12/21/16 12:30) Ondansetron Injection (Zofran Injectio (12/21/16 12:30) Piperacillin Sodium/Tazobactam (Zosyn Vi (12/21/16 14:00) Sodium Chloride Flush (Catheter Flush Sy (12/21/16 12:30) Metronidazole Tablet (Flagyl Tablet) (12/21/16 13:00) Mat Protocol-Rt Rfs (12/21/16 12:24) Physical Therapy Oder (12/21/16 12:24) Svn Sm Volume Nebulizer Rt-Rfs (12/21/16 12:24) Svn Sm Volume Nebulizer Rt-Rfs (12/21/16 12:24) Request Ot Evaluate & Treat (12/21/16 12:24) Request For Cognitive Services (12/21/16 12:24) Magnesium 1 Gm/100 Ml Ivpb (Magnesium Ferrara (12/21/16 13:00) Potassium Cl 10meq/50ml Ivpb (Kcl 10 Meq (12/21/16 13:00) Morphine Injection (Morphine Injection (12/21/16 13:00) Aspirin Enteric Coated Tablet (Ecotrin T (12/22/16 09:00) Atorvastatin Tablet (Lipitor) (12/21/16 21:00) Calcium Carbonate Tablet (Calcarb 600 Ta (12/22/16 07:00) Carvedilol Tablet (Coreg Tablet) (12/21/16 21:00) Furosemide Tablet (Lasix Tablet) (12/22/16 09:00) Hydrocodone/Apap 10/325 Tablet (Lortab 1 (12/21/16 13:00) Levothyroxine Tablet (Synthroid Tablet) (12/22/16 06:30) Levothyroxine Tablet (Synthroid Tablet) (12/22/16 06:30) Morphine Er Tablet (Ms Contin Tablet) (12/21/16 13:00) Pantoprazole Tablet (Protonix Tablet) (12/22/16 07:00) Potassium Chloride (Tablet) (Klor Con Ta (12/22/16 07:00) Sacubitril/Valsartan 24/26 Mg (Entresto (12/21/16 21:00) Albuterol/Ipra Inhalation Soln (Duoneb I (12/21/16 15:00) Albuterol/Ipra Inhalation Soln (Duoneb I (12/21/16 14:00) Svn Sm Volume Nebulizer Rt-Rfs (12/21/16 13:04) Request Ot Evaluate & Treat (12/21/16 13:06) Dinh Syrup (Dinh Syrup) 30 Ml, Vanco (12/21/16 18:00) Consult Physician (12/21/16 13:06) Consult Physician (12/21/16 13:06) Consult Physician (12/21/16 13:06) Wound Care Physician Consult (12/21/16 13:06) Isolation Central Supply Req (12/21/16 13:06) Cbc No Diff (12/22/16 06:00) Basic Metabolic Panel (12/22/16 06:00) Magnesium (12/22/16 06:00) Oxygen-Administer 07,19 (12/21/16 13:06) Patient Visit (12/21/16 ) Speech Sound Lang Comp (12/21/16 ) Patient Visit (12/21/16 ) Functional Activities, Ea 15 (12/21/16 ) Morphine Er Tablet (Ms Contin Tablet) (12/21/16 15:45) Patient Visit (12/21/16 ) Pt Eval High Complexity (12/21/16 ) Functional Activities, Ea 15 (12/21/16 ) Potassium Chloride (Tablet) (Klor Con Ta (12/22/16 21:00) Toilet every (bladder): (hrs): q 2 hours while awake as needed Other Nursing Orders: colostomy education PT IPOC Problem List: Activity Tolerance, Functional Strength, Safety, Balance, Gait, Transfer, Bed Mobility Treatment Plan: Continue Plan of Care Bed Mobility, Education, Functional Activity Juli, Functional Strength, Group Therapy, Gait, Safety, Therapeutic Exercise, Transfers Treatment Duration: January 18, 2017 Visits Per Week: 10-15 Minutes/Day (M-F): 60-90 Minutes/Day (Sat/Ferrara): prn OT IPOC Problems: Decreased Activ Tolerance, Decreased UE Strength, Dependent Transfers , Impaired Bed Mobility, Impaired Funct Balance, Impaired I ADL's, Impaired Self -Care Skills, Restricted Funct UE ROM Plan of Care: ADL Retraining, Caregiver Training, Functional Mobility, Group Exercise/Act as Ind, UE Funct Exercise/Act Treatment Duration: January 18, 2017 Visits Per Week: 10-12 Minutes/Day (M-F): 60-90 Minutes/Day (Sat/Ferrara): prn ST IPOC Speech Therapy Treatment Plan: Discontinue ST Physician IPOC Medical Issues being managed closely and that require the 24 hour availability of a physician: pain management electrolyle abnormality postop anemia wound care Medical Issues: Bowel/Bladder Function, DVT Prophylaxis, Falls Precautions, Fluid/Electrolyte/Nutrition Balance, Infection Protection, Pain Management, Wound Care, Other (List) (as per above) Brief Synthesis of Preadmission Screen, Post-Admission Evaluation, and Therapy Evaluations: 71 yo male who had been modified independent prior to sepsis due to pseudomembranous colitis requring colectomy with diverting colostomy.PMH COPD CHF RA recent cdif bowel colitis Medical Prognosis: good Anticipated Length of Stay: 01/18/17 Rehab Goals Modifeid Independent for adls and mobility skills with decreased pain and good wound healing and [place] in colostomy care Anticipated discharge destinat: Home with spouse and [facility] NATALIYA KHANNA MD Dec 22, 2016 11:21
--- NOTE | 2016-12-22 12:30 | Physical Therapy Daily Note ---
PT Daily Note-Current Subjective Pt is supine in bed upon arrival. Pt reports pain but seems to be feeling better today. Pt agrees to PT with rest breaks. Pain Numeric Pain Scale: 8 Location: Incisional Location Body Site: Abdomen Pain Description: Ache Mental Status Patient Orientation: Person, Place, Situation Transfers Functional [place] Measure 0=Not Assessed/NA 4=Minimal Assistance 1=Total Assistance 5=Supervision or Setup 2=Maximal Assistance 6=Modified [place] 3=Moderate Assistance 7=Complete IndependenceIRFPAI Quality Coding Scale 6 Independent with activity with or without an assistive device 5 Patient requires set up or clean up by helper. Patient completes activity by themselves 4 Supervision or touching assist (CGA). [place] provide cues , steadying assist 3 The helper provides less than half the effort to complete the activity 2 The helper provides more than half the effort to complete the activity 1 Dependent. The helper does all the effort to complete an activity 7 Patient refused to complete or attempt activity 9 The patient did not perform the activity before the current illness or injury 88 Not attempted due to Medical conditions or safety concerns Weight Bearing Weight Bearing Restriction: Full Weight Bearing Location Restriction: LE Bilateral Exercises Supine Ex: Ankle pumps, Quad Set, Heel Slides, Straight leg raise, Hip abd/add Supine Reps: 20 Treatments Pt performs Supine Ex in bed with frequent rest breaks due to fatigue. PT gives instruction for deep breathing during EX as well as in between EX. Pt is given pt education on importance of keeping our body moving and finding a balance between pain and movement to increase independence with activity as well as activity tolerance. Pt uses urinal during tx due to lactics. Pt needs PT to order lunch. Pt is fatigued at end of tx. Pt left with all needs met at end of tx. Assessment Current Status: Fair Progress Pt continues to hold a lot of fluid which prevents/yas movement. Pt is AROM with Ex but continues to fatigue easy and needs long frequent rest breaks. PT Short Term Goals Short Term Goals Time Frame: Jan 04, 2017 Transfers (B,C,W/C) (FIM): 4 Gait (FIM): 2 Distance (FIM): 3=359-15 ft Gait Assistive Device: FWW Stairs (FIM): 2 # of Steps: 4 PT Long-Term Goals Long-Term Goals PT Long-Term Goals Time Frame: January 18, 2017 Transfers (B,C,W/C) (FIM): 6 Sit to Lying (QC): 6 Lying-Sitting on Side/Bed(QC): 6 Sit to Stand (QC): 6 Rollin Roll Left to Right (QC): 6 Chair/Hfe-tw-Qimbt Xfer(QC): 6 Car Transfer (QC): 5 Does the Patient Walk: Yes Gait (FIM): 5 Gait distance (FIM): 0=147-01 ft Walk 10 feet (QC): 5 Walk 10ft-Uneven Surface(QC): 5 Walk 50ft with 2 Turns (QC): 5 Walk 150 ft (QC): 88 Gait Assistive Device: FWW Does the Pt use WC or Scooter?: Yes Wheelchair (FIM): 6 Wheelchair distance (FIM): 3=150 ft Wheel 50 feet with 2 turns (QC: 6 Stairs (FIM): 2 # of Steps: 4 1 Step (curb) (QC): 5 4 Steps (QC): 5 12 Steps (QC): 88 Picking up an Object (QC): 88 PT Plan Problem List Problem List: Activity Tolerance, Functional Strength, Safety, Balance, Gait, Transfer, Bed Mobility, ROM Treatment/Plan Treatment Plan: Continue Plan of Care Treatment Plan: Bed Mobility, Education, Functional Activity Juli, Functional Strength, Group Therapy, Gait, Safety, Therapeutic Exercise, Transfers Treatment Duration: January 18, 2017 Visits Per Week: 10-15 Minutes/Day (M-F): 60-90 Minutes/Day (Sat/Ferrara): prn Safety Risks/Education Patient Education: Transfer Techniques, Correct Positioning, Safety Issues Teaching Recipient: Patient Teaching Methods: Discussion Response to Teaching: Verbalize Understanding Time/GCodes Time In: 1120 Time Out: 1220 Total Billed Treatment Time: 60 Total Billed Treatment visit, FA X2 (30m) & EX X2 (30m) JEFFREY COOK GENERAL PRODUCTION LABORER Dec 22, 2016 12:30
--- NOTE | 2016-12-22 13:16 | Cardiology Progress Note ---
Subjective Subjective/Events-last exam Patient sitting up in bed, eating lunch. Denies any CP or dyspnea. Review of Systems General: No Night Sweats, No Fatigue, No Malaise HEENT: No Visual Changes, No Dysphasia, No Sore Throat Pulmonary: No Dyspnea, No Cough Cardiovascular: No: Chest Pain, Edema, Palpitations, Paroxysmal Noc. Dyspnea Gastrointestinal: No: Abdominal Pain, Nausea, Vomiting Genitourinary: No Dysuria, No Frequency Musculoskeletal: No: back pain, neck pain Neurological: No: Change in speech, Confusion, Numbness, Weakness Objective-Cardiology Exam Last Set of Vital Signs Vital Signs 12/22/16 12/22/16 12/22/16 05:32 07:32 09:00 Temp 97.9 Pulse 81 Resp 18 B/P (MAP) 145/73 Pulse Ox 91 O2 Delivery Nasal Cannula O2 Flow Rate 2.00 Capillary Refill : I&O Bad tableGeneral: Alert, Oriented X3, Cooperative, No Acute Distress HEENT: Atraumatic, PERRLA, EOMI, Mucous Memb Moist/[place] Neck: Supple, No JVD Lungs: Clear to Auscultation Heart: Regular Rate Abdomen: Normal Bowel Sounds, Soft, No Tenderness, Other (colostomy functioning ) Extremities: Other (trace edema) Neuro: Normal Speech, Cranial Nerves 3-12 NL Psych/Mental Status: Mental Status NL Results Lab Laboratory Tests 12/22/16 06:15 A/P-Cardiology Admission Diagnosis C. difficile colitis Sepsis CHF PVD Assessment/Plan C. difficile colitis, status post extended left hemicolectomy with Pam procedure, recovering slowly, continue to monitor at this time. Continue on current treatment. Sepsis, better, continue to monitor closely. Short of breath, improving, responded to Lasix. Monitor closely. Hypokalemia, hypomagnesemia, replaced, continue to monitor Peripheral edema, started back on Lasix. Continue to monitor Congestive heart failure, nonischemic cardiomyopathy, acute on chronic left ventricular systolic dysfunction with most recent ejection fraction improved to 50 percent. Maintained on beta gurpreet and Entresto. Status post anoxic encephalopathy and pneumonia and sepsis early in October, improved with aggressive therapy. Back to his baseline. Continue to monitor. Status post acute renal failure. Improved, monitor renal function closely Peripheral vascular disease with history of nonhealing wounds bilaterally. Peripheral angiogram done 12/04/16 revealed moderate atherosclerotic disease on the left lower extremity, the anterior tibial artery is severely diseased on the left lower extremity but the ulcer on the left lower extremity has healed. Medical therapy is recommended. Moderate disease of the right lower extremity with good flow, with three-vessel flow down to the foot. Continue medical management at this time and continue to monitor. Small infrarenal abdominal aortic aneurysm noted during peripheral angiogram. Continue to monitor Hypertension,controlled. Continue to monitor blood pressure. Hyperlipidemia, continue to hold statin. Hyperthyroidism, history of hypothyroidism and Levothroid, managed by primary care physician History of pulmonary hypertension, continue to monitor History of rheumatoid arthritis. COPD, managed and followed by primary care physician Tobaccoism, patient has stopped smoking after the last admission. Encouraged to continue with smoking cessation History of chronic narcotic use, urine drug screen is positive for opioids Clinical Quality Measures DVT/VTE Risk/Contraindication: Risk Factor Score Per Nursin RFS Level Per Nursing on Admit: 4+=Very High FATUMA GARCES Dec 22, 2016 13:16
[2016-12-22] MEDS: ENOXAPARIN 40 MG/0.4 ML (LOVENOX) SYR SC SCH (14:19)
--- NOTE | 2016-12-22 15:08 | Occupational Ther Daily Note ---
OT Current Status-Daily Note Subjective No pain reported. Appearance Pt. in bed. Agrees to work with OT. Mental Status/Objective Patient Orientation: Person, Place Functional [place] Measure 0=Not Assessed/NA 4=Minimal Assistance 1=Total Assistance 5=Supervision or Setup 2=Maximal Assistance 6=Modified [place] 3=Moderate Assistance 7=Complete [place] Attachments: IV ADL-Treatment Functional [place] Measure 0=Not Assessed/NA 4=Minimal Assistance 1=Total Assistance 5=Supervision or Setup 2=Maximal Assistance 6=Modified [place] 3=Moderate Assistance 7=Complete IndependenceIRFPAI Quality Coding Scale 6 Independent with activity with or without an assistive device 5 Patient requires set up or clean up by helper. Patient completes activity by themselves 4 Supervision or touching assist (CGA). [place] provide cues , steadying assist 3 The helper provides less than half the effort to complete the activity 2 The helper provides more than half the effort to complete the activity 1 Dependent. The helper does all the effort to complete an activity 7 Patient refused to complete or attempt activity 9 The patient did not perform the activity before the current illness or injury 88 Not attempted due to Medical conditions or safety concerns Bathing (FIM): 3 (Pt. sat on side of bed to spongebathe. Required mod assist overall due to needing assist with bilateral feet and with rear shailesh area. Pt. attempted to wash shailesh area, but required assist to get it thoroughly.) Lower Body Dressing (FIM): 2 (Pt. requires max assist to doff and don socks.) On/Off Footwear (QC): 2 Toileting (FIM): 2 (Pt. has colostomy, and requires assist to place urinal and empty it.) Transfers (B, C, W/C) (FIM): 3 (Pt. requires min assist for supine-sit, and mod assist for sit to stand. Once on feet, able to stand with CGA and take steps to right to get higher in bed. Requires increased time for this.) Other Treatment Pt. agreed to treatment. Doing better today. Has street clothing available but due to incision, colostomy, and urination issues felt it better to don hospital gown. Requires increased time to complete all tasks. Education OT Patient Education: Correct positioning, Modified ADL techniques, Progress toward Goal/Update tx plan, Purpose of tx/functional activities, Reviewed precautions, Rehab process, Transfer techniques Teaching Recipient: Patient Teaching Methods: Demonstration, Discussion Response to Teaching: Verbalize Understanding, Return Demonstration OT Short Term Goals Short Term Goals Time Frame: Jan 04, 2017 Eating(FIM): 5 Grooming(FIM): 5 Bathing(FIM): 4 Upper Body Dressing(FIM): 4 Lower Body Dressing(FIM): 4 Toileting(FIM): 4 Transfers (B,C,W/C) (FIM): 4 Toilet/Commode Transfer(FIM): 5 Shower Transfer(FIM): 5 Additional Short Term Goals: 1-Demonstrate ADL Tasks, 2-Verbalize Understanding , 3-ImproveStrength/Juli 1=Demonstrate adherence to instructed precautions during ADL tasks. 2=Patient will verbalize/demonstrate understanding of assistive devices/ modifications for ADL. 3=Patient will improve strength/tolerance for activity to enable patient to perform ADL's. OT Retirement Goals Retirement Goals Time Frame: January 18, 2017 Eating (FIM): 6 Eating (QC): 6 Groomin Oral Hygiene (QC): 6 Bathing(FIM): 5 Shower/Bathe Self (QC): 5 Upper Body Dressing(FIM): 6 Upper Body Dressing (QC): 6 Lower Body Dressing(FIM): 6 Lower Body Dressing (QC): 6 On/Off Footwear (QC): 6 Toileting(FIM): 6 Toileting Hygiene (QC): 6 Transfers (B,C,W/C) (FIM): 6 Toilet/Commode Transfer(FIM): 6 Toilet/Commode Transfer (QC): 6 Shower Transfer(FIM): 5 Additional Goals: 1-Demonstrate ADL Tasks, 2-Verbalize Understanding, 3- ImproveStrength/Juli 1=Demonstrate adherence to instructed precautions during ADL tasks. 2=Patient will verbalize/demonstrate understanding of assistive devices/ modifications for ADL. 3=Patient will improve strength/tolerance for activity to enable patient to perform ADL's. OT Education/Plan Problem List/Assessment Assessment: Decreased Activ Tolerance, Decreased UE Strength, Dependent Transfers, Impaired Bed Mobility, Impaired Coordination, Impaired Funct Balance , Impaired I ADL's, Impaired Self-Care Skills, Restricted Funct UE ROM Discharge Recommendations Plan/Recommendations: Continue POC Therapy D/C Recommendations: Home w/ Family Support, Occupational Therapy Home Care, Scheduled Assistance Target Placement Pt. would like to return home with spouse. Treatment Plan/Plan of Care Treatment,Training & Education: Yes Patient would benefit from OT for education, treatment and training to promote independence in ADL's, mobility, safety and/or upper extremity function for ADL' s. Plan of Care: ADL Retraining, Caregiver Training, Functional Mobility, Group Exercise/Act as Ind, UE Funct Exercise/Act Treatment Duration: January 18, 2017 Visits Per Week: 10-12 Minutes/Day (M-F): 60-90 Minutes/Day (Sat/[place]): prn Agreement: Yes Rehab Potential: Fair Time/GCodes Start Time: 10:30 Stop Time: 11:15 Total Time Billed (hr/min): 45 Billed Treatment Time 1, ADL x 3 JENNI OSBORN OT Dec 22, 2016 15:08
--- NOTE | 2016-12-22 15:14 | Occupational Ther Daily Note ---
OT Current Status-Daily Note Subjective Pt. in bed. No complaint of pain. Appearance Pt. finishing lunch. Agreed to work with OT. Mental Status/Objective Patient Orientation: Person, Place Functional [place] Measure 0=Not Assessed/NA 4=Minimal Assistance 1=Total Assistance 5=Supervision or Setup 2=Maximal Assistance 6=Modified [place] 3=Moderate Assistance 7=Complete [place] Attachments: Colostomy/Ileostomy, IV ADL-Treatment Functional [place] Measure 0=Not Assessed/NA 4=Minimal Assistance 1=Total Assistance 5=Supervision or Setup 2=Maximal Assistance 6=Modified [place] 3=Moderate Assistance 7=Complete IndependenceIRFPAI Quality Coding Scale 6 Independent with activity with or without an assistive device 5 Patient requires set up or clean up by helper. Patient completes activity by themselves 4 Supervision or touching assist (CGA). [place] provide cues , steadying assist 3 The helper provides less than half the effort to complete the activity 2 The helper provides more than half the effort to complete the activity 1 Dependent. The helper does all the effort to complete an activity 7 Patient refused to complete or attempt activity 9 The patient did not perform the activity before the current illness or injury 88 Not attempted due to Medical conditions or safety concerns Eating (FIM): 5 (OT had brought pt. foam built up handles due to arthritis. However, observed him eating lunch and pt. did not need these handles.) Grooming (FIM): 4 (Pt. requires min assist to comb hair. Unable to fully reach it in back.) Pt. tolerated bilateral UE exercises at bed level. First though, pt. demonstrated ability with great effort to scoot self up in bed. Bed flat and pt. able to grab rails and use feet to propel up toward HOB. Pt. then completed 20 hand squeezes with red sponge in bilateral UE for continued fine motor strengthening and coordination. Tolerated 2 Bilateral UE exercises x 15 reps each with red theraband, and then 20 bilateral reps in elbow flexion with 2 lb. dumbbell. All needs met at bed level. Education OT Patient Education: Correct positioning, Exercise program, Modified ADL techniques, Progress toward Goal/Update tx plan, Purpose of tx/functional activities, Reviewed precautions, Rehab process, Transfer techniques Teaching Recipient: Patient Teaching Methods: Demonstration, Discussion Response to Teaching: Verbalize Understanding, Return Demonstration OT Short Term Goals Short Term Goals Time Frame: Jan 04, 2017 Eating(FIM): 5 Grooming(FIM): 5 Bathing(FIM): 4 Upper Body Dressing(FIM): 4 Lower Body Dressing(FIM): 4 Toileting(FIM): 4 Transfers (B,C,W/C) (FIM): 4 Toilet/Commode Transfer(FIM): 5 Shower Transfer(FIM): 5 Additional Short Term Goals: 1-Demonstrate ADL Tasks, 2-Verbalize Understanding , 3-ImproveStrength/Juli 1=Demonstrate adherence to instructed precautions during ADL tasks. 2=Patient will verbalize/demonstrate understanding of assistive devices/ modifications for ADL. 3=Patient will improve strength/tolerance for activity to enable patient to perform ADL's. OT Chcf Goals Chcf Goals Time Frame: January 18, 2017 Eating (FIM): 6 Eating (QC): 6 Groomin Oral Hygiene (QC): 6 Bathing(FIM): 5 Shower/Bathe Self (QC): 5 Upper Body Dressing(FIM): 6 Upper Body Dressing (QC): 6 Lower Body Dressing(FIM): 6 Lower Body Dressing (QC): 6 On/Off Footwear (QC): 6 Toileting(FIM): 6 Toileting Hygiene (QC): 6 Transfers (B,C,W/C) (FIM): 6 Toilet/Commode Transfer(FIM): 6 Toilet/Commode Transfer (QC): 6 Shower Transfer(FIM): 5 Additional Goals: 1-Demonstrate ADL Tasks, 2-Verbalize Understanding, 3- ImproveStrength/Juli 1=Demonstrate adherence to instructed precautions during ADL tasks. 2=Patient will verbalize/demonstrate understanding of assistive devices/ modifications for ADL. 3=Patient will improve strength/tolerance for activity to enable patient to perform ADL's. OT Education/Plan Problem List/Assessment Assessment: Decreased Activ Tolerance, Decreased UE Strength, Dependent Transfers, Impaired Bed Mobility, Impaired Funct Balance, Impaired I ADL's, Impaired Self-Care Skills Discharge Recommendations Plan/Recommendations: Continue POC Therapy D/C Recommendations: Home w/ Family Support, Occupational Therapy Home Care, Scheduled Assistance Treatment Plan/Plan of Care Treatment,Training & Education: Yes Patient would benefit from OT for education, treatment and training to promote independence in ADL's, mobility, safety and/or upper extremity function for ADL' s. Plan of Care: ADL Retraining, Caregiver Training, Functional Mobility, Group Exercise/Act as Ind, UE Funct Exercise/Act Treatment Duration: January 18, 2017 Visits Per Week: 10-12 Minutes/Day (M-F): 60-90 Minutes/Day (Sat/[place]): prn Agreement: Yes Rehab Potential: Fair Time/GCodes Start Time: 13:00 Stop Time: 13:45 Total Time Billed (hr/min): 45 Billed Treatment Time 1, EX x 3 JENNI OSBORN OT Dec 22, 2016 15:14
--- NOTE | 2016-12-22 15:16 | Physical Therapy Daily Note ---
PT Daily Note-Current Subjective Patient is very agreeable to participate with PT. Pain Numeric Pain Scale: 8 Location: Medial Location Body Site: Abdomen Pain Description: Pressure Mental Status Patient Orientation: Normal For Age Attachments: Oxygen Transfers Functional [place] Measure 0=Not Assessed/NA 4=Minimal Assistance 1=Total Assistance 5=Supervision or Setup 2=Maximal Assistance 6=Modified [place] 3=Moderate Assistance 7=Complete IndependenceIRFPAI Quality Coding Scale 6 Independent with activity with or without an assistive device 5 Patient requires set up or clean up by helper. Patient completes activity by themselves 4 Supervision or touching assist (CGA). [employer] provide cues , steadying assist 3 The helper provides less than half the effort to complete the activity 2 The helper provides more than half the effort to complete the activity 1 Dependent. The helper does all the effort to complete an activity 7 Patient refused to complete or attempt activity 9 The patient did not perform the activity before the current illness or injury 88 Not attempted due to Medical conditions or safety concerns Transfers (B, C, W/C) (FIM): 4 Scootin Rollin Roll Left to Right (QC): 4 Supine to/from Sit: 4 Sit to/from Stand: 4 Sit to Lying (QC): 4 Sit to Stand (QC): 4 Patient demonstrated SBA with supine to sit EOB and min assist with sit to supine. CGA with gait belt in place with sit to stand transfer to FWW Gait Training Does the Patient Walk?: Yes Gait (FIM): 1 Distance (FIM): 1=up to 49 ft Distance: 15' x 2 Walk 10 feet (QC): 4 Gait Level of Assist: 4 Gait Persons Needed: 1 Gait Assistive Device: FWW Patient ambulates short distances PLOF secondary to RA with right knee severely effected. CGA for safety with gait belt with very slow gait sequence. Exercises Supine Ex: Rolling Seated Therapy Exercises: Ankle pumps, Long arc quads Seated Reps: 10 Assessment Patient requires time to complete all functional tasks. Patient is very motivated with progress. PT to increase activity as tolerated by patient. PT Short Term Goals Short Term Goals Time Frame: Jan 04, 2017 Transfers (B,C,W/C) (FIM): 4 Gait (FIM): 2 Distance (FIM): 7=866-93 ft Gait Assistive Device: FWW Stairs (FIM): 2 # of Steps: 4 PT Electromagnet Crane Operator Goals Senior Care Goals PT Senior Care Goals Time Frame: January 18, 2017 Transfers (B,C,W/C) (FIM): 6 Sit to Lying (QC): 6 Lying-Sitting on Side/Bed(QC): 6 Sit to Stand (QC): 6 Rollin Roll Left to Right (QC): 6 Chair/[id number] Xfer(QC): 6 Car Transfer (QC): 5 Does the Patient Walk: Yes Gait (FIM): 5 Gait distance (FIM): 1=393-05 ft Walk 10 feet (QC): 5 Walk 10ft-Uneven Surface(QC): 5 Walk 50ft with 2 Turns (QC): 5 Walk 150 ft (QC): 88 Gait Assistive Device: FWW Does the Pt use WC or Scooter?: Yes Wheelchair (FIM): 6 Wheelchair distance (FIM): 3=150 ft Wheel 50 feet with 2 turns (QC: 6 Stairs (FIM): 2 # of Steps: 4 1 Step (curb) (QC): 5 4 Steps (QC): 5 12 Steps (QC): 88 Picking up an Object (QC): 88 PT Plan Treatment/Plan Treatment Plan: Continue Plan of Care Treatment Plan: Bed Mobility, Education, Functional Activity Juli, Functional Strength, Group Therapy, Gait, Safety, Therapeutic Exercise, Transfers Treatment Duration: January 18, 2017 Visits Per Week: 10-15 Minutes/Day (M-F): 60-90 Minutes/Day (Sat/F[place]ara): prn Time/GCodes Time In: 1426 Time Out: 1456 Total Billed Treatment Time: 30 Total Billed Treatment 1 visit GT 20 min EX 10 min LIZET SARMIENTO PT Dec 22, 2016 15:16
--- NOTE | 2016-12-22 16:40 | Cardiology Progress Note ---
Subjective Subjective/Events-last exam Patient is laying down in bed, feeling better, diarrhea is better. No chest pain. Review of Systems General: No Chills, No Night Sweats, No Fatigue, No Malaise, No Appetite, No Other HEENT: No Head Aches, No Visual Changes, No Eye Pain, No Ear Pain, No Dysphasia , No Sinus Congestion, No Post Nasal Drip, No Sore Throat, No Other Pulmonary: No Dyspnea, No Cough, No Pleuritic Chest Pain, No Other Cardiovascular: No: Chest Pain, Edema, Lt Headedness, Orthopnea, Other, Palpitations, Paroxysmal Noc. Dyspnea Objective-Cardiology Exam Last Set of Vital Signs Vital Signs 12/22/16 12/22/16 12/22/16 05:32 09:00 14:57 Temp 97.9 Pulse 81 Resp 18 B/P (MAP) 145/73 Pulse Ox 95 O2 Delivery Nasal Cannula O2 Flow Rate 2.00 Capillary Refill : I&O Bad tableGeneral: Alert, Oriented X3, Cooperative, No Acute Distress HEENT: Atraumatic, PERRLA, EOMI, Mucous Memb Moist/[place] Neck: Supple, No JVD Lungs: Clear to Auscultation Heart: Regular Rate Abdomen: Normal Bowel Sounds, Soft, No Tenderness, Other (colostomy functioning ) Extremities: Other (trace edema) Neuro: Normal Speech, Cranial Nerves 3-12 NL Psych/Mental Status: Mental Status NL Results Lab Laboratory Tests 12/22/16 06:15 A/P-Cardiology Admission Diagnosis C. difficile colitis Sepsis CHF PVD Assessment/Plan C. difficile colitis, status post extended left hemicolectomy with Pam procedure, recovering slowly, continue to monitor at this time. Continue on current treatment. Sepsis, improved, continue to monitor. Short of breath, appeared to be better at this time. Reporting improvement. Continue to monitor. Anemia, monitor H&H. Hypokalemia, hypomagnesemia, replaced, continue to monitor Peripheral edema, started back on Lasix. Continue to monitor Congestive heart failure, nonischemic cardiomyopathy, acute on chronic left ventricular systolic dysfunction with most recent ejection fraction improved to 50 percent. Maintained on beta gurpreet and Entresto. Status post anoxic encephalopathy and pneumonia and sepsis early in October, improved with aggressive therapy. Back to his baseline. Continue to monitor. Status post acute renal failure. Improved, monitor renal function closely Peripheral vascular disease with history of nonhealing wounds bilaterally. Peripheral angiogram done 12/04/16 revealed moderate atherosclerotic disease on the left lower extremity, the anterior tibial artery is severely diseased on the left lower extremity but the ulcer on the left lower extremity has healed. Medical therapy is recommended. Moderate disease of the right lower extremity with good flow, with three-vessel flow down to the foot. Continue medical management at this time and continue to monitor. Small infrarenal abdominal aortic aneurysm noted during peripheral angiogram. Continue to monitor Hypertension,controlled. Continue to monitor blood pressure. Hyperlipidemia, continue to hold statin. Hyperthyroidism, history of hypothyroidism and Levothroid, managed by primary care physician History of pulmonary hypertension, continue to monitor History of rheumatoid arthritis. COPD, managed and followed by primary care physician Tobaccoism, patient has stopped smoking after the last admission. Encouraged to continue with smoking cessation History of chronic narcotic use, urine drug screen is positive for opioids Clinical Quality Measures DVT/VTE Risk/Contraindication: Risk Factor Score Per Nursin RFS Level Per Nursing on Admit: 4+=Very High TORY HALL MD Dec 22, 2016 16:40
[2016-12-22 18:00] VITALS: BP 109/71
[2016-12-22] MEDS: ATORVASTATIN 40 MG (LIPITOR) TABLET PO SCH (20:01)
[2016-12-22] MEDS: KCL 10 MEQ TAB (MICRO K) PO SCH (20:02)
[2016-12-23] MEDS: VANCOMYCIN ORAL 250 MG/5 ML 60 ML PO SCH ×10 (00:18→23:26)
[2016-12-23] MEDS: HYDROcodone/APAP 10 MG/325 MG (LORTAB) TAB PO PRN ×3 (01:56→20:27)
[2016-12-23 05:15] VITALS: BP 118/74
[2016-12-23] MEDS: LEVOTHYROXINE 75 MCG (LEVOTHROID) TABLET PO SCH (06:12)
[2016-12-23] MEDS: CALCIUM CARBONATE 600 MG (CALCARB) TAB PO SCH (06:12)
[2016-12-23] MEDS: LEVOTHYROXINE 100 MCG (LEVOTHROID) TAB PO SCH (06:12)
[2016-12-23] MEDS: PANTOPRAZOLE 40 MG (PROTONIX) TAB PO SCH (06:12)
[2016-12-23] MEDS: morphine ER 30 MG (MS CONTIN) TAB PO SCH ×3 (06:13→21:53)
[2016-12-23] MEDS: RT-ALBUTEROL/IPRATROPIUM 3 ML (DUONEB) VIAL INH SCH ×3 (08:53→19:06)
--- NOTE | 2016-12-23 08:58 | Physical Therapy Daily Note ---
PT Daily Note-Current Subjective Patient is very agreeable to participate with PT. Pain Numeric Pain Scale: 5-Moderate Pain Location: Medial Location Body Site: Abdomen Pain Description: Pressure Numeric Pain Scale: 8 (RN made aware to issue pain medication if indicated) Location: Right Location Body Site: Knee Pain Description: Chronic Comment: right knee pain limits patient mobility Mental Status Patient Orientation: Normal For Age Transfers Functional [place] Measure 0=Not Assessed/NA 4=Minimal Assistance 1=Total Assistance 5=Supervision or Setup 2=Maximal Assistance 6=Modified [place] 3=Moderate Assistance 7=Complete IndependenceIRFPAI Quality Coding Scale 6 Independent with activity with or without an assistive device 5 Patient requires set up or clean up by helper. Patient completes activity by themselves 4 Supervision or touching assist (CGA). [place] provide cues , steadying assist 3 The helper provides less than half the effort to complete the activity 2 The helper provides more than half the effort to complete the activity 1 Dependent. The helper does all the effort to complete an activity 7 Patient refused to complete or attempt activity 9 The patient did not perform the activity before the current illness or injury 88 Not attempted due to Medical conditions or safety concerns Transfers (B, C, W/C) (FIM): 4 Scootin Rollin Roll Left to Right (QC): 5 Supine to/from Sit: 5 Sit to/from Stand: 4 Sit to Lying (QC): 5 Sit to Stand (QC): 4 close CGA with gait belt in place for sit to stand transfers Weight Bearing Weight Bearing Restriction: Weight Bearing/Tolerated Location Restriction: LE Bilateral Gait Training Does the Patient Walk?: Yes Gait (FIM): 1 Distance (FIM): 1=up to 49 ft Distance: 20' Walk 10 feet (QC): 4 Gait Level of Assist: 4 Gait Persons Needed: 1 Gait Assistive Device: FWW CGA for safety; patient is limited with right knee pain and arthritic deformity ; patient displays antalgic gait sequence with frequent standing stops due to pain Wheelchair Training Does the Pt Use a Wheelchair?: Yes Wheelchair (FIM): 2 Wheelchair Distance: 4=339-05 ft Distance: 100' x 2 Wheelchair Level of Assist: 5 Wheel 50 ft with 2 turns (QC): 5 Type of Wheelchair: Manual Exercises Supine Ex: Ankle pumps, Quad Set, Heel Slides, Straight leg raise, Hip abd/add Supine Reps: 15 (3 sets) Seated Therapy Exercises: Ankle pumps, Long arc quads Seated Reps: 15 Assessment Patient progressing with treatment and is motivated with progress. Patient is limited with mobility due to RA and right knee arthritic deformity. PT to increase activity as tolerated by patient. PT Short Term Goals Short Term Goals Time Frame: Jan 04, 2017 Transfers (B,C,W/C) (FIM): 4 Gait (FIM): 2 Distance (FIM): 2=766-38 ft Gait Assistive Device: FWW Stairs (FIM): 2 # of Steps: 4 PT Allied Health Teacher Goals Allied Health Teacher Goals PT Allied Health Teacher Goals Time Frame: January 18, 2017 Transfers (B,C,W/C) (FIM): 6 Sit to Lying (QC): 6 Lying-Sitting on Side/Bed(QC): 6 Sit to Stand (QC): 6 Rollin Roll Left to Right (QC): 6 Chair/Smv-ny-Gxpxg Xfer(QC): 6 Car Transfer (QC): 5 Does the Patient Walk: Yes Gait (FIM): 5 Gait distance (FIM): 7=807-98 ft Walk 10 feet (QC): 5 Walk 10ft-Uneven Surface(QC): 5 Walk 50ft with 2 Turns (QC): 5 Walk 150 ft (QC): 88 Gait Assistive Device: FWW Does the Pt use WC or Scooter?: Yes Wheelchair (FIM): 6 Wheelchair distance (FIM): 3=150 ft Wheel 50 feet with 2 turns (QC: 6 Stairs (FIM): 2 # of Steps: 4 1 Step (curb) (QC): 5 4 Steps (QC): 5 12 Steps (QC): 88 Picking up an Object (QC): 88 PT Plan Problem List Problem List: Other (right knee pain due to RA) Treatment/Plan Treatment Plan: Continue Plan of Care Treatment Plan: Bed Mobility, Education, Functional Activity Juli, Functional Strength, Group Therapy, Gait, Safety, Therapeutic Exercise, Transfers Treatment Duration: January 18, 2017 Visits Per Week: 10-15 Minutes/Day (M-F): 60-90 Minutes/Day (Sat/Ferrara): prn Time/GCodes Time In: 750 Time Out: 850 Total Billed Treatment Time: 60 Total Billed Treatment 1 visit GT 15 min EX x 2 30 min WCH 15 min LIZET SARMIENTO PT Dec 23, 2016 08:58
--- NOTE | 2016-12-23 09:37 | Cardiology Progress Note ---
Subjective Subjective/Events-last exam patient is sitting in a chair, feeling better, no chest pain or shortness of breath at this point. Review of Systems General: No Chills, No Night Sweats, No Fatigue, No Malaise, No Appetite, No Other HEENT: No Head Aches, No Visual Changes, No Eye Pain, No Ear Pain, No Dysphasia , No Sinus Congestion, No Post Nasal Drip, No Sore Throat, No Other Pulmonary: No Dyspnea, No Cough, No Pleuritic Chest Pain, No Other Cardiovascular: No: Chest Pain, Edema, Lt Headedness, Orthopnea, Other, Palpitations, Paroxysmal Noc. Dyspnea Objective-Cardiology Exam Last Set of Vital Signs Vital Signs 12/23/16 12/23/16 05:15 08:53 Temp 97.0 Pulse 82 Resp 18 B/P (MAP) 118/74 Pulse Ox 99 O2 Delivery Nasal Cannula O2 Flow Rate 2.00 Capillary Refill : I&O Intake and Output 12/22/16 23:59 Intake Total 1700 ml Output Total 300 ml Balance 1400 ml Intake Oral 1700 ml Stool Total 300 ml # Voids 10 General: Alert, Oriented X3, Cooperative, No Acute Distress HEENT: Atraumatic, PERRLA, EOMI, Mucous Memb Moist/[place] Neck: Supple, No JVD Lungs: Clear to Auscultation Heart: Regular Rate Abdomen: Normal Bowel Sounds, Soft, No Tenderness, Other (colostomy functioning ) Extremities: Other (trace edema) Neuro: Normal Speech, Cranial Nerves 3-12 NL Psych/Mental Status: Mental Status NL Results Lab no labs today A/P-Cardiology Admission Diagnosis C. difficile colitis Sepsis CHF PVD Assessment/Plan C. difficile colitis, status post extended left hemicolectomy with Pam procedure, recovering slowly, continue to monitor at this time. Sepsis, improved, continue to monitor. Short of breath, Reporting improvement. Continue to monitor. Anemia, continue to monitor H&H. Hypokalemia, hypomagnesemia, replaced, I will evaluate metabolic profile and magnesium in a.m. Peripheral edema, started back on Lasix, tolerating it well. Continue to monitor Congestive heart failure, nonischemic cardiomyopathy, acute on chronic left ventricular systolic dysfunction with most recent ejection fraction improved to 50 percent. Maintained on beta gurpreet and Entresto. Status post anoxic encephalopathy and pneumonia and sepsis early in October, improved with aggressive therapy. Back to his baseline. Continue to monitor. Status post acute renal failure. Improved, monitor renal function closely Peripheral vascular disease with history of nonhealing wounds bilaterally. Peripheral angiogram done 12/04/16 revealed moderate atherosclerotic disease on the left lower extremity, the anterior tibial artery is severely diseased on the left lower extremity but the ulcer on the left lower extremity has healed. Medical therapy is recommended. Moderate disease of the right lower extremity with good flow, with three-vessel flow down to the foot. Continue medical management at this time and continue to monitor. Small infrarenal abdominal aortic aneurysm noted during peripheral angiogram. Continue to monitor Hypertension,controlled. Continue to monitor blood pressure. Hyperlipidemia, continue to hold statin. Hyperthyroidism, history of hypothyroidism and Levothroid, managed by primary care physician History of pulmonary hypertension, continue to monitor History of rheumatoid arthritis. COPD, managed and followed by primary care physician Tobaccoism, patient has stopped smoking after the last admission. Encouraged to continue with smoking cessation History of chronic narcotic use, urine drug screen is positive for opioids Clinical Quality Measures DVT/VTE Risk/Contraindication: Risk Factor Score Per Nursin RFS Level Per Nursing on Admit: 4+=Very High TORY HALL MD Dec 23, 2016 09:37
[2016-12-23] MEDS: FUROSEMIDE 20 MG (LASIX) TAB PO SCH (09:45)
[2016-12-23] MEDS: ASPIRIN E.C. 81 MG (ECOTRIN) TAB PO SCH (09:45)
[2016-12-23] MEDS: CARVEDILOL 3.125 MG (COREG) TABLET PO SCH ×2 (09:45→20:26)
[2016-12-23] MEDS: SACUBITRIL/VALSARTAN 24/26 MG (ENTRESTO) TABLET PO SCH ×2 (09:45→20:27)
[2016-12-23] MEDS: KCL 10 MEQ TAB (MICRO K) PO SCH ×2 (09:45→20:26)
[2016-12-23] MEDS: metroNIDAZOLE 500 MG (FLAGYL) TAB PO SCH ×3 (09:45→20:27)
[2016-12-23] MEDS: ONDANSETRON 4 MG/2 ML (SDV) Z0FRAN IV PRN (09:53)
[2016-12-23] MEDS: CATHETER FLUSH 10 ML SYR IV PRN ×2 (09:53→20:26)
--- NOTE | 2016-12-23 10:19 | Progress Note-Hospitalist ---
Progress Note Progress Notes/Assess & Plan Date Seen 12/23/16 Diagonsis/Assessment & Plan Patient Interview: Pt states he is doing fine. Physical exam was stable. Pt states he feels like he needs to rest. Scribed by Tereso Guerrero under the direct supervision of Dr. Urbano. 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 difficile colitis Overall debility requiring jail placement just discharged Plan: Potassium supp Pain meds Monitor closely C diff tx prognosis very guarded OCTAVIO URBANO DO Dec 23, 2016 10:19
--- NOTE | 2016-12-23 12:11 | Occupational Ther Daily Note ---
OT Current Status-Daily Note Subjective Pt sitting in w/c, states he is getting tired, but agrees to treatment. Pt reports 8/10 pain. Mental Status/Objective Functional [place] Measure 0=Not Assessed/NA 4=Minimal Assistance 1=Total Assistance 5=Supervision or Setup 2=Maximal Assistance 6=Modified [place] 3=Moderate Assistance 7=Complete [place] ADL-Treatment Pt declined bathing or dressing today, states he wants to do his exercises. Pt did comb hair with minimal assistance secondary to unable to fully reach back. Pt washed face with set up and increased time. Functional [place] Measure 0=Not Assessed/NA 4=Minimal Assistance 1=Total Assistance 5=Supervision or Setup 2=Maximal Assistance 6=Modified [place] 3=Moderate Assistance 7=Complete IndependenceIRFPAI Quality Coding Scale 6 Independent with activity with or without an assistive device 5 Patient requires set up or clean up by helper. Patient completes activity by themselves 4 Supervision or touching assist (CGA). [place] provide cues , steadying assist 3 The helper provides less than half the effort to complete the activity 2 The helper provides more than half the effort to complete the activity 1 Dependent. The helper does all the effort to complete an activity 7 Patient refused to complete or attempt activity 9 The patient did not perform the activity before the current illness or injury 88 Not attempted due to Medical conditions or safety concerns Grooming (FIM): 4 Other Treatment Pt completed bilateral hand plant security guard exercises x20 reps with minimal resistance therapy foam to increase plant security guard strength. Pt performed three bilateral UE exercises x20 reps with moderate resistance (red) theraband to increase overall strength needed for ADLs and transfers. Pt fatigues with activity and requires rest breaks between exercises. Pt completed biceps curls x20 reps with 2# weight. Pt performed sit to stand x3 reps with min to mod assistance to increase strength for transfers. Pt requires cues for hand placement and safety. Rest breaks between trials secondary to fatigue.Transfer w/c to EOB with moderate assistance and skilled cues for FWW use and safety. Sit to supine with assist for LE. Pt in bed with needs met after session. OT Short Term Goals Short Term Goals Time Frame: Jan 04, 2017 Eating(FIM): 5 Grooming(FIM): 5 Bathing(FIM): 4 Upper Body Dressing(FIM): 4 Lower Body Dressing(FIM): 4 Toileting(FIM): 4 Transfers (B,C,W/C) (FIM): 4 Toilet/Commode Transfer(FIM): 5 Shower Transfer(FIM): 5 Additional Short Term Goals: 1-Demonstrate ADL Tasks, 2-Verbalize Understanding , 3-ImproveStrength/Juli 1=Demonstrate adherence to instructed precautions during ADL tasks. 2=Patient will verbalize/demonstrate understanding of assistive devices/ modifications for ADL. 3=Patient will improve strength/tolerance for activity to enable patient to perform ADL's. OT Eyedotter Goals Detention Goals Time Frame: January 18, 2017 Eating (FIM): 6 Eating (QC): 6 Groomin Oral Hygiene (QC): 6 Bathing(FIM): 5 Shower/Bathe Self (QC): 5 Upper Body Dressing(FIM): 6 Upper Body Dressing (QC): 6 Lower Body Dressing(FIM): 6 Lower Body Dressing (QC): 6 On/Off Footwear (QC): 6 Toileting(FIM): 6 Toileting Hygiene (QC): 6 Transfers (B,C,W/C) (FIM): 6 Toilet/Commode Transfer(FIM): 6 Toilet/Commode Transfer (QC): 6 Shower Transfer(FIM): 5 Additional Goals: 1-Demonstrate ADL Tasks, 2-Verbalize Understanding, 3- ImproveStrength/Juli 1=Demonstrate adherence to instructed precautions during ADL tasks. 2=Patient will verbalize/demonstrate understanding of assistive devices/ modifications for ADL. 3=Patient will improve strength/tolerance for activity to enable patient to perform ADL's. OT Education/Plan Discharge Recommendations Plan/Recommendations: Continue POC Treatment Plan/Plan of Care Patient would benefit from OT for education, treatment and training to promote independence in ADL's, mobility, safety and/or upper extremity function for ADL' s. Plan of Care: ADL Retraining, Caregiver Training, Functional Mobility, Group Exercise/Act as Ind, UE Funct Exercise/Act Treatment Duration: January 18, 2017 Visits Per Week: 10-12 Minutes/Day (M-F): 60-90 Minutes/Day (Sat/Ferrara): prn Agreement: Yes Rehab Potential: Fair Time/GCodes Start Time: 10:00 Stop Time: 11:00 Total Time Billed (hr/min): 60 Billed Treatment Time 1 visit, ADL(10minutes), EXx2(30minutes), FA(20minutes) MELISSA AMBROSIO OT Dec 23, 2016 12:11
[2016-12-23] MEDS: ENOXAPARIN 40 MG/0.4 ML (LOVENOX) SYR SC SCH (14:11)
--- NOTE | 2016-12-23 14:50 | Therapy Group Daily Note ---
Therapy Daily Group Note Patient Education Topic Other List Below (community safety and scam awareness) Other/Notes Pt. attended group PT OT session this date. Pt. required mod to max assist of 1 -2 bed to w/c to bed etc. Pt. c/o discomfort and was restless during group. Pt. did introduce himself and participated somewhat. Pts. interacted introducing selves and sharing their experiences with potential scams ie phone or door to door or on line. Local PD guest speaker Bonilla English explained frequently seen scams as well as services offered by PD. PD will do wellness checks and welcome calls if something is suspicious in a neighborhood. Start Time: 13:00 Stop Time: 14:15 Total Billed Treatment Time: 75 Total Billed Treatment 1,GRP ANAHI SEWELL INSURANCE ACCOUNT MANAGER Dec 23, 2016 14:50
[2016-12-23 17:16] VITALS: BP 109/52
[2016-12-23] MEDS: ATORVASTATIN 40 MG (LIPITOR) TABLET PO SCH (20:26)
[2016-12-24 05:21] VITALS: BP 108/67
[2016-12-24] MEDS: HYDROcodone/APAP 10 MG/325 MG (LORTAB) TAB PO PRN ×3 (05:25→17:49)
[2016-12-24] MEDS: VANCOMYCIN ORAL 250 MG/5 ML 60 ML PO SCH ×6 (05:25→17:37)
[2016-12-24] MEDS: CALCIUM CARBONATE 600 MG (CALCARB) TAB PO SCH (06:28)
[2016-12-24] MEDS: morphine ER 30 MG (MS CONTIN) TAB PO SCH ×3 (06:29→21:26)
[2016-12-24] MEDS: PANTOPRAZOLE 40 MG (PROTONIX) TAB PO SCH (06:29)
[2016-12-24] MEDS: LEVOTHYROXINE 100 MCG (LEVOTHROID) TAB PO SCH (06:29)
[2016-12-24] MEDS: LEVOTHYROXINE 75 MCG (LEVOTHROID) TABLET PO SCH (06:29)
[2016-12-24 06:44] LABS: MEAN PLATELET VOLUME 9.6 FL (7.4-10.4); RED BLOOD COUNT 3.29 10^6/uL (4.35-5.85); RED CELL DISTRIBUTION WIDTH 19.6 % (10.0-14.5)
[2016-12-24 06:59] LABS: ANION GAP 10 MMOL/L (5-14); BLOOD UREA NITROGEN 3 MG/DL (7-18); BUN/CREATININE RATIO 4; CARBON DIOXIDE 24 MMOL/L (21-32); CHLORIDE 106 MMOL/L (98-107); CREATININE SERUM 0.72 MG/DL (0.60-1.30); GFR ESTIMATED > 60; GLUCOSE 108 MG/DL (70-105); MAGNESIUM 1.3 MG/DL (1.8-2.4); POTASSIUM 3.4 MMOL/L (3.6-5.0); SODIUM 140 MMOL/L (135-145)
[2016-12-24] MEDS: RT-ALBUTEROL/IPRATROPIUM 3 ML (DUONEB) VIAL INH SCH ×3 (07:32→19:35)
--- NOTE | 2016-12-24 08:34 | Progress Note ---
Subjective Subjective/Events-last exam Feeling well. No complaints. Ostomy functioning. Objective Exam Vital Signs Date Time Temp Pulse Resp B/P (MAP) Pulse Ox O2 Delivery O2 Flow Rate FiO2 12/24/16 07:36 91 2.00 12/24/16 05:21 97.7 80 18 108/67 94 Nasal Cannula 2.00 12/23/16 21:26 Nasal Cannula 2.00 12/23/16 19:06 94 12/23/16 17:16 98.6 63 22 109/52 94 Nasal Cannula 2.00 12/23/16 14:55 97.0 12/23/16 14:25 94 12/23/16 11:50 97.0 12/23/16 11:16 97.0 12/23/16 09:00 Nasal Cannula 2.00 12/23/16 08:53 99 I & O 12/24/16 07:00 Intake Total 1180 ml Output Total 200 ml Balance 980 ml Capillary Refill : General Appearance: No Apparent Distress Neck: Supple Respiratory: No Respiratory Distress Cardiovascular: Regular Rate, Rhythm Gastrointestinal: soft (slight erythema at анна, ostomy edematous pink and productive of gas and stool) Extremity: Non Tender Neurologic/Psychiatric: Alert, Oriented x3 Skin: Warm/Dry Results Lab Laboratory Tests 12/24/16 06:00: White Blood Count 19.0H, Red Blood Count 3.29L, Hemoglobin 8.8L, Hematocrit 29L , Mean Corpuscular Volume 87, Mean Corpuscular Hemoglobin 27, Mean Corpuscular Hemoglobin Concent 31L, Red Cell Distribution Width 19.6H, Platelet Count 431H, Mean Platelet Volume 9.6, Sodium Level 140, Potassium Level 3.4L, Chloride Level 106, Carbon Dioxide Level 24, Anion Gap 10, Blood Urea Nitrogen 3L, Creatinine 0.72, Estimat Glomerular Filtration Rate > 60, BUN/Creatinine Ratio 4 , Glucose Level 108H, Calcium Level 7.0L, Magnesium Level 1.3L Assessment/Plan Assessment/Plan Assessment/Plan general debil s/p sepsis secondary to Pseudomembranous colitis s/p colectomy and diverting colostomy Copd Gerd HTN Hypokalemia-replace Hypomagnesemia- replace DVT prophylaxis-on Lovenox Subcut recheck bmp/magnesium in am continue current management Clinical Quality Measures DVT/VTE Risk/Contraindication: Risk Factor Score Per Nursin RFS Level Per Nursing on Admit: 4+=Very High ROHIT SQUIRES DO Dec 24, 2016 08:34
[2016-12-24] MEDS: metroNIDAZOLE 500 MG (FLAGYL) TAB PO SCH ×3 (08:37→21:25)
[2016-12-24] MEDS: FUROSEMIDE 20 MG (LASIX) TAB PO SCH (08:37)
[2016-12-24] MEDS: ASPIRIN E.C. 81 MG (ECOTRIN) TAB PO SCH (08:37)
[2016-12-24] MEDS: SACUBITRIL/VALSARTAN 24/26 MG (ENTRESTO) TABLET PO SCH ×2 (08:37→21:25)
[2016-12-24] MEDS: KCL 10 MEQ TAB (MICRO K) PO SCH ×2 (08:37→21:25)
[2016-12-24] MEDS: CARVEDILOL 3.125 MG (COREG) TABLET PO SCH ×2 (08:37→21:25)
[2016-12-24] MEDS ORDERED: MAGNESIUM 1 GM/100 ML IVPB 100 ML IV NR (08:45)
[2016-12-24] MEDS: CATHETER FLUSH 10 ML SYR IV PRN (09:39)
--- NOTE | 2016-12-24 10:06 | Physical Therapy Daily Note ---
PT Daily Note-Current Subjective Pt supine in bed with head raised upon arrival. Pt reports pain of 8/10 at rest but has already had pain med per nursing. Pt agrees to PT. Pain Numeric Pain Scale: 8 Location: Incisional Location Body Site: Abdomen Pain Description: Ache Mental Status Patient Orientation: Person, Place, Time, Situation Attachments: Oxygen, Other-See Comments (Knee brace for R knee) Transfers Functional [place] Measure 0=Not Assessed/NA 4=Minimal Assistance 1=Total Assistance 5=Supervision or Setup 2=Maximal Assistance 6=Modified [place] 3=Moderate Assistance 7=Complete IndependenceIRFPAI Quality Coding Scale 6 Independent with activity with or without an assistive device 5 Patient requires set up or clean up by helper. Patient completes activity by themselves 4 Supervision or touching assist (CGA). [place] provide cues , steadying assist 3 The helper provides less than half the effort to complete the activity 2 The helper provides more than half the effort to complete the activity 1 Dependent. The helper does all the effort to complete an activity 7 Patient refused to complete or attempt activity 9 The patient did not perform the activity before the current illness or injury 88 Not attempted due to Medical conditions or safety concerns Transfers (B, C, W/C) (FIM): 3 Scootin Rollin Roll Left to Right (QC): 4 Supine to/from Sit: 3 Sit to/from Stand: 3 Sit to Lying (QC): 3 Sit to Stand (QC): 3 Weight Bearing Weight Bearing Restriction: Full Weight Bearing Location Restriction: LE Bilateral Gait Training Does the Patient Walk?: Yes Distance (FIM): 1=up to 49 ft Distance: 10' Walk 10 feet (QC): 4 Gait Level of Assist: 4 Gait Persons Needed: 1 Gait Assistive Device: FWW Pt is ambulating better but gait is slow. Pt reports pain in R knee with walking so attempted walking with knee brace. Treatments Pt transferred from supine to EOB and sat for a couple of minutes before transferring from EOB to standing using FWW at Min-Mod A. Pt then stands while nursing checks backside for bed sores and puts cream on shailesh area. Pt then returns back to bed, transferring from standing to EOB at Min-Mod A for controlled sitting. Pt then transfers from EOB to supine at Mod-Max for assisting lifting legs back to bed. Pt is left in bed with head raised and all needs met at end of tx. Assessment Current Status: Good Progress Pt is standing longer and more independent with transfers and gait than pt has been. Although, pt's R knee starts to bother pt after short time and tries to buckle on way back to bed due to fatigue. PT Short Term Goals Short Term Goals Time Frame: Jan 04, 2017 Transfers (B,C,W/C) (FIM): 4 Gait (FIM): 2 Distance (FIM): 4=029-99 ft Gait Assistive Device: FWW Wheelchair Distance: 100' x 2 Stairs (FIM): 2 # of Steps: 4 PT Long-Term Goals Long-Term Goals PT Long-Term Goals Time Frame: January 18, 2017 Transfers (B,C,W/C) (FIM): 6 Sit to Lying (QC): 6 Lying-Sitting on Side/Bed(QC): 6 Sit to Stand (QC): 6 Rollin Roll Left to Right (QC): 6 Chair/Vxd-bu-Fbrgg Xfer(QC): 6 Car Transfer (QC): 5 Does the Patient Walk: Yes Gait (FIM): 5 Gait distance (FIM): 9=483-55 ft Walk 10 feet (QC): 5 Walk 10ft-Uneven Surface(QC): 5 Walk 50ft with 2 Turns (QC): 5 Walk 150 ft (QC): 88 Gait Assistive Device: FWW Does the Pt use WC or Scooter?: Yes Wheelchair (FIM): 6 Wheelchair distance (FIM): 3=150 ft Wheel 50 feet with 2 turns (QC: 6 Stairs (FIM): 2 # of Steps: 4 1 Step (curb) (QC): 5 4 Steps (QC): 5 12 Steps (QC): 88 Picking up an Object (QC): 88 PT Plan Problem List Problem List: Activity Tolerance, Functional Strength, Safety, Balance, Gait, Transfer, Bed Mobility Treatment/Plan Treatment Plan: Continue Plan of Care Treatment Plan: Bed Mobility, Education, Functional Activity Juli, Functional Strength, Group Therapy, Gait, Safety, Therapeutic Exercise, Transfers Treatment Duration: January 18, 2017 Visits Per Week: 10-15 Minutes/Day (M-F): 60-90 Minutes/Day (Sat/Ferrara): prn Safety Risks/Education Patient Education: Gait Training, Transfer Techniques, Correct Positioning, Reviewed Don/Doff Brace, Safety Issues Teaching Recipient: Patient Teaching Methods: Discussion Response to Teaching: Verbalize Understanding Time/GCodes Time In: 830 Time Out: 900 Total Billed Treatment Time: 30 Total Billed Treatment visit, FA X2 (30m) JEFFREY COOK BARREL HEADER Dec 24, 2016 10:06
[2016-12-24] MEDS ORDERED: NS IV 500 ML 500 ML IV SCH (10:45)
[2016-12-24] MEDS: POTASSIUM CL 10MEQ/50ML IVPB 50 ML IV SCH ×2 (11:24→11:26)
[2016-12-24] MEDS: ENOXAPARIN 40 MG/0.4 ML (LOVENOX) SYR SC SCH (15:12)
[2016-12-24 18:00] VITALS: BP 104/68
[2016-12-24] MEDS: ATORVASTATIN 40 MG (LIPITOR) TABLET PO SCH (21:25)
[2016-12-25] MEDS: VANCOMYCIN ORAL 250 MG/5 ML 60 ML PO SCH ×10 (00:18→23:12)
[2016-12-25] MEDS: HYDROcodone/APAP 10 MG/325 MG (LORTAB) TAB PO PRN ×3 (03:51→19:04)
[2016-12-25 06:00] VITALS: BP 110/73
[2016-12-25] MEDS: CALCIUM CARBONATE 600 MG (CALCARB) TAB PO SCH (06:59)
[2016-12-25] MEDS: PANTOPRAZOLE 40 MG (PROTONIX) TAB PO SCH (06:59)
[2016-12-25] MEDS: LEVOTHYROXINE 75 MCG (LEVOTHROID) TABLET PO SCH (06:59)
[2016-12-25] MEDS: morphine ER 30 MG (MS CONTIN) TAB PO SCH ×3 (07:00→21:20)
[2016-12-25] MEDS: LEVOTHYROXINE 100 MCG (LEVOTHROID) TAB PO SCH (07:00)
[2016-12-25] MEDS: RT-ALBUTEROL/IPRATROPIUM 3 ML (DUONEB) VIAL INH SCH ×3 (07:27→20:10)
[2016-12-25 07:34] LABS: ANION GAP 5 MMOL/L (5-14); BLOOD UREA NITROGEN 3 MG/DL (7-18); BUN/CREATININE RATIO 4; CALCIUM 7.5 MG/DL (8.5-10.1); CARBON DIOXIDE 29 MMOL/L (21-32); CHLORIDE 105 MMOL/L (98-107); GFR ESTIMATED > 60; GLUCOSE 83 MG/DL (70-105); MAGNESIUM 1.4 MG/DL (1.8-2.4); POTASSIUM 3.8 MMOL/L (3.6-5.0); SODIUM 139 MMOL/L (135-145)
[2016-12-25] MEDS: FUROSEMIDE 20 MG (LASIX) TAB PO SCH (08:56)
[2016-12-25] MEDS: SACUBITRIL/VALSARTAN 24/26 MG (ENTRESTO) TABLET PO SCH ×2 (08:56→21:20)
[2016-12-25] MEDS: KCL 10 MEQ TAB (MICRO K) PO SCH ×2 (08:56→21:20)
[2016-12-25] MEDS: ASPIRIN E.C. 81 MG (ECOTRIN) TAB PO SCH (08:56)
[2016-12-25] MEDS: CARVEDILOL 3.125 MG (COREG) TABLET PO SCH ×2 (08:56→21:20)
[2016-12-25] MEDS: metroNIDAZOLE 500 MG (FLAGYL) TAB PO SCH ×3 (08:56→21:20)
--- NOTE | 2016-12-25 10:39 | Progress Note ---
Subjective Subjective/Events-last exam Patient with some clear drainage from midline. Ostomy functioning. Pain controlled. No other complaints. Objective Exam Vital Signs Date Time Temp Pulse Resp B/P (MAP) Pulse Ox O2 Delivery O2 Flow Rate FiO2 12/25/16 07:28 96 2.00 12/25/16 07:00 97.0 12/25/16 06:00 97.7 77 18 110/73 97 Nasal Cannula 12/25/16 04:21 97.0 12/25/16 03:51 97.0 12/24/16 21:56 97.0 12/24/16 21:26 97.0 12/24/16 21:00 Nasal Cannula 2.00 12/24/16 19:35 96 2.00 12/24/16 18:00 96.0 82 20 104/68 98 Nasal Cannula 2.00 12/24/16 16:13 91 2.00 I & O 12/25/16 07:00 Intake Total 2180 ml Output Total 2300 ml Balance -120 ml Capillary Refill : General Appearance: No Apparent Distress Neck: Supple Respiratory: No Respiratory Distress Cardiovascular: Regular Rate, Rhythm Gastrointestinal: soft (slight erythema at анна, ostomy edematous pink and productive of gas and stool, serous drainage from midline) Extremity: Non Tender Neurologic/Psychiatric: Alert, Oriented x3 Skin: Warm/Dry Results Lab Laboratory Tests 12/25/16 07:00: Sodium Level 139, Potassium Level 3.8, Chloride Level 105, Carbon Dioxide Level 29, Anion Gap 5, Blood Urea Nitrogen 3L, Creatinine 0.70, Estimat Glomerular Filtration Rate > 60, BUN/Creatinine Ratio 4, Glucose Level 83, Calcium Level 7.5L, Magnesium Level 1.4L Assessment/Plan Assessment/Plan Assessment/Plan 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
[2016-12-25] MEDS: MAGNESIUM 1 GM/100 ML IVPB 100 ML IV SCH ×2 (10:44→11:51)
[2016-12-25] MEDS: ENOXAPARIN 40 MG/0.4 ML (LOVENOX) SYR SC SCH (14:21)
[2016-12-25] MEDS: MAGNESIUM OXIDE (MAG-OX)400 MG TAB PO SCH (18:37)
[2016-12-25 18:39] VITALS: BP 116/65
[2016-12-25] MEDS: ATORVASTATIN 40 MG (LIPITOR) TABLET PO SCH (21:20)
[2016-12-25] MEDS: CATHETER FLUSH 10 ML SYR IV PRN (21:29)
[2016-12-26] MEDS: HYDROcodone/APAP 10 MG/325 MG (LORTAB) TAB PO PRN ×4 (01:02→19:18)
[2016-12-26 05:27] VITALS: BP 111/67
[2016-12-26] MEDS: CATHETER FLUSH 10 ML SYR IV PRN ×2 (05:56→20:15)
[2016-12-26] MEDS: VANCOMYCIN ORAL 250 MG/5 ML 60 ML PO SCH ×6 (05:56→18:41)
[2016-12-26] MEDS: morphine ER 30 MG (MS CONTIN) TAB PO SCH ×3 (05:56→21:06)
[2016-12-26] MEDS: LEVOTHYROXINE 100 MCG (LEVOTHROID) TAB PO SCH (05:57)
[2016-12-26] MEDS: PANTOPRAZOLE 40 MG (PROTONIX) TAB PO SCH (05:57)
[2016-12-26] MEDS: LEVOTHYROXINE 75 MCG (LEVOTHROID) TABLET PO SCH (05:57)
[2016-12-26] MEDS: CALCIUM CARBONATE 600 MG (CALCARB) TAB PO SCH (05:57)
[2016-12-26 06:28] LABS: MEAN PLATELET VOLUME 9.8 FL (7.4-10.4); RED BLOOD COUNT 3.1 10^6/uL (4.35-5.85); RED CELL DISTRIBUTION WIDTH 19.9 % (10.0-14.5); WHITE BLOOD COUNT 15.4 10^3/uL (4.3-11.0)
[2016-12-26 06:48] LABS: ANION GAP 5 MMOL/L (5-14); BLOOD UREA NITROGEN 3 MG/DL (7-18); CARBON DIOXIDE 31 MMOL/L (21-32); CHLORIDE 105 MMOL/L (98-107); POTASSIUM 3.7 MMOL/L (3.6-5.0); SODIUM 141 MMOL/L (135-145)
[2016-12-26 06:49] LABS: BUN/CREATININE RATIO 4; CALCIUM 7.2 MG/DL (8.5-10.1); GFR ESTIMATED > 60; GLUCOSE 73 MG/DL (70-105); MAGNESIUM 1.5 MG/DL (1.8-2.4)
[2016-12-26] MEDS: RT-ALBUTEROL/IPRATROPIUM 3 ML (DUONEB) VIAL INH SCH ×3 (07:23→22:11)
[2016-12-26] MEDS: ASPIRIN E.C. 81 MG (ECOTRIN) TAB PO SCH (08:01)
[2016-12-26] MEDS: metroNIDAZOLE 500 MG (FLAGYL) TAB PO SCH ×3 (08:01→20:14)
[2016-12-26] MEDS: CARVEDILOL 3.125 MG (COREG) TABLET PO SCH ×2 (08:01→20:14)
[2016-12-26] MEDS: FUROSEMIDE 20 MG (LASIX) TAB PO SCH (08:01)
[2016-12-26] MEDS: MAGNESIUM OXIDE (MAG-OX)400 MG TAB PO SCH ×2 (08:01→18:41)
[2016-12-26] MEDS: SACUBITRIL/VALSARTAN 24/26 MG (ENTRESTO) TABLET PO SCH ×2 (08:01→20:14)
[2016-12-26] MEDS: KCL 10 MEQ TAB (MICRO K) PO SCH ×2 (08:01→20:14)
--- NOTE | 2016-12-26 08:33 | Cardiology Progress Note ---
Subjective Subjective/Events-last exam Patient in bed. Complaining of clear drainage from abdominal incision. Denies any CP or dyspnea. Denies any fever or chills. Review of Systems General: No Night Sweats, No Fatigue, No Malaise HEENT: No Visual Changes, No Dysphasia Pulmonary: No Dyspnea, No Cough Cardiovascular: No: Chest Pain, Edema, Palpitations, Paroxysmal Noc. Dyspnea Gastrointestinal: No: Abdominal Pain, Nausea, Vomiting Genitourinary: No Dysuria, No Frequency Musculoskeletal: No: back pain, neck pain Neurological: Weakness, No: Change in speech, Confusion, Numbness Objective-Cardiology Exam Last Set of Vital Signs Vital Signs 12/26/16 12/26/16 05:27 07:23 Temp 97.5 Pulse 79 Resp 18 B/P (MAP) 111/67 Pulse Ox 92 O2 Delivery Nasal Cannula O2 Flow Rate 2.00 Capillary Refill : I&O Intake and Output 12/26/16 00:00 Intake Total 1920 ml Output Total 2225 ml Balance -305 ml Intake Oral 1920 ml Output Urine Total 2100 ml Stool Total 125 ml General: Alert, Oriented X3, Cooperative, No Acute Distress HEENT: Atraumatic, PERRLA, EOMI, Mucous Memb Moist/[place] Neck: Supple, No JVD Lungs: Clear to Auscultation Heart: Regular Rate Abdomen: Normal Bowel Sounds, Soft, No Tenderness, Other (colostomy functioning ) Extremities: Other (trace edema) Neuro: Normal Speech, Cranial Nerves 3-12 NL Psych/Mental Status: Mental Status NL Results Lab Laboratory Tests 12/26/16 06:00 A/P-Cardiology Admission Diagnosis C. difficile colitis Sepsis CHF PVD Assessment/Plan C. difficile colitis, status post extended left hemicolectomy with Pam procedure, recovering slowly, continue to monitor at this time. Sepsis, improved, continue to monitor. Short of breath, Reporting improvement. Continue to monitor. Anemia, continue to monitor H&H. Hypokalemia, hypomagnesemia, replaced, continue to monitor. Peripheral edema, started back on Lasix, tolerating it well. Continue to monitor Congestive heart failure, nonischemic cardiomyopathy, acute on chronic left ventricular systolic dysfunction with most recent ejection fraction improved to 50 percent. Maintained on beta gurpreet and Entresto. Status post anoxic encephalopathy and pneumonia and sepsis early in October, improved with aggressive therapy. Back to his baseline. Continue to monitor. Status post acute renal failure. Improved, monitor renal function closely Peripheral vascular disease with history of nonhealing wounds bilaterally. Peripheral angiogram done 12/04/16 revealed moderate atherosclerotic disease on the left lower extremity, the anterior tibial artery is severely diseased on the left lower extremity but the ulcer on the left lower extremity has healed. Medical therapy is recommended. Moderate disease of the right lower extremity with good flow, with three-vessel flow down to the foot. Continue medical management at this time and continue to monitor. Small infrarenal abdominal aortic aneurysm noted during peripheral angiogram. Continue to monitor Hypertension,controlled. Continue to monitor blood pressure. Hyperlipidemia, continue to hold statin. Hyperthyroidism, history of hypothyroidism and Levothroid, managed by primary care physician History of pulmonary hypertension, continue to monitor History of rheumatoid arthritis. COPD, managed and followed by primary care physician Tobaccoism, patient has stopped smoking after the last admission. Encouraged to continue with smoking cessation History of chronic narcotic use, urine drug screen is positive for opioids Clinical Quality Measures DVT/VTE Risk/Contraindication: Risk Factor Score Per Nursin RFS Level Per Nursing on Admit: 4+=Very High FATUMA GARCES Dec 26, 2016 08:33
--- NOTE | 2016-12-26 09:11 | Physical Therapy Daily Note ---
PT Daily Note-Current Subjective Patient reports his incision is "leaking". Per RN, a cyst opened and is draining. Patient rates abdominal pain 9/10 after pain medication issued. Pain Numeric Pain Scale: 9 Location: Medial Location Body Site: Abdomen Pain Description: Pressure, Sharp Mental Status Patient Orientation: Normal For Age Transfers Functional [place] Measure 0=Not Assessed/NA 4=Minimal Assistance 1=Total Assistance 5=Supervision or Setup 2=Maximal Assistance 6=Modified [place] 3=Moderate Assistance 7=Complete IndependenceIRFPAI Quality Coding Scale 6 Independent with activity with or without an assistive device 5 Patient requires set up or clean up by helper. Patient completes activity by themselves 4 Supervision or touching assist (CGA). [place] provide cues , steadying assist 3 The helper provides less than half the effort to complete the activity 2 The helper provides more than half the effort to complete the activity 1 Dependent. The helper does all the effort to complete an activity 7 Patient refused to complete or attempt activity 9 The patient did not perform the activity before the current illness or injury 88 Not attempted due to Medical conditions or safety concerns Transfers (B, C, W/C) (FIM): 4 Scootin Rollin Roll Left to Right (QC): 4 Supine to/from Sit: 4 Sit to/from Stand: 4 Sit to Lying (QC): 4 Sit to Stand (QC): 4 Chair/Oxx-oc-Gicqw Xfer(QC): 4 Bed to/from Chair: 4 Due to abdominal pain, patient required minimal assist with mobility on this date Gait Training Does the Patient Walk?: Yes Gait (FIM): 1 Distance (FIM): 1=up to 49 ft Distance: 5' Gait Level of Assist: 4 Gait Persons Needed: 1 Gait Assistive Device: FWW patient attempted to ambulate, however, abdominal pain limited patient on this date Wheelchair Training Does the Pt Use a Wheelchair?: Yes Wheelchair (FIM): 3 Wheelchair Distance: 3=150 ft Distance: 150' Wheelchair Level of Assist: 4 Wheel 50 ft with 2 turns (QC): 4 Wheel 150 ft (QC): 4 Type of Wheelchair: Manual Exercises Supine Ex: Ankle pumps, Quad Set, Glut sets, Heel Slides, Straight leg raise, Hip abd/add Supine Reps: 25 (AROM bilaterally) Seated Therapy Exercises: Ankle pumps, Long arc quads Seated Reps: 25 (bilaterally) Assessment Patient requires time to complete all functional tasks due to abdominal pain. Patient is limited with functional mobility on this date due to pain. PT to increase activity as tolerated by patient. Physicians are aware of patients abdominal wound and pain per RN. PT Short Term Goals Short Term Goals Time Frame: Jan 04, 2017 Transfers (B,C,W/C) (FIM): 4 Gait (FIM): 2 Distance (FIM): 7=540-13 ft Gait Assistive Device: FWW Wheelchair Distance: 100' x 2 Stairs (FIM): 2 # of Steps: 4 PT Prison Goals Prison Goals PT Prison Goals Time Frame: January 18, 2017 Transfers (B,C,W/C) (FIM): 6 Sit to Lying (QC): 6 Lying-Sitting on Side/Bed(QC): 6 Sit to Stand (QC): 6 Rollin Roll Left to Right (QC): 6 Chair/Njt-ne-Jlcyw Xfer(QC): 6 Car Transfer (QC): 5 Does the Patient Walk: Yes Gait (FIM): 5 Gait distance (FIM): 8=960-91 ft Walk 10 feet (QC): 5 Walk 10ft-Uneven Surface(QC): 5 Walk 50ft with 2 Turns (QC): 5 Walk 150 ft (QC): 88 Gait Assistive Device: FWW Does the Pt use WC or Scooter?: Yes Wheelchair (FIM): 6 Wheelchair distance (FIM): 3=150 ft Wheel 50 feet with 2 turns (QC: 6 Stairs (FIM): 2 # of Steps: 4 1 Step (curb) (QC): 5 4 Steps (QC): 5 12 Steps (QC): 88 Picking up an Object (QC): 88 PT Plan Treatment/Plan Treatment Plan: Continue Plan of Care Treatment Plan: Bed Mobility, Education, Functional Activity Juli, Functional Strength, Group Therapy, Gait, Safety, Therapeutic Exercise, Transfers Treatment Duration: January 18, 2017 Visits Per Week: 10-15 Minutes/Day (M-F): 60-90 Minutes/Day (Sat/Ferrara): prn Time/GCodes Time In: 800 Time Out: 900 Total Billed Treatment Time: 60 Total Billed Treatment 1 visit EX x 2 30 FA 15 min WCH 15 min LIZET SARMIENTO PT Dec 26, 2016 09:11
--- NOTE | 2016-12-26 12:00 | Cardiology Progress Note ---
Subjective Subjective/Events-last exam Patient is in bed, having some abdominal pain, no chest pain Review of Systems General: No Chills, No Night Sweats, No Fatigue, No Malaise, No Appetite, No Other HEENT: No Head Aches, No Visual Changes, No Eye Pain, No Ear Pain, No Dysphasia , No Sinus Congestion, No Post Nasal Drip, No Sore Throat, No Other Pulmonary: No Dyspnea, No Cough, No Pleuritic Chest Pain, No Other Cardiovascular: No: Chest Pain, Edema, Lt Headedness, Orthopnea, Other, Palpitations, Paroxysmal Noc. Dyspnea Objective-Cardiology Exam Last Set of Vital Signs Vital Signs 12/26/16 12/26/16 12/26/16 05:27 07:23 09:00 Temp 97.5 Pulse 79 Resp 18 B/P (MAP) 111/67 Pulse Ox 92 O2 Delivery Nasal Cannula O2 Flow Rate 2.00 Capillary Refill : I&O Intake and Output 12/26/16 00:00 Intake Total 1920 ml Output Total 2225 ml Balance -305 ml Intake Oral 1920 ml Output Urine Total 2100 ml Stool Total 125 ml General: Alert, Oriented X3, Cooperative, No Acute Distress HEENT: Atraumatic, PERRLA, EOMI, Mucous Memb Moist/[place] Neck: Supple, No JVD Lungs: Clear to Auscultation Heart: Regular Rate Abdomen: Normal Bowel Sounds, Soft, No Tenderness, Other (colostomy functioning ) Extremities: Other (trace edema) Neuro: Normal Speech, Cranial Nerves 3-12 NL Psych/Mental Status: Mental Status NL Results Lab Laboratory Tests 12/26/16 06:00 A/P-Cardiology Admission Diagnosis C. difficile colitis Sepsis CHF PVD Assessment/Plan C. difficile colitis, status post extended left hemicolectomy with Pam procedure, recovering slowly, continue to monitor at this time. Sepsis, improved, continue to monitor. Short of breath, Reporting improvement. Continue to monitor. Anemia, continue to monitor H&H. Hypokalemia, hypomagnesemia, replaced, continue to monitor. Peripheral edema, started back on Lasix, tolerating it well. Continue to monitor Congestive heart failure, nonischemic cardiomyopathy, acute on chronic left ventricular systolic dysfunction with most recent ejection fraction improved to 50 percent. Maintained on beta gurpreet and Entresto. Status post anoxic encephalopathy and pneumonia and sepsis early in October, improved with aggressive therapy. Back to his baseline. Continue to monitor. Status post acute renal failure. Improved, monitor renal function closely Peripheral vascular disease with history of nonhealing wounds bilaterally. Peripheral angiogram done 12/04/16 revealed moderate atherosclerotic disease on the left lower extremity, the anterior tibial artery is severely diseased on the left lower extremity but the ulcer on the left lower extremity has healed. Medical therapy is recommended. Moderate disease of the right lower extremity with good flow, with three-vessel flow down to the foot. Continue medical management at this time and continue to monitor. Small infrarenal abdominal aortic aneurysm noted during peripheral angiogram. Continue to monitor Hypertension,controlled. Continue to monitor blood pressure. Hyperlipidemia, continue to hold statin. Hyperthyroidism, history of hypothyroidism and Levothroid, managed by primary care physician History of pulmonary hypertension, continue to monitor History of rheumatoid arthritis. COPD, managed and followed by primary care physician Tobaccoism, patient has stopped smoking after the last admission. Encouraged to continue with smoking cessation History of chronic narcotic use, urine drug screen is positive for opioids Clinical Quality Measures DVT/VTE Risk/Contraindication: Risk Factor Score Per Nursin RFS Level Per Nursing on Admit: 4+=Very High TORY HALL MD Dec 26, 2016 12:00 pm
--- NOTE | 2016-12-26 12:55 | Progress Note ---
Subjective Subjective/Events-last exam Pt seen and examined, looking much better than on Monday. He states he feels much stronger. He had episode of drainage from midline this weekend. He is tolerating diet, ostomy is functioning. Review of Systems General: No Chills, No Night Sweats Pulmonary: No Dyspnea, No Cough Cardiovascular: No: Chest Pain Gastrointestinal: No: Abdominal Pain, Nausea, Vomiting Objective Exam Vital Signs Date Time Temp Pulse Resp B/P (MAP) Pulse Ox O2 Delivery O2 Flow Rate FiO2 12/26/16 09:00 Nasal Cannula 2.00 12/26/16 07:23 92 2.00 12/26/16 05:27 97.5 79 18 111/67 97 Nasal Cannula 2.00 12/25/16 21:00 Nasal Cannula 2.00 12/25/16 20:10 94 2.00 12/25/16 18:39 97.0 77 16 116/65 95 Nasal Cannula 2.00 12/25/16 15:58 94 12/25/16 14:59 94 2.00 I & O 12/26/16 06:59 Intake Total 1310 ml Output Total 1150 ml Balance 160 ml Capillary Refill : General Appearance: No Apparent Distress, Other (looking stronger, more alert and healthier than before) HEENT: PERRL/EOMI Neck: Supple Respiratory: No Respiratory Distress Cardiovascular: Regular Rate, Rhythm Gastrointestinal: non tender, soft (slight erythema at анна -better than 2- 3 days aog, ostomy edematous pink + functioning, No serous drainage from midline, ), no organomegaly, other (pt has what feels like 3cm defect at upper part of incision, this is probably a fascial defect/hernia) Extremity: Non Tender, No Pedal Edema Neurologic/Psychiatric: Alert, Oriented x3 Skin: Warm/Dry Results Lab Laboratory Tests 12/26/16 06:00: White Blood Count 15.4H, Red Blood Count 3.10L, Hemoglobin 8.2L, Hematocrit 27L , Mean Corpuscular Volume 88, Mean Corpuscular Hemoglobin 27, Mean Corpuscular Hemoglobin Concent 30L, Red Cell Distribution Width 19.9H, Platelet Count 421H, Mean Platelet Volume 9.8, Sodium Level 141, Potassium Level 3.7, Chloride Level 105, Carbon Dioxide Level 31, Anion Gap 5, Blood Urea Nitrogen 3L, Creatinine 0.70, Estimat Glomerular Filtration Rate > 60, BUN/Creatinine Ratio 4, Glucose Level 73, Calcium Level 7.2L, Magnesium Level 1.5L Assessment/Plan Assessment/Plan Assessment/Plan 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 Will allow this to heal and then fix when we do the colostomy reversal. I told the pt that this is what I suspected and we would watch it. Worst case scenario it can get worse and he will need repair of the hernia sooner. Encouraged him to increase protein intake to help with healing. Would wait to change ostomy bag when edema goes down more. It looks like a much healthier pink than before, normal looking now beside the edema. Clinical Quality Measures DVT/VTE Risk/Contraindication: Risk Factor Score Per Nursin RFS Level Per Nursing on Admit: 4+=Very High NATALIYA BOSWELL DO Dec 26, 2016 12:55
[2016-12-26] MEDS: ENOXAPARIN 40 MG/0.4 ML (LOVENOX) SYR SC SCH (13:04)
--- NOTE | 2016-12-26 13:44 | Occupational Ther Daily Note ---
OT Current Status-Daily Note Subjective Pt. reports 7/10 pain across stomach. Asks for pain pills. OT asked nursing and pt. not due for next pain meds for one hour. Appearance Pt. is in bed. Agrees to work with OT. Mental Status/Objective Patient Orientation: Person, Place, Time, Situation Functional [place] Measure 0=Not Assessed/NA 4=Minimal Assistance 1=Total Assistance 5=Supervision or Setup 2=Maximal Assistance 6=Modified [place] 3=Moderate Assistance 7=Complete [place] ADL-Treatment Functional [place] Measure 0=Not Assessed/NA 4=Minimal Assistance 1=Total Assistance 5=Supervision or Setup 2=Maximal Assistance 6=Modified [place] 3=Moderate Assistance 7=Complete IndependenceIRFPAI Quality Coding Scale 6 Independent with activity with or without an assistive device 5 Patient requires set up or clean up by helper. Patient completes activity by themselves 4 Supervision or touching assist (CGA). [place] provide cues , steadying assist 3 The helper provides less than half the effort to complete the activity 2 The helper provides more than half the effort to complete the activity 1 Dependent. The helper does all the effort to complete an activity 7 Patient refused to complete or attempt activity 9 The patient did not perform the activity before the current illness or injury 88 Not attempted due to Medical conditions or safety concerns Grooming (FIM): 5 (Pt. able to brush hair with Set up.) Oral Hygiene (QC): 9 Bathing (FIM): 3 (Pt. requires assistance to wash rear shailesh area and feet. ) Shower/Bathe Self (QC): 3 Upper Body (FIM): 4 (Min assist needed to don long sleeve shirt.) Upper Body Dressing (QC): 4 Lower Body Dressing (FIM): 2 (Pt. requires assistance to don socks, underwear and pants over feet, and then over hips in stance.) Lower Body Dressing (QC): 2 On/Off Footwear (QC): 2 Toileting (FIM): 2 (Max assist to empty colostomy with nursing assist. Pt. is able to urinate in urinal, but requires full assist to empty it.) Toileting Hygiene (QC): 2 Transfers (B, C, W/C) (FIM): 4 (CGA for sit-stand and sit-supine. Able to complete supinr-sit with SBA.) Other Treatment Pt. requires increased time to complete ADL tasks in room. Requires cues and encouragement to continue with tasks, as he will often sit there and not initiate the next step. Pt.is pleasant and willing to do what he can. 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 Education OT Patient Education: Modified ADL techniques, Progress toward Goal/Update tx plan, Purpose of tx/functional activities, Reviewed precautions, Rehab process, Transfer techniques Teaching Recipient: Patient Teaching Methods: Demonstration, Discussion Response to Teaching: Verbalize Understanding, Return Demonstration OT Short Term Goals Short Term Goals Time Frame: Jan 04, 2017 Eating(FIM): 5 Grooming(FIM): 5 Bathing(FIM): 4 Upper Body Dressing(FIM): 4 Lower Body Dressing(FIM): 4 Toileting(FIM): 4 Transfers (B,C,W/C) (FIM): 4 Toilet/Commode Transfer(FIM): 5 Shower Transfer(FIM): 5 Additional Short Term Goals: 1-Demonstrate ADL Tasks, 2-Verbalize Understanding , 3-ImproveStrength/Juli 1=Demonstrate adherence to instructed precautions during ADL tasks. 2=Patient will verbalize/demonstrate understanding of assistive devices/ modifications for ADL. 3=Patient will improve strength/tolerance for activity to enable patient to perform ADL's. OT Senior Living Goals Threader Goals Time Frame: January 18, 2017 Eating (FIM): 6 Eating (QC): 6 Groomin Oral Hygiene (QC): 6 Bathing(FIM): 5 Shower/Bathe Self (QC): 5 Upper Body Dressing(FIM): 6 Upper Body Dressing (QC): 6 Lower Body Dressing(FIM): 6 Lower Body Dressing (QC): 6 On/Off Footwear (QC): 6 Toileting(FIM): 6 Toileting Hygiene (QC): 6 Transfers (B,C,W/C) (FIM): 6 Toilet/Commode Transfer(FIM): 6 Toilet/Commode Transfer (QC): 6 Shower Transfer(FIM): 5 Additional Goals: 1-Demonstrate ADL Tasks, 2-Verbalize Understanding, 3- ImproveStrength/Juli 1=Demonstrate adherence to instructed precautions during ADL tasks. 2=Patient will verbalize/demonstrate understanding of assistive devices/ modifications for ADL. 3=Patient will improve strength/tolerance for activity to enable patient to perform ADL's. OT Education/Plan Problem List/Assessment Assessment: Decreased Activ Tolerance, Decreased UE Strength, Dependent Transfers, Impaired Bed Mobility, Impaired Coordination, Impaired Funct Balance , Impaired I ADL's, Impaired Self-Care Skills, Restricted Funct UE ROM Discharge Recommendations Plan/Recommendations: Continue POC Therapy D/C Recommendations: Home w/ Family Support, Occupational Therapy Home Care, Scheduled Assistance Comment Unsure of full equipment needs at this time. Target Placement Pt. would like to return home with spouse support. Treatment Plan/Plan of Care Treatment,Training & Education: Yes Patient would benefit from OT for education, treatment and training to promote independence in ADL's, mobility, safety and/or upper extremity function for ADL' s. Plan of Care: ADL Retraining, Caregiver Training, Functional Mobility, Group Exercise/Act as Ind, UE Funct Exercise/Act Treatment Duration: January 18, 2017 Visits Per Week: 10-12 Minutes/Day (M-F): 60-90 Minutes/Day (Sat/Ferrara): prn Agreement: Yes Rehab Potential: Fair Time/GCodes Start Time: 11:00 Stop Time: 12:00 Total Time Billed (hr/min): 60 Billed Treatment Time 1, ADL x 4 JENNI OSBORN OT Dec 26, 2016 13:44
--- NOTE | 2016-12-26 14:36 | Therapy Group Daily Note ---
Therapy Daily Group Note Patient Education Topic Other List Below (Process of Arthritis, AE and exercises for pain relief) Exercises LE Seated Exercise, UE Exercise Other/Notes Pt ambulated to group with CGA. OT/PT group consisted of introductions (name, place living, favorite job), socialization, education on arthritis process and the Process of Arthritis, AE and exercises for pain relief and UE/LE seated exercises. Pt contributed to introductions and conversations appropriately. Pt able to complete UE/LE seated exercises without difficulty. Pt demonstrated understanding of topic and was able to give examples that were appropriate. After therapy, pt sitting in recliner, visitors present in room. Call light/ phone in reach. All needs met in room. Start Time: 13:00 Stop Time: 14:15 Total Billed Treatment Time: 75 Total Billed Treatment 1-GRP SOMMER SORENSON Dec 26, 2016 14:36
[2016-12-26 18:00] VITALS: BP 90/61
[2016-12-26 20:11] VITALS: BP 107/67
[2016-12-26] MEDS: ATORVASTATIN 40 MG (LIPITOR) TABLET PO SCH (20:14)
[2016-12-26 21:17] VITALS: BP 139/72
[2016-12-27] MEDS: VANCOMYCIN ORAL 250 MG/5 ML 60 ML PO SCH ×8 (01:12→17:51)
[2016-12-27] MEDS: HYDROcodone/APAP 10 MG/325 MG (LORTAB) TAB PO PRN ×3 (01:13→18:50)
[2016-12-27] MEDS: morphine ER 30 MG (MS CONTIN) TAB PO SCH ×3 (05:16→22:13)
[2016-12-27 05:30] VITALS: BP 96/61
[2016-12-27] MEDS: LEVOTHYROXINE 100 MCG (LEVOTHROID) TAB PO SCH (06:14)
[2016-12-27] MEDS: CALCIUM CARBONATE 600 MG (CALCARB) TAB PO SCH (06:14)
[2016-12-27] MEDS: PANTOPRAZOLE 40 MG (PROTONIX) TAB PO SCH (06:14)
[2016-12-27] MEDS: LEVOTHYROXINE 75 MCG (LEVOTHROID) TABLET PO SCH (06:14)
[2016-12-27] MEDS: RT-ALBUTEROL/IPRATROPIUM 3 ML (DUONEB) VIAL INH SCH ×3 (06:51→19:37)
--- NOTE | 2016-12-27 08:26 | Cardiology Progress Note ---
Subjective Subjective/Events-last exam Patient in bed, no new complaints. Denies any CP or dyspnea. Reports drainage from inc site has improved. Review of Systems General: No Night Sweats, Fatigue, Malaise, Appetite (decreased) HEENT: No Visual Changes, No Eye Pain, No Dysphasia, No Sore Throat Pulmonary: No Dyspnea, No Cough Cardiovascular: No: Chest Pain, Palpitations Gastrointestinal: No: Abdominal Pain, Nausea, Vomiting Genitourinary: No Dysuria, No Frequency Musculoskeletal: No: neck pain Neurological: No: Change in speech, Confusion, Numbness, Weakness Objective-Cardiology Exam Last Set of Vital Signs Vital Signs 12/27/16 12/27/16 05:30 06:52 Temp 97.1 Pulse 96 Resp 16 B/P (MAP) 96/61 Pulse Ox 92 O2 Delivery Room Air O2 Flow Rate 2.00 Capillary Refill : I&O Intake and Output 12/27/16 00:00 Intake Total 1140 ml Output Total 400 ml Balance 740 ml Intake Oral 1140 ml Stool Total 300 ml Urine/Stool Mix 100 ml # Voids 11 General: Alert, Oriented X3, Cooperative, No Acute Distress HEENT: Atraumatic, PERRLA, EOMI, Mucous Memb Moist/[place] Neck: Supple, No JVD Lungs: Clear to Auscultation Heart: Regular Rate Abdomen: Normal Bowel Sounds, Soft, No Tenderness, Other (colostomy functioning ) Extremities: Other (trace edema) Neuro: Normal Speech, Cranial Nerves 3-12 NL Psych/Mental Status: Mental Status NL A/P-Cardiology Admission Diagnosis C. difficile colitis Sepsis CHF PVD Assessment/Plan C. difficile colitis, status post extended left hemicolectomy with Pam procedure, recovering slowly, continue to monitor at this time. Sepsis, improved, continue to monitor. Short of breath, Reporting improvement. Continue to monitor. Anemia, continue to monitor H&H. Hypokalemia, hypomagnesemia, replaced, continue to monitor. Peripheral edema, started back on Lasix, tolerating it well. Continue to monitor Congestive heart failure, nonischemic cardiomyopathy, acute on chronic left ventricular systolic dysfunction with most recent ejection fraction improved to 50 percent. Maintained on beta gurpreet and Entresto. Status post anoxic encephalopathy and pneumonia and sepsis early in October, improved with aggressive therapy. Back to his baseline. Continue to monitor. Status post acute renal failure. Improved, monitor renal function closely Peripheral vascular disease with history of nonhealing wounds bilaterally. Peripheral angiogram done 12/04/16 revealed moderate atherosclerotic disease on the left lower extremity, the anterior tibial artery is severely diseased on the left lower extremity but the ulcer on the left lower extremity has healed. Medical therapy is recommended. Moderate disease of the right lower extremity with good flow, with three-vessel flow down to the foot. Continue medical management at this time and continue to monitor. Small infrarenal abdominal aortic aneurysm noted during peripheral angiogram. Continue to monitor Hypertension,controlled. Continue to monitor blood pressure. Hyperlipidemia, continue to hold statin. Hyperthyroidism, history of hypothyroidism and Levothroid, managed by primary care physician History of pulmonary hypertension, continue to monitor History of rheumatoid arthritis. COPD, managed and followed by primary care physician Tobaccoism, patient has stopped smoking after the last admission. Encouraged to continue with smoking cessation History of chronic narcotic use, urine drug screen is positive for opioids Clinical Quality Measures DVT/VTE Risk/Contraindication: Risk Factor Score Per Nursin RFS Level Per Nursing on Admit: 4+=Very High FATUMA GARCES Dec 27, 2016 08:26
[2016-12-27] MEDS: SACUBITRIL/VALSARTAN 24/26 MG (ENTRESTO) TABLET PO SCH ×2 (08:44→20:43)
[2016-12-27] MEDS: metroNIDAZOLE 500 MG (FLAGYL) TAB PO SCH ×3 (08:44→20:43)
[2016-12-27] MEDS: MAGNESIUM OXIDE (MAG-OX)400 MG TAB PO SCH ×2 (08:45→17:50)
[2016-12-27] MEDS: FUROSEMIDE 20 MG (LASIX) TAB PO SCH (08:45)
[2016-12-27] MEDS: KCL 10 MEQ TAB (MICRO K) PO SCH ×2 (08:45→20:43)
[2016-12-27] MEDS: ASPIRIN E.C. 81 MG (ECOTRIN) TAB PO SCH (08:45)
[2016-12-27 09:00] VITALS: BP 92/60
[2016-12-27] MEDS: CARVEDILOL 3.125 MG (COREG) TABLET PO SCH ×2 (09:00→20:46)
--- NOTE | 2016-12-27 09:38 | Physical Therapy Daily Note ---
PT Daily Note-Current Subjective Pt laying supine in bed upon arrival. Pt reports drainage over the weekend as well as yesterday afternoon and has increased pain with sitting up and with ambulation. Pt agrees to try PT. Pain Numeric Pain Scale: 10-Worst Possible Pain Location: Incisional Location Body Site: Abdomen Pain Description: Sharp Comment: Started at 8 and dull but changed to 10 and sharp w/EX Mental Status Patient Orientation: Person, Place, Time, Situation Attachments: Colostomy/Ileostomy, Oxygen Transfers Functional [place] Measure 0=Not Assessed/NA 4=Minimal Assistance 1=Total Assistance 5=Supervision or Setup 2=Maximal Assistance 6=Modified [place] 3=Moderate Assistance 7=Complete IndependenceIRFPAI Quality Coding Scale 6 Independent with activity with or without an assistive device 5 Patient requires set up or clean up by helper. Patient completes activity by themselves 4 Supervision or touching assist (CGA). [place] provide cues , steadying assist 3 The helper provides less than half the effort to complete the activity 2 The helper provides more than half the effort to complete the activity 1 Dependent. The helper does all the effort to complete an activity 7 Patient refused to complete or attempt activity 9 The patient did not perform the activity before the current illness or injury 88 Not attempted due to Medical conditions or safety concerns Rollin Roll Left to Right (QC): 5 Exercises Supine Ex: Ankle pumps, Quad Set, Heel Slides, Straight leg raise, Hip abd/add Supine Reps: 20 Treatments Pt and PT discuss pt's recent change in drainage from incision and when pain seems to increase. Pt then agrees to Supine EX in bed with rest breaks for fatigue and pain. Pt completes EX with several rest breaks. Pt then rolls side to side for positional changes and PT helps prop on R side with pillows. Pt is left with all needs met at end of tx. Assessment Current Status: Fair Progress Pt continues to report pain even with pain med and is having drainage with excess movement. Pt is anxious and a little apprehensive about too much movement. Pt continues to require frequent rest breaks and is slow with activity. PT Short Term Goals Short Term Goals Time Frame: Jan 04, 2017 Transfers (B,C,W/C) (FIM): 4 Gait (FIM): 2 Distance (FIM): 4=569-32 ft Gait Assistive Device: FWW Wheelchair Distance: 100' x 2 Stairs (FIM): 2 # of Steps: 4 PT Machine Sewer Goals Machine Sewer Goals PT Machine Sewer Goals Time Frame: January 18, 2017 Transfers (B,C,W/C) (FIM): 6 Sit to Lying (QC): 6 Lying-Sitting on Side/Bed(QC): 6 Sit to Stand (QC): 6 Rollin Roll Left to Right (QC): 6 Chair/[id number] Xfer(QC): 6 Car Transfer (QC): 5 Does the Patient Walk: Yes Gait (FIM): 5 Gait distance (FIM): 0=936-02 ft Walk 10 feet (QC): 5 Walk 10ft-Uneven Surface(QC): 5 Walk 50ft with 2 Turns (QC): 5 Walk 150 ft (QC): 88 Gait Assistive Device: FWW Does the Pt use WC or Scooter?: Yes Wheelchair (FIM): 6 Wheelchair distance (FIM): 3=150 ft Wheel 50 feet with 2 turns (QC: 6 Stairs (FIM): 2 # of Steps: 4 1 Step (curb) (QC): 5 4 Steps (QC): 5 12 Steps (QC): 88 Picking up an Object (QC): 88 PT Plan Problem List Problem List: Activity Tolerance, Functional Strength, Safety, Balance, Gait, Transfer, Bed Mobility Treatment/Plan Treatment Plan: Continue Plan of Care Treatment Plan: Bed Mobility, Education, Functional Activity Juli, Functional Strength, Group Therapy, Gait, Safety, Therapeutic Exercise, Transfers Treatment Duration: January 18, 2017 Visits Per Week: 10-15 Minutes/Day (M-F): 60-90 Minutes/Day (Sat/Ferrara): prn Safety Risks/Education Patient Education: Transfer Techniques, Correct Positioning, Disease Process, Safety Issues Teaching Recipient: Patient Teaching Methods: Discussion Response to Teaching: Verbalize Understanding Time/GCodes Time In: 900 Time Out: 1000 Total Billed Treatment Time: 60 Total Billed Treatment visit, FA X2 (30m) & EX X2 (30m) JEFFREY COOK PTA Dec 27, 2016 09:38
--- NOTE | 2016-12-27 13:22 | Occupational Ther Daily Note ---
OT Current Status-Daily Note Subjective Pt. reports discomfort in his stomach area, but does not report a pain level. Pt. also states that his stomach was "leaking" and that nursing had to bandage it further. Appearance Pt. in bed. Declines bathing or dressing. Does not want to put on clothing due to stomach incisional issues. Does agree to go to therapy gym. This has been approved by infection control per physical therapy with isolation precautions in effect, (pt. gowned and gloved, bleach used.) Mental Status/Objective Patient Orientation: Person, Place Functional [place] Measure 0=Not Assessed/NA 4=Minimal Assistance 1=Total Assistance 5=Supervision or Setup 2=Maximal Assistance 6=Modified [place] 3=Moderate Assistance 7=Complete [place] ADL-Treatment Functional [place] Measure 0=Not Assessed/NA 4=Minimal Assistance 1=Total Assistance 5=Supervision or Setup 2=Maximal Assistance 6=Modified [place] 3=Moderate Assistance 7=Complete IndependenceIRFPAI Quality Coding Scale 6 Independent with activity with or without an assistive device 5 Patient requires set up or clean up by helper. Patient completes activity by themselves 4 Supervision or touching assist (CGA). [place] provide cues , steadying assist 3 The helper provides less than half the effort to complete the activity 2 The helper provides more than half the effort to complete the activity 1 Dependent. The helper does all the effort to complete an activity 7 Patient refused to complete or attempt activity 9 The patient did not perform the activity before the current illness or injury 88 Not attempted due to Medical conditions or safety concerns Transfers (B, C, W/C) (FIM): 3 (Pt. requires min assit for supine-sit, and min assist for sit-stand. Requires max assist for sit-supine.) Other Treatment Pt. agrees to go to therapy gym. Requires increased time to complete every task , such as transfers. Pt. will sit on side of bed and wait several minutes before initiating transfer. Transferred to wheelchair and worked on self propelling with feet to therapy gym. This took increased time as pt. would stop to rest. Spoke with RT before treatment and okay for pt. to be off oxygen. Pt. wearing isolation gown and gloves during this treatment. Went to gym. Tolerated 10 minutes on armbike to increase overall strength and endurance with daily tasks. Demonstrates difficulty with increased shoulder flexion as pt. has significant arthritis. After this task, donned 1 lb. wrist weights and completed series of fine motor exercises with putting pegs in resistive peg board and unscrewing/screwing nut/bolt board. Pt stated at first that this would be too easy. But due to arthritis and weakness, actually had difficulty with these tasks. Does state that he feels that he is getting stronger. Went back to room via wheelchair, and transferred to bed with min assist. All needs met. Education OT Patient Education: Correct positioning, Exercise program, Modified ADL techniques, Progress toward Goal/Update tx plan, Purpose of tx/functional activities, Reviewed precautions, Rehab process, Transfer techniques Teaching Recipient: Patient Teaching Methods: Demonstration, Discussion Response to Teaching: Verbalize Understanding, Return Demonstration OT Short Term Goals Short Term Goals Time Frame: Jan 04, 2017 Eating(FIM): 5 Grooming(FIM): 5 Bathing(FIM): 4 Upper Body Dressing(FIM): 4 Lower Body Dressing(FIM): 4 Toileting(FIM): 4 Transfers (B,C,W/C) (FIM): 4 Toilet/Commode Transfer(FIM): 5 Shower Transfer(FIM): 5 Additional Short Term Goals: 1-Demonstrate ADL Tasks, 2-Verbalize Understanding , 3-ImproveStrength/Juli 1=Demonstrate adherence to instructed precautions during ADL tasks. 2=Patient will verbalize/demonstrate understanding of assistive devices/ modifications for ADL. 3=Patient will improve strength/tolerance for activity to enable patient to perform ADL's. OT [facility] Goals Inspector Watch Train Goals Time Frame: January 18, 2017 Eating (FIM): 6 Eating (QC): 6 Groomin Oral Hygiene (QC): 6 Bathing(FIM): 5 Shower/Bathe Self (QC): 5 Upper Body Dressing(FIM): 6 Upper Body Dressing (QC): 6 Lower Body Dressing(FIM): 6 Lower Body Dressing (QC): 6 On/Off Footwear (QC): 6 Toileting(FIM): 6 Toileting Hygiene (QC): 6 Transfers (B,C,W/C) (FIM): 6 Toilet/Commode Transfer(FIM): 6 Toilet/Commode Transfer (QC): 6 Shower Transfer(FIM): 5 Additional Goals: 1-Demonstrate ADL Tasks, 2-Verbalize Understanding, 3- ImproveStrength/Juli 1=Demonstrate adherence to instructed precautions during ADL tasks. 2=Patient will verbalize/demonstrate understanding of assistive devices/ modifications for ADL. 3=Patient will improve strength/tolerance for activity to enable patient to perform ADL's. OT Education/Plan Problem List/Assessment Assessment: Decreased Activ Tolerance, Decreased UE Strength, Dependent Transfers, Impaired Bed Mobility, Impaired Coordination, Impaired Funct Balance , Impaired I ADL's, Impaired Self-Care Skills, Restricted Funct UE ROM Discharge Recommendations Plan/Recommendations: Continue POC Therapy D/C Recommendations: Home w/ Family Support, Occupational Therapy Home Care, Scheduled Assistance Target Placement Home with family support. Treatment Plan/Plan of Care Treatment,Training & Education: Yes Patient would benefit from OT for education, treatment and training to promote independence in ADL's, mobility, safety and/or upper extremity function for ADL' s. Plan of Care: ADL Retraining, Caregiver Training, Functional Mobility, Group Exercise/Act as Ind, UE Funct Exercise/Act Treatment Duration: January 18, 2017 Visits Per Week: 10-12 Minutes/Day (M-F): 60-90 Minutes/Day (Sat/Ferrara): prn Agreement: Yes Rehab Potential: Fair Time/GCodes Start Time: 10:15 Stop Time: 11:45 Total Time Billed (hr/min): 90 Billed Treatment Time 1, ADL x 30minutes, FA x 60minutes JENNI OSBORN OT Dec 27, 2016 13:22
[2016-12-27] MEDS: ENOXAPARIN 40 MG/0.4 ML (LOVENOX) SYR SC SCH (13:49)
--- NOTE | 2016-12-27 15:27 | Physical Therapy Daily Note ---
PT Daily Note-Current Subjective Pt laying supine in bed upon arrival. Pt agrees to PT although is still apprehensive about "popping a stitch and drainage going everywhere". Pain Numeric Pain Scale: 10-Worst Possible Pain Location: Incisional Location Body Site: Abdomen Pain Description: Sharp Comment: Pt reports 10/10 pain at incision w/Movement or EX Mental Status Patient Orientation: Person, Place, Time, Situation Attachments: Colostomy/Ileostomy, Oxygen (Pt stated nursing removed O2) Transfers Functional [place] Measure 0=Not Assessed/NA 4=Minimal Assistance 1=Total Assistance 5=Supervision or Setup 2=Maximal Assistance 6=Modified [place] 3=Moderate Assistance 7=Complete IndependenceIRFPAI Quality Coding Scale 6 Independent with activity with or without an assistive device 5 Patient requires set up or clean up by helper. Patient completes activity by themselves 4 Supervision or touching assist (CGA). [place] provide cues , steadying assist 3 The helper provides less than half the effort to complete the activity 2 The helper provides more than half the effort to complete the activity 1 Dependent. The helper does all the effort to complete an activity 7 Patient refused to complete or attempt activity 9 The patient did not perform the activity before the current illness or injury 88 Not attempted due to Medical conditions or safety concerns Scootin Rollin Roll Left to Right (QC): 5 Supine to/from Sit: 4 Sit to/from Stand: 4 Sit to Lying (QC): 4 Sit to Stand (QC): 4 Weight Bearing Weight Bearing Restriction: Full Weight Bearing Location Restriction: LE Bilateral Gait Training Does the Patient Walk?: Yes Distance (FIM): 1=up to 49 ft Distance: 25' Walk 10 feet (QC): 4 Gait Level of Assist: 4 Gait Persons Needed: 1 Gait Assistive Device: FWW Pt fatigues after approx. 10-15' and has to return to bed due to fatigue and R knee starts to buckle. Pt's gait is slow and wobbly, no LOB though. Exercises Supine Ex: Rolling Seated Therapy Exercises: Sit to stand Treatments Pt trasnferred from supine to EOB then rested before going from EOB to Standing. Pt then stands for short time before ambulating in room. Pt fatigues and returns to EOB before transferring back to Supine in bed to rest. Pt is left with all needs met at end of tx. Assessment Current Status: Fair Progress Pt fatigues easy and requires lengthy rest breaks between tasks. Pt is still very anxious about "popping another stitch with movement". Pt had to encourage pt to try to transfer to EOB and to ambulate. PT Short Term Goals Short Term Goals Time Frame: Jan 04, 2017 Transfers (B,C,W/C) (FIM): 4 Gait (FIM): 2 Distance (FIM): 2=897-42 ft Gait Assistive Device: FWW Wheelchair Distance: 100' x 2 Stairs (FIM): 2 # of Steps: 4 PT Snf Goals Snf Goals PT Snf Goals Time Frame: January 18, 2017 Transfers (B,C,W/C) (FIM): 6 Sit to Lying (QC): 6 Lying-Sitting on Side/Bed(QC): 6 Sit to Stand (QC): 6 Rollin Roll Left to Right (QC): 6 Chair/Zfk-lf-Fpeoz Xfer(QC): 6 Car Transfer (QC): 5 Does the Patient Walk: Yes Gait (FIM): 5 Gait distance (FIM): 8=966-67 ft Walk 10 feet (QC): 5 Walk 10ft-Uneven Surface(QC): 5 Walk 50ft with 2 Turns (QC): 5 Walk 150 ft (QC): 88 Gait Assistive Device: FWW Does the Pt use WC or Scooter?: Yes Wheelchair (FIM): 6 Wheelchair distance (FIM): 3=150 ft Wheel 50 feet with 2 turns (QC: 6 Stairs (FIM): 2 # of Steps: 4 1 Step (curb) (QC): 5 4 Steps (QC): 5 12 Steps (QC): 88 Picking up an Object (QC): 88 PT Plan Problem List Problem List: Activity Tolerance, Functional Strength, Safety, Balance, Gait, Transfer, Bed Mobility Treatment/Plan Treatment Plan: Continue Plan of Care Treatment Plan: Bed Mobility, Education, Functional Activity Juli, Functional Strength, Group Therapy, Gait, Safety, Therapeutic Exercise, Transfers Treatment Duration: January 18, 2017 Visits Per Week: 10-15 Minutes/Day (M-F): 60-90 Minutes/Day (Sat/Ferrara): prn Safety Risks/Education Patient Education: Gait Training, Transfer Techniques, Correct Positioning, Safety Issues Teaching Recipient: Patient Teaching Methods: Discussion Response to Teaching: Verbalize Understanding Time/GCodes Time In: 1400 Time Out: 1430 Total Billed Treatment Time: 30 Total Billed Treatment visit, FA (15m) & GT (15m) JEFFREY COOK PSYCHIC READER Dec 27, 2016 15:27
[2016-12-27 18:12] VITALS: BP 107/70
--- NOTE | 2016-12-27 19:20 | PM & R (SOAP) Progress Note ---
Subjective Subjective/Events-last exam Patient was seen in his room this evening Discussed case with RN Patient progressing well with therapies patient Min assist for transfers Appreciate Crdiology notes and Dr Guerrier notes and current labs Objective Exam Last Set of Vital Signs Vital Signs Date Time Temp Pulse Resp B/P (MAP) Pulse Ox O2 Delivery O2 Flow Rate FiO2 12/27/16 18:12 97.1 84 16 107/70 94 Room Air 12/27/16 09:00 2.00 Capillary Refill : I&O Intake and Output 12/27/16 00:00 Intake Total 1140 ml Output Total 400 ml Balance 740 ml Intake Oral 1140 ml Stool Total 300 ml Urine/Stool Mix 100 ml # Voids 11 General: Alert, Oriented X3, Cooperative, No Acute Distress HEENT: Atraumatic, PERRLA, EOMI, Mucous Memb Moist/[place] Neck: Supple, No JVD Lungs: Clear to Auscultation Heart: Regular Rate Abdomen: Normal Bowel Sounds, Soft, No Tenderness, Other ( colostomy functioning and no drainage noted from midline incision) Extremities: Other (trace edema) Neuro: Normal Speech, Cranial Nerves 3-12 NL Psych/Mental Status: Mental Status NL Results Lab Laboratory Tests 12/25/16 07:00: Sodium Level 139, Potassium Level 3.8, Chloride Level 105, Carbon Dioxide Level 29, Anion Gap 5, Blood Urea Nitrogen 3L, Creatinine 0.70, Estimat Glomerular Filtration Rate > 60, BUN/Creatinine Ratio 4, Glucose Level 83, Calcium Level 7.5L, Magnesium Level 1.4L 12/26/16 06:00: Sodium Level 141, Potassium Level 3.7, Chloride Level 105, Carbon Dioxide Level 31, Anion Gap 5, Blood Urea Nitrogen 3L, Creatinine 0.70, Estimat Glomerular Filtration Rate > 60, BUN/Creatinine Ratio 4, Glucose Level 73, Calcium Level 7.2L, Magnesium Level 1.5L, White Blood Count 15.4H, Red Blood Count 3.10L, Hemoglobin 8.2L, Hematocrit 27L, Mean Corpuscular Volume 88, Mean Corpuscular Hemoglobin 27, Mean Corpuscular Hemoglobin Concent 30L, Red Cell Distribution Width 19.9H, Platelet Count 421H, Mean Platelet Volume 9.8 Assessment/Plan Assessment general debil s/p sepsis secondary to 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 Recheck labs in AM see orders NATALIYA KHANNA MD Dec 27, 2016 19:20
[2016-12-27] MEDS: ATORVASTATIN 40 MG (LIPITOR) TABLET PO SCH (20:44)
[2016-12-28] MEDS: VANCOMYCIN ORAL 250 MG/5 ML 60 ML PO SCH ×6 (00:04→13:01)
[2016-12-28] MEDS: HYDROcodone/APAP 10 MG/325 MG (LORTAB) TAB PO PRN ×3 (03:40→17:58)
[2016-12-28 05:00] VITALS: BP 93/53
[2016-12-28] MEDS: LEVOTHYROXINE 100 MCG (LEVOTHROID) TAB PO SCH (06:23)
[2016-12-28] MEDS: PANTOPRAZOLE 40 MG (PROTONIX) TAB PO SCH (06:23)
[2016-12-28] MEDS: CALCIUM CARBONATE 600 MG (CALCARB) TAB PO SCH (06:23)
[2016-12-28] MEDS: morphine ER 30 MG (MS CONTIN) TAB PO SCH ×3 (06:23→21:18)
[2016-12-28] MEDS: LEVOTHYROXINE 75 MCG (LEVOTHROID) TABLET PO SCH (06:23)
[2016-12-28 06:43] LABS: BASOPHILS # (AUTO) 0.1 10^3/uL (0.0-0.1); BASOPHILS % (AUTO) 1 % (0-10); EOSINOPHILS # (AUTO) 0.3 10^3/uL (0.0-0.3); EOSINOPHILS % (AUTO) 2 % (0-10); LYMPHOCYTES % (AUTO) 24 % (12-44); MEAN CORPUSCULAR HEMOGLOBIN 27 PG (25-34); MEAN CORPUSCULAR HGB CONC 30 G/DL (32-36); MEAN CORPUSCULAR VOLUME 89 FL (80-99); MEAN PLATELET VOLUME 9.7 FL (7.4-10.4); MONOCYTES # (AUTO) 1.1 X 10^3 (0.0-1.0); MONOCYTES % (AUTO) 9 % (0-12); NEUTROPHILS # (AUTO) 7.9 X 10^3 (1.8-7.8); NEUTROPHILS % (AUTO) 64 % (42-75); PLATELET COUNT 478 10^3/uL (130-400); RED CELL DISTRIBUTION WIDTH 20.2 % (10.0-14.5); WHITE BLOOD COUNT 12.3 10^3/uL (4.3-11.0)
[2016-12-28 07:18] LABS: ALANINE AMINOTRANSFERASE 6 U/L (0-55); ALBUMIN 1.6 G/DL (3.2-4.5); ANION GAP 5 MMOL/L (5-14); ASPARTATE AMINO TRANSFERASE 14 U/L (5-34); BILIRUBIN,TOTAL 0.2 MG/DL (0.1-1.0); BLOOD UREA NITROGEN 4 MG/DL (7-18); BUN/CREATININE RATIO 6; CALCIUM 7.4 MG/DL (8.5-10.1); CARBON DIOXIDE 34 MMOL/L (21-32); CHLORIDE 102 MMOL/L (98-107); CREATININE SERUM 0.71 MG/DL (0.60-1.30); GFR ESTIMATED > 60; GLUCOSE 74 MG/DL (70-105); POTASSIUM 3.8 MMOL/L (3.6-5.0); SODIUM 141 MMOL/L (135-145); TOTAL PROTEIN 4.4 G/DL (6.4-8.2)
[2016-12-28] MEDS: ASPIRIN E.C. 81 MG (ECOTRIN) TAB PO SCH (08:34)
[2016-12-28] MEDS: FUROSEMIDE 20 MG (LASIX) TAB PO SCH (08:34)
[2016-12-28] MEDS: SACUBITRIL/VALSARTAN 24/26 MG (ENTRESTO) TABLET PO SCH ×2 (08:34→21:18)
[2016-12-28] MEDS: MAGNESIUM OXIDE (MAG-OX)400 MG TAB PO SCH ×2 (08:34→17:57)
[2016-12-28] MEDS: metroNIDAZOLE 500 MG (FLAGYL) TAB PO SCH (08:34)
[2016-12-28] MEDS: CARVEDILOL 3.125 MG (COREG) TABLET PO SCH ×2 (08:34→21:18)
[2016-12-28] MEDS: KCL 10 MEQ TAB (MICRO K) PO SCH ×2 (08:34→21:18)
--- NOTE | 2016-12-28 08:42 | Cardiology Progress Note ---
Subjective Subjective/Events-last exam Patient in bed, complaining of drainage at incision site. Denies any CP or dyspnea. Review of Systems General: No Night Sweats, No Fatigue, No Malaise HEENT: No Visual Changes, No Dysphasia, No Sore Throat Pulmonary: No Dyspnea, No Cough, No Pleuritic Chest Pain Cardiovascular: No: Chest Pain, Edema, Palpitations, Paroxysmal Noc. Dyspnea Gastrointestinal: No: Abdominal Pain, Constipation, Diarrhea, Nausea, Vomiting Genitourinary: No Dysuria, No Frequency Musculoskeletal: No: back pain, neck pain Neurological: No: Numbness, Weakness Objective-Cardiology Exam Last Set of Vital Signs Vital Signs 12/28/16 05:00 Temp 98.8 Pulse 96 Resp 20 B/P (MAP) 93/53 O2 Delivery Room Air Capillary Refill : I&O Intake and Output 12/28/16 00:00 Intake Total 1280 ml Output Total 825 ml Balance 455 ml Intake Oral 1280 ml Output Urine Total 700 ml Stool Total 125 ml # Voids 3 General: Alert, Oriented X3, Cooperative, No Acute Distress HEENT: Atraumatic, PERRLA, EOMI, Mucous Memb Moist/[place] Neck: Supple, No JVD Lungs: Clear to Auscultation Heart: Regular Rate Abdomen: Normal Bowel Sounds, Soft, No Tenderness, Other (dressing saturated from drainage) Extremities: Other (trace edema) Neuro: Normal Speech, Cranial Nerves 3-12 NL Psych/Mental Status: Mental Status NL Results Lab Laboratory Tests 12/28/16 06:30 A/P-Cardiology Admission Diagnosis C. difficile colitis Sepsis CHF PVD Assessment/Plan C. difficile colitis, status post extended left hemicolectomy with Pam procedure, recovering slowly, continue to monitor at this time. Sepsis, improved, continue to monitor. Short of breath, Reporting improvement. Continue to monitor. Anemia, Hgb 8.0, continue to monitor H&H closely. Hypokalemia, hypomagnesemia, replaced, continue to monitor. Peripheral edema, started back on Lasix, tolerating it well. Continue to monitor Congestive heart failure, nonischemic cardiomyopathy, acute on chronic left ventricular systolic dysfunction with most recent ejection fraction improved to 50 percent. Maintained on beta gurpreet and Entresto. Status post anoxic encephalopathy and pneumonia and sepsis early in October, improved with aggressive therapy. Back to his baseline. Continue to monitor. Status post acute renal failure. Improved, monitor renal function closely Peripheral vascular disease with history of nonhealing wounds bilaterally. Peripheral angiogram done 12/04/16 revealed moderate atherosclerotic disease on the left lower extremity, the anterior tibial artery is severely diseased on the left lower extremity but the ulcer on the left lower extremity has healed. Medical therapy is recommended. Moderate disease of the right lower extremity with good flow, with three-vessel flow down to the foot. Continue medical management at this time and continue to monitor. Small infrarenal abdominal aortic aneurysm noted during peripheral angiogram. Continue to monitor Hypertension,controlled. Continue to monitor blood pressure. Hyperlipidemia, continue to hold statin. Hyperthyroidism, history of hypothyroidism and Levothroid, managed by primary care physician History of pulmonary hypertension, continue to monitor History of rheumatoid arthritis. COPD, managed and followed by primary care physician Tobaccoism, patient has stopped smoking after the last admission. Encouraged to continue with smoking cessation History of chronic narcotic use, urine drug screen is positive for opioids Clinical Quality Measures DVT/VTE Risk/Contraindication: Risk Factor Score Per Nursin RFS Level Per Nursing on Admit: 4+=Very High FATUMA GARCES Dec 28, 2016 08:42
--- NOTE | 2016-12-28 09:39 | Physical Therapy Daily Note ---
PT Daily Note-Current Subjective Pt. comments that he is dealing with extreme drainage from his abdominal incision. Also c/o abdominal pain at 9/10. But states he feels a little better after Rx. Pain Numeric Pain Scale: 9 Location: Incisional Location Body Site: Abdomen Pain Description: Burning Mental Status Patient Orientation: Normal For Age Attachments: Colostomy/Ileostomy Transfers Functional [place] Measure 0=Not Assessed/NA 4=Minimal Assistance 1=Total Assistance 5=Supervision or Setup 2=Maximal Assistance 6=Modified [place] 3=Moderate Assistance 7=Complete IndependenceIRFPAI Quality Coding Scale 6 Independent with activity with or without an assistive device 5 Patient requires set up or clean up by helper. Patient completes activity by themselves 4 Supervision or touching assist (CGA). [place] provide cues , steadying assist 3 The helper provides less than half the effort to complete the activity 2 The helper provides more than half the effort to complete the activity 1 Dependent. The helper does all the effort to complete an activity 7 Patient refused to complete or attempt activity 9 The patient did not perform the activity before the current illness or injury 88 Not attempted due to Medical conditions or safety concerns Transfers (B, C, W/C) (FIM): 4 Scootin Rollin Supine to/from Sit: 4 Sit to/from Stand: 4 Bed to/from Chair: 4 higher surfaces help assist TRFs Gait Training Does the Patient Walk?: Yes Gait (FIM): 1 Distance (FIM): 1=up to 49 ft (20x3) Gait Level of Assist: 4 Gait Persons Needed: 1 Gait Assistive Device: FWW unequal step length , fatigues quickly, Wheelchair Training Does the Pt Use a Wheelchair?: Yes Wheelchair (FIM): 4 Wheelchair Distance: 9=515-72 ft (100x2) Wheelchair Level of Assist: 4 Type of Wheelchair: Manual Exercises Supine Ex: Ankle pumps, Quad Set, Rolling, Glut sets, Heel Slides, Short Arc Quads, Scooting, Straight leg raise, Hip abd/add Supine Reps: 12 NuStep Minutes: 10 NuStep Workload: 2 Treatments pts. abdominal dressing had to be completely changed x 2 during Rx secondary to heavy drainage. Nursing addressed pain with meds Assessment Current Status: Good Progress slow progress PT Short Term Goals Short Term Goals Time Frame: Jan 04, 2017 Transfers (B,C,W/C) (FIM): 4 Gait (FIM): 2 Distance (FIM): 3=205-33 ft Gait Assistive Device: FWW Wheelchair Distance: 100' x 2 Stairs (FIM): 2 # of Steps: 4 PT Montessori Preschool Teacher Goals Snf Goals PT Snf Goals Time Frame: January 18, 2017 Transfers (B,C,W/C) (FIM): 6 Sit to Lying (QC): 6 Lying-Sitting on Side/Bed(QC): 6 Sit to Stand (QC): 6 Rollin Roll Left to Right (QC): 6 Chair/Tac-oq-Ryylr Xfer(QC): 6 Car Transfer (QC): 5 Does the Patient Walk: Yes Gait (FIM): 5 Gait distance (FIM): 2=040-74 ft Walk 10 feet (QC): 5 Walk 10ft-Uneven Surface(QC): 5 Walk 50ft with 2 Turns (QC): 5 Walk 150 ft (QC): 88 Gait Assistive Device: FWW Does the Pt use WC or Scooter?: Yes Wheelchair (FIM): 6 Wheelchair distance (FIM): 3=150 ft Wheel 50 feet with 2 turns (QC: 6 Stairs (FIM): 2 # of Steps: 4 1 Step (curb) (QC): 5 4 Steps (QC): 5 12 Steps (QC): 88 Picking up an Object (QC): 88 PT Plan Treatment/Plan Treatment Plan: Continue Plan of Care Treatment Plan: Bed Mobility, Education, Functional Activity Juli, Functional Strength, Group Therapy, Gait, Safety, Therapeutic Exercise, Transfers Treatment Duration: January 18, 2017 Visits Per Week: 10-15 Minutes/Day (M-F): 60-90 Minutes/Day (Sat/Ferrara): prn Safety Risks/Education Patient Education: Gait Training, Transfer Techniques, Correct Positioning, W/ C Management, Disease Process, Safety Issues Teaching Recipient: Patient Teaching Methods: Demonstration, Discussion Response to Teaching: Verbalize Understanding, Return Demonstration, Reinforcement Needed Time/GCodes Time In: 830 Time Out: 935 Total Billed Treatment Time: 65 Total Billed Treatment 1,GT20m,FA20m,EX25m G Codes Necessary: ANAHI Sampson RN BIRTHING Dec 28, 2016 09:39
--- NOTE | 2016-12-28 10:43 | Progress Note-Hospitalist ---
Progress Note Progress Notes/Assess & Plan Date Seen 12/28/16 Diagonsis/Assessment & Plan Chart Review: No fever Vitals stable WBC 12 Hgb 8 Platelets 478 K+ 3.8 Creat normal english composition teacher: RN reports that WBC is lowering, and other labs are stable. RN states that pt has significant fluid from incision, but Surgery is not concerned. Patient Interview: Pt states that he is concerned about the fluid coming from his incision. Dr. Urbano informs pt that this is expected, and not a major concern. Pt has been able to participate in therapy to some degree. Physical exam stable. Pt states that his pain is manageable currently, and he is taking pain meds regularly. AFVSS, Chronically ill, not as pleasant as before but overall stable Regular rate and rhythm, clear to auscultation bilaterally but diminished in the bases No edema change 1+ Assessment: Pseudomembranous colitis s/p colon resection w/diverting colostomy POD # 9 s/p VDRF following surgery Severe sepsis due to pneumonia completed Zosyn Severe congestive heart failure with very depressed systolic function of 20 percent uses LifeVest COPD Recent pneumonia Recent C. difficile colitis Overall debility requiring assisted placement just discharged Plan: Potassium supp to be maintained Pain meds Monitor closely C diff tx prognosis very guarded long-term Scribed by Bhargav Chase under the direct supervision of Dr. Urbano. OCTAVIO URBANO DO Dec 28, 2016 10:43
--- NOTE | 2016-12-28 11:38 | Occupational Ther Daily Note ---
OT Current Status-Daily Note Subjective Pt. does not report pain, but reports discouragement due to having stomach incision drain. Appearance Pt. in bed. Agrees to get up for OT. Begins to transfer to side of bed. Pt. notes that he has seeped through bandage on stomach area. Pt. lays back down and it is noted that pt's colostomy bag has leaked out onto incision. Notified nursing immediately and they cleaned wound and changed colostomy and dressings. Mental Status/Objective Patient Orientation: Person, Place, Time, Situation Functional [place] Measure 0=Not Assessed/NA 4=Minimal Assistance 1=Total Assistance 5=Supervision or Setup 2=Maximal Assistance 6=Modified [place] 3=Moderate Assistance 7=Complete [place] Attachments: Colostomy/Ileostomy, IV ADL-Treatment Functional [place] Measure 0=Not Assessed/NA 4=Minimal Assistance 1=Total Assistance 5=Supervision or Setup 2=Maximal Assistance 6=Modified [place] 3=Moderate Assistance 7=Complete IndependenceIRFPAI Quality Coding Scale 6 Independent with activity with or without an assistive device 5 Patient requires set up or clean up by helper. Patient completes activity by themselves 4 Supervision or touching assist (CGA). [place] provide cues , steadying assist 3 The helper provides less than half the effort to complete the activity 2 The helper provides more than half the effort to complete the activity 1 Dependent. The helper does all the effort to complete an activity 7 Patient refused to complete or attempt activity 9 The patient did not perform the activity before the current illness or injury 88 Not attempted due to Medical conditions or safety concerns Grooming (FIM): 5 (Pt. able to brush hair with set up.) Bathing (FIM): 3 (Due to time constraints, pt. bathed supine in bed. Able to wash chest, arms, and front shailesh area. OT washed bilateral legs, feet, and rear shailesh area. Lotion applied to bilateral feet and back.) Pt. practiced rolling in bed side to side. Able to do this with increased time needed. Pt. also able to initiate bathing tasks. Declines putting on any clothing due to incision and drainage issues. Pt. verbalizes frustration at "not knowing what is going on" with his incision, and why it is draining. OT looked at notes in computer and read to pt. surgeons note, and plan for healing and then colostomy reversal. Pt. seems to feel better about knowing what the plan is. Pt. requires increased time for all tasks. Requires time to process what is asked of him before each transfer, and then to transfer. Other Treatment Pt. is issued and educated on adaptive equipment to assist with LE bathing and dressing. Verbalizes understanding. Will practice at next ADL session. Education OT Patient Education: Correct positioning, Exercise program, Modified ADL techniques, Progress toward Goal/Update tx plan, Purpose of tx/functional activities, Reviewed precautions, Rehab process, Transfer techniques Teaching Recipient: Patient Teaching Methods: Demonstration, Discussion Response to Teaching: Verbalize Understanding, Return Demonstration OT Short Term Goals Short Term Goals Time Frame: Jan 04, 2017 Eating(FIM): 5 Grooming(FIM): 5 Bathing(FIM): 4 Upper Body Dressing(FIM): 4 Lower Body Dressing(FIM): 4 Toileting(FIM): 4 Transfers (B,C,W/C) (FIM): 4 Toilet/Commode Transfer(FIM): 5 Shower Transfer(FIM): 5 Additional Short Term Goals: 1-Demonstrate ADL Tasks, 2-Verbalize Understanding , 3-ImproveStrength/Juli 1=Demonstrate adherence to instructed precautions during ADL tasks. 2=Patient will verbalize/demonstrate understanding of assistive devices/ modifications for ADL. 3=Patient will improve strength/tolerance for activity to enable patient to perform ADL's. OT Scale Mechanic Goals Penitentiary Goals Time Frame: January 18, 2017 Eating (FIM): 6 Eating (QC): 6 Groomin Oral Hygiene (QC): 6 Bathing(FIM): 5 Shower/Bathe Self (QC): 5 Upper Body Dressing(FIM): 6 Upper Body Dressing (QC): 6 Lower Body Dressing(FIM): 6 Lower Body Dressing (QC): 6 On/Off Footwear (QC): 6 Toileting(FIM): 6 Toileting Hygiene (QC): 6 Transfers (B,C,W/C) (FIM): 6 Toilet/Commode Transfer(FIM): 6 Toilet/Commode Transfer (QC): 6 Shower Transfer(FIM): 5 Additional Goals: 1-Demonstrate ADL Tasks, 2-Verbalize Understanding, 3- ImproveStrength/Juli 1=Demonstrate adherence to instructed precautions during ADL tasks. 2=Patient will verbalize/demonstrate understanding of assistive devices/ modifications for ADL. 3=Patient will improve strength/tolerance for activity to enable patient to perform ADL's. OT Education/Plan Problem List/Assessment Assessment: Decreased Activ Tolerance, Decreased UE Strength, Dependent Transfers, Impaired Bed Mobility, Impaired Funct Balance, Impaired I ADL's, Impaired Self-Care Skills, Restricted Funct UE ROM Discharge Recommendations Plan/Recommendations: Continue POC Therapy D/C Recommendations: Home w/ Family Support, Occupational Therapy Home Care, Scheduled Assistance Treatment Plan/Plan of Care Treatment,Training & Education: Yes Patient would benefit from OT for education, treatment and training to promote independence in ADL's, mobility, safety and/or upper extremity function for ADL' s. Plan of Care: ADL Retraining, Caregiver Training, Functional Mobility, Group Exercise/Act as Ind, UE Funct Exercise/Act Treatment Duration: January 18, 2017 Visits Per Week: 10-12 Minutes/Day (M-F): 60-90 Minutes/Day (Sat/Ferrara): prn Agreement: Yes Rehab Potential: Fair Time/GCodes Start Time: 10:15 Stop Time: 11:15 Total Time Billed (hr/min): 60 Billed Treatment Time 1, ADL x 4 JENNI OSBORN OT Dec 28, 2016 11:38
--- NOTE | 2016-12-28 11:48 | PM & R (SOAP) Progress Note ---
Subjective Subjective/Events-last exam Patient was seen in HIS ROOM THIS am hAS LARGE DRESSING OVER ABDOMEN DUE TO CONTINUED DRAINAGE sERUM aLBUMIN QUITE LOW wILL ASK sURGER TO SEE cUENT LABS AND THERAPY NOTES REVIEWED. aPPRECIATE dR MCCAIN NOTE AND ORDERS Review of Systems Gastrointestinal: Other (DRAINAGE PER ABOVE) Objective Exam Last Set of Vital Signs Vital Signs Date Time Temp Pulse Resp B/P (MAP) Pulse Ox O2 Delivery O2 Flow Rate FiO2 12/28/16 09:00 Nasal Cannula 2.00 12/28/16 06:25 91 12/28/16 05:00 98.8 96 20 93/53 Capillary Refill : I&O Intake and Output 12/28/16 00:00 Intake Total 1280 ml Output Total 825 ml Balance 455 ml Intake Oral 1280 ml Output Urine Total 700 ml Stool Total 125 ml # Voids 3 General: Alert, Oriented X3, Cooperative, No Acute Distress HEENT: Atraumatic, PERRLA, EOMI, Mucous Memb Moist/[place] Neck: Supple, No JVD Lungs: Clear to Auscultation Heart: Regular Rate Abdomen: Normal Bowel Sounds, Soft, No Tenderness, Other (dressing saturated from drainage) Extremities: Other (trace edema) Neuro: Normal Speech, Cranial Nerves 3-12 NL Psych/Mental Status: Mental Status NL Results Lab Laboratory Tests 12/26/16 06:00: White Blood Count 15.4H, Red Blood Count 3.10L, Hemoglobin 8.2L, Hematocrit 27L , Mean Corpuscular Volume 88, Mean Corpuscular Hemoglobin 27, Mean Corpuscular Hemoglobin Concent 30L, Red Cell Distribution Width 19.9H, Platelet Count 421H, Mean Platelet Volume 9.8, Sodium Level 141, Potassium Level 3.7, Chloride Level 105, Carbon Dioxide Level 31, Anion Gap 5, Blood Urea Nitrogen 3L, Creatinine 0.70, Estimat Glomerular Filtration Rate > 60, BUN/Creatinine Ratio 4, Glucose Level 73, Calcium Level 7.2L, Magnesium Level 1.5L 12/28/16 06:30: White Blood Count 12.3H, Red Blood Count 3.00L, Hemoglobin 8.0L, Hematocrit 27L , Mean Corpuscular Volume 89, Mean Corpuscular Hemoglobin 27, Mean Corpuscular Hemoglobin Concent 30L, Red Cell Distribution Width 20.2H, Platelet Count 478H, Mean Platelet Volume 9.7, Sodium Level 141, Potassium Level 3.8, Chloride Level 102, Carbon Dioxide Level 34H, Anion Gap 5, Blood Urea Nitrogen 4L, Creatinine 0.71, Estimat Glomerular Filtration Rate > 60, BUN/Creatinine Ratio 6, Glucose Level 74, Calcium Level 7.4L, Neutrophils (%) (Auto) 64, Lymphocytes (%) (Auto) 24, Monocytes (%) (Auto) 9, Eosinophils (%) (Auto) 2, Basophils (%) (Auto) 1, Neutrophils # (Auto) 7.9H, Lymphocytes # (Auto) 3.0, Monocytes # (Auto) 1.1H, Eosinophils # (Auto) 0.3, Basophils # (Auto) 0.1, Total Bilirubin 0.2, Aspartate Amino Transf (AST/SGOT) 14, Alanine Aminotransferase (ALT/SGPT) 6, Alkaline Phosphatase 62, Total Protein 4.4L, Albumin 1.6L Assessment/Plan Assessment general debil s/p sepsis secondary to 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 Recheck labs in AM see orders tEAM cONFERENCE TO BE HELD LATER TODAY sEE REPORT FOR FULL FUNCTIONAL UPDATE AND poc AND NATALIYA Bell MD Dec 28, 2016 11:48
[2016-12-28 12:38] VITALS: BP 116/70
[2016-12-28] MEDS: ENOXAPARIN 40 MG/0.4 ML (LOVENOX) SYR SC SCH (13:01)
--- NOTE | 2016-12-28 14:45 | Therapy Group Daily Note ---
Therapy Daily Group Note Patient Education Topic Other List Below (rehab process, Modes and techniques of TRFs) Exercises Other (w/c push ups) Other/Notes Pt. attended group PT OT session . Pt. came and went via w/c. Pt. was social sharing his name and residence as well as " words of wisdom for a 21 yr old" . Pt. was attentive and participated in education RE: TRFs: scooting, rolling, supine to side to sit as well as SPTs and demo of frequently used equipment. Pt. returned to room with assist to bed and coelho at hand. Start Time: 13:00 Stop Time: 14:15 Total Billed Treatment Time: 75 Total Billed Treatment 1,GRP ANAHI SEWELL ASSEMBLER TRIM Dec 28, 2016 14:45
[2016-12-28 17:35] VITALS: BP 131/80
[2016-12-28] MEDS: ATORVASTATIN 40 MG (LIPITOR) TABLET PO SCH (21:18)
[2016-12-29] MEDS: HYDROcodone/APAP 10 MG/325 MG (LORTAB) TAB PO PRN ×2 (03:08→09:21)
[2016-12-29] MEDS: ONDANSETRON 4 MG/2 ML (SDV) Z0FRAN IV PRN ×2 (03:14→20:29)
[2016-12-29 06:00] VITALS: BP 103/69
[2016-12-29] MEDS: LEVOTHYROXINE 100 MCG (LEVOTHROID) TAB PO SCH (06:47)
[2016-12-29] MEDS: CALCIUM CARBONATE 600 MG (CALCARB) TAB PO SCH (06:47)
[2016-12-29] MEDS: LEVOTHYROXINE 75 MCG (LEVOTHROID) TABLET PO SCH (06:47)
[2016-12-29] MEDS: PANTOPRAZOLE 40 MG (PROTONIX) TAB PO SCH (06:48)
[2016-12-29] MEDS: morphine ER 30 MG (MS CONTIN) TAB PO SCH ×3 (06:48→21:45)
[2016-12-29] MEDS: FUROSEMIDE 20 MG (LASIX) TAB PO SCH (09:21)
[2016-12-29] MEDS: MAGNESIUM OXIDE (MAG-OX)400 MG TAB PO SCH ×2 (09:21→18:19)
[2016-12-29] MEDS: SACUBITRIL/VALSARTAN 24/26 MG (ENTRESTO) TABLET PO SCH ×2 (09:21→20:30)
[2016-12-29] MEDS: KCL 10 MEQ TAB (MICRO K) PO SCH ×2 (09:21→20:30)
[2016-12-29] MEDS: ASPIRIN E.C. 81 MG (ECOTRIN) TAB PO SCH (09:21)
[2016-12-29] MEDS: CARVEDILOL 3.125 MG (COREG) TABLET PO SCH ×2 (09:21→21:00)
--- NOTE | 2016-12-29 09:40 | Cardiology Progress Note ---
Subjective Subjective/Events-last exam patient is laying down in bed, feeling better, still having some discharge around the surgical site. Review of Systems General: No Chills, No Night Sweats, No Fatigue, No Malaise, No Appetite, No Other HEENT: No Head Aches, No Visual Changes, No Eye Pain, No Ear Pain, No Dysphasia , No Sinus Congestion, No Post Nasal Drip, No Sore Throat, No Other Pulmonary: No Dyspnea, No Cough, No Pleuritic Chest Pain, No Other Cardiovascular: No: Chest Pain, Edema, Lt Headedness, Orthopnea, Other, Palpitations, Paroxysmal Noc. Dyspnea Objective-Cardiology Exam Last Set of Vital Signs Vital Signs 12/28/16 12/29/16 09:00 06:00 Temp 98.6 Pulse 89 Resp 18 B/P (MAP) 103/69 Pulse Ox 91 O2 Delivery Room Air O2 Flow Rate 2.00 Capillary Refill : I&O Intake and Output 12/29/16 00:00 Intake Total 1400 ml Output Total 1450 ml Balance -50 ml Intake Oral 1300 ml IV Total 100 ml Output Urine Total 1200 ml Stool Total 250 ml General: Alert, Oriented X3, Cooperative, No Acute Distress HEENT: Atraumatic, PERRLA, EOMI, Mucous Memb Moist/[place] Neck: Supple, No JVD Lungs: Clear to Auscultation Heart: Regular Rate Abdomen: Normal Bowel Sounds, Soft, No Tenderness, Other (dressing saturated from drainage) Extremities: Other (trace edema) Neuro: Normal Speech, Cranial Nerves 3-12 NL Psych/Mental Status: Mental Status NL A/P-Cardiology Admission Diagnosis C. difficile colitis Sepsis CHF PVD Assessment/Plan C. difficile colitis, status post extended left hemicolectomy with Pam procedure, recovering slowly, Followed by Dr Jaime Short of breath, Reporting improvement. Continue to monitor. Anemia, Hgb 8.0, continue to monitor H&H closely. Hypokalemia, hypomagnesemia, replaced, continue to monitor. Peripheral edema, started back on Lasix, tolerating it well. Continue to monitor Congestive heart failure, nonischemic cardiomyopathy, acute on chronic left ventricular systolic dysfunction with most recent ejection fraction improved to 50 percent. Maintained on beta gurpreet and Entresto. Status post anoxic encephalopathy and pneumonia and sepsis early in October, improved with aggressive therapy. Back to his baseline. Continue to monitor. Status post acute renal failure. Improved, monitor renal function closely Peripheral vascular disease with history of nonhealing wounds bilaterally. Peripheral angiogram done 12/04/16 revealed moderate atherosclerotic disease on the left lower extremity, the anterior tibial artery is severely diseased on the left lower extremity but the ulcer on the left lower extremity has healed. Medical therapy is recommended. Moderate disease of the right lower extremity with good flow, with three-vessel flow down to the foot. Continue medical management at this time and continue to monitor. Small infrarenal abdominal aortic aneurysm noted during peripheral angiogram. Continue to monitor Hypertension,controlled. Continue to monitor blood pressure. Hyperlipidemia, continue to hold statin. Hyperthyroidism, history of hypothyroidism and Levothroid, managed by primary care physician History of pulmonary hypertension, continue to monitor History of rheumatoid arthritis. COPD, managed and followed by primary care physician Tobaccoism, patient has stopped smoking after the last admission. Encouraged to continue with smoking cessation History of chronic narcotic use, urine drug screen is positive for opioids Clinical Quality Measures DVT/VTE Risk/Contraindication: Risk Factor Score Per Nursin RFS Level Per Nursing on Admit: 4+=Very High TORY HALL MD Dec 29, 2016 9:40 am
--- NOTE | 2016-12-29 09:53 | Physical Therapy Daily Note ---
PT Daily Note-Current Subjective Pt laying supine in bed upon arrival. Pt reports having a couple episode of drainage yesterday afternoon. Dr Andrew visited with pt at beginning of tx and advised with have Dr Jaime check on pt. Pt agreed to limited PT to prevent drainage leaks again. Pain Numeric Pain Scale: 10-Worst Possible Pain Location: Incisional Location Body Site: Abdomen Pain Description: Sharp Comment: Pain at 8/10 and achy but will increase to 10/10 and sharp with movement Mental Status Patient Orientation: Person, Place, Time, Situation Attachments: Colostomy/Ileostomy Transfers Functional [place] Measure 0=Not Assessed/NA 4=Minimal Assistance 1=Total Assistance 5=Supervision or Setup 2=Maximal Assistance 6=Modified [place] 3=Moderate Assistance 7=Complete IndependenceIRFPAI Quality Coding Scale 6 Independent with activity with or without an assistive device 5 Patient requires set up or clean up by helper. Patient completes activity by themselves 4 Supervision or touching assist (CGA). [place] provide cues , steadying assist 3 The helper provides less than half the effort to complete the activity 2 The helper provides more than half the effort to complete the activity 1 Dependent. The helper does all the effort to complete an activity 7 Patient refused to complete or attempt activity 9 The patient did not perform the activity before the current illness or injury 88 Not attempted due to Medical conditions or safety concerns Exercises Supine Ex: Ankle pumps, Quad Set, Glut sets, Heel Slides, Straight leg raise, Hip abd/add Supine Reps: 20 (2 sets of each with rest breaks between each) Treatments Pt informs PT of drainage episodes yesterday. Pt reports draining has happened after sitting up in [facility], walking, Ex, etc. so PT focused on Supine Ex in bed and proper positioning. Pt performed 1 set of Ex before Dr Jaime arrived to visit with pt about suturing abdomen to help with drainage. will be back in approx. 1 hr to suture in room. Pt completed another set of EX before end of tx. Pt is left with all needs met at end of tx. Assessment Current Status: Fair Progress Pt is motivated for tx but is anxious about drainage and healing of incision. Pt completes Supine Ex independently although fatigues easy and needs rest breaks. PT Short Term Goals Short Term Goals Time Frame: Jan 04, 2017 Transfers (B,C,W/C) (FIM): 4 Gait (FIM): 2 Distance (FIM): 5=192-73 ft Gait Assistive Device: FWW Wheelchair Distance: 100' x 2 Stairs (FIM): 2 # of Steps: 4 PT Farm Machinery Assembler Goals Chcf Goals PT [facility]cf Goals Time Frame: January 18, 2017 Transfers (B,C,W/C) (FIM): 6 Sit to Lying (QC): 6 Lying-Sitting on Side/Bed(QC): 6 Sit to Stand (QC): 6 Rollin Roll Left to Right (QC): 6 Chair/[id number] Xfer(QC): 6 Car Transfer (QC): 5 Does the Patient Walk: Yes Gait (FIM): 5 Gait distance (FIM): 2=920-57 ft Walk 10 feet (QC): 5 Walk 10ft-Uneven Surface(QC): 5 Walk 50ft with 2 Turns (QC): 5 Walk 150 ft (QC): 88 Gait Assistive Device: FWW Does the Pt use WC or Scooter?: Yes Wheelchair (FIM): 6 Wheelchair distance (FIM): 3=150 ft Wheel 50 feet with 2 turns (QC: 6 Stairs (FIM): 2 # of Steps: 4 1 Step (curb) (QC): 5 4 Steps (QC): 5 12 Steps (QC): 88 Picking up an Object (QC): 88 PT Plan Problem List Problem List: Activity Tolerance, Functional Strength, Safety, Balance, Gait, Transfer, Bed Mobility Treatment/Plan Treatment Plan: Continue Plan of Care Treatment Plan: Bed Mobility, Education, Functional Activity Juli, Functional Strength, Group Therapy, Gait, Safety, Therapeutic Exercise, Transfers Treatment Duration: January 18, 2017 Visits Per Week: 10-15 Minutes/Day (M-F): 60-90 Minutes/Day (Sat/[place]): prn Safety Risks/Education Patient Education: Reviewed Precautions, Correct Positioning, Safety Issues Teaching Recipient: Patient Teaching Methods: Discussion Response to Teaching: Verbalize Understanding Time/GCodes Time In: 930 Time Out: 1030 Total Billed Treatment Time: 60 Total Billed Treatment visit, EX X3 (45m) & FA (15m) JEFFREY COOK CHOPPING MACHINE OPERATOR Dec 29, 2016 09:53
--- NOTE | 2016-12-29 11:39 | Procedure Note ---
Procedure Note Vital Signs Vital Signs Date Time Temp Pulse Resp B/P (MAP) Pulse Ox O2 Delivery O2 Flow Rate FiO2 12/29/16 09:00 Room Air 12/29/16 06:00 98.6 89 18 103/69 91 12/28/16 09:00 2.00 Procedure Note Pt was seen and examined, he continues to have clear drainage (most likely serous) from midline wound. Most likely due to dehiscence of fascia and worsened by his Hypoalbuminemia. I discussed with him attempting to close small skin openings with suture. In an attempt to stop the leakage; he agreed. In his bed, after prepping skin with alcohol. Three sutures were placed; 3-0 Nylon. Closing 3 small (2-3mm) skin openings. Pt tolerated the procedure well. Diet increased to regular and Ensure high protein written for. NATALIYA BOSWELL DO Dec 29, 2016 11:39
--- NOTE | 2016-12-29 11:51 | Occupational Ther Daily Note ---
OT Current Status-Daily Note Subjective Pt. states that he is having cramps in his stomach region. Appearance Pt. is in bed. States that he did not sleep very well. States, "I sprung a leak" talking about his stomach. Agrees to work with OT. Mental Status/Objective Patient Orientation: Person, Place Functional [place] Measure 0=Not Assessed/NA 4=Minimal Assistance 1=Total Assistance 5=Supervision or Setup 2=Maximal Assistance 6=Modified [place] 3=Moderate Assistance 7=Complete [place] ADL-Treatment Functional [place] Measure 0=Not Assessed/NA 4=Minimal Assistance 1=Total Assistance 5=Supervision or Setup 2=Maximal Assistance 6=Modified [place] 3=Moderate Assistance 7=Complete IndependenceIRFPAI Quality Coding Scale 6 Independent with activity with or without an assistive device 5 Patient requires set up or clean up by helper. Patient completes activity by themselves 4 Supervision or touching assist (CGA). [place] provide cues , steadying assist 3 The helper provides less than half the effort to complete the activity 2 The helper provides more than half the effort to complete the activity 1 Dependent. The helper does all the effort to complete an activity 7 Patient refused to complete or attempt activity 9 The patient did not perform the activity before the current illness or injury 88 Not attempted due to Medical conditions or safety concerns Eating (FIM): 5 (set up) Eating (QC): 5 Bathing (FIM): 4 (Min assist to wash rear shailesh area only. Pt. able to utilize LH sponge to wash feet and LE.) Shower/Bathe Self (QC): 4 Lower Body Dressing (FIM): 4 (Pt. able to don socks this date using the sock aide with min assist needed. States, "I will need this when I go [place].") Lower Body Dressing (QC): 4 On/Off Footwear (QC): 4 Transfers (B, C, W/C) (FIM): 5 (SBA supine-sit, and sit-stand.) Other Treatment Pt. able to transfer to side of bed to participate in bathing/dressing. Declines putting on clothing as he has continually soaked stomach bandages. Pt. 's bandages wet again and after transferring back to supine with SBA, nursing changed dressings. Pt. requires increased time for every task. States that he is having cramping this date. After bandages changed, pt. participated in UE exercises. Completed 20 bilateral hand sponges, 3 bilateral UE exercises x red theraband x 15 reps each, and 2 dumbbell exercises x 2 lbs. x 15 reps each in all planes. All needs met in room. Education OT Patient Education: Correct positioning, Exercise program, Modified ADL techniques, Progress toward Goal/Update tx plan, Purpose of tx/functional activities, Reviewed precautions, Rehab process, Transfer techniques Teaching Recipient: Patient Teaching Methods: Demonstration, Discussion Response to Teaching: Verbalize Understanding, Return Demonstration OT Short Term Goals Short Term Goals Time Frame: Jan 04, 2017 Eating(FIM): 5 Grooming(FIM): 5 Bathing(FIM): 4 Upper Body Dressing(FIM): 4 Lower Body Dressing(FIM): 4 Toileting(FIM): 4 Transfers (B,C,W/C) (FIM): 4 Toilet/Commode Transfer(FIM): 5 Shower Transfer(FIM): 5 Additional Short Term Goals: 1-Demonstrate ADL Tasks, 2-Verbalize Understanding , 3-ImproveStrength/Juli 1=Demonstrate adherence to instructed precautions during ADL tasks. 2=Patient will verbalize/demonstrate understanding of assistive devices/ modifications for ADL. 3=Patient will improve strength/tolerance for activity to enable patient to perform ADL's. OT Post Acute Care Registered Nurse Goals [facility] Goals Time Frame: January 18, 2017 Eating (FIM): 6 Eating (QC): 6 Groomin Oral Hygiene (QC): 6 Bathing(FIM): 5 Shower/Bathe Self (QC): 5 Upper Body Dressing(FIM): 6 Upper Body Dressing (QC): 6 Lower Body Dressing(FIM): 6 Lower Body Dressing (QC): 6 On/Off Footwear (QC): 6 Toileting(FIM): 6 Toileting Hygiene (QC): 6 Transfers (B,C,W/C) (FIM): 6 Toilet/Commode Transfer(FIM): 6 Toilet/Commode Transfer (QC): 6 Shower Transfer(FIM): 5 Additional Goals: 1-Demonstrate ADL Tasks, 2-Verbalize Understanding, 3- ImproveStrength/Juli 1=Demonstrate adherence to instructed precautions during ADL tasks. 2=Patient will verbalize/demonstrate understanding of assistive devices/ modifications for ADL. 3=Patient will improve strength/tolerance for activity to enable patient to perform ADL's. OT Education/Plan Problem List/Assessment Assessment: Decreased Activ Tolerance, Decreased UE Strength, Dependent Transfers, Impaired Bed Mobility, Impaired I ADL's, Impaired Self-Care Skills, Restricted Funct UE ROM Discharge Recommendations Plan/Recommendations: Continue POC Therapy D/C Recommendations: Home w/ Family Support, Occupational Therapy Home Care Treatment Plan/Plan of Care Treatment,Training & Education: Yes Patient would benefit from OT for education, treatment and training to promote independence in ADL's, mobility, safety and/or upper extremity function for ADL' s. Plan of Care: ADL Retraining, Caregiver Training, Functional Mobility, Group Exercise/Act as Ind, UE Funct Exercise/Act Treatment Duration: January 18, 2017 Visits Per Week: 10-12 Minutes/Day (M-F): 60-90 Minutes/Day (Sat/[place]): prn Agreement: Yes Rehab Potential: Fair Time/GCodes Start Time: 08:15 Stop Time: 09:15 Total Time Billed (hr/min): 60 Billed Treatment Time 1, ADL x 45minutes, Ex x 15minutes JENNI OSBORN OT Dec 29, 2016 11:51
--- NOTE | 2016-12-29 14:19 | PM & R (SOAP) Progress Note ---
Subjective Subjective/Events-last exam Patient was seen in his room this AM DR Jaime in to see patient this AM RN reports that he will remove анна tomorrow Patient still with significant drainage Will see if Ese Teacher can see re nutritional supplement due to low Serum albumin Patient min assist for transfers Objective Exam Last Set of Vital Signs Vital Signs Date Time Temp Pulse Resp B/P (MAP) Pulse Ox O2 Delivery O2 Flow Rate FiO2 12/29/16 09:00 Room Air 12/29/16 06:00 98.6 89 18 103/69 91 12/28/16 09:00 2.00 Capillary Refill : I&O Intake and Output 12/29/16 00:00 Intake Total 1400 ml Output Total 1450 ml Balance -50 ml Intake Oral 1300 ml IV Total 100 ml Output Urine Total 1200 ml Stool Total 250 ml General: Alert, Oriented X3, Cooperative, No Acute Distress HEENT: Atraumatic, PERRLA, EOMI, Mucous Memb Moist/[place] Neck: Supple, No JVD Lungs: Clear to Auscultation Heart: Regular Rate Abdomen: Normal Bowel Sounds, Soft, No Tenderness, Other (dressing saturated from drainage) Extremities: Other (trace edema) Neuro: Normal Speech, Cranial Nerves 3-12 NL Psych/Mental Status: Mental Status NL Results Lab Laboratory Tests 12/28/16 06:30: White Blood Count 12.3H, Red Blood Count 3.00L, Hemoglobin 8.0L, Hematocrit 27L , Mean Corpuscular Volume 89, Mean Corpuscular Hemoglobin 27, Mean Corpuscular Hemoglobin Concent 30L, Red Cell Distribution Width 20.2H, Platelet Count 478H, Mean Platelet Volume 9.7, Neutrophils (%) (Auto) 64, Lymphocytes (%) (Auto) 24, Monocytes (%) (Auto) 9, Eosinophils (%) (Auto) 2, Basophils (%) (Auto) 1, Neutrophils # (Auto) 7.9H, Lymphocytes # (Auto) 3.0, Monocytes # (Auto) 1.1H, Eosinophils # (Auto) 0.3, Basophils # (Auto) 0.1, Sodium Level 141, Potassium Level 3.8, Chloride Level 102, Carbon Dioxide Level 34H, Anion Gap 5, Blood Urea Nitrogen 4L, Creatinine 0.71, Estimat Glomerular Filtration Rate > 60, BUN/ Creatinine Ratio 6, Glucose Level 74, Calcium Level 7.4L, Total Bilirubin 0.2, Aspartate Amino Transf (AST/SGOT) 14, Alanine Aminotransferase (ALT/SGPT) 6, Alkaline Phosphatase 62, Total Protein 4.4L, Albumin 1.6L Assessment/Plan Assessment general debil s/p sepsis secondary to 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 Dr Jaime to see tomorrow re staple removal Consult Ese Teacher re supplement NATALIYA KHANNA MD Dec 29, 2016 14:19
[2016-12-29] MEDS: ENOXAPARIN 40 MG/0.4 ML (LOVENOX) SYR SC SCH (14:44)
--- NOTE | 2016-12-29 15:03 | Occupational Ther Daily Note ---
OT Current Status-Daily Note Subjective Pt. in bed. States that he has tried to order his lunch, but that the new orders for a regular meal have not been put in yet. OT spoke with nursing. Nursing put in Dr's orders and pt. was able to order his own lunch. Appearance Pt. agreed to work with OT in room. Completed bilateral UE exercises at bed level. Mental Status/Objective Patient Orientation: Person, Place, Time, Situation Functional [place] Measure 0=Not Assessed/NA 4=Minimal Assistance 1=Total Assistance 5=Supervision or Setup 2=Maximal Assistance 6=Modified [place] 3=Moderate Assistance 7=Complete [place] ADL-Treatment Functional [place] Measure 0=Not Assessed/NA 4=Minimal Assistance 1=Total Assistance 5=Supervision or Setup 2=Maximal Assistance 6=Modified [place] 3=Moderate Assistance 7=Complete IndependenceIRFPAI Quality Coding Scale 6 Independent with activity with or without an assistive device 5 Patient requires set up or clean up by helper. Patient completes activity by themselves 4 Supervision or touching assist (CGA). [place] provide cues , steadying assist 3 The helper provides less than half the effort to complete the activity 2 The helper provides more than half the effort to complete the activity 1 Dependent. The helper does all the effort to complete an activity 7 Patient refused to complete or attempt activity 9 The patient did not perform the activity before the current illness or injury 88 Not attempted due to Medical conditions or safety concerns Other Treatment Pt. reports that surgeon applied more stitching to stomach area, to assist with leakage from suture area. Education OT Patient Education: Exercise program, Progress toward Goal/Update tx plan, Purpose of tx/functional activities, Reviewed precautions, Rehab process Teaching Recipient: Patient Teaching Methods: Demonstration, Discussion Response to Teaching: Verbalize Understanding, Return Demonstration OT Short Term Goals Short Term Goals Time Frame: Jan 04, 2017 Eating(FIM): 5 Grooming(FIM): 5 Bathing(FIM): 4 Upper Body Dressing(FIM): 4 Lower Body Dressing(FIM): 4 Toileting(FIM): 4 Transfers (B,C,W/C) (FIM): 4 Toilet/Commode Transfer(FIM): 5 Shower Transfer(FIM): 5 Additional Short Term Goals: 1-Demonstrate ADL Tasks, 2-Verbalize Understanding , 3-ImproveStrength/Juli 1=Demonstrate adherence to instructed precautions during ADL tasks. 2=Patient will verbalize/demonstrate understanding of assistive devices/ modifications for ADL. 3=Patient will improve strength/tolerance for activity to enable patient to perform ADL's. OT Detention Goals Qualification Engineer Goals Time Frame: January 18, 2017 Eating (FIM): 6 Eating (QC): 6 Groomin Oral Hygiene (QC): 6 Bathing(FIM): 5 Shower/Bathe Self (QC): 5 Upper Body Dressing(FIM): 6 Upper Body Dressing (QC): 6 Lower Body Dressing(FIM): 6 Lower Body Dressing (QC): 6 On/Off Footwear (QC): 6 Toileting(FIM): 6 Toileting Hygiene (QC): 6 Transfers (B,C,W/C) (FIM): 6 Toilet/Commode Transfer(FIM): 6 Toilet/Commode Transfer (QC): 6 Shower Transfer(FIM): 5 Additional Goals: 1-Demonstrate ADL Tasks, 2-Verbalize Understanding, 3- ImproveStrength/Juli 1=Demonstrate adherence to instructed precautions during ADL tasks. 2=Patient will verbalize/demonstrate understanding of assistive devices/ modifications for ADL. 3=Patient will improve strength/tolerance for activity to enable patient to perform ADL's. OT Education/Plan Problem List/Assessment Assessment: Decreased Activ Tolerance, Decreased UE Strength, Impaired Coordination, Impaired I ADL's, Impaired Self-Care Skills, Restricted Funct UE ROM Discharge Recommendations Plan/Recommendations: Continue POC Therapy D/C Recommendations: Home w/ Family Support, Occupational Therapy Home Care Treatment Plan/Plan of Care Treatment,Training & Education: Yes Patient would benefit from OT for education, treatment and training to promote independence in ADL's, mobility, safety and/or upper extremity function for ADL' s. Plan of Care: ADL Retraining, Caregiver Training, Functional Mobility, Group Exercise/Act as Ind, UE Funct Exercise/Act Treatment Duration: January 18, 2017 Visits Per Week: 10-12 Minutes/Day (M-F): 60-90 Minutes/Day (Sat/[place]): prn Agreement: Yes Rehab Potential: Fair Time/GCodes Start Time: 13:30 Stop Time: 14:00 Total Time Billed (hr/min): 30 Billed Treatment Time 1, EX x 2 JENNI OSBORN OT Dec 29, 2016 15:03
--- NOTE | 2016-12-29 15:29 | Physical Therapy Daily Note ---
PT Daily Note-Current Subjective Pt is finishing with OT and is supine in bed upon arrival. Pt agrees to PT although informs PT that just ordered lunch because it hadn't been ordered as he thought it had been. Pain Numeric Pain Scale: 5-Moderate Pain Location: Incisional Location Body Site: Abdomen Pain Description: Ache Mental Status Patient Orientation: Person, Place, Time, Situation Attachments: Colostomy/Ileostomy Transfers Functional [place] Measure 0=Not Assessed/NA 4=Minimal Assistance 1=Total Assistance 5=Supervision or Setup 2=Maximal Assistance 6=Modified [place] 3=Moderate Assistance 7=Complete IndependenceIRFPAI Quality Coding Scale 6 Independent with activity with or without an assistive device 5 Patient requires set up or clean up by helper. Patient completes activity by themselves 4 Supervision or touching assist (CGA). [place] provide cues , steadying assist 3 The helper provides less than half the effort to complete the activity 2 The helper provides more than half the effort to complete the activity 1 Dependent. The helper does all the effort to complete an activity 7 Patient refused to complete or attempt activity 9 The patient did not perform the activity before the current illness or injury 88 Not attempted due to Medical conditions or safety concerns Exercises Supine Ex: Ankle pumps, Quad Set, Glut sets, Heel Slides, Straight leg raise, Hip abd/add Supine Reps: 15 Treatments Pt completes Supine EX with rest breaks and while trying to eat lunch in the process. Pt is left supine in bed with head raised to finish lunch with all needs met at end of tx. Assessment Current Status: Fair Progress Pt reports less pain and no increase with activity as pt did this morning. Pt still needs frequent rest breaks due to fatigue. PT Short Term Goals Short Term Goals Time Frame: Jan 04, 2017 Transfers (B,C,W/C) (FIM): 4 Gait (FIM): 2 Distance (FIM): 2=495-04 ft Gait Assistive Device: FWW Wheelchair Distance: 100' x 2 Stairs (FIM): 2 # of Steps: 4 PT Care Home Goals [place] Cleaner Goals PT Care Home Goals Time Frame: January 18, 2017 Transfers (B,C,W/C) (FIM): 6 Sit to Lying (QC): 6 Lying-Sitting on Side/Bed(QC): 6 Sit to Stand (QC): 6 Rollin Roll Left to Right (QC): 6 Chair/Wpl-ec-Lyvvn Xfer(QC): 6 Car Transfer (QC): 5 Does the Patient Walk: Yes Gait (FIM): 5 Gait distance (FIM): 4=837-11 ft Walk 10 feet (QC): 5 Walk 10ft-Uneven Surface(QC): 5 Walk 50ft with 2 Turns (QC): 5 Walk 150 ft (QC): 88 Gait Assistive Device: FWW Does the Pt use WC or Scooter?: Yes Wheelchair (FIM): 6 Wheelchair distance (FIM): 3=150 ft Wheel 50 feet with 2 turns (QC: 6 Stairs (FIM): 2 # of Steps: 4 1 Step (curb) (QC): 5 4 Steps (QC): 5 12 Steps (QC): 88 Picking up an Object (QC): 88 PT Plan Problem List Problem List: Activity Tolerance, Functional Strength, Safety, Balance, Gait, Transfer, Bed Mobility Treatment/Plan Treatment Plan: Continue Plan of Care Treatment Plan: Bed Mobility, Education, Functional Activity Juli, Functional Strength, Group Therapy, Gait, Safety, Therapeutic Exercise, Transfers Treatment Duration: January 18, 2017 Visits Per Week: 10-15 Minutes/Day (M-F): 60-90 Minutes/Day (Sat/F[place]ara): prn Safety Risks/Education Patient Education: Transfer Techniques, Correct Positioning, Safety Issues Teaching Recipient: Patient Teaching Methods: Discussion Response to Teaching: Verbalize Understanding Time/GCodes Time In: 1400 Time Out: 1430 Total Billed Treatment Time: 30 Total Billed Treatment visit, EX (20m) & FA (10m) JEFFREY COOK PTA Dec 29, 2016 15:29
[2016-12-29 18:24] VITALS: BP 97/65
[2016-12-29] MEDS: ATORVASTATIN 40 MG (LIPITOR) TABLET PO SCH (20:29)
[2016-12-30] MEDS: HYDROcodone/APAP 10 MG/325 MG (LORTAB) TAB PO PRN (01:05)
[2016-12-30 05:00] VITALS: BP 94/60
[2016-12-30] MEDS: LEVOTHYROXINE 100 MCG (LEVOTHROID) TAB PO SCH (06:21)
[2016-12-30] MEDS: PANTOPRAZOLE 40 MG (PROTONIX) TAB PO SCH (06:21)
[2016-12-30] MEDS: LEVOTHYROXINE 75 MCG (LEVOTHROID) TABLET PO SCH (06:21)
[2016-12-30] MEDS: CALCIUM CARBONATE 600 MG (CALCARB) TAB PO SCH (06:21)
[2016-12-30] MEDS: morphine ER 30 MG (MS CONTIN) TAB PO SCH ×3 (06:22→21:41)
[2016-12-30] MEDS: SACUBITRIL/VALSARTAN 24/26 MG (ENTRESTO) TABLET PO SCH ×2 (08:16→20:28)
[2016-12-30] MEDS: ASPIRIN E.C. 81 MG (ECOTRIN) TAB PO SCH (08:16)
[2016-12-30] MEDS: CARVEDILOL 3.125 MG (COREG) TABLET PO SCH ×2 (08:16→20:27)
[2016-12-30] MEDS: MAGNESIUM OXIDE (MAG-OX)400 MG TAB PO SCH ×2 (08:16→17:33)
[2016-12-30] MEDS: FUROSEMIDE 20 MG (LASIX) TAB PO SCH (08:16)
[2016-12-30] MEDS: KCL 10 MEQ TAB (MICRO K) PO SCH ×2 (08:16→20:27)
--- NOTE | 2016-12-30 08:41 | PM & R (SOAP) Progress Note ---
Subjective Subjective/Events-last exam Patient was seen in his room this AM Appreciate DR Guerrier note Abdominal drainage has decreased Patient min assist for lower body dressing Objective Exam Last Set of Vital Signs Vital Signs Date Time Temp Pulse Resp B/P (MAP) Pulse Ox O2 Delivery O2 Flow Rate FiO2 12/30/16 07:14 93 2.00 12/30/16 05:00 98.0 94 18 94/60 Nasal Cannula Capillary Refill : I&O Intake and Output 12/30/16 00:00 Intake Total 1070 ml Output Total 1900 ml Balance -830 ml Intake Oral 1070 ml Output Urine Total 1500 ml Stool Total 400 ml General: Alert, Oriented X3, Cooperative, No Acute Distress HEENT: Atraumatic, PERRLA, EOMI, Mucous Memb Moist/[place] Neck: Supple, No JVD Lungs: Clear to Auscultation Heart: Regular Rate Abdomen: Normal Bowel Sounds, Soft, No Tenderness, Other (dressing saturated from drainage) Extremities: Other (trace edema) Neuro: Normal Speech, Cranial Nerves 3-12 NL Psych/Mental Status: Mental Status NL Results Lab Laboratory Tests 12/28/16 06:30: White Blood Count 12.3H, Red Blood Count 3.00L, Hemoglobin 8.0L, Hematocrit 27L , Mean Corpuscular Volume 89, Mean Corpuscular Hemoglobin 27, Mean Corpuscular Hemoglobin Concent 30L, Red Cell Distribution Width 20.2H, Platelet Count 478H, Mean Platelet Volume 9.7, Neutrophils (%) (Auto) 64, Lymphocytes (%) (Auto) 24, Monocytes (%) (Auto) 9, Eosinophils (%) (Auto) 2, Basophils (%) (Auto) 1, Neutrophils # (Auto) 7.9H, Lymphocytes # (Auto) 3.0, Monocytes # (Auto) 1.1H, Eosinophils # (Auto) 0.3, Basophils # (Auto) 0.1, Sodium Level 141, Potassium Level 3.8, Chloride Level 102, Carbon Dioxide Level 34H, Anion Gap 5, Blood Urea Nitrogen 4L, Creatinine 0.71, Estimat Glomerular Filtration Rate > 60, BUN/ Creatinine Ratio 6, Glucose Level 74, Calcium Level 7.4L, Total Bilirubin 0.2, Aspartate Amino Transf (AST/SGOT) 14, Alanine Aminotransferase (ALT/SGPT) 6, Alkaline Phosphatase 62, Total Protein 4.4L, Albumin 1.6L Assessment/Plan Assessment general debil s/p sepsis secondary to 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 Dr Jaime has seen re stalpe removal and suturing drainage area Consult Maintenance Mechanic Telephone re supplement NATALIYA KHANNA MD Dec 30, 2016 08:41
--- NOTE | 2016-12-30 10:06 | Physical Therapy Daily Note ---
PT Daily Note-Current Subjective Pt. agrees to Rx. Explains his long history of RA and that he has trouble wt bearing on to bilat wrists . Pt. agrees to Rx. Tells that he has managed better with abdominal wound since Dr Jaime put some stitches in the opening. Pain Numeric Pain Scale: 4 Location: Right Location Body Site: Knee Pain Description: Radiating Mental Status Patient Orientation: Normal For Age Transfers Functional [place] Measure 0=Not Assessed/NA 4=Minimal Assistance 1=Total Assistance 5=Supervision or Setup 2=Maximal Assistance 6=Modified [place] 3=Moderate Assistance 7=Complete IndependenceIRFPAI Quality Coding Scale 6 Independent with activity with or without an assistive device 5 Patient requires set up or clean up by helper. Patient completes activity by themselves 4 Supervision or touching assist (CGA). [place] provide cues , steadying assist 3 The helper provides less than half the effort to complete the activity 2 The helper provides more than half the effort to complete the activity 1 Dependent. The helper does all the effort to complete an activity 7 Patient refused to complete or attempt activity 9 The patient did not perform the activity before the current illness or injury 88 Not attempted due to Medical conditions or safety concerns Transfers (B, C, W/C) (FIM): 4 Scootin Rollin Supine to/from Sit: 5 Sit to/from Stand: 4 Bed to/from Chair: 4 height of surfaces influences pts. indep level Gait Training Does the Patient Walk?: Yes Gait (FIM): 1 Distance (FIM): 1=up to 49 ft (10ftx3) Gait Level of Assist: 3 Gait Persons Needed: 1 Gait Assistive Device: Walker Platform initiated platforms, at first just right side then bilat as pt could see the benefit and feels this may allow him to ambulate better. Pt. with bilat wrist and UE weakness and RA Wheelchair Training Does the Pt Use a Wheelchair?: Yes Wheelchair (FIM): 4 Wheelchair Distance: 0=510-31 ft Wheelchair Level of Assist: 4 (occas for brakes etc.) Type of Wheelchair: Manual Exercises Supine Ex: Ankle pumps, Quad Set, Rolling, Heel Slides, Short Arc Quads, Scooting, Straight leg raise, Hip abd/add Supine Reps: 15 Seated Therapy Exercises: Sit to stand, Long arc quads Seated Reps: 10 Assessment Current Status: Good Progress no problems with drainage from wound today PT Short Term Goals Short Term Goals Time Frame: Jan 04, 2017 Transfers (B,C,W/C) (FIM): 4 Gait (FIM): 2 Distance (FIM): 5=550-47 ft Gait Assistive Device: FWW Wheelchair Distance: 100' x 2 Stairs (FIM): 2 # of Steps: 4 PT Shuttle Spotter Goals Longterm Goals PT Shuttle Spotter Goals Time Frame: January 18, 2017 Transfers (B,C,W/C) (FIM): 6 Sit to Lying (QC): 6 Lying-Sitting on Side/Bed(QC): 6 Sit to Stand (QC): 6 Rollin Roll Left to Right (QC): 6 Chair/Mue-es-Rdkrs Xfer(QC): 6 Car Transfer (QC): 5 Does the Patient Walk: Yes Gait (FIM): 5 Gait distance (FIM): 4=252-93 ft Walk 10 feet (QC): 5 Walk 10ft-Uneven Surface(QC): 5 Walk 50ft with 2 Turns (QC): 5 Walk 150 ft (QC): 88 Gait Assistive Device: FWW Does the Pt use WC or Scooter?: Yes Wheelchair (FIM): 6 Wheelchair distance (FIM): 3=150 ft Wheel 50 feet with 2 turns (QC: 6 Stairs (FIM): 2 # of Steps: 4 1 Step (curb) (QC): 5 4 Steps (QC): 5 12 Steps (QC): 88 Picking up an Object (QC): 88 PT Plan Treatment/Plan Treatment Plan: Continue Plan of Care Treatment Plan: Bed Mobility, Education, Functional Activity Juli, Functional Strength, Group Therapy, Gait, Safety, Therapeutic Exercise, Transfers Treatment Duration: January 18, 2017 Visits Per Week: 10-15 Minutes/Day (M-F): 60-90 Minutes/Day (Sat/Ferrara): prn Safety Risks/Education Patient Education: Gait Training, Transfer Techniques, Correct Positioning, W/ C Management, Disease Process, Safety Issues Teaching Recipient: Patient Teaching Methods: Demonstration, Discussion Response to Teaching: Verbalize Understanding, Return Demonstration, Reinforcement Needed initiating FWW with platform education Time/GCodes Time In: 900 Time Out: 1000 Total Billed Treatment Time: 60 Total Billed Treatment 1,FA20,EX15,GT25 G Codes Necessary: ANAHI Sampson FIELD SECRETARY Dec 30, 2016 10:06
--- NOTE | 2016-12-30 11:41 | Occupational Ther Daily Note ---
OT Current Status-Daily Note Subjective Pt finishing up with PT. Pt agreed to therapy. Pt c/o stabbing pain in his gut and wanted to go to bed. Pain eased after stretching out in bed. Mental Status/Objective Patient Orientation: Person, Place, Time, Situation Functional [place] Measure 0=Not Assessed/NA 4=Minimal Assistance 1=Total Assistance 5=Supervision or Setup 2=Maximal Assistance 6=Modified [place] 3=Moderate Assistance 7=Complete [place] ADL-Treatment Pt stated that he didn't feel up to taking and sponge bath today. Pt was given a wash cloth to wash face and hands. Pt then used dressing stick with min A to doff shoes before lying down in bed. Going from sitting EOB to supine with CGA. Functional [place] Measure 0=Not Assessed/NA 4=Minimal Assistance 1=Total Assistance 5=Supervision or Setup 2=Maximal Assistance 6=Modified [place] 3=Moderate Assistance 7=Complete IndependenceIRFPAI Quality Coding Scale 6 Independent with activity with or without an assistive device 5 Patient requires set up or clean up by helper. Patient completes activity by themselves 4 Supervision or touching assist (CGA). [place] provide cues , steadying assist 3 The helper provides less than half the effort to complete the activity 2 The helper provides more than half the effort to complete the activity 1 Dependent. The helper does all the effort to complete an activity 7 Patient refused to complete or attempt activity 9 The patient did not perform the activity before the current illness or injury 88 Not attempted due to Medical conditions or safety concerns Other Treatment Pt completed UE exercises lying in bed with light resistance therapy sponge, medium resistance theraband and 2# hand weight. Pt was able to complete each exercise, 2 sets 10 reps, with extended breaks between sets. After therapy, pt lying in bed with call light/phone in reach. All needs met in room. OT Short Term Goals Short Term Goals Time Frame: Jan 04, 2017 Eating(FIM): 5 Grooming(FIM): 5 Bathing(FIM): 4 Upper Body Dressing(FIM): 4 Lower Body Dressing(FIM): 4 Toileting(FIM): 4 Transfers (B,C,W/C) (FIM): 4 Toilet/Commode Transfer(FIM): 5 Shower Transfer(FIM): 5 Additional Short Term Goals: 1-Demonstrate ADL Tasks, 2-Verbalize Understanding , 3-ImproveStrength/Juli 1=Demonstrate adherence to instructed precautions during ADL tasks. 2=Patient will verbalize/demonstrate understanding of assistive devices/ modifications for ADL. 3=Patient will improve strength/tolerance for activity to enable patient to perform ADL's. OT Custodial Goals [place] Automatic Goals Time Frame: January 18, 2017 Eating (FIM): 6 Eating (QC): 6 Groomin Oral Hygiene (QC): 6 Bathing(FIM): 5 Shower/Bathe Self (QC): 5 Upper Body Dressing(FIM): 6 Upper Body Dressing (QC): 6 Lower Body Dressing(FIM): 6 Lower Body Dressing (QC): 6 On/Off Footwear (QC): 6 Toileting(FIM): 6 Toileting Hygiene (QC): 6 Transfers (B,C,W/C) (FIM): 6 Toilet/Commode Transfer(FIM): 6 Toilet/Commode Transfer (QC): 6 Shower Transfer(FIM): 5 Additional Goals: 1-Demonstrate ADL Tasks, 2-Verbalize Understanding, 3- ImproveStrength/Juli 1=Demonstrate adherence to instructed precautions during ADL tasks. 2=Patient will verbalize/demonstrate understanding of assistive devices/ modifications for ADL. 3=Patient will improve strength/tolerance for activity to enable patient to perform ADL's. OT Education/Plan Discharge Recommendations Plan/Recommendations: Continue POC Treatment Plan/Plan of Care Patient would benefit from OT for education, treatment and training to promote independence in ADL's, mobility, safety and/or upper extremity function for ADL' s. Plan of Care: ADL Retraining, Caregiver Training, Functional Mobility, Group Exercise/Act as Ind, UE Funct Exercise/Act Treatment Duration: January 18, 2017 Visits Per Week: 10-12 Minutes/Day (M-F): 60-90 Minutes/Day (Sat/Ferrara): prn Agreement: Yes Rehab Potential: Fair Time/GCodes Start Time: 10:00 Stop Time: 11:00 Total Time Billed (hr/min): 60 Billed Treatment Time 1 visit-FA 2 (30 min) EX 2 (30 min) SOMMER SORENSON Dec 30, 2016 11:41
[2016-12-30] MEDS: ENOXAPARIN 40 MG/0.4 ML (LOVENOX) SYR SC SCH (13:11)
--- NOTE | 2016-12-30 14:52 | Therapy Group Daily Note ---
Therapy Daily Group Note Other/Notes Pt was transported to group via w/c. OT/PT group consisted of introductions ( name, place, family history) then socializing within groups while completing fine motor tasks that worked on problem solving, recall/memory and UE gross motor. Pt was able to tolerate all activities and contributed to conversations appropriately. After therapy, pt in room sitting EOB with nrsg. Call light/phone in reach. All needs met in room. Start Time: 13:00 Stop Time: 14:20 Total Billed Treatment Time: 80 Total Billed Treatment 1-GRP SOMMER SORENSON Dec 30, 2016 14:52
[2016-12-30 18:59] VITALS: BP 94/61
[2016-12-30] MEDS: ATORVASTATIN 40 MG (LIPITOR) TABLET PO SCH (20:27)
[2016-12-31 06:18] VITALS: BP 107/63
[2016-12-31] MEDS: LEVOTHYROXINE 75 MCG (LEVOTHROID) TABLET PO SCH (06:27)
[2016-12-31] MEDS: PANTOPRAZOLE 40 MG (PROTONIX) TAB PO SCH (06:27)
[2016-12-31] MEDS: CALCIUM CARBONATE 600 MG (CALCARB) TAB PO SCH (06:27)
[2016-12-31] MEDS: LEVOTHYROXINE 100 MCG (LEVOTHROID) TAB PO SCH (06:27)
[2016-12-31] MEDS: morphine ER 30 MG (MS CONTIN) TAB PO SCH ×3 (06:27→21:18)
[2016-12-31] MEDS: KCL 10 MEQ TAB (MICRO K) PO SCH ×2 (08:47→20:52)
[2016-12-31] MEDS: ASPIRIN E.C. 81 MG (ECOTRIN) TAB PO SCH (08:47)
[2016-12-31] MEDS: SACUBITRIL/VALSARTAN 24/26 MG (ENTRESTO) TABLET PO SCH ×2 (08:47→20:52)
[2016-12-31] MEDS: CARVEDILOL 3.125 MG (COREG) TABLET PO SCH ×2 (08:47→20:52)
[2016-12-31] MEDS: MAGNESIUM OXIDE (MAG-OX)400 MG TAB PO SCH ×2 (08:47→17:35)
[2016-12-31] MEDS: FUROSEMIDE 20 MG (LASIX) TAB PO SCH (08:47)
[2016-12-31] MEDS: HYDROcodone/APAP 10 MG/325 MG (LORTAB) TAB PO PRN ×2 (08:51→17:35)
--- NOTE | 2016-12-31 08:53 | Physical Therapy Daily Note ---
PT Daily Note-Current Subjective Agrees to PT. Wants to sit up in the chair. Reports he is slowly getting stronger. Pain Numeric Pain Scale: 7 Location: Anterior Location Body Site: Abdomen Pain Description: Ache, Dull Comment: Nursing notified to providing pain meds Mental Status Patient Orientation: Person, Place, Time, Situation Transfers Functional [place] Measure 0=Not Assessed/NA 4=Minimal Assistance 1=Total Assistance 5=Supervision or Setup 2=Maximal Assistance 6=Modified [place] 3=Moderate Assistance 7=Complete IndependenceIRFPAI Quality Coding Scale 6 Independent with activity with or without an assistive device 5 Patient requires set up or clean up by helper. Patient completes activity by themselves 4 Supervision or touching assist (CGA). [place] provide cues , steadying assist 3 The helper provides less than half the effort to complete the activity 2 The helper provides more than half the effort to complete the activity 1 Dependent. The helper does all the effort to complete an activity 7 Patient refused to complete or attempt activity 9 The patient did not perform the activity before the current illness or injury 88 Not attempted due to Medical conditions or safety concerns Treatments Sup to sit EOB with SBA, slowly but did not need outside asssit. Sit to stand with min assist and skilled cues for hand placement. Pt is slow with transfer and takes extra time. Pt ambulated x 15 feet with FWW with platforms B to recliner. Pt up in recliner post treatment with needs met. Assessment Current Status: Good Progress Slow to complete tasks but functional mobility is improved and pt making gains towards established goals. Pt motivated and compliant. Decreased edema noted B LE which improved ability to mobilize. PT Short Term Goals Short Term Goals Time Frame: Jan 04, 2017 Transfers (B,C,W/C) (FIM): 4 Gait (FIM): 2 Distance (FIM): 8=417-08 ft Gait Assistive Device: FWW Wheelchair Distance: 100' x 2 Stairs (FIM): 2 # of Steps: 4 PT Deputy City Clerk Goals Deputy City Clerk Goals PT Deputy City Clerk Goals Time Frame: January 18, 2017 Transfers (B,C,W/C) (FIM): 6 Sit to Lying (QC): 6 Lying-Sitting on Side/Bed(QC): 6 Sit to Stand (QC): 6 Rollin Roll Left to Right (QC): 6 Chair/Ahx-gc-Uqqvx Xfer(QC): 6 Car Transfer (QC): 5 Does the Patient Walk: Yes Gait (FIM): 5 Gait distance (FIM): 0=640-30 ft Walk 10 feet (QC): 5 Walk 10ft-Uneven Surface(QC): 5 Walk 50ft with 2 Turns (QC): 5 Walk 150 ft (QC): 88 Gait Assistive Device: FWW Does the Pt use WC or Scooter?: Yes Wheelchair (FIM): 6 Wheelchair distance (FIM): 3=150 ft Wheel 50 feet with 2 turns (QC: 6 Stairs (FIM): 2 # of Steps: 4 1 Step (curb) (QC): 5 4 Steps (QC): 5 12 Steps (QC): 88 Picking up an Object (QC): 88 PT Plan Problem List Problem List: Activity Tolerance, Functional Strength, Safety, Balance, Gait, Transfer, Bed Mobility Treatment/Plan Treatment Plan: Continue Plan of Care Treatment Plan: Bed Mobility, Education, Functional Activity Juli, Functional Strength, Group Therapy, Gait, Safety, Therapeutic Exercise, Transfers Treatment Duration: January 18, 2017 Visits Per Week: 10-15 Minutes/Day (M-F): 60-90 Minutes/Day (Sat/Ferrara): prn Safety Risks/Education Patient Education: Safety Issues Teaching Recipient: Patient Teaching Methods: Demonstration, Discussion Response to Teaching: Return Demonstration Time/GCodes Time In: 825 Time Out: 850 Total Billed Treatment Time: 25 Total Billed Treatment visit FA 10 GT 15 SOMMER PARRY PT Dec 31, 2016 08:53
[2016-12-31] MEDS: ENOXAPARIN 40 MG/0.4 ML (LOVENOX) SYR SC SCH (13:59)
[2016-12-31 17:48] VITALS: BP 98/62
[2016-12-31] MEDS: ATORVASTATIN 40 MG (LIPITOR) TABLET PO SCH (20:52)
[2017-01-01 05:47] VITALS: BP 121/74
[2017-01-01] MEDS: PANTOPRAZOLE 40 MG (PROTONIX) TAB PO SCH (06:46)
[2017-01-01] MEDS: LEVOTHYROXINE 100 MCG (LEVOTHROID) TAB PO SCH (06:46)
[2017-01-01] MEDS: morphine ER 30 MG (MS CONTIN) TAB PO SCH ×3 (06:46→21:26)
[2017-01-01] MEDS: LEVOTHYROXINE 75 MCG (LEVOTHROID) TABLET PO SCH (06:46)
[2017-01-01] MEDS: CALCIUM CARBONATE 600 MG (CALCARB) TAB PO SCH (06:46)
[2017-01-01] MEDS: RT-ALBUTEROL/IPRATROPIUM 3 ML (DUONEB) VIAL INH PRN (08:28)
[2017-01-01] MEDS: SACUBITRIL/VALSARTAN 24/26 MG (ENTRESTO) TABLET PO SCH ×2 (10:08→20:05)
[2017-01-01] MEDS: MAGNESIUM OXIDE (MAG-OX)400 MG TAB PO SCH ×2 (10:08→17:09)
[2017-01-01] MEDS: KCL 10 MEQ TAB (MICRO K) PO SCH ×2 (10:08→20:05)
[2017-01-01] MEDS: ASPIRIN E.C. 81 MG (ECOTRIN) TAB PO SCH (10:08)
[2017-01-01] MEDS: FUROSEMIDE 20 MG (LASIX) TAB PO SCH (10:08)
[2017-01-01] MEDS: CARVEDILOL 3.125 MG (COREG) TABLET PO SCH ×2 (10:12→20:05)
[2017-01-01] MEDS: HYDROcodone/APAP 10 MG/325 MG (LORTAB) TAB PO PRN ×2 (10:12→17:09)
[2017-01-01] MEDS: ENOXAPARIN 40 MG/0.4 ML (LOVENOX) SYR SC SCH (14:11)
[2017-01-01 18:00] VITALS: BP 111/69
[2017-01-01] MEDS: ATORVASTATIN 40 MG (LIPITOR) TABLET PO SCH (20:05)
[2017-01-02] MEDS: HYDROcodone/APAP 10 MG/325 MG (LORTAB) TAB PO PRN ×3 (03:22→17:42)
[2017-01-02 06:00] VITALS: BP 103/56
[2017-01-02] MEDS: LEVOTHYROXINE 100 MCG (LEVOTHROID) TAB PO SCH (06:05)
[2017-01-02] MEDS: morphine ER 30 MG (MS CONTIN) TAB PO SCH ×3 (06:05→21:14)
[2017-01-02] MEDS: PANTOPRAZOLE 40 MG (PROTONIX) TAB PO SCH (06:05)
[2017-01-02] MEDS: LEVOTHYROXINE 75 MCG (LEVOTHROID) TABLET PO SCH (06:05)
[2017-01-02] MEDS: CALCIUM CARBONATE 600 MG (CALCARB) TAB PO SCH (06:05)
[2017-01-02] MEDS: ONDANSETRON 4 MG/2 ML (SDV) Z0FRAN IV PRN (08:09)
--- NOTE | 2017-01-02 08:11 | Occupational Ther Daily Note ---
OT Current Status-Daily Note Subjective Pt. states that his hands were "stiff" yesterday. Is unsure if this is from the weather. Asked nursing to see if pt. is able to have arthritis medication, as he was having this at home. Appearance Pt. is in bed. Agrees to work with OT. Mental Status/Objective Patient Orientation: Person, Place, Time, Situation Functional [place] Measure 0=Not Assessed/NA 4=Minimal Assistance 1=Total Assistance 5=Supervision or Setup 2=Maximal Assistance 6=Modified [place] 3=Moderate Assistance 7=Complete [place] ADL-Treatment Functional [place] Measure 0=Not Assessed/NA 4=Minimal Assistance 1=Total Assistance 5=Supervision or Setup 2=Maximal Assistance 6=Modified [place] 3=Moderate Assistance 7=Complete IndependenceIRFPAI Quality Coding Scale 6 Independent with activity with or without an assistive device 5 Patient requires set up or clean up by helper. Patient completes activity by themselves 4 Supervision or touching assist (CGA). [place] provide cues , steadying assist 3 The helper provides less than half the effort to complete the activity 2 The helper provides more than half the effort to complete the activity 1 Dependent. The helper does all the effort to complete an activity 7 Patient refused to complete or attempt activity 9 The patient did not perform the activity before the current illness or injury 88 Not attempted due to Medical conditions or safety concerns Grooming (FIM): 3 (Due to arthritis, pt. is unable to fully functionally lock up worker his brush and brush his hair.) Bathing (FIM): 4 (Pt. is able to do most tasks seated on side of bed. Is able to use LH sponge to wash feet and legs. Requires assist to stand, and then assist to was rear shailesh area only.) Lower Body Dressing (FIM): 4 (Socks only. Able to doff bilateral socks with legal recruiter. Able to don left sock with sock aide, but had difficulty getting right one onto sock aide due to decreased fine motor strength.) Toileting (FIM): 2 (Pt. able to use urinal but OT emptied it. Pt. dependent to have colostomy bag emptied.) Transfers (B, C, W/C) (FIM): 4 (SBA with supine-sit, and min assist with sit- stand onto platform walker.) Pt. is agreeable to spongebathe. Pt. declines putting on street clothing today. States that if he doesn't "leak" from his bandage today, he might start putting on clothing the rest of the week. Pt. is asked who will empty his colostomy at home. Pt. states that he is not sure if it will be him or his . OT lets him know that whomever it will be, they will need to be educated on technique before discharge home. Pt. agrees. Pt. requires increased time with all tasks. Does state at times that he is having muscle spasms in stomach , but does not give a pain number. OT asked nursing about getting him possibly a muscle relaxer. Pt. is able to transfer sit-supine with SBA after bathing task. All needs met and pt. ordering breakfast. Education OT Patient Education: Correct positioning, Modified ADL techniques, Progress toward Goal/Update tx plan, Purpose of tx/functional activities, Reviewed precautions, Rehab process, Transfer techniques, Use of adapted equipment Teaching Recipient: Patient Teaching Methods: Demonstration, Discussion Response to Teaching: Verbalize Understanding, Return Demonstration OT Short Term Goals Short Term Goals Time Frame: Jan 04, 2017 Eating(FIM): 5 Grooming(FIM): 5 Bathing(FIM): 4 Upper Body Dressing(FIM): 4 Lower Body Dressing(FIM): 4 Toileting(FIM): 4 Transfers (B,C,W/C) (FIM): 4 Toilet/Commode Transfer(FIM): 5 Shower Transfer(FIM): 5 Additional Short Term Goals: 1-Demonstrate ADL Tasks, 2-Verbalize Understanding , 3-ImproveStrength/Juli 1=Demonstrate adherence to instructed precautions during ADL tasks. 2=Patient will verbalize/demonstrate understanding of assistive devices/ modifications for ADL. 3=Patient will improve strength/tolerance for activity to enable patient to perform ADL's. OT Suture Polisher Goals Suture Polisher Goals Time Frame: January 18, 2017 Eating (FIM): 6 Eating (QC): 6 Groomin Oral Hygiene (QC): 6 Bathing(FIM): 5 Shower/Bathe Self (QC): 5 Upper Body Dressing(FIM): 6 Upper Body Dressing (QC): 6 Lower Body Dressing(FIM): 6 Lower Body Dressing (QC): 6 On/Off Footwear (QC): 6 Toileting(FIM): 6 Toileting Hygiene (QC): 6 Transfers (B,C,W/C) (FIM): 6 Toilet/Commode Transfer(FIM): 6 Toilet/Commode Transfer (QC): 6 Shower Transfer(FIM): 5 Additional Goals: 1-Demonstrate ADL Tasks, 2-Verbalize Understanding, 3- ImproveStrength/Juli 1=Demonstrate adherence to instructed precautions during ADL tasks. 2=Patient will verbalize/demonstrate understanding of assistive devices/ modifications for ADL. 3=Patient will improve strength/tolerance for activity to enable patient to perform ADL's. OT Education/Plan Problem List/Assessment Assessment: Decreased Activ Tolerance, Decreased UE Strength, Dependent Transfers, Impaired Bed Mobility, Impaired I ADL's, Impaired Self-Care Skills, Restricted Funct UE ROM Discharge Recommendations Plan/Recommendations: Continue POC Therapy D/C Recommendations: Home w/ Family Support, Occupational Therapy Home Care, Scheduled Assistance Equpiment Recommendations-D/C: Hip Kit Barriers to Progress Arthritis flair ups. Fatigue Patient/Family Goals Pt. would like to return home with spouse's support. Treatment Plan/Plan of Care Treatment,Training & Education: Yes Patient would benefit from OT for education, treatment and training to promote independence in ADL's, mobility, safety and/or upper extremity function for ADL' s. Plan of Care: ADL Retraining, Caregiver Training, Functional Mobility, Group Exercise/Act as Ind, UE Funct Exercise/Act Treatment Duration: January 18, 2017 Visits Per Week: 10-12 Minutes/Day (M-F): 60-90 Minutes/Day (Sat/Ferrara): prn Agreement: Yes Rehab Potential: Fair Time/GCodes Start Time: 07:00 Stop Time: 08:00 Total Time Billed (hr/min): 60 Billed Treatment Time 1, ADL x 4 JENNI OSBORN OT Jan 02, 2017 08:11
[2017-01-02] MEDS: FUROSEMIDE 20 MG (LASIX) TAB PO SCH (08:14)
[2017-01-02] MEDS: KCL 10 MEQ TAB (MICRO K) PO SCH ×2 (08:14→21:14)
[2017-01-02] MEDS: ASPIRIN E.C. 81 MG (ECOTRIN) TAB PO SCH (08:14)
[2017-01-02] MEDS: SACUBITRIL/VALSARTAN 24/26 MG (ENTRESTO) TABLET PO SCH ×2 (08:14→21:14)
[2017-01-02] MEDS: CARVEDILOL 3.125 MG (COREG) TABLET PO SCH ×2 (08:14→21:15)
[2017-01-02] MEDS: MAGNESIUM OXIDE (MAG-OX)400 MG TAB PO SCH ×2 (08:14→17:18)
--- NOTE | 2017-01-02 11:03 | Physical Therapy Daily Note ---
PT Daily Note-Current Subjective Patient in bed pre tx, states he has pain of 8/10, nurse notified. Patient says that he just doesn't feel as strong today. Appearance Patient BTB post tx with nurse call, phone, tray, all needs met. Mental Status Patient Orientation: Normal For Age Attachments: Colostomy/Ileostomy Transfers Functional [place] Measure 0=Not Assessed/NA 4=Minimal Assistance 1=Total Assistance 5=Supervision or Setup 2=Maximal Assistance 6=Modified [place] 3=Moderate Assistance 7=Complete IndependenceIRFPAI Quality Coding Scale 6 Independent with activity with or without an assistive device 5 Patient requires set up or clean up by helper. Patient completes activity by themselves 4 Supervision or touching assist (CGA). [place] provide cues , steadying assist 3 The helper provides less than half the effort to complete the activity 2 The helper provides more than half the effort to complete the activity 1 Dependent. The helper does all the effort to complete an activity 7 Patient refused to complete or attempt activity 9 The patient did not perform the activity before the current illness or injury 88 Not attempted due to Medical conditions or safety concerns Transfers (B, C, W/C) (FIM): 4 Scootin Rollin Supine to/from Sit: 5 Sit to/from Stand: 4 Bed to/from Chair: 4 Gait Training Gait (FIM): 1 Distance: 20' Gait Level of Assist: 4 Gait Persons Needed: 1 Patient uses a bilateral platform walker, CGA, wheelchair follow. Patient has a severely valgus right knee which, when walking he keeps in front of him and the left leg stays behind with a lot of hip external rotation, patient ambulates a little sideways. Wheelchair Training Wheelchair (FIM): 6 Distance: 150'x2 Type of Wheelchair: Manual Exercises Seated Therapy Exercises: Ankle pumps, Hip flexion, Hip abd/add Seated Reps: 20 LAQ alternating for 5 min NuStep Minutes: 10 NuStep Workload: 5 Treatments bed mobility and transfers, ambulation, functional strengthening, wheelchair mobility Assessment Current Status: Fair Progress Patient was able to ambulate further. PT Short Term Goals Short Term Goals Time Frame: Jan 04, 2017 Transfers (B,C,W/C) (FIM): 4 Gait (FIM): 2 Distance (FIM): 7=276-08 ft Gait Assistive Device: FWW Wheelchair Distance: 100' x 2 Stairs (FIM): 2 # of Steps: 4 PT Software Support Engineer Goals Software Support Engineer Goals PT Snf Goals Time Frame: January 18, 2017 Transfers (B,C,W/C) (FIM): 6 Sit to Lying (QC): 6 Lying-Sitting on Side/Bed(QC): 6 Sit to Stand (QC): 6 Rollin Roll Left to Right (QC): 6 Chair/Jga-vl-Ubjzk Xfer(QC): 6 Car Transfer (QC): 5 Does the Patient Walk: Yes Gait (FIM): 5 Gait distance (FIM): 3=685-56 ft Walk 10 feet (QC): 5 Walk 10ft-Uneven Surface(QC): 5 Walk 50ft with 2 Turns (QC): 5 Walk 150 ft (QC): 88 Gait Assistive Device: FWW Does the Pt use WC or Scooter?: Yes Wheelchair (FIM): 6 Wheelchair distance (FIM): 3=150 ft Wheel 50 feet with 2 turns (QC: 6 Stairs (FIM): 2 # of Steps: 4 1 Step (curb) (QC): 5 4 Steps (QC): 5 12 Steps (QC): 88 Picking up an Object (QC): 88 PT Plan Problem List Problem List: Activity Tolerance, Functional Strength, Safety, Balance, Gait, Transfer, Bed Mobility, ROM Treatment/Plan Treatment Plan: Continue Plan of Care Treatment Plan: Bed Mobility, Education, Functional Activity Juli, Functional Strength, Group Therapy, Gait, Safety, Therapeutic Exercise, Transfers Treatment Duration: January 18, 2017 Visits Per Week: 10-15 Minutes/Day (M-F): 60-90 Minutes/Day (Sat/Ferrara): prn Safety Risks/Education Patient Education: Gait Training, Transfer Techniques, Correct Positioning, W/ C Management, Safety Issues Teaching Recipient: Patient Teaching Methods: Demonstration, Discussion Response to Teaching: Reinforcement Needed Time/GCodes Time In: 1000 Time Out: 1100 Total Billed Treatment Time: 60 Total Billed Treatment 1 visit GT 15 min WCH 15 min EX 30 min ELSY AGUIRRE PT Jan 02, 2017 11:03
--- NOTE | 2017-01-02 12:11 | Cardiology Progress Note ---
Subjective Subjective/Events-last exam Patient is feeling better, recovering slowly, no chest pain Review of Systems General: No Chills, No Night Sweats, No Fatigue, No Malaise, No Appetite, No Other HEENT: No Head Aches, No Visual Changes, No Eye Pain, No Ear Pain, No Dysphasia , No Sinus Congestion, No Post Nasal Drip, No Sore Throat, No Other Pulmonary: No Dyspnea, No Cough, No Pleuritic Chest Pain, No Other Cardiovascular: No: Chest Pain, Edema, Lt Headedness, Orthopnea, Other, Palpitations, Paroxysmal Noc. Dyspnea Objective-Cardiology Exam Last Set of Vital Signs Vital Signs 12/30/16 01/02/17 01/02/17 01/02/17 18:59 06:00 08:15 11:08 Temp 96.6 Pulse 69 Resp 18 B/P (MAP) 103/56 Pulse Ox 93 O2 Delivery Room Air O2 Flow Rate 2.00 Capillary Refill : I&O Intake and Output 01/02/17 00:00 Intake Total 2030 ml Output Total 2300 ml Balance -270 ml Intake Oral 2030 ml Output Urine Total 1700 ml Stool Total 600 ml General: Alert, Oriented X3, Cooperative, No Acute Distress HEENT: Atraumatic, PERRLA, EOMI, Mucous Memb Moist/[place] Neck: Supple, No JVD Lungs: Clear to Auscultation Heart: Regular Rate, Normal S1, Normal S2 Abdomen: Normal Bowel Sounds, Soft, No Tenderness, Other (dressing saturated from drainage) Extremities: No Clubbing, No Cyanosis, Other (trace edema) Neuro: Normal Speech, Cranial Nerves 3-12 NL Psych/Mental Status: Mental Status NL A/P-Cardiology Admission Diagnosis C. difficile colitis Sepsis CHF PVD Assessment/Plan C. difficile colitis, status post extended left hemicolectomy with Pam procedure, recovering slowly, Followed by Dr Jaime Short of breath, Reporting improvement. Continue to monitor. Peripheral edema, better, continue to monitor Congestive heart failure, nonischemic cardiomyopathy, acute on chronic left ventricular systolic dysfunction with most recent ejection fraction improved to 50 percent. Maintained on beta gurpreet and Entresto. Status post anoxic encephalopathy and pneumonia and sepsis early in October, improved with aggressive therapy. Back to his baseline. Continue to monitor. Status post acute renal failure. Improved, monitor renal function closely Peripheral vascular disease with history of nonhealing wounds bilaterally. Peripheral angiogram done 12/04/16 revealed moderate atherosclerotic disease on the left lower extremity, the anterior tibial artery is severely diseased on the left lower extremity but the ulcer on the left lower extremity has healed. Medical therapy is recommended. Moderate disease of the right lower extremity with good flow, with three-vessel flow down to the foot. Continue medical management at this time and continue to monitor. Small infrarenal abdominal aortic aneurysm noted during peripheral angiogram. Continue to monitor Hypertension,controlled. Continue to monitor blood pressure. Hyperlipidemia, continue to hold statin. Hyperthyroidism, history of hypothyroidism and Levothroid, managed by primary care physician History of pulmonary hypertension, continue to monitor History of rheumatoid arthritis. COPD, managed and followed by primary care physician Tobaccoism, patient has stopped smoking after the last admission. Encouraged to continue with smoking cessation History of chronic narcotic use, urine drug screen is positive for opioids Clinical Quality Measures DVT/VTE Risk/Contraindication: Risk Factor Score Per Nursin RFS Level Per Nursing on Admit: 4+=Very High TORY HALL MD Jan 02, 2017 12:11
--- NOTE | 2017-01-02 14:28 | Therapy Group Daily Note ---
Therapy Daily Group Note Patient Education Topic Home Safety, Fall Prevention Other/Notes Pt was an active participant in OT group. He introduced himself for socialization by sharing his 's favorite spring flower. He contributed to the discussion/education on fall prevention and, by the end of the group, was able to identify a change he would make at home to prevent falls. He propelled himself back to his room and transferred to bed CGA assist. Pt left up in bed, all needs met. Start Time: 13:00 Stop Time: 14:10 Total Billed Treatment Time: 70 Total Billed Treatment visit, 70 minutes group ERNESTINA BAUER OT Jan 02, 2017 14:28
[2017-01-02] MEDS: ENOXAPARIN 40 MG/0.4 ML (LOVENOX) SYR SC SCH (14:51)
[2017-01-02 15:23] VITALS: BP 111/47
--- NOTE | 2017-01-02 19:20 | PM & R (SOAP) Progress Note ---
Subjective Subjective/Events-last exam Patient was seen in his room earlier today with RN Midline incision viewed with dressing off NO drainage noted Abdomen mildly distended but non tender and BS present Patient SBA for transfers Objective Exam Last Set of Vital Signs Vital Signs Date Time Temp Pulse Resp B/P (MAP) Pulse Ox O2 Delivery O2 Flow Rate FiO2 01/02/17 15:23 96.9 78 18 111/47 95 Room Air 12/30/16 18:59 2.00 Capillary Refill : Less Than 3 Seconds I&O Intake and Output 01/02/17 00:00 Intake Total 2030 ml Output Total 2300 ml Balance -270 ml Intake Oral 2030 ml Output Urine Total 1700 ml Stool Total 600 ml General: Alert, Oriented X3, Cooperative, No Acute Distress HEENT: Atraumatic, PERRLA, EOMI, Mucous Memb Moist/[place] Neck: Supple, No JVD Lungs: Clear to Auscultation Heart: Regular Rate, Normal S1, Normal S2 Abdomen: Normal Bowel Sounds, Soft, No Tenderness, Other (as per above) Extremities: No Clubbing, No Cyanosis, Other (trace edema) Neuro: Normal Speech, Cranial Nerves 3-12 NL Psych/Mental Status: Mental Status NL Assessment/Plan Assessment general debil s/p sepsis secondary to 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 Dr Jaime has seen re staple removal and suturing draining area improved Consult Plumber Apprentice re supplement Next Team Conference 01/04/17 NATALIYA KHANNA MD Jan 02, 2017 19:20
[2017-01-02] MEDS: ATORVASTATIN 40 MG (LIPITOR) TABLET PO SCH (21:14)
[2017-01-03] MEDS: HYDROcodone/APAP 10 MG/325 MG (LORTAB) TAB PO PRN ×4 (00:22→21:23)
[2017-01-03 06:00] VITALS: BP 112/72
[2017-01-03] MEDS: ONDANSETRON 4 MG/2 ML (SDV) Z0FRAN IV PRN (06:25)
[2017-01-03] MEDS: LEVOTHYROXINE 75 MCG (LEVOTHROID) TABLET PO SCH (06:27)
[2017-01-03] MEDS: morphine ER 30 MG (MS CONTIN) TAB PO SCH ×3 (06:27→21:23)
[2017-01-03] MEDS: LEVOTHYROXINE 100 MCG (LEVOTHROID) TAB PO SCH (06:27)
[2017-01-03] MEDS: PANTOPRAZOLE 40 MG (PROTONIX) TAB PO SCH (06:27)
[2017-01-03] MEDS: CALCIUM CARBONATE 600 MG (CALCARB) TAB PO SCH (06:27)
[2017-01-03] MEDS: FUROSEMIDE 20 MG (LASIX) TAB PO SCH (08:51)
[2017-01-03] MEDS: MAGNESIUM OXIDE (MAG-OX)400 MG TAB PO SCH ×2 (08:51→17:29)
[2017-01-03] MEDS: KCL 10 MEQ TAB (MICRO K) PO SCH ×2 (08:51→21:23)
[2017-01-03] MEDS: CARVEDILOL 3.125 MG (COREG) TABLET PO SCH ×2 (08:51→21:22)
[2017-01-03] MEDS: ASPIRIN E.C. 81 MG (ECOTRIN) TAB PO SCH (08:51)
[2017-01-03] MEDS: SACUBITRIL/VALSARTAN 24/26 MG (ENTRESTO) TABLET PO SCH ×2 (08:53→21:23)
--- NOTE | 2017-01-03 09:15 | Physical Therapy Daily Note ---
PT Daily Note-Current Subjective Patient in bed pre tx, agrees to PT, has 8/10 pain, nurse brought pain meds to the gym. Patient has been nauseated this morning and states he is weak and stiff. Appearance Patient BTB post tx with nurse call, phone, tray, all needs met, pillow under lower legs for heel relief. Mental Status Patient Orientation: Normal For Age Attachments: Colostomy/Ileostomy Transfers Functional [place] Measure 0=Not Assessed/NA 4=Minimal Assistance 1=Total Assistance 5=Supervision or Setup 2=Maximal Assistance 6=Modified [place] 3=Moderate Assistance 7=Complete IndependenceIRFPAI Quality Coding Scale 6 Independent with activity with or without an assistive device 5 Patient requires set up or clean up by helper. Patient completes activity by themselves 4 Supervision or touching assist (CGA). [place] provide cues , steadying assist 3 The helper provides less than half the effort to complete the activity 2 The helper provides more than half the effort to complete the activity 1 Dependent. The helper does all the effort to complete an activity 7 Patient refused to complete or attempt activity 9 The patient did not perform the activity before the current illness or injury 88 Not attempted due to Medical conditions or safety concerns Transfers (B, C, W/C) (FIM): 4 Scootin Rollin Supine to/from Sit: 4 (min assist, patient needed assist getting leg back into bed ) Sit to/from Stand: 4 (min assist, patinet needs assist standing from low surfaces) Bed to/from Chair: 4 (CGA) Gait Training Gait (FIM): 1 Distance: 40' Gait Level of Assist: 4 Gait Persons Needed: 1 Patient uses a bilateral platform walker, CGA, patient keeps right leg in front , left hip externally rotated. Exercises Seated Therapy Exercises: Ankle pumps, Hip flexion, Hip abd/add Seated Reps: 20 Standing: Heel/toe raises, Mini squats Standing Reps: 10 LAQ alternating for 5 min NuStep Minutes: 15 NuStep Workload: 5 Treatments bed mobility and transfer training, gait training, functional strengthening Assessment Current Status: Fair Progress Improved endurance with ambulation, patient needed a little more assist during transfers due to not feeling well. PT Short Term Goals Short Term Goals Time Frame: Jan 04, 2017 Transfers (B,C,W/C) (FIM): 4 Gait (FIM): 2 Distance (FIM): 8=210-17 ft Gait Assistive Device: FWW Wheelchair Distance: 150'x2 Stairs (FIM): 2 # of Steps: 4 PT Alf Goals Alf Goals PT Lockstitch Shoulder Joiner Goals Time Frame: January 18, 2017 Transfers (B,C,W/C) (FIM): 6 Sit to Lying (QC): 6 Lying-Sitting on Side/Bed(QC): 6 Sit to Stand (QC): 6 Rollin Roll Left to Right (QC): 6 Chair/Rmm-tw-Zqdhr Xfer(QC): 6 Car Transfer (QC): 5 Does the Patient Walk: Yes Gait (FIM): 5 Gait distance (FIM): 1=555-56 ft Walk 10 feet (QC): 5 Walk 10ft-Uneven Surface(QC): 5 Walk 50ft with 2 Turns (QC): 5 Walk 150 ft (QC): 88 Gait Assistive Device: FWW Does the Pt use WC or Scooter?: Yes Wheelchair (FIM): 6 Wheelchair distance (FIM): 3=150 ft Wheel 50 feet with 2 turns (QC: 6 Stairs (FIM): 2 # of Steps: 4 1 Step (curb) (QC): 5 4 Steps (QC): 5 12 Steps (QC): 88 Picking up an Object (QC): 88 PT Plan Problem List Problem List: Activity Tolerance, Functional Strength, Safety, Balance, Gait, Transfer, Bed Mobility, ROM Treatment/Plan Treatment Plan: Continue Plan of Care Treatment Plan: Bed Mobility, Education, Functional Activity Juli, Functional Strength, Group Therapy, Gait, Safety, Therapeutic Exercise, Transfers Treatment Duration: January 18, 2017 Visits Per Week: 10-15 Minutes/Day (M-F): 60-90 Minutes/Day (Sat/Ferrara): prn Safety Risks/Education Patient Education: Gait Training, Transfer Techniques, Correct Positioning, Safety Issues Teaching Recipient: Patient Teaching Methods: Demonstration, Discussion Response to Teaching: Reinforcement Needed Time/GCodes Time In: 815 Time Out: 915 Total Billed Treatment Time: 60 Total Billed Treatment 1 visit GT 15 min FA 15 min EX 30 min ELSY AGUIRRE PT Jan 03, 2017 09:15
--- NOTE | 2017-01-03 10:58 | Occupational Ther Daily Note ---
OT Current Status-Daily Note Subjective Pt alert, lying in bed. Pt c/o nausea and stated that nrsg had already given him medication for it. Pt agreed to therapy. Mental Status/Objective Patient Orientation: Person, Place, Time, Situation Functional [place] Measure 0=Not Assessed/NA 4=Minimal Assistance 1=Total Assistance 5=Supervision or Setup 2=Maximal Assistance 6=Modified [place] 3=Moderate Assistance 7=Complete [place] ADL-Treatment Pt completed sponge bath sitting EOB. Pt took increased time to complete today due to frequent rest breaks for nausea. Pt was able to upper body bathing then using long handle sponge pt able to complete lower body bathing. Pt bathed shailesh area when seated then stood with platform FWW and assist to cleanse and dry buttocks. Pt was able to brush hair. Increased edema in B hands today difficulty with gross and fine motor hand skills. Pt declined donning regular clothing and wanted to stay in hospital gown. Assist to tie shoes, pt able to slip shoes on feet. Pt was able to set up for breakfast and use regular utensils to feed self. After therapy, pt sitting EOB with call light/phone in reach. All needs met in room. Functional [place] Measure 0=Not Assessed/NA 4=Minimal Assistance 1=Total Assistance 5=Supervision or Setup 2=Maximal Assistance 6=Modified [place] 3=Moderate Assistance 7=Complete IndependenceIRFPAI Quality Coding Scale 6 Independent with activity with or without an assistive device 5 Patient requires set up or clean up by helper. Patient completes activity by themselves 4 Supervision or touching assist (CGA). [place] provide cues , steadying assist 3 The helper provides less than half the effort to complete the activity 2 The helper provides more than half the effort to complete the activity 1 Dependent. The helper does all the effort to complete an activity 7 Patient refused to complete or attempt activity 9 The patient did not perform the activity before the current illness or injury 88 Not attempted due to Medical conditions or safety concerns Eating (FIM): 6 Bathing (FIM): 4 Bathing Location: L Arm, R Arm, L Upper Leg, R Upper Leg, L Lower Leg ( including foot), R Lower Leg (including foot), Chest, Abdomen, Perineal Area On/Off Footwear (QC): 3 OT Short Term Goals Short Term Goals Time Frame: Jan 04, 2017 Eating(FIM): 5 Grooming(FIM): 5 Bathing(FIM): 4 Upper Body Dressing(FIM): 4 Lower Body Dressing(FIM): 4 Toileting(FIM): 4 Transfers (B,C,W/C) (FIM): 4 Toilet/Commode Transfer(FIM): 5 Shower Transfer(FIM): 5 Additional Short Term Goals: 1-Demonstrate ADL Tasks, 2-Verbalize Understanding , 3-ImproveStrength/Juli 1=Demonstrate adherence to instructed precautions during ADL tasks. 2=Patient will verbalize/demonstrate understanding of assistive devices/ modifications for ADL. 3=Patient will improve strength/tolerance for activity to enable patient to perform ADL's. OT Custodial Goals Yield Improvement Engineer Goals Time Frame: January 18, 2017 Eating (FIM): 6 Eating (QC): 6 Groomin Oral Hygiene (QC): 6 Bathing(FIM): 5 Shower/Bathe Self (QC): 5 Upper Body Dressing(FIM): 6 Upper Body Dressing (QC): 6 Lower Body Dressing(FIM): 6 Lower Body Dressing (QC): 6 On/Off Footwear (QC): 6 Toileting(FIM): 6 Toileting Hygiene (QC): 6 Transfers (B,C,W/C) (FIM): 6 Toilet/Commode Transfer(FIM): 6 Toilet/Commode Transfer (QC): 6 Shower Transfer(FIM): 5 Additional Goals: 1-Demonstrate ADL Tasks, 2-Verbalize Understanding, 3- ImproveStrength/Juli 1=Demonstrate adherence to instructed precautions during ADL tasks. 2=Patient will verbalize/demonstrate understanding of assistive devices/ modifications for ADL. 3=Patient will improve strength/tolerance for activity to enable patient to perform ADL's. OT Education/Plan Discharge Recommendations Plan/Recommendations: Continue POC Treatment Plan/Plan of Care Patient would benefit from OT for education, treatment and training to promote independence in ADL's, mobility, safety and/or upper extremity function for ADL' s. Plan of Care: ADL Retraining, Caregiver Training, Functional Mobility, Group Exercise/Act as Ind, UE Funct Exercise/Act Treatment Duration: January 18, 2017 Visits Per Week: 10-12 Minutes/Day (M-F): 60-90 Minutes/Day (Sat/Ferrara): prn Agreement: Yes Rehab Potential: Fair Time/GCodes Start Time: 07:15 Stop Time: 08:15 Total Time Billed (hr/min): 60 Billed Treatment Time 1 visit-ADL 4 (60 min) SOMMER SORENSON Jan 03, 2017 10:58
--- NOTE | 2017-01-03 11:30 | Occupational Ther Daily Note ---
OT Current Status-Daily Note Subjective Pt sleeping in bed, woke easily to name. Pt agreed to therapy. Pt stated he felt better than he did earlier in am. Mental Status/Objective Patient Orientation: Person, Place, Time, Situation Functional [place] Measure 0=Not Assessed/NA 4=Minimal Assistance 1=Total Assistance 5=Supervision or Setup 2=Maximal Assistance 6=Modified [place] 3=Moderate Assistance 7=Complete [place] ADL-Treatment Functional [place] Measure 0=Not Assessed/NA 4=Minimal Assistance 1=Total Assistance 5=Supervision or Setup 2=Maximal Assistance 6=Modified [place] 3=Moderate Assistance 7=Complete IndependenceIRFPAI Quality Coding Scale 6 Independent with activity with or without an assistive device 5 Patient requires set up or clean up by helper. Patient completes activity by themselves 4 Supervision or touching assist (CGA). [place] provide cues , steadying assist 3 The helper provides less than half the effort to complete the activity 2 The helper provides more than half the effort to complete the activity 1 Dependent. The helper does all the effort to complete an activity 7 Patient refused to complete or attempt activity 9 The patient did not perform the activity before the current illness or injury 88 Not attempted due to Medical conditions or safety concerns Other Treatment Pt requested to stay in room for therapy. Pt completed UE medium resistance theraband exercises 1 set 15 reps. At the end of the theraband exercises, pt felt sharp pains in his abdomen. Pains stopped when he stopped exercising then pt began to feel nauseous again. Stopped UE gross motor exercises and began hand exercises with therapy sponge. Pt was able to complete exercises though continued to feel a little nauseous. After therapy, pt lying in bed with call light/phone in reach. All needs met in room. OT Short Term Goals Short Term Goals Time Frame: Jan 04, 2017 Eating(FIM): 5 Grooming(FIM): 5 Bathing(FIM): 4 Upper Body Dressing(FIM): 4 Lower Body Dressing(FIM): 4 Toileting(FIM): 4 Transfers (B,C,W/C) (FIM): 4 Toilet/Commode Transfer(FIM): 5 Shower Transfer(FIM): 5 Additional Short Term Goals: 1-Demonstrate ADL Tasks, 2-Verbalize Understanding , 3-ImproveStrength/Juli 1=Demonstrate adherence to instructed precautions during ADL tasks. 2=Patient will verbalize/demonstrate understanding of assistive devices/ modifications for ADL. 3=Patient will improve strength/tolerance for activity to enable patient to perform ADL's. OT Bioinformatics Associate Goals Snf Goals Time Frame: January 18, 2017 Eating (FIM): 6 Eating (QC): 6 Groomin Oral Hygiene (QC): 6 Bathing(FIM): 5 Shower/Bathe Self (QC): 5 Upper Body Dressing(FIM): 6 Upper Body Dressing (QC): 6 Lower Body Dressing(FIM): 6 Lower Body Dressing (QC): 6 On/Off Footwear (QC): 6 Toileting(FIM): 6 Toileting Hygiene (QC): 6 Transfers (B,C,W/C) (FIM): 6 Toilet/Commode Transfer(FIM): 6 Toilet/Commode Transfer (QC): 6 Shower Transfer(FIM): 5 Additional Goals: 1-Demonstrate ADL Tasks, 2-Verbalize Understanding, 3- ImproveStrength/Juli 1=Demonstrate adherence to instructed precautions during ADL tasks. 2=Patient will verbalize/demonstrate understanding of assistive devices/ modifications for ADL. 3=Patient will improve strength/tolerance for activity to enable patient to perform ADL's. OT Education/Plan Discharge Recommendations Plan/Recommendations: Continue POC Treatment Plan/Plan of Care Patient would benefit from OT for education, treatment and training to promote independence in ADL's, mobility, safety and/or upper extremity function for ADL' s. Plan of Care: ADL Retraining, Caregiver Training, Functional Mobility, Group Exercise/Act as Ind, UE Funct Exercise/Act Treatment Duration: January 18, 2017 Visits Per Week: 10-12 Minutes/Day (M-F): 60-90 Minutes/Day (Sat/Ferrara): prn Agreement: Yes Rehab Potential: Fair Time/GCodes Start Time: 11:00 Stop Time: 11:30 Total Time Billed (hr/min): 30 Billed Treatment Time 1 visit-EX 2 (30 min) SOMMER SORENSON Jan 03, 2017 11:30
--- NOTE | 2017-01-03 11:31 | PM & R (SOAP) Progress Note ---
Subjective Subjective/Events-last exam Patient was seen in his room this AM Had some mild nausea Discussed with POPEYE Dodge provided Patient min assist for transfers No drainage noted from abdomen Review of Systems Gastrointestinal: Nausea Objective Exam Last Set of Vital Signs Vital Signs Date Time Temp Pulse Resp B/P (MAP) Pulse Ox O2 Delivery O2 Flow Rate FiO2 01/03/17 08:00 Room Air 01/03/17 06:00 99.1 77 18 112/72 95 12/30/16 18:59 2.00 Capillary Refill : Less Than 3 Seconds I&O Intake and Output 01/03/17 00:00 Intake Total 1370 ml Output Total 2250 ml Balance -880 ml Intake Oral 1370 ml Output Urine Total 1850 ml Stool Total 400 ml General: Alert, Oriented X3, Cooperative, No Acute Distress HEENT: Atraumatic, PERRLA, EOMI, Mucous Memb Moist/[place] Neck: Supple, No JVD Lungs: Clear to Auscultation Heart: Regular Rate, Normal S1, Normal S2 Abdomen: Normal Bowel Sounds, Soft, No Tenderness, Other (as per above) Extremities: No Clubbing, No Cyanosis, Other (trace edema) Neuro: Normal Speech, Cranial Nerves 3-12 NL Psych/Mental Status: Mental Status NL Assessment/Plan Assessment general debil s/p sepsis secondary to 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 Dr Jaime has seen re staple removal and suturing draining area improved Consult Radiation Therapy Technologist re supplement Next Team Conference tomorrow 01/04/17 Monitor for any further nausea NATALIYA KHANNA MD Jan 03, 2017 11:31
--- NOTE | 2017-01-03 13:19 | Progress Note ---
Subjective Subjective/Events-last exam Pt seen and examined. States he is getting stronger "just not as fast as I would like." He denies any recent abdominal drainage. Review of Systems General: No Chills, No Night Sweats Pulmonary: No Cough Cardiovascular: No: Chest Pain Gastrointestinal: No: Nausea, Vomiting Objective Exam Vital Signs Date Time Temp Pulse Resp B/P (MAP) Pulse Ox O2 Delivery O2 Flow Rate FiO2 01/03/17 08:00 Room Air 01/03/17 06:00 99.1 77 18 112/72 95 Room Air 01/02/17 20:00 Room Air 01/02/17 15:23 96.9 78 18 111/47 95 Room Air I & O 01/03/17 07:00 Intake Total 950 ml Output Total 2600 ml Balance -1650 ml Capillary Refill : Less Than 3 Seconds General Appearance: No Apparent Distress, Other (looking stronger, more alert and healthier than before) HEENT: PERRL/EOMI Neck: Supple Respiratory: No Respiratory Distress Cardiovascular: Regular Rate, Rhythm Gastrointestinal: non tender, soft (slight erythema at анна, ostomy pink + functioning - edema almost gone, No serous drainage from midline, ), no organomegaly, other (pt has what feels like 3cm defect at upper part of incision , this is probably a fascial defect/hernia) Extremity: Non Tender, No Pedal Edema Neurologic/Psychiatric: Alert, Oriented x3 Skin: Warm/Dry Assessment/Plan Assessment/Plan Assessment/Plan general debil s/p sepsis secondary to 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 He must regain his strength first. Clinical Quality Measures DVT/VTE Risk/Contraindication: Risk Factor Score Per Nursin RFS Level Per Nursing on Admit: 4+=Very High NATALIYA JAIME DO Jan 03, 2017 13:19
[2017-01-03] MEDS: ENOXAPARIN 40 MG/0.4 ML (LOVENOX) SYR SC SCH (14:14)
--- NOTE | 2017-01-03 14:33 | Physical Therapy Daily Note ---
PT Daily Note-Current Subjective Patient in bed pre tx, agrees to PT, has pain of 7/10. Appearance Patient in bed post tx with nurse call, phone, tray, all needs met. Mental Status Patient Orientation: Normal For Age Attachments: Colostomy/Ileostomy Transfers Functional [place] Measure 0=Not Assessed/NA 4=Minimal Assistance 1=Total Assistance 5=Supervision or Setup 2=Maximal Assistance 6=Modified [place] 3=Moderate Assistance 7=Complete IndependenceIRFPAI Quality Coding Scale 6 Independent with activity with or without an assistive device 5 Patient requires set up or clean up by helper. Patient completes activity by themselves 4 Supervision or touching assist (CGA). [place] provide cues , steadying assist 3 The helper provides less than half the effort to complete the activity 2 The helper provides more than half the effort to complete the activity 1 Dependent. The helper does all the effort to complete an activity 7 Patient refused to complete or attempt activity 9 The patient did not perform the activity before the current illness or injury 88 Not attempted due to Medical conditions or safety concerns Transfers (B, C, W/C) (FIM): 4 Scootin Rollin Supine to/from Sit: 4 (min assist, sometimes needs assist getting left leg into bed) Sit to/from Stand: 4 Bed to/from Chair: 4 Wheelchair Training Wheelchair (FIM): 5 Distance: 150'x2 Wheelchair Level of Assist: 5 Type of Wheelchair: Manual Exercises Supine Ex: Ankle pumps, Quad Set, Glut sets, Heel Slides, Short Arc Quads, Straight leg raise Supine Reps: 20 Treatments bed mobility and transfer training, functional strengthening Assessment Current Status: Fair Progress improving transfers PT Short Term Goals Short Term Goals Time Frame: Jan 04, 2017 Transfers (B,C,W/C) (FIM): 4 Gait (FIM): 2 Distance (FIM): 1=916-71 ft Gait Assistive Device: FWW Wheelchair Distance: 150'x2 Stairs (FIM): 2 # of Steps: 4 PT [place] Operator Goals Snf Goals PT [place] Operator Goals Time Frame: January 18, 2017 Transfers (B,C,W/C) (FIM): 6 Sit to Lying (QC): 6 Lying-Sitting on Side/Bed(QC): 6 Sit to Stand (QC): 6 Rollin Roll Left to Right (QC): 6 Chair/Mwi-lt-Zgiwd Xfer(QC): 6 Car Transfer (QC): 5 Does the Patient Walk: Yes Gait (FIM): 5 Gait distance (FIM): 9=878-18 ft Walk 10 feet (QC): 5 Walk 10ft-Uneven Surface(QC): 5 Walk 50ft with 2 Turns (QC): 5 Walk 150 ft (QC): 88 Gait Assistive Device: FWW Does the Pt use WC or Scooter?: Yes Wheelchair (FIM): 6 Wheelchair distance (FIM): 3=150 ft Wheel 50 feet with 2 turns (QC: 6 Stairs (FIM): 2 # of Steps: 4 1 Step (curb) (QC): 5 4 Steps (QC): 5 12 Steps (QC): 88 Picking up an Object (QC): 88 PT Plan Problem List Problem List: Activity Tolerance, Functional Strength, Safety, Balance, Gait, Transfer, Bed Mobility, ROM Treatment/Plan Treatment Plan: Continue Plan of Care Treatment Plan: Bed Mobility, Education, Functional Activity Juli, Functional Strength, Group Therapy, Gait, Safety, Therapeutic Exercise, Transfers Treatment Duration: January 18, 2017 Visits Per Week: 10-15 Minutes/Day (M-F): 60-90 Minutes/Day (Sat/Ferrara): prn Safety Risks/Education Patient Education: Transfer Techniques, Correct Positioning, Safety Issues Teaching Recipient: Patient Teaching Methods: Demonstration, Discussion Response to Teaching: Reinforcement Needed Time/GCodes Time In: 1300 Time Out: 1330 Total Billed Treatment Time: 30 Total Billed Treatment 1 visit [facility] 10 min EX 20 min ELSY AGUIRRE PT Jan 03, 2017 14:33
[2017-01-03 18:21] VITALS: BP 110/74
[2017-01-03] MEDS: ATORVASTATIN 40 MG (LIPITOR) TABLET PO SCH (21:23)
[2017-01-04] MEDS: HYDROcodone/APAP 10 MG/325 MG (LORTAB) TAB PO PRN ×2 (03:33→10:00)
[2017-01-04 05:07] VITALS: BP 107/63
[2017-01-04] MEDS: LEVOTHYROXINE 100 MCG (LEVOTHROID) TAB PO SCH (06:13)
[2017-01-04] MEDS: LEVOTHYROXINE 75 MCG (LEVOTHROID) TABLET PO SCH (06:13)
[2017-01-04] MEDS: CALCIUM CARBONATE 600 MG (CALCARB) TAB PO SCH (06:13)
[2017-01-04] MEDS: morphine ER 30 MG (MS CONTIN) TAB PO SCH ×3 (06:13→21:19)
[2017-01-04] MEDS: PANTOPRAZOLE 40 MG (PROTONIX) TAB PO SCH (06:13)
--- NOTE | 2017-01-04 08:16 | Cardiology Progress Note ---
Subjective Subjective/Events-last exam Patient is eating breakfast, no new complaint. Denies any CP or dyspnea. Continues to improve. Objective-Cardiology Exam Last Set of Vital Signs Vital Signs 12/30/16 01/04/17 18:59 05:07 Temp 98.7 Pulse 78 Resp 18 B/P (MAP) 107/63 Pulse Ox 94 O2 Delivery Room Air O2 Flow Rate 2.00 Capillary Refill : Less Than 3 Seconds I&O Intake and Output 01/04/17 00:00 Intake Total 820 ml Output Total 2475 ml Balance -1655 ml Intake Oral 820 ml Output Urine Total 1975 ml Stool Total 500 ml General: Alert, Oriented X3, Cooperative, No Acute Distress HEENT: Atraumatic, PERRLA, EOMI, Mucous Memb Moist/[place] Neck: Supple, No JVD Lungs: Clear to Auscultation Heart: Regular Rate, Normal S1, Normal S2 Abdomen: Normal Bowel Sounds, Soft, No Tenderness Extremities: No Clubbing, No Cyanosis, Other (trace edema) Neuro: Normal Speech, Cranial Nerves 3-12 NL Psych/Mental Status: Mental Status NL A/P-Cardiology Admission Diagnosis C. difficile colitis Sepsis CHF PVD Assessment/Plan C. difficile colitis, status post extended left hemicolectomy with Pam procedure, recovering slowly, Followed by Dr Jaime Short of breath, Reporting improvement. Continue to monitor. Peripheral edema, better, continue to monitor Congestive heart failure, nonischemic cardiomyopathy, acute on chronic left ventricular systolic dysfunction with most recent ejection fraction improved to 50 percent. Maintained on beta gurpreet and Entresto. Status post anoxic encephalopathy and pneumonia and sepsis early in October, improved with aggressive therapy. Back to his baseline. Continue to monitor. Status post acute renal failure. Improved, monitor renal function closely Peripheral vascular disease with history of nonhealing wounds bilaterally. Peripheral angiogram done 12/04/16 revealed moderate atherosclerotic disease on the left lower extremity, the anterior tibial artery is severely diseased on the left lower extremity but the ulcer on the left lower extremity has healed. Medical therapy is recommended. Moderate disease of the right lower extremity with good flow, with three-vessel flow down to the foot. Continue medical management at this time and continue to monitor. Small infrarenal abdominal aortic aneurysm noted during peripheral angiogram. Continue to monitor Hypertension,controlled. Continue to monitor blood pressure. Hyperlipidemia, continue to hold statin. Hyperthyroidism, history of hypothyroidism, managed by primary care physician History of pulmonary hypertension, continue to monitor History of rheumatoid arthritis. COPD, managed and followed by primary care physician Tobaccoism, patient has stopped smoking after the last admission. Encouraged to continue with smoking cessation History of chronic narcotic use, urine drug screen is positive for opioids Clinical Quality Measures DVT/VTE Risk/Contraindication: Risk Factor Score Per Nursin RFS Level Per Nursing on Admit: 4+=Very High FATUMA GARCES Jan 04, 2017 08:16
[2017-01-04] MEDS: MAGNESIUM OXIDE (MAG-OX)400 MG TAB PO SCH ×2 (08:33→17:57)
[2017-01-04] MEDS: FUROSEMIDE 20 MG (LASIX) TAB PO SCH (08:33)
[2017-01-04] MEDS: CARVEDILOL 3.125 MG (COREG) TABLET PO SCH ×2 (08:33→21:19)
[2017-01-04] MEDS: SACUBITRIL/VALSARTAN 24/26 MG (ENTRESTO) TABLET PO SCH ×2 (08:33→21:18)
[2017-01-04] MEDS: ASPIRIN E.C. 81 MG (ECOTRIN) TAB PO SCH (08:33)
[2017-01-04] MEDS: KCL 10 MEQ TAB (MICRO K) PO SCH ×2 (08:33→21:19)
[2017-01-04] MEDS: ONDANSETRON 4 MG/2 ML (SDV) Z0FRAN IV PRN (08:33)
--- NOTE | 2017-01-04 09:49 | Occupational Ther Daily Note ---
OT Current Status-Daily Note Subjective Pt alert, lying in bed. Pt agreed to therapy. No c/o pain or nausea while lying down. When pt sat EOB nausea returned. Nrsg notified. Mental Status/Objective Patient Orientation: Person, Place, Time, Situation Functional [place] Measure 0=Not Assessed/NA 4=Minimal Assistance 1=Total Assistance 5=Supervision or Setup 2=Maximal Assistance 6=Modified [place] 3=Moderate Assistance 7=Complete [place] ADL-Treatment Functional [place] Measure 0=Not Assessed/NA 4=Minimal Assistance 1=Total Assistance 5=Supervision or Setup 2=Maximal Assistance 6=Modified [place] 3=Moderate Assistance 7=Complete IndependenceIRFPAI Quality Coding Scale 6 Independent with activity with or without an assistive device 5 Patient requires set up or clean up by helper. Patient completes activity by themselves 4 Supervision or touching assist (CGA). [place] provide cues , steadying assist 3 The helper provides less than half the effort to complete the activity 2 The helper provides more than half the effort to complete the activity 1 Dependent. The helper does all the effort to complete an activity 7 Patient refused to complete or attempt activity 9 The patient did not perform the activity before the current illness or injury 88 Not attempted due to Medical conditions or safety concerns Eating (FIM): 5 (Pt is able to open packages and most containers. Requires assistance to open milk container. Pt is able to use regular utensils to feed self.) Bathing (FIM): 4 (Sitting EOB, pt is able to bathe upper body then lower body with long handle sponge after set up. Pt sits and cleanses shailesh area then requires assist in standing to cleanse buttocks. Pt is able to dry self.) Upper Body (FIM): 5 (After set up, pt is able to complete by self.) Lower Body Dressing (FIM): 3 (Pt educated on using AE for dressing. Pt required assistance to get underwear/pants over feet and tie shoes. Pt was able to stand with SBA hike pants over hips and slide shoes on.) Toileting (FIM): 5 (Pt is able to stand and position urinal with SBA then assist to dump urinal.) Pt takes increased time to complete ADL tasks. Frequent breaks due to nausea. After therapy, pt eating breakfast sitting on EOB. Call light/phone in reach. All needs met in room. OT Short Term Goals Short Term Goals Time Frame: Jan 04, 2017 Eating(FIM): 5 Grooming(FIM): 5 Bathing(FIM): 4 Upper Body Dressing(FIM): 4 Lower Body Dressing(FIM): 4 Toileting(FIM): 4 Transfers (B,C,W/C) (FIM): 4 Toilet/Commode Transfer(FIM): 5 Shower Transfer(FIM): 5 Additional Short Term Goals: 1-Demonstrate ADL Tasks, 2-Verbalize Understanding , 3-ImproveStrength/Juli 1=Demonstrate adherence to instructed precautions during ADL tasks. 2=Patient will verbalize/demonstrate understanding of assistive devices/ modifications for ADL. 3=Patient will improve strength/tolerance for activity to enable patient to perform ADL's. OT Care Home Goals Project Mgr Goals Time Frame: January 18, 2017 Eating (FIM): 6 Eating (QC): 6 Groomin Oral Hygiene (QC): 6 Bathing(FIM): 5 Shower/Bathe Self (QC): 5 Upper Body Dressing(FIM): 6 Upper Body Dressing (QC): 6 Lower Body Dressing(FIM): 6 Lower Body Dressing (QC): 6 On/Off Footwear (QC): 6 Toileting(FIM): 6 Toileting Hygiene (QC): 6 Transfers (B,C,W/C) (FIM): 6 Toilet/Commode Transfer(FIM): 6 Toilet/Commode Transfer (QC): 6 Shower Transfer(FIM): 5 Additional Goals: 1-Demonstrate ADL Tasks, 2-Verbalize Understanding, 3- ImproveStrength/Juli 1=Demonstrate adherence to instructed precautions during ADL tasks. 2=Patient will verbalize/demonstrate understanding of assistive devices/ modifications for ADL. 3=Patient will improve strength/tolerance for activity to enable patient to perform ADL's. OT Education/Plan Discharge Recommendations Plan/Recommendations: Continue POC Treatment Plan/Plan of Care Patient would benefit from OT for education, treatment and training to promote independence in ADL's, mobility, safety and/or upper extremity function for ADL' s. Plan of Care: ADL Retraining, Caregiver Training, Functional Mobility, Group Exercise/Act as Ind, UE Funct Exercise/Act Treatment Duration: January 18, 2017 Visits Per Week: 10-12 Minutes/Day (M-F): 60-90 Minutes/Day (Sat/Ferrara): prn Agreement: Yes Rehab Potential: Fair Time/GCodes Start Time: 07:15 Stop Time: 08:15 Total Time Billed (hr/min): 60 Billed Treatment Time 1 visit-ADL 4 (60 min) SOMMER SORENSON Jan 04, 2017 09:49
--- NOTE | 2017-01-04 09:59 | Physical Therapy Daily Note ---
PT Daily Note-Current Subjective Pt agrees to Rx. States he really likes the bilat platform attachments on his FWW and gets around much better with them. Explains what the stair situation is for him at home and agrees to attempt them this pm Pain Numeric Pain Scale: 4 Location: Right Location Body Site: Knee Pain Description: Ache Mental Status Patient Orientation: Normal For Age Transfers Functional [place] Measure 0=Not Assessed/NA 4=Minimal Assistance 1=Total Assistance 5=Supervision or Setup 2=Maximal Assistance 6=Modified [place] 3=Moderate Assistance 7=Complete IndependenceIRFPAI Quality Coding Scale 6 Independent with activity with or without an assistive device 5 Patient requires set up or clean up by helper. Patient completes activity by themselves 4 Supervision or touching assist (CGA). [place] provide cues , steadying assist 3 The helper provides less than half the effort to complete the activity 2 The helper provides more than half the effort to complete the activity 1 Dependent. The helper does all the effort to complete an activity 7 Patient refused to complete or attempt activity 9 The patient did not perform the activity before the current illness or injury 88 Not attempted due to Medical conditions or safety concerns Transfers (B, C, W/C) (FIM): 4 Scootin Rollin Supine to/from Sit: 4 Sit to/from Stand: 4 Bed to/from Chair: 4 cushion applied to pts w/c seat which enabled him to progress from min assist to CGA for sit to stand. Gait Training Does the Patient Walk?: Yes Gait (FIM): 2 Distance (FIM): 8=094-50 ft (125x2,50) Gait Level of Assist: 4 Gait Persons Needed: 1 Gait Assistive Device: Walker Platform narrow JAMIL, near crossovers with each step. right knee very dysfunctional and deformed, Wheelchair Training Does the Pt Use a Wheelchair?: Yes Wheelchair (FIM): 4 Wheelchair Distance: 3=150 ft Wheelchair Level of Assist: 5 Exercises Seated Therapy Exercises: Sit to stand, Long arc quads, Hip flexion Seated Reps: 12 NuStep Minutes: 10 NuStep Workload: 2 Assessment Current Status: Good Progress improved gait and TRFs with platform att and seat cushion PT Short Term Goals Short Term Goals Time Frame: Jan 04, 2017 Transfers (B,C,W/C) (FIM): 4 Gait (FIM): 2 Distance (FIM): 3=553-40 ft Gait Assistive Device: FWW Wheelchair Distance: 150'x2 Stairs (FIM): 2 # of Steps: 4 PT Review Specialist Goals Review Specialist Goals PT Review Specialist Goals Time Frame: January 18, 2017 Transfers (B,C,W/C) (FIM): 6 Sit to Lying (QC): 6 Lying-Sitting on Side/Bed(QC): 6 Sit to Stand (QC): 6 Rollin Roll Left to Right (QC): 6 Chair/Iah-uo-Xogfy Xfer(QC): 6 Car Transfer (QC): 5 Does the Patient Walk: Yes Gait (FIM): 5 Gait distance (FIM): 1=154-51 ft Walk 10 feet (QC): 5 Walk 10ft-Uneven Surface(QC): 5 Walk 50ft with 2 Turns (QC): 5 Walk 150 ft (QC): 88 Gait Assistive Device: FWW Does the Pt use WC or Scooter?: Yes Wheelchair (FIM): 6 Wheelchair distance (FIM): 3=150 ft Wheel 50 feet with 2 turns (QC: 6 Stairs (FIM): 2 # of Steps: 4 1 Step (curb) (QC): 5 4 Steps (QC): 5 12 Steps (QC): 88 Picking up an Object (QC): 88 PT Plan Treatment/Plan Treatment Plan: Continue Plan of Care Treatment Plan: Bed Mobility, Education, Functional Activity Juli, Functional Strength, Group Therapy, Gait, Safety, Therapeutic Exercise, Transfers Treatment Duration: January 18, 2017 Visits Per Week: 10-15 Minutes/Day (M-F): 60-90 Minutes/Day (Sat/Ferrara): prn Safety Risks/Education Patient Education: Gait Training, Transfer Techniques, Correct Positioning, W/ C Management, Disease Process, Safety Issues Teaching Recipient: Patient Teaching Methods: Demonstration, Discussion Response to Teaching: Verbalize Understanding, Return Demonstration, Reinforcement Needed Time/GCodes Time In: 900 Time Out: 1000 Total Billed Treatment Time: 60 Total Billed Treatment 1,GT25m,w/c15m,EX20m G Codes Necessary: ANAHI Sampson CABLE TENDER Jan 04, 2017 09:59
--- NOTE | 2017-01-04 10:35 | PM & R (SOAP) Progress Note ---
Subjective Subjective/Events-last exam Patient was seen in his room earlier today Patient min assist for transfers Appreciate Cardiology note No drainage noted from Incision site Objective Exam Last Set of Vital Signs Vital Signs Date Time Temp Pulse Resp B/P (MAP) Pulse Ox O2 Delivery O2 Flow Rate FiO2 01/04/17 08:00 Room Air 01/04/17 05:07 98.7 78 18 107/63 94 12/30/16 18:59 2.00 Capillary Refill : Less Than 3 Seconds I&O Intake and Output 01/04/17 00:00 Intake Total 820 ml Output Total 2475 ml Balance -1655 ml Intake Oral 820 ml Output Urine Total 1975 ml Stool Total 500 ml General: Alert, Oriented X3, Cooperative, No Acute Distress HEENT: Atraumatic, PERRLA, EOMI, Mucous Memb Moist/[place] Neck: Supple, No JVD Lungs: Clear to Auscultation Heart: Regular Rate, Normal S1, Normal S2 Abdomen: Normal Bowel Sounds, Soft, No Tenderness Extremities: No Clubbing, No Cyanosis, Other (trace edema) Neuro: Normal Speech, Cranial Nerves 3-12 NL Psych/Mental Status: Mental Status NL Results Lab Microbiology 01/03/17 C. 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 Dr Jaime has seen re staple removal and suturing draining area improved Consult Outside Sales Engineer re supplement-done Next Team Conference later today-Se report for full functional update and POC and ELOS Monitor for any further nausea NATALIYA KHANNA MD Jan 04, 2017 10:34
--- NOTE | 2017-01-04 11:46 | Occupational Ther Daily Note ---
OT Current Status-Daily Note Subjective Pt alert, lying in bed. Pt agreed to therapy. No c/o pain at this time. Mental Status/Objective Patient Orientation: Person, Place, Time, Situation Functional [place] Measure 0=Not Assessed/NA 4=Minimal Assistance 1=Total Assistance 5=Supervision or Setup 2=Maximal Assistance 6=Modified [place] 3=Moderate Assistance 7=Complete [place] ADL-Treatment Functional [place] Measure 0=Not Assessed/NA 4=Minimal Assistance 1=Total Assistance 5=Supervision or Setup 2=Maximal Assistance 6=Modified [place] 3=Moderate Assistance 7=Complete IndependenceIRFPAI Quality Coding Scale 6 Independent with activity with or without an assistive device 5 Patient requires set up or clean up by helper. Patient completes activity by themselves 4 Supervision or touching assist (CGA). [place] provide cues , steadying assist 3 The helper provides less than half the effort to complete the activity 2 The helper provides more than half the effort to complete the activity 1 Dependent. The helper does all the effort to complete an activity 7 Patient refused to complete or attempt activity 9 The patient did not perform the activity before the current illness or injury 88 Not attempted due to Medical conditions or safety concerns Other Treatment Pt transferred from bed to w/c with SBA using B platform FWW. Pt then was able to maneuver w/c [facility] to therapy gym then fatigued and required assistance. Pt completed UE dowel anne marie exercises with 3# wt attached for 4 exercises 2 sets 20 reps. Pt took increased time completing reps then took extended recovery break. After therapy, pt lying in bed with call light/phone in reach. All needs met in room. OT Short Term Goals Short Term Goals Time Frame: Jan 04, 2017 Eating(FIM): 5 Grooming(FIM): 5 Bathing(FIM): 4 Upper Body Dressing(FIM): 4 Lower Body Dressing(FIM): 4 Toileting(FIM): 4 Transfers (B,C,W/C) (FIM): 4 Toilet/Commode Transfer(FIM): 5 Shower Transfer(FIM): 5 Additional Short Term Goals: 1-Demonstrate ADL Tasks, 2-Verbalize Understanding , 3-ImproveStrength/Juli 1=Demonstrate adherence to instructed precautions during ADL tasks. 2=Patient will verbalize/demonstrate understanding of assistive devices/ modifications for ADL. 3=Patient will improve strength/tolerance for activity to enable patient to perform ADL's. OT Retirement Goals Technical Rep Goals Time Frame: January 18, 2017 Eating (FIM): 6 Eating (QC): 6 Groomin Oral Hygiene (QC): 6 Bathing(FIM): 5 Shower/Bathe Self (QC): 5 Upper Body Dressing(FIM): 6 Upper Body Dressing (QC): 6 Lower Body Dressing(FIM): 6 Lower Body Dressing (QC): 6 On/Off Footwear (QC): 6 Toileting(FIM): 6 Toileting Hygiene (QC): 6 Transfers (B,C,W/C) (FIM): 6 Toilet/Commode Transfer(FIM): 6 Toilet/Commode Transfer (QC): 6 Shower Transfer(FIM): 5 Additional Goals: 1-Demonstrate ADL Tasks, 2-Verbalize Understanding, 3- ImproveStrength/Juli 1=Demonstrate adherence to instructed precautions during ADL tasks. 2=Patient will verbalize/demonstrate understanding of assistive devices/ modifications for ADL. 3=Patient will improve strength/tolerance for activity to enable patient to perform ADL's. OT Education/Plan Discharge Recommendations Plan/Recommendations: Continue POC Treatment Plan/Plan of Care Patient would benefit from OT for education, treatment and training to promote independence in ADL's, mobility, safety and/or upper extremity function for ADL' s. Plan of Care: ADL Retraining, Caregiver Training, Functional Mobility, Group Exercise/Act as Ind, UE Funct Exercise/Act Treatment Duration: January 18, 2017 Visits Per Week: 10-12 Minutes/Day (M-F): 60-90 Minutes/Day (Sat/Ferrara): prn Agreement: Yes Rehab Potential: Fair Time/GCodes Start Time: 10:55 Stop Time: 11:25 Total Time Billed (hr/min): 30 Billed Treatment Time 1 visit-EX 2 (30 min) SOMMER SORENSON Jan 04, 2017 11:46
--- NOTE | 2017-01-04 13:41 | Physical Therapy Daily Note ---
PT Daily Note-Current Subjective Pt. agrees to Rx. Moves around well in bed , sleeps well on sides and back Mental Status Patient Orientation: Normal For Age Transfers Functional [place] Measure 0=Not Assessed/NA 4=Minimal Assistance 1=Total Assistance 5=Supervision or Setup 2=Maximal Assistance 6=Modified [place] 3=Moderate Assistance 7=Complete IndependenceIRFPAI Quality Coding Scale 6 Independent with activity with or without an assistive device 5 Patient requires set up or clean up by helper. Patient completes activity by themselves 4 Supervision or touching assist (CGA). [place] provide cues , steadying assist 3 The helper provides less than half the effort to complete the activity 2 The helper provides more than half the effort to complete the activity 1 Dependent. The helper does all the effort to complete an activity 7 Patient refused to complete or attempt activity 9 The patient did not perform the activity before the current illness or injury 88 Not attempted due to Medical conditions or safety concerns sup to sit to stand to sit to sup CGA Exercises Supine Ex: Ankle pumps, Quad Set, Rolling, Glut sets, Lower trunk rotation, Heel Slides, Short Arc Quads, Scooting, Straight leg raise, Hip abd/add Supine Reps: 15 rolls side to side, pulls self up in bed SBA Assessment Current Status: Good Progress PT Short Term Goals Short Term Goals Time Frame: Jan 04, 2017 Transfers (B,C,W/C) (FIM): 4 Gait (FIM): 2 Distance (FIM): 6=861-47 ft Gait Assistive Device: FWW Wheelchair Distance: 150'x2 Stairs (FIM): 2 # of Steps: 4 PT Architecture Analyst Goals Residential Goals PT Architecture Analyst Goals Time Frame: January 18, 2017 Transfers (B,C,W/C) (FIM): 6 Sit to Lying (QC): 6 Lying-Sitting on Side/Bed(QC): 6 Sit to Stand (QC): 6 Rollin Roll Left to Right (QC): 6 Chair/Xmm-zv-Fdxmo Xfer(QC): 6 Car Transfer (QC): 5 Does the Patient Walk: Yes Gait (FIM): 5 Gait distance (FIM): 7=585-99 ft Walk 10 feet (QC): 5 Walk 10ft-Uneven Surface(QC): 5 Walk 50ft with 2 Turns (QC): 5 Walk 150 ft (QC): 88 Gait Assistive Device: FWW Does the Pt use WC or Scooter?: Yes Wheelchair (FIM): 6 Wheelchair distance (FIM): 3=150 ft Wheel 50 feet with 2 turns (QC: 6 Stairs (FIM): 2 # of Steps: 4 1 Step (curb) (QC): 5 4 Steps (QC): 5 12 Steps (QC): 88 Picking up an Object (QC): 88 PT Plan Treatment/Plan Treatment Plan: Bed Mobility, Education, Functional Activity Juli, Functional Strength, Group Therapy, Gait, Safety, Therapeutic Exercise, Transfers Treatment Duration: January 18, 2017 Visits Per Week: 10-15 Minutes/Day (M-F): 60-90 Minutes/Day (Sat/Ferrara): prn Safety Risks/Education Patient Education: Transfer Techniques Teaching Recipient: Patient Teaching Methods: Demonstration, Discussion Response to Teaching: Verbalize Understanding, Return Demonstration Time/GCodes Time In: 1300 Time Out: 1330 Total Billed Treatment Time: 30 Total Billed Treatment 1,EX30m G Codes Necessary: ANAHI Sampson TRIMMER AND REINFORCER Jan 04, 2017 13:41
[2017-01-04] MEDS: ENOXAPARIN 40 MG/0.4 ML (LOVENOX) SYR SC SCH ×2 (14:16→14:18)
--- NOTE | 2017-01-04 17:35 | Cardiology Progress Note ---
Subjective Subjective/Events-last exam Patient is laying down in bed, feeling better, denied any pain at this time, no further discharged from his abdomen Review of Systems General: No Chills, No Night Sweats, No Fatigue, No Malaise, No Appetite, No Other HEENT: No Head Aches, No Visual Changes, No Eye Pain, No Ear Pain, No Dysphasia , No Sinus Congestion, No Post Nasal Drip, No Sore Throat, No Other Pulmonary: No Dyspnea, No Cough, No Pleuritic Chest Pain, No Other Cardiovascular: No: Chest Pain, Edema, Lt Headedness, Orthopnea, Other, Palpitations, Paroxysmal Noc. Dyspnea Objective-Cardiology Exam Last Set of Vital Signs Vital Signs 12/30/16 01/04/17 01/04/17 18:59 05:07 08:00 Temp 98.7 Pulse 78 Resp 18 B/P (MAP) 107/63 Pulse Ox 94 O2 Delivery Room Air O2 Flow Rate 2.00 Capillary Refill : Less Than 3 Seconds I&O Intake and Output 01/04/17 00:00 Intake Total 820 ml Output Total 2475 ml Balance -1655 ml Intake Oral 820 ml Output Urine Total 1975 ml Stool Total 500 ml General: Alert, Oriented X3, Cooperative, No Acute Distress HEENT: Atraumatic, PERRLA, EOMI, Mucous Memb Moist/Ages Neck: Supple, No JVD Lungs: Clear to Auscultation Heart: Regular Rate, Normal S1, Normal S2 Abdomen: Normal Bowel Sounds, Soft, No Tenderness Extremities: No Clubbing, No Cyanosis, Other (trace edema) Neuro: Normal Speech, Cranial Nerves 3-12 NL Psych/Mental Status: Mental Status NL A/P-Cardiology Admission Diagnosis C. difficile colitis Sepsis CHF PVD Assessment/Plan C. difficile colitis, status post extended left hemicolectomy with Pam procedure, recovering slowly, Followed by Dr Jaime Short of breath, Reporting improvement. Continue to monitor. Peripheral edema, better, continue to monitor Congestive heart failure, nonischemic cardiomyopathy, acute on chronic left ventricular systolic dysfunction with most recent ejection fraction improved to 50 percent. Maintained on beta gurpreet and Entresto. Status post anoxic encephalopathy and pneumonia and sepsis early in October, improved with aggressive therapy. Back to his baseline. Continue to monitor. Status post acute renal failure. Improved, monitor renal function closely Peripheral vascular disease with history of nonhealing wounds bilaterally. Peripheral angiogram done 12/04/16 revealed moderate atherosclerotic disease on the left lower extremity, the anterior tibial artery is severely diseased on the left lower extremity but the ulcer on the left lower extremity has healed. Medical therapy is recommended. Moderate disease of the right lower extremity with good flow, with three-vessel flow down to the foot. Continue medical management at this time and continue to monitor. Small infrarenal abdominal aortic aneurysm noted during peripheral angiogram. Continue to monitor Hypertension,controlled. Continue to monitor blood pressure. Hyperlipidemia, continue to hold statin. Hyperthyroidism, history of hypothyroidism, managed by primary care physician History of pulmonary hypertension, continue to monitor History of rheumatoid arthritis. COPD, managed and followed by primary care physician Tobaccoism, patient has stopped smoking after the last admission. Encouraged to continue with smoking cessation History of chronic narcotic use, urine drug screen is positive for opioids Clinical Quality Measures DVT/VTE Risk/Contraindication: Risk Factor Score Per Nursin RFS Level Per Nursing on Admit: 4+=Very High TORY HALL MD Jan 04, 2017 17:35
[2017-01-04 18:16] VITALS: BP 114/71
[2017-01-04] MEDS: ATORVASTATIN 40 MG (LIPITOR) TABLET PO SCH (21:18)
[2017-01-05] MEDS: HYDROcodone/APAP 10 MG/325 MG (LORTAB) TAB PO PRN ×2 (03:53→14:29)
[2017-01-05 05:36] VITALS: BP 122/69
[2017-01-05] MEDS: CALCIUM CARBONATE 600 MG (CALCARB) TAB PO SCH (06:14)
[2017-01-05] MEDS: LEVOTHYROXINE 100 MCG (LEVOTHROID) TAB PO SCH (06:14)
[2017-01-05] MEDS: PANTOPRAZOLE 40 MG (PROTONIX) TAB PO SCH (06:14)
[2017-01-05] MEDS: LEVOTHYROXINE 75 MCG (LEVOTHROID) TABLET PO SCH (06:14)
[2017-01-05] MEDS: morphine ER 30 MG (MS CONTIN) TAB PO SCH ×3 (06:15→21:22)
[2017-01-05] MEDS: MAGNESIUM OXIDE (MAG-OX)400 MG TAB PO SCH ×2 (07:50→17:52)
[2017-01-05] MEDS: ASPIRIN E.C. 81 MG (ECOTRIN) TAB PO SCH (07:50)
[2017-01-05] MEDS: SACUBITRIL/VALSARTAN 24/26 MG (ENTRESTO) TABLET PO SCH ×2 (07:50→21:22)
[2017-01-05] MEDS: CARVEDILOL 3.125 MG (COREG) TABLET PO SCH ×2 (07:50→21:22)
[2017-01-05] MEDS: FUROSEMIDE 20 MG (LASIX) TAB PO SCH (07:50)
[2017-01-05] MEDS: KCL 10 MEQ TAB (MICRO K) PO SCH ×2 (07:50→21:22)
--- NOTE | 2017-01-05 09:16 | Physical Therapy Daily Note ---
PT Daily Note-Current Subjective Patient in bed pre tx, agrees to PT. Patient will need to get dressed. He is feeling pretty nauseated this morning, moving slowly, nurse gave him some nausea meds. States he has pain of 9/10 in abdomen. Appearance Patient in wheelchair at bedside waiting for OT, has nurse call, phone, tray, all needs met. Mental Status Patient Orientation: Normal For Age Transfers Functional [place] Measure 0=Not Assessed/NA 4=Minimal Assistance 1=Total Assistance 5=Supervision or Setup 2=Maximal Assistance 6=Modified [place] 3=Moderate Assistance 7=Complete IndependenceIRFPAI Quality Coding Scale 6 Independent with activity with or without an assistive device 5 Patient requires set up or clean up by helper. Patient completes activity by themselves 4 Supervision or touching assist (CGA). [place] provide cues , steadying assist 3 The helper provides less than half the effort to complete the activity 2 The helper provides more than half the effort to complete the activity 1 Dependent. The helper does all the effort to complete an activity 7 Patient refused to complete or attempt activity 9 The patient did not perform the activity before the current illness or injury 88 Not attempted due to Medical conditions or safety concerns Transfers (B, C, W/C) (FIM): 4 Scootin Rollin Supine to/from Sit: 5 Sit to/from Stand: 4 Bed to/from Chair: 4 Patient needs min assist to stand from low surfaces, CGA for transfers Gait Training Gait (FIM): 2 Distance: 75'x2 Gait Level of Assist: 4 Gait Persons Needed: 1 Bilateral platform walker, CGA, patient leads with right leg and left comes up behind it, almost a step-to gait pattern but not quite. Wheelchair Training Wheelchair (FIM): 5 Distance: 150' Wheelchair Level of Assist: 5 Type of Wheelchair: Manual patient uses both legs and both arms to propel Treatments bed mobility and transfers, ambulation, wheelchair mobility, patient also got fully dressed with min assist Assessment Current Status: Fair Progress improved ambulation, but patient needed multiple rest breaks due to fatigue and nausea PT Short Term Goals Short Term Goals Time Frame: Jan 04, 2017 Transfers (B,C,W/C) (FIM): 4 Gait (FIM): 2 Distance (FIM): 6=803-28 ft Gait Assistive Device: FWW Wheelchair Distance: 150'x2 Stairs (FIM): 2 # of Steps: 4 PT Long-Term Goals Engine Service Repairer Goals PT Long-Term Goals Time Frame: January 18, 2017 Transfers (B,C,W/C) (FIM): 6 Sit to Lying (QC): 6 Lying-Sitting on Side/Bed(QC): 6 Sit to Stand (QC): 6 Rollin Roll Left to Right (QC): 6 Chair/Vex-aj-Wgzgq Xfer(QC): 6 Car Transfer (QC): 5 Does the Patient Walk: Yes Gait (FIM): 5 Gait distance (FIM): 3=092-60 ft Walk 10 feet (QC): 5 Walk 10ft-Uneven Surface(QC): 5 Walk 50ft with 2 Turns (QC): 5 Walk 150 ft (QC): 88 Gait Assistive Device: FWW Does the Pt use WC or Scooter?: Yes Wheelchair (FIM): 6 Wheelchair distance (FIM): 3=150 ft Wheel 50 feet with 2 turns (QC: 6 Stairs (FIM): 2 # of Steps: 4 1 Step (curb) (QC): 5 4 Steps (QC): 5 12 Steps (QC): 88 Picking up an Object (QC): 88 PT Plan Problem List Problem List: Activity Tolerance, Functional Strength, Safety, Balance, Gait, Transfer, Bed Mobility, ROM Treatment/Plan Treatment Plan: Continue Plan of Care Treatment Plan: Bed Mobility, Education, Functional Activity Juli, Functional Strength, Group Therapy, Gait, Safety, Therapeutic Exercise, Transfers Treatment Duration: January 18, 2017 Visits Per Week: 10-15 Minutes/Day (M-F): 60-90 Minutes/Day (Sat/Ferrara): prn Safety Risks/Education Patient Education: Gait Training, Transfer Techniques, Correct Positioning, W/ C Management, Safety Issues Teaching Recipient: Patient Teaching Methods: Demonstration, Discussion Response to Teaching: Reinforcement Needed Time/GCodes Time In: 800 Time Out: 845 Total Billed Treatment Time: 45 Total Billed Treatment 1 visit GT 15' FA 15' [facility] 15' ELSY AGUIRRE PT Jan 05, 2017 09:16
--- NOTE | 2017-01-05 10:56 | Occupational Ther Daily Note ---
OT Current Status-Daily Note Subjective Pt alert, sitting in w/c. Pt c/o neck stiffness and pain and nausea. Nrsg had given zofran to pt for nausea. Pt agreed to therapy. Mental Status/Objective Patient Orientation: Person, Place, Time, Situation Functional [place] Measure 0=Not Assessed/NA 4=Minimal Assistance 1=Total Assistance 5=Supervision or Setup 2=Maximal Assistance 6=Modified [place] 3=Moderate Assistance 7=Complete [place] ADL-Treatment Pt had difficulty with raising UE due to stiff neck and shldrs. BRADSHAW completed PROM and massage to shldrs and scapula which decreased stiffness in shldrs and increased AROM. Pt c/o nausea and fatigue. Pt agreed to shower today. Sites covered up prior to shower. Pt requested to don hospital gown after shower. Pt takes extended time to complete tasks due to fatigue and nausea. After shower pt lying in bed with call light/phone in reach. All needs met in room. Functional [place] Measure 0=Not Assessed/NA 4=Minimal Assistance 1=Total Assistance 5=Supervision or Setup 2=Maximal Assistance 6=Modified [place] 3=Moderate Assistance 7=Complete IndependenceIRFPAI Quality Coding Scale 6 Independent with activity with or without an assistive device 5 Patient requires set up or clean up by helper. Patient completes activity by themselves 4 Supervision or touching assist (CGA). [place] provide cues , steadying assist 3 The helper provides less than half the effort to complete the activity 2 The helper provides more than half the effort to complete the activity 1 Dependent. The helper does all the effort to complete an activity 7 Patient refused to complete or attempt activity 9 The patient did not perform the activity before the current illness or injury 88 Not attempted due to Medical conditions or safety concerns Grooming (FIM): 5 (Pt able to complete though due to arthritis and swelling in hands pt is not as efficient at times.) Bathing (FIM): 4 (Pt is able to bathe upper body and lower body with long handle sponge. Requires assistance to shampoo hair due to decrease strength and ROM of hands and cleansing buttocks.) Bathing Location: L Arm, R Arm, L Upper Leg, R Upper Leg, L Lower Leg ( including foot), R Lower Leg (including foot), Chest, Abdomen, Perineal Area Shower Transfer(FIM): 4 (Using shower bench, w/c and grabbars pt able to transfer with min A.) OT Short Term Goals Short Term Goals Time Frame: Jan 04, 2017 Eating(FIM): 5 Grooming(FIM): 5 Bathing(FIM): 4 Upper Body Dressing(FIM): 4 Lower Body Dressing(FIM): 4 Toileting(FIM): 4 Transfers (B,C,W/C) (FIM): 4 Toilet/Commode Transfer(FIM): 5 Shower Transfer(FIM): 5 Additional Short Term Goals: 1-Demonstrate ADL Tasks, 2-Verbalize Understanding , 3-ImproveStrength/Juli 1=Demonstrate adherence to instructed precautions during ADL tasks. 2=Patient will verbalize/demonstrate understanding of assistive devices/ modifications for ADL. 3=Patient will improve strength/tolerance for activity to enable patient to perform ADL's. OT Usp Goals Usp Goals Time Frame: January 18, 2017 Eating (FIM): 6 Eating (QC): 6 Groomin Oral Hygiene (QC): 6 Bathing(FIM): 5 Shower/Bathe Self (QC): 5 Upper Body Dressing(FIM): 6 Upper Body Dressing (QC): 6 Lower Body Dressing(FIM): 6 Lower Body Dressing (QC): 6 On/Off Footwear (QC): 6 Toileting(FIM): 6 Toileting Hygiene (QC): 6 Transfers (B,C,W/C) (FIM): 6 Toilet/Commode Transfer(FIM): 6 Toilet/Commode Transfer (QC): 6 Shower Transfer(FIM): 5 Additional Goals: 1-Demonstrate ADL Tasks, 2-Verbalize Understanding, 3- ImproveStrength/Juli 1=Demonstrate adherence to instructed precautions during ADL tasks. 2=Patient will verbalize/demonstrate understanding of assistive devices/ modifications for ADL. 3=Patient will improve strength/tolerance for activity to enable patient to perform ADL's. OT Education/Plan Discharge Recommendations Plan/Recommendations: Continue POC Treatment Plan/Plan of Care Patient would benefit from OT for education, treatment and training to promote independence in ADL's, mobility, safety and/or upper extremity function for ADL' s. Plan of Care: ADL Retraining, Caregiver Training, Functional Mobility, Group Exercise/Act as Ind, UE Funct Exercise/Act Treatment Duration: January 18, 2017 Visits Per Week: 10-12 Minutes/Day (M-F): 60-90 Minutes/Day (Sat/Ferrara): prn Agreement: Yes Rehab Potential: Fair Time/GCodes Start Time: 09:15 Stop Time: 10:45 Total Time Billed (hr/min): 90 Billed Treatment Time 1 visit-ADL 4 (60 min) FA 2 (30 min) SOMMER SORENSON Jan 05, 2017 10:56
[2017-01-05] MEDS: ONDANSETRON 4 MG/2 ML (SDV) Z0FRAN IV PRN (10:59)
--- NOTE | 2017-01-05 15:05 | Physical Therapy Daily Note ---
PT Daily Note-Current Subjective Patient agrees to therapy. Pain Numeric Pain Scale: 5-Moderate Pain Location: Right Location Body Site: Knee Pain Description: Ache Mental Status Patient Orientation: Normal For Age Transfers Functional [place] Measure 0=Not Assessed/NA 4=Minimal Assistance 1=Total Assistance 5=Supervision or Setup 2=Maximal Assistance 6=Modified [place] 3=Moderate Assistance 7=Complete IndependenceIRFPAI Quality Coding Scale 6 Independent with activity with or without an assistive device 5 Patient requires set up or clean up by helper. Patient completes activity by themselves 4 Supervision or touching assist (CGA). [place] provide cues , steadying assist 3 The helper provides less than half the effort to complete the activity 2 The helper provides more than half the effort to complete the activity 1 Dependent. The helper does all the effort to complete an activity 7 Patient refused to complete or attempt activity 9 The patient did not perform the activity before the current illness or injury 88 Not attempted due to Medical conditions or safety concerns Transfers (B, C, W/C) (FIM): 5 Scootin Rollin Roll Left to Right (QC): 5 Supine to/from Sit: 6 Sit to/from Stand: 5 Sit to Lying (QC): 5 Sit to Stand (QC): 5 Chair/Sis-sp-Mmhle Xfer(QC): 5 Bed to/from Chair: 5 Car Transfer (QC): 5 close SBA with gait belt in place Gait Training Does the Patient Walk?: Yes Gait (FIM): 5 Distance (FIM): 3=150 ft Distance: 150' x 2 Walk 10 feet (QC): 5 Walk 50 ft with 2 Turns(QC): 5 Walk 150 ft (QC): 5 Gait Level of Assist: 5 Gait Assistive Device: Walker Platform (bilateral) step to sequence leading with right LE Wheelchair Training Does the Pt Use a Wheelchair?: Yes Wheelchair (FIM): 1 Wheelchair Distance: 1=up to 49 ft Distance: 30' Wheelchair Level of Assist: 5 Exercises Seated Therapy Exercises: Long arc quads, Hip flexion Seated Reps: 15 NuStep Minutes: 10 NuStep Workload: 5 Assessment Patient improving with treatment and is highly motivated. Patient fatigues with activity and requires short recovery periods. PT to continue to increase activity as tolerated by patient. PT Short Term Goals Short Term Goals Time Frame: Jan 04, 2017 Transfers (B,C,W/C) (FIM): 4 Gait (FIM): 2 Distance (FIM): 3=329-35 ft Gait Assistive Device: FWW Wheelchair Distance: 150' Stairs (FIM): 2 # of Steps: 4 PT Butter Maker Goals Assisted Goals PT Assisted Goals Time Frame: January 18, 2017 Transfers (B,C,W/C) (FIM): 6 Sit to Lying (QC): 6 Lying-Sitting on Side/Bed(QC): 6 Sit to Stand (QC): 6 Rollin Roll Left to Right (QC): 6 Chair/Hov-dk-Pfbnu Xfer(QC): 6 Car Transfer (QC): 5 Does the Patient Walk: Yes Gait (FIM): 5 Gait distance (FIM): 9=280-78 ft Walk 10 feet (QC): 5 Walk 10ft-Uneven Surface(QC): 5 Walk 50ft with 2 Turns (QC): 5 Walk 150 ft (QC): 88 Gait Assistive Device: FWW Does the Pt use WC or Scooter?: Yes Wheelchair (FIM): 6 Wheelchair distance (FIM): 3=150 ft Wheel 50 feet with 2 turns (QC: 6 Stairs (FIM): 2 # of Steps: 4 1 Step (curb) (QC): 5 4 Steps (QC): 5 12 Steps (QC): 88 Picking up an Object (QC): 88 PT Plan Treatment/Plan Treatment Plan: Continue Plan of Care Treatment Plan: Bed Mobility, Education, Functional Activity Juli, Functional Strength, Group Therapy, Gait, Safety, Therapeutic Exercise, Transfers Treatment Duration: January 18, 2017 Visits Per Week: 10-15 Minutes/Day (M-F): 60-90 Minutes/Day (Sat/Ferrara): prn Time/GCodes Time In: 1415 Time Out: 1500 Total Billed Treatment Time: 45 Total Billed Treatment 1 visit GT x 2 25 min EX 20 min LIZET SARMIENTO PT Jan 05, 2017 15:05
[2017-01-05 18:15] VITALS: BP 99/65
[2017-01-05] MEDS: ATORVASTATIN 40 MG (LIPITOR) TABLET PO SCH (21:22)
[2017-01-06 05:00] VITALS: BP 103/63
[2017-01-06] MEDS: CALCIUM CARBONATE 600 MG (CALCARB) TAB PO SCH (05:49)
[2017-01-06] MEDS: LEVOTHYROXINE 75 MCG (LEVOTHROID) TABLET PO SCH (05:49)
[2017-01-06] MEDS: LEVOTHYROXINE 100 MCG (LEVOTHROID) TAB PO SCH (05:50)
[2017-01-06] MEDS: PANTOPRAZOLE 40 MG (PROTONIX) TAB PO SCH (05:50)
[2017-01-06] MEDS: morphine ER 30 MG (MS CONTIN) TAB PO SCH ×3 (05:50→21:05)
[2017-01-06] MEDS: CARVEDILOL 3.125 MG (COREG) TABLET PO SCH ×2 (07:55→20:46)
[2017-01-06] MEDS: KCL 10 MEQ TAB (MICRO K) PO SCH ×2 (07:55→20:46)
[2017-01-06] MEDS: FUROSEMIDE 20 MG (LASIX) TAB PO SCH (07:55)
[2017-01-06] MEDS: MAGNESIUM OXIDE (MAG-OX)400 MG TAB PO SCH ×2 (07:55→18:00)
[2017-01-06] MEDS: SACUBITRIL/VALSARTAN 24/26 MG (ENTRESTO) TABLET PO SCH ×2 (07:55→20:46)
[2017-01-06] MEDS: ASPIRIN E.C. 81 MG (ECOTRIN) TAB PO SCH (07:55)
[2017-01-06] MEDS: HYDROcodone/APAP 10 MG/325 MG (LORTAB) TAB PO PRN ×3 (08:03→21:46)
--- NOTE | 2017-01-06 11:52 | Physical Therapy Daily Note ---
PT Daily Note-Current Subjective Patient in wheelchair at bedside pre tx, agrees to PT but states he has a lot of pain and is very tired and is not sure how much he can do. Patient has 8/10 pain in right hand (RA), right knee, and abdomen. Appearance Patient BTB post tx with nurse call, phone, tray, all needs met. Mental Status Patient Orientation: Normal For Age Transfers Functional [place] Measure 0=Not Assessed/NA 4=Minimal Assistance 1=Total Assistance 5=Supervision or Setup 2=Maximal Assistance 6=Modified [place] 3=Moderate Assistance 7=Complete IndependenceIRFPAI Quality Coding Scale 6 Independent with activity with or without an assistive device 5 Patient requires set up or clean up by helper. Patient completes activity by themselves 4 Supervision or touching assist (CGA). [place] provide cues , steadying assist 3 The helper provides less than half the effort to complete the activity 2 The helper provides more than half the effort to complete the activity 1 Dependent. The helper does all the effort to complete an activity 7 Patient refused to complete or attempt activity 9 The patient did not perform the activity before the current illness or injury 88 Not attempted due to Medical conditions or safety concerns Transfers (B, C, W/C) (FIM): 5 Scootin Rollin Supine to/from Sit: 5 Sit to/from Stand: 5 Bed to/from Chair: 5 Patient performs a stand pivot transfer slowly but safely, no assistance needed. Gait Training Gait (FIM): 2 Distance: 100' Gait Level of Assist: 4 Gait Persons Needed: 1 Patient ambulated 100' with CGA using a bilateral platform walker, he needed a couple short standing rest breaks, patient leads with his right leg and his left is always behind. Wheelchair Training Wheelchair (FIM): 5 Distance: 150' Wheelchair Level of Assist: 5 Type of Wheelchair: Manual Exercises Seated Therapy Exercises: Ankle pumps, Hip flexion, Hip abd/add Seated Reps: 20 Standing: Heel/toe raises, Mini squats Standing Reps: 15 LAQ alternating for 5 min NuStep Minutes: 15 NuStep Workload: 5 Treatments bed mobility and transfer training, balance and endurance training, functional strengthening, gait training, wheelchair mobility Assessment Current Status: Poor Progress Patient had a lot of trouble today due to fatigue and increased pain. PT Short Term Goals Short Term Goals Time Frame: Jan 04, 2017 Transfers (B,C,W/C) (FIM): 4 Gait (FIM): 2 Distance (FIM): 4=373-04 ft Gait Assistive Device: FWW Wheelchair Distance: 30' Stairs (FIM): 2 # of Steps: 4 PT Head Cd Reactor Operator Goals Head Cd Reactor Operator Goals PT Head Cd Reactor Operator Goals Time Frame: January 18, 2017 Transfers (B,C,W/C) (FIM): 6 Sit to Lying (QC): 6 Lying-Sitting on Side/Bed(QC): 6 Sit to Stand (QC): 6 Rollin Roll Left to Right (QC): 6 Chair/Gqc-hg-Zdiod Xfer(QC): 6 Car Transfer (QC): 5 Does the Patient Walk: Yes Gait (FIM): 5 Gait distance (FIM): 7=814-09 ft Walk 10 feet (QC): 5 Walk 10ft-Uneven Surface(QC): 5 Walk 50ft with 2 Turns (QC): 5 Walk 150 ft (QC): 88 Gait Assistive Device: FWW Does the Pt use WC or Scooter?: Yes Wheelchair (FIM): 6 Wheelchair distance (FIM): 3=150 ft Wheel 50 feet with 2 turns (QC: 6 Stairs (FIM): 2 # of Steps: 4 1 Step (curb) (QC): 5 4 Steps (QC): 5 12 Steps (QC): 88 Picking up an Object (QC): 88 PT Plan Problem List Problem List: Activity Tolerance, Functional Strength, Safety, Balance, Gait, Transfer, Bed Mobility, ROM Treatment/Plan Treatment Plan: Continue Plan of Care Treatment Plan: Bed Mobility, Education, Functional Activity Juli, Functional Strength, Group Therapy, Gait, Safety, Therapeutic Exercise, Transfers Treatment Duration: January 18, 2017 Visits Per Week: 10-15 Minutes/Day (M-F): 60-90 Minutes/Day (Sat/Ferrara): prn Safety Risks/Education Patient Education: Gait Training, Transfer Techniques, Correct Positioning, W/ C Management, Safety Issues Teaching Recipient: Patient Teaching Methods: Demonstration, Discussion Response to Teaching: Reinforcement Needed Time/GCodes Time In: 1045 Time Out: 1145 Total Billed Treatment Time: 60 Total Billed Treatment 1 visit EX 30 min GT 15 min FA 15 min ELSY AGUIRRE PT Jan 06, 2017 11:52
--- NOTE | 2017-01-06 12:50 | Occupational Ther Daily Note ---
OT Current Status-Daily Note Subjective Pt alert, lying in bed. Pt agreed to therapy. No c/o pain at this time. Pt was asking about a muscle relaxer that he took at home and was wondering if he could get it here. Pt was directed to ask nrsg. Mental Status/Objective Patient Orientation: Person, Place, Time, Situation Functional [place] Measure 0=Not Assessed/NA 4=Minimal Assistance 1=Total Assistance 5=Supervision or Setup 2=Maximal Assistance 6=Modified [place] 3=Moderate Assistance 7=Complete [place] ADL-Treatment Functional [place] Measure 0=Not Assessed/NA 4=Minimal Assistance 1=Total Assistance 5=Supervision or Setup 2=Maximal Assistance 6=Modified [place] 3=Moderate Assistance 7=Complete IndependenceIRFPAI Quality Coding Scale 6 Independent with activity with or without an assistive device 5 Patient requires set up or clean up by helper. Patient completes activity by themselves 4 Supervision or touching assist (CGA). [place] provide cues , steadying assist 3 The helper provides less than half the effort to complete the activity 2 The helper provides more than half the effort to complete the activity 1 Dependent. The helper does all the effort to complete an activity 7 Patient refused to complete or attempt activity 9 The patient did not perform the activity before the current illness or injury 88 Not attempted due to Medical conditions or safety concerns Lower Body Dressing (FIM): 4 (Pt using AE for lower body dressing with education and min A for cues. Pt able to don shoes, required assist to tie shoes.) Transfers (B, C, W/C) (FIM): 4 (CGA for stand pivot transfers.) Other Treatment Pt completed arm bike duration 15 min at 15 gutierrez resistance to increase strength and activity tolerance for daily functional tasks. Pt took 3 extended breaks during arm bike. Pt then complete UE dowel anne marie exercises with 3# wt attached, elbow flex/ext (2 sets 15 reps) and shldr exercise 2 sets 10 reps with extended breaks between reps. After therapy, pt sitting in w/c in room with nrsg present. All needs met in room. OT Short Term Goals Short Term Goals Time Frame: Jan 04, 2017 Eating(FIM): 5 Grooming(FIM): 5 Bathing(FIM): 4 Upper Body Dressing(FIM): 4 Lower Body Dressing(FIM): 4 Toileting(FIM): 4 Transfers (B,C,W/C) (FIM): 4 Toilet/Commode Transfer(FIM): 5 Shower Transfer(FIM): 5 Additional Short Term Goals: 1-Demonstrate ADL Tasks, 2-Verbalize Understanding , 3-ImproveStrength/Juli 1=Demonstrate adherence to instructed precautions during ADL tasks. 2=Patient will verbalize/demonstrate understanding of assistive devices/ modifications for ADL. 3=Patient will improve strength/tolerance for activity to enable patient to perform ADL's. OT Offset Plate Preparation Supervisor Goals Offset Plate Preparation Supervisor Goals Time Frame: January 18, 2017 Eating (FIM): 6 Eating (QC): 6 Groomin Oral Hygiene (QC): 6 Bathing(FIM): 5 Shower/Bathe Self (QC): 5 Upper Body Dressing(FIM): 6 Upper Body Dressing (QC): 6 Lower Body Dressing(FIM): 6 Lower Body Dressing (QC): 6 On/Off Footwear (QC): 6 Toileting(FIM): 6 Toileting Hygiene (QC): 6 Transfers (B,C,W/C) (FIM): 6 Toilet/Commode Transfer(FIM): 6 Toilet/Commode Transfer (QC): 6 Shower Transfer(FIM): 5 Additional Goals: 1-Demonstrate ADL Tasks, 2-Verbalize Understanding, 3- ImproveStrength/Juli 1=Demonstrate adherence to instructed precautions during ADL tasks. 2=Patient will verbalize/demonstrate understanding of assistive devices/ modifications for ADL. 3=Patient will improve strength/tolerance for activity to enable patient to perform ADL's. OT Education/Plan Discharge Recommendations Plan/Recommendations: Continue POC Treatment Plan/Plan of Care Patient would benefit from OT for education, treatment and training to promote independence in ADL's, mobility, safety and/or upper extremity function for ADL' s. Plan of Care: ADL Retraining, Caregiver Training, Functional Mobility, Group Exercise/Act as Ind, UE Funct Exercise/Act Treatment Duration: January 18, 2017 Visits Per Week: 10-12 Minutes/Day (M-F): 60-90 Minutes/Day (Sat/Ferrara): prn Agreement: Yes Rehab Potential: Fair Time/GCodes Start Time: 09:45 Stop Time: 10:45 Total Time Billed (hr/min): 60 Billed Treatment Time 1 visit-ADL 2 (30 min) EX 2 (30 min) SOMMER SORENSON Jan 06, 2017 12:50
--- NOTE | 2017-01-06 14:54 | Therapy Group Daily Note ---
Therapy Daily Group Note Patient Education Topic Other List Below (ARU description/expectations, Stroke education) Exercises LE Seated Exercise, Fine Motor, UE Exercise Other/Notes Pt maneuvered w/c to OT/PT group. OT/PT group consisted of introductions (name, place living, 1st vehicle driven), socialization, ARU description/expectations, stroke education, UE/LE seated exercises, fine motor with visual perception activities. Pt contributed to group discussions appropriately and ask questions concerning educational topics. Pt was able to complete UE/LE exercises without difficulty. Pt was able to complete activities and assist other pt's with task. After group, pt maneuvered w/c to room and CGA to transfer into bed. Call light/phone in reach. All needs met in room. Start Time: 13:00 Stop Time: 14:30 Total Billed Treatment Time: 90 Total Billed Treatment 1-GRP SOMMER SORENSON Jan 06, 2017 14:54
[2017-01-06] MEDS: ENOXAPARIN 40 MG/0.4 ML (LOVENOX) SYR SC SCH (15:03)
[2017-01-06 18:40] VITALS: BP 96/61
[2017-01-06 20:44] VITALS: BP 108/61
[2017-01-06] MEDS: ATORVASTATIN 40 MG (LIPITOR) TABLET PO SCH (20:46)
[2017-01-07] MEDS: HYDROcodone/APAP 10 MG/325 MG (LORTAB) TAB PO PRN ×4 (04:15→23:15)
[2017-01-07 05:33] VITALS: BP 105/64
[2017-01-07] MEDS: CALCIUM CARBONATE 600 MG (CALCARB) TAB PO SCH (06:18)
[2017-01-07] MEDS: PANTOPRAZOLE 40 MG (PROTONIX) TAB PO SCH (06:18)
[2017-01-07] MEDS: LEVOTHYROXINE 100 MCG (LEVOTHROID) TAB PO SCH (06:18)
[2017-01-07] MEDS: morphine ER 30 MG (MS CONTIN) TAB PO SCH ×3 (06:18→21:17)
[2017-01-07] MEDS: LEVOTHYROXINE 75 MCG (LEVOTHROID) TABLET PO SCH (06:18)
--- NOTE | 2017-01-07 07:58 | PM & R (SOAP) Progress Note ---
Subjective Subjective/Events-last exam Patient was seen in his room this AM Patient SBA for transfers.No drainage noted from incision site. Patient requests assistance with changing Colostomy bag .Discussed case with RN-She will f/u. Objective Exam Last Set of Vital Signs Vital Signs Date Time Temp Pulse Resp B/P (MAP) Pulse Ox O2 Delivery O2 Flow Rate FiO2 01/07/17 05:33 97.8 84 20 105/64 98 Room Air Capillary Refill : Less Than 3 Seconds I&O Intake and Output 01/07/17 00:00 Intake Total 870 ml Output Total 1575 ml Balance -705 ml Intake Oral 870 ml Output Urine Total 1275 ml Stool Total 300 ml General: Alert, Oriented X3, Cooperative, No Acute Distress HEENT: Atraumatic, PERRLA, EOMI, Mucous Memb Moist/[place] Neck: Supple, No JVD Lungs: Clear to Auscultation Heart: Regular Rate, Normal S1, Normal S2 Abdomen: Normal Bowel Sounds, Soft, No Tenderness Extremities: No Clubbing, No Cyanosis, Other (trace edema) Neuro: Normal Speech, Cranial Nerves 3-12 NL Psych/Mental Status: Mental Status NL Results Lab Microbiology 01/05/17 C. 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 Dr Jaime has seen re staple removal and suturing draining area improved Consult Frame Wirer re supplement-done Monitor for any further nausea Possible discharge next week Will f/u with SW on Monday01/09/17 re details. NATALIYA KHANNA MD Jan 07, 2017 07:58
[2017-01-07] MEDS: CARVEDILOL 3.125 MG (COREG) TABLET PO SCH ×2 (08:05→21:17)
[2017-01-07] MEDS: ASPIRIN E.C. 81 MG (ECOTRIN) TAB PO SCH (08:05)
[2017-01-07] MEDS: SACUBITRIL/VALSARTAN 24/26 MG (ENTRESTO) TABLET PO SCH ×2 (08:05→21:17)
[2017-01-07] MEDS: KCL 10 MEQ TAB (MICRO K) PO SCH ×2 (08:05→21:17)
[2017-01-07] MEDS: FUROSEMIDE 20 MG (LASIX) TAB PO SCH (08:05)
[2017-01-07] MEDS: MAGNESIUM OXIDE (MAG-OX)400 MG TAB PO SCH ×2 (08:05→17:06)
--- NOTE | 2017-01-07 09:49 | Physical Therapy Daily Note ---
PT Daily Note-Current Subjective Patient is very agreeable to participate with PT. Pain Numeric Pain Scale: 5-Moderate Pain Location: Lower Location Body Site: Abdomen Pain Description: Pressure Mental Status Patient Orientation: Normal For Age Transfers Functional [place] Measure 0=Not Assessed/NA 4=Minimal Assistance 1=Total Assistance 5=Supervision or Setup 2=Maximal Assistance 6=Modified [place] 3=Moderate Assistance 7=Complete IndependenceIRFPAI Quality Coding Scale 6 Independent with activity with or without an assistive device 5 Patient requires set up or clean up by helper. Patient completes activity by themselves 4 Supervision or touching assist (CGA). [place] provide cues , steadying assist 3 The helper provides less than half the effort to complete the activity 2 The helper provides more than half the effort to complete the activity 1 Dependent. The helper does all the effort to complete an activity 7 Patient refused to complete or attempt activity 9 The patient did not perform the activity before the current illness or injury 88 Not attempted due to Medical conditions or safety concerns Transfers (B, C, W/C) (FIM): 5 Scootin Rollin Roll Left to Right (QC): 5 Supine to/from Sit: 5 Sit to/from Stand: 5 Sit to Lying (QC): 5 Sit to Stand (QC): 5 Chair/Kzy-vq-Qcler Xfer(QC): 5 Bed to/from Chair: 5 SBA with SPT bed to w/c Wheelchair Training Does the Pt Use a Wheelchair?: Yes Wheelchair (FIM): 5 Wheelchair Distance: 3=150 ft Distance: 150' x 2 Wheelchair Level of Assist: 5 Type of Wheelchair: Manual Exercises NuStep Minutes: 10 NuStep Workload: 4 Assessment Patient improving with functional strength by demonstrating increase tolerance with using the NuStep. PT Short Term Goals Short Term Goals Time Frame: Jan 04, 2017 Transfers (B,C,W/C) (FIM): 4 Gait (FIM): 2 Distance (FIM): 8=568-91 ft Gait Assistive Device: FWW Wheelchair Distance: 150' Stairs (FIM): 2 # of Steps: 4 PT Care Home Goals Pipe Buffer Goals PT Pipe Buffer Goals Time Frame: January 18, 2017 Transfers (B,C,W/C) (FIM): 6 Sit to Lying (QC): 6 Lying-Sitting on Side/Bed(QC): 6 Sit to Stand (QC): 6 Rollin Roll Left to Right (QC): 6 Chair/Anp-da-Guotc Xfer(QC): 6 Car Transfer (QC): 5 Does the Patient Walk: Yes Gait (FIM): 5 Gait distance (FIM): 5=469-57 ft Walk 10 feet (QC): 5 Walk 10ft-Uneven Surface(QC): 5 Walk 50ft with 2 Turns (QC): 5 Walk 150 ft (QC): 88 Gait Assistive Device: FWW Does the Pt use WC or Scooter?: Yes Wheelchair (FIM): 6 Wheelchair distance (FIM): 3=150 ft Wheel 50 feet with 2 turns (QC: 6 Stairs (FIM): 2 # of Steps: 4 1 Step (curb) (QC): 5 4 Steps (QC): 5 12 Steps (QC): 88 Picking up an Object (QC): 88 PT Plan Treatment/Plan Treatment Plan: Continue Plan of Care Treatment Plan: Bed Mobility, Education, Functional Activity Juli, Functional Strength, Group Therapy, Gait, Safety, Therapeutic Exercise, Transfers Treatment Duration: January 18, 2017 Visits Per Week: 10-15 Minutes/Day (M-F): 60-90 Minutes/Day (Sat/Ferrara): prn Time/GCodes Time In: 925 Time Out: 950 Total Billed Treatment Time: 25 Total Billed Treatment 1 visit FA 15 min EX 10 min LIZET SARMIENTO PT Jan 07, 2017 09:49
[2017-01-07] MEDS: ONDANSETRON 4 MG/2 ML (SDV) Z0FRAN IV PRN (10:32)
[2017-01-07] MEDS: ENOXAPARIN 40 MG/0.4 ML (LOVENOX) SYR SC SCH (13:36)
[2017-01-07 18:00] VITALS: BP 102/66
[2017-01-07] MEDS: ATORVASTATIN 40 MG (LIPITOR) TABLET PO SCH (21:17)
[2017-01-08 05:28] VITALS: BP 100/52
[2017-01-08] MEDS: PANTOPRAZOLE 40 MG (PROTONIX) TAB PO SCH (05:35)
[2017-01-08] MEDS: LEVOTHYROXINE 75 MCG (LEVOTHROID) TABLET PO SCH (05:36)
[2017-01-08] MEDS: morphine ER 30 MG (MS CONTIN) TAB PO SCH ×3 (05:36→21:01)
[2017-01-08] MEDS: LEVOTHYROXINE 100 MCG (LEVOTHROID) TAB PO SCH (05:36)
[2017-01-08] MEDS: CALCIUM CARBONATE 600 MG (CALCARB) TAB PO SCH (05:37)
[2017-01-08 05:38] LABS: MEAN PLATELET VOLUME 9.6 FL (7.4-10.4); RED BLOOD COUNT 2.87 10^6/uL (4.35-5.85); RED CELL DISTRIBUTION WIDTH 20.2 % (10.0-14.5); WHITE BLOOD COUNT 9.9 10^3/uL (4.3-11.0)
[2017-01-08 06:24] LABS: ANION GAP 6 MMOL/L (5-14); BLOOD UREA NITROGEN 8 MG/DL (7-18); BUN/CREATININE RATIO 10; CALCIUM 7.9 MG/DL (8.5-10.1); CARBON DIOXIDE 28 MMOL/L (21-32); CHLORIDE 103 MMOL/L (98-107); CREATININE SERUM 0.82 MG/DL (0.60-1.30); GFR ESTIMATED > 60; GLUCOSE 82 MG/DL (70-105); SODIUM 137 MMOL/L (135-145)
[2017-01-08] MEDS: FUROSEMIDE 20 MG (LASIX) TAB PO SCH (11:31)
[2017-01-08] MEDS: SACUBITRIL/VALSARTAN 24/26 MG (ENTRESTO) TABLET PO SCH ×2 (11:31→21:00)
[2017-01-08] MEDS: MAGNESIUM OXIDE (MAG-OX)400 MG TAB PO SCH ×2 (11:32→16:18)
[2017-01-08] MEDS: ASPIRIN E.C. 81 MG (ECOTRIN) TAB PO SCH (11:32)
[2017-01-08] MEDS: KCL 10 MEQ TAB (MICRO K) PO SCH ×2 (11:32→21:00)
[2017-01-08] MEDS: CARVEDILOL 3.125 MG (COREG) TABLET PO SCH ×2 (12:02→21:01)
[2017-01-08] MEDS: HYDROcodone/APAP 10 MG/325 MG (LORTAB) TAB PO PRN ×2 (12:07→16:51)
[2017-01-08] MEDS: ONDANSETRON 4 MG (ZOFRAN) ORAL DISSOLVE TAB PO PRN (12:25)
[2017-01-08] MEDS: ENOXAPARIN 40 MG/0.4 ML (LOVENOX) SYR SC SCH (15:54)
[2017-01-08 17:46] VITALS: BP 106/62
[2017-01-08] MEDS: ATORVASTATIN 40 MG (LIPITOR) TABLET PO SCH (21:01)
[2017-01-09] MEDS: CALCIUM CARBONATE 600 MG (CALCARB) TAB PO SCH (06:02)
[2017-01-09] MEDS: PANTOPRAZOLE 40 MG (PROTONIX) TAB PO SCH (06:02)
[2017-01-09] MEDS: LEVOTHYROXINE 75 MCG (LEVOTHROID) TABLET PO SCH (06:02)
[2017-01-09] MEDS: morphine ER 30 MG (MS CONTIN) TAB PO SCH ×3 (06:02→21:41)
[2017-01-09] MEDS: LEVOTHYROXINE 100 MCG (LEVOTHROID) TAB PO SCH (06:02)
[2017-01-09 06:26] VITALS: BP 116/71
[2017-01-09] MEDS: MAGNESIUM OXIDE (MAG-OX)400 MG TAB PO SCH ×2 (08:14→19:02)
[2017-01-09] MEDS: KCL 10 MEQ TAB (MICRO K) PO SCH ×2 (08:14→20:16)
[2017-01-09] MEDS: SACUBITRIL/VALSARTAN 24/26 MG (ENTRESTO) TABLET PO SCH ×2 (08:14→20:16)
[2017-01-09] MEDS: CARVEDILOL 3.125 MG (COREG) TABLET PO SCH ×2 (08:14→20:16)
[2017-01-09] MEDS: ASPIRIN E.C. 81 MG (ECOTRIN) TAB PO SCH (08:14)
[2017-01-09] MEDS: FUROSEMIDE 20 MG (LASIX) TAB PO SCH (08:14)
--- NOTE | 2017-01-09 08:33 | Cardiology Progress Note ---
Subjective Subjective/Events-last exam Patient is in bed. Denies any CP or dyspnea, complains of joint pain. Review of Systems General: No Night Sweats, No Fatigue, No Malaise HEENT: No Visual Changes, No Dysphasia, No Sore Throat Pulmonary: No Dyspnea, No Cough Cardiovascular: No: Chest Pain, Orthopnea, Palpitations Gastrointestinal: No: Abdominal Pain, Nausea, Vomiting Genitourinary: No Dysuria, No Frequency Musculoskeletal: No: back pain, neck pain Neurological: Weakness, No: Change in speech, Confusion Objective-Cardiology Exam Last Set of Vital Signs Vital Signs 01/09/17 06:26 Temp 97.0 Pulse 72 Resp 20 B/P (MAP) 116/71 O2 Delivery Room Air Capillary Refill : Less Than 3 Seconds I&O Intake and Output 01/09/17 00:00 Intake Total 1550 ml Output Total 2100 ml Balance -550 ml Intake Oral 1550 ml Output Urine Total 1600 ml Stool Total 500 ml General: Alert, Oriented X3, Cooperative, No Acute Distress HEENT: Atraumatic, PERRLA, EOMI, Mucous Memb Moist/[place] Neck: Supple, No JVD Lungs: Clear to Auscultation Heart: Regular Rate, Normal S1, Normal S2 Abdomen: Normal Bowel Sounds, Soft, No Tenderness Extremities: No Clubbing, No Cyanosis, No Edema Neuro: Normal Speech, Cranial Nerves 3-12 NL Psych/Mental Status: Mental Status NL A/P-Cardiology Admission Diagnosis C. difficile colitis Sepsis CHF PVD Assessment/Plan C. difficile colitis, status post extended left hemicolectomy with Pam procedure, recovering slowly, Followed by Dr Jaime Short of breath, Reporting improvement. Continue to monitor. Peripheral edema, better, continue to monitor Congestive heart failure, nonischemic cardiomyopathy, acute on chronic left ventricular systolic dysfunction with most recent ejection fraction improved to 50 percent. Maintained on beta gurpreet and Entresto. Status post anoxic encephalopathy and pneumonia and sepsis early in October, improved with aggressive therapy. Back to his baseline. Continue to monitor. Status post acute renal failure. Improved, monitor renal function closely Anemia- continue to monitor H/H closely Peripheral vascular disease with history of nonhealing wounds bilaterally. Peripheral angiogram done 12/04/16 revealed moderate atherosclerotic disease on the left lower extremity, the anterior tibial artery is severely diseased on the left lower extremity but the ulcer on the left lower extremity has healed. Medical therapy is recommended. Moderate disease of the right lower extremity with good flow, with three-vessel flow down to the foot. Continue medical management at this time and continue to monitor. Small infrarenal abdominal aortic aneurysm noted during peripheral angiogram. Continue to monitor Hypertension,controlled. Continue to monitor blood pressure. Hyperlipidemia, continue to hold statin. Hyperthyroidism, history of hypothyroidism, managed by primary care physician History of pulmonary hypertension, continue to monitor History of rheumatoid arthritis. COPD, managed and followed by primary care physician Tobaccoism, patient has stopped smoking after the last admission. Encouraged to continue with smoking cessation History of chronic narcotic use, urine drug screen is positive for opioids Clinical Quality Measures DVT/VTE Risk/Contraindication: Risk Factor Score Per Nursin RFS Level Per Nursing on Admit: 4+=Very High FATUMA GARCES Jan 09, 2017 08:33
--- NOTE | 2017-01-09 10:24 | Cardiology Progress Note ---
Subjective Subjective/Events-last exam patient is laying down in bed, complaining of generalized muscle cramp in his upper and lower extremities, abdominal pain on and off, C. difficile culture was positive again. Review of Systems General: No Chills, No Night Sweats, Fatigue, Malaise, No Appetite, No Other HEENT: No Head Aches, No Visual Changes, No Eye Pain, No Ear Pain, No Dysphasia , No Sinus Congestion, No Post Nasal Drip, No Sore Throat, No Other Pulmonary: No Dyspnea, No Cough, No Pleuritic Chest Pain, No Other Cardiovascular: No: Chest Pain, Edema, Lt Headedness, Orthopnea, Other, Palpitations, Paroxysmal Noc. Dyspnea Objective-Cardiology Exam Last Set of Vital Signs Vital Signs 01/09/17 06:26 Temp 97.0 Pulse 72 Resp 20 B/P (MAP) 116/71 O2 Delivery Room Air Capillary Refill : Less Than 3 Seconds I&O Intake and Output 01/09/17 00:00 Intake Total 1550 ml Output Total 2100 ml Balance -550 ml Intake Oral 1550 ml Output Urine Total 1600 ml Stool Total 500 ml General: Alert, Oriented X3, Cooperative, No Acute Distress HEENT: Atraumatic, PERRLA, EOMI, Mucous Memb Moist/[place] Neck: Supple, No JVD Lungs: Clear to Auscultation Heart: Regular Rate, Normal S1, Normal S2 Abdomen: Normal Bowel Sounds, Soft, No Tenderness Extremities: No Clubbing, No Cyanosis, No Edema Neuro: Normal Speech, Cranial Nerves 3-12 NL Psych/Mental Status: Mental Status NL A/P-Cardiology Admission Diagnosis C. difficile colitis Sepsis CHF PVD Assessment/Plan C. difficile colitis, status post extended left hemicolectomy with Pam procedure, recovering slowly, Followed by Dr Jaime Muscle cramp, generalized weakness, mild anemia, I will reevaluate CBC, BMP and magnesium level. Short of breath, Reporting improvement. Continue to monitor. Peripheral edema, better, continue to monitor Congestive heart failure, nonischemic cardiomyopathy, acute on chronic left ventricular systolic dysfunction with most recent ejection fraction improved to 50 percent. Maintained on beta gurpreet and Entresto. Status post anoxic encephalopathy and pneumonia and sepsis early in October, improved with aggressive therapy. Back to his baseline. Continue to monitor. Status post acute renal failure. Improved, monitor renal function closely Anemia- continue to monitor H/H closely Peripheral vascular disease with history of nonhealing wounds bilaterally. Peripheral angiogram done 12/04/16 revealed moderate atherosclerotic disease on the left lower extremity, the anterior tibial artery is severely diseased on the left lower extremity but the ulcer on the left lower extremity has healed. Medical therapy is recommended. Moderate disease of the right lower extremity with good flow, with three-vessel flow down to the foot. Continue medical management at this time and continue to monitor. Small infrarenal abdominal aortic aneurysm noted during peripheral angiogram. Continue to monitor Hypertension,controlled. Continue to monitor blood pressure. Hyperlipidemia, continue to hold statin. Hyperthyroidism, history of hypothyroidism, managed by primary care physician History of pulmonary hypertension, continue to monitor History of rheumatoid arthritis. COPD, managed and followed by primary care physician Tobaccoism, patient has stopped smoking after the last admission. Encouraged to continue with smoking cessation History of chronic narcotic use, urine drug screen is positive for opioids Clinical Quality Measures DVT/VTE Risk/Contraindication: Risk Factor Score Per Nursin RFS Level Per Nursing on Admit: 4+=Very High TORY HALL MD Jan 09, 2017 10:24
--- NOTE | 2017-01-09 11:52 | Physical Therapy Daily Note ---
PT Daily Note-Current Subjective Patient in bed pre tx, is reluctant to participate with therapy because he is nauseated and has a lot of pain and stiffness in his arms and shoulders, rates pain at 9/10. Patient will need to get dressed and needs to use the urinal. Appearance Patient BTB post tx with nurse call, phone, tray, all needs met. Mental Status Patient Orientation: Normal For Age Transfers Functional [place] Measure 0=Not Assessed/NA 4=Minimal Assistance 1=Total Assistance 5=Supervision or Setup 2=Maximal Assistance 6=Modified [place] 3=Moderate Assistance 7=Complete IndependenceIRFPAI Quality Coding Scale 6 Independent with activity with or without an assistive device 5 Patient requires set up or clean up by helper. Patient completes activity by themselves 4 Supervision or touching assist (CGA). [place] provide cues , steadying assist 3 The helper provides less than half the effort to complete the activity 2 The helper provides more than half the effort to complete the activity 1 Dependent. The helper does all the effort to complete an activity 7 Patient refused to complete or attempt activity 9 The patient did not perform the activity before the current illness or injury 88 Not attempted due to Medical conditions or safety concerns Transfers (B, C, W/C) (FIM): 4 Scootin Rollin Supine to/from Sit: 4 Sit to/from Stand: 4 Bed to/from Chair: 4 min assist for transfers and getting legs into and out of bed Wheelchair Training Wheelchair (FIM): 5 Distance: 150'x2 Wheelchair Level of Assist: 5 Type of Wheelchair: Manual Exercises NuStep Minutes: 10 NuStep Workload: 4 Treatments bed mobility and transfers, wheelchair mobility, functional strengthening Assessment Current Status: Poor Progress Patient needed extra time and rest breaks due to pain and weakness and nausea, no change in mobility PT Short Term Goals Short Term Goals Time Frame: Jan 04, 2017 Transfers (B,C,W/C) (FIM): 4 Gait (FIM): 2 Distance (FIM): 4=506-06 ft Gait Assistive Device: FWW Wheelchair Distance: 150' x 2 Stairs (FIM): 2 # of Steps: 4 PT Cofounder Goals Cofounder Goals PT Group Home Goals Time Frame: January 18, 2017 Transfers (B,C,W/C) (FIM): 6 Sit to Lying (QC): 6 Lying-Sitting on Side/Bed(QC): 6 Sit to Stand (QC): 6 Rollin Roll Left to Right (QC): 6 Chair/[id number] Xfer(QC): 6 Car Transfer (QC): 5 Does the Patient Walk: Yes Gait (FIM): 5 Gait distance (FIM): 2=853-88 ft Walk 10 feet (QC): 5 Walk 10ft-Uneven Surface(QC): 5 Walk 50ft with 2 Turns (QC): 5 Walk 150 ft (QC): 88 Gait Assistive Device: FWW Does the Pt use WC or Scooter?: Yes Wheelchair (FIM): 6 Wheelchair distance (FIM): 3=150 ft Wheel 50 feet with 2 turns (QC: 6 Stairs (FIM): 2 # of Steps: 4 1 Step (curb) (QC): 5 4 Steps (QC): 5 12 Steps (QC): 88 Picking up an Object (QC): 88 PT Plan Problem List Problem List: Activity Tolerance, Functional Strength, Safety, Balance, Gait, Transfer, Bed Mobility Treatment/Plan Treatment Plan: Continue Plan of Care Treatment Plan: Bed Mobility, Education, Functional Activity Juli, Functional Strength, Group Therapy, Gait, Safety, Therapeutic Exercise, Transfers Treatment Duration: January 18, 2017 Visits Per Week: 10-15 Minutes/Day (M-F): 60-90 Minutes/Day (Sat/Ferrara): prn Safety Risks/Education Patient Education: Transfer Techniques, Correct Positioning, W/C Management, Safety Issues Teaching Recipient: Patient Teaching Methods: Demonstration, Discussion Response to Teaching: Reinforcement Needed Time/GCodes Time In: 1100 Time Out: 1145 Total Billed Treatment Time: 45 Total Billed Treatment 1 visit [facility] 15' EX 10' FA 20 ELSY AGUIRRE PT Jan 09, 2017 11:52
--- NOTE | 2017-01-09 12:36 | Occupational Ther Daily Note ---
OT Current Status-Daily Note Subjective Pt lying in bed. Pt stated that he has been nauseous and that entire body has been cramping. Pt agreed to therapy. Nrsg notified. Mental Status/Objective Patient Orientation: Person, Place, Time, Situation Functional [place] Measure 0=Not Assessed/NA 4=Minimal Assistance 1=Total Assistance 5=Supervision or Setup 2=Maximal Assistance 6=Modified [place] 3=Moderate Assistance 7=Complete [place] ADL-Treatment Pt declined any sponge bath or washing up. Pt stated that he felt to bad to do this. LEEANN worked on UE A/PROM and massage to decrease pt's shldr pain and increase AROM for daily functional skills. Noted edema above B scapula's, nrsg notified. Pt then was able to reach out and open packages and grasp eating utensil to feed self. After therapy, pt continued to eat breakfast. Decreased nausea and cramping. Call light/phone in reach. All needs met in room. Functional [place] Measure 0=Not Assessed/NA 4=Minimal Assistance 1=Total Assistance 5=Supervision or Setup 2=Maximal Assistance 6=Modified [place] 3=Moderate Assistance 7=Complete IndependenceIRFPAI Quality Coding Scale 6 Independent with activity with or without an assistive device 5 Patient requires set up or clean up by helper. Patient completes activity by themselves 4 Supervision or touching assist (CGA). [place] provide cues , steadying assist 3 The helper provides less than half the effort to complete the activity 2 The helper provides more than half the effort to complete the activity 1 Dependent. The helper does all the effort to complete an activity 7 Patient refused to complete or attempt activity 9 The patient did not perform the activity before the current illness or injury 88 Not attempted due to Medical conditions or safety concerns Eating (FIM): 5 OT Short Term Goals Short Term Goals Time Frame: Jan 04, 2017 Eating(FIM): 5 Grooming(FIM): 5 Bathing(FIM): 4 Upper Body Dressing(FIM): 4 Lower Body Dressing(FIM): 4 Toileting(FIM): 4 Transfers (B,C,W/C) (FIM): 4 Toilet/Commode Transfer(FIM): 5 Shower Transfer(FIM): 5 Additional Short Term Goals: 1-Demonstrate ADL Tasks, 2-Verbalize Understanding , 3-ImproveStrength/Juli 1=Demonstrate adherence to instructed precautions during ADL tasks. 2=Patient will verbalize/demonstrate understanding of assistive devices/ modifications for ADL. 3=Patient will improve strength/tolerance for activity to enable patient to perform ADL's. OT Cold Food Packer Goals Cold Food Packer Goals Time Frame: January 18, 2017 Eating (FIM): 6 Eating (QC): 6 Groomin Oral Hygiene (QC): 6 Bathing(FIM): 5 Shower/Bathe Self (QC): 5 Upper Body Dressing(FIM): 6 Upper Body Dressing (QC): 6 Lower Body Dressing(FIM): 6 Lower Body Dressing (QC): 6 On/Off Footwear (QC): 6 Toileting(FIM): 6 Toileting Hygiene (QC): 6 Transfers (B,C,W/C) (FIM): 6 Toilet/Commode Transfer(FIM): 6 Toilet/Commode Transfer (QC): 6 Shower Transfer(FIM): 5 Additional Goals: 1-Demonstrate ADL Tasks, 2-Verbalize Understanding, 3- ImproveStrength/Juli 1=Demonstrate adherence to instructed precautions during ADL tasks. 2=Patient will verbalize/demonstrate understanding of assistive devices/ modifications for ADL. 3=Patient will improve strength/tolerance for activity to enable patient to perform ADL's. OT Education/Plan Discharge Recommendations Plan/Recommendations: Continue POC Treatment Plan/Plan of Care Patient would benefit from OT for education, treatment and training to promote independence in ADL's, mobility, safety and/or upper extremity function for ADL' s. Plan of Care: ADL Retraining, Caregiver Training, Functional Mobility, Group Exercise/Act as Ind, UE Funct Exercise/Act Treatment Duration: January 18, 2017 Visits Per Week: 10-12 Minutes/Day (M-F): 60-90 Minutes/Day (Sat/Ferrara): prn Agreement: Yes Rehab Potential: Fair Time/GCodes Start Time: 09:00 Stop Time: 10:00 Total Time Billed (hr/min): 60 Billed Treatment Time 1 visit-FA 4 (60 min) SOMMER SORENSON Jan 09, 2017 12:36
[2017-01-09] MEDS: ENOXAPARIN 40 MG/0.4 ML (LOVENOX) SYR SC SCH (14:36)
--- NOTE | 2017-01-09 14:44 | Therapy Group Daily Note ---
Therapy Daily Group Note Patient Education Topic Home Safety Exercises LE Seated Exercise, Sit to/from Stand, UE Exercise Other/Notes Pt. attended group PT OT ST session this date. Pt. came by w/c and his FWW with platform att was brought for sit to stand portion of group. Pt. introduced self and was social. Education and game this date focused on Home safety aspects. Pts did sit to stand and bag toss onto a safety topic written on scattered pieces of paper on floor. Pts expressed his views of safety of electrical cords etc. Voice exercises were also done per DIRECTOR OF PARTNERSHIPS. Pt. to room after with mod assist to bed and to doff pants etc. Start Time: 13:00 Stop Time: 14:15 Total Billed Treatment Time: 75 Total Billed Treatment 1,GRP ANAHI SEWELL VICE PRESIDENT UNDERWRITING Jan 09, 2017 14:44
[2017-01-09] MEDS: HYDROcodone/APAP 10 MG/325 MG (LORTAB) TAB PO PRN ×2 (15:46→20:16)
[2017-01-09 18:45] VITALS: BP 93/57
--- NOTE | 2017-01-09 18:57 | PM & R (SOAP) Progress Note ---
Subjective Subjective/Events-last exam Patient was seen in his room this AM C/O muscle cramps this AM Now resolved without treatment Discussed case with RN Patient min assist for transfers Objective Exam Last Set of Vital Signs Vital Signs Date Time Temp Pulse Resp B/P (MAP) Pulse Ox O2 Delivery O2 Flow Rate FiO2 01/09/17 08:00 Room Air 01/09/17 06:40 93 01/09/17 06:26 97.0 72 20 116/71 Capillary Refill : Less Than 3 Seconds I&O Intake and Output 01/09/17 00:00 Intake Total 1550 ml Output Total 2100 ml Balance -550 ml Intake Oral 1550 ml Output Urine Total 1600 ml Stool Total 500 ml General: Alert, Oriented X3, Cooperative, No Acute Distress HEENT: Atraumatic, PERRLA, EOMI, Mucous Memb Moist/[place] Neck: Supple, No JVD Lungs: Clear to Auscultation Heart: Regular Rate, Normal S1, Normal S2 Abdomen: Normal Bowel Sounds, Soft, No Tenderness Extremities: No Clubbing, No Cyanosis, No Edema Neuro: Normal Speech, Cranial Nerves 3-12 NL Psych/Mental Status: Mental Status NL Results Lab Laboratory Tests 01/08/17 05:20: White Blood Count 9.9, Red Blood Count 2.87L, Hemoglobin 7.9L, Hematocrit 26L, Mean Corpuscular Volume 92, Mean Corpuscular Hemoglobin 28, Mean Corpuscular Hemoglobin Concent 30L, Red Cell Distribution Width 20.2H, Platelet Count 346, Mean Platelet Volume 9.6, Sodium Level 137, Potassium Level 4.0, Chloride Level 103, Carbon Dioxide Level 28, Anion Gap 6, Blood Urea Nitrogen 8, Creatinine 0.82, Estimat Glomerular Filtration Rate > 60, BUN/Creatinine Ratio 10, Glucose Level 82, Calcium Level 7.9L Microbiology 01/05/17 C. 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 Dr Jaime has seen re staple removal and suturing draining area improved Consult Robotic Toy Inventor re supplement-done Monitor for any further nausea or cramps Possible discharge later this week Will f/u with re details. NATALIYA KHANNA MD Jan 09, 2017 18:57
[2017-01-09] MEDS: ATORVASTATIN 40 MG (LIPITOR) TABLET PO SCH (20:16)
[2017-01-10] MEDS: HYDROcodone/APAP 10 MG/325 MG (LORTAB) TAB PO PRN (04:32)
[2017-01-10 05:17] VITALS: BP 99/63
[2017-01-10] MEDS: LEVOTHYROXINE 100 MCG (LEVOTHROID) TAB PO SCH (06:37)
[2017-01-10] MEDS: CALCIUM CARBONATE 600 MG (CALCARB) TAB PO SCH (06:37)
[2017-01-10] MEDS: morphine ER 30 MG (MS CONTIN) TAB PO SCH ×3 (06:37→21:19)
[2017-01-10] MEDS: LEVOTHYROXINE 75 MCG (LEVOTHROID) TABLET PO SCH (06:37)
[2017-01-10] MEDS: PANTOPRAZOLE 40 MG (PROTONIX) TAB PO SCH (06:37)
[2017-01-10 07:05] LABS: MEAN PLATELET VOLUME 9.5 FL (7.4-10.4); RED BLOOD COUNT 3.13 10^6/uL (4.35-5.85); RED CELL DISTRIBUTION WIDTH 19.4 % (10.0-14.5); WHITE BLOOD COUNT 10.7 10^3/uL (4.3-11.0)
[2017-01-10] MEDS: RT-ALBUTEROL/IPRATROPIUM 3 ML (DUONEB) VIAL INH PRN (07:10)
[2017-01-10 07:25] LABS: ANION GAP 7 MMOL/L (5-14); BLOOD UREA NITROGEN 6 MG/DL (7-18); BUN/CREATININE RATIO 8; CARBON DIOXIDE 29 MMOL/L (21-32); CHLORIDE 99 MMOL/L (98-107); CREATININE SERUM 0.76 MG/DL (0.60-1.30); GFR ESTIMATED > 60; GLUCOSE 84 MG/DL (70-105); MAGNESIUM 1.5 MG/DL (1.8-2.4); POTASSIUM 3.9 MMOL/L (3.6-5.0); SODIUM 135 MMOL/L (135-145)
--- NOTE | 2017-01-10 07:45 | Cardiology Progress Note ---
Subjective Subjective/Events-last exam Patient reports he is doing well. Possibly being discharged home . Denies any CP or dyspnea. Review of Systems General: No Night Sweats, Fatigue, No Malaise HEENT: No Visual Changes, No Dysphasia, No Sore Throat Pulmonary: No Dyspnea, No Cough Cardiovascular: No: Chest Pain, Edema, Palpitations, Paroxysmal Noc. Dyspnea Gastrointestinal: No: Abdominal Pain, Nausea, Vomiting Genitourinary: No Dysuria, No Frequency Musculoskeletal: No: back pain, neck pain Neurological: No: Change in speech, Confusion, Numbness, Weakness Objective-Cardiology Exam Last Set of Vital Signs Vital Signs 01/10/17 01/10/17 05:17 07:10 Temp 98.9 Pulse 80 Resp 18 B/P (MAP) 99/63 Pulse Ox 81 O2 Delivery Room Air Capillary Refill : Less Than 3 Seconds I&O Intake and Output 01/10/17 00:00 Intake Total 1220 ml Output Total 1900 ml Balance -680 ml Intake Oral 1220 ml Output Urine Total 1700 ml Stool Total 200 ml General: Alert, Oriented X3, Cooperative, No Acute Distress HEENT: Atraumatic, PERRLA, EOMI, Mucous Memb Moist/[place] Neck: Supple, No JVD Lungs: Clear to Auscultation Heart: Regular Rate, Normal S1, Normal S2 Abdomen: Normal Bowel Sounds, Soft, No Tenderness Extremities: No Clubbing, No Cyanosis, No Edema Neuro: Normal Speech, Cranial Nerves 3-12 NL Psych/Mental Status: Mental Status NL Results Lab Laboratory Tests 01/10/17 06:55 A/P-Cardiology Admission Diagnosis C. difficile colitis Sepsis CHF PVD Assessment/Plan C. difficile colitis, status post extended left hemicolectomy with Pam procedure, recovering slowly, Followed by Dr Jaime Muscle cramp, generalized weakness, mild anemia, I will reevaluate CBC, BMP and magnesium level. Short of breath, Reporting improvement. Continue to monitor. Peripheral edema, better, continue to monitor Congestive heart failure, nonischemic cardiomyopathy, acute on chronic left ventricular systolic dysfunction with most recent ejection fraction improved to 50 percent. Maintained on beta gurpreet and Entresto. Status post anoxic encephalopathy and pneumonia and sepsis early in October, improved with aggressive therapy. Back to his baseline. Continue to monitor. Status post acute renal failure. Improved, monitor renal function closely Anemia- continue to monitor H/H closely Peripheral vascular disease with history of nonhealing wounds bilaterally. Peripheral angiogram done 12/04/16 revealed moderate atherosclerotic disease on the left lower extremity, the anterior tibial artery is severely diseased on the left lower extremity but the ulcer on the left lower extremity has healed. Medical therapy is recommended. Moderate disease of the right lower extremity with good flow, with three-vessel flow down to the foot. Continue medical management at this time and continue to monitor. Small infrarenal abdominal aortic aneurysm noted during peripheral angiogram. Continue to monitor Hypertension,controlled. Continue to monitor blood pressure. Hyperlipidemia, continue to hold statin. Hyperthyroidism, history of hypothyroidism, managed by primary care physician History of pulmonary hypertension, continue to monitor History of rheumatoid arthritis. COPD, managed and followed by primary care physician Tobaccoism, patient has stopped smoking after the last admission. Encouraged to continue with smoking cessation History of chronic narcotic use, urine drug screen is positive for opioids Clinical Quality Measures DVT/VTE Risk/Contraindication: Risk Factor Score Per Nursin RFS Level Per Nursing on Admit: 4+=Very High FATUMA GARCES Jan 10, 2017 07:45
[2017-01-10] MEDS: ASPIRIN E.C. 81 MG (ECOTRIN) TAB PO SCH (08:37)
[2017-01-10] MEDS: FUROSEMIDE 20 MG (LASIX) TAB PO SCH (08:37)
[2017-01-10] MEDS: KCL 10 MEQ TAB (MICRO K) PO SCH ×2 (08:37→20:18)
[2017-01-10] MEDS: MAGNESIUM OXIDE (MAG-OX)400 MG TAB PO SCH ×2 (08:37→17:20)
[2017-01-10] MEDS: SACUBITRIL/VALSARTAN 24/26 MG (ENTRESTO) TABLET PO SCH ×2 (08:37→20:30)
[2017-01-10] MEDS: CARVEDILOL 3.125 MG (COREG) TABLET PO SCH ×2 (10:11→20:18)
[2017-01-10] MEDS: ONDANSETRON 4 MG (ZOFRAN) ORAL DISSOLVE TAB PO PRN (10:47)
--- NOTE | 2017-01-10 10:59 | Physical Therapy Daily Note ---
PT Daily Note-Current Subjective Patient in bed pre tx, agrees to PT. Patient has 9/10 pain and is nauseated. Nurse is aware of this and is getting him some nausea meds and will be giving him pain meds when it is time. Patient also needs to get dressed. Appearance Patient in wheelchair at bedside post tx with nurse call, phone, tray, all needs met. Mental Status Patient Orientation: Normal For Age Transfers Functional [place] Measure 0=Not Assessed/NA 4=Minimal Assistance 1=Total Assistance 5=Supervision or Setup 2=Maximal Assistance 6=Modified [place] 3=Moderate Assistance 7=Complete IndependenceIRFPAI Quality Coding Scale 6 Independent with activity with or without an assistive device 5 Patient requires set up or clean up by helper. Patient completes activity by themselves 4 Supervision or touching assist (CGA). [place] provide cues , steadying assist 3 The helper provides less than half the effort to complete the activity 2 The helper provides more than half the effort to complete the activity 1 Dependent. The helper does all the effort to complete an activity 7 Patient refused to complete or attempt activity 9 The patient did not perform the activity before the current illness or injury 88 Not attempted due to Medical conditions or safety concerns Transfers (B, C, W/C) (FIM): 4 Scootin Rollin Supine to/from Sit: 3 Sit to/from Stand: 4 Bed to/from Chair: 3 Patient is very weak and nauseated. Much extra time needed for transfers, min assist to get leg out of bed and to scoot forward and to stand for transfer. Gait Training Gait (FIM): 1 Distance: 15' Gait Level of Assist: 4 Gait Persons Needed: 1 Gait Assistive Device: FWW Wheelchair follow, bilateral platform walker. Wheelchair Training Wheelchair (FIM): 5 Distance: 150'x2 Wheelchair Level of Assist: 5 Type of Wheelchair: Manual very slow, needed rest breaks Exercises Seated Therapy Exercises: Ankle pumps, Hip flexion Seated Reps: 20 LAQ alternating for 5 min Treatments bed mobility and transfers, ambulation, wheelchair mobility, functional strengthening Assessment Current Status: Poor Progress Patient was moving very slowly and needed much extra time due to pain and nausea. PT Short Term Goals Short Term Goals Time Frame: Jan 04, 2017 Transfers (B,C,W/C) (FIM): 4 Gait (FIM): 2 Distance (FIM): 3=973-35 ft Gait Assistive Device: FWW Wheelchair Distance: 150'x2 Stairs (FIM): 2 # of Steps: 4 PT Sand Screener Operator Goals Correction Goals PT Correction Goals Time Frame: January 18, 2017 Transfers (B,C,W/C) (FIM): 6 Sit to Lying (QC): 6 Lying-Sitting on Side/Bed(QC): 6 Sit to Stand (QC): 6 Rollin Roll Left to Right (QC): 6 Chair/Aah-xt-Eekgk Xfer(QC): 6 Car Transfer (QC): 5 Does the Patient Walk: Yes Gait (FIM): 5 Gait distance (FIM): 9=417-78 ft Walk 10 feet (QC): 5 Walk 10ft-Uneven Surface(QC): 5 Walk 50ft with 2 Turns (QC): 5 Walk 150 ft (QC): 88 Gait Assistive Device: FWW Does the Pt use WC or Scooter?: Yes Wheelchair (FIM): 6 Wheelchair distance (FIM): 3=150 ft Wheel 50 feet with 2 turns (QC: 6 Stairs (FIM): 2 # of Steps: 4 1 Step (curb) (QC): 5 4 Steps (QC): 5 12 Steps (QC): 88 Picking up an Object (QC): 88 PT Plan Problem List Problem List: Activity Tolerance, Functional Strength, Safety, Balance, Gait, Transfer, Bed Mobility, ROM Treatment/Plan Treatment Plan: Continue Plan of Care Treatment Plan: Bed Mobility, Education, Functional Activity Juli, Functional Strength, Group Therapy, Gait, Safety, Therapeutic Exercise, Transfers Treatment Duration: January 18, 2017 Visits Per Week: 10-15 Minutes/Day (M-F): 60-90 Minutes/Day (Sat/Ferrara): prn Safety Risks/Education Patient Education: Gait Training, Transfer Techniques, Correct Positioning, W/ C Management, Safety Issues Teaching Recipient: Patient Teaching Methods: Demonstration, Discussion Response to Teaching: Reinforcement Needed Time/GCodes Time In: 1000 Time Out: 1100 Total Billed Treatment Time: 60 Total Billed Treatment 1 visit FA 30 min EX 10 min WCH 20 min ELSY AGUIRRE PT Jan 10, 2017 10:59
--- NOTE | 2017-01-10 12:10 | Occupational Ther Daily Note ---
OT Current Status-Daily Note Subjective Pt. does not report pain, but states that he is nauseated. Carries a bucket with him during treatment, in case he should need to throw up. Appearance Pt. is up in chair after PT treatment. Agrees to work with OT, but keeps head down most of treatment. Requires increased time during treatment, and does not participate very much. Mental Status/Objective Patient Orientation: Person Functional [place] Measure 0=Not Assessed/NA 4=Minimal Assistance 1=Total Assistance 5=Supervision or Setup 2=Maximal Assistance 6=Modified [place] 3=Moderate Assistance 7=Complete [place] ADL-Treatment Functional [place] Measure 0=Not Assessed/NA 4=Minimal Assistance 1=Total Assistance 5=Supervision or Setup 2=Maximal Assistance 6=Modified [place] 3=Moderate Assistance 7=Complete IndependenceIRFPAI Quality Coding Scale 6 Independent with activity with or without an assistive device 5 Patient requires set up or clean up by helper. Patient completes activity by themselves 4 Supervision or touching assist (CGA). [place] provide cues , steadying assist 3 The helper provides less than half the effort to complete the activity 2 The helper provides more than half the effort to complete the activity 1 Dependent. The helper does all the effort to complete an activity 7 Patient refused to complete or attempt activity 9 The patient did not perform the activity before the current illness or injury 88 Not attempted due to Medical conditions or safety concerns Pt. is up in his chair. Declines bathing and dressing. Has already had pants and shoes on from physical therapy. Pt. agreed to come to therapy gym. Able to assist with self propulsion to gym using feet only. Pt. agreed to work with hands during peg activity. This was very sporatic. OT put pegs in front of him to work on fine motor coordination and strengthening. Pt. would work on 1- 2 pegs, and then stop. Would stay in bent over position. States he is nauseated, but unable to articulate if he is having stomach spasms or not. Pt. does self propel back to room. Pt. encouraged to stand and pivot back to bed. Pt. leans over in his chair and requires multiple cues to initiate task. Will state, "okay, yeah I'm going," but then will not. Transferred back to bed with min assist. Sit-supine with min assist. All needs met. Nursing notified. Education OT Patient Education: Correct positioning, Energy conservation, Exercise program, Progress toward Goal/Update tx plan, Purpose of tx/functional activities, Reviewed precautions, Rehab process, Transfer techniques Teaching Recipient: Patient Teaching Methods: Demonstration, Discussion Response to Teaching: Verbalize Understanding, Return Demonstration OT Short Term Goals Short Term Goals Time Frame: Jan 04, 2017 Eating(FIM): 5 Grooming(FIM): 5 Bathing(FIM): 4 Upper Body Dressing(FIM): 4 Lower Body Dressing(FIM): 4 Toileting(FIM): 4 Transfers (B,C,W/C) (FIM): 4 Toilet/Commode Transfer(FIM): 5 Shower Transfer(FIM): 5 Additional Short Term Goals: 1-Demonstrate ADL Tasks, 2-Verbalize Understanding , 3-ImproveStrength/Juli 1=Demonstrate adherence to instructed precautions during ADL tasks. 2=Patient will verbalize/demonstrate understanding of assistive devices/ modifications for ADL. 3=Patient will improve strength/tolerance for activity to enable patient to perform ADL's. OT Day Care Center Director Goals Longterm Goals Time Frame: January 18, 2017 Eating (FIM): 6 Eating (QC): 6 Groomin Oral Hygiene (QC): 6 Bathing(FIM): 5 Shower/Bathe Self (QC): 5 Upper Body Dressing(FIM): 6 Upper Body Dressing (QC): 6 Lower Body Dressing(FIM): 6 Lower Body Dressing (QC): 6 On/Off Footwear (QC): 6 Toileting(FIM): 6 Toileting Hygiene (QC): 6 Transfers (B,C,W/C) (FIM): 6 Toilet/Commode Transfer(FIM): 6 Toilet/Commode Transfer (QC): 6 Shower Transfer(FIM): 5 Additional Goals: 1-Demonstrate ADL Tasks, 2-Verbalize Understanding, 3- ImproveStrength/Juli 1=Demonstrate adherence to instructed precautions during ADL tasks. 2=Patient will verbalize/demonstrate understanding of assistive devices/ modifications for ADL. 3=Patient will improve strength/tolerance for activity to enable patient to perform ADL's. OT Education/Plan Problem List/Assessment Assessment: Decreased Activ Tolerance, Decreased UE Strength, Dependent Transfers, Impaired Bed Mobility, Impaired Coordination, Impaired Funct Balance , Impaired I ADL's, Impaired Self-Care Skills Discharge Recommendations Plan/Recommendations: Continue POC Therapy D/C Recommendations: Home w/ Family Support, Occupational Therapy Home Care Treatment Plan/Plan of Care Treatment,Training & Education: Yes Patient would benefit from OT for education, treatment and training to promote independence in ADL's, mobility, safety and/or upper extremity function for ADL' s. Plan of Care: ADL Retraining, Caregiver Training, Functional Mobility, Group Exercise/Act as Ind, UE Funct Exercise/Act Treatment Duration: January 18, 2017 Visits Per Week: 10-12 Minutes/Day (M-F): 60-90 Minutes/Day (Sat/F[place]ara): prn Agreement: Yes Rehab Potential: Fair Time/GCodes Start Time: 11:00 Stop Time: 12:00 Total Time Billed (hr/min): 60 Billed Treatment Time 1, FA x 4 JENNI OSBORN OT Jan 10, 2017 12:09
--- NOTE | 2017-01-10 12:12 | PM & R (SOAP) Progress Note ---
Subjective Subjective/Events-last exam Patient was seen in his room this AM [place] this AM but now reports nausea to RN and PT which is refractory to Zofran Patient on multiple meds Will ask DR jaime to review.Patient functional transfers and ambulation varies with nausea varying from CGA to Min assist Review of Systems Gastrointestinal: Nausea Objective Exam Last Set of Vital Signs Vital Signs Date Time Temp Pulse Resp B/P (MAP) Pulse Ox O2 Delivery O2 Flow Rate FiO2 01/10/17 07:10 81 01/10/17 05:17 98.9 80 18 99/63 Room Air Capillary Refill : Less Than 3 Seconds I&O Intake and Output 01/10/17 00:00 Intake Total 1220 ml Output Total 1900 ml Balance -680 ml Intake Oral 1220 ml Output Urine Total 1700 ml Stool Total 200 ml General: Alert, Oriented X3, Cooperative, No Acute Distress HEENT: Atraumatic, PERRLA, EOMI, Mucous Memb Moist/[place] Neck: Supple, No JVD Lungs: Clear to Auscultation Heart: Regular Rate, Normal S1, Normal S2 Abdomen: Normal Bowel Sounds, Soft, No Tenderness, Other (Dressing over midline incision clean and dry this AM with colostomy functioning and no abd tenderness) Extremities: No Clubbing, No Cyanosis, No Edema Neuro: Normal Speech, Cranial Nerves 3-12 NL Psych/Mental Status: Mental Status NL Results Lab Laboratory Tests 01/08/17 05:20: White Blood Count 9.9, Red Blood Count 2.87L, Hemoglobin 7.9L, Hematocrit 26L, Mean Corpuscular Volume 92, Mean Corpuscular Hemoglobin 28, Mean Corpuscular Hemoglobin Concent 30L, Red Cell Distribution Width 20.2H, Platelet Count 346, Mean Platelet Volume 9.6, Sodium Level 137, Potassium Level 4.0, Chloride Level 103, Carbon Dioxide Level 28, Anion Gap 6, Blood Urea Nitrogen 8, Creatinine 0.82, Estimat Glomerular Filtration Rate > 60, BUN/Creatinine Ratio 10, Glucose Level 82, Calcium Level 7.9L 01/10/17 06:55: White Blood Count 10.7, Red Blood Count 3.13L, Hemoglobin 8.7L, Hematocrit 28L, Mean Corpuscular Volume 90, Mean Corpuscular Hemoglobin 28, Mean Corpuscular Hemoglobin Concent 31L, Red Cell Distribution Width 19.4H, Platelet Count 360, Mean Platelet Volume 9.5, Sodium Level 135, Potassium Level 3.9, Chloride Level 99, Carbon Dioxide Level 29, Anion Gap 7, Blood Urea Nitrogen 6L, Creatinine 0.76, Estimat Glomerular Filtration Rate > 60, BUN/Creatinine Ratio 8, Glucose Level 84, Calcium Level 8.0L, Magnesium Level 1.5L Microbiology 01/05/17 C. 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 DR Jaime on iv antibiotics Copd Gerd HTN Hypokalemia-replaced Hypomagnesemia- on replacement Hypokalemia-IMPROVED DVT prophylaxis-on Lovenox Subcut postop anemia Abdominal wound draiange improved with suturing nausea recurrent AM muscle cramps resolved spontaneously-Labs reviewed Plan Continue PT/OT F/U with Hospitalist service,Cardiology and DR Jaime et al as per their schedule Ongoing wound care and pain management Ostomy education for Patient and spouse Monitor labs and 02 sats and adjust meds as indicated.-remains on supplemental 02 Dr Jaime has seen re staple removal and suturing draining area improved Consult Mold Maker Plastic Molds re supplement-done Possible discharge later this week Will f/u with SW re details. Reconsult DR Jaime re recurrent nausea See orders Team Conference tomorrow Appreciate Cardiology note. NATALIYA KHANNA MD Jan 10, 2017 12:12
[2017-01-10] MEDS ORDERED: ONDANSETRON 4 MG (ZOFRAN) ORAL DISSOLVE TAB PO NR (13:22)
[2017-01-10] MEDS: ENOXAPARIN 40 MG/0.4 ML (LOVENOX) SYR SC SCH (14:36)
--- NOTE | 2017-01-10 14:49 | Physical Therapy Daily Note ---
PT Daily Note-Current Subjective Patient agrees to exercise. Pain Numeric Pain Scale: 8 Location: Lower Location Body Site: Neck Pain Description: Ache, Sharp Mental Status Patient Orientation: Normal For Age Transfers Functional [place] Measure 0=Not Assessed/NA 4=Minimal Assistance 1=Total Assistance 5=Supervision or Setup 2=Maximal Assistance 6=Modified [place] 3=Moderate Assistance 7=Complete IndependenceIRFPAI Quality Coding Scale 6 Independent with activity with or without an assistive device 5 Patient requires set up or clean up by helper. Patient completes activity by themselves 4 Supervision or touching assist (CGA). [place] provide cues , steadying assist 3 The helper provides less than half the effort to complete the activity 2 The helper provides more than half the effort to complete the activity 1 Dependent. The helper does all the effort to complete an activity 7 Patient refused to complete or attempt activity 9 The patient did not perform the activity before the current illness or injury 88 Not attempted due to Medical conditions or safety concerns Exercises Supine Ex: Ankle pumps, Quad Set, Heel Slides, Straight leg raise, Hip abd/add Supine Reps: 15 (2 sets) Treatments Education with patient on mobility to improve strength to ensure success with recovery. Patient received massage to cervical region with resistive exercises to strength cervical musculature with extension and rotation. Assessment Patient tolerated treatment well and has needs met. Plan dismissal to home this week. PT Short Term Goals Short Term Goals Time Frame: Jan 04, 2017 Transfers (B,C,W/C) (FIM): 4 Gait (FIM): 2 Distance (FIM): 0=431-54 ft Gait Assistive Device: FWW Wheelchair Distance: 150'x2 Stairs (FIM): 2 # of Steps: 4 PT Alf Goals Alf Goals PT Car Inspection And Repair Manager Goals Time Frame: January 18, 2017 Transfers (B,C,W/C) (FIM): 6 Sit to Lying (QC): 6 Lying-Sitting on Side/Bed(QC): 6 Sit to Stand (QC): 6 Rollin Roll Left to Right (QC): 6 Chair/Wtl-zt-Eumsp Xfer(QC): 6 Car Transfer (QC): 5 Does the Patient Walk: Yes Gait (FIM): 5 Gait distance (FIM): 6=309-92 ft Walk 10 feet (QC): 5 Walk 10ft-Uneven Surface(QC): 5 Walk 50ft with 2 Turns (QC): 5 Walk 150 ft (QC): 88 Gait Assistive Device: FWW Does the Pt use WC or Scooter?: Yes Wheelchair (FIM): 6 Wheelchair distance (FIM): 3=150 ft Wheel 50 feet with 2 turns (QC: 6 Stairs (FIM): 2 # of Steps: 4 1 Step (curb) (QC): 5 4 Steps (QC): 5 12 Steps (QC): 88 Picking up an Object (QC): 88 PT Plan Treatment/Plan Treatment Plan: Continue Plan of Care Treatment Plan: Bed Mobility, Education, Functional Activity Juli, Functional Strength, Group Therapy, Gait, Safety, Therapeutic Exercise, Transfers Treatment Duration: January 18, 2017 Visits Per Week: 10-15 Minutes/Day (M-F): 60-90 Minutes/Day (Sat/F[place]ara): prn Safety Risks/Education Patient Education: Disease Process (RA cervical exercises) Teaching Recipient: Patient Teaching Methods: Demonstration, Discussion Response to Teaching: Verbalize Understanding, Return Demonstration Time/GCodes Time In: 1330 Time Out: 1400 Total Billed Treatment Time: 30 Total Billed Treatment 1 visit Educ 15 min EX 15 min LIZET SARMIENTO PT Jan 10, 2017 14:49
--- NOTE | 2017-01-10 15:17 | Occupational Ther Daily Note ---
OT Current Status-Daily Note Subjective Pt. reports pain but does not give number. At first, reported nausea only. Received nausea tablet. Then during treatment states he has pain. Declines pain meds. No number given. Appearance Pt. in bed on back. More alert than this morning. Agrees to work with OT. However, takes increased time to initiate any task. Mental Status/Objective Patient Orientation: Person Functional [place] Measure 0=Not Assessed/NA 4=Minimal Assistance 1=Total Assistance 5=Supervision or Setup 2=Maximal Assistance 6=Modified [place] 3=Moderate Assistance 7=Complete [place] ADL-Treatment Functional [place] Measure 0=Not Assessed/NA 4=Minimal Assistance 1=Total Assistance 5=Supervision or Setup 2=Maximal Assistance 6=Modified [place] 3=Moderate Assistance 7=Complete IndependenceIRFPAI Quality Coding Scale 6 Independent with activity with or without an assistive device 5 Patient requires set up or clean up by helper. Patient completes activity by themselves 4 Supervision or touching assist (CGA). [place] provide cues , steadying assist 3 The helper provides less than half the effort to complete the activity 2 The helper provides more than half the effort to complete the activity 1 Dependent. The helper does all the effort to complete an activity 7 Patient refused to complete or attempt activity 9 The patient did not perform the activity before the current illness or injury 88 Not attempted due to Medical conditions or safety concerns Toileting (FIM): 3 (See below note.) Other Treatment OT asks pt. if he would like to do UE exercises at bed level. Pt. reports that he would. However, will not initiate them. Will lay in bed, close eyes, then divert attention, such as reaching for cup of ice or urinal. Finally does ask for urinal as he can't reach it. OT assists with urinating. OT pulls down pants while pt. places urinal and uses it. Pt. finally does complete 15 reps on each UE with red theraband for shoulder flexion, but that is what is accomplished this date. All needs met in room. Education OT Patient Education: Correct positioning, Exercise program, Modified ADL techniques, Progress toward Goal/Update tx plan, Purpose of tx/functional activities, Reviewed precautions, Rehab process Teaching Recipient: Patient Teaching Methods: Demonstration, Discussion Response to Teaching: Verbalize Understanding, Return Demonstration OT Short Term Goals Short Term Goals Time Frame: Jan 04, 2017 Eating(FIM): 5 Grooming(FIM): 5 Bathing(FIM): 4 Upper Body Dressing(FIM): 4 Lower Body Dressing(FIM): 4 Toileting(FIM): 4 Transfers (B,C,W/C) (FIM): 4 Toilet/Commode Transfer(FIM): 5 Shower Transfer(FIM): 5 Additional Short Term Goals: 1-Demonstrate ADL Tasks, 2-Verbalize Understanding , 3-ImproveStrength/Juli 1=Demonstrate adherence to instructed precautions during ADL tasks. 2=Patient will verbalize/demonstrate understanding of assistive devices/ modifications for ADL. 3=Patient will improve strength/tolerance for activity to enable patient to perform ADL's. OT Varnish Dipper Goals Assisted Goals Time Frame: January 18, 2017 Eating (FIM): 6 Eating (QC): 6 Groomin Oral Hygiene (QC): 6 Bathing(FIM): 5 Shower/Bathe Self (QC): 5 Upper Body Dressing(FIM): 6 Upper Body Dressing (QC): 6 Lower Body Dressing(FIM): 6 Lower Body Dressing (QC): 6 On/Off Footwear (QC): 6 Toileting(FIM): 6 Toileting Hygiene (QC): 6 Transfers (B,C,W/C) (FIM): 6 Toilet/Commode Transfer(FIM): 6 Toilet/Commode Transfer (QC): 6 Shower Transfer(FIM): 5 Additional Goals: 1-Demonstrate ADL Tasks, 2-Verbalize Understanding, 3- ImproveStrength/Juli 1=Demonstrate adherence to instructed precautions during ADL tasks. 2=Patient will verbalize/demonstrate understanding of assistive devices/ modifications for ADL. 3=Patient will improve strength/tolerance for activity to enable patient to perform ADL's. OT Education/Plan Problem List/Assessment Assessment: Decreased Activ Tolerance, Decreased UE Strength, Dependent Transfers, Impaired Bed Mobility, Impaired Coordination, Impaired Funct Balance , Impaired I ADL's, Impaired Self-Care Skills, Restricted Funct UE ROM Discharge Recommendations Plan/Recommendations: Continue POC Therapy D/C Recommendations: Home w/ Family Support, Occupational Therapy Home Care Treatment Plan/Plan of Care Treatment,Training & Education: Yes Patient would benefit from OT for education, treatment and training to promote independence in ADL's, mobility, safety and/or upper extremity function for ADL' s. Plan of Care: ADL Retraining, Caregiver Training, Functional Mobility, Group Exercise/Act as Ind, UE Funct Exercise/Act Treatment Duration: January 18, 2017 Visits Per Week: 10-12 Minutes/Day (M-F): 60-90 Minutes/Day (Sat/Ferrara): prn Agreement: Yes Rehab Potential: Fair Time/GCodes Start Time: 13:00 Stop Time: 13:30 Total Time Billed (hr/min): 30 Billed Treatment Time 1, EX x 15minutes, ADL x 15minutes JENNI OSBORN OT Jan 10, 2017 15:17
[2017-01-10 15:52] VITALS: BP 92/60
[2017-01-10] MEDS ORDERED: LORazepam 0.5 MG (ATIVAN) TABLET PO PRN (16:30)
[2017-01-10] MEDS ORDERED: LORazepam 1 MG (ATIVAN) TAB ONE (16:34)
[2017-01-10 18:08] VITALS: BP 90/52
[2017-01-10] MEDS: ATORVASTATIN 40 MG (LIPITOR) TABLET PO SCH (20:18)
[2017-01-11] MEDS: HYDROcodone/APAP 10 MG/325 MG (LORTAB) TAB PO PRN ×3 (01:03→17:30)
[2017-01-11] MEDS: ONDANSETRON 4 MG (ZOFRAN) ORAL DISSOLVE TAB PO PRN ×3 (01:25→13:13)
[2017-01-11 05:00] VITALS: BP 84/44
[2017-01-11 05:45] VITALS: BP 97/57
[2017-01-11] MEDS: PANTOPRAZOLE 40 MG (PROTONIX) TAB PO SCH (06:03)
[2017-01-11] MEDS: morphine ER 30 MG (MS CONTIN) TAB PO SCH ×3 (06:03→21:18)
[2017-01-11] MEDS: LEVOTHYROXINE 75 MCG (LEVOTHROID) TABLET PO SCH (06:03)
[2017-01-11] MEDS: LEVOTHYROXINE 100 MCG (LEVOTHROID) TAB PO SCH (06:03)
[2017-01-11] MEDS: CALCIUM CARBONATE 600 MG (CALCARB) TAB PO SCH (06:03)
[2017-01-11 06:13] VITALS: BP 97/59
[2017-01-11] MEDS ORDERED: ONDANSETRON 4 MG/2 ML (SDV) Z0FRAN IVP PRN (08:00)
--- NOTE | 2017-01-11 08:11 | PM & R (SOAP) Progress Note ---
Subjective Subjective/Events-last exam Patient was seen in his room this AM Patient with nausea and emesis after Breakfast and morning meds Current meds reviewed Blood pressure running low Coreg on hold with DR Davis aware.BUN/CR low Magnesium low on replacement.Will order IV Zofran See orders DR Jaime made aware yesterday Review of Systems Gastrointestinal: Abdominal Pain, Nausea, Vomiting Objective Exam Last Set of Vital Signs Vital Signs Date Time Temp Pulse Resp B/P (MAP) Pulse Ox O2 Delivery O2 Flow Rate FiO2 01/11/17 06:13 80 97/59 01/11/17 05:45 16 96 Room Air 01/11/17 05:00 97.7 Capillary Refill : Less Than 3 Seconds I&O Intake and Output 01/11/17 00:00 Intake Total 5041 ml Output Total 1125 ml Balance 3916 ml Intake Oral 5041 ml Output Urine Total 900 ml Stool Total 225 ml General: Alert, Oriented X3, Cooperative, No Acute Distress HEENT: Atraumatic, PERRLA, EOMI, Mucous Memb Moist/[place] Neck: Supple, No JVD Lungs: Clear to Auscultation Heart: Regular Rate, Normal S1, Normal S2 Abdomen: Normal Bowel Sounds, Soft, No Tenderness, Other (Mild abdominal tenderness) Extremities: No Clubbing, No Cyanosis, No Edema Neuro: Normal Speech, Cranial Nerves 3-12 NL Psych/Mental Status: Mental Status NL Results Lab Laboratory Tests 01/10/17 06:55: White Blood Count 10.7, Red Blood Count 3.13L, Hemoglobin 8.7L, Hematocrit 28L, Mean Corpuscular Volume 90, Mean Corpuscular Hemoglobin 28, Mean Corpuscular Hemoglobin Concent 31L, Red Cell Distribution Width 19.4H, Platelet Count 360, Mean Platelet Volume 9.5, Sodium Level 135, Potassium Level 3.9, Chloride Level 99, Carbon Dioxide Level 29, Anion Gap 7, Blood Urea Nitrogen 6L, Creatinine 0.76, Estimat Glomerular Filtration Rate > 60, BUN/Creatinine Ratio 8, Glucose Level 84, Calcium Level 8.0L, Magnesium Level 1.5L Microbiology 01/05/17 C. 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 DR Jaime on iv antibiotics Copd Gerd HTN Hypokalemia-replaced Hypomagnesemia- on replacement Hypokalemia-IMPROVED DVT prophylaxis-on Lovenox Subcut postop anemia Abdominal wound draiange improved with suturing nausea recurrent AM muscle cramps resolved spontaneously-Labs reviewed Plan Continue PT/OT Ongoing wound care and pain management Ostomy education for Patient and spouse Monitor labs and 02 sats and adjust meds as indicated.-remains on supplemental 02 Dr Jaime has seen re staple removal and suturing draining area improved Consult Highway Landscape Architect re supplement-done Possible discharge later this week Will f/u with SW re details. Team Conference later today see report for full functional update and POC and ELOS Appreciate Cardiology note. DR Jaime and Yolie reconsulted re persistent nausea Repeat Chem and IV Zofran ordered NATALIYA KHANNA MD Jan 11, 2017 08:11
--- NOTE | 2017-01-11 08:30 | Cardiology Progress Note ---
Subjective Subjective/Events-last exam Patient is in bed. Complaining of nausea this morning. Denies any CP or dyspnea. Review of Systems General: No Night Sweats, Fatigue, Malaise HEENT: No Visual Changes, No Dysphasia, No Sore Throat Pulmonary: No Dyspnea, No Cough Cardiovascular: No: Chest Pain, Edema, Palpitations, Paroxysmal Noc. Dyspnea Gastrointestinal: Nausea, Vomiting, No: Abdominal Pain Genitourinary: No Dysuria, No Frequency Musculoskeletal: No: back pain, neck pain Neurological: Weakness, No: Change in speech, Confusion, Numbness Objective-Cardiology Exam Last Set of Vital Signs Vital Signs 01/11/17 01/11/17 01/11/17 05:00 05:45 06:13 Temp 97.7 Pulse 80 Resp 16 B/P (MAP) 97/59 Pulse Ox 96 O2 Delivery Room Air Capillary Refill : Less Than 3 Seconds I&O Intake and Output 01/11/17 00:00 Intake Total 5041 ml Output Total 1125 ml Balance 3916 ml Intake Oral 5041 ml Output Urine Total 900 ml Stool Total 225 ml General: Alert, Oriented X3, Cooperative, No Acute Distress HEENT: Atraumatic, PERRLA, EOMI, Mucous Memb Moist/[place] Neck: Supple, No JVD Lungs: Clear to Auscultation Heart: Regular Rate, Normal S1, Normal S2 Abdomen: Normal Bowel Sounds, Soft, No Tenderness, Other (Mild abdominal tenderness) Extremities: No Clubbing, No Cyanosis, No Edema Neuro: Normal Speech, Cranial Nerves 3-12 NL Psych/Mental Status: Mental Status NL A/P-Cardiology Admission Diagnosis C. difficile colitis Sepsis CHF PVD Assessment/Plan C. difficile colitis, status post extended left hemicolectomy with Pam procedure, recovering slowly, Followed by Dr Jaime Short of breath, Reporting improvement. Continue to monitor. Peripheral edema, better, continue to monitor Congestive heart failure, nonischemic cardiomyopathy, acute on chronic left ventricular systolic dysfunction with most recent ejection fraction improved to 50 percent. Maintained on beta gurpreet and Entresto. Patient is hypotensive, I will discontinue Entresto at this time. Start low dose ARB tomorrow if BP allows. Continue to monitor. Nausea/vomiting- KUB ordered and hospitalist reconsulted. Continue to monitor. Status post anoxic encephalopathy and pneumonia and sepsis early in October, improved with aggressive therapy. Back to his baseline. Continue to monitor. Status post acute renal failure. Improved, monitor renal function closely Anemia- continue to monitor H/H closely Peripheral vascular disease with history of nonhealing wounds bilaterally. Peripheral angiogram done 12/04/16 revealed moderate atherosclerotic disease on the left lower extremity, the anterior tibial artery is severely diseased on the left lower extremity but the ulcer on the left lower extremity has healed. Medical therapy is recommended. Moderate disease of the right lower extremity with good flow, with three-vessel flow down to the foot. Continue medical management at this time and continue to monitor. Small infrarenal abdominal aortic aneurysm noted during peripheral angiogram. Continue to monitor Hypertension,currently hypotensive. I will discontinue Entresto at this time and continue to monitor. Hyperlipidemia, continue to hold statin. Hyperthyroidism, history of hypothyroidism, managed by primary care physician History of pulmonary hypertension, continue to monitor History of rheumatoid arthritis. COPD, managed and followed by primary care physician Tobaccoism, patient has stopped smoking after the last admission. Encouraged to continue with smoking cessation History of chronic narcotic use, urine drug screen is positive for opioids Clinical Quality Measures DVT/VTE Risk/Contraindication: Risk Factor Score Per Nursin RFS Level Per Nursing on Admit: 4+=Very High FATUAM GARCES Jan 11, 2017 08:30
[2017-01-11] MEDS: SACUBITRIL/VALSARTAN 24/26 MG (ENTRESTO) TABLET PO SCH ×2 (08:54→20:23)
[2017-01-11 09:10] LABS: ALANINE AMINOTRANSFERASE < 6 U/L (0-55); ANION GAP 8 MMOL/L (5-14); ASPARTATE AMINO TRANSFERASE 11 U/L (5-34); BILIRUBIN,TOTAL 0.2 MG/DL (0.1-1.0); BLOOD UREA NITROGEN 9 MG/DL (7-18); BUN/CREATININE RATIO 11; CARBON DIOXIDE 27 MMOL/L (21-32); CHLORIDE 97 MMOL/L (98-107); CREATININE SERUM 0.84 MG/DL (0.60-1.30); GFR ESTIMATED > 60; GLUCOSE 122 MG/DL (70-105); POTASSIUM 3.9 MMOL/L (3.6-5.0); SODIUM 132 MMOL/L (135-145); TOTAL PROTEIN 4.9 G/DL (6.4-8.2)
[2017-01-11] MEDS: CARVEDILOL 3.125 MG (COREG) TABLET PO SCH ×2 (09:35→20:23)
[2017-01-11] MEDS: FUROSEMIDE 20 MG (LASIX) TAB PO SCH (09:35)
[2017-01-11] MEDS: KCL 10 MEQ TAB (MICRO K) PO SCH ×2 (09:35→20:23)
[2017-01-11] MEDS: ASPIRIN E.C. 81 MG (ECOTRIN) TAB PO SCH (09:35)
[2017-01-11] MEDS: MAGNESIUM OXIDE (MAG-OX)400 MG TAB PO SCH ×2 (09:35→17:25)
--- NOTE | 2017-01-11 09:58 | Physical Therapy Daily Note ---
PT Daily Note-Current Subjective Patient came back from radiology about 09:00 AM and he will be going to PT. He will need to transfer into his own wheelchair from the radiology wheelchair. Patient is pretty sick today, very nauseated and states he has pain of 10/10 in his stomach, hands, and shoulders. Appearance Patient BTB post tx with nurse call, phone, tray, heels elevated, all needs met , basin on lap. Mental Status Patient Orientation: Normal For Age Transfers Functional [place] Measure 0=Not Assessed/NA 4=Minimal Assistance 1=Total Assistance 5=Supervision or Setup 2=Maximal Assistance 6=Modified [place] 3=Moderate Assistance 7=Complete IndependenceIRFPAI Quality Coding Scale 6 Independent with activity with or without an assistive device 5 Patient requires set up or clean up by helper. Patient completes activity by themselves 4 Supervision or touching assist (CGA). [place] provide cues , steadying assist 3 The helper provides less than half the effort to complete the activity 2 The helper provides more than half the effort to complete the activity 1 Dependent. The helper does all the effort to complete an activity 7 Patient refused to complete or attempt activity 9 The patient did not perform the activity before the current illness or injury 88 Not attempted due to Medical conditions or safety concerns Transfers (B, C, W/C) (FIM): 4 Scootin Rollin Supine to/from Sit: 4 Sit to/from Stand: 4 Bed to/from Chair: 4 Patient min assist for bed mobility and transfers. Patient takes an extraordinarily long time for transfers due to pain and waves of nausea. Wheelchair Training Does the Pt Use a Wheelchair?: Yes Wheelchair (FIM): 4 Distance: 150' Wheelchair Level of Assist: 4 Type of Wheelchair: Manual min assist to propel wheelchair due to patient being ill Exercises Seated Therapy Exercises: Ankle pumps, Hip flexion, Hip abd/add Seated Reps: 20 LAQ alternating for 5 min Treatments bed mobility and transfers, wheelchair mobility, functional strengthening Assessment Current Status: Poor Progress Patient is ill and it takes him a very long time to perform transfers or any mobility due to pain and nausea. PT Short Term Goals Short Term Goals Time Frame: Jan 04, 2017 Transfers (B,C,W/C) (FIM): 4 Gait (FIM): 2 Distance (FIM): 9=013-29 ft Gait Assistive Device: FWW Wheelchair Distance: 150'x2 Stairs (FIM): 2 # of Steps: 4 PT Usp Goals Usp Goals PT [employer] Sc[employer] Coordinator Goals Time Frame: January 18, 2017 Transfers (B,C,W/C) (FIM): 6 Sit to Lying (QC): 6 Lying-Sitting on Side/Bed(QC): 6 Sit to Stand (QC): 6 Rollin Roll Left to Right (QC): 6 Chair/Xmm-al-Rgqfj Xfer(QC): 6 Car Transfer (QC): 5 Does the Patient Walk: Yes Gait (FIM): 5 Gait distance (FIM): 4=523-37 ft Walk 10 feet (QC): 5 Walk 10ft-Uneven Surface(QC): 5 Walk 50ft with 2 Turns (QC): 5 Walk 150 ft (QC): 88 Gait Assistive Device: FWW Does the Pt use WC or Scooter?: Yes Wheelchair (FIM): 6 Wheelchair distance (FIM): 3=150 ft Wheel 50 feet with 2 turns (QC: 6 Stairs (FIM): 2 # of Steps: 4 1 Step (curb) (QC): 5 4 Steps (QC): 5 12 Steps (QC): 88 Picking up an Object (QC): 88 PT Plan Problem List Problem List: Activity Tolerance, Functional Strength, Safety, Balance, Gait, Transfer, Bed Mobility, ROM Treatment/Plan Treatment Plan: Continue Plan of Care Treatment Plan: Bed Mobility, Education, Functional Activity Juli, Functional Strength, Group Therapy, Gait, Safety, Therapeutic Exercise, Transfers Treatment Duration: January 18, 2017 Visits Per Week: 10-15 Minutes/Day (M-F): 60-90 Minutes/Day (Sat/Ferrara): prn Safety Risks/Education Patient Education: Transfer Techniques, Correct Positioning, W/C Management, Safety Issues Teaching Recipient: Patient Teaching Methods: Demonstration, Discussion Response to Teaching: Reinforcement Needed Time/GCodes Time In: 900 Time Out: 1000 Total Billed Treatment Time: 60 Total Billed Treatment 1 visit [facility] 15' EX 15' FA 30' ELSY AGUIRRE PT Jan 11, 2017 09:58
--- NOTE | 2017-01-11 10:14 | Diagnostic Imaging Report ---
EXAMINATION: KUB. INDICATION: Persistent post operative nausea. FINDINGS: A right lower quadrant stoma is seen. Skin анна are also noted. There is an unremarkable bowel gas pattern with no dilated bowel loops seen. Calcifications in the upper abdomen and pelvis are likely vascular. IMPRESSION: No dilated bowel loops to suggest obstruction. Dictated by: Dictated on workstation # [id number]
--- NOTE | 2017-01-11 10:26 | Cardiology Progress Note ---
Subjective Subjective/Events-last exam Patient is in bed, complaining of fatigue and nausea. had an XRay earlier Review of Systems General: No Chills, No Night Sweats, Fatigue, Malaise, No Appetite, No Other HEENT: No Head Aches, No Visual Changes, No Eye Pain, No Ear Pain, No Dysphasia , No Sinus Congestion, No Post Nasal Drip, No Sore Throat, No Other Pulmonary: Dyspnea, No Cough, No Pleuritic Chest Pain, No Other Cardiovascular: Edema, No: Chest Pain, Lt Headedness, Orthopnea, Other, Palpitations, Paroxysmal Noc. Dyspnea Gastrointestinal: Nausea Objective-Cardiology Exam Last Set of Vital Signs Vital Signs 01/11/17 01/11/17 01/11/17 05:00 05:45 06:13 Temp 97.7 Pulse 80 Resp 16 B/P (MAP) 97/59 Pulse Ox 96 O2 Delivery Room Air Capillary Refill : Less Than 3 Seconds I&O Intake and Output 01/11/17 00:00 Intake Total 5041 ml Output Total 1125 ml Balance 3916 ml Intake Oral 5041 ml Output Urine Total 900 ml Stool Total 225 ml General: Alert, Oriented X3, Cooperative, No Acute Distress HEENT: Atraumatic, PERRLA, EOMI, Mucous Memb Moist/[place] Neck: Supple, No JVD Lungs: Clear to Auscultation Heart: Regular Rate, Normal S1, Normal S2 Abdomen: Soft, No Tenderness, Other (Mild abdominal tenderness) Extremities: No Clubbing, No Cyanosis, No Edema Neuro: Normal Speech, Cranial Nerves 3-12 NL Psych/Mental Status: Mental Status NL Results Lab Laboratory Tests 01/11/17 08:41 A/P-Cardiology Admission Diagnosis C. difficile colitis Sepsis CHF PVD Assessment/Plan C. difficile colitis, status post extended left hemicolectomy with Pam procedure, Worse today. Followed by Dr Jaime Hypotension, I will adjust meds, Stop Entresto and use Losartan if BP is better Short of breath, Reporting improvement. Continue to monitor. Peripheral edema, better, continue to monitor Congestive heart failure, nonischemic cardiomyopathy, acute on chronic left ventricular systolic dysfunction with most recent ejection fraction improved to 50 percent. Maintained on beta gurpreet and Entresto. Patient is hypotensive, I will discontinue Entresto at this time. Start low dose ARB tomorrow if BP allows. Continue to monitor. Nausea/vomiting- KUB ordered and hospitalist reconsulted. Continue to monitor. Status post anoxic encephalopathy and pneumonia and sepsis early in October, improved with aggressive therapy. Back to his baseline. Continue to monitor. Status post acute renal failure. Improved, monitor renal function closely Anemia- continue to monitor H/H closely Peripheral vascular disease with history of nonhealing wounds bilaterally. Peripheral angiogram done 12/04/16 revealed moderate atherosclerotic disease on the left lower extremity, the anterior tibial artery is severely diseased on the left lower extremity but the ulcer on the left lower extremity has healed. Medical therapy is recommended. Moderate disease of the right lower extremity with good flow, with three-vessel flow down to the foot. Continue medical management at this time and continue to monitor. Small infrarenal abdominal aortic aneurysm noted during peripheral angiogram. Continue to monitor Hyperlipidemia, continue to hold statin. Hyperthyroidism, history of hypothyroidism, managed by primary care physician History of pulmonary hypertension, continue to monitor History of rheumatoid arthritis. COPD, managed and followed by primary care physician Tobaccoism, patient has stopped smoking after the last admission. Encouraged to continue with smoking cessation History of chronic narcotic use, urine drug screen is positive for opioids Clinical Quality Measures DVT/VTE Risk/Contraindication: Risk Factor Score Per Nursin RFS Level Per Nursing on Admit: 4+=Very High TORY HALL MD Jan 11, 2017 10:26
--- NOTE | 2017-01-11 10:48 | Occ Therapy Progress Note ---
Therapy Progress Note Attempted treatment this date. Pt. states that he is ill. States that he is nauseated. Results from testing this morning came back and pt does not have bowel obstruction. Have spoke with social professionals regarding plan. Spoke with nursing as well. Pt. declines all attempts at treatment. Will continue to check back throughout the day. 1, visit 1030 JENNI OSBORN OT Jan 11, 2017 10:48
--- NOTE | 2017-01-11 10:50 | Progress Note ---
Subjective Subjective/Events-last exam Pt seen and examined, complaining of abdominal pain. Describes it as crampy. Has some nausea past 2 days and states he had liquid emesis this am. He is urinating without difficulty and having BM and flatus. Rating pain as 4 out of 10. He is eating some of his food. Review of Systems General: No Chills, No Night Sweats HEENT: Head Aches Pulmonary: No Dyspnea, No Cough Cardiovascular: No: Chest Pain, Palpitations Gastrointestinal: Abdominal Pain, Nausea, Vomiting, No: Constipation, Diarrhea , Hematochezia, Melena Neurological: Weakness (all over, "Just tired") Objective Exam Vital Signs Date Time Temp Pulse Resp B/P (MAP) Pulse Ox O2 Delivery O2 Flow Rate FiO2 01/11/17 06:13 80 97/59 01/11/17 05:45 73 16 97/57 96 Room Air 01/11/17 05:00 97.7 68 20 84/44 94 Room Air 01/10/17 18:08 97.3 91 16 90/52 95 01/10/17 15:52 97.4 95 18 92/60 94 I & O 01/11/17 07:00 Intake Total 4901 ml Output Total 600 ml Balance 4301 ml Capillary Refill : Less Than 3 Seconds General Appearance: Chronically ill, Mild Distress, Thin HEENT: PERRL/EOMI, No Scleral Icterus (L), No Scleral Icterus (R) Neck: Supple Respiratory: Normal Breath Sounds, No Respiratory Distress Cardiovascular: Regular Rate, Rhythm, No Murmur Gastrointestinal: no organomegaly, guarding (feels like belly is tight, cannot be sure it is not voluntary), tenderness (diffuse and minimal), other (ostomy is pink and functional, no drainage from midline. Abd is non-distended, in fact looks better/smaller than it has since he has been admitted) Extremity: No Calf Tenderness, No Pedal Edema Neurologic/Psychiatric: Alert, Oriented x3, Depressed Affect Skin: Warm/Dry Results Lab Laboratory Tests 01/11/17 08:41: Sodium Level 132L, Potassium Level 3.9, Chloride Level 97L, Carbon Dioxide Level 27, Anion Gap 8, Blood Urea Nitrogen 9, Creatinine 0.84, Estimat Glomerular Filtration Rate > 60, BUN/Creatinine Ratio 11, Glucose Level 122H, Calcium Level 8.0L, Total Bilirubin 0.2, Aspartate Amino Transf (AST/SGOT) 11, Alanine Aminotransferase (ALT/SGPT) < 6, Alkaline Phosphatase 66, Total Protein 4.9L, Albumin 2.0L Microbiology 01/05/17 C. difficile GDH Antigen & Toxins - Final, Complete Assessment/Plan Assessment/Plan Assessment/Plan 1. Abd pain - new onset with nausea. KUB read by radiology as normal, no signs of obstruction. Unsure etiology. Will check UA. Do not think he needs CT at this point, but that could be a future order. 2. Protein malnutrition- pt is simply not eating enough and therefore not getting stronger. Nutrition consult ordered, with calorie count 3. Anemia - chronic 4. Hyponatremia Copd Gerd HTN Hypokalemia-resolved Hypomagnesemia- on replacement DVT prophylaxis-on Lovenox Subcut Abdominal incision no draiange now. Unfortunately pt is also not participating in physical therapy, whether this is due to nausea or his own choice. He needs to increase exercise, even twice a day is not enough. Nutrition may help give him more strength. Clinical Quality Measures DVT/VTE Risk/Contraindication: Risk Factor Score Per Nursin RFS Level Per Nursing on Admit: 4+=Very High NATALIYA BOSWELL DO Jan 11, 2017 10:50
--- NOTE | 2017-01-11 13:42 | Occupational Ther Daily Note ---
OT Current Status-Daily Note Subjective Pt lying in bed with eyes closed. Nrsg present in room given medications. Pt agreed to therapy. Pt stated that he still felt nauseous. Nrsg stated that pt' s lunch was coming. Mental Status/Objective Patient Orientation: Person, Place, Time, Situation Functional [place] Measure 0=Not Assessed/NA 4=Minimal Assistance 1=Total Assistance 5=Supervision or Setup 2=Maximal Assistance 6=Modified [place] 3=Moderate Assistance 7=Complete [place] ADL-Treatment Lunch arrived and OT set up. Pt did not attempt to use UE to use utensils to eat or open packages. OT assisted with eating lunch. Pt uses straw for tomato soup. Functional [place] Measure 0=Not Assessed/NA 4=Minimal Assistance 1=Total Assistance 5=Supervision or Setup 2=Maximal Assistance 6=Modified [place] 3=Moderate Assistance 7=Complete IndependenceIRFPAI Quality Coding Scale 6 Independent with activity with or without an assistive device 5 Patient requires set up or clean up by helper. Patient completes activity by themselves 4 Supervision or touching assist (CGA). [place] provide cues , steadying assist 3 The helper provides less than half the effort to complete the activity 2 The helper provides more than half the effort to complete the activity 1 Dependent. The helper does all the effort to complete an activity 7 Patient refused to complete or attempt activity 9 The patient did not perform the activity before the current illness or injury 88 Not attempted due to Medical conditions or safety concerns Other Treatment Pt c/o R shldr pain and stiffness. Massage to area to decrease pain and stiffness of R shldr. Pt appeared to have increase of neck ROM after massage though did not demonstrate increase of shldr ROM. Pt had difficulty keeping eyes open through treatment, name called to wake pt. After therapy, pt lying in bed with call light/phone in reach. All needs met in room. OT Short Term Goals Short Term Goals Time Frame: Jan 04, 2017 Eating(FIM): 5 Grooming(FIM): 5 Bathing(FIM): 4 Upper Body Dressing(FIM): 4 Lower Body Dressing(FIM): 4 Toileting(FIM): 4 Transfers (B,C,W/C) (FIM): 4 Toilet/Commode Transfer(FIM): 5 Shower Transfer(FIM): 5 Additional Short Term Goals: 1-Demonstrate ADL Tasks, 2-Verbalize Understanding , 3-ImproveStrength/Juli 1=Demonstrate adherence to instructed precautions during ADL tasks. 2=Patient will verbalize/demonstrate understanding of assistive devices/ modifications for ADL. 3=Patient will improve strength/tolerance for activity to enable patient to perform ADL's. OT Market Stall Vendor Goals Correction Goals Time Frame: January 18, 2017 Eating (FIM): 6 Eating (QC): 6 Groomin Oral Hygiene (QC): 6 Bathing(FIM): 5 Shower/Bathe Self (QC): 5 Upper Body Dressing(FIM): 6 Upper Body Dressing (QC): 6 Lower Body Dressing(FIM): 6 Lower Body Dressing (QC): 6 On/Off Footwear (QC): 6 Toileting(FIM): 6 Toileting Hygiene (QC): 6 Transfers (B,C,W/C) (FIM): 6 Toilet/Commode Transfer(FIM): 6 Toilet/Commode Transfer (QC): 6 Shower Transfer(FIM): 5 Additional Goals: 1-Demonstrate ADL Tasks, 2-Verbalize Understanding, 3- ImproveStrength/Juli 1=Demonstrate adherence to instructed precautions during ADL tasks. 2=Patient will verbalize/demonstrate understanding of assistive devices/ modifications for ADL. 3=Patient will improve strength/tolerance for activity to enable patient to perform ADL's. OT Education/Plan Discharge Recommendations Plan/Recommendations: Continue POC Treatment Plan/Plan of Care Patient would benefit from OT for education, treatment and training to promote independence in ADL's, mobility, safety and/or upper extremity function for ADL' s. Plan of Care: ADL Retraining, Caregiver Training, Functional Mobility, Group Exercise/Act as Ind, UE Funct Exercise/Act Treatment Duration: January 18, 2017 Visits Per Week: 10-12 Minutes/Day (M-F): 60-90 Minutes/Day (Sat/Ferrara): prn Agreement: Yes Rehab Potential: Fair Time/GCodes Start Time: 13:00 Stop Time: 13:30 Total Time Billed (hr/min): 30 Billed Treatment Time 1 visit-FA 2 (30 min) SOMMER SORENSON Jan 11, 2017 13:42
--- NOTE | 2017-01-11 14:00 | Physical Therapy Daily Note ---
PT Daily Note-Current Subjective Patient in bed pre tx, trying to eat lunch, but is very lethargic. Patient states he has pain of 9-10/10 in his shoulders, hands, and abdomen. Patient agrees to bed exercises. Appearance Patient in bed post tx to continue to eat lunch, has nurse call, phone, tray, all needs met. Heels elevated also. Mental Status Patient Orientation: Person, Place, Situation Transfers Functional [place] Measure 0=Not Assessed/NA 4=Minimal Assistance 1=Total Assistance 5=Supervision or Setup 2=Maximal Assistance 6=Modified [place] 3=Moderate Assistance 7=Complete IndependenceIRFPAI Quality Coding Scale 6 Independent with activity with or without an assistive device 5 Patient requires set up or clean up by helper. Patient completes activity by themselves 4 Supervision or touching assist (CGA). [place] provide cues , steadying assist 3 The helper provides less than half the effort to complete the activity 2 The helper provides more than half the effort to complete the activity 1 Dependent. The helper does all the effort to complete an activity 7 Patient refused to complete or attempt activity 9 The patient did not perform the activity before the current illness or injury 88 Not attempted due to Medical conditions or safety concerns Exercises Supine Ex: Ankle pumps, Quad Set, Glut sets, Heel Slides, Short Arc Quads, Straight leg raise, Hip abd/add Supine Reps: 20 Treatments functional strengthening Assessment Current Status: Poor Progress Patient was very lethargic and would fall asleep and need to be roused so he could continue. PT Short Term Goals Short Term Goals Time Frame: Jan 04, 2017 Transfers (B,C,W/C) (FIM): 4 Gait (FIM): 2 Distance (FIM): 9=387-17 ft Gait Assistive Device: FWW Wheelchair Distance: 150' Stairs (FIM): 2 # of Steps: 4 PT Detention Goals Detention Goals PT Furrier Shop Supervisor Goals Time Frame: January 18, 2017 Transfers (B,C,W/C) (FIM): 6 Sit to Lying (QC): 6 Lying-Sitting on Side/Bed(QC): 6 Sit to Stand (QC): 6 Rollin Roll Left to Right (QC): 6 Chair/Wiq-xl-Jeuva Xfer(QC): 6 Car Transfer (QC): 5 Does the Patient Walk: Yes Gait (FIM): 5 Gait distance (FIM): 1=069-14 ft Walk 10 feet (QC): 5 Walk 10ft-Uneven Surface(QC): 5 Walk 50ft with 2 Turns (QC): 5 Walk 150 ft (QC): 88 Gait Assistive Device: FWW Does the Pt use WC or Scooter?: Yes Wheelchair (FIM): 6 Wheelchair distance (FIM): 3=150 ft Wheel 50 feet with 2 turns (QC: 6 Stairs (FIM): 2 # of Steps: 4 1 Step (curb) (QC): 5 4 Steps (QC): 5 12 Steps (QC): 88 Picking up an Object (QC): 88 PT Plan Problem List Problem List: Activity Tolerance, Functional Strength, Safety, Balance, Gait, Transfer, Bed Mobility, ROM Treatment/Plan Treatment Plan: Continue Plan of Care Treatment Plan: Bed Mobility, Education, Functional Activity Juli, Functional Strength, Group Therapy, Gait, Safety, Therapeutic Exercise, Transfers Treatment Duration: January 18, 2017 Visits Per Week: 10-15 Minutes/Day (M-F): 60-90 Minutes/Day (Sat/Ferrara): prn Safety Risks/Education Patient Education: Correct Positioning, Safety Issues Teaching Recipient: Patient Teaching Methods: Demonstration, Discussion Response to Teaching: Reinforcement Needed Time/GCodes Time In: 1300 Time Out: 1330 Total Billed Treatment Time: 30 Total Billed Treatment 1 visit EX 30' ELSY AGUIRRE PT Jan 11, 2017 14:00
[2017-01-11] MEDS: ENOXAPARIN 40 MG/0.4 ML (LOVENOX) SYR SC SCH (14:06)
[2017-01-11] MEDS ORDERED: ONDANSETRON 4 MG/2 ML (SDV) Z0FRAN IVP NR (16:08)
[2017-01-11 16:34] LABS: BILIRUBIN,URINE NEGATIVE (NEGATIVE); KETONES,URINE NEGATIVE (NEGATIVE); LEUKOCYTE ESTERASE ,URINE 1+ (NEGATIVE); NITRITE,URINE NEGATIVE (NEGATIVE); PH,URINE 6.5 (5-9); PROTEIN,URINE 2+ (NEGATIVE); UROBILINOGEN,URINE NORMAL (NORMAL)
[2017-01-11 16:47] LABS: SQUAMOUS EPITHELIAL CELL,UR RARE /HPF
[2017-01-11 18:15] VITALS: BP 92/50
[2017-01-11] MEDS ORDERED: ONDANSETRON 4 MG (ZOFRAN) ORAL DISSOLVE TAB ONE (19:49)
[2017-01-11] MEDS: ATORVASTATIN 40 MG (LIPITOR) TABLET PO SCH (20:23)
[2017-01-11] MEDS: ONDANSETRON 4 MG (ZOFRAN) ORAL DISSOLVE TAB PO SCH (20:24)
[2017-01-11] MEDS ORDERED: ONDANSETRON 4 MG/2 ML (SDV) Z0FRAN IVP SCH (21:00)
[2017-01-12] MEDS: HYDROcodone/APAP 10 MG/325 MG (LORTAB) TAB PO PRN ×2 (02:24→08:18)
[2017-01-12 06:29] VITALS: BP 94/53
[2017-01-12] MEDS: CALCIUM CARBONATE 600 MG (CALCARB) TAB PO SCH (06:33)
[2017-01-12] MEDS: morphine ER 30 MG (MS CONTIN) TAB PO SCH (06:33)
[2017-01-12] MEDS: LEVOTHYROXINE 75 MCG (LEVOTHROID) TABLET PO SCH (06:33)
[2017-01-12] MEDS: PANTOPRAZOLE 40 MG (PROTONIX) TAB PO SCH (06:33)
[2017-01-12] MEDS: LEVOTHYROXINE 100 MCG (LEVOTHROID) TAB PO SCH (06:33)
[2017-01-12] MEDS: CARVEDILOL 3.125 MG (COREG) TABLET PO SCH (08:05)
[2017-01-12] MEDS: KCL 10 MEQ TAB (MICRO K) PO SCH (08:05)
[2017-01-12] MEDS: MAGNESIUM OXIDE (MAG-OX)400 MG TAB PO SCH (08:05)
[2017-01-12] MEDS: ASPIRIN E.C. 81 MG (ECOTRIN) TAB PO SCH (08:05)
[2017-01-12] MEDS: SACUBITRIL/VALSARTAN 24/26 MG (ENTRESTO) TABLET PO SCH (08:05)
[2017-01-12] MEDS: ONDANSETRON 4 MG (ZOFRAN) ORAL DISSOLVE TAB PO SCH (08:05)
--- NOTE | 2017-01-12 08:13 | Cardiology Progress Note ---
Subjective Subjective/Events-last exam Patient in bed. Continues to feel fatigued, continues to complain of nausea. Denies emesis this morning. Denies any CP or dyspnea. Review of Systems General: No Night Sweats, No Fatigue, No Malaise HEENT: No Visual Changes, No Dysphasia Pulmonary: No Dyspnea, No Cough Cardiovascular: No: Chest Pain, Edema, Palpitations, Paroxysmal Noc. Dyspnea Gastrointestinal: Abdominal Pain, Nausea, Vomiting, No: Constipation, Diarrhea Genitourinary: No Dysuria, No Frequency Musculoskeletal: No: back pain, neck pain Neurological: Weakness, No: Change in speech, Confusion, Numbness Objective-Cardiology Exam Last Set of Vital Signs Vital Signs 01/12/17 06:29 Temp 96.3 Pulse 78 Resp 16 B/P (MAP) 94/53 Pulse Ox 95 O2 Delivery Room Air Capillary Refill : Less Than 3 Seconds I&O Intake and Output 01/12/17 00:00 Intake Total 400 ml Output Total 300 ml Balance 100 ml Intake Oral 400 ml Stool Total 300 ml # Voids 6 General: Alert, Oriented X3, Cooperative, No Acute Distress HEENT: Atraumatic, PERRLA, EOMI, Mucous Memb Moist/[place] Neck: Supple, No JVD Lungs: Clear to Auscultation Heart: Regular Rate, Normal S1, Normal S2 Abdomen: Soft, No Tenderness, Other (Mild abdominal tenderness) Extremities: No Clubbing, No Cyanosis, No Edema Neuro: Normal Speech, Cranial Nerves 3-12 NL Psych/Mental Status: Mental Status NL Results Lab Laboratory Tests 01/11/17 08:41 A/P-Cardiology Admission Diagnosis C. difficile colitis Sepsis CHF PVD Assessment/Plan C. difficile colitis, status post extended left hemicolectomy with Pam procedure, Worse today. Followed by Dr Jaime Hypotension,Entresto discontinued, planning to use low dose Losartan if BP is better Short of breath, Reporting improvement. Continue to monitor. Peripheral edema, better, continue to monitor Congestive heart failure, nonischemic cardiomyopathy, acute on chronic left ventricular systolic dysfunction with most recent ejection fraction improved to 50 percent. Maintained on beta gurpreet and Entresto. Patient is hypotensive, I will discontinue Entresto at this time. Start low dose ARB tomorrow if BP allows. Continue to monitor. Nausea/vomiting- KUB WNL. Dr Jaime following. Status post anoxic encephalopathy and pneumonia and sepsis early in October, improved with aggressive therapy. Back to his baseline. Continue to monitor. Status post acute renal failure. Improved, monitor renal function closely Anemia- continue to monitor H/H closely Peripheral vascular disease with history of nonhealing wounds bilaterally. Peripheral angiogram done 12/04/16 revealed moderate atherosclerotic disease on the left lower extremity, the anterior tibial artery is severely diseased on the left lower extremity but the ulcer on the left lower extremity has healed. Medical therapy is recommended. Moderate disease of the right lower extremity with good flow, with three-vessel flow down to the foot. Continue medical management at this time and continue to monitor. Small infrarenal abdominal aortic aneurysm noted during peripheral angiogram. Continue to monitor Hyperlipidemia, continue to hold statin. Hyperthyroidism, history of hypothyroidism, managed by primary care physician History of pulmonary hypertension, continue to monitor History of rheumatoid arthritis. COPD, managed and followed by primary care physician Tobaccoism, patient has stopped smoking after the last admission. Encouraged to continue with smoking cessation History of chronic narcotic use, urine drug screen is positive for opioids Clinical Quality Measures DVT/VTE Risk/Contraindication: Risk Factor Score Per Nursin RFS Level Per Nursing on Admit: 4+=Very High FATUMA GARCES Jan 12, 2017 08:13
--- NOTE | 2017-01-12 08:17 | PM & R (SOAP) Progress Note ---
Subjective Subjective/Events-last exam Patient was seen in his room this AM Patient c/o persistent nausea May need to be placed on bowel rest with IV placed for Nutritionasl and fluid support, Patient SBA to Min assist for transfers depending on his complaints of nausea. Labs and Xray reviewed Missed much of therapies yesterday due to nausea Review of Systems Gastrointestinal: Nausea Objective Exam Last Set of Vital Signs Vital Signs Date Time Temp Pulse Resp B/P (MAP) Pulse Ox O2 Delivery O2 Flow Rate FiO2 01/12/17 06:29 96.3 78 16 94/53 95 Room Air Capillary Refill : Less Than 3 Seconds I&O Intake and Output 01/12/17 00:00 Intake Total 400 ml Output Total 300 ml Balance 100 ml Intake Oral 400 ml Stool Total 300 ml # Voids 6 General: Alert, Oriented X3, Cooperative, No Acute Distress HEENT: Atraumatic, PERRLA, EOMI, Mucous Memb Moist/[place] Neck: Supple, No JVD Lungs: Clear to Auscultation Heart: Regular Rate, Normal S1, Normal S2 Abdomen: Soft, No Tenderness, Other ( colostomy functioning and no drainage noted from incision site Patient with mild abdominal tenderness) Extremities: No Clubbing, No Cyanosis, No Edema Neuro: Normal Speech, Cranial Nerves 3-12 NL Psych/Mental Status: Mental Status NL Results Lab Laboratory Tests 01/10/17 06:55: White Blood Count 10.7, Red Blood Count 3.13L, Hemoglobin 8.7L, Hematocrit 28L, Mean Corpuscular Volume 90, Mean Corpuscular Hemoglobin 28, Mean Corpuscular Hemoglobin Concent 31L, Red Cell Distribution Width 19.4H, Platelet Count 360, Mean Platelet Volume 9.5, Sodium Level 135, Potassium Level 3.9, Chloride Level 99, Carbon Dioxide Level 29, Anion Gap 7, Blood Urea Nitrogen 6L, Creatinine 0.76, Estimat Glomerular Filtration Rate > 60, BUN/Creatinine Ratio 8, Glucose Level 84, Calcium Level 8.0L, Magnesium Level 1.5L 01/11/17 08:41: Sodium Level 132L, Potassium Level 3.9, Chloride Level 97L, Carbon Dioxide Level 27, Anion Gap 8, Blood Urea Nitrogen 9, Creatinine 0.84, Estimat Glomerular Filtration Rate > 60, BUN/Creatinine Ratio 11, Glucose Level 122H, Calcium Level 8.0L, Total Bilirubin 0.2, Aspartate Amino Transf (AST/SGOT) 11, Alanine Aminotransferase (ALT/SGPT) < 6, Alkaline Phosphatase 66, Total Protein 4.9L, Albumin 2.0L 01/11/17 16:15: Urine Color YELLOW, Urine Clarity CLEAR, Urine pH 6.5, Urine Specific [place] 1.015L, Urine Protein 2+H, Urine Glucose (UA) NEGATIVE, Urine Ketones NEGATIVE, Urine Nitrite NEGATIVE, Urine Bilirubin NEGATIVE, Urine Urobilinogen NORMAL, Urine Leukocyte Esterase 1+H, Urine RBC (Auto) NEGATIVE, Urine RBC NONE, Urine WBC 2-5, Urine Squamous Epithelial Cells RARE, Urine Crystals NONE, Urine Bacteria TRACE, Urine Casts PRESENT, Urine Hyaline Casts 5-10H, Urine Mucus NEGATIVE, Urine Culture Indicated NO Microbiology 01/05/17 C. 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 DR Jaime on iv antibiotics Copd Gerd HTN Hypokalemia-replaced Hypomagnesemia- on replacement Hypokalemia-IMPROVED DVT prophylaxis-on Lovenox Subcut postop anemia Abdominal wound draiange improved with suturing nausea recurrent AM muscle cramps resolved spontaneously-Labs reviewed Plan Continue PT/OT Ongoing wound care and pain management Ostomy education for Patient and spouse Monitor labs and 02 sats and adjust meds as indicated.-remains on supplemental 02 Dr Jaime has seen re staple removal and suturing draining area improved Consult Special Education Teaching Assistant re supplement-done Team Conference held yesterday- see report for full functional update and POC and ELOS Appreciate Cardiology note. DR Jaime and Yolie reconsulted re persistent nausea Repeat Chem and SL Zofran ordered May need bowel rest and IVFS for persistent nausea NATALIYA KHANNA MD Jan 12, 2017 08:17
--- NOTE | 2017-01-12 10:03 | Physical Therapy Daily Note ---
PT Daily Note-Current Subjective Patient in bed pre tx, reluctantly agrees to PT, has pain of 7/10 today. Still nauseated and ill. Appearance Patient in wheelchair at bedside per OT request, she has patient right after PT. Patient has nurse call, phone, tray, all needs met. Mental Status Patient Orientation: Normal For Age Transfers Functional [place] Measure 0=Not Assessed/NA 4=Minimal Assistance 1=Total Assistance 5=Supervision or Setup 2=Maximal Assistance 6=Modified [place] 3=Moderate Assistance 7=Complete IndependenceIRFPAI Quality Coding Scale 6 Independent with activity with or without an assistive device 5 Patient requires set up or clean up by helper. Patient completes activity by themselves 4 Supervision or touching assist (CGA). [place] provide cues , steadying assist 3 The helper provides less than half the effort to complete the activity 2 The helper provides more than half the effort to complete the activity 1 Dependent. The helper does all the effort to complete an activity 7 Patient refused to complete or attempt activity 9 The patient did not perform the activity before the current illness or injury 88 Not attempted due to Medical conditions or safety concerns Transfers (B, C, W/C) (FIM): 4 Scootin Rollin Supine to/from Sit: 4 Sit to/from Stand: 4 Bed to/from Chair: 4 Better bed mobility, needs min assist for supine to sit and for SPT. Exercises NuStep Minutes: 10 NuStep Workload: 4 Treatments bed mobility and transfers, functional strengthening Assessment Current Status: Poor Progress Patient had little change in mobility. He still takes an extraordinary time to perform bed mobility and transfers due to pain and waves of nausea. PT Short Term Goals Short Term Goals Time Frame: Jan 04, 2017 Transfers (B,C,W/C) (FIM): 4 Gait (FIM): 2 Distance (FIM): 0=808-10 ft Gait Assistive Device: FWW Wheelchair Distance: 150' Stairs (FIM): 2 # of Steps: 4 PT [facility] Goals [facility] Goals PT Marketing Secretary Goals Time Frame: January 18, 2017 Transfers (B,C,W/C) (FIM): 6 Sit to Lying (QC): 6 Lying-Sitting on Side/Bed(QC): 6 Sit to Stand (QC): 6 Rollin Roll Left to Right (QC): 6 Chair/Dxd-ig-Dclyf Xfer(QC): 6 Car Transfer (QC): 5 Does the Patient Walk: Yes Gait (FIM): 5 Gait distance (FIM): 9=763-09 ft Walk 10 feet (QC): 5 Walk 10ft-Uneven Surface(QC): 5 Walk 50ft with 2 Turns (QC): 5 Walk 150 ft (QC): 88 Gait Assistive Device: FWW Does the Pt use WC or Scooter?: Yes Wheelchair (FIM): 6 Wheelchair distance (FIM): 3=150 ft Wheel 50 feet with 2 turns (QC: 6 Stairs (FIM): 2 # of Steps: 4 1 Step (curb) (QC): 5 4 Steps (QC): 5 12 Steps (QC): 88 Picking up an Object (QC): 88 PT Plan Problem List Problem List: Activity Tolerance, Functional Strength, Safety, Balance, Gait, Transfer, Bed Mobility, ROM Treatment/Plan Treatment Plan: Continue Plan of Care Treatment Plan: Bed Mobility, Education, Functional Activity Juli, Functional Strength, Group Therapy, Gait, Safety, Therapeutic Exercise, Transfers Treatment Duration: January 18, 2017 Visits Per Week: 10-15 Minutes/Day (M-F): 60-90 Minutes/Day (Sat/[place]): prn Safety Risks/Education Patient Education: Transfer Techniques, Correct Positioning, Safety Issues Teaching Recipient: Patient Teaching Methods: Demonstration, Discussion Response to Teaching: Reinforcement Needed Time/GCodes Time In: 900 Time Out: 1000 Total Billed Treatment Time: 60 Total Billed Treatment 1 visit EX 10 min FA 50 min ELSY AGUIRRE PT Jan 12, 2017 10:03
[2017-01-12] MEDS ORDERED: NS IV 1000 ML 1,000 ML ONE (11:28)
--- NOTE | 2017-01-12 11:29 | Occupational Ther Daily Note ---
OT Current Status-Daily Note Subjective Pt. states that he feels like he will pass out. Appearance Pt. is up in wheelchair waiting for therapist. Pt. is hunched over in chair. States he needs to get back to his bed "right away." Mental Status/Objective Patient Orientation: Person Functional [place] Measure 0=Not Assessed/NA 4=Minimal Assistance 1=Total Assistance 5=Supervision or Setup 2=Maximal Assistance 6=Modified [place] 3=Moderate Assistance 7=Complete [place] ADL-Treatment Functional [place] Measure 0=Not Assessed/NA 4=Minimal Assistance 1=Total Assistance 5=Supervision or Setup 2=Maximal Assistance 6=Modified [place] 3=Moderate Assistance 7=Complete IndependenceIRFPAI Quality Coding Scale 6 Independent with activity with or without an assistive device 5 Patient requires set up or clean up by helper. Patient completes activity by themselves 4 Supervision or touching assist (CGA). [place] provide cues , steadying assist 3 The helper provides less than half the effort to complete the activity 2 The helper provides more than half the effort to complete the activity 1 Dependent. The helper does all the effort to complete an activity 7 Patient refused to complete or attempt activity 9 The patient did not perform the activity before the current illness or injury 88 Not attempted due to Medical conditions or safety concerns Lower Body Dressing (FIM): 2 (Pt. requires max assistance for OT to doff shoes. ) Toileting (FIM): 1 (OT and nursing empty colostomy bag. Pt. dependent with this task.) Transfers (B, C, W/C) (FIM): 3 (Pt. requires mod assist to stand and pivot to bed. OT asks pt. to take steps back toward bed. Pt. starts to say that he can' t. OT assists pt. to bed. Mod assist to get feet into bed.) Other Treatment Pt. very pale. Nursing comes into room while pt. transferring. Before transfer , attempted to get pt's blood pressure. Unable to get with machine. Transferred to bed. Supine, pt.'s blood pressure is 58/38. Nursing aware. Pt. 's oxygen is 89%. Nursing put 1 L on. Pt. made comfortable. Pt. unable to participate further. Nursing calling PtStuart to transfer to ICU for change in medical status. Education OT Patient Education: Correct positioning, Progress toward Goal/Update tx plan , Purpose of tx/functional activities, Reviewed precautions, Rehab process, Transfer techniques Teaching Recipient: Patient Teaching Methods: Demonstration, Discussion Response to Teaching: Verbalize Understanding, Return Demonstration OT Short Term Goals Short Term Goals Time Frame: Jan 04, 2017 Eating(FIM): 5 Grooming(FIM): 5 Bathing(FIM): 4 Upper Body Dressing(FIM): 4 Lower Body Dressing(FIM): 4 Toileting(FIM): 4 Transfers (B,C,W/C) (FIM): 4 Toilet/Commode Transfer(FIM): 5 Shower Transfer(FIM): 5 Additional Short Term Goals: 1-Demonstrate ADL Tasks, 2-Verbalize Understanding , 3-ImproveStrength/Juli 1=Demonstrate adherence to instructed precautions during ADL tasks. 2=Patient will verbalize/demonstrate understanding of assistive devices/ modifications for ADL. 3=Patient will improve strength/tolerance for activity to enable patient to perform ADL's. OT Detention Goals Delivery Agent Goals Time Frame: January 18, 2017 Eating (FIM): 6 Eating (QC): 6 Groomin Oral Hygiene (QC): 6 Bathing(FIM): 5 Shower/Bathe Self (QC): 5 Upper Body Dressing(FIM): 6 Upper Body Dressing (QC): 6 Lower Body Dressing(FIM): 6 Lower Body Dressing (QC): 6 On/Off Footwear (QC): 6 Toileting(FIM): 6 Toileting Hygiene (QC): 6 Transfers (B,C,W/C) (FIM): 6 Toilet/Commode Transfer(FIM): 6 Toilet/Commode Transfer (QC): 6 Shower Transfer(FIM): 5 Additional Goals: 1-Demonstrate ADL Tasks, 2-Verbalize Understanding, 3- ImproveStrength/Juli 1=Demonstrate adherence to instructed precautions during ADL tasks. 2=Patient will verbalize/demonstrate understanding of assistive devices/ modifications for ADL. 3=Patient will improve strength/tolerance for activity to enable patient to perform ADL's. OT Education/Plan Problem List/Assessment Assessment: Decreased Activ Tolerance, Decreased UE Strength, Dependent Transfers, Impaired Bed Mobility, Impaired Coordination, Impaired Funct Balance , Impaired I ADL's, Impaired Self-Care Skills, Restricted Funct UE ROM Discharge Recommendations Plan/Recommendations: Continue POC Therapy D/C Recommendations: 24 hr Supervision Target Placement Pt. discharging to ICU this date for change in medical status. Treatment Plan/Plan of Care Treatment,Training & Education: Yes Plan of Care: ADL Retraining, Caregiver Training, Functional Mobility, Group Exercise/Act as Ind, UE Funct Exercise/Act Treatment Duration: January 18, 2017 Visits Per Week: 10-12 Minutes/Day (M-F): 60-90 Minutes/Day (Sat/[place]): prn Agreement: Yes Rehab Potential: Guarded Time/GCodes Start Time: 10:15 Stop Time: 10:55 Total Time Billed (hr/min): 40 Billed Treatment Time 1, ADL x 3 JENNI OSBORN OT Jan 12, 2017 11:29
[2017-01-12] MEDS ORDERED: NS IV 1000 ML 1,000 ML IV SCH (11:45)
[2017-01-12] MEDS ORDERED: IOHEXOL 350 MG/ML 100 ML (OMNIPAQUE 350) VIAL IV ONE (12:15)
[2017-01-12] MEDS ORDERED: NS 100 ML (IVPB) BAG IV ONE (12:15)
[2017-01-12] MEDS ORDERED: CATHETER FLUSH 10 ML SYR IV PRN (12:15)
[2017-01-12 12:38] LABS: MEAN PLATELET VOLUME 9.2 FL (7.4-10.4); RED BLOOD COUNT 2.73 10^6/uL (4.35-5.85); RED CELL DISTRIBUTION WIDTH 18.8 % (10.0-14.5); WHITE BLOOD COUNT 9.2 10^3/uL (4.3-11.0)
[2017-01-12 12:55] LABS: ALANINE AMINOTRANSFERASE 7 U/L (0-55); ALBUMIN 1.9 G/DL (3.2-4.5); ANION GAP 6 MMOL/L (5-14); ASPARTATE AMINO TRANSFERASE 11 U/L (5-34); BILIRUBIN,TOTAL 0.2 MG/DL (0.1-1.0); BLOOD UREA NITROGEN 9 MG/DL (7-18); BUN/CREATININE RATIO 10; CALCIUM 7.8 MG/DL (8.5-10.1); CARBON DIOXIDE 28 MMOL/L (21-32); CHLORIDE 100 MMOL/L (98-107); CREATININE SERUM 0.86 MG/DL (0.60-1.30); GFR ESTIMATED > 60; GLUCOSE 100 MG/DL (70-105); POTASSIUM 4.1 MMOL/L (3.6-5.0); SODIUM 134 MMOL/L (135-145); TOTAL PROTEIN 4.5 G/DL (6.4-8.2)
--- NOTE | 2017-01-12 13:38 | Diagnostic Imaging Report ---
PROCEDURE: CT chest, abdomen, and pelvis with contrast. TECHNIQUE: Multiple contiguous axial images were obtained through the chest, abdomen, and pelvis after the administration of intravenous contrast. INDICATION: Hypertension. CONTRAST: 100 mL of Omnipaque 350 is administered intravenously. FINDINGS: CT chest: Upper lobe predominant emphysema is seen. There are bibasilar mild atelectatic changes noted. No significant consolidation. The heart size is mildly prominent. There is a minimal amount of air seen in the right ventricle and in the pulmonary trunk. This is presumably related to escaped air through the IV line. No pericardial or pleural effusion. No mediastinal mass. No significantly enlarged mediastinal or hilar lymph nodes seen. There is, however, a 1.1 cm borderline-sized right hilar lymph node, of questionable significance. No axillary lymphadenopathy seen. The osseous structures demonstrate multiple old left rib fractures with deformity and displacement seen. 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 There is mild pleural thickening seen adjacent to the site of the fractures. CT abdomen and pelvis: The liver demonstrate a 1.2 cm hypodense lesion in the anterior aspect of the right hepatic lobe. This is stable from 2015 exam and is likely a cyst. There is also in the lateral upper aspect of the right hepatic lobe an enhancing lesion measuring 2.3 cm with appearance similar to March 2015 exam suggestive of a hemangioma. A small flash-filling hemangioma measuring 1.5 cm in more inferior location of the right hepatic lobe is also seen. The gallbladder demonstrates no definite stone. There is mild gallbladder wall thickening which appears to be related to the adjacent inflamed colon. There is significant colonic wall thickening and inflammation in the fat surrounding it. The right colon is without evidence of perforation or abscess. No free air. There is, however, a small amount of free fluid noted in the pelvis. There is no dilated bowel loop to suggest obstruction. The kidneys have symmetric enhancement and contrast excretion. No hydronephrosis. The abdominal aorta is slightly ectatic with atherosclerotic changes. No significant aneurysmal dilatation, however. The osseous structures appear grossly unremarkable. IMPRESSION: CT chest: 1. Minimal amount of air in the right ventricle and pulmonary trunk, probably from an IV line handling or IV injections. 2. Nonspecific 1.1 cm right hilar borderline-sized lymph node. CT abdomen and pelvis: There is significant inflammation in the remaining right colon leading to the right colostomy with associated wall thickening and inflammatory changes in the surrounding fat. There is also a small amount of free fluid in the pelvis. No free peritoneal air or evidence of abscess at this time. The findings were discussed with Dr. Jaime. Dictated by: Dictated on workstation # [id number]
[2017-01-13 04:58] LABS: MEAN PLATELET VOLUME 9.7 FL (7.4-10.4); RED BLOOD COUNT 4.07 10^6/uL (4.35-5.85); RED CELL DISTRIBUTION WIDTH 18.4 % (10.0-14.5); WHITE BLOOD COUNT 8.2 10^3/uL (4.3-11.0)
[2017-01-13 05:22] LABS: ALANINE AMINOTRANSFERASE 6 U/L (0-55); ANION GAP 7 MMOL/L (5-14); ASPARTATE AMINO TRANSFERASE 12 U/L (5-34); BILIRUBIN,TOTAL 0.3 MG/DL (0.1-1.0); BLOOD UREA NITROGEN 8 MG/DL (7-18); BUN/CREATININE RATIO 10; CALCIUM 8.1 MG/DL (8.5-10.1); CARBON DIOXIDE 25 MMOL/L (21-32); CHLORIDE 104 MMOL/L (98-107); GFR ESTIMATED > 60; GLUCOSE 78 MG/DL (70-105); SODIUM 136 MMOL/L (135-145)
[2017-01-13] MEDS: ASPIRIN E.C. 81 MG (ECOTRIN) TAB PO SCH (09:00)
[2017-01-13 10:30] VITALS: BP 122/79
--- NOTE | 2017-01-13 11:24 | Physical Therapy Daily Note ---
PT Daily Note-Current Subjective "I just dont know if I am up to this." "My stomach is cramping." ""Let's just take this one thing at a time; I feel like I could sleep for 6 days." Pain Numeric Pain Scale: 9 Comment: General, did not locate or describe Mental Status Patient Orientation: Person, Place, Time, Situation Transfers Functional [place] Measure 0=Not Assessed/NA 4=Minimal Assistance 1=Total Assistance 5=Supervision or Setup 2=Maximal Assistance 6=Modified [place] 3=Moderate Assistance 7=Complete IndependenceIRFPAI Quality Coding Scale 6 Independent with activity with or without an assistive device 5 Patient requires set up or clean up by helper. Patient completes activity by themselves 4 Supervision or touching assist (CGA). [place] provide cues , steadying assist 3 The helper provides less than half the effort to complete the activity 2 The helper provides more than half the effort to complete the activity 1 Dependent. The helper does all the effort to complete an activity 7 Patient refused to complete or attempt activity 9 The patient did not perform the activity before the current illness or injury 88 Not attempted due to Medical conditions or safety concerns Transfers (B, C, W/C) (FIM): 4 Roll Left to Right (QC): 4 Supine to/from Sit: 4 Sit to/from Stand: 4 In general, he requires min assist with functional transfers and occ cues for safety and sequencing. Gait Training Does the Patient Walk?: Yes Gait (FIM): 2 Distance (FIM): 1=up to 49 ft Distance: 10 ft Gait Assistive Device: FWW (B platforms) Treatments Co treat with OT due to need for 2 skilled clinicians. OT focusing on problem solving and positioning and PT addressing gross motor movements and functional transfers. Assessment Current Status: Fair Progress Pt returned to ARU this date after short stay in ICU due to medical issues yesterday. POC remains the same as do PT goals. Will benefit from continued therapy services to work on functional strength and mobility at a modified level. Limited functional activity tolerance and pt voices inability to complete large amounts of activity this date. PT Short Term Goals Short Term Goals Time Frame: Jan 04, 2017 Transfers (B,C,W/C) (FIM): 4 Gait (FIM): 2 Distance (FIM): 3=332-08 ft Gait Assistive Device: FWW Wheelchair Distance: 150' Stairs (FIM): 2 # of Steps: 4 PT Blasting Miner Goals Blasting Miner Goals PT Blasting Miner Goals Time Frame: January 18, 2017 Transfers (B,C,W/C) (FIM): 6 Sit to Lying (QC): 6 Lying-Sitting on Side/Bed(QC): 6 Sit to Stand (QC): 6 Rollin Roll Left to Right (QC): 6 Chair/[id number]-ib-[id number] Xfer(QC): 6 Car Transfer (QC): 5 Does the Patient Walk: Yes Gait (FIM): 5 Gait distance (FIM): 2=198-97 ft Walk 10 feet (QC): 5 Walk 10ft-Uneven Surface(QC): 5 Walk 50ft with 2 Turns (QC): 5 Walk 150 ft (QC): 88 Gait Assistive Device: FWW Does the Pt use WC or Scooter?: Yes Wheelchair (FIM): 6 Wheelchair distance (FIM): 3=150 ft Wheel 50 feet with 2 turns (QC: 6 Stairs (FIM): 2 # of Steps: 4 1 Step (curb) (QC): 5 4 Steps (QC): 5 12 Steps (QC): 88 Picking up an Object (QC): 88 PT Plan Problem List Problem List: Activity Tolerance, Functional Strength, Safety, Balance, Gait, Transfer, Bed Mobility Treatment/Plan Treatment Plan: Continue Plan of Care Treatment Plan: Bed Mobility, Education, Functional Activity Juli, Functional Strength, Group Therapy, Gait, Safety, Therapeutic Exercise, Transfers Treatment Duration: January 18, 2017 Visits Per Week: 10-15 Minutes/Day (M-F): 60-90 Minutes/Day (Sat/Ferrara): prn Safety Risks/Education Patient Education: Transfer Techniques, Safety Issues Teaching Recipient: Patient Teaching Methods: Demonstration, Discussion Response to Teaching: Return Demonstration, Reinforcement Needed Time/GCodes Time In: 1030 Time Out: 1110 Total Billed Treatment Time: 40 Total Billed Treatment visit FA 40 SOMMER PARRY PT Jan 13, 2017 11:24
--- NOTE | 2017-01-13 11:53 | Physical Therapy Daily Note ---
PT Daily Note-Current Subjective Pt. sitting up with head down, eyes closed states he "feels like sh--". Agrees to try standing and then get back in bed to rest a while. Mental Status Patient Orientation: Normal For Age Transfers Functional [place] Measure 0=Not Assessed/NA 4=Minimal Assistance 1=Total Assistance 5=Supervision or Setup 2=Maximal Assistance 6=Modified [place] 3=Moderate Assistance 7=Complete IndependenceIRFPAI Quality Coding Scale 6 Independent with activity with or without an assistive device 5 Patient requires set up or clean up by helper. Patient completes activity by themselves 4 Supervision or touching assist (CGA). [place] provide cues , steadying assist 3 The helper provides less than half the effort to complete the activity 2 The helper provides more than half the effort to complete the activity 1 Dependent. The helper does all the effort to complete an activity 7 Patient refused to complete or attempt activity 9 The patient did not perform the activity before the current illness or injury 88 Not attempted due to Medical conditions or safety concerns Transfers (B, C, W/C) (FIM): 4 Scootin Rollin Supine to/from Sit: 4 Sit to/from Stand: 4 Bed to/from Chair: 4 Gait Training Does the Patient Walk?: Yes Gait (FIM): 1 Distance (FIM): 1=up to 49 ft (8ft) Gait Level of Assist: 4 Gait Persons Needed: 1 Gait Assistive Device: Walker Platform slow, heavy wt bearing on UEs Assessment Current Status: Fair Progress limited tolerance PT Short Term Goals Short Term Goals Time Frame: Jan 04, 2017 Transfers (B,C,W/C) (FIM): 4 Gait (FIM): 2 Distance (FIM): 5=135-94 ft Gait Assistive Device: FWW Wheelchair Distance: 150' Stairs (FIM): 2 # of Steps: 4 PT Upscale Security Officer Goals Upscale Security Officer Goals PT Upscale Security Officer Goals Time Frame: January 18, 2017 Transfers (B,C,W/C) (FIM): 6 Sit to Lying (QC): 6 Lying-Sitting on Side/Bed(QC): 6 Sit to Stand (QC): 6 Rollin Roll Left to Right (QC): 6 Chair/Xij-ih-Xvlcr Xfer(QC): 6 Car Transfer (QC): 5 Does the Patient Walk: Yes Gait (FIM): 5 Gait distance (FIM): 9=253-27 ft Walk 10 feet (QC): 5 Walk 10ft-Uneven Surface(QC): 5 Walk 50ft with 2 Turns (QC): 5 Walk 150 ft (QC): 88 Gait Assistive Device: FWW Does the Pt use WC or Scooter?: Yes Wheelchair (FIM): 6 Wheelchair distance (FIM): 3=150 ft Wheel 50 feet with 2 turns (QC: 6 Stairs (FIM): 2 # of Steps: 4 1 Step (curb) (QC): 5 4 Steps (QC): 5 12 Steps (QC): 88 Picking up an Object (QC): 88 PT Plan Treatment/Plan Treatment Plan: Continue Plan of Care Treatment Plan: Bed Mobility, Education, Functional Activity Juli, Functional Strength, Group Therapy, Gait, Safety, Therapeutic Exercise, Transfers Treatment Duration: January 18, 2017 Visits Per Week: 10-15 Minutes/Day (M-F): 60-90 Minutes/Day (Sat/Ferrara): prn Safety Risks/Education Patient Education: Gait Training, Transfer Techniques Teaching Recipient: Patient Teaching Methods: Demonstration, Discussion Response to Teaching: Verbalize Understanding, Return Demonstration Time/GCodes Time In: 1130 Time Out: 1200 Total Billed Treatment Time: 30 Total Billed Treatment 1,FA30m G Codes Necessary: ANAHI Sampson DERMATOLOGY SPECIALIST Jan 13, 2017 11:53
[2017-01-13] MEDS ORDERED: morphine INJ 4 MG/ML 1 ML (VIAL/SYRINGE) IVP PRN (12:15)
[2017-01-13] MEDS: VANCOMYCIN ORAL 250 MG/5 ML 60 ML PO SCH ×12 (13:00→23:33)
--- NOTE | 2017-01-13 13:03 | PM & R (SOAP) Progress Note ---
Subjective Subjective/Events-last exam Patient was seen in his room this noonhour. Patient min assist for transfers Patient has returned to IRU after Interrupted stay for 24 hours in ICU for flare of colitis associated with persistent nausea and dehydration associated with Hypotension Now feeling better and therapies rewumed. Interval Medical records reviewed from 24 hour stay in ICU Review of Systems Neurological: Weakness Objective Exam Last Set of Vital Signs Vital Signs Date Time Temp Pulse Resp B/P (MAP) Pulse Ox O2 Delivery O2 Flow Rate FiO2 01/12/17 08:00 95 2.00 01/12/17 06:29 96.3 78 16 94/53 Room Air Capillary Refill : Less Than 3 Seconds I&O Intake and Output 01/13/17 00:00 Intake Total 200 ml Output Total 750 ml Balance -550 ml Intake Oral 200 ml Output Urine Total 550 ml Stool Total 200 ml General: Alert, Oriented X3, Cooperative, No Acute Distress HEENT: Atraumatic, PERRLA, EOMI, Mucous Memb Moist/[place] Neck: Supple, No JVD Lungs: Clear to Auscultation Heart: Regular Rate, Normal S1, Normal S2 Abdomen: Soft, No Tenderness, Other (Colostomy functioning and midline incision healing well No abdominal tenderness) Extremities: No Clubbing, No Cyanosis, No Edema Neuro: Normal Speech, Cranial Nerves 3-12 NL Psych/Mental Status: Mental Status NL Results Lab Laboratory Tests 01/11/17 08:41: Sodium Level 132L, Potassium Level 3.9, Chloride Level 97L, Carbon Dioxide Level 27, Anion Gap 8, Blood Urea Nitrogen 9, Creatinine 0.84, Estimat Glomerular Filtration Rate > 60, BUN/Creatinine Ratio 11, Glucose Level 122H, Calcium Level 8.0L, Total Bilirubin 0.2, Aspartate Amino Transf (AST/SGOT) 11, Alanine Aminotransferase (ALT/SGPT) < 6, Alkaline Phosphatase 66, Total Protein 4.9L, Albumin 2.0L 01/11/17 16:15: Urine Color YELLOW, Urine Clarity CLEAR, Urine pH 6.5, Urine Specific [place] 1.015L, Urine Protein 2+H, Urine Glucose (UA) NEGATIVE, Urine Ketones NEGATIVE, Urine Nitrite NEGATIVE, Urine Bilirubin NEGATIVE, Urine Urobilinogen NORMAL, Urine Leukocyte Esterase 1+H, Urine RBC (Auto) NEGATIVE, Urine RBC NONE, Urine WBC 2-5, Urine Squamous Epithelial Cells RARE, Urine Crystals NONE, Urine Bacteria TRACE, Urine Casts PRESENT, Urine Hyaline Casts 5-10H, Urine Mucus NEGATIVE, Urine Culture Indicated NO 01/12/17 12:25: Sodium Level 134L, Potassium Level 4.1, Chloride Level 100, Carbon Dioxide Level 28, Anion Gap 6, Blood Urea Nitrogen 9, Creatinine 0.86, Estimat Glomerular Filtration Rate > 60, BUN/Creatinine Ratio 10, Glucose Level 100, Calcium Level 7.8L, Total Bilirubin 0.2, Aspartate Amino Transf (AST/SGOT) 11, Alanine Aminotransferase (ALT/SGPT) 7, Alkaline Phosphatase 62, Total Protein 4.5L, Albumin 1.9L, White Blood Count 9.2, Red Blood Count 2.73L, Hemoglobin 7.6L, Hematocrit 25L, Mean Corpuscular Volume 91, Mean Corpuscular Hemoglobin 28 , Mean Corpuscular Hemoglobin Concent 31L, Red Cell Distribution Width 18.8H, Platelet Count 328, Mean Platelet Volume 9.2, Lactic Acid Level 2.02*H 01/12/17 14:45: Lactic Acid Level 0.94 01/13/17 04:15: White Blood Count 8.2, Red Blood Count 4.07L, Hemoglobin 11.5#L, Hematocrit 36L , Mean Corpuscular Volume 89, Mean Corpuscular Hemoglobin 28, Mean Corpuscular Hemoglobin Concent 32, Red Cell Distribution Width 18.4H, Platelet Count 382, Mean Platelet Volume 9.7, Sodium Level 136, Potassium Level 4.0, Chloride Level 104, Carbon Dioxide Level 25, Anion Gap 7, Blood Urea Nitrogen 8, Creatinine 0.80, Estimat Glomerular Filtration Rate > 60, BUN/Creatinine Ratio 10, Glucose Level 78, Calcium Level 8.1L, Total Bilirubin 0.3, Aspartate Amino Transf (AST/ SGOT) 12, Alanine Aminotransferase (ALT/SGPT) 6, Alkaline Phosphatase 69, Total Protein 5.0L, Albumin 2.0L Microbiology 01/05/17 C. 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 DR Jaime on iv antibiotics Copd Gerd HTN Hypokalemia-replaced Hypomagnesemia- on replacement Hypokalemia-IMPROVED DVT prophylaxis-on Lovenox Subcut postop anemia Abdominal wound draiange improved with suturing AM muscle cramps resolved spontaneously-Labs reviewed Plan Therapies rewumed Ongoing wound care and pain management Ostomy education for Patient and spouse Monitor labs and 02 sats and adjust meds as indicated.-remains on supplemental 02 Dr Jaime has seen re staple removal and suturing draining area improved Consult Engineering Teacher re supplement-done Team Conference held - see report for full functional update and POC and ELOS Appreciate Cardiology note. Repeat Chem and SL Zofran ordered F/U with Hospitalist and Cardiolgy and DR [facility] Discussed case with DR Morrissey yesterday NATALIYA KHANNA MD Jan 13, 2017 13:03
--- NOTE | 2017-01-13 13:04 | Progress Note ---
Subjective Subjective/Events-last exam Pt sitting up at group therapy session, looks comfortable, NAD. He states he feels ok. Pain is better. Denies nausea and vomiting. Feels a little stronger. Review of Systems General: No Chills, No Night Sweats Pulmonary: No Dyspnea, No Cough Cardiovascular: No: Chest Pain Gastrointestinal: No: Nausea, Vomiting Objective Exam Capillary Refill : Less Than 3 Seconds General Appearance: Chronically ill, Mild Distress, Thin HEENT: PERRL/EOMI, No Scleral Icterus (L), No Scleral Icterus (R) Neck: Supple Respiratory: Normal Breath Sounds, No Respiratory Distress Cardiovascular: Regular Rate, Rhythm, No Murmur Gastrointestinal: no organomegaly, guarding (appears softer than yesterday), tenderness (diffuse and minimal), other (ostomy is pink and functional, no drainage from midline. Abd is non-distended, in fact looks better/smaller than it has since he has been admitted) Extremity: No Calf Tenderness, No Pedal Edema Neurologic/Psychiatric: Alert, Oriented x3, Depressed Affect Skin: Warm/Dry Results Lab Laboratory Tests 01/12/17 14:45: Lactic Acid Level 0.94 01/13/17 04:15: White Blood Count 8.2, Red Blood Count 4.07L, Hemoglobin 11.5#L, Hematocrit 36L , Mean Corpuscular Volume 89, Mean Corpuscular Hemoglobin 28, Mean Corpuscular Hemoglobin Concent 32, Red Cell Distribution Width 18.4H, Platelet Count 382, Mean Platelet Volume 9.7, Sodium Level 136, Potassium Level 4.0, Chloride Level 104, Carbon Dioxide Level 25, Anion Gap 7, Blood Urea Nitrogen 8, Creatinine 0.80, Estimat Glomerular Filtration Rate > 60, BUN/Creatinine Ratio 10, Glucose Level 78, Calcium Level 8.1L, Total Bilirubin 0.3, Aspartate Amino Transf (AST/ SGOT) 12, Alanine Aminotransferase (ALT/SGPT) 6, Alkaline Phosphatase 69, Total Protein 5.0L, Albumin 2.0L Microbiology 01/05/17 C. difficile GDH Antigen & Toxins - Final, Complete Assessment/Plan Assessment/Plan Assessment/Plan 1. Colitis- new onset/relapse. restarted Vancomycin oral and ordered repeat C. Diff from stool. 2. Protein malnutrition- pt is simply not eating enough and therefore not getting stronger. Again requested nutrition consult with calorie count 3. Anemia - chronic. 11.5 today after receiving 2 units. 4. Hyponatremia - resolved Copd Gerd HTN Hypokalemia-resolved Hypomagnesemia- on replacement DVT prophylaxis-on Lovenox Subcut Hypotensive episode improved after blood transfusion and pt sent back to Rehab from ICU. Encouraging pt to participate in physical therapy. He needs to increase exercise, even twice a day is not enough. Nutrition may help give him more strength. May also have more strength now that he is not so anemic. Clinical Quality Measures DVT/VTE Risk/Contraindication: Risk Factor Score Per Nursin RFS Level Per Nursing on Admit: 4+=Very High NATALIYA BOSWELL DO Jan 13, 2017 13:04
--- NOTE | 2017-01-13 13:08 | Occupational Ther Daily Note ---
OT Current Status-Daily Note Subjective Pt in bed, states "I don't feel like doing anything." Pt does agree to sit up in chair to eat breakfast. Pt reports 9/10 pain, but does not describe. Mental Status/Objective Functional [place] Measure 0=Not Assessed/NA 4=Minimal Assistance 1=Total Assistance 5=Supervision or Setup 2=Maximal Assistance 6=Modified [place] 3=Moderate Assistance 7=Complete [place] ADL-Treatment Co-treat with PT this am. OT focusing on problem solving, positioning, and sequencing while PT focused on functional transfers and gross motor skills. Pt supine to sit with minimal assistance. Pt moves slowly and requires increased time for mobility. Total assist to don socks. Sit to stand with minimal assistance. Pt transferred to chair with minimal assistance and skilled cues using bilateral platform walker. Pt's meal tray arrived during session. Pt required assist to open packets and milk carton. Pt able to pour milk on oatmeal and stir coffee. Pt able to feed self after set up. Multiple rest breaks taken during task completion. Pt sitting in chair with needs met after session. Functional [place] Measure 0=Not Assessed/NA 4=Minimal Assistance 1=Total Assistance 5=Supervision or Setup 2=Maximal Assistance 6=Modified [place] 3=Moderate Assistance 7=Complete IndependenceIRFPAI Quality Coding Scale 6 Independent with activity with or without an assistive device 5 Patient requires set up or clean up by helper. Patient completes activity by themselves 4 Supervision or touching assist (CGA). [place] provide cues , steadying assist 3 The helper provides less than half the effort to complete the activity 2 The helper provides more than half the effort to complete the activity 1 Dependent. The helper does all the effort to complete an activity 7 Patient refused to complete or attempt activity 9 The patient did not perform the activity before the current illness or injury 88 Not attempted due to Medical conditions or safety concerns Eating (FIM): 5 Eating (QC): 5 OT Short Term Goals Short Term Goals Time Frame: Jan 04, 2017 Eating(FIM): 5 Grooming(FIM): 5 Bathing(FIM): 4 Upper Body Dressing(FIM): 4 Lower Body Dressing(FIM): 4 Toileting(FIM): 4 Transfers (B,C,W/C) (FIM): 4 Toilet/Commode Transfer(FIM): 5 Shower Transfer(FIM): 5 Additional Short Term Goals: 1-Demonstrate ADL Tasks, 2-Verbalize Understanding , 3-ImproveStrength/Juli 1=Demonstrate adherence to instructed precautions during ADL tasks. 2=Patient will verbalize/demonstrate understanding of assistive devices/ modifications for ADL. 3=Patient will improve strength/tolerance for activity to enable patient to perform ADL's. OT Edge Worker Goals Penit[facility]iary Goals Time Frame: January 18, 2017 Eating (FIM): 6 Eating (QC): 6 Groomin Oral Hygiene (QC): 6 Bathing(FIM): 5 Shower/Bathe Self (QC): 5 Upper Body Dressing(FIM): 6 Upper Body Dressing (QC): 6 Lower Body Dressing(FIM): 6 Lower Body Dressing (QC): 6 On/Off Footwear (QC): 6 Toileting(FIM): 6 Toileting Hygiene (QC): 6 Transfers (B,C,W/C) (FIM): 6 Toilet/Commode Transfer(FIM): 6 Toilet/Commode Transfer (QC): 6 Shower Transfer(FIM): 5 Additional Goals: 1-Demonstrate ADL Tasks, 2-Verbalize Understanding, 3- ImproveStrength/Juli 1=Demonstrate adherence to instructed precautions during ADL tasks. 2=Patient will verbalize/demonstrate understanding of assistive devices/ modifications for ADL. 3=Patient will improve strength/tolerance for activity to enable patient to perform ADL's. OT Education/Plan Problem List/Assessment Pt returned to ARU this morning following brief stay in ICU secondary to medical issues. Plan of care and LTG will remain the same. Pt to benefit from continued skilled OT intervention for ADL training, transfers, strengthening, and safety education to improve level of function and allow safe discharge plan. Discharge Recommendations Plan/Recommendations: Continue POC Treatment Plan/Plan of Care Patient would benefit from OT for education, treatment and training to promote independence in ADL's, mobility, safety and/or upper extremity function for ADL' s. Plan of Care: ADL Retraining, Caregiver Training, Functional Mobility, Group Exercise/Act as Ind, UE Funct Exercise/Act Treatment Duration: January 18, 2017 Visits Per Week: 10-12 Minutes/Day (M-F): 60-90 Minutes/Day (Sat/Ferrara): prn Agreement: Yes Rehab Potential: Guarded Time/GCodes Start Time: 10:35 Stop Time: 11:10 Total Time Billed (hr/min): 35 Billed Treatment Time 1 visit, FA(20minutes), ADL(15minutes) MELISSA AMBROSIO OT Jan 13, 2017 13:07
[2017-01-13] MEDS: morphine ER 30 MG (MS CONTIN) TAB PO SCH ×3 (13:47→21:44)
--- NOTE | 2017-01-13 13:55 | Occupational Ther Daily Note ---
OT Current Status-Daily Note Subjective Pt sitting in w/c after group therapy, requesting to return to bed. Pt reports pain, requests pain pill. RN notified. Mental Status/Objective Functional [place] Measure 0=Not Assessed/NA 4=Minimal Assistance 1=Total Assistance 5=Supervision or Setup 2=Maximal Assistance 6=Modified [place] 3=Moderate Assistance 7=Complete [place] ADL-Treatment Functional [place] Measure 0=Not Assessed/NA 4=Minimal Assistance 1=Total Assistance 5=Supervision or Setup 2=Maximal Assistance 6=Modified [place] 3=Moderate Assistance 7=Complete IndependenceIRFPAI Quality Coding Scale 6 Independent with activity with or without an assistive device 5 Patient requires set up or clean up by helper. Patient completes activity by themselves 4 Supervision or touching assist (CGA). [place] provide cues , steadying assist 3 The helper provides less than half the effort to complete the activity 2 The helper provides more than half the effort to complete the activity 1 Dependent. The helper does all the effort to complete an activity 7 Patient refused to complete or attempt activity 9 The patient did not perform the activity before the current illness or injury 88 Not attempted due to Medical conditions or safety concerns Other Treatment Pt sit to stand from w/c with minimal assistance. Pt transferred to EOB with minimal assistance and cues for safety. Pt sat EOB for rest break. Assist required to doff bilateral socks. Pt sit to supine with CGA. Pt able to reposition self in bed with SBA. Pt moves slowly and requires increased time for mobility tasks. Pt resting in bed with needs met after session. OT Short Term Goals Short Term Goals Time Frame: Jan 04, 2017 Eating(FIM): 5 Grooming(FIM): 5 Bathing(FIM): 4 Upper Body Dressing(FIM): 4 Lower Body Dressing(FIM): 4 Toileting(FIM): 4 Transfers (B,C,W/C) (FIM): 4 Toilet/Commode Transfer(FIM): 5 Shower Transfer(FIM): 5 Additional Short Term Goals: 1-Demonstrate ADL Tasks, 2-Verbalize Understanding , 3-ImproveStrength/Juli 1=Demonstrate adherence to instructed precautions during ADL tasks. 2=Patient will verbalize/demonstrate understanding of assistive devices/ modifications for ADL. 3=Patient will improve strength/tolerance for activity to enable patient to perform ADL's. OT Transitional Care Manager Goals Transitional Care Manager Goals Time Frame: January 18, 2017 Eating (FIM): 6 Eating (QC): 6 Groomin Oral Hygiene (QC): 6 Bathing(FIM): 5 Shower/Bathe Self (QC): 5 Upper Body Dressing(FIM): 6 Upper Body Dressing (QC): 6 Lower Body Dressing(FIM): 6 Lower Body Dressing (QC): 6 On/Off Footwear (QC): 6 Toileting(FIM): 6 Toileting Hygiene (QC): 6 Transfers (B,C,W/C) (FIM): 6 Toilet/Commode Transfer(FIM): 6 Toilet/Commode Transfer (QC): 6 Shower Transfer(FIM): 5 Additional Goals: 1-Demonstrate ADL Tasks, 2-Verbalize Understanding, 3- ImproveStrength/Juli 1=Demonstrate adherence to instructed precautions during ADL tasks. 2=Patient will verbalize/demonstrate understanding of assistive devices/ modifications for ADL. 3=Patient will improve strength/tolerance for activity to enable patient to perform ADL's. OT Education/Plan Discharge Recommendations Plan/Recommendations: Continue POC Treatment Plan/Plan of Care Patient would benefit from OT for education, treatment and training to promote independence in ADL's, mobility, safety and/or upper extremity function for ADL' s. Plan of Care: ADL Retraining, Caregiver Training, Functional Mobility, Group Exercise/Act as Ind, UE Funct Exercise/Act Treatment Duration: January 18, 2017 Visits Per Week: 10-12 Minutes/Day (M-F): 60-90 Minutes/Day (Sat/Ferrara): prn Agreement: Yes Rehab Potential: Guarded Time/GCodes Start Time: 13:30 Stop Time: 13:45 Total Time Billed (hr/min): 15 Billed Treatment Time 1 visit, FA(15minutes) MELISSA AMBROSIO OT Jan 13, 2017 13:55
--- NOTE | 2017-01-13 14:02 | Therapy Group Daily Note ---
Therapy Daily Group Note Patient Education Topic Home Safety Other/Notes Pt was an active participant in OT group. He introduced himself by sharing his rehab story with others. He contributed to group discussion /education on home safety and was able to identify ways that he has done or will do to be safer at home. He transferred CGA from bed to w/c to come to group and care was transferred to OT after group. Start Time: 12:30 Stop Time: 13:30 Total Billed Treatment Time: 60 Total Billed Treatment visit, 60 minutes group ERNESTINA BAUER OT Jan 13, 2017 14:02
[2017-01-13] MEDS ORDERED: RT-ALBUTEROL/IPRATROPIUM 3 ML (DUONEB) VIAL INH PRN (15:00)
[2017-01-13] MEDS: HYDROcodone/APAP 10 MG/325 MG (LORTAB) TAB PO PRN (16:57)
[2017-01-13 18:00] VITALS: BP 133/79
[2017-01-13] MEDS: ATORVASTATIN 40 MG (LIPITOR) TABLET PO SCH (21:45)
[2017-01-13] MEDS: CARVEDILOL 3.125 MG (COREG) TABLET PO SCH (21:45)
[2017-01-13] MEDS: ONDANSETRON 4 MG/2 ML (SDV) Z0FRAN IVP PRN (23:01)
[2017-01-14] MEDS: HYDROcodone/APAP 10 MG/325 MG (LORTAB) TAB PO PRN ×3 (04:04→23:36)
[2017-01-14 06:00] VITALS: BP 132/75
[2017-01-14] MEDS: LEVOTHYROXINE 75 MCG (LEVOTHROID) TABLET PO SCH (06:50)
[2017-01-14] MEDS: morphine ER 30 MG (MS CONTIN) TAB PO SCH ×3 (06:50→21:13)
[2017-01-14] MEDS: LEVOTHYROXINE 100 MCG (LEVOTHROID) TAB PO SCH (06:50)
[2017-01-14] MEDS: PANTOPRAZOLE 40 MG (PROTONIX) TAB PO SCH (06:50)
[2017-01-14] MEDS: KCL 10 MEQ TAB (MICRO K) PO SCH (06:52)
[2017-01-14] MEDS: VANCOMYCIN ORAL 250 MG/5 ML 60 ML PO SCH ×6 (06:52→17:20)
[2017-01-14] MEDS: CALCIUM CARBONATE 600 MG (CALCARB) TAB PO SCH (06:54)
[2017-01-14] MEDS: ONDANSETRON 4 MG/2 ML (SDV) Z0FRAN IVP PRN (06:54)
[2017-01-14] MEDS: ASPIRIN E.C. 81 MG (ECOTRIN) TAB PO SCH (08:29)
[2017-01-14] MEDS: FUROSEMIDE 20 MG (LASIX) TAB PO SCH (08:29)
[2017-01-14] MEDS: CARVEDILOL 3.125 MG (COREG) TABLET PO SCH ×2 (08:29→21:13)
--- NOTE | 2017-01-14 09:02 | Physical Therapy Daily Note ---
PT Daily Note-Current Subjective pt. states he feels better and he feels mostly b/c he slept well last night. Agrees to rx. Pain Numeric Pain Scale: 0-No Pain Mental Status Patient Orientation: Normal For Age Transfers Functional [place] Measure 0=Not Assessed/NA 4=Minimal Assistance 1=Total Assistance 5=Supervision or Setup 2=Maximal Assistance 6=Modified [place] 3=Moderate Assistance 7=Complete IndependenceIRFPAI Quality Coding Scale 6 Independent with activity with or without an assistive device 5 Patient requires set up or clean up by helper. Patient completes activity by themselves 4 Supervision or touching assist (CGA). [place] provide cues , steadying assist 3 The helper provides less than half the effort to complete the activity 2 The helper provides more than half the effort to complete the activity 1 Dependent. The helper does all the effort to complete an activity 7 Patient refused to complete or attempt activity 9 The patient did not perform the activity before the current illness or injury 88 Not attempted due to Medical conditions or safety concerns Transfers (B, C, W/C) (FIM): 4 Scootin Rollin Supine to/from Sit: 5 Sit to/from Stand: 4 Bed to/from Chair: 4 Gait Training Does the Patient Walk?: Yes Gait (FIM): 1 Distance (FIM): 1=up to 49 ft (12ft) Gait Level of Assist: 4 Gait Persons Needed: 1 Gait Assistive Device: Walker Platform 12 ft CGA with turns and then to chair , did very well Exercises Supine Ex: Ankle pumps, Rolling, Heel Slides, Straight leg raise, Hip abd/add Supine Reps: 10 Assessment Current Status: Good Progress doing well and progressing back to gait and better mobility with FWW with platf att PT Short Term Goals Short Term Goals Time Frame: Jan 04, 2017 Transfers (B,C,W/C) (FIM): 4 Gait (FIM): 2 Distance (FIM): 0=006-08 ft Gait Assistive Device: FWW Wheelchair Distance: 150' Stairs (FIM): 2 # of Steps: 4 PT Fpc Goals Fpc Goals PT Fpc Goals Time Frame: January 18, 2017 Transfers (B,C,W/C) (FIM): 6 Sit to Lying (QC): 6 Lying-Sitting on Side/Bed(QC): 6 Sit to Stand (QC): 6 Rollin Roll Left to Right (QC): 6 Chair/Wyz-bk-Hhdhq Xfer(QC): 6 Car Transfer (QC): 5 Does the Patient Walk: Yes Gait (FIM): 5 Gait distance (FIM): 0=547-26 ft Walk 10 feet (QC): 5 Walk 10ft-Uneven Surface(QC): 5 Walk 50ft with 2 Turns (QC): 5 Walk 150 ft (QC): 88 Gait Assistive Device: FWW Does the Pt use WC or Scooter?: Yes Wheelchair (FIM): 6 Wheelchair distance (FIM): 3=150 ft Wheel 50 feet with 2 turns (QC: 6 Stairs (FIM): 2 # of Steps: 4 1 Step (curb) (QC): 5 4 Steps (QC): 5 12 Steps (QC): 88 Picking up an Object (QC): 88 PT Plan Treatment/Plan Treatment Plan: Continue Plan of Care Treatment Plan: Bed Mobility, Education, Functional Activity Juli, Functional Strength, Group Therapy, Gait, Safety, Therapeutic Exercise, Transfers Treatment Duration: January 18, 2017 Visits Per Week: 10-15 Minutes/Day (M-F): 60-90 Minutes/Day (Sat/Ferrara): prn Safety Risks/Education Patient Education: Gait Training, Transfer Techniques Teaching Recipient: Patient Teaching Methods: Demonstration, Discussion Response to Teaching: Verbalize Understanding, Return Demonstration, Reinforcement Needed Time/GCodes Time In: 830 Time Out: 855 Total Billed Treatment Time: 25 Total Billed Treatment 1,FA25m G Codes Necessary: ANAHI Sampson NEEDLEMAKER Jan 14, 2017 09:02
--- NOTE | 2017-01-14 11:30 | Occupational Ther Daily Note ---
OT Current Status-Daily Note Subjective Pt. states that he has been up in chair, and just got back to bed with nursing assist, because he was feeling sick to his stomach. Appearance Pt. declines all out of bed activity, but does agree to work on bilateral UE strengthening in bed. Mental Status/Objective Patient Orientation: Person, Place Functional [place] Measure 0=Not Assessed/NA 4=Minimal Assistance 1=Total Assistance 5=Supervision or Setup 2=Maximal Assistance 6=Modified [place] 3=Moderate Assistance 7=Complete [place] ADL-Treatment Functional [place] Measure 0=Not Assessed/NA 4=Minimal Assistance 1=Total Assistance 5=Supervision or Setup 2=Maximal Assistance 6=Modified [place] 3=Moderate Assistance 7=Complete IndependenceIRFPAI Quality Coding Scale 6 Independent with activity with or without an assistive device 5 Patient requires set up or clean up by helper. Patient completes activity by themselves 4 Supervision or touching assist (CGA). [place] provide cues , steadying assist 3 The helper provides less than half the effort to complete the activity 2 The helper provides more than half the effort to complete the activity 1 Dependent. The helper does all the effort to complete an activity 7 Patient refused to complete or attempt activity 9 The patient did not perform the activity before the current illness or injury 88 Not attempted due to Medical conditions or safety concerns Pt. completed series of bilateral UE exercises to increase overall strength. Tolerated 20 bilateral hand squeezes with red sponge, and then 4 UE exercises x 10 reps each with 2 lb. dumbbell. Pt. does requires multiple rest breaks throughout treatment. Overall, tolerated activity. Pt. noted to feel better than previous to ICU transfer. States that he is feeling "much better." All needs met in room. Education OT Patient Education: Correct positioning, Exercise program, Progress toward Goal/Update tx plan, Purpose of tx/functional activities, Reviewed precautions, Rehab process Teaching Recipient: Patient Teaching Methods: Demonstration, Discussion Response to Teaching: Verbalize Understanding, Return Demonstration OT Short Term Goals Short Term Goals Time Frame: Jan 04, 2017 Eating(FIM): 5 Grooming(FIM): 5 Bathing(FIM): 4 Upper Body Dressing(FIM): 4 Lower Body Dressing(FIM): 4 Toileting(FIM): 4 Transfers (B,C,W/C) (FIM): 4 Toilet/Commode Transfer(FIM): 5 Shower Transfer(FIM): 5 Additional Short Term Goals: 1-Demonstrate ADL Tasks, 2-Verbalize Understanding , 3-ImproveStrength/Juli 1=Demonstrate adherence to instructed precautions during ADL tasks. 2=Patient will verbalize/demonstrate understanding of assistive devices/ modifications for ADL. 3=Patient will improve strength/tolerance for activity to enable patient to perform ADL's. OT [place] Burner Operator Goals [place] Burner Operator Goals Time Frame: January 18, 2017 Eating (FIM): 6 Eating (QC): 6 Groomin Oral Hygiene (QC): 6 Bathing(FIM): 5 Shower/Bathe Self (QC): 5 Upper Body Dressing(FIM): 6 Upper Body Dressing (QC): 6 Lower Body Dressing(FIM): 6 Lower Body Dressing (QC): 6 On/Off Footwear (QC): 6 Toileting(FIM): 6 Toileting Hygiene (QC): 6 Transfers (B,C,W/C) (FIM): 6 Toilet/Commode Transfer(FIM): 6 Toilet/Commode Transfer (QC): 6 Shower Transfer(FIM): 5 Additional Goals: 1-Demonstrate ADL Tasks, 2-Verbalize Understanding, 3- ImproveStrength/Juli 1=Demonstrate adherence to instructed precautions during ADL tasks. 2=Patient will verbalize/demonstrate understanding of assistive devices/ modifications for ADL. 3=Patient will improve strength/tolerance for activity to enable patient to perform ADL's. OT Education/Plan Problem List/Assessment Assessment: Decreased Activ Tolerance, Decreased UE Strength, Dependent Transfers, Impaired Bed Mobility, Impaired Funct Balance, Impaired I ADL's, Impaired Self-Care Skills Discharge Recommendations Plan/Recommendations: Continue POC Therapy D/C Recommendations: Home w/ Family Support, Occupational Therapy Home Care, Scheduled Assistance Treatment Plan/Plan of Care Treatment,Training & Education: Yes Patient would benefit from OT for education, treatment and training to promote independence in ADL's, mobility, safety and/or upper extremity function for ADL' s. Plan of Care: ADL Retraining, Caregiver Training, Functional Mobility, Group Exercise/Act as Ind, UE Funct Exercise/Act Treatment Duration: January 18, 2017 Visits Per Week: 10-12 Minutes/Day (M-F): 60-90 Minutes/Day (Sat/Ferrara): prn Agreement: Yes Rehab Potential: Fair Time/GCodes Start Time: 11:00 Stop Time: 11:30 Total Time Billed (hr/min): 30 Billed Treatment Time 1, EX x 2 JENNI OSBORN OT Jan 14, 2017 11:30
--- NOTE | 2017-01-14 12:39 | Cardiology Progress Note ---
Subjective Subjective/Events-last exam patient is laying down in bed, feeling better, denied any active pain. Breathing is better, appetite is better. Review of Systems General: No Chills, No Night Sweats, No Fatigue, No Malaise, No Appetite, No Other HEENT: No Head Aches, No Visual Changes, No Eye Pain, No Ear Pain, No Dysphasia , No Sinus Congestion, No Post Nasal Drip, No Sore Throat, No Other Pulmonary: No Dyspnea, No Cough, No Pleuritic Chest Pain, No Other Cardiovascular: No: Chest Pain, Edema, Lt Headedness, Orthopnea, Other, Palpitations, Paroxysmal Noc. Dyspnea Objective-Cardiology Exam Last Set of Vital Signs Vital Signs 01/12/17 01/14/17 08:00 06:00 Temp 97.9 Pulse 72 Resp 18 B/P (MAP) 132/75 Pulse Ox 96 O2 Delivery Room Air O2 Flow Rate 2.00 Capillary Refill : Less Than 3 Seconds I&O Intake and Output 01/14/17 00:00 Intake Total 750 ml Output Total 500 ml Balance 250 ml Intake Oral 750 ml Output Urine Total 400 ml Stool Total 100 ml General: Alert, Oriented X3, Cooperative, No Acute Distress HEENT: Atraumatic, PERRLA, EOMI, Mucous Memb Moist/[place] Neck: Supple, No JVD Lungs: Clear to Auscultation Heart: Regular Rate, Normal S1, Normal S2 Abdomen: Normal Bowel Sounds, Soft, No Tenderness, Other (Colostomy functioning and midline incision healing well No abdominal tenderness) Extremities: No Clubbing, No Cyanosis, No Edema Skin: No Rashes Neuro: Normal Speech, Cranial Nerves 3-12 NL Psych/Mental Status: Mental Status NL A/P-Cardiology Admission Diagnosis C. difficile colitis Sepsis CHF PVD Assessment/Plan C. difficile colitis, status post extended left hemicolectomy with Pam procedure, doing much better today, Followed by Dr Jaime Hypotension, blood pressure is better at this time. Continue to monitor, continue current medications Peripheral edema, better, continue to monitor Congestive heart failure, nonischemic cardiomyopathy, acute on chronic left ventricular systolic dysfunction with most recent ejection fraction improved to 50 percent. Maintained on beta gurpreet and Entresto. Patient is hypotensive, I will discontinue Entresto at this time. Start low dose ARB tomorrow if BP allows. Continue to monitor. Status post acute renal failure. Improved, monitor renal function closely Anemia- continue to monitor H/H closely Peripheral vascular disease with history of nonhealing wounds bilaterally. Peripheral angiogram done 12/04/16 revealed moderate atherosclerotic disease on the left lower extremity, the anterior tibial artery is severely diseased on the left lower extremity but the ulcer on the left lower extremity has healed. Medical therapy is recommended. Moderate disease of the right lower extremity with good flow, with three-vessel flow down to the foot. Continue medical management at this time and continue to monitor. Small infrarenal abdominal aortic aneurysm noted during peripheral angiogram. Continue to monitor Hyperlipidemia, continue to hold statin. Hyperthyroidism, history of hypothyroidism, managed by primary care physician History of pulmonary hypertension, continue to monitor History of rheumatoid arthritis. COPD, managed and followed by primary care physician Tobaccoism, patient has stopped smoking after the last admission. Encouraged to continue with smoking cessation History of chronic narcotic use, urine drug screen is positive for opioids Status post anoxic encephalopathy and pneumonia and sepsis early in October, improved with aggressive therapy. Back to his baseline. Continue to monitor. Clinical Quality Measures DVT/VTE Risk/Contraindication: Risk Factor Score Per Nursin RFS Level Per Nursing on Admit: 4+=Very High TORY HALL MD Jan 14, 2017 12:39
[2017-01-14 18:05] VITALS: BP 119/74
[2017-01-14] MEDS: ATORVASTATIN 40 MG (LIPITOR) TABLET PO SCH (21:13)
[2017-01-15] MEDS: VANCOMYCIN ORAL 250 MG/5 ML 60 ML PO SCH ×10 (00:08→23:38)
[2017-01-15 06:00] VITALS: BP 139/74
[2017-01-15] MEDS: CALCIUM CARBONATE 600 MG (CALCARB) TAB PO SCH (06:25)
[2017-01-15] MEDS: PANTOPRAZOLE 40 MG (PROTONIX) TAB PO SCH (06:25)
[2017-01-15] MEDS: LEVOTHYROXINE 100 MCG (LEVOTHROID) TAB PO SCH (06:25)
[2017-01-15] MEDS: KCL 10 MEQ TAB (MICRO K) PO SCH (06:25)
[2017-01-15] MEDS: LEVOTHYROXINE 75 MCG (LEVOTHROID) TABLET PO SCH (06:25)
[2017-01-15] MEDS: morphine ER 30 MG (MS CONTIN) TAB PO SCH ×3 (06:25→23:06)
[2017-01-15] MEDS: ASPIRIN E.C. 81 MG (ECOTRIN) TAB PO SCH (09:09)
[2017-01-15] MEDS: FUROSEMIDE 20 MG (LASIX) TAB PO SCH (09:09)
[2017-01-15] MEDS: CARVEDILOL 3.125 MG (COREG) TABLET PO SCH ×2 (09:09→20:12)
[2017-01-15] MEDS: HYDROcodone/APAP 10 MG/325 MG (LORTAB) TAB PO PRN ×2 (09:10→23:37)
--- NOTE | 2017-01-15 09:47 | Cardiology Progress Note ---
Subjective Subjective/Events-last exam Patient is in bed, feeling better, no abdominal pain or chest pain Review of Systems General: No Chills, No Night Sweats, No Fatigue, No Malaise, No Appetite, No Other HEENT: No Head Aches, No Visual Changes, No Eye Pain, No Ear Pain, No Dysphasia , No Sinus Congestion, No Post Nasal Drip, No Sore Throat, No Other Pulmonary: No Dyspnea, No Cough, No Pleuritic Chest Pain, No Other Cardiovascular: No: Chest Pain, Edema, Lt Headedness, Orthopnea, Other, Palpitations, Paroxysmal Noc. Dyspnea Objective-Cardiology Exam Last Set of Vital Signs Vital Signs 01/12/17 01/15/17 08:00 06:00 Temp 96.2 Pulse 75 Resp 18 B/P (MAP) 139/74 Pulse Ox 93 O2 Delivery Room Air O2 Flow Rate 2.00 Capillary Refill : Less Than 3 Seconds I&O Intake and Output 01/15/17 00:00 Intake Total 1270 ml Output Total 1350 ml Balance -80 ml Intake Oral 1270 ml Output Urine Total 1100 ml Stool Total 250 ml General: Alert, Oriented X3, Cooperative, No Acute Distress HEENT: Atraumatic, PERRLA, EOMI, Mucous Memb Moist/[place] Neck: Supple, No JVD Lungs: Clear to Auscultation Heart: Regular Rate, Normal S1, Normal S2 Abdomen: Normal Bowel Sounds, Soft, No Tenderness, Other (Colostomy functioning and midline incision healing well No abdominal tenderness) Extremities: No Clubbing, No Cyanosis, No Edema Skin: No Rashes Neuro: Normal Speech, Cranial Nerves 3-12 NL Psych/Mental Status: Mental Status NL A/P-Cardiology Admission Diagnosis C. difficile colitis Sepsis CHF PVD Assessment/Plan C. difficile colitis, status post extended left hemicolectomy with Pam procedure, doing much better today, Followed by Dr Jaime Hypotension, blood pressure is better at this time. Continue to monitor, continue current medications Peripheral edema, better, continue to monitor Congestive heart failure, nonischemic cardiomyopathy, acute on chronic left ventricular systolic dysfunction with most recent ejection fraction improved to 50 percent. tolerating meds well, continue to monitor Status post acute renal failure. Improved, monitor renal function closely Anemia- continue to monitor H/H closely Peripheral vascular disease with history of nonhealing wounds bilaterally. Peripheral angiogram done 12/04/16 revealed moderate atherosclerotic disease on the left lower extremity, the anterior tibial artery is severely diseased on the left lower extremity but the ulcer on the left lower extremity has healed. Medical therapy is recommended. Moderate disease of the right lower extremity with good flow, with three-vessel flow down to the foot. Continue medical management at this time and continue to monitor. Small infrarenal abdominal aortic aneurysm noted during peripheral angiogram. Continue to monitor Hyperlipidemia, continue to hold statin. Hyperthyroidism, history of hypothyroidism, managed by primary care physician History of pulmonary hypertension, continue to monitor History of rheumatoid arthritis. COPD, managed and followed by primary care physician Tobaccoism, patient has stopped smoking after the last admission. Encouraged to continue with smoking cessation History of chronic narcotic use, urine drug screen is positive for opioids Status post anoxic encephalopathy and pneumonia and sepsis early in October, improved with aggressive therapy. Back to his baseline. Continue to monitor. Clinical Quality Measures DVT/VTE Risk/Contraindication: Risk Factor Score Per Nursin RFS Level Per Nursing on Admit: 4+=Very High TORY HALL MD Jan 15, 2017 09:47
[2017-01-15 18:09] VITALS: BP 135/78
[2017-01-15] MEDS: ATORVASTATIN 40 MG (LIPITOR) TABLET PO SCH (20:12)
[2017-01-16 05:35] VITALS: BP 136/70
[2017-01-16] MEDS: PANTOPRAZOLE 40 MG (PROTONIX) TAB PO SCH (06:07)
[2017-01-16] MEDS: morphine ER 30 MG (MS CONTIN) TAB PO SCH ×3 (06:07→21:00)
[2017-01-16] MEDS: LEVOTHYROXINE 100 MCG (LEVOTHROID) TAB PO SCH (06:07)
[2017-01-16] MEDS: LEVOTHYROXINE 75 MCG (LEVOTHROID) TABLET PO SCH (06:07)
[2017-01-16] MEDS: CALCIUM CARBONATE 600 MG (CALCARB) TAB PO SCH (06:08)
[2017-01-16] MEDS: KCL 10 MEQ TAB (MICRO K) PO SCH (06:08)
[2017-01-16] MEDS: VANCOMYCIN ORAL 250 MG/5 ML 60 ML PO SCH ×6 (06:09→17:58)
[2017-01-16] MEDS: FUROSEMIDE 20 MG (LASIX) TAB PO SCH (08:00)
[2017-01-16] MEDS: ASPIRIN E.C. 81 MG (ECOTRIN) TAB PO SCH (08:00)
[2017-01-16] MEDS: CARVEDILOL 3.125 MG (COREG) TABLET PO SCH ×2 (08:00→21:00)
--- NOTE | 2017-01-16 08:32 | Cardiology Progress Note ---
Subjective Subjective/Events-last exam No new complaint, denies any CP or dyspnea. Review of Systems General: No Night Sweats, No Fatigue, No Malaise HEENT: No Visual Changes, No Dysphasia, No Sore Throat Pulmonary: No Dyspnea, No Cough Cardiovascular: No: Chest Pain, Orthopnea, Palpitations Gastrointestinal: No: Abdominal Pain, Nausea, Vomiting Genitourinary: No Dysuria, No Frequency Musculoskeletal: No: back pain, neck pain Neurological: Weakness, No: Change in speech, Confusion, Numbness Objective-Cardiology Exam Last Set of Vital Signs Vital Signs 01/12/17 01/15/17 01/16/17 08:00 06:00 05:35 Temp 96.2 Pulse 74 Resp 18 B/P (MAP) 136/70 Pulse Ox 93 O2 Delivery Room Air O2 Flow Rate 2.00 Capillary Refill : Less Than 3 Seconds I&O Intake and Output 01/16/17 00:00 Intake Total 1080 ml Output Total 1450 ml Balance -370 ml Intake Oral 1080 ml Output Urine Total 1150 ml Stool Total 300 ml General: Alert, Oriented X3, Cooperative, No Acute Distress HEENT: Atraumatic, PERRLA, EOMI, Mucous Memb Moist/[place] Neck: Supple, No JVD Lungs: Clear to Auscultation Heart: Regular Rate, Normal S1, Normal S2 Abdomen: Normal Bowel Sounds, Soft, No Tenderness, Other (Colostomy functioning and midline incision healing well No abdominal tenderness) Extremities: No Clubbing, No Cyanosis, No Edema Skin: No Rashes Neuro: Normal Speech, Cranial Nerves 3-12 NL Psych/Mental Status: Mental Status NL A/P-Cardiology Admission Diagnosis C. difficile colitis Sepsis CHF PVD Assessment/Plan C. difficile colitis, status post extended left hemicolectomy with Pam procedure, doing much better today, Followed by Dr Jaime Hypotension, blood pressure is better at this time. Continue to monitor, continue current medications Peripheral edema, better, continue to monitor Congestive heart failure, nonischemic cardiomyopathy, acute on chronic left ventricular systolic dysfunction with most recent ejection fraction improved to 50 percent. tolerating meds well, continue to monitor Status post acute renal failure. Improved, monitor renal function closely Anemia- continue to monitor H/H closely Peripheral vascular disease with history of nonhealing wounds bilaterally. Peripheral angiogram done 12/04/16 revealed moderate atherosclerotic disease on the left lower extremity, the anterior tibial artery is severely diseased on the left lower extremity but the ulcer on the left lower extremity has healed. Medical therapy is recommended. Moderate disease of the right lower extremity with good flow, with three-vessel flow down to the foot. Continue medical management at this time and continue to monitor. Small infrarenal abdominal aortic aneurysm noted during peripheral angiogram. Continue to monitor Hyperlipidemia, continue to hold statin. Hyperthyroidism, history of hypothyroidism, managed by primary care physician History of pulmonary hypertension, continue to monitor History of rheumatoid arthritis. COPD, managed and followed by primary care physician Tobaccoism, patient has stopped smoking after the last admission. Encouraged to continue with smoking cessation History of chronic narcotic use, urine drug screen is positive for opioids Status post anoxic encephalopathy and pneumonia and sepsis early in October, improved with aggressive therapy. Back to his baseline. Continue to monitor. Clinical Quality Measures DVT/VTE Risk/Contraindication: Risk Factor Score Per Nursin RFS Level Per Nursing on Admit: 4+=Very High FATUMA GARCES January 16, 2017 08:32
--- NOTE | 2017-01-16 09:56 | Physical Therapy Daily Note ---
PT Daily Note-Current Subjective Pt. feels a little better. Agrees to Rx. OK to sit up in the chair after Rx. Pain Numeric Pain Scale: 3 Location: Right Location Body Site: Neck Pain Description: Ache Mental Status Patient Orientation: Normal For Age Attachments: Colostomy/Ileostomy, Other-See Comments Transfers Functional [place] Measure 0=Not Assessed/NA 4=Minimal Assistance 1=Total Assistance 5=Supervision or Setup 2=Maximal Assistance 6=Modified [place] 3=Moderate Assistance 7=Complete IndependenceIRFPAI Quality Coding Scale 6 Independent with activity with or without an assistive device 5 Patient requires set up or clean up by helper. Patient completes activity by themselves 4 Supervision or touching assist (CGA). [place] provide cues , steadying assist 3 The helper provides less than half the effort to complete the activity 2 The helper provides more than half the effort to complete the activity 1 Dependent. The helper does all the effort to complete an activity 7 Patient refused to complete or attempt activity 9 The patient did not perform the activity before the current illness or injury 88 Not attempted due to Medical conditions or safety concerns Transfers (B, C, W/C) (FIM): 4 Scootin Rollin Supine to/from Sit: 5 Sit to/from Stand: 4 Bed to/from Chair: 4 lower surfaces required min assist Gait Training Does the Patient Walk?: Yes Gait (FIM): 2 Distance (FIM): 5=002-25 ft (80ftx3) Gait Level of Assist: 4 Gait Persons Needed: 1 Gait Assistive Device: Walker Platform slow, heavy weight bearing onto UEs Exercises Supine Ex: Bridging, Ankle pumps, Quad Set, Rolling, Glut sets, Heel Slides, Short Arc Quads, Scooting, Straight leg raise, Hip abd/add Supine Reps: 15 Treatments used the urinal indep, massage to bilat upper traps for neck discomfort Assessment Current Status: Good Progress increased funct mob PT Short Term Goals Short Term Goals Time Frame: Jan 04, 2017 Transfers (B,C,W/C) (FIM): 4 Gait (FIM): 2 Distance (FIM): 9=055-12 ft Gait Assistive Device: FWW Wheelchair Distance: 150' Stairs (FIM): 2 # of Steps: 4 PT Pile Trimmer Goals Pile Trimmer Goals PT Longterm Goals Time Frame: January 18, 2017 Transfers (B,C,W/C) (FIM): 6 Sit to Lying (QC): 6 Lying-Sitting on Side/Bed(QC): 6 Sit to Stand (QC): 6 Rollin Roll Left to Right (QC): 6 Chair/[id number] Xfer(QC): 6 Car Transfer (QC): 5 Does the Patient Walk: Yes Gait (FIM): 5 Gait distance (FIM): 2=412-67 ft Walk 10 feet (QC): 5 Walk 10ft-Uneven Surface(QC): 5 Walk 50ft with 2 Turns (QC): 5 Walk 150 ft (QC): 88 Gait Assistive Device: FWW Does the Pt use WC or Scooter?: Yes Wheelchair (FIM): 6 Wheelchair distance (FIM): 3=150 ft Wheel 50 feet with 2 turns (QC: 6 Stairs (FIM): 2 # of Steps: 4 1 Step (curb) (QC): 5 4 Steps (QC): 5 12 Steps (QC): 88 Picking up an Object (QC): 88 PT Plan Treatment/Plan Treatment Plan: Continue Plan of Care Treatment Plan: Bed Mobility, Education, Functional Activity Juli, Functional Strength, Group Therapy, Gait, Safety, Therapeutic Exercise, Transfers Treatment Duration: January 18, 2017 Visits Per Week: 10-15 Minutes/Day (M-F): 60-90 Minutes/Day (Sat/Ferrara): prn Safety Risks/Education Patient Education: Gait Training, Transfer Techniques, Correct Positioning, Safety Issues Teaching Recipient: Patient Teaching Methods: Demonstration, Discussion Response to Teaching: Verbalize Understanding, Return Demonstration, Reinforcement Needed Time/GCodes Time In: 900 Time Out: 1000 Total Billed Treatment Time: 60 Total Billed Treatment 1,GT30m,EX30m G Codes Necessary: ANAHI Sampson WATCH CRYSTAL CUTTER January 16, 2017 09:56
[2017-01-16] MEDS: HYDROcodone/APAP 10 MG/325 MG (LORTAB) TAB PO PRN (10:10)
--- NOTE | 2017-01-16 11:51 | Occupational Ther Daily Note ---
OT Current Status-Daily Note Subjective Pt. starts to report feeling nauseated when he is in the shower. Pt. has just had pain medication. Appearance Pt. is up in chair. Agrees to shower. Mental Status/Objective Patient Orientation: Person, Place Functional [place] Measure 0=Not Assessed/NA 4=Minimal Assistance 1=Total Assistance 5=Supervision or Setup 2=Maximal Assistance 6=Modified [place] 3=Moderate Assistance 7=Complete [place] ADL-Treatment Functional [place] Measure 0=Not Assessed/NA 4=Minimal Assistance 1=Total Assistance 5=Supervision or Setup 2=Maximal Assistance 6=Modified [place] 3=Moderate Assistance 7=Complete IndependenceIRFPAI Quality Coding Scale 6 Independent with activity with or without an assistive device 5 Patient requires set up or clean up by helper. Patient completes activity by themselves 4 Supervision or touching assist (CGA). [place] provide cues , steadying assist 3 The helper provides less than half the effort to complete the activity 2 The helper provides more than half the effort to complete the activity 1 Dependent. The helper does all the effort to complete an activity 7 Patient refused to complete or attempt activity 9 The patient did not perform the activity before the current illness or injury 88 Not attempted due to Medical conditions or safety concerns Eating (FIM): 5 (set up) Eating (QC): 5 Grooming (FIM): 4 (Pt. is able to brush hair somewhat, but can't fully get hands onto top of head.) Oral Hygiene (QC): 7 Bathing (FIM): 3 (Pt. required assistance to bathe bilateral feet and rear shailesh area.) Shower/Bathe Self (QC): 3 Upper Body Dressing (QC): 7 Lower Body Dressing (FIM): 2 (Pt. requires max assist to doff/don shoes. Declines pants.) Lower Body Dressing (QC): 2 On/Off Footwear (QC): 2 Toileting (FIM): 3 (Pt. is able to manage urinal, but unable to empty colostomy bag.) Toileting Hygiene (QC): 3 Transfers (B, C, W/C) (FIM): 4 (Min assist for supine-sit.) Shower Transfer(FIM): 4 Other Treatment Pt. agrees to shower. Once in there, starts to report nausea. Nursing aware. Pt. requires increased time for tasks. States that his spouse will assist him at home. Pt. completed bilateral UE strengthening tasks with 2 lb. dumbbell x 15 reps x 3 exercises. Pt. then tolerated 20 bilateral hand squeezes to increase overall strength. Tolerated treatment well. Education OT Patient Education: Correct positioning, Exercise program, Modified ADL techniques, Progress toward Goal/Update tx plan, Purpose of tx/functional activities, Reviewed precautions, Rehab process, Transfer techniques Teaching Recipient: Patient Teaching Methods: Demonstration, Discussion Response to Teaching: Verbalize Understanding, Return Demonstration OT Short Term Goals Short Term Goals Time Frame: Jan 04, 2017 Eating(FIM): 5 Grooming(FIM): 5 Bathing(FIM): 4 Upper Body Dressing(FIM): 4 Lower Body Dressing(FIM): 4 Toileting(FIM): 4 Transfers (B,C,W/C) (FIM): 4 Toilet/Commode Transfer(FIM): 5 Shower Transfer(FIM): 5 Additional Short Term Goals: 1-Demonstrate ADL Tasks, 2-Verbalize Understanding , 3-ImproveStrength/Juli 1=Demonstrate adherence to instructed precautions during ADL tasks. 2=Patient will verbalize/demonstrate understanding of assistive devices/ modifications for ADL. 3=Patient will improve strength/tolerance for activity to enable patient to perform ADL's. OT Manager Of Finance Goals Manager Of Finance Goals Time Frame: January 18, 2017 Eating (FIM): 6 Eating (QC): 6 Groomin Oral Hygiene (QC): 6 Bathing(FIM): 5 Shower/Bathe Self (QC): 5 Upper Body Dressing(FIM): 6 Upper Body Dressing (QC): 6 Lower Body Dressing(FIM): 6 Lower Body Dressing (QC): 6 On/Off Footwear (QC): 6 Toileting(FIM): 6 Toileting Hygiene (QC): 6 Transfers (B,C,W/C) (FIM): 6 Toilet/Commode Transfer(FIM): 6 Toilet/Commode Transfer (QC): 6 Shower Transfer(FIM): 5 Additional Goals: 1-Demonstrate ADL Tasks, 2-Verbalize Understanding, 3- ImproveStrength/Juli 1=Demonstrate adherence to instructed precautions during ADL tasks. 2=Patient will verbalize/demonstrate understanding of assistive devices/ modifications for ADL. 3=Patient will improve strength/tolerance for activity to enable patient to perform ADL's. OT Education/Plan Problem List/Assessment Assessment: Decreased Activ Tolerance, Decreased UE Strength, Dependent Transfers, Impaired Bed Mobility, Impaired Coordination, Impaired Funct Balance , Impaired I ADL's, Impaired Self-Care Skills, Restricted Funct UE ROM Discharge Recommendations Plan/Recommendations: Continue POC Therapy D/C Recommendations: Home w/ Family Support, Occupational Therapy Home Care Comment Pt. needs a walker. Treatment Plan/Plan of Care Treatment,Training & Education: Yes Patient would benefit from OT for education, treatment and training to promote independence in ADL's, mobility, safety and/or upper extremity function for ADL' s. Plan of Care: ADL Retraining, Caregiver Training, Functional Mobility, Group Exercise/Act as Ind, UE Funct Exercise/Act Treatment Duration: January 18, 2017 Visits Per Week: 10-12 Minutes/Day (M-F): 60-90 Minutes/Day (Sat/Ferrara): prn Agreement: Yes Rehab Potential: Fair Time/GCodes Start Time: 10:00 Stop Time: 11:30 Total Time Billed (hr/min): 90 Billed Treatment Time 1, ADL x 75minutes, EX x 15minutes JENNI OSBORN OT January 16, 2017 11:51
--- NOTE | 2017-01-16 13:38 | Physical Therapy Daily Note ---
PT Daily Note-Current Subjective Patient is in bed and agrees to PT. No c/o at this time. Pain Numeric Pain Scale: 0-No Pain Location: No Pain Reported Mental Status Patient Orientation: Normal For Age Transfers Functional [place] Measure 0=Not Assessed/NA 4=Minimal Assistance 1=Total Assistance 5=Supervision or Setup 2=Maximal Assistance 6=Modified [place] 3=Moderate Assistance 7=Complete IndependenceIRFPAI Quality Coding Scale 6 Independent with activity with or without an assistive device 5 Patient requires set up or clean up by helper. Patient completes activity by themselves 4 Supervision or touching assist (CGA). [place] provide cues , steadying assist 3 The helper provides less than half the effort to complete the activity 2 The helper provides more than half the effort to complete the activity 1 Dependent. The helper does all the effort to complete an activity 7 Patient refused to complete or attempt activity 9 The patient did not perform the activity before the current illness or injury 88 Not attempted due to Medical conditions or safety concerns Transfers (B, C, W/C) (FIM): 6 Scootin Rollin Roll Left to Right (QC): 6 Supine to/from Sit: 6 Sit to/from Stand: 6 Sit to Lying (QC): 6 Sit to Stand (QC): 6 Chair/Cst-ga-Watsz Xfer(QC): 6 Bed to/from Chair: 6 Gait Training Does the Patient Walk?: Yes Gait (FIM): 6 Distance (FIM): 3=150 ft Distance: 150' x 2 Walk 10 feet (QC): 5 Walk 50 ft with 2 Turns(QC): 5 Walk 150 ft (QC): 5 Gait Level of Assist: 6 Gait Assistive Device: Walker Platform bilateral platform FWW with step to gait sequence Stair Training Stair Training: Handrails/: 1 handrail, uses cane Stairs (FIM): 2 #of Steps: 4 1 Step (curb) (QC): 5 4 Steps (QC): 5 12 Steps (QC): 9 Stairs: Pattern: Step to Level of Assist: 5 Balance Picking up an Object (QC): 9 Assessment Patient is much improved with gross motor skills. Patient demonstrates good knowledge and ability with ambulation with bilateral platform FWW and with step negotiation with step to pattern. Plan dismissal tomorrow to home with spouse and home health intervention. PT Short Term Goals Short Term Goals Time Frame: Jan 04, 2017 Transfers (B,C,W/C) (FIM): 4 Gait (FIM): 2 Distance (FIM): 8=654-01 ft Gait Assistive Device: FWW Wheelchair Distance: 150' Stairs (FIM): 2 # of Steps: 4 PT American Sign Language Teacher Goals American Sign Language Teacher Goals PT Shelter Goals Time Frame: January 18, 2017 Transfers (B,C,W/C) (FIM): 6 (met 01/16/17) Sit to Lying (QC): 6 (met 01/16/17) Lying-Sitting on Side/Bed(QC): 6 (met 01/16/17) Sit to Stand (QC): 6 (met 01/16/17) Rollin (met 01/16/17) Roll Left to Right (QC): 6 (met 01/16/17) Chair/Sbq-dn-Xsjdt Xfer(QC): 6 Car Transfer (QC): 5 Does the Patient Walk: Yes Gait (FIM): 5 (met 01/16/17) Gait distance (FIM): 4=894-39 ft Walk 10 feet (QC): 5 (met 01/16/17) Walk 10ft-Uneven Surface(QC): 5 (met 01/16/17) Walk 50ft with 2 Turns (QC): 5 (met 01/16/17) Walk 150 ft (QC): 88 Gait Assistive Device: FWW Does the Pt use WC or Scooter?: Yes Wheelchair (FIM): 6 Wheelchair distance (FIM): 3=150 ft Wheel 50 feet with 2 turns (QC: 6 Stairs (FIM): 2 (met 01/16/17) # of Steps: 4 (met 01/16/17) 1 Step (curb) (QC): 5 (met) 4 Steps (QC): 5 (met 01/16/17) 12 Steps (QC): 88 Picking up an Object (QC): 88 PT Plan Treatment/Plan Treatment Plan: Continue Plan of Care Treatment Plan: Bed Mobility, Education, Functional Activity Juli, Functional Strength, Group Therapy, Gait, Safety, Therapeutic Exercise, Transfers Treatment Duration: January 18, 2017 Visits Per Week: 10-15 Minutes/Day (M-F): 60-90 Minutes/Day (Sat/Ferrara): prn Discharge Recommendations Therapy D/C Recommendations: Home w/ Family Support, Physical Therapy Home Care Time/GCodes Time In: 1300 Time Out: 1330 Total Billed Treatment Time: 30 Total Billed Treatment 1 visit GT 20 min FA 10 min LIZET SARMIENTO PT January 16, 2017 13:38
--- NOTE | 2017-01-16 17:39 | Podiatry Progress Note ---
Standard Progress Note Progress Notes/Assess & Plan Progress/Assessment & Plan Consult dictated. Foot care given. Follow up as needed. Final Diagnosis Arthrosclerosis Onychomycosis Italo History of C MARQUEZ Sherman DPM January 16, 2017 17:39
--- NOTE | 2017-01-16 17:47 | Podiatry Progress Note ---
Standard Progress Note Progress Notes/Assess & Plan Progress/Assessment & Plan Consult dictated. Foot care given. Follow up as needed. Final Diagnosis Onychomycosis PVD MARQUEZ Costa DPM January 16, 2017 17:47
[2017-01-16 17:59] VITALS: BP 121/67
--- NOTE | 2017-01-16 20:51 | PM & R (SOAP) Progress Note ---
Subjective Subjective/Events-last exam Patient was seen in his room this evening Patient Modified Independent for transfers feeling better eating better pain much improved Objective Exam Last Set of Vital Signs Vital Signs Date Time Temp Pulse Resp B/P (MAP) Pulse Ox O2 Delivery O2 Flow Rate FiO2 01/16/17 17:59 97.5 61 18 121/67 95 01/15/17 06:00 Room Air 01/12/17 08:00 2.00 Capillary Refill : Less Than 3 Seconds I&O Intake and Output 01/16/17 00:00 Intake Total 1080 ml Output Total 1450 ml Balance -370 ml Intake Oral 1080 ml Output Urine Total 1150 ml Stool Total 300 ml General: Alert, Oriented X3, Cooperative, No Acute Distress HEENT: Atraumatic, PERRLA, EOMI, Mucous Memb Moist/[place] Neck: Supple, No JVD Lungs: Clear to Auscultation Heart: Regular Rate, Normal S1, Normal S2 Abdomen: Normal Bowel Sounds, Soft, No Tenderness, Other (Colostomy functioning and midline incision healing well No abdominal tenderness) Extremities: No Clubbing, No Cyanosis, No Edema Skin: No Rashes Neuro: Normal Speech, Cranial Nerves 3-12 NL Psych/Mental Status: Mental Status NL Results Lab Microbiology 01/12/17 Blood Culture - Preliminary, Resulted No growth 01/13/17 C. 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 DR Jaime on iv antibiotics Copd Gerd HTN Hypokalemia-replaced Hypomagnesemia- on replacement Hypokalemia-IMPROVED DVT prophylaxis-on Lovenox Subcut postop anemia Abdominal wound draiange improved with suturing AM muscle cramps resolved spontaneously-Labs reviewed Plan Therapies rewumed last week and much improved Ongoing wound care and pain management Ostomy education for Patient and spouse Monitor labs and 02 sats and adjust meds as indicated.-remains on supplemental 02 Dr Jaime has seen re staple removal and suturing draining area improved Consult Assistant To The Vice President re supplement-done Appreciate Cardiology note. Repeat Chem and SL Zofran ordered F/U with Hospitalist and Cardiolgy and DR Jaime as per [facility] schedule Discussed case with DR Morrissey last week Possible discharge tomorrow Will f/u with SW and TEam tomorrow to confirm NATALIYA KHANNA MD January 16, 2017 20:51
[2017-01-16] MEDS: ATORVASTATIN 40 MG (LIPITOR) TABLET PO SCH (21:00)
--- NOTE | 2017-01-16 22:28 | CONSULTATION REPORT ---
DATE OF SERVICE: 01/16/2017 PODIATRY CONSULTATION REASON FOR CONSULTATION: Foot care. HISTORY OF PRESENT ILLNESS: This 71-year-old male was admitted through the ER with severe sepsis. He was given IV antibiotics and fluids. Apparently he had left lower lobe pneumonia and appropriate antibiotic change was made. He also was diagnosed with pseudomembranous colitis. Colon resection and diverting colostomy was performed by Dr. Jaime. He then developed Clostridium difficile, colitis as well as some COPD with severe congestive heart failure. The patient indicated that he had lower extremity vascular examination by Dr. Davis. The patient is currently going through rehabilitation therapy and progressing well. He can potentially be discharged to home tomorrow. PAST MEDICAL HISTORY: 1. Arthritis. 2. Coronary artery disease. 3. Chronic obstructive pulmonary disease. 4. Gastroesophageal reflux disease. 5. Hypertension. 6. Hypothyroidism on replacement therapy. 7. Rheumatoid arthritis. 8. Peripheral vascular disease. PAST SURGICAL HISTORY: 1. Left wrist fusion. 2. Left total knee replacement. 3. Colon procedure that is dictated above. ALLERGIES: SULFA. FAMILY HISTORY: Noncontributory. SOCIAL HISTORY: The patient was living with his . He has had multiple hospitalizations and short stays at nursing homes recently. CURRENT MEDICATIONS: Are listed on the patient's chart. PHYSICAL EXAMINATION: LOWER EXTREMITY EXAMINATION: This is a well-developed male in no apparent distress. He has nonpalpable pedal pulses bilaterally. Cap refill time is approximately 3 seconds. No digital hair growth is noted. NEUROLOGIC: The patient has intact light touch sensation noted to the plantar aspects of the feet bilaterally. DERMATOLOGIC: The patient has thick, yellow dystrophic toenails with subungual debris associated with the R1 and 5 digits as well as L1, 2, 4 and 5 digits. MUSCULOSKELETAL: The patient has 5/5 muscle strength to the 4 major quadrants of the foot. He has contracted toes 3, 4 and 5 on the left and 2, 3, 4 and 5 on the right. ASSESSMENT: 1. Onychomycosis. 2. Hammer digit syndrome. 3. Atherosclerosis. PLAN: Various treatment options were discussed with the patient. His toenails were debrided manually and mechanically. Betadine was applied. Because of his vascular issues I would not recommend that he try to trim his own toenails especially with the colostomy and other medical issues that restrict his ability to reach and care for his feet. He is welcome to follow up in the office as needed. Job ID: [id number] DocumentID: [id number] Dictated Date: 01/16/2017 17:44:59 Safety Representative Date: 01/16/2017 22:27:35 Dictated By: MARQUEZ KLINE DPM
[2017-01-17] MEDS: HYDROcodone/APAP 10 MG/325 MG (LORTAB) TAB PO PRN ×2 (00:29→08:50)
[2017-01-17] MEDS: VANCOMYCIN ORAL 250 MG/5 ML 60 ML PO SCH ×6 (00:29→11:05)
[2017-01-17 04:20] VITALS: BP 127/72
[2017-01-17] MEDS: KCL 10 MEQ TAB (MICRO K) PO SCH (06:19)
[2017-01-17] MEDS: LEVOTHYROXINE 75 MCG (LEVOTHROID) TABLET PO SCH (06:19)
[2017-01-17] MEDS: CALCIUM CARBONATE 600 MG (CALCARB) TAB PO SCH (06:19)
[2017-01-17] MEDS: LEVOTHYROXINE 100 MCG (LEVOTHROID) TAB PO SCH (06:19)
[2017-01-17] MEDS: PANTOPRAZOLE 40 MG (PROTONIX) TAB PO SCH (06:19)
[2017-01-17] MEDS: morphine ER 30 MG (MS CONTIN) TAB PO SCH ×2 (06:20→14:10)
--- NOTE | 2017-01-17 08:19 | Cardiology Progress Note ---
Subjective Subjective/Events-last exam Patient is sitting up in bed, being discharged home today. Denies any CP or dyspnea. Review of Systems General: No Night Sweats, No Fatigue, No Malaise HEENT: No Visual Changes, No Dysphasia Pulmonary: No Dyspnea, No Cough Cardiovascular: No: Chest Pain, Edema, Palpitations, Paroxysmal Noc. Dyspnea Gastrointestinal: No: Abdominal Pain, Nausea, Vomiting Genitourinary: No Dysuria, No Frequency Musculoskeletal: No: back pain, neck pain Neurological: No: Change in speech, Confusion, Numbness, Weakness Objective-Cardiology Exam Last Set of Vital Signs Vital Signs 01/12/17 01/17/17 08:00 04:20 Temp 97.6 Pulse 66 Resp 16 B/P (MAP) 127/72 Pulse Ox 93 O2 Delivery Room Air O2 Flow Rate 2.00 Capillary Refill : Less Than 3 Seconds I&O Intake and Output 01/17/17 00:00 Intake Total 1410 ml Output Total 1625 ml Balance -215 ml Intake Oral 1410 ml Output Urine Total 1525 ml Stool Total 100 ml # Bowel Movements 1 General: Alert, Oriented X3, Cooperative, No Acute Distress HEENT: Atraumatic, PERRLA, EOMI, Mucous Memb Moist/[place] Neck: Supple, No JVD Lungs: Clear to Auscultation Heart: Regular Rate, Normal S1, Normal S2 Abdomen: Normal Bowel Sounds, Soft, No Tenderness, Other (Colostomy functioning and midline incision healing well No abdominal tenderness) Extremities: No Clubbing, No Cyanosis, No Edema Skin: No Rashes Neuro: Normal Speech, Cranial Nerves 3-12 NL Psych/Mental Status: Mental Status NL A/P-Cardiology Admission Diagnosis C. difficile colitis Sepsis CHF PVD Assessment/Plan C. difficile colitis, status post extended left hemicolectomy with Pam procedure, doing much better today, Followed by Dr Jaime Hypotension, improved after blood transfusion. Continue to monitor, continue current medications Peripheral edema, better, continue to monitor Congestive heart failure, nonischemic cardiomyopathy, acute on chronic left ventricular systolic dysfunction with most recent ejection fraction improved to 50 percent. tolerating meds well, continue to monitor Status post acute renal failure. Improved, monitor renal function closely Anemia- stable, continue to monitor H/H closely Peripheral vascular disease with history of nonhealing wounds bilaterally. Peripheral angiogram done 12/04/16 revealed moderate atherosclerotic disease on the left lower extremity, the anterior tibial artery is severely diseased on the left lower extremity but the ulcer on the left lower extremity has healed. Medical therapy is recommended. Moderate disease of the right lower extremity with good flow, with three-vessel flow down to the foot. Continue medical management at this time and continue to monitor. Small infrarenal abdominal aortic aneurysm noted during peripheral angiogram. Continue to monitor Hyperlipidemia, continue to hold statin. Hyperthyroidism, history of hypothyroidism, managed by primary care physician History of pulmonary hypertension, continue to monitor History of rheumatoid arthritis. COPD, managed and followed by primary care physician Tobaccoism, patient has stopped smoking after the last admission. Encouraged to continue with smoking cessation History of chronic narcotic use, urine drug screen is positive for opioids Status post anoxic encephalopathy and pneumonia and sepsis early in October, improved with aggressive therapy. Back to his baseline. Continue to monitor. OK for discharge from Cardiology standpoint. Follow up in 1-2 weeks. Clinical Quality Measures DVT/VTE Risk/Contraindication: Risk Factor Score Per Nursin RFS Level Per Nursing on Admit: 4+=Very High FATUMA GARCES January 17, 2017 08:19
[2017-01-17] MEDS: ASPIRIN E.C. 81 MG (ECOTRIN) TAB PO SCH (08:50)
[2017-01-17] MEDS: FUROSEMIDE 20 MG (LASIX) TAB PO SCH (08:50)
[2017-01-17] MEDS: CARVEDILOL 3.125 MG (COREG) TABLET PO SCH (08:50)
--- NOTE | 2017-01-17 08:56 | Occupational Ther Daily Note ---
OT Current Status-Daily Note Subjective Pt. reports 7/10 pain in abdomen when session is over. Nursing notified. Appearance Pt. in bed. States that he is going home today. Agreeable to work with OT to get dressed before discharge home. Mental Status/Objective Patient Orientation: Person, Place Functional [place] Measure 0=Not Assessed/NA 4=Minimal Assistance 1=Total Assistance 5=Supervision or Setup 2=Maximal Assistance 6=Modified [place] 3=Moderate Assistance 7=Complete [place] Attachments: Colostomy/Ileostomy ADL-Treatment Functional [place] Measure 0=Not Assessed/NA 4=Minimal Assistance 1=Total Assistance 5=Supervision or Setup 2=Maximal Assistance 6=Modified [place] 3=Moderate Assistance 7=Complete IndependenceIRFPAI Quality Coding Scale 6 Independent with activity with or without an assistive device 5 Patient requires set up or clean up by helper. Patient completes activity by themselves 4 Supervision or touching assist (CGA). [place] provide cues , steadying assist 3 The helper provides less than half the effort to complete the activity 2 The helper provides more than half the effort to complete the activity 1 Dependent. The helper does all the effort to complete an activity 7 Patient refused to complete or attempt activity 9 The patient did not perform the activity before the current illness or injury 88 Not attempted due to Medical conditions or safety concerns Upper Body (FIM): 4 (Pt. required min assist to get sleeves adjusted over hands , due to arthritis.) Upper Body Dressing (QC): 4 Lower Body Dressing (FIM): 3 (Pt. required assistance to get socks over sock aide, but then able to don them with sock aide. Required assist to get pants over feet, but able to pull them up over hips.) Lower Body Dressing (QC): 3 Transfers (B, C, W/C) (FIM): 4 (CGA for sit-stand. SBA for supine-sit, and sit -supine.) Other Treatment Pt. is discharging home today. OT assisted him with dressing task to prepare for this. Pt. educated on where to get the adaptive equipment if he would like it for home use. Verbalizes understanding. All needs met back in bed when pt. done with dressing task. Education OT Patient Education: Correct positioning, Modified ADL techniques, Progress toward Goal/Update tx plan, Purpose of tx/functional activities, Reviewed precautions, Rehab process, Transfer techniques, Use of adapted equipment Teaching Recipient: Patient Teaching Methods: Demonstration, Discussion Response to Teaching: Verbalize Understanding, Return Demonstration OT Short Term Goals Short Term Goals Time Frame: Jan 04, 2017 Eating(FIM): 5 Grooming(FIM): 5 Bathing(FIM): 4 Upper Body Dressing(FIM): 4 Lower Body Dressing(FIM): 4 Toileting(FIM): 4 Transfers (B,C,W/C) (FIM): 4 Toilet/Commode Transfer(FIM): 5 Shower Transfer(FIM): 5 Additional Short Term Goals: 1-Demonstrate ADL Tasks, 2-Verbalize Understanding , 3-ImproveStrength/Juli 1=Demonstrate adherence to instructed precautions during ADL tasks. 2=Patient will verbalize/demonstrate understanding of assistive devices/ modifications for ADL. 3=Patient will improve strength/tolerance for activity to enable patient to perform ADL's. OT Clam Dredge Boat Captain Goals Fpc Goals Time Frame: January 18, 2017 Eating (FIM): 6 Eating (QC): 6 Groomin Oral Hygiene (QC): 6 Bathing(FIM): 5 Shower/Bathe Self (QC): 5 Upper Body Dressing(FIM): 6 Upper Body Dressing (QC): 6 Lower Body Dressing(FIM): 6 Lower Body Dressing (QC): 6 On/Off Footwear (QC): 6 Toileting(FIM): 6 Toileting Hygiene (QC): 6 Transfers (B,C,W/C) (FIM): 6 Toilet/Commode Transfer(FIM): 6 Toilet/Commode Transfer (QC): 6 Shower Transfer(FIM): 5 Additional Goals: 1-Demonstrate ADL Tasks, 2-Verbalize Understanding, 3- ImproveStrength/Juli 1=Demonstrate adherence to instructed precautions during ADL tasks. 2=Patient will verbalize/demonstrate understanding of assistive devices/ modifications for ADL. 3=Patient will improve strength/tolerance for activity to enable patient to perform ADL's. OT Education/Plan Problem List/Assessment Assessment: Decreased Activ Tolerance, Decreased UE Strength, Dependent Transfers, Impaired Bed Mobility, Impaired Coordination, Impaired Funct Balance , Impaired I ADL's, Impaired Self-Care Skills, Restricted Funct UE ROM Discharge Recommendations Plan/Recommendations: Continue POC Therapy D/C Recommendations: Home w/ Family Support, Occupational Therapy Home Care, Scheduled Assistance Comment Pt. needs a walker with bilateral platforms. Treatment Plan/Plan of Care Treatment,Training & Education: Yes Patient would benefit from OT for education, treatment and training to promote independence in ADL's, mobility, safety and/or upper extremity function for ADL' s. Plan of Care: ADL Retraining, Caregiver Training, Functional Mobility, Group Exercise/Act as Ind, UE Funct Exercise/Act Treatment Duration: January 18, 2017 Visits Per Week: 10-12 Minutes/Day (M-F): 60-90 Minutes/Day (Sat/Ferrara): prn Agreement: Yes Rehab Potential: Fair Time/GCodes Start Time: 08:15 Stop Time: 08:45 Total Time Billed (hr/min): 30 Billed Treatment Time 1, ADL x 2 JENNI OSBORN OT January 17, 2017 08:56
--- NOTE | 2017-01-17 09:46 | PM & R (SOAP) Progress Note ---
Subjective Subjective/Events-last exam Patient was seen in his room this AM Case discussed with RN PT JOVON and Printed Circuit Board Pcb Designer Patient has progressed well Patient Modified Independent for Transfers RX for DME Wheeled walker with bilateral Platforms provided due to patients arthritic hands Objective Exam Last Set of Vital Signs Vital Signs Date Time Temp Pulse Resp B/P (MAP) Pulse Ox O2 Delivery O2 Flow Rate FiO2 01/17/17 04:20 97.6 66 16 127/72 93 Room Air 01/12/17 08:00 2.00 Capillary Refill : Less Than 3 Seconds I&O Intake and Output 01/17/17 00:00 Intake Total 1410 ml Output Total 1625 ml Balance -215 ml Intake Oral 1410 ml Output Urine Total 1525 ml Stool Total 100 ml # Bowel Movements 1 General: Alert, Oriented X3, Cooperative, No Acute Distress HEENT: Atraumatic, PERRLA, EOMI, Mucous Memb Moist/Alex Neck: Supple, No JVD Lungs: Clear to Auscultation Heart: Regular Rate, Normal S1, Normal S2 Abdomen: Normal Bowel Sounds, Soft, No Tenderness, Other (Colostomy functioning and midline incision healing well No abdominal tenderness) Extremities: No Clubbing, No Cyanosis, No Edema Skin: No Rashes Neuro: Normal Speech, Cranial Nerves 3-12 NL Psych/Mental Status: Mental Status NL Results Lab Microbiology 01/12/17 Blood Culture - Preliminary, Resulted No growth 01/13/17 C. 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
--- NOTE | 2017-01-17 11:06 | Therapy Team Discharge Summary ---
Therapy Discharge Summary Discharge Recommendations Date of Discharge Therapy D/C Recommendations: Home w/ Family Support, Occupational Therapy Home Care, Scheduled Assistance Occupational Therapy Pt. is discharging today. Pt. requires assist at times for daily tasks, as many factors are involved. Several times, pt. would become nauseated, and required increased assist. 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 At times, pt. was more independent with PT with ambulation and transfers. However, when OT would work with pt., he would often present with weakness and nausea during functional tasks. Pt. is discharging home with . Would recommend continued home therapy, and scheduled assistance as needed within the home to increase overall independence. Pt. is also in need of a walker with bilateral platforms, and would benefit from a hip kit that he can obtain on his own if he decides that he would like one. PT Mcc Goals Mcc Goals PT Mcc Goals Time Frame: January 18, 2017 Transfers (B,C,W/C) (FIM): 6 (met 01/16/17) Roll Left to Right (QC): 6 (met 01/16/17) Sit to Lying (QC): 6 (met 01/16/17) Lying-Sitting on Side/Bed(QC): 6 (met 01/16/17) Sit to Stand (QC): 6 (met 01/16/17) Chair/Jnf-zt-Cdftg Xfer(QC): 6 Car Transfer (QC): 5 Does the Patient Walk: Yes Gait (FIM): 5 (met 01/16/17) Gait distance (FIM): 4=663-26 ft Walk 10 feet (QC): 5 (met 01/16/17) Walk 10ft-Uneven Surface(QC): 5 (met 01/16/17) Walk 50ft with 2 Turns (QC): 5 (met 01/16/17) Walk 150 ft (QC): 88 Gait Assistive Device: FWW Does the Pt use WC or Scooter?: Yes Wheelchair (FIM): 6 Wheelchair distance (FIM): 3=150 ft Wheel 50 feet with 2 turns (QC: 6 Stairs (FIM): 2 (met 01/16/17) # of Steps: 4 (met 01/16/17) 1 Step (curb) (QC): 5 (met) 4 Steps (QC): 5 (met 01/16/17) 12 Steps (QC): 88 Picking up an Object (QC): 88 OT Mcc Goals Mcc Goals Time Frame: January 18, 2017 Eating (FIM): 6 (not met (set up)) Eating (QC): 6 (not met) Oral Hygiene (QC): 6 (not met) Grooming(FIM): 6 (not met) Bathing(FIM): 5 (not met) Shower/Bathe Self (QC): 5 (not met) Upper Body Dressing(FIM): 6 (not met) Upper Body Dressing (QC): 6 (not met) Lower Body Dressing(FIM): 6 (not met) Lower Body Dressing (QC): 6 (not met) On/Off Footwear (QC): 6 (not met) Toileting(FIM): 6 (not met) Toileting Hygiene (QC): 6 (not met) Transfers (B,C,W/C) (FIM): 6 (not met) Toilet/Commode Transfer(FIM): 6 (not met) Toilet/Commode Transfer (QC): 6 (not met) Shower Transfer(FIM): 5 (not met) Additional Goals: 1-Demonstrate ADL Tasks, 2-Verbalize Understanding, 3- ImproveStrength/Juli 1=Demonstrate adherence to instructed precautions during ADL tasks. 2=Patient will verbalize/demonstrate understanding of assistive devices/ modifications for ADL. 3=Patient will improve strength/tolerance for activity to enable patient to perform ADL's. JENNI OSBORN OT January 17, 2017 11:06
[2017-01-17] MEDS ORDERED: RELABEL FOR HOME USE MC SCH (11:30)
[2017-01-17 14:19] VITALS: BP 127/72
--- NOTE | 2017-01-18 08:48 | Therapy Team Discharge Summary ---
Therapy Discharge Summary Discharge Recommendations Date of Discharge January 17, 2017 at 14:31 Therapy D/C Recommendations: Home w/ Family Support, Occupational Therapy Home Care, Scheduled Assistance Physical Therapy This patient was seen for skilled therapy services on ARU post acute admission for colitis and post colostomy. Upon admit, he was dependent for transfers and at discharge he was min to mod indep. At admit, he was only able to take steps to ambulate and at discharge he was able to ambulate 80 ft; stairs were not assessed at evaluation due to being unable, but at discharge he was able to traverse 4 steps. He did make functional gains and significant improvement. Still needed assist at times with transfers and gait distance is limited. His afternoon treatment on last day, he was mod indep with transfers but in the morning required assist, thus goals not fully met consistently. Pt to discharge home with spouse and recommend follow up [facility] PT to continue to progress functional mobility and strength. DC PT. PT Halfway Goals Editorial Manager Goals PT Halfway Goals Time Frame: January 18, 2017 Transfers (B,C,W/C) (FIM): 6 (met 01/16/17) Roll Left to Right (QC): 6 (met 01/16/17) Sit to Lying (QC): 6 (met 01/16/17) Lying-Sitting on Side/Bed(QC): 6 (met 01/16/17) Sit to Stand (QC): 6 (met 01/16/17) Chair/Rkj-pp-Pfums Xfer(QC): 6 Car Transfer (QC): 5 Does the Patient Walk: Yes Gait (FIM): 5 (met 01/16/17) Gait distance (FIM): 5=797-96 ft Walk 10 feet (QC): 5 (met 01/16/17) Walk 10ft-Uneven Surface(QC): 5 (met 01/16/17) Walk 50ft with 2 Turns (QC): 5 (met 01/16/17) Walk 150 ft (QC): 88 Gait Assistive Device: FWW Does the Pt use WC or Scooter?: Yes Wheelchair (FIM): 6 Wheelchair distance (FIM): 3=150 ft Wheel 50 feet with 2 turns (QC: 6 Stairs (FIM): 2 (met 01/16/17) # of Steps: 4 (met 01/16/17) 1 Step (curb) (QC): 5 (met) 4 Steps (QC): 5 (met 01/16/17) 12 Steps (QC): 88 Picking up an Object (QC): 88 OT Editorial Manager Goals Halfway Goals Time Frame: January 18, 2017 Eating (FIM): 6 (not met (set up)) Eating (QC): 6 (not met) Oral Hygiene (QC): 6 (not met) Grooming(FIM): 6 (not met) Bathing(FIM): 5 (not met) Shower/Bathe Self (QC): 5 (not met) Upper Body Dressing(FIM): 6 (not met) Upper Body Dressing (QC): 6 (not met) Lower Body Dressing(FIM): 6 (not met) Lower Body Dressing (QC): 6 (not met) On/Off Footwear (QC): 6 (not met) Toileting(FIM): 6 (not met) Toileting Hygiene (QC): 6 (not met) Transfers (B,C,W/C) (FIM): 6 (not met) Toilet/Commode Transfer(FIM): 6 (not met) Toilet/Commode Transfer (QC): 6 (not met) Shower Transfer(FIM): 5 (not met) Additional Goals: 1-Demonstrate ADL Tasks, 2-Verbalize Understanding, 3- ImproveStrength/Juli 1=Demonstrate adherence to instructed precautions during ADL tasks. 2=Patient will verbalize/demonstrate understanding of assistive devices/ modifications for ADL. 3=Patient will improve strength/tolerance for activity to enable patient to perform ADL's. SOMMER PARRY PT January 18, 2017 08:48
== END 2017-01-17 14:31 | disposition home health service (06) | DRG 871 ==
LOC: ENPENDDIS 01-17 13:00
PROVIDERS: ADMIT Physical Medicine & Rehabilitation; ATTEND Physical Medicine & Rehabilitation
DX: A41.9 Sepsis, unspecified organism (principal); J18.9 Pneumonia, unspecified organism; A04.7 Enterocolitis due to Clostridium difficile; Z48.815 Encounter for surgical aftercare following surgery on the digestive system; Z93.3 Colostomy status; I11.0 Hypertensive heart disease with heart failure; I50.22 Chronic systolic (congestive) heart failure; I42.9 Cardiomyopathy, unspecified; T81.32XA Disruption of internal operation (surgical) wound, not elsewhere classified, initial encounter; E46 Unspecified protein-calorie malnutrition; E87.1 Hypo-osmolality and hyponatremia; J44.9 Chronic obstructive pulmonary disease, unspecified; M06.9 Rheumatoid arthritis, unspecified; K21.9 Gastro-esophageal reflux disease without esophagitis; E87.6 Hypokalemia; E83.42 Hypomagnesemia; E78.5 Hyperlipidemia, unspecified; I27.2 Other secondary pulmonary hypertension; F17.210 Nicotine dependence, cigarettes, uncomplicated; D64.9 Anemia, unspecified; E88.09 Other disorders of plasma-protein metabolism, not elsewhere classified; I70.203 Unspecified atherosclerosis of native arteries of extremities, bilateral legs; F11.90 Opioid use, unspecified, uncomplicated; B35.1 Tinea unguium; M20.41 Other hammer toe(s) (acquired), right foot; M20.42 Other hammer toe(s) (acquired), left foot
CPT/HCPCS: 36415; 71260; 74000; 74177; 80048; 80053; 81000; 83605; 83735; 85025; 85027; 87040; 87324; 87449; 94640; 94760

== ENCOUNTER 2017-01-12 11:33 | Inpatient (IN) | payer MEDICARE ==
[~2017-01-12] VITALS: Ht 172.7 cm; Wt 64.9 kg
[2017-01-12] VITALS (17 sets, daily range): BP systolic 81–128; BP diastolic 48–87
[2017-01-12] MEDS: NS IV 1000 ML 1,000 ML IV SCH ×2 (12:00→13:00)
[2017-01-12] MEDS ORDERED: NS IV 1000 ML 1,000 ML IV STA ×2 (12:33)
[2017-01-12] MEDS ORDERED: NS 100 ML (IVPB) BAG IV ONE (12:45)
[2017-01-12] MEDS ORDERED: CATHETER FLUSH 10 ML SYR IV PRN (12:45)
[2017-01-12] MEDS ORDERED: IOHEXOL 350 MG/ML 100 ML (OMNIPAQUE 350) VIAL IV ONE (12:45)
[2017-01-12] MEDS ORDERED: PIPERACILLIN/TAZO 4.5 GM VIAL (ZOSYN) IV ONE (13:44)
[2017-01-12] MEDS ORDERED: PIPERACILLIN SODIUM/TAZOBACTAM 4.5 GM in NS (IVPB) 100 ML IV SCH (13:45)
[2017-01-12] MEDS ORDERED: VANCOMYCIN 1500 MG/NS 500 ML IVPB IV NR ×2 (14:00)
[2017-01-12] MEDS ORDERED: PIPERACILLIN SODIUM/TAZOBACTAM 4.5 GM in NS (IVPB) 100 ML IV NR (14:08)
--- NOTE | 2017-01-12 14:08 | Diagnostic Imaging Report ---
INDICATION: Hypotension. 4 weeks post colon and bladder. surgery. TECHNIQUE: Single view chest 1:49 PM. CORRELATION STUDY: 12/20/2016 FINDINGS: Heart size enlarged. Vasculature is relatively normal on followup. Chronic type change about the lung parenchyma with likely changes of COPD. No definitive infiltrate. The previously noted right IJ central line has been removed. IMPRESSION: 1. Stable cardiac enlargement with vasculature improved and near normal on followup. 2. Chronic change in the lung parenchyma with COPD. No infiltrate. Dictated by: Dictated on workstation # [id number]
[2017-01-12 14:17] LABS: BASOPHILS # (AUTO) 0.1 10^3/uL (0.0-0.1); BASOPHILS % (AUTO) 1 % (0-10); EOSINOPHILS # (AUTO) 0.4 10^3/uL (0.0-0.3); EOSINOPHILS % (AUTO) 4 % (0-10); LYMPHOCYTES % (AUTO) 22 % (12-44); MEAN CORPUSCULAR HEMOGLOBIN 28 PG (25-34); MEAN CORPUSCULAR VOLUME 91 FL (80-99); MONOCYTES # (AUTO) 1.1 X 10^3 (0.0-1.0); MONOCYTES % (AUTO) 12 % (0-12); NEUTROPHILS # (AUTO) 5.5 X 10^3 (1.8-7.8); NEUTROPHILS % (AUTO) 60 % (42-75); RED BLOOD COUNT 2.73 10^6/uL (4.35-5.85)
[2017-01-12] MEDS: NS IV 500 ML 500 ML IV SCH ×2 (14:17→14:58)
[2017-01-12 14:18] LABS: MEAN CORPUSCULAR HGB CONC 31 G/DL (32-36); PLATELET COUNT 328 10^3/uL (130-400); RED CELL DISTRIBUTION WIDTH 18.8 % (10.0-14.5); WHITE BLOOD COUNT 9.2 10^3/uL (4.3-11.0)
[2017-01-12 14:19] LABS: MEAN PLATELET VOLUME 9.2 FL (7.4-10.4)
--- NOTE | 2017-01-12 14:25 | Physical Therapy Progress Note ---
Therapy Progress Note No rehab treatment this afternoon. Patient went to ICU. Will check on him tomorrow. ELSY AGUIRRE PT Jan 12, 2017 14:25
--- NOTE | 2017-01-12 14:39 | Progress Note-Standard ---
Standard Progress Note Progress Notes/Assess & Plan Progress/Assessment & Plan Consulted for IV start per . 20 gauge to left AC x1 attempt. Julio C well , taped and secured. YULISSA ROGERS SEARCH ENGINE OPTIMIZATION STRATEGIST Jan 12, 2017 14:39
[2017-01-12] MEDS ORDERED: VANCOMYCIN ORAL SUSPENSION 60 ML BOTTLE PO SCH (15:30)
--- NOTE | 2017-01-12 15:52 | Progress Note ---
Subjective Subjective/Events-last exam I was called to see the pt regarding hypotension, possible sepsis. Pt was seen in rehab unit, and then again while he was in the CT scanner. In rehab he did not appear to be in any acute distress. He was talking, said his abdominal pain was slightly better. But, he did say he didn't feel good. He was still urinating, having BM in ostomy and eating a little. Review of Systems General: No Chills, No Night Sweats HEENT: No Dysphasia, No Sinus Congestion, No Sore Throat Pulmonary: No Dyspnea, No Cough Cardiovascular: No: Chest Pain, Palpitations Gastrointestinal: Abdominal Pain, Nausea, No: Constipation Genitourinary: No Dysuria, No Frequency Neurological: Weakness, No: Change in speech, Confusion Objective Exam Vital Signs Date Time Temp Pulse Resp B/P (MAP) Pulse Ox O2 Delivery O2 Flow Rate FiO2 01/12/17 15:16 97.9 72 113/78 01/12/17 15:00 97.0 68 16 88/57 01/12/17 12:00 98.0 63 27 81/48 96 Room Air Capillary Refill : Less Than 3 Seconds General Appearance: Chronically ill, Mild Distress, Thin HEENT: PERRL/EOMI, Pharynx Normal, No Scleral Icterus (L), No Scleral Icterus ( R) Neck: Non Tender, Supple Respiratory: Lungs Clear, No Accessory Muscle Use, No Respiratory Distress Cardiovascular: Regular Rate, Rhythm, No Murmur, Normal Peripheral Pulses Peripheral Pulses: 4+ Carotid (R), 4+ Carotid (L), 4+ Radial Pulses (R), 4+ Radial Pulses (L) Gastrointestinal: soft, no organomegaly, no pulsatile mass, tenderness (mild) Extremity: Normal Capillary Refill, No Calf Tenderness, No Pedal Edema Neurologic/Psychiatric: Alert, Oriented x3, glass tube bender II-XII Norm as Tested Skin: Normal Color, Warm/Dry Results Lab Laboratory Tests 01/12/17 12:25: White Blood Count 9.2, Red Blood Count 2.73L, Hemoglobin 7.6L, Hematocrit 25L, Mean Corpuscular Volume 91, Mean Corpuscular Hemoglobin 28, Mean Corpuscular Hemoglobin Concent 31L, Red Cell Distribution Width 18.8H, Platelet Count 328, Mean Platelet Volume 9.2, Neutrophils (%) (Auto) 60, Lymphocytes (%) (Auto) 22, Monocytes (%) (Auto) 12, Eosinophils (%) (Auto) 4, Basophils (%) (Auto) 1, Neutrophils # (Auto) 5.5, Lymphocytes # (Auto) 2.0, Monocytes # (Auto) 1.1H, Eosinophils # (Auto) 0.4H, Basophils # (Auto) 0.1 Assessment/Plan Assessment/Plan Assessment/Plan 1. Hypotension - unknown etiology, not tachycardic, did drop pulse Ox to 88% according to nurse, but when I was in room he was 98% on room air. Bolused IVF 2. Colitis - I briefly reviewed CT with radiologist and he appears to have thickened portion of his remaining colon. I suspect a recurrence of his C. Diff , placed on oral Vancomycin. 3. Anemia - chronic, currently being transfused with 2 U PRBC's 4. Malnutrition - cont calorie count and encourage PO protein at higher level 5. Weakness - most likely secondary to #2,3 and 4. Encourage ambulation and work with PT NATALIYA BOSWELL DO Jan 12, 2017 15:52
[2017-01-12] MEDS: HYDROcodone/APAP 10 MG/325 MG (LORTAB) TAB PO PRN (16:11)
--- NOTE | 2017-01-12 16:18 | Cardiology Progress Note ---
Subjective Subjective/Events-last exam I was called to evaluate patient who is severely hypotensive. Reported to me that his blood pressure is 50 mmHg systolic. Started on IV bolus and transferred to the intensive care unit, upon my evaluation was laying down in bed, complaining of generalized fatigue and loss of energy, his blood pressure was somewhat better. He had active bowel sounds. Having abdominal discomfort. Denied any chest pain, appeared slightly pale. No syncope. I help transferring him to the intensive care unit personally. Blood pressure was improving. Review of Systems General: No Chills, No Night Sweats, Fatigue, Malaise, Appetite, No Other HEENT: No Head Aches, No Visual Changes, No Eye Pain, No Ear Pain, No Dysphasia , No Sinus Congestion, No Post Nasal Drip, No Sore Throat, No Other Pulmonary: Dyspnea, No Cough, No Pleuritic Chest Pain, No Other Cardiovascular: No: Chest Pain, Edema, Lt Headedness, Orthopnea, Other, Palpitations, Paroxysmal Noc. Dyspnea Gastrointestinal: Nausea, No: Abdominal Pain, Constipation, Diarrhea, Hematochezia, Melena, Other, Vomiting Objective-Cardiology Exam Last Set of Vital Signs Vital Signs 01/12/17 01/12/17 01/12/17 12:00 15:00 15:16 Temp 97.9 Pulse 72 Resp 16 B/P (MAP) 113/78 Pulse Ox 96 O2 Delivery Room Air Capillary Refill : Less Than 3 Seconds General: Alert, Oriented X3, Cooperative, Moderate Distress HEENT: Atraumatic, PERRLA Neck: Supple, No JVD, No Thyromegaly Lungs: Normal Air Movement, Other (bilateral rhonchi) Heart: Regular Rate, Normal S1, Normal S2, No Murmurs Abdomen: Soft, No Hepatosplenomegaly, No Masses, Other (abdominal discomfort) Extremities: No Clubbing, No Cyanosis, No Edema, Normal Pulses, No Tenderness/ Swelling Skin: No Rashes, No Breakdown, No Significant Lesion Neuro: Normal Speech, Normal Tone Psych/Mental Status: Mental Status NL, Mood NL Results Lab Laboratory Tests 01/12/17 12:25 A/P-Cardiology Assessment/Plan hypotension, unknown etiology probably secondary to hypovolemia in addition to medication, it was reported that his blood pressure was normal and he received his Coreg, blood pressure reported to me to be in the 50s systolic, patient has been having abdominal pain and generalized fatigue, Dr. Jaime was called and CT scan was reviewed with the radiologist. I will continue on IV fluid and hold his beta blockers and ARB at this time. Monitor his mental status closely. C. difficile colitis, status post extended left hemicolectomy with Pam procedure, Worse today. Followed by Dr Jaime Short of breath, generalized fatigue. Continue to monitor Congestive heart failure, nonischemic cardiomyopathy, acute on chronic left ventricular systolic dysfunction with most recent ejection fraction improved to 50 percent. Maintained on beta gurpreet and Entresto. Patient is hypotensive, currently cannot tolerate beta blockers and/or ARB and/or DARREL inhibitor, keep him on hold and monitor Status post anoxic encephalopathy and pneumonia and sepsis early in October, improved with aggressive therapy. Back to his baseline. Continue to monitor. Status post acute renal failure. Improved, monitor renal function closely Anemia, received 2 units of packed RBCs recently, continue to monitor H&H Peripheral vascular disease with history of nonhealing wounds bilaterally. Peripheral angiogram done 12/04/16 revealed moderate atherosclerotic disease on the left lower extremity, the anterior tibial artery is severely diseased on the left lower extremity but the ulcer on the left lower extremity has healed. Medical therapy is recommended. Moderate disease of the right lower extremity with good flow, with three-vessel flow down to the foot. Continue medical management at this time and continue to monitor. Small infrarenal abdominal aortic aneurysm noted during peripheral angiogram. Continue to monitor Hyperlipidemia, continue to hold statin. Hyperthyroidism, history of hypothyroidism, managed by primary care physician History of pulmonary hypertension, continue to monitor History of rheumatoid arthritis. COPD, managed and followed by primary care physician Tobaccoism, patient has stopped smoking after the last admission. Encouraged to continue with smoking cessation History of chronic narcotic use, urine drug screen is positive for opioids Critical care management time 45 minutes. TORY HALL MD Jan 12, 2017 16:18
[2017-01-12] MEDS: VANCOMYCIN ORAL 250 MG/5 ML 60 ML PO SCH ×2 (17:53)
[2017-01-12] MEDS: ONDANSETRON 4 MG (ZOFRAN) ORAL DISSOLVE TAB PO PRN (21:50)
[2017-01-12] MEDS: PIPERACILLIN/TAZOBACTAM 4.5 GM/NS100 ML IVPB IV SCH ×2 (21:51)
[2017-01-13] VITALS (12 sets, daily range): BP systolic 95–149; BP diastolic 63–87
[2017-01-13] MEDS: VANCOMYCIN ORAL 250 MG/5 ML 60 ML PO SCH ×4 (00:14→06:07)
[2017-01-13] MEDS: HYDROcodone/APAP 10 MG/325 MG (LORTAB) TAB PO PRN ×2 (00:22→08:24)
[2017-01-13] MEDS ORDERED: VANCOMYCIN INJECTION 1,000 MG in NS (IVPB) 250 ML IV SCH (02:00)
[2017-01-13] MEDS: ONDANSETRON 4 MG (ZOFRAN) ORAL DISSOLVE TAB PO PRN ×2 (04:34→09:10)
[2017-01-13] MEDS: PIPERACILLIN/TAZOBACTAM 4.5 GM/NS100 ML IVPB IV SCH ×2 (04:34)
[2017-01-13 05:30] LABS: BASOPHILS # (AUTO) 0.1 10^3/uL (0.0-0.1); BASOPHILS % (AUTO) 1 % (0-10); EOSINOPHILS # (AUTO) 0.6 10^3/uL (0.0-0.3); EOSINOPHILS % (AUTO) 8 % (0-10); LYMPHOCYTES # (AUTO) 1.5 X 10^3 (1.0-4.0); LYMPHOCYTES % (AUTO) 18 % (12-44); MEAN CORPUSCULAR HEMOGLOBIN 28 PG (25-34); MEAN CORPUSCULAR HGB CONC 32 G/DL (32-36); MEAN CORPUSCULAR VOLUME 89 FL (80-99); MEAN PLATELET VOLUME 9.7 FL (7.4-10.4); MONOCYTES # (AUTO) 0.9 X 10^3 (0.0-1.0); MONOCYTES % (AUTO) 11 % (0-12); NEUTROPHILS % (AUTO) 62 % (42-75); PLATELET COUNT 385 10^3/uL (130-400); RED BLOOD COUNT 4.05 10^6/uL (4.35-5.85); RED CELL DISTRIBUTION WIDTH 18.1 % (10.0-14.5); WHITE BLOOD COUNT 8.1 10^3/uL (4.3-11.0)
[2017-01-13 05:45] LABS: ALANINE AMINOTRANSFERASE 6 U/L (0-55); ANION GAP 9 MMOL/L (5-14); ASPARTATE AMINO TRANSFERASE 12 U/L (5-34); BILIRUBIN,TOTAL 0.3 MG/DL (0.1-1.0); BLOOD UREA NITROGEN 8 MG/DL (7-18); BUN/CREATININE RATIO 10; CARBON DIOXIDE 23 MMOL/L (21-32); CHLORIDE 104 MMOL/L (98-107); CREATININE SERUM 0.81 MG/DL (0.60-1.30); GFR ESTIMATED > 60; GLUCOSE 74 MG/DL (70-105); MAGNESIUM 1.4 MG/DL (1.8-2.4); POTASSIUM 4.4 MMOL/L (3.6-5.0); SODIUM 136 MMOL/L (135-145); TOTAL PROTEIN 4.6 G/DL (6.4-8.2)
--- NOTE | 2017-01-13 06:54 | Short Stay Summary ---
History of Present Illness History of Present Illness Reason for visit/HPI 71 years old gentleman who was in acute rehabilitation recovering from C. difficile colitis and hemicolectomy, he became hypotensive yesterday morning, lethargic, patient was transferred to the intensive care unit, received fluid resuscitation and noted to be anemic, received 2 units of packed RBCs. Did not have any chest pain or palpitation, has been complaining of generalized fatigue and loss of energy. Currently feeling better. Date of Admission Jan 12, 2017 at 12:03 Date of Discharge Attending Physician Gabi Brown DO Admitting Physician Berry Grajeda MD Consult Allergies and Home Medications Allergies Coded Allergies: Sulfa (Sulfonamide Antibiotics) (Unverified Allergy, Unknown, 11/07/16) Home Medications Aspirin 81 Mg Tabec, 81 MG PO DAILY, (Reported) Atorvastatin Calcium 40 Mg Tablet, 40 MG PO HS, (Reported) Calcium Carbonate/Vitamin D3 1 Each Tablet, 1 TAB PO DAILY, (Reported) Carvedilol 3.125 Mg Tablet, 3.125 MG PO BID, (Reported) Furosemide 20 Mg Tablet, 20 MG PO DAILY, (Reported) Hydrocodone/Acetaminophen 1 Each Tablet, 1 TAB PO Q6H PRN for MODERATE PAIN, ( Reported) Ipratropium/Albuterol Sulfate 3 Ml Ampul.neb, 3 ML IH Q6H PRN for SHORTNESS OF BREATH, (Reported) Levothyroxine Sodium 175 Mcg Tablet, 175 MCG PO DAILY@0600, (Reported) Morphine Sulfate 30 Mg Tablet.er, 30 MG PO Q8H PRN for SEVERE PAIN, (Reported) Morphine Sulfate 4 Mg/1 Ml Cartridge, 2-4 MG IVP Q2H PRN for SEVERE PAIN for 30 Days Prescribed by: GABI BROWN on 12/21/16 111 Ondansetron HCl/Pf 4 Mg/2 Ml Vial, 4 MG IV Q4H PRN for NAUSEA/VOMITING for 30 Days Prescribed by: GABI BROWN on 12/21/16 111 Pantoprazole Sod 40 Mg Tab, 40 MG PO DAILY, (Reported) Potassium Chloride 10 Meq Tab.er.prt, 10 MEQ PO DAILY, (Reported) Sacubitril/Valsartan 1 Each Tablet, 1 TAB PO BID, (Reported) Past Gguwpue-Tsnyqr-Zchrvg Hx Patient Social History Marrital Status: Employed/Student: retired Alcohol Use: Denies Use Recreational Drug Use: No (NONE FOR YEARS) Smoking Status: Former Smoker Type Used: Cigarettes Physical Abuse Screen: No Sexual Abuse: No Recent Foreign Travel: No Contact w/other who traveled: No Recent Hopitalizations: Yes Recent Infectious Disease Expo: No Immunizations Up To Date Date of Pneumonia Vaccine: Mar 04, 2013 Seasonal Allergies Seasonal Allergies: No Surgeries HX Surgeries: Yes Surgeries: Cardiac, Orthopedic Respiratory Hx Respiratory Disorders: Yes Respiratory Disorders: COPD, Sleep Apnea Cardiovascular Hx Cardiovascular Disorders: Yes (CHF; PULMONARY HTN) Cardiac Disorders: Chronic Edema/Swelling, Coronary Artery Disease, High Cholesterol, Hypertension, Peripheral Vascular Neurological Hx Neurological Disorders: No Reproductive System Hx Reproductive Disorders: No Sexually Transmitted Disease: Yes HIV/AIDS: No Genitourinary Hx Genitourinary Disorders: No Genitourinary Disorders: Renal Failure Gastrointestinal Hx Gastrointestinal Disorders: Yes Gastrointestinal Disorders: Gastroesophageal Reflux, Hemorrhoids Musculoskeletal Hx Musculoskeletal Disorders: Yes (RHEUMATOID ARTHRITIS/OSTEOPOROSIS; BILATERAL OLECRANON BURSITIS) Musculoskeletal Disorders: Osteoporosis, Arthritis, Rheumatoid Arthritis Endocrine Hx Endocrine Disorders: Yes Endocrine Disorders: Hypothyroidsim HEENT HX ENT Disorders: Yes (full set of dentures) Cancer Hx Cancer: No Psychosocial Hx Psychiatric Problems: Yes Behavioral Health Disorders: Anxiety Integumentary HX Skin/Integumentary Disorder: Yes (CHRONIC LEG WOUNDS ) Blood Transfusions Hx Blood Disorders: Yes (ANEMIA) Family Medical History Significant Family History: No Pertinent Family Hx Family Hx: Patient reports no known family medical history. Constitutional: see HPI, dizziness, malaise, weakness, weight loss EENTM: no symptoms reported, see HPI Respiratory: see HPI, cough, dyspnea on exertion, No hemoptysis, No orthopnea, No phlegm, No short of breath, No stridor, No wheezing, No other Cardiovascular: see HPI, No chest pain, No edema, No Hx of Intervention, No palpitations, No syncope, No vascular heart diseas, No other Gastrointestinal: see HPI, heartburn, nausea Genitourinary: no symptoms reported, see HPI Musculoskeletal: no symptoms reported, see HPI Skin: no symptoms reported, see HPI Psychiatric/Neurological: No Symptoms Reported, See HPI Physical Exam Vital Signs Vital Sign - Last 12Hours 01/12/17 12:00 Temp 98.0 Pulse 63 Resp 27 B/P (MAP) 81/48 Pulse Ox 96 O2 Delivery Room Air Capillary Refill : Less Than 3 Seconds General Appearance: No Apparent Distress, WD/WN, Mild Distress Eyes: Bilateral Eye EOMI, Bilateral Eye Normal Inspection, Bilateral Eye PERRL HEENT: PERRL/EOMI, TMs Normal, Normal ENT Inspection, Pharynx Normal Neck: Full Range of Motion, Normal Inspection, Non Tender, Supple, Carotid Bruit Respiratory: Chest Non Tender, Lungs Clear, Normal Breath Sounds, No Accessory Muscle Use, No Respiratory Distress Cardiovascular: Regular Rate, Rhythm, No Edema, No Gallop, No JVD, No Murmur, Normal Peripheral Pulses Gastrointestinal: Normal Bowel Sounds, No Organomegaly, No Pulsatile Mass, Non Tender, Soft Back: Normal Inspection, No CVA Tenderness, No Vertebral Tenderness Extremity: Normal Capillary Refill, Normal Inspection, Normal Range of Motion, Non Tender, No Calf Tenderness, No Pedal Edema Neurologic/Psychiatric: Alert, Oriented x3, No Motor/Sensory Deficits, Normal Mood/Affect Skin: Normal Color, Warm/Dry Lymphatic: No Adenopathy Clinical Quality Measures DVT/VTE Risk/Contraindication: VTE Present on Admission: No Risk Factor Score Per Nursin RFS Level Per Nursing on Admit: 4+=Very High Short Stay Diagnosis Discharge Diagnosis-Short Stay Admission Diagnosis: Hypotension Anemia C. difficile colitis Peripheral arterial disease Final Discharge Diagnosis: Hypotension Anemia C. difficile colitis Peripheral arterial disease Conclusion Labs Laboratory Tests 01/12/17 12:25: White Blood Count 9.2, Red Blood Count 2.73L, Hemoglobin 7.6L, Hematocrit 25L, Mean Corpuscular Volume 91, Mean Corpuscular Hemoglobin 28, Mean Corpuscular Hemoglobin Concent 31L, Red Cell Distribution Width 18.8H, Platelet Count 328, Mean Platelet Volume 9.2, Neutrophils (%) (Auto) 60, Lymphocytes (%) (Auto) 22, Monocytes (%) (Auto) 12, Eosinophils (%) (Auto) 4, Basophils (%) (Auto) 1, Neutrophils # (Auto) 5.5, Lymphocytes # (Auto) 2.0, Monocytes # (Auto) 1.1H, Eosinophils # (Auto) 0.4H, Basophils # (Auto) 0.1 01/13/17 04:15: White Blood Count 8.1, Red Blood Count 4.05L, Hemoglobin 11.5L, Hematocrit 36L, Mean Corpuscular Volume 89, Mean Corpuscular Hemoglobin 28, Mean Corpuscular Hemoglobin Concent 32, Red Cell Distribution Width 18.1H, Platelet Count 385, Mean Platelet Volume 9.7, Neutrophils (%) (Auto) 62, Lymphocytes (%) (Auto) 18, Monocytes (%) (Auto) 11, Eosinophils (%) (Auto) 8, Basophils (%) (Auto) 1, Neutrophils # (Auto) 5.0, Lymphocytes # (Auto) 1.5, Monocytes # (Auto) 0.9, Eosinophils # (Auto) 0.6H, Basophils # (Auto) 0.1, Sodium Level 136, Potassium Level 4.4, Chloride Level 104, Carbon Dioxide Level 23, Anion Gap 9, Blood Urea Nitrogen 8, Creatinine 0.81, Estimat Glomerular Filtration Rate > 60, BUN/ Creatinine Ratio 10, Glucose Level 74, Calcium Level 8.0L, Magnesium Level 1.4L , Total Bilirubin 0.3, Aspartate Amino Transf (AST/SGOT) 12, Alanine Aminotransferase (ALT/SGPT) 6, Alkaline Phosphatase 70, Total Protein 4.6L, Albumin 2.0L Conclusion/Plan Hypotension, multifactorial, better at this time, received 2 units of packed RBCs. Continue to monitor blood pressure Anemia, status post transfusion, H&H are better, blood pressure is better. Continue to monitor C. difficile colitis, status post extended left hemicolectomy with Pam procedure, Worse today. Followed by Dr Jaime Short of breath, generalized fatigue and loss of energy. Congestive heart failure, nonischemic cardiomyopathy, acute on chronic left ventricular systolic dysfunction with most recent ejection fraction improved to 50 percent. Maintained on beta gurpreet and Entresto. cannot tolerate beta blockers and/or ARB and/or DARREL inhibitor due to hypotension. Status post anoxic encephalopathy and pneumonia and sepsis early in October, improved with aggressive therapy. Back to his baseline. Continue to monitor. Status post acute renal failure. Improved, monitor renal function closely Peripheral vascular disease with history of nonhealing wounds bilaterally. Peripheral angiogram done 12/04/16 revealed moderate atherosclerotic disease on the left lower extremity, the anterior tibial artery is severely diseased on the left lower extremity but the ulcer on the left lower extremity has healed. Medical therapy is recommended. Moderate disease of the right lower extremity with good flow, with three-vessel flow down to the foot. Continue medical management at this time and continue to monitor. Small infrarenal abdominal aortic aneurysm noted during peripheral angiogram. Continue to monitor Hyperlipidemia, significant weight loss, continue to hold statin and monitor lipids Hyperthyroidism, history of hypothyroidism, managed by primary care physician History of pulmonary hypertension, continue to monitor History of rheumatoid arthritis. COPD, managed and followed by primary care physician Tobaccoism, patient has stopped smoking after the last admission. Encouraged to continue with smoking cessation History of chronic narcotic use, urine drug screen is positive for opioids TORY HALL MD Jan 13, 2017 06:54
[2017-01-13] MEDS ORDERED: RT-ALBUTEROL/IPRATROPIUM 3 ML (DUONEB) VIAL IH PRN (07:00)
[2017-01-13] MEDS ORDERED: CALCIUM CARB + VIT D 600 MG (CALCARB + D) TAB PO SCH (07:15)
[2017-01-13] MEDS ORDERED: PANTOPRAZOLE 40 MG (PROTONIX) TAB PO SCH (07:15)
[2017-01-13] MEDS ORDERED: CARVEDILOL 3.125 MG (COREG) TABLET PO SCH (09:00)
--- NOTE | 2017-01-13 09:19 | Consultation-Hospitalist ---
HPI History of Present Illness: HPI/Chief Complaint CC: Hypotension HPI: This is a 71-year-old white male very medically complex patient was transferred from inpatient rehabilitation unit to the ICU due to recurrent hypotension with severe fatigue for the past 2-3 days. He was unable to dissipate in therapy and required workup for the hypotension that entailed a sepsis workup that revealed normal lactic acid and no pneumonia on chest x-ray but he was placed on empiric antibiotics briefly in case that was the source. He was found to have very low hemoglobin is 7.6 but I initiated 2 units of packed red blood cells that he had an uncomplicated transfusion yesterday. Overall he did not sleep well last night but once to go back to inpatient rehabilitation is Dr. Davis has arranged and I will finalize discharge orders. This patient's prognosis remains extremely poor considering his ejection fraction of 1015 percent and just overall I'm unsure of his recoverability at this point especially due to recurrent acute issues and has been hospitalized 47 days thus far this year. I reviewed all of his labs medication and finalize transfer to inpatient rehabilitation. Source: patient Exam Limitations: no limitations Date Seen 01/13/17 Attending Physician Gabi Brown DO PCP Berry Grajeda MD Referring Physician Date of Admission Jan 12, 2017 at 12:03 Home Medications & Allergies Home Medications Reviewed patient Home Medication Reconciliation Form Allergies Allergies Coded Allergies Sulfa (Sulfonamide Antibiotics) (Unverified Allergy, Unknown, 11/07/16) Past Cdgszzp-Athgsr-Tnnksd Hx Patient Social History Marrital Status: Employed/Student: retired Alcohol Use: Denies Use Recreational Drug Use: No (NONE FOR YEARS) Smoking Status: Former Smoker Type Used: Cigarettes Physical Abuse Screen: No Sexual Abuse: No Recent Foreign Travel: No Contact w/other who traveled: No Recent Hopitalizations: Yes Recent Infectious Disease Expo: No Immunizations Up To Date Date of Pneumonia Vaccine: Mar 04, 2013 Seasonal Allergies Seasonal Allergies: No Surgeries HX Surgeries: Yes Surgeries: Abdominal (subtotal colectomy with colostomy due to pseudomembranous colitis managed by Dr. Jaime), Cardiac, Orthopedic Respiratory Hx Respiratory Disorders: Yes Respiratory Disorders: COPD, Sleep Apnea Cardiovascular Hx Cardiovascular Disorders: Yes (CHF; PULMONARY HTN) Cardiac Disorders: Chronic Edema/Swelling, Coronary Artery Disease, High Cholesterol, Hypertension, Peripheral Vascular Neurological Hx Neurological Disorders: No Reproductive System Hx Reproductive Disorders: No Sexually Transmitted Disease: Yes HIV/AIDS: No Genitourinary Hx Genitourinary Disorders: No Genitourinary Disorders: Renal Failure Gastrointestinal Hx Gastrointestinal Disorders: Yes Gastrointestinal Disorders: Gastroesophageal Reflux, Hemorrhoids Musculoskeletal Hx Musculoskeletal Disorders: Yes (RHEUMATOID ARTHRITIS/OSTEOPOROSIS; BILATERAL OLECRANON BURSITIS) Musculoskeletal Disorders: Osteoporosis, Arthritis, Rheumatoid Arthritis Endocrine Hx Endocrine Disorders: Yes Endocrine Disorders: Hypothyroidsim HEENT HX ENT Disorders: Yes (full set of dentures) Cancer Hx Cancer: No Psychosocial Hx Psychiatric Problems: Yes Behavioral Health Disorders: Anxiety Integumentary HX Skin/Integumentary Disorder: Yes (CHRONIC LEG WOUNDS ) Blood Transfusions Hx Blood Disorders: Yes (ANEMIA) Family Medical History Significant Family History: No Pertinent Family Hx Family Hx: Patient reports no known family medical history. Review of Systems Constitutional: fever, malaise, weakness EENTM: no symptoms reported Respiratory: no symptoms reported Cardiovascular: no symptoms reported Gastrointestinal: no symptoms reported Genitourinary: no symptoms reported Musculoskeletal: no symptoms reported Skin: no symptoms reported Psychiatric/Neurological: No Symptoms Reported All Other Systems Reviewed Negative Unless Noted: Yes Physical Exam Physical Exam Vital Signs Vital Sign - Last 12Hours 01/12/17 12:00 Temp 98.0 Pulse 63 Resp 27 B/P (MAP) 81/48 Pulse Ox 96 O2 Delivery Room Air Capillary Refill : Less Than 3 Seconds General Appearance: No Apparent Distress, WD/WN, Chronically ill, Cachetic Eyes: Bilateral Eye Normal Inspection, Bilateral Eye PERRL HEENT: PERRL/EOMI, Normal ENT Inspection, Pharynx Normal Neck: Full Range of Motion, Normal Inspection, Non Tender, Supple, Carotid Bruit Respiratory: Chest Non Tender, Lungs Clear, Normal Breath Sounds, No Accessory Muscle Use, No Respiratory Distress Cardiovascular: Regular Rate, Rhythm, No Edema, No Gallop, No JVD, No Murmur, Normal Peripheral Pulses Gastrointestinal: Normal Bowel Sounds, No Organomegaly, No Pulsatile Mass, Non Tender, Soft Back: Normal Inspection, No CVA Tenderness, No Vertebral Tenderness Extremity: Normal Capillary Refill, Normal Inspection, Normal Range of Motion, Non Tender, No Calf Tenderness, No Pedal Edema Neurologic/Psychiatric: Alert, Oriented x3, No Motor/Sensory Deficits, Depressed Affect Skin: Normal Color, Warm/Dry Lymphatic: No Adenopathy Results Results/Procedures Lab Laboratory Tests 01/12/17 12:25 01/13/17 04:15 Assessment/Plan Admission Diagnosis Assessment: Status post hypotensive episode with lethargy and malaise for 2-3 days due to severe hypovolemia due to severe anemia of chronic illness 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 Davis Overall poor prognosis and severe debility unsure of recoverability of this patient Assessment and Plan Plan: Transferred inpatient rehabilitation Monitor labs Unable to modify any type of acute issues he hasn't order to prevent significant decompensation and ensure the recoverability of this patient Needs hospice Really not a cardiac arrest CODE BLUE candidate will discuss with palliative care Clinical Quality Measures DVT/VTE Risk/Contraindication: VTE Present on Admission: No Risk Factor Score Per Nursin RFS Level Per Nursing on Admit: 4+=Very High GABI BROWN DO Jan 13, 2017 09:19
[2017-01-13] MEDS ORDERED: CATHETER FLUSH 10 ML SYR IV SCH (14:00)
[2017-01-14] MEDS ORDERED: LEVOTHYROXINE 100 MCG (LEVOTHROID) TAB PO SCH (06:30)
[2017-01-14] MEDS ORDERED: LEVOTHYROXINE 75 MCG (LEVOTHROID) TABLET PO SCH (06:30)
[2017-01-14] MEDS ORDERED: TROUGH ORDER-PHARMACY XX NR (13:00)
== END 2017-01-13 10:40 | DRG 812 ==
LOC: ICU 12:03
PROVIDERS: ADMIT Internal Medicine; ATTEND Internal Medicine
DX: D64.9 Anemia, unspecified (principal); E86.1 Hypovolemia; I95.9 Hypotension, unspecified; E46 Unspecified protein-calorie malnutrition; I50.22 Chronic systolic (congestive) heart failure; I42.9 Cardiomyopathy, unspecified; I73.9 Peripheral vascular disease, unspecified; I71.4 Abdominal aortic aneurysm, without rupture; Z93.3 Colostomy status; E78.5 Hyperlipidemia, unspecified; E03.9 Hypothyroidism, unspecified; I27.2 Other secondary pulmonary hypertension; J44.9 Chronic obstructive pulmonary disease, unspecified; F17.210 Nicotine dependence, cigarettes, uncomplicated
CPT/HCPCS: 36415; 71010; 80053; 83735; 85025; 86850; 86900; 86901; 86920

== ENCOUNTER → 2017-05-05 | Outpatient (CLI) | payer MEDICARE ==
[~2017-05-05] MED LIST changes: +ASPI-999 PO; +BUDE10.2 IH; +CARV12.53 PO; +CITA10TA12 PO; +CITA10TA7 PO; +HYDR25TA4 PO; +LEVO200T6 PO; +LOSA50TA36 PO; +ONDA8TAB12 PO; +OXYC-465 PO; +PANT40TA3 PO; +TAMS0.4C2 PO; +TEMA15CA PO; +TIZA4TAB11 PO
--- NOTE | 2017-05-05 15:31 | Diagnostic Imaging Report ---
PROCEDURE: CT abdomen and pelvis without contrast. TECHNIQUE: Multiple contiguous axial images were obtained through the abdomen and pelvis without the use of intravenous contrast. INDICATION: Pain near the colostomy. COMPARISON: Exam compared with study dated 01/12/2017. FINDINGS: Previously, there was extensive stratified mural edema, wall thickening and pericolonic inflammatory changes associated with the right colon leading to the level of the diverting ostomy. The large bowel proximal to the ostomy diversion did not appear convincingly pathologic at today's exam and there is no evidence for bowel obstruction. No pneumatosis or free air. No parastomal hernia. No acute rectus sheath pathology and no abnormal abdominal wall defect. Renal cortical calcifications nonobstructing and stable. There is no hydronephrosis. The unopacified liver, spleen, adrenals and pancreas are stable. The aorta is atherosclerotic and stable. There is no ascites, abscess, hematoma or other fluid collection. IMPRESSION: Previous substantial features of right-sided colitis have resolved or are no longer apparent. No parastomal abnormality. No bowel, biliary or urinary tract obstruction and no acute finding or adverse interval development. Dictated by: Dictated on workstation # [id number]
== END ==
LOC: RAD 12:37
DX: R10.9 Unspecified abdominal pain (principal); Z93.3 Colostomy status
CPT/HCPCS: 74176

== ENCOUNTER 2017-06-20 13:54 | Outpatient (CLI) | payer MEDICARE ==
[~2017-06-20] VITALS: Ht 172.7 cm; Wt 63.5 kg
[~2017-06-20 13:54] MED LIST changes: -ASPI-999 PO; -BUDE10.2 IH; -CARV12.53 PO; -CITA10TA12 PO; -CITA10TA7 PO; -HYDR25TA4 PO; -LEVO200T6 PO; -LOSA50TA36 PO; -ONDA8TAB12 PO; -OXYC-465 PO; -PANT40TA3 PO; -TAMS0.4C2 PO; -TEMA15CA PO; -TIZA4TAB11 PO
[2017-06-20 14:04] VITALS: BP 110/71
[2017-06-20 14:38] LABS: BASOPHILS % (AUTO) 1 % (0-10); EOSINOPHILS # (AUTO) 0.2 10^3/uL (0.0-0.3); EOSINOPHILS % (AUTO) 3 % (0-10); LYMPHOCYTES # (AUTO) 2.1 X 10^3 (1.0-4.0); LYMPHOCYTES % (AUTO) 27 % (12-44); MEAN CORPUSCULAR HEMOGLOBIN 28 PG (25-34); MEAN CORPUSCULAR HGB CONC 32 G/DL (32-36); MEAN CORPUSCULAR VOLUME 88 FL (80-99); MEAN PLATELET VOLUME 9.7 FL (7.4-10.4); MONOCYTES # (AUTO) 0.8 X 10^3 (0.0-1.0); MONOCYTES % (AUTO) 10 % (0-12); NEUTROPHILS # (AUTO) 4.9 X 10^3 (1.8-7.8); NEUTROPHILS % (AUTO) 61 % (42-75); PLATELET COUNT 263 10^3/uL (130-400); RED BLOOD COUNT 4.03 10^6/uL (4.35-5.85); RED CELL DISTRIBUTION WIDTH 14.3 % (10.0-14.5)
[2017-06-20] MEDS ORDERED: CARV12.53 PO (14:42)
[2017-06-20] MEDS ORDERED: OXYC-465 PO (14:42)
[2017-06-20] MEDS ORDERED: TIZA4TAB11 PO (14:42)
[2017-06-20] MEDS ORDERED: ONDA8TAB12 PO (14:42)
[2017-06-20] MEDS ORDERED: ASPI-999 PO (14:42)
[2017-06-20] MEDS ORDERED: PANT40TA3 PO (14:42)
[2017-06-20] MEDS ORDERED: CITA10TA12 PO (14:42)
[2017-06-20] MEDS ORDERED: LEVO200T6 PO (14:42)
[2017-06-20 14:59] LABS: ANION GAP 7 MMOL/L (5-14); BLOOD UREA NITROGEN 22 MG/DL (7-18); BUN/CREATININE RATIO 23; CALCIUM 9.5 MG/DL (8.5-10.1); CARBON DIOXIDE 31 MMOL/L (21-32); CHLORIDE 103 MMOL/L (98-107); CREATININE SERUM 0.95 MG/DL (0.60-1.30); GFR ESTIMATED > 60; GLUCOSE 90 MG/DL (70-105); POTASSIUM 4.1 MMOL/L (3.6-5.0); SODIUM 141 MMOL/L (135-145)
== END 2017-06-20 14:20 | disposition home or self-care (01) ==
LOC: PREOP 13:54
PROVIDERS: ATTEND Urology
DX: Z01.818 Encounter for other preprocedural examination (principal); K40.90 Unilateral inguinal hernia, without obstruction or gangrene, not specified as recurrent
CPT/HCPCS: 36415; 80048; 85025; 87081

== ENCOUNTER 2017-06-22 07:29 | Day surgery (SDC) | payer MEDICARE ==
[~2017-06-22] VITALS: Ht 172.7 cm; Wt 63.5 kg
[~2017-06-22 07:29] MED LIST changes: +ASPI-999 PO; +CARV12.53 PO; +CITA10TA12 PO; +LEVO200T6 PO; +ONDA8TAB12 PO; +OXYC-465 PO; +PANT40TA3 PO; +TIZA4TAB11 PO
[2017-06-22 07:40] VITALS: BP 119/73
[2017-06-22] MEDS ORDERED: ceFAZolin 2 GM/NS 50 ML IV ONE (07:45)
[2017-06-22] MEDS: LACTATED RINGERS 1,000 ML IV PRN ×2 (07:58→10:18)
[2017-06-22] MEDS ORDERED: FAMOTIDINE 20MG/2ML IV (PEPCID) IV ONE (08:00)
[2017-06-22] MEDS ORDERED: HYDR25TA4 PO (08:02)
[2017-06-22] MEDS ORDERED: BUDE10.2 IH (08:02)
--- NOTE | 2017-06-22 08:19 | Progress Note-Pre Operative ---
Pre-Operative Progress Note H&P Reviewed The H&P was reviewed, patient examined and no changes noted. Time Seen by Provider: 08:13 Date H&P Reviewed: Jun 22, 2017 Time H&P Reviewed: 08:16 Pre-Operative Diagnosis: Left inguinal hernia NATALIYA BOSWELL DO Jun 22, 2017 08:19
[2017-06-22] MEDS ORDERED: LIDOCAINE/EPI 1%-1:200,000 (XYLOCAINE) 10 ML VIAL ONE (09:05)
[2017-06-22] MEDS ORDERED: fentaNYL INJECTION 100 MCG/2 ML AMP ONE (09:09)
[2017-06-22] MEDS ORDERED: LACTATED RINGERS 1,000 ML IV ONE (09:14)
[2017-06-22] MEDS ORDERED: ONDANSETRON 4 MG/2 ML (SDV) Z0FRAN ONE (09:14)
[2017-06-22] MEDS ORDERED: SEVOFLURANE (ULTANE) 15 ML INHAL SOLN ONE (09:14)
[2017-06-22] MEDS ORDERED: proPOfol 200 MG/20 ML (DIPRIVAN) VIAL IV ONE (09:14)
[2017-06-22] MEDS ORDERED: DEXAMETHASONE 10 MG/ML (DECADRON) 1 ML VIAL ONE (09:14)
[2017-06-22] MEDS ORDERED: LIDOCAINE PF 2% 5 ML (XYLOCAINE) VIAL ONE (09:14)
[2017-06-22] MEDS ORDERED: MIDAZOLAM 2 MG/2 ML (VERSED) VIAL ONE (09:15)
[2017-06-22] MEDS ORDERED: fentaNYL INJECTION 100 MCG/2 ML AMP IV ONE (09:30)
--- NOTE | 2017-06-22 10:39 | Progress Note-Post Operative ---
Post-Operative Progess Note Surgeon (s)/Outside Production Inspector (s) Surgeon NATALIYA BOSWELL DO Outside Production Inspector: Ghanshyam Pre-Operative Diagnosis Left inguinal hernia Post-Operative Diagnosis Sliding Left inguinal hernia - indirect, with slight floor weakness Procedure & Operative Findings Date of Procedure 06/22/17 Procedure Performed/Findings LIH with mesh Anesthesia Type LMA Estimated Blood Loss Estimated blood loss (mL): scant Specimens/Packing Specimens Removed hernia sac NATALIYA BOSWELL DO Jun 22, 2017 10:39
--- NOTE | 2017-06-22 10:42 | Discharge Inst-Surgical ---
Discharge Inst-Surgical Depart Medication/Instructions New, Converted or Re-Newed RX: Other (pt has home pain meds already) Patient Instructions Follow up Appt: Make appointment for 1 week. Instructions: No lifting greater than 10 pounds. No strenuous activity. May shower in 24 hours, no tub bath or soaking. Use incentive spirometer at home as directed. No Smoking Skin/Wound Care: May remove bandages in am. You need to leave the Dermabond on over incision it will fall off on its own. Symptoms to Report: Appetite Changes, Extremity Discoloration, Numbness/Tingling, Swelling Increased , Bleeding Excessive, Eyesight Changes, Pain Increased, Urine Color Change, Constipation(Persistent), Fever over 101 degree F, Pain/Pressure in chest, Urinating Difficulty, Cough Up/Vomit Blood, Heart Beat Irreg/Pounding, Pain/ Pressure in jaw, Vaginal Bleeding Increase, Cramps in feet or legs, Lightheadedness, Pain/Pressure in shoulder, Diarrhea(Persistent), Memory Changes Suddenly, Questions/Concerns, Weight gain consecutive days, Dizziness/ Fainting, Nausea/Vomiting, Shortness of Breath, Weight gain over 2 pounds If questions or concerns contact your physician Or seek help at emergency department. Activity Activity as Tolerated: Yes Activity Instructions: Avoid Pulling & Pushing, Avoid Stress to Incision Driving Instructions: No Driving/Refer to Diet Discharge Diet: No Restrictions, Other Diet (increased protein) Diet After 24 Hours: Clear Liquid if Nauseous If Any Problems/Questions/Issu: Contact Your Physician, Go to Emergency Room Skin/Wound Care Infection Signs and Symptoms: Increased Redness, Foul Odor of Wound, Increased Drainage, Skin Itchy or Has a Rash, Increased Swelling, Temperature Above 101 F Bathing Instructions: Shower Stitches/Dee/Dermabond Dis: Dermabond Ice Pack: Ice On and Off Site NATALIYA BOSWELL DO Jun 22, 2017 10:42
[2017-06-22] MEDS ORDERED: ONDANSETRON 4 MG/2 ML (SDV) Z0FRAN IVP PRN (11:00)
[2017-06-22] MEDS ORDERED: morphine INJ 10 MG/ML 1ML (SYR OR VIAL) ONE (11:01)
[2017-06-22] MEDS: morphine INJ 10 MG/ML 1ML (SYR OR VIAL) IVP PRN ×2 (11:10→11:16)
[2017-06-22 11:45] VITALS: BP 148/83
[2017-06-22 12:15] VITALS: BP 134/76
[2017-06-22 12:45] VITALS: BP 148/80
--- NOTE | 2017-06-23 04:15 | OPERATIVE REPORT ---
DATE OF SERVICE: 06/22/2017 PREOPERATIVE DIAGNOSIS: Left inguinal hernia. POSTOPERATIVE DIAGNOSES: Left sliding indirect inguinal hernia, portion of bowel is part of the hernia wall with little bit of floor weakness. SURGEON: Nataliya Jaime DO INTERACTIVE ACCOUNT MANAGER: José Manuel Morrissey DO ANESTHESIA: LMA. SPECIMEN: Hernia sac. BLOOD LOSS: Scant. FLUIDS: Per anesthesia. POSTOPERATIVE CONDITION: Stable. INDICATION FOR PROCEDURE: The patient is a 72-year-old male who had pain and bulge in the left inguinal area, increasing pain and increasing bulge, diagnosis of left inguinal hernia and he wanted to get it fixed right way because of the pain. FINDINGS: The patient actually had a sliding left indirect inguinal hernia, part of bowel was a part of the wall. He also had a little bit of a floor defect as a weakness. PROCEDURE NOTE: After informed consent was obtained, the patient was brought to the operating room, placed on the table in supine position. He was sterilely prepped and draped in normal fashion. Local lidocaine used to perform ilioinguinal nerve block as well as pubic tubercle block, then infiltrated left inguinal region with local and then made an incision with #15 blade, carried down through the skin into subcutaneous tissue and then deepened down through the subcutaneous tissue with Bovie electrocautery down the fascia of the external oblique. The external oblique fascia was then infiltrated with local and then incised to external inguinal ring with Bovie electrocautery. I was able to grasp its sides with hemostat and then dissected under the external oblique fascia to create a pocket. I was then able to get under the cord and cord structures at the pubic tubercle and placed a Sarah drain from an inferolateral direction, started dissecting out superiorly and medially. Looking for the indirect hernia sac, able to find this and then carefully started peeling this off of the cord and cord structures. Noted that there was a small opening down towards the bottom and then realized that the hernia sac had opened, carefully started trying to grasp the hernia sac and then noted there was a piece of bowel poking through. It was a sliding hernia because the bowel was part of the hernia wall. Carefully started taking this bowel off, pushed it back in. I was then able to get the hernia sac with hemostat and mosquitos and then used a 2-0 Vicryl suture to create a pursestring to close the indirect hernia sac. Once this was closed, then cut off the top portion of the hernia sac and passed off the table. Once a small stump retracted back in, then elected to place a left-sided Parietex mesh, trimmed it to fit into the inguinal canal, sutured one to the pubic tubercle, encircled the cord with a precut hole thereby recreating the internal inguinal ring. Placed the rest of the mesh up under the external oblique fascia and laid in nicely, copiously irrigated with normal saline, suctioned this out and then elected to close the external oblique fascia with a 3-0 Vicryl running suture, thereby recreating the external inguinal ring. Then closed Narayan's fascia with 3-0 Vicryl, 2 interrupted sutures and then closed the skin with 4-0 undyed Monocryl in running subcuticular fashion. Area was cleaned and dried, Dermabond placed as well as a pressure dressing. The patient was then transferred to recovery room in stable condition. Sponge, instrument and needle counts correct at the end of the case. Job ID: [id number] DocumentID: [id number] Dictated Date: 06/22/2017 13:53:21 In Home Sales Consultant Date: 06/23/2017 01:45:36 Dictated By: NATALIYA JAIME DO
== END 2017-06-22 12:57 | disposition home or self-care (01) ==
LOC: SDC 07:29
PROVIDERS: ATTEND Surgery
DX: K40.90 Unilateral inguinal hernia, without obstruction or gangrene, not specified as recurrent (principal); I25.10 Atherosclerotic heart disease of native coronary artery without angina pectoris; M06.9 Rheumatoid arthritis, unspecified; J44.9 Chronic obstructive pulmonary disease, unspecified; I11.0 Hypertensive heart disease with heart failure; I50.9 Heart failure, unspecified; E78.2 Mixed hyperlipidemia; I34.0 Nonrheumatic mitral (valve) insufficiency; F17.210 Nicotine dependence, cigarettes, uncomplicated; I27.20 Pulmonary hypertension, unspecified; I73.9 Peripheral vascular disease, unspecified; K21.9 Gastro-esophageal reflux disease without esophagitis; Z93.3 Colostomy status; Z79.82 Long term (current) use of aspirin; Z79.899 Other long term (current) drug therapy
CPT/HCPCS: 94664

== ENCOUNTER 2017-08-08 05:36 | Outpatient (CLI) | payer MEDICARE ==
[~2017-08-08] VITALS: Ht 175.3 cm; Wt 63.5 kg
[~2017-08-08 05:36] MED LIST changes: +BUDE10.2 IH; +HYDR25TA4 PO
[2017-08-08] MEDS ORDERED: CITA10TA7 PO (11:15)
[2017-08-08] MEDS ORDERED: SUCR1TAB PO (11:15)
[2017-08-08] MEDS ORDERED: TEMA15CA PO (11:15)
[2017-08-08] MEDS ORDERED: LOSA50TA36 PO (11:15)
[2017-08-08] MEDS ORDERED: TAMS0.4C2 PO (11:15)
[2017-08-08] MEDS ORDERED: PRAM0.252 PO (11:15)
[2017-08-08] MEDS ORDERED: TIZA6CAP9 PO (11:15)
== END 2017-08-08 11:25 ==
LOC: PREOP 05:36
PROVIDERS: ATTEND Surgery
DX: Z01.818 Encounter for other preprocedural examination (principal); Z87.19 Personal history of other diseases of the digestive system

== ENCOUNTER 2017-08-11 13:07 | Inpatient (IN) | payer MEDICARE ==
[~2017-08-11] VITALS: Ht 175.3 cm; Wt 64.0 kg
[~2017-08-11 13:07] MED LIST changes: +CITA10TA7 PO; +LOSA50TA36 PO; +TAMS0.4C2 PO; +TEMA15CA PO
[2017-08-11] MEDS ORDERED: oxyCODONE/APAP 5/325MG (PERCOCET 5) TABLET PO STA (15:07)
[2017-08-11] MEDS ORDERED: CYCLOBENZAPRINE 10 MG (FLEXERIL) TAB PO STA (15:07)
--- NOTE | 2017-08-11 15:09 | ED GI ---
General Chief Complaint: Abdominal/GI Problems Stated Complaint: COLOSTOMY BAG SWOLLEN AND BLEEDING Nursing Triage Note: Pt reports colostomy is more red and swollen than usual and pt reports he has noticed bloody discharge from colostomy. Pt states he was supposed to have colostomy reversed on Tuesday 08/07 but had to cancel due to 's medical issues. Sepsis Screen: No Definite Risk Source of Information: Patient Exam Limitations: No Limitations History of Present Illness Time Seen By Provider: 14:45 Allergies and Home Medications Allergies Coded Allergies: Sulfa (Sulfonamide Antibiotics) (Unverified Allergy, Mild, GI UPSET, 08/08) Home Medications Aspirin 81 Mg Tab.chew, 81 MG PO DAILY, (Reported) Atorvastatin Calcium 40 Mg Tablet, 40 MG PO HS, (Reported) Budesonide/Formoterol Fumarate 10.2 Gm Hfa.aer.ad, 2 PUFF IH BID, (Reported) Calcium Carbonate/Vitamin D3 1 Each Tablet, 1 TAB PO DAILY, (Reported) Carvedilol 12.5 Mg Tablet, 12.5 MG PO BID, (Reported) Citalopram Hydrobromide 10 Mg Tablet, 10 MG PO DAILY, (Reported) Hydrochlorothiazide 25 Mg Tablet, 25 MG PO DAILY, (Reported) Ipratropium/Albuterol Sulfate 3 Ml Ampul.neb, 3 ML IH Q6H PRN for SHORTNESS OF BREATH, (Reported) Levothyroxine Sodium 200 Mcg Tablet, 200 MCG PO DAILY, (Reported) Losartan Potassium 50 Mg Tablet, 50 MG PO DAILY, (Reported) Morphine Sulfate 30 Mg Tablet.er, 30 MG PO Q8H PRN for SEVERE PAIN, (Reported) Ondansetron HCl 8 Mg Tablet, 8 MG PO Q8H PRN for NAUSEA/VOMITING-1ST LINE, ( Reported) Oxycodone HCl/Acetaminophen 1 Each Tablet, 1 EACH PO Q6H PRN for PAIN-MILD TO MODERATE, (Reported) Pantoprazole Sodium 40 Mg Tablet.dr, 40 MG PO DAILY, (Reported) Potassium Chloride 10 Meq Tab.er.prt, 10 MEQ PO DAILY, (Reported) Pramipexole Di-HCl 0.25 Mg Tablet, 0.25 MG PO DAILY, (Reported) Sucralfate 1 Gm Tablet, 1 GM PO PRN, (Reported) Tamsulosin HCl 0.4 Mg Cap.er.24h, 0.4 MG PO HS, (Reported) Temazepam 15 Mg Capsule, 15 MG PO DAILY, (Reported) Tizanidine HCl 6 Mg Capsule, 6 MG PO TID, (Reported) Past Cltlgxa-Htuphu-Emrgat Hx Patient Social History Type Used: Cigarettes Former Smoker, Quit: Dec 17, 2016 Recent Foreign Travel: No Contact w/Someone Who Travel: No Recent Infectious Disease Expo: No Recent Hopitalizations: Yes (JUN 2017-HERNIA REPAIR) Immunizations Up To Date Date of Pneumonia Vaccine: Aug 08, 2015 Seasonal Allergies Seasonal Allergies: Yes Surgeries History of Surgeries: Yes (L KNEE REPLACEMENT, L WRIST, ANGIOPLASTY, colon resection with colostomy) Surgeries: Abdominal, Cardiac, Orthopedic Respiratory History of Respiratory Disorde: Yes Respiratory Disorders: Chronic Bronchitis, COPD, Emphysema Currently Using CPAP: No Currently Using BIPAP: No Cardiovascular History of Cardiac Disorders: Yes ( PULMONARY HTN) Cardiac Disorders: Chronic Edema/Swelling, Coronary Artery Disease, High Cholesterol, Hypertension, Peripheral Vascular Neurological History of Neurological Disord: No Reproductive System Hx Reproductive Disorders: No Sexually Transmitted Disease: Yes HIV/AIDS: No Genitourinary History of Genitourinary Disor: No Genitourinary Disorders: Renal Failure Gastrointestinal History of Gastrointestinal Di: Yes (colostomy) Gastrointestinal Disorders: Colitis, Gastroesophageal Reflux, Hemorrhoids Musculoskeletal History of Musculoskeletal Dis: Yes (BILATERAL OLECRANON BURSITIS) Musculoskeletal Disorders: Osteoporosis, Arthritis, Rheumatoid Arthritis Endocrine History of Endocrine Disorders: Yes Endocrine Disorders: Hypothyroidsim HEENT History of HEENT Disorders: Yes (GLASSES, DENTURES) Loss of Vision: Bilateral Hearing Impairment: Denies Cancer History of Cancer: No Psychosocial History of Psychiatric Problem: No Behavioral Health Disorders: Anxiety Integumentary History of Skin or Integumenta: Yes (HX LEG WOUNDS) Skin/Integumentary Disorders: Eczema, Psoriasis Blood Transfusions History of Blood Disorders: Yes (HX ANEMIA) Adverse Reaction to a Blood Tr: No (HAS HAD BLOOD WITH NO REACTION) Family Medical History Significant Family History: No Pertinent Family Hx Family Medial History: Patient reports no known family medical history. Physical Exam Vital Signs VS - Last 72 Hours, by Label 08/11/17 13:19 Temp 98.0 Pulse 73 Resp 18 B/P (MAP) 86/48 Pulse Ox 98 O2 Delivery Room Air Capillary Refill : Less Than 3 Seconds Date of ETT Placement: Nov 10, 2016 Time of ETT Placement: 2219 Progress/Results/Core Measures Results/Orders My Orders Orders - YORDAN SMITH Cyclobenzaprine Tablet (Flexeril Tablet) (08/11/17 15:07) Oxycodone/Apap 5/325mg Tablet (Percocet (08/11/17 15:07) Vital Signs/I&O Vital Sign - Last 12Hours 08/11/17 13:19 Temp 98.0 Pulse 73 Resp 18 B/P (MAP) 86/48 Pulse Ox 98 O2 Delivery Room Air Blood Pressure Mean: 61 Departure Departure-Patient Inst. Referrals: ANDREINA MESA MD (PCP/Family) Primary Care Physician YORDAN SMITH Aug 11, 2017 15:09
--- NOTE | 2017-08-11 15:40 | Consultation ---
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 He is scheduled to have colostomy reversal but cancelled that today because his needs to be taken care of at home. He states that 2 days ago the colostomy "came out and has not gone back in"; usually it goes in after a day or so, but not this time. He didn't do anything yesterday because it was a holiday; but figured he should come in today. He states the pain is dull and continuous with occasional sharp shooting pain. There is also some redness surrounding the ostomy and it was hard to place ostomy bag. He rates the pain as 3-4 out of 10, but going up to 7 or 8 when it gets sharp. It is worse when he strains his stomach muscles and better if he can relax and lay flat. He states he is still having stool come out, but still thought he might be constipated. Has also seen blood in the ostomy bag, but thought that was from the edges around colostomy opening and not from the intestine itself. Allergies and Home Medications Allergies Coded Allergies: Sulfa (Sulfonamide Antibiotics) (Unverified Allergy, Mild, GI UPSET, 08/08) Home Medications Aspirin 81 Mg Tab.chew, 81 MG PO DAILY, (Reported) Atorvastatin Calcium 40 Mg Tablet, 40 MG PO HS, (Reported) Budesonide/Formoterol Fumarate 10.2 Gm Hfa.aer.ad, 2 PUFF IH BID, (Reported) Calcium Carbonate/Vitamin D3 1 Each Tablet, 1 TAB PO DAILY, (Reported) Carvedilol 12.5 Mg Tablet, 12.5 MG PO BID, (Reported) Citalopram Hydrobromide 10 Mg Tablet, 10 MG PO DAILY, (Reported) Hydrochlorothiazide 25 Mg Tablet, 25 MG PO DAILY, (Reported) Ipratropium/Albuterol Sulfate 3 Ml Ampul.neb, 3 ML IH Q6H PRN for SHORTNESS OF BREATH, (Reported) Levothyroxine Sodium 200 Mcg Tablet, 200 MCG PO DAILY, (Reported) Losartan Potassium 50 Mg Tablet, 50 MG PO DAILY, (Reported) Morphine Sulfate 30 Mg Tablet.er, 30 MG PO Q8H PRN for SEVERE PAIN, (Reported) Ondansetron HCl 8 Mg Tablet, 8 MG PO Q8H PRN for NAUSEA/VOMITING-1ST LINE, ( Reported) Oxycodone HCl/Acetaminophen 1 Each Tablet, 1 EACH PO Q6H PRN for PAIN-MILD TO MODERATE, (Reported) Pantoprazole Sodium 40 Mg Tablet.dr, 40 MG PO DAILY, (Reported) Potassium Chloride 10 Meq Tab.er.prt, 10 MEQ PO DAILY, (Reported) Pramipexole Di-HCl 0.25 Mg Tablet, 0.25 MG PO DAILY, (Reported) Sucralfate 1 Gm Tablet, 1 GM PO PRN, (Reported) Tamsulosin HCl 0.4 Mg Cap.er.24h, 0.4 MG PO HS, (Reported) Temazepam 15 Mg Capsule, 15 MG PO DAILY, (Reported) Tizanidine HCl 6 Mg Capsule, 6 MG PO TID, (Reported) Past Eqibjta-Glltmz-Vauzcw Hx Patient Social History Alcohol Use: Past History Smoking Status: Former Smoker Former Smoker, Quit: Dec 17, 2016 Type Used: Cigarettes Recent Foreign Travel: No Contact w/Someone Who Travel: No Recent Infectious Disease Expo: No Recent Hopitalizations: Yes (JUN 2017-HERNIA REPAIR) Immunizations Up To Date Date of Pneumonia Vaccine: Aug 08, 2015 Seasonal Allergies Seasonal Allergies: Yes Surgeries History of Surgeries: Yes (L KNEE REPLACEMENT, L WRIST, ANGIOPLASTY, colon resection with colostomy) Surgeries: Abdominal, Cardiac, Orthopedic Respiratory History of Respiratory Disorde: Yes Respiratory Disorders: Chronic Bronchitis, COPD, Emphysema Cardiovascular History of Cardiac Disorders: Yes ( PULMONARY HTN) Cardiac Disorders: Chronic Edema/Swelling, Coronary Artery Disease, High Cholesterol, Hypertension, Peripheral Vascular Neurological History of Neurological Disord: No Reproductive System Hx Reproductive Disorders: No Sexually Transmitted Disease: Yes HIV/AIDS: No Genitourinary History of Genitourinary Disor: No Genitourinary Disorders: Renal Failure Gastrointestinal History of Gastrointestinal Di: Yes (colostomy) Gastrointestinal Disorders: Colitis, Gastroesophageal Reflux, Hemorrhoids Musculoskeletal History of Musculoskeletal Dis: Yes (BILATERAL OLECRANON BURSITIS) Musculoskeletal Disorders: Osteoporosis, Arthritis, Rheumatoid Arthritis Endocrine History of Endocrine Disorders: Yes Endocrine Disorders: Hypothyroidsim HEENT History of HEENT Disorders: Yes (GLASSES, DENTURES) Loss of Vision: Bilateral Hearing Impairment: Denies Cancer History of Cancer: No Psychosocial History of Psychiatric Problem: No Behavioral Health Disorders: Anxiety Integumentary History of Skin or Integumenta: Yes (HX LEG WOUNDS) Skin/Integumentary Disorders: Eczema, Psoriasis Blood Transfusions History of Blood Disorders: Yes (HX ANEMIA) Adverse Reaction to a Blood Tr: No (HAS HAD BLOOD WITH NO REACTION) Family Medical History Significant Family History: No Pertinent Family Hx, Diabetes (Denies mother or father had DM) Family Medial History: Patient reports no known family medical history. Review of Systems-General Constitutional: No chills, No diaphoresis, weakness, weight loss EENTM: No mouth pain, No mouth swelling, No epistaxis, No throat pain Respiratory: No cough, No dyspnea on exertion, No hemoptysis, No short of breath Cardiovascular: No chest pain, edema Gastrointestinal: abdominal pain, constipation, No nausea, No vomiting Genitourinary: frequency, hesitancy Musculoskeletal: back pain, joint pain, joint swelling, muscle stiffness Skin: dryness, No lesions, No lumps Psychiatric/Neurological: Denies Anxiety, Denies Depressed, Headache, Denies Seizure, Denies Tremors Other pt denies any abnormal bruising or bleeding Physical Exam-General Problems Physical Exam Vital Signs Vital Sign - Last 12Hours 08/11/17 13:19 Temp 98.0 Pulse 73 Resp 18 B/P (MAP) 86/48 Pulse Ox 98 O2 Delivery Room Air Capillary Refill : Less Than 3 Seconds General Appearance: WD/WN, mild distress, thin Eyes: Bilateral Eye PERRL, Bilateral Eye EOMI HEENT: pharynx normal, No scleral icterus (R), No scleral icterus (L) Neck: non-tender, limited range of motion (secondary to arthritis), No thyromegaly Respiratory: lungs clear, normal breath sounds, no respiratory distress Cardiovascular: regular rate, rhythm, no murmur Gastrointestinal: normal bowel sounds, soft, no organomegaly, other (ostomy is edematous and large, at least 4 inches from skin edges and 2.5 inches diameter. One are of distal portion has necrosed, but underneath this area and the remainder of ostomy is pink and viable. Opening still patent, with brown stool coming out. ) Back: no CVA tenderness, decreased range of motion Extremities: no calf tenderness, normal capillary refill, pelvis stable, pedal edema (bilaterally, 2-3 pitting edema) Neurologic/Psychiatric: contact clerk II-XII nml as tested, normal mood/affect, oriented x 3 Skin: normal color, warm/dry Lymphatic: no adenopathy (neck, axilla or groin) Assessment/Plan Assessment/Plan Assessment/Plan 1. 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 RA 3. CAD 4. COPD 5. HTN In the ER I attempted manual compression of the edematous intestine; this was unsuccessful. I then placed sugar and waited to see if this would help draw out the excess fluid in the colon and allow it to go back into abdomen. It appeared as if some of the fluid has left intestine, will leave on a little longer and hope it can be reduced. If it does not go down on it's own pt will need to be admitted for observation and then most likely will be prepped on Monday and plan to go ahead with Colostomy reversal on Monday. If the protruding colon starts looking worse or he has any signs of obstruction, then he may need to go to the OR before monday. Pt understood this and all questions answered to his satisfaction. NATALIYA BOSWELL DO Aug 11, 2017 15:40
[2017-08-11] MEDS ORDERED: NS IV 1000 ML 1,000 ML IV ONE (16:19)
[2017-08-11 16:48] LABS: BASOPHILS # (AUTO) 0.1 10^3/uL (0.0-0.1); BASOPHILS % (AUTO) 1 % (0-10); EOSINOPHILS # (AUTO) 0.4 10^3/uL (0.0-0.3); EOSINOPHILS % (AUTO) 4 % (0-10); LYMPHOCYTES # (AUTO) 2.2 X 10^3 (1.0-4.0); LYMPHOCYTES % (AUTO) 24 % (12-44); MEAN CORPUSCULAR HEMOGLOBIN 29 PG (25-34); MEAN CORPUSCULAR HGB CONC 32 G/DL (32-36); MEAN CORPUSCULAR VOLUME 90 FL (80-99); MEAN PLATELET VOLUME 9.5 FL (7.4-10.4); MONOCYTES % (AUTO) 10 % (0-12); NEUTROPHILS # (AUTO) 5.6 X 10^3 (1.8-7.8); NEUTROPHILS % (AUTO) 61 % (42-75); PLATELET COUNT 262 10^3/uL (130-400); RED BLOOD COUNT 3.44 10^6/uL (4.35-5.85); RED CELL DISTRIBUTION WIDTH 14.8 % (10.0-14.5); WHITE BLOOD COUNT 9.2 10^3/uL (4.3-11.0)
[2017-08-11 16:56] LABS: ALANINE AMINOTRANSFERASE 13 U/L (0-55); ALBUMIN 3.2 GM/DL (3.2-4.5); ANION GAP 9 MMOL/L (5-14); ASPARTATE AMINO TRANSFERASE 16 U/L (5-34); BILIRUBIN,TOTAL 0.3 MG/DL (0.1-1.0); BLOOD UREA NITROGEN 22 MG/DL (7-18); BUN/CREATININE RATIO 23; CALCIUM 8.9 MG/DL (8.5-10.1); CARBON DIOXIDE 30 MMOL/L (21-32); CHLORIDE 104 MMOL/L (98-107); CREATININE SERUM 0.96 MG/DL (0.60-1.30); GFR ESTIMATED > 60; GLUCOSE 119 MG/DL (70-105); POTASSIUM 3.9 MMOL/L (3.6-5.0); SODIUM 143 MMOL/L (135-145); TOTAL PROTEIN 6.3 GM/DL (6.4-8.2)
[2017-08-11] MEDS ORDERED: CATHETER FLUSH 10 ML SYR IV PRN (18:15)
[2017-08-11] MEDS ORDERED: fentaNYL INJECTION 100 MCG/2 ML AMP IV PRN (18:15)
[2017-08-11] MEDS: oxyCODONE/APAP 10/325MG (PERCOCET 10) TABLET PO PRN (18:29)
[2017-08-11] MEDS ORDERED: INFLUENZA TRIvalent 2017-2018 0.5 ML/45 MCG SYR IM ONE (18:45)
[2017-08-11 19:45] VITALS: BP 156/71
[2017-08-11 23:09] VITALS: BP 153/84
[2017-08-12] MEDS: oxyCODONE/APAP 10/325MG (PERCOCET 10) TABLET PO PRN ×3 (03:07→21:36)
[2017-08-12 03:28] VITALS: BP 176/88
[2017-08-12 06:12] LABS: BASOPHILS # (AUTO) 0.1 10^3/uL (0.0-0.1); BASOPHILS % (AUTO) 1 % (0-10); EOSINOPHILS # (AUTO) 0.4 10^3/uL (0.0-0.3); EOSINOPHILS % (AUTO) 5 % (0-10); LYMPHOCYTES # (AUTO) 2.4 X 10^3 (1.0-4.0); LYMPHOCYTES % (AUTO) 27 % (12-44); MEAN CORPUSCULAR HEMOGLOBIN 28 PG (25-34); MEAN CORPUSCULAR HGB CONC 31 G/DL (32-36); MEAN CORPUSCULAR VOLUME 90 FL (80-99); MONOCYTES # (AUTO) 0.9 X 10^3 (0.0-1.0); MONOCYTES % (AUTO) 10 % (0-12); NEUTROPHILS % (AUTO) 57 % (42-75); PLATELET COUNT 244 10^3/uL (130-400); RED BLOOD COUNT 3.35 10^6/uL (4.35-5.85); RED CELL DISTRIBUTION WIDTH 14.7 % (10.0-14.5); WHITE BLOOD COUNT 8.7 10^3/uL (4.3-11.0)
[2017-08-12 06:36] LABS: ALANINE AMINOTRANSFERASE 10 U/L (0-55); ANION GAP 10 MMOL/L (5-14); ASPARTATE AMINO TRANSFERASE 16 U/L (5-34); BILIRUBIN,TOTAL 0.3 MG/DL (0.1-1.0); BLOOD UREA NITROGEN 19 MG/DL (7-18); BUN/CREATININE RATIO 22; CALCIUM 8.9 MG/DL (8.5-10.1); CARBON DIOXIDE 28 MMOL/L (21-32); CHLORIDE 104 MMOL/L (98-107); CREATININE SERUM 0.86 MG/DL (0.60-1.30); GFR ESTIMATED > 60; GLUCOSE 80 MG/DL (70-105); POTASSIUM 3.9 MMOL/L (3.6-5.0); SODIUM 142 MMOL/L (135-145); TOTAL PROTEIN 6.2 GM/DL (6.4-8.2)
[2017-08-12 08:00] VITALS: BP 140/74
--- NOTE | 2017-08-12 09:59 | Progress Note ---
Subjective Time Seen by Provider: 09:23 Subjective/Events-last exam Pt seen and examined, sitting up in bed eating breakfast. Denies nausea or vomiting. States pain is across lower abdomen mostly at colostomy; worse when "it feels like something is going to come into bag". He states he has been getting mostly liquid "bloody" and not really any fecal material. Review of Systems General: Fatigue, Malaise Pulmonary: No Dyspnea, No Cough Gastrointestinal: No: Nausea, Vomiting Genitourinary: Dysuria, Frequency, No Hematuria Objective Exam Vital Signs Date Time Temp Pulse Resp B/P (MAP) Pulse Ox O2 Delivery O2 Flow Rate FiO2 08/12/17 08:00 98.0 62 18 140/74 92 Room Air 08/12/17 03:28 97.0 67 16 176/88 92 Room Air 08/11/17 23:09 98.1 63 18 153/84 95 Room Air 08/11/17 19:45 97.5 63 16 156/71 96 Room Air 08/11/17 17:49 81 18 96 08/11/17 15:57 98.0 08/11/17 13:19 98.0 73 18 86/48 98 Room Air Capillary Refill : Less Than 3 Seconds General Appearance: No Apparent Distress, WD/WN HEENT: PERRL/EOMI, Pharynx Normal Respiratory: Lungs Clear, Normal Breath Sounds, No Accessory Muscle Use, No Respiratory Distress Cardiovascular: Regular Rate, Rhythm, No Murmur Gastrointestinal: normal bowel sounds, soft, no organomegaly, other (??if necrosed area has gotten larger, ostomy appears to be in slightly compared to yesterday, still very red and inflamed. Ostomy is still viable, opening still patent ) Neurologic/Psychiatric: Alert, Oriented x3 Results Lab Laboratory Tests 08/11/17 16:30: White Blood Count 9.2, Red Blood Count 3.44L, Hemoglobin 9.8L, Hematocrit 31L, Mean Corpuscular Volume 90, Mean Corpuscular Hemoglobin 29, Mean Corpuscular Hemoglobin Concent 32, Red Cell Distribution Width 14.8H, Platelet Count 262, Mean Platelet Volume 9.5, Neutrophils (%) (Auto) 61, Lymphocytes (%) (Auto) 24, Monocytes (%) (Auto) 10, Eosinophils (%) (Auto) 4, Basophils (%) (Auto) 1, Neutrophils # (Auto) 5.6, Lymphocytes # (Auto) 2.2, Monocytes # (Auto) 1.0, Eosinophils # (Auto) 0.4H, Basophils # (Auto) 0.1, Sodium Level 143, Potassium Level 3.9, Chloride Level 104, Carbon Dioxide Level 30, Anion Gap 9, Blood Urea Nitrogen 22H, Creatinine 0.96, Estimat Glomerular Filtration Rate > 60, BUN/ Creatinine Ratio 23, Glucose Level 119H, Calcium Level 8.9, Total Bilirubin 0.3 , Aspartate Amino Transf (AST/SGOT) 16, Alanine Aminotransferase (ALT/SGPT) 13, Alkaline Phosphatase 63, Total Protein 6.3L, Albumin 3.2, TSH [place] Testing 0.77 08/12/17 05:19: Sodium Level 142, Potassium Level 3.9, Chloride Level 104, Carbon Dioxide Level 28, Anion Gap 10, Blood Urea Nitrogen 19H, Creatinine 0.86, Estimat Glomerular Filtration Rate > 60, BUN/Creatinine Ratio 22, Glucose Level 80, Calcium Level 8.9, Total Bilirubin 0.3, Aspartate Amino Transf (AST/SGOT) 16, Alanine Aminotransferase (ALT/SGPT) 10, Alkaline Phosphatase 61, Total Protein 6.2L, Albumin 3.0L 08/12/17 05:29: White Blood Count 8.7, Red Blood Count 3.35L, Hemoglobin 9.3L, Hematocrit 30L, Mean Corpuscular Volume 90, Mean Corpuscular Hemoglobin 28, Mean Corpuscular Hemoglobin Concent 31L, Red Cell Distribution Width 14.7H, Platelet Count 244, Mean Platelet Volume 10.0, Neutrophils (%) (Auto) 57, Lymphocytes (%) (Auto) 27 , Monocytes (%) (Auto) 10, Eosinophils (%) (Auto) 5, Basophils (%) (Auto) 1, Neutrophils # (Auto) 5.0, Lymphocytes # (Auto) 2.4, Monocytes # (Auto) 0.9, Eosinophils # (Auto) 0.4H, Basophils # (Auto) 0.1 Assessment/Plan Assessment/Plan Assessment/Plan 1. 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 RA 3. CAD 4. COPD 5. HTN Unfortunately it appears like the colostomy is not retracting back into abdomen ; slightly worse but does not need surgery right away. plan to do bowel prep on Monday and go ahead with Colostomy reversal on Monday. If the protruding colon starts looking worse or he has any signs of obstruction, then he may need to go to the OR before monday. Pt understood this and all questions answered to his satisfaction. Clinical Quality Measures DVT/VTE Risk/Contraindication: Risk Factor Score Per Nursin RFS Level Per Nursing on Admit: 4+=Very High NATALIYA BOSWELL DO Aug 12, 2017 09:59
--- NOTE | 2017-08-12 11:31 | History & Physical-Hospitalist ---
HPI History of Present Illness: HPI/Chief Complaint Pt is a 77yoCM with a PMH of CAD, RA, COPD, HTN, and colostomy who presented to the ER for protrusion of his colostomy for the past 2-3 days. He was scheduled to have it reversed on 08/07 but had to cancel to take care of his after she fell. He states this has happened before and it will go back in on it's on in a day or so. This lasted longer than normal and he developed abd pain with it prompting him to seek evaluation in the ER. In the ER Dr Jaime (his primary surgeon) evaluated him and attempted to manually compress the intestine without success. He continued to have pain and was admitted for pain control and prep for reversal. Source: patient, old records Exam Limitations: no limitations Date Seen 08/12/17 Time Seen by Provider: 10:30 Attending Physician Nolberto Parsons MD PCP Andreina Mesa MD Referring Physician Date of Admission Aug 11, 2017 at 4:50 pm Home Medications & Allergies Home Medications Reviewed patient Home Medication Reconciliation Form Allergies Allergies Coded Allergies Sulfa (Sulfonamide Antibiotics) (Verified Allergy, Mild, GI UPSET, 08/11/17) Past Nwhlqpv-Ybzzgt-Tvlbey Hx Patient Social History Marrital Status: Alcohol Use: Past History Recreational Drug Use: No (NONE FOR YEARS) Smoking Status: Former Smoker Former Smoker, Quit: Dec 17, 2016 Type Used: Cigarettes Physical Abuse Screen: No Sexual Abuse: No Recent Foreign Travel: No Contact w/other who traveled: No Recent Hopitalizations: Yes (JUN 2017-HERNIA REPAIR) Recent Infectious Disease Expo: No Immunizations Up To Date Date of Pneumonia Vaccine: Aug 08, 2015 Seasonal Allergies Seasonal Allergies: Yes Surgeries Yes (L KNEE REPLACEMENT, L WRIST, ANGIOPLASTY, colon resection with colostomy) Abdominal, Cardiac, Orthopedic Respiratory Yes COPD, Sleep Apnea Currently Using CPAP: No Currently Using BIPAP: No Cardiovascular Yes ( PULMONARY HTN) Chronic Edema/Swelling, Coronary Artery Disease, High Cholesterol, Hypertension , Peripheral Vascular Neurological No Reproductive System Hx Reproductive Disorders: No Sexually Transmitted Disease: Yes HIV/AIDS: No Genitourinary No Renal Failure Gastrointestinal Yes (colostomy) Colitis, Gastroesophageal Reflux, Hemorrhoids Musculoskeletal Yes (BILATERAL OLECRANON BURSITIS) Osteoporosis, Arthritis, Rheumatoid Arthritis Endocrine History of Endocrine Disorders: Yes Endocrine Disorders: Hypothyroidsim HEENT History of HEENT Disorders: Yes (GLASSES, DENTURES) Loss of Vision: Bilateral Hearing Impairment: Denies Cancer No Psychosocial History of Psychiatric Problem: No Behavioral Health Disorders: Anxiety Integumentary History of Skin or Integumenta: Yes (HX LEG WOUNDS) Skin/Integumentary Disorders: Eczema, Psoriasis Blood Transfusions History of Blood Disorders: Yes (HX ANEMIA) Adverse Reaction to a Blood Tr: No (HAS HAD BLOOD WITH NO REACTION) Family Medical History Significant Family History: No Pertinent Family Hx, Diabetes (Denies mother or father had DM) Family Hx: Patient reports no known family medical history. Review of Systems Constitutional: No chills, No fever EENTM: No blurred vision, No double vision, No nose congestion, No throat pain Respiratory: No cough, No dyspnea on exertion, No short of breath Cardiovascular: No chest pain, No edema, No palpitations Gastrointestinal: see HPI, abdominal pain, No constipation, No diarrhea, No nausea, No vomiting Genitourinary: No dysuria, No frequency Musculoskeletal: No joint pain, No muscle pain Skin: No lesions, No rash Psychiatric/Neurological: Denies Headache, Denies Numbness, Denies Tingling Physical Exam Physical Exam Vital Signs Vital Sign - Last 12Hours 08/11/17 13:19 Temp 98.0 Pulse 73 Resp 18 B/P (MAP) 86/48 Pulse Ox 98 O2 Delivery Room Air Capillary Refill : Less Than 3 Seconds General Appearance: No Apparent Distress, Chronically ill HEENT: PERRL/EOMI, Moist Mucous Membranes Neck: Non Tender, Supple Respiratory: Lungs Clear, No Respiratory Distress Cardiovascular: Regular Rate, Rhythm, No Murmur Gastrointestinal: Normal Bowel Sounds, Non Tender, Soft, Other (colostomy bag in place, protuding intestines appear edematous with some black areas) Extremity: Normal Capillary Refill, No Calf Tenderness Neurologic/Psychiatric: Alert, Oriented x3, Normal Mood/Affect Skin: Normal Color, Warm/Dry Results Results/Procedures Lab Laboratory Tests 08/11/17 16:30 08/12/17 05:19 08/12/17 05:29 Assessment/Plan Admission Diagnosis Colostomy necrosis and edema Diagnosis/Problems Diagnosis/Problems (1) Colostomy necrosis Status: Acute Assessment & Plan: Surgery consulted, appreciate recs Plan for OR on Monday Bowel prep tomorrow Pain control (fentanyl) (2) Hypothyroidism Status: Chronic Assessment & Plan: Continue home Synthroid Qualifiers: Qualified Codes: E03.9 - Hypothyroidism, unspecified (3) CAD (coronary artery disease) Status: Chronic Assessment & Plan: No history of AL or stents Continue Statin, hold any ASA for surgery Qualifiers: Qualified Codes: I25.10 - Atherosclerotic heart disease of [place] coronary artery without angina pectoris (4) Essential (primary) hypertension Status: Chronic Assessment & Plan: Improved control this AM trend (5) Rheumatoid arthritis Status: Chronic Assessment & Plan: Does not appear to be on any DMARDs Continue home pain medicine Qualifiers: Qualified Codes: M06.9 - Rheumatoid arthritis, unspecified (6) COPD (chronic obstructive pulmonary disease) Status: Acute Assessment & Plan: No oxygen requirement at baseline Reports always short of breath though Will need Home 02 qualification prior to DC Qualifiers: Qualified Codes: J44.9 - Chronic obstructive pulmonary disease, unspecified (7) Normocytic anemia Status: Chronic Assessment & Plan: Consider Iron replacement following surgery Has cardiac risk factors (known CAD) so will T&S in prep for surgery Goal to keep Hgb >8.0 Copy Copies To 1: ANDREINA MESA MD Clinical Quality Measures DVT/VTE Risk/Contraindication: Risk Factor Score Per Nursin RFS Level Per Nursing on Admit: 4+=Very High NOLBERTO PARSONS MD Aug 12, 2017 11:31
[2017-08-12 12:00] VITALS: BP 137/85
[2017-08-12] MEDS ORDERED: morphine ER 30 MG (MS CONTIN) TAB PO PRN (13:15)
[2017-08-12] MEDS ORDERED: RT-ALBUTEROL/IPRATROPIUM 3 ML (DUONEB) VIAL IH PRN (13:15)
[2017-08-12] MEDS ORDERED: NON-FORMULARY MEDICATION 1 EA EA (Ondansetron HCl 8 MG) PO PRN (13:15)
[2017-08-12] MEDS ORDERED: ONDANSETRON 4 MG (ZOFRAN) ORAL DISSOLVE TAB PO PRN (13:30)
[2017-08-12] MEDS: HYDROCHLOROTHIAZIDE 25 MG (HCTZ) TAB PO SCH (15:31)
[2017-08-12] MEDS: KCL 10 MEQ TAB (MICRO K) PO SCH (15:31)
[2017-08-12] MEDS: LEVOTHYROXINE 100 MCG (LEVOTHROID) TAB PO SCH (15:31)
[2017-08-12] MEDS: PANTOPRAZOLE 40 MG (PROTONIX) TAB PO SCH (15:31)
[2017-08-12] MEDS: CARVEDILOL 12.5 MG (COREG) TABLET PO SCH ×2 (15:32→21:53)
[2017-08-12] MEDS: LOSARTAN 50 MG (COZAAR) TAB PO SCH (15:32)
[2017-08-12 16:33] VITALS: BP 173/84
[2017-08-12] MEDS ORDERED: ALFUZOSIN HCL 10 MG TAB (UROXATRAL) PO SCH (18:00)
[2017-08-12] MEDS ORDERED: RT-ADVAIR HFA 115/21 MCG PER PUFF IH SCH (20:00)
[2017-08-12 20:21] VITALS: BP 136/78
[2017-08-12] MEDS ORDERED: ATORVASTATIN 40 MG (LIPITOR) TABLET PO SCH (21:00)
[2017-08-12] MEDS ORDERED: RT-SYMBICORT 160/4.5 MCG INHALER PER PUFF IH SCH (21:00)
[2017-08-12] MEDS ORDERED: CARVEDILOL 12.5 MG (COREG) TABLET PO SCH (21:00)
[2017-08-12] MEDS ORDERED: NON-FORMULARY MEDICATION 1 EA EA (Tamsulosin HCl 0.4 MG) PO SCH (21:00)
[2017-08-12] MEDS ORDERED: NON-FORMULARY MEDICATION 1 EA EA (Tizanidine HCl 6 MG) PO SCH (21:00)
[2017-08-12] MEDS ORDERED: PRAMIPEXOLE 0.5 MG TAB (MIRAPEX) PO SCH (21:00)
[2017-08-13] VITALS: BP 136/75
[2017-08-13 04:00] VITALS: BP 165/74
[2017-08-13] MEDS: oxyCODONE/APAP 10/325MG (PERCOCET 10) TABLET PO PRN ×3 (04:26→13:31)
[2017-08-13 05:10] LABS: BASOPHILS # (AUTO) 0.1 10^3/uL (0.0-0.1); BASOPHILS % (AUTO) 1 % (0-10); EOSINOPHILS # (AUTO) 0.3 10^3/uL (0.0-0.3); EOSINOPHILS % (AUTO) 3 % (0-10); LYMPHOCYTES # (AUTO) 2.1 X 10^3 (1.0-4.0); LYMPHOCYTES % (AUTO) 23 % (12-44); MEAN CORPUSCULAR HEMOGLOBIN 28 PG (25-34); MEAN CORPUSCULAR HGB CONC 32 G/DL (32-36); MEAN CORPUSCULAR VOLUME 89 FL (80-99); MEAN PLATELET VOLUME 9.7 FL (7.4-10.4); MONOCYTES # (AUTO) 0.8 X 10^3 (0.0-1.0); MONOCYTES % (AUTO) 9 % (0-12); NEUTROPHILS # (AUTO) 5.9 X 10^3 (1.8-7.8); NEUTROPHILS % (AUTO) 65 % (42-75); PLATELET COUNT 263 10^3/uL (130-400); RED BLOOD COUNT 3.55 10^6/uL (4.35-5.85); RED CELL DISTRIBUTION WIDTH 14.3 % (10.0-14.5); WHITE BLOOD COUNT 9.1 10^3/uL (4.3-11.0)
[2017-08-13 05:28] LABS: ANION GAP 12 MMOL/L (5-14); BLOOD UREA NITROGEN 14 MG/DL (7-18); BUN/CREATININE RATIO 16; CARBON DIOXIDE 28 MMOL/L (21-32); CHLORIDE 102 MMOL/L (98-107); CREATININE SERUM 0.87 MG/DL (0.60-1.30); GFR ESTIMATED > 60; GLUCOSE 84 MG/DL (70-105); POTASSIUM 3.7 MMOL/L (3.6-5.0); SODIUM 142 MMOL/L (135-145)
[2017-08-13] MEDS: LEVOTHYROXINE 100 MCG (LEVOTHROID) TAB PO SCH (06:27)
[2017-08-13] MEDS: PANTOPRAZOLE 40 MG (PROTONIX) TAB PO SCH (06:27)
[2017-08-13] MEDS: KCL 10 MEQ TAB (MICRO K) PO SCH (06:28)
[2017-08-13] MEDS ORDERED: LEVOTHYROXINE 100 MCG (LEVOTHROID) TAB PO SCH (06:30)
[2017-08-13] MEDS ORDERED: PANTOPRAZOLE 40 MG (PROTONIX) TAB PO SCH (07:00)
[2017-08-13] MEDS ORDERED: KCL 10 MEQ TAB (MICRO K) PO SCH (07:00)
[2017-08-13 08:20] VITALS: BP 182/89
[2017-08-13] MEDS ORDERED: NON-FORMULARY MEDICATION 1 EA EA (Pramipexole Di-HCl (Mirapex) 0.25 MG) PO SCH (09:00)
[2017-08-13] MEDS: CARVEDILOL 12.5 MG (COREG) TABLET PO SCH (09:00)
[2017-08-13] MEDS ORDERED: NON-FORMULARY MEDICATION 1 EA EA (Levothyroxine Sodium 200 MCG) PO SCH (09:00)
[2017-08-13] MEDS: LOSARTAN 50 MG (COZAAR) TAB PO SCH (09:00)
[2017-08-13] MEDS ORDERED: HYDROCHLOROTHIAZIDE 25 MG (HCTZ) TAB PO SCH (09:00)
[2017-08-13] MEDS: HYDROCHLOROTHIAZIDE 25 MG (HCTZ) TAB PO SCH (09:00)
[2017-08-13] MEDS ORDERED: LOSARTAN 50 MG (COZAAR) TAB PO SCH (09:00)
[2017-08-13] MEDS ORDERED: NON-FORMULARY MEDICATION 1 EA EA (Potassium Chloride 10 MEQ) PO SCH (09:00)
--- NOTE | 2017-08-13 10:52 | Progress Note-Hospitalist ---
Subjective HPI/CC On Admission Date Seen by Provider: Aug 13, 2017 Time Seen by Provider: 10:45 Pt is a 77yoCM with a PMH of CAD, RA, COPD, HTN, and colostomy who presented to the ER for protrusion of his colostomy for the past 2-3 days. He was scheduled to have it reversed on 08/07 but had to cancel to take care of his after she fell. He states this has happened before and it will go back in on it's on in a day or so. This lasted longer than normal and he developed abd pain with it prompting him to seek evaluation in the ER. In the ER Dr Jaime (his primary surgeon) evaluated him and attempted to manually compress the intestine without success. He continued to have pain and was admitted for pain control and prep for reversal. Subjective/Events-last exam Pt reports doing ok. Still having abd pain and a little nauseated but able to eat. Ready for surgery tomorrow. Objective Exam Vital Signs Vital Sign - Last 12Hours 08/11/17 13:19 Temp 98.0 Pulse 73 Resp 18 B/P (MAP) 86/48 Pulse Ox 98 O2 Delivery Room Air Capillary Refill : Less Than 3 Seconds General Appearance: No Apparent Distress, WD/WN Respiratory: Lungs Clear, No Respiratory Distress Cardiovascular: Regular Rate, Rhythm, No Murmur Gastrointestinal: Normal Bowel Sounds, Non Tender, Soft, Other (colostomy in place, persistent protrusion of intestines with edema and distal necrosis) Extremity: Non Tender, No Calf Tenderness Neurologic/Psychiatric: Alert, Oriented x3 Results/Procedures Lab Laboratory Tests 08/13/17 04:34 Assessment/Plan Assessment and Plan Assess & Plan/Chief Complaint colostomy necrosis Diagnosis/Problems Diagnosis/Problems (1) Colostomy necrosis Status: Acute Assessment & Plan: Surgery consulted, appreciate recs Plan for OR on tomorrow Bowel prep today Pain control (fentanyl) (2) Hypothyroidism Status: Chronic Assessment & Plan: Continue home Synthroid Qualifiers: Qualified Codes: E03.9 - Hypothyroidism, unspecified (3) CAD (coronary artery disease) Status: Chronic Assessment & Plan: No history of [place] or stents Continue Statin, hold any ASA for surgery Qualifiers: Qualified Codes: I25.10 - Atherosclerotic heart disease of [place] coronary artery without angina pectoris (4) Essential (primary) hypertension Status: Chronic Assessment & Plan: Elevated this AM before meds but otherwise within goal (5) Rheumatoid arthritis Status: Chronic Assessment & Plan: Does not appear to be on any DMARDs Continue home pain medicine Qualifiers: Qualified Codes: M06.9 - Rheumatoid arthritis, unspecified (6) COPD (chronic obstructive pulmonary disease) Status: Acute Assessment & Plan: No oxygen requirement at baseline Reports always short of breath though Will need Home 02 qualification prior to DC Qualifiers: Qualified Codes: J44.9 - Chronic obstructive pulmonary disease, unspecified (7) Normocytic anemia Status: Chronic Assessment & Plan: Consider Iron replacement following surgery Has cardiac risk factors (known CAD) so will T&S in prep for surgery Goal to keep Hgb >8.0 NOLBERTO GONZALEZ MD Aug 13, 2017 10:52 am
[2017-08-13] MEDS ORDERED: ONDANSETRON 4 MG/2 ML (SDV) Z0FRAN IVP PRN (11:00)
[2017-08-13 12:00] VITALS: BP 115/69
--- NOTE | 2017-08-13 12:54 | Progress Note ---
Subjective Time Seen by Provider: 12:42 Subjective/Events-last exam Pt seen and examined, denies pain and states he feels much better. He is asking if he can go home to take care of his . Tolerating diet. Review of Systems General: No Chills, No Night Sweats Pulmonary: No Dyspnea, No Cough Cardiovascular: No: Chest Pain, Palpitations Gastrointestinal: No: Nausea, Vomiting, Abdominal Pain Objective Exam Vital Signs Date Time Temp Pulse Resp B/P (MAP) Pulse Ox O2 Delivery O2 Flow Rate FiO2 08/13/17 08:20 98.4 61 20 182/89 97 Room Air 08/13/17 04:00 98.4 67 22 165/74 94 Room Air 08/13/17 00:00 98.0 56 20 136/75 96 Room Air 08/12/17 20:21 98.9 63 16 136/78 95 Room Air 08/12/17 16:33 97.3 59 18 173/84 96 Room Air Capillary Refill : Less Than 3 Seconds General Appearance: No Apparent Distress, WD/WN HEENT: PERRL/EOMI, Moist Mucous Membranes Neck: Non Tender, Supple Respiratory: Lungs Clear, No Respiratory Distress Cardiovascular: Regular Rate, Rhythm, No Murmur Gastrointestinal: normal bowel sounds, soft, no organomegaly, other (Ostomy appears to be back to normal, no necrotic areas, not edematous or swollen) Extremity: Non Tender, No Calf Tenderness Neurologic/Psychiatric: Alert, Oriented x3 Skin: Normal Color, Warm/Dry Results Lab Laboratory Tests 08/13/17 04:34: White Blood Count 9.1, Red Blood Count 3.55L, Hemoglobin 10.0L, Hematocrit 32L, Mean Corpuscular Volume 89, Mean Corpuscular Hemoglobin 28, Mean Corpuscular Hemoglobin Concent 32, Red Cell Distribution Width 14.3, Platelet Count 263, Mean Platelet Volume 9.7, Neutrophils (%) (Auto) 65, Lymphocytes (%) (Auto) 23, Monocytes (%) (Auto) 9, Eosinophils (%) (Auto) 3, Basophils (%) (Auto) 1, Neutrophils # (Auto) 5.9, Lymphocytes # (Auto) 2.1, Monocytes # (Auto) 0.8, Eosinophils # (Auto) 0.3, Basophils # (Auto) 0.1, Sodium Level 142, Potassium Level 3.7, Chloride Level 102, Carbon Dioxide Level 28, Anion Gap 12, Blood Urea Nitrogen 14, Creatinine 0.87, Estimat Glomerular Filtration Rate > 60, BUN/ Creatinine Ratio 16, Glucose Level 84, Calcium Level 9.0 Assessment/Plan Assessment/Plan Assessment/Plan 1. Colostomy seems to be back to normal 2. RA 3. CAD 4. COPD 5. HTN Pt would like to go home and cancel Colostomy reversal on Monday, plan to do procedure once his is better and can take care of herself. If the protruding colon starts looking worse again or he has any signs of obstruction, then he should return to ER or call my office. Will D/C pt home today;all questions answered to his satisfaction. Clinical Quality Measures DVT/VTE Risk/Contraindication: Risk Factor Score Per Nursin RFS Level Per Nursing on Admit: 4+=Very High NATALIYA BOSWELL DO Aug 13, 2017 12:54
--- NOTE | 2017-08-13 12:57 | Discharge Inst-Surgical ---
Discharge Inst-Surgical Depart Medication/Instructions New, Converted or Re-Newed RX: Other (NO Rx needed, continue home meds.) Patient Instructions Follow up Appt: Make appointment for 1 week. Instructions: No lifting greater than 10 pounds. No strenuous activity. May shower in 24 hours, no tub bath or soaking. Use incentive spirometer at home as directed. No Smoking Skin/Wound Care: Monitor ostomy for repeat of problems. Symptoms to Report: Appetite Changes, Extremity Discoloration, Numbness/Tingling, Swelling Increased , Bleeding Excessive, Eyesight Changes, Pain Increased, Urine Color Change, Constipation(Persistent), Fever over 101 degree F, Pain/Pressure in chest, Urinating Difficulty, Cough Up/Vomit Blood, Heart Beat Irreg/Pounding, Pain/ Pressure in jaw, Vaginal Bleeding Increase, Cramps in feet or legs, Lightheadedness, Pain/Pressure in shoulder, Diarrhea(Persistent), Memory Changes Suddenly, Questions/Concerns, Weight gain consecutive days, Dizziness/ Fainting, Nausea/Vomiting, Shortness of Breath, Weight gain over 2 pounds If questions or concerns contact your physician Or seek help at emergency department. Activity Activity as Tolerated: Yes Diet Discharge Diet: No Restrictions (increase protein) If Any Problems/Questions/Issu: Contact Your Physician, Go to Emergency Room Skin/Wound Care Infection Signs and Symptoms: Increased Redness, Foul Odor of Wound, Increased Drainage, Increased Swelling, Temperature Above 101 F Bathing Instructions: NATALIYA Sullivan DO Aug 13, 2017 12:56
[2017-08-13 14:45] VITALS: BP 110/68
[2017-08-13 15:15] VITALS: BP 110/68
== END 2017-08-13 15:30 | disposition home or self-care (01) | DRG 395 ==
LOC: EDUNIT# 13:07 → ER 13:09 → 4TH 16:50
PROVIDERS: ADMIT Family Medicine; ATTEND Family Medicine
DX: K94.03 Colostomy malfunction (principal); J43.9 Emphysema, unspecified; I27.20 Pulmonary hypertension, unspecified; I25.10 Atherosclerotic heart disease of native coronary artery without angina pectoris; I10 Essential (primary) hypertension; E78.00 Pure hypercholesterolemia, unspecified; I73.9 Peripheral vascular disease, unspecified; K21.9 Gastro-esophageal reflux disease without esophagitis; M81.0 Age-related osteoporosis without current pathological fracture; M06.9 Rheumatoid arthritis, unspecified; E03.9 Hypothyroidism, unspecified; F41.9 Anxiety disorder, unspecified; D64.9 Anemia, unspecified; L30.9 Dermatitis, unspecified; L40.9 Psoriasis, unspecified; Z87.891 Personal history of nicotine dependence
CPT/HCPCS: 36415; 80048; 80053; 84443; 85025; 99284

== ENCOUNTER 2018-02-09 05:40 | Outpatient (CLI) | payer MEDICARE ==
[~2018-02-09] VITALS: Ht 175.3 cm; Wt 67.1 kg
== END 2018-02-09 10:58 ==
LOC: PREOP 05:40
PROVIDERS: ATTEND Surgery
DX: Z01.818 Encounter for other preprocedural examination (principal)

== ENCOUNTER 2018-02-13 09:56 | Inpatient (IN) | payer MEDICARE ==
[~2018-02-13] VITALS: Ht 175.3 cm; Wt 67.1 kg
[2018-02-13 10:04] VITALS: BP 95/72
[2018-02-13] MEDS ORDERED: ceFAZolin 2 GM IV Premixed 50 ML IV ONE (10:15)
[2018-02-13 10:29] LABS: BASOPHILS # (AUTO) 0.1 10^3/uL (0.0-0.1); BASOPHILS % (AUTO) 1 % (0-10); EOSINOPHILS # (AUTO) 0.2 10^3/uL (0.0-0.3); EOSINOPHILS % (AUTO) 3 % (0-10); HEMATOCRIT 35 % (40-54); HEMOGLOBIN 10.8 G/DL (13.3-17.7); LYMPHOCYTES # (AUTO) 1.5 X 10^3 (1.0-4.0); LYMPHOCYTES % (AUTO) 17 % (12-44); MEAN CORPUSCULAR HEMOGLOBIN 28 PG (25-34); MEAN CORPUSCULAR HGB CONC 31 G/DL (32-36); MEAN CORPUSCULAR VOLUME 90 FL (80-99); MEAN PLATELET VOLUME 8.9 FL (7.4-10.4); MONOCYTES # (AUTO) 0.6 X 10^3 (0.0-1.0); MONOCYTES % (AUTO) 7 % (0-12); NEUTROPHILS # (AUTO) 6.3 X 10^3 (1.8-7.8); NEUTROPHILS % (AUTO) 73 % (42-75); PLATELET COUNT 268 10^3/uL (130-400); RED BLOOD COUNT 3.82 10^6/uL (4.35-5.85); RED CELL DISTRIBUTION WIDTH 16.4 % (10.0-14.5); WHITE BLOOD COUNT 8.6 10^3/uL (4.3-11.0)
[2018-02-13] MEDS ORDERED: proPOfol 200 MG/20 ML (DIPRIVAN) VIAL IV ONE (10:36)
[2018-02-13] MEDS ORDERED: ONDANSETRON 4 MG/2 ML (SDV) Z0FRAN ONE ×2 (10:36→13:40)
[2018-02-13] MEDS ORDERED: LIDOCAINE PF 2% 5 ML (XYLOCAINE) VIAL ONE (10:36)
[2018-02-13] MEDS ORDERED: fentaNYL INJECTION 100 MCG/2 ML AMP ONE ×4 (10:37→16:54)
[2018-02-13] MEDS ORDERED: SEVOFLURANE (ULTANE) 15 ML INHAL SOLN ONE ×9 (10:37→13:03)
[2018-02-13] MEDS ORDERED: DEXAMETHASONE 10 MG/ML (DECADRON) 1 ML VIAL ONE (10:37)
[2018-02-13] MEDS ORDERED: MIDAZOLAM 2 MG/2 ML (VERSED) VIAL ONE (10:38)
[2018-02-13 10:46] LABS: BUN/CREATININE RATIO 16; CALCIUM 9.3 MG/DL (8.5-10.1); CARBON DIOXIDE 28 MMOL/L (21-32); CHLORIDE 105 MMOL/L (98-107); GFR ESTIMATED > 60; GLUCOSE 102 MG/DL (70-105); POTASSIUM 4.1 MMOL/L (3.6-5.0); SODIUM 141 MMOL/L (135-145)
[2018-02-13] MEDS ORDERED: LIDOCAINE/EPI 1%-1:200,000 (XYLOCAINE) 10 ML VIAL ONE (10:48)
--- NOTE | 2018-02-13 10:48 | Progress Note-Pre Operative ---
Pre-Operative Progress Note H&P Reviewed The H&P was reviewed, patient examined and no changes noted. Time Seen by Provider: 10:46 Date H&P Reviewed: February 13, 2018 Time H&P Reviewed: 10:47 Pre-Operative Diagnosis: Colostomy, prolapse of intestine NATALIYA BOSWELL DO February 13, 2018 10:47
[2018-02-13] MEDS: LACTATED RINGERS 1,000 ML IV PRN ×2 (10:54→11:50)
[2018-02-13] MEDS ORDERED: ROCURONIUM 10 MG/ML 5 ML SYRINGE IV ONE (12:38)
[2018-02-13] MEDS ORDERED: GLYCOPYRROLATE 0.2 MG/ML (ROBINUL) 2 ML VIAL ONE (12:58)
[2018-02-13] MEDS ORDERED: NEOSTIGMINE 1 MG/ML 5 ML SYRINGE ONE (12:58)
--- NOTE | 2018-02-13 13:26 | Progress Note-Post Operative ---
Post-Operative Progess Note Surgeon (s)/Hull Molder (s) Surgeon NATALIYA BOSWELL DO Hull Molder: Ghanshyam Pre-Operative Diagnosis Colostomy, prolapse of intestine Post-Operative Diagnosis Same Procedure & Operative Findings Date of Procedure 02/13/18 Procedure Performed/Findings Colostomy takedown with primary [place]-Rectal anastomosis Anesthesia Type GET Estimated Blood Loss Estimated blood loss (mL): appx 50ml Specimens/Packing Specimens Removed portion of colon NATALIYA BOSWELL DO February 13, 2018 13:26
[2018-02-13] MEDS ORDERED: ceFAZolin 2 GM IV Premixed 50 ML IV SCH (13:30)
[2018-02-13] MEDS ORDERED: ENOXAPARIN 40 MG/0.4 ML (LOVENOX) SYR SC SCH (13:30)
[2018-02-13] MEDS ORDERED: HYDROmorphone 1 MG/ML (DILAUDID) 1 ML SYRINGE ONE (13:40)
[2018-02-13] MEDS ORDERED: KETOROLAC 30 MG/ML VIAL ONE (13:42)
[2018-02-13] MEDS ORDERED: MEPERIDINE (DEMEROL) INJ 50 MG/ML IVP PRN (13:45)
[2018-02-13] MEDS ORDERED: ONDANSETRON 4 MG/2 ML (SDV) Z0FRAN IVP PRN (13:45)
[2018-02-13] MEDS: KETOROLAC 30 MG/ML VIAL IVP SCH ×2 (13:49→20:31)
[2018-02-13] MEDS: HYDROmorphone 1 MG/ML (DILAUDID) 1 ML SYRINGE IV PRN ×2 (13:49→14:04)
[2018-02-13] MEDS: fentaNYL INJECTION 100 MCG/2 ML AMP IVP PRN ×2 (13:57→14:16)
[2018-02-13] MEDS: LACTATED RINGERS 1,000 ML IV SCH ×2 (14:06→22:57)
[2018-02-13 15:05] VITALS: BP 171/84
[2018-02-13] MEDS ORDERED: morphine INJ 4 MG/ML 1 ML (VIAL/SYRINGE) ONE (15:08)
[2018-02-13] MEDS: morphine INJ 10 MG/ML 1ML (SYR OR VIAL) IVP PRN ×4 (15:15→22:17)
[2018-02-13] MEDS: ACETAMINOPHEN 500 MG TAB (TYLENOL) PO SCH ×2 (15:20→22:17)
[2018-02-13 15:45] VITALS: BP 189/88
[2018-02-13] MEDS ORDERED: METH2.5T PO (16:01)
[2018-02-13] MEDS: ceFAZolin 2 GM IV Premixed 50 ML IV SCH (17:07)
[2018-02-13 19:25] VITALS: BP 184/89
--- NOTE | 2018-02-13 20:49 | OPERATIVE REPORT ---
DATE OF SERVICE: PREOPERATIVE DIAGNOSES: Colostomy status and prolapse of colon. POSTOPERATIVE DIAGNOSES: Colostomy status and prolapse of colon, adhesions. PROCEDURE: Colostomy takedown with colorectal anastomosis. SURGEON: Daniel Jaime DO. RESPIRATORY SCIENTIST: Dr. Morrissey. ANESTHESIA: General endotracheal tube. SPECIMEN: Portion of the colon. BLOOD LOSS: Less than 50 mL. FLUIDS: Per anesthesia. POSTOPERATIVE CONDITION: Stable. INDICATION FOR PROCEDURE: The patient is a 72-year-old male who had a colostomy for Clostridium difficile colitis starting to have some pretty large prolapse of the colon through this ostomy and wants to get this fixed. FINDINGS: The patient had adhesions from previous surgery. Colostomy was reversed without any difficulty. PROCEDURE NOTE: After informed consent was obtained, the patient was brought to the operating room, placed on table in lithotomy position, sterilely prepped and draped in normal fashion. Made incision in the midline wound with a #15 blade, carried down to skin into subcutaneous tissue starting right at the umbilicus, carried superiorly through the previous incision down through the skin into subcutaneous tissue, then deepened down to subcutaneous tissue with Bovie electrocautery down to fascia. Fascia incised with Bovie electrocautery, then bluntly entered the abdomen and then increased the incision with Bovie electrocautery. I used my finger to protect the bowel. Noted adhesions in the midline, some omentum in small intestine. This was carefully taken out with Bovie electrocautery as well as with blunt dissection and then the LigaSure. Once this was taken down, then able to place the GelPort. First placed the port in the midline just subxiphoid, injected the skin with local, made incision with #11 blade and then used a 12 mm VersaStep system under direct visualization. I then placed the GelPort in with the wound protector and then created pneumoperitoneum and then placed the second port in left lower quadrant using local lidocaine, 11-blade for stab incision and the VersaStep system 12 mm port under direct visualization. The patient then placed slightly Trendelenburg. Continued to take down the adhesions, finally get all the adhesions out. There is some small intestine that was also stuck down in the pelvis, able to get this out and then started freeing up the colostomy coming across the tissue with a LigaSure in a stepwise fashion clamping, coagulating and then transecting and then in this fashion freeing up, so just intestine going through the opening. Placed an anvil through the colostomy and then inside used the Endo-MYRA to fire across, used 3 to fire across to be able to get all the way across to then transect this colostomy, then able to grasp this intestine through the midline incision, pull the trocar port through. Then, Dr. Morrissey went below and was able to use some dilators to get up into the stump of the rectum. There was a little bit of fecal material or leftover material. This was carefully taken out and then the rectum was dilated. I took down some of the adhesions to get the right, what was left of the ascending colon, freed up, so it go easily into the pelvis and then brought the EEA 29 stapler in and then opened the trocar through the distal portion, came out and then attached the anvil to the trocar and then tightened this down, held for 30 seconds, then clamped and fired, held for 20 seconds and then turned 3/4 carefully pull this out. Had made sure that the colon was not twisted. It laid in very nicely, was not on any tension. At this point, placed some fluid in the pelvis. Dr. Morrissey used a rigid sigmoidoscope to then blow air into the rectum. I held the ascending colon just above the anastomosis. The area blew up with air. There was no leak, pressed carefully on the colon, again no air leak and at this point then removed the sigmoidoscope, suctioned out the fluid. I then placed the patient supine. At this point, then elected to close the midline incision, closed with a #1 double stranded PDS suture running from superior portion to the inferior portion tying to itself. Then irrigated the incision and then closed the skin with анна, placed occlusive dressing across this and then turned our attention to the colostomy. We made an elliptical incision to cut out the colostomy down to the fascia and then removed this easily, passed this off the table and then closed the posterior fascia with a #1 double stranded PDS suture running superiorly and inferiorly and then closed the anterior fascia with two [id number] 0 Vicryl sutures closed nicely, copiously irrigated with normal saline and then closed the skin with анна loosely. There were 2 good donuts on the EEA stapler. At this point, then created pneumoperitoneum again and looked inside, again saw no tension on the anastomosis. Midline incision looked closed and at this point then removed all ports under direct visualization, irrigated the incisions with normal saline and then closed these two small 10 mm incisions with анна. Area was cleaned and dried. A dressing was placed and the patient was then transferred to recovery room in stable condition. Sponge and needle count correct at the end of the case. Dr. Morrissey assisted in this case helping to make incisions, identifying anatomy, help with the anastomosis and closed incisions. Job ID: [id number] DocumentID: [id number] Dictated Date: 02/13/2018 15:02:06 Manager Biostatistics Date: 02/13/2018 20:49:16 Dictated By: DANIEL JAIME DO
[2018-02-14] VITALS: BP 166/86
[2018-02-14] MEDS: morphine INJ 10 MG/ML 1ML (SYR OR VIAL) IVP PRN ×6 (00:57→17:32)
[2018-02-14] MEDS: ceFAZolin 2 GM IV Premixed 50 ML IV SCH (02:21)
[2018-02-14] MEDS: ONDANSETRON 4 MG/2 ML (SDV) Z0FRAN IVP PRN ×2 (03:09→09:53)
[2018-02-14 04:00] VITALS: BP 178/87
[2018-02-14] MEDS: KETOROLAC 30 MG/ML VIAL IVP SCH ×4 (04:40→19:48)
[2018-02-14 07:36] VITALS: BP 175/91
[2018-02-14] MEDS: ACETAMINOPHEN 500 MG TAB (TYLENOL) PO SCH ×3 (08:11→21:34)
[2018-02-14] MEDS ORDERED: PANTOPRAZOLE 40 MG/10 ML (PROTONIX) VIAL IVP SCH (09:00)
[2018-02-14] MEDS: LACTATED RINGERS 1,000 ML IV SCH ×3 (09:12→21:35)
--- NOTE | 2018-02-14 10:29 | Progress Note ---
Subjective Time Seen by Provider: 10:10 Subjective/Events-last exam Pt seen and examined, denies nausea or vomiting. Urinating after philippe removed. Main complaint is abdominal pain, also has back pain (his normal pain). No flatus or BM yet. Review of Systems General: No Chills, No Night Sweats Pulmonary: No Dyspnea, No Cough Cardiovascular: No: Chest Pain Objective Exam Vital Signs Date Time Temp Pulse Resp B/P (MAP) Pulse Ox O2 Delivery O2 Flow Rate FiO2 02/14/18 07:36 99.1 76 20 175/91 (119) 96 Nasal Cannula 2.00 02/14/18 04:00 98.8 79 19 178/87 (117) 97 Nasal Cannula 2.00 02/14/18 00:00 99.8 72 17 166/86 (112) 95 Nasal Cannula 2.00 02/13/18 20:30 Nasal Cannula 02/13/18 19:25 97.3 77 18 184/89 (120) 99 Nasal Cannula 2.00 02/13/18 15:45 96.3 71 16 189/88 (121) 90 Room Air 02/13/18 15:40 90 Room Air 02/13/18 15:05 96.9 66 18 171/84 (113) 90 Room Air 02/13/18 14:16 98.2 02/13/18 13:57 98.2 02/13/18 13:49 98.2 I & O 02/14/18 07:00 Intake Total 1150 ml Output Total 1975 ml Balance -825 ml Capillary Refill : Greater Than 3 Seconds General Appearance: Mild Distress Respiratory: Lungs Clear, Normal Breath Sounds, No Respiratory Distress Cardiovascular: Regular Rate, Rhythm Gastrointestinal: soft, distended (mild), tenderness (diffusely, but mostly at incision) Assessment/Plan Assessment/Plan Assessment/Plan S/P Colostomy reversal Pt encouraged to use IS, ambulate at least QID, continue clears. Will start pain meds from home (to try and help back pain) unfortunately these will most likely delay return of bowel fxn. Will ck with his primary doctor regarding HTN meds. Clinical Quality Measures DVT/VTE Risk/Contraindication: Risk Factor Score Per Nursin RFS Level Per Nursing on Admit: 4+=Very High NATALIYA BOSWELL DO February 14, 2018 10:29
[2018-02-14] MEDS ORDERED: RT-ALBUTEROL/IPRATROPIUM 3 ML (DUONEB) VIAL IH PRN (10:30)
[2018-02-14] MEDS ORDERED: NON-FORMULARY MEDICATION 1 EA EA (Tizanidine HCl 6 MG) PO PRN (10:30)
[2018-02-14] MEDS: morphine ER 30 MG (MS CONTIN) TAB PO PRN ×2 (11:05→21:34)
[2018-02-14] MEDS: LOSARTAN 50 MG (COZAAR) TAB PO SCH (11:13)
[2018-02-14] MEDS: HYDROCHLOROTHIAZIDE 25 MG (HCTZ) TAB PO SCH (11:13)
--- NOTE | 2018-02-14 11:17 | Anesthesia-General Post-Op ---
General Patient Condition Mental Status/LOC: Same as Preop Cardiovascular: Satisfactory Nausea/Vomiting: Absent Respiratory: Satisfactory Pain: Controlled Complications: Absent Post Op Complications Complications None Follow Up Care/Instructions Patient Instructions None needed. Anesthesia/Patient Condition Patient Condition Patient is doing well, no complaints, stable vital signs, no apparent adverse anesthesia problems. No complications reported per nursing. D/C home per [facility] Criteria: Yes SARAH LANGSTON CRNA February 14, 2018 11:17
[2018-02-14 12:38] VITALS: BP 175/93
[2018-02-14] MEDS: ENOXAPARIN 30 MG/0.3 ML (LOVENOX) SYR SC SCH (12:46)
[2018-02-14 15:45] VITALS: BP 179/88
[2018-02-14] MEDS: RT-ADVAIR HFA 115/21 MCG PER PUFF IH SCH (18:47)
[2018-02-14 19:20] VITALS: BP 173/85
[2018-02-14] MEDS ORDERED: NON-FORMULARY MEDICATION 1 EA EA (Budesonide/Formoterol Fumarate (Symbicort 160-4.5 Mcg In IH SCH (21:00)
[2018-02-14] MEDS ORDERED: NON-FORMULARY MEDICATION 1 EA EA (Temazepam 15 MG) PO SCH (21:00)
[2018-02-14] MEDS: TEMAZEPAM 15 MG (RESTORIL) CAP PO SCH (21:33)
[2018-02-14] MEDS: CARVEDILOL 12.5 MG (COREG) TABLET PO SCH (21:33)
[2018-02-14] MEDS: TAMSULOSIN 0.4 MG (FLOMAX) CAP PO SCH (21:33)
[2018-02-15] VITALS (7 sets, daily range): BP systolic 96–182; BP diastolic 71–98
[2018-02-15] MEDS: morphine INJ 10 MG/ML 1ML (SYR OR VIAL) IVP PRN ×2 (01:10→04:45)
[2018-02-15] MEDS: KETOROLAC 30 MG/ML VIAL IVP SCH ×2 (01:10→08:19)
[2018-02-15] MEDS: ACETAMINOPHEN 500 MG TAB (TYLENOL) PO SCH (04:45)
[2018-02-15] MEDS: PANTOPRAZOLE 40 MG (PROTONIX) TAB PO SCH (04:45)
[2018-02-15] MEDS: LEVOTHYROXINE 100 MCG (LEVOTHROID) TAB PO SCH (04:46)
[2018-02-15] MEDS: LACTATED RINGERS 1,000 ML IV SCH (04:46)
[2018-02-15] MEDS: morphine ER 30 MG (MS CONTIN) TAB PO PRN ×2 (06:54→21:30)
[2018-02-15] MEDS: PRAMIPEXOLE 0.125 MG (MIRAPEX) TABLET PO SCH (08:19)
[2018-02-15] MEDS: HYDROCHLOROTHIAZIDE 25 MG (HCTZ) TAB PO SCH (08:20)
[2018-02-15] MEDS: CARVEDILOL 12.5 MG (COREG) TABLET PO SCH ×2 (08:20→20:49)
[2018-02-15] MEDS: LOSARTAN 50 MG (COZAAR) TAB PO SCH (08:20)
[2018-02-15] MEDS ORDERED: NON-FORMULARY MEDICATION 1 EA EA (Levothyroxine Sodium 200 MCG) PO SCH (09:00)
[2018-02-15] MEDS ORDERED: NON-FORMULARY MEDICATION 1 EA EA (Pramipexole Di-HCl (Mirapex) 0.25 MG) PO SCH (09:00)
[2018-02-15] MEDS ORDERED: NON-FORMULARY MEDICATION 1 EA EA (Hydrochlorothiazide 25 MG) PO SCH (09:00)
[2018-02-15] MEDS: oxyCODONE/APAP 10/325MG (PERCOCET 10) TABLET PO PRN ×3 (09:23→20:49)
--- NOTE | 2018-02-15 11:41 | Progress Note ---
Subjective Time Seen by Provider: 11:24 Subjective/Events-last exam Pt seen and examined, was just getting shower. Pt is having BM's and would like to eat more than just liquids. Pain is better but still not completely controlled. Denies N/V. Review of Systems General: No Chills, No Night Sweats Pulmonary: No Dyspnea, No Cough Cardiovascular: No: Chest Pain Objective Exam Vital Signs Date Time Temp Pulse Resp B/P (MAP) Pulse Ox O2 Delivery O2 Flow Rate FiO2 02/15/18 08:33 97.5 73 18 177/95 (122) 96 Room Air 02/15/18 05:00 98.4 81 18 182/98 (126) 93 Room Air 02/15/18 04:00 98.4 81 18 182/98 (126) 93 Room Air 02/15/18 00:00 98.2 68 18 175/86 (115) 94 Room Air 02/14/18 21:00 Room Air 2.00 02/14/18 19:20 98.2 65 17 173/85 (114) 95 Room Air 02/14/18 18:48 94 Room Air 02/14/18 15:45 98.9 80 18 179/88 (118) 94 Room Air 02/14/18 12:38 99.1 72 18 175/93 (120) 92 Room Air I & O 02/15/18 07:00 Intake Total 3310 ml Output Total 3975 ml Balance -665 ml Capillary Refill : Greater Than 3 Seconds General Appearance: Mild Distress Respiratory: Lungs Clear, Normal Breath Sounds, No Respiratory Distress Cardiovascular: Regular Rate, Rhythm Gastrointestinal: soft; No distended; tenderness (mostly at incision) Results Lab Microbiology 02/13/18 MRSA Screen - Final, Complete MRSA not isolated Assessment/Plan Assessment/Plan Assessment/Plan S/P Colostomy reversal POD# 2 Pt encouraged to use IS, ambulate at least QID, will increase to soft diet. Started pain meds from home (to try and help back pain) will add Oxycodone. Restarted HTN meds. Clinical Quality Measures DVT/VTE Risk/Contraindication: Risk Factor Score Per Nursin RFS Level Per Nursing on Admit: 4+=Very High NATALIYA BOSWELL DO February 15, 2018 11:41
[2018-02-15] MEDS: ONDANSETRON 4 MG/2 ML (SDV) Z0FRAN IVP PRN (11:51)
[2018-02-15] MEDS: ENOXAPARIN 30 MG/0.3 ML (LOVENOX) SYR SC SCH (13:38)
[2018-02-15] MEDS: RT-ADVAIR HFA 115/21 MCG PER PUFF IH SCH (19:02)
[2018-02-15] MEDS: TEMAZEPAM 15 MG (RESTORIL) CAP PO SCH (20:49)
[2018-02-15] MEDS: TAMSULOSIN 0.4 MG (FLOMAX) CAP PO SCH (20:49)
[2018-02-16] VITALS: BP 152/81
[2018-02-16] MEDS: oxyCODONE/APAP 10/325MG (PERCOCET 10) TABLET PO PRN ×4 (01:18→18:34)
[2018-02-16] MEDS: PANTOPRAZOLE 40 MG (PROTONIX) TAB PO SCH (06:24)
[2018-02-16] MEDS: LEVOTHYROXINE 100 MCG (LEVOTHROID) TAB PO SCH (06:24)
[2018-02-16 08:00] VITALS: BP 170/93
[2018-02-16] MEDS: PRAMIPEXOLE 0.125 MG (MIRAPEX) TABLET PO SCH (09:06)
[2018-02-16] MEDS: morphine ER 30 MG (MS CONTIN) TAB PO PRN (09:06)
[2018-02-16] MEDS: CARVEDILOL 12.5 MG (COREG) TABLET PO SCH ×2 (09:06→21:02)
[2018-02-16] MEDS: LOSARTAN 50 MG (COZAAR) TAB PO SCH (09:06)
[2018-02-16] MEDS: HYDROCHLOROTHIAZIDE 25 MG (HCTZ) TAB PO SCH (09:06)
[2018-02-16] MEDS: RT-ADVAIR HFA 115/21 MCG PER PUFF IH SCH ×2 (09:14→19:24)
--- NOTE | 2018-02-16 09:58 | Progress Note ---
Subjective Time Seen by Provider: 09:48 Subjective/Events-last exam Pt seen and examined, tolerating diet with flatus. States pain is still "a little too much" to go home. Review of Systems General: No Chills, No Night Sweats Pulmonary: No Dyspnea, No Cough Cardiovascular: No: Chest Pain Objective Exam Vital Signs Date Time Temp Pulse Resp B/P (MAP) Pulse Ox O2 Delivery O2 Flow Rate FiO2 02/16/18 09:14 94 Room Air 02/16/18 08:00 97.5 86 20 170/93 (118) 96 Room Air 02/16/18 00:00 96.9 76 18 152/81 (104) 95 Room Air 02/15/18 19:25 97.3 67 18 157/81 (106) 95 Room Air 02/15/18 19:04 93 Room Air 02/15/18 15:40 97.3 68 20 143/71 (95) 96 Room Air 02/15/18 12:00 96.0 72 20 96/72 (80) 93 Room Air I & O 02/16/18 07:00 Intake Total 1380 ml Output Total 1450 ml Balance -70 ml Capillary Refill : Greater Than 3 Seconds General Appearance: Mild Distress Respiratory: Lungs Clear, Normal Breath Sounds, No Respiratory Distress Cardiovascular: Regular Rate, Rhythm Gastrointestinal: soft, tenderness (mostly at incisions), other (incisions are clean dry and intact) Results Lab Microbiology 02/13/18 MRSA Screen - Final, Complete MRSA not isolated Assessment/Plan Assessment/Plan Assessment/Plan S/P Colostomy reversal POD# 3 Pt will be kept one more day for pain control. Continue to use IS and increase ambulation, stay on soft diet. Continue home pain meds. Clinical Quality Measures DVT/VTE Risk/Contraindication: Risk Factor Score Per Nursin RFS Level Per Nursing on Admit: 4+=Very High NATALIYA BOSWELL DO Feb 16, 2018 09:58
--- NOTE | 2018-02-16 10:02 | Discharge Inst-Surgical ---
Discharge Inst-Surgical Depart Medication/Instructions New, Converted or Re-Newed RX: Other (Pt to take home pain meds, stated he has "enough" at home no RX needed) Patient Instructions Follow up Appt: Make appointment for 7-10 days. Instructions: No lifting greater than 10 pounds. No strenuous activity. May shower in 24 hours, no tub bath or soaking. Use incentive spirometer at home as directed. No Smoking Skin/Wound Care: Dee will be removed in 7-10 days, keep incisions clean and dry. Symptoms to Report: Appetite Changes, Extremity Discoloration, Numbness/Tingling, Swelling Increased , Bleeding Excessive, Eyesight Changes, Pain Increased, Urine Color Change, Constipation(Persistent), Fever over 101 degree F, Pain/Pressure in chest, Urinating Difficulty, Cough Up/Vomit Blood, Heart Beat Irreg/Pounding, Pain/ Pressure in jaw, Cramps in feet or legs, Lightheadedness, Pain/Pressure in shoulder, Diarrhea(Persistent), Memory Changes Suddenly, Questions/Concerns, Weight gain consecutive days, Dizziness/Fainting, Nausea/Vomiting, Shortness of Breath, Weight gain over 2 pounds If questions or concerns contact your physician Or seek help at emergency department. Activity Activity as Tolerated: Yes Walking Assistive Device: Cane Activity Instructions: Avoid Pulling & Pushing, Avoid Stress to Incision Driving Instructions: No Driving/Refer to Dr. Paniagua Discharge Diet: No Restrictions Diet After 24 Hours: Clear Liquid if Nauseous If Any Problems/Questions/Issu: Contact Your Physician, Go to Emergency Room Skin/Wound Care Infection Signs and Symptoms: Increased Redness, Foul Odor of Wound, Increased Drainage, Skin Itchy or Has a Rash, Increased Swelling, Temperature Above 101 F Bathing Instructions: Shower Stitches/Dee/Dermabond Dis: Care of NATALIYA Feliciano DO Feb 16, 2018 10:02
[2018-02-16] MEDS: ONDANSETRON 4 MG/2 ML (SDV) Z0FRAN IVP PRN (11:18)
[2018-02-16] MEDS ORDERED: ENOXAPARIN 40 MG/0.4 ML (LOVENOX) SYR SC SCH (13:00)
[2018-02-16 16:59] VITALS: BP 162/82
[2018-02-16 19:32] VITALS: BP 156/78
[2018-02-16] MEDS: TEMAZEPAM 15 MG (RESTORIL) CAP PO SCH (21:02)
[2018-02-16] MEDS: TAMSULOSIN 0.4 MG (FLOMAX) CAP PO SCH (21:02)
[2018-02-16 23:15] VITALS: BP 92/54
[2018-02-17] MEDS: oxyCODONE/APAP 10/325MG (PERCOCET 10) TABLET PO PRN ×3 (00:39→09:29)
[2018-02-17] MEDS: PANTOPRAZOLE 40 MG (PROTONIX) TAB PO SCH (06:05)
[2018-02-17] MEDS: LEVOTHYROXINE 100 MCG (LEVOTHROID) TAB PO SCH (06:05)
[2018-02-17] MEDS: RT-ADVAIR HFA 115/21 MCG PER PUFF IH SCH (07:12)
[2018-02-17 07:17] VITALS: BP 136/63
[2018-02-17] MEDS: ONDANSETRON 4 MG/2 ML (SDV) Z0FRAN IVP PRN (08:49)
[2018-02-17] MEDS: morphine ER 30 MG (MS CONTIN) TAB PO PRN (09:29)
[2018-02-17] MEDS: PRAMIPEXOLE 0.125 MG (MIRAPEX) TABLET PO SCH (09:29)
[2018-02-17] MEDS: LOSARTAN 50 MG (COZAAR) TAB PO SCH (09:29)
[2018-02-17] MEDS: HYDROCHLOROTHIAZIDE 25 MG (HCTZ) TAB PO SCH (09:29)
[2018-02-17] MEDS: CARVEDILOL 12.5 MG (COREG) TABLET PO SCH (09:29)
--- NOTE | 2018-02-17 11:39 | Progress Note ---
Subjective Date Seen by Provider: Feb 17, 2018 Time Seen by Provider: 11:31 Subjective/Events-last exam doing well. pain controlled. tolerating diet. +flatus and bowel function denies n/v fever sweats chills shortness of breath or chest pain. Objective Exam Vital Signs Date Time Temp Pulse Resp B/P (MAP) Pulse Ox O2 Delivery O2 Flow Rate FiO2 02/17/18 07:17 97.8 87 20 136/63 (87) 93 Room Air 02/17/18 07:12 Room Air 02/16/18 23:15 98.4 100 14 92/54 (67) 94 Room Air 02/16/18 19:32 97.0 80 20 156/78 (104) 96 Room Air 02/16/18 19:24 93 Room Air 02/16/18 16:59 96.9 82 20 162/82 (108) 94 Room Air I & O 02/17/18 06:59 Intake Total 990 ml Output Total 500 ml Balance 490 ml Capillary Refill : Greater Than 3 Seconds General Appearance: No Apparent Distress HEENT: PERRL/EOMI Neck: Normal Inspection, Non Tender Respiratory: Lungs Clear, Normal Breath Sounds, No Respiratory Distress Cardiovascular: Regular Rate, Rhythm Gastrointestinal: soft, tenderness (mostly at incisions, no signs of infection) Extremity: Normal Inspection Neurologic/Psychiatric: Alert, Oriented x3 Skin: Normal Color, Warm/Dry Lymphatic: No Adenopathy Results Lab Microbiology 02/13/18 MRSA Screen - Final, Complete MRSA not isolated Assessment/Plan Assessment/Plan Assessment/Plan S/P Colostomy reversal POD# 3 Doing well. Okay to discharge home. Continue to use IS and increase ambulation. Clinical Quality Measures DVT/VTE Risk/Contraindication: Risk Factor Score Per Nursin RFS Level Per Nursing on Admit: 4+=Very High ROHIT SQUIRES DO Feb 17, 2018 11:39
[2018-02-17 12:49] VITALS: BP 136/63
--- NOTE | 2018-02-26 09:36 | Physician Query Clarification ---
PQ-Further Specificity Admission/Discharge Admission Date: February 13, 2018 at 09:56 Discharge Date: Feb 17, 2018 at 12:20 The medical record reflects the following clinical scenario: History/Risk Factors: HTN, COPD, CAD, prolapse intestine into colostomy Clinical Findings: 11/10/16 systolic function reduced EF 20%, 12/07/16 improved systolic function EF 50% Treatment: Coreg Question: Can you further specify CHF per the clinical indicators above? Please document below. 1. Chronic systolic heart failure 2. CHF unspecified if systolic or diastolic 3. Other, with explanation of the clinical findings. 4. Clinically undetermined, no explanation for the clinical findings. PHYSICIAN RESPONSE Can you specify per above: 1 In responding to this query, please exercise your independent professional judgment. The purpose of this communication is to more accurately reflect the complexity of your patients condition. The fact that a question is asked does not imply that any particular answer is desired or expected. Thank you for your timely response to this clarification. Requestors name: Arias THIS PHYSICIAN QUERY FORM IS A PERMANENT PART OF THE MEDICAL RECORD ARIAS MEJIA Feb 26, 2018 09:36 NATALIYA BOSWELL DO Mar 02, 2018 11:59
--- NOTE | 2018-03-06 09:32 | Discharge Summary ---
Diagnosis/Chief Complaint Date of Admission February 13, 2018 at 09:56 Date of Discharge Feb 17, 2018 at 12:20 Admission Diagnosis Admission Diagnosis Prolapsed Colostomy HTN COPD CAD RA CHF Discharge Diagnosis Prolapsed Colostomy HTN COPD CAD RA CHF Reason Hospital Visit Colostomy Reversal Discharge Summary Procedures: Colostomy reversal Discharge Physical Examination Allergies: Coded Allergies: Sulfa (Sulfonamide Antibiotics) (Verified Allergy, Mild, GI UPSET, ) General Appearance: Alert, Oriented X3, Mild Distress (secondary to pain) Respiratory: Clear to Auscultation, Normal Air Movement Psych/Mental Status: Mental Status NL Hospital Course Patient presented to the hospital on February 13 for elective colostomy reversal. Surgery was performed patient was subsequent sent to the floor over the next few days he progressively got better was able to start tolerating diet and was having bowel movements. His main problem was pain control. Patient takes a lot of pain medication home and had up his dose and was worried this would decrease his bowel function. However patient continued to improve pain got better under better control and he was subsequently discharged home on February 17 postop day 3 in stable condition. See chart for more detailed notes. Discharge Instructions to patient/family Please see electronic discharge instructions given to patient. Discharge Medications Reviewed and agree with Discharge Medication list on patient's Discharge Instruction sheet Clinical Quality Measures DVT/VTE Risk/Contraindication: Risk Factor Score Per Nursin RFS Level Per Nursing on Admit: 4+=Very High NATALIYA BOSWELL DO Mar 06, 2018 09:32
== END 2018-02-17 12:20 | disposition home or self-care (01) | DRG 330 ==
LOC: 4TH 09:56 → SURG 09:57 → 4TH 14:58
PROVIDERS: ADMIT Surgery; ATTEND Surgery
PROC: 0DBK0ZZ Excision of Ascending Colon, Open Approach (ICD-10-PCS; principal; 2018-02-13 11:06)
DX: K94.09 Other complications of colostomy (principal); I50.22 Chronic systolic (congestive) heart failure; K63.4 Enteroptosis; I11.0 Hypertensive heart disease with heart failure; J44.9 Chronic obstructive pulmonary disease, unspecified; M06.9 Rheumatoid arthritis, unspecified; I34.0 Nonrheumatic mitral (valve) insufficiency; I25.10 Atherosclerotic heart disease of native coronary artery without angina pectoris; Z87.891 Personal history of nicotine dependence; E78.2 Mixed hyperlipidemia; Z90.49 Acquired absence of other specified parts of digestive tract
CPT/HCPCS: 36415; 80048; 85025; 87081; 88304; 94640; 94664; 94760

== ENCOUNTER 2018-11-13 14:47 | Inpatient (IN) | payer MEDICARE ==
[2018-11-13] VITALS (12 sets, daily range): BP systolic 93–126; BP diastolic 55–77
[~2018-11-13] VITALS: Ht 175.3 cm; Wt 64.6 kg
[~2018-11-13 14:47] MED LIST changes: +GABA800T10 PO; -GABA800T2 PO; -IPRA3AMP IH; +IPRA3AMP31 IH; -LOSA50TA36 PO; +LOSA50TA63 PO; +METR-145 PO; -METR500T21 PO; +ONDA2VIACC IV; -ONDA4VIA28 IV
[2018-11-13] MEDS ORDERED: NS IV 1000 ML 1,000 ML IV STA (15:16)
--- NOTE | 2018-11-13 15:20 | ED GI ---
General Chief Complaint: Abdominal/GI Problems Stated Complaint: WEAKNESS Nursing Triage Note: COMPLAINT OF WEAKNESS FOR 1 WEEK, VOMITTING X2 DAYS AND DIARRHEA X1 DAY. COMPLAINT OF RIGHT ARM PAIN. Sepsis Screen: No Definite Risk Source of Information: Patient Exam Limitations: No Limitations (LEONEL FINNEY STUDENT) History of Present Illness Date Seen by Provider: Nov 13, 2018 Time Seen by Provider: 15:01 Initial Comments 73 y/o M presented for 2-3 days of vomiting. He had been having URI symptoms for about 1 week but then started vomiting about 3 days ago. He also feels very weak and fatigued and has had diarrhea as well. He has not been able to eat very much but has had some fluids. Today, he did not take his medications due to his vomiting. He has a history significant for bowel necrosis and colon resection about 1 year ago. He also complains of right arm pain between his elbow and shoulder but attributes this to his rheumatoid arthritis. Timing/Duration: 2-3 Days Severity/Quality: Moderate, Dull Location: Generalized Abdomen Radiation: No Radiation Activities at Onset: None Modifying Factors: Worsens With Eating; Improves With Vomiting Associated Symptoms: No Chest Pain, No Diaphoresis; Fever/Chills, Fatigue, Nausea/Vomiting, Shortness of Air; No Syncope; Weakness (LEONEL FINNEY STUDENT) Allergies and Home Medications Allergies Coded Allergies: Sulfa (Sulfonamide Antibiotics) (Verified Allergy, Mild, GI UPSET, ) Home Medications Aspirin 81 Mg Tab.chew, 81 MG PO DAILY, (Reported) Atorvastatin Calcium 40 Mg Tablet, 40 MG PO HS, (Reported) Budesonide/Formoterol Fumarate 10.2 Gm Hfa.aer.ad, 2 PUFF IH BID, (Reported) Carvedilol 12.5 Mg Tablet, 12.5 MG PO BID, (Reported) Citalopram Hydrobromide 10 Mg Tablet, 10 MG PO DAILY, (Reported) Hydrochlorothiazide 25 Mg Tablet, 25 MG PO DAILY, (Reported) LAST FILLED #Oct Ipratropium/Albuterol Sulfate 3 Ml Ampul.neb, 3 ML IH Q6H PRN for SHORTNESS OF BREATH, (Reported) Levothyroxine Sodium 200 Mcg Tablet, 200 MCG PO DAILY, (Reported) Losartan Potassium 50 Mg Tablet, 50 MG PO DAILY, (Reported) Methotrexate Tablet 2.5 Mg Tablet, 12.5 MG PO Fr, (Reported) Morphine Sulfate 30 Mg Tablet.er, 30 MG PO Q8H PRN for SEVERE PAIN, (Reported) Ondansetron HCl 8 Mg Tablet, 8 MG PO Q8H PRN for NAUSEA/VOMITING-1ST LINE, ( Reported) Oxycodone HCl/Acetaminophen 1 Each Tablet, 1 TAB PO Q4H PRN for PAIN-MODERATE, ( Reported) Pantoprazole Sodium 40 Mg Tablet.dr, 40 MG PO DAILY, (Reported) Potassium Chloride 10 Meq Tab.er.prt, 10 MEQ PO DAILY, (Reported) Pramipexole Di-HCl 0.25 Mg Tablet, 0.25 MG PO DAILY, (Reported) NOT ON FILE AT [facility] Temazepam 15 Mg Capsule, 15 MG PO HS, (Reported) Patient Home Medication List Home Medication List Reviewed: Yes (LEONEL FINNEY STUDENT) Review of Systems Review of Systems Constitutional: chills; No diaphoresis; dizziness, fever, malaise, weakness EENTM: No Blurred Vision, No Double Vision; Nose Congestion; No Throat Pain Respiratory: Cough, Shortness of Air; Denies Wheezing Cardiovascular: Denies Chest Pain, Denies Edema, Denies Syncope Gastrointestinal: Abdominal Pain; Denies Blood Streaked Stools, Denies Constipated; Diarrhea, Nausea, Poor Appetite, Poor Fluid Intake, Vomiting Genitourinary: Denies Burning, Denies Frequency, Denies Pain Musculoskeletal: joint pain (chronic), joint swelling (chronic), muscle pain ( right arm pain) Skin: No lesions, No rash Psychiatric/Neurological: Denies Numbness, Denies Tingling; Weakness (LEONEL THORNE STUDENT) Past Fsyudbq-Mgcuwh-Eyuoiy Hx Past Med/Social Hx: Reviewed Nursing Past Med/Soc Hx (LEONEL FINNEY STUDENT) Patient Social History Alcohol Use: Denies Use Recreational Drug Use: No (NONE FOR YEARS) Smoking Status: Former Smoker Type Used: Cigarettes Former Smoker, Quit: Dec 17, 2016 Recent Foreign Travel: No Contact w/Someone Who Travel: No Recent Infectious Disease Expo: No Recent Hopitalizations: No (LEONEL FINNEY STUDENT) Immunizations Up To Date Tetanus Booster (TDap): Unknown Date of Pneumonia Vaccine: Aug 08, 2015 (LEONEL FINNEY STUDENT) Seasonal Allergies Seasonal Allergies: Yes (LEONEL FINNEY) Past Medical History Surgeries: Yes (L KNEE REPLACEMENT, L WRIST, ANGIOPLASTY, colon resection with colostomy) Abdominal, Cardiac, Orthopedic Respiratory: Yes Chronic Bronchitis, COPD, Emphysema Currently Using CPAP: No Currently Using BIPAP: No Cardiac: Yes ( PULMONARY HTN) Chronic Edema/Swelling, Coronary Artery Disease, High Cholesterol, Hypertension , Peripheral Vascular Neurological: No Reproductive Disorders: No Sexually Transmitted Disease: Yes HIV/AIDS: No Genitourinary: No Renal Failure Gastrointestinal: Yes (colostomy) Colitis, Gastroesophageal Reflux, Hemorrhoids Musculoskeletal: Yes (BILATERAL OLECRANON BURSITIS) Osteoporosis, Arthritis, Rheumatoid Arthritis Endocrine: Yes Hypothyroidsim HEENT: Yes (GLASSES, DENTURES) Loss of Vision: Bilateral Hearing Impairment: Denies Cancer: No Psychosocial: Yes Anxiety Integumentary: Yes (HX LEG WOUNDS) Eczema, Psoriasis Blood Disorders: Yes (HX ANEMIA) Adverse Reaction/Blood Tranf: No (HAS HAD BLOOD WITH NO REACTION) (LEONEL FINNEY STUDENT) Family Medical History Reviewed Nursing Family Hx (LEONEL FINNEY STUDENT) Patient reports no known family medical history. No Pertinent Family Hx, Diabetes (LEONEL FINNEY) Physical Exam Vital Signs Vital Signs - First Documented 11/13/18 15:03 Temp 99.8 Pulse 93 Resp 20 B/P (MAP) 100/77 (85) Pulse Ox 100 O2 Delivery Room Air (DEAN LEWIS MD) Vital Signs Capillary Refill : Less Than 3 Seconds (LEONEL FINNEY STUDENT) Height/Weight/BMI Height: 5'9.00" Weight: 150lbs. 0.0oz. [id number]; 21.9 BMI Method:Estimated General Appearance: WD/WN, mild distress, other (vomit present in kennedy) HEENT: PERRL/EOMI, normal ENT inspection, TMs normal, pharynx normal Neck: non-tender, full range of motion, supple, normal inspection Respiratory: chest non-tender, lungs clear, no respiratory distress, no accessory muscle use, decreased breath sounds Cardiovascular: regular rate, rhythm, no edema, no murmur Gastrointestinal: soft, no organomegaly, abnormal bowel sounds (hypoactive bowel sounds), tenderness (mild) Extremities: normal range of motion, normal inspection, no pedal edema, no calf tenderness, normal capillary refill, other (tenderness to right upper arm ) Back: normal inspection, no CVA tenderness, no vertebral tenderness Neurologic/Psychiatric: no motor/sensory deficits, alert, normal mood/affect, oriented x 3 Skin: normal color, warm/dry (LEONEL FINNEY STUDENT) Focused Exam Lactate Level 11/13/18 16:00: Lactic Acid Level 1.78 (DEAN LEWIS MD) Lactic Acid Level Laboratory Tests Test 11/13/18 16:00 Lactic Acid Level 1.78 MMOL/L (0.50-2.00) (DEAN LEWSI MD) Procedures/Interventions Date of ETT Placement: Nov 10, 2016 Time of ETT Placement: 2219 (LEONEL FINNEY STUDENT) Progress/Results/Core Measures Results/Orders Lab Results Laboratory Tests Test 11/13/18 14:50 11/13/18 16:00 11/13/18 17:25 Range/Units White Blood Count 12.7 H 4.3-11.0 10^3/uL Red Blood Count 3.88 L 4.35-5.85 10^6/uL Hemoglobin 11.3 L 13.3-17.7 G/DL Hematocrit 35 L 40-54 % Mean Corpuscular Volume 91 80-99 FL Mean Corpuscular Hemoglobin 29 25-34 PG Mean Corpuscular Hemoglobin Concent 32 32-36 G/DL Red Cell Distribution Width 14.9 H 10.0-14.5 % Platelet Count 275 130-400 10^3/uL Mean Platelet Volume 9.2 7.4-10.4 FL Neutrophils (%) (Auto) 82 H 42-75 % Lymphocytes (%) (Auto) 11 L 12-44 % Monocytes (%) (Auto) 7 0-12 % Eosinophils (%) (Auto) 0 0-10 % Basophils (%) (Auto) 0 0-10 % Neutrophils # (Auto) 10.3 H 1.8-7.8 X 10^3 Lymphocytes # (Auto) 1.4 1.0-4.0 X 10^3 Monocytes # (Auto) 0.9 0.0-1.0 X 10^3 Eosinophils # (Auto) 0.0 0.0-0.3 10^3/uL Basophils # (Auto) 0.0 0.0-0.1 10^3/uL Sodium Level 140 135-145 MMOL/L Potassium Level 3.9 3.6-5.0 MMOL/L Chloride Level 102 98-107 MMOL/L Carbon Dioxide Level 29 21-32 MMOL/L Anion Gap 9 5-14 MMOL/L Blood Urea Nitrogen 25 H 7-18 MG/DL Creatinine 1.26 0.60-1.30 MG/DL Estimat Glomerular Filtration Rate 56 BUN/Creatinine Ratio 20 Glucose Level 118 H 70-105 MG/DL Calcium Level 9.3 8.5-10.1 MG/DL Corrected Calcium 9.9 8.5-10.1 MG/DL Magnesium Level 1.5 L 1.8-2.4 MG/DL Total Bilirubin 0.8 0.1-1.0 MG/DL Aspartate Amino Transf (AST/SGOT) 48 H 5-34 U/L Alanine Aminotransferase (ALT/SGPT) 23 0-55 U/L Alkaline Phosphatase 71 40-136 U/L Troponin I 0.183 H <0.028 NG/ML C-Reactive Protein High Sensitivity 17.01 H 0.00-0.50 MG/DL Total Protein 6.3 L 6.4-8.2 GM/DL Albumin 3.3 3.2-4.5 GM/DL Lactic Acid Level 1.78 0.50-2.00 MMOL/L Urine Color BILL H Urine Clarity SLIGHTLY CLOUDY Urine pH 6.5 5-9 Urine Specific [place] 1.010 L 1.016-1.022 Urine Protein 2+ H NEGATIVE Urine Glucose (UA) NEGATIVE NEGATIVE Urine Ketones NEGATIVE NEGATIVE Urine Nitrite NEGATIVE NEGATIVE Urine Bilirubin NEGATIVE NEGATIVE Urine Urobilinogen 1 NORMAL MG/DL Urine Leukocyte Esterase 1+ H NEGATIVE Urine RBC (Auto) 1+ H NEGATIVE Urine RBC 0-2 /HPF Urine WBC 2-5 /HPF Urine Crystals NONE /LPF Urine Bacteria NEGATIVE /HPF Urine Casts NONE /LPF Urine Mucus LARGE H /LPF Urine Culture Indicated NO (DEAN LEWIS MD) My Orders Orders - DEAN LEWIS MD Cbc With Automated Diff (11/13/18 15:16) Comprehensive Metabolic Panel (11/13/18 15:16) Hs C Reactive Protein (2/26/19 15:16) Lactic Acid Analyzer (11/13/18 15:16) Magnesium (11/13/18 15:16) Blood Culture (11/13/18 15:16) Ondansetron Injection (Zofran Injectio (11/13/18 15:30) Ns Iv 1000 Ml (Sodium Chloride 0.9%) (11/13/18 15:16) Saline Lock/Iv-Start (11/13/18 15:16) Chest 1 View, Ap/Pa Only (11/13/18 15:16) Ua Culture If Indicated (11/13/18 15:16) Ct Abdomen/Pelvis W (11/13/18 15:48) Iohexol Injection (Omnipaque 350 Mg/Ml 1 (11/13/18 16:00) Contrast Received (Contrast Received) (11/13/18 16:00) Ns (Ivpb) (Sodium Chloride 0.9% Ivpb Bag (11/13/18 16:00) Ekg Tracing (11/13/18 16:00) Troponin I (11/13/18 16:00) Fentanyl Injection (Sublimaze Injection (11/13/18 17:02) Piperacillin Sodium/Tazobactam (Zosyn Vi (11/13/18 18:00) Albuterol/Ipra Inhalation Soln (Duoneb I (11/13/18 18:30) Svn Small Volume Nebulizer (11/13/18 18:23) (DEAN LEWIS MD) Medications Given in ED Current Medications Medications Dose Ordered Sig/Janeth Route Start Time Stop Time Status Last Admin Dose Admin Iohexol 100 ml ONCE ONCE IV 11/13/18 16:00 11/13/18 16:01 DC 11/13/18 16:30 100 ML Ondansetron HCl 4 mg ONCE ONCE IVP 11/13/18 15:30 11/13/18 15:31 DC 11/13/18 15:40 4 MG Piperacillin Sod/ Tazobactam Sod 4.5 gm/Sodium Chloride 100 ml @ 200 mls/hr ONCE ONCE IV 11/13/18 18:00 11/13/18 18:29 DC 11/13/18 18:16 200 MLS/HR Sodium Chloride 100 ml ONCE ONCE IV 11/13/18 16:00 11/13/18 16:01 DC 11/13/18 16:30 80 ML (DEAN LEWIS MD) Vital Signs/I&O 11/13/18 15:03 Temp 99.8 Pulse 93 Resp 20 B/P (MAP) 100/77 (85) Pulse Ox 100 O2 Delivery Room Air (DEAN LEWIS MD) Blood Pressure Mean: 85 Progress Progress Note : Progress Note I have seen and evaluated the patient and agree with the above except as indicated. Have directed the plan of care. Patient is here with nausea and vomiting for the last few days. Reports that he is still passing gas. Does have significant history of bowel obstruction, necrosis and resection about a year ago. Also lost part of his stomach. States that he hasn't been feeling well overall. Unable to eat or drink. IV, labs, blood cultures, lactic acid, EKG, chest x-ray and CT pelvis without contrast ordered. Normal saline 1 L bolus ordered. Monitor patient. Patient was found to have right-sided pneumonia. Zosyn 4.5 g IV ordered. 1814: I did discuss the case with Dr. Roman she accepts patient for admission. Troponin was noted to be mildly elevated. Due to that she is requesting cardiology consult. This was placed with Dr. Ramirez. It appears patient normally sees Dr. Davis so he is on-call for Dr. Davis. Findings answers discussed with the patient and family who agree with plan. Admit, inpatient status. Patient will go to stepdown due to borderline blood pressure and he is starting antibiotics now. (DEAN LEWIS MD) Initial ECG Impression Date: Nov 13, 2018 Initial ECG Impression Time: 16:58 Initial ECG Rate: 83 Initial ECG Rhythm: Normal Sinus Comment Sinus rhythm with PVCs. Nonspecific intraventricular conduction delay. No evidence of ST elevation OR. Similar to 12/14/16. Interpreted by me. (DEAN LEWIS MD) Diagnostic Imaging Diagonstic Imaging: Xray Plain Films/CT/US/NM/MRI: chest Comments NAME: ALIX BOWEN [facility] REC#: [id number] PHYSICIAN: DEAN LEWIS MD CC: NELSON ELKINS MD; DEAN LEWIS MD Page 1 of 1 RADIOLOGY REPORT [facility], [place] CC: NELSON ELKINS MD; DEAN LEWIS MD Page 1 of 1 RADIOLOGY REPORT NAME: ALIX BOWEN [facility] REC#: [id number] PT STATUS: REG ER : 1945 PHYSICIAN: DEAN LEWIS MD ADMIT DATE: 11/13/18/ER Signed Date of Exam: 11/13/18 CHEST 1 VIEW, AP/PA ONLY INDICATION: Respiratory distress. FINDINGS: There is cardiomegaly. There are COPD changes. There is some new infiltrate in the right infrahilar region compared to the previous study which may represent pneumonia. There is no pneumothorax or pleural fluid. IMPRESSION: Cardiomegaly. COPD changes. New area of infiltrate in the right infrahilar region, suspicious for pneumonia. Followup is recommended. Dictated by: Dictated on workstation # [id number] Dict: 11/13/18 1629 Trans: 11/13/18 1645 Interpreted by: NELSON ELKINS MD Electronically signed by: NELSON ELKINS MD 11/13/18 1645 (LEONEL FINNEY STUDENT) Diagonstic Imaging: CT Plain Films/CT/US/NM/MRI: abdomen, pelvis Comments [facility], [place], [place] NAME: ALIX BOWEN [facility] REC#: [id number] PT STATUS: REG ER : 1945 PHYSICIAN: DEAN LEWIS MD ADMIT DATE: 11/13/18/ER Draft Date of Exam:11/13/18 CT ABDOMEN/PELVIS W CLINICAL INDICATION: Patient with upper abdominal pain with nausea and vomiting x1 week. Patient has history of asthma, COPD, and emphysema status post 11 inches of colon removed in one-fourth of the stomach. EXAM: Axial CT scan of the abdomen and pelvis performed with IV contrast. Portal venous and delayed phase were obtained. Coronal and sagittal reformatted images are created. COMPARISON: CT scan of the abdomen and pelvis with contrast dated 05/05/2017. CT scan of the chest, abdomen and pelvis with contrast dated 01/12/2017. FINDINGS: There is mild patchy airspace disease involving the right lung base which may be related to lung infiltrate. There are small degenerative spurs involving the bilateral acetabular regions and spurring of the thoracolumbar spine. There is a roughly 1.8 cm low-density lesion in the right lobe of the liver near the dome with peripheral nodular enhancement which most likely represents hemangioma. There is also a stable 8 mm low-density nodule involving the left lobe of the liver anteriorly and superiorly, which may represent a cyst. There is a stable 12 mm area of blush of enhancement involving the right lobe of the liver inferiorly. This may represent a cavernous hemangioma. There is slight decreased size of a circumscribed low-density likely cyst involving the anterior aspect of the right lobe of the liver which measures 7 mm compared to prior study measured at 12 mm. These findings are compared to the prior CT scan dated 01/12/2017. There is interval geographic slight increased density involving the left lobe of the liver. There is no intrahepatic or extrahepatic ductal dilation. The spleen is unremarkable. Stable atrophy of the pancreatic head. The gallbladder is unremarkable. Adrenal glands are unremarkable. Again noted atrophy of both kidneys and multiple bilateral renal cysts which have slightly increased in size, but are subcentimeter. There is calcification of the anterior aspect of the left renal parenchyma again seen. There is no hydronephrosis or enhancing renal mass. There is interval development of a small loop of intestine within the left inguinal canal region. There is no intestinal obstruction. There is no intra-abdominal free air or free fluid. Stable postop changes to the distal colon with anastomosis related to colon resection seen in the pelvis which is stable compared to the most recent CT scan, but is new compared to the prior CT dated 01/12/2017. There is removal of the previously seen colostomy overlying the right abdomen. There is a small to moderate amount of stool in the distal colon in the region of the pelvis. There is no evidence of bowel wall thickening, intestinal obstruction or gross mass. Stomach shows no significant interval abnormality. Nonspecific air-fluid level in the duodenum. There is no lymphadenopathy involving the abdomen and pelvis. Vascular ectasia of the abdominal aorta is seen in the infrarenal region. The bladder is fluid-filled with no gross abnormality. Prostate gland calcifications are noted. Extra-abdominal and extrapelvic soft tissue structures show surgical change, but otherwise unremarkable for acute finding. IMPRESSION: 1.: There is interval development of a small loop of small bowel intestine in the proximal left inguinal hernia region. There is no evidence of intestinal obstruction seen. Correlation for pain in this region is suggested. 2: Again seen postop changes with colon resection. There is no evidence of bowel wall thickening or acute finding. There is small to moderate amount of stool in the region of the residual colon in the pelvis. 3: There is interval development of a small amount of patchy airspace disease involving the posterior right lung base which may represent pneumonia. 4: The remainder of this exam shows no other significant interval abnormality. Dictated on workstation # [id number] Dict: 11/13/18 1700 Trans: 11/13/18 1727 [facility] [id number] Interpreted by: JANES SCHULTE MD Electronically signed by: Reviewed: Reviewed by Me (DEAN LEWIS MD) Departure Communication (Admissions) Time/Spoke to Admitting Phy: 18:15 Time/Spoke to Consulting Phy: 18:30 (DEAN LEWIS MD) Impression Primary Impression: Right middle lobe pneumonia Qualified Codes: J18.1 - Lobar pneumonia, unspecified organism Additional Impressions: Vomiting Qualified Codes: R11.2 - Nausea with vomiting, unspecified Dehydration Elevated troponin Disposition: ADMITTED INPATIENT Condition: Stable Admissions Decision to Admit Reason: Admit from ER (General) Decision to Admit/Date: Nov 13, 2018 Time/Decision to Admit Time: 18:15 (DEAN LEWIS MD) Departure-Patient Inst. Referrals: ANDREINA MESA MD (PCP/Family) Primary Care Physician LEONEL FINNEY Nov 13, 2018 15:20 DEAN LEWIS MD Nov 13, 2018 17:40
[2018-11-13 15:23] LABS: BASOPHILS % (AUTO) 0 % (0-10); EOSINOPHILS % (AUTO) 0 % (0-10); HEMATOCRIT 35 % (40-54); HEMOGLOBIN 11.3 G/DL (13.3-17.7); LYMPHOCYTES # (AUTO) 1.4 X 10^3 (1.0-4.0); LYMPHOCYTES % (AUTO) 11 % (12-44); MEAN CORPUSCULAR HEMOGLOBIN 29 PG (25-34); MEAN CORPUSCULAR HGB CONC 32 G/DL (32-36); MEAN CORPUSCULAR VOLUME 91 FL (80-99); MEAN PLATELET VOLUME 9.2 FL (7.4-10.4); MONOCYTES # (AUTO) 0.9 X 10^3 (0.0-1.0); MONOCYTES % (AUTO) 7 % (0-12); NEUTROPHILS # (AUTO) 10.3 X 10^3 (1.8-7.8); NEUTROPHILS % (AUTO) 82 % (42-75); PLATELET COUNT 275 10^3/uL (130-400); RED CELL DISTRIBUTION WIDTH 14.9 % (10.0-14.5); WHITE BLOOD COUNT 12.7 10^3/uL (4.3-11.0)
[2018-11-13] MEDS ORDERED: ONDANSETRON 4 MG/2 ML (SDV) Z0FRAN IVP ONE (15:30)
[2018-11-13 15:37] LABS: ALBUMIN 3.3 GM/DL (3.2-4.5); BILIRUBIN,TOTAL 0.8 MG/DL (0.1-1.0); CALCIUM 9.3 MG/DL (8.5-10.1); CREATININE SERUM 1.26 MG/DL (0.60-1.30); MAGNESIUM 1.5 MG/DL (1.8-2.4); POTASSIUM 3.9 MMOL/L (3.6-5.0); TOTAL PROTEIN 6.3 GM/DL (6.4-8.2)
[2018-11-13] MEDS ORDERED: NS 100 ML (IVPB) BAG IV ONE (16:00)
[2018-11-13] MEDS ORDERED: RECEIVED CONTRAST 20 ML VIAL IV SCH (16:00)
[2018-11-13] MEDS ORDERED: IOHEXOL 350 MG/ML 100 ML (OMNIPAQUE 350) VIAL IV ONE (16:00)
--- NOTE | 2018-11-13 16:43 | Diagnostic Imaging Report ---
INDICATION: Respiratory distress. FINDINGS: There is cardiomegaly. There are COPD changes. There is some new infiltrate in the right infrahilar region compared to the previous study which may represent pneumonia. There is no pneumothorax or pleural fluid. IMPRESSION: Cardiomegaly. COPD changes. New area of infiltrate in the right infrahilar region, suspicious for pneumonia. Followup is recommended. Dictated by: Dictated on workstation # [id number]
[2018-11-13] MEDS ORDERED: fentaNYL INJECTION 100 MCG/2 ML AMP IVP STA (17:02)
--- NOTE | 2018-11-13 17:27 | Diagnostic Imaging Report ---
CLINICAL INDICATION: Patient with upper abdominal pain with nausea and vomiting x1 week. Patient has history of asthma, COPD, and emphysema status post 11 inches of colon removed in one-fourth of the stomach. EXAM: Axial CT scan of the abdomen and pelvis performed with IV contrast. Portal venous and delayed phase were obtained. Coronal and sagittal reformatted images are created. COMPARISON: CT scan of the abdomen and pelvis with contrast dated 05/05/2017. CT scan of the chest, abdomen and pelvis with contrast dated 01/12/2017. FINDINGS: There is mild patchy airspace disease involving the right lung base which may be related to lung infiltrate. There are small degenerative spurs involving the bilateral acetabular regions and spurring of the thoracolumbar spine. There is a roughly 1.8 cm low-density lesion in the right lobe of the liver near the dome with peripheral nodular enhancement which most likely represents hemangioma. There is also a stable 8 mm low-density nodule involving the left lobe of the liver anteriorly and superiorly, which may represent a cyst. There is a stable 12 mm area of blush of enhancement involving the right lobe of the liver inferiorly. This may represent a cavernous hemangioma. There is slight decreased size of a circumscribed low-density likely cyst involving the anterior aspect of the right lobe of the liver which measures 7 mm compared to prior study measured at 12 mm. These findings are compared to the prior CT scan dated 01/12/2017. There is interval geographic slight increased density involving the left lobe of the liver. There is no intrahepatic or extrahepatic ductal dilation. The spleen is unremarkable. Stable atrophy of the pancreatic head. The gallbladder is unremarkable. Adrenal glands are unremarkable. Again noted atrophy of both kidneys and multiple bilateral renal cysts which have slightly increased in size, but are subcentimeter. There is calcification of the anterior aspect of the left renal parenchyma again seen. There is no hydronephrosis or enhancing renal mass. There is interval development of a small loop of intestine within the left inguinal canal region. There is no intestinal obstruction. There is no intra-abdominal free air or free fluid. Stable postop changes to the distal colon with anastomosis related to colon resection seen in the pelvis which is stable compared to the most recent CT scan, but is new compared to the prior CT dated 01/12/2017. There is removal of the previously seen colostomy overlying the right abdomen. There is a small to moderate amount of stool in the distal colon in the region of the pelvis. There is no evidence of bowel wall thickening, intestinal obstruction or gross mass. Stomach shows no significant interval abnormality. Nonspecific air-fluid level in the duodenum. There is no lymphadenopathy involving the abdomen and pelvis. Vascular ectasia of the abdominal aorta is seen in the infrarenal region. The bladder is fluid-filled with no gross abnormality. Prostate gland calcifications are noted. Extra-abdominal and extrapelvic soft tissue structures show surgical change, but otherwise unremarkable for acute finding. IMPRESSION: 1.: There is interval development of a small loop of small bowel intestine in the proximal left inguinal hernia region. There is no evidence of intestinal obstruction seen. Correlation for pain in this region is suggested. 2: Again seen postop changes with colon resection. There is no evidence of bowel wall thickening or acute finding. There is small to moderate amount of stool in the region of the residual colon in the pelvis. 3: There is interval development of a small amount of patchy airspace disease involving the posterior right lung base which may represent pneumonia. 4: The remainder of this exam shows no other significant interval abnormality. Dictated by: Dictated on workstation # [id number]
[2018-11-13 17:37] LABS: BILIRUBIN,URINE NEGATIVE (NEGATIVE); CLARITY,URINE SLIGHTLY CLOUDY; COLOR,URINE AMBER; GLUCOSE, URINE (UA) NEGATIVE (NEGATIVE); KETONES,URINE NEGATIVE (NEGATIVE); LEUKOCYTE ESTERASE ,URINE 1+ (NEGATIVE); NITRITE,URINE NEGATIVE (NEGATIVE); PH,URINE 6.5 (5-9); PROTEIN,URINE 2+ (NEGATIVE); UROBILINOGEN,URINE 1 MG/DL (NORMAL)
[2018-11-13 17:54] LABS: BACTERIA,URINE NEGATIVE /HPF; RBC,URINE 0-2 /HPF
[2018-11-13] MEDS ORDERED: PIPERACILLIN SODIUM/TAZOBACTAM 4.5 GM in NS (IVPB) 100 ML IV ONE (18:00)
[2018-11-13] MEDS ORDERED: RT-ALBUTEROL/IPRATROPIUM 3 ML (DUONEB) VIAL INH ONE (18:30)
--- NOTE | 2018-11-13 19:29 | NUR ---
CR 1.26; CR CL ~50; WT 86 KG; VANCO 1500 MG IV BOLUS THEN 1250 MG IV Q24H X 3 DOSES
[2018-11-13] MEDS ORDERED: VANCOMYCIN 1500 MG/NS 500 ML IVPB IV NR ×2 (19:30)
[2018-11-13] MEDS ORDERED: CATHETER FLUSH 10 ML SYR IV PRN (19:30)
[2018-11-13] MEDS ORDERED: fentaNYL INJECTION 100 MCG/2 ML AMP IV PRN (19:30)
[2018-11-13] MEDS: NS IV 1000 ML 1,000 ML IV SCH (19:35)
[2018-11-13] MEDS: morphine ER 30 MG (MS CONTIN) TAB PO PRN (21:00)
[2018-11-13] MEDS ORDERED: RT-ALBUTEROL/IPRATROPIUM 3 ML (DUONEB) VIAL INH PRN (21:00)
[2018-11-14] VITALS: BP 103/61
[2018-11-14] MEDS ORDERED: PIPERACILLIN/TAZO 4.5 GM/NS 100 ML IV SCH ×2
[2018-11-14 03:37] LABS: BASOPHILS % (AUTO) 0 % (0-10); EOSINOPHILS # (AUTO) 0.1 10^3/uL (0.0-0.3); EOSINOPHILS % (AUTO) 1 % (0-10); HEMATOCRIT 31 % (40-54); HEMOGLOBIN 9.6 G/DL (13.3-17.7); LYMPHOCYTES # (AUTO) 1.6 X 10^3 (1.0-4.0); LYMPHOCYTES % (AUTO) 17 % (12-44); MEAN CORPUSCULAR HEMOGLOBIN 28 PG (25-34); MEAN CORPUSCULAR HGB CONC 31 G/DL (32-36); MEAN CORPUSCULAR VOLUME 92 FL (80-99); MEAN PLATELET VOLUME 9.3 FL (7.4-10.4); MONOCYTES # (AUTO) 0.9 X 10^3 (0.0-1.0); MONOCYTES % (AUTO) 9 % (0-12); NEUTROPHILS % (AUTO) 73 % (42-75); PLATELET COUNT 207 10^3/uL (130-400); WHITE BLOOD COUNT 9.6 10^3/uL (4.3-11.0)
[2018-11-14 04:00] VITALS: BP 113/65
[2018-11-14 04:00] LABS: ALANINE AMINOTRANSFERASE 23 U/L (0-55); ALBUMIN 2.8 GM/DL (3.2-4.5); ALKALINE PHOSPHATASE 63 U/L (40-136); BILIRUBIN,TOTAL 0.7 MG/DL (0.1-1.0); BUN/CREATININE RATIO 24; CALCIUM 8.8 MG/DL (8.5-10.1); CARBON DIOXIDE 22 MMOL/L (21-32); CHLORIDE 108 MMOL/L (98-107); CREATININE SERUM 1.01 MG/DL (0.60-1.30); GFR ESTIMATED > 60; GLUCOSE 84 MG/DL (70-105); POTASSIUM 4.2 MMOL/L (3.6-5.0); SODIUM 139 MMOL/L (135-145); TOTAL PROTEIN 5.3 GM/DL (6.4-8.2)
--- NOTE | 2018-11-14 04:42 | Pulmonary Consultation ---
History of Present Illness History of Present Illness Date of Consultation 11/14/18 04:37 Time Seen by Provider: 04:37 Date of Admission History of Present Illness 73yo with hx of CAD, COPD (does not have home 02) presented secondary to URI and weakness progressing to N/V and diarrhea over the last week. He has had decreased PO intake secondary to N/V. He was found to have pneumonia and elevated troponin upon ED admission. Cardiology is consulted. Pt states he is having CP however it is mild and he believe it is GERD. PT is not currently requiring oxygen. Allergies and Home Medications Allergies Coded Allergies: Sulfa (Sulfonamide Antibiotics) (Verified Allergy, Mild, GI UPSET, ) Home Medications Aspirin 81 Mg Tab.chew, 81 MG PO DAILY, (Reported) Atorvastatin Calcium 40 Mg Tablet, 40 MG PO HS, (Reported) Budesonide/Formoterol Fumarate 10.2 Gm Hfa.aer.ad, 2 PUFF IH BID, (Reported) Carvedilol 12.5 Mg Tablet, 12.5 MG PO BID, (Reported) Citalopram Hydrobromide 10 Mg Tablet, 10 MG PO DAILY, (Reported) Hydrochlorothiazide 25 Mg Tablet, 25 MG PO DAILY, (Reported) LAST FILLED #Oct Ipratropium/Albuterol Sulfate 3 Ml Ampul.neb, 3 ML IH Q6H PRN for SHORTNESS OF BREATH, (Reported) Levothyroxine Sodium 200 Mcg Tablet, 200 MCG PO DAILY, (Reported) Losartan Potassium 50 Mg Tablet, 50 MG PO DAILY, (Reported) Methotrexate Tablet 2.5 Mg Tablet, 12.5 MG PO Fr, (Reported) Morphine Sulfate 30 Mg Tablet.er, 30 MG PO Q8H PRN for SEVERE PAIN, (Reported) Ondansetron HCl 8 Mg Tablet, 8 MG PO Q8H PRN for NAUSEA/VOMITING-1ST LINE, ( Reported) Oxycodone HCl/Acetaminophen 1 Each Tablet, 1 TAB PO Q4H PRN for PAIN-MODERATE, ( Reported) Pantoprazole Sodium 40 Mg Tablet.dr, 40 MG PO DAILY, (Reported) Potassium Chloride 10 Meq Tab.er.prt, 10 MEQ PO DAILY, (Reported) Pramipexole Di-HCl 0.25 Mg Tablet, 0.25 MG PO DAILY, (Reported) NOT ON FILE AT [facility] Temazepam 15 Mg Capsule, 15 MG PO HS, (Reported) Past Askjjin-Ymyvzm-Megaml Hx Past Med/Social Hx: Reviewed Nursing Past Med/Soc Hx Patient Social History Alcohol Use: Denies Use Recreational Drug Use: No (NONE FOR YEARS) Smoking Status: Former Smoker Type Used: Cigarettes Former Smoker, Quit: Dec 17, 2016 Recent Foreign Travel: No Contact w/Someone Who Travel: No Recent Infectious Disease Expo: No Recent Hopitalizations: No Immunizations Up To Date Tetanus Booster (TDap): Unknown Date of Pneumonia Vaccine: Aug 08, 2015 Seasonal Allergies Seasonal Allergies: Yes Past Medical History Surgeries: Yes (L KNEE REPLACEMENT, L WRIST, ANGIOPLASTY, colon resection with colostomy) Abdominal, Cardiac, Orthopedic Respiratory: Yes Chronic Bronchitis, COPD, Emphysema Currently Using CPAP: No Currently Using BIPAP: No Cardiac: Yes ( PULMONARY HTN) Chronic Edema/Swelling, Coronary Artery Disease, High Cholesterol, Hypertension , Peripheral Vascular Neurological: No Reproductive Disorders: No Sexually Transmitted Disease: Yes HIV/AIDS: No Genitourinary: No Renal Failure Gastrointestinal: Yes (colostomy) Colitis, Gastroesophageal Reflux, Hemorrhoids Musculoskeletal: Yes (BILATERAL OLECRANON BURSITIS) Osteoporosis, Arthritis, Rheumatoid Arthritis Endocrine: Yes Hypothyroidsim HEENT: Yes (GLASSES, DENTURES) Loss of Vision: Bilateral Hearing Impairment: Denies Cancer: No Psychosocial: Yes Anxiety Integumentary: Yes (HX LEG WOUNDS) Eczema, Psoriasis Blood Disorders: Yes (HX ANEMIA) Adverse Reaction/Blood Tranf: No (HAS HAD BLOOD WITH NO REACTION) Family Medical History Reviewed Nursing Family Hx Patient reports no known family medical history. No Pertinent Family Hx, Diabetes Review of Systems Time Seen by Provider: 05:28 Constitutional: Fever, Chills, Weakness, Malaise Eyes: No: Pain, Vision change, Conjunctivae inflammation, Eyelid inflammation, Other, Redness ENT: Nose congestion; No: Ear pain, Ear discharge, Nose pain, Nose discharge, Mouth pain, Mouth swelling, Throat pain, Throat swelling, Other Respiratory: Cough, Shortness of breath, SOB with excertion, Wheezing, Sputum; No: Hemoptysis, Pleuritic Pain Cardiovascular: Chest Pain, Palpitations, Orthopnea, Paroxysmal Noc. Dyspnea Gastrointestinal: Nausea, Vomiting, Abdominal Pain, Diarrhea Genitourinary: No Dysuria, No Frequency, No Incontinence, No Hematuria, No Retention, No Other Musculoskeletal: neck pain, shoulder pain, arm pain, back pain Neurological: Weakness Sepsis Event Evaluation Height, Weight, BMI Height: 5'9.00" Weight: 147lbs. 0.0oz. 66.515712ys; 21.7 BMI Method:Estimated Exam Exam Vital Signs Date Time Temp Pulse Resp B/P (MAP) Pulse Ox O2 Delivery O2 Flow Rate FiO2 11/14/18 04:00 Nasal Cannula 2.00 11/14/18 01:00 80 11/14/18 00:00 72 18 103/61 (75) 91 Room Air 11/14/18 00:00 98.0 11/14/18 00:00 Nasal Cannula 2.00 11/13/18 23:00 76 19 102/55 (71) 91 Room Air 11/13/18 22:00 74 8 117/62 (80) 92 Room Air 11/13/18 21:00 71 13 94/57 (69) 93 Room Air 11/13/18 20:45 71 17 106/62 (77) 92 Room Air 11/13/18 20:39 98.7 75 11 119/59 95 Room Air 11/13/18 20:37 93 100 11/13/18 20:30 73 15 111/59 (76) 96 Room Air 11/13/18 20:15 74 14 107/61 (76) 92 Room Air 11/13/18 20:00 81 13 101/61 (74) 94 Room Air 11/13/18 20:00 Nasal Cannula 2.00 11/13/18 19:45 76 16 93/61 (72) 90 Room Air 11/13/18 19:30 73 13 123/67 (85) 93 Room Air 11/13/18 19:18 83 11/13/18 19:14 98.7 87 26 126/68 (87) 94 Room Air 11/13/18 19:05 98.9 84 22 111/55 (73) 94 Room Air 11/13/18 18:35 95 Room Air 11/13/18 15:03 99.8 93 20 100/77 (85) 100 Room Air I & O 11/14/18 06:59 Intake Total 1615 ml Output Total 400 ml Balance 1215 ml Height & Weight Height: 5'9.00" Weight: 147lbs. 0.0oz. 66.106404rf; 21.7 BMI Method:Estimated General Appearance: No Apparent Distress, Chronically ill HEENT: PERRL/EOMI, Normal ENT Inspection, Pharynx Normal Neck: Full Range of Motion, Non Tender, Supple Respiratory: Chest Non Tender, Lungs Clear, Normal Breath Sounds, No Accessory Muscle Use, No Respiratory Distress Cardiovascular: Regular Rate, Rhythm, No Edema Capillary Refill: Less Than 3 Seconds Gastrointestinal: soft, no organomegaly, abnormal bowel sounds (hypoactive bowel sounds), tenderness (mild) Neurologic/Psychiatric: Alert, Oriented x3 Skin: Normal Color, Warm/Dry Lymphatic: No Adenopathy Results Lab Laboratory Tests 11/13/18 14:50 11/14/18 03:25 Assessment/Plan Assessment/Plan Pneumonia -Currently on Vanco, Zyosyn -Change ABX to Rocephin -Check influenza swab and BNP -Mercado cultures pending -MRSA swab pending NSTEMI -Cardiology is consulted Inguinal hernia with a loop of small bowl -Pt is known to Dr. Jaime -Consider consultation COPD- stable (pt does not have home 02 -Will need home 02 eval prior to discharge. -sarita NIETO -Currently on RA Hypomag -replace GERD -Will give GI cocktail and start Protonix Chronic right arm pain -Pain control Transfer to [address] [place] [address] if ok with cardiology. CHAYITO DE LA ROSA DO Nov 14, 2018 04:42
[2018-11-14 04:45] LABS: MAGNESIUM 1.6 MG/DL (1.8-2.4); PHOSPHORUS 2.8 MG/DL (2.3-4.7)
[2018-11-14] MEDS ORDERED: LIDOCAINE 2% VISCOUS 15 ML UDC PO ONE (05:15)
[2018-11-14] MEDS ORDERED: ANTACID SUSP 30 ML UDC (MYLANTA) PO ONE (05:15)
[2018-11-14] MEDS: NS IV 1000 ML 1,000 ML IV SCH (05:24)
[2018-11-14] MEDS: morphine ER 30 MG (MS CONTIN) TAB PO PRN ×3 (05:24→23:08)
[2018-11-14] MEDS: MAGNESIUM 1 GM/100 ML IVPB 100 ML IV SCH ×2 (05:24→06:15)
[2018-11-14] MEDS: cefTRIAXone FOR IV USE 1,000 MG in WATER (STERILE) FOR INJECTION 10 ML IV SCH (05:31)
[2018-11-14] MEDS ORDERED: OSELTAMIVIR 75 MG (TAMIFLU) CAPSULE PO SCH (06:35)
[2018-11-14] MEDS: RT-ALBUTEROL/IPRATROPIUM 3 ML (DUONEB) VIAL INH SCH ×4 (07:00→19:18)
--- NOTE | 2018-11-14 07:29 | History & Physical-Hospitalist ---
History of Present Illness HPI/Chief Complaint Pt is a 73yoCM with a PMH of RA, CAD, HTN, bowel necrosis s/p resection who presented to the ER for evaluation of 3 days of nausea, vomiting, diarrhea, and weakness. He states he was vomit multiple times and felt feverish at home but did not check his temperature. He denies any cough or chest pain to me. He still feels very weak but has been able to keep food down overnight. He found to have a right sided pneumonia with leukocytosis tachycardia on presentation. His blood pressures were on the lower side of normal as well. Labs revealed a slightly elevated troponin as well. He was admitted to [facility] for further management of sepsis and ACS rule out with serial troponins. He states he is feel much better today and has no complaints. Source: patient Date Seen 11/14/18 Time Seen by a Provider: 07:28 Attending Physician Nolberto Parsons MD PCP Berry Grajeda MD Referring Physician Date of Admission Nov 13, 2018 at 18:28 Home Medications & Allergies Home Medications Reviewed patient Home Medication Reconciliation performed by pharmacy medication reconciliations music sound light technician and/or nursing. Patients Allergies have been reviewed. Allergies Allergies Coded Allergies Sulfa (Sulfonamide Antibiotics) (Verified Allergy, Mild, GI UPSET, 08/11/17) Past Ilbwyal-Psrjwx-Esalww Hx Past Med/Social Hx: Reviewed Nursing Past Med/Soc Hx Patient Social History Alcohol Use: Denies Use Recreational Drug Use: No (NONE FOR YEARS) Smoking Status: Former Smoker Former Smoker, Quit: Dec 17, 2016 Type Used: Cigarettes Recent Foreign Travel: No Contact w/other who traveled: No Recent Hopitalizations: No Recent Infectious Disease Expo: No Immunizations Up To Date Tetanus Booster (TDap): Unknown Date of Pneumonia Vaccine: Aug 08, 2015 Seasonal Allergies Seasonal Allergies: Yes Past Medical History Surgeries: Abdominal, Cardiac, Orthopedic Respiratory: COPD, Sleep Apnea Currently Using CPAP: No Currently Using BIPAP: No Cardiac: Chronic Edema/Swelling, Coronary Artery Disease, High Cholesterol, Hypertension, Peripheral Vascular Reproductive: No Sexually Transmitted Disease: Yes HIV/AIDS: No Genitourinary: Renal Failure Gastrointestinal: Colitis, Gastroesophageal Reflux, Hemorrhoids Musculoskeletal: Osteoporosis, Arthritis, Rheumatoid Arthritis Endocrine: Hypothyroidsim Loss of Vision: Bilateral Hearing Impairment: Denies Psychosocial: Anxiety Skin/Integumentary: Eczema, Psoriasis History of Blood Disorders: Yes (HX ANEMIA) Adverse Reaction to Blood Crooks: No (HAS HAD BLOOD WITH NO REACTION) Family History Reviewed Nursing Family Hx Patient reports no known family medical history. No Pertinent Family Hx, Diabetes Review of Systems Constitutional: No diaphoresis; fever, weakness EENTM: no symptoms reported Respiratory: No cough, No dyspnea on exertion, No short of breath Cardiovascular: No chest pain Gastrointestinal: diarrhea, heartburn, nausea, vomiting Genitourinary: no symptoms reported Musculoskeletal: no symptoms reported Skin: no symptoms reported Psychiatric/Neurological: No Symptoms Reported Physical Exam Physical Exam Vital Signs Vital Signs - First Documented 11/13/18 15:03 Temp 99.8 Pulse 93 Resp 20 B/P (MAP) 100/77 (85) Pulse Ox 100 O2 Delivery Room Air Capillary Refill : Less Than 3 SecondsLess Than 3 Seconds Height, Weight, BMI Height: 5'9.00" Weight: 147lbs. 0.0oz. 66.947415id; 21.7 BMI Method:Estimated General Appearance: No Apparent Distress, Chronically ill Eyes: Right Eye Normal Inspection, Right Eye PERRL HEENT: PERRL/EOMI, Normal ENT Inspection, Moist Mucous Membranes Neck: Full Range of Motion, Normal Inspection, Non Tender Respiratory: Lungs Clear, No Accessory Muscle Use, No Respiratory Distress Cardiovascular: Regular Rate, Rhythm, No JVD, No Murmur, Normal Peripheral Pulses Gastrointestinal: Normal Bowel Sounds, No Pulsatile Mass, Non Tender, Soft Back: No Vertebral Tenderness Extremity: Normal Capillary Refill, Non Tender, No Calf Tenderness, No Pedal Edema, Other (deformities of hands consistent with RA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 Skin: Normal Color, Warm/Dry, Tattoos/Piercings Lymphatic: No Adenopathy Results Results/Procedures Labs Laboratory Tests 11/13/18 14:50 11/14/18 03:25 Patient resulted labs reviewed. Imaging: Reviewed Imaging Report Imaging Date of Exam: 11/13/18 CHEST 1 VIEW, AP/PA ONLY INDICATION: Respiratory distress. FINDINGS: There is cardiomegaly. There are COPD changes. There is some new infiltrate in the right infrahilar region compared to the previous study which may represent pneumonia. There is no pneumothorax or pleural fluid. IMPRESSION: Cardiomegaly. COPD changes. New area of infiltrate in the right infrahilar region, suspicious for pneumonia. Followup is recommended. Date of Exam: 11/13/18 CT ABDOMEN/PELVIS W CLINICAL INDICATION: Patient with upper abdominal pain with nausea and vomiting x1 week. Patient has history of asthma, COPD, and emphysema status post 11 inches of colon removed in one-fourth of the stomach. EXAM: Axial CT scan of the abdomen and pelvis performed with IV contrast. Portal venous and delayed phase were obtained. Coronal and sagittal reformatted images are created. COMPARISON: CT scan of the abdomen and pelvis with contrast dated 05/05/2017. CT scan of the chest, abdomen and pelvis with contrast dated 01/12/2017. FINDINGS: There is mild patchy airspace disease involving the right lung base which may be related to lung infiltrate. There are small degenerative spurs involving the bilateral acetabular regions and spurring of the thoracolumbar spine. There is a roughly 1.8 cm low-density lesion in the right lobe of the liver near the dome with peripheral nodular enhancement which most likely represents hemangioma. There is also a stable 8 mm low-density nodule involving the left lobe of the liver anteriorly and superiorly, which may represent a cyst. There is a stable 12 mm area of blush of enhancement involving the right lobe of the liver inferiorly. This may represent a cavernous hemangioma. There is slight decreased size of a circumscribed low-density likely cyst involving the anterior aspect of the right lobe of the liver which measures 7 mm compared to prior study measured at 12 mm. These findings are compared to the prior CT scan dated 01/12/2017. There is interval geographic slight increased density involving the left lobe of the liver. There is no intrahepatic or extrahepatic ductal dilation. The spleen is unremarkable. Stable atrophy of the pancreatic head. The gallbladder is unremarkable. Adrenal glands are unremarkable. Again noted atrophy of both kidneys and multiple bilateral renal cysts which have slightly increased in size, but are subcentimeter. There is calcification of the anterior aspect of the left renal parenchyma again seen. There is no hydronephrosis or enhancing renal mass. There is interval development of a small loop of intestine within the left inguinal canal region. There is no intestinal obstruction. There is no intra-abdominal free air or free fluid. Stable postop changes to the distal colon with anastomosis related to colon resection seen in the pelvis which is stable compared to the most recent CT scan, but is new compared to the prior CT dated 01/12/2017. There is removal of the previously seen colostomy overlying the right abdomen. There is a small to moderate amount of stool in the distal colon in the region of the pelvis. There is no evidence of bowel wall thickening, intestinal obstruction or gross mass. Stomach shows no significant interval abnormality. Nonspecific air-fluid level in the duodenum. There is no lymphadenopathy involving the abdomen and pelvis. Vascular ectasia of the abdominal aorta is seen in the infrarenal region. The bladder is fluid-filled with no gross abnormality. Prostate gland calcifications are noted. Extra-abdominal and extrapelvic soft tissue structures show surgical change, but otherwise unremarkable for acute finding. IMPRESSION: 1.: There is interval development of a small loop of small bowel intestine in the proximal left inguinal hernia region. There is no evidence of intestinal obstruction seen. Correlation for pain in this region is suggested. 2: Again seen postop changes with colon resection. There is no evidence of bowel wall thickening or acute finding. There is small to moderate amount of stool in the region of the residual colon in the pelvis. 3: There is interval development of a small amount of patchy airspace disease involving the posterior right lung base which may represent pneumonia. 4: The remainder of this exam shows no other significant interval abnormality. Assessment/Plan Admission Diagnosis Sepsis, Pneumonia Admission Status: Inpatient Order (span 2 midnights) Reason for Inpatient Admission: Needs IV abx, cardiology evaluation Diagnosis/Problems Diagnosis/Problems (1) Sepsis Status: Acute Assessment & Plan: Sepsis on arrvail with leukocytosis with tachycardia RLL pneumonia on CXR No hypotension or lactic acidosis so no indication for fluid resuscitation Cultures obtained Continue Rocephin Qualifiers: Sepsis type: sepsis due to unspecified organism Qualified Codes: A41.9 - Sepsis, unspecified organism (2) Right middle lobe pneumonia Status: Acute Assessment & Plan: Continue on Rocephin Await cultures Pulm consulted, appreciate recs Qualifiers: Pneumonia type: due to unspecified organism Qualified Codes: J18.1 - Lobar pneumonia, unspecified organism (3) Elevated troponin Status: Acute Assessment & Plan: H/o of CAD and PAD Troponin slightly elevated and trended down this AM Cardiology consulted, appreciate recs Monitor on telemetry (4) Influenza B Assessment & Plan: Tamiflu started Droplet precautions (5) Essential (primary) hypertension Status: Chronic Assessment & Plan: Hold home meds as BP well controlled and about to get lasix (6) CAD (coronary artery disease) Status: Chronic Assessment & Plan: Elevated troponin as above Cardiology consulted, appreciate recs Qualifiers: Coronary Disease-Associated Artery/Lesion type: [place] artery [place] vs. transplanted heart: [place] heart Associated angina: without angina Qualified Codes: I25.10 - Atherosclerotic heart disease of [place] coronary artery without angina pectoris (7) COPD (chronic obstructive pulmonary disease) Status: Acute Assessment & Plan: Continue Advair MAT protocol No evidence of exacerbation Qualifiers: COPD type: unspecified COPD Qualified Codes: J44.9 - Chronic obstructive pulmonary disease, unspecified (8) Hypothyroidism Status: Chronic Assessment & Plan: Resume home supplement Qualifiers: Hypothyroidism type: unspecified Qualified Codes: E03.9 - Hypothyroidism, unspecified (9) Vomiting Status: Acute Assessment & Plan: Resolved, tolerating diet Zofran prn Qualifiers: Vomiting type: unspecified Vomiting Intractability: non-intractable Nausea presence: with nausea Qualified Codes: R11.2 - Nausea with vomiting, unspecified (10) Rheumatoid arthritis Status: Chronic Assessment & Plan: Hold methotrexate while admitted for sepsis Continue home pain meds Qualifiers: Rheumatoid arthritis location: multiple sites Rheumatoid factor presence: unspecified presence Qualified Codes: M06.9 - Rheumatoid arthritis, unspecified (11) Normocytic anemia Status: Chronic Assessment & Plan: Appears to be near baseline Consider outpatient IV iron once over infection Clinical Quality Measures DVT/VTE Risk/Contraindication: Risk Factor Score Per Nursin RFS Level Per Nursing on Admit: 4+=Very High NOLBERTO PARSONS MD Nov 14, 2018 07:29
[2018-11-14] MEDS ORDERED: FLU QUADRIvalent (5+ YOA) 2018-2019 (AFLURIA) 0.5 ML IM ONE (07:30)
[2018-11-14 08:00] VITALS: BP 109/65
[2018-11-14] MEDS ORDERED: RT-ADVAIR HFA 115/21 MCG PER PUFF IH SCH (08:00)
[2018-11-14] MEDS: PANTOPRAZOLE 40 MG (PROTONIX) VIAL IV SCH (08:43)
[2018-11-14] MEDS: OSELTAMIVIR 75 MG (TAMIFLU) CAPSULE PO SCH ×2 (08:44→20:33)
[2018-11-14] MEDS ORDERED: KCL 10 MEQ TAB (MICRO K) PO NR (09:00)
[2018-11-14] MEDS ORDERED: FUROSEMIDE 40 MG/4 ML INJ (LASIX) IVP NR (09:00)
--- NOTE | 2018-11-14 09:59 | Consultation-Cardiology ---
HPI-Cardiology Cardiology Consultation Date of Consultation 11/14/18 Date of Admission Time Seen by Provider: 09:53 Indication: coronary artery disease HPI 73 years old gentleman admitted with pneumonia, noted to have influenza B. He was having fever and shortness of breath and cough. This morning is feeling better, noted to have mild elevation in troponin, had history of cardiac catheterization 2012 reportedly had [id number] coronary artery disease nonobstructive disease. Patient is feeling better today. Denied any active pain. No palpitation. No syncope or near syncopal episodes. No claudications. Home Medications & Allergies Allergies: Coded Allergies: Sulfa (Sulfonamide Antibiotics) (Verified Allergy, Mild, GI UPSET, ) Home Medication List Reviewed: Yes [id number] Hx Patient Social History Marital Status: Alcohol Use: Denies Use Recreational Drug Use: No (NONE FOR YEARS) Smoking Status: Former Smoker Type Used: Cigarettes Recent Foreign Travel: No Recent Infectious Disease Expo: No Recent Hopitalizations: No Immunizations Up To Date Tetanus Booster (TDap): Unknown Date of Pneumonia Vaccine: Aug 08, 2015 Past Medical History past medical history as described below Family Medical History Significant Family History: No Pertinent Family Hx, Diabetes Family Medical Hx noncontributory to his current condition Family History: Patient reports no known family medical history. Review of Systems Constitutional: see HPI, fever, malaise EENTM: see HPI Respiratory: see HPI, cough, dyspnea on exertion Cardiovascular: see HPI; No chest pain, No edema, No Hx of Intervention, No palpitations, No syncope, No vascular heart diseas, No other Gastrointestinal: no symptoms reported, see HPI Genitourinary: no symptoms reported, see HPI Musculoskeletal: no symptoms reported, see HPI Skin: no symptoms reported, see HPI Psychiatric/Neurological: No Symptoms Reported, See HPI Reviewed Test Results Reviewed Test Results Lab Laboratory Tests Test 11/13/18 14:50 11/13/18 16:00 11/13/18 17:25 11/13/18 20:51 Range/Units White Blood Count 12.7 H 4.3-11.0 10^3/uL Red Blood Count 3.88 L 4.35-5.85 10^6/uL Hemoglobin 11.3 L 13.3-17.7 G/DL Hematocrit 35 L 40-54 % Mean Corpuscular Volume 91 80-99 FL Mean Corpuscular Hemoglobin 29 25-34 PG Mean Corpuscular Hemoglobin Concent 32 32-36 G/DL Red Cell Distribution Width 14.9 H 10.0-14.5 % Platelet Count 275 130-400 10^3/uL Mean Platelet Volume 9.2 7.4-10.4 FL Neutrophils (%) (Auto) 82 H 42-75 % Lymphocytes (%) (Auto) 11 L 12-44 % Monocytes (%) (Auto) 7 0-12 % Eosinophils (%) (Auto) 0 0-10 % Basophils (%) (Auto) 0 0-10 % Neutrophils # (Auto) 10.3 H 1.8-7.8 X 10^3 Lymphocytes # (Auto) 1.4 1.0-4.0 X 10^3 Monocytes # (Auto) 0.9 0.0-1.0 X 10^3 Eosinophils # (Auto) 0.0 0.0-0.3 10^3/uL Basophils # (Auto) 0.0 0.0-0.1 10^3/uL Sodium Level 140 135-145 MMOL/L Potassium Level 3.9 3.6-5.0 MMOL/L Chloride Level 102 98-107 MMOL/L Carbon Dioxide Level 29 21-32 MMOL/L Anion Gap 9 5-14 MMOL/L Blood Urea Nitrogen 25 H 7-18 MG/DL Creatinine 1.26 0.60-1.30 MG/DL Estimat Glomerular Filtration Rate 56 BUN/Creatinine Ratio 20 Glucose Level 118 H 70-105 MG/DL Calcium Level 9.3 8.5-10.1 MG/DL Corrected Calcium 9.9 8.5-10.1 MG/DL Magnesium Level 1.5 L 1.8-2.4 MG/DL Total Bilirubin 0.8 0.1-1.0 MG/DL Aspartate Amino Transf (AST/SGOT) 48 H 5-34 U/L Alanine Aminotransferase (ALT/SGPT) 23 0-55 U/L Alkaline Phosphatase 71 40-136 U/L Troponin I 0.183 H 0.182 H <0.028 NG/ML C-Reactive Protein High Sensitivity 17.01 H 0.00-0.50 MG/DL Total Protein 6.3 L 6.4-8.2 GM/DL Albumin 3.3 3.2-4.5 GM/DL Lactic Acid Level 1.78 0.50-2.00 MMOL/L Urine Color BILL H Urine Clarity SLIGHTLY CLOUDY Urine pH 6.5 5-9 Urine Specific [place] 1.010 L 1.016-1.022 Urine Protein 2+ H NEGATIVE Urine Glucose (UA) NEGATIVE NEGATIVE Urine Ketones NEGATIVE NEGATIVE Urine Nitrite NEGATIVE NEGATIVE Urine Bilirubin NEGATIVE NEGATIVE Urine Urobilinogen 1 NORMAL MG/DL Urine Leukocyte Esterase 1+ H NEGATIVE Urine RBC (Auto) 1+ H NEGATIVE Urine RBC 0-2 /HPF Urine WBC 2-5 /HPF Urine Crystals NONE /LPF Urine Bacteria NEGATIVE /HPF Urine Casts NONE /LPF Urine Mucus LARGE H /LPF Urine Culture Indicated NO Test 11/14/18 03:25 11/14/18 04:33 Range/Units White Blood Count 9.6 4.3-11.0 10^3/uL Red Blood Count 3.40 L 4.35-5.85 10^6/uL Hemoglobin 9.6 L 13.3-17.7 G/DL Hematocrit 31 L 40-54 % Mean Corpuscular Volume 92 80-99 FL Mean Corpuscular Hemoglobin 28 25-34 PG Mean Corpuscular Hemoglobin Concent 31 L 32-36 G/DL Red Cell Distribution Width 15.0 H 10.0-14.5 % Platelet Count 207 130-400 10^3/uL Mean Platelet Volume 9.3 7.4-10.4 FL Neutrophils (%) (Auto) 73 42-75 % Lymphocytes (%) (Auto) 17 12-44 % Monocytes (%) (Auto) 9 0-12 % Eosinophils (%) (Auto) 1 0-10 % Basophils (%) (Auto) 0 0-10 % Neutrophils # (Auto) 7.0 1.8-7.8 X 10^3 Lymphocytes # (Auto) 1.6 1.0-4.0 X 10^3 Monocytes # (Auto) 0.9 0.0-1.0 X 10^3 Eosinophils # (Auto) 0.1 0.0-0.3 10^3/uL Basophils # (Auto) 0.0 0.0-0.1 10^3/uL Sodium Level 139 135-145 MMOL/L Potassium Level 4.2 3.6-5.0 MMOL/L Chloride Level 108 H 98-107 MMOL/L Carbon Dioxide Level 22 21-32 MMOL/L Anion Gap 9 5-14 MMOL/L Blood Urea Nitrogen 24 H 7-18 MG/DL Creatinine 1.01 0.60-1.30 MG/DL Estimat Glomerular Filtration Rate > 60 BUN/Creatinine Ratio 24 Glucose Level 84 70-105 MG/DL Calcium Level 8.8 8.5-10.1 MG/DL Corrected Calcium 9.8 8.5-10.1 MG/DL Total Bilirubin 0.7 0.1-1.0 MG/DL Aspartate Amino Transf (AST/SGOT) 43 H 5-34 U/L Alanine Aminotransferase (ALT/SGPT) 23 0-55 U/L Alkaline Phosphatase 63 40-136 U/L Troponin I 0.157 H <0.028 NG/ML B-Type Natriuretic Peptide 763.1 H <100.0 PG/ML Total Protein 5.3 L 6.4-8.2 GM/DL Albumin 2.8 L 3.2-4.5 GM/DL Phosphorus Level 2.8 2.3-4.7 MG/DL Magnesium Level 1.6 L 1.8-2.4 MG/DL Physical Exam Vital Signs Vital Signs - First Documented 11/13/18 15:03 Temp 99.8 Pulse 93 Resp 20 B/P (MAP) 100/77 (85) Pulse Ox 100 O2 Delivery Room Air Capillary Refill : Less Than 3 SecondsLess Than 3 Seconds Height, Weight, BMI Height: 5'9.00" Weight: 147lbs. 0.0oz. 66.350843kp; 21.7 BMI Method:Estimated General Appearance: No Apparent Distress, WD/WN Eyes: Bilateral Eye Normal Inspection, Bilateral Eye PERRL, Bilateral Eye EOMI HEENT: PERRL/EOMI, TMs Normal, Normal ENT Inspection, Pharynx Normal Neck: Full Range of Motion, Normal Inspection, Non Tender, Supple, Carotid Bruit Respiratory: Chest Non Tender, Lungs Clear, Normal Breath Sounds, No Accessory Muscle Use, No Respiratory Distress Cardiovascular: Regular Rate, Rhythm, No Edema, No Gallop, No JVD, No Murmur, Normal Peripheral Pulses Gastrointestinal: Normal Bowel Sounds, No Organomegaly, No Pulsatile Mass, Non Tender, Soft Back: Normal Inspection, No CVA Tenderness, No Vertebral Tenderness Extremity: Normal Capillary Refill, Normal Inspection, Normal Range of Motion, Non Tender, No Calf Tenderness, No Pedal Edema Neurologic/Psychiatric: Alert, Oriented x3, No Motor/Sensory Deficits, Normal Mood/Affect Skin: Normal Color, Warm/Dry Lymphatic: No Adenopathy A/P-Cardiology Admission Diagnosis Right lower lobe pneumonia Coronary artery disease Peripheral arterial disease Hypertension Assessment/Plan Right lower lobe pneumonia, receiving antibiotic, diagnosed with influenza B and started on Tamiflu, reporting improvement. Mild troponin elevation, did not reach the positive level, trending down. History of coronary artery disease with mild disease per cardiac catheterization in October 2016. I recommend conservative management, if patient became symptomatic or started to have chest pain will consider cardiac catheterization in the future as an outpatient History of congestive heart failure with nonischemic cardiomyopathy, resolved, last echo showed ejection fraction 50 percent, I will evaluate 2-D echo History of anoxic encephalopathy and pneumonia and sepsis in early October 2016. History of extensive and severe COPD. History of C. difficile colitis with partial colectomy in the past, managed by primary care physician History of abdominal hernia repair surgery History of acute renal failure, continue to monitor renal function Peripheral vascular disease with history of nonhealing wounds bilaterally. Peripheral angiogram done 12/04/16 revealed moderate atherosclerotic disease on the left lower extremity, the anterior tibial artery is severely diseased on the left lower extremity but the ulcer on the left lower extremity has healed. Moderate disease of the right lower extremity with good flow, with three-vessel flow down to the f Medical therapy was recommended. The ulcer has healed. SEAMUS in November 2017 was abnormal and it was 0.9 on the right and 0.7 on the left, TBI 0.48 on the right and 0.34 in the left. Continue to monitor Mild bilateral carotid stenosis, ultrasound was done in November 2017. Continue to monitor Small infrarenal abdominal aortic aneurysm noted during peripheral angiogram. Continue to monitor Hypertension, continue to monitor blood pressure Hyperlipidemia, lipid profile was done in May 2018 showing total cholesterol 162, HDL 50, triglyceride 103, LDL 92. Continue on current medication monitor Hyperthyroidism, history of hypothyroidism and Levothroid, managed by primary care physician History of pulmonary hypertension, continue to monitor History of rheumatoid arthritis. COPD, managed and followed by primary care physician Tobaccoism, patient has stopped smoking in December 2016. Encouraged to continue with smoking cessation Clinical Quality Measures DVT/VTE Risk/Contraindication: Risk Factor Score Per Nursin RFS Level Per Nursing on Admit: 4+=Very High TORY HALL MD Nov 14, 2018 09:59
--- NOTE | 2018-11-14 10:09 | Physical Therapy Evaluation ---
PT Evaluation-General Medical Diagnosis Admission Date Nov 13, 2018 at 18:28 Medical Diagnosis: PNA, Influenza B Onset Date: Nov 13, 2018 Therapy Diagnosis Therapy Diagnosis: decreased mobility Height/Weight Height (Feet): 5 Height (Inches): 9.00 Weight (Pounds): 147 Weight (Ounces): 0.0 Precautions Precautions/Isolations: Droplet Isolation, Standard Precautions Weight Bear Status Right Lower Extremity: Right Full Weight Bearing Left Lower Extremity: Left Full Weight Bearing Referral Physician: Danis Perales DO Reason for Referral: Evaluation/Treatment Medical History Pertinent Medical History: Arthritis, CAD, COPD, GERD, HTN, Hypothroidism, PVD , Rheumatoid Arthritis Additional Medical History Renal Failure, Psoriasis, bowel necrosis and colon resection Current History Pt to ER with c/o of 2-3 days of vomiting and weakness. Reviewed History: Yes Social History Home: Single Level Current Living Status: Spouse Entry Into Home: Stairs With Railing PT Steps Into Home: 4 Prior/Core FIM Prior Level of Function Therapy Code Descriptions/Definitions Functional [place] Measure: 0=Not Assessed/NA 4=Minimal Assistance 1=Total Assistance 5=Supervision or Setup 2=Maximal Assistance 6=Modified [place] 3=Moderate Assistance 7=Complete [place] Therapy Quality Codes: 6 Independent with activity with or without an assistive device 5 Patient requires set up or clean up by helper. Patient completes activity by themselves 4 Supervision or touching assist (CGA). Deer provide cues , steadying assist 3 The helper provides less than half the effort to complete the activity 2 The helper provides more than half the effort to complete the activity 1 Dependent. The helper does all the effort to complete an activity 7 Patient refused to complete or attempt activity 9 The patient did not perform the activity before the current illness or injury 88 Not attempted due to Medical conditions or safety concerns Functional Abilities and Goals: Independent: Patient completed the activities by him/herself, with or without an assistive device, with no assistance from a helper. Needed Some Help: Patient needed partial assistance from another person to complete activities. Dependent: A helper completed the activities for the patient. Unknown: Not Applicable: Bed Mobility: 7 Transfers (B,C,W/C) (FIM): 7 Gait: 6 Stairs: 6 Indoor Mobility (Ambulation): Independent Stairs: Independent Prior Devices Use: Walker Prior Device Use: FWW and cane PT Evaluation-Current Subjective Pt is in bed and agrees to PT. Reports he won't be able to move far because he doesn't think he can hold his bowels. Pain Numeric Pain Scale: 0-No Pain Location: No Pain Reported Pt/Family Goals Pt to return home. Objective Patient Orientation: Person, Place, Situation, Normal For Age Attachments: SCD's ROM/Strength ROM Lower Extremities B WNL Strength Lower Extremities gross motor bilateral (4/5) Integumentary/Posture Bowel Incontinence: Yes Bladder Incontinence: No Neuromuscular (Tone, Coordination, Reflexes) NT Sensory Vision: Functional Hearing: Functional Transfers Therapy Code Descriptions/Definitions Functional [place] Measure: 0=Not Assessed/NA 4=Minimal Assistance 1=Total Assistance 5=Supervision or Setup 2=Maximal Assistance 6=Modified [place] 3=Moderate Assistance 7=Complete [place] Transfers (B, C, W/C) (FIM): 5 Scootin Supine to/from Sit: 5 Sit to/from Stand: 5 Gait Mode of Locomotion: Walk Anticipated Mode of Locomotion: Walk Gait (FIM): 1 Distance (FIM): 1=up to 49 ft Distance: 5' Gait Level of Assist: 4 Gait Persons Needed: 1 Gait Assistive Device: FWW Balance Sitting Static: Good Sitting Dynamic: Good Standing Static: Good Standing Dynamic: Good Assessment/Needs Pt was able to perform all bed mobility with SBA. Pt able to transfer EOB to FWW with SBA. Pt amb with FWW to recliner with CGA for safety. Pt required time to perform activity due to requests to use urinal. Pt has a R valgus deformity. PT assisted nurse with getting pt ready to transfer to 4th floor. Pt was able to transfer into w/c with SBA. Nurse has pt and heading to 4th floor. Rehab Potential: Good Post Rehab Potential-Barriers: co-morbidities PT Short Term Goals Short Term Goals Time Frame: Nov 21, 2018 Transfers (B,C,W/C) (FIM): 6 Gait (FIM): 6 Distance (FIM): 3=150 ft Gait Distance Comment: 200' Gait Level of Assist: 6 Gait Assistive Device: FWW PT Plan Problem List Problem List: Activity Tolerance, Functional Strength, Safety, Balance, Gait, Transfer, Bed Mobility, ROM Treatment/Plan Treatment Plan: Continue Plan of Care Treatment Plan: Bed Mobility, Education, Functional Activity Juli, Functional Strength, Gait, Safety, Therapeutic Exercise, Transfers Treatment Duration: Nov 21, 2018 Frequency: 6 times per week Estimated Hrs Per Day: .25 hour per day (15-30') Patient and/or Family Agrees t: Yes Safety Risks/Education Patient Education: Gait Training, Transfer Techniques, Correct Positioning, Safety Issues Teaching Recipient: Patient Teaching Methods: Demonstration, Discussion Response to Teaching: Reinforcement Needed Discharge Recommendations Plan Patient will perform bed mobility and transfer training, balance and endurance training, functional strengthening, stair training, gait training, and education , to improve functional mobility and independence at home. Therapy D/C Recommendations: Home w/ Family Support Time/GCodes Time In: 930 Time Out: 945 Total Billed Treatment Time: 15 Total Billed Treatment 1 visit EVM 15 min ELSY AGUIRRE PT Nov 14, 2018 10:09
[2018-11-14] MEDS: oxyCODONE/APAP 10/325MG (PERCOCET 10) TABLET PO PRN ×2 (11:18→18:05)
[2018-11-14] MEDS: ADVAIR HFA 115/21 MCG INHALER 8 GM IH SCH ×2 (11:46→19:19)
--- NOTE | 2018-11-14 11:55 | Occupational Therapy Eval ---
OT Evaluation-General/PLF Medical Diagnosis Admission Date Nov 13, 2018 at 18:28 Medical Diagnosis: PNA, Influenza B Onset Date: Nov 13, 2018 Therapy Diagnosis Therapy Diagnosis: Weakness Height/Weight Height (Feet): 5 Height (Inches): 9.00 Weight (Pounds): 147 Weight (Ounces): 0.0 Precautions Precautions/Isolations: Droplet Isolation, Standard Precautions Safety Interventions: None Weight Bear Status Weight Bearing Restriction: Weight Bearing/Tolerated Referral Physician: Danis Perales DO Referral Reason: Activity Tolerance, Self Care, Evaluation/Treatment, Strengthening/ROM Medical History Pertinent Medical History: Arthritis, CAD, COPD, GERD, HTN, Hypothroidism, PVD , Rheumatoid Arthritis Additional Medical History Bowel necrosis, bowel resection Current History Pt. came to ED after three days of nausea, vomiting, diarrhea, and weakness Reviewed History: Yes Social History Home: Single Level Current Living Status: Spouse Entry Into Home: Stairs With Railing Steps Into Home: 4 ADL-Prior Level of Function Therapy Code Descriptions/Definitions Functional [place] Measure: 0=Not Assessed/NA 4=Minimal Assistance 1=Total Assistance 5=Supervision or Setup 2=Maximal Assistance 6=Modified [place] 3=Moderate Assistance 7=Complete [place] Therapy Quality Codes: 6 Independent with activity with or without an assistive device 5 Patient requires set up or clean up by helper. Patient completes activity by themselves 4 Supervision or touching assist (CGA). [place] provide cues , steadying assist 3 The helper provides less than half the effort to complete the activity 2 The helper provides more than half the effort to complete the activity 1 Dependent. The helper does all the effort to complete an activity 7 Patient refused to complete or attempt activity 9 The patient did not perform the activity before the current illness or injury 88 Not attempted due to Medical conditions or safety concerns Functional Abilities and Goals: Independent: Patient completed the activities by him/herself, with or without an assistive device, with no assistance from a helper. Needed Some Help: Patient needed partial assistance from another person to complete activities. Dependent: A helper completed the activities for the patient. Unknown: Not Applicable: ADL PLOF Comments Pt. states that he has a walker and canes at home, but does not need to use them usually. States that he is fully independent with bathing and dressing. Lives with spouse who is not in good health. Self Care: Independent Functional Cognition: Independent DME/Equipment: Bath Bench, Tub/Shower DME/Equipment Comments Walker, canes. Drive Self: Yes OT Current Status Subjective Pt. does not report any pain. Appearance Pt. up in chair. Agrees to work with OT. RT came in to give pt. breathing treatment. Session shortened. Mental Status/Objective Patient Orientation: Person, Place, Time, Situation Current Glasses/Contacts: Yes Upper Extremity ROM Pt. does have limited shoulder and hand function due to severe RA. However, pt. is functional with movements. ADL-Treatment Therapy Code Descriptions/Definitions Functional [place] Measure: 0=Not Assessed/NA 4=Minimal Assistance 1=Total Assistance 5=Supervision or Setup 2=Maximal Assistance 6=Modified [place] 3=Moderate Assistance 7=Complete [place] Therapy Quality Codes: 6 Independent with activity with or without an assistive device 5 Patient requires set up or clean up by helper. Patient completes activity by themselves 4 Supervision or touching assist (CGA). [place] provide cues , steadying assist 3 The helper provides less than half the effort to complete the activity 2 The helper provides more than half the effort to complete the activity 1 Dependent. The helper does all the effort to complete an activity 7 Patient refused to complete or attempt activity 9 The patient did not perform the activity before the current illness or injury 88 Not attempted due to Medical conditions or safety concerns Lower Body Dressing (FIM): 5 (Pt. is able to doff/don slipper socks.) Transfers (B, C, W/C) (FIM): 5 (SBA to stand and transfer to bed. Pt. able to transfer sit-supine and to perform bed mobility with no difficulty.) Other Treatments Pt. states that overall, he is feeling better. Educated him on OT goals, but pt. is well known to this therapist and is agreeable to ADL training/ strengthening. Education OT Patient Education: Correct positioning, Modified ADL techniques, Progress toward Goal/Update tx plan, Purpose of tx/functional activities, Reviewed precautions, Transfer techniques Teaching Recipient: Patient Teaching Methods: Demonstration, Discussion Response to Teaching: Verbalize Understanding, Return Demonstration OT Short Term Goals Short Term Goals Transfers (B,C,W/C) (FIM): 6 1=Demonstrate adherence to instructed precautions during ADL tasks. 2=Patient will verbalize/demonstrate understanding of assistive devices/ modifications for ADL. 3=Patient will improve strength/tolerance for activity to enable patient to perform ADL's. OT Electroless Plater Goals Usp Goals Time Frame: Nov 28, 2018 Eating (FIM): 6 Grooming(FIM): 6 Bathing(FIM): 5 Upper Body Dressing(FIM): 6 Lower Body Dressing(FIM): 6 Toileting(FIM): 6 Transfers (B,C,W/C) (FIM): 6 Toilet/Commode Transfer(FIM): 6 Shower Transfer(FIM): 5 Additional Goals: 1-Demonstrate ADL Tasks, 2-Verbalize Understanding, 3- ImproveStrength/Juli 1=Demonstrate adherence to instructed precautions during ADL tasks. 2=Patient will verbalize/demonstrate understanding of assistive devices/ modifications for ADL. 3=Patient will improve strength/tolerance for activity to enable patient to perform ADL's. OT Education/Plan Problem List/Assessment Assessment: Decreased Activ Tolerance, Impaired I ADL's, Impaired Self-Care Skills Discharge Recommendations Plan/Recommendations: Continue POC Therapy D/C Recommendations: Home w/ Family Support Treatment Plan/Plan of Care Treatment,Training & Education: Yes Patient would benefit from OT for education, treatment and training to promote independence in ADL's, mobility, safety and/or upper extremity function for ADL' s. Plan of Care: ADL Retraining, Functional Mobility, UE Funct Exercise/Act Treatment Duration: Nov 28, 2018 Frequency: 5 times per week Estimated Hrs Per Day: .25 hour per day Agreement: Yes Rehab Potential: Good Time/GCodes Start Time: 11:30 Stop Time: 11:47 Total Time Billed (hr/min): 17 Billed Treatment Time 1, JENNI ELIZABETH OT Nov 14, 2018 11:55
[2018-11-14 12:30] VITALS: BP 105/60
--- NOTE | 2018-11-14 15:03 | Discharge Inst-Simple/Standard ---
Discharge Inst-Standard Discharge Medications New, Converted or Re-Newed RX: Transmitted to Pharmacy Patient Instructions/Follow Up Plan of Care/Instructions/FU: Please continue to take your medications as written. Please follow up with Dr Grajeda in the next week to followup this hospital stay. Please follow up with Dr Davis as well. Activity as Tolerated: Yes Discharge Diet: Cardiac Diet Return to The Hospital For: Shortness of breath, chest pain, confusion, fevers, abdominal pain, if you feel you are getting worse. Planned Outpatient Orders/Ref. Pneu Vac Indicated: Yes NOLBERTO GONZALEZ MD Nov 14, 2018 15:03
[2018-11-14 16:53] VITALS: BP 112/73
[2018-11-14] MEDS ORDERED: VANCOMYCIN 1250 MG/NS 250 ML IVPB IV SCH ×2 (19:30)
[2018-11-14 20:11] VITALS: BP 138/55
[2018-11-15] VITALS: BP 117/61
[2018-11-15 04:00] VITALS: BP 114/66
[2018-11-15] MEDS ORDERED: cefTRIAXone 1,000 MG IV (ROCEPHIN) VIAL ONE (05:07)
[2018-11-15] MEDS ORDERED: WATER (STERILE) FOR INJECTION 10 ML ONE (05:07)
[2018-11-15] MEDS: ONDANSETRON 4 MG/2 ML (SDV) Z0FRAN IV PRN ×3 (05:13→15:47)
[2018-11-15] MEDS: cefTRIAXone FOR IV USE 1,000 MG in WATER (STERILE) FOR INJECTION 10 ML IV SCH (05:13)
[2018-11-15] MEDS: oxyCODONE/APAP 10/325MG (PERCOCET 10) TABLET PO PRN ×3 (05:37→15:45)
[2018-11-15] MEDS: RT-ALBUTEROL/IPRATROPIUM 3 ML (DUONEB) VIAL INH SCH ×4 (06:49→19:33)
[2018-11-15] MEDS: ADVAIR HFA 115/21 MCG INHALER 8 GM IH SCH ×2 (06:49→19:33)
[2018-11-15 07:05] LABS: BASOPHILS % (AUTO) 0 % (0-10); EOSINOPHILS # (AUTO) 0.2 10^3/uL (0.0-0.3); EOSINOPHILS % (AUTO) 3 % (0-10); HEMATOCRIT 29 % (40-54); HEMOGLOBIN 9.1 G/DL (13.3-17.7); LYMPHOCYTES # (AUTO) 1.1 X 10^3 (1.0-4.0); LYMPHOCYTES % (AUTO) 15 % (12-44); MEAN CORPUSCULAR HEMOGLOBIN 29 PG (25-34); MEAN CORPUSCULAR HGB CONC 31 G/DL (32-36); MEAN CORPUSCULAR VOLUME 93 FL (80-99); MEAN PLATELET VOLUME 9.5 FL (7.4-10.4); MONOCYTES # (AUTO) 0.6 X 10^3 (0.0-1.0); MONOCYTES % (AUTO) 9 % (0-12); NEUTROPHILS # (AUTO) 5.4 X 10^3 (1.8-7.8); NEUTROPHILS % (AUTO) 73 % (42-75); PLATELET COUNT 219 10^3/uL (130-400); RED CELL DISTRIBUTION WIDTH 15.1 % (10.0-14.5); WHITE BLOOD COUNT 7.3 10^3/uL (4.3-11.0)
[2018-11-15 07:21] LABS: BUN/CREATININE RATIO 29; CALCIUM 9.1 MG/DL (8.5-10.1); CARBON DIOXIDE 25 MMOL/L (21-32); CHLORIDE 106 MMOL/L (98-107); GFR ESTIMATED > 60; GLUCOSE 113 MG/DL (70-105); POTASSIUM 3.7 MMOL/L (3.6-5.0); SODIUM 140 MMOL/L (135-145)
[2018-11-15 08:00] VITALS: BP 125/71
[2018-11-15] MEDS ORDERED: OSLT75C PO (08:17)
[2018-11-15] MEDS: PANTOPRAZOLE 40 MG (PROTONIX) VIAL IV SCH (08:18)
[2018-11-15] MEDS: OSELTAMIVIR 75 MG (TAMIFLU) CAPSULE PO SCH ×2 (08:18→20:04)
--- NOTE | 2018-11-15 08:20 | Discharge Summary-Hospitalist ---
Diagnosis/Chief Complaint Date of Admission Nov 13, 2018 at 18:28 Date of Discharge Discharge Date: Nov 15, 2018 Admission Diagnosis Sepsis, Pneumonia Discharge Diagnosis (1) Sepsis Status: Acute Assessment & Plan: Sepsis on arrvail with leukocytosis with tachycardia RLL pneumonia on CXR No hypotension or lactic acidosis so no indication for fluid resuscitation Cultures obtained Continue Rocephin (2) Right middle lobe pneumonia Status: Acute Assessment & Plan: Continue on Rocephin Await cultures Pulm consulted, appreciate recs (3) Elevated troponin Status: Resolved Assessment & Plan: H/o of CAD and PAD Troponin slightly elevated and trended down this AM Cardiology consulted, appreciate recs Monitor on telemetry (4) Influenza B Assessment & Plan: Tamiflu started Droplet precautions (5) Essential (primary) hypertension Status: Chronic Assessment & Plan: Hold home meds as BP well controlled and about to get lasix (6) CAD (coronary artery disease) Status: Chronic Assessment & Plan: Elevated troponin as above Cardiology consulted, appreciate recs (7) COPD (chronic obstructive pulmonary disease) Status: Acute Assessment & Plan: Continue Advair MAT protocol No evidence of exacerbation (8) Hypothyroidism Status: Chronic Assessment & Plan: Resume home supplement (9) Vomiting Status: Acute Assessment & Plan: Resolved, tolerating diet Zofran prn (10) Rheumatoid arthritis Status: Chronic Assessment & Plan: Hold methotrexate while admitted for sepsis Continue home pain meds (11) Normocytic anemia Status: Chronic Assessment & Plan: Appears to be near baseline Consider outpatient IV iron once over infection Discharge Summary Discharge Physical Exam Allergies: Coded Allergies: Sulfa (Sulfonamide Antibiotics) (Verified Allergy, Mild, GI UPSET, ) Vitals & I&Os Vital Signs Date Time Temp Pulse Resp B/P (MAP) Pulse Ox O2 Delivery O2 Flow Rate FiO2 11/15/18 15:33 97.2 83 20 162/88 (112) 98 Room Air 11/14/18 04:00 General Appearance: No Apparent Distress, WD/WN HEENT: PERRL/EOMI, TMs Normal, Normal ENT Inspection, Pharynx Normal Respiratory: Chest Non Tender, Lungs Clear, Normal Breath Sounds, No Accessory Muscle Use, No Respiratory Distress Cardiovascular: Regular Rate, Rhythm, No Edema, No Gallop, No JVD, No Murmur, Normal Peripheral Pulses Gastrointestinal: Normal Bowel Sounds, No Organomegaly, No Pulsatile Mass, Non Tender, Soft Extremity: Normal Capillary Refill, Normal Inspection, Normal Range of Motion, Non Tender, No Calf Tenderness, No Pedal Edema Skin: Normal Color, Warm/Dry Neurologic/Psychiatric: Alert, Oriented x3, No Motor/Sensory Deficits, Normal Mood/Affect Hospital Course Labs (last 24 hrs) Laboratory Tests 11/15/18 06:23: White Blood Count 7.3, Red Blood Count 3.16L, Hemoglobin 9.1L, Hematocrit 29L, Mean Corpuscular Volume 93, Mean Corpuscular Hemoglobin 29, Mean Corpuscular Hemoglobin Concent 31L, Red Cell Distribution Width 15.1H, Platelet Count 219, Mean Platelet Volume 9.5, Neutrophils (%) (Auto) 73, Lymphocytes (%) (Auto) 15, Monocytes (%) (Auto) 9, Eosinophils (%) (Auto) 3, Basophils (%) (Auto) 0, Neutrophils # (Auto) 5.4, Lymphocytes # (Auto) 1.1, Monocytes # (Auto) 0.6, Eosinophils # (Auto) 0.2, Basophils # (Auto) 0.0, Sodium Level 140, Potassium Level 3.7, Chloride Level 106, Carbon Dioxide Level 25, Anion Gap 9, Blood Urea Nitrogen 29H, Creatinine 1.00, Estimat Glomerular Filtration Rate > 60, BUN/ Creatinine Ratio 29, Glucose Level 113H, Calcium Level 9.1 Microbiology 11/13/18 Blood Culture - Preliminary, Resulted No growth 11/14/18 Influenza Types A,B Antigen (DIONISIO) - Final, Complete Patient resulted labs reviewed. Pending Labs Imaging: Reviewed Imaging Report Discharge Home Medications: Active Scripts Active Tamiflu (Oseltamivir Phosphate) 75 Mg Cap 75 Mg PO BID Reported Methotrexate Tablet (Methotrexate) 2.5 Mg Tablet 12.5 Mg PO FR Temazepam 15 Mg Capsule 15 Mg PO HS Citalopram HBr (Citalopram Hydrobromide) 10 Mg Tablet 10 Mg PO DAILY Mirapex (Pramipexole Di-HCl) 0.25 Mg Tablet 0.25 Mg PO DAILY NOT ON FILE AT [facility] Losartan Potassium 50 Mg Tablet 50 Mg PO DAILY Hydrochlorothiazide 25 Mg Tablet 25 Mg PO DAILY LAST FILLED #Oct Symbicort 160-4.5 Mcg Inhaler (Budesonide/Formoterol Fumarate) 10.2 Gm Hfa.aer.ad 2 Puff IH BID Ondansetron HCl 8 Mg Tablet 8 Mg PO Q8H PRN Oxycodone-Acetaminophen 10-325 (Oxycodone HCl/Acetaminophen) 1 Each Tablet 1 Tab PO Q4H PRN Carvedilol 12.5 Mg Tablet 12.5 Mg PO BID Levothyroxine Sodium 200 Mcg Tablet 200 Mcg PO DAILY Aspirin 81 Mg Tab.chew 81 Mg PO DAILY Pantoprazole Sodium 40 Mg Tablet.dr 40 Mg PO DAILY Morphine Sulfate ER (Morphine Sulfate) 30 Mg Tablet.er 30 Mg PO Q8H PRN Potassium Chloride 10 Meq Tab.er.prt 10 Meq PO DAILY Iprat-Albut 0.5-3(2.5) mg/3 ml (Ipratropium/Albuterol Sulfate) 3 Ml Ampul.neb 3 Ml IH Q6H PRN Lipitor (Atorvastatin Calcium) 40 Mg Tablet 40 Mg PO HS Instructions to patient/family Please see electronic discharge instructions given to patient. Clinical Quality Measures DVT/VTE Risk/Contraindication: Risk Factor Score Per Nursin RFS Level Per Nursing on Admit: 4+=Very High Problem Qualifiers (1) Sepsis: Sepsis type: sepsis due to unspecified organism Qualified Codes: A41.9 - Sepsis, unspecified organism (2) Right middle lobe pneumonia: Pneumonia type: due to unspecified organism Qualified Codes: J18.1 - Lobar pneumonia, unspecified organism (3) CAD (coronary artery disease): Coronary Disease-Associated Artery/Lesion type: [place] artery [place] vs. transplanted heart: redding heart Associated angina: without angina Qualified Codes: I25.10 - Atherosclerotic heart disease of redding coronary artery without angina pectoris (4) COPD (chronic obstructive pulmonary disease): COPD type: unspecified COPD Qualified Codes: J44.9 - Chronic obstructive pulmonary disease, unspecified (5) Hypothyroidism: Hypothyroidism type: unspecified Qualified Codes: E03.9 - Hypothyroidism, unspecified (6) Vomiting: Vomiting type: unspecified Vomiting Intractability: non-intractable Nausea presence: with nausea Qualified Codes: R11.2 - Nausea with vomiting, unspecified (7) Rheumatoid arthritis: Rheumatoid arthritis location: multiple sites Rheumatoid factor presence: unspecified presence Qualified Codes: M06.9 - Rheumatoid arthritis, unspecified NOLBERTO GONZALEZ MD Nov 15, 2018 08:20
--- NOTE | 2018-11-15 08:47 | Cardiology Progress Note ---
Subjective Date Seen by Provider: Nov 15, 2018 Time Seen by Provider: 08:46 Subjective/Events-last exam Patient is complaining of nausea and vomiting, no chest pain. Review of Systems General: No Chills, No Night Sweats, No Fatigue, No Malaise, No Appetite, No Other HEENT: No Head Aches, No Visual Changes, No Eye Pain, No Ear Pain, No Dysphasia , No Sinus Congestion, No Post Nasal Drip, No Sore Throat, No Other Pulmonary: Dyspnea; No Cough, No Pleuritic Chest Pain, No Other Cardiovascular: No: Chest Pain, Palpitations, Orthopnea, Paroxysmal Noc. Dyspnea, Edema, Lt Headedness, Other Focused Exam Lactate Level 11/13/18 16:00: Lactic Acid Level 1.78 Objective-Cardiology Exam Last Set of Vital Signs Vital Signs 11/15/18 08:00 Temp 99.1 Pulse 88 Resp 18 B/P (MAP) 125/71 (89) Pulse Ox 94 O2 Delivery Room Air Capillary Refill : Less Than 3 SecondsLess Than 3 Seconds I&O Intake and Output 11/15/18 00:00 Intake Total 2270 ml Output Total 1675 ml Balance 595 ml Intake Oral 940 ml IV Total 1330 ml Output Urine Total 1675 ml # Bowel Movements 2 General: Alert, Oriented X3, Cooperative HEENT: Atraumatic, PERRLA Neck: Supple, No JVD, No Thyromegaly Lungs: Clear to Auscultation, Normal Air Movement Heart: Regular Rate, Normal S1, Normal S2, No Murmurs Abdomen: Normal Bowel Sounds, Soft, No Tenderness, No Hepatosplenomegaly, No Masses Extremities: No Clubbing, No Cyanosis, No Edema, Normal Pulses, No Tenderness/ Swelling Skin: No Rashes, No Breakdown, No Significant Lesion Neuro: Normal Gait, Normal Speech, Strength at 5/5 X4 Ext, Normal Tone, Sensation Intact Psych/Mental Status: Mental Status NL, Mood NL Results Lab Laboratory Tests 11/15/18 06:23 A/P-Cardiology Admission Diagnosis Right lower lobe pneumonia Coronary artery disease Peripheral arterial disease Hypertension Assessment/Plan Right lower lobe pneumonia, receiving antibiotic, diagnosed with influenza B and started on Tamiflu, reporting improvement. Nausea and vomiting, worsening today, received Zofran. Managed by primary care team Mild troponin elevation, did not reach the positive level, trending down. History of coronary artery disease with mild disease per cardiac catheterization in October 2016. I recommend conservative management, if patient became symptomatic or started to have chest pain will consider cardiac catheterization in the future as an outpatient History of congestive heart failure with nonischemic cardiomyopathy, resolved, last echo showed ejection fraction 50 percent, I will evaluate 2-D echo History of anoxic encephalopathy and pneumonia and sepsis in early October 2016. History of extensive and severe COPD. History of C. difficile colitis with partial colectomy in the past, managed by primary care physician History of abdominal hernia repair surgery History of acute renal failure, continue to monitor renal function Peripheral vascular disease with history of nonhealing wounds bilaterally. Peripheral angiogram done 12/04/16 revealed moderate atherosclerotic disease on the left lower extremity, the anterior tibial artery is severely diseased on the left lower extremity but the ulcer on the left lower extremity has healed. Moderate disease of the right lower extremity with good flow, with three-vessel flow down to the f Medical therapy was recommended. The ulcer has healed. SEAMUS in November 2017 was abnormal and it was 0.9 on the right and 0.7 on the left, TBI 0.48 on the right and 0.34 in the left. Continue to monitor Mild bilateral carotid stenosis, ultrasound was done in November 2017. Continue to monitor Small infrarenal abdominal aortic aneurysm noted during peripheral angiogram. Continue to monitor Hypertension, continue to monitor blood pressure Hyperlipidemia, lipid profile was done in May 2018 showing total cholesterol 162, HDL 50, triglyceride 103, LDL 92. Continue on current medication monitor Hyperthyroidism, history of hypothyroidism and Levothroid, managed by primary care physician History of pulmonary hypertension, continue to monitor History of rheumatoid arthritis. COPD, managed and followed by primary care physician Tobaccoism, patient has stopped smoking in December 2016. Encouraged to continue with smoking cessation Clinical Quality Measures DVT/VTE Risk/Contraindication: Risk Factor Score Per Nursin RFS Level Per Nursing on Admit: 4+=Very High TORY HALL MD Nov 15, 2018 8:47 am
--- NOTE | 2018-11-15 11:10 | Pulmonary Progress Note ---
Subjective Time Seen by a Provider: 11:09 Subjective/Events-last exam No complications noted. Sepsis Event Evaluation Height, Weight, BMI Height: 5'9.00" Weight: 145lbs. 0.0oz. 65.915329pt; 21.7 BMI Method:Estimated Focused Exam Lactate Level 11/13/18 16:00: Lactic Acid Level 1.78 Exam Exam Vital Signs Date Time Temp Pulse Resp B/P (MAP) Pulse Ox O2 Delivery O2 Flow Rate FiO2 11/15/18 08:00 99.1 88 18 125/71 (89) 94 Room Air 11/15/18 07:00 81 11/15/18 06:50 93 Room Air 11/15/18 06:50 Room Air 11/15/18 04:00 98.9 92 16 114/66 (82) 96 Room Air 11/15/18 04:00 Room Air 11/15/18 01:00 80 11/15/18 00:00 Room Air 11/15/18 00:00 98.0 89 18 117/61 (79) 95 Room Air 11/14/18 21:00 Room Air 11/14/18 20:11 97.0 88 18 138/55 (82) 95 Room Air 11/14/18 20:00 Room Air 11/14/18 19:24 Room Air 11/14/18 19:19 92 Room Air 11/14/18 19:08 102 11/14/18 16:53 97.8 87 18 112/73 (86) 94 Room Air 11/14/18 16:00 95 Room Air 11/14/18 15:34 95 Room Air 11/14/18 13:07 85 11/14/18 12:30 98.2 96 16 105/60 (75) 94 Room Air 11/14/18 12:00 93 Room Air 11/14/18 11:44 93 Room Air I & O 11/15/18 07:00 Intake Total 1340 ml Output Total 1925 ml Balance -585 ml Height & Weight Height: 5'9.00" Weight: 145lbs. 0.0oz. 65.140478vt; 21.7 BMI Method:Estimated General Appearance: No Apparent Distress, WD/WN HEENT: PERRL/EOMI, TMs Normal, Normal ENT Inspection, Pharynx Normal Neck: Full Range of Motion, Normal Inspection, Non Tender, Supple, Carotid Bruit Respiratory: Chest Non Tender, Lungs Clear, Normal Breath Sounds, No Accessory Muscle Use, No Respiratory Distress Cardiovascular: Regular Rate, Rhythm, No Edema, No Gallop, No JVD, No Murmur, Normal Peripheral Pulses Capillary Refill: Less Than 3 Seconds Gastrointestinal: soft, no organomegaly, abnormal bowel sounds (hypoactive bowel sounds), tenderness (mild) Extremity: Normal Capillary Refill, Normal Inspection, Normal Range of Motion, Non Tender, No Calf Tenderness, No Pedal Edema Neurologic/Psychiatric: Alert, Oriented x3, No Motor/Sensory Deficits, Normal Mood/Affect Skin: Normal Color, Warm/Dry Lymphatic: No Adenopathy Results Lab Laboratory Tests 11/13/18 14:50 11/14/18 03:25 11/15/18 06:23 Assessment/Plan Assessment/Plan Pneumonia -Currently on Vanco, Zyosyn -Change ABX to Rocephin -influenza swab positive for B -Mercado cultures pending -MRSA swab pending NSTEMI -Cardiology is consulted COPD- stable (pt does not have home 02 -Will need home 02 eval prior to discharge. -SVNS, advair -Currently on RA Hypomag -replace GERD -Will give GI cocktail and start Protonix Chronic right arm pain -Pain control CHAYITO DE LA ROSA DO Nov 15, 2018 11:09
[2018-11-15 12:00] VITALS: BP 146/68
[2018-11-15 15:33] VITALS: BP 162/88
--- NOTE | 2018-11-15 15:47 | NUR ---
Medications given per Martha Navarro. Scanned and entered by me due to computer issue. Patient resting in bed no issues.
[2018-11-15] MEDS: morphine ER 30 MG (MS CONTIN) TAB PO PRN (17:21)
--- NOTE | 2018-11-15 18:22 | Progress Note-Hospitalist ---
Subjective HPI/CC On Admission Date Seen by Provider: Nov 15, 2018 Time Seen by Provider: 09:30 Pt is a 73yoCM with a PMH of RA, CAD, HTN, bowel necrosis s/p resection who presented to the ER for evaluation of 3 days of nausea, vomiting, diarrhea, and weakness. He states he was vomit multiple times and felt feverish at home but did not check his temperature. He denies any cough or chest pain to me. He still feels very weak but has been able to keep food down overnight. He found to have a right sided pneumonia with leukocytosis tachycardia on presentation. His blood pressures were on the lower side of normal as well. Labs revealed a slightly elevated troponin as well. He was admitted to [facility] for further management of sepsis and ACS rule out with serial troponins. He states he is feel much better today and has no complaints. Subjective/Events-last exam Pt reports feeling better. Up at bedside. Requesting diet change. Focused Exam Lactate Level 11/13/18 16:00: Lactic Acid Level 1.78 Objective Exam Vital Signs Vital Signs Date Time Temp Pulse Resp B/P (MAP) Pulse Ox O2 Delivery O2 Flow Rate FiO2 11/15/18 15:33 97.2 83 20 162/88 (112) 98 Room Air 11/14/18 04:00 Capillary Refill : Less Than 3 SecondsLess Than 3 Seconds General Appearance: No Apparent Distress, WD/WN, Chronically ill Respiratory: Lungs Clear, No Accessory Muscle Use, No Respiratory Distress Cardiovascular: Regular Rate, Rhythm, No Edema, No Murmur, Normal Peripheral Pulses Gastrointestinal: Normal Bowel Sounds, Non Tender, Soft Extremity: Normal Inspection, No Calf Tenderness, No Pedal Edema Neurologic/Psychiatric: Alert, Oriented x3, No Motor/Sensory Deficits, Normal Mood/Affect Skin: Normal Color, Warm/Dry Results/Procedures Lab Laboratory Tests 11/15/18 06:23 Patient resulted labs reviewed. Imaging: Reviewed Imaging Report Assessment/Plan Assessment and Plan Assess & Plan/Chief Complaint Influenza Diagnosis/Problems Diagnosis/Problems (1) Sepsis Status: Acute Assessment & Plan: Sepsis on arrival with leukocytosis with tachycardia, now resolved RLL pneumonia on CXR Continue Rocephin Qualifiers: Sepsis type: sepsis due to unspecified organism Qualified Codes: A41.9 - Sepsis, unspecified organism (2) Right middle lobe pneumonia Status: Acute Assessment & Plan: Continue on Rocephin Cultures NGTD Pulm consulted, appreciate recs Qualifiers: Pneumonia type: due to unspecified organism Qualified Codes: J18.1 - Lobar pneumonia, unspecified organism (3) Influenza B Assessment & Plan: Tamiflu started Droplet precautions (4) Elevated troponin Status: Resolved Assessment & Plan: H/o of CAD and PAD Trended down Cardiology consulted, appreciate recs Will need outpatient follow up Resolution Date/Time: 11/15/18 @ 18:20 (5) Essential (primary) hypertension Status: Chronic Assessment & Plan: Resume coreg (6) CAD (coronary artery disease) Status: Chronic Assessment & Plan: Elevated troponin as above Cardiology consulted, appreciate recs Qualifiers: Coronary Disease-Associated Artery/Lesion type: [place] artery [place] vs. transplanted heart: [place] heart Associated angina: without angina Qualified Codes: I25.10 - Atherosclerotic heart disease of [place] coronary artery without angina pectoris (7) COPD (chronic obstructive pulmonary disease) Status: Acute Assessment & Plan: Continue Advair MAT protocol No evidence of exacerbation Qualifiers: COPD type: unspecified COPD Qualified Codes: J44.9 - Chronic obstructive pulmonary disease, unspecified (8) Vomiting Status: Acute Assessment & Plan: If tolerates advancement in diet can DC home Qualifiers: Vomiting type: unspecified Vomiting Intractability: non-intractable Nausea presence: with nausea Qualified Codes: R11.2 - Nausea with vomiting, unspecified (9) Hypothyroidism Status: Chronic Assessment & Plan: Resume home supplement Qualifiers: Hypothyroidism type: unspecified Qualified Codes: E03.9 - Hypothyroidism, unspecified (10) Rheumatoid arthritis Status: Chronic Assessment & Plan: Hold methotrexate while admitted for sepsis Continue home pain meds Qualifiers: Rheumatoid arthritis location: multiple sites Rheumatoid factor presence: unspecified presence Qualified Codes: M06.9 - Rheumatoid arthritis, unspecified (11) Normocytic anemia Status: Chronic Assessment & Plan: Appears to be near baseline Consider outpatient IV iron once over infection Clinical Quality Measures DVT/VTE Risk/Contraindication: Risk Factor Score Per Nursin RFS Level Per Nursing on Admit: 4+=Very High NOLBERTO GONZALEZ MD Nov 15, 2018 18:22
[2018-11-15] MEDS ORDERED: SCOPOLAMINE 1.5 MG (TRANSDERM-SCOP) PATCH TD NR (18:50)
[2018-11-15 19:14] VITALS: BP 175/85
[2018-11-15] MEDS: CARVEDILOL 12.5 MG (COREG) TABLET PO SCH (20:04)
[2018-11-16] VITALS: BP 125/60
[2018-11-16] MEDS ORDERED: cefTRIAXone 1,000 MG IV (ROCEPHIN) VIAL ONE (05:06)
[2018-11-16] MEDS ORDERED: WATER (STERILE) FOR INJECTION 10 ML ONE (05:06)
[2018-11-16] MEDS: oxyCODONE/APAP 10/325MG (PERCOCET 10) TABLET PO PRN ×3 (05:13→13:15)
[2018-11-16] MEDS: cefTRIAXone FOR IV USE 1,000 MG in WATER (STERILE) FOR INJECTION 10 ML IV SCH (05:14)
[2018-11-16 07:41] VITALS: BP 125/60
[2018-11-16] MEDS: RT-ALBUTEROL/IPRATROPIUM 3 ML (DUONEB) VIAL INH SCH ×2 (07:41→10:25)
[2018-11-16] MEDS: ADVAIR HFA 115/21 MCG INHALER 8 GM IH SCH (07:41)
[2018-11-16 07:54] VITALS: BP 145/77
[2018-11-16] MEDS: OSELTAMIVIR 75 MG (TAMIFLU) CAPSULE PO SCH (09:05)
[2018-11-16] MEDS: morphine ER 30 MG (MS CONTIN) TAB PO PRN (09:05)
[2018-11-16] MEDS: CARVEDILOL 12.5 MG (COREG) TABLET PO SCH (09:06)
[2018-11-16] MEDS: PANTOPRAZOLE 40 MG (PROTONIX) VIAL IV SCH (09:12)
[2018-11-16] MEDS: ONDANSETRON 4 MG/2 ML (SDV) Z0FRAN IV PRN (09:12)
--- NOTE | 2018-11-16 09:18 | Discharge Summary-Hospitalist ---
Diagnosis/Chief Complaint Date of Admission Nov 13, 2018 at 18:28 Date of Discharge Discharge Date: Nov 15, 2018 Admission Diagnosis Sepsis, Pneumonia Discharge Diagnosis (1) Sepsis Status: Acute Assessment & Plan: Sepsis on arrival with leukocytosis with tachycardia, now resolved RLL pneumonia on CXR Continue Rocephin (2) Right middle lobe pneumonia Status: Acute Assessment & Plan: Continue on Rocephin Cultures NGTD Pulm consulted, appreciate recs (3) Influenza B Assessment & Plan: Tamiflu started Droplet precautions (4) Elevated troponin Status: Resolved Assessment & Plan: H/o of CAD and PAD Trended down Cardiology consulted, appreciate recs Will need outpatient follow up (5) Essential (primary) hypertension Status: Chronic Assessment & Plan: Resume coreg (6) CAD (coronary artery disease) Status: Chronic Assessment & Plan: Elevated troponin as above Cardiology consulted, appreciate recs (7) COPD (chronic obstructive pulmonary disease) Status: Acute Assessment & Plan: Continue Advair MAT protocol No evidence of exacerbation (8) Vomiting Status: Acute Assessment & Plan: If tolerates advancement in diet can DC home (9) Hypothyroidism Status: Chronic Assessment & Plan: Resume home supplement (10) Rheumatoid arthritis Status: Chronic Assessment & Plan: Hold methotrexate while admitted for sepsis Continue home pain meds (11) Normocytic anemia Status: Chronic Assessment & Plan: Appears to be near baseline Consider outpatient IV iron once over infection Discharge Summary Procedures/Consulations Dr Perales- Pulm Dr Davis- Cardiology Discharge Physical Exam Allergies: Coded Allergies: Sulfa (Sulfonamide Antibiotics) (Verified Allergy, Mild, GI UPSET, ) Vitals & I&Os Vital Signs Date Time Temp Pulse Resp B/P (MAP) Pulse Ox O2 Delivery O2 Flow Rate FiO2 11/16/18 10:25 93 Room Air 11/16/18 07:54 97.1 78 18 145/77 (99) 11/16/18 07:41 21 11/14/18 04:00 General Appearance: No Apparent Distress, WD/WN, Chronically ill Respiratory: Lungs Clear, No Accessory Muscle Use, No Respiratory Distress Cardiovascular: Regular Rate, Rhythm, No Edema, No Murmur, Normal Peripheral Pulses Gastrointestinal: Normal Bowel Sounds, Non Tender, Soft Extremity: Normal Inspection, No Calf Tenderness, No Pedal Edema Skin: Normal Color, Warm/Dry Neurologic/Psychiatric: Alert, Oriented x3, No Motor/Sensory Deficits, Normal Mood/Affect Hospital Course Pt was admitted due to sepsis from pneumonia and intractable nausea and vomiting. He responded well to antibiotics and his sepsis resolved. He was discharged home on oral antibiotics to complete treatment of his pneumonia. He was also found to be Flu A positive and treated with tamiflu. He had a mild troponin elevation and cardiology was consulted. It trended down and Dr Davis recommended outpatient follow up. Due to the nausea and vomiting and his extensive abdominal surgery history CT abdomen was obtained which revealed no obstruction. He was able to tolerate a clear liquid diet on the second day of admission and advanced prior to DC home. He is to follow up with his PCP in 1 week. Labs (last 24 hrs) Microbiology 11/13/18 Blood Culture - Preliminary, Resulted No growth 11/14/18 Influenza Types A,B Antigen (DIONISIO) - Final, Complete Patient resulted labs reviewed. Imaging: Reviewed Imaging Report Discussion & Recommendations Discharge Planning: >30 minutes discharge planning Discharge Home Medications: Active Scripts Active Keflex (Cephalexin) 500 Mg Capsule 500 Mg PO BID 2 Days Tamiflu (Oseltamivir Phosphate) 75 Mg Cap 75 Mg PO BID Reported Methotrexate Tablet (Methotrexate) 2.5 Mg Tablet 12.5 Mg PO FR Temazepam 15 Mg Capsule 15 Mg PO HS Citalopram HBr (Citalopram Hydrobromide) 10 Mg Tablet 10 Mg PO DAILY Symbicort 160-4.5 Mcg Inhaler (Budesonide/Formoterol Fumarate) 10.2 Gm Hfa.aer.ad 2 Puff IH BID Ondansetron HCl 8 Mg Tablet 8 Mg PO Q8H PRN Oxycodone-Acetaminophen 10-325 (Oxycodone HCl/Acetaminophen) 1 Each Tablet 1 Tab PO Q4H PRN Carvedilol 12.5 Mg Tablet 12.5 Mg PO BID Levothyroxine Sodium 200 Mcg Tablet 200 Mcg PO DAILY Aspirin 81 Mg Tab.chew 81 Mg PO DAILY Pantoprazole Sodium 40 Mg Tablet.dr 40 Mg PO DAILY Morphine Sulfate ER (Morphine Sulfate) 30 Mg Tablet.er 30 Mg PO Q8H PRN Iprat-Albut 0.5-3(2.5) mg/3 ml (Ipratropium/Albuterol Sulfate) 3 Ml Ampul.neb 3 Ml IH Q6H PRN Lipitor (Atorvastatin Calcium) 40 Mg Tablet 40 Mg PO HS Instructions to patient/family Please see electronic discharge instructions given to patient. Clinical Quality Measures DVT/VTE Risk/Contraindication: Risk Factor Score Per Nursin RFS Level Per Nursing on Admit: 4+=Very High Problem Qualifiers (1) Sepsis: Sepsis type: sepsis due to unspecified organism Qualified Codes: A41.9 - Sepsis, unspecified organism (2) Right middle lobe pneumonia: Pneumonia type: due to unspecified organism Qualified Codes: J18.1 - Lobar pneumonia, unspecified organism (3) CAD (coronary artery disease): Coronary Disease-Associated Artery/Lesion type: [place] artery [place] vs. transplanted heart: [place] heart Associated angina: without angina Qualified Codes: I25.10 - Atherosclerotic heart disease of [place] coronary artery without angina pectoris (4) COPD (chronic obstructive pulmonary disease): COPD type: unspecified COPD Qualified Codes: J44.9 - Chronic obstructive pulmonary disease, unspecified (5) Vomiting: Vomiting type: unspecified Vomiting Intractability: non-intractable Nausea presence: with nausea Qualified Codes: R11.2 - Nausea with vomiting, unspecified (6) Hypothyroidism: Hypothyroidism type: unspecified Qualified Codes: E03.9 - Hypothyroidism, unspecified (7) Rheumatoid arthritis: Rheumatoid arthritis location: multiple sites Rheumatoid factor presence: unspecified presence Qualified Codes: M06.9 - Rheumatoid arthritis, unspecified NOLBERTO GONZALEZ MD Nov 16, 2018 09:18
[2018-11-16] MEDS ORDERED: CEPH-507 PO (09:19)
--- NOTE | 2018-11-16 10:32 | Physical Therapy Progress Note ---
Therapy Progress Note Patient was to dismiss to home on 11/15/18, however, due to vomiting did not. PT did not see patient on that date due to discharge per physician. PT returned on 11/16/18 and Patient declined PT intervention this a.m. and reports he has a friend who is going to come get home this afternoon to return to home. Patient agrees to have PT return later today for treatment. Patient reports he is up in his room independently to toilet. 1 ref LIZET SARMIENTO PT Nov 16, 2018 10:32
--- NOTE | 2018-11-16 11:52 | Pulmonary Progress Note ---
Subjective Time Seen by a Provider: 11:51 Subjective/Events-last exam No complications noted. Sepsis Event Evaluation Height, Weight, BMI Height: 5'9.00" Weight: 142lbs. 8.0oz. [id number]; 21.7 BMI Method:Estimated Focused Exam Lactate Level 11/13/18 16:00: Lactic Acid Level 1.78 Exam Exam Vital Signs Date Time Temp Pulse Resp B/P (MAP) Pulse Ox O2 Delivery O2 Flow Rate FiO2 11/16/18 10:25 93 Room Air 11/16/18 09:00 Room Air 11/16/18 07:54 97.1 78 18 145/77 (99) 95 Room Air 11/16/18 07:46 Room Air 11/16/18 07:41 60 92 21 11/16/18 07:41 92 Room Air 11/16/18 00:00 97.4 83 20 125/60 (81) 96 Room Air 11/15/18 21:00 Room Air 11/15/18 19:40 Room Air 11/15/18 19:33 96 Room Air 11/15/18 19:14 97.3 77 20 175/85 (115) 98 Room Air 11/15/18 15:33 97.2 83 20 162/88 (112) 98 Room Air 11/15/18 14:24 93 Room Air 11/15/18 12:00 Room Air 11/15/18 12:00 98.6 67 18 146/68 (94) 97 Room Air I & O 11/16/18 07:00 Intake Total 780 ml Output Total 725 ml Balance 55 ml Height & Weight Height: 5'9.00" Weight: 142lbs. 8.0oz. 64.070151nx; 21.7 BMI Method:Estimated General Appearance: No Apparent Distress, WD/WN, Chronically ill Respiratory: Lungs Clear, No Accessory Muscle Use, No Respiratory Distress Cardiovascular: Regular Rate, Rhythm, No Edema, No Murmur, Normal Peripheral Pulses Capillary Refill: Less Than 3 Seconds Gastrointestinal: soft, no organomegaly, abnormal bowel sounds (hypoactive bowel sounds), tenderness (mild) Extremity: Normal Inspection, No Calf Tenderness, No Pedal Edema Neurologic/Psychiatric: Alert, Oriented x3, No Motor/Sensory Deficits, Normal Mood/Affect Skin: Normal Color, Warm/Dry Results Lab Laboratory Tests 11/15/18 06:23 Assessment/Plan Assessment/Plan Pneumonia -Currently on Vanco, Zyosyn -Change ABX to Rocephin -influenza swab positive for B NSTEMI -Cardiology is consulted COPD- stable (pt does not have home 02 -Will need home 02 eval prior to discharge. -SVCARLOS advair -Currently on RA Hypomag -replace GERD -Will give GI cocktail and start Protonix Chronic right arm pain -Pain control CHAYITO DE LA ROSA DO Nov 16, 2018 11:52
--- NOTE | 2018-11-16 11:55 | NUR ---
Important Message from Medicare presented, reviewed, signed and charted. Patient voiced no intention to appeal and deny any needs or further questions at this time. Patient states he has supportive and ready to go home.
--- NOTE | 2018-11-16 11:56 | Occ Therapy Progress Note ---
Therapy Progress Note Attempted therapy at 1130. Pt resting in bed. Pt states he should be leaving later today and would like to rest. Declined therapy at this time. Pt states he has no questions or concerns. Pt in bed with needs met 1, visit MELISSA AMBROSIO OT Nov 16, 2018 11:56
--- NOTE | 2018-11-16 13:28 | Cardiology Progress Note ---
Subjective Date Seen by Provider: Nov 16, 2018 Time Seen by Provider: 08:10 Subjective/Events-last exam Patient is in bed, feeling better, didn't sleep well last night Review of Systems General: No Chills, No Night Sweats; Fatigue; No Malaise, No Appetite, No Other HEENT: No Head Aches, No Visual Changes, No Eye Pain, No Ear Pain, No Dysphasia , No Sinus Congestion, No Post Nasal Drip, No Sore Throat, No Other Pulmonary: Dyspnea, Cough; No Pleuritic Chest Pain, No Other Cardiovascular: No: Chest Pain, Palpitations, Orthopnea, Paroxysmal Noc. Dyspnea, Edema, Lt Headedness, Other Focused Exam Lactate Level 11/13/18 16:00: Lactic Acid Level 1.78 Objective-Cardiology Exam Last Set of Vital Signs Vital Signs 11/16/18 11/16/18 07:54 10:25 Temp 97.1 Pulse 78 Resp 18 B/P (MAP) 145/77 (99) Pulse Ox 93 O2 Delivery Room Air Capillary Refill : Less Than 3 SecondsLess Than 3 Seconds I&O Intake and Output 11/16/18 00:00 Intake Total 880 ml Output Total 800 ml Balance 80 ml Intake Oral 880 ml Output Urine Total 800 ml # Bowel Movements 1 General: Alert, Oriented X3, Cooperative HEENT: Atraumatic, PERRLA Neck: Supple, No JVD, No Thyromegaly Lungs: Clear to Auscultation, Normal Air Movement Heart: Regular Rate, Normal S1, Normal S2, No Murmurs Abdomen: Normal Bowel Sounds, Soft, No Tenderness, No Hepatosplenomegaly, No Masses Extremities: No Clubbing, No Cyanosis, No Edema, Normal Pulses, No Tenderness/ Swelling Skin: No Rashes, No Breakdown, No Significant Lesion Neuro: Normal Gait, Normal Speech, Strength at 5/5 X4 Ext, Normal Tone, Sensation Intact Psych/Mental Status: Mental Status NL, Mood NL A/P-Cardiology Admission Diagnosis Right lower lobe pneumonia Coronary artery disease Peripheral arterial disease Hypertension Assessment/Plan Right lower lobe pneumonia, receiving antibiotic, diagnosed with influenza B and started on Tamiflu, Vanco and Zosyn, reporting improvement. Nausea and vomiting, feeling better today, managed by primary care team Mild troponin elevation, did not reach the positive level, trending down. History of coronary artery disease with mild disease per cardiac catheterization in October 2016. I recommend conservative management, if patient became symptomatic or started to have chest pain will consider cardiac catheterization in the future as an outpatient History of congestive heart failure with nonischemic cardiomyopathy, resolved, last echo showed ejection fraction 50 percent, I will evaluate 2-D echo History of anoxic encephalopathy and pneumonia and sepsis in early October 2016. History of extensive and severe COPD. History of C. difficile colitis with partial colectomy in the past, managed by primary care physician History of abdominal hernia repair surgery History of acute renal failure, continue to monitor renal function Peripheral vascular disease with history of nonhealing wounds bilaterally. Peripheral angiogram done 12/04/16 revealed moderate atherosclerotic disease on the left lower extremity, the anterior tibial artery is severely diseased on the left lower extremity but the ulcer on the left lower extremity has healed. Moderate disease of the right lower extremity with good flow, with three-vessel flow down to the f Medical therapy was recommended. The ulcer has healed. SEAMUS in November 2017 was abnormal and it was 0.9 on the right and 0.7 on the left, TBI 0.48 on the right and 0.34 in the left. Continue to monitor Mild bilateral carotid stenosis, ultrasound was done in November 2017. Continue to monitor Small infrarenal abdominal aortic aneurysm noted during peripheral angiogram. Continue to monitor Hypertension, continue to monitor blood pressure Hyperlipidemia, lipid profile was done in May 2018 showing total cholesterol 162, HDL 50, triglyceride 103, LDL 92. Continue on current medication monitor Hyperthyroidism, history of hypothyroidism and Levothroid, managed by primary care physician History of pulmonary hypertension, continue to monitor History of rheumatoid arthritis. COPD, managed and followed by primary care physician Tobaccoism, patient has stopped smoking in December 2016. Encouraged to continue with smoking cessation Clinical Quality Measures DVT/VTE Risk/Contraindication: Risk Factor Score Per Nursin RFS Level Per Nursing on Admit: 4+=Very High TORY HALL MD Nov 16, 2018 13:28
--- NOTE | 2018-11-16 13:45 | NUR ---
ALIX BOWEN demonstrates understanding of discharge instructions and accurately returns instructions upon questioning. Copy of Post-Discharge Instructions given to PT. ALIX BOWEN is able to manage continuing needs after discharge. Patients belongings returned to PT. Patient discharged from [facility] on 11/16/18 at 1345 . ALIX BOWEN left floor via W/C, accompanied by STAFF AND FRIEND PER AUTO.
--- NOTE | 2018-11-19 08:31 | Occ Therapy Progress Note ---
Therapy Progress Note 11-15-18- Pt. not seen on this date due to planned discharge. Discharge was confirmed, but pt. did not discharge this date due to change in medical status. Note written 11-19-18 0831 JENNI OSBORN OT Nov 19, 2018 08:31
== END 2018-11-16 13:45 | disposition home or self-care (01) | DRG 871 ==
LOC: EDUNIT# 14:47 → ER 14:48 → ICU 18:28 → 4TH 11-14 09:45
PROVIDERS: ADMIT Family Medicine; ATTEND Family Medicine
DX: A41.9 Sepsis, unspecified organism (principal); J18.1 Lobar pneumonia, unspecified organism; J10.00 Influenza due to other identified influenza virus with unspecified type of pneumonia; R11.2 Nausea with vomiting, unspecified; E86.0 Dehydration; E78.5 Hyperlipidemia, unspecified; Z87.891 Personal history of nicotine dependence; Z90.49 Acquired absence of other specified parts of digestive tract; M06.9 Rheumatoid arthritis, unspecified; I65.23 Occlusion and stenosis of bilateral carotid arteries; M81.0 Age-related osteoporosis without current pathological fracture; I11.0 Hypertensive heart disease with heart failure; I50.9 Heart failure, unspecified; I25.10 Atherosclerotic heart disease of native coronary artery without angina pectoris; E78.00 Pure hypercholesterolemia, unspecified; I27.20 Pulmonary hypertension, unspecified; J43.9 Emphysema, unspecified; K21.9 Gastro-esophageal reflux disease without esophagitis; E03.9 Hypothyroidism, unspecified; I73.9 Peripheral vascular disease, unspecified; D64.9 Anemia, unspecified; I71.4 Abdominal aortic aneurysm, without rupture; M70.21 Olecranon bursitis, right elbow; M70.22 Olecranon bursitis, left elbow; M79.601 Pain in right arm; E83.42 Hypomagnesemia; K40.90 Unilateral inguinal hernia, without obstruction or gangrene, not specified as recurrent; Z93.3 Colostomy status; Z88.2 Allergy status to sulfonamides; Z96.652 Presence of left artificial knee joint
CPT/HCPCS: 36415; 71045; 74177; 80048; 80053; 81000; 83605; 83735; 83880; 84100; 84484; 85025; 86141; 87040; 87804; 93005; 94640; 94760; 96361; 96365; 96375

== ENCOUNTER → 2019-09-16 | Outpatient (CLI) | payer MEDICARE ==
[~2019-09-16] MED LIST changes: +CEPH-507 PO; +OSLT75C PO; -RIVA15TA PO; +RIVA15TA2 PO; -TIZA4TAB3 PO; +TIZA4TAB4 PO
== END | disposition home or self-care (01) ==
LOC: PREOP 05:50
PROVIDERS: ATTEND Surgery
DX: Z01.818 Encounter for other preprocedural examination (principal)

== ENCOUNTER → 2020-01-07 | Outpatient (CLI) | payer MEDICARE ==
[~2020-01-07] MED LIST changes: +ACHYD1T PO; -HYDR-3820 PO; -MORP-34 PO; +MORP-69 PO; -ONDA8TAB12 PO; +ONDA8TAB15 PO; -SACU1TAB PO; +SACU1TAB2 PO
--- NOTE | 2020-01-07 15:12 | Diagnostic Imaging Report ---
INDICATION: Chronic cough. TECHNIQUE/COMPARISON: PA and lateral views of the chest were obtained at 2:56 PM and compared to 11/13/2018. FINDINGS: Cardiomegaly is again noted. There are COPD changes with hyperinflation. There are mild chronic appearing increased interstitial markings. There is no acute consolidation, pneumothorax, or pleural fluid. There are numerous old left-sided rib fractures. IMPRESSION: Cardiomegaly. Marked COPD changes with no focal infiltrate, pneumothorax, or pleural fluid. Numerous old left-sided rib fractures are noted. Dictated by: Dictated on workstation # [id number]
--- NOTE | 2020-01-07 15:25 | Diagnostic Imaging Report ---
INDICATION: Cough, pain. COMPARISON: Radiographs from the same date as well as from 02/26/2015. TECHNIQUE: Three radiographs of the thoracic spine dated 01/07/2020. FINDINGS: Grade 1 anterolisthesis of C4 on C5 is suggested. Very minimal reverse S-shaped curvature of the visualized thoracolumbar spine. No additional anterolisthesis or retrolisthesis within the thoracic spine itself. The vertebral body heights appear stable from prior imaging without vertebral body compression deformity. Multiple chronic posterior left-sided rib fractures. No acute fracture or dislocation. Multilevel small anterior osteophytes. IMPRESSION: No acute fracture. Grade 1 anterolisthesis of C4 on C5 is suggested. Chronic left-sided rib fractures. Dictated by: Dictated on workstation # [id number]
== END ==
LOC: RAD 14:37
PROVIDERS: ATTEND Nurse Practitioner Family
DX: M54.6 Pain in thoracic spine (principal); J44.9 Chronic obstructive pulmonary disease, unspecified; I51.7 Cardiomegaly; S22.42XD Multiple fractures of ribs, left side, subsequent encounter for fracture with routine healing
CPT/HCPCS: 71046; 72070

== ENCOUNTER 2020-09-28 12:41 | Emergency (ER) | payer MEDICARE ==
[~2020-09-28] VITALS: Ht 175 cm; Wt 62.0 kg
[~2020-09-28 12:41] MED LIST changes: -CALC-6 PO; +CALC1TAB84 PO; +ENLP2.5T PO; -OXYC-465 PO; +OXYC-556 PO; -PANT40TA3 PO; +PANT40TA52 PO
[2020-09-28 13:39] LABS: BASOPHILS # (AUTO) 0.1 10^3/uL (0.0-0.1); BASOPHILS % (AUTO) 1 % (0-10); EOSINOPHILS # (AUTO) 0.1 10^3/uL (0.0-0.3); EOSINOPHILS % (AUTO) 2 % (0-10); HEMATOCRIT 35 % (40-54); LYMPHOCYTES # (AUTO) 1.6 10^3/uL (1.0-4.0); LYMPHOCYTES % (AUTO) 22 % (12-44); MEAN CORPUSCULAR HEMOGLOBIN 27 pg (25-34); MEAN CORPUSCULAR HGB CONC 32 g/dL (32-36); MEAN CORPUSCULAR VOLUME 87 fL (80-99); MEAN PLATELET VOLUME 9.5 fL (9.0-12.2); MONOCYTES # (AUTO) 0.6 10^3/uL (0.0-1.0); MONOCYTES % (AUTO) 8 % (0-12); NEUTROPHILS # (AUTO) 5.1 10^3/uL (1.8-7.8); NEUTROPHILS % (AUTO) 68 % (42-75); PLATELET COUNT 339 10^3/uL (130-400); WHITE BLOOD COUNT 7.5 10^3/uL (4.3-11.0)
--- NOTE | 2020-09-28 13:44 | ED General ---
General Chief Complaint: Respiratory Problems Stated Complaint: DEHYDRATION,N/V Nursing Triage Note: PT AMB TO ROOM 8 PT CO OF COUGHING UP ALOT OF SPUTUM, STATES COUGHING TILL VOMITS, PT STATES HAS BEEN GOING ON AND UNABLE TO EAT. DENIES NAUSEA Nursing Sepsis Screen: No Definite Risk Source of Information: Patient Exam Limitations: No Limitations History of Present Illness Date Seen by Provider: Sep 28, 2020 Time Seen by Provider: 13:35 Initial Comments Patient is a 75-year-old male who presents to the emergency department today with a chief complaint of coughing up lots of sputum to the point of emesis. Patient states that he has had the symptoms for about a week. He states on Monday, 2 days ago he had significant vomiting. He states since Monday he has been afraid to eat any food because he thought he might vomit. Patient states that he is urinated several times today. He has been trying to drink Gatorade, water and Pedialyte to stay hydrated. Patient still thinks that he is dehydrated. He is not currently nauseated. He states he feels like the sputum has cleared up and he is not as congested as he was. He denies fevers, chills, abdominal pain. He denies problems with urination including dysuria, urgency or frequency. His last bowel movement was yesterday and he states it was "normal". He denies any black or bloody stools. He also denies any hematemesis. All other review of systems reviewed and negative except as stated above. Timing/Duration: 2-3 Days Severity: Moderate Modifying Factors: worse with Eating Associated Systoms: Cough (Congestion) Allergies and Home Medications Allergies Coded Allergies: Sulfa (Sulfonamide Antibiotics) (Verified Allergy, Mild, GI UPSET, 08/11/17) Home Medications Aspirin 81 Mg Tab.chew, 81 MG PO DAILY, (Reported) Atorvastatin Calcium 40 Mg Tablet, 40 MG PO HS, (Reported) Budesonide/Formoterol Fumarate 10.2 Gm Hfa.aer.ad, 2 PUFF IH BID, (Reported) Carvedilol 12.5 Mg Tablet, 12.5 MG PO BID, (Reported) Cephalexin 500 Mg Capsule, 500 MG PO BID Prescribed by: NOLBERTO GONZALEZ on 11/16/18 0919 Citalopram Hydrobromide 10 Mg Tablet, 10 MG PO DAILY, (Reported) Ipratropium/Albuterol Sulfate 3 Ml Ampul.neb, 3 ML IH Q6H PRN for SHORTNESS OF BREATH, (Reported) Levothyroxine Sodium 200 Mcg Tablet, 200 MCG PO DAILY, (Reported) Methotrexate Tablet 2.5 Mg Tablet, 12.5 MG PO Fr, (Reported) Morphine Sulfate 30 Mg Tablet.er, 30 MG PO Q8H PRN for SEVERE PAIN, (Reported) Ondansetron HCl 8 Mg Tablet, 8 MG PO Q8H PRN for NAUSEA/VOMITING-1ST LINE, (Reported) Oseltamivir Phosphate 75 Mg Cap, 75 MG PO BID Prescribed by: NOLBERTO GONZALEZ on 11/15/18 0817 Oxycodone HCl/Acetaminophen 1 Each Tablet, 1 TAB PO Q4H PRN for PAIN-MODERATE, (Reported) Pantoprazole Sodium 40 Mg Tablet.dr, 40 MG PO DAILY, (Reported) Temazepam 15 Mg Capsule, 15 MG PO HS, (Reported) Patient Home Medication List Home Medication List Reviewed: Yes Review of Systems Review of Systems Constitutional: see HPI EENTM: nose congestion Respiratory: cough Cardiovascular: no symptoms reported Gastrointestinal: vomiting Genitourinary: no symptoms reported Musculoskeletal: no symptoms reported Skin: no symptoms reported All Other Systems Reviewed Negative Unless Noted: Yes Past Cazkytk-Rztdhe-Htecwb Hx Patient Social History Alcohol Use: Denies Use Smoking Status: Current Everyday Smoker Type Used: Cigarettes Former Smoker, Quit: Dec 17, 2016 Recent Infectious Disease Expo: No Recent Hopitalizations: No Immunizations Up To Date Tetanus Booster (TDap): Unknown Date of Pneumonia Vaccine: Aug 08, 2015 Seasonal Allergies Seasonal Allergies: Yes Past Medical History Surgeries: Yes (L KNEE REPLACEMENT, L WRIST, ANGIOPLASTY, colon resection with colostomy) Abdominal, Cardiac, Orthopedic Respiratory: Yes Chronic Bronchitis, COPD, Emphysema Currently Using CPAP: No Currently Using BIPAP: No Cardiac: Yes ( PULMONARY HTN) Chronic Edema/Swelling, Coronary Artery Disease, High Cholesterol, Hypertension, Peripheral Vascular Neurological: No Reproductive Disorders: No Sexually Transmitted Disease: Yes HIV/AIDS: No Genitourinary: No Renal Failure Gastrointestinal: Yes (colostomy) Colitis, Gastroesophageal Reflux, Hemorrhoids Musculoskeletal: Yes (BILATERAL OLECRANON BURSITIS) Osteoporosis, Arthritis, Rheumatoid Arthritis Endocrine: Yes Hypothyroidsim HEENT: Yes (GLASSES, DENTURES) Loss of Vision: Bilateral Hearing Impairment: Denies Cancer: No Psychosocial: Yes Anxiety Integumentary: Yes (HX LEG WOUNDS) Eczema, Psoriasis Blood Disorders: Yes (HX ANEMIA) Adverse Reaction/Blood Tranf: No (HAS HAD BLOOD WITH NO REACTION) Family Medical History Patient reports no known family medical history. No Pertinent Family Hx, Diabetes Physical Exam Vital Signs Vital Signs - First Documented 09/28/20 12:50 Temp 36.1 Pulse 96 Resp 18 B/P (MAP) 142/90 (107) Pulse Ox 95 Capillary Refill : Less Than 3 Seconds Height, Weight, BMI Height: 5'9.00" Weight: 142lbs. 8.0oz. 64.685030du; 20.00 BMI Method:Estimated General Appearance: No Apparent Distress, WD/WN Eyes: Bilateral Eye Normal Inspection, Bilateral Eye PERRL, Bilateral Eye EOMI HEENT: Pharynx Normal Respiratory: Lungs Clear, Normal Breath Sounds, No Accessory Muscle Use, No Respiratory Distress Cardiovascular: Regular Rate, Rhythm, Systolic Murmur Gastrointestinal: Non Tender, Soft Extremity: Normal Inspection, Non Tender, No Calf Tenderness Neurologic/Psychiatric: Alert, Oriented x3, No Motor/Sensory Deficits, Normal Mood/Affect Skin: Normal Color, Warm/Dry Procedures/Interventions Date of ETT Placement: Nov 10, 2016 Time of ETT Placement: 2219 Progress/Results/Core Measures Suspected Sepsis Recent Fever Within 48 Hours: No Infection Criteria Present: None New/Unexplained Altered Menta: No Sepsis Screen: No Definite Risk SIRS Temperature: Pulse: 96 Respiratory Rate: 18 Laboratory Tests 09/28/20 13:30: White Blood Count 7.5 Blood Pressure 142 /90 Mean: 107 Laboratory Tests 09/28/20 13:30: Creatinine 1.18, Platelet Count 339, Total Bilirubin 0.4 Results/Orders Lab Results Laboratory Tests Test 09/28/20 13:30 Range/Units White Blood Count 7.5 4.3-11.0 10^3/uL Red Blood Count 4.02 L 4.30-5.52 10^6/uL Hemoglobin 11.0 L 13.3-17.7 g/dL Hematocrit 35 L 40-54 % Mean Corpuscular Volume 87 80-99 fL Mean Corpuscular Hemoglobin 27 25-34 pg Mean Corpuscular Hemoglobin Concent 32 32-36 g/dL Red Cell Distribution Width 15.9 H 10.0-14.5 % Platelet Count 339 130-400 10^3/uL Mean Platelet Volume 9.5 9.0-12.2 fL Immature Granulocyte % (Auto) 0 % Neutrophils (%) (Auto) 68 42-75 % Lymphocytes (%) (Auto) 22 12-44 % Monocytes (%) (Auto) 8 0-12 % Eosinophils (%) (Auto) 2 0-10 % Basophils (%) (Auto) 1 0-10 % Neutrophils # (Auto) 5.1 1.8-7.8 10^3/uL Lymphocytes # (Auto) 1.6 1.0-4.0 10^3/uL Monocytes # (Auto) 0.6 0.0-1.0 10^3/uL Eosinophils # (Auto) 0.1 0.0-0.3 10^3/uL Basophils # (Auto) 0.1 0.0-0.1 10^3/uL Immature Granulocyte # (Auto) 0.0 0.0-0.1 10^3/uL Sodium Level 142 135-145 MMOL/L Potassium Level 3.7 3.6-5.0 MMOL/L Chloride Level 106 98-107 MMOL/L Carbon Dioxide Level 27 21-32 MMOL/L Anion Gap 9 5-14 MMOL/L Blood Urea Nitrogen 17 7-18 MG/DL Creatinine 1.18 0.60-1.30 MG/DL Estimat Glomerular Filtration Rate 60 BUN/Creatinine Ratio 14 Glucose Level 97 70-105 MG/DL Calcium Level 8.6 8.5-10.1 MG/DL Corrected Calcium 9.1 8.5-10.1 MG/DL Total Bilirubin 0.4 0.1-1.0 MG/DL Aspartate Amino Transf (AST/SGOT) 20 5-34 U/L Alanine Aminotransferase (ALT/SGPT) 18 0-55 U/L Alkaline Phosphatase 82 40-136 U/L Total Protein 6.3 L 6.4-8.2 GM/DL Albumin 3.4 3.2-4.5 GM/DL My Orders Orders - OSCAR BARRERA MD Ed Iv/Invasive Line Start (09/28/20 13:02) Cbc With Automated Diff (09/28/20 13:02) Comprehensive Metabolic Panel (09/28/20 13:02) Ns Iv 1000 Ml (Sodium Chloride 0.9%) (09/28/20 13:45) Ondansetron Injection (Zofran Injectio (09/28/20 15:15) Ondansetron Injection (Zofran Injectio (09/28/20 15:13) Vital Signs/I&O 09/28/20 12:50 Temp 36.1 Pulse 96 Resp 18 B/P (MAP) 142/90 (107) Pulse Ox 95 Capillary Refill : Less Than 3 Seconds Blood Pressure Mean: 107 Progress Note : Time: 13:44 Progress Note Patient seen and examined, 75-year-old with a chief complaint of nasal congestion coughing and posttussive emesis. Patient is concerned about dehydration. States that he feels weak. Patient evaluation today includes a physical exam, CBC, Chem-12. Patient is treated here in the emergency department with 1 L of normal saline Departure Impression Primary Impression: Dehydration Disposition: 01 HOME, SELF-CARE Condition: Stable Departure-Patient Inst. Decision time for Depature: 14:43 Referrals: ANDREINA MESA MD (PCP/Family) Primary Care Physician Patient Instructions: Dehydration, Adult ED Add. Discharge Instructions: Drink plenty of fluids to stay well-hydrated. Use your Zofran/ondansetron nausea medication at home as needed for nausea and vomiting. Follow-up with your primary care physician. Return to the emergency room for any worsening symptoms, new, concerns or emergent complaints. Scripts Ondansetron (Ondansetron Odt) 8 Mg Tab.rapdis 8 MG PO Q8H, #20 TAB Prov: OSCAR BARRERA MD 09/28/20 Copy Copies To 1: ANDREINA MESA MD, KATHRYN M MD Sep 28, 2020 13:44
[2020-09-28] MEDS ORDERED: NS IV 1000 ML 1,000 ML IV SCH (13:45)
[2020-09-28 13:51] LABS: ALBUMIN 3.4 GM/DL (3.2-4.5); POTASSIUM 3.7 MMOL/L (3.6-5.0)
[2020-09-28 13:52] LABS: CALCIUM 8.6 MG/DL (8.5-10.1)
[2020-09-28 13:54] LABS: TOTAL PROTEIN 6.3 GM/DL (6.4-8.2)
[2020-09-28 13:55] LABS: BILIRUBIN,TOTAL 0.4 MG/DL (0.1-1.0)
[2020-09-28 13:57] LABS: CREATININE SERUM 1.18 MG/DL (0.60-1.30)
[2020-09-28] MEDS ORDERED: ONDANSETRON 4 MG/2 ML (SDV) Z0FRAN ONE (15:13)
[2020-09-28] MEDS ORDERED: ONDANSETRON 4 MG/2 ML (SDV) Z0FRAN IVP ONE (15:15)
[2020-09-28] MEDS ORDERED: ONDA8TAB13 PO (15:22)
[2020-09-28 15:26] VITALS: BP 122/70
== END 2020-09-28 15:26 | disposition home or self-care (01) ==
LOC: EDUNIT# 12:41 → ER 12:42
DX: E86.0 Dehydration (principal); J44.9 Chronic obstructive pulmonary disease, unspecified; E78.00 Pure hypercholesterolemia, unspecified; I10 Essential (primary) hypertension; E03.9 Hypothyroidism, unspecified; K21.9 Gastro-esophageal reflux disease without esophagitis; F17.210 Nicotine dependence, cigarettes, uncomplicated; Z88.2 Allergy status to sulfonamides; Z79.890 Hormone replacement therapy; Z79.82 Long term (current) use of aspirin
CPT/HCPCS: 36415; 80053; 85025

== ENCOUNTER → 2021-01-22 | Outpatient (CLI) | payer MEDICARE ==
[2021-01-22 12:01] LABS: CHLORIDE 102 MMOL/L (98-107); POTASSIUM 4.3 MMOL/L (3.6-5.0); SODIUM 139 MMOL/L (135-145)
[2021-01-22 12:02] LABS: ALBUMIN 3.4 GM/DL (3.2-4.5); CALCIUM 9.1 MG/DL (8.5-10.1)
[2021-01-22 12:03] LABS: TRIGLYCERIDES 81 MG/DL (<150); VLDL CHOLESTEROL 16 MG/DL (5-40)
[2021-01-22 12:04] LABS: GLUCOSE 94 MG/DL (70-105); TOTAL PROTEIN 6.8 GM/DL (6.4-8.2)
[2021-01-22 12:05] LABS: CARBON DIOXIDE 29 MMOL/L (21-32)
[2021-01-22 12:06] LABS: BILIRUBIN,TOTAL 0.3 MG/DL (0.1-1.0)
[2021-01-22 12:07] LABS: ALKALINE PHOSPHATASE 77 U/L (40-136); CREATININE SERUM 1.12 MG/DL (0.60-1.30); GFR ESTIMATED > 60
[2021-01-22 12:08] LABS: CHOLESTEROL 151 MG/DL (< 200)
[2021-01-22 12:09] LABS: BUN/CREATININE RATIO 20
[2021-01-22 12:10] LABS: HDL CHOLESTEROL 44 MG/DL (40-60)
[2021-01-22 12:11] LABS: ALANINE AMINOTRANSFERASE 10 U/L (0-55)
== END ==
LOC: CARD 11:23
PROVIDERS: ATTEND Internal Medicine Cardiovascular Disease
DX: I11.9 Hypertensive heart disease without heart failure (principal); I08.0 Rheumatic disorders of both mitral and aortic valves; E78.2 Mixed hyperlipidemia
CPT/HCPCS: 36415; 80053; 80061; 93306

== ENCOUNTER 2022-03-02 15:00 | Emergency (ER) | payer MEDICARE, OTHER ==
[~2022-03-02] VITALS: Ht 167.7 cm; Wt 65.7 kg
[~2022-03-02 15:00] MED LIST changes: -CITA10TA7 PO; +CITA10TA9 PO; +ONDA-106 PO; -ONDA8TAB15 PO; -POTA10TA36 PO; +POTA10TA37 PO; +TIZA-186 PO; -TIZA4TAB4 PO
--- NOTE | 2022-03-02 15:41 | ED General ---
General Chief Complaint: General Problems/Pain Stated Complaint: MED REFILL - MORPHINE & OXYCODONE Nursing Triage Note: WENT TO AN APPOINTMENT FOR A MEDICAL VISIT AND MED REFIL WITH DR TEJEDA LAST WEEK AND WAS UNABLE TO SEE DR Thomas/T DR PASSING AWAY. PATIENT HAS USED ALL MORPHINE AN OXYCODONE HE HAS AND IS UNBLE TO REESTABLISH WITH ANOTHER PHYSICIAN IN A TIMELY FASHION TO OBTAIN HIS REFILS OF PAIN MEDICATION. PATIENT STATES HE FEELS LIKE HE IS STARTING TO GO INTO WITHDRAW. Source of Information: Patient Exam Limitations: No Limitations (DAVIS LEONARD) History of Present Illness Date Seen by Provider: Mar 02, 2022 Time Seen by Provider: 15:38 Initial Comments This is a 76-year-old male with history of rheumatoid arthritis and presents for medication refill. His primary care doctor unfortunately on and he is out of his morphine and oxycodone. He has no active complaints except for chronic pain. He has been on the same medications for several years. Timing/Duration: 1 Day Severity: Mild Associated Systoms: Denies Symptoms (DAVIS LEONARD) Allergies and Home Medications Allergies Coded Allergies: Sulfa (Sulfonamide Antibiotics) (Verified Allergy, Mild, GI UPSET, 08/11/17) Patient Home Medication List Home Medication List Reviewed: Yes (DAVIS LEONARD) Aspirin (Aspirin) 81 Mg Tab.chew, 81 MG PO DAILY, (Reported) Entered as Reported by: SUSAN AC on 06/20/17 1442 Atorvastatin Calcium (Lipitor) 40 Mg Tablet, 40 MG PO HS, (Reported) Entered as Reported by: MARA MEDELLIN on 11/29/16 1023 Budesonide/Formoterol Fumarate (Symbicort 160-4.5 Mcg Inhaler) 10.2 Gm Hfa.aer.ad, 2 PUFF IH BID, (Reported) Entered as Reported by: MIKKI MIMS on 06/22/17 0802 Carvedilol (Carvedilol) 12.5 Mg Tablet, 12.5 MG PO BID, (Reported) Entered as Reported by: SUSAN AC on 06/20/17 1442 Cephalexin (Keflex) 500 Mg Capsule, 500 MG PO BID Prescribed by: NOLBERTO GONZALEZ on 11/16/18 0919 Citalopram Hydrobromide (Citalopram HBr) 10 Mg Tablet, 10 MG PO DAILY, (Reported) Entered as Reported by: MIRI ULLOA on 08/08/17 1115 Ipratropium/Albuterol Sulfate (Iprat-Albut 0.5-3(2.5) mg/3 ml) 3 Ml Ampul.neb, 3 ML IH Q6H PRN for SHORTNESS OF BREATH, (Reported) Entered as Reported by: MARA MEDELLIN on 11/29/16 1025 Levothyroxine Sodium (Levothyroxine Sodium) 200 Mcg Tablet, 200 MCG PO DAILY, (Reported) Entered as Reported by: SUSAN AC on 06/20/17 1442 Methotrexate Tablet (Methotrexate Tablet) 2.5 Mg Tablet, 12.5 MG PO Fr, (Repor melissa) Entered as Reported by: MARA MEDELLIN on 02/13/18 1601 Morphine Sulfate (Morphine Sulfate ER) 30 Mg Tablet.er, 30 MG PO Q8H PRN for SEVERE PAIN, (Reported) Entered as Reported by: ANU DEL CID on 12/15/16 1021 Morphine Sulfate (Morphine Sulfate ER) 30 Mg Tablet.er, 30 MG PO TID Prescribed by: LAKESHIA FRIAS on 03/02/22 1547 Ondansetron (Ondansetron Odt) 8 Mg Tab.rapdis, 8 MG PO Q8H Prescribed by: OSCAR BARRERA on 09/28/20 1522 Ondansetron HCl (Ondansetron HCl) 8 Mg Tablet, 8 MG PO Q8H PRN for NAUSEA/VOMITING-1ST LINE, (Reported) Entered as Reported by: SUSAN AC on 06/20/17 1442 Oseltamivir Phosphate (Tamiflu) 75 Mg Cap, 75 MG PO BID Prescribed by: NOLBERTO GONZALEZ on 11/15/18 0817 Oxycodone HCl/Acetaminophen (Oxycodone-Acetaminophen 10-325) 1 Each Tablet, 1 TAB PO Q4H PRN for PAIN-MODERATE, (Reported) Entered as Reported by: SUSAN AC on 06/20/17 1442 Oxycodone HCl/Acetaminophen (Oxycodone-Acetaminophen 10-325) 10 Mg-325 Mg Tablet, 1 EACH PO Q6H PRN for PAIN-MODERATE Prescribed by: LAKESHIA FRIAS on 03/02/22 1547 Pantoprazole Sodium (Pantoprazole Sodium) 40 Mg Tablet.dr, 40 MG PO DAILY, (Reported) Entered as Reported by: SUSAN AC on 06/20/17 1442 Temazepam (Temazepam) 15 Mg Capsule, 15 MG PO HS, (Reported) Entered as Reported by: MIRI ULLOA on 08/08/17 1115 Review of Systems Review of Systems Constitutional: no symptoms reported EENTM: see HPI Respiratory: no symptoms reported Cardiovascular: no symptoms reported Gastrointestinal: no symptoms reported Genitourinary: no symptoms reported Musculoskeletal: see HPI Skin: no symptoms reported (DAVIS LEONARD) Past Fenlcfx-Khgerf-Qweyoc Hx Patient Social History Tobacco Use?: Yes Tobacco type used: Cigarettes Smoking Status: Current Everyday Smoker Use of E-Cig and/or Vaping dev: No Substance use?: No Alcohol Use?: No Pt feels they are or have been: No (DAVIS LEONARD) Immunizations Up To Date Tetanus Booster (TDap): Unknown Influenza Vaccine Up-to-Date: Yes; Up-to-Date First/Initial COVID19 Vaccinat: DECLINED (DAVIS LEONARD) Seasonal Allergies Seasonal Allergies: Yes (DAVIS LEONARD) Past Medical History Surgeries: Yes (L KNEE REPLACEMENT, L WRIST, ANGIOPLASTY, colon resection with colostomy) Abdominal, Cardiac, Orthopedic Respiratory: Yes Chronic Bronchitis, COPD, Emphysema Currently Using CPAP: No Currently Using BIPAP: No Cardiac: Yes ( PULMONARY HTN) Chronic Edema/Swelling, Coronary Artery Disease, High Cholesterol, Hypertension, Peripheral Vascular Neurological: No Reproductive Disorders: No Sexually Transmitted Disease: Yes HIV/AIDS: No Genitourinary: No Renal Failure Gastrointestinal: Yes (colostomy) Colitis, Gastroesophageal Reflux, Hemorrhoids Musculoskeletal: Yes (BILATERAL OLECRANON BURSITIS) Osteoporosis, Arthritis, Rheumatoid Arthritis Endocrine: Yes Hypothyroidsim HEENT: Yes (GLASSES, DENTURES) Loss of Vision: Bilateral Hearing Impairment: Denies Cancer: No Psychosocial: Yes Anxiety Integumentary: Yes (HX LEG WOUNDS) Eczema, Psoriasis Blood Disorders: Yes (HX ANEMIA) Adverse Reaction/Blood Tranf: No (HAS HAD BLOOD WITH NO REACTION) (DAVIS LEONARD) Family Medical History Patient reports no known family medical history. No Pertinent Family Hx, Diabetes (DAVIS LEONARD) Physical Exam Vital Signs Vital Signs - First Documented 03/02/22 15:10 Temp 36.3 Pulse 19 Resp 18 B/P (MAP) 121/79 (93) Pulse Ox 96 (LONNY STOVALL) Vital Signs Capillary Refill : (DAVIS LEONARD) Height, Weight, BMI Height: 5'9.00" Weight: 142lbs. 8.0oz. 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 Norm as Tested Skin: Normal Color Lymphatic: No Adenopathy (DAVIS LEONARD) Procedures/Interventions Date of ETT Placement: Nov 10, 2016 Time of ETT Placement: 2219 (DAVIS LEONARD) Progress/Results/Core Measures Suspected Sepsis SIRS Temperature: Pulse: 19 Respiratory Rate: 18 Blood Pressure 121 /79 Mean: 93 (DAVIS LEONARD) Results/Orders Vital Signs/I&O 03/02/22 03/02/22 15:10 16:17 Temp 36.3 36.3 Pulse 19 19 Resp 18 18 B/P (MAP) 121/79 (93) 121/79 Pulse Ox 96 96 (LONNY STOVALL) Vital Signs/I&O Capillary Refill : (DAVIS LEONARD) Blood Pressure Mean: 93 Departure Communication (PCP) Patient is afebrile, nontoxic and in no distress. We will refill his pain medications for 1 week as he tries to reestablish with a new primary care doctor here locally. I do not feel that lab work or imaging is indicated at this time. (DAVIS LEONADR) Impression Primary Impression: Chronic pain Disposition: 01 HOME, SELF-CARE Condition: Stable Departure-Patient Inst. Decision time for Depature: 15:40 (DAVIS LEONARD) Decision time for Depature: 15:41 (LONNY STOVALL) [facility]: [facility],LOCAL PHYSICIAN (PCP) Primary Care Physician Patient Instructions: CHRONIC PAIN Scripts Morphine Sulfate (Morphine Sulfate ER) 30 Mg Tablet.er 30 MG PO TID, #21 TAB Prov: LONNY STOVALL 03/02/22 Oxycodone HCl/Acetaminophen (Oxycodone-Acetaminophen 10-325) 10 Mg-325 Mg Tablet 1 EACH PO Q6H PRN for PAIN-MODERATE MDD 3, #28 TAB Prov: LONNY STOVALL 03/02/22 ATTENDING PHYSICIAN NOTE: I was physically present as attending physician in the emergency department during the care of this patient, but I was not directly involved in the decision making or delivery of care for this patient. (DENIS SUMMERS MD) DAVIS LEONARD Mar 02, 2022 15:41 LONNY STOVALL Mar 02, 2022 15:47 DENIS SUMMERS MD Mar 03, 2022 21:29
[2022-03-02] MEDS ORDERED: OXYC-556 PO (15:46)
[2022-03-02] MEDS ORDERED: MORP-69 PO (15:46)
[2022-03-02 16:17] VITALS: BP 121/79
== END 2022-03-02 16:16 | disposition home or self-care (01) ==
LOC: EDUNIT# 15:00 → ER 15:02
DX: G89.29 Other chronic pain (principal); Z76.0 Encounter for issue of repeat prescription; M06.9 Rheumatoid arthritis, unspecified; F17.210 Nicotine dependence, cigarettes, uncomplicated; Z79.891 Long term (current) use of opiate analgesic
CPT/HCPCS: 99281

== ENCOUNTER 2022-03-11 13:38 | Emergency (ER) | payer MEDICARE, OTHER ==
[~2022-03-11] VITALS: Ht 165 cm; Wt 66.0 kg
[2022-03-11 13:42] VITALS: BP 91/60
--- NOTE | 2022-03-11 14:05 | ED General ---
General Chief Complaint: General Problems/Pain Stated Complaint: MED REFILL Nursing Triage Note: Pt states that his PCP and he is scheduled to see his new PCP on 03/17/22. He is out of his controlled meds and can't get them refilled until then. Would like to know if we can help him out. Source of Information: Patient Exam Limitations: No Limitations History of Present Illness Date Seen by Provider: Mar 11, 2022 Time Seen by Provider: 13:59 Initial Comments This is a 76-year-old male that presents to the emergency room for medication refill. His primary care doctor unfortunately recently and he is not scheduled to see any doctor until the . No other complaints at this time Timing/Duration: 1 Day Allergies and Home Medications Allergies Coded Allergies: Sulfa (Sulfonamide Antibiotics) (Verified Allergy, Mild, GI UPSET, 08/11/17) Patient Home Medication List Home Medication List Reviewed: Yes Aspirin (Aspirin) 81 Mg Tab.chew, 81 MG PO DAILY, (Reported) Entered as Reported by: SUSAN AC on 06/20/17 1442 Atorvastatin Calcium (Lipitor) 40 Mg Tablet, 40 MG PO HS, (Reported) Entered as Reported by: MARA MEDELLIN on 11/29/16 1023 Budesonide/Formoterol Fumarate (Symbicort 160-4.5 Mcg Inhaler) 10.2 Gm Hfa.aer.ad, 2 PUFF IH BID, (Reported) Entered as Reported by: MIKKI MIMS on 06/22/17 0802 Carvedilol (Carvedilol) 12.5 Mg Tablet, 12.5 MG PO BID, (Reported) Entered as Reported by: SUSAN AC on 06/20/17 1442 Cephalexin (Keflex) 500 Mg Capsule, 500 MG PO BID Prescribed by: NOLBERTO GONZALEZ on 11/16/18 0919 Citalopram Hydrobromide (Citalopram HBr) 10 Mg Tablet, 10 MG PO DAILY, (Reported) Entered as Reported by: MIRI ULLOA on 08/08/17 1115 Ipratropium/Albuterol Sulfate (Iprat-Albut 0.5-3(2.5) mg/3 ml) 3 Ml Ampul.neb, 3 ML IH Q6H PRN for SHORTNESS OF BREATH, (Reported) Entered as Reported by: MARA MEDELLIN on 11/29/16 1025 Levothyroxine Sodium (Levothyroxine Sodium) 200 Mcg Tablet, 200 MCG PO DAILY, (Reported) Entered as Reported by: SUSAN AC on 06/20/17 1442 Methotrexate Tablet (Methotrexate Tablet) 2.5 Mg Tablet, 12.5 MG PO Fr, (Reported) Entered as Reported by: MARA MEDELLIN on 02/13/18 1601 Morphine Sulfate (Morphine Sulfate ER) 30 Mg Tablet.er, 30 MG PO Q8H PRN for SEVERE PAIN Prescribed by: John Trujillo on 03/11/22 1406 Ondansetron (Ondansetron Odt) 8 Mg Tab.rapdis, 8 MG PO Q8H Prescribed by: OSCAR BARRERA on 09/28/20 1522 Ondansetron HCl (Ondansetron HCl) 8 Mg Tablet, 8 MG PO Q8H PRN for NAUSEA/VOMITING-1ST LINE, (Reported) Entered as Reported by: SUSAN AC on 06/20/17 1442 Oseltamivir Phosphate (Tamiflu) 75 Mg Cap, 75 MG PO BID Prescribed by: NOLBERTO GONZALEZ on 11/15/18 0817 Oxycodone HCl/Acetaminophen (Oxycodone-Acetaminophen 10-325) 1 Each Tablet, 1 TAB PO Q4H PRN for PAIN-MODERATE, (Reported) Entered as Reported by: SUSAN AC on 06/20/17 1442 Pantoprazole Sodium (Pantoprazole Sodium) 40 Mg Tablet.dr, 40 MG PO DAILY, (Reported) Entered as Reported by: SUSAN AC on 06/20/17 1442 Temazepam (Temazepam) 15 Mg Capsule, 15 MG PO HS, (Reported) Entered as Reported by: MIRI ULLOA on 08/08/17 1115 Tizanidine HCl (Tizanidine HCl) 4 Mg Tablet, 4 MG PO TID Prescribed by: John Trujillo on 03/11/22 1406 Discontinued Medications Morphine Sulfate (Morphine Sulfate ER) 30 Mg Tablet.er, 30 MG PO TID Discontinued Reason: Prescription changed Prescribed by: LAKESHIA FRIAS on 03/02/221546 Oxycodone HCl/Acetaminophen (Oxycodone-Acetaminophen 10-325) 10 Mg-325 Mg T ablet, 1 EACH PO Q6H PRN for PAIN-MODERATE Discontinued Reason: Prescription changed Prescribed by: LAKESHIA FRIAS on 03/02/221546 Review of Systems Review of Systems Constitutional: no symptoms reported EENTM: no symptoms reported Respiratory: no symptoms reported Musculoskeletal: joint pain Skin: no symptoms reported All Other Systems Reviewed Negative Unless Noted: Yes Past Zvxuaaq-Cpxhvh-Sdzuqp Hx Patient Social History Tobacco Use?: Yes Tobacco type used: Cigarettes Smoking Status: Current Everyday Smoker Use of E-Cig and/or Vaping dev: No Substance use?: No Alcohol Use?: No Pt feels they are or have been: No Immunizations Up To Date Tetanus Booster (TDap): Unknown First/Initial COVID19 Vaccinat: DECLINED Seasonal Allergies Seasonal Allergies: Yes Past Medical History Surgeries: Yes (L KNEE REPLACEMENT, L WRIST, ANGIOPLASTY, colon resection with colostomy) Abdominal, Cardiac, Orthopedic Respiratory: Yes Chronic Bronchitis, COPD, Emphysema Currently Using CPAP: No Currently Using BIPAP: No Cardiac: Yes ( PULMONARY HTN) Chronic Edema/Swelling, Coronary Artery Disease, High Cholesterol, Hypertension, Peripheral Vascular Neurological: No Reproductive Disorders: No Sexually Transmitted Disease: Yes HIV/AIDS: No Genitourinary: No Renal Failure Gastrointestinal: Yes (colostomy) Colitis, Gastroesophageal Reflux, Hemorrhoids Musculoskeletal: Yes (BILATERAL OLECRANON BURSITIS) Osteoporosis, Arthritis, Rheumatoid Arthritis Endocrine: Yes Hypothyroidsim HEENT: Yes (GLASSES, DENTURES) Loss of Vision: Bilateral Hearing Impairment: Denies Cancer: No Psychosocial: Yes Anxiety Integumentary: Yes (HX LEG WOUNDS) Eczema, Psoriasis Blood Disorders: Yes (HX ANEMIA) Adverse Reaction/Blood Tranf: No (HAS HAD BLOOD WITH NO REACTION) Family Medical History Patient reports no known family medical history. No Pertinent Family Hx, Diabetes Physical Exam Vital Signs Vital Signs - First Documented 03/11/22 13:42 Temp 37.1 Pulse 88 Resp 16 B/P (MAP) 91/60 (70) Pulse Ox 96 O2 Delivery Room Air Capillary Refill : Less Than 3 Seconds Height, Weight, BMI Height: 5'9.00" Weight: 142lbs. 8.0oz. 64.238393ti; 24.00 BMI Method:Estimated General Appearance: No Apparent Distress, WD/WN HEENT: Pharynx Normal Neck: Full Range of Motion Respiratory: Chest Non Tender, Lungs Clear Gastrointestinal: Normal Bowel Sounds, Non Tender, Soft Extremity: Other (Chronic deformity to the hands) Neurologic/Psychiatric: Oriented x3 Skin: Normal Color Procedures/Interventions Date of ETT Placement: Nov 10, 2016 Time of ETT Placement: 2219 Progress/Results/Core Measures Suspected Sepsis SIRS Temperature: Pulse: 88 Respiratory Rate: 16 Blood Pressure 91 /60 Mean: 70 Results/Orders Vital Signs/I&O 03/11/22 13:42 Temp 37.1 Pulse 88 Resp 16 B/P (MAP) 91/60 (70) Pulse Ox 96 O2 Delivery Room Air Capillary Refill : Less Than 3 Seconds Blood Pressure Mean: 70 Departure Communication (PCP) Patient is afebrile, nontoxic and in no distress. We will refill his medications for 1 week until he can see his primary care doctor Impression Primary Impression: Chronic pain Additional Impression: Arthritis Disposition: HOME, SELF-CARE Condition: Stable Departure-Patient Inst. Decision time for Depature: 14:02 Referrals: NO,LOCAL PHYSICIAN (PCP/Family) Primary Care Physician Patient Instructions: CHRONIC PAIN Add. Discharge Instructions: Please keep your appointment with your primary care doctor as planned. Return to the emergency room with any severe changes or worsening of symptoms All discharge instructions reviewed with patient and/or family. Voiced unde rstanding. Scripts Tizanidine HCl (Tizanidine HCl) 4 Mg Tablet 4 MG PO TID for 7 Days, #21 TAB Prov: DAVIS TRUJILLO 03/11/22 Morphine Sulfate (Morphine Sulfate ER) 30 Mg Tablet.er 30 MG PO TID, #21 TAB Prov: DAVIS TRUJILLO 03/11/22 Oxycodone HCl/Acetaminophen (Oxycodone-Acetaminophen 10-325) 10 Mg-325 Mg Tablet 1 EACH PO Q6H PRN for PAIN-MODERATE MDD 3, #28 TAB Prov: DAVIS TRUJILLO 03/11/22 Morphine Sulfate (Morphine Sulfate ER) 30 Mg Tablet.er 30 MG PO Q8H PRN for SEVERE PAIN for 7 Days, #21 TAB Prov: DAVIS TRUJILLO 03/11/22 DAVIS TRUJILLO Mar 11, 2022 14:05
[2022-03-11] MEDS ORDERED: OXYC-556 PO (14:06)
[2022-03-11] MEDS ORDERED: TIZA-186 PO (14:06)
[2022-03-11] MEDS ORDERED: MORP-69 PO ×2 (14:06)
== END 2022-03-11 14:58 | disposition home or self-care (01) ==
LOC: EDUNIT# 13:38 → ER 13:40
DX: M19.042 Primary osteoarthritis, left hand (principal); M19.041 Primary osteoarthritis, right hand; G89.29 Other chronic pain; F17.210 Nicotine dependence, cigarettes, uncomplicated; Z28.310 Unvaccinated for COVID-19
CPT/HCPCS: 99281

== ENCOUNTER 2022-08-18 16:36 | Emergency (ER) | payer MEDICARE, OTHER ==
[~2022-08-18] VITALS: Ht 165.1 cm; Wt 65.7 kg
[~2022-08-18 16:36] MED LIST changes: +POTA-177 PO; -POTA10TA37 PO
--- NOTE | 2022-08-18 16:55 | ED Respiratory ---
General Chief Complaint: Respiratory Problems Stated Complaint: SOA Source: patient History of Present Illness Date Seen by Provider: Aug 18, 2022 Time Seen by Provider: 16:47 Initial Comments Patient is a very pleasant 77-year-old male history of COPD who uses breathing treatments via inhaler and nebulizer at home. He has been getting short of breath for the last 8 days more so than usual. He has had a change in his cough with increased sputum production. He denies fevers or chills. He does have a runny nose. He is not vaccinated for flu or COVID. He states his appetite is off a little. He denies chest pain, abdominal pain. No nausea vomiting or diarrhea. No problems with urination. He has a chronic wound to the right lowe r extremity that home health is coming to dress and they were there today. He was reportedly found to be hypoxic today, placed on supplemental oxygen and brought to the emergency room. He used his nebulizer at 11 AM and his inhaler at around 3 PM. No breathing treatment since. All other review of systems reviewed and negative except as stated. Timing/Duration: other (8 days) Severity: moderate Prior Episodes/Possible Cause: occasional episodes Modifying Factors: Improves With Albuterol Inhaler, Improves With Albuterol Nebulizer Associated Symptoms: cough, nasal congestion, shortness of breath, wheezing Allergies and Home Medications Allergies Coded Allergies: Sulfa (Sulfonamide Antibiotics) (Verified Allergy, Mild, GI UPSET, 08/11/17) Patient Home Medication List Home Medication List Reviewed: Yes Aspirin (Aspirin) 81 Mg Tab.chew, 81 MG PO DAILY, (Reported) Entered as Reported by: SUSAN AC on 06/20/17 1442 Atorvastatin Calcium (Lipitor) 40 Mg Tablet, 40 MG PO HS, (Reported) Entered as Reported by: MARA MEDELLIN on 11/29/16 1023 Budesonide/Formoterol Fumarate (Symbicort 160-4.5 Mcg Inhaler) 10.2 Gm Hfa.aer.ad, 2 PUFF IH BID, (Reported) Entered as Reported by: MIKKI MIMS on 06/22/17 0802 Carvedilol (Carvedilol) 12.5 Mg Tablet, 12.5 MG PO BID, (Reported) Entered as Reported by: SUSAN AC on 06/20/17 1442 Cephalexin (Keflex) 500 Mg Capsule, 500 MG PO BID Prescribed by: NOLBERTO GONZALEZ on 11/16/18 0919 Citalopram Hydrobromide (Citalopram HBr) 10 Mg Tablet, 10 MG PO DAILY, (Reported) Entered as Reported by: MIRI ULLOA on 08/08/17 1115 Ipratropium/Albuterol Sulfate (Iprat-Albut 0.5-3(2.5) mg/3 ml) 3 Ml Ampul.neb, 3 ML IH Q6H PRN for SHORTNESS OF BREATH, (Reported) Entered as Reported by: MARA MEDELLIN on 11/29/16 1025 Levothyroxine Sodium (Levothyroxine Sodium) 200 Mcg Tablet, 200 MCG PO DAILY, (Reported) Entered as Reported by: SUSAN AC on 06/20/17 1442 Methotrexate Tablet (Methotrexate Tablet) 2.5 Mg Tablet, 12.5 MG PO Fr, (Reported) Entered as Reported by: MARA MEDELLIN on 02/13/18 1601 Morphine Sulfate (Morphine Sulfate ER) 30 Mg Tablet.er, 30 MG PO Q8H PRN for SEVERE PAIN Prescribed by: John Trujillo on 03/11/22 1406 Morphine Sulfate (Morphine Sulfate ER) 30 Mg Tablet.er, 30 MG PO TID Prescribed by: John Trujillo on 03/11/22 1452 Ondansetron (Ondansetron Odt) 8 Mg Tab.rapdis, 8 MG PO Q8H Prescribed by: OSCAR BARRERA on 09/28/20 1522 Ondansetron HCl (Ondansetron HCl) 8 Mg Tablet, 8 MG PO Q8H PRN for NAUSEA/VOMITING-1ST LINE, (Reported) Entered as Reported by: SUSAN AC on 06/20/17 1442 Oseltamivir Phosphate (Tamiflu) 75 Mg Cap, 75 MG PO BID Prescribed by: NOLBERTO GONZALEZ on 11/15/18 0817 Oxycodone HCl/Acetaminophen (Oxycodone-Acetaminophen 10-325) 1 Each Tablet, 1 TAB PO Q4H PRN for PAIN-MODERATE, (Reported) Entered as Reported by: SUSAN AC on 06/20/17 1442 Oxycodone HCl/Acetaminophen (Oxycodone-Acetaminophen 10-325) 10 Mg-325 Mg Tablet, 1 EACH PO Q6H PRN for PAIN-MODERATE Prescribed by: John Trujillo on 03/11/22 1452 Pantoprazole Sodium (Pantoprazole Sodium) 40 Mg Tablet.dr, 40 MG PO DAILY, (Reported) Entered as Reported by: SUSAN AC on 06/20/17 1442 Temazepam (Temazepam) 15 Mg Capsule, 15 MG PO HS, (Reported) Entered as Reported by: MIRI ULLOA on 08/08/17 1115 Tizanidine HCl (Tizanidine HCl) 4 Mg Tablet, 4 MG PO TID Prescribed by: John Trujillo on 03/11/22 1406 Review of Systems Review of Systems Constitutional: see HPI, weakness EENTM: nose congestion Respiratory: cough, phlegm, short of breath, wheezing Cardiovascular: no symptoms reported Gastrointestinal: no symptoms reported Genitourinary: no symptoms reported Musculoskeletal: no symptoms reported Skin: other (Chronic wound right lower extremity) All Other Systems Reviewed Negative Unless Noted: Yes Past Gsqgjlt-Wfetgu-Lwvmhy Hx Immunizations Up To Date Tetanus Booster (TDap): Unknown First/Initial COVID19 Vaccinat: DECLINED Seasonal Allergies Seasonal Allergies: Yes Past Medical History Surgeries: Yes (L KNEE REPLACEMENT, L WRIST, ANGIOPLASTY, colon resection with colostomy) Abdominal, Cardiac, Orthopedic Respiratory: Yes Chronic Bronchitis, COPD, Emphysema Currently Using CPAP: No Currently Using BIPAP: No Cardiac: Yes ( PULMONARY HTN) Chronic Edema/Swelling, Coronary Artery Disease, High Cholesterol, Hypertension, Peripheral Vascular Neurological: No Reproductive Disorders: No Sexually Transmitted Disease: Yes HIV/AIDS: No Genitourinary: No Renal Failure Gastrointestinal: Yes (colostomy) Colitis, Gastroesophageal Reflux, Hemorrhoids Musculoskeletal: Yes (BILATERAL OLECRANON BURSITIS) Osteoporosis, Arthritis, Rheumatoid Arthritis Endocrine: Yes Hypothyroidsim HEENT: Yes (GLASSES, DENTURES) Loss of Vision: Bilateral Hearing Impairment: Denies Cancer: No Psychosocial: Yes Anxiety Integumentary: Yes (HX LEG WOUNDS) Eczema, Psoriasis Blood Disorders: Yes (HX ANEMIA) Adverse Reaction/Blood Tranf: No (HAS HAD BLOOD WITH NO REACTION) Family Medical History Patient reports no known family medical history. No Pertinent Family Hx, Diabetes Physical Exam Vital Signs - First Documented 08/18/22 16:36 Temp 36.1 Pulse 88 B/P (MAP) 122/63 (82) Pulse Ox 99 O2 Delivery Nasal Cannula O2 Flow Rate 6.00 Capillary Refill : Height: 5'9.00" Weight: 142lbs. 8.0oz. 64.469025az; 24.00 BMI Method:Estimated General Appearance: WD/WN, no apparent distress, other (Appears chronically ill) Eyes: Bilateral Eye Normal Inspection, Bilateral Eye PERRL, Bilateral Eye EOMI HEENT: PERRL/EOMI Neck: normal inspection Respiratory: other (Diminished breath sounds throughout, overall poor air movement with faint expiratory wheezes posteriorly; room air oxygen saturations 93 to 95%, slightly labored) Cardiovascular: regular rate, rhythm Gastrointestinal: non tender, soft Extremities: normal range of motion Neurologic/Psychiatric: alert, normal mood/affect, oriented x 3 Skin: normal color, warm/dry, other (Clubbing to the fingertips, tobacco stains to his right hand, wound to the right lower extremity that has a fresh dressing. 1+ pitting edema bilateral lower extremities) Procedures/Interventions Date of ETT Placement: Nov 10, 2016 Time of ETT Placement: 2219 Progress/Results/Core Measures Suspected Sepsis SIRS Temperature: Pulse: Respiratory Rate: Laboratory Tests 08/18/22 17:04: White Blood Count 11.9H Blood Pressure / Mean: Laboratory Tests 08/18/22 17:04: Creatinine 1.47H, Platelet Count 377 Results/Orders Lab Results Laboratory Tests Test 08/18/22 17:04 Range/Units White Blood Count 11.9 H 4.3-11.0 10^3/uL Red Blood Count 3.99 L 4.30-5.52 10^6/uL Hemoglobin 10.9 L 13.3-17.7 g/dL Hematocrit 34 L 40-54 % Mean Corpuscular Volume 85 80-99 fL Mean Corpuscular Hemoglobin 27 25-34 pg Mean Corpuscular Hemoglobin Concent 32 32-36 g/dL Red Cell Distribution Width 15.8 H 10.0-14.5 % Platelet Count 377 130-400 10^3/uL Mean Platelet Volume 9.5 9.0-12.2 fL Immature Granulocyte % (Auto) 0 % Neutrophils (%) (Auto) 73 42-75 % Lymphocytes (%) (Auto) 19 12-44 % Monocytes (%) (Auto) 6 0-12 % Eosinophils (%) (Auto) 1 0-10 % Basophils (%) (Auto) 1 0-10 % Neutrophils # (Auto) 8.7 H 1.8-7.8 10^3/uL Lymphocytes # (Auto) 2.3 1.0-4.0 10^3/uL Monocytes # (Auto) 0.7 0.0-1.0 10^3/uL Eosinophils # (Auto) 0.1 0.0-0.3 10^3/uL Basophils # (Auto) 0.1 0.0-0.1 10^3/uL Immature Granulocyte # (Auto) 0.0 0.0-0.1 10^3/uL Sodium Level 135 135-145 MMOL/L Potassium Level 5.0 3.6-5.0 MMOL/L Chloride Level 101 98-107 MMOL/L Carbon Dioxide Level 21 21-32 MMOL/L Anion Gap 13 5-14 MMOL/L Blood Urea Nitrogen 31 H 7-18 MG/DL Creatinine 1.47 H 0.60-1.30 MG/DL Estimat Glomerular Filtration Rate 49 BUN/Creatinine Ratio 21 Glucose Level 86 70-105 MG/DL Calcium Level 9.2 8.5-10.1 MG/DL Procalcitonin 0.08 <0.10 NG/ML Influenza Type A (RT-PCR) Not Detected Not Detecte Influenza Type B (RT-PCR) Not Detected Not Detecte SARS-CoV-2 RNA (RT-PCR) Not Detected Not Detecte My Orders Orders - OSCAR BARRERA MD Ed Iv/Invasive Line Start (08/18/22 17:01) Cbc With Automated Diff (08/18/22 17:01) Basic Metabolic Panel (08/18/22 17:01) Procalcitonin (Pct) (08/18/22 17:01) Chest 1 View, Ap/Pa Only (08/18/22 17:01) Communication For Respiratory (08/18/22 17:01) Covid 19 Inhouse Test (08/18/22 17:01) Influenza A And B By Pcr (08/18/22 17:01) Isolation Central Supply Req (08/18/22 17:01) Albuterol/Ipra Inhalation Soln (Duoneb I (08/18/22 17:15) Svn Small Volume Nebulizer (08/18/22 17:01) Medications Given in ED Current Medications Medications Dose Ordered Sig/Janeth Route Start Time Stop Time Status Last Admin Dose Admin Albuterol/ Ipratropium 3 ml ONCE ONCE INH 08/18/22 17:15 08/18/22 17:16 DC 08/18/22 17:20 3 ML Vital Signs/I&O 08/18/22 08/18/22 08/18/22 16:36 16:36 17:23 Temp 36.1 Pulse 88 B/P (MAP) 122/63 (82) Pulse Ox 99 95 O2 Delivery Nasal Cannula Nasal Cannula Room Air O2 Flow Rate 6.00 6.00 Capillary Refill : Progress Note : Time: 18:03 Progress Note Patient reassessed after his breathing treatment, labs and chest x-ray. He is moving a lot more air, oxygen saturations 94 to 96%. No increased work of breathing/respiratory distress. Labs are reviewed and within normal limits. No concerning findings on physical examination or labs for sepsis. He has changes consistent with chronic obstructive pulmonary disease on his chest x-ray, no consolidative pneumonia, no effusion. He feels much better after his breathing treatment. I recommended due to the length of time of his illness, his change in sputum, decreased appetite we will go ahead and put him on some antibiotics, doxycycline. Also going to put him on some prednisone for the next 5 days. First dose of these medications given in the ER. Patient requests his medicines to be sent to [facility]. He is comfortable with plan of care. All questions are sought and answered. Patient stable for discharge Diagnostic Imaging Diagonstic Imaging: Xray Plain Films/CT/US/NM/MRI: chest Comments Chest xray: (interpreted by me) no consolidative process. no infiltrate. COPD changes Departure Impression Primary Impression: COPD (chronic obstructive pulmonary disease) with acute bronchitis Disposition: HOME, SELF-CARE Condition: Improved Departure-Patient Inst. Decision time for Depature: 18:05 Referrals: NO,LOCAL PHYSICIAN (PCP/Family) Primary Care Physician Patient Instructions: Chronic Obstructive Pulmonary Disease (COPD), Including Emphysema Add. Discharge Instructions: Take the antibiotics as directed twice a day for 10 days. you have been given your first dose here in the ER. Prednisone daily for the next 4 days. Use your nebulizer around the clock every 6 hours for the next 2-3 days. You can also use your inhaler every 4 hours as needed. Over the counter mucinex to help with congestion and thinning your secretions. Please call and follow up with your family doctor early next week. Return to the Emergency Department for any worsening shortness of breath, cough, high fever or other emergent concerns. Scripts Prednisone (Prednisone) 50 Mg Tab 50 MG PO DAILY for 4 Days, #4 TAB Prov: OSCAR BARRERA MD 08/18/22 Doxycycline Hyclate (Doxycycline Hyclate) 100 Mg Tablet 100 MG PO BID, #20 TAB 0 Refills Prov: OSCAR BARRERA MD 08/18/22 OSCAR BARRERA MD Aug 18, 2022 16:55
[2022-08-18 17:12] LABS: BASOPHILS # (AUTO) 0.1 10^3/uL (0.0-0.1); BASOPHILS % (AUTO) 1 % (0-10); EOSINOPHILS # (AUTO) 0.1 10^3/uL (0.0-0.3); EOSINOPHILS % (AUTO) 1 % (0-10); HEMATOCRIT 34 % (40-54); HEMOGLOBIN 10.9 g/dL (13.3-17.7); LYMPHOCYTES # (AUTO) 2.3 10^3/uL (1.0-4.0); LYMPHOCYTES % (AUTO) 19 % (12-44); MEAN CORPUSCULAR HEMOGLOBIN 27 pg (25-34); MEAN CORPUSCULAR HGB CONC 32 g/dL (32-36); MEAN CORPUSCULAR VOLUME 85 fL (80-99); MEAN PLATELET VOLUME 9.5 fL (9.0-12.2); MONOCYTES # (AUTO) 0.7 10^3/uL (0.0-1.0); MONOCYTES % (AUTO) 6 % (0-12); NEUTROPHILS # (AUTO) 8.7 10^3/uL (1.8-7.8); NEUTROPHILS % (AUTO) 73 % (42-75); PLATELET COUNT 377 10^3/uL (130-400); WHITE BLOOD COUNT 11.9 10^3/uL (4.3-11.0)
[2022-08-18] MEDS ORDERED: RT-ALBUTEROL/IPRATROPIUM 3 ML (DUONEB) VIAL INH ONE (17:15)
[2022-08-18 17:17] LABS: CALCIUM 9.2 MG/DL (8.5-10.1)
[2022-08-18 17:21] LABS: CREATININE SERUM 1.47 MG/DL (0.60-1.30)
--- NOTE | 2022-08-18 18:02 | Diagnostic Imaging Report ---
INDICATION: Dyspnea and congestion. AP view of chest is obtained with comparison made to study of 11/13/2018. Overall heart size is within normal limits. Background air trapping with prominent interstitial markings which has increased when compared to previous study. No pneumothorax is identified. No significant pleural fluid is seen. IMPRESSION: Background COPD with increasing interstitial markings may represent progressive fibrosis although superimposed edema or pneumonitis is not excluded. Dictated by: Dictated on workstation # [id number]
[2022-08-18] MEDS ORDERED: PRD50T PO (18:06)
[2022-08-18] MEDS ORDERED: DOXY100T2 PO (18:06)
[2022-08-18] MEDS ORDERED: predniSONE 20 MG TAB PO ONE (18:30)
[2022-08-18] MEDS ORDERED: DOXYCYCLINE 100 MG (VIBRAMYCIN) TABLET PO STA (18:30)
[2022-08-18 18:47] VITALS: BP 109/68
== END 2022-08-18 18:47 | disposition home or self-care (01) ==
LOC: EDUNIT# 16:36 → ER 16:37
DX: J20.9 Acute bronchitis, unspecified (principal); J44.0 Chronic obstructive pulmonary disease with (acute) lower respiratory infection; F17.210 Nicotine dependence, cigarettes, uncomplicated; Z28.310 Unvaccinated for COVID-19; Z20.822 Contact with and (suspected) exposure to COVID-19; Z88.1 Allergy status to other antibiotic agents
CPT/HCPCS: 36415; 71045; 80048; 84145; 85025; 87636; 94640

== ENCOUNTER → 2022-10-13 | Outpatient (CLI) | payer MEDICARE, OTHER ==
[~2022-10-13] MED LIST changes: +DOXY100T2 PO; +PRD50T PO
== END ==
LOC: WOUNDCARE 14:46
PROVIDERS: ATTEND Family Medicine
DX: I70.232 Atherosclerosis of native arteries of right leg with ulceration of calf (principal); L97.212 Non-pressure chronic ulcer of right calf with fat layer exposed; I87.331 Chronic venous hypertension (idiopathic) with ulcer and inflammation of right lower extremity; I89.0 Lymphedema, not elsewhere classified; B35.4 Tinea corporis; L03.115 Cellulitis of right lower limb; T65.292A Toxic effect of other tobacco and nicotine, intentional self-harm, initial encounter
CPT/HCPCS: 11042; 11045; 87070; 87077; 87205; G0463; 87186

== ENCOUNTER → 2022-10-21 | Outpatient (CLI) | payer MEDICARE, OTHER | LOC: WOUNDCARE 10:36 | PROVIDERS: ATTEND Family Medicine | DX: I70.232 Atherosclerosis of native arteries of right leg with ulceration of calf (principal); I87.331 Chronic venous hypertension (idiopathic) with ulcer and inflammation of right lower extremity; L97.212 Non-pressure chronic ulcer of right calf with fat layer exposed; I89.0 Lymphedema, not elsewhere classified; B35.4 Tinea corporis; L03.115 Cellulitis of right lower limb; T65.292A Toxic effect of other tobacco and nicotine, intentional self-harm, initial encounter; D46.4 Refractory anemia, unspecified; N18.30 Chronic kidney disease, stage 3 unspecified; A49.01 Methicillin susceptible Staphylococcus aureus infection, unspecified site; I95.2 Hypotension due to drugs; I96 Gangrene, not elsewhere classified | CPT/HCPCS: 11042; 11045; A6197; G0463 ==

== ENCOUNTER → 2022-11-11 | Outpatient (CLI) | payer MEDICARE | LOC: WOUNDCARE 09:13 | PROVIDERS: ATTEND Family Medicine | DX: L97.212 Non-pressure chronic ulcer of right calf with fat layer exposed (principal); I70.242 Atherosclerosis of native arteries of left leg with ulceration of calf; I87.331 Chronic venous hypertension (idiopathic) with ulcer and inflammation of right lower extremity; I89.0 Lymphedema, not elsewhere classified; B35.4 Tinea corporis; L03.115 Cellulitis of right lower limb; T65.222A Toxic effect of tobacco cigarettes, intentional self-harm, initial encounter; D46.4 Refractory anemia, unspecified; N18.30 Chronic kidney disease, stage 3 unspecified; B95.62 Methicillin resistant Staphylococcus aureus infection as the cause of diseases classified elsewhere; R54 Age-related physical debility; M05.89 Other rheumatoid arthritis with rheumatoid factor of multiple sites; Z91.199 Patient's noncompliance with other medical treatment and regimen due to unspecified reason; I96 Gangrene, not elsewhere classified | CPT/HCPCS: 97597; 97598; G0463 ==

== ENCOUNTER → 2022-11-18 | Outpatient (CLI) | payer MEDICARE, OTHER ==
[~2022-11-18] MED LIST changes: +GADOTERATE 0.5 MMOL/ML (CLARISCAN) 15 ML VIAL IV ONE
--- NOTE | 2022-11-18 12:12 | Diagnostic Imaging Report ---
Exam: MRI right tibia and fibula without contrast. Date: November 18, 2022. Indication: 77-year-old male, ulcer at the level of the right tibia and fibula. Pain. Comparison: None. Technique: Multiple noncontrast MRI sequences of the tibia and fibular were obtained. Findings: The patient refused postcontrast imaging per the technologist. There are associated limitations for evaluation of abscess. There is a marker denoting area of focal concern which is anteriorly located at the level of mid to distal tibial diaphysis centered approximately 11.5 cm proximal to the tibial plafond. There is no identified cortical or aggressive bone destruction. There is no T1 marrow signal loss. There is no identified abnormal marrow edema. There is no acute fracture, bone contusion, or evidence of stress reaction. There is diffuse mild fatty muscle atrophy and diffuse low level intramuscular edema. There is also diffuse subcutaneous edema. There is no identified focal fluid collection on noncontrast imaging assessment. The imaged tendons are intact. Impression: 1. Nonspecific diffuse heterogeneous edema without focal fluid collection or abscess on noncontrast imaging assessment. 2. Diffuse mild fatty muscle atrophy with low level intramuscular edema. This may be denervation related. Nonspecific myositis is difficult to exclude. 3. No evidence of osteomyelitis or other acute osseous abnormality. Dictated by: Dictated on workstation # [id number]
== END ==
LOC: RAD 08:56
PROVIDERS: ATTEND Family Medicine
DX: I70.232 Atherosclerosis of native arteries of right leg with ulceration of calf (principal); L97.212 Non-pressure chronic ulcer of right calf with fat layer exposed; I87.331 Chronic venous hypertension (idiopathic) with ulcer and inflammation of right lower extremity; I89.0 Lymphedema, not elsewhere classified; B35.4 Tinea corporis; L03.115 Cellulitis of right lower limb; T65.292A Toxic effect of other tobacco and nicotine, intentional self-harm, initial encounter; D46.4 Refractory anemia, unspecified; N18.30 Chronic kidney disease, stage 3 unspecified; A49.01 Methicillin susceptible Staphylococcus aureus infection, unspecified site; I95.2 Hypotension due to drugs; M62.561 Muscle wasting and atrophy, not elsewhere classified, right lower leg

== ENCOUNTER → 2022-11-18 | Outpatient (CLI) | payer MEDICARE ==
[~2022-11-18] MED LIST changes: -GADOTERATE 0.5 MMOL/ML (CLARISCAN) 15 ML VIAL IV ONE
== END ==
LOC: WOUNDCARE 08:50
PROVIDERS: ATTEND Family Medicine
DX: I87.311 Chronic venous hypertension (idiopathic) with ulcer of right lower extremity (principal); L97.212 Non-pressure chronic ulcer of right calf with fat layer exposed; I70.232 Atherosclerosis of native arteries of right leg with ulceration of calf; I89.0 Lymphedema, not elsewhere classified; T65.292A Toxic effect of other tobacco and nicotine, intentional self-harm, initial encounter; D46.4 Refractory anemia, unspecified; N18.30 Chronic kidney disease, stage 3 unspecified; R54 Age-related physical debility; M05.69 Rheumatoid arthritis of multiple sites with involvement of other organs and systems; Z91.198 Patient's noncompliance with other medical treatment and regimen for other reason; I96 Gangrene, not elsewhere classified
CPT/HCPCS: 97597; 97598; G0463

== ENCOUNTER 2022-11-25 07:55 | Day surgery (SDC) | payer MEDICARE, OTHER ==
[2022-11-25] VITALS (10 sets, daily range): BP systolic 112–133; BP diastolic 68–83
[~2022-11-25] VITALS: Ht 165.1 cm; Wt 65.8 kg
[2022-11-25] MEDS ORDERED: NS IV 1000 ML 1,000 ML IV SCH ×2 (08:15→10:45)
[2022-11-25 08:34] LABS: HEMATOCRIT 37 % (40-54); HEMOGLOBIN 11.8 g/dL (13.3-17.7); MEAN CORPUSCULAR HEMOGLOBIN 26 pg (25-34); MEAN CORPUSCULAR HGB CONC 32 g/dL (32-36); MEAN CORPUSCULAR VOLUME 81 fL (80-99); MEAN PLATELET VOLUME 9.2 fL (9.0-12.2); PLATELET COUNT 422 10^3/uL (130-400); WHITE BLOOD COUNT 11.5 10^3/uL (4.3-11.0)
--- NOTE | 2022-11-25 08:35 | Diagnostic Imaging Report ---
INDICATION: Peripheral vascular disease There is increased opacity in the left upper chest that appears to be well marginated suggesting this may be a pleural-based process. There are no infiltrates, effusions or pneumothoraces. IMPRESSION: Opacity left upper chest measuring 4 x 12 cm. Etiology of this is indeterminate. It could be pleural-based. It could be external artifact. Dictated by: Dictated on workstation # [id number]
[2022-11-25 09:02] LABS: ALBUMIN 3.5 GM/DL (3.2-4.5); BILIRUBIN,TOTAL 0.3 MG/DL (0.1-1.0); CALCIUM 9.9 MG/DL (8.5-10.1); CREATININE SERUM 1.35 MG/DL (0.60-1.30); TOTAL PROTEIN 7.3 GM/DL (6.4-8.2)
[2022-11-25 09:03] LABS: PROTHROMBIN TIME PATIENT 13.1 SEC (12.2-14.7)
[2022-11-25] MEDS ORDERED: HEParin (CATH LAB) 2,000 ML IV ONE (09:03)
[2022-11-25] MEDS ORDERED: NS IV 1000 ML 1,000 ML ONE (09:03)
[2022-11-25] MEDS ORDERED: LIDOCAINE 1% INJ 20 ML VIAL ONE ×2 (09:03→10:13)
--- NOTE | 2022-11-25 09:09 | Cardiac Procedure Note-CS/ASA ---
Pre-Procedure Note Pre-Op Procedure Note Date of Available H&P: Nov 03, 2022 Date H&P Reviewed: Nov 25, 2022 Time H&P Reviewed: 09:09 History & Physical: H&P Reviewed, Patient Examed, No changes noted Pre-Operative Diagnosis: PAD Conscious Sedation Pre-Proced Time 09:09 ASA Score 3 For ASA 3 and 4: Consider anesthesia and medical clearance. Also, for patients with a history of failed moderate sedation consider anesthesia. Airway Lungs Heart ASA score ASA 1: a normal healthy patient ASA 2: a patient with a mild systemic disease (mid diabetes, controlled hypertension, obesity ASA 3: a patient with a severe systemic disease that limits activity (angina, COPD, prior Myocardial infarction) ASA 4: a patient with an incapacitating disease that is a constant threat to life (CHF, renal failure) ASA 5: a moribund patient not expected to survive 24 hrs. (ruptured aneurysm) ASA 6: a declared brain- patient whose organs are being harvested. For emergent operations, add the letter E after the classification Mallampati Classification Grade 3 Sedation Plan Analgesia, Amnesia, Plan communicated to team members, Discussed options with patient/fam, Discussed risks with patient/fam The patient is an appropriate candidate to undergo the planned procedure, sedation, and anesthesia. The patient immediately re-assessed prior to indication. TORY HALL MD Nov 25, 2022 09:09
[2022-11-25] MEDS ORDERED: AMT10T PO (09:18)
[2022-11-25] MEDS ORDERED: MULT-974 PO (09:18)
[2022-11-25] MEDS ORDERED: TIZA4CAP8 PO (09:18)
[2022-11-25] MEDS ORDERED: HYDR25TA4 PO (09:18)
[2022-11-25] MEDS ORDERED: LEVO150C4 PO (09:18)
[2022-11-25] MEDS ORDERED: TERB250T88 PO (09:18)
[2022-11-25] MEDS ORDERED: NALO4SPR3 NS (09:18)
[2022-11-25] MEDS ORDERED: SPIR50TA4 PO (09:18)
[2022-11-25] MEDS ORDERED: CHOL200052 PO (09:18)
[2022-11-25] MEDS ORDERED: morphine er PO (09:18)
[2022-11-25] MEDS ORDERED: GABA-486 PO (09:18)
[2022-11-25] MEDS ORDERED: fentaNYL INJ 100 MCG/2 ML AMP ONE (09:31)
[2022-11-25] MEDS ORDERED: MIDAZOLAM 5 MG/5 ML (VERSED) VIAL ONE (09:31)
[2022-11-25] MEDS ORDERED: PATIENT MAY USE OWN MEDS, ALL PO SCH (10:45)
--- NOTE | 2022-11-25 10:45 | Discharge Inst-Post CATH ---
Discharge Inst-CATH/EP Problems Reviewed?: Yes Post Cardiac Cath/EP D/C Inst Follow Up/Plan Appointment with Dr. Davis's office in 2 to 4 weeks <b>CARDIAC CATH/EP PROCEDURE DISCHARGE INSTRUCTIONS</b> ACTIVITY * Go Home directly and rest. * Limit activity of the leg (or wrist if it was used) for 7 days including aer obics, swimming, jogging, bicycling, etc. * Restrict stair-climbing for 7 days if possible, if not, climb up with your non-cath leg, then bring together on the same step. * Avoid lifting, pushing, pulling or excessive movement of the affected extremi ty for 7 days. * Customary sexual activity may be resumed after 2 days-use caution not to use a position that strains or causes pain to the affected extremity. * No driving for 24 hours. * NO SMOKING. * Avoid straining for bowel movements for 7 days. * Gentle walking on level ground is allowed. * Returning to work will depend on the type of procedure and the results. Your doctor will discuss this with you. CALL YOUR DOCTOR FOR ANY OF THE FOLLOWING: *If bleeding from the puncture site occurs- Apply gentle pressure to site with clean cloth and call your doctor or EMS. * If a knot or lump forms under the skin, increases in size, or causes pain. * If bruising appears to be worsening or moving further down your leg instead of disappearing. * Temperature above 101 F. CARE OF YOUR GROIN INCISION; * Bruising or purple discoloration of the skin near the puncture site is common. * You may shower only, no bathtub bathing for 5 days. Be careful to avoid slipping as your leg may feel stiff. * If a closure device was used on your femoral artery, please see the attached guide regarding care of the device and your leg. * Leave dressing on FOR 24 hours. CARE OF YOUR WRIST INCISION; * Bruising or purple discoloration of the skin near the puncture site is common. * You may shower. * DO NOT submerge wrist. * Leave dressing on FOR 24 hours. TORY DAVIS MD Nov 25, 2022 10:45
--- NOTE | 2022-11-25 10:52 | Peripheral Report ---
Peripheral Report Physician (s)/Mason Tender (s) Physician TORY HALL MD Pre-Procedure Diagnosis Pre-Procedure Diagnosis: PAD Post-Procedure Note Procedure Start Date: Nov 25, 2022 Name of Procedure: Abdominal aortogram with bilateral lower extremities runoff Second-order Additional imaging Findings/Procedure Note PROCEDURE NOTE: 77-year-old gentleman with peripheral arterial disease, had nonhealing wound in his lower extremity, abnormal SEAMUS bilaterally worse on the right. Scheduled for peripheral angiogram After explaining the procedure to the patient, all pros and cons were explained, all questions were answered. The patient signed the consent and then he was placed on the cardiac catheterization laboratory. The patient was placed on the cardiac catheterization laboratory. Groin was prepped SL fashion local anesthesia was used. Sheath placed in the left femoral artery, I was unable to advance wire through the left common iliac artery. Multiple attempt then I did runoff to the left leg through the sheath then I did DSA imaging at the trifurcation level. A second sheath was placed in the right femoral artery and I proceeded with runoff to the right leg through the sheath then did DSA imaging at the level of the foot then I advanced a pigtail catheter and placed it just above the bifurcation and did angiogram at the level of the bifurcation then I advanced the pigtail catheter up to the abdominal aorta just above the renal artery and did another angiogram at the level of the mid abdominal aorta. At the end of the procedure both sheaths were removed with closure device deploy ed FINDINGS: Abdominal aorta: Infrarenal abdominal aortic aneurysm moderate in size. Both renal arteries are normal, SMA was not well visualized, BALA is normal. Left lower extremity: Left common iliac artery has diffuse atherosclerotic plaque, 1 area of severe stenosis followed by an aneurysm that is moderate in size. Left common femoral artery has mild disease Left SFA has diffuse atherosclerotic disease with multiple area of moderate to severe stenosis at the proximal and mid. Distally there is small aneurysmal dilatation. Trifurcation is normal with mild to moderate disease Right lower extremity: Left common iliac has severe ostial stenosis calcified lesion with moderate diffuse disease Left common femoral artery has mild disease Left SFA has diffuse mild to moderate disease Left anterior tibial, posterior tibial and peroneal artery calcified artery with mild to moderate disease down to the foot CONCLUSIONS: Infrarenal abdominal aortic aneurysm with severe stenosis at the right common iliac artery at the origin and severe stenosis at the left common iliac artery a t the proximal portion followed by aneurysm Moderate to severe diffuse disease at the left SFA with 1 area of aneurysmal dilatation Moderate diffuse disease at the right SFA DISCUSSION AND RECOMMENDATIONS: I will refer him for evaluation with vascular surgery Anesthesia Type: Conscious Sedation Estimated blood loss (mL): 15 ml Contrast Amount: 39 ml Total Radiation Dose: 62 mGy Post-Procedure Diagnosis Post-operative diagnosis: Peripheral arterial disease Hypertension Hyperlipidemia Diabetes mellitus TORY HALL MD Nov 25, 2022 10:52
== END 2022-11-25 15:20 | disposition home or self-care (01) ==
LOC: CATH 07:55 → SDC 11:07 → CATH 15:20
PROVIDERS: ATTEND Internal Medicine Cardiovascular Disease
DX: I71.43 Infrarenal abdominal aortic aneurysm, without rupture (principal); I70.201 Unspecified atherosclerosis of native arteries of extremities, right leg; I72.3 Aneurysm of iliac artery; I11.0 Hypertensive heart disease with heart failure; I50.23 Acute on chronic systolic (congestive) heart failure; I35.8 Other nonrheumatic aortic valve disorders; I42.8 Other cardiomyopathies; I25.10 Atherosclerotic heart disease of native coronary artery without angina pectoris; I65.23 Occlusion and stenosis of bilateral carotid arteries; E78.5 Hyperlipidemia, unspecified; E11.51 Type 2 diabetes mellitus with diabetic peripheral angiopathy without gangrene; E78.2 Mixed hyperlipidemia; E03.9 Hypothyroidism, unspecified; E05.90 Thyrotoxicosis, unspecified without thyrotoxic crisis or storm; F17.210 Nicotine dependence, cigarettes, uncomplicated; Z90.49 Acquired absence of other specified parts of digestive tract; Z86.19 Personal history of other infectious and parasitic diseases; Z98.890 Other specified postprocedural states; Z79.890 Hormone replacement therapy; Z79.899 Other long term (current) drug therapy
CPT/HCPCS: 36246; 36248; 71045; 75630; 80053; 80061; 85027; 85610; 85730; 87081; 93005; C1760; C1769; C1887 ×2; C1894; C8929; 36415; 93306

== ENCOUNTER → 2022-12-09 | Outpatient (CLI) | payer MEDICARE, OTHER ==
[~2022-12-09] MED LIST changes: +AMT10T PO; +CHOL200052 PO; +GABA-486 PO; +LEVO150C4 PO; +MULT-974 PO; +NALO4SPR3 NS; +SPIR50TA4 PO; +TERB250T88 PO; +TIZA4CAP8 PO; +morphine er PO
== END ==
LOC: WOUNDCARE 09:51
PROVIDERS: ATTEND Family Medicine
DX: L97.212 Non-pressure chronic ulcer of right calf with fat layer exposed (principal); I70.232 Atherosclerosis of native arteries of right leg with ulceration of calf; I87.331 Chronic venous hypertension (idiopathic) with ulcer and inflammation of right lower extremity; I89.0 Lymphedema, not elsewhere classified; T65.292A Toxic effect of other tobacco and nicotine, intentional self-harm, initial encounter; D46.4 Refractory anemia, unspecified; N18.30 Chronic kidney disease, stage 3 unspecified; R54 Age-related physical debility; M05.69 Rheumatoid arthritis of multiple sites with involvement of other organs and systems; Z91.198 Patient's noncompliance with other medical treatment and regimen for other reason; I96 Gangrene, not elsewhere classified
CPT/HCPCS: 11042; 11045; A6197; G0463

== ENCOUNTER → 2022-12-16 | Outpatient (CLI) | payer MEDICARE, OTHER | LOC: WOUNDCARE 09:49 | PROVIDERS: ATTEND Family Medicine | DX: L97.212 Non-pressure chronic ulcer of right calf with fat layer exposed (principal); I70.232 Atherosclerosis of native arteries of right leg with ulceration of calf; I87.331 Chronic venous hypertension (idiopathic) with ulcer and inflammation of right lower extremity; I89.0 Lymphedema, not elsewhere classified; T65.292A Toxic effect of other tobacco and nicotine, intentional self-harm, initial encounter; D46.4 Refractory anemia, unspecified; N18.30 Chronic kidney disease, stage 3 unspecified; D63.1 Anemia in chronic kidney disease; R54 Age-related physical debility; M05.69 Rheumatoid arthritis of multiple sites with involvement of other organs and systems; Z91.198 Patient's noncompliance with other medical treatment and regimen for other reason; I96 Gangrene, not elsewhere classified | CPT/HCPCS: 11042; 11045; G0463 ==

== ENCOUNTER → 2022-12-22 | Outpatient (CLI) | payer MEDICARE, OTHER | LOC: WOUNDCARE 09:58 | PROVIDERS: ATTEND Family Medicine | DX: L97.212 Non-pressure chronic ulcer of right calf with fat layer exposed (principal); I70.232 Atherosclerosis of native arteries of right leg with ulceration of calf; I87.331 Chronic venous hypertension (idiopathic) with ulcer and inflammation of right lower extremity; I89.0 Lymphedema, not elsewhere classified; T65.292A Toxic effect of other tobacco and nicotine, intentional self-harm, initial encounter; D46.4 Refractory anemia, unspecified; R54 Age-related physical debility; M05.69 Rheumatoid arthritis of multiple sites with involvement of other organs and systems; Z91.198 Patient's noncompliance with other medical treatment and regimen for other reason; I96 Gangrene, not elsewhere classified | CPT/HCPCS: 11042; 11045; G0463 ==

== ENCOUNTER → 2022-12-30 | Outpatient (CLI) | payer MEDICARE, OTHER | LOC: WOUNDCARE 09:49 | PROVIDERS: ATTEND Family Medicine | DX: L97.212 Non-pressure chronic ulcer of right calf with fat layer exposed (principal); I70.242 Atherosclerosis of native arteries of left leg with ulceration of calf; I87.331 Chronic venous hypertension (idiopathic) with ulcer and inflammation of right lower extremity; I89.0 Lymphedema, not elsewhere classified; T65.222A Toxic effect of tobacco cigarettes, intentional self-harm, initial encounter; D46.4 Refractory anemia, unspecified; N18.30 Chronic kidney disease, stage 3 unspecified; R54 Age-related physical debility; M05.69 Rheumatoid arthritis of multiple sites with involvement of other organs and systems; Z91.198 Patient's noncompliance with other medical treatment and regimen for other reason; I96 Gangrene, not elsewhere classified | CPT/HCPCS: 11042; 11045; 87070; 87077; 87205; G0463; 87186 ==

== ENCOUNTER → 2023-01-13 | Outpatient (CLI) | payer MEDICARE, OTHER | LOC: WOUNDCARE 09:51 | PROVIDERS: ATTEND Family Medicine | DX: L97.212 Non-pressure chronic ulcer of right calf with fat layer exposed (principal); I70.239 Atherosclerosis of native arteries of right leg with ulceration of unspecified site; I87.331 Chronic venous hypertension (idiopathic) with ulcer and inflammation of right lower extremity; I89.0 Lymphedema, not elsewhere classified; T65.222A Toxic effect of tobacco cigarettes, intentional self-harm, initial encounter; D46.4 Refractory anemia, unspecified; N18.30 Chronic kidney disease, stage 3 unspecified; R54 Age-related physical debility; M05.69 Rheumatoid arthritis of multiple sites with involvement of other organs and systems; Z91.198 Patient's noncompliance with other medical treatment and regimen for other reason; I96 Gangrene, not elsewhere classified | CPT/HCPCS: 11042; 11045; G0463 ==

== ENCOUNTER 2023-01-21 17:38 | Inpatient (IN) | payer MEDICARE, OTHER ==
[~2023-01-21] VITALS: Ht 165 cm; Wt 62.9 kg
[2023-01-21] MEDS ORDERED: ONDANSETRON 4 MG/2 ML (SDV) Z0FRAN IVP ONE (18:00)
[2023-01-21] MEDS ORDERED: RT-ALBUTEROL SULF 2.5 MG/3 ML PRE-MIX VIAL INH STA (18:10)
--- NOTE | 2023-01-21 18:12 | ED General ---
General Chief Complaint: Abdominal/GI Problems Stated Complaint: NAUSEA Nursing Triage Note: pt brought in by [facility] from home with complaint of nausea,not feeling well. states has been going on for aweek. Source of Information: Patient, EMS Exam Limitations: No Limitations (DENIS SUMMERS MD) History of Present Illness Date Seen by Provider: January 21, 2023 Time Seen by Provider: 17:43 Initial Comments This 77-year-old gentleman presents to the emergency room via EMS with primary complaints of weakness, myalgia, and nausea. He is anxious to get medicated for his nausea as he feels that vomiting is eminent. He denies any fever or shortness of breath but generally has felt ill for several days. He has a chronic wound on the anterior surface of his right lower leg for which she receives wound care visits in the home on Mondays and Wednesdays and in the clinic on Fridays. He missed Fridays visit because he was already feeling so poorly at that time. He is afebrile on assessment but has hypoxia with oxygen saturations dipping into the lower 80s. He does not feel particularly short of breath and denies cough. He has history of rheumatoid arthritis with profound disfigurement of the fingers. He also has ulcerative colitis and has required surgical intervention for that in the past. He is not currently receiving active treatment for either of these conditions. EMS reports vital signs are otherwise unremarkable. Patient is alert and oriented. Mucous membranes appear dry. (DENIS SUMMERS MD) Allergies and Home Medications Allergies Coded Allergies: Sulfa (Sulfonamide Antibiotics) (Verified Allergy, Mild, GI UPSET, 08/11/17) Patient Home Medication List Home Medication List Reviewed: Yes (DENIS SUMMERS MD) Amitriptyline HCl (Amitriptyline HCl) 10 Mg Tablet, 10 MG PO HS, (Reported) Entered as Reported by: ANANDA WIGGINS on 11/25/22 0918 Aspirin (Aspirin) 81 Mg Tab.chew, 81 MG PO DAILY, (Reported) Entered as Reported by: SUSAN AC on 06/20/17 1442 Budesonide/Formoterol Fumarate (Symbicort 160-4.5 Mcg Inhaler) 10.2 Gm Hfa.aer.ad, 2 PUFF IH BID, (Reported) Entered as Reported by: MIKKI MIMS on 06/22/17 0802 Cholecalciferol (Vitamin D3) (Vitamin D3) 50 Mcg (2000 Unit) Tablet, 50 MCG PO DAILY, (Reported) Entered as Reported by: ANANDA WIGGINS on 11/25/22917 Gabapentin (Gabapentin) 100 Mg Capsule, 100 MG PO Q8H, (Reported) Entered as Reported by: ANANDA WGIGINS on 11/25/22917 Hydrochlorothiazide (Hydrochlorothiazide) 25 Mg Tablet, 25 MG PO DAILY, (Reported) Entered as Reported by: ANANDA WIGGINS on 11/25/22917 Ipratropium/Albuterol Sulfate (Iprat-Albut 0.5-3(2.5) mg/3 ml) 3 Ml Ampul.neb, 3 ML IH Q6H PRN for SHORTNESS OF BREATH, (Reported) Entered as Reported by: MARA MEDELLIN on 11/29/16 1025 Levothyroxine Sodium (Levothyroxine) 150 Mcg Capsule, 150 MCG PO, (Reported) Entered as Reported by: ANANDA WIGGINS on 11/25/22917 Multivitamin (Multi-Vitamin Daily) 1 Each Tablet, 1 EACH PO DAILY, (Reported) Entered as Reported by: ANANDA WIGGINS on 11/25/22917 Naloxone HCl (Naloxone HCl) 4 Mg/Actuation [place], 4 MG NS, (Reported) Entered as Reported by: ANANDA WIGGINS on 11/25/22917 Oxycodone HCl/Acetaminophen (Oxycodone-Acetaminophen 10-325) 1 Each Tablet, 1 TAB PO Q4H PRN for PAIN-MODERATE, (Reported) Entered as Reported by: SUSAN AC on 06/20/17 1442 Spironolactone (Spironolactone) 50 Mg Tablet, 50 MG PO DAILY, (Reported) Entered as Reported by: ANANDA WIGGINS on 11/25/22917 Terbinafine HCl (Terbinafine HCl) 250 Mg Tablet, 250 MG PO DAILY, (Reported) Entered as Reported by: ANANDA WIGGINS on 11/25/22917 Tizanidine HCl (Tizanidine HCl) 4 Mg Capsule, 4 MG PO BID, (Reported) Entered as Reported by: ANANDA WIGGINS on 11/25/22917 [morphine er] , 15 MG PO TID, (Reported) Entered as Reported by: ANANDA WIGGINS on 11/25/22 0918 Review of Systems Review of Systems Constitutional: see HPI, malaise, weakness EENTM: see HPI, other (Dry mucous membranes) Respiratory: no symptoms reported Cardiovascular: no symptoms reported Gastrointestinal: see HPI Genitourinary: no symptoms reported Skin: see HPI Psychiatric/Neurological: No Symptoms Reported Hematologic/Lymphatic: No Symptoms Reported Immunological/Allergic: no symptoms reported (DENSI SUMMERS MD) Past Apyhuxw-Evisdu-Ipjmfy Hx Patient Social History Tobacco Use?: Yes Tobacco type used: Cigarettes Smoking Status: Current Everyday Smoker Use of E-Cig and/or Vaping dev: No Substance use?: No Alcohol Use?: No Pt feels they are or have been: No (DENIS SUMMERS MD) Immunizations Up To Date Tetanus Booster (TDap): Unknown First/Initial COVID19 Vaccinat: DECLINED Second COVID19 Vaccination Kalen: DECLINED Third COVID19 Vaccination Date: DECLINED (DENIS SUMMERS MD) Seasonal Allergies Seasonal Allergies: Yes (DENIS SUMMERS MD) Past Medical History Surgeries: Yes (L KNEE REPLACEMENT, L WRIST, ANGIOPLASTY, colon resection with colostomy) Abdominal, Cardiac, Orthopedic Respiratory: Yes Chronic Bronchitis, COPD, Emphysema Currently Using CPAP: No Currently Using BIPAP: No Cardiac: Yes ( PULMONARY HTN) Chronic Edema/Swelling, Coronary Artery Disease, High Cholesterol, Hypertension, Peripheral Vascular Neurological: No Reproductive Disorders: No Sexually Transmitted Disease: Yes HIV/AIDS: No Genitourinary: No Kidney Stones, Renal Failure Gastrointestinal: Yes (colostomy) Colitis, Gastroesophageal Reflux, Hemorrhoids Musculoskeletal: Yes (BILATERAL OLECRANON BURSITIS) Osteoporosis, Arthritis, Rheumatoid Arthritis Endocrine: Yes Hypothyroidsim HEENT: Yes (GLASSES, DENTURES) Loss of Vision: Bilateral Hearing Impairment: Denies Cancer: No Psychosocial: Yes Anxiety Integumentary: Yes (HX LEG WOUNDS) Eczema, Psoriasis Blood Disorders: Yes (HX ANEMIA) Adverse Reaction/Blood Tranf: No (HAS HAD BLOOD WITH NO REACTION) (DENIS SUMMERS MD) Family Medical History Patient reports no known family medical history. No Pertinent Family Hx, Diabetes (DENIS SUMMERS MD) Physical Exam Vital Signs Vital Signs - First Documented 01/21/23 01/21/23 17:41 18:35 Temp 36.8 Pulse 88 Resp 16 B/P (MAP) 113/71 (85) Pulse Ox 92 O2 Delivery Room Air O2 Flow Rate 2.00 (DEAN LEWIS MD) Vital Signs Capillary Refill : Less Than 3 Seconds (DENIS SUMMERS MD) Height, Weight, BMI Height: 5'9.00" Weight: 142lbs. 8.0oz. 64.935520di; 24.00 BMI Method:Estimated General Appearance: WD/WN, Mild Distress HEENT: PERRL/EOMI, Normal ENT Inspection, Other (Mucous membranes dry) Neck: Normal Inspection; No JVD Respiratory: No Accessory Muscle Use, No Respiratory Distress, Decreased Breath Sounds, Wheezing (Minimal) Cardiovascular: No Edema, No Murmur, Irregularly Irregular Gastrointestinal: Soft; No Distended; Tenderness (Mild in the left mid abdomen) Extremity: No Pedal Edema, Other (Dressing on the right lower extremity was lifted and there are moist wounds with thick green purulent drainage on the dressing) Neurologic/Psychiatric: Alert, Oriented x3, Normal Mood/Affect Skin: Normal Color, Warm/Dry, Other (Chronic wound as above) (DENIS SUMMERS MD) Procedures/Interventions Date of ETT Placement: Nov 10, 2016 Time of ETT Placement: 2219 (DENIS SUMMERS MD) Progress/Results/Core Measures Suspected Sepsis SIRS Temperature: Pulse: 88 Respiratory Rate: 16 Blood Pressure 113 /71 Mean: 85 (DENIS SUMMERS MD) Results/Orders Lab Results Laboratory Tests Test 01/21/23 18:20 01/21/23 19:15 01/21/23 20:00 Range/Units White Blood Count 6.2 4.3-11.0 10^3/uL Red Blood Count 4.44 4.30-5.52 10^6/uL Hemoglobin 11.1 L 13.3-17.7 g/dL Hematocrit 35 L 40-54 % Mean Corpuscular Volume 80 80-99 fL Mean Corpuscular Hemoglobin 25 25-34 pg Mean Corpuscular Hemoglobin Concent 31 L 32-36 g/dL Red Cell Distribution Width 17.5 H 10.0-14.5 % Platelet Count 252 130-400 10^3/uL Mean Platelet Volume 9.2 9.0-12.2 fL Immature Granulocyte % (Auto) 0 % Neutrophils (%) (Auto) 50 42-75 % Lymphocytes (%) (Auto) 37 12-44 % Monocytes (%) (Auto) 11 0-12 % Eosinophils (%) (Auto) 2 0-10 % Basophils (%) (Auto) 1 0-10 % Neutrophils # (Auto) 3.1 1.8-7.8 10^3/uL Lymphocytes # (Auto) 2.3 1.0-4.0 10^3/uL Monocytes # (Auto) 0.7 0.0-1.0 10^3/uL Eosinophils # (Auto) 0.1 0.0-0.3 10^3/uL Basophils # (Auto) 0.0 0.0-0.1 10^3/uL Immature Granulocyte # (Auto) 0.0 0.0-0.1 10^3/uL Sodium Level 136 135-145 MMOL/L Potassium Level 5.4 H 3.6-5.0 MMOL/L Chloride Level 101 98-107 MMOL/L Carbon Dioxide Level 22 21-32 MMOL/L Anion Gap 13 5-14 MMOL/L Blood Urea Nitrogen 27 H 7-18 MG/DL Creatinine 1.86 H 0.60-1.30 MG/DL Estimat Glomerular Filtration Rate 37 BUN/Creatinine Ratio 15 Glucose Level 79 70-105 MG/DL Calcium Level 8.7 8.5-10.1 MG/DL Corrected Calcium 9.3 8.5-10.1 MG/DL Magnesium Level 2.0 1.6-2.4 MG/DL Total Bilirubin 0.2 0.1-1.0 MG/DL Aspartate Amino Transf (AST/SGOT) 21 5-34 U/L Alanine Aminotransferase (ALT/SGPT) 7 0-55 U/L Alkaline Phosphatase 61 40-136 U/L C-Reactive Protein High Sensitivity 6.53 H 0.00-0.50 MG/DL Total Protein 6.9 6.4-8.2 GM/DL Albumin 3.3 3.2-4.5 GM/DL Lipase 16 8-78 U/L Free Thyroxine 0.42 L 0.70-1.48 NG/DL TSH [place] Testing 36.08 H 0.35-4.94 UIU/ML Influenza Type A (RT-PCR) Not Detected Not Detecte Influenza Type B (RT-PCR) Not Detected Not Detecte SARS-CoV-2 RNA (RT-PCR) Detected H Not Detecte Urine Color YELLOW Urine Clarity CLEAR Urine pH 6.0 5-9 Urine Specific Delta 1.015 L 1.016-1.022 Urine Protein NEGATIVE NEGATIVE Urine Glucose (UA) NEGATIVE NEGATIVE Urine Ketones NEGATIVE NEGATIVE Urine Nitrite NEGATIVE NEGATIVE Urine Bilirubin NEGATIVE NEGATIVE Urine Urobilinogen 0.2 < = 1.0 MG/DL Urine Leukocyte Esterase NEGATIVE NEGATIVE Urine RBC (Auto) NEGATIVE NEGATIVE Urine RBC 0-2 /HPF Urine WBC 2-5 /HPF Urine Crystals PRESENT H /LPF Urine Amorphous Sediment RARE SHAUN URATES H /LPF Urine Bacteria NEGATIVE /HPF Urine Casts PRESENT /LPF Urine Hyaline Casts 2-5 H /LPF Urine Mucus SMALL H /LPF Urine Culture Indicated NO (DEAN LEWIS MD) My Orders Orders - DEAN LEWIS MD Influenza A And B By Pcr (01/21/23 18:10) Ekg Tracing (01/21/23 18:10) Covid 19 Inhouse Test (01/21/23 18:10) Thyroid Analyzer (01/21/23 18:10) Albuterol Pre-Mix Nebs (Rt) (Proventil (01/21/23 18:10) Svn Small Volume Nebulizer (01/21/23 18:10) Lipase (01/21/23 18:10) Free T4 (Free Thyroxine) (01/21/23 18:20) O2 (01/21/23 19:18) Ed Iv/Invasive Line Start (01/21/23 19:51) Ns Iv 1000 Ml (Sodium Chloride 0.9%) (01/21/23 20:00) Morphine Injection (Morphine Injection (01/21/23 20:20) Morphine Immediate Release Tab (Morphine (01/21/23 22:30) Levothyroxine Tablet (Synthroid Tablet) (01/21/23 22:45) Code/Resuscitation (01/21/23 22:57) (DEAN LEWIS MD) Medications Given in ED Current Medications Medications Dose Ordered Sig/Janeth Route Start Time Stop Time Status Last Admin Dose Admin Levothyroxine Sodium 150 mcg ONCE ONCE PO 01/21/23 22:45 01/21/23 22:46 DC 01/21/23 22:55 150 MCG Ondansetron HCl 8 mg ONCE ONCE IVP 01/21/23 18:00 01/21/23 18:01 DC 01/21/23 18:06 8 MG Sodium Chloride 1,000 ml @ 0 mls/hr Q0M ONCE IV 01/21/23 20:00 01/21/23 20:01 DC 01/21/23 19:58 999 MLS/HR (DEAN LEWIS MD) Vital Signs/I&O 01/21/23 01/21/23 01/21/23 17:41 18:35 19:00 Temp 36.8 Pulse 88 Resp 16 B/P (MAP) 113/71 (85) Pulse Ox 92 95 O2 Delivery Room Air Nasal Cannula Nasal Cannula O2 Flow Rate 2.00 2.00 (DEAN LEWIS MD) Vital Signs/I&O Capillary Refill : Less Than 3 Seconds (DENIS SUMMERS MD) Blood Pressure Mean: 85 Progress Note : Time: 18:15 Progress Note Patient was interviewed and examined shortly after arrival. Report was received from EMS. Nasal cannula oxygen was applied which improved his oxygen saturation to the mid 90s. Zofran has been ordered for treatment of nausea. Patient has history of COPD and does not typically require oxygen. We will administer albuterol treatments to try to improve his respiratory status. Labs are pending at this time. Clinical history was reviewed with Dr. LEWIS and care was transitioned to him at this time for shift change. (DENIS SUMMERS MD) Departure Impression Primary Impression: COVID-19 virus infection Additional Impressions: Acute renal insufficiency Nausea and vomiting Qualified Codes: R11.2 - Nausea with vomiting, unspecified Dehydration Chronic wound of extremity Disposition: ADMITTED INPATIENT Condition: Stable Admissions Decision to Admit Reason: Admit from ER (General) Decision to Admit/Date: January 21, 2023 Time/Decision to Admit Time: 22:39 (DEAN LEWIS MD) Departure-Patient Inst. Referrals: ZUHAIR JOE MD (PCP/Family) Primary Care Physician DENIS SUMMERS MD January 21, 2023 18:12 DEAN LEWIS MD January 21, 2023 23:21
[2023-01-21 18:29] LABS: BASOPHILS % (AUTO) 1 % (0-10); EOSINOPHILS # (AUTO) 0.1 10^3/uL (0.0-0.3); EOSINOPHILS % (AUTO) 2 % (0-10); HEMATOCRIT 35 % (40-54); HEMOGLOBIN 11.1 g/dL (13.3-17.7); LYMPHOCYTES # (AUTO) 2.3 10^3/uL (1.0-4.0); LYMPHOCYTES % (AUTO) 37 % (12-44); MEAN CORPUSCULAR HEMOGLOBIN 25 pg (25-34); MEAN CORPUSCULAR HGB CONC 31 g/dL (32-36); MEAN CORPUSCULAR VOLUME 80 fL (80-99); MEAN PLATELET VOLUME 9.2 fL (9.0-12.2); MONOCYTES # (AUTO) 0.7 10^3/uL (0.0-1.0); MONOCYTES % (AUTO) 11 % (0-12); NEUTROPHILS # (AUTO) 3.1 10^3/uL (1.8-7.8); NEUTROPHILS % (AUTO) 50 % (42-75); PLATELET COUNT 252 10^3/uL (130-400); WHITE BLOOD COUNT 6.2 10^3/uL (4.3-11.0)
[2023-01-21 18:41] LABS: ALBUMIN 3.3 GM/DL (3.2-4.5); POTASSIUM 5.4 MMOL/L (3.6-5.0)
[2023-01-21 18:43] LABS: CALCIUM 8.7 MG/DL (8.5-10.1)
[2023-01-21 18:44] LABS: TOTAL PROTEIN 6.9 GM/DL (6.4-8.2)
[2023-01-21 18:46] LABS: BILIRUBIN,TOTAL 0.2 MG/DL (0.1-1.0)
[2023-01-21 18:47] LABS: CREATININE SERUM 1.86 MG/DL (0.60-1.30)
[2023-01-21 19:11] LABS: TSH (THYROID ANALYZER) 36.08 UIU/ML (0.35-4.94)
[2023-01-21] MEDS ORDERED: NS IV 1000 ML 1,000 ML IV ONE (20:00)
[2023-01-21 20:05] LABS: FREE T4 (FREE THYROXINE) 0.42 NG/DL (0.70-1.48)
[2023-01-21] MEDS ORDERED: morphine INJ 10 MG/ML 1ML (SYR OR VIAL) IVP STA (20:20)
[2023-01-21 20:55] LABS: BILIRUBIN,URINE NEGATIVE (NEGATIVE); CLARITY,URINE CLEAR; COLOR,URINE YELLOW; GLUCOSE, URINE (UA) NEGATIVE (NEGATIVE); KETONES,URINE NEGATIVE (NEGATIVE); LEUKOCYTE ESTERASE ,URINE NEGATIVE (NEGATIVE); NITRITE,URINE NEGATIVE (NEGATIVE); PROTEIN,URINE NEGATIVE (NEGATIVE)
[2023-01-21 21:22] LABS: AMORPHOUS SEDIMENT,UR RARE AMOR URATES /LPF; BACTERIA,URINE NEGATIVE /HPF; RBC,URINE 0-2 /HPF
[2023-01-21] MEDS ORDERED: morphine IMMEDIATE RELEASE 15 MG TABLET PO SCH (22:30)
[2023-01-21] MEDS ORDERED: LEVOTHYROXINE 150 MCG (LEVOTHROID) TAB PO ONE (22:45)
[2023-01-22] VITALS (7 sets, daily range): BP systolic 103–125; BP diastolic 56–80
[2023-01-22] MEDS ORDERED: oxyCODONE/APAP 10/325MG (PERCOCET 10) TABLET PO PRN (01:45)
[2023-01-22] MEDS ORDERED: NS IV 1000 ML 1,000 ML IV SCH (01:45)
[2023-01-22] MEDS: LEVOTHYROXINE 150 MCG (LEVOTHROID) TAB PO SCH (06:36)
[2023-01-22 09:09] LABS: BASOPHILS % (AUTO) 0 % (0-10); EOSINOPHILS # (AUTO) 0.1 10^3/uL (0.0-0.3); EOSINOPHILS % (AUTO) 2 % (0-10); HEMATOCRIT 34 % (40-54); HEMOGLOBIN 10.8 g/dL (13.3-17.7); LYMPHOCYTES # (AUTO) 2.5 10^3/uL (1.0-4.0); LYMPHOCYTES % (AUTO) 41 % (12-44); MEAN CORPUSCULAR HEMOGLOBIN 25 pg (25-34); MEAN CORPUSCULAR HGB CONC 32 g/dL (32-36); MEAN CORPUSCULAR VOLUME 79 fL (80-99); MEAN PLATELET VOLUME 9.2 fL (9.0-12.2); MONOCYTES # (AUTO) 0.5 10^3/uL (0.0-1.0); MONOCYTES % (AUTO) 8 % (0-12); NEUTROPHILS % (AUTO) 48 % (42-75); PLATELET COUNT 236 10^3/uL (130-400); WHITE BLOOD COUNT 6.1 10^3/uL (4.3-11.0)
[2023-01-22 09:29] LABS: POTASSIUM 5.1 MMOL/L (3.6-5.0)
[2023-01-22 09:31] LABS: CALCIUM 8.2 MG/DL (8.5-10.1)
[2023-01-22 09:35] LABS: CREATININE SERUM 1.53 MG/DL (0.60-1.30)
[2023-01-22] MEDS: morphine IMMEDIATE RELEASE 15 MG TABLET PO SCH ×3 (10:16→21:04)
--- NOTE | 2023-01-22 11:24 | History & Physical-Hospitalist ---
History of Present Illness HPI/Chief Complaint Patient is [age]-year-old male with past medical history of COPD rheumatoid arthritis hypertension coronary artery disease who presented to the emergency department with a weeklong history of myalgias and overall malaise. When asked how he is feeling he states "I am fucked." When asked to elaborate he was unable to and just use further explicit to describe his generalized issues. He denies any shortness of breath or cough but he does endorse a history of lung disease though he is unsure if he has asthma or COPD. Review of records indicates he does have COPD. In the ER a COVID swab was done and was f ound to be positive. He reports he is unvaccinated for this and has not had a previous infection. When asked pointedly he does complain of muscle aches and nausea and indicates symptoms started about 1 week ago. We discussed natural course of COVID and how patients typically tend to get worse before they get better around day 7-10. When asked if I could do anything for him he stated "shoot me." He denies wearing oxygen at baseline and is currently on 3 L/min. He has no other specific complaints at this time. Date Seen 01/22/23 Time Seen by a Provider: 11:17 Attending Physician Ramy Ely MD PCP Admitting Physician: Nolberto Parsons MD Attending Physician: Nolberto Parsons MD Referring Physician Date of Admission January 22, 2023 at 12:28 am Home Medications & Allergies Home Medications Reviewed patient Home Medication Reconciliation performed by pharmacy medication reconciliations animal husbandry technician and/or nursing. Patients Allergies have been reviewed. Allergies Allergies Coded Allergies Sulfa (Sulfonamide Antibiotics) (Verified Allergy, Mild, GI UPSET, 08/11/17) Past Lgxhmrj-Qjxiin-Ljmyaw Hx Patient Social History Employed/Student: retired Tobacco Use?: Yes Tobacco type used: Cigarettes Smoking Status: Current Everyday Smoker Use of E-Cig and/or Vaping dev: No Substance use?: No Alcohol Use?: No Pt feels they are or have been: No Immunizations Up To Date First/Initial COVID19 Vaccinat: Never had Second COVID19 Vaccination [place]: Never had Tetanus Booster (TDap): More Than 5 Years Hepatitis A: No Hepatitis B: No Date of Pneumonia Vaccine: Aug 08, 2015 Seasonal Allergies Seasonal Allergies: Yes Current Status Advance Directives: Yes Advance Directive Location: Home Communicates: Verbally Primary Language: [place] Preferred Spoken Language: [place] Is interpretation needed?: No Past Medical History Surgeries: Abdominal, Cardiac, Orthopedic Chronic Bronchitis, COPD, Emphysema Currently Using CPAP: No Currently Using BIPAP: No Chronic Edema/Swelling, Coronary Artery Disease, High Cholesterol, Hypertension, Peripheral Vascular Sexually Transmitted Disease: Yes HIV/AIDS: No Kidney Stones, Renal Failure Colitis, Gastroesophageal Reflux, Hemorrhoids Osteoporosis, Arthritis, Rheumatoid Arthritis Hypothyroidsim Loss of Vision: Bilateral Hearing Impairment: Denies Anxiety Eczema, Psoriasis Blood Disorders: Yes (HX ANEMIA) Adverse Reaction/Blood Tranf: No (HAS HAD BLOOD WITH NO REACTION) Family Medical History Patient reports no known family medical history. No Pertinent Family Hx, Diabetes Review of Systems Constitutional: see HPI Physical Exam Physical Exam Vital Signs Vital Signs - First Documented 01/21/23 01/21/23 17:41 18:35 Temp 36.8 Pulse 88 Resp 16 B/P (MAP) 113/71 (85) Pulse Ox 92 O2 Delivery Room Air O2 Flow Rate 2.00 Capillary Refill : Less Than 3 Seconds Height, Weight, BMI Height: 5'9.00" Weight: 142lbs. 8.0oz. 64.532838tc; 25.05 BMI Method:Estimated Results Results/Procedures Labs Laboratory Tests 01/21/23 18:20 01/22/23 09:04 Patient resulted labs reviewed. Assessment/Plan Admission Diagnosis COVID19 Admission Status: Inpatient Order (span 2 midnights) Reason for Inpatient Admission: see below Assessment and Plan Acute hypoxic respiratory failure COVID19 ?COPD High risk for worsening given timeframe (1 week from symptoms), chronic medical conditions, and unvaccinated status Currently requiring 3lpm but does not normally wear oxygen Start Decadron Get CXR MAT protocol Likely has COPD but he was unsure of diagnosis has 60pack year history of smoking He is unsure if he is on any immunesuppressants for his RA (I do not see any on med rec but previously was on methotrexate in 2019) Add continuous pulse ox АНДРЕЙ on CKD Hyperkalemia Baseline creatinine 1.4 and 1.8 on arrival IVF Trend, improved this AM K better as well- downto 5.1 this AM Hypoglycemia Change fluids to D% 1/2 NS as creatinine nearly back to baseline Chronic wound Follows with wound care Continue dressing changes and consult them in AM Resume Doxy from home HTN CAD BP well controlled so hold home meds RA Continue home pain meds PT/OT DVT ppx: NOLBERTO Han MD January 22, 2023 11:24 am
--- NOTE | 2023-01-22 11:55 | Diagnostic Imaging Report ---
INDICATION: COVID positive COMPARISON: 11/25/2022 TECHNIQUE: Single radiograph of the chest dated 01/22/2023. FINDINGS: The cardiac silhouette is mildly enlarged, though stable. Pulmonary vasculature appears unchanged. The lungs are again noted be hyperexpanded with flattening of the diaphragm. Background chronic interstitial lung changes are again seen. Focal opacity within the left mid and upper lung is again identified, appearing more prominent than the prior examination. Increasing interstitial opacities are also seen within the right lung base. No large-volume pleural effusion. No pneumothorax. Osseous structures again demonstrate chronic left-sided rib fractures without new acute osseous abnormality. IMPRESSION: Worsening opacities within the left mid and upper lung. This may relate to a worsening infectious infiltrate. Alternatively, this could relate to worsening pleural fluid. Mass lesion felt less likely but not completely excluded. Nonemergent dedicated CT of the chest is recommended for further evaluation. Background chronic interstitial lung changes with background chronic obstructive pulmonary disease with slightly worsening infiltrate versus scarring within the right lung base. Additional stable findings as above. Dictated by: Dictated on workstation # [id number]
[2023-01-22] MEDS ORDERED: PANTOPRAZOLE 40 MG (PROTONIX) TAB PO NR (12:00)
[2023-01-22] MEDS: D5 1/2 NS 1000 ML IV SOLUTION 1,000 ML IV SCH (13:29)
[2023-01-22] MEDS: dexAMETHasone 6 MG TAB (DECADRON) PO SCH (13:30)
[2023-01-22] MEDS: DOXYCYCLINE 100 MG (VIBRAMYCIN) TABLET PO SCH ×2 (13:30→17:55)
[2023-01-22] MEDS: ENOXAPARIN 40 MG/0.4 ML (LOVENOX) SYR SQ SCH (13:30)
[2023-01-22] MEDS: CEFEPIME INJECTION 1,000 MG in NS (IVPB) 50 ML IV SCH ×2 (17:55→23:45)
[2023-01-22] MEDS ORDERED: RT-ALBUTEROL HFA 8.5 GM INHALER IH PRN (18:45)
[2023-01-22] MEDS: LORazepam 0.5 MG (ATIVAN) TABLET PO PRN (21:04)
[2023-01-22] MEDS: GABAPENTIN 100 MG (NEURONTIN) CAP PO SCH (21:04)
[2023-01-22] MEDS: RT-ALBUTEROL HFA 8.5 GM INHALER IH SCH (21:35)
[2023-01-23] MEDS: RT-ALBUTEROL HFA 8.5 GM INHALER IH SCH ×6 (02:39→21:22)
[2023-01-23 04:59] VITALS: BP 133/61
[2023-01-23] MEDS: CEFEPIME INJECTION 1,000 MG in NS (IVPB) 50 ML IV SCH ×3 (05:47→23:20)
[2023-01-23] MEDS: dexAMETHasone 6 MG TAB (DECADRON) PO SCH (05:47)
[2023-01-23] MEDS: LEVOTHYROXINE 150 MCG (LEVOTHROID) TAB PO SCH (05:47)
[2023-01-23] MEDS: DOXYCYCLINE 100 MG (VIBRAMYCIN) TABLET PO SCH ×2 (05:47→18:09)
[2023-01-23] MEDS: D5 1/2 NS 1000 ML IV SOLUTION 1,000 ML IV SCH (05:48)
[2023-01-23 05:59] LABS: HEMATOCRIT 36 % (40-54); HEMOGLOBIN 11.2 g/dL (13.3-17.7); MEAN CORPUSCULAR HEMOGLOBIN 25 pg (25-34); MEAN CORPUSCULAR HGB CONC 31 g/dL (32-36); MEAN CORPUSCULAR VOLUME 79 fL (80-99); MEAN PLATELET VOLUME 9.9 fL (9.0-12.2); PLATELET COUNT 260 10^3/uL (130-400); WHITE BLOOD COUNT 2.6 10^3/uL (4.3-11.0)
[2023-01-23 06:38] LABS: CALCIUM 8.2 MG/DL (8.5-10.1); CREATININE SERUM 1.38 MG/DL (0.60-1.30); POTASSIUM 5.1 MMOL/L (3.6-5.0)
[2023-01-23 08:27] VITALS: BP 132/69
[2023-01-23] MEDS: morphine IMMEDIATE RELEASE 15 MG TABLET PO SCH ×3 (09:20→20:42)
[2023-01-23] MEDS: GABAPENTIN 100 MG (NEURONTIN) CAP PO SCH ×2 (09:20→20:41)
[2023-01-23] MEDS: PANTOPRAZOLE 40 MG (PROTONIX) TAB PO SCH (09:20)
[2023-01-23] MEDS: LORazepam 0.5 MG (ATIVAN) TABLET PO PRN (09:20)
[2023-01-23] MEDS: ONDANSETRON 4 MG/2 ML (SDV) Z0FRAN IV PRN (09:21)
[2023-01-23 12:28] VITALS: BP 140/72
[2023-01-23] MEDS: ENOXAPARIN 40 MG/0.4 ML (LOVENOX) SYR SQ SCH (13:29)
--- NOTE | 2023-01-23 14:26 | Physical Therapy Evaluation ---
PT Evaluation-General Medical Diagnosis Admission Date January 22, 2023 at 00:28 Medical Diagnosis: COVID, Acute respiratory failure Onset Date: January 21, 2023 Therapy Diagnosis Therapy Diagnosis: Gait deficit strength deficit Height/Weight Height (Feet): 5 Height (Inches): 9.00 Weight (Pounds): 142 Weight (Ounces): 8.0 Precautions Precautions/Isolations: Contact Isolation, Droplet Isolation, Fall Prevention Weight Bear Status Right Lower Extremity: Right Full Weight Bearing Left Lower Extremity: Left Full Weight Bearing Referral Physician: Dr. Parsons Reason for Referral: Evaluation/Treatment Medical History Pertinent Medical History: Arthritis, CAD, COPD, GERD, HTN, Hypothroidism, PVD, Rheumatoid Arthritis Reviewed History: Yes Social History Home: Single Level Current Living Status: Spouse Entry Into Home: Stairs With Railing PT Steps Into Home: 4 Prior Prior Level of Function SCALE: Activities may be completed with or without assistive devices. 4-Vxudqwvblq-jxcxatr completes the activity by him/herself with no assistance from a helper. 5-Set-up or Clean-up Assistance-helper sets up or cleans up; patient completes activity. [place] assists only prior to or following the activity. 4-Supervision or Touching Assistance-helper provides verbal cues and/or touching/steadying and/or contact guard assistance as patient completes activity. Assistance may be provided throughout the activity or intermittently. 3-Partial/Moderate Assistance-helper does LESS THAN HALF the effort. [place] lifts, holds or supports trunk or limbs, but provides less than half the effort. 2-Substantial/Maximal Assistance-helper does MORE THAN HALF the effort. [place] lifts or holds trunk or limbs and provides more than half the effort. 0-Jygzzjpmh-odsgqc does ALL the effort. Patient does none of the effort to complete the activity. Or, the assistance of 2 or more helpers is required for the patient to complete the activity. If activity was not attempted, code reason: 7-Patient Refused. 9-Not Applicable-not attempted and the patient did not perform the activity before the current illness, exacerbation or injury. 10-Not Attempted due to Environmental Limitations-(lack of equipment, weather restraints, etc.). 88-Not Attempted due to Medical Conditions or Safety Concerns. Bed Mobility: 6 Transfers (B,C,W/C): 6 Gait: 6 Stairs: 6 Indoor Mobility (Ambulation): Independent Stairs: Independent Prior Devices Use: Other-see list below Prior Device Use: cane PT Evaluation-Current Subjective Patient lying supine in bed upon PT arrival, he is confused about his current location and why he is here, but is agreeable to treatment. Patient rates his pain currently at 5/10 in his back, neck and hands. Patient reports "I thought I was in someones garage with all the signs on the barajas." Objective Patient Orientation: Person Attachments: Oxygen, IV ROM/Strength ROM Lower Extremities BLEs limited 10 degrees or more in all planes. Patient has severe RA especially in his hands and feet and demonstrates a severe right knee genu valgus that hinders him while ambulating. Sensory Vision: Wears Glasses Hearing: Functional Sensation Right Lower Extremit: Intact Sensation Left Lower Extremity: Intact Transfers Roll Left to Right (QC): 4 Sit to Lying (QC): 4 Lying to Sitting/Side of Bed(Q: 4 Sit to Stand (QC): 3 Chair/Dub-le-Pdpyl Xfer(QC): 3 Gait Does the Patient Walk?: Yes Mode of Locomotion: Walk Anticipated Mode of Locomotion: Walk Walk 10 feet (QC): 3 Distance: 28 feet Gait Assistive Device: FWW Balance Sitting Static: Good Sitting Dynamic: Good Standing Static: Fair Standing Dynamic: Fair Assessment/Needs Patient tolerated treatment fair. Patient performs all bed mobility and transfers with SBA to mod A. Patient ambulates 28 feet with FWW, with CGA and verbal cues for safety, progression and control of FWW. Patient ambulates with significant right knee genu valgus that limits the amount of stance time on the right LE, additionally decreases his ability to perform equal stride length bilaterally. Patient in bed post treatment with all needs met, nursing notified, call light in hand and bed alarm activated. Rehab Potential: Fair PT Assistant Professor Of Criminal Justice Goals Assistant Professor Of Criminal Justice Goals PT Assistant Professor Of Criminal Justice Goals Time Frame: February 15, 2023 Roll Left & Right (QC): 6 Sit to Lying (QC): 6 Lying-Sitting on Side/Bed(QC): 6 Sit to Stand (QC): 6 Chair/Wtb-pz-Delkj Xfer(QC): 6 Toilet Transfer (QC): 6 Does the Patient Walk: Yes Walk 10 feet (QC): 6 Walk 50ft with 2 Turns (QC): 6 Walk 150 ft (QC): 6 1 Step (curb) (QC): 4 4 Steps (QC): 4 PT Plan Problem List Problem List: Activity Tolerance, Functional Strength, Safety, Balance, Gait, Transfer, Bed Mobility, ROM Treatment/Plan Treatment Plan: Continue Plan of Care Treatment Plan: Bed Mobility, Education, Functional Activity Juli, Functional Strength, Group Therapy, Gait, Safety, Therapeutic Exercise, Transfers Treatment Duration: February 15, 2023 Frequency: 6 times per week Estimated Hrs Per Day: .25 hour per day Patient and/or Family Agrees t: Yes Safety Risks/Education Patient Education: Gait Training, Transfer Techniques Teaching Recipient: Patient Teaching Methods: Demonstration, Discussion Response to Teaching: Reinforcement Needed Time Time In: 1400 Time Out: 1430 DATE: January 23, 2023 Total Billed Treatment Time: 30 Total Billed Treatment Visit, Brian ALMANZA JOHN A PT January 23, 2023 14:26
[2023-01-23 16:27] VITALS: BP 106/58
--- NOTE | 2023-01-23 17:31 | Progress Note - Hospitalist ---
Subjective HPI/CC On Admission Date Seen by Provider: January 23, 2023 Time Seen by Provider: 12:45 Patient is [age]-year-old male with past medical history of COPD rheumatoid arthritis hypertension coronary artery disease who presented to the emergency department with a weeklong history of myalgias and overall malaise. When asked how he is feeling he states "I am fucked." When asked to elaborate he was unable to and just use further explicit to describe his generalized issues. He denies any shortness of breath or cough but he does endorse a history of lung disease though he is unsure if he has asthma or COPD. Review of records indicates he does have COPD. In the ER a COVID swab was done and was found to be positive. He reports he is unvaccinated for this and has not had a previous infection. When asked pointedly he does complain of muscle aches and nausea and indicates symptoms started about 1 week ago. We discussed natural course of COVID and how patients typically tend to get worse before they get better around day 7-10. When asked if I could do anything for him he stated "shoot me." He denies wearing oxygen at baseline and is currently on 3 L/min. He has no other specific complaints at this time. Subjective/Events-last exam He is feeling weak. He has no other complaints. Objective Exam Vital Signs Vital Signs Date Time Temp Pulse Resp B/P (MAP) Pulse Ox O2 Delivery O2 Flow Rate FiO2 01/23/23 16:27 36.1 60 19 106/58 (74) 96 Nasal Cannula 2.00 01/22/23 11:50 32 Capillary Refill : Less Than 3 Seconds General Appearance: No Apparent Distress, Chronically ill Respiratory: No Respiratory Distress, Decreased Breath Sounds Cardiovascular: Regular Rate, Rhythm, No Murmur Gastrointestinal: Normal Bowel Sounds, Soft Extremity: Non Tender, No Pedal Edema Neurologic/Psychiatric: Alert, Disoriented Skin: Warm/Dry, Pallor Results/Procedures Lab Laboratory Tests 01/23/23 05:50 Patient resulted labs reviewed. Imaging: Reviewed Imaging Report Assessment/Plan Assessment and Plan Assess & Plan/Chief Complaint Acute respiratory failure with hypoxia COVID-19 Bacterial pneumonia Likely COPD Supplemental oxygen as needed Decadron Cefepime and Doxycycline MAT protocol АНДРЕЙ on CKD Hyperkalemia Gentle IV fluids Potassium stable Hypoglycemia D5W Chronic wound Follows with wound care, consulted Continue dressing changes Continue Doxycycline HTN CAD BP well controlled so hold home meds RA Continue home pain meds Debility PT/OT DVT ppx: Lovenox Diagnosis/Problems Diagnosis/Problems (1) Acute respiratory failure with hypoxia Status: Acute (2) COVID-19 Status: Acute (3) PNA (pneumonia) Status: Acute (4) Acute kidney injury superimposed on chronic kidney disease Status: Acute (5) Hyperkalemia Status: Acute (6) COPD (chronic obstructive pulmonary disease) with acute bronchitis Status: Acute (7) Chronic pain Status: Acute (8) Arthritis Status: Acute LENO PABON MD January 23, 2023 17:31
[2023-01-23 19:48] VITALS: BP 117/56
[2023-01-24] VITALS (8 sets, daily range): BP systolic 101–125; BP diastolic 52–63
[2023-01-24] MEDS: D5 1/2 NS 1000 ML IV SOLUTION 1,000 ML IV SCH (02:30)
[2023-01-24] MEDS: RT-ALBUTEROL HFA 8.5 GM INHALER IH SCH ×6 (02:32→21:54)
[2023-01-24] MEDS: LEVOTHYROXINE 150 MCG (LEVOTHROID) TAB PO SCH (05:41)
[2023-01-24] MEDS: DOXYCYCLINE 100 MG (VIBRAMYCIN) TABLET PO SCH ×2 (05:41→17:33)
[2023-01-24] MEDS: dexAMETHasone 6 MG TAB (DECADRON) PO SCH (05:41)
[2023-01-24] MEDS: CEFEPIME INJECTION 1,000 MG in NS (IVPB) 50 ML IV SCH ×3 (06:53→23:41)
--- NOTE | 2023-01-24 08:07 | Physical Therapy Daily Note ---
PT Daily Note-Current Subjective Patient agrees to PT. Pain Section J - Health Conditions 1. Rarely or not at all 2. Occasionally 3. Frequently 4. Almost constantly 8. Unable to answer Pain Effect on Sleep: 1 Pain Interference with Therapy: 1 Pain Interference w/Day-to-Day: 2 Mental Status Patient Orientation: Normal For Age Attachments: Oxygen, IV Transfers SCALE: Activities may be completed with or without assistive devices. 2-Vchxiljpbu-nzopkhn completes the activity by him/herself with no assistance from a helper. 5-Set-up or Clean-up Assistance-helper sets up or cleans up; patient completes activity. [place] assists only prior to or following the activity. 4-Supervision or Touching Assistance-helper provides verbal cues and/or touching/steadying and/or contact guard assistance as patient completes activity. Assistance may be provided throughout the activity or intermittently. 3-Partial/Moderate Assistance-helper does LESS THAN HALF the effort. [place] lifts, holds or supports trunk or limbs, but provides less than half the effort. 2-Substantial/Maximal Assistance-helper does MORE THAN HALF the effort. [place] lifts or holds trunk or limbs and provides more than half the effort. 5-Iiosqhugf-cfcglj does ALL the effort. Patient does none of the effort to complete the activity. Or, the assistance of 2 or more helpers is required for the patient to complete the activity. If activity was not attempted, code reason: 7-Patient Refused. 9-Not Applicable-not attempted and the patient did not perform the activity before the current illness, exacerbation or injury. 10-Not Attempted due to Environmental Limitations-(lack of equipment, weather restraints, etc.). 88-Not Attempted due to Medical Conditions or Safety Concerns. Lying to Sitting/Side of Bed(Q: 6 Sit to Stand (QC): 4 Chair/Xce-up-Dxdab Xfer(QC): 4 Weight Bearing Right Lower Extremity: Right Full Weight Bearing Left Lower Extremity: Left Full Weight Bearing Gait Training Distance: 30' Walk 10 feet (QC): 4 Gait Assistive Device: FWW slow, functional gait sequence with noted genu valgus right knee due to RA Assessment Patient is up in recliner with needs met. Patient limits gait due to fatigue and joint pain. PT to increase activity as tolerated by patient. PT Custodial Goals Credit Collections Analyst Goals PT Credit Collections Analyst Goals Time Frame: February 15, 2023 Roll Left & Right (QC): 6 Sit to Lying (QC): 6 Lying-Sitting on Side/Bed(QC): 6 Sit to Stand (QC): 6 Chair/Jqt-ej-Kihei Xfer(QC): 6 Toilet Transfer (QC): 6 Does the Patient Walk: Yes Walk 10 feet (QC): 6 Walk 50ft with 2 Turns (QC): 6 Walk 150 ft (QC): 6 1 Step (curb) (QC): 4 4 Steps (QC): 4 PT Plan Treatment/Plan Treatment Plan: Continue Plan of Care Treatment Plan: Bed Mobility, Education, Functional Activity Juli, Functional Strength, Group Therapy, Gait, Safety, Therapeutic Exercise, Transfers Treatment Duration: February 15, 2023 Frequency: 6 times per week Estimated Hrs Per Day: .25 hour per day Patient and/or Family Agrees t: Yes Time Time In: 740 Time Out: 751 DATE: January 24, 2023 Total Billed Treatment Time: 11 Total Billed Treatment 1 visit GT 11 min LIZET SARMIENTO PT January 24, 2023 08:07
[2023-01-24] MEDS: GABAPENTIN 100 MG (NEURONTIN) CAP PO SCH ×2 (08:32→21:21)
[2023-01-24] MEDS: morphine IMMEDIATE RELEASE 15 MG TABLET PO SCH ×3 (08:32→21:21)
[2023-01-24] MEDS: PANTOPRAZOLE 40 MG (PROTONIX) TAB PO SCH (08:32)
[2023-01-24] MEDS: ONDANSETRON 4 MG/2 ML (SDV) Z0FRAN IV PRN (08:32)
[2023-01-24 08:42] LABS: BASOPHILS % (AUTO) 0 % (0-10); EOSINOPHILS % (AUTO) 0 % (0-10); HEMATOCRIT 34 % (40-54); HEMOGLOBIN 10.9 g/dL (13.3-17.7); LYMPHOCYTES % (AUTO) 13 % (12-44); MEAN CORPUSCULAR HEMOGLOBIN 25 pg (25-34); MEAN CORPUSCULAR HGB CONC 32 g/dL (32-36); MEAN CORPUSCULAR VOLUME 78 fL (80-99); MEAN PLATELET VOLUME 9.7 fL (9.0-12.2); MONOCYTES # (AUTO) 0.4 10^3/uL (0.0-1.0); MONOCYTES % (AUTO) 5 % (0-12); NEUTROPHILS # (AUTO) 5.8 10^3/uL (1.8-7.8); NEUTROPHILS % (AUTO) 81 % (42-75); PLATELET COUNT 280 10^3/uL (130-400); WHITE BLOOD COUNT 7.2 10^3/uL (4.3-11.0)
[2023-01-24 08:58] LABS: POTASSIUM 4.5 MMOL/L (3.6-5.0)
[2023-01-24 08:59] LABS: CALCIUM 8.5 MG/DL (8.5-10.1)
[2023-01-24 09:03] LABS: CREATININE SERUM 1.36 MG/DL (0.60-1.30)
[2023-01-24] MEDS ORDERED: HYPOCHLOROUS ACID/NaCl (VASHE) 250 ML IR PRN (09:15)
--- NOTE | 2023-01-24 09:44 | Wound Care Assessment ---
Wound Care Assessment Date Seen by Provider: January 24, 2023 Time Seen by Provider: 09:10 Chief Complaint COVID; generalized weakness, fatigue, nausea HPI Benjamin Shaffer is a 77 yo male who presented to the emergency department yesterday with complaints of generalized weakness, fatigue, and nausea. He was diagnosed with COVID and admitted to inpatient medicine. The patient at this time endorses persistence of his symptoms. He has a right anterior lower johnston wound that has been present for a long while. He is a long time patient in outpatient wound care. He did have arterial intervention per Dr. Thomas on 01/05/23 with stenting to numerous vessels. Since that time he has seen dramatic improvements. His silver alginate is currently changed twice weekly via home health and once weekly in our clinic. However, daily dressings would be more advisable. He does also suffer from COPD, severe RA with multiple joint deformities and tobaccoism. He is currently working on cessation (/ ppd). He recently established care with rheumatology but has not initiated any kind of immunosuppressive therapy. Past Medical History: Admits Peripheral Artery Disease COPD, severe RA Smoking Status: Current Everyday Smoker Recreational Drug Use: No Alcohol Use: Denies Use Review of Systems General: Chills, Fatigue, Appetite Pulmonary: Dyspnea Gastrointestinal: Nausea, Vomiting Genitourinary: Incontinence Neurological: Numbness; No: Weakness Exam Vital Signs Date Time Temp Pulse Resp B/P (MAP) Pulse Ox O2 Delivery O2 Flow Rate FiO2 01/24/23 08:15 36.2 65 18 125/61 (82) 94 Nasal Cannula 1.50 01/22/23 11:50 32 Capillary Refill : Less Than 3 Seconds General Appearance: mild distress, other (frail) HEENT: PERRL/EOMI Neck: full range of motion Cardiovascular: no edema Respiratory: no respiratory distress, no accessory muscle use, other (on contin uous O2) Extremities: pedal edema Neurologic/Psychiatric: alert, normal mood/affect, oriented x 3 Skin: normal color, warm/dry Skin Problem Location: lower extremities (right]) Patient has 10x7x0.1 cm wound to the right lower anterior johnston. No undermining or tunneling. Wound is pale and nonodorous. Drainage is minimal and serous. Margins are flat. Granulation tissue is small. Necrotic tissue is medium slough. Epitheliaziation is medium. Results Laboratory Tests 01/23/23 16:43: Glucometer 153H 01/23/23 20:33: Glucometer 124H 01/24/23 06:49: Glucometer 104 01/24/23 08:30: White Blood Count 7.2, Red Blood Count 4.39, Hemoglobin 10.9L, Hematocrit 34L, Mean Corpuscular Volume 78L, Mean Corpuscular Hemoglobin 25, Mean Corpuscular Hemoglobin Concent 32, Red Cell Distribution Width 17.1H, Platelet Count 280, Mean Platelet Volume 9.7, Immature Granulocyte % (Auto) 0, Neutrophils (%) (Auto) 81H, Lymphocytes (%) (Auto) 13, Monocytes (%) (Auto) 5, Eosinophils (%) (Auto) 0, Basophils (%) (Auto) 0, Neutrophils # (Auto) 5.8, Lymphocytes # (Auto) 1.0, Monocytes # (Auto) 0.4, Eosinophils # (Auto) 0.0, Basophils # (Auto) 0.0, Immature Granulocyte # (Auto) 0.0, Sodium Level 137, Potassium Level 4.5, Chloride Level 107, Carbon Dioxide Level 18L, Anion Gap 12, Blood Urea Nitrogen 21H, Creatinine 1.36H, Estimat Glomerular Filtration Rate 54, BUN/Creatinine Ratio 15, Glucose Level 102, Calcium Level 8.5 Assessment/Plan/Dx A: 1. Non-pressure ulcer (full thickness) R. anterior tibia 2. Atherosclerosis of RLE with ulceration 3. Lymphedema 4. Tobaccoism 5. COVID-19 6. COPD 7. Severe RA P: 1. Cleanse daily with Vashe. Apply barrier ointment to periwound. Apply silver alginate hydrofiber to wound bed. [facility] Change daily. Resume wound care upon d/c from hospital 2. S/P intervention with Dr. Thomas. Great improvements in wound healing since intervention 3. Elevate 4. Agree with patient's cessation efforts. encouragement given 5. Defer to primary team 6. Defer to primary team 7. Defer to primary team Supervisory-Addendum Brief Verification & Attestation Participated in pt care: history, MDM, physical Personally performed: exam, history, MDM, supervision of care Care discussed with: Medical Student Procedures: n/a Results interpretation: Verified all documentation MD KASSANDRA Nunez KELVIN January 24, 2023 09:44 MELISSA TORRES MD January 24, 2023 14:27
[2023-01-24] MEDS ORDERED: MORP-68 PO (14:26)
[2023-01-24] MEDS ORDERED: LOSA25TA41 PO (14:26)
[2023-01-24] MEDS ORDERED: ESOM40CA52 PO (14:26)
[2023-01-24] MEDS ORDERED: LEVO150T6 PO (14:26)
[2023-01-24] MEDS: ENOXAPARIN 40 MG/0.4 ML (LOVENOX) SYR SQ SCH (14:28)
--- NOTE | 2023-01-24 19:35 | Progress Note - Hospitalist ---
Subjective HPI/CC On Admission Date Seen by Provider: January 24, 2023 Time Seen by Provider: 12:00 Patient is [age]-year-old male with past medical history of COPD rheumatoid arthritis hypertension coronary artery disease who presented to the emergency department with a weeklong history of myalgias and overall malaise. When asked how he is feeling he states "I am fucked." When asked to elaborate he was unable to and just use further explicit to describe his generalized issues. He denies any shortness of breath or cough but he does endorse a history of lung disease though he is unsure if he has asthma or COPD. Review of records indicates he does have COPD. In the ER a COVID swab was done and was found to be positive. He reports he is unvaccinated for this and has not had a previous infection. When asked pointedly he does complain of muscle aches and nausea and indicates symptoms started about 1 week ago. We discussed natural course of COVID and how patients typically tend to get worse before they get better around day 7-10. When asked if I could do anything for him he stated "shoot me." He denies wearing oxygen at baseline and is currently on 3 L/min. He has no other specific complaints at this time. Subjective/Events-last exam He is feeling a bit better. He has been able to walk with therapy. He has no other complaints. Objective Exam Vital Signs Vital Signs Date Time Temp Pulse Resp B/P (MAP) Pulse Ox O2 Delivery O2 Flow Rate FiO2 01/24/23 16:01 36.6 61 16 103/52 (69) 93 Nasal Cannula 1.50 01/22/23 11:50 32 Capillary Refill : Less Than 3 Seconds General Appearance: No Apparent Distress, WD/WN Respiratory: Lungs Clear, No Respiratory Distress Cardiovascular: Regular Rate, Rhythm, No Murmur Gastrointestinal: Normal Bowel Sounds, Soft Extremity: Normal Inspection, No Pedal Edema Neurologic/Psychiatric: Alert, Normal Mood/Affect Skin: Normal Color, Warm/Dry Results/Procedures Lab Laboratory Tests 01/24/23 08:30 Patient resulted labs reviewed. Imaging: Reviewed Imaging Report Assessment/Plan Assessment and Plan Assess & Plan/Chief Complaint Acute respiratory failure with hypoxia COVID-19 Bacterial pneumonia Likely COPD Supplemental oxygen as needed Decadron Cefepime and Doxycycline MAT protocol АНДРЕЙ on CKD Hyperkalemia Stop IV fluids Potassium normalized Hypoglycemia, resolved Stop D5W Chronic wound Follows with wound care, consulted Continue dressing changes Continue Doxycycline HTN CAD BP well controlled so hold home meds RA Continue home pain meds Debility PT/OT DVT ppx: Lovenox Diagnosis/Problems Diagnosis/Problems (1) Acute respiratory failure with hypoxia Status: Acute (2) COVID-19 Status: Acute (3) PNA (pneumonia) Status: Acute (4) Acute kidney injury superimposed on chronic kidney disease Status: Acute (5) Hyperkalemia Status: Resolved Resolution Date/Time: 01/24/23 @ 19:34 (6) COPD (chronic obstructive pulmonary disease) with acute bronchitis Status: Acute (7) Chronic pain Status: Acute (8) Arthritis Status: Acute LENO PABON MD January 24, 2023 19:35
[2023-01-25] MEDS: RT-ALBUTEROL HFA 8.5 GM INHALER IH SCH ×5 (02:46→20:57)
[2023-01-25 04:25] VITALS: BP 103/52
[2023-01-25] MEDS: CEFEPIME INJECTION 1,000 MG in NS (IVPB) 50 ML IV SCH (06:26)
[2023-01-25] MEDS: LEVOTHYROXINE 150 MCG (LEVOTHROID) TAB PO SCH (06:26)
[2023-01-25] MEDS: DOXYCYCLINE 100 MG (VIBRAMYCIN) TABLET PO SCH ×2 (06:26→16:40)
[2023-01-25] MEDS: dexAMETHasone 6 MG TAB (DECADRON) PO SCH (06:26)
[2023-01-25 07:48] VITALS: BP 105/68
[2023-01-25] MEDS: PANTOPRAZOLE 40 MG (PROTONIX) TAB PO SCH (09:25)
[2023-01-25] MEDS: morphine IMMEDIATE RELEASE 15 MG TABLET PO SCH ×3 (09:25→21:37)
[2023-01-25] MEDS: GABAPENTIN 100 MG (NEURONTIN) CAP PO SCH ×2 (09:26→21:37)
[2023-01-25 10:59] VITALS: BP 105/68
[2023-01-25] MEDS: LORazepam 0.5 MG (ATIVAN) TABLET PO PRN ×2 (11:22→21:37)
[2023-01-25] MEDS: ONDANSETRON 4 MG/2 ML (SDV) Z0FRAN IV PRN (11:22)
[2023-01-25] MEDS: ENOXAPARIN 40 MG/0.4 ML (LOVENOX) SYR SQ SCH (11:22)
[2023-01-25 11:59] VITALS: BP 102/54
--- NOTE | 2023-01-25 15:39 | Progress Note - Hospitalist ---
Subjective HPI/CC On Admission Date Seen by Provider: January 25, 2023 Time Seen by Provider: 11:55 Patient is [age]-year-old male with past medical history of COPD rheumatoid arthritis hypertension coronary artery disease who presented to the emergency department with a weeklong history of myalgias and overall malaise. When asked how he is feeling he states "I am fucked." When asked to elaborate he was unable to and just use further explicit to describe his generalized issues. He denies any shortness of breath or cough but he does endorse a history of lung disease though he is unsure if he has asthma or COPD. Review of records indicates he does have COPD. In the ER a COVID swab was done and was found to be positive. He reports he is unvaccinated for this and has not had a previous infection. When asked pointedly he does complain of muscle aches and nausea and indicates symptoms started about 1 week ago. We discussed natural course of COVID and how patients typically tend to get worse before they get better around day 7-10. When asked if I could do anything for him he stated "shoot me." He denies wearing oxygen at baseline and is currently on 3 L/min. He has no other specific complaints at this time. Subjective/Events-last exam He is feeling ok. His appetite is poor. He has been up and walking. Objective Exam Vital Signs Vital Signs Date Time Temp Pulse Resp B/P (MAP) Pulse Ox O2 Delivery O2 Flow Rate FiO2 01/25/23 11:59 37.0 60 18 102/54 (70) 96 Nasal Cannula 2.00 01/22/23 11:50 32 Capillary Refill : Less Than 3 Seconds General Appearance: No Apparent Distress, WD/WN Respiratory: Lungs Clear, No Respiratory Distress Cardiovascular: Regular Rate, Rhythm, No Murmur Gastrointestinal: Normal Bowel Sounds, Soft Extremity: Normal Inspection, No Pedal Edema Neurologic/Psychiatric: Alert, Normal Mood/Affect Skin: Normal Color, Warm/Dry Results/Procedures Lab Patient resulted labs reviewed. Imaging: Reviewed Imaging Report Assessment/Plan Assessment and Plan Assess & Plan/Chief Complaint Acute respiratory failure with hypoxia COVID-19 Bacterial pneumonia Likely COPD Supplemental oxygen as needed Decadron Cefepime and Doxycycline MAT protocol АНДРЕЙ on CKD Hyperkalemia Stop IV fluids Potassium normalized Hypoglycemia, resolved Stop D5W Chronic wound Follows with wound care, consulted Continue dressing changes Continue Doxycycline HTN CAD BP well controlled so hold home meds RA Continue home pain meds Debility PT/OT DVT ppx: Lovenox Diagnosis/Problems Diagnosis/Problems (1) Acute respiratory failure with hypoxia Status: Acute (2) COVID-19 Status: Acute (3) PNA (pneumonia) Status: Acute (4) Acute kidney injury superimposed on chronic kidney disease Status: Acute (5) Hyperkalemia Status: Resolved Resolution Date/Time: 01/24/23 @ 19:34 (6) COPD (chronic obstructive pulmonary disease) with acute bronchitis Status: Acute (7) Chronic pain Status: Acute (8) Arthritis Status: Acute LENO PABON MD January 25, 2023 15:39
[2023-01-25 15:40] VITALS: BP 115/67
--- NOTE | 2023-01-25 15:40 | Physical Therapy Daily Note ---
PT Daily Note-Current Subjective Patient lying supine in bed upon PT arrival, agreeable to treatment. Patient rates tenisha at 8/10 all over Pain Section J - Health Conditions 1. Rarely or not at all 2. Occasionally 3. Frequently 4. Almost constantly 8. Unable to answer Pain Effect on Sleep: 1 Pain Interference with Therapy: 1 Pain Interference w/Day-to-Day: 2 Mental Status Patient Orientation: Person Transfers SCALE: Activities may be completed with or without assistive devices. 8-Tdhxsjvzpx-ugllocu completes the activity by him/herself with no assistance from a helper. 5-Set-up or Clean-up Assistance-helper sets up or cleans up; patient completes activity. [place] assists only prior to or following the activity. 4-Supervision or Touching Assistance-helper provides verbal cues and/or touching/steadying and/or contact guard assistance as patient completes activity. Assistance may be provided throughout the activity or intermittently. 3-Partial/Moderate Assistance-helper does LESS THAN HALF the effort. [place] lifts, holds or supports trunk or limbs, but provides less than half the effort. 2-Substantial/Maximal Assistance-helper does MORE THAN HALF the effort. [place] lifts or holds trunk or limbs and provides more than half the effort. 6-Rlrcsgpmk-nerrui does ALL the effort. Patient does none of the effort to complete the activity. Or, the assistance of 2 or more helpers is required for the patient to complete the activity. If activity was not attempted, code reason: 7-Patient Refused. 9-Not Applicable-not attempted and the patient did not perform the activity b efore the current illness, exacerbation or injury. 10-Not Attempted due to Environmental Limitations-(lack of equipment, weather restraints, etc.). 88-Not Attempted due to Medical Conditions or Safety Concerns. Roll Left & Right (QC): 3 Sit to Lying (QC): 3 Lying to Sitting/Side of Bed(Q: 3 Sit to Stand (QC): 3 Weight Bearing Right Lower Extremity: Right Full Weight Bearing Left Lower Extremity: Left Full Weight Bearing Gait Training Does the Patient Walk?: Yes Distance: 20 feet Walk 10 feet (QC): 3 Gait Persons Needed: 1 Gait Assistive Device: FWW Assessment Current Status: Fair Progress Patient tolerated treatment fair. Patient performs all bed mobility and transfers with min/mod A. Patient ambulates 20 feet in room with FWW, with min A and verbal cues for safety, progression, balance and control of FWW. Patient in bed post treatment with all needs met, nursing notified, call light in hand. PT Drying Rack Changer Goals Drying Rack Changer Goals PT Drying Rack Changer Goals Time Frame: February 15, 2023 Roll Left & Right (QC): 6 Sit to Lying (QC): 6 Lying-Sitting on Side/Bed(QC): 6 Sit to Stand (QC): 6 Chair/Meg-xw-Mljlt Xfer(QC): 6 Toilet Transfer (QC): 6 Does the Patient Walk: Yes Walk 10 feet (QC): 6 Walk 50ft with 2 Turns (QC): 6 Walk 150 ft (QC): 6 1 Step (curb) (QC): 4 4 Steps (QC): 4 PT Plan Treatment/Plan Treatment Plan: Continue Plan of Care Treatment Plan: Bed Mobility, Education, Functional Activity Juli, Functional Strength, Group Therapy, Gait, Safety, Therapeutic Exercise, Transfers Treatment Duration: February 15, 2023 Frequency: 6 times per week Estimated Hrs Per Day: .25 hour per day Patient and/or Family Agrees t: Yes Safety Risks/Education Patient Education: Gait Training, Transfer Techniques Teaching Recipient: Patient Teaching Methods: Demonstration, Discussion Response to Teaching: Reinforcement Needed Time Time In: 1400 Time Out: 1415 DATE: January 25, 2023 Total Billed Treatment Time: 15 Total Billed Treatment Visit, BILL Mcginnis PT January 25, 2023 15:40
[2023-01-25 19:32] VITALS: BP 144/67
[2023-01-25] MEDS: CEFDINIR 300 MG (OMNICEF) CAP PO SCH (21:37)
[2023-01-26 00:04] VITALS: BP 100/58
[2023-01-26] MEDS: RT-ALBUTEROL HFA 8.5 GM INHALER IH SCH ×3 (02:25→16:00)
[2023-01-26 04:00] VITALS: BP 105/69
[2023-01-26] MEDS: DOXYCYCLINE 100 MG (VIBRAMYCIN) TABLET PO SCH ×2 (06:16→16:09)
[2023-01-26] MEDS: dexAMETHasone 6 MG TAB (DECADRON) PO SCH (06:16)
[2023-01-26] MEDS: LEVOTHYROXINE 150 MCG (LEVOTHROID) TAB PO SCH (06:16)
[2023-01-26] MEDS: GABAPENTIN 100 MG (NEURONTIN) CAP PO SCH (08:03)
[2023-01-26] MEDS: PANTOPRAZOLE 40 MG (PROTONIX) TAB PO SCH (08:03)
[2023-01-26] MEDS: CEFDINIR 300 MG (OMNICEF) CAP PO SCH (08:03)
[2023-01-26] MEDS: ONDANSETRON 4 MG/2 ML (SDV) Z0FRAN IV PRN (08:03)
[2023-01-26] MEDS: morphine IMMEDIATE RELEASE 15 MG TABLET PO SCH ×2 (08:07→12:42)
[2023-01-26 08:20] VITALS: BP 134/70
[2023-01-26 11:39] VITALS: BP 107/58
[2023-01-26] MEDS: ENOXAPARIN 40 MG/0.4 ML (LOVENOX) SYR SQ SCH (12:42)
--- NOTE | 2023-01-26 14:38 | Physical Therapy Daily Note ---
PT Daily Note-Current Subjective Patient lying supine in bed upon PT arrival, agreeable to treatment. Patient rates pain at 6/10 currently in hands, knees and back. Pain Section J - Health Conditions 1. Rarely or not at all 2. Occasionally 3. Frequently 4. Almost constantly 8. Unable to answer Pain Effect on Sleep: 1 Pain Interference with Therapy: 1 Pain Interference w/Day-to-Day: 2 Mental Status Patient Orientation: Person, Place, Time, Situation Transfers SCALE: Activities may be completed with or without assistive devices. 7-Awcxweplca-ftyjnmr completes the activity by him/herself with no assistance from a helper. 5-Set-up or Clean-up Assistance-helper sets up or cleans up; patient completes a ctivity. [address] assists only prior to or following the activity. 4-Supervision or Touching Assistance-helper provides verbal cues and/or touching/steadying and/or contact guard assistance as patient completes activity. Assistance may be provided throughout the activity or intermittently. 3-Partial/Moderate Assistance-helper does LESS THAN HALF the effort. [address] lifts, holds or supports trunk or limbs, but provides less than half the effort. 2-Substantial/Maximal Assistance-helper does MORE THAN HALF the effort. [address] lifts or holds trunk or limbs and provides more than half the effort. 4-Zkcsohcks-zxxndt does ALL the effort. Patient does none of the effort to complete the activity. Or, the assistance of 2 or more helpers is required for the patient to complete the activity. If activity was not attempted, code reason: 7-Patient Refused. 9-Not Applicable-not attempted and the patient did not perform the activity before the current illness, exacerbation or injury. 10-Not Attempted due to Environmental Limitations-(lack of equipment, weather restraints, etc.). 88-Not Attempted due to Medical Conditions or Safety Concerns. Roll Left & Right (QC): 4 Sit to Lying (QC): 4 Lying to Sitting/Side of Bed(Q: 4 Sit to Stand (QC): 4 Chair/Sea-un-Qbtkr Xfer(QC): 4 Weight Bearing Right Lower Extremity: Right Full Weight Bearing Left Lower Extremity: Left Full Weight Bearing Gait Training Does the Patient Walk?: Yes Distance: 40 feet Walk 10 feet (QC): 4 Gait Assistive Device: FWW Assessment Current Status: Fair Progress Patient tolerated treatment well. Demonstrates SBA/CGA with all bed mobility and transfers. Patient ambulates 40 feet with FWW, with CGA and verbal cues for safety, progression, posture and conservation of energy. Patient in bed post treatment with all needs met, nursing notified, call light in hand. PT Fci Goals Fci Goals PT Commercial Loan Assistant Goals Time Frame: February 15, 2023 Roll Left & Right (QC): 6 Sit to Lying (QC): 6 Lying-Sitting on Side/Bed(QC): 6 Sit to Stand (QC): 6 Chair/Niy-sk-Obyyq Xfer(QC): 6 Toilet Transfer (QC): 6 Does the Patient Walk: Yes Walk 10 feet (QC): 6 Walk 50ft with 2 Turns (QC): 6 Walk 150 ft (QC): 6 1 Step (curb) (QC): 4 4 Steps (QC): 4 PT Plan Treatment/Plan Treatment Plan: Continue Plan of Care Treatment Plan: Bed Mobility, Education, Functional Activity Juli, Functional Strength, Group Therapy, Gait, Safety, Therapeutic Exercise, Transfers Treatment Duration: February 15, 2023 Frequency: 6 times per week Estimated Hrs Per Day: .25 hour per day Patient and/or Family Agrees t: Yes Safety Risks/Education Patient Education: Gait Training, Transfer Techniques Teaching Recipient: Patient Teaching Methods: Demonstration, Discussion Response to Teaching: Verbalize Understanding, Return Demonstration Time Time In: 1326 Time Out: 1341 DATE: January 26, 2023 Total Billed Treatment Time: 15 Total Billed Treatment Visit, BILL Mcginnis PT January 26, 2023 14:38
[2023-01-26 15:45] VITALS: BP 108/59
--- NOTE | 2023-01-26 15:57 | Discharge Summary ---
Discharge Summary Hospital Course Problems/Dx: (1) Acute respiratory failure with hypoxia Status: Acute (2) COVID-19 Status: Acute (3) PNA (pneumonia) Status: Acute (4) Acute kidney injury superimposed on chronic kidney disease Status: Acute (5) Hyperkalemia Status: Resolved (6) COPD (chronic obstructive pulmonary disease) with acute bronchitis Status: Acute (7) Chronic pain Status: Acute (8) Arthritis Status: Acute Hospital Course Date of Admission: January 22, 2023 at 00:28 Admission Diagnosis : Acute respiratory failure due to COVID-19, pneumonia Family Physician/Provider: Ramy Ely MD Date of Discharge: 01/26/23 Discharge Diagnosis: Acute respiratory failure due to COVID-19, pneumonia Hospital Course: Benjamin Shaffer is a 77 year old male who was admitted due to acute respiratory failure with hypoxia due to COVID-19 and bacterial pneumonia. He was treated with steroids and antibiotics. His breathing improved. He also had an АНДРЕЙ on CKD 3a which improved with fluids. He was also debilitated. He worked with therapy. He will be transitioned to swing bed for ongoing therapy and continued medical care. Labs and Pending Lab Test: Home Meds Active Reported Esomeprazole Magnesium 40 Mg Capsule.dr 40 Mg PO HS Losartan Potassium 25 Mg Tablet 25 Mg PO HS Morphine Sulfate ER (Morphine Sulfate) 15 Mg Tablet.er 15 Mg PO TID Vitamin D3 (Cholecalciferol (Vitamin D3)) 50 Mcg (2000 Unit) Tablet 50 Mcg PO DAILY Tizanidine HCl 4 Mg Capsule 4 Mg PO BID Spironolactone 50 Mg Tablet 50 Mg PO DAILY Gabapentin 100 Mg Capsule 100 Mg PO TID Amitriptyline HCl 10 Mg Tablet 10 Mg PO HS Oxycodone-Acetaminophen 10-325 (Oxycodone HCl/Acetaminophen) 10 Mg-325 Mg Tablet 1 Tab PO TID PRN Aspirin 81 Mg Tab.chew 81 Mg PO HS Iprat-Albut 0.5-3(2.5) mg/3 ml (Ipratropium/Albuterol Sulfate) 3 Ml Ampul.neb 3 Ml IH Q6H PRN Assessment/Pt Instructions Discharged to swing bed Discharge Planning: >30 minutes discharge planning Discharge Instructions Discharge Diet: No Restrictions Activity as Tolerated: Yes Discharge Physical Examination Vital Signs Vital Signs Date Time Temp Pulse Resp B/P (MAP) Pulse Ox O2 Delivery O2 Flow Rate FiO2 01/26/23 15:45 36.1 56 17 108/59 (75) 97 Nasal Cannula 1.50 01/22/23 11:50 32 General Appearance: No Apparent Distress, Chronically ill Respiratory: Lungs Clear, No Respiratory Distress Cardiovascular: Regular Rate, Rhythm, No Murmur Gastrointestinal: Normal Bowel Sounds, Soft Extremity: Normal Inspection, No Pedal Edema Skin: Normal Color, Warm/Dry Neurologic/Psychiatric: Alert, Normal Mood/Affect Allergies: Coded Allergies: Sulfa (Sulfonamide Antibiotics) (Verified Allergy, Mild, GI UPSET, 08/11/17) Discharge Summary Date of Admission January 22, 2023 at 00:28 Date of Discharge Discharge Date: January 26, 2023 Discharge Time: 15:57 Admission Diagnosis COVID19 Discharge Diagnosis Acute respiratory failure with hypoxia COVID-19 Bacterial pneumonia Likely COPD АНДРЕЙ on CKD Hyperkalemia Hypoglycemia, resolved Chronic wound HTN CAD RA Debility (1) Acute respiratory failure with hypoxia Status: Acute (2) COVID-19 Status: Acute (3) PNA (pneumonia) Status: Acute (4) Acute kidney injury superimposed on chronic kidney disease Status: Acute (5) Hyperkalemia Status: Resolved (6) COPD (chronic obstructive pulmonary disease) with acute bronchitis Status: Acute (7) Chronic pain Status: Acute (8) Arthritis Status: Acute LENO PABON MD January 26, 2023 15:57
== END 2023-01-26 16:13 | disposition swing bed (61) | DRG 177 ==
LOC: EDUNIT# 17:38 → ER 17:39 → 4TH 01-22 00:28
PROVIDERS: ADMIT Family Medicine; ATTEND Internal Medicine
DX: U07.1 COVID-19 (principal); J15.9 Unspecified bacterial pneumonia; J96.01 Acute respiratory failure with hypoxia; N17.9 Acute kidney failure, unspecified; K51.90 Ulcerative colitis, unspecified, without complications; L97.818 Non-pressure chronic ulcer of other part of right lower leg with other specified severity; E86.0 Dehydration; E87.5 Hyperkalemia; Z66 Do not resuscitate; M06.9 Rheumatoid arthritis, unspecified; J20.9 Acute bronchitis, unspecified; J43.9 Emphysema, unspecified; I27.20 Pulmonary hypertension, unspecified; F17.210 Nicotine dependence, cigarettes, uncomplicated; E16.2 Hypoglycemia, unspecified; I25.10 Atherosclerotic heart disease of native coronary artery without angina pectoris; E78.00 Pure hypercholesterolemia, unspecified; I12.9 Hypertensive chronic kidney disease with stage 1 through stage 4 chronic kidney disease, or unspecified chronic kidney disease; N18.31 Chronic kidney disease, stage 3a; I70.238 Atherosclerosis of native arteries of right leg with ulceration of other part of lower leg; R32 Unspecified urinary incontinence; K21.9 Gastro-esophageal reflux disease without esophagitis; M81.0 Age-related osteoporosis without current pathological fracture; M19.90 Unspecified osteoarthritis, unspecified site; F41.9 Anxiety disorder, unspecified; H54.3 Unqualified visual loss, both eyes; Z28.310 Unvaccinated for COVID-19; Z28.9 Immunization not carried out for unspecified reason; Z93.3 Colostomy status; Z88.2 Allergy status to sulfonamides; Z79.82 Long term (current) use of aspirin; Z79.899 Other long term (current) drug therapy; Z79.891 Long term (current) use of opiate analgesic
CPT/HCPCS: 36415; 71045; 80048; 80053; 81000; 82947; 83690; 83735; 84439; 84443; 85025; 85027; 86141; 87636; 93005; 94640; 94664; 94760

== ENCOUNTER 2023-01-26 13:27 | Inpatient (IN) | payer MEDICARE, OTHER ==
[~2023-01-26] VITALS: Ht 165 cm; Wt 62.9 kg
[~2023-01-26 13:27] MED LIST changes: +ESOM40CA52 PO; +LEVO150T6 PO; +LOSA25TA41 PO; +MORP-68 PO
[2023-01-26] MEDS ORDERED: ONDANSETRON 4 MG/2 ML (SDV) Z0FRAN IV PRN (16:30)
[2023-01-26] MEDS ORDERED: oxyCODONE/APAP 10/325MG (PERCOCET 10) TABLET PO PRN (16:30)
[2023-01-26] MEDS ORDERED: HYPOCHLOROUS ACID/NaCl (VASHE) 250 ML IR PRN (16:45)
[2023-01-26] MEDS: DOXYCYCLINE 100 MG (VIBRAMYCIN) TABLET PO SCH (17:09)
[2023-01-26 20:28] VITALS: BP 132/61
[2023-01-26] MEDS: CEFDINIR 300 MG (OMNICEF) CAP PO SCH (21:28)
[2023-01-26] MEDS: GABAPENTIN 100 MG (NEURONTIN) CAP PO SCH (21:28)
[2023-01-26] MEDS: morphine IMMEDIATE RELEASE 15 MG TABLET PO SCH (21:28)
[2023-01-26] MEDS: RT-ALBUTEROL HFA 8.5 GM INHALER IH SCH (22:02)
[2023-01-27] MEDS: RT-ALBUTEROL HFA 8.5 GM INHALER IH SCH ×4 (03:37→19:44)
[2023-01-27] MEDS: DOXYCYCLINE 100 MG (VIBRAMYCIN) TABLET PO SCH (05:56)
[2023-01-27] MEDS: LEVOTHYROXINE 150 MCG (LEVOTHROID) TAB PO SCH (05:56)
[2023-01-27 08:00] VITALS: BP 130/58
[2023-01-27] MEDS: CEFDINIR 300 MG (OMNICEF) CAP PO SCH ×2 (09:08→19:43)
[2023-01-27] MEDS: PANTOPRAZOLE 40 MG (PROTONIX) TAB PO SCH (09:08)
[2023-01-27] MEDS: morphine IMMEDIATE RELEASE 15 MG TABLET PO SCH ×3 (09:08→19:43)
[2023-01-27] MEDS: GABAPENTIN 100 MG (NEURONTIN) CAP PO SCH ×2 (09:08→19:43)
[2023-01-27 09:49] LABS: HEMATOCRIT 34 % (40-54); HEMOGLOBIN 10.8 g/dL (13.3-17.7); MEAN CORPUSCULAR HEMOGLOBIN 25 pg (25-34); MEAN CORPUSCULAR HGB CONC 32 g/dL (32-36); MEAN CORPUSCULAR VOLUME 79 fL (80-99); MEAN PLATELET VOLUME 9.6 fL (9.0-12.2); PLATELET COUNT 273 10^3/uL (130-400); WHITE BLOOD COUNT 8.2 10^3/uL (4.3-11.0)
[2023-01-27 10:03] LABS: CALCIUM 8.3 MG/DL (8.5-10.1)
[2023-01-27 10:07] LABS: CREATININE SERUM 1.27 MG/DL (0.60-1.30)
[2023-01-27] MEDS: ENOXAPARIN 40 MG/0.4 ML (LOVENOX) SYR SQ SCH (12:34)
--- NOTE | 2023-01-27 14:51 | Physical Therapy Evaluation ---
PT Evaluation-General Medical Diagnosis Admission Date January 26, 2023 at 16:28 Medical Diagnosis: COVID, Acute respiratory failure Onset Date: January 21, 2023 Therapy Diagnosis Therapy Diagnosis: Gait deficit, strength deficit Height/Weight Height (Feet): 5 Height (Inches): 9.00 Weight (Pounds): 142 Weight (Ounces): 8.0 Precautions Precautions/Isolations: Droplet Isolation, Standard Precautions, Pressure Ulcer Weight Bear Status Right Lower Extremity: Right Full Weight Bearing Left Lower Extremity: Left Full Weight Bearing Referral Physician: Dr. Chavis Reason for Referral: Evaluation/Treatment Medical History Pertinent Medical History: Arthritis, CAD, COPD, GERD, HTN, Hypothroidism, PVD, Rheumatoid Arthritis Reviewed History: Yes Social History Home: Single Level Current Living Status: Spouse Prior Prior Level of Function SCALE: Activities may be completed with or without assistive devices. 3-Vmfxznclxf-mdbijpk completes the activity by him/herself with no assistance from a helper. 5-Set-up or Clean-up Assistance-helper sets up or cleans up; patient completes activity. [place] assists only prior to or following the activity. 4-Supervision or Touching Assistance-helper provides verbal cues and/or touching/steadying and/or contact guard assistance as patient completes activity. Assistance may be provided throughout the activity or intermittently. 3-Partial/Moderate Assistance-helper does LESS THAN HALF the effort. [place] lifts, holds or supports trunk or limbs, but provides less than half the effort. 2-Substantial/Maximal Assistance-helper does MORE THAN HALF the effort. [place] lifts or holds trunk or limbs and provides more than half the effort. 5-Rfoemkheq-ajfatz does ALL the effort. Patient does none of the effort to complete the activity. Or, the assistance of 2 or more helpers is required for the patient to complete the activity. If activity was not attempted, code reason: 7-Patient Refused. 9-Not Applicable-not attempted and the patient did not perform the activity before the current illness, exacerbation or injury. 10-Not Attempted due to Environmental Limitations-(lack of equipment, weather restraints, etc.). 88-Not Attempted due to Medical Conditions or Safety Concerns. Bed Mobility: 6 Transfers (B,C,W/C): 6 Gait: 6 Stairs: 6 Indoor Mobility (Ambulation): Independent Stairs: Independent Prior Device Use: cane PT Evaluation-Current Subjective Patient sitting in chair upon PT arrival, agreeable to treatment. Rates pain at 5/10 currently in hands, and back. Pain Section J - Health Conditions 1. Rarely or not at all 2. Occasionally 3. Frequently 4. Almost constantly 8. Unable to answer Pain Effect on Sleep: 2 Pain Interference with Therapy: 2 Pain Interference w/Day-to-Day: 2 Objective Patient Orientation: Person, Place, Time, Situation Attachments: Oxygen ROM/Strength ROM Lower Extremities BLEs limited 10 degrees or more in all planes. Patient has severe RA especially in his hands and feet and demonstrates a severe right knee genu valgus that hinders him while ambulating. Strength Lower Extremities 3/5 all planes BLEs Sensory Sensation Right Lower Extremit: Intact Sensation Left Lower Extremity: Intact Transfers Roll Left & Right (QC): 4 Sit to Lying (QC): 4 Lying to Sitting/Side of Bed(Q: 4 Sit to Stand (QC): 4 Chair/Aiu-gg-Zrvjf Xfer(QC): 4 Toilet Transfer (QC): 4 Car Transfer (QC): 88 Gait Does the Patient Walk?: Yes Mode of Locomotion: Walk Anticipated Mode of Locomotion: Walk Walk 10 feet (QC): 3 Walk 50 ft with 2 Turns(QC): 88 Walk 150 ft (QC): 88 Walking 10ft/uneven surface-QC: 88 Distance: 40' Gait Assistive Device: FWW Wheelchair Training Does the Pt Use a Wheelchair?: No Wheel 50 ft with 2 turns (QC): 88 Wheel 150 ft (QC): 88 Stairs 1 Step (curb) (QC): 88 4 Steps (QC): 88 12 Steps (QC): 88 Balance Sitting Static: Good Sitting Dynamic: Good Standing Static: Fair Standing Dynamic: Fair Picking up an Object (QC): 88 Assessment/Needs Patient tolerated treatment and evaluation well. He demonstrates Kylie to CGA with all observed transfers. Patient performs LE therapeutic exercise of AP, QS, hip adduction, marching, LAQs, Hamstring curls x 20 each LE. Patient ambulates 40 feet with FWW, with min A and verbal cues for safety, progression, balance and posture. Patient in chair post treatment with all needs met, nursing notified, call light in hand, and chair alarm activated. Rehab Potential: Fair PT Alf Goals Auto Brake Mechanic Goals PT Alf Goals Time Frame: February 15, 2023 Roll Left to Right (QC): 6 Sit to Lying (QC): 6 Lying-Sitting on Side/Bed(QC): 6 Sit to Stand (QC): 6 Chair/Vhg-vt-Wweaw Xfer(QC): 6 Toilet/Commode Transfer (QC): 6 Car Transfer (QC): 6 Does the Patient Walk: Yes Walk 10 feet (QC): 5 Walk 10ft-Uneven Surface(QC): 5 Walk 50ft with 2 Turns (QC): 5 Walk 150 ft (QC): 5 Does the Pt use WC or Scooter?: No Wheel 50 feet with 2 turns (QC: 88 Wheel 150 feet: 88 1 Step (curb) (QC): 3 4 Steps (QC): 3 12 Steps (QC): 88 Picking up an Object (QC): 88 PT Plan Problem List Problem List: Activity Tolerance, Functional Strength, Safety, Balance, Gait, Transfer, Bed Mobility, ROM Treatment/Plan Treatment Plan: Continue Plan of Care Treatment Plan: Bed Mobility, Education, Functional Activity Juli, Functional Strength, Group Therapy, Gait, Safety, Therapeutic Exercise, Transfers Treatment Duration: February 15, 2023 Frequency: 6 times per week Estimated Hrs Per Day: .25 hour per day Patient and/or Family Agrees t: Yes Safety Risks/Education Patient Education: Gait Training, Transfer Techniques Teaching Recipient: Patient Teaching Methods: Demonstration, Discussion Response to Teaching: Verbalize Understanding, Return Demonstration Time Time In: 1335 Time Out: 1405 DATE: January 27, 2023 Total Billed Treatment Time: 30 Total Billed Treatment Visit, DWAYNE ALMANZA JOHN A PT January 27, 2023 14:51
--- NOTE | 2023-01-27 15:03 | Occupational Therapy Eval ---
OT Evaluation-General/PLF Medical Diagnosis Admission Date January 26, 2023 at 16:28 Medical Diagnosis: COvid Onset Date: January 26, 2023 Therapy Diagnosis Therapy Diagnosis: weakness Height/Weight Height (Feet): 5 Height (Inches): 9.00 Weight (Pounds): 142 Weight (Ounces): 8.0 Precautions Precautions/Isolations: Droplet Isolation, Standard Precautions, Pressure Ulcer Weight Bear Status Weight Bearing Restriction: Full Weight Bearing Referral Physician: [place] Referral Reason: Evaluation/Treatment Medical History Pertinent Medical History: Arthritis, CAD, COPD, GERD, HTN, Hypothroidism, PVD, Rheumatoid Arthritis Reviewed History: Yes Social History Home: Single Level Current Living Status: Spouse ADL-Prior Level of Function SCALE: Activities may be completed with or without assistive devices. 1-Pyvlxpbrdm-rkspjuz completes the activity by him/herself with no assistance from a helper. 5-Set-up or Clean-up Assistance-helper sets up or cleans up; patient completes activity. [place] assists only prior to or following the activity. 4-Supervision or Touching Assistance-helper provides verbal cues and/or touching/steadying and/or contact guard assistance as patient completes activity. Assistance may be provided throughout the activity or intermittently. 3-Partial/Moderate Assistance-helper does LESS THAN HALF the effort. [place] lifts, holds or supports trunk or limbs, but provides less than half the effort. 2-Substantial/Maximal Assistance-helper does MORE THAN HALF the effort. [place] lifts or holds trunk or limbs and provides more than half the effort. 5-Cmkjvyzcn-wdowhs does ALL the effort. Patient does none of the effort to complete the activity. Or, the assistance of 2 or more helpers is required for the patient to complete the activity. If activity was not attempted, code reason: 7-Patient Refused. 9-Not Applicable-not attempted and the patient did not perform the activity before the current illness, exacerbation or injury. 10-Not Attempted due to Environmental Limitations-(lack of equipment, weather restraints, etc.). 88-Not Attempted due to Medical Conditions or Safety Concerns. Self Care: Independent Functional Cognition: Independent OT Current Status Subjective Agreeable to therapy, patient is verbally responsive however lacks physical participation initiative with this therapist Mental Status/Objective Patient Orientation: Person, Place, Situation Current Upper Extremity ROM WFLs Upper Extremity Strength +3/5 grossly, requires assist for bed mobility ADL-Treatment Eating (QC): 6 Oral Hygiene (QC): 4 Shower/Bathe Self (QC): 7 (declined) Upper Body Dressing (QC): 3 Lower Body Dressing (QC): 2 (delayed motor plannig and trouble shooting/problem solving) On/Off Footwear (QC): 7 (already on , declined removal and donning) Toileting Hygiene (QC): 7 (declined) Education OT Patient Education: Correct positioning, Energy conservation, Modified ADL techniques, Progress toward Goal/Update tx plan, Purpose of tx/functional act ivities, Reviewed precautions, Rehab process, Safety issues, Transfer techniques Teaching Recipient: Patient Teaching Methods: Demonstration, Discussion Response to Teaching: Verbalize Understanding, Reinforcement Needed BIMS CAM BIMS Expression of Ideas and Wants: Difficulty Understanding Verbal Content: Usually Understands Brief Interview/Mental Status: Yes IRF BECKA BIMS: IRF BECKA BIMS Response (Comments) Value Repitition of Three Words Three 3 Recalls Socks Yes, After Cueing (Wear) 1 Recalls Blue Yes, No Cue Required 2 Recalls Bed Yes, After Cueing 1 Year Correct 3 Month Accurate Within 5 Days 2 Day Correct (reads from write board) 1 Total 13 Patient Normally Able to Recal: Current Session, That he/she in a hsp Should Staff Asses. Mental St.: No CAM Mental Status Change/Baseline: 1 Inattention: 2 Disorganized thinkin Altered level of consciousness: 2 OT Short Term Goals Short Term Goals Eatin Oral hygiene: 5 Toileting hygiene: 3 Shower/bathe self: 3 Upper body dressin Lower body dressin Putting on/taking off footwear: 3 OT Materials Supervisor Goals Prison Goals Eating (QC): 6 Oral Hygiene (QC): 6 Toileting Hygiene (QC): 5 Shower/Bathe Self (QC): 5 Upper Body Dressing (QC): 6 Lower Body Dressing (QC): 5 On/Off Footwear (QC): 6 1=Demonstrate adherence to instructed precautions during ADL tasks. 2=Patient will verbalize/demonstrate understanding of assistive devices/modifications for ADL. 3=Patient will improve strength/tolerance for activity to enable patient to perform ADL's. OT Education/Plan Problem List/Assessment Assessment: Decreased Activ Tolerance, Decreased UE Strength, Impaired Coordination, Impaired Funct Balance, Impaired Self-Care Skills Discharge Recommendations Plan/Recommendations: Continue POC Treatment Plan/Plan of Care Treatment,Training & Education: Yes Patient would benefit from OT for education, treatment and training to promote independence in ADL's, mobility, safety and/or upper extremity function for ADL's. Plan of Care: ADL Retraining, Cognitive Retraining, Concurrent Therapy, Functional Mobility, Group Exercise/Act as Ind, UE Funct Exercise/Act Treatment Duration: February 11, 2023 Frequency: 5 times per week Estimated Hrs Per Day: .25 hour per day Agreement: Yes Time Start Time: 11:45 Stop Time: 12:00 DATE: January 27, 2023 Total Time Billed (hr/min): 15 Billed Treatment Time EVM 15 min CATA MALONE OT January 27, 2023 15:03
--- NOTE | 2023-01-27 17:35 | Progress Note - Hospitalist ---
Subjective HPI/CC On Admission Date Seen by Provider: January 27, 2023 Time Seen by Provider: 12:15 Subjective/Events-last exam He is sitting in his chair. He was reportedly confused and agitated this morning. He is alert and oriented on my exam. He denies shortness of breath. He denies pain. Objective Exam Vital Signs Vital Signs Date Time Temp Pulse Resp B/P (MAP) Pulse Ox O2 Delivery O2 Flow Rate FiO2 01/27/23 15:10 98 Room Air 01/27/23 11:41 0.00 01/27/23 08:00 35.7 88 20 130/58 (82) Capillary Refill : General Appearance: No Apparent Distress, WD/WN Respiratory: Lungs Clear, No Respiratory Distress Cardiovascular: Regular Rate, Rhythm, No Murmur Gastrointestinal: Normal Bowel Sounds, Soft Extremity: Normal Inspection, No Pedal Edema Neurologic/Psychiatric: Alert, Normal Mood/Affect Skin: Normal Color, Warm/Dry Results/Procedures Lab Laboratory Tests 01/27/23 09:38 Patient resulted labs reviewed. Imaging: Reviewed Imaging Report Assessment/Plan Assessment and Plan Assess & Plan/Chief Complaint COVID-19 Bacterial pneumonia Likely COPD No longer requiring supplemental oxygen s/p steroids Omnicef and Doxycycline MAT protocol CKD 3a Monitor Chronic wound Follows with wound care, consulted Continue dressing changes Continue Doxycycline HTN CAD BP well controlled so hold home meds RA Continue home pain meds Debility PT/OT DVT ppx: Lovenox Acute respiratory failure with hypoxia, resolved Hyperkalemia, resolved АНДРЕЙ, resolved Hypoglycemia, resolved Diagnosis/Problems Diagnosis/Problems (1) Debility Status: Acute (2) Acute respiratory failure with hypoxia Status: Resolved Resolution Date/Time: 01/27/23 @ 17:35 (3) COVID-19 Status: Acute (4) PNA (pneumonia) Status: Acute (5) Acute kidney injury superimposed on chronic kidney disease Status: Acute (6) Chronic wound of extremity Status: Acute LENO PABON MD January 27, 2023 17:35
[2023-01-27 19:03] VITALS: BP 123/52
[2023-01-27] MEDS: LORazepam 0.5 MG (ATIVAN) TABLET PO PRN (21:59)
[2023-01-28] MEDS: RT-ALBUTEROL HFA 8.5 GM INHALER IH SCH ×3 (03:12→20:08)
[2023-01-28] MEDS: LEVOTHYROXINE 150 MCG (LEVOTHROID) TAB PO SCH (05:44)
[2023-01-28] MEDS: RT-ALBUTEROL HFA 8.5 GM INHALER IH PRN ×2 (06:40→14:48)
[2023-01-28 07:49] VITALS: BP 123/73
[2023-01-28] MEDS: PANTOPRAZOLE 40 MG (PROTONIX) TAB PO SCH (09:04)
[2023-01-28] MEDS: GABAPENTIN 100 MG (NEURONTIN) CAP PO SCH ×2 (09:04→19:39)
[2023-01-28] MEDS: morphine IMMEDIATE RELEASE 15 MG TABLET PO SCH ×3 (09:04→19:39)
--- NOTE | 2023-01-28 10:01 | Physical Therapy Progress Note ---
Therapy Progress Note Patient refuses todays treatment. He reports he is "sick to my stomach" and doesn't feel like moving at the moment. Nurse notified. BILL BRANTLEY PT January 28, 2023 10:01
[2023-01-28] MEDS: ENOXAPARIN 40 MG/0.4 ML (LOVENOX) SYR SQ SCH (13:42)
[2023-01-28 19:22] VITALS: BP 100/56
[2023-01-28] MEDS: LORazepam 0.5 MG (ATIVAN) TABLET PO PRN (23:39)
[2023-01-29 01:22] VITALS: BP 100/56
[2023-01-29] MEDS: LEVOTHYROXINE 150 MCG (LEVOTHROID) TAB PO SCH (05:22)
[2023-01-29 08:00] VITALS: BP 107/63
[2023-01-29] MEDS: GABAPENTIN 100 MG (NEURONTIN) CAP PO SCH ×2 (08:38→19:22)
[2023-01-29] MEDS: PANTOPRAZOLE 40 MG (PROTONIX) TAB PO SCH (08:39)
[2023-01-29] MEDS: morphine IMMEDIATE RELEASE 15 MG TABLET PO SCH ×3 (08:39→19:22)
[2023-01-29] MEDS ORDERED: BISACODYL 10 MG SUPP (DULCOLAX) PR PRN (12:15)
[2023-01-29] MEDS ORDERED: CALCIUM CARBONATE 500 MG (TUMS) TAB.CHEW PO PRN (12:15)
[2023-01-29] MEDS ORDERED: ONDANSETRON 4 MG/2 ML (SDV) Z0FRAN IV PRN (12:15)
[2023-01-29] MEDS ORDERED: ACETAMINOPHEN 325 MG TABLET PO PRN (12:15)
[2023-01-29] MEDS ORDERED: ANTACID SUSP 30 ML UDC (MYLANTA) PO PRN (12:15)
[2023-01-29] MEDS ORDERED: LACTULOSE SYRUP 10GM/15ML (ENULOSE) 30ML UDC PO PRN (12:15)
[2023-01-29] MEDS ORDERED: ONDANSETRON 4 MG (ZOFRAN) ORAL DISSOLVE TAB PO PRN (12:15)
[2023-01-29] MEDS ORDERED: MILK OF MAGNESIA 400 MG/5 ML 30 ML UDC PO PRN (12:15)
[2023-01-29] MEDS: ENOXAPARIN 40 MG/0.4 ML (LOVENOX) SYR SQ SCH (13:35)
[2023-01-29] MEDS: polyethylene glycoL POWDER 17 GM (MIRALAX) PACK PO PRN ×2 (13:37→19:22)
[2023-01-29] MEDS: DOCUSATE SODIUM 100 MG (COLACE) CAP PO SCH (19:22)
[2023-01-29] MEDS: MELATONIN 3 MG TABLET PO PRN (19:22)
[2023-01-29] MEDS: SENNOSIDES 8.6 MG (SENOKOT) TAB PO SCH (19:22)
[2023-01-29 19:57] VITALS: BP 92/54
[2023-01-30] MEDS: LORazepam 0.5 MG (ATIVAN) TABLET PO PRN (00:08)
[2023-01-30] MEDS: LEVOTHYROXINE 150 MCG (LEVOTHROID) TAB PO SCH (05:36)
[2023-01-30 07:23] VITALS: BP 115/59
[2023-01-30] MEDS: morphine IMMEDIATE RELEASE 15 MG TABLET PO SCH ×3 (08:54→19:33)
[2023-01-30] MEDS: DOCUSATE SODIUM 100 MG (COLACE) CAP PO SCH ×2 (08:54→19:33)
[2023-01-30] MEDS: polyethylene glycoL POWDER 17 GM (MIRALAX) PACK PO PRN ×2 (08:54→19:33)
[2023-01-30] MEDS: PANTOPRAZOLE 40 MG (PROTONIX) TAB PO SCH (08:54)
[2023-01-30] MEDS: SENNOSIDES 8.6 MG (SENOKOT) TAB PO SCH ×2 (08:54→19:33)
[2023-01-30] MEDS: GABAPENTIN 100 MG (NEURONTIN) CAP PO SCH ×2 (08:54→19:34)
--- NOTE | 2023-01-30 10:39 | Physical Therapy Daily Note ---
PT Daily Note-Current Subjective Patient agrees to PT. He does states, "My head isn't right." Pain Section J - Health Conditions 1. Rarely or not at all 2. Occasionally 3. Frequently 4. Almost constantly 8. Unable to answer Pain Effect on Sleep: 2 Pain Interference with Therapy: 2 Pain Interference w/Day-to-Day: 2 Mental Status Patient Orientation: Person, Time Transfers SCALE: Activities may be completed with or without assistive devices. 6-Yyqymjsdzm-xjzosjk completes the activity by him/herself with no assistance from a helper. 5-Set-up or Clean-up Assistance-helper sets up or cleans up; patient completes activity. [place] assists only prior to or following the activity. 4-Supervision or Touching Assistance-helper provides verbal cues and/or touching/steadying and/or contact guard assistance as patient completes ac tivity. Assistance may be provided throughout the activity or intermittently. 3-Partial/Moderate Assistance-helper does LESS THAN HALF the effort. Levels lifts, holds or supports trunk or limbs, but provides less than half the effort. 2-Substantial/Maximal Assistance-helper does MORE THAN HALF the effort. Levels lifts or holds trunk or limbs and provides more than half the effort. 4-Vprnqfilt-ckvfyb does ALL the effort. Patient does none of the effort to complete the activity. Or, the assistance of 2 or more helpers is required for the patient to complete the activity. If activity was not attempted, code reason: 7-Patient Refused. 9-Not Applicable-not attempted and the patient did not perform the activity before the current illness, exacerbation or injury. 10-Not Attempted due to Environmental Limitations-(lack of equipment, weather restraints, etc.). 88-Not Attempted due to Medical Conditions or Safety Concerns. Lying to Sitting/Side of Bed(Q: 4 Sit to Stand (QC): 4 Chair/Cgv-dw-Xyzxc Xfer(QC): 4 Weight Bearing Right Lower Extremity: Right Full Weight Bearing Left Lower Extremity: Left Full Weight Bearing Gait Training Distance: 30' Walk 10 feet (QC): 4 Gait Assistive Device: FWW very,very slow, arthritic gait due to RA Exercises Seated Therapy Exercises: Long arc quads Seated Reps: 15 Assessment Patient does require verbal and tactile cues to safely complete all functional tasks. Noted confusion with simple direction. Patient is up in recliner with chair alarm activated. PT to increase activity as tolerated by patient. Patient is no longer on Covid precautions per SWB coordinator. PT Fpc Goals Fpc Goals PT Acquisitions Logistics Analyst Goals Time Frame: February 15, 2023 Roll Left & Right (QC): 6 Sit to Lying (QC): 6 Lying-Sitting on Side/Bed(QC): 6 Sit to Stand (QC): 6 Chair/Xmq-oi-Igntn Xfer(QC): 6 Toilet Transfer (QC): 6 Car Transfer (QC): 6 Does the Patient Walk: Yes Walk 10 feet (QC): 5 Walk 50ft with 2 Turns (QC): 5 Walk 150 ft (QC): 5 Walking 10ft on Uneven Surface: 5 1 Step (curb) (QC): 3 4 Steps (QC): 3 12 Steps (QC): 88 Picking up an Object (QC): 88 Does the Pt use WC or Scooter?: No Wheel 50 feet with 2 turns (QC: 88 Wheel 150 feet: 88 PT Plan Treatment/Plan Treatment Plan: Continue Plan of Care Treatment Plan: Bed Mobility, Education, Functional Activity Juli, Functional Strength, Group Therapy, Gait, Safety, Therapeutic Exercise, Transfers Treatment Duration: February 15, 2023 Frequency: 6 times per week Estimated Hrs Per Day: .25 hour per day Patient and/or Family Agrees t: Yes Time Time In: 1008 Time Out: 1023 DATE: January 30, 2023 Total Billed Treatment Time: 15 Total Billed Treatment 1 visit GT 15 min LIZET SARMIENTO PT January 30, 2023 10:38
--- NOTE | 2023-01-30 11:20 | Occupational Ther Daily Note ---
OT Current Status-Daily Note Subjective Improved participation level, continues w/ confusion Mental Status/Objective Patient Orientation: Person no longer on isolation precautions ADL-Treatment Therapy Code Descriptions/Definitions Functional [place] Measure: 0=Not Assessed/NA 4=Minimal Assistance 1=Total Assistance 5=Supervision or Setup 2=Maximal Assistance 6=Modified [place] 3=Moderate Assistance 7=Complete IndependenceSCALE: Activities may be completed with or without assistive devices. 7-Vfhojxgzmr-cniahzj completes the activity by him/herself with no assistance from a helper. 5-Set-up or Clean-up Assistance-helper sets up or cleans up; patient completes activity. [place] assists only prior to or following the activity. 4-Supervision or Touching Assistance-helper provides verbal cues and/or touching/steadying and/or contact guard assistance as patient completes activity. Assistance may be provided throughout the activity or intermittently. 3-Partial/Moderate Assistance-helper does LESS THAN HALF the effort. [place] lifts, holds or supports trunk or limbs, but provides less than half the effort. 2-Substantial/Maximal Assistance-helper does MORE THAN HALF the effort. [place] lifts or holds trunk or limbs and provides more than half the effort. 2-Pgsbtvhhy-xrqmhn does ALL the effort. Patient does none of the effort to complete the activity. Or, the assistance of 2 or more helpers is required for the patient to complete the activity. If activity was not attempted, code reason: 7-Patient Refused. 9-Not Applicable-not attempted and the patient did not perform the activity before the current illness, exacerbation or injury. 10-Not Attempted due to Environmental Limitations-(lack of equipment, weather restraints, etc.). 88-Not Attempted due to Medical Conditions or Safety Concerns. Eating (QC): 5 (d/t hand deformity requires food to be cut and mugs/cups w/ handles. Requires honey consistency liquids) Oral Hygiene (QC): 4 Shower/Bathe Self (QC): 7 Upper Body Dressing (QC): 3 Lower Body Dressing (QC): 3 On/Off Footwear: 1 Toileting Hygiene (QC): 3 Toilet Transfer (QC): 3 joint contracture noted in large and small joints, able to grasp handles on fWW and GBs and use remotes. Confusion w/ directional instruction noted Education OT Patient Education: Disease process, Modified ADL techniques, Progress toward Goal/Update tx plan, Purpose of tx/functional activities, Reviewed precautions, Rehab process, Safety issues, Transfer techniques Teaching Recipient: Patient Teaching Methods: Demonstration, Discussion Response to Teaching: Reinforcement Needed OT Short Term Goals Short Term Goals Eatin Oral hygiene: 5 Toileting hygiene: 3 Shower/bathe self: 3 Upper body dressin Lower body dressin Putting on/taking off footwear: 3 OT Mechanical Adjuster Goals Detention Goals Acute change in mental status: 1 Inattention: 2 Disorganized thinkin Altered level of consciousness: 2 Eating (QC): 6 Oral Hygiene (QC): 6 Toileting Hygiene (QC): 5 Shower/Bathe Self (QC): 5 Upper Body Dressing (QC): 6 Lower Body Dressing (QC): 5 On/Off Footwear (QC): 6 1=Demonstrate adherence to instructed precautions during ADL tasks. 2=Patient will verbalize/demonstrate understanding of assistive devices/modifications for ADL. 3=Patient will improve strength/tolerance for activity to enable patient to perform ADL's. OT Education/Plan Problem List/Assessment Assessment: Decreased Activ Tolerance, Decreased Safety Aware, Decreased UE Strength, Impaired Self-Care Skills, Restricted Funct UE ROM Discharge Recommendations Plan/Recommendations: Continue POC Treatment Plan/Plan of Care Treatment,Training & Education: Yes Patient would benefit from OT for education, treatment and training to promote independence in ADL's, mobility, safety and/or upper extremity function for ADL's. Plan of Care: ADL Retraining, Cognitive Retraining, Concurrent Therapy, Functional Mobility, Group Exercise/Act as Ind, UE Funct Exercise/Act Treatment Duration: February 11, 2023 Frequency: 5 times per week Estimated Hrs Per Day: .25 hour per day Agreement: Yes Rehab Potential: Fair Remains in recliner w/ al;hussain activate Time Start Time: 10:08 Stop Time: 10:23 DATE: January 30, 2023 Total Time Billed (hr/min): 15 Billed Treatment Time FA co-tx d/t unstable gait and confusion 15 min CATA MALONE OT January 30, 2023 11:20
--- NOTE | 2023-01-30 12:02 | Progress Note - Hospitalist ---
Subjective HPI/CC On Admission Date Seen by Provider: January 30, 2023 Subjective/Events-last exam Pt reports doing ok today. No complaints other than wanting coffee and ice cream. PCT on the way with coffee as we speak. Working with PT but not yet back to baseline. Objective Exam Vital Signs Vital Signs Date Time Temp Pulse Resp B/P (MAP) Pulse Ox O2 Delivery O2 Flow Rate FiO2 01/30/23 09:00 Room Air 01/30/23 07:23 36.5 60 18 115/59 (77) 94 01/29/23 01:22 21 01/27/23 11:41 0.00 Capillary Refill : General Appearance: No Apparent Distress, WD/WN Respiratory: Lungs Clear, No Respiratory Distress Cardiovascular: Regular Rate, Rhythm, No Murmur Neurologic/Psychiatric: Alert, Oriented x3 Results/Procedures Lab Patient resulted labs reviewed. Imaging: Reviewed Imaging Report Assessment/Plan Assessment and Plan Assess & Plan/Chief Complaint COVID-19 Bacterial pneumonia Likely COPD Off oxygen s/p steroids Completed Omnicef and Doxycycline MAT protocol Out of isolation CKD 3a Monitor Chronic wound Follows with wound care, consulted Continue dressing changes HTN CAD BP well controlled so hold home meds RA Continue home pain meds Debility PT/OT Continue SNF upon DC DVT ppx: Lovenox Acute respiratory failure with hypoxia, resolved Hyperkalemia, resolved АНДРЕЙ, resolved Hypoglycemia, resolved NOLBERTO GONZALEZ MD January 30, 2023 12:02
[2023-01-30] MEDS: ENOXAPARIN 40 MG/0.4 ML (LOVENOX) SYR SQ SCH (13:01)
[2023-01-30 19:31] VITALS: BP 101/51
[2023-01-30] MEDS: MELATONIN 3 MG TABLET PO PRN (19:33)
[2023-01-31] MEDS: LORazepam 0.5 MG (ATIVAN) TABLET PO PRN (01:20)
[2023-01-31] MEDS: LEVOTHYROXINE 150 MCG (LEVOTHROID) TAB PO SCH (05:38)
[2023-01-31 07:07] VITALS: BP 110/56
[2023-01-31] MEDS: SENNOSIDES 8.6 MG (SENOKOT) TAB PO SCH ×2 (08:06→20:16)
[2023-01-31] MEDS: DOCUSATE SODIUM 100 MG (COLACE) CAP PO SCH ×2 (08:06→20:16)
[2023-01-31] MEDS: GABAPENTIN 100 MG (NEURONTIN) CAP PO SCH ×2 (08:06→20:20)
[2023-01-31] MEDS: morphine IMMEDIATE RELEASE 15 MG TABLET PO SCH ×3 (08:06→20:20)
[2023-01-31] MEDS: PANTOPRAZOLE 40 MG (PROTONIX) TAB PO SCH (08:06)
--- NOTE | 2023-01-31 10:47 | Physical Therapy Daily Note ---
PT Daily Note-Current Subjective Patient agrees to PT. Pain Section J - Health Conditions 1. Rarely or not at all 2. Occasionally 3. Frequently 4. Almost constantly 8. Unable to answer Pain Effect on Sleep: 2 Pain Interference with Therapy: 2 Pain Interference w/Day-to-Day: 2 Mental Status Patient Orientation: Person, Time Transfers SCALE: Activities may be completed with or without assistive devices. 7-Hoiybtgerp-cahhyia completes the activity by him/herself with no assistance from a helper. 5-Set-up or Clean-up Assistance-helper sets up or cleans up; patient completes activity. [place] assists only prior to or following the activity. 4-Supervision or Touching Assistance-helper provides verbal cues and/or touching/steadying and/or contact guard assistance as patient completes activity. Assistance may be provided throughout the activity or intermittently. 3-Partial/Moderate Assistance-helper does LESS THAN HALF the effort. [place] lifts, holds or supports trunk or limbs, but provides less than half the effort. 2-Substantial/Maximal Assistance-helper does MORE THAN HALF the effort. [place] lifts or holds trunk or limbs and provides more than half the effort. 0-Qlbiidttf-lptmcd does ALL the effort. Patient does none of the effort to complete the activity. Or, the assistance of 2 or more helpers is required for the patient to complete the activity. If activity was not attempted, code reason: 7-Patient Refused. 9-Not Applicable-not attempted and the patient did not perform the activity before the current illness, exacerbation or injury. 10-Not Attempted due to Environmental Limitations-(lack of equipment, weather restraints, etc.). 88-Not Attempted due to Medical Conditions or Safety Concerns. Sit to Stand (QC): 2 (x 2 sets to FWW) Weight Bearing Right Lower Extremity: Right Full Weight Bearing Left Lower Extremity: Left Full Weight Bearing Exercises Seated Therapy Exercises: Sit to stand (2 sets), Long arc quads (15reps x 2 sets), Hip flexion (15 reps x 2 sets) Assessment Patient unable to take steps on this date due to RA. PT to continue to increase activity as tolerated by patient. Patient reports frustration with his inability to ambulate on this date. PT Residential Goals Residential Goals PT Senior Media Director Goals Time Frame: February 15, 2023 Roll Left & Right (QC): 6 Sit to Lying (QC): 6 Lying-Sitting on Side/Bed(QC): 6 Sit to Stand (QC): 6 Chair/Spw-sm-Ykwna Xfer(QC): 6 Toilet Transfer (QC): 6 Car Transfer (QC): 6 Does the Patient Walk: Yes Walk 10 feet (QC): 5 Walk 50ft with 2 Turns (QC): 5 Walk 150 ft (QC): 5 Walking 10ft on Uneven Surface: 5 1 Step (curb) (QC): 3 4 Steps (QC): 3 12 Steps (QC): 88 Picking up an Object (QC): 88 Does the Pt use WC or Scooter?: No Wheel 50 feet with 2 turns (QC: 88 Wheel 150 feet: 88 PT Plan Treatment/Plan Treatment Plan: Continue Plan of Care Treatment Plan: Bed Mobility, Education, Functional Activity Juli, Functional Strength, Group Therapy, Gait, Safety, Therapeutic Exercise, Transfers Treatment Duration: February 15, 2023 Frequency: 6 times per week Estimated Hrs Per Day: .25 hour per day Patient and/or Family Agrees t: Yes Time Time In: 945 Time Out: 1000 DATE: January 31, 2023 Total Billed Treatment Time: 15 Total Billed Treatment 1 visit EX 15 min LIZET SARMIENTO PT January 31, 2023 10:47
[2023-01-31] MEDS: ENOXAPARIN 40 MG/0.4 ML (LOVENOX) SYR SQ SCH (12:47)
--- NOTE | 2023-01-31 13:56 | ST Dysphagia Evaluation ---
Speech Evaluation-General Medical Diagnosis COVID Onset Date: January 26, 2023 Therapy Diagnosis Therapy Diagnosis: Mild Oropharyngeal Dysphagia Precautions Precautions: Fall, Pressure Ulcer, Aspiration Precautions/Isolations: Aspiration, Standard Precautions (Currently.), Pressure Ulcer Referral Referring Physician: Dr. Parsons Reason for Referral: Evaluation/Treatment Medical History Pertinent Medical History: Arthritis, CAD, COPD, GERD, HTN, Hypothroidism, PVD, Rheumatoid Arthritis Reviewed History: Yes Social History Current Living Status: Spouse Speech PLF/Current-Dysphagia Prior Level of Function The patient stated he experiences swallowing difficulties occasionally, describing a globus sensation to the laryngeal region. The patient stated the globus sensation mostly occurs with solid consistencies but can occur with liquids. The patient was admitted on 01/22/23 and was receiving a regular consistency diet with thin liquids. On 01/29/23, the patient was downgraded to a soft and bite size diet consistency with with a mildly thick liquid. Documentation for rationale of downgrade was not present in the medical chart. As the patient has thin liquids at bedside, speech pathology was contacted for clarification and assessment. Subjective The patient was seated in his recliner, awake and alert, upon entrance. Physical therapy and occupational therapy were present in the basilio and offered to re- position the patient for the clinician. During attempts, the patient had been incontinent, therefore, OT and PT to assisted in providing the patient with clean garments. Following OT and PT, the patient was agreeable to participation in the skilled evaluation. Cognitive Status Patient Orientation: Person, Confused Oral Motor Skills Dentition: Edentalous Current Food Consistancy: Dysphagia Soft (SB6), [place] Liquids (Mildly thick) Ability to Follow Directions: Fair Oral Expression Ability: Moderate Impairment Voice Voice Phonatory-Based Quality: Harsh Voice Pitch: Normal Voice Loudness: Normal Face Facial Symmetry: Symmetrical (Grossly symmetrical at rest. ) Oral-Facial Assessment Oral-Facial Dentition: Normal Labial Seal Description: Normal Lingual Protrusion: Normal Lingual ROM: Normal Lingual Strength: Normal Volitional Dry Swallow: Yes Voluntary Cough: Yes Can Clear Throat Volitionally: Yes Productive Cough: Yes Productive Throat Clear: Yes Dysphagia Evaluation Consistencies Presented: Thin Liquid, Mechanical Soft, Pureed Prolonged mastication was exhibited with solid consistencies, however, complete bolus formation was achieved. Laryngeal elevation was present upon the swallow. Dietary Recommendations: Ground (MM5) Liquid Recommendations: Thin Recommendations: - MM5 with thin liquids, as tolerated. - Fully upright and alert for all P.O. intake. - Small bites and sips, only. - Feeding assistance and set up, as necessary. - Crush medication, as necessary, for administration. - Monitor for s/s of suspected aspiration with P.O. intake. If demonstrated, please contact speech pathology. The results and recommendations were provided to the patient and the RN immediately following completion. The results were additionally provided on the in-room white board. Speech Short Term Goals Short Term Goals Short Term Goals 1. The patient and staff will display safe swallowing strategies with 80% accuracy and mild verbal cueing. Time Frame-STG: Three Days. Speech Detention Goals Detention Goals 1. The patient will tolerate the least restrictive diet consistency without s/s of suspected aspiration. Time Frame: One Week. Speech-Plan Treatment Plan Speech Therapy Treatment Plan: Continue Plan of Care Treatment Duration: February 03, 2023 Frequency: 2 times per week Estimated Hrs Per Day: .25 hour per day Rehab Potential: Fair Pt/Family Agrees to Plan: Yes Safety Risks/Education Teaching Recipient: Patient Teaching Methods: Discussion Response to Teaching: Reinforcement Needed Education Topics Provided: Results, Recommendations, Plan of Care, Safe Swallowing Strategies Time Speech Therapy Time In: 14:05 Speech Therapy Time Out: 14:25 DATE: January 31, 2023 Total Billed Time: 20 Billed Treatment Time WILLY DUMONT [facility] January 31, 2023 13:56
--- NOTE | 2023-01-31 14:48 | Occupational Ther Daily Note ---
OT Current Status-Daily Note Subjective OT intervention for positional and garment/toileting tasks for ST session Mental Status/Objective Patient Orientation: Person ADL-Treatment Therapy Code Descriptions/Definitions Functional [place] Measure: 0=Not Assessed/NA 4=Minimal Assistance 1=Total Assistance 5=Supervision or Setup 2=Maximal Assistance 6=Modified [place] 3=Moderate Assistance 7=Complete IndependenceSCALE: Activities may be completed with or without assistive devices. 2-Gjnpbpgcov-qyywgmt completes the activity by him/herself with no assistance from a helper. 5-Set-up or Clean-up Assistance-helper sets up or cleans up; patient completes activity. [place] assists only prior to or following the activity. 4-Supervision or Touching Assistance-helper provides verbal cues and/or touching/steadying and/or contact guard assistance as patient completes activity. Assistance may be provided throughout the activity or intermittently. 3-Partial/Moderate Assistance-helper does LESS THAN HALF the effort. [place] lifts, holds or supports trunk or limbs, but provides less than half the effort. 2-Substantial/Maximal Assistance-helper does MORE THAN HALF the effort. [place] lifts or holds trunk or limbs and provides more than half the effort. 6-Pyptnpfxa-sczsij does ALL the effort. Patient does none of the effort to complete the activity. Or, the assistance of 2 or more helpers is required for the patient to complete the activity. If activity was not attempted, code reason: 7-Patient Refused. 9-Not Applicable-not attempted and the patient did not perform the activity be fore the current illness, exacerbation or injury. 10-Not Attempted due to Environmental Limitations-(lack of equipment, weather restraints, etc.). 88-Not Attempted due to Medical Conditions or Safety Concerns. Eating (QC): 4 Oral Hygiene (QC): 4 Shower/Bathe Self (QC): 7 Upper Body Dressing (QC): 3 (gown) Lower Body Dressing (QC): 1 On/Off Footwear: 1 Toileting Hygiene (QC): 1 Toilet Transfer (QC): 2 Education OT Patient Education: Correct positioning, Modified ADL techniques, Progress toward Goal/Update tx plan, Purpose of tx/functional activities, Reviewed precautions, Rehab process, Safety issues, Transfer techniques Teaching Recipient: Patient Teaching Methods: Demonstration, Discussion Response to Teaching: Reinforcement Needed OT Short Term Goals Short Term Goals Eatin Oral hygiene: 5 Toileting hygiene: 3 Shower/bathe self: 3 Upper body dressin Lower body dressin Putting on/taking off footwear: 3 OT System Trainer Goals System Trainer Goals Eating (QC): 6 Oral Hygiene (QC): 6 Toileting Hygiene (QC): 5 Shower/Bathe Self (QC): 5 Upper Body Dressing (QC): 6 Lower Body Dressing (QC): 5 On/Off Footwear (QC): 6 1=Demonstrate adherence to instructed precautions during ADL tasks. 2=Patient will verbalize/demonstrate understanding of assistive devices/modifications for ADL. 3=Patient will improve strength/tolerance for activity to enable patient to perform ADL's. OT Education/Plan Problem List/Assessment Assessment: Decreased Activ Tolerance, Impaired Cognition, Impaired Spool Worker rdination, Impaired Funct Balance, Impaired Self-Care Skills Discharge Recommendations Plan/Recommendations: Continue POC Treatment Plan/Plan of Care Patient would benefit from OT for education, treatment and training to promote independence in ADL's, mobility, safety and/or upper extremity function for ADL's. Plan of Care: ADL Retraining, Cognitive Retraining, Concurrent Therapy, Functional Mobility, Group Exercise/Act as Ind, UE Funct Exercise/Act Treatment Duration: February 11, 2023 Frequency: 5 times per week Estimated Hrs Per Day: .25 hour per day Agreement: Yes Rehab Potential: Fair Time Start Time: 13:46 Stop Time: 14:01 DATE: January 31, 2023 Total Time Billed (hr/min): 15 Billed Treatment Time ADL 15 min CATA MALONE OT January 31, 2023 14:48
[2023-01-31 19:57] VITALS: BP 96/51
[2023-01-31] MEDS: MELATONIN 3 MG TABLET PO PRN (20:20)
[2023-02-01] MEDS: LEVOTHYROXINE 150 MCG (LEVOTHROID) TAB PO SCH (06:17)
[2023-02-01 07:39] VITALS: BP 90/58
[2023-02-01 08:05] VITALS: BP 90/58
[2023-02-01] MEDS: PANTOPRAZOLE 40 MG (PROTONIX) TAB PO SCH (08:32)
[2023-02-01] MEDS: GABAPENTIN 100 MG (NEURONTIN) CAP PO SCH ×2 (08:32→20:04)
[2023-02-01] MEDS: morphine IMMEDIATE RELEASE 15 MG TABLET PO SCH ×3 (08:32→20:04)
[2023-02-01] MEDS: SENNOSIDES 8.6 MG (SENOKOT) TAB PO SCH ×2 (08:32→20:04)
[2023-02-01] MEDS: DOCUSATE SODIUM 100 MG (COLACE) CAP PO SCH ×2 (08:32→20:04)
--- NOTE | 2023-02-01 11:07 | Occupational Ther Daily Note ---
OT Current Status-Daily Note Subjective A bit sleepy, agreeable to Exercises and a beverage. RN reports recent dressing change Mental Status/Objective Patient Orientation: Person ADL-Treatment Therapy Code Descriptions/Definitions Functional Bond Measure: 0=Not Assessed/NA 4=Minimal Assistance 1=Total Assistance 5=Supervision or Setup 2=Maximal Assistance 6=Modified Bond 3=Moderate Assistance 7=Complete IndependenceSCALE: Activities may be completed with or without assistive devices. 0-Ourvbzbtrc-lmmnpxz completes the activity by him/herself with no assistance from a helper. 5-Set-up or Clean-up Assistance-helper sets up or cleans up; patient completes activity. [place] assists only prior to or following the activity. 4-Supervision or Touching Assistance-helper provides verbal cues and/or touching/steadying and/or contact guard assistance as patient completes activity. Assistance may be provided throughout the activity or intermittently. 3-Partial/Moderate Assistance-helper does LESS THAN HALF the effort. [place] lifts, holds or supports trunk or limbs, but provides less than half the effort. 2-Substantial/Maximal Assistance-helper does MORE THAN HALF the effort. [place] lifts or holds trunk or limbs and provides more than half the effort. 2-Ohhdvpekj-qexwsf does ALL the effort. Patient does none of the effort to complete the activity. Or, the assistance of 2 or more helpers is required for the patient to complete the activity. If activity was not attempted, code reason: 7-Patient Refused. 9-Not Applicable-not attempted and the patient did not perform the activity before the current illness, exacerbation or injury. 10-Not Attempted due to Environmental Limitations-(lack of equipment, weather restraints, etc.). 88-Not Attempted due to Medical Conditions or Safety Concerns. Eating (QC): 5 Oral Hygiene (QC): 7 Other Treatment Agreeable to EXERCISE of BUE and functional reach, OT performed hand hygiene and ROM to joints of hands, elbow and shoulder.Patient tolerates well and reports to OT to tell his nurses HE CAN DO THIS Education OT Patient Education: Exercise program, Modified ADL techniques, Progress toward Goal/Update tx plan, Purpose of tx/functional activities, Rehab process, Safety issues Teaching Recipient: Patient Teaching Methods: Demonstration, Discussion Response to Teaching: Reinforcement Needed OT Short Term Goals Short Term Goals Eatin Oral hygiene: 5 Toileting hygiene: 3 Shower/bathe self: 3 Upper body dressin Lower body dressin Putting on/taking off footwear: 3 OT Probation Worker Goals Probation Worker Goals Acute change in mental status: 1 Inattention: 2 Disorganized thinkin Altered level of consciousness: 2 Eating (QC): 6 Oral Hygiene (QC): 6 Toileting Hygiene (QC): 5 Shower/Bathe Self (QC): 5 Upper Body Dressing (QC): 6 Lower Body Dressing (QC): 5 On/Off Footwear (QC): 6 1=Demonstrate adherence to instructed precautions during ADL tasks. 2=Patient will verbalize/demonstrate understanding of assistive devices/modifications for ADL. 3=Patient will improve strength/tolerance for activity to enable patient to perform ADL's. OT Education/Plan Problem List/Assessment Assessment: Decreased Activ Tolerance, Decreased Safety Aware, Decreased UE Strength, Dependent Transfers, Impaired Cognition, Impaired Coordination, Impaired Funct Balance, Impaired Self-Care Skills Discharge Recommendations Plan/Recommendations: Continue POC Treatment Plan/Plan of Care Patient would benefit from OT for education, treatment and training to promote independence in ADL's, mobility, safety and/or upper extremity function for ADL's. Plan of Care: ADL Retraining, Cognitive Retraining, Concurrent Therapy, Fu nctional Mobility, Group Exercise/Act as Ind, UE Funct Exercise/Act Treatment Duration: February 11, 2023 Frequency: 5 times per week Estimated Hrs Per Day: .25 hour per day Agreement: Yes Rehab Potential: Fair Continues w/ Rec therapy in recliner, all needs met Time Start Time: 10:20 Stop Time: 10:35 DATE: February 01, 2023 Total Time Billed (hr/min): 15 Billed Treatment Time EX 15 min CATA MALONE OT February 01, 2023 11:07
--- NOTE | 2023-02-01 11:31 | Progress Note - Hospitalist ---
Subjective HPI/CC On Admission Date Seen by Provider: February 01, 2023 Subjective/Events-last exam Pt reports doing well. No complaints. Agreeable to SNF placement. Has been to [facility] before and would be ok with going back. Objective Exam Vital Signs Vital Signs Date Time Temp Pulse Resp B/P (MAP) Pulse Ox O2 Delivery O2 Flow Rate FiO2 02/01/23 08:05 35.5 79 93 21 02/01/23 08:01 Room Air 0.00 02/01/23 07:39 20 90/58 (69) Capillary Refill : General Appearance: No Apparent Distress, Chronically ill, Thin Respiratory: Lungs Clear, No Respiratory Distress Cardiovascular: Regular Rate, Rhythm, No Murmur Neurologic/Psychiatric: Alert, Oriented x3 Results/Procedures Lab Patient resulted labs reviewed. Imaging: Reviewed Imaging Report Assessment/Plan Assessment and Plan Assess & Plan/Chief Complaint COVID-19 Bacterial pneumonia Likely COPD Off oxygen s/p steroids Completed Omnicef and Doxycycline MAT protocol Out of isolation CKD 3a Monitor Chronic wound Follows with wound care, consulted Continue dressing changes HTN CAD BP well controlled so hold home meds RA Continue home pain meds Debility PT/OT Likely needs SNF upon DC Social work consulted, appreciate recs DVT ppx: Lovenox Acute respiratory failure with hypoxia, resolved Hyperkalemia, resolved АНДРЕЙ, resolved Hypoglycemia, resolved NOLBERTO GONZALEZ MD February 01, 2023 11:31
[2023-02-01] MEDS: ENOXAPARIN 40 MG/0.4 ML (LOVENOX) SYR SQ SCH (11:49)
--- NOTE | 2023-02-01 12:03 | Speech Therapy Daily Note ---
Speech Daily Progress Note Subjective Date Seen by Provider: February 01, 2023 Time Seen by Provider: 11:20 The patient was seated upright in his recliner, awake and alert, upon entrance to his room by the clinician. The patient greeted the clinician appropriately and was agreeable to participation in the dysphagia treatment session. Objective The patient denied recent s/s of suspected aspiration, including choking, on his current P.O. consistency. S/s of suspected aspiration were reviewed by the clinician, as well as, safe swallowing precautions and recommendations. The patient was agreeable to straw drinks of thin liquid and two teaspoons of applesauce. The patient politely deferred attempts at solid consistencies. Following the second straw drink, the patient does display belching behavior. Overt s/s of suspected aspiration were not displayed with any trials provided. Continue current plan of care. Assessment Assessment Current Status: Fair Progress Treatment Plan Continue Plan of Care Speech Short Term Goals Short Term Goals Short Term Goals 1. The patient and staff will display safe swallowing strategies with 80% accuracy and mild verbal cueing. Time Frame-STG: Three Days. Speech Refrigerating Machine Operator Goals Group Home Goals 1. The patient will tolerate the least restrictive diet consistency without s/s of suspected aspiration. Time Frame: One Week. Speech-Plan Treatment Plan Speech Therapy Treatment Plan: Continue Plan of Care Treatment Duration: February 03, 2023 Frequency: 2 times per week Estimated Hrs Per Day: .25 hour per day Rehab Potential: Fair Pt/Family Agrees to Plan: Yes Safety Risks/Education Teaching Recipient: Patient Teaching Methods: Discussion Response to Teaching: Reinforcement Needed Education Topics Provided: Safe Swallowing Precautions, S/s of Suspected Aspiration Time Speech Therapy Time In: 11:20 Speech Therapy Time Out: 11:35 DATE: February 01, 2023 Total Billed Time: 15 Billed Treatment Time 1WILLY MIRI MUSA February 01, 2023 12:03
--- NOTE | 2023-02-01 15:01 | Physical Therapy Daily Note ---
PT Daily Note-Current Subjective Patient sitting in chair upon PT arrival, agreeable to treatment. Reports pain at 5-6/10 in back currently. Pain Section J - Health Conditions 1. Rarely or not at all 2. Occasionally 3. Frequently 4. Almost constantly 8. Unable to answer Pain Effect on Sleep: 2 Pain Interference with Therapy: 2 Pain Interference w/Day-to-Day: 2 Mental Status Patient Orientation: Person Transfers SCALE: Activities may be completed with or without assistive devices. 3-Vibvmxsxfy-cdyetkd completes the activity by him/herself with no assistance from a helper. 5-Set-up or Clean-up Assistance-helper sets up or cleans up; patient completes activity. [place] assists only prior to or following the activity. 4-Supervision or Touching Assistance-helper provides verbal cues and/or touching/steadying and/or contact guard assistance as patient completes activity. Assistance may be provided throughout the activity or intermittently. 3-Partial/Moderate Assistance-helper does LESS THAN HALF the effort. [place] lifts, holds or supports trunk or limbs, but provides less than half the effort. 2-Substantial/Maximal Assistance-helper does MORE THAN HALF the effort. [place] lifts or holds trunk or limbs and provides more than half the effort. 2-Mwmcimguv-jwuevm does ALL the effort. Patient does none of the effort to compl ete the activity. Or, the assistance of 2 or more helpers is required for the patient to complete the activity. If activity was not attempted, code reason: 7-Patient Refused. 9-Not Applicable-not attempted and the patient did not perform the activity before the current illness, exacerbation or injury. 10-Not Attempted due to Environmental Limitations-(lack of equipment, weather restraints, etc.). 88-Not Attempted due to Medical Conditions or Safety Concerns. Sit to Stand (QC): 3 Chair/Sqk-rs-Gnvhi Xfer(QC): 3 Weight Bearing Right Lower Extremity: Right Full Weight Bearing Left Lower Extremity: Left Full Weight Bearing Gait Training Does the Patient Walk?: Yes Distance: 8 Walk 10 feet (QC): 3 Gait Persons Needed: 1 Gait Assistive Device: FWW Assessment Current Status: Regressing Patient performs all transfers with mod A. He ambulates 8 feet with FWW, with mod/max A and verbal cues. Patient ambulates 8 feet and states "I feel like I need to sit." Chair moved behind patient and patient returned to initial position. Patient in chair post treatment with all needs met, nursing notified, call light in hand and chair alarm activated. PT Retirement Goals Gunite Mixer Goals PT Retirement Goals Time Frame: February 15, 2023 Roll Left & Right (QC): 6 Sit to Lying (QC): 6 Lying-Sitting on Side/Bed(QC): 6 Sit to Stand (QC): 6 Chair/Mjf-du-Hggfo Xfer(QC): 6 Toilet Transfer (QC): 6 Car Transfer (QC): 6 Does the Patient Walk: Yes Walk 10 feet (QC): 5 Walk 50ft with 2 Turns (QC): 5 Walk 150 ft (QC): 5 Walking 10ft on Uneven Surface: 5 1 Step (curb) (QC): 3 4 Steps (QC): 3 12 Steps (QC): 88 Picking up an Object (QC): 88 Does the Pt use WC or Scooter?: No Wheel 50 feet with 2 turns (QC: 88 Wheel 150 feet: 88 PT Plan Treatment/Plan Treatment Plan: Continue Plan of Care Treatment Plan: Bed Mobility, Education, Functional Activity Juli, Functional Strength, Group Therapy, Gait, Safety, Therapeutic Exercise, Transfers Treatment Duration: February 15, 2023 Frequency: 6 times per week Estimated Hrs Per Day: .25 hour per day Patient and/or Family Agrees t: Yes Safety Risks/Education Patient Education: Gait Training, Transfer Techniques Teaching Recipient: Patient Teaching Methods: Demonstration, Discussion Response to Teaching: Reinforcement Needed Time Time In: 1035 Time Out: 1045 DATE: February 01, 2023 Total Billed Treatment Time: 10 Total Billed Treatment Visit, GT BILL BRANTLEY PT February 01, 2023 15:01
[2023-02-01 19:17] VITALS: BP 111/55
[2023-02-02] MEDS: LEVOTHYROXINE 150 MCG (LEVOTHROID) TAB PO SCH (05:23)
[2023-02-02 07:34] VITALS: BP 114/58
[2023-02-02] MEDS: DOCUSATE SODIUM 100 MG (COLACE) CAP PO SCH (09:00)
[2023-02-02] MEDS: morphine IMMEDIATE RELEASE 15 MG TABLET PO SCH (09:00)
[2023-02-02] MEDS: PANTOPRAZOLE 40 MG (PROTONIX) TAB PO SCH (09:00)
[2023-02-02] MEDS: GABAPENTIN 100 MG (NEURONTIN) CAP PO SCH (09:00)
[2023-02-02] MEDS: SENNOSIDES 8.6 MG (SENOKOT) TAB PO SCH (09:00)
--- NOTE | 2023-02-02 09:18 | Discharge Inst-Skilled Nursing ---
Discharge Inst-Skilled NF Consult/Follow Up/Orders Follow Up Appt.: With your PCP in 1-2 weeks. Skilled NF Admit to: [facility] Certification (SNF) I certify that SNF services are required to be given on an inpatient basis because of the above named patient's need for senior living care on a continuing basis for the conditions(s) for which he/she was receiving inpatient hospital services prior to his/her transfer to the SNF. Fpc Facility Order: Nursing Services, Police Inspector-Evaluate & Treat, Physical Therapy-Evaluate & Treat Oxygen Delivery Method: Room Air Discharge Diet: No Restrictions Daily Activity as Tolerated: Yes Resuscitation Status: Do Not Resuscitate New & Resume Previous Orders Nolberto Parsons February 02, 2023 09:15 NOLBERTO PARSONS MD February 02, 2023 09:18
[2023-02-02] MEDS ORDERED: LEVO150T PO (09:23)
[2023-02-02] MEDS ORDERED: TIZA4CAP8 PO (09:23)
[2023-02-02] MEDS ORDERED: IPRA3AMP31 IH (09:23)
[2023-02-02] MEDS ORDERED: AMT10T PO (09:23)
[2023-02-02] MEDS ORDERED: OXYC-556 PO (09:23)
[2023-02-02] MEDS ORDERED: ESOM40CA52 PO (09:23)
[2023-02-02] MEDS ORDERED: CHOL200052 PO (09:23)
[2023-02-02] MEDS ORDERED: GABA-486 PO (09:23)
[2023-02-02] MEDS ORDERED: MORP-68 PO (09:23)
[2023-02-02 09:35] VITALS: BP 114/58
--- NOTE | 2023-02-02 10:15 | Discharge Summary ---
Diagnosis/Chief Complaint Date of Admission January 26, 2023 at 16:28 Date of Discharge Discharge Date: February 02, 2023 Primary Care Ramy Ely MD Discharge Diagnosis (1) Debility Status: Acute (2) Acute respiratory failure with hypoxia Status: Resolved (3) COVID-19 Status: Acute (4) PNA (pneumonia) Status: Acute (5) Acute kidney injury superimposed on chronic kidney disease Status: Acute (6) Chronic wound of extremity Status: Acute Discharge Summary Discharge Physical Exam Allergies: Coded Allergies: Sulfa (Sulfonamide Antibiotics) (Verified Allergy, Mild, GI UPSET, 08/11/17) Vitals & I&Os Vital Signs Date Time Temp Pulse Resp B/P (MAP) Pulse Ox O2 Delivery O2 Flow Rate FiO2 02/02/23 09:35 36.0 75 20 114/58 93 Room Air 0.00 02/01/23 08:05 21 General Appearance: No Apparent Distress, Chronically ill Respiratory: Lungs Clear, No Respiratory Distress Cardiovascular: Regular Rate, Rhythm Neurologic/Psychiatric: Alert, Oriented x3 Hospital Course Patient was admitted to the hospital on swing bed due to debility secondary to COVID. He he had completed steroids and antibiotics. He was seen by physical therapy and Occupational Therapy. He was found to have an elevated TSH so his Synthroid was increased. He remained quite debilitated and so was discharged to SNF for continued therapy. Labs (last 24 hrs) Patient resulted labs reviewed. Imaging: Reviewed Imaging Report Discussion & Recommendations Discharge Planning: >30 minutes discharge planning Discharge Home Medications: Active Scripts Active Synthroid (Levothyroxine Sodium) 150 Mcg Tablet 150 Mcg PO DAILY@0630 Gabapentin 100 Mg Capsule 100 Mg PO BID Esomeprazole Magnesium 40 Mg Capsule.dr 40 Mg PO HS Morphine Sulfate ER (Morphine Sulfate) 15 Mg Tablet.er 15 Mg PO TID Vitamin D3 (Cholecalciferol (Vitamin D3)) 50 Mcg (2000 Unit) Tablet 50 Mcg PO DAILY Tizanidine HCl 4 Mg Capsule 4 Mg PO BID Amitriptyline HCl 10 Mg Tablet 10 Mg PO HS Oxycodone-Acetaminophen 10-325 (Oxycodone HCl/Acetaminophen) 10 Mg-325 Mg Tablet 1 Tab PO TID PRN Iprat-Albut 0.5-3(2.5) mg/3 ml (Ipratropium/Albuterol Sulfate) 0.5 Mg-3 Mg (2.5 Mg Base)/3 Ml Ampul.neb 3 Ml IH Q6H PRN Instructions to patient/family Please see electronic discharge instructions given to patient. ONLBERTO GONZALEZ MD February 02, 2023 10:15
--- NOTE | 2023-02-02 10:41 | Physical Therapy Progress Note ---
Therapy Progress Note Patient adamantly refused therapy stating, "I feel like shit and I feel like being uncooperative today." Swing bed coordinator notified. 1 ref LIZET SARMIENTO PT February 02, 2023 10:41
--- NOTE | 2023-02-02 10:44 | Therapy Team Discharge Summary ---
Therapy Discharge Summary Discharge Recommendations Date of Discharge Physical Therapy Patient seen by skilled PT to address functional strength and mobility. Upon initial evaluation, patient required SBA to min/mod assist with all mobility and was ambulating 40' with FWW. Patient's functional status declined during stay with patient requiring max assist with sit to stand transfer and ambulated 8'. Swing bed coordinator notified. Goals addressed but not attained. Patient will [facility] for continued care. Roll Left to Right (QC): 4 Sit to Lying (QC): 4 Lying to Sitting/Side of Bed(Q: 4 Sit to Stand (QC): 2 Chair/Rlv-lt-Rvixn Xfer(QC): 2 Toilet Transfer (QC): 2 Car Transfer (QC): 88 Does the Patient Walk: Yes Mode of Locomotion: Walk Anticipated Mode of Locomotion: Walk Walk 10 feet (QC): 2 Walk 50 ft with 2 Turns(QC): 88 Walk 150 ft (QC): 88 Walking 10ft on uneven surface: 88 Distance: 8' Gait Assistive Device: FWW Does the Pt Use a Wheelchair: No Wheel 50 ft with 2 turns (QC): 88 Wheel 150 ft (QC): 88 1 Step (curb) (QC): 88 4 Steps (QC): 88 12 Steps (QC): 88 Balance Sitting Static: Good Balance Sitting Dynamic: Good Balance-Standing Static: Fair Picking up an Object (QC): 88 Occupational Therapy Decreased Activ Tolerance, Decreased Safety Aware, Decreased UE Strength, Dependent Transfers, Impaired Cognition, Impaired Coordination, Impaired Funct Balance, Impaired Self-Care Skills Eating (QC): 5 Oral Hygiene (QC): 7 Shower/Bathe Self (QC): 7 Upper Body Dressing (QC): 3 (gown) Lower Body Dressing (QC): 1 On/Off Footwear (QC): 1 Toileting Hygiene (QC): 1 PT Detention Goals Detention Goals PT Detention Goals Time Frame: February 15, 2023 Roll Left to Right (QC): 6 Sit to Lying (QC): 6 Lying-Sitting on Side/Bed(QC): 6 Sit to Stand (QC): 6 Chair/Sac-ya-Genve Xfer(QC): 6 Toilet/Commode Transfer (QC): 6 Car Transfer (QC): 6 Does the Patient Walk: Yes Walk 10 feet (QC): 5 Walk 10ft-Uneven Surface(QC): 5 Walk 50ft with 2 Turns (QC): 5 Walk 150 ft (QC): 5 Does the Pt use WC or Scooter?: No Wheel 50 feet with 2 turns (QC: 88 Wheel 150 feet: 88 1 Step (curb) (QC): 3 4 Steps (QC): 3 12 Steps (QC): 88 Picking up an Object (QC): 88 OT Detention Goals Detention Goals Acute change in mental status: 1 Inattention: 2 Disorganized thinkin Altered level of consciousness: 2 Eating (QC): 6 Oral Hygiene (QC): 6 Toileting Hygiene (QC): 5 Shower/Bathe Self (QC): 5 Upper Body Dressing (QC): 6 Lower Body Dressing (QC): 5 On/Off Footwear (QC): 6 1=Demonstrate adherence to instructed precautions during ADL tasks. 2=Patient will verbalize/demonstrate understanding of assistive devices/modifications for ADL. 3=Patient will improve strength/tolerance for activity to enable patient to perform ADL's. Speech Detention Goals Detention Goals 1. The patient will tolerate the least restrictive diet consistency without s/s of suspected aspiration. Time Frame: One Week. LIZET SARMIENTO PT February 02, 2023 10:44
--- NOTE | 2023-02-02 10:48 | Therapy Team Discharge Summary ---
Therapy Discharge Summary Discharge Recommendations Date of Discharge Physical Therapy Roll Left to Right (QC): 4 Sit to Lying (QC): 4 Lying to Sitting/Side of Bed(Q: 4 Sit to Stand (QC): 2 Chair/Yjh-vy-Oyjyb Xfer(QC): 2 Toilet Transfer (QC): 2 Car Transfer (QC): 88 Does the Patient Walk: Yes Mode of Locomotion: Walk Anticipated Mode of Locomotion: Walk Walk 10 feet (QC): 2 Walk 50 ft with 2 Turns(QC): 88 Walk 150 ft (QC): 88 Walking 10ft on uneven surface: 88 Distance: 8' Gait Assistive Device: FWW Does the Pt Use a Wheelchair: No Wheel 50 ft with 2 turns (QC): 88 Wheel 150 ft (QC): 88 1 Step (curb) (QC): 88 4 Steps (QC): 88 12 Steps (QC): 88 Balance Sitting Static: Good Balance Sitting Dynamic: Good Balance-Standing Static: Fair Picking up an Object (QC): 88 Occupational Therapy Decreased Activ Tolerance, Decreased Safety Aware, Decreased UE Strength, Dependent Transfers, Impaired Cognition, Impaired Coordination, Impaired Funct Balance, Impaired Self-Care Skills Eating (QC): 5 Oral Hygiene (QC): 7 Shower/Bathe Self (QC): 7 Upper Body Dressing (QC): 3 (gown) Lower Body Dressing (QC): 1 On/Off Footwear (QC): 1 Toileting Hygiene (QC): 1 PT [facility] Go[facility] Goals PT Group Home Goals Time Frame: February 15, 2023 Roll Left to Right (QC): 6 Sit to Lying (QC): 6 Lying-Sitting on Side/Bed(QC): 6 Sit to Stand (QC): 6 Chair/Unk-xw-Ccnpm Xfer(QC): 6 Toilet/Commode Transfer (QC): 6 Car Transfer (QC): 6 Does the Patient Walk: Yes Walk 10 feet (QC): 5 Walk 10ft-Uneven Surface(QC): 5 Walk 50ft with 2 Turns (QC): 5 Walk 150 ft (QC): 5 Does the Pt use WC or Scooter?: No Wheel 50 feet with 2 turns (QC: 88 Wheel 150 feet: 88 1 Step (curb) (QC): 3 4 Steps (QC): 3 12 Steps (QC): 88 Picking up an Object (QC): 88 OT [facility] Goals [facility] Goals Acute change in mental status: 1 Inattention: 2 Disorganized thinkin Altered level of consciousness: 2 Eating (QC): 6 Oral Hygiene (QC): 6 Toileting Hygiene (QC): 5 Shower/Bathe Self (QC): 5 Upper Body Dressing (QC): 6 Lower Body Dressing (QC): 5 On/Off Footwear (QC): 6 1=Demonstrate adherence to instructed precautions during ADL tasks. 2=Patient will verbalize/demonstrate understanding of assistive devices/m odifications for ADL. 3=Patient will improve strength/tolerance for activity to enable patient to perform ADL's. Speech Group Home Goals Group Home Goals 1. The patient will tolerate the least restrictive diet consistency without s/s of suspected aspiration. Time Frame: One Week. CATA MALONE OT February 02, 2023 10:48
--- NOTE | 2023-02-02 10:50 | Therapy Team Discharge Summary ---
Therapy Discharge Summary Discharge Recommendations Date of Discharge Physical Therapy Roll Left to Right (QC): 4 Sit to Lying (QC): 4 Lying to Sitting/Side of Bed(Q: 4 Sit to Stand (QC): 2 Chair/Ayj-sl-Qasiu Xfer(QC): 2 Toilet Transfer (QC): 2 Car Transfer (QC): 88 Does the Patient Walk: Yes Mode of Locomotion: Walk Anticipated Mode of Locomotion: Walk Walk 10 feet (QC): 2 Walk 50 ft with 2 Turns(QC): 88 Walk 150 ft (QC): 88 Walking 10ft on uneven surface: 88 Distance: 8' Gait Assistive Device: FWW Does the Pt Use a Wheelchair: No Wheel 50 ft with 2 turns (QC): 88 Wheel 150 ft (QC): 88 1 Step (curb) (QC): 88 4 Steps (QC): 88 12 Steps (QC): 88 Balance Sitting Static: Good Balance Sitting Dynamic: Good Balance-Standing Static: Fair Picking up an Object (QC): 88 Occupational Therapy Patents made little progress w/ therapy, on date of DC patient reports "I am sorry but I am not going to cooperate today" Decreased Activ Tolerance, Decreased Safety Aware, Decreased UE Strength, Dependent Transfers, Impaired Cognition, Impaired Coordination, Impaired Funct Balance, Impaired Self-Care Skills Eating (QC): 5 Oral Hygiene (QC): 7 Shower/Bathe Self (QC): 7 Upper Body Dressing (QC): 3 (gown) Lower Body Dressing (QC): 1 On/Off Footwear (QC): 1 Toileting Hygiene (QC): 1 PT Casino Banker Goals Casino Banker Goals PT Casino Banker Goals Time Frame: February 15, 2023 Roll Left to Right (QC): 6 Sit to Lying (QC): 6 Lying-Sitting on Side/Bed(QC): 6 Sit to Stand (QC): 6 Chair/Uzo-pj-Grmrl Xfer(QC): 6 Toilet/Commode Transfer (QC): 6 Car Transfer (QC): 6 Does the Patient Walk: Yes Walk 10 feet (QC): 5 Walk 10ft-Uneven Surface(QC): 5 Walk 50ft with 2 Turns (QC): 5 Walk 150 ft (QC): 5 Does the Pt use WC or Scooter?: No Wheel 50 feet with 2 turns (QC: 88 Wheel 150 feet: 88 1 Step (curb) (QC): 3 4 Steps (QC): 3 12 Steps (QC): 88 Picking up an Object (QC): 88 OT Casino Banker Goals Alf Goals Acute change in mental status: 1 Inattention: 2 Disorganized thinkin Altered level of consciousness: 2 Eating (QC): 6 Oral Hygiene (QC): 6 Toileting Hygiene (QC): 5 Shower/Bathe Self (QC): 5 Upper Body Dressing (QC): 6 Lower Body Dressing (QC): 5 On/Off Footwear (QC): 6 1=Demonstrate adherence to instructed precautions during ADL tasks. 2=Patient will verbalize/demonstrate understanding of assistive devices/modifi cations for ADL. 3=Patient will improve strength/tolerance for activity to enable patient to perform ADL's. Speech Alf Goals Casino Banker Goals 1. The patient will tolerate the least restrictive diet consistency without s/s of suspected aspiration. Time Frame: One Week. CATA MALONE OT February 02, 2023 10:50
--- NOTE | 2023-02-02 12:11 | Speech Therapy Progress Note ---
Therapy Progress Note The clinician attempted skilled treatment at 0945. At this time, the patient politely refused therapy due to fatigue. ST will continue to reattempt as able. MIRI MUSA February 02, 2023 12:11
== END 2023-02-02 11:30 | DRG 177 ==
LOC: 4TH 16:28
PROVIDERS: ADMIT Internal Medicine; ATTEND Family Medicine
DX: U07.1 COVID-19 (principal); J15.9 Unspecified bacterial pneumonia; J44.9 Chronic obstructive pulmonary disease, unspecified; I12.9 Hypertensive chronic kidney disease with stage 1 through stage 4 chronic kidney disease, or unspecified chronic kidney disease; N18.31 Chronic kidney disease, stage 3a; I25.10 Atherosclerotic heart disease of native coronary artery without angina pectoris; M06.9 Rheumatoid arthritis, unspecified; Z66 Do not resuscitate
CPT/HCPCS: 36415; 80048; 82728; 83540; 83550; 85027; 94640; 94760

== ENCOUNTER 2023-02-27 12:17 | Emergency (ER) | payer MEDICARE, OTHER ==
[~2023-02-27] VITALS: Ht 165.1 cm; Wt 63.5 kg
[~2023-02-27 12:17] MED LIST changes: +LEVO150T PO
[2023-02-27 12:18] VITALS: BP 138/79
--- NOTE | 2023-02-27 12:40 | ED Fall/Injury ---
General Chief Complaint: Trauma-Non Activation Stated Complaint: FALL Nursing Triage Note: PT TO ED BY EMS FROM HOME WITH C/O FALL. PT REPORTS HE WAS TRANSFERRING FROM BED TO WC AND HIS R LEG GAVE OUT, CRAWLED FROM BEDROOM TO PHONE TO CALL EMS. PT STATES HE WOULD HAVE JUST CALLED FOR A LIFT ASSIST, BUT HAS BEEN HAVING INCREASED WEAKNESS AND FALLS RECENTLY. DENIES ANY NEW PAIN. Source: patient Exam Limitations: no limitations History of Present Illness Date Seen by Provider: Feb 27, 2023 Time Seen by Provider: 12:20 Initial Comments 77-year-old male presents to the ER via EMS after a fall. Patient reports that his right leg gave out when he was transferring self from bed to wheelchair. He denies hitting his head, denies loss of consciousness. Denies any pain from the fall. He states that he has had a couple of falls over the last few months. He was recently admitted for COVID, discharged to [facility] for acute care [facility]hab. He was discharged to home last week. Patient states he is here requesting for skilled nursing placement. He currently lives in a duplex with a friend. His friend was at work at the time of the fall. Patient states he was on the ground for approximately 1 hour before EMS arrived. He denies chest pain, shortness of air, abdominal pain, nausea, vomiting, diarrhea, any injury from fall. Reports chronic pain, denies any change in this pain. 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, hypertension, and coronary artery disease Allergies and Home Medications Allergies Coded Allergies: Sulfa (Sulfonamide Antibiotics) (Verified Allergy, Mild, GI UPSET, ) Patient Home Medication List Home Medication List Reviewed: Yes Amitriptyline HCl (Amitriptyline HCl) 10 Mg Tablet, 10 MG PO HS Prescribed by: NOLBERTO GONZALEZ on 02/02/23922 Cholecalciferol (Vitamin D3) (Vitamin D3) 50 Mcg (2000 Unit) Tablet, 50 MCG PO DAILY Prescribed by: NOLBERTO GONZALEZ on 02/02/23922 Esomeprazole Magnesium (Esomeprazole Magnesium) 40 Mg Capsule.dr, 40 MG PO HS Prescribed by: NOLBERTO GONZALEZ on 02/02/23922 Gabapentin (Gabapentin) 100 Mg Capsule, 100 MG PO BID Prescribed by: NOLBERTO GONZALEZ on 02/02/23922 Ipratropium/Albuterol Sulfate (Iprat-Albut 0.5-3(2.5) mg/3 ml) 0.5 Mg-3 Mg (2.5 Mg Base)/3 Ml Ampul.neb, 3 ML IH Q6H PRN for SHORTNESS OF BREATH Prescribed by: NOLBERTO GONZALEZ on 02/02/23922 Levothyroxine Sodium (Synthroid) 150 Mcg Tablet, 150 MCG PO DAILY@0630 Prescribed by: NOLBERTO GONZALEZ on 02/02/23922 Morphine Sulfate (Morphine Sulfate ER) 15 Mg Tablet.er, 15 MG PO TID Prescribed by: NOLBERTO GONZALEZ on 02/02/23923 Oxycodone HCl/Acetaminophen (Oxycodone-Acetaminophen 10-325) 10 Mg-325 Mg Tablet, 1 TAB PO TID PRN for PAIN-MODERATE Prescribed by: NOLBERTO GONZALEZ on 02/02/23923 Tizanidine HCl (Tizanidine HCl) 4 Mg Capsule, 4 MG PO BID Prescribed by: NOLBERTO GONZALEZ on 02/02/23922 Review of Systems Review of Systems Constitutional: see HPI Past Mpcnrin-Joejqc-Yybphq Hx Patient Social History Tobacco Use?: Yes Tobacco type used: Cigarettes Smoking Status: Current Everyday Smoker Use of E-Cig and/or Vaping dev: No Substance use?: No Alcohol Use?: No Pt feels they are or have been: No Immunizations Up To Date Tetanus Booster (TDap): Unknown First/Initial COVID19 Vaccinat: Never had Second COVID19 Vaccination [place]: Never had Third COVID19 Vaccination Date: DECLINED Seasonal Allergies Seasonal Allergies: Yes Past Medical History Surgery/Hospitalization HX: HTN, RA, HYPOTHYROID, CARDIAC STENTS X 2 Left wrist replacement, Left knee replacement, Bowel resection Surgeries: Yes (L KNEE REPLACEMENT, L WRIST, ANGIOPLASTY, colon resection with colostomy) Abdominal, Cardiac, Orthopedic Respiratory: Yes Chronic Bronchitis, COPD, Emphysema Currently Using CPAP: No Currently Using BIPAP: No Cardiac: Yes ( PULMONARY HTN) Chronic Edema/Swelling, Coronary Artery Disease, High Cholesterol, Hypertension, Peripheral Vascular Neurological: No Reproductive Disorders: No Sexually Transmitted Disease: Yes HIV/AIDS: No Genitourinary: No Kidney Stones, Renal Failure Gastrointestinal: Yes (colostomy) Colitis, Gastroesophageal Reflux, Hemorrhoids Musculoskeletal: Yes (BILATERAL OLECRANON BURSITIS) Osteoporosis, Arthritis, Rheumatoid Arthritis Endocrine: Yes Hypothyroidsim HEENT: Yes (GLASSES, DENTURES) Loss of Vision: Bilateral Hearing Impairment: Denies Cancer: No Psychosocial: Yes Anxiety Integumentary: Yes (HX LEG WOUNDS) Eczema, Psoriasis Blood Disorders: Yes (HX ANEMIA) Adverse Reaction/Blood Tranf: No (HAS HAD BLOOD WITH NO REACTION) Family Medical History Patient reports no known family medical history. No Pertinent Family Hx, Diabetes Physical Exam Vital Signs Vital Signs - First Documented 02/27/23 12:18 Temp 36.4 Pulse 88 Resp 14 B/P (MAP) 138/79 (98) Pulse Ox 95 O2 Delivery Room Air Capillary Refill : Less Than 3 Seconds Height, Weight, BMI Height: 5'9.00" Weight: 142lbs. 8.0oz. 64.471190ar; 23.00 BMI Method:Estimated General Appearance: WD/WN, no apparent distress Neck: supple, normal inspection Cardiovascular: regular rate, rhythm Respiratory: lungs clear, normal breath sounds, no respiratory distress, no accessory muscle use Extremities: other (Profound disfigurement of bilateral hands due to rheumatoid arthritis) Neurologic/Psychiatric: alert, normal mood/affect Skin: normal color, warm/dry Procedures/Interventions Date of ETT Placement: Nov 10, 2016 Time of ETT Placement: 2219 Progress/Results/Core Measures Results/Orders Lab Results Laboratory Tests Test 02/27/23 12:50 02/27/23 14:35 Range/Units White Blood Count 10.9 4.3-11.0 10^3/uL Red Blood Count 3.97 L 4.30-5.52 10^6/uL Hemoglobin 10.0 L 13.3-17.7 g/dL Hematocrit 32 L 40-54 % Mean Corpuscular Volume 80 80-99 fL Mean Corpuscular Hemoglobin 25 25-34 pg Mean Corpuscular Hemoglobin Concent 31 L 32-36 g/dL Red Cell Distribution Width 19.0 H 10.0-14.5 % Platelet Count 390 130-400 10^3/uL Mean Platelet Volume 8.9 L 9.0-12.2 fL Immature Granulocyte % (Auto) 0 % Neutrophils (%) (Auto) 71 42-75 % Lymphocytes (%) (Auto) 19 12-44 % Monocytes (%) (Auto) 8 0-12 % Eosinophils (%) (Auto) 1 0-10 % Basophils (%) (Auto) 1 0-10 % Neutrophils # (Auto) 7.8 1.8-7.8 10^3/uL Lymphocytes # (Auto) 2.1 1.0-4.0 10^3/uL Monocytes # (Auto) 0.8 0.0-1.0 10^3/uL Eosinophils # (Auto) 0.1 0.0-0.3 10^3/uL Basophils # (Auto) 0.1 0.0-0.1 10^3/uL Immature Granulocyte # (Auto) 0.0 0.0-0.1 10^3/uL Sodium Level 140 135-145 MMOL/L Potassium Level 4.6 3.6-5.0 MMOL/L Chloride Level 104 98-107 MMOL/L Carbon Dioxide Level 27 21-32 MMOL/L Anion Gap 9 5-14 MMOL/L Blood Urea Nitrogen 16 7-18 MG/DL Creatinine 1.47 H 0.60-1.30 MG/DL Estimat Glomerular Filtration Rate 49 BUN/Creatinine Ratio 11 Glucose Level 95 70-105 MG/DL Calcium Level 9.3 8.5-10.1 MG/DL Corrected Calcium 9.9 8.5-10.1 MG/DL Total Bilirubin 0.2 0.1-1.0 MG/DL Aspartate Amino Transf (AST/SGOT) 16 5-34 U/L Alanine Aminotransferase (ALT/SGPT) 9 0-55 U/L Alkaline Phosphatase 68 40-136 U/L Total Creatine Kinase 73 30-200 U/L Total Protein 6.6 6.4-8.2 GM/DL Albumin 3.2 3.2-4.5 GM/DL Urine Color YELLOW Urine Clarity CLEAR Urine pH 6.5 5-9 Urine Specific [place] <=1.005 1.016-1.022 Urine Protein NEGATIVE NEGATIVE Urine Glucose (UA) NEGATIVE NEGATIVE Urine Ketones NEGATIVE NEGATIVE Urine Nitrite NEGATIVE NEGATIVE Urine Bilirubin NEGATIVE NEGATIVE Urine Urobilinogen 0.2 < = 1.0 MG/DL Urine Leukocyte Esterase NEGATIVE NEGATIVE Urine RBC (Auto) TRACE-I H NEGATIVE Urine RBC RARE /HPF Urine WBC RARE /HPF Urine Crystals NONE /LPF Urine Bacteria NEGATIVE /HPF Urine Casts NONE /LPF Urine Mucus NEGATIVE /LPF Urine Culture Indicated NO My Orders Orders - CHIDI PAREDES APRN Cbc With Automated Diff (02/27/23 12:28) Comprehensive Metabolic Panel (02/27/23 12:28) Ua Culture If Indicated (02/27/23 12:28) Creatine Kinase (02/27/23 12:28) Oxycodone/Acet 10/325mg Tablet (Percocet (02/27/23 13:00) Medications Given in ED Current Medications Medications Dose Ordered Sig/Janeth Route Start Time Stop Time Status Last Admin Dose Admin Oxycodone/ Acetaminophen 1 tab ONCE ONCE PO 02/27/23 13:00 02/27/23 13:01 DC 02/27/23 13:21 1 TAB Vital Signs/I&O 02/27/23 12:18 Temp 36.4 Pulse 88 Resp 14 B/P (MAP) 138/79 (98) Pulse Ox 95 O2 Delivery Room Air Blood Pressure Mean: 98 Progress Progress Note : Progress Note Patient seen and evaluated, resting comfortably in bed, no acute distress. Patient is requesting skilled nursing placement. Will obtain basic labs including CBC, CMP, CK, UA. Social work contacted to help with skilled nursing placement. 1339 Labs reviewed. CBC shows decreased RBCs 3.97, decreased hemoglobin 10.0, decreased hematocrit 32. Previous CBC 1 month ago showed hemoglobin of 10.8, hematocrit 34. CMP shows elevated creatinine 1.47, GFR 49, BUN 16. Previous kidney studies from 1 month ago showed BUN 28, creatinine 1.27, GFR 59. Creatinine kinase normal 73. 1505 UA shows trace RBCs, no concern for infection. Nursing staff contacted director social welfare again to figure out their progress. One of the social workers is going to come down and speak with patient shortly. 1510 social work saw patient. She states that [facility] has been contacted and may be able to take patient today. building service worker is waiting on [facility] to call her back to let her know if he is excepted today. 1730 ER nursing staff contacted [facility] to determine status of placement. They state that patient will not be able to go there tonight, but they will contact patient. This was discussed with patient. He is ready to go home. Patient's friend is at bedside and is able to take him home. Discharge instructions and return precautions provided. Departure Impression Primary Impression: Fall Qualified Codes: W19.XXXA - Unspecified fall, initial encounter Additional Impression: Encounter for examination for admission to skilled nursing Disposition: 01 HOME, SELF-CARE Condition: Stable Departure-Patient Inst. Decision time for Depature: 17:33 Referrals: ZUHAIR JOE MD (PCP/Family) Primary Care Physician Patient Instructions: Preventing Falls ED Add. Discharge Instructions: [facility] will be calling you. If you have any questions you may call our social work at [phone]. Return for any new, concerning, or worsening symptoms. All discharge instructions reviewed with patient and/or family. Voiced understanding. CHIDI PAREDES ADULT PROBATION OFFICER Feb 27, 2023 12:40
[2023-02-27] MEDS ORDERED: oxyCODONE/APAP 10/325MG (PERCOCET 10) TABLET PO ONE (13:00)
[2023-02-27 13:03] LABS: BASOPHILS # (AUTO) 0.1 10^3/uL (0.0-0.1); BASOPHILS % (AUTO) 1 % (0-10); EOSINOPHILS # (AUTO) 0.1 10^3/uL (0.0-0.3); EOSINOPHILS % (AUTO) 1 % (0-10); HEMATOCRIT 32 % (40-54); LYMPHOCYTES # (AUTO) 2.1 10^3/uL (1.0-4.0); LYMPHOCYTES % (AUTO) 19 % (12-44); MEAN CORPUSCULAR HEMOGLOBIN 25 pg (25-34); MEAN CORPUSCULAR HGB CONC 31 g/dL (32-36); MEAN CORPUSCULAR VOLUME 80 fL (80-99); MEAN PLATELET VOLUME 8.9 fL (9.0-12.2); MONOCYTES # (AUTO) 0.8 10^3/uL (0.0-1.0); MONOCYTES % (AUTO) 8 % (0-12); NEUTROPHILS # (AUTO) 7.8 10^3/uL (1.8-7.8); NEUTROPHILS % (AUTO) 71 % (42-75); PLATELET COUNT 390 10^3/uL (130-400); WHITE BLOOD COUNT 10.9 10^3/uL (4.3-11.0)
[2023-02-27 13:13] LABS: ALBUMIN 3.2 GM/DL (3.2-4.5); POTASSIUM 4.6 MMOL/L (3.6-5.0)
[2023-02-27 13:15] LABS: CALCIUM 9.3 MG/DL (8.5-10.1)
[2023-02-27 13:16] LABS: TOTAL PROTEIN 6.6 GM/DL (6.4-8.2)
[2023-02-27 13:17] LABS: BILIRUBIN,TOTAL 0.2 MG/DL (0.1-1.0)
[2023-02-27 13:19] LABS: CREATININE SERUM 1.47 MG/DL (0.60-1.30)
[2023-02-27 14:43] LABS: BILIRUBIN,URINE NEGATIVE (NEGATIVE); CLARITY,URINE CLEAR; COLOR,URINE YELLOW; GLUCOSE, URINE (UA) NEGATIVE (NEGATIVE); KETONES,URINE NEGATIVE (NEGATIVE); LEUKOCYTE ESTERASE ,URINE NEGATIVE (NEGATIVE); NITRITE,URINE NEGATIVE (NEGATIVE); PH,URINE 6.5 (5-9); PROTEIN,URINE NEGATIVE (NEGATIVE)
[2023-02-27 14:51] LABS: BACTERIA,URINE NEGATIVE /HPF; RBC,URINE RARE /HPF; WBC,URINE RARE /HPF
== END 2023-02-27 17:48 | disposition home or self-care (01) ==
LOC: EDUNIT# 12:17 → ER 12:18
DX: Z04.3 Encounter for examination and observation following other accident (principal); Z02.2 Encounter for examination for admission to residential institution; F17.210 Nicotine dependence, cigarettes, uncomplicated; Z86.16 Personal history of COVID-19; Z28.310 Unvaccinated for COVID-19; W19.XXXA Unspecified fall, initial encounter
CPT/HCPCS: 36415; 80053; 81000; 82550; 85025

== ENCOUNTER 2023-04-12 07:18 | Observation (INO) | payer MEDICARE, OTHER ==
[~2023-04-12] VITALS: Ht 165.1 cm; Wt 63.5 kg
--- NOTE | 2023-04-12 07:31 | ED General ---
General Chief Complaint: Lower Extremity Stated Complaint: LEG PAIN | IMMOBILE Source of Information: Patient Exam Limitations: No Limitations History of Present Illness Date Seen by Provider: Apr 12, 2023 Time Seen by Provider: 07:31 Initial Comments Patient is a 77-year-old male who presents to the emergency department with a chief complaint of generalized weakness. Patient states that over the last 3 or 4 days his left leg has started to feel weaker than normal. He feels like he had a "panic attack" this morning as he could not walk. He normally can get himself into a wheelchair and around his apartment but this morning could not do it. He is got chronic lower extremity wounds that have been followed by wound [facility] nurses over the last couple of months. The last time the dressings were changed was on Monday. He denies any increased pain in his legs but they do bother him. He denies known fevers or chills. No change in his cough. He does smoke half pack cigarettes a day. He does not require the use of home oxygen, he does use a nebulizer. No abdominal pain, nausea vomiting diarrhea or urinary complaints. He states the left leg is weak and he cannot bear weight however has great mobility and lifting it lying on the bed. He was at [facility] for a few weeks however decided he did not want to give up his independence and moved back with his friend into an apartment. history of severe disfiguring Rheumatoid Arthritis Not currently on antibiotics. Timing/Duration: 3-4 Days Severity: Moderate Modifying Factors: worse with Movement Associated Systoms: Weakness Allergies and Home Medications Allergies Coded Allergies: Sulfa (Sulfonamide Antibiotics) (Verified Allergy, Mild, GI UPSET, 04/12/23) Patient Home Medication List Home Medication List Reviewed: Yes Esomeprazole Magnesium (Esomeprazole Magnesium) 40 Mg Capsule.dr, 40 MG PO HS Prescribed by: NOLBERTO PARSONS on 02/02/23922 Last Action: Reviewed Gabapentin (Gabapentin) 100 Mg Capsule, 100 MG PO BID Prescribed by: NOLBERTO PARSONS on 02/02/23922 Last Action: Reviewed Ipratropium/Albuterol Sulfate (Iprat-Albut 0.5-3(2.5) mg/3 ml) 0.5 Mg-3 Mg (2.5 Mg Base)/3 Ml Ampul.neb, 3 ML IH Q6H PRN for SHORTNESS OF BREATH Prescribed by: NOLBERTO PARSONS on 02/02/23922 Last Action: Reviewed Levothyroxine Sodium (Synthroid) 150 Mcg Tablet, 150 MCG PO DAILY@0630 Prescribed by: NOLBERTO PARSONS on 02/02/23922 Last Action: Reviewed Morphine Sulfate (Morphine Sulfate ER) 15 Mg Tablet.er, 15 MG PO TID Prescribed by: NOLBERTO PARSONS on 02/02/23923 Last Action: Reviewed Oxycodone HCl/Acetaminophen (Oxycodone-Acetaminophen 10-325) 10 Mg-325 Mg Tablet, 1 TAB PO TID PRN for PAIN-MODERATE Prescribed by: NOLBERTO PARSONS on 02/02/23923 Last Action: Reviewed Tizanidine HCl (Tizanidine HCl) 4 Mg Capsule, 4 MG PO BID Prescribed by: NOLBERTO PARSONS on 02/02/23922 Last Action: Reviewed Discontinued Medications Amitriptyline HCl (Amitriptyline HCl) 10 Mg Tablet, 10 MG PO HS Discontinued Reason: No Longer Taking Prescribed by: NOLBERTO PARSONS on 02/02/23922 Last Action: Discontinued Cholecalciferol (Vitamin D3) (Vitamin D3) 50 Mcg (2000 Unit) Tablet, 50 MCG PO DAILY Discontinued Reason: No Longer Taking Prescribed by: NOLBERTO PARSONS on 02/02/23922 Last Action: Discontinued Review of Systems Review of Systems Constitutional: see HPI, weakness EENTM: no symptoms reported Respiratory: cough (chronic), short of breath Cardiovascular: no symptoms reported Gastrointestinal: no symptoms reported Genitourinary: no symptoms reported Musculoskeletal: joint pain Skin: other (skin wounds lower extremities bilaterally) Psychiatric/Neurological: No Symptoms Reported Past Rdzemxw-Ffrndj-Nmyheu Hx Patient Social History Tobacco Use?: Yes Tobacco type used: Cigarettes Smoking Status: Current Everyday Smoker Use of E-Cig and/or Vaping dev: No Substance use?: No Alcohol Use?: No Pt feels they are or have been: No Immunizations Up To Date Tetanus Booster (TDap): Unknown First/Initial COVID19 Vaccinat: Never had Second COVID19 Vaccination Kalen: Never had Third COVID19 Vaccination Date: DECLINED Seasonal Allergies Seasonal Allergies: Yes Past Medical History Surgery/Hospitalization HX: HTN, RA, HYPOTHYROID, CARDIAC STENTS X 2 Left wrist replacement, Left knee replacement, Bowel resection Surgeries: Yes (L KNEE REPLACEMENT, L WRIST, ANGIOPLASTY, colon resection with colostomy) Abdominal, Cardiac, Orthopedic Respiratory: Yes Chronic Bronchitis, COPD, Emphysema Currently Using CPAP: No Currently Using BIPAP: No Cardiac: Yes ( PULMONARY HTN) Chronic Edema/Swelling, Coronary Artery Disease, High Cholesterol, Hypertension, Peripheral Vascular Neurological: No Reproductive Disorders: No Sexually Transmitted Disease: Yes HIV/AIDS: No Genitourinary: No Kidney Stones, Renal Failure Gastrointestinal: Yes (colostomy) Colitis, Gastroesophageal Reflux, Hemorrhoids Musculoskeletal: Yes (BILATERAL OLECRANON BURSITIS) Osteoporosis, Arthritis, Rheumatoid Arthritis Endocrine: Yes Hypothyroidsim HEENT: Yes (GLASSES, DENTURES) Loss of Vision: Bilateral Hearing Impairment: Denies Cancer: No Psychosocial: Yes Anxiety Integumentary: Yes (HX LEG WOUNDS) Eczema, Psoriasis Blood Disorders: Yes (HX ANEMIA) Adverse Reaction/Blood Tranf: No (HAS HAD BLOOD WITH NO REACTION) Family Medical History Patient reports no known family medical history. No Pertinent Family Hx, Diabetes Physical Exam Vital Signs Vital Signs - First Documented Capillary Refill : Height, Weight, BMI Height: 5'9.00" Weight: 142lbs. 8.0oz. 64.053327lb; 23.00 BMI Method:Estimated General Appearance: No Apparent Distress, WD/WN, Chronically ill Eyes: Bilateral Eye Normal Inspection, Bilateral Eye PERRL, Bilateral Eye EOMI HEENT: PERRL/EOMI, Moist Mucous Membranes Neck: Normal Inspection Respiratory: Lungs Clear, Normal Breath Sounds, No Accessory Muscle Use, No Re spiratory Distress Cardiovascular: Regular Rate, Rhythm, Systolic Murmur Gastrointestinal: Non Tender, Soft Extremity: Normal Capillary Refill, Normal Range of Motion, No Calf Tenderness, Other (rheumatoid disfigurement of both hands; valgus deformity to right knee/lower led;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 Skin: Warm/Dry, Other (large area of open ulceration RLE with yellowish drainage; erythema, swelling and tenderness; left LE has smaller shallow ulcer about 2-3cm with drainage and erythema) Focused Exam Lactate Level 04/12/23 07:45: Lactic Acid Level 2.56*H 04/12/23 10:03: Lactic Acid Level 2.00 Lactic Acid Level Laboratory Tests Test 04/12/23 07:45 04/12/23 10:03 Lactic Acid Level 2.56 MMOL/L (0.50-2.00) *H 2.00 MMOL/L (0.50-2.00) Procedures/Interventions Date of ETT Placement: Nov 10, 2016 Time of ETT Placement: 0 Progress/Results/Core Measures Suspected Sepsis SIRS Temperature: Pulse: Respiratory Rate: Laboratory Tests 04/12/23 07:45: White Blood Count 8.5 Blood Pressure / Mean: 04/12/23 07:45: Lactic Acid Level 2.56*H 04/12/23 10:03: Lactic Acid Level 2.00 Laboratory Tests 04/12/23 07:45: Creatinine 1.39H, INR Comment 1.1, Platelet Count 374, Total Bilirubin 0.2 Results/Orders Lab Results Laboratory Tests Test 04/12/23 07:45 04/12/23 09:42 04/12/23 10:03 Range/Units White Blood Count 8.5 4.3-11.0 10^3/uL Red Blood Count 3.91 L 4.30-5.52 10^6/uL Hemoglobin 9.9 L 13.3-17.7 g/dL Hematocrit 32 L 40-54 % Mean Corpuscular Volume 82 80-99 fL Mean Corpuscular Hemoglobin 25 25-34 pg Mean Corpuscular Hemoglobin Concent 31 L 32-36 g/dL Red Cell Distribution Width 17.4 H 10.0-14.5 % Platelet Count 374 130-400 10^3/uL Mean Platelet Volume 9.1 9.0-12.2 fL Immature Granulocyte % (Auto) 0 % Neutrophils (%) (Auto) 60 42-75 % Lymphocytes (%) (Auto) 29 12-44 % Monocytes (%) (Auto) 7 0-12 % Eosinophils (%) (Auto) 2 0-10 % Basophils (%) (Auto) 1 0-10 % Neutrophils # (Auto) 5.2 1.8-7.8 10^3/uL Lymphocytes # (Auto) 2.5 1.0-4.0 10^3/uL Monocytes # (Auto) 0.6 0.0-1.0 10^3/uL Eosinophils # (Auto) 0.2 0.0-0.3 10^3/uL Basophils # (Auto) 0.1 0.0-0.1 10^3/uL Immature Granulocyte # (Auto) 0.0 0.0-0.1 10^3/uL Prothrombin Time 14.0 12.2-14.7 SEC INR Comment 1.1 0.8-1.4 Activated Partial Thromboplast Time 35 24-35 SEC Sodium Level 138 135-145 MMOL/L Potassium Level 3.6 3.6-5.0 MMOL/L Chloride Level 102 98-107 MMOL/L Carbon Dioxide Level 26 21-32 MMOL/L Anion Gap 10 5-14 MMOL/L Blood Urea Nitrogen 26 H 7-18 MG/DL Creatinine 1.39 H 0.60-1.30 MG/DL Estimat Glomerular Filtration Rate 53 BUN/Creatinine Ratio 19 Glucose Level 165 H 70-105 MG/DL Lactic Acid Level 2.56 *H 2.00 0.50-2.00 MMOL/L Calcium Level 8.8 8.5-10.1 MG/DL Corrected Calcium 9.6 8.5-10.1 MG/DL Total Bilirubin 0.2 0.1-1.0 MG/DL Aspartate Amino Transf (AST/SGOT) 11 5-34 U/L Alanine Aminotransferase (ALT/SGPT) 6 0-55 U/L Alkaline Phosphatase 63 40-136 U/L Total Protein 6.3 L 6.4-8.2 GM/DL Albumin 3.0 L 3.2-4.5 GM/DL Smear Scan YES Urine Color YELLOW Urine Clarity CLEAR Urine pH 6.5 5-9 Urine Specific [place]an 1.010 L 1.016-1.022 Urine Protein NEGATIVE NEGATIVE Urine Glucose (UA) NEGATIVE NEGATIVE Urine Ketones NEGATIVE NEGATIVE Urine Nitrite NEGATIVE NEGATIVE Urine Bilirubin NEGATIVE NEGATIVE Urine Urobilinogen 0.2 < = 1.0 MG/DL Urine Leukocyte Esterase NEGATIVE NEGATIVE Urine RBC (Auto) NEGATIVE NEGATIVE Urine RBC RARE /HPF Urine WBC RARE /HPF Urine Squamous Epithelial Cells RARE /HPF Urine Crystals NONE /LPF Urine Bacteria NEGATIVE /HPF Urine Casts NONE /LPF Urine Mucus NEGATIVE /LPF Urine Culture Indicated NO My Orders Orders - OSCAR BARRERA MD Cbc With Automated Diff (04/12/23 07:40) Comprehensive Metabolic Panel (04/12/23 07:40) Blood Culture (04/12/23 07:40) Sputum Culture (04/12/23 07:40) Urinalysis (04/12/23 07:40) Urine Culture (04/12/23 07:40) Protime With Inr (04/12/23 07:40) Partial Thromboplastin Time (04/12/23 07:40) Chest 1 View, Ap/Pa Only (04/12/23 07:40) Ed Iv/Invasive Line Start (04/12/23 07:40) Ed Iv/Invasive Line Start (04/12/23 07:40) Vital Signs Adult Sepsis Patie Q15M (04/12/23 07:40) O2 (04/12/23 07:40) Remove Rings In Anticipation O (04/12/23 07:40) Lactic Acid Analyzer (04/12/23 07:40) Wound Culture (04/12/23 07:40) Wound Culture (04/12/23 07:40) Cefazolin Injection (Ancef Injection) (04/12/23 09:45) Vancomycin Injection (Vancomycin Injecti (04/12/23 10:00) Ed Admission (Communication) (04/12/23 10:58) General/Regular (04/12/23 Lunch) Hydrocodone/Apap 10/325 Tablet (Hydrocod (04/12/23 12:00) Medications Given in ED Current Medications Medications Dose Ordered Sig/Janeth Route Start Time Stop Time Status Last Admin Dose Admin Acetaminophen/ Hydrocodone Bitart 1 ea ONCE ONCE PO 04/12/23 12:00 04/12/23 12:01 DC 04/12/23 11:59 1 EA Cefazolin Sodium 2000 mg/Sodium Chloride 50 ml @ 100 mls/hr ONCE ONCE IV 04/12/23 09:45 04/12/23 10:14 DC 04/12/23 10:23 100 MLS/HR Vancomycin HCl 1000 mg/Sodium Chloride 250 ml @ 250 mls/hr ONCE ONCE IV 04/12/23 10:00 04/12/23 10:59 DC 04/12/23 10:58 250 MLS/HR Vital Signs/I&O 04/12/23 04/12/23 04/12/23 07:20 07:20 12:02 Temp 36.6 36.6 36.4 Pulse 105 105 82 Resp 16 16 18 B/P (MAP) 106/81 (89) 106/81 112/63 Pulse Ox 94 94 100 O2 Delivery Room Air Room Air Room Air Capillary Refill : Progress Note : Time: 11:00 Progress Note Patient seen and evaluated by me, evaluation today includes physical exam, "septic work-up" to include CBC, Chem-12, lactic acid, urinalysis findings, blood cultures, wound cultures from both lower extremities and single view chest x-ray. Pertinent physical exam findings thin appearing elderly male in no acute distress. He has significant deformity of the bilateral hands secondary to rheumatoid arthritis. Heart is regular, lungs are clear without any respiratory distress, COPD exacerbation. Abdomen is soft. Bilateral lower extremities reveal shallow cellulitic ulcerations. Right is worse than left. He has mild edema to the bilateral lower extremities with increased warmth and tenderness. Distal pulses are intact to the feet. No focal neurologic deficits. Differential diagnosis based on history and physical exam cellulitis, sepsis. Labs independently reviewed and interpreted by me. His CBC shows a white count of 8.5, he is anemic with an hemoglobin of 9.9 hematocrit of 32, platelet count of 374. His "Chem-12 is generally unremarkable with the exception of BUN of 26 and creatinine of 1.39. Per review of old medical records this is at or near his baseline. His lactic acid is elevated at 2.56. Coags are within normal limits. Urinalysis does not reveal any evidence of infection. Chest x-ray as r ead by the radiologist shows no focal infiltrates perfusion there is a question of a new nodule in the lung adjacent to the hilum. Patient is treated in the emergency department for cellulitis with Ancef 2 g and vancomycin 1 g. He did ask for some pain medicine and was given hydrocodone 10 mg tablet. He was tachycardic at presentation but afebrile. No elevated white blood cell count but does have evidence of new infection and technically meeting SIRS criteria. He is not septic at this point. Will be treated for his cellulitis and admitted observation to the medical floor. Case was discussed with Dr. Suni Parsons on for the hospitalist service who accepts the patient for admission. Diagnostic Imaging Diagonstic Imaging: Xray Plain Films/CT/US/NM/MRI: chest Comments [facility] [place], [place] NAME: ALIX BOWEN Maya [facility] REC#: [id number] PT STATUS: REG ER : 1945 PHYSICIAN: OSCAR BARRERA MD ADMIT DATE: 04/12/23/ER Signed Date of Exam:04/12/23 CHEST 1 VIEW, AP/PA ONLY INDICATION: Generalized weakness and sepsis AP view of the chest is obtained with comparison made to the study of 01/22/2023. Overall heart size and pulmonary vascularity are within normal limits. There is bilateral air trapping. Prominent versus markings are seen throughout the lungs. There is a questionable nodular focus just lateral to the left hilum measuring less than 1 cm in diameter. This represents a change from previous exam. No definite pneumothorax or pleural fluid is seen. IMPRESSION: Background air trapping indicating emphysema and probable COPD with possible subcentimeter nodule developing in the left lung just lateral to the hilum. This could be characterized on short-term radiographic follow-up or CT imaging of the chest for assessment. Dictated by: Dictated on workstation # [id number] Dict: 04/12/23 0828 Trans: 04/12/23 0929 EVELYN [id number] Interpreted by: SHEYLA FERNANDEZ MD Electronically signed by: SHEYLA FERNANDEZ MD 04/12/23 0929 Departure Communication (Admissions) Time/Spoke to Admitting Phy: 11:[address] Parsons (hospitalist) accepts obs admission to Med/surg - will do que'd orders Impression Primary Impression: Cellulitis Qualified Codes: L03.115 - Cellulitis of right lower limb Additional Impressions: Anemia Qualified Codes: D64.9 - Anemia, unspecified COPD (chronic obstructive pulmonary disease) Qualified Codes: J44.9 - Chronic obstructive pulmonary disease, unspecified Disposition: ADMITTED INPATIENT Condition: Stable Admissions Decision to Admit Reason: Admit from ER (General) Decision to Admit/Date: Apr 12, 2023 Time/Decision to Admit Time: 11:00 Departure-Patient Inst. Referrals: ZUHAIR JOE MD (PCP/Family) Primary Care Physician OSACR BARRERA MD Apr 12, 2023 07:31
[2023-04-12 08:06] LABS: BASOPHILS # (AUTO) 0.1 10^3/uL (0.0-0.1); BASOPHILS % (AUTO) 1 % (0-10); EOSINOPHILS # (AUTO) 0.2 10^3/uL (0.0-0.3); EOSINOPHILS % (AUTO) 2 % (0-10); HEMATOCRIT 32 % (40-54); HEMOGLOBIN 9.9 g/dL (13.3-17.7); LYMPHOCYTES # (AUTO) 2.5 10^3/uL (1.0-4.0); LYMPHOCYTES % (AUTO) 29 % (12-44); MEAN CORPUSCULAR HEMOGLOBIN 25 pg (25-34); MEAN CORPUSCULAR HGB CONC 31 g/dL (32-36); MEAN CORPUSCULAR VOLUME 82 fL (80-99); MEAN PLATELET VOLUME 9.1 fL (9.0-12.2); MONOCYTES # (AUTO) 0.6 10^3/uL (0.0-1.0); MONOCYTES % (AUTO) 7 % (0-12); NEUTROPHILS # (AUTO) 5.2 10^3/uL (1.8-7.8); NEUTROPHILS % (AUTO) 60 % (42-75); PLATELET COUNT 374 10^3/uL (130-400); SMEAR SCAN COMMENT YES; WHITE BLOOD COUNT 8.5 10^3/uL (4.3-11.0)
[2023-04-12 08:14] LABS: INR 1.1 (0.8-1.4); POTASSIUM 3.6 MMOL/L (3.6-5.0)
[2023-04-12 08:15] LABS: CALCIUM 8.8 MG/DL (8.5-10.1)
[2023-04-12 08:16] LABS: TOTAL PROTEIN 6.3 GM/DL (6.4-8.2)
[2023-04-12 08:18] LABS: BILIRUBIN,TOTAL 0.2 MG/DL (0.1-1.0)
[2023-04-12 08:20] LABS: CREATININE SERUM 1.39 MG/DL (0.60-1.30)
--- NOTE | 2023-04-12 08:36 | Diagnostic Imaging Report ---
INDICATION: Generalized weakness and sepsis AP view of the chest is obtained with comparison made to the study of 01/22/2023. Overall heart size and pulmonary vascularity are within normal limits. There is bilateral air trapping. Prominent versus markings are seen throughout the lungs. There is a questionable nodular focus just lateral to the left hilum measuring less than 1 cm in diameter. This represents a change from previous exam. No definite pneumothorax or pleural fluid is seen. IMPRESSION: Background air trapping indicating emphysema and probable COPD with possible subcentimeter nodule developing in the left lung just lateral to the hilum. This could be characterized on short-term radiographic follow-up or CT imaging of the chest for assessment. Dictated by: Dictated on workstation # [id number]
[2023-04-12] MEDS ORDERED: ceFAZolin INJECTION 2,000 MG in NS (IVPB) 50 ML 50 ML IV ONE (09:45)
[2023-04-12 09:47] LABS: BILIRUBIN,URINE NEGATIVE (NEGATIVE); CLARITY,URINE CLEAR; COLOR,URINE YELLOW; GLUCOSE, URINE (UA) NEGATIVE (NEGATIVE); KETONES,URINE NEGATIVE (NEGATIVE); LEUKOCYTE ESTERASE ,URINE NEGATIVE (NEGATIVE); NITRITE,URINE NEGATIVE (NEGATIVE); PH,URINE 6.5 (5-9); PROTEIN,URINE NEGATIVE (NEGATIVE)
[2023-04-12] MEDS ORDERED: VANCOMYCIN INJECTION 1,000 MG in NS (IVPB) 250 ML 250 ML IV ONE (10:00)
[2023-04-12 10:18] LABS: BACTERIA,URINE NEGATIVE /HPF; RBC,URINE RARE /HPF; SQUAMOUS EPITHELIAL CELL,UR RARE /HPF; WBC,URINE RARE /HPF
[2023-04-12] MEDS ORDERED: HYDROcodone/ACETAMINOPHEN 10/325 TABLET PO ONE (12:00)
[2023-04-12 12:12] VITALS: BP 124/58
[2023-04-12] MEDS ORDERED: ONDANSETRON 4 MG/2 ML (SDV) Z0FRAN IV PRN (12:30)
[2023-04-12] MEDS ORDERED: BISACODYL 10 MG SUPPOSITORY PR PRN (12:30)
[2023-04-12] MEDS ORDERED: ONDANSETRON 4 MG (ZOFRAN) ORAL DISSOLVE TAB PO PRN (12:30)
[2023-04-12] MEDS ORDERED: ANTACID SUSP 30 ML UDC (MYLANTA) PO PRN (12:30)
[2023-04-12] MEDS ORDERED: polyethylene glycoL POWDER 17 GM (MIRALAX) PACK PO PRN (12:30)
[2023-04-12] MEDS ORDERED: MILK OF MAGNESIA 400 MG/5 ML 30 ML UDC PO PRN (12:30)
[2023-04-12] MEDS ORDERED: LACTULOSE SYRUP 10GM/15ML (ENULOSE) 30ML UDC PO PRN (12:30)
[2023-04-12] MEDS ORDERED: VANCOMYCIN INJECTION 0.1 MG in NS (IVPB) 250 ML 250 ML IV SCH (12:30)
[2023-04-12] MEDS ORDERED: CALCIUM CARBONATE 500 MG CHEW TABLET PO PRN (12:30)
[2023-04-12] MEDS: NS IV 1000 ML 1,000 ML IV SCH ×2 (12:46→21:20)
[2023-04-12] MEDS: ENOXAPARIN 40 MG/0.4 ML (LOVENOX) SYR SC SCH (12:47)
--- NOTE | 2023-04-12 13:37 | Occupational Therapy Eval ---
OT Evaluation-General/PLF Medical Diagnosis Admission Date Apr 12, 2023 at 12:02 Medical Diagnosis: LE celulitis Onset Date: Apr 12, 2023 Therapy Diagnosis Therapy Diagnosis: weakness Height/Weight Height (Feet): 5 Height (Inches): 9.00 Weight (Pounds): 142 Weight (Ounces): 8.0 Precautions Precautions/Isolations: Fall Prevention, Standard Precautions Weight Bear Status Weight Bearing Restriction: Weight Bearing/Tolerated Referral Referral Reason: Self Care, Evaluation/Treatment Medical History Pertinent Medical History: Arthritis, CAD, COPD, GERD, HTN, Hypothroidism, PVD, Rheumatoid Arthritis Current History Patient reports inability to move LLE this morning when he attempted to get out of bed. Home health comes for wound care Monday and Monday, patient reports no other therapy services.Previous admission and [facility]. Patietn now at home in duplex w/ room mate, room mate works at [employer] is is gone frequently Reviewed History: Yes Social History Home: Single Level Current Living Status: Friend Entry Into Home: Stairs Without Railing Steps Into Home: 4 Steps Inside Home: 0 ADL-Prior Level of Function SCALE: Activities may be completed with or without assistive devices. 2-Yzpwylgqln-vsdmplo completes the activity by him/herself with no assistance from a helper. 5-Set-up or Clean-up Assistance-helper sets up or cleans up; patient completes activity. [place] assists only prior to or following the activity. 4-Supervision or Touching Assistance-helper provides verbal cues and/or touching/steadying and/or contact guard assistance as patient completes activity. Assistance may be provided throughout the activity or intermittently. 3-Partial/Moderate Assistance-helper does LESS THAN HALF the effort. [place] lifts, holds or supports trunk or limbs, but provides less than half the effort. 2-Substantial/Maximal Assistance-helper does MORE THAN HALF the effort. [place] lifts or holds trunk or limbs and provides more than half the effort. 5-Bzkhsnrjx-tlhgqu does ALL the effort. Patient does none of the effort to complete the activity. Or, the assistance of 2 or more helpers is required for the patient to complete the activity. If activity was not attempted, code reason: 7-Patient Refused. 9-Not Applicable-not attempted and the patient did not perform the activity before the current illness, exacerbation or injury. 10-Not Attempted due to Environmental Limitations-(lack of equipment, weather restraints, etc.). 88-Not Attempted due to Medical Conditions or Safety Concerns. ADL PLOF Comments Perform 1/2 time bathing in tub shower, 1/2 time sponge bathing. Changes clothing when soiled, uses pull overs and elastic garments d/t severe small joint deformity in hands and feet, large joint ROM deficit d/t RA. Primary mode of mobility in home is WC. uses cane for transfers Self Care: Independent Functional Cognition: Independent DME/Equipment: Bath Chair, Grab Bars, Tub/Shower Drive Self: No OT Current Status Subjective Agreeable to participate in therapy, change of own garment to hospital gown and transfer to recliner for lunch, OT provided meal set up Pain Numeric Pain Scale: 4 Location: Right Location Body Site: Knee Mental Status/Objective Patient Orientation: Person, Place, Situation Attachments: IV Current Glasses/Contacts: No Hearing Aids: No Dentures/Partials: Yes (has them but not wearing) Hand Dominance: Right Upper Extremity ROM severe digit deformity, reduced end range in large joints, able to remove pull o viet UB garments Upper Extremity Coordination impaired Upper Extremity Strength +2/5 grossly ADL-Treatment ADL-Current Required set up of opening packets, milk carton and cutting food Eating (QC): 5 Oral Hygiene (QC): 5 Shower/Bathe Self (QC): 7 Upper Body Dressing (QC): 5 Lower Body Dressing (QC): 3 On/Off Footwear (QC): 2 Toileting Hygiene (QC): 3 Education OT Patient Education: Correct positioning, Modified ADL techniques, Progress toward Goal/Update tx plan, Purpose of tx/functional activities, Reviewed precautions, Rehab process, Safety issues, Transfer techniques, Use of adapted equipment Teaching Recipient: Patient Teaching Methods: Demonstration, Discussion Response to Teaching: Verbalize Understanding, Reinforcement Needed OT Supervisor Pressing Department Goals Alf Goals Eating (QC): 6 Oral Hygiene (QC): 6 Toileting Hygiene (QC): 6 Shower/Bathe Self (QC): 5 Upper Body Dressing (QC): 6 Lower Body Dressing (QC): 6 On/Off Footwear (QC): 6 1=Demonstrate adherence to instructed precautions during ADL tasks. 2=Patient will verbalize/demonstrate understanding of assistive devices/modifications for ADL. 3=Patient will improve strength/tolerance for activity to enable patient to perform ADL's. OT Education/Plan Problem List/Assessment Assessment: Decreased Activ Tolerance, Decreased UE Strength, Impaired Coordination, Impaired Funct Balance, Restricted Funct UE ROM Discharge Recommendations Plan/Recommendations: Continue POC Therapy Discharge Recommendati: Post Acute OT Treatment Plan/Plan of Care Treatment,Training & Education: Yes Patient would benefit from OT for education, treatment and training to promote independence in ADL's, mobility, safety and/or upper extremity function for ADL's. Plan of Care: ADL Retraining, Functional Mobility, Group Exercise/Act as Ind, UE Funct Exercise/Act Treatment Duration: Apr 17, 2023 Frequency: 3 times per week (3-5 times per week) Time Start Time: 13:20 Stop Time: 13:45 DATE: Apr 12, 2023 Total Time Billed (hr/min): 25 Billed Treatment Time EVM 1, ADL 1 25 min CATA MALONE OT Apr 12, 2023 13:36
[2023-04-12] MEDS: ACETAMINOPHEN 325 MG TABLET PO PRN ×2 (14:24→21:42)
--- NOTE | 2023-04-12 14:36 | History & Physical-Hospitalist ---
History of Present Illness HPI/Chief Complaint Patient 77-year-old male with past medical history of rheumatoid arthritis, coronary disease, hypertension, hypothyroidism who presented to the emergency department due to leg weakness. He has chronic wounds on his legs and home health follows him for this doing dressing changes. About a week ago he started to think that his left leg was weaker than normal. He he says "it will not move." But he is able to move it freely. When asked to clarify he states it just is not as strong as normal. He was found to have cellulitis of his lower extremities with the right side being worse in the emergency department. He was admitted for IV antibiotics. Source: patient Date Seen 04/12/23 Time Seen by a Provider: 13:30 Attending Physician Ramy Ely MD PCP Admitting Physician: Nolberto Parsons MD Attending Physician: Nolberto Parsons MD Referring Physician Date of Admission Apr 12, 2023 at 12:02 Home Medications & Allergies Home Medications Reviewed patient Home Medication Reconciliation performed by pharmacy medication reconciliations behavioral technician and/or nursing. Patients Allergies have been reviewed. Allergies Allergies Coded Allergies Sulfa (Sulfonamide Antibiotics) (Verified Allergy, Mild, GI UPSET, 04/12/23) Past Dyacqwi-Femmcx-Uyruus Hx Patient Social History Tobacco Use?: Yes Tobacco type used: Cigarettes Smoking Status: Current Everyday Smoker Use of E-Cig and/or Vaping dev: No Substance use?: No Alcohol Use?: No Pt feels they are or have been: No Immunizations Up To Date First/Initial COVID19 Vaccinat: Never had Second COVID19 Vaccination Kal[place]: Never had Tetanus Booster (TDap): More Than 5 Years Hepatitis A: No Hepatitis B: No Date of Pneumonia Vaccine: Aug 08, 2015 Seasonal Allergies Seasonal Allergies: Yes Current Status Advance Directives: Yes Communicates: Verbally Primary Language: Greenlandic Preferred Spoken Language: Greenlandic Is interpretation needed?: No Implanted or Applied Medical D: Orthopedic hardware, Stents Past Medical History Surgeries: Abdominal, Cardiac, Orthopedic Chronic Bronchitis, COPD, Emphysema Currently Using CPAP: No Currently Using BIPAP: No Chronic Edema/Swelling, Coronary Artery Disease, High Cholesterol, Hypertension, Peripheral Vascular Sexually Transmitted Disease: Yes HIV/AIDS: No Kidney Stones, Renal Failure Colitis, Gastroesophageal Reflux, Hemorrhoids Osteoporosis, Arthritis, Rheumatoid Arthritis Hypothyroidsim Loss of Vision: Bilateral Hearing Impairment: Denies Anxiety Eczema, Psoriasis Blood Disorders: Yes (HX ANEMIA) Adverse Reaction/Blood Tranf: No (HAS HAD BLOOD WITH NO REACTION) Family Medical History Patient reports no known family medical history. No Pertinent Family Hx, Diabetes Review of Systems Constitutional: see HPI Physical Exam Physical Exam Vital Signs Vital Signs - First Documented Capillary Refill : Less Than 3 Seconds Height, Weight, BMI Height: 5'9.00" Weight: 142lbs. 8.0oz. 64.460457us; 23.29 BMI Method:Estimated General Appearance: No Apparent Distress, Chronically ill, Thin Respiratory: Lungs Clear, No Respiratory Distress Cardiovascular: Regular Rate, Rhythm, No Murmur Gastrointestinal: Normal Bowel Sounds, Soft Extremity: Other (wounds just dressed in the ER- I did not unwrap at patient request- erythema noted at the edges of the right leg dressing, deformities note d to hands consistent with RA) Results Results/Procedures Labs Laboratory Tests 04/12/23 07:45 04/13/23 05:40 Patient resulted labs reviewed. Imaging: Reviewed Imaging Report Imaging [facility], [place] NAME: ALIX [facility] REC#: [id number] PT STATUS: REG ER : 1945 PHYSICIAN: OSCAR BARRERA MD ADMIT DATE: 04/12/23/ER Signed Date of Exam:04/12/23 CHEST 1 VIEW, AP/PA ONLY INDICATION: Generalized weakness and sepsis AP view of the chest is obtained with comparison made to the study of 01/22/2023. Overall heart size and pulmonary vascularity are within normal limits. There is bilateral air trapping. Prominent versus markings are seen throughout the lungs. There is a questionable nodular focus just lateral to the left hilum measuring less than 1 cm in diameter. This represents a change from previous exam. No definite pneumothorax or pleural fluid is seen. IMPRESSION: Background air trapping indicating emphysema and probable COPD with possible subcentimeter nodule developing in the left lung just lateral to the hilum. This could be characterized on short-term radiographic follow-up or CT imaging of the chest for assessment. Dictated by: Dictated on workstation # [id number] Dict: 04/12/23 0828 Trans: 04/12/23 0929 [facility] [id number] Interpreted by: SHEYLA FERNANDEZ MD Electronically signed by: SHEYLA FERNANDEZ MD 04/12/23 0929 Assessment/Plan Admission Diagnosis Cellulitis Admission Status: Observation Assessment and Plan Cellulitis Continue on IV abx Not septic Wound care consult HTN CAD BP well controlled so hold home antihyptertensives- continue others as appropriate RA Continue home pain meds PT/OT Hypothyroidism Continue synthroid when med rec done DVT ppx: Lovenox Diagnosis/Problems Diagnosis/Problems (1) Cellulitis Qualifiers: Site of cellulitis: extremity Site of cellulitis of extremity: lower extremity Laterality: right Qualified Codes: L03.115 - Cellulitis of right lower limb (2) Debility Status: Acute (3) Hypothyroidism (4) Essential (primary) hypertension Status: Chronic (5) CAD (coronary artery disease) Status: Chronic (6) Rheumatoid arthritis Status: Chronic NOLBERTO PARSONS MD Apr 12, 2023 14:36
[2023-04-12] MEDS ORDERED: ENOXAPARIN 40 MG/0.4 ML (LOVENOX) SYR SQ SCH (14:45)
[2023-04-12 14:50] VITALS: BP 124/58
--- NOTE | 2023-04-12 14:54 | Physical Therapy Evaluation ---
PT Evaluation-General Medical Diagnosis Admission Date Apr 12, 2023 at 12:02 Medical Diagnosis: LE celulitis Onset Date: Apr 12, 2023 Therapy Diagnosis Therapy Diagnosis: Gait deficit, Strength deficit Height/Weight Height (Feet): 5 Height (Inches): 9.00 Weight (Pounds): 142 Weight (Ounces): 8.0 Precautions Precautions/Isolations: Fall Prevention, Standard Precautions Weight Bear Status Right Lower Extremity: Right Full Weight Bearing Left Lower Extremity: Left Full Weight Bearing Referral Physician: Dr. Parsons Reason for Referral: Evaluation/Treatment Medical History Pertinent Medical History: Arthritis, CAD, COPD, GERD, HTN, Hypothroidism, PVD, Rheumatoid Arthritis Reviewed History: Yes Social History Home: Single Level Current Living Status: Friend Entry Into Home: Stairs Without Railing PT Steps Into Home: 4 PT Steps Inside Home: 0 Prior Prior Level of Function SCALE: Activities may be completed with or without assistive devices. 7-Lfzraighpt-zyyaudy completes the activity by him/herself with no assistance from a helper. 5-Set-up or Clean-up Assistance-helper sets up or cleans up; patient completes activity. [place] assists only prior to or following the activity. 4-Supervision or Touching Assistance-helper provides verbal cues and/or touching/steadying and/or contact guard assistance as patient completes activity. Assistance may be provided throughout the activity or intermittently. 3-Partial/Moderate Assistance-helper does LESS THAN HALF the effort. [place] lifts, holds or supports trunk or limbs, but provides less than half the effort. 2-Substantial/Maximal Assistance-helper does MORE THAN HALF the effort. [place] lifts or holds trunk or limbs and provides more than half the effort. 4-Xkvqftnmc-pvwpiq does ALL the effort. Patient does none of the effort to complete the activity. Or, the assistance of 2 or more helpers is required for the patient to complete the activity. If activity was not attempted, code reason: 7-Patient Refused. 9-Not Applicable-not attempted and the patient did not perform the activity before the current illness, exacerbation or injury. 10-Not Attempted due to Environmental Limitations-(lack of equipment, weather restraints, etc.). 88-Not Attempted due to Medical Conditions or Safety Concerns. Bed Mobility: 6 Transfers (B,C,W/C): 6 Gait: 6 Stairs: 6 Indoor Mobility (Ambulation): Independent Stairs: Independent Prior Device Use: Cane PT Evaluation-Current Subjective Patient sitting in chair upon PT arrival, agreeable to treatment. Patient rates pain at 8-9/10 in legs, shoulders, neck. Objective Patient Orientation: Person, Place, Time, Situation Attachments: IV ROM/Strength ROM Lower Extremities LEs limited in Bilateral hips, knees and ankles 10 degrees or more in all planes Strength Lower Extremities 3/5 BLEs all planes Sensory Vision: Functional Hearing: Functional Hand Dominance: Right Sensation Right Lower Extremit: Intact Sensation Left Lower Extremity: Intact Transfers Roll Left to Right (QC): 3 Sit to Lying (QC): 3 Lying to Sitting/Side of Bed(Q: 3 Sit to Stand (QC): 2 Chair/Fld-vp-Ztnpj Xfer(QC): 2 Gait Does the Patient Walk?: No and Walking Goal IS indicated Mode of Locomotion: Both Anticipated Mode of Locomotion: Both Gait Assistive Device: Cane Single Point Balance Sitting Static: Fair Sitting Dynamic: Fair Standing Static: Poor Standing Dynamic: Poor Assessment/Needs Patient tolerated treatment poorly. He requires max A for sit to stand due to weakness however was independent with all transfers premorbid. Patient max A for SPT to bed. Patient in bed post treatment with all needs met, nursing notified, call light in reach, bed alarm activated. Rehab Potential: Poor PT Alf Goals Butadiene Converter Utility Operator Goals PT Alf Goals Time Frame: May 13, 2023 Roll Left & Right (QC): 6 Sit to Lying (QC): 6 Lying-Sitting on Side/Bed(QC): 6 Sit to Stand (QC): 4 Chair/Uqz-ly-Cgyqv Xfer(QC): 4 Toilet Transfer (QC): 4 Does the Patient Walk: Yes Walk 10 feet (QC): 4 Walk 50ft with 2 Turns (QC): 4 Walk 150 ft (QC): 3 1 Step (curb) (QC): 3 4 Steps (QC): 3 PT Plan Problem List Problem List: Activity Tolerance, Functional Strength, Safety, Balance, Gait, Transfer, Bed Mobility, ROM Treatment/Plan Treatment Plan: Continue Plan of Care Treatment Plan: Bed Mobility, Education, Functional Activity Juli, Functional Strength, Group Therapy, Gait, Safety, Therapeutic Exercise, Transfers Treatment Duration: May 18, 2023 Frequency: 6 times per week Estimated Hrs Per Day: .25 hour per day Safety Risks/Education Patient Education: Transfer Techniques Teaching Recipient: Patient Teaching Methods: Demonstration, Discussion Response to Teaching: Verbalize Understanding, Return Demonstration Time Time In: 1346 Time Out: 1405 DATE: Apr 12, 2023 Total Billed Treatment Time: 19 Total Billed Treatment Visit, BILL FAUSTIN PT Apr 12, 2023 14:54
[2023-04-12] MEDS ORDERED: RT-ALBUTEROL/IPRATROPIUM 3 ML (DUONEB) VIAL INH PRN (15:00)
[2023-04-12 15:44] VITALS: BP 130/59
[2023-04-12] MEDS ORDERED: HYPOCHLOROUS ACID/NaCl (VASHE) 250 ML IR SCH (16:00)
[2023-04-12] MEDS: ceFAZolin INJECTION 2,000 MG in NS (IVPB) 50 ML 50 ML IV SCH (17:55)
[2023-04-12] MEDS ORDERED: RT-ALBUTEROL/IPRATROPIUM 3 ML (DUONEB) VIAL IH PRN (18:00)
[2023-04-12] MEDS: oxyCODONE/APAP 10/325MG (PERCOCET 10) TABLET PO PRN (18:00)
--- NOTE | 2023-04-12 18:57 | Wound Care Assessment ---
Wound Care Assessment Date Seen by Provider: Apr 12, 2023 Time Seen by Provider: 15:30 Chief Complaint Bilateral calf ulceration HPI This pleasant 77 year old is well known to my outpatient practice. Benjamin has severe RA with numerous deformities. This complicates his wound care at home as he cannot change dressings on his own and in the past his roommates have not assisted in this matter or transportation also. He does have PAD related to long smoking h/o and had vascular intervention per Dr. Thomas in December. However, he does continue to smoke. His current ulcers have resulted in a cellulitis once again. I am optimistic they will heal with elevation, infection control and conservative wound care. Past Medical History: Admits Peripheral Artery Disease Smoking Status: Current Everyday Smoker Recreational Drug Use: No Alcohol Use: Denies Use Review of Systems Cardiovascular: Edema Musculoskeletal: other (Severe RA with numerous joint deformities) Exam Vital Signs Date Time Temp Pulse Resp B/P (MAP) Pulse Ox O2 Delivery O2 Flow Rate FiO2 04/12/23 18:32 93 Room Air 04/12/23 15:44 36.5 82 18 130/59 (82) Capillary Refill : Less Than 3 Seconds General Appearance: no apparent distress, thin HEENT: other (hearing wnl) Neck: full range of motion Respiratory: no respiratory distress, no accessory muscle use Extremities: pedal edema Neurologic/Psychiatric: alert, normal mood/affect, oriented x 3 Skin Problem Location: lower extremities Skin Character: drainage, erythema, swelling Wound assessment: Bilateral calves with open ulceration. Copious serosanguinous drainage with biofilm and slough. Minimal granulation. Significant edema and erythema Results Laboratory Tests 04/12/23 07:45: White Blood Count 8.5, Red Blood Count 3.91L, Hemoglobin 9.9L, Hematocrit 32L, Mean Corpuscular Volume 82, Mean Corpuscular Hemoglobin 25, Mean Corpuscular Hemoglobin Concent 31L, Red Cell Distribution Width 17.4H, Platelet Count 374, Mean Platelet Volume 9.1, Immature Granulocyte % (Auto) 0, Neutrophils (%) (Auto) 60, Lymphocytes (%) (Auto) 29, Monocytes (%) (Auto) 7, Eosinophils (%) (Auto) 2, Basophils (%) (Auto) 1, Neutrophils # (Auto) 5.2, Lymphocytes # (Auto) 2.5, Monocytes # (Auto) 0.6, Eosinophils # (Auto) 0.2, Basophils # (Auto) 0.1, Immature Granulocyte # (Auto) 0.0, Prothrombin Time 14.0, INR Comment 1.1, Activated Partial Thromboplast Time 35, Sodium Level 138, Potassium Level 3.6, Chloride Level 102, Carbon Dioxide Level 26, Anion Gap 10, Blood Urea Nitrogen 26H, Creatinine 1.39H, Estimat Glomerular Filtration Rate 53, BUN/Creatinine Ratio 19, Glucose Level 165H, Lactic Acid Level 2.56*H, Calcium Level 8.8, Co rrected Calcium 9.6, Total Bilirubin 0.2, Aspartate Amino Transf (AST/SGOT) 11, Alanine Aminotransferase (ALT/SGPT) 6, Alkaline Phosphatase 63, Total Protein 6.3L, Albumin 3.0L, Smear Scan YES 04/12/23 09:42: Urine Color YELLOW, Urine Clarity CLEAR, Urine pH 6.5, Urine Specific [place] 1.010L, Urine Protein NEGATIVE, Urine Glucose (UA) NEGATIVE, Urine Ketones NEGATIVE, Urine Nitrite NEGATIVE, Urine Bilirubin NEGATIVE, Urine Urobilinogen 0.2, Urine Leukocyte Esterase NEGATIVE, Urine RBC (Auto) NEGATIVE, Urine RBC RARE, Urine WBC RARE, Urine Squamous Epithelial Cells RARE, Urine Crystals NONE, Urine Bacteria NEGATIVE, Urine Casts NONE, Urine Mucus NEGATIVE, Urine Culture Indicated NO 04/12/23 10:03: Lactic Acid Level 2.00 Assessment/Plan/Dx Assessment: 1. Nonpressure ulcers bilateral calves 2. PAD 3. Venous HTN with inflammatio bilaterally 4. Cellulitis b/l LE 5. Lymphedema 6. Tobaccoism 7. CKD stage 3 8. Noncompliance in past due to social situation and limited mobility from severe RA Plan: 1. Cleanse with Vashe. Apply silver alginate HF to open areas and barrier to rest of calf. Gauze and roller gauze to secure. Change daily 2. Recent intervention per Dr. Thomas. Consider further workup if he fails to heal. 3. Could consider compression in future 4. Antibiotics per primary 5. Could consider compression in future (as outpatient) 6. Counseled on cessation 7. Defer to primary team 8. May prove difficulty for outpatient wound care in future. MELISSA TORRES MD Apr 12, 2023 18:57
[2023-04-12 19:39] VITALS: BP 114/59
[2023-04-12] MEDS: FLUTICASONE NASAL SPRAY (FLONASE) 16 GM BTL NS SCH (20:01)
[2023-04-12] MEDS: morphine ER 15 MG (MS CONTIN) TAB PO SCH (20:02)
[2023-04-12] MEDS: GABAPENTIN 100 MG (NEURONTIN) CAP PO SCH (20:02)
[2023-04-12] MEDS: RT-ALBUTEROL/IPRATROPIUM 3 ML (DUONEB) VIAL INH SCH (21:22)
[2023-04-12] MEDS: MELATONIN 3 MG TABLET PO PRN (21:42)
[2023-04-13] VITALS (7 sets, daily range): BP systolic 92–131; BP diastolic 55–65
[2023-04-13] MEDS: ceFAZolin INJECTION 2,000 MG in NS (IVPB) 50 ML 50 ML IV SCH ×3 (01:56→17:20)
[2023-04-13] MEDS: RT-ALBUTEROL/IPRATROPIUM 3 ML (DUONEB) VIAL INH SCH ×4 (04:10→21:56)
[2023-04-13] MEDS: oxyCODONE/APAP 10/325MG (PERCOCET 10) TABLET PO PRN ×2 (05:08→21:19)
[2023-04-13] MEDS: LEVOTHYROXINE 150 MCG (LEVOTHROID) TAB PO SCH (05:08)
[2023-04-13] MEDS: NS IV 1000 ML 1,000 ML IV SCH ×3 (05:58→20:31)
[2023-04-13 05:59] LABS: HEMATOCRIT 27 % (40-54); HEMOGLOBIN 8.5 g/dL (13.3-17.7); MEAN CORPUSCULAR HEMOGLOBIN 25 pg (25-34); MEAN CORPUSCULAR HGB CONC 31 g/dL (32-36); MEAN CORPUSCULAR VOLUME 81 fL (80-99); MEAN PLATELET VOLUME 9.2 fL (9.0-12.2); PLATELET COUNT 337 10^3/uL (130-400); WHITE BLOOD COUNT 7.3 10^3/uL (4.3-11.0)
[2023-04-13 06:15] LABS: POTASSIUM 3.9 MMOL/L (3.6-5.0)
[2023-04-13 06:16] LABS: CALCIUM 8.4 MG/DL (8.5-10.1)
[2023-04-13 06:20] LABS: CREATININE SERUM 1.27 MG/DL (0.60-1.30)
[2023-04-13] MEDS: GABAPENTIN 100 MG (NEURONTIN) CAP PO SCH ×2 (09:00→20:24)
[2023-04-13] MEDS: PANTOPRAZOLE 20 MG TABLET (PROTONIX) PO SCH (09:00)
[2023-04-13] MEDS: morphine ER 15 MG (MS CONTIN) TAB PO SCH ×3 (09:01→20:24)
[2023-04-13] MEDS: VANCOMYCIN 750 MG/NS 250 ML IVPB IV SCH ×2 (09:01)
[2023-04-13] MEDS: FLUTICASONE NASAL SPRAY (FLONASE) 16 GM BTL NS SCH (09:01)
--- NOTE | 2023-04-13 11:09 | Physical Therapy Progress Note ---
Therapy Progress Note Patient refused treatment due to bilateral LE pain. Patient reports he is refusing all day. LIZET SARMIENTO PT Apr 13, 2023 11:09
--- NOTE | 2023-04-13 12:46 | Occ Therapy Progress Note ---
Therapy Progress Note Patient refused treatment due to bilateral LE pain. Patient reports he is refusing all day. CATA MALONE OT Apr 13, 2023 12:46
[2023-04-13] MEDS: ENOXAPARIN 40 MG/0.4 ML (LOVENOX) SYR SC SCH (12:47)
--- NOTE | 2023-04-13 12:55 | Progress Note - Hospitalist ---
Subjective HPI/CC On Admission Date Seen by Provider: Apr 13, 2023 Patient 77-year-old male with past medical history of rheumatoid arthritis, coronary disease, hypertension, hypothyroidism who presented to the emergency department due to leg weakness. He has chronic wounds on his legs and home health follows him for this doing dressing changes. About a week ago he started to think that his left leg was weaker than normal. He he says "it will not move." But he is able to move it freely. When asked to clarify he states it just is not as strong as normal. He was found to have cellulitis of his lower extremities with the right side being worse in the emergency department. He was admitted for IV antibiotics. Subjective/Events-last exam Pt reports doing ok today. NO complaints. Discussed culture results and awaiting sensitivities. Focused Exam Lactate Level 04/12/23 07:45: Lactic Acid Level 2.56*H 04/12/23 10:03: Lactic Acid Level 2.00 Objective Exam Vital Signs Vital Signs Date Time Temp Pulse Resp B/P (MAP) Pulse Ox O2 Delivery O2 Flow Rate FiO2 04/13/23 08:23 36.7 80 20 120/59 (79) 94 Room Air Capillary Refill : Less Than 3 Seconds General Appearance: No Apparent Distress, Chronically ill Cardiovascular: Regular Rate, Rhythm, No Murmur Gastrointestinal: Normal Bowel Sounds, Soft Extremity: Other (wounds dressed- ertyhema surrounding leg improved) Neurologic/Psychiatric: Alert, Oriented x3 Results/Procedures Lab Laboratory Tests 04/13/23 05:40 Patient resulted labs reviewed. Imaging: Reviewed Imaging Report Assessment/Plan Assessment and Plan Assess & Plan/Chief Complaint Cellulitis Continue on IV abx Not septic Wound care consult Culture with staph aureus- await MRSA HTN CAD BP well controlled so hold home antihyptertensives- continue others as appropriate RA Continue home pain meds PT/OT Hypothyroidism Continue synthroid when med rec done DVT ppx: Lovenox Diagnosis/Problems Diagnosis/Problems (1) Cellulitis Qualifiers: Site of cellulitis: extremity Site of cellulitis of extremity: lower extremity Laterality: right Qualified Codes: L03.115 - Cellulitis of right lower limb (2) Debility Status: Acute (3) Hypothyroidism (4) Essential (primary) hypertension Status: Chronic (5) CAD (coronary artery disease) Status: Chronic (6) Rheumatoid arthritis Status: Chronic NOLBERTO GONZALEZ MD Apr 13, 2023 12:55
[2023-04-13] MEDS: MELATONIN 3 MG TABLET PO PRN (20:24)
[2023-04-14] MEDS: NS IV 1000 ML 1,000 ML IV SCH ×2 (00:15→09:13)
[2023-04-14] MEDS: ceFAZolin INJECTION 2,000 MG in NS (IVPB) 50 ML 50 ML IV SCH ×2 (01:41→11:33)
[2023-04-14] MEDS: RT-ALBUTEROL/IPRATROPIUM 3 ML (DUONEB) VIAL INH SCH ×2 (02:22→08:00)
[2023-04-14 03:39] VITALS: BP 108/64
[2023-04-14] MEDS: LEVOTHYROXINE 150 MCG (LEVOTHROID) TAB PO SCH (06:21)
[2023-04-14] MEDS ORDERED: TROUGH ORDER-PHARMACY XX ONE (08:00)
[2023-04-14 08:05] LABS: HEMATOCRIT 30 % (40-54); HEMOGLOBIN 9.3 g/dL (13.3-17.7); MEAN CORPUSCULAR HEMOGLOBIN 25 pg (25-34); MEAN CORPUSCULAR HGB CONC 31 g/dL (32-36); MEAN CORPUSCULAR VOLUME 81 fL (80-99); PLATELET COUNT 355 10^3/uL (130-400); WHITE BLOOD COUNT 8.4 10^3/uL (4.3-11.0)
[2023-04-14] MEDS: FLUTICASONE NASAL SPRAY (FLONASE) 16 GM BTL NS SCH (08:15)
[2023-04-14] MEDS: morphine ER 15 MG (MS CONTIN) TAB PO SCH ×2 (08:15→12:03)
[2023-04-14] MEDS: PANTOPRAZOLE 20 MG TABLET (PROTONIX) PO SCH (08:15)
[2023-04-14] MEDS: GABAPENTIN 100 MG (NEURONTIN) CAP PO SCH (08:15)
[2023-04-14 08:17] LABS: POTASSIUM 4.1 MMOL/L (3.6-5.0)
[2023-04-14 08:18] LABS: CALCIUM 8.6 MG/DL (8.5-10.1)
[2023-04-14 08:23] LABS: CREATININE SERUM 1.25 MG/DL (0.60-1.30)
[2023-04-14 08:58] VITALS: BP 128/71
[2023-04-14] MEDS: VANCOMYCIN 750 MG/NS 250 ML IVPB IV SCH ×2 (09:13)
--- NOTE | 2023-04-14 09:25 | Physical Therapy Daily Note ---
PT Daily Note-Current Subjective Patient reluctantly agrees to therapy. Patient is very vocal on his level of bilateral LE pain and not wanting to move to increase pain. Patient also voices he wants to go home. Pain Numeric Pain Scale: 10-Worst Possible Pain Location: Right, Left Location Body Site: Hip Pain Description: Chronic Section J - Health Conditions 1. Rarely or not at all 2. Occasionally 3. Frequently 4. Almost constantly 8. Unable to answer Pain Effect on Sleep: 4 Pain Interference with Therapy: 4 Pain Interference w/Day-to-Day: 4 Mental Status Patient Orientation: Normal For Age Attachments: IV Transfers SCALE: Activities may be completed with or without assistive devices. 6-Wvjoqqcfvb-iuzhyzk completes the activity by him/herself with no assistance from a helper. 5-Set-up or Clean-up Assistance-helper sets up or cleans up; patient completes activity. [place] assists only prior to or following the activity. 4-Supervision or Touching Assistance-helper provides verbal cues and/or touching/steadying and/or contact guard assistance as patient completes activity. Assistance may be provided throughout the activity or intermittently. 3-Partial/Moderate Assistance-helper does LESS THAN HALF the effort. [place] lifts, holds or supports trunk or limbs, but provides less than half the effort. 2-Substantial/Maximal Assistance-helper does MORE THAN HALF the effort. [place] lifts or holds trunk or limbs and provides more than half the effort. 2-Jxxxbfcno-xnyvxd does ALL the effort. Patient does none of the effort to complete the activity. Or, the assistance of 2 or more helpers is required for the patient to complete the activity. If activity was not attempted, code reason: 7-Patient Refused. 9-Not Applicable-not attempted and the patient did not perform the activity before the current illness, exacerbation or injury. 10-Not Attempted due to Environmental Limitations-(lack of equipment, weather restraints, etc.). 88-Not Attempted due to Medical Conditions or Safety Concerns. Lying to Sitting/Side of Bed(Q: 4 Sit to Stand (QC): 4 Chair/Zqs-ku-Ufxeb Xfer(QC): 4 Weight Bearing Right Lower Extremity: Right Full Weight Bearing Left Lower Extremity: Left Full Weight Bearing Assessment Able to take 1 step to SPT to recliner with use of FWW. Patient is very frustrated with pain and wanting to be left alone. Patient up in recliner with needs met. PT Prison Goals Prison Goals PT Prison Goals Time Frame: May 13, 2023 Roll Left & Right (QC): 6 Sit to Lying (QC): 6 Lying-Sitting on Side/Bed(QC): 6 Sit to Stand (QC): 4 Chair/Guu-sg-Yeunp Xfer(QC): 4 Toilet Transfer (QC): 4 Does the Patient Walk: Yes Walk 10 feet (QC): 4 Walk 50ft with 2 Turns (QC): 4 Walk 150 ft (QC): 3 1 Step (curb) (QC): 3 4 Steps (QC): 3 PT Plan Treatment/Plan Treatment Plan: Continue Plan of Care Treatment Plan: Bed Mobility, Education, Functional Activity Juli, Functional Strength, Group Therapy, Gait, Safety, Therapeutic Exercise, Transfers Treatment Duration: May 18, 2023 Frequency: 6 times per week Estimated Hrs Per Day: .25 hour per day Time Time In: 830 Time Out: 844 DATE: Apr 14, 2023 Total Billed Treatment Time: 14 Total Billed Treatment 1 visit FA 14 min LIZET SARMIENTO PT Apr 14, 2023 09:25
--- NOTE | 2023-04-14 09:35 | Occupational Ther Daily Note ---
OT Current Status-Daily Note Subjective Requires moderate encouragement to participate d/t low energy level, pain and discomfort Pain Numeric Pain Scale: 6 Comment: pain throughout focus joint pain Mental Status/Objective Patient Orientation: Person, Place, Situation ADL-Treatment OT provided intervention for feeding w/ built up utensil, Patient is unable to attach foam sleeve onto utensils, open packets, open bananas, pour syrup or cut food without assistance or assertive device Therapy Code Descriptions/Definitions Functional [place] Measure: 0=Not Assessed/NA 4=Minimal Assistance 1=Total Assistance 5=Supervision or Setup 2=Maximal Assistance 6=Modified [place] 3=Moderate Assistance 7=Complete IndependenceSCALE: Activities may be completed with or without assistive devices. 7-Zrgiyqwcpn-xfbvipn completes the activity by him/herself with no assistance from a helper. 5-Set-up or Clean-up Assistance-helper sets up or cleans up; patient completes activity. Rogers assists only prior to or following the activity. 4-Supervision or Touching Assistance-helper provides verbal cues and/or touching/steadying and/or contact guard assistance as patient completes activity. Assistance may be provided throughout the activity or intermittently. 3-Partial/Moderate Assistance-helper does LESS THAN HALF the effort. Rogers lifts, holds or supports trunk or limbs, but provides less than half the effort. 2-Substantial/Maximal Assistance-helper does MORE THAN HALF the effort. Rogers lifts or holds trunk or limbs and provides more than half the effort. 6-Srxciozjo-gszrct does ALL the effort. Patient does none of the effort to compl ete the activity. Or, the assistance of 2 or more helpers is required for the patient to complete the activity. If activity was not attempted, code reason: 7-Patient Refused. 9-Not Applicable-not attempted and the patient did not perform the activity before the current illness, exacerbation or injury. 10-Not Attempted due to Environmental Limitations-(lack of equipment, weather restraints, etc.). 88-Not Attempted due to Medical Conditions or Safety Concerns. Eating (QC): 4 Oral Hygiene (QC): 4 Shower/Bathe Self (QC): 7 Upper Body Dressing (QC): 4 Lower Body Dressing (QC): 3 On/Off Footwear: 2 Toileting Hygiene (QC): 2 Toilet Transfer (QC): 4 (w/ FWW, stand pivot transfer) Education OT Patient Education: Correct positioning, Disease process, Modified ADL techniques, Progress toward Goal/Update tx plan, Purpose of tx/functional activities, Reviewed precautions, Rehab process, Safety issues, Transfer techniques Teaching Recipient: Patient Teaching Methods: Demonstration, Discussion Response to Teaching: Verbalize Understanding, Reinforcement Needed OT Halfway Goals Mercerizing Range Feeder Goals Eating (QC): 6 Oral Hygiene (QC): 6 Toileting Hygiene (QC): 6 Shower/Bathe Self (QC): 5 Upper Body Dressing (QC): 6 Lower Body Dressing (QC): 6 On/Off Footwear (QC): 6 1=Demonstrate adherence to instructed precautions during ADL tasks. 2=Patient will verbalize/demonstrate understanding of assistive devices/modifications for ADL. 3=Patient will improve strength/tolerance for activity to enable patient to perform ADL's. OT Education/Plan Problem List/Assessment Assessment: Decreased Activ Tolerance, Decreased UE Strength, Impaired Coordination, Impaired Self-Care Skills Discharge Recommendations Plan/Recommendations: Continue POC Treatment Plan/Plan of Care Patient would benefit from OT for education, treatment and training to promote independence in ADL's, mobility, safety and/or upper extremity function for ADL's. Plan of Care: ADL Retraining, Functional Mobility, Group Exercise/Act as Ind, UE Funct Exercise/Act Treatment Duration: Apr 17, 2023 Frequency: 3 times per week (3-5 times per week) Estimated Hrs Per Day: .25 hour per day Rehab Potential: Poor Time Start Time: 08:30 Stop Time: 08:44 DATE: Apr 14, 2023 Total Time Billed (hr/min): 14 Billed Treatment Time ADL 14 min CATA MALONE OT Apr 14, 2023 09:35
[2023-04-14] MEDS: ENOXAPARIN 40 MG/0.4 ML (LOVENOX) SYR SC SCH (12:03)
[2023-04-14 12:39] VITALS: BP 125/82
[2023-04-14] MEDS ORDERED: CEPH500T PO (13:20)
--- NOTE | 2023-04-14 13:38 | D/C HH Face to Face Order ---
D/C Face to Face Orders Instructions for Patient Via [facility], Patient Instructions/FollowUp: Please continue to take your medications as written. Please follow up with your primary care doctor and with Dr Whitaker to follow Patient: Dr Ely Discharge Diet for Home: No Restrictions Patient Data-Allergies,Ht & Wt Patient Allergies: Coded Allergies: Sulfa (Sulfonamide Antibiotics) (Verified Allergy, Mild, GI UPSET, 04/12/23) Height (Feet): 5 Height (Inches): 9.00 Weight (Pounds): 142 Weight (Ounces): 8.0 Home Health Need/Face to Face Date of Face to Face: Apr 14, 2023 Clinical Findings: Generalized weakness and fatigue I have seen Pt [id number]: Yes Discharged To: Home Diagnosis/Conditions: Cellulitis, lower extremity wound, Patient is Homebound due to: Muscle weakness, Shortness of breath/distress Homebound Status Due to the above stated illness, injury or surgical procedure (medical condition or diagnosis) and associated clinical findings, the patient is homebound because of his/her inability to leave home except with aid of a supportive device and/or person AND leaving the home requires a considerable and taxing effort or is medically contraindicated. Pt req the following assistanc: Aid of another person, Walker Home Health Nursing Orders Home Health Services Order: Nursing Services, Lvn Lpn-Evaluate & Treat, Physical Therapy-Evaluate & Treat, Wound Care-Eval/Treat Home Health Infusion Therapy Line Start Date: Apr 12, 2023 Therapy Orders Therapy Orders: OT (must have SN or PT order), Physical Therapy Therapy Specific Orders: Eval assistive deivces, Teach enviro modifications/safety, Increase strength/endurance Cleanse wound with Vashe. Apply silver alginate HF to open areas and barrier to rest of calf. Gauze and roller gauze to secure. Change daily Certify Stmt I certify that this patient is under my care and that I, a nurse practitioner or a physician; a assistant infant toddler teacher working with me, had a face to face encounter that - meets the physician face to face encounter requirements with this patient as dated. NOLBERTO GONZALEZ MD Apr 14, 2023 13:38
--- NOTE | 2023-04-14 13:42 | Discharge Summary ---
Diagnosis/Chief Complaint Date of Admission Apr 12, 2023 at 12:02 Date of Discharge Discharge Date: Apr 14, 2023 Admission Diagnosis Cellulitis Primary Care Ramy Ely MD Discharge Diagnosis (1) Cellulitis (2) Debility Status: Acute (3) Hypothyroidism (4) Essential (primary) hypertension Status: Chronic (5) CAD (coronary artery disease) Status: Chronic (6) Rheumatoid arthritis Status: Chronic Discharge Summary Discharge Physical Exam Allergies: Coded Allergies: Sulfa (Sulfonamide Antibiotics) (Verified Allergy, Mild, GI UPSET, 04/12/23) Vitals & I&Os Vital Signs Date Time Temp Pulse Resp B/P (MAP) Pulse Ox O2 Delivery O2 Flow Rate FiO2 04/14/23 15:54 36.7 87 18 123/71 (88) 97 Nasal Cannula 3.00 General Appearance: No Apparent Distress, Chronically ill, Thin Respiratory: Lungs Clear Cardiovascular: Regular Rate, Rhythm Skin: Other (wounds covered in gauze) Neurologic/Psychiatric: Alert, Oriented x3 Hospital Course She was admitted to the hospital secondary to cellulitis. He did not meet sepsis criteria. He was treated with IV antibiotics and improved. He was seen by wound care. We did discuss his declining status and my recommendation that he return to a residential. He was very hesitant regarding this. He instead elected to discharge home with his friend and marketing operations manager. Home health was arranged. He was continued on oral antibiotics. I did call and speak with his primary care physician Dr. Ely to update him on this hospitalization. He is to follow-up with Dr. Ely in 1 to 2 weeks. Labs (last 24 hrs) Microbiology 04/12/23 Urine Culture - Final, Complete See Comments No Further Testing 04/12/23 Blood Culture - Preliminary, Resulted No growth 04/12/23 Gram Stain - Final, Complete 04/12/23 Wound Culture - Final, Complete Staphylococcus aureus Corynebacterium striatum Patient resulted labs reviewed. Pending Labs Imaging: Reviewed Imaging Report Discussion & Recommendations Discharge Planning: >30 minutes discharge planning Discharge Home Medications: Active Scripts Active Cephalexin 500 Mg Tablet 500 Mg PO BID Synthroid (Levothyroxine Sodium) 150 Mcg Tablet 150 Mcg PO DAILY@0630 Gabapentin 100 Mg Capsule 100 Mg PO BID Esomeprazole Magnesium 40 Mg Capsule.dr 40 Mg PO HS Morphine Sulfate ER (Morphine Sulfate) 15 Mg Tablet.er 15 Mg PO TID Tizanidine HCl 4 Mg Capsule 4 Mg PO BID Oxycodone-Acetaminophen 10-325 (Oxycodone HCl/Acetaminophen) 10 Mg-325 Mg Tablet 1 Tab PO TID PRN Iprat-Albut 0.5-3(2.5) mg/3 ml (Ipratropium/Albuterol Sulfate) 0.5 Mg-3 Mg (2.5 Mg Base)/3 Ml Ampul.neb 3 Ml IH Q6H PRN Instructions to patient/family Please see electronic discharge instructions given to patient. Copy Copies To 1: Dr Ramy Ely Problem Qualifiers (1) Cellulitis: Site of cellulitis: extremity Site of cellulitis of extremity: lower extremity Laterality: right Qualified Codes: L03.115 - Cellulitis of right lower limb NOLBERTO GONZALEZ MD Apr 14, 2023 13:42
[2023-04-14 15:54] VITALS: BP 123/71
== END 2023-04-14 14:45 | disposition home or self-care (01) ==
LOC: EDUNIT# 07:18 → ER 07:20 → UNDOADMOB 12:02 → 4TH 12:02 → UNDODISOB 04-14 14:45
PROVIDERS: ADMIT Family Medicine; ATTEND Family Medicine
DX: L03.115 Cellulitis of right lower limb (principal); L97.829 Non-pressure chronic ulcer of other part of left lower leg with unspecified severity; L97.819 Non-pressure chronic ulcer of other part of right lower leg with unspecified severity; I73.9 Peripheral vascular disease, unspecified; I89.0 Lymphedema, not elsewhere classified; I10 Essential (primary) hypertension; I25.10 Atherosclerotic heart disease of native coronary artery without angina pectoris; R53.81 Other malaise; E03.9 Hypothyroidism, unspecified; M06.9 Rheumatoid arthritis, unspecified; D64.9 Anemia, unspecified; J44.9 Chronic obstructive pulmonary disease, unspecified; N18.30 Chronic kidney disease, stage 3 unspecified; F17.210 Nicotine dependence, cigarettes, uncomplicated; Z79.890 Hormone replacement therapy; Z79.899 Other long term (current) drug therapy; Z91.198 Patient's noncompliance with other medical treatment and regimen for other reason; Z28.310 Unvaccinated for COVID-19
CPT/HCPCS: 36415; 71045; 80048; 80053; 80202; 81000; 83605; 85025; 85027; 85610; 85730; 87040; 87070; 87077; 87088; 87186; 87205; 94640; 94760; 94761; 96361; 96365; 96366; 96367; 96372; 96376; G0378

== ENCOUNTER 2023-06-07 22:18 | Emergency (ER) | payer MEDICARE, OTHER ==
[~2023-06-07] VITALS: Ht 145 cm; Wt 66.0 kg
[~2023-06-07 22:18] MED LIST changes: +CEPH500T PO
--- NOTE | 2023-06-07 22:24 | ED Respiratory ---
General Stated Complaint: SOA Source: patient, EMS Exam Limitations: no limitations History of Present Illness Date Seen by Provider: Jun 07, 2023 Time Seen by Provider: 22:18 Initial Comments 78-year-old male with past medical history most notable for COPD with home oxygen coming in due to feeling short of breath. Some going on for the past several hours. He did use a breathing treatment at home roughly 6 hours prior to arrival which helped. He has had an increase in productive cough. Denies any fever, chest pain, nausea, vomiting, weakness, numbness, or any other concerns. EMS reports he was 98% on room air, they placed him on 2 L for comfort. Otherwise denying any other acute complaints including no lower extremity swelling or pain, no recent surgery, no recent long travel, no prior history of DVT or PE Allergies and Home Medications Allergies Coded Allergies: Sulfa (Sulfonamide Antibiotics) (Verified Allergy, Mild, GI UPSET, 04/12/23) Patient Home Medication List Home Medication List Reviewed: Yes Cephalexin (Cephalexin) 500 Mg Tablet, 500 MG PO BID Prescribed by: NOLBERTO GONZALEZ on 04/14/23 1320 Doxycycline Hyclate (Doxycycline Hyclate) 100 Mg Tablet, 100 MG PO BID Prescribed by: LONNY THURSTON on 06/07/23 233 Esomeprazole Magnesium (Esomeprazole Magnesium) 40 Mg Capsule.dr, 40 MG PO HS Prescribed by: NOLBERTO GONZALEZ on 02/02/23922 Gabapentin (Gabapentin) 100 Mg Capsule, 100 MG PO BID Prescribed by: NOLBERTO GONZALEZ on 02/02/23922 Ipratropium/Albuterol Sulfate (Iprat-Albut 0.5-3(2.5) mg/3 ml) 0.5 Mg-3 Mg (2.5 Mg Base)/3 Ml Ampul.neb, 3 ML IH Q6H PRN for SHORTNESS OF BREATH Prescribed by: NOLBERTO GONZALEZ on 02/02/23922 Levothyroxine Sodium (Synthroid) 150 Mcg Tablet, 150 MCG PO DAILY@0630 Prescribed by: NOLBERTO GONZALEZ on 02/02/23922 Methylprednisolone (Methylprednisolone Dose Pack) 4 Mg Tab.ds.pk, 4 MG PO UD Prescribed by: LONNY THURSTON on 06/07/23 233 Morphine Sulfate (Morphine Sulfate ER) 15 Mg Tablet.er, 15 MG PO TID Prescribed by: NOLBERTO GONZALEZ on 02/02/23923 Oxycodone HCl/Acetaminophen (Oxycodone-Acetaminophen 10-325) 10 Mg-325 Mg Tablet, 1 TAB PO TID PRN for PAIN-MODERATE Prescribed by: NOLBERTO GONZALEZ on 02/02/23923 Tizanidine HCl (Tizanidine HCl) 4 Mg Capsule, 4 MG PO BID Prescribed by: NOLBERTO GONZALEZ on 02/02/23922 Review of Systems Review of Systems Constitutional: No fever EENTM: no symptoms reported Respiratory: cough, short of breath, wheezing Cardiovascular: No chest pain Gastrointestinal: no symptoms reported Genitourinary: no symptoms reported Musculoskeletal: no symptoms reported Skin: no symptoms reported Psychiatric/Neurological: No Symptoms Reported Hematologic/Lymphatic: No Symptoms Reported Immunological/Allergic: no symptoms reported Past Bmtezqe-Newthu-Dhjrqv Hx Immunizations Up To Date Tetanus Booster (TDap): Unknown First/Initial COVID19 Vaccinat: Never had Second COVID19 Vaccination Kal[place]: Never had Third COVID19 Vaccination Date: DECLINED Seasonal Allergies Seasonal Allergies: Yes Past Medical History Surgery/Hospitalization HX: HTN, RA, HYPOTHYROID, CARDIAC STENTS X 2 Left wrist replacement, Left knee replacement, Bowel resection Surgeries: Yes (L KNEE REPLACEMENT, L WRIST, ANGIOPLASTY, colon resection with colostomy) Abdominal, Cardiac, Orthopedic Respiratory: Yes Chronic Bronchitis, COPD, Emphysema Currently Using CPAP: No Currently Using BIPAP: No Cardiac: Yes ( PULMONARY HTN) Chronic Edema/Swelling, Coronary Artery Disease, High Cholesterol, Hypertension, Peripheral Vascular Neurological: No Reproductive Disorders: No Sexually Transmitted Disease: Yes HIV/AIDS: No Genitourinary: No Kidney Stones, Renal Failure Gastrointestinal: Yes (colostomy) Colitis, Gastroesophageal Reflux, Hemorrhoids Musculoskeletal: Yes (BILATERAL OLECRANON BURSITIS) Osteoporosis, Arthritis, Rheumatoid Arthritis Endocrine: Yes Hypothyroidsim HEENT: Yes (GLASSES, DENTURES) Loss of Vision: Bilateral Hearing Impairment: Denies Cancer: No Psychosocial: Yes Anxiety Integumentary: Yes (HX LEG WOUNDS) Eczema, Psoriasis Blood Disorders: Yes (HX ANEMIA) Adverse Reaction/Blood Tranf: No (HAS HAD BLOOD WITH NO REACTION) Family Medical History Patient reports no known family medical history. No Pertinent Family Hx, Diabetes Physical Exam Vital Signs - First Documented 06/07/23 06/07/23 22:49 23:35 Temp 36.7 Pulse 78 Resp 11 B/P (MAP) 93/56 (68) Pulse Ox 100 O2 Delivery Room Air Capillary Refill : Height: 5'9.00" Weight: 142lbs. 8.0oz. 64.719120pd; 23.29 BMI Method:Estimated General Appearance: WD/WN, no apparent distress Eyes: Bilateral Eye Normal Inspection HEENT: PERRL/EOMI, normal ENT inspection, pharynx normal Neck: non-tender, full range of motion, supple, normal inspection Respiratory: chest non-tender, no respiratory distress, no accessory muscle use, wheezing Cardiovascular: regular rate, rhythm Gastrointestinal: normal bowel sounds, non tender, soft; No distended, No guarding Extremities: normal range of motion, non-tender, no calf tenderness, normal capillary refill, pedal edema Neurologic/Psychiatric: no motor/sensory deficits, alert, normal mood/affect, oriented x 3 Skin: normal color, warm/dry Procedures/Interventions Date of ETT Placement: Nov 10, 2016 Time of ETT Placement: 2219 Progress/Results/Core Measures Suspected Sepsis SIRS Temperature: Pulse: Respiratory Rate: Laboratory Tests 06/07/23 22:37: White Blood Count 9.4 Blood Pressure / Mean: Laboratory Tests 06/07/23 22:37: Creatinine 1.90H, Platelet Count 369, Total Bilirubin 0.1 Results/Orders Lab Results Laboratory Tests Test 06/07/23 22:37 Range/Units White Blood Count 9.4 4.3-11.0 10^3/uL Red Blood Count 4.25 L 4.30-5.52 10^6/uL Hemoglobin 10.1 L 13.3-17.7 g/dL Hematocrit 33 L 40-54 % Mean Corpuscular Volume 78 L 80-99 fL Mean Corpuscular Hemoglobin 24 L 25-34 pg Mean Corpuscular Hemoglobin Concent 31 L 32-36 g/dL Red Cell Distribution Width 16.1 H 10.0-14.5 % Platelet Count 369 130-400 10^3/uL Mean Platelet Volume 9.0 9.0-12.2 fL Immature Granulocyte % (Auto) 0 % Neutrophils (%) (Auto) 66 42-75 % Lymphocytes (%) (Auto) 24 12-44 % Monocytes (%) (Auto) 6 0-12 % Eosinophils (%) (Auto) 3 0-10 % Basophils (%) (Auto) 1 0-10 % Neutrophils # (Auto) 6.2 1.8-7.8 10^3/uL Lymphocytes # (Auto) 2.3 1.0-4.0 10^3/uL Monocytes # (Auto) 0.6 0.0-1.0 10^3/uL Eosinophils # (Auto) 0.3 0.0-0.3 10^3/uL Basophils # (Auto) 0.1 0.0-0.1 10^3/uL Immature Granulocyte # (Auto) 0.0 0.0-0.1 10^3/uL Sodium Level 138 135-145 MMOL/L Potassium Level 4.0 3.6-5.0 MMOL/L Chloride Level 101 98-107 MMOL/L Carbon Dioxide Level 23 21-32 MMOL/L Anion Gap 14 5-14 MMOL/L Blood Urea Nitrogen 39 H 7-18 MG/DL Creatinine 1.90 H 0.60-1.30 MG/DL Estimat Glomerular Filtration Rate 36 BUN/Creatinine Ratio 21 Glucose Level 138 H 70-105 MG/DL Calcium Level 8.7 8.5-10.1 MG/DL Corrected Calcium 9.4 8.5-10.1 MG/DL Total Bilirubin 0.1 0.1-1.0 MG/DL Aspartate Amino Transf (AST/SGOT) 14 5-34 U/L Alanine Aminotransferase (ALT/SGPT) 10 0-55 U/L Alkaline Phosphatase 65 40-136 U/L B-Type Natriuretic Peptide 184.5 H <100.0 PG/ML Total Protein 7.0 6.4-8.2 GM/DL Albumin 3.1 L 3.2-4.5 GM/DL Influenza Type A (RT-PCR) Not Detected Not Detecte Influenza Type B (RT-PCR) Not Detected Not Detecte SARS-CoV-2 RNA (RT-PCR) Not Detected Not Detecte My Orders Orders - LONNY THURSTON MD Cbc With Automated Diff (06/07/23 22:20) Comprehensive Metabolic Panel (06/07/23 22:20) Ekg Tracing (06/07/23 22:20) Influenza A And B By Pcr (06/07/23 22:20) Covid 19 Inhouse Test (06/07/23 22:20) Monitor-Rhythm Ecg Trace Only (06/07/23 22:20) Pulse Oximetry Order (06/07/23 22:20) Rt Request For Service (06/07/23 22:20) Ipratropium/Albuterol Inh Soln (Ipratrop (06/07/23 22:30) Ceftriaxone Iv/Im (Ceftriaxone Iv/Im) (06/07/23 22:30) Bnp Callum (06/07/23 22:20) Doxycycline Hyclate Tablet (Doxycycline (06/07/23 22:30) Dexamethasone Injection (Dexamethasone (06/07/23 22:30) Chest 1 View, Ap/Pa Only (06/07/23 22:20) Ns Iv 500 Ml (Ns Iv 500 Ml) (06/07/23 22:51) Medications Given in ED Current Medications Medications Dose Ordered Sig/Janeth Route Start Time Stop Time Status Last Admin Dose Admin Albuterol/ Ipratropium 3 ml ONCE ONCE IH 06/07/23 22:30 06/07/23 22:31 DC 06/07/23 23:33 3 ML Ceftriaxone Sodium 1000 mg/ Sodium Chloride 50 ml @ 100 mls/hr ONCE ONCE IV 06/07/23 22:30 06/07/23 22:59 DC 06/07/23 22:44 100 MLS/HR Dexamethasone Sodium Phosphate 8 mg ONCE ONCE IV 06/07/23 22:30 06/07/23 22:31 DC 06/07/23 22:44 8 MG Doxycycline Hyclate 100 mg ONCE ONCE PO 06/07/23 22:30 06/07/23 22:31 DC 06/07/23 22:44 100 MG Vital Signs/I&O 06/07/23 06/07/23 22:49 23:35 Temp 36.7 Pulse 78 Resp 11 B/P (MAP) 93/56 (68) Pulse Ox 100 98 O2 Delivery Room Air Capillary Refill : Progress Note : Progress Note 78-year-old male with above history coming in due to shortness of breath and wheezing. ABCs were intact and vitals were stable on presentation. Specifically, he was 98% on room air. He does have wheezing in all lung pineda. An IV was placed and basic labs were obtained and were significant normal white blood cell count, elevated creatinine from his baseline, not far off from his baseline, slightly elevated BNP which is nonspecific. Flu and COVID were negative. Chest x-ray ordered interpreted by me showing no lobar pneumonia, no pneumothorax, appears similar to prior. Given the wheezing and history of COPD, was given IV antibiotics, steroids, and a DuoNeb. On reassessment, appeared more comfortable. Continues to be stable without oxygen, he has oxygen at home if he were to need as well. I believe he is stable for discharge with outpatient follow-up. Prescriptions were sent. He was sent home with strict return precautions ECG Initial ECG Impression Date: Jun 07, 2023 Initial ECG Impression Time: 23:07 Initial ECG Rate: 75 Initial ECG Rhythm: Normal Sinus Comment Wide QRS with duration of 120, no STEMI, no significant T wave abnormalities Diagnostic Imaging Diagonstic Imaging: Xray (chest) Departure Impression Primary Impression: COPD with exacerbation Disposition: HOME, SELF-CARE Condition: Stable Departure-Patient Inst. Decision time for Depature: 23:45 Referrals: ZUHAIR JOE MD (PCP/Family) Primary Care Physician Patient Instructions: COPD Exacerbation, Adult ED Add. Discharge Instructions: We are concerned you are having a COPD exacerbation. Use your nebulizer for treatments every 2-4 hours at home while awake. Antibiotics and steroids were sent to your pharmacy as well for you to continue starting tomorrow. Follow-up with your regular doctor if you are not seeing improvement in the next couple of days. Be sure to use your oxygen at home if you feel like you need it. Scripts Doxycycline Hyclate (Doxycycline Hyclate) 100 Mg Tablet 100 MG PO BID for 5 Days, #10 TAB 0 Refills Prov: LONNY THURSTON MD 06/07/23 Methylprednisolone (Methylprednisolone Dose Pack) 4 Mg Tab.ds.pk 4 MG PO UD for 6 Days, #21 PKG PER DOSE PACK INSTRUCTIONS Prov: LONNY THURSTON MD 06/07/23 LONNY THURSTON MD Jun 07, 2023 22:24
[2023-06-07] MEDS ORDERED: cefTRIAXone IV/IM 1,000 MG in NS (IVPB) 50 ML 50 ML IV ONE (22:30)
[2023-06-07] MEDS ORDERED: dexAMETHasone INJ 10 MG/ML 1 ML VIAL IV ONE (22:30)
[2023-06-07] MEDS ORDERED: RT-Ipratropium/Albuterol NEB 3 ML VIAL IH ONE (22:30)
[2023-06-07] MEDS ORDERED: cefTRIAXone 1,000 MG VIAL IV/IM ONE (22:40)
[2023-06-07 22:44] LABS: BASOPHILS # (AUTO) 0.1 10^3/uL (0.0-0.1); BASOPHILS % (AUTO) 1 % (0-10); EOSINOPHILS # (AUTO) 0.3 10^3/uL (0.0-0.3); EOSINOPHILS % (AUTO) 3 % (0-10); HEMATOCRIT 33 % (40-54); HEMOGLOBIN 10.1 g/dL (13.3-17.7); LYMPHOCYTES # (AUTO) 2.3 10^3/uL (1.0-4.0); LYMPHOCYTES % (AUTO) 24 % (12-44); MEAN CORPUSCULAR HEMOGLOBIN 24 pg (25-34); MEAN CORPUSCULAR HGB CONC 31 g/dL (32-36); MEAN CORPUSCULAR VOLUME 78 fL (80-99); MONOCYTES # (AUTO) 0.6 10^3/uL (0.0-1.0); MONOCYTES % (AUTO) 6 % (0-12); NEUTROPHILS # (AUTO) 6.2 10^3/uL (1.8-7.8); NEUTROPHILS % (AUTO) 66 % (42-75); PLATELET COUNT 369 10^3/uL (130-400); WHITE BLOOD COUNT 9.4 10^3/uL (4.3-11.0)
[2023-06-07] MEDS ORDERED: NS IV 500 ML 500 ML IV STA (22:51)
[2023-06-07 23:04] LABS: ALBUMIN 3.1 GM/DL (3.2-4.5); BILIRUBIN,TOTAL 0.1 MG/DL (0.1-1.0); CALCIUM 8.7 MG/DL (8.5-10.1); CREATININE SERUM 1.9 MG/DL (0.60-1.30)
[2023-06-07] MEDS ORDERED: METH4TAB10 PO (23:36)
[2023-06-07] MEDS ORDERED: DOXY100T2 PO (23:36)
[2023-06-07 23:45] VITALS: BP 127/64
--- NOTE | 2023-06-08 06:37 | Diagnostic Imaging Report ---
INDICATION: Shortness of breath Portable chest 10:57 PM Heart size and pulmonary vascularity are normal. Lungs are clear. There are no effusions or pneumothoraces. IMPRESSION: No acute abnormalities in the chest. Dictated by: Dictated on workstation # [id number]
== END 2023-06-07 23:55 | disposition home or self-care (01) ==
LOC: EDUNIT# 22:18 → ER 22:19
DX: J44.1 Chronic obstructive pulmonary disease with (acute) exacerbation (principal); Z20.822 Contact with and (suspected) exposure to COVID-19; Z99.81 Dependence on supplemental oxygen; Z28.310 Unvaccinated for COVID-19; Z88.2 Allergy status to sulfonamides
CPT/HCPCS: 36415; 71045; 80053; 83880; 85025; 87636; 93005; 93041; 94640

== ENCOUNTER 2023-07-09 19:37 | Inpatient (IN) | payer MEDICARE ==
[~2023-07-09] VITALS: Ht 165.1 cm; Wt 65.6 kg
[~2023-07-09 19:37] MED LIST changes: +METH4TAB10 PO
--- NOTE | 2023-07-09 19:52 | ED Lower Extremity ---
General Chief Complaint: Skin/Wound Problems Stated Complaint: LEG PAIN Nursing Triage Note: BROUGHT IN BY [facility] FOR INCREASED LEG PAIN X1 DAY. CHRONIC LEG WOUNDS Source: patient (VERY POOR HISTORIAN), old records History of Present Illness Date Seen by Provider: Jul 09, 2023 Time Seen by Provider: 19:35 Initial Comments PT ARRIVES VIA EMS FROM HOME--PT LIVES WITH A ROOM MATE C/O CHRONIC WOUNDS TO LEGS AND FEET INCREASED PAIN TO LEGS/FEET TODAY PT IS OPIATE DEPENDENT WITH MORPHINE AND OXYCODONE PT STATES HOME HEALTH DRESSES HIS WOUNDS HE SAW HIS PCP "A COUPLE OF WEEKS AGO" BUT CANNOT ELABORATE HE DOES NOT KNOW IF HE HAS HAD FEVER OR NOT PT WITH HISTORY OF HTN, COPD, HYPOTHYROIDISM, RHEUMATOID ARTHRITIS HE HAS SEVERE PERIPHERAL ARTERY DISEASE, AND HAD PERIPHERAL ANGIOGRAM BY DR. HALL IN NOVEMBER OF THIS SHOWING: -MODERATE SIZED INFRA-RENAL ABDOMINAL AORTIC ANEURYSM -SEVERE STENOSIS AT RIGHT COMMON ILIAC ARTERY AT ORIGIN -SEVERE STENOSIS OF LEFT COMMON ILIAC ARTERY AT PROXIMAL PORTION FOLLOWED BY ANEURYSM. -MODERATE TO SEVERE STENOSIS DIFFUSE DISEASE OF LEFT S.F.A. WITH ONE AREA OF ANEURYSMAL DILATION -MODERATE DIFFUSE DISEASED OF RIGHT S.F.A. PT WAS REFERRED TO VASCULAR SURGERY, BUT PT DID NOT FOLLOW UP ADVISED. PCP: DR. MANRIQUEZ Allergies and Home Medications Allergies Coded Allergies: Sulfa (Sulfonamide Antibiotics) (Verified Allergy, Mild, GI UPSET, 04/12/23) Patient Home Medication List Cephalexin (Cephalexin) 500 Mg Tablet, 500 MG PO BID Prescribed by: NOLBERTO GONZALEZ on 04/14/23 1320 Doxycycline Hyclate (Doxycycline Hyclate) 100 Mg Tablet, 100 MG PO BID Prescribed by: LONNY THURSTON on 06/07/23 2336 Esomeprazole Magnesium (Esomeprazole Magnesium) 40 Mg Capsule., 40 MG PO HS Prescribed by: NOLBERTO GONZALEZ on 02/02/23922 Gabapentin (Gabapentin) 100 Mg Capsule, 100 MG PO BID Prescribed by: NOLBERTO GONZALEZ on 02/02/23922 Ipratropium/Albuterol Sulfate (Iprat-Albut 0.5-3(2.5) mg/3 ml) 0.5 Mg-3 Mg (2.5 Mg Base)/3 Ml Ampul.neb, 3 ML IH Q6H PRN for SHORTNESS OF BREATH Prescribed by: NOLBERTO GONZALEZ on 02/02/23922 Levothyroxine Sodium (Synthroid) 150 Mcg Tablet, 150 MCG PO DAILY@0630 Prescribed by: NOLBERTO GONZALEZ on 02/02/23922 Methylprednisolone (Methylprednisolone Dose Pack) 4 Mg Tab.ds.pk, 4 MG PO UD Prescribed by: LONNY THURSTON on 06/07/23 2336 Morphine Sulfate (Morphine Sulfate ER) 15 Mg Tablet.er, 15 MG PO TID Prescribed by: NOLBERTO GONZALEZ on 02/02/23923 Oxycodone HCl/Acetaminophen (Oxycodone-Acetaminophen 10-325) 10 Mg-325 Mg Tablet, 1 TAB PO TID PRN for PAIN-MODERATE Prescribed by: NOLBERTO GONZALEZ on 02/02/23923 Tizanidine HCl (Tizanidine HCl) 4 Mg Capsule, 4 MG PO BID Prescribed by: NOLBERTO GONZALEZ on 02/02/23922 Review of Systems Constitutional: see HPI Respiratory: no symptoms reported Cardiovascular: see HPI Gastrointestinal: no symptoms reported Musculoskeletal: see HPI Skin: see HPI Psychiatric/Neurological: No Symptoms Reported Past Rbjlhra-Rmlqyw-Vfcqon Hx Patient Social History Tobacco Use?: Yes Tobacco type used: Cigarettes Smoking Status: Current Everyday Smoker Substance use?: No Alcohol Use?: No Pt feels they are or have been: No Immunizations Up To Date Tetanus Booster (TDap): Unknown First/Initial COVID19 Vaccinat: Never had Second COVID19 Vaccination [place]: Never had Third COVID19 Vaccination Date: Never had Seasonal Allergies Seasonal Allergies: Yes Past Medical History Surgery/Hospitalization HX: L TKR, BOWEL RESECTION, LEFT WRIST, CARDIAC STENTS, HTN, COPD, RA, HYPOTHRYOIDISM, CH. 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 DIFF COLITIS) Colitis, Gastroesophageal Reflux, Hemorrhoids, C-Diff Musculoskeletal: Yes (BILATERAL OLECRANON BURSITIS) Osteoporosis, Arthritis, Rheumatoid Arthritis Endocrine: Yes Hypothyroidsim HEENT: Yes (GLASSES, DENTURES) Loss of Vision: Bilateral Hearing Impairment: Denies Cancer: No Psychosocial: Yes Anxiety Integumentary: Yes (CHRONIC LEG WOUNDS-D/T PAD; CHRONIC CELLULITIS OF LEGS) Eczema, Psoriasis Blood Disorders: Yes (HX ANEMIA) Adverse Reaction/Blood Tranf: No (HAS HAD BLOOD WITH NO REACTION) Family Medical History Patient reports no known family medical history. No Pertinent Family Hx, Diabetes SOCIAL HISTORY: -SMOKING -ETOH -DRUG HE HAS SEVERE PERIPHERAL ARTERY DISEASE, AND HAD PERIPHERAL ANGIOGRAM BY DR. HALL IN NOVEMBER OF THIS YEAR/2022 SHOWING: -MODERATE SIZED INFRA-RENAL ABDOMINAL AORTIC ANEURYSM -SEVERE STENOSIS AT RIGHT COMMON ILIAC ARTERY AT ORIGIN -SEVERE STENOSIS OF LEFT COMMON ILIAC ARTERY AT PROXIMAL PORTION FOLLOWED BY ANEURYSM. -MODERATE TO SEVERE STENOSIS DIFFUSE DISEASE OF LEFT S.F.A. WITH ONE AREA OF ANEURYSMAL DILATION -MODERATE DIFFUSE DISEASED OF RIGHT S.F.A. PT WAS REFERRED TO VASCULAR SURGERY, BUT PT DID NOT FOLLOW UP ADVISED. Physical Exam Vital Signs Vital Signs - First Documented 07/09/23 07/09/23 19:40 20:05 Temp 37.4 Pulse 133 Resp 16 B/P (MAP) 105/79 (88) Pulse Ox 93 O2 Delivery Room Air O2 Flow Rate 2.00 Capillary Refill : Less Than 3 Seconds Height, Weight, BMI Height: 5'9.00" Weight: 142lbs. 8.0oz. 64.474191ts; 21.00 BMI Method:Estimated General Appearance: WD/WN, no apparent distress, other (DIRTY, VERY MALODOROUS, UNKEMPT) Cardiovascular: regular rate, rhythm, systolic murmur (3/6) Respiratory: normal breath sounds, no respiratory distress, no accessory muscle use Gastrointestinal: non tender, soft Back: no CVA tenderness Legs: bilateral leg other (BILATERAL LOWER LEGS AND FEET WITH 2-3+ EDEMA, DIFFUSE ERYTHEMA AND WARMTH AND TENDERNESS. PT HAS EXTENSIVE SCALING TO BOTH LOWER LEGS, WITH EXTENSIVE AREAS OF SKIN BREAKDOWN WITH DESQUAMATION AND ULCERS OF VARIOUS AGES TO BOTH LOWER LEGS AND FEET. UNABLE TO PALPATE PULSES. TOES ARE ALL PINK) Procedures/Interventions Date of ETT Placement: Nov 10, 2016 Time of ETT Placement: 2219 Progress/Results/Core Measures Results/Orders Lab Results Laboratory Tests Test 07/09/23 19:42 07/09/23 20:37 Range/Units White Blood Count 10.6 4.3-11.0 10^3/uL Red Blood Count 3.99 L 4.30-5.52 10^6/uL Hemoglobin 9.4 L 13.3-17.7 g/dL Hematocrit 30 L 40-54 % Mean Corpuscular Volume 76 L 80-99 fL Mean Corpuscular Hemoglobin 24 L 25-34 pg Mean Corpuscular Hemoglobin Concent 31 L 32-36 g/dL Red Cell Distribution Width 17.7 H 10.0-14.5 % Platelet Count 432 H 130-400 10^3/uL Mean Platelet Volume 9.2 9.0-12.2 fL Immature Granulocyte % (Auto) 0 % Neutrophils (%) (Auto) 79 H 42-75 % Lymphocytes (%) (Auto) 17 12-44 % Monocytes (%) (Auto) 3 0-12 % Eosinophils (%) (Auto) 0 0-10 % Basophils (%) (Auto) 0 0-10 % Neutrophils # (Auto) 8.4 H 1.8-7.8 10^3/uL Lymphocytes # (Auto) 1.8 1.0-4.0 10^3/uL Monocytes # (Auto) 0.3 0.0-1.0 10^3/uL Eosinophils # (Auto) 0.0 0.0-0.3 10^3/uL Basophils # (Auto) 0.0 0.0-0.1 10^3/uL Immature Granulocyte # (Auto) 0.0 0.0-0.1 10^3/uL Prothrombin Time 13.7 12.2-14.7 SEC INR Comment 1.0 0.8-1.4 Activated Partial Thromboplast Time 33 24-35 SEC Sodium Level 140 135-145 MMOL/L Potassium Level 3.9 3.6-5.0 MMOL/L Chloride Level 102 98-107 MMOL/L Carbon Dioxide Level 24 21-32 MMOL/L Anion Gap 14 5-14 MMOL/L Blood Urea Nitrogen 38 H 7-18 MG/DL Creatinine 1.70 H 0.60-1.30 MG/DL Estimat Glomerular Filtration Rate 41 BUN/Creatinine Ratio 22 Glucose Level 90 70-105 MG/DL Lactic Acid Level 1.87 0.50-2.00 MMOL/L Calcium Level 9.0 8.5-10.1 MG/DL Corrected Calcium 9.7 8.5-10.1 MG/DL Magnesium Level 1.2 L 1.6-2.4 MG/DL Total Bilirubin 0.7 0.1-1.0 MG/DL Aspartate Amino Transf (AST/SGOT) 23 5-34 U/L Alanine Aminotransferase (ALT/SGPT) 10 0-55 U/L Alkaline Phosphatase 63 40-136 U/L B-Type Natriuretic Peptide 822.5 H <100.0 PG/ML Total Protein 6.8 6.4-8.2 GM/DL Albumin 3.1 L 3.2-4.5 GM/DL TSH [place] Testing 1.85 0.35-4.94 UIU/ML Serum Alcohol < 10 <10 MG/DL Erythrocyte Sedimentation Rate 16 0-30 MM/HR C-Reactive Protein High Sensitivity 16.62 H 0.00-0.50 MG/DL My Orders Orders - BHARATH REAVES DO Cbc And Automated Diff (07/09/23 19:46) Comprehensive Metabolic Panel (07/09/23 19:46) Blood Culture (07/09/23 19:46) Urinalysis (07/09/23 19:46) Urine Culture (07/09/23 19:46) Protime With Inr (07/09/23 19:46) Partial Thromboplastin Time (07/09/23 19:46) Chest 1 View, Ap/Pa Only (07/09/23 19:46) Acetaminophen Tablet (Acetaminophen Ta (07/09/23 20:00) Ed Iv/Invasive Line Start (07/09/23 19:46) Ed Iv/Invasive Line Start (07/09/23 19:46) O2 (07/09/23 19:46) Remove Rings In Anticipation O (07/09/23 19:46) Lactic Acid Analyzer (07/09/23 19:46) Lactated Ringers 1,000 Ml (Lactated Ring (07/09/23 20:00) Piperacillin/Tazobactam (Piperacillin/Ta (07/09/23 20:00) Wound Culture (07/09/23 19:46) Vancomycin Injection (Vancomycin Injecti (07/09/23 20:00) Vancomycin Injection (Vancomycin Injecti (07/09/23 21:00) Alcohol (07/09/23 19:52) Bnp [place] (07/09/23 19:52) Drug Screen Stat (Urine) (07/09/23 19:52) Magnesium (07/09/23 19:52) Thyroid Analyzer (07/09/23 19:52) Ed Iv/Invasive Line Start (07/09/23 20:14) Ns Iv 1000 Ml (Ns Iv 1000 Ml) (07/09/23 20:15) Hs C Reactive Protein (07/09/23 20:34) Erythrocyte Sedimentation Rate (07/09/23 20:34) Fentanyl Injection (Fentanyl Injection (07/09/23 20:45) Ekg Tracing (07/09/23 20:43) Monitor-Rhythm Ecg Trace Only (07/09/23 20:43) Enoxaparin Injection (Enoxaparin Injecti (07/09/23 21:00) Medications Given in ED Current Medications Medications Dose Ordered Sig/Janeth Route Start Time Stop Time Status Last Admin Dose Admin Acetaminophen 1,000 mg ONCE PRN PO 07/09/23 20:00 07/09/23 20:03 DC 07/09/23 20:03 1,000 MG Enoxaparin Sodium 70 mg ONCE ONCE SC 07/09/23 21:00 07/09/23 21:01 DC 07/09/23 21:05 70 MG Fentanyl Citrate 50 mcg ONCE ONCE IVP 07/09/23 20:45 07/09/23 20:46 DC 07/09/23 20:46 50 MCG Lactated Ringer's 1,000 ml @ 0 mls/hr Q0M ONCE IV 07/09/23 20:00 07/09/23 20:01 DC 07/09/23 20:03 0 MLS/HR Piperacillin Sod/ Tazobactam Sod 4.5 gm/Sodium Chloride 100 ml @ 200 mls/hr ONCE ONCE IV 07/09/23 20:00 07/09/23 20:29 DC 07/09/23 20:08 200 MLS/HR Vancomycin HCl 500 mg/Sodium Chloride 100 ml @ 100 mls/hr ONCE ONCE IV 07/09/23 21:00 07/09/23 21:59 DC 07/09/23 20:21 100 MLS/HR Vancomycin HCl 750 mg/Sodium Chloride 100 ml @ 100 mls/hr ONCE ONCE IV 07/09/23 20:00 07/09/23 20:59 DC 07/09/23 20:07 100 MLS/HR Vital Signs/I&O 07/09/23 07/09/23 07/09/23 07/09/23 19:40 20:03 20:05 21:11 Temp 37.4 37.4 37.2 Pulse 133 109 Resp 16 20 B/P (MAP) 105/79 (88) 98/59 Pulse Ox 93 99 O2 Delivery Room Air Nasal Cannula Nasal Cannula O2 Flow Rate 2.00 2.00 07/10/23 00:00 Intake Total 100 ml Balance 100 ml Blood Pressure Mean: 88 Progress Progress Note : Progress Note SEPSIS PROTOCOL INITIATED FOCUS EXAM AT 2054 EXAM UNCHANGED SOURCE--SKIN AND POSSIBLY PULMONARY Diagnostic Imaging Comments CXR--PER RADIOLOGIST REPORT AT 2014 Since 06/07/2023, single view of the chest reveals bilateral airspace disease with a central and left upper lobe predominance. No definite pneumothorax is seen. No obvious pleural fluid. IMPRESSION: Bilateral airspace disease likely represents pulmonary edema or developing pneumonia. Follow-up study would be useful. Reviewed: Reviewed by Me Departure Communication (Admissions) 2034--CALLED DR. GONZALEZ, HOSPITALIST, MESSAGE LEFT ON CELL PHONE Impression Primary Impression: Septic shock Additional Impressions: Bilateral lower leg cellulitis CHRONIC BILATERAL LEG WOUNDS Severe peripheral arterial disease COPD (chronic obstructive pulmonary disease) PULMONARY EDEMA AND/OR PNEUMONIA Departure-Patient Inst. Referrals: ZUHAIR JOE MD (PCP/Family) Primary Care Physician BHARATH REAVES DO Jul 09, 2023 19:52
[2023-07-09 19:56] LABS: BASOPHILS % (AUTO) 0 % (0-10); EOSINOPHILS % (AUTO) 0 % (0-10); HEMATOCRIT 30 % (40-54); HEMOGLOBIN 9.4 g/dL (13.3-17.7); LYMPHOCYTES # (AUTO) 1.8 10^3/uL (1.0-4.0); LYMPHOCYTES % (AUTO) 17 % (12-44); MEAN CORPUSCULAR HEMOGLOBIN 24 pg (25-34); MEAN CORPUSCULAR HGB CONC 31 g/dL (32-36); MEAN CORPUSCULAR VOLUME 76 fL (80-99); MEAN PLATELET VOLUME 9.2 fL (9.0-12.2); MONOCYTES # (AUTO) 0.3 10^3/uL (0.0-1.0); MONOCYTES % (AUTO) 3 % (0-12); NEUTROPHILS # (AUTO) 8.4 10^3/uL (1.8-7.8); NEUTROPHILS % (AUTO) 79 % (42-75); PLATELET COUNT 432 10^3/uL (130-400); WHITE BLOOD COUNT 10.6 10^3/uL (4.3-11.0)
[2023-07-09] MEDS ORDERED: ACETAMINOPHEN 500 MG TABLET PO PRN (20:00)
[2023-07-09] MEDS ORDERED: LACTATED RINGERS 1,000 ML 1,000 ML IV ONE (20:00)
[2023-07-09] MEDS ORDERED: PIPERACILLIN/Tazobactam 4.5 GM in NS (IVPB) 100 ML 100 ML IV ONE (20:00)
[2023-07-09] MEDS ORDERED: VANCOMYCIN INJECTION 750 MG in NS (IVPB) 100 ML 100 ML IV ONE (20:00)
[2023-07-09 20:06] LABS: PROTHROMBIN TIME PATIENT 13.7 SEC (12.2-14.7)
--- NOTE | 2023-07-09 20:06 | Diagnostic Imaging Report ---
INDICATION: Sepsis Since 06/07/2023, single view of the chest reveals bilateral airspace disease with a central and left upper lobe predominance. No definite pneumothorax is seen. No obvious pleural fluid. IMPRESSION: Bilateral airspace disease likely represents pulmonary edema or developing pneumonia. Follow-up study would be useful. Dictated by: Dictated on workstation # [id number]
[2023-07-09 20:15] LABS: MAGNESIUM 1.2 MG/DL (1.6-2.4)
[2023-07-09] MEDS ORDERED: NS IV 1000 ML 1,000 ML IV SCH (20:15)
[2023-07-09 20:18] LABS: ALBUMIN 3.1 GM/DL (3.2-4.5); BILIRUBIN,TOTAL 0.7 MG/DL (0.1-1.0); CREATININE SERUM 1.7 MG/DL (0.60-1.30); POTASSIUM 3.9 MMOL/L (3.6-5.0); TOTAL PROTEIN 6.8 GM/DL (6.4-8.2)
[2023-07-09 20:37] LABS: TSH (THYROID ANALYZER) 1.85 UIU/ML (0.35-4.94)
[2023-07-09] MEDS ORDERED: fentaNYL INJECTION 100 MCG/2 ML VIAL IVP ONE (20:45)
[2023-07-09] MEDS ORDERED: ENOXAPARIN 80 MG/0.8 ML SYRINGE SC ONE (21:00)
[2023-07-09] MEDS ORDERED: VANCOMYCIN INJECTION 500 MG in NS (IVPB) 100 ML 100 ML IV ONE (21:00)
[2023-07-09 22:09] VITALS: BP 105/79
[2023-07-09] MEDS ORDERED: RT-Ipratropium/Albuterol NEB 3 ML VIAL INH PRN (22:30)
[2023-07-09 23:02] LABS: BACTERIA,URINE NEGATIVE /HPF; BILIRUBIN,URINE NEGATIVE (NEGATIVE); CLARITY,URINE CLEAR; COLOR,URINE YELLOW; GLUCOSE, URINE (UA) NEGATIVE (NEGATIVE); KETONES,URINE 1+ (NEGATIVE); LEUKOCYTE ESTERASE ,URINE NEGATIVE (NEGATIVE); NITRITE,URINE NEGATIVE (NEGATIVE); PH,URINE 7 (5-9); PROTEIN,URINE 2+ (NEGATIVE); RBC,URINE 0-2 /HPF
[2023-07-09 23:09] LABS: AMPHETAMINE SCREEN, URINE NEGATIVE (NEGATIVE); BARBITURATE SCREEN URINE NEGATIVE (NEGATIVE); CANNABINOID SCREEN, URINE NEGATIVE (NEGATIVE); COCAINE SCREEN URINE NEGATIVE (NEGATIVE); METHADONE STAT NEGATIVE (NEGATIVE); OPIATE SCREEN URINE POSITIVE (NEGATIVE); OXYCODONE STAT POSITIVE (NEGATIVE); PROPOXYPHENE STAT NEGATIVE (NEGATIVE); TRICYCLIC ANTIDEPRESSANTS SCRE NEGATIVE (NEGATIVE)
--- NOTE | 2023-07-10 00:23 | Tele-ICU Progress Note ---
Progress Note Tele ICU 78 yo man admitted with increasing leg pain, wounds not being dressed by home health. PMHx: morphine and oxycodone dependent, chronic leg wounds, peripheral vascular disease, HTN, COPD, hypothyroidism, rheumatoid arthritis Recent prednisone in May , in addition to opioids is on tizanidine, gabapentin, , duoneb, O2, levothyroxine CXR:MPRESSION: Bilateral airspace disease likely represents pulmonary edema or developing pneumonia. Follow-up study would be useful. Pertinent labs: Lactic acid 1.87 Mg 1.2 BUN 38 Cr 1.7 CBC wwbcs 10,600 P 79 L 17 [place] 3 Hgb 9.4 Plts 432,000 RDW 17.7 ESR 16 CRP 16.62 BNP 822 Per video pt sleeping, on NC sats 98% BP 142/75 HR 117 In ED sepsis protocol was initiated- pancultured and initial 1 liter NS given- BP has responded to this . Vanco and Zosyn were initiated in ED. Orders were already placed for electrolyte replacement, was given loading dose of lovenox in ED. Stat COVID, FLU PCR (still pending) and Respiratory Viral panel. . A: Sepsis-- Pneumonia, Chronic leg wounds, COPD, Chronic pain with opioid dependence P: Hospitalist has initiated orders, abx, pain control, nebulizers, labs, wound care consult. I will replace Mg 1.2 now- electrolyte replacement orders were written to start with AM labs. D/W nursing. Pt will be placed in appropriate isolation pending any positive results on the stat screening. Focused Exam Lactate Level 07/09/23 19:42: Lactic Acid Level 1.87 Height, Weight, BMI Height: 5'9.00" Weight: 142lbs. 8.0oz. 64.007257vc; 24.06 BMI Method:Estimated IAN PERDOMO DO Jul 10, 2023 00:23
[2023-07-10] MEDS ORDERED: EPINEPHrine 1 MG INJECTION 4 MG in NS (IVPB) 250 ML 248 ML IV SCH (00:30)
[2023-07-10] MEDS ORDERED: VASOPRESSIN INJECTION 20 UNIT in NS (IVPB) 100 ML 100 ML IV SCH (00:30)
[2023-07-10] MEDS ORDERED: ONDANSETRON INJECTION 4 MG/2 ML (SDV) IV PRN (00:30)
[2023-07-10] MEDS ORDERED: NOREPINEPHRINE 8 MG/250 ML 250 ML IV SCH (00:30)
[2023-07-10] MEDS ORDERED: ACETAMINOPHEN 500 MG TABLET PO PRN (00:30)
[2023-07-10] MEDS: MAGNESIUM 1 GM/100 ML IVPB 100 ML IV SCH ×4 (00:52→03:09)
[2023-07-10] MEDS: LACTATED RINGERS 1,000 ML 1,000 ML IV SCH ×2 (00:52→09:27)
[2023-07-10] MEDS: fentaNYL INJECTION 100 MCG/2 ML VIAL IV PRN ×3 (01:02→10:40)
[2023-07-10] MEDS ORDERED: LIDOCAINE UROJET 2% GEL 10 ML PKG ONE (01:45)
[2023-07-10] MEDS: RT-Ipratropium/Albuterol NEB 3 ML VIAL INH SCH ×6 (02:15→23:08)
[2023-07-10] MEDS: PIPERACILLIN/Tazobactam 4.5 GM in NS (IVPB) 100 ML 100 ML IV SCH ×3 (03:46→18:37)
[2023-07-10 05:26] LABS: BASOPHILS % (AUTO) 0 % (0-10); EOSINOPHILS # (AUTO) 0.1 10^3/uL (0.0-0.3); EOSINOPHILS % (AUTO) 1 % (0-10); HEMATOCRIT 27 % (40-54); HEMOGLOBIN 8.3 g/dL (13.3-17.7); LYMPHOCYTES # (AUTO) 0.7 10^3/uL (1.0-4.0); LYMPHOCYTES % (AUTO) 8 % (12-44); MEAN CORPUSCULAR HEMOGLOBIN 23 pg (25-34); MEAN CORPUSCULAR HGB CONC 31 g/dL (32-36); MEAN CORPUSCULAR VOLUME 75 fL (80-99); MONOCYTES # (AUTO) 0.2 10^3/uL (0.0-1.0); MONOCYTES % (AUTO) 2 % (0-12); NEUTROPHILS # (AUTO) 7.4 10^3/uL (1.8-7.8); NEUTROPHILS % (AUTO) 88 % (42-75); PLATELET COUNT 384 10^3/uL (130-400); WHITE BLOOD COUNT 8.4 10^3/uL (4.3-11.0)
[2023-07-10 05:39] LABS: ALBUMIN 2.5 GM/DL (3.2-4.5); POTASSIUM 3.5 MMOL/L (3.6-5.0)
[2023-07-10 05:40] LABS: CALCIUM 8.4 MG/DL (8.5-10.1)
[2023-07-10 05:41] LABS: TOTAL PROTEIN 5.6 GM/DL (6.4-8.2)
[2023-07-10 05:43] LABS: BILIRUBIN,TOTAL 0.6 MG/DL (0.1-1.0)
[2023-07-10 05:44] LABS: BAND NEUTROPHILS 6 %; ELLIPT/OVALOCYTES SLIGHT; EOSINOPHILS % (MANUAL) 2 %; LYMPHOCYTES % (MANUAL) 10 %; MONOCYTES % (MANUAL) 2 %; NEUTROPHILS % (MANUAL) 80 %; PHOSPHORUS 2.4 MG/DL (2.3-4.7)
[2023-07-10 05:45] LABS: CREATININE SERUM 1.49 MG/DL (0.60-1.30); HYPOCHROMASIA SLIGHT
[2023-07-10 05:47] LABS: MAGNESIUM 2.7 MG/DL (1.6-2.4)
[2023-07-10] MEDS ORDERED: NS IV 500 ML 500 ML IV PRN (06:30)
[2023-07-10] MEDS ORDERED: POTASSIUM CHLORIDE 20 MEQ TABLET PO ONE (07:00)
--- NOTE | 2023-07-10 08:26 | Diagnostic Imaging Report ---
INDICATION: Fluid overload. Frontal chest obtained at 05:13 a.m. compared to yesterday. Cardiomegaly is again noted. There is unchanged central vascular congestion with interstitial edema and/or infiltrate. There is no pneumothorax or pleural fluid. IMPRESSION: Unchanged cardiomegaly with central vascular congestion and interstitial edema versus infiltrate. No pneumothorax or pleural fluid. Dictated by: Dictated on workstation # [id number]
[2023-07-10] MEDS: ENOXAPARIN 80 MG/0.8 ML SYRINGE SC SCH ×2 (09:32→20:15)
[2023-07-10] MEDS ORDERED: HYPOCHLOROUS ACID/NaCl WOUND SOLN 250 ML IR SCH (10:15)
--- NOTE | 2023-07-10 10:21 | Wound Care Assessment ---
Wound Care Assessment Date Seen by Provider: Jul 10, 2023 Time Seen by Provider: 09:15 Chief Complaint Bilateral leg cellulitis with open wounds HPI Our patient is a 78 yo M with a past medical history of severe PAD, bilateral revascularization procedures, venous disease, HTN, severe RA, COPD, hypothyroidism, and chronic recurrent leg wounds that was admitted for sepsis secondary to cellulitis of the lower extremities. In November, he was seen by Dr. Davis who performed a peripheral angiogram and referred him to vascular surgery but he did not follow up due most likely to transportation issues which have consistently acted as a barrier to care. He is not interested in pursuing aggressive measures for his arterial disease (including vascular surgery) at this time. He was seen at the wound care clinic up until January in which he was discharged to [facility] and there were no wounds present at this time. He is unwilling to consider [facility] or assisted living placement at this time. He was admitted for cellulitis in March and had wound cultures that grew staph aureus and corynebacterium striatum. He states that he has been receiving wound care via home health services twice a week for dressing changes and notes that the current wounds on his lower extremities have been present for at least a few weeks. In that time he has continued to experience worsening pain in both legs that he describes as burning in character, 9/10 at its worst, that radiates up to the knee. He still lives at home with a roommate and has continued to smoke around 1/2 pack a day of cigarettes. He denies a history of diabetes and neuropathy but does note increased weakness recently. He is open to discussing hospice care. He states that his pain is barely controlled at baseline. Past Medical History: Admits Peripheral Artery Disease Smoking Status: Current Everyday Smoker (1/2-a-day) Recreational Drug Use: No Review of Systems General: Chills, Fatigue Pulmonary: Cough Neurological: Weakness; No: Change in speech, Confusion Exam Vital Signs Date Time Temp Pulse Resp B/P (MAP) Pulse Ox O2 Delivery O2 Flow Rate FiO2 07/10/23 10:00 116 20 129/73 (91) 96 Nasal Cannula 2.00 07/09/23 22:09 37.4 Capillary Refill : Less Than 3 Seconds General Appearance: WD/WN, mild distress (Pain with exam) HEENT: PERRL/EOMI, normal ENT inspection Cardiovascular: systolic murmur, other (Paced) Respiratory: chest non-tender, lungs clear, normal breath sounds, no respiratory distress, no accessory muscle use Extremities: calf tenderness (Bilaterally), pedal edema (2+), slow capillary refill (Slight delay, 2-3 seconds) Neurologic/Psychiatric: alert, oriented x 3 Skin: other (Erythematous and warm on bilateral lower extremities) Skin Problem Location: lower extremities (Bilateral) 3 primary wounds noted on bilateral legs. Right calve wound measures 10 x 10.5 x 0.2 cm and stretches across the right [place]. Left calve wound measures 7 x 4 x 0.1 cm. Left foot wound measures 6 x 7 x 0.1 cm and covers the dorsal surface of the metatarsal heads and proximal toes. There is no undermining or tunneling noted. Drainage is moderate, more prominent in the right calf wound, serosanguineous, with an odor. Granulation tissue is small and pink. Necrotic is large and slough. Epithelialization is none. Margins with epibole. The legs in general are significantly tender to palpation bilaterally. Results Laboratory Tests 07/09/23 19:42: White Blood Count 10.6, Red Blood Count 3.99L, Hemoglobin 9.4L, Hematocrit 30L, Mean Corpuscular Volume 76L, Mean Corpuscular Hemoglobin 24L, Mean Corpuscular Hemoglobin Concent 31L, Red Cell Distribution Width 17.7H, Platelet Count 432H, Mean Platelet Volume 9.2, Immature Granulocyte % (Auto) 0, Neutrophils (%) (Auto) 79H, Lymphocytes (%) (Auto) 17, Monocytes (%) (Auto) 3, Eosinophils (%) (Auto) 0, Basophils (%) (Auto) 0, Neutrophils # (Auto) 8.4H, Lymphocytes # (Au to) 1.8, Monocytes # (Auto) 0.3, Eosinophils # (Auto) 0.0, Basophils # (Auto) 0.0, Immature Granulocyte # (Auto) 0.0, Prothrombin Time 13.7, INR Comment 1.0, Activated Partial Thromboplast Time 33, Sodium Level 140, Potassium Level 3.9, Chloride Level 102, Carbon Dioxide Level 24, Anion Gap 14, Blood Urea Nitrogen 38H, Creatinine 1.70H, Estimat Glomerular Filtration Rate 41, BUN/Creatinine Ratio 22, Glucose Level 90, Lactic Acid Level 1.87, Calcium Level 9.0, Corrected Calcium 9.7, Magnesium Level 1.2L, Total Bilirubin 0.7, Aspartate Amino Transf (AST/SGOT) 23, Alanine Aminotransferase (ALT/SGPT) 10, Alkaline Phosphatase 63, B-Type Natriuretic Peptide 822.5H, Total Protein 6.8, Albumin 3.1L, TSH [place] Testing 1.85, Serum Alcohol < 10 07/09/23 20:37: Erythrocyte Sedimentation Rate 16, C-Reactive Protein High Sensitivity 16.62H 07/09/23 22:30: Urine Color YELLOW, Urine Clarity CLEAR, Urine pH 7, Urine Specific [place] 1.015L, Urine Protein 2+H, Urine Glucose (UA) NEGATIVE, Urine Ketones 1+H, Urine Nitrite NEGATIVE, Urine Bilirubin NEGATIVE, Urine Urobilinogen 0.2, Urine Leukocyte Esterase NEGATIVE, Urine RBC (Auto) TRACEH, Urine RBC 0-2, Urine WBC NONE, Urine Renal Epithelial Cells 2-5, Urine Crystals NONE, Urine Bacteria NEGATIVE, Urine Casts NONE, Urine Mucus NEGATIVE, Urine Culture Indicated NO, Urine Opiates Screen POSITIVEH, Urine Oxycodone Screen POSITIVEH, Urine Methadone Screen NEGATIVE, Urine Propoxyphene Screen NEGATIVE, Urine Barbiturates Screen NEGATIVE, Ur Tricyclic Antidepressants Screen NEGATIVE, Urine Phencyclidine Screen NEGATIVE, Urine Amphetamines Screen NEGATIVE, Urine Methamphetamines Screen NEGATIVE, Urine Benzodiazepines Screen NEGATIVE, Urine Cocaine Screen NEGATIVE, Urine Cannabinoids Screen NEGATIVE 07/10/23 01:00: Influenza Type A (RT-PCR) Not Detected, Influenza Type B (RT-PCR) Not Detected, SARS-CoV-2 RNA (RT-PCR) Not Detected 07/10/23 05:13: White Blood Count 8.4, Red Blood Count 3.57L, Hemoglobin 8.3L, Hematocrit 27L, Mean Corpuscular Volume 75L, Mean Corpuscular Hemoglobin 23L, Mean Corpuscular Hemoglobin Concent 31L, Red Cell Distribution Width 17.5H, Platelet Count 384, Mean Platelet Volume 9.0, Immature Granulocyte % (Auto) 0, Neutrophils (%) (Auto) 88H, Lymphocytes (%) (Auto) 8L, Monocytes (%) (Auto) 2, Eosinophils (%) (Auto) 1, Basophils (%) (Auto) 0, Neutrophils # (Auto) 7.4, Lymphocytes # (Auto) 0.7L, Monocytes # (Auto) 0.2, Eosinophils # (Auto) 0.1, Basophils # (Auto) 0.0, Immature Granulocyte # (Auto) 0.0, Neutrophils % (Manual) 80, Lymphocytes % (Manual) 10, Monocytes % (Manual) 2, Eosinophils % (Manual) 2, Band Neutrophils 6, Hypochromasia SLIGHT, Elliptocytes SLIGHT, Sodium Level 139, Potassium Level 3.5L, Chloride Level 104, Carbon Dioxide Level 24, Anion Gap 11, Blood Urea Nitrogen 32H, Creatinine 1.49H, Estimat Glomerular Filtration Rate 48, BUN/Creatinine Ratio 21, Glucose Level 107H, Calcium Level 8.4L, Corrected Calcium 9.6, Phosphorus Level 2.4, Magnesium Level 2.7H, Total Bilirubin 0.6, Aspartate Amino Transf (AST/SGOT) 28, Alanine Aminotransferase (ALT/SGPT) 10, Alkaline Phosphatase 65, Total Protein 5.6L, Albumin 2.5L Microbiology 07/09/23 Urine Culture - Preliminary, Resulted 07/09/23 Gram Stain, Resulted Pending 07/09/23 Wound Culture - Preliminary, Resulted Gram Negative [place] Microbiology 07/09/23 Urine Culture - Preliminary, Resulted 07/09/23 Gram Stain, Resulted Pending 07/09/23 Wound Culture - Preliminary, Resulted Gram Negative [place] Assessment/Plan/Dx Bilateral lower extremity wounds -Foot ulcer gram stain showed a gram negative [place], moderate growth (currently on Vanc and Zosyn appropriately) -Lower extremity ultrasound conducted, results pending -Daily cleaning with Vashe solution -Change dressings daily with silver alginate and ABD pads -Apply barrier ointment to the periwound -Agree with current antibiotic choice -Patient is receptive to hospice care discussion and this seems reasonable in light of his desire to remain at home, need for pain control and desire to avoid aggressive arterial intervention for his severe PAD -Wound healing will likely be slow due to severe arterial disease and continued smoking Supervisory-Addendum Brief Verification & Attestation Participated in pt care: history, MDM, physical Personally performed: exam, history, MDM, supervision of care Care discussed with: Medical Student Procedures: n/a Results interpretation: Verified all documentation MD NIKOLAI Nunez JOSEPH D Jul 10, 2023 10:21 MELISSA TORRES MD Jul 10, 2023 11:48
[2023-07-10] MEDS ORDERED: morphine EXTENDED RELEASE 15 MG TABLET PO ONE (10:30)
[2023-07-10] MEDS ORDERED: GABAPENTIN 100 MG CAPSULE PO ONE (10:30)
[2023-07-10] MEDS ORDERED: LEVOTHYROXINE 150 MCG TABLET PO ONE (10:30)
--- NOTE | 2023-07-10 10:54 | Consultation-Cardiology ---
HPI-Cardiology Cardiology Consultation Date of Consultation 07/10/23 Date of Admission Time Seen by Provider: 10:49 Indication: Peripheral arterial disease HPI 78-year-old gentleman with a history of severe peripheral arterial disease, had bilateral iliac stents done in December 2022. Has chronic venous disease, severe rheumatoid arthritis and COPD. Has chronic recurrent leg wound. Admitted for sepsis and cellulitis, on my evaluation he was complaining of pain in his lower extremities. Had admitted for cellulitis in March and had wound culture grew Staph aureus and Corynebacterium, Currently receiving antibiotics. Still an active smoker. Denied any chest pain. Home Medications & Allergies Allergies: Coded Allergies: Sulfa (Sulfonamide Antibiotics) (Verified Allergy, Mild, GI UPSET, 04/12/23) Home Medication List Reviewed: Yes [id number] Hx Patient Social History Marital Status: Employed/Student: retired Recreational Drug Use: No Smoking Status: Current Everyday Smoker (1/2-a-day) Type Used: Cigarettes Recent Hopitalizations: No Alcohol Use?: No Immunizations Up To Date Tetanus Booster (TDap): Unknown Date of Pneumonia Vaccine: Aug 08, 2015 Past Medical History Discussed below Family Medical History Significant Family History: No Pertinent Family Hx, Diabetes Family History: Patient reports no known family medical history. Review of Systems-General Review of Systems Constitutional: see HPI, fever, malaise, weakness EENTM: see HPI, no symptoms reported Respiratory: see HPI; No cough, No dyspnea on exertion, No hemoptysis, No orthopnea, No phlegm, No short of breath, No stridor, No wheezing, No other Cardiovascular: see HPI; No chest pain, No edema, No Hx of Intervention, No palpitations, No syncope, No vascular heart diseas, No other Gastrointestinal: no symptoms reported Genitourinary: no symptoms reported, see HPI Musculoskeletal: see HPI Skin: see HPI Psychiatric/Neurological: No Symptoms Reported Reviewed Test Results Reviewed Test Results Lab Laboratory Tests Test 07/09/23 19:42 07/09/23 20:37 07/09/23 22:30 07/10/23 01:00 Range/Units White Blood Count 10.6 4.3-11.0 10^3/uL Red Blood Count 3.99 L 4.30-5.52 10^6/uL Hemoglobin 9.4 L 13.3-17.7 g/dL Hematocrit 30 L 40-54 % Mean Corpuscular Volume 76 L 80-99 fL Mean Corpuscular Hemoglobin 24 L 25-34 pg Mean Corpuscular Hemoglobin Concent 31 L 32-36 g/dL Red Cell Distribution Width 17.7 H 10.0-14.5 % Platelet Count 432 H 130-400 10^3/uL Mean Platelet Volume 9.2 9.0-12.2 fL Immature Granulocyte % (Auto) 0 % Neutrophils (%) (Auto) 79 H 42-75 % Lymphocytes (%) (Auto) 17 12-44 % Monocytes (%) (Auto) 3 0-12 % Eosinophils (%) (Auto) 0 0-10 % Basophils (%) (Auto) 0 0-10 % Neutrophils # (Auto) 8.4 H 1.8-7.8 10^3/uL Lymphocytes # (Auto) 1.8 1.0-4.0 10^3/uL Monocytes # (Auto) 0.3 0.0-1.0 10^3/uL Eosinophils # (Auto) 0.0 0.0-0.3 10^3/uL Basophils # (Auto) 0.0 0.0-0.1 10^3/uL Immature Granulocyte # (Auto) 0.0 0.0-0.1 10^3/uL Prothrombin Time 13.7 12.2-14.7 SEC INR Comment 1.0 0.8-1.4 Activated Partial Thromboplast Time 33 24-35 SEC Sodium Level 140 135-145 MMOL/L Potassium Level 3.9 3.6-5.0 MMOL/L Chloride Level 102 98-107 MMOL/L Carbon Dioxide Level 24 21-32 MMOL/L Anion Gap 14 5-14 MMOL/L Blood Urea Nitrogen 38 H 7-18 MG/DL Creatinine 1.70 H 0.60-1.30 MG/DL Estimat Glomerular Filtration Rate 41 BUN/Creatinine Ratio 22 Glucose Level 90 70-105 MG/DL Lactic Acid Level 1.87 0.50-2.00 MMOL/L Calcium Level 9.0 8.5-10.1 MG/DL Corrected Calcium 9.7 8.5-10.1 MG/DL Magnesium Level 1.2 L 1.6-2.4 MG/DL Total Bilirubin 0.7 0.1-1.0 MG/DL Aspartate Amino Transf (AST/SGOT) 23 5-34 U/L Alanine Aminotransferase (ALT/SGPT) 10 0-55 U/L Alkaline Phosphatase 63 40-136 U/L B-Type Natriuretic Peptide 822.5 H <100.0 PG/ML Total Protein 6.8 6.4-8.2 GM/DL Albumin 3.1 L 3.2-4.5 GM/DL TSH [place] Testing 1.85 0.35-4.94 UIU/ML Serum Alcohol < 10 <10 MG/DL Erythrocyte Sedimentation Rate 16 0-30 MM/HR C-Reactive Protein High Sensitivity 16.62 H 0.00-0.50 MG/DL Urine Color YELLOW Urine Clarity CLEAR Urine pH 7 5-9 Urine Specific [place] 1.015 L 1.016-1.022 Urine Protein 2+ H NEGATIVE Urine Glucose (UA) NEGATIVE NEGATIVE Urine Ketones 1+ H NEGATIVE Urine Nitrite NEGATIVE NEGATIVE Urine Bilirubin NEGATIVE NEGATIVE Urine Urobilinogen 0.2 < = 1.0 MG/DL Urine Leukocyte Esterase NEGATIVE NEGATIVE Urine RBC (Auto) TRACE H NEGATIVE Urine RBC 0-2 /HPF Urine WBC NONE /HPF Urine Renal Epithelial Cells 2-5 /HPF Urine Crystals NONE /LPF Urine Bacteria NEGATIVE /HPF Urine Casts NONE /LPF Urine Mucus NEGATIVE /LPF Urine Culture Indicated NO Urine Opiates Screen POSITIVE H NEGATIVE Urine Oxycodone Screen POSITIVE H NEGATIVE Urine Methadone Screen NEGATIVE NEGATIVE Urine Propoxyphene Screen NEGATIVE NEGATIVE Urine Barbiturates Screen NEGATIVE NEGATIVE Ur Tricyclic Antidepressants Screen NEGATIVE NEGATIVE Urine Phencyclidine Screen NEGATIVE NEGATIVE Urine Amphetamines Screen NEGATIVE NEGATIVE Urine Methamphetamines Screen NEGATIVE NEGATIVE Urine Benzodiazepines Screen NEGATIVE NEGATIVE Urine Cocaine Screen NEGATIVE NEGATIVE Urine Cannabinoids Screen NEGATIVE NEGATIVE Influenza Type A (RT-PCR) Not Detected Not Detecte Influenza Type B (RT-PCR) Not Detected Not Detecte SARS-CoV-2 RNA (RT-PCR) Not Detected Not Detecte Test 07/10/23 05:13 Range/Units White Blood Count 8.4 4.3-11.0 10^3/uL Red Blood Count 3.57 L 4.30-5.52 10^6/uL Hemoglobin 8.3 L 13.3-17.7 g/dL Hematocrit 27 L 40-54 % Mean Corpuscular Volume 75 L 80-99 fL Mean Corpuscular Hemoglobin 23 L 25-34 pg Mean Corpuscular Hemoglobin Concent 31 L 32-36 g/dL Red Cell Distribution Width 17.5 H 10.0-14.5 % Platelet Count 384 130-400 10^3/uL Mean Platelet Volume 9.0 9.0-12.2 fL Immature Granulocyte % (Auto) 0 % Neutrophils (%) (Auto) 88 H 42-75 % Lymphocytes (%) (Auto) 8 L 12-44 % Monocytes (%) (Auto) 2 0-12 % Eosinophils (%) (Auto) 1 0-10 % Basophils (%) (Auto) 0 0-10 % Neutrophils # (Auto) 7.4 1.8-7.8 10^3/uL Lymphocytes # (Auto) 0.7 L 1.0-4.0 10^3/uL Monocytes # (Auto) 0.2 0.0-1.0 10^3/uL Eosinophils # (Auto) 0.1 0.0-0.3 10^3/uL Basophils # (Auto) 0.0 0.0-0.1 10^3/uL Immature Granulocyte # (Auto) 0.0 0.0-0.1 10^3/uL Neutrophils % (Manual) 80 % Lymphocytes % (Manual) 10 % Monocytes % (Manual) 2 % Eosinophils % (Manual) 2 % Band Neutrophils 6 % Hypochromasia SLIGHT Elliptocytes SLIGHT Sodium Level 139 135-145 MMOL/L Potassium Level 3.5 L 3.6-5.0 MMOL/L Chloride Level 104 98-107 MMOL/L Carbon Dioxide Level 24 21-32 MMOL/L Anion Gap 11 5-14 MMOL/L Blood Urea Nitrogen 32 H 7-18 MG/DL Creatinine 1.49 H 0.60-1.30 MG/DL Estimat Glomerular Filtration Rate 48 BUN/Creatinine Ratio 21 Glucose Level 107 H 70-105 MG/DL Calcium Level 8.4 L 8.5-10.1 MG/DL Corrected Calcium 9.6 8.5-10.1 MG/DL Phosphorus Level 2.4 2.3-4.7 MG/DL Magnesium Level 2.7 H 1.6-2.4 MG/DL Total Bilirubin 0.6 0.1-1.0 MG/DL Aspartate Amino Transf (AST/SGOT) 28 5-34 U/L Alanine Aminotransferase (ALT/SGPT) 10 0-55 U/L Alkaline Phosphatase 65 40-136 U/L Total Protein 5.6 L 6.4-8.2 GM/DL Albumin 2.5 L 3.2-4.5 GM/DL Physical Exam Physical Exam Vital Signs Vital Signs - First Documented 07/09/23 07/09/23 19:40 20:05 Temp 37.4 Pulse 133 Resp 16 B/P (MAP) 105/79 (88) Pulse Ox 93 O2 Delivery Room Air O2 Flow Rate 2.00 Capillary Refill : Less Than 3 Seconds Height, Weight, BMI Height: 5'9.00" Weight: 142lbs. 8.0oz. [id number]; 24.06 BMI Method:Estimated General Appearance: No Apparent Distress, WD/WN Eyes: Bilateral Eye Normal Inspection, Bilateral Eye PERRL, Bilateral Eye EOMI HEENT: PERRL/EOMI, TMs Normal, Normal ENT Inspection, Pharynx Normal, Moist Mucous Membranes Neck: Full Range of Motion, Normal Inspection, Non Tender, Supple, Carotid Bruit Respiratory: Chest Non Tender, Normal Breath Sounds, No Accessory Muscle Use, No Respiratory Distress Cardiovascular: Regular Rate, Rhythm, No Edema, No Gallop, No JVD, No Murmur, Normal Peripheral Pulses Gastrointestinal: Normal Bowel Sounds, No Organomegaly, No Pulsatile Mass, Non Tender, Soft Back: Normal Inspection, No CVA Tenderness, No Vertebral Tenderness Extremity: Normal Capillary Refill, Normal Inspection, Normal Range of Motion, Non Tender, No Calf Tenderness, No Pedal Edema Neurologic/Psychiatric: Alert, Oriented x3, No Motor/Sensory Deficits, Normal Mood/Affect Skin: Normal Color, Warm/Dry Lymphatic: No Adenopathy A/P-Cardiology Admission Diagnosis Cellulitis Peripheral arterial disease Hypertension Hyperlipidemia Assessment/Plan Cellulitis of the lower extremities, nonhealing ulcer on the right lower extremity Peripheral angiogram done 12/04/16 revealed moderate atherosclerotic disease on the left lower extremity, the anterior tibial artery is severely diseased on the left lower extremity but the ulcer on the left lower extremity has healed. Moder ate disease of the right lower extremity with good flow, with three-vessel flow down to the f Medical therapy was recommended. The ulcer has healed. SEAMUS in November 2017 was abnormal and it was 0.9 on the right and 0.7 on the left, TBI 0.48 on the right and 0.34 in the left. Repeat ABIs in December 2018 Repeat SEAMUS done on October 21, 2022 and it was abnormal with 0.78 and TBI 0.2, on the left is 0.42 SEAMUS and absent of waveform on the toe Underwent peripheral angiogram on November 25, 2022 showing infrarenal AAA with severe stenosis at the right common iliac artery at the origin and severe stenosis at amirah left common iliac arter at amirah prox portion followed by aneurysm. Moderate to severe diffuse disease at eht left SFA with 1 area of aneurysmal dilatation. Was referred to Dr. Thomas and underwent bilat iliac stenting December 2022. Patient has worsening ulcer, cellulitis, receiving antibiotics, I will evaluate arterial Doppler Might require repeat angiogram Congestive heart failure, nonischemic cardiomyopathy, acute on chronic left ventricular systolic dysfunction 2D echo was done on July 10, 2023 with ejection fraction 35 to 40% with sever e pulmonary hypertension. Maximize medical therapy and monitor I will start her on carvedilol and losartan and Jardiance and evaluate tolerance and response Mild coronary artery disease per cardiac catheterization done in October 2016. Deterioration in left ventricular function, planning to evaluate Lexiscan stress test once clinically more stable Generalized weakness and loss of energy. Fatigue. Significant weight loss. History of anoxic encephalopathy and pneumonia and sepsis early in October 2016, improved with aggressive therapy. Back to his baseline. Continue to monitor as an outpatient History of C. difficile infection requiring partial colectomy Status post abdominal hernia repair surgery and recovered well. Mild bilateral carotid stenosis, ultrasound was done in December 2018. Continue to monitor Small infrarenal abdominal aortic aneurysm, conservative management is rec ommended Hypertension, Starting Coreg and losartan and evaluate tolerance and response Hyperlipidemia, no recent lipid profile, I will evaluate lipid profile and metabolic profile Hyperthyroidism, history of hypothyroidism and Levothroid, managed by primary care physician History of pulmonary hypertension, continue to monitor History of rheumatoid arthritis. COPD, managed and followed by primary care physician Tobaccoism, educated on the importance of smoking cessation TORY HALL MD Jul 10, 2023 10:54
[2023-07-10 11:31] LABS: CHOLESTEROL 124 MG/DL (< 200); HDL CHOLESTEROL 29 MG/DL (40-60); TRIGLYCERIDES 93 MG/DL (<150); VLDL CHOLESTEROL 19 MG/DL (5-40)
[2023-07-10] MEDS ORDERED: MORP-68 PO (12:29)
[2023-07-10] MEDS ORDERED: HYDR25TA4 PO (12:29)
[2023-07-10] MEDS ORDERED: ESOM40CA52 PO (12:29)
[2023-07-10] MEDS ORDERED: GABA-486 PO (12:29)
[2023-07-10] MEDS ORDERED: BUDE10.2 IH (12:29)
[2023-07-10] MEDS ORDERED: OXYC-556 PO (12:29)
[2023-07-10] MEDS ORDERED: TIZA-186 PO (12:29)
[2023-07-10] MEDS ORDERED: ASPI-1238 PO (12:29)
[2023-07-10] MEDS ORDERED: LEVO150T6 PO (12:29)
[2023-07-10] MEDS ORDERED: AMT10T PO (12:32)
[2023-07-10] MEDS ORDERED: FURO20TA4 PO (12:32)
--- NOTE | 2023-07-10 13:46 | History & Physical-Hospitalist ---
KIN DAVIDSON 07/10/23 1346: History of Present Illness HPI/Chief Complaint Benjamin is a 78yo male who came to the ED with leg pain. He was agitated when we spoke and was a poor historian. He described associated leg cramps. Benjamin endorsed some shortness of breath and sternal chest pain. He also reported some dysuria. He has a history of chronic wounds to his legs, opioid dependency, hypertension, COPD, RA, PAD, anemia, and renal failure. Mr. Shaffer has had joint replacement surgery,bowel resection due to Cdiff and cardiac stents. He is alergic to sulfa. He was placed on Zosyn and Vancomyacin in the ED for empiric treatment of infection. He is a smoker and denies alcohol and drug use.When Benjamin arrived to the ED he was tachycardic and hypotensive with concerns for septic shock, but this seems to have resolved. Benjamin described an inability to walk and has been unable to keep up with his wound care with Home Health. Erythema and ulcerations in various stages of healing were observed on both legs, mostly on the anterior surfaces. Sensation is intact BL but LE pulses are severely diminished. Dr. Pabon asked about his code status and he confirmed he would like to become DNR. When asked about follow up with vascular surgery and have treatment for chronic CAD and leg wounds, he denied wanting to pursue this further and endorsed interest in comfort care. He agreed to going on hospice. Per previous notes, peripheral angiogram showed: -MODERATE SIZED INFRA-RENAL ABDOMINAL AORTIC ANEURYSM -SEVERE STENOSIS AT RIGHT COMMON ILIAC ARTERY AT ORIGIN -SEVERE STENOSIS OF LEFT COMMON ILIAC ARTERY AT PROXIMAL PORTION FOLLOWED BY ANEURYSM. -MODERATE TO SEVERE STENOSIS DIFFUSE DISEASE OF LEFT S.F.A. WITH ONE AREA OF ANEURYSMAL DILATION -MODERATE DIFFUSE DISEASED OF RIGHT S.F.A. Labs showed an elevated BNP at 822.5. He also had elevated BUN and CRP, likely due to renal failure and renal stenosis. UA was non-contributory. Tox screen positive for opiates. Microbiology of leg ucler cultures came back positive for gram negative rods. Will continue vancomyacin and zosyn. CXR:Unchanged cardiomegaly with central vascular congestion and interstitial edema versus infiltrate. No pneumothorax or pleural fluid. EKG: Ventricular pacemaker abnormal EKG - cardiology consulted Echo: showed left ventricular hypertrophy with preserved EF (45-50%) see report for details LE US report pending Source: patient, RN/MD Exam Limitations: clinical condition Date Seen 07/10/23 Time Seen by a Provider: 08:45 Attending Physician Ramy Ely MD PCP Admitting Physician: Teri Parsons MD Attending Physician: Leno Pabon MD Referring Physician Date of Admission Jul 09, 2023 at 21:15 Home Medications & Allergies Home Medications Reviewed patient Home Medication Reconciliation performed by pharmacy medication reconciliations technician preventative medicine and/or nursing. Patients Allergies have been reviewed. Allergies Allergies Coded Allergies Sulfa (Sulfonamide Antibiotics) (Verified Allergy, Mild, GI UPSET, 04/12/23) Past [id number] Hx Patient Social History Marrital Status: Employed/Student: retired Tobacco Use?: Yes Tobacco type used: Cigarettes Smoking Status: Current Everyday Smoker (1/2-a-day) Substance use?: No Alcohol Use?: No Pt feels they are or have been: No Immunizations Up To Date First/Initial COVID19 Vaccinat: Never had Second COVID19 Vaccination Kal[place]: Never had Tetanus Booster (TDap): More Than 5 Years Hepatitis A: No Hepatitis B: No Date of Pneumonia Vaccine: Aug 08, 2015 Seasonal Allergies Seasonal Allergies: Yes Current Status Advance Directives: No Communicates: Verbally Primary Language: Djiboutian Preferred Spoken Language: [place]ib[place]ian Is interpretation needed?: No Past Medical History Surgeries: Abdominal, Bowel Surgery, Cardiac, Coronary Stent, Joint Replacement, Orthopedic Chronic Bronchitis, COPD, Emphysema Currently Using CPAP: No Currently Using BIPAP: No Cardiomyopathy, Chronic Edema/Swelling, Coronary Artery Disease, High Cho lesterol, Hypertension, Peripheral Vascular, Valvular Heart Disease Sexually Transmitted Disease: Yes HIV/AIDS: No Kidney Stones, Renal Failure Colitis, Gastroesophageal Reflux, Hemorrhoids, C-Diff Osteoporosis, Arthritis, Rheumatoid Arthritis Hypothyroidsim Loss of Vision: Bilateral Hearing Impairment: Denies Anxiety Eczema, Psoriasis Blood Disorders: Yes (HX ANEMIA) Adverse Reaction/Blood Tranf: No (HAS HAD BLOOD WITH NO REACTION) Family Medical History Patient reports no known family medical history. No Pertinent Family Hx, Diabetes SOCIAL HISTORY: -SMOKING -ETOH -DRUG HE HAS SEVERE PERIPHERAL ARTERY DISEASE, AND HAD PERIPHERAL ANGIOGRAM BY DR. HALL IN NOVEMBER OF THIS YEAR/2022 SHOWING: -MODERATE SIZED INFRA-RENAL ABDOMINAL AORTIC ANEURYSM -SEVERE STENOSIS AT RIGHT COMMON ILIAC ARTERY AT ORIGIN -SEVERE STENOSIS OF LEFT COMMON ILIAC ARTERY AT PROXIMAL PORTION FOLLOWED BY ANEURYSM. -MODERATE TO SEVERE STENOSIS DIFFUSE DISEASE OF LEFT S.F.A. WITH ONE AREA OF ANEURYSMAL DILATION -MODERATE DIFFUSE DISEASED OF RIGHT S.F.A. PT WAS REFERRED TO VASCULAR SURGERY, BUT PT DID NOT FOLLOW UP ADVISED. Review of Systems Constitutional: No chills, No diaphoresis, No fever, No malaise EENTM: No blurred vision, No double vision, No eye pain, No vision loss Respiratory: No cough, No hemoptysis; short of breath Cardiovascular: chest pain (sternal region) Gastrointestinal: No abdominal pain, No nausea, No vomiting Genitourinary: dysuria; No incontinence Musculoskeletal: No back pain; joint swelling (RA), muscle cramps (LE BL); No muscle twitching Skin: change in color (erythema), dryness, lesions (chronic ulcerations BL) Psychiatric/Neurological: Anxiety; Denies Headache, Denies Numbness, Denies Paresthesia Physical Exam Physical Exam Vital Signs Vital Signs - First Documented 07/09/23 07/09/23 19:40 20:05 Temp 37.4 Pulse 133 Resp 16 B/P (MAP) 105/79 (88) Pulse Ox 93 O2 Delivery Room Air O2 Flow Rate 2.00 Capillary Refill : Less Than 3 Seconds Height, Weight, BMI Height: 5'9.00" Weight: 142lbs. 8.0oz. 64.405206uv; 24.06 BMI Method:Estimated General Appearance: Chronically ill, Mild Distress Eyes: Bilateral Eye PERRL HEENT: No Photophobia, No Scleral Icterus (L), No Scleral Icterus (R) Neck: Full Range of Motion, Non Tender, Supple Respiratory: Lungs Clear, No Respiratory Distress; No Stridor Cardiovascular: No Regular Rate, Rhythm (irregular rhythm); No Edema; No Normal Peripheral Pulses (diminished in LE BL); Tachycardia Gastrointestinal: No Organomegaly, Non Tender, Soft Rectal: Deferred Back: No CVA Tenderness, No Vertebral Tenderness Extremity: Inflammation (BL ulcerations), Swelling (BL ulcerations) Neurologic/Psychiatric: Alert, Oriented x3, Other (agitated, unpleasant) Skin: No Cool, No Cyanosis; Erythema, Other (ulcerations BL) Lymphatic: No Adenopathy Results Results/Procedures Labs Laboratory Tests 07/09/23 19:42 07/10/23 05:13 Patient resulted labs reviewed. Assessment/Plan Admission Diagnosis septic shock Admission Status: Inpatient Order (span 2 midnights) Reason for Inpatient Admission: wound care, IV antibiotics Assessment and Plan 1. BL Acute on Chronic skin ulcerations due to PAD zosyn, vancomyacin, consult wound care 2. Septic Shock Resolved 3. PAD US LE - pending vascular surgery consult - pt deferred 4. Left Ventricular Hypertrophy -htn control -start B gurpreet 5. Cardiac arrhythmia -consult cardiology 6. COPD home meds, abluterol inhaler 7. RA NSAIDs prn 8. Opioid Use disorder continue home regimen 9. Hospice SW consult Diagnosis/Problems Diagnosis/Problems (1) Chronic narcotic use Status: Acute (2) Chronic wound of extremity Status: Acute (3) Rheumatoid arthritis Status: Chronic (4) CAD (coronary artery disease) Status: Chronic (5) Severe peripheral arterial disease Status: Acute LENO PABON MD 07/10/23 1552: History of Present Illness Time Seen by a Provider: 10:00 Past Fluqbuo-Xhzquw-Cqsrcw Hx Patient Social History Tobacco Use?: Yes Smoking Status: Current Everyday Smoker Substance use?: No Alcohol Use?: No Family Medical History Patient reports no known family medical history. No Pertinent Family Hx Results Results/Procedures Imaging: Reviewed Imaging Films, Reviewed Imaging Report Assessment/Plan Admission Diagnosis Admission Status: Inpatient Order (span 2 midnights) Reason for Inpatient Admission: cellulitis Assessment and Plan Admitted with septic shock due to wound infection. Chronic lower extremity wounds present due to peripheral arterial disease. He expresses no desire for further intervention. He would like to return home on hospice. Palliative care consulted. Diagnosis/Problems Diagnosis/Problems (1) Severe peripheral arterial disease Status: Acute (2) Chronic narcotic use Status: Acute (3) Chronic wound of extremity Status: Acute (4) Rheumatoid arthritis Status: Chronic (5) CAD (coronary artery disease) Status: Chronic (6) Wound infection Status: Acute Supervisory-Addendum Brief Verification & Attestation Participated in pt care: history, MDM, physical Personally performed: exam, history, MDM, supervision of care Care discussed with: Medical Student Procedures: n/a A medical student performed and documented this service in my presence. I reviewed and verified all information documented by the medical student and made modifications to such information, when appropriate. I personally performed the physical exam and medical decision making. KIN DAVIDSON Jul 10, 2023 13:46 LENO PABON MD Jul 10, 2023 15:52
--- NOTE | 2023-07-10 15:16 | Diagnostic Imaging Report ---
PROCEDURE: US Bilateral lower extremity arterial. TECHNIQUE: Multiple real-time grayscale images are obtained through both lower extremity arterial systems with color Doppler imaging and color Doppler spectral analysis. INDICATION: Bilateral lower extremity cellulitis. Sepsis. COMPARISON: None. FINDINGS: Monophasic waveforms are seen in the bilateral common femoral, profunda femoris, superficial femoral, popliteal, anterior tibial, and dorsalis pedis arteries. Elevated flow velocities are seen within the left profunda femoris artery measuring 291 cm/s. Mildly elevated flow velocities are seen in the bilateral common and superficial femoral arteries. Very diminutive peak systolic velocity is seen in the left dorsalis pedis artery measuring 6.5 cm/s. Moderate atherosclerotic plaque is seen throughout the bilateral lower extremity arterial systems. IMPRESSION: 1. Monophasic waveforms throughout the bilateral lower extremity arterial systems. 2. Moderate atherosclerotic plaque in the bilateral lower extremity arterial systems. 3. Diminished peak systolic velocity within the left dorsalis pedis artery of 6.5 cm/s. 4. Elevated flow velocity in the left profunda femoris artery of 291 cm/s. Dictated by: Dictated on workstation # [id number]
[2023-07-10 16:59] VITALS: BP 125/87
[2023-07-10] MEDS: morphine EXTENDED RELEASE 15 MG TABLET PO SCH (18:49)
[2023-07-10 20:00] VITALS: BP 107/66
[2023-07-10] MEDS ORDERED: VANCOMYCIN 1 GM/NS 250 ML IVPB IV SCH ×2 (20:00)
[2023-07-10] MEDS: GABAPENTIN 100 MG CAPSULE PO SCH (20:15)
[2023-07-11] VITALS (9 sets, daily range): BP systolic 91–125; BP diastolic 55–69
[2023-07-11] MEDS: morphine EXTENDED RELEASE 15 MG TABLET PO SCH ×3 (02:32→18:01)
[2023-07-11] MEDS: PIPERACILLIN/Tazobactam 4.5 GM in NS (IVPB) 100 ML 100 ML IV SCH (02:32)
[2023-07-11] MEDS: RT-Ipratropium/Albuterol NEB 3 ML VIAL INH SCH ×5 (02:40→18:31)
[2023-07-11 05:26] LABS: BASOPHILS % (AUTO) 0 % (0-10); EOSINOPHILS # (AUTO) 0.4 10^3/uL (0.0-0.3); EOSINOPHILS % (AUTO) 6 % (0-10); HEMATOCRIT 27 % (40-54); HEMOGLOBIN 8.1 g/dL (13.3-17.7); LYMPHOCYTES # (AUTO) 1.1 10^3/uL (1.0-4.0); LYMPHOCYTES % (AUTO) 16 % (12-44); MEAN CORPUSCULAR HEMOGLOBIN 23 pg (25-34); MEAN CORPUSCULAR HGB CONC 30 g/dL (32-36); MEAN CORPUSCULAR VOLUME 75 fL (80-99); MEAN PLATELET VOLUME 8.9 fL (9.0-12.2); MONOCYTES # (AUTO) 0.4 10^3/uL (0.0-1.0); MONOCYTES % (AUTO) 6 % (0-12); NEUTROPHILS # (AUTO) 5.2 10^3/uL (1.8-7.8); NEUTROPHILS % (AUTO) 72 % (42-75); PLATELET COUNT 366 10^3/uL (130-400); WHITE BLOOD COUNT 7.3 10^3/uL (4.3-11.0)
[2023-07-11 05:44] LABS: ALBUMIN 2.5 GM/DL (3.2-4.5)
[2023-07-11 05:45] LABS: POTASSIUM 3.9 MMOL/L (3.6-5.0)
[2023-07-11 05:46] LABS: CALCIUM 8.1 MG/DL (8.5-10.1)
[2023-07-11] MEDS: LEVOTHYROXINE 150 MCG TABLET PO SCH (05:46)
[2023-07-11 05:47] LABS: TOTAL PROTEIN 5.6 GM/DL (6.4-8.2)
[2023-07-11 05:49] LABS: BILIRUBIN,TOTAL 0.4 MG/DL (0.1-1.0)
[2023-07-11 05:50] LABS: PHOSPHORUS 2.3 MG/DL (2.3-4.7)
[2023-07-11 05:51] LABS: CREATININE SERUM 1.44 MG/DL (0.60-1.30)
[2023-07-11] MEDS ORDERED: MAGNESIUM 1 GM/100 ML IVPB 100 ML IV SCH (06:00)
[2023-07-11] MEDS ORDERED: POTASSIUM CL 10MEQ/50ML IVPB 50 ML IV SCH (06:00)
[2023-07-11] MEDS ORDERED: POTASSIUM CHLORIDE 20 MEQ TABLET PO SCH (06:00)
[2023-07-11] MEDS: GABAPENTIN 100 MG CAPSULE PO SCH ×2 (07:58→21:01)
[2023-07-11] MEDS: ENOXAPARIN 80 MG/0.8 ML SYRINGE SC SCH ×2 (07:58→21:00)
[2023-07-11] MEDS: AMOXICILLIN/Clavulanate 875 MG TABLET PO SCH ×2 (08:11→18:01)
--- NOTE | 2023-07-11 08:34 | Cardiology Progress Note ---
Subjective Date Seen by Provider: Jul 11, 2023 Time Seen by Provider: 08:30 Subjective/Events-last exam Patient is laying in bed, no new complaints, reports productive cough and some dyspnea. Focused Exam Lactate Level 07/09/23 19:42: Lactic Acid Level 1.87 Objective-Cardiology Exam Last Set of Vital Signs Vital Signs 07/11/23 11:54 Temp 36.0 Pulse 87 Resp 16 B/P (MAP) 97/59 (72) Pulse Ox 95 O2 Delivery Nasal Cannula O2 Flow Rate 2.00 I&O Intake and Output 07/11/23 00:00 Intake Total 450 ml Output Total 350 ml Balance 100 ml Intake Oral 50 ml IV Total 400 ml Output Urine Total 350 ml # Urine Diapers 2 General: Alert, Oriented X3 HEENT: Atraumatic, PERRLA Lungs: Clear to Auscultation, Normal Air Movement Heart: Regular Rate, Normal S1, Normal S2 Abdomen: Normal Bowel Sounds, Soft Extremities: Other (BLE edema, wounds to anterior johnston bilat) Results Lab Laboratory Tests 07/11/23 05:21 A/P-Cardiology Admission Diagnosis Cellulitis Peripheral arterial disease Hypertension Hyperlipidemia Assessment/Plan Cellulitis of the lower extremities, nonhealing ulcer on the right lower extremity Peripheral angiogram done 12/04/16 revealed moderate atherosclerotic disease on the left lower extremity, the anterior tibial artery is severely diseased on the left lower extremity but the ulcer on the left lower extremity has healed. Moderate disease of the right lower extremity with good flow, with three-vessel flow down to the f Medical therapy was recommended. The ulcer has healed. SEAMUS in November 2017 was abnormal and it was 0.9 on the right and 0.7 on the left, TBI 0.48 on the right and 0.34 in the left. Repeat ABIs in December 2018 Repeat SEAMUS done on October 21, 2022 and it was abnormal with 0.78 and TBI 0.2, on the left is 0.42 SEAMUS and absent of waveform on the toe Underwent peripheral angiogram on November 25, 2022 showing infrarenal AAA with severe stenosis at the right common iliac artery at the origin and severe stenosis at [place] left common iliac arter at [facility] prox portion followed by aneur ysm. Moderate to severe diffuse disease at [facility] left SFA with 1 area of aneurysmal dilatation. Was referred to Dr. Thomas and underwent bilat iliac stenting December 2022. Patient has worsening ulcer, cellulitis, receiving antibiotics,abnormal arterial duples Planning for repeat angiogram tomorrow Congestive heart failure, nonischemic cardiomyopathy, acute on chronic left ventricular systolic dysfunction 2D echo was done on July 10, 2023 with ejection fraction 35 to 40% with severe pulmonary hypertension. Maximize medical therapy and monitor I will start her on carvedilol and losartan and Jardiance and evaluate tolerance and response Mild coronary artery disease per cardiac catheterization done in October 2016. Deterioration in left ventricular function, planning to evaluate Lexiscan stress test once clinically more stable Generalized weakness and loss of energy. Fatigue. Significant weight loss. History of anoxic encephalopathy and pneumonia and sepsis early in October 2016, improved with aggressive therapy. Back to his baseline. Continue to monitor as an outpatient History of C. difficile infection requiring partial colectomy Status post abdominal hernia repair surgery and recovered well. Mild bilateral carotid stenosis, ultrasound was done in December 2018. Continue to monitor Small infrarenal abdominal aortic aneurysm, conservative management is recommended Hypertension, Starting Coreg and losartan and evaluate tolerance and response Hyperlipidemia, no recent lipid profile, I will evaluate lipid profile and metabolic profile Hyperthyroidism, history of hypothyroidism and Levothroid, managed by primary care physician History of pulmonary hypertension, continue to monitor History of rheumatoid arthritis. COPD, managed and followed by primary care physician Tobaccoism, educated on the importance of smoking cessation Supervisory-Addendum Brief Supervisory Addendum Participated in pt care: history, MDM, physical Personally performed: exam, history, MDM Care discussed with: LAKESHIA Results interpretation: Verified all documentation Notes: Patient was seen and evaluated with Dulce, examination performed, management plan was discussed, agree with the current scribed note, I made few changes to the note using Italic font Patient was seen at bedside laying down comfortably, abnormal arterial Doppler Discussed the management plan recommended peripheral angiogram which will be done tomorrow, continue on current treatment Monitor blood pressure. DULCE CHRISTIAN PA-C Jul 11, 2023 08:34 TORY HALL MD Jul 11, 2023 13:05
[2023-07-11] MEDS: carvediloL 3.125 MG TABLET PO SCH ×2 (09:55→21:00)
[2023-07-11] MEDS: LOSARTAN 25 MG TABLET PO SCH (09:56)
[2023-07-11] MEDS: EMPAGLIFLOZIN 10 MG TABLET PO SCH (09:56)
--- NOTE | 2023-07-11 15:16 | Progress Note - Hospitalist ---
Subjective HPI/CC On Admission Date Seen by Provider: Jul 11, 2023 Time Seen by Provider: 11:30 Benjamin is a 78yo male who came to the ED with leg pain. He was agitated when we spoke and was a poor historian. He described associated leg cramps. Benjamin endorsed some shortness of breath and sternal chest pain. He also reported some dysuria. He has a history of chronic wounds to his legs, opioid dependency, hypertension, COPD, RA, PAD, anemia, and renal failure. Mr. Shaffer has had joint replacement surgery,bowel resection due to Cdiff and cardiac stents. He is alergic to sulfa. He was placed on Zosyn and Vancomyacin in the ED for empiric treatment of infection. He is a smoker and denies alcohol and drug use.When Benjamin arrived to the ED he was tachycardic and hypotensive with concerns for septic shock, but this seems to have resolved. Benjamin described an inability to walk and has been unable to keep up with his wound care with Home Health. Erythema and ulcerations in various stages of healing were observed on both legs, mostly on the anterior surfaces. Sensation is intact BL but LE pulses are severely diminished. Dr. Pabon asked about his code status and he confirmed he would like to become DNR. When asked about follow up with vascular surgery and have treatment for chronic CAD and leg wounds, he denied wanting to pursue this further and endorsed interest in comfort care. He agreed to going on hospice. Per previous notes, peripheral angiogram showed: -MODERATE SIZED INFRA-RENAL ABDOMINAL AORTIC ANEURYSM -SEVERE STENOSIS AT RIGHT COMMON ILIAC ARTERY AT ORIGIN -SEVERE STENOSIS OF LEFT COMMON ILIAC ARTERY AT PROXIMAL PORTION FOLLOWED BY ANEURYSM. -MODERATE TO SEVERE STENOSIS DIFFUSE DISEASE OF LEFT S.F.A. WITH ONE AREA OF ANEURYSMAL DILATION -MODERATE DIFFUSE DISEASED OF RIGHT S.F.A. Labs showed an elevated BNP at 822.5. He also had elevated BUN and CRP, likely due to renal failure and renal stenosis. UA was non-contributory. Tox screen positive for opiates. Microbiology of leg ucler cultures came back positive for gram negative rods. Will continue vancomyacin and zosyn. CXR:Unchanged cardiomegaly with central vascular congestion and interstitial edema versus infiltrate. No pneumothorax or pleural fluid. EKG: Ventricular pacemaker abnormal EKG - cardiology consulted Echo: showed left ventricular hypertrophy with preserved EF (45-50%) see report for details LE US report pending Subjective/Events-last exam He is having pain. He has no other complaints. Focused Exam Lactate Level 07/09/23 19:42: Lactic Acid Level 1.87 Objective Exam Vital Signs Vital Signs Date Time Temp Pulse Resp B/P (MAP) Pulse Ox O2 Delivery O2 Flow Rate FiO2 07/11/23 13:35 93 Nasal Cannula 2.00 07/11/23 11:54 36.0 87 16 97/59 (72) Capillary Refill : Less Than 3 Seconds General Appearance: No Apparent Distress, Chronically ill Respiratory: No Respiratory Distress, Decreased Breath Sounds Cardiovascular: Regular Rate, Rhythm, No Murmur Gastrointestinal: Normal Bowel Sounds, Soft Extremity: Normal Inspection, Pedal Edema Neurologic/Psychiatric: Alert, Motor Weakness Skin: Erythema, Rash Results/Procedures Lab Laboratory Tests 07/11/23 05:21 Patient resulted labs reviewed. Imaging: Reviewed Imaging Films, Reviewed Imaging Report Assessment/Plan Assessment and Plan Assess & Plan/Chief Complaint Septic shock, resolved PAD Wound infection Chronic lower extremity wounds Chronic opiate use Debility Cardiology planning for peripheral angiogram tomorrow Continue pain regimen PT/OT COPD RA HTN HLD CAD Chronic HFrEF Tobacco abuse Diagnosis/Problems Diagnosis/Problems (1) Severe peripheral arterial disease Status: Acute (2) Chronic narcotic use Status: Acute (3) Chronic wound of extremity Status: Acute (4) Rheumatoid arthritis Status: Chronic (5) CAD (coronary artery disease) Status: Chronic (6) Wound infection Status: Acute LENO PABON MD Jul 11, 2023 15:16
--- NOTE | 2023-07-11 17:35 | Physician Query-Final Dx ---
EVA RAZA 07/11/23 1735: Final Diagnosis Give Final Diagnosis Please give Final Diagnosis The medical record reflects the following clinical scenario: The patient, in the setting of History/Risk factors, smoker, history of CAD and cardiomyopathy and valvular heart disease Clinical Findings "2D echo was done on July 10, 2023 with ejection fraction 35 to 40% with severe pulmonary hypertension", Admission BNP 822 Treatment start her on carvedilol and losartan and Jardiance, I and O, daily weight, cardiology consult, Echo, Question: Do you agree with the impression of CHF/Acute on chronic left ventricular systolic dysfunction per Susan Mccoy no ? Yes; will document CHF/Acute on chronic left ventricular systolic dysfunction, present on admission In the Progress Notes No; will continue current documentation in the Progress Notes Other; will document explanation of clinical findings Clinically undetermined; no explanation for clinical findings Please clarify and document your clinical opinion in the Progress Notes and Discharge Summary including the definitive and/or presumptive diagnosis, (suspected or probable), related to the above clinical findings. Please include clinical findings supporting your diagnosis. In responding to this query, please exercise your independent professional judgment. The purpose of this communication is to more accurately reflect the complexity of your patients condition. The fact that a question is asked does not imply that any particular answer is desired or expected. Thank you for timely response to this clarification. Eva Raza, MSN, RN Clinical [place] Inspector [phone] LENO PABON MD 07/11/23 1848: Final Diagnosis Give Final Diagnosis No, chronic heart failure with reduced ejection fraction EVA RAZA Jul 11, 2023 17:35 LENO PABON MD Jul 11, 2023 18:48
[2023-07-11] MEDS ORDERED: TROUGH ORDER-PHARMACY XX NR (19:00)
[2023-07-12] VITALS (14 sets, daily range): BP systolic 102–147; BP diastolic 54–89
[2023-07-12] MEDS: morphine EXTENDED RELEASE 15 MG TABLET PO SCH ×3 (01:55→17:08)
[2023-07-12] MEDS: LEVOTHYROXINE 150 MCG TABLET PO SCH (05:11)
[2023-07-12 05:27] LABS: BASOPHILS % (AUTO) 0 % (0-10); EOSINOPHILS # (AUTO) 0.5 10^3/uL (0.0-0.3); EOSINOPHILS % (AUTO) 8 % (0-10); HEMATOCRIT 27 % (40-54); HEMOGLOBIN 8.3 g/dL (13.3-17.7); LYMPHOCYTES # (AUTO) 1.7 10^3/uL (1.0-4.0); LYMPHOCYTES % (AUTO) 25 % (12-44); MEAN CORPUSCULAR HEMOGLOBIN 23 pg (25-34); MEAN CORPUSCULAR HGB CONC 31 g/dL (32-36); MEAN CORPUSCULAR VOLUME 76 fL (80-99); MEAN PLATELET VOLUME 8.9 fL (9.0-12.2); MONOCYTES # (AUTO) 0.6 10^3/uL (0.0-1.0); MONOCYTES % (AUTO) 8 % (0-12); NEUTROPHILS % (AUTO) 58 % (42-75); PLATELET COUNT 352 10^3/uL (130-400); WHITE BLOOD COUNT 6.8 10^3/uL (4.3-11.0)
[2023-07-12 05:45] LABS: ALBUMIN 2.5 GM/DL (3.2-4.5); BILIRUBIN,TOTAL 0.3 MG/DL (0.1-1.0); CALCIUM 8.4 MG/DL (8.5-10.1); CREATININE SERUM 1.31 MG/DL (0.60-1.30); MAGNESIUM 1.9 MG/DL (1.6-2.4); PHOSPHORUS 2.6 MG/DL (2.3-4.7); POTASSIUM 4.2 MMOL/L (3.6-5.0); TOTAL PROTEIN 5.7 GM/DL (6.4-8.2)
[2023-07-12] MEDS ORDERED: HEParin (CATH LAB) 2,000 ML IV ONE (06:57)
[2023-07-12] MEDS ORDERED: LIDOCAINE 1% INJ 20 ML VIAL ONE (06:57)
--- NOTE | 2023-07-12 07:51 | Cardiac Procedure Note-CS/ASA ---
Pre-Procedure Note Pre-Op Procedure Note Date of Available H&P: Jul 12, 2023 Date H&P Reviewed: Jul 12, 2023 Time H&P Reviewed: 07:51 History & Physical: H&P Reviewed, Patient Examed, No changes noted Pre-Operative Diagnosis: PAD Moderate Sedation PreProcedure Time 07:51 ASA Score 3 Airway Lungs Heart ASA score ASA 1: a normal healthy patient ASA 2: a patient with a mild systemic disease (mid diabetes, controlled hypertension, obesity ASA 3: a patient with a severe systemic disease that limits activity (angina, COPD, prior Myocardial infarction) ASA 4: a patient with an incapacitating disease that is a constant threat to life (CHF, renal failure) ASA 5: a moribund patient not expected to survive 24 hrs. (ruptured aneurysm) ASA 6: a declared brain- patient whose organs are being harvested. For emergent operations, add the letter E after the classification Mallampati Classification Grade 3 Sedation Plan Analgesia, Amnesia, Plan communicated to team members, Discussed options with patient/fam, Discussed risks with patient/fam The patient is an appropriate candidate to undergo the planned procedure, sedation, and anesthesia. The patient immediately re-assessed prior to indication. TORY HALL MD Jul 12, 2023 07:51
[2023-07-12] MEDS ORDERED: fentaNYL INJECTION 100 MCG/2 ML VIAL ONE (07:52)
[2023-07-12] MEDS ORDERED: MIDAZOLAM INJ 5 MG/5 ML VIAL ONE (07:52)
[2023-07-12] MEDS ORDERED: NS IV 1000 ML 1,000 ML ONE (07:53)
--- NOTE | 2023-07-12 08:36 | Cardiology Progress Note ---
Subjective Date Seen by Provider: Jul 12, 2023 Time Seen by Provider: 08:33 Subjective/Events-last exam Patient was seen at bedside, laying down comfortably. Still having generalized body ache Focused Exam Lactate Level 07/09/23 19:42: Lactic Acid Level 1.87 Objective-Cardiology Exam Last Set of Vital Signs Vital Signs 07/11/23 07/12/23 20:59 03:16 Temp 36.5 Pulse 76 Resp 18 B/P (MAP) 102/58 (73) Pulse Ox 96 O2 Delivery Nasal Cannula O2 Flow Rate 3.00 FiO2 32 I&O Intake and Output 07/12/23 00:00 Intake Total 480 ml Output Total 1400 ml Balance -920 ml Intake Oral 230 ml IV Total 250 ml Output Urine Total 1400 ml General: Alert, Oriented X3 HEENT: Atraumatic, PERRLA Lungs: Clear to Auscultation, Normal Air Movement Heart: Regular Rate, Normal S1, Normal S2 Abdomen: Normal Bowel Sounds, Soft Extremities: Other (BLE edema, wounds to anterior johnston bilat) Skin: Other (Bilateral lower extremities ulceration) Neuro: Normal Speech Psych/Mental Status: Mood NL Results Lab Laboratory Tests 07/12/23 05:16 A/P-Cardiology Admission Diagnosis Cellulitis Peripheral arterial disease Hypertension Hyperlipidemia Assessment/Plan Cellulitis of the lower extremities, nonhealing ulcer on the right lower extremity Peripheral angiogram done 12/04/16 revealed moderate atherosclerotic disease on the left lower extremity, the anterior tibial artery is severely diseased on the left lower extremity but the ulcer on the left lower extremity has healed. Moderate disease of the right lower extremity with good flow, with three-vessel flow down to the f Medical therapy was recommended. The ulcer has healed. SEAMUS in November 2017 was abnormal and it was 0.9 on the right and 0.7 on the left, TBI 0.48 on the right and 0.34 in the left. Repeat ABIs in December 2018 Repeat SEAMUS done on October 21, 2022 and it was abnormal with 0.78 and TBI 0.2, on the left is 0.42 SEAMUS and absent of waveform on the toe Underwent peripheral angiogram on November 25, 2022 showing infrarenal AAA with severe stenosis at the right common iliac artery at the origin and severe stenosis at [place] left common iliac arter at [facility] prox portion followed by aneurysm. Moderate to severe diffuse disease at [facility] left SFA with 1 area of aneurysmal dilatation. Was referred to Dr. Thomas and underwent bilat iliac stenting December 2022. Patient has worsening ulcer, cellulitis, receiving antibiotics,abnormal arterial duples Peripheral angiogram was done on July 12, 2023. Right lower extremity has moderate stenosis at the mid right SFA with good flow below the trifurcation Left lower extremity, multiple segment of severe stenosis in the left SFA. Total occlusion of the left anterior tibial artery, left peroneal artery, patent left posterior tibial artery I am planning to proceed with atherectomy and stenting to the SFA then stage the procedure for possible intervention of the peroneal artery and anterior tibial artery at a later point Trying to limit the amount of contrast exposure Congestive heart failure, nonischemic cardiomyopathy, acute on chronic left vent ricular systolic dysfunction 2D echo was done on July 10, 2023 with ejection fraction 35 to 40% with severe pulmonary hypertension. Maximize medical therapy and monitor Started on carvedilol and losartan and Jardiance and evaluate tolerance and response Mild coronary artery disease per cardiac catheterization done in October 2016. Deterioration in left ventricular function, planning to evaluate Lexiscan stress test Generalized weakness and loss of energy. Fatigue. Significant weight loss. History of anoxic encephalopathy and pneumonia and sepsis early in October 2016, improved with aggressive therapy. Back to his baseline. Continue to monitor as an outpatient History of C. difficile infection requiring partial colectomy Status post abdominal hernia repair surgery and recovered well. Mild bilateral carotid stenosis, ultrasound was done in December 2018. Continue to monitor Small infrarenal abdominal aortic aneurysm, conservative management is recommended Hypertension, Starting Coreg and losartan and evaluate tolerance and response Hyperlipidemia, no recent lipid profile, I will evaluate lipid profile and metabolic profile Hyperthyroidism, history of hypothyroidism and Levothroid, managed by primary care physician History of pulmonary hypertension, continue to monitor History of rheumatoid arthritis. COPD, managed and followed by primary care physician Tobaccoism, educated on the importance of smoking cessation TORY HALL MD Jul 12, 2023 08:36
[2023-07-12] MEDS ORDERED: PATIENT MAY USE OWN MEDS, ALL PO SCH (08:45)
--- NOTE | 2023-07-12 08:45 | Peripheral Report ---
Peripheral Report Physician (s)/[address] Vendor (s) Physician TORY HALL MD Pre-Procedure Diagnosis Pre-Procedure Diagnosis: PAD Post-Procedure Note Procedure Start Date: Jul 12, 2023 Name of Procedure: Bilateral lower extremity runoff First order Additional imaging X2 Findings/Procedure Note PROCEDURE NOTE: 78-year-old gentleman with known peripheral arterial disease, iliac stenting and infrarenal abdominal aortic aneurysm, having nonhealing wound in his lower extremity, abnormal arterial Doppler, scheduled for peripheral angiogram. After explaining the procedure to the patient, all pros and cons were explained, all questions were answered. The patient signed the consent and then he was placed on the cardiac catheterization laboratory. The patient was placed on the cardiac catheterization laboratory. Groin was prepped SL fashion local anesthesia was used. Sheath placed in the right femoral artery, runoff to the right lower extremity was done through the sheath then DSA imaging was done at the level of the trifurcation then I advanced a rim catheter to the left common iliac artery and did runoff to the left lower extremity then did DSA imaging of the left leg at the level of the trifurcation and then the catheter was removed. Sheath was removed with closure device deployed FINDINGS: Right lower extremity: Right common femoral artery and common iliac arteries are patent Right SFA has 1 area of moderate to severe stenosis at the midportion otherwise nonobstructive disease Right popliteal and tibioperoneal trunk, anterior tibial, posterior tibial and peroneal arteries are normal Left lower extremity Stent is patent in the left common iliac artery Left SFA has multiple segment of severe stenosis at the proximal mid and distal portion Left tibioperoneal trunk appeared to have severe stenosis The left posterior tibial artery is patent Left peroneal artery is totally occluded as a short segment in the proximal portion Left anterior tibial artery is totally occluded with no collaterals CONCLUSIONS: Severe peripheral arterial disease as described above with left lower extremity has multiple segment of severe stenosis in the left SFA, total occlusion of the anterior tibial artery and peroneal artery, the posterior tibial artery is patent. Moderate to severe stenosis at the mid right SFA otherwise no significant obstructive disease DISCUSSION AND RECOMMENDATIONS: I am planning to proceed with atherectomy and complex intervention of the left SFA then staged him at a later point for intervention on the anterior tibial artery and peroneal artery versus arrangement for vascular surgery Anesthesia Type: Conscious Sedation Estimated blood loss (mL): 5 ml Contrast Amount: 20 ml Total Radiation Dose: 30 mGy Post-Procedure Diagnosis Post-operative diagnosis: Nonhealing leg ulcers Peripheral arterial disease Congestive heart failure Hypertension TORY HALL MD Jul 12, 2023 08:45
[2023-07-12] MEDS: fentaNYL INJECTION 100 MCG/2 ML VIAL IV PRN ×3 (08:56→17:09)
[2023-07-12] MEDS ORDERED: CLOPIDOGREL 300 MG TABLET PO ONE (09:00)
--- NOTE | 2023-07-12 09:13 | Occ Therapy Progress Note ---
Therapy Progress Note Patient out of room for procedure, Therapy to evaluate next available opportunity CATA MALONE OT Jul 12, 2023 09:13
--- NOTE | 2023-07-12 09:14 | Physical Therapy Progress Note ---
Therapy Progress Note Pt out of room for procedure. PT to eval at next available opportunity. PRESTON CASTILLO PT Jul 12, 2023 09:14
--- NOTE | 2023-07-12 09:50 | Occ Therapy Progress Note ---
Therapy Progress Note Patient transferring to 507 w/ bed rest order. OT to evaluate when appropriate CATA MALONE OT Jul 12, 2023 09:50
[2023-07-12] MEDS ORDERED: REGADENOSON 0.4 MG/5 ML SYR IV ONE ×2 (11:50→12:00)
[2023-07-12] MEDS: RT-Ipratropium/Albuterol NEB 3 ML VIAL INH SCH ×4 (13:12→18:54)
[2023-07-12] MEDS: GABAPENTIN 100 MG CAPSULE PO SCH ×2 (13:13→20:35)
[2023-07-12] MEDS: LOSARTAN 25 MG TABLET PO SCH (13:13)
[2023-07-12] MEDS: carvediloL 3.125 MG TABLET PO SCH ×2 (13:13→20:35)
[2023-07-12] MEDS: AMOXICILLIN/Clavulanate 875 MG TABLET PO SCH ×2 (13:13→17:08)
[2023-07-12] MEDS: PANTOPRAZOLE 40 MG TABLET PO SCH (13:17)
[2023-07-12] MEDS: EMPAGLIFLOZIN 10 MG TABLET PO SCH (13:17)
[2023-07-12] MEDS: NS IV 1000 ML 1,000 ML IV SCH ×2 (13:17→17:51)
[2023-07-12] MEDS: ASPIRIN enteric coated 81MG TABLET PO SCH (13:17)
[2023-07-12] MEDS: ENOXAPARIN 80 MG/0.8 ML SYRINGE SC SCH ×2 (13:18→20:35)
--- NOTE | 2023-07-12 13:51 | Physical Therapy Evaluation ---
PT Evaluation-General Medical Diagnosis Admission Date Jul 09, 2023 at 21:15 Medical Diagnosis: Leg Pain Onset Date: Jul 11, 2023 Therapy Diagnosis Therapy Diagnosis: Gait deficit, strength deficit Height/Weight Height (Feet): 5 Height (Inches): 9.00 Weight (Pounds): 142 Weight (Ounces): 8.0 Precautions Precautions/Isolations: Fall Prevention, Standard Precautions Weight Bear Status Right Lower Extremity: Right Weight Bearing/Tolerated Left Lower Extremity: Left Weight Bearing/Tolerated Referral Physician: Dr. Chavis Reason for Referral: Evaluation/Treatment Medical History Pertinent Medical History: Arthritis, CAD, COPD, GERD, HTN, Hypothroidism, PVD, Rheumatoid Arthritis Reviewed History: Yes Social History Home: Single Level Current Living Status: Entry Into Home: Stairs With Railing PT Steps Into Home: 4 Prior Prior Level of Function SCALE: Activities may be completed with or without assistive devices. 0-Yzifdobigo-eogattl completes the activity by him/herself with no assistance from a helper. 5-Set-up or Clean-up Assistance-helper sets up or cleans up; patient completes activity. [place] assists only prior to or following the activity. 4-Supervision or Touching Assistance-helper provides verbal cues and/or touchi ng/steadying and/or contact guard assistance as patient completes activity. Assistance may be provided throughout the activity or intermittently. 3-Partial/Moderate Assistance-helper does LESS THAN HALF the effort. [place] lifts, holds or supports trunk or limbs, but provides less than half the effort. 2-Substantial/Maximal Assistance-helper does MORE THAN HALF the effort. [place] lifts or holds trunk or limbs and provides more than half the effort. 2-Vrpydpnvy-hgfinv does ALL the effort. Patient does none of the effort to complete the activity. Or, the assistance of 2 or more helpers is required for the patient to complete the activity. If activity was not attempted, code reason: 7-Patient Refused. 9-Not Applicable-not attempted and the patient did not perform the activity before the current illness, exacerbation or injury. 10-Not Attempted due to Environmental Limitations-(lack of equipment, weather restraints, etc.). 88-Not Attempted due to Medical Conditions or Safety Concerns. Bed Mobility: 6 Transfers (B,C,W/C): 6 Gait: 4 Wheelchair Mobility: 6 Indoor Mobility (Ambulation): Independent Stairs: Needed Some Help Prior Devices Use: Walker PT Evaluation-Current Subjective patient lying supine in bed upon PT arrival, agreeable to treatment. Patient rates pain at 10/10 in legs. Objective Patient Orientation: Person, Place, Time, Situation ROM/Strength ROM Lower Extremities LEs limited all planes BLEs, however unable to accurately assess due to patient being in severe pain. Strength Lower Extremities 3-/5 all planes BLEs via visual observation . Sensory Vision: Functional Hearing: Impaired Sensation Right Lower Extremit: Impaired Sensation Left Lower Extremity: Impaired Transfers Roll Left to Right (QC): 2 Sit to Lying (QC): 2 Lying to Sitting/Side of Bed(Q: 2 Sit to Stand (QC): 1 Chair/Kej-gr-Ijcjq Xfer(QC): 1 Gait Does the Patient Walk?: No and Walking Goal IS indicated Mode of Locomotion: Both Anticipated Mode of Locomotion: Both Balance Sitting Static: Fair Sitting Dynamic: Fair Standing Static: Poor Standing Dynamic: Poor Assessment/Needs Patient demonstrates fair overall potential to return to PLOF, however this may be limited by patients current report of severe pain. Patient performs all bed mobility with max and transfers with total A. Patient in chair post treatment with all needs met, nurse in the room and call light in hand. Rehab Potential: Fair PT Group Home Goals Child Care Associate Teacher Goals PT Group Home Goals Time Frame: Jul 22, 2023 Roll Left & Right (QC): 6 Sit to Lying (QC): 6 Lying-Sitting on Side/Bed(QC): 6 Sit to Stand (QC): 4 Chair/Ich-tl-Homyd Xfer(QC): 4 Toilet Transfer (QC): 4 Does the Patient Walk: No and Walking Goal IS indicated Walk 10 feet (QC): 3 Walk 50ft with 2 Turns (QC): 3 1 Step (curb) (QC): 3 4 Steps (QC): 3 PT Plan Problem List Problem List: Activity Tolerance, Functional Strength, Safety, Balance, Gait, Transfer, Bed Mobility, ROM Treatment/Plan Treatment Plan: Continue Plan of Care Treatment Plan: Bed Mobility, Education, Functional Activity Juli, Functional Strength, Group Therapy, Gait, Safety, Therapeutic Exercise, Transfers Treatment Duration: Aug 12, 2023 Frequency: 6 times per week Estimated Hrs Per Day: .25 hour per day Patient and/or Family Agrees t: Yes Safety Risks/Education Patient Education: Transfer Techniques Teaching Recipient: Patient Teaching Methods: Demonstration, Discussion Response to Teaching: Verbalize Understanding, Return Demonstration Time Time In: 1320 Time Out: 1345 DATE: Jul 12, 2023 Total Billed Treatment Time: 25 Total Billed Treatment Visit, ESSENCE ALMANZA JOHN A PT Jul 12, 2023 13:51
--- NOTE | 2023-07-12 13:55 | Occupational Therapy Eval ---
OT Evaluation-General/PLF Medical Diagnosis Admission Date Jul 09, 2023 at 21:15 Medical Diagnosis: leg pain Onset Date: Jul 09, 2023 Therapy Diagnosis Therapy Diagnosis: weakness Height/Weight Height (Feet): 5 Height (Inches): 9.00 Weight (Pounds): 142 Weight (Ounces): 8.0 Precautions Precautions/Isolations: Fall Prevention, Standard Precautions Weight Bear Status Weight Bearing Restriction: Weight Bearing/Tolerated Location Restriction: LE Bilateral Referral Referral Reason: Activity Tolerance, Self Care, Evaluation/Treatment, Strengthening/ROM Medical History Pertinent Medical History: Arthritis, CAD, COPD, GERD, HTN, Hypothroidism, PVD, Rheumatoid Arthritis Additional Medical History 78-year-old gentleman with known peripheral arterial disease, iliac stenting and infrarenal abdominal aortic aneurysm, having nonhealing wound in his lower extremity, abnormal arterial Doppler, scheduled for peripheral angiogram. Current History Off bedrest, c/o pain BLEs Social History Home: Single Level Current Living Status: Friend Entry Into Home: Stairs With Railing Steps Into Home: 4 Steps Inside Home: 0 ADL-Prior Level of Function SCALE: Activities may be completed with or without assistive devices. 8-Ddrxwhzuqc-wycdhgz completes the activity by him/herself with no assistance from a helper. 5-Set-up or Clean-up Assistance-helper sets up or cleans up; patient completes activity. [place] assists only prior to or following the activity. 4-Supervision or Touching Assistance-helper provides verbal cues and/or touching/steadying and/or contact guard assistance as patient completes activity. Assistance may be provided throughout the activity or intermittently. 3-Partial/Moderate Assistance-helper does LESS THAN HALF the effort. [place] lifts, holds or supports trunk or limbs, but provides less than half the effort. 2-Substantial/Maximal Assistance-helper does MORE THAN HALF the effort. [place] lifts or holds trunk or limbs and provides more than half the effort. 9-Krvauxtmp-cnhvus does ALL the effort. Patient does none of the effort to complete the activity. Or, the assistance of 2 or more helpers is required for the patient to complete the activity. If activity was not attempted, code reason: 7-Patient Refused. 9-Not Applicable-not attempted and the patient did not perform the activity before the current illness, exacerbation or injury. 10-Not Attempted due to Environmental Limitations-(lack of equipment, weather restraints, etc.). 88-Not Attempted due to Medical Conditions or Safety Concerns. ADL PLOF Comments Room mate does cooking, both do simple cleaning and tidy up, Patient sponge bathes periodically, uses SPC of ledges in bathroom for bathroom mobility, WC primarily in home, uses cane to manage stairs Self Care: Needed Some Help DME/Equipment: Bath Chair, Grab Bars Drive Self: No OT Current Status Subjective Agreeable to participate Pain Numeric Pain Scale: 8 Comment: morphine administered by RN Mental Status/Objective Patient Orientation: Person, Place, Time, Situation Attachments: IV, Oxygen Current Upper Extremity ROM B hand deformity, wrist limited ROM and tightness. Upper Extremity Coordination fair- Upper Extremity Strength +2/5 hands, 3/5 elbows and -3/5 shoulder ADL-Treatment Eating (QC): 4 Oral Hygiene (QC): 4 Shower/Bathe Self (QC): 7 Upper Body Dressing (QC): 1 Lower Body Dressing (QC): 1 On/Off Footwear (QC): 1 Toileting Hygiene (QC): 1 Education OT Patient Education: Correct positioning, Modified ADL techniques, Progress toward Goal/Update tx plan, Purpose of tx/functional activities, Reviewed precautions, Rehab process, Safety issues, Transfer techniques, Use of adapted equipment Teaching Recipient: Patient Teaching Methods: Discussion Response to Teaching: Reinforcement Needed OT Intermediate Goals Farm Equipment Engineer Goals Eating (QC): 5 Oral Hygiene (QC): 5 Toileting Hygiene (QC): 4 Shower/Bathe Self (QC): 4 Upper Body Dressing (QC): 4 Lower Body Dressing (QC): 4 On/Off Footwear (QC): 4 1=Demonstrate adherence to instructed precautions during ADL tasks. 2=Patient will verbalize/demonstrate understanding of assistive devices/modifications for ADL. 3=Patient will improve strength/tolerance for activity to enable patient to perform ADL's. OT Education/Plan Problem List/Assessment Assessment: Decreased Activ Tolerance, Decreased UE Strength, Dependent Transfers, Impaired Bed Mobility, Impaired Coordination, Impaired Funct Balance, Impaired Self-Care Skills, Restricted Funct UE ROM Discharge Recommendations Plan/Recommendations: Continue POC Therapy Discharge Recommendati: Post Acute OT Treatment Plan/Plan of Care Treatment,Training & Education: Yes Patient would benefit from OT for education, treatment and training to promote independence in ADL's, mobility, safety and/or upper extremity function for ADL's. Plan of Care: ADL Retraining, Cognitive Retraining, Concurrent Therapy, Functio nal Mobility, Group Exercise/Act as Ind, UE Funct Exercise/Act, UE Neuromus Re- Ed/Coord Treatment Duration: Jul 18, 2023 Frequency: 3 times per week (3-5 times per week) Estimated Hrs Per Day: .25 hour per day Agreement: Yes Rehab Potential: Guarded Time Start Time: 13:30 Stop Time: 13:50 DATE: Jul 12, 2023 Total Time Billed (hr/min): 20 Billed Treatment Time EV 20 min CATA MALONE OT Jul 12, 2023 13:55
--- NOTE | 2023-07-12 14:47 | Cardiology Stress Test Report ---
Stress Test Report Date of Procedure/Referring: Date of Procedure: Jul 12, 2023 PCP Ramy Ely MD Admitting Physician Admitting Physician: Teri Parsons MD Attending Physician: Nancie Chavis MD Baseline Heart Rate: 88 Baseline Blood Pressure: Blood Pressure Systolic: 145 Blood Pressure Diastolic: 86 Baseline Vitals Vital Signs Date Time Temp Pulse Resp B/P (MAP) Pulse Ox O2 Delivery O2 Flow Rate FiO2 07/09/23 19:40 37.4 133 16 105/79 (88) 93 Room Air 07/09/23 20:05 2.00 07/11/23 20:59 32 Baseline EKG: Baseline EKG: NSR Summary After explaining the procedure to the patient, he signed a consent and then brought to the stress nuclear laboratory. Patient received 0.4 mg Lexiscan for stress test, ECG, heart rate and blood pressure were monitored continuously. Resting and stress dose of radio tracer were injected, imaging was acquired and reviewed in short axis, horizontal long axis and vertical long axis views. TID: 0.88 SSS: 4 SDS: 1 EF: 30 Patient tolerated Lexiscan well No significant ischemia or infarction noted on SPECT images Diffuse left ventricular hypokinesia with ejection fraction 30% CC TORY Delgado MD Jul 12, 2023 14:47
--- NOTE | 2023-07-12 18:32 | Progress Note ---
Progress Note Attempted to see patient today unsuccessfully. Unable due to multiple procedures. Case discussed with Dr. Davis, planning for intervention for peripheral arterial disease. LENO PABON MD Jul 12, 2023 18:32
[2023-07-13] VITALS: BP 119/63
[2023-07-13] MEDS: morphine EXTENDED RELEASE 15 MG TABLET PO SCH ×3 (02:02→17:57)
[2023-07-13 03:19] VITALS: BP 138/62
[2023-07-13] MEDS: NS IV 1000 ML 1,000 ML IV SCH ×2 (03:29→15:09)
[2023-07-13 05:56] LABS: ALBUMIN 2.4 GM/DL (3.2-4.5); POTASSIUM 4.1 MMOL/L (3.6-5.0)
[2023-07-13 05:57] LABS: CALCIUM 8.1 MG/DL (8.5-10.1)
[2023-07-13 05:59] LABS: TOTAL PROTEIN 5.7 GM/DL (6.4-8.2)
[2023-07-13 06:00] LABS: BILIRUBIN,TOTAL 0.3 MG/DL (0.1-1.0)
[2023-07-13 06:01] LABS: BASOPHILS % (AUTO) 0 % (0-10); EOSINOPHILS # (AUTO) 0.5 10^3/uL (0.0-0.3); EOSINOPHILS % (AUTO) 7 % (0-10); HEMATOCRIT 30 % (40-54); HEMOGLOBIN 8.9 g/dL (13.3-17.7); LYMPHOCYTES # (AUTO) 2.3 10^3/uL (1.0-4.0); LYMPHOCYTES % (AUTO) 34 % (12-44); MEAN CORPUSCULAR HEMOGLOBIN 23 pg (25-34); MEAN CORPUSCULAR HGB CONC 30 g/dL (32-36); MEAN CORPUSCULAR VOLUME 76 fL (80-99); MEAN PLATELET VOLUME 8.8 fL (9.0-12.2); MONOCYTES # (AUTO) 0.5 10^3/uL (0.0-1.0); MONOCYTES % (AUTO) 7 % (0-12); NEUTROPHILS # (AUTO) 3.6 10^3/uL (1.8-7.8); NEUTROPHILS % (AUTO) 52 % (42-75); PLATELET COUNT 364 10^3/uL (130-400); WHITE BLOOD COUNT 6.9 10^3/uL (4.3-11.0)
[2023-07-13 06:02] LABS: CREATININE SERUM 1.19 MG/DL (0.60-1.30); PHOSPHORUS 2.4 MG/DL (2.3-4.7)
[2023-07-13 06:06] LABS: MAGNESIUM 1.8 MG/DL (1.6-2.4)
[2023-07-13] MEDS: LEVOTHYROXINE 150 MCG TABLET PO SCH (06:14)
[2023-07-13] MEDS: RT-Ipratropium/Albuterol NEB 3 ML VIAL INH SCH ×4 (07:39→19:04)
[2023-07-13 08:29] VITALS: BP 135/62
--- NOTE | 2023-07-13 08:37 | Cardiology Progress Note ---
Subjective Date Seen by Provider: Jul 13, 2023 Time Seen by Provider: 08:36 Subjective/Events-last exam Patient was seen at bedside, laying down comfortably, no new complain Objective-Cardiology Exam Last Set of Vital Signs Vital Signs 07/11/23 07/13/23 20:59 08:29 Temp 36.4 Pulse 77 Resp 17 B/P (MAP) 135/62 (86) Pulse Ox 97 O2 Delivery Nasal Cannula O2 Flow Rate 2.50 FiO2 32 I&O Intake and Output 07/13/23 00:00 Intake Total 370 ml Output Total 600 ml Balance -230 ml Intake Oral 370 ml Output Urine Total 600 ml # Voids 1 # Bowel Movements 3 General: Alert, Oriented X3 HEENT: Atraumatic, PERRLA Neck: Supple, No JVD Lungs: Clear to Auscultation, Normal Air Movement Heart: Regular Rate, Normal S1, Normal S2 Abdomen: Normal Bowel Sounds, Soft Extremities: No Cyanosis, Other (BLE edema, wounds to anterior [place] bilat) Skin: Other (Bilateral lower extremities ulceration) Neuro: Normal Speech Psych/Mental Status: Mental Status NL, Mood NL Results Lab Laboratory Tests 07/13/23 05:30 A/P-Cardiology Admission Diagnosis Cellulitis Peripheral arterial disease Hypertension Hyperlipidemia Assessment/Plan Cellulitis of the lower extremities, nonhealing ulcer on the right lower extremity Peripheral angiogram done 12/04/16 revealed moderate atherosclerotic disease on the left lower extremity, the anterior tibial artery is severely diseased on the left lower extremity but the ulcer on the left lower extremity has healed. Moderate disease of the right lower extremity with good flow, with three-vessel flow down to the f Medical therapy was recommended. The ulcer has healed. SEAMUS in November 2017 was abnormal and it was 0.9 on the right and 0.7 on the left, TBI 0.48 on the right and 0.34 in the left. Repeat ABIs in December 2018 Repeat SEAMUS done on October 21, 2022 and it was abnormal with 0.78 and TBI 0.2, on the left is 0.42 SEAMUS and absent of waveform on the toe Underwent peripheral angiogram on November 25, 2022 showing infrarenal AAA with severe stenosis at the right common iliac artery at the origin and severe stenosis at amirah left common iliac arter at amirah prox portion followed by aneurysm. Moderate to severe diffuse disease at t left SFA with 1 area of aneurysmal dilatation. Was referred to Dr. Thomas and underwent bilat iliac stenting December 2022. Patient has worsening ulcer, cellulitis, receiving antibiotics,abnormal arterial duples Peripheral angiogram was done on July 12, 2023. Right lower extremity has moderate stenosis at the mid right SFA with good flow below the trifurcation Left lower extremity, multiple segment of severe stenosis in the left SFA. Total occlusion of the left anterior tibial artery, left peroneal artery, patent left posterior tibial artery I am planning to proceed with atherectomy and stenting to the SFA then stage the procedure for possible intervention of the peroneal artery and anterior tibial artery at a later point Trying to limit the amount of contrast exposure Congestive heart failure, nonischemic cardiomyopathy, acute on chronic left ventricular systolic dysfunction 2D echo was done on July 10, 2023 with ejection fraction 35 to 40% with severe pulmonary hypertension. Maximize medical therapy and monitor Started on carvedilol and losartan and Jardiance and evaluate tolerance and response Mild coronary artery disease per cardiac catheterization done in October 2016. Deterioration in left ventricular function. Lexiscan Myoview stress test done on July 12, 2023 with no significant ischemia or infarction Generalized weakness and loss of energy. Fatigue. Significant weight loss. History of anoxic encephalopathy and pneumonia and sepsis early in November 07, improved with aggressive therapy. Back to his baseline. Continue to monitor as an outpatient History of C. difficile infection requiring partial colectomy Status post abdominal hernia repair surgery and recovered well. Mild bilateral carotid stenosis, ultrasound was done in December 2018. Continue to monitor Small infrarenal abdominal aortic aneurysm, conservative management is recommended Hypertension, Starting Coreg and losartan and evaluate tolerance and response Hyperlipidemia, no recent lipid profile, I will evaluate lipid profile and metabolic profile Hyperthyroidism, history of hypothyroidism and Levothroid, managed by primary care physician History of pulmonary hypertension, continue to monitor History of rheumatoid arthritis. COPD, managed and followed by primary care physician Tobaccoism, educated on the importance of smoking cessation TORY HALL MD Jul 13, 2023 08:37
[2023-07-13] MEDS: CLOPIDOGREL 75 MG TABLET PO SCH (09:12)
[2023-07-13] MEDS: EMPAGLIFLOZIN 10 MG TABLET PO SCH (09:12)
[2023-07-13] MEDS: LOSARTAN 25 MG TABLET PO SCH (09:12)
[2023-07-13] MEDS: GABAPENTIN 100 MG CAPSULE PO SCH ×2 (09:12→20:46)
[2023-07-13] MEDS: PANTOPRAZOLE 40 MG TABLET PO SCH (09:12)
[2023-07-13] MEDS: ASPIRIN enteric coated 81MG TABLET PO SCH (09:12)
[2023-07-13] MEDS: carvediloL 3.125 MG TABLET PO SCH ×2 (09:12→20:46)
[2023-07-13] MEDS: ENOXAPARIN 80 MG/0.8 ML SYRINGE SC SCH ×2 (09:13→20:46)
[2023-07-13] MEDS: AMOXICILLIN/Clavulanate 875 MG TABLET PO SCH ×2 (09:16→17:57)
--- NOTE | 2023-07-13 10:40 | Physical Therapy Progress Note ---
Therapy Progress Note Patient declined therapy due to bilateral LE pain. Attempted to educate patient on importance of OOB activity to improve strength and mobility, however, patient continued to refuse. LIZET SARMIENTO PT Jul 13, 2023 10:40
--- NOTE | 2023-07-13 11:15 | Occ Therapy Progress Note ---
Therapy Progress Note Patient declined therapy due to bilateral LE pain. Attempted to educate patient on importance of OOB activity to improve strength and mobility, however, patient continued to refuse. OT to attempt again in afternoon CATA MALONE OT Jul 13, 2023 11:15
[2023-07-13] MEDS: fentaNYL INJECTION 100 MCG/2 ML VIAL IV PRN (11:43)
[2023-07-13 11:46] VITALS: BP 118/59
[2023-07-13] MEDS ORDERED: fentaNYL INJECTION 100 MCG/2 ML VIAL IVP ONE (12:15)
[2023-07-13 16:53] VITALS: BP 123/60
--- NOTE | 2023-07-13 17:40 | Progress Note - Hospitalist ---
Subjective HPI/CC On Admission Date Seen by Provider: Jul 13, 2023 Time Seen by Provider: 12:05 Benjamin is a 78yo male who came to the ED with leg pain. He was agitated when we spoke and was a poor historian. He described associated leg cramps. Benjamin endorsed some shortness of breath and sternal chest pain. He also reported some dysuria. He has a history of chronic wounds to his legs, opioid dependency, hypertension, COPD, RA, PAD, anemia, and renal failure. Mr. Shaffer has had joint replacement surgery,bowel resection due to Cdiff and cardiac stents. He is alergic to sulfa. He was placed on Zosyn and Vancomyacin in the ED for empiric treatment of infection. He is a smoker and denies alcohol and drug use.When Benjamin arrived to the ED he was tachycardic and hypotensive with concerns for septic shock, but this seems to have resolved. Benjamin described an inability to walk and has been unable to keep up with his wound care with Home Health. Erythema and ulcerations in various stages of healing were observed on both legs, mostly on the anterior surfaces. Sensation is intact BL but LE pulses are severely diminished. Dr. Pabon asked about his code status and he confirmed he would like to become DNR. When asked about follow up with vascular surgery and have treatment for chronic CAD and leg wounds, he denied wanting to pursue this further and endorsed interest in comfort care. He agreed to going on hospice. Per previous notes, peripheral angiogram showed: -MODERATE SIZED INFRA-RENAL ABDOMINAL AORTIC ANEURYSM -SEVERE STENOSIS AT RIGHT COMMON ILIAC ARTERY AT ORIGIN -SEVERE STENOSIS OF LEFT COMMON ILIAC ARTERY AT PROXIMAL PORTION FOLLOWED BY ANEURYSM. -MODERATE TO SEVERE STENOSIS DIFFUSE DISEASE OF LEFT S.F.A. WITH ONE AREA OF ANEURYSMAL DILATION -MODERATE DIFFUSE DISEASED OF RIGHT S.F.A. Labs showed an elevated BNP at 822.5. He also had elevated BUN and CRP, likely due to renal failure and renal stenosis. UA was non-contributory. Tox screen positive for opiates. Microbiology of leg ucler cultures came back positive for gram negative rods. Will continue vancomyacin and zosyn. CXR:Unchanged cardiomegaly with central vascular congestion and interstitial edema versus infiltrate. No pneumothorax or pleural fluid. EKG: Ventricular pacemaker abnormal EKG - cardiology consulted Echo: showed left ventricular hypertrophy with preserved EF (45-50%) see report for details LE US report pending Subjective/Events-last exam He just had his dressings changed and his legs hurt. He has no other complaints. He wants to proceed with the procedure with Dr. Davis tomorrow. Objective Exam Vital Signs Vital Signs Date Time Temp Pulse Resp B/P (MAP) Pulse Ox O2 Delivery O2 Flow Rate FiO2 07/13/23 16:53 36.6 63 18 123/60 (81) 96 Nasal Cannula 2.00 07/11/23 20:59 32 Capillary Refill : Less Than 3 Seconds General Appearance: No Apparent Distress, Chronically ill Respiratory: Lungs Clear, No Respiratory Distress Cardiovascular: Regular Rate, Rhythm, No Murmur Gastrointestinal: Normal Bowel Sounds, Soft Extremity: Other (dressings in place) Neurologic/Psychiatric: Alert Results/Procedures Lab Laboratory Tests 07/13/23 05:30 Patient resulted labs reviewed. Imaging: Reviewed Imaging Films, Reviewed Imaging Report Assessment/Plan Assessment and Plan Assess & Plan/Chief Complaint Septic shock, resolved PAD Wound infection Chronic lower extremity wounds Chronic opiate use Debility Cardiology planning for atherectomy and stenting of SFA tomorrow Continue pain regimen PT/OT COPD RA HTN HLD CAD Chronic HFrEF Tobacco abuse Diagnosis/Problems Diagnosis/Problems (1) Severe peripheral arterial disease Status: Acute (2) Chronic narcotic use Status: Acute (3) Chronic wound of extremity Status: Acute (4) Rheumatoid arthritis Status: Chronic (5) CAD (coronary artery disease) Status: Chronic (6) Wound infection Status: Acute LENO PABON MD Jul 13, 2023 17:40
[2023-07-13 20:31] VITALS: BP 114/53
[2023-07-14] VITALS (8 sets, daily range): BP systolic 102–122; BP diastolic 54–71
[2023-07-14] MEDS: morphine EXTENDED RELEASE 15 MG TABLET PO SCH ×3 (02:11→17:23)
[2023-07-14] MEDS: LEVOTHYROXINE 150 MCG TABLET PO SCH (05:31)
[2023-07-14 06:13] LABS: BASOPHILS % (AUTO) 1 % (0-10); EOSINOPHILS # (AUTO) 0.5 10^3/uL (0.0-0.3); EOSINOPHILS % (AUTO) 6 % (0-10); HEMATOCRIT 28 % (40-54); HEMOGLOBIN 8.4 g/dL (13.3-17.7); LYMPHOCYTES # (AUTO) 2.9 10^3/uL (1.0-4.0); LYMPHOCYTES % (AUTO) 37 % (12-44); MEAN CORPUSCULAR HEMOGLOBIN 23 pg (25-34); MEAN CORPUSCULAR HGB CONC 30 g/dL (32-36); MEAN CORPUSCULAR VOLUME 75 fL (80-99); MEAN PLATELET VOLUME 8.9 fL (9.0-12.2); MONOCYTES # (AUTO) 0.6 10^3/uL (0.0-1.0); MONOCYTES % (AUTO) 8 % (0-12); NEUTROPHILS # (AUTO) 3.9 10^3/uL (1.8-7.8); NEUTROPHILS % (AUTO) 49 % (42-75); PLATELET COUNT 356 10^3/uL (130-400); WHITE BLOOD COUNT 7.9 10^3/uL (4.3-11.0)
[2023-07-14 06:26] LABS: ALBUMIN 2.5 GM/DL (3.2-4.5); BILIRUBIN,TOTAL 0.2 MG/DL (0.1-1.0); CALCIUM 8.4 MG/DL (8.5-10.1); CREATININE SERUM 1.28 MG/DL (0.60-1.30); MAGNESIUM 1.8 MG/DL (1.6-2.4); PHOSPHORUS 2.6 MG/DL (2.3-4.7); POTASSIUM 4.2 MMOL/L (3.6-5.0); TOTAL PROTEIN 5.7 GM/DL (6.4-8.2)
[2023-07-14] MEDS: RT-Ipratropium/Albuterol NEB 3 ML VIAL INH SCH ×4 (07:48→18:51)
[2023-07-14] MEDS ORDERED: HEParin (CATH LAB) 2,000 ML IV ONE (07:49)
[2023-07-14] MEDS ORDERED: NS IV 1000 ML 0 ML ONE (07:49)
[2023-07-14] MEDS ORDERED: LIDOCAINE 1% INJ 20 ML VIAL ONE (07:49)
[2023-07-14] MEDS: NS IV 1000 ML 1,000 ML IV SCH ×4 (09:52→21:15)
[2023-07-14] MEDS ORDERED: fentaNYL INJECTION 100 MCG/2 ML VIAL ONE (10:28)
[2023-07-14] MEDS ORDERED: MIDAZOLAM INJ 5 MG/5 ML VIAL ONE (10:28)
[2023-07-14] MEDS: AMOXICILLIN/Clavulanate 875 MG TABLET PO SCH ×2 (10:34→17:20)
[2023-07-14] MEDS: carvediloL 3.125 MG TABLET PO SCH ×2 (10:34→20:11)
[2023-07-14] MEDS: ASPIRIN enteric coated 81MG TABLET PO SCH (10:35)
[2023-07-14] MEDS: EMPAGLIFLOZIN 10 MG TABLET PO SCH (10:35)
[2023-07-14] MEDS: CLOPIDOGREL 75 MG TABLET PO SCH (10:35)
--- NOTE | 2023-07-14 10:37 | Cardiac Procedure Note-CS/ASA ---
Pre-Procedure Note Pre-Op Procedure Note Date of Available H&P: Jul 14, 2023 Date H&P Reviewed: Jul 14, 2023 Time H&P Reviewed: 10:36 History & Physical: H&P Reviewed, Patient Examed, No changes noted Pre-Operative Diagnosis: PAD Moderate Sedation PreProcedure Time 10:36 ASA Score 3 Airway Lungs Heart ASA score ASA 1: a normal healthy patient ASA 2: a patient with a mild systemic disease (mid diabetes, controlled hypertension, obesity ASA 3: a patient with a severe systemic disease that limits activity (angina, COPD, prior Myocardial infarction) ASA 4: a patient with an incapacitating disease that is a constant threat to life (CHF, renal failure) ASA 5: a moribund patient not expected to survive 24 hrs. (ruptured aneurysm) ASA 6: a declared brain- patient whose organs are being harvested. For emergent operations, add the letter E after the classification Mallampati Classification Grade 3 Sedation Plan Analgesia, Amnesia, Plan communicated to team members, Discussed options with patient/fam, Discussed risks with patient/fam The patient is an appropriate candidate to undergo the planned procedure, sedation, and anesthesia. The patient immediately re-assessed prior to indication. TORY HALL MD Jul 14, 2023 10:37
[2023-07-14] MEDS: GABAPENTIN 100 MG CAPSULE PO SCH ×2 (10:40→20:11)
[2023-07-14] MEDS: LOSARTAN 25 MG TABLET PO SCH (10:40)
[2023-07-14] MEDS: PANTOPRAZOLE 40 MG TABLET PO SCH (10:40)
[2023-07-14] MEDS: ENOXAPARIN 80 MG/0.8 ML SYRINGE SC SCH (10:40)
--- NOTE | 2023-07-14 10:44 | Occ Therapy Progress Note ---
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 OT to resume next available opportunity CATA MALONE OT Jul 14, 2023 10:44
--- NOTE | 2023-07-14 10:47 | Physical Therapy Progress Note ---
Therapy Progress Note Patient unavailable for therapy on this date due to procedure. LIZET SARMIENTO PT Jul 14, 2023 10:46
[2023-07-14] MEDS ORDERED: NITRO DRIP 25000 MCG/D5W 0 ML IV ONE (10:56)
[2023-07-14] MEDS ORDERED: VERAPAMIL 5 MG/2 ML (CALAN) VIAL IV ONE (10:56)
--- NOTE | 2023-07-14 10:57 | Cardiology Progress Note ---
Subjective Date Seen by Provider: Jul 14, 2023 Time Seen by Provider: 10:55 Subjective/Events-last exam Patient was seen at bedside, laying down comfortably, no new complaint. Objective-Cardiology Exam Last Set of Vital Signs Vital Signs 07/14/23 07/14/23 07/14/23 07:23 07:48 08:34 Temp 36.2 Pulse 79 Resp 16 B/P (MAP) 122/71 (88) Pulse Ox 93 O2 Delivery Nasal Cannula O2 Flow Rate 2.00 FiO2 28 I&O Intake and Output 07/14/23 00:00 Intake Total 860 ml Balance 860 ml Intake Oral 860 ml # Voids 8 # Bowel Movements 1 General: Alert, Oriented X3 HEENT: Atraumatic, PERRLA Neck: Supple, No JVD Lungs: Clear to Auscultation, Normal Air Movement Heart: Regular Rate, Normal S1, Normal S2 Abdomen: Normal Bowel Sounds, Soft Extremities: No Cyanosis, No Edema, Other (BLE edema, wounds to anterior johnston bilat) Skin: Other (Bilateral lower extremities ulceration) Neuro: Normal Speech Psych/Mental Status: Mental Status NL, Mood NL Results Lab Laboratory Tests 07/14/23 05:55 A/P-Cardiology Admission Diagnosis Cellulitis Peripheral arterial disease Hypertension Hyperlipidemia Assessment/Plan Cellulitis of the lower extremities, nonhealing ulcer on the right lower extremity Peripheral angiogram done 12/04/16 revealed moderate atherosclerotic disease on the left lower extremity, the anterior tibial artery is severely diseased on the left lower extremity but the ulcer on the left lower extremity has healed. Moderate disease of the right lower extremity with good flow, with three-vessel flow down to the f Medical therapy was recommended. The ulcer has healed. SEAMUS in November 2017 was abnormal and it was 0.9 on the right and 0.7 on the left, TBI 0.48 on the right and 0.34 in the left. Repeat ABIs in December 2018 Repeat SEAMUS done on October 21, 2022 and it was abnormal with 0.78 and TBI 0.2, on the left is 0.42 SEAMUS and absent of waveform on the toe Underwent peripheral angiogram on November 25, 2022 showing infrarenal AAA with severe stenosis at the right common iliac artery at the origin and severe stenosis at [facility] left common iliac arter at [facility] prox portion followed by aneurysm. Moderate to severe diffuse disease at [facility] left SFA with 1 area of aneurysmal dilatation. Was referred to Dr. Thomas and underwent bilat iliac stenting December 2022. Patient has worsening ulcer, cellulitis, receiving antibiotics,abnormal arterial duples Peripheral angiogram was done on July 12, 2023. Right lower extremity has moderate stenosis at the mid right SFA with good flow below the trifurcation Left lower extremity, multiple segment of severe stenosis in the left SFA. Total occlusion of the left posterior tibial artery, subtotal occlusion of the left peroneal artery, severe stenosis at the ostial anterior tibial artery I am planning to proceed with atherectomy and stenting to the SFA and possible intervention on the anterior tibial artery and peroneal artery Congestive heart failure, nonischemic cardiomyopathy, acute on chronic left ventricular systolic dysfunction 2D echo was done on July 10, 2023 with ejection fraction 35 to 40% with severe pulmonary hypertension. Maximize medical therapy and monitor Started on carvedilol and losartan and Jardiance and evaluate tolerance and response Mild coronary artery disease per cardiac catheterization done in October 2016. Deterioration in left ventricular function. Lexiscan Myoview stress test done on July 12, 2023 with no significant ischemia or infarction Generalized weakness and loss of energy. Fatigue. Significant weight loss. History of anoxic encephalopathy and pneumonia and sepsis early in October 2016, improved with aggressive therapy. Back to his baseline. Continue to monitor as an outpatient History of C. difficile infection requiring partial colectomy Status post abdominal hernia repair surgery and recovered well. Mild bilateral carotid stenosis, ultrasound was done in December 2018. Continue to monitor Small infrarenal abdominal aortic aneurysm, conservative management is recommended Hypertension, Starting Coreg and losartan and evaluate tolerance and response Hyperlipidemia, no recent lipid profile, I will evaluate lipid profile and metabolic profile Hyperthyroidism, history of hypothyroidism and Levothroid, managed by primary care physician History of pulmonary hypertension, continue to monitor History of rheumatoid arthritis. COPD, managed and followed by primary care physician Tobaccoism, educated on the importance of smoking cessation TORY HALL MD Jul 14, 2023 10:57
[2023-07-14] MEDS ORDERED: HEParin 1000 UNIT/ML (10ML VIAL) FOR BOLUS ONE (11:06)
[2023-07-14] MEDS ORDERED: PATIENT MAY USE OWN MEDS, ALL PO SCH (12:00)
--- NOTE | 2023-07-14 12:26 | Peripheral Report ---
Peripheral Report Physician (s)/Health Counselor (s) Physician TORY HALL MD Pre-Procedure Diagnosis Pre-Procedure Diagnosis: PAD Post-Procedure Note Procedure Start Date: Jul 14, 2023 Name of Procedure: Unilateral lower extremity runoff Third order Additional imaging Findings/Procedure Note PROCEDURE NOTE: Patient has nonhealing wound on his lower extremities, had peripheral angiogram and I was planning to do intervention on the left leg. After explaining the procedure to the patient, all pros and cons were explained, all questions were answered. The patient signed the consent and then he was placed on the cardiac catheterization laboratory. The patient was placed on the cardiac catheterization laboratory. Groin was prepped SL fashion local anesthesia was used. Sheath placed in the right femoral artery, patient received 5000 units of heparin Using a rim catheter I crossed over then I advanced a straight catheter and placed 7 Welsh sheath that it crossed over to the common femoral artery on the left. I advanced a command 18 wire to the popliteal artery and advanced straight ca theter to the popliteal artery. Did angiogram in multiple views to the popliteal and tibioperoneal trunk. I attempted to cross with command 18 with multiple different angles. Without success. Did DSA imaging at the level of trifurcation then DSA imaging at the level of the foot then pulled the catheter back and did DSA imaging to the SFA Sheath was removed and exchanged to a short 7 Welsh sheath After removal of old sheath, Mynx was used FINDINGS: Left lower extremity Left SFA has severe diffuse disease at multiple segment. Left popliteal artery is occluded Left tibioperoneal trunk is occluded There is a reconstruction with the anterior tibial artery, posterior tibial artery and peroneal artery by collaterals down to the foot CONCLUSIONS: Severe peripheral arterial disease with occlusion of the distal SFA/popliteal a nd tibioperoneal trunk with reconstruction of three-vessel down to the foot by collaterals DISCUSSION AND RECOMMENDATIONS: Patient will need pedal access with retrograde attempt versus femoropopliteal bypass surgery I will arrange for evaluation at a tertiary care center Anesthesia Type: Conscious Sedation Estimated blood loss (mL): 25 ml Contrast Amount: 26 ml Total Radiation Dose: 153 mGy Post-Procedure Diagnosis Post-operative diagnosis: Nonhealing ulcer Peripheral arterial disease Hypertension Hyperlipidemia TORY HALL MD Jul 14, 2023 12:26
[2023-07-15] MEDS: morphine EXTENDED RELEASE 15 MG TABLET PO SCH ×2 (01:25→08:57)
[2023-07-15 03:35] VITALS: BP 119/60
[2023-07-15 06:04] LABS: BASOPHILS % (AUTO) 0 % (0-10); EOSINOPHILS # (AUTO) 0.4 10^3/uL (0.0-0.3); EOSINOPHILS % (AUTO) 4 % (0-10); HEMATOCRIT 30 % (40-54); LYMPHOCYTES % (AUTO) 34 % (12-44); MEAN CORPUSCULAR HEMOGLOBIN 23 pg (25-34); MEAN CORPUSCULAR HGB CONC 31 g/dL (32-36); MEAN CORPUSCULAR VOLUME 75 fL (80-99); MEAN PLATELET VOLUME 9.2 fL (9.0-12.2); MONOCYTES # (AUTO) 0.7 10^3/uL (0.0-1.0); MONOCYTES % (AUTO) 7 % (0-12); NEUTROPHILS # (AUTO) 4.9 10^3/uL (1.8-7.8); NEUTROPHILS % (AUTO) 55 % (42-75); PLATELET COUNT 379 10^3/uL (130-400)
[2023-07-15] MEDS: LEVOTHYROXINE 150 MCG TABLET PO SCH (06:14)
[2023-07-15 06:15] LABS: ALBUMIN 2.6 GM/DL (3.2-4.5); BILIRUBIN,TOTAL 0.2 MG/DL (0.1-1.0); CALCIUM 8.5 MG/DL (8.5-10.1); CREATININE SERUM 1.11 MG/DL (0.60-1.30); MAGNESIUM 1.8 MG/DL (1.6-2.4); PHOSPHORUS 2.7 MG/DL (2.3-4.7); POTASSIUM 4.1 MMOL/L (3.6-5.0); TOTAL PROTEIN 5.9 GM/DL (6.4-8.2)
[2023-07-15] MEDS: RT-Ipratropium/Albuterol NEB 3 ML VIAL INH SCH ×2 (06:16→10:40)
[2023-07-15 07:06] VITALS: BP 122/70
--- NOTE | 2023-07-15 08:32 | Physical Therapy Progress Note ---
Therapy Progress Note Pt reclined in bed upon arrival to room, denies any OOB activities, reporting he just ate breakfast and is not feeling well. Pt educated on importance of OOB activities to restore PLOF, pt continues to decline PT treatments. Will follow up Monday to continue POC 1 visit, 824 YANG BAUMAN PT Jul 15, 2023 08:32
[2023-07-15] MEDS: ASPIRIN enteric coated 81MG TABLET PO SCH (08:57)
[2023-07-15] MEDS: EMPAGLIFLOZIN 10 MG TABLET PO SCH (08:57)
[2023-07-15] MEDS: PANTOPRAZOLE 40 MG TABLET PO SCH (08:57)
[2023-07-15] MEDS: CLOPIDOGREL 75 MG TABLET PO SCH (08:57)
[2023-07-15] MEDS: LOSARTAN 25 MG TABLET PO SCH (08:57)
[2023-07-15] MEDS: GABAPENTIN 100 MG CAPSULE PO SCH (08:57)
[2023-07-15] MEDS: AMOXICILLIN/Clavulanate 875 MG TABLET PO SCH (08:57)
[2023-07-15] MEDS: carvediloL 3.125 MG TABLET PO SCH (08:57)
[2023-07-15] MEDS ORDERED: ENOXAPARIN 40 MG/0.4 ML SYRINGE SC SCH (09:00)
[2023-07-15 11:09] VITALS: BP 125/77
== END 2023-07-15 11:20 | disposition short-term general hospital (02) | DRG 871 ==
LOC: EDUNIT# 19:37 → ER 19:38 → ICU 21:15 → 4TH 07-10 11:56 → CSD 07-14 12:23 → 4TH 07-14 16:58
PROVIDERS: ADMIT Family Medicine; ATTEND Internal Medicine
PROC: B41G1ZZ Fluoroscopy of Left Lower Extremity Arteries using Low Osmolar Contrast (ICD-10-PCS; principal; 2023-07-12)
PROC: B41F1ZZ Fluoroscopy of Right Lower Extremity Arteries using Low Osmolar Contrast (ICD-10-PCS; 2023-07-12)
PROC: B41G1ZZ Fluoroscopy of Left Lower Extremity Arteries using Low Osmolar Contrast (ICD-10-PCS; 2023-07-14)
DX: A41.9 Sepsis, unspecified organism (principal); J18.9 Pneumonia, unspecified organism; R65.21 Severe sepsis with septic shock; I42.8 Other cardiomyopathies; L03.116 Cellulitis of left lower limb; L03.115 Cellulitis of right lower limb; I13.0 Hypertensive heart and chronic kidney disease with heart failure and stage 1 through stage 4 chronic kidney disease, or unspecified chronic kidney disease; I50.22 Chronic systolic (congestive) heart failure; L97.921 Non-pressure chronic ulcer of unspecified part of left lower leg limited to breakdown of skin; J44.9 Chronic obstructive pulmonary disease, unspecified; E03.9 Hypothyroidism, unspecified; M06.9 Rheumatoid arthritis, unspecified; I73.9 Peripheral vascular disease, unspecified; F17.210 Nicotine dependence, cigarettes, uncomplicated; Z96.652 Presence of left artificial knee joint; Z95.5 Presence of coronary angioplasty implant and graft; J43.9 Emphysema, unspecified; I25.10 Atherosclerotic heart disease of native coronary artery without angina pectoris; E78.00 Pure hypercholesterolemia, unspecified; K21.9 Gastro-esophageal reflux disease without esophagitis; M81.0 Age-related osteoporosis without current pathological fracture; F41.9 Anxiety disorder, unspecified; N18.9 Chronic kidney disease, unspecified; I49.9 Cardiac arrhythmia, unspecified; Z51.5 Encounter for palliative care; R53.81 Other malaise; I65.23 Occlusion and stenosis of bilateral carotid arteries; I71.43 Infrarenal abdominal aortic aneurysm, without rupture; Z11.52 Encounter for screening for COVID-19; Z66 Do not resuscitate
CPT/HCPCS: 36248; 36415; 71045; 75716; 78452; 80053; 80061; 80306; 80320; 81000; 83605; 83735; 83880; 84100; 84443; 85007; 85025; 85027; 85610; 85652; 85730; 86141; 87040; 87070; 87081; 87088; 87205; 87420; 87636; 93005; 93017; 93041; 93306; 93925; 94640; 94664; 94760; 96361; 96365; 96367; 96372; 96375

== ENCOUNTER 2023-08-10 15:05 | Inpatient (IN) | payer MEDICARE ==
[~2023-08-10] VITALS: Ht 165.1 cm; Wt 71.5 kg
[~2023-08-10 15:05] MED LIST changes: +ASPI-1238 PO
[2023-08-10] MEDS ORDERED: fentaNYL INJECTION 100 MCG/2 ML VIAL IVP ONE (15:30)
--- NOTE | 2023-08-10 15:36 | ED General ---
General Chief Complaint: Skin/Wound Problems Stated Complaint: LT ALVA SORE Nursing Triage Note: PT TO ROOM 06 VIA [facility] FROM [facility] WITH C/O WOUND TO LEFT ALVA. NURSE AT [facility] STATES WOUND HAS INCREASED IN SIZE FROM "THE SIZE OF A FINGERNAIL" TO "3CM X 5CM" TODAY. [facility] NURSE STATES PT WAS STARTED ON BACTRIM TODAY. EMS STATES PT GIVEN MORPHINE AND PERCOCET 7.5 BOTH AT [facility]. Source of Information: Patient Exam Limitations: No Limitations History of Present Illness Date Seen by Provider: Aug 10, 2023 Time Seen by Provider: 15:10 Initial Comments This 78-year-old gentleman presents to the emergency room via EMS from [facility] with concerns about rapid progression of left lower extremity wounds. He was admitted at this facility approximately 1 month ago with sepsis. He was transferred to [place] for a vascular consultation regarding his lower extremities. Patient reports he underwent stenting but satisfactory results were not achieved. He then underwent vascular bypass of the left lower extremity. Despite restoring peripheral blood flow, he has had progression of his wounds. There is a wound on the anterior distal left lower leg that has opened widely. Reportedly the lesion was "dime sized" 4 days ago. Now it is approximately 3 x 5 cm. There is edematous tendon and tendon sheath exposed through the wound. There is purulent appearing drainage from the wound. The surrounding skin is erythematous and the left leg is edematous in comparison to the right. There are other lesser skin lesions and some areas of the skin appear friable. He retains detectable dorsal and posterior pedal pulses bilaterally by Doppler. They are not palpable due to edema. The Doppler signal appears stronger on the left than the right. He retains capillary refill of less than 5 seconds in his toes. He retains movement and sensation of the toes. Patient does not appear septic as he is afebrile, alert, oriented and active. Allergies and Home Medications Allergies Coded Allergies: Sulfa (Sulfonamide Antibiotics) (Verified Allergy, Mild, GI UPSET, 04/12/23) Patient Home Medication List Home Medication List Reviewed: Yes Acetaminophen (Tylenol) 325 Mg Tablet, 650 MG PO Q6H PRN for PAIN-MILD (1-4), (Reported) Entered as Reported by: TAYLOR MIXON on 08/11/23 7621 Last Action: Reviewed Aspirin (Aspirin EC) 81 Mg Tablet.dr, 81 MG PO DAILY, (Reported) Entered as Reported by: TAYLOR MIXON on 07/10/231228 Last Action: Reviewed Atorvastatin Calcium (Atorvastatin Calcium) 80 Mg Tablet, 80 MG PO 1400, (Reported) Entered as Reported by: TAYLOR MIXON on 08/11/231148 Last Action: Reviewed Budesonide/Formoterol Fumarate (Symbicort 160-4.5 Mcg Inhaler) 160 Mcg-4.5 Mcg/Actuation Hfa.aer.ad, 2 PUFF IH BID, (Reported) Entered as Reported by: TAYLOR MIXON on 07/10/231228 Last Action: Reviewed Clopidogrel Bisulfate (Clopidogrel) 75 Mg Tablet, 75 MG PO 1400, (Reported) Entered as Reported by: TAYLOR MIXON on 08/11/231131 Last Action: Reviewed Dexamethasone (Dexamethasone) 6 Mg Tablet, 6 MG PO DAILY, (Reported) Entered as Reported by: TAYLOR MIXON on 08/11/231131 Last Action: Reviewed Famotidine (Famotidine) 20 Mg Tablet, 20 MG PO DAILY, (Reported) Entered as Reported by: TAYLOR MIXON on 08/11/231131 Last Action: Reviewed Ferrous Sulfate (Ferrous Sulfate) 325 Mg (65 Mg Iron) Tablet, 325 MG PO 0800,1400, (Reported) Entered as Reported by: TAYLOR MIXON on 08/11/231131 Last Action: Reviewed Gabapentin (Gabapentin) 100 Mg Capsule, 100 MG PO 0800,1400,2000, (Reported) Entered as Reported by: TAYLOR MIXON on 07/10/231228 Last Action: Reviewed Levothyroxine Sodium (Levothyroxine Sodium) 150 Mcg Tablet, 150 MCG PO 1000, (Re ported) Entered as Reported by: TAYLOR MIXON on 07/10/231228 Last Action: Reviewed Losartan Potassium (Losartan Potassium) 25 Mg Tablet, 12.5 MG PO DAILY, (Reported) Entered as Reported by: TAYLOR MIXON on 08/11/231131 Last Action: Reviewed Midodrine HCl (Midodrine HCl) 10 Mg Tablet, 10 MG PO 0800,1400,2000, (Reported) Entered as Reported by: TAYLOR MIXON on 08/11/231131 Last Action: Reviewed Morphine Sulfate (Morphine Sulfate ER) 15 Mg Tablet.er, 15 MG PO TID, (Reported) Entered as Reported by: TAYLOR MIXON on 07/10/231228 Last Action: Reviewed Oxycodone HCl/Acetaminophen (Oxycodon-Acetaminophen 7.5-325) 7.5 Mg-325 Mg Tablet, 1 EA PO Q6H PRN for PAIN-MODERATE (5-7), (Reported) Entered as Reported by: TAYLOR MIXON on 08/11/231131 Last Action: Reviewed Pantoprazole Sodium (Pantoprazole Sodium) 40 Mg Tablet.dr, 40 MG PO 0800,1400, (Reported) Entered as Reported by: TAYLOR MIXON on 08/11/231131 Last Action: Reviewed Spironolactone (Spironolactone) 25 Mg Tablet, 25 MG PO DAILY, (Reported) Entered as Reported by: TAYLOR MIXON on 08/11/231131 Last Action: Reviewed Sulfamethoxazole/Trimethoprim (Bactrim Ds Tablet) 800 Mg-160 Mg Tablet, 1 EA PO BID, (Reported) Entered as Reported by: TAYLOR MIXON on 08/11/231131 Last Action: Reviewed Tizanidine HCl (Tizanidine HCl) 4 Mg Tablet, 4 MG PO Q12H PRN for MUSCLE SPASMS, (Reported) Entered as Reported by: TAYLOR MIXON on 07/10/231228 Last Action: Reviewed Discontinued Medications Esomeprazole Magnesium (Esomeprazole Magnesium) 40 Mg Capsule.dr, 40 MG PO DAILY, (Reported) Discontinued Reason: No Longer Taking Entered as Reported by: TAYLOR MIXON on 07/10/231228 Last Action: Discontinued Furosemide (Furosemide) 20 Mg Tablet, 20 MG PO DAILY, (Reported) Discontinued Reason: No Longer Taking Entered as Reported by: TAYLOR MIXON on 07/10/23 123 Last Action: Discontinued Hydrochlorothiazide (Hydrochlorothiazide) 25 Mg Tablet, 25 MG PO DAILY, (Reported) Discontinued Reason: No Longer Taking Entered as Reported by: TAYLOR MIXON on 07/10/231228 Last Action: Discontinued Oxycodone HCl/Acetaminophen (Oxycodone-Acetaminophen 10-325) 10 Mg-325 Mg Tablet, 1 EA PO TID PRN for PAIN-MODERATE (5-7), (Reported) Discontinued Reason: No Longer Taking Entered as Reported by: TAYLOR MIXON on 07/10/23 1229 Last Action: Discontinued Review of Systems Review of Systems Constitutional: no symptoms reported EENTM: no symptoms reported Respiratory: no symptoms reported Cardiovascular: other (complications from severe PVD) Gastrointestinal: no symptoms reported Genitourinary: no symptoms reported Musculoskeletal: see HPI Skin: see HPI Psychiatric/Neurological: No Symptoms Reported Hematologic/Lymphatic: No Symptoms Reported Immunological/Allergic: no symptoms reported Past Rmpzqqd-Yfpysw-Dlxbaz Hx Patient Social History Tobacco Use?: Yes Tobacco type used: Cigarettes Smoking Status: Current Everyday Smoker Smokeless Tobacco Frequency: Never a User Use of E-Cig and/or Vaping dev: No Use of E-Cig and/or Vaping Santo: Never a User Substance use?: No Alcohol Use?: No Pt feels they are or have been: No Immunizations Up To Date Tetanus Booster (TDap): Unknown First/Initial COVID19 Vaccinat: Never had Second COVID19 Vaccination Kalen: Never had Third COVID19 Vaccination Date: Never had Seasonal Allergies Seasonal Allergies: Yes Past Medical History Surgery/Hospitalization HX: L TKR, BOWEL RESECTION, LEFT WRIST, CARDIAC STENTS, HTN, COPD, RA, HYPOTHRYOIDISM, CH. LEG EDEMA, CAD, PVD, HLD, GERD, ANXIETY, CHRONIC LEG WOUNDS, PSORIASIS, ECZEMA Surgeries: Yes (L KNEE REPLACEMENT, L WRIST, ANGIOPLASTY, colon resection with colostomy) Abdominal, Bowel Surgery, Cardiac, Coronary Stent, Joint Replacement, Orthopedic, Vascular Surgery (stending and bypass of the LLE) Respiratory: Yes Chronic Bronchitis, COPD, Emphysema Currently Using CPAP: No Currently Using BIPAP: No Cardiac: Yes ( PULMONARY HTN;COVID 01/2023-HOSPITALIZED;CAROTID DX; CHF) Cardiomyopathy, Chronic Edema/Swelling, Coronary Artery Disease, High Chol esterol, Hypertension, Peripheral Vascular, Valvular Heart Disease Neurological: Yes (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 DIFF COLITIS) Colitis, Gastroesophageal Reflux, Hemorrhoids, C-Diff Musculoskeletal: Yes (BILATERAL OLECRANON BURSITIS) Osteoporosis, Arthritis, Rheumatoid Arthritis Endocrine: Yes Hypothyroidsim HEENT: Yes (GLASSES, DENTURES) Loss of Vision: Bilateral Hearing Impairment: Denies Cancer: No Psychosocial: Yes Anxiety Integumentary: Yes (CHRONIC LEG WOUNDS-D/T PAD; CHRONIC CELLULITIS OF LEGS) Eczema, Psoriasis Blood Disorders: Yes (HX ANEMIA) Adverse Reaction/Blood Tranf: No (HAS HAD BLOOD WITH NO REACTION) Family Medical History Patient reports no known family medical history. No Pertinent Family Hx SOCIAL HISTORY: -SMOKING -ETOH -DRUG HE HAS SEVERE PERIPHERAL ARTERY DISEASE, AND HAD PERIPHERAL ANGIOGRAM BY DR. HALL IN NOVEMBER OF THIS YEAR/2022 SHOWING: -MODERATE SIZED INFRA-RENAL ABDOMINAL AORTIC ANEURYSM -SEVERE STENOSIS AT RIGHT COMMON ILIAC ARTERY AT ORIGIN -SEVERE STENOSIS OF LEFT COMMON ILIAC ARTERY AT PROXIMAL PORTION FOLLOWED BY ANEURYSM. -MODERATE TO SEVERE STENOSIS DIFFUSE DISEASE OF LEFT S.F.A. WITH ONE AREA OF ANEURYSMAL DILATION -MODERATE DIFFUSE DISEASED OF RIGHT S.F.A. PT WAS REFERRED TO VASCULAR SURGERY, BUT PT DID NOT FOLLOW UP ADVISED. Physical Exam Vital Signs Vital Signs - First Documented 08/10/23 15:06 Temp 36.8 Pulse 72 Resp 18 B/P (MAP) 115/63 (80) O2 Delivery Room Air Capillary Refill : Less Than 3 Seconds Height, Weight, BMI Height: 5'9.00" Weight: 142lbs. 8.0oz. 64.852169dl; 24.00 BMI Method:Estimated General Appearance: No Apparent Distress, WD/WN HEENT: PERRL/EOMI, Normal ENT Inspection Neck: Normal Inspection Respiratory: Lungs Clear, Normal Breath Sounds, No Accessory Muscle Use Cardiovascular: Regular Rate, Rhythm, No Murmur Extremity: Swelling, Other (Large open wound on the distal anterior left lower leg with exposed edematous tendon and tendon sheath. Purulent drainage was noted. There is surrounding erythema and warmth of the distal left lower leg. Other smaller skin lesions are also noted. Skin integrity is poor and boggy. Arthritic disfigurement of the hands. 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 Norm as Tested Skin: Other (as above) Focused Exam Lactate Level 08/10/23 15:18: Lactic Acid Level 1.40 Lactic Acid Level Laboratory Tests Test 08/10/23 15:18 Lactic Acid Level 1.40 MMOL/L (0.50-2.00) Procedures/Interventions Date of ETT Placement: Nov 10, 2016 Time of ETT Placement: 2220 Progress/Results/Core Measures Suspected Sepsis SIRS Temperature: Pulse: 72 Respiratory Rate: 18 Laboratory Tests 08/10/23 15:18: White Blood Count 18.8H Blood Pressure 115 /63 Mean: 80 08/10/23 15:18: Lactic Acid Level 1.40 Laboratory Tests 08/10/23 15:18: Creatinine 1.43H, INR Comment 0.8, Platelet Count 268, Total Bilirubin 0.4 Results/Orders Lab Results Laboratory Tests Test 08/10/23 15:18 Range/Units White Blood Count 18.8 H 4.3-11.0 10^3/uL Red Blood Count 4.06 L 4.30-5.52 10^6/uL Hemoglobin 10.0 L 13.3-17.7 g/dL Hematocrit 33 L 40-54 % Mean Corpuscular Volume 81 80-99 fL Mean Corpuscular Hemoglobin 25 25-34 pg Mean Corpuscular Hemoglobin Concent 30 L 32-36 g/dL Red Cell Distribution Width 25.6 H 10.0-14.5 % Platelet Count 268 130-400 10^3/uL Mean Platelet Volume 9.9 9.0-12.2 fL Immature Granulocyte % (Auto) 1 % Neutrophils (%) (Auto) 93 H 42-75 % Lymphocytes (%) (Auto) 4 L 12-44 % Monocytes (%) (Auto) 2 0-12 % Eosinophils (%) (Auto) 0 0-10 % Basophils (%) (Auto) 0 0-10 % Neutrophils # (Auto) 17.4 H 1.8-7.8 10^3/uL Lymphocytes # (Auto) 0.8 L 1.0-4.0 10^3/uL Monocytes # (Auto) 0.5 0.0-1.0 10^3/uL Eosinophils # (Auto) 0.0 0.0-0.3 10^3/uL Basophils # (Auto) 0.0 0.0-0.1 10^3/uL Immature Granulocyte # (Auto) 0.1 0.0-0.1 10^3/uL Neutrophils % (Manual) 95 % Lymphocytes % (Manual) 3 % Monocytes % (Manual) 2 % Eosinophils % (Manual) 0 % Basophils % (Manual) 0 % Band Neutrophils 0 % Polychromasia MODERATE Hypochromasia SLIGHT Anisocytosis MARKED Target Cells SLIGHT Prothrombin Time 11.3 L 12.2-14.7 SEC INR Comment 0.8 0.8-1.4 Activated Partial Thromboplast Time 20 L 24-35 SEC Sodium Level 141 135-145 MMOL/L Potassium Level 5.1 H 3.6-5.0 MMOL/L Chloride Level 107 98-107 MMOL/L Carbon Dioxide Level 26 21-32 MMOL/L Anion Gap 8 5-14 MMOL/L Blood Urea Nitrogen 33 H 7-18 MG/DL Creatinine 1.43 H 0.60-1.30 MG/DL Estimat Glomerular Filtration Rate 50 BUN/Creatinine Ratio 23 Glucose Level 130 H 70-105 MG/DL Lactic Acid Level 1.40 0.50-2.00 MMOL/L Calcium Level 8.2 L 8.5-10.1 MG/DL Corrected Calcium 8.7 8.5-10.1 MG/DL Total Bilirubin 0.4 0.1-1.0 MG/DL Aspartate Amino Transf (AST/SGOT) 21 5-34 U/L Alanine Aminotransferase (ALT/SGPT) 31 0-55 U/L Alkaline Phosphatase 64 40-136 U/L Total Protein 6.6 6.4-8.2 GM/DL Albumin 3.4 3.2-4.5 GM/DL Micro Results Microbiology 08/10/23 Blood Culture - Preliminary, Resulted 08/10/23 Blood Culture - Preliminary, Resulted My Orders Orders - DENIS SUMMERS MD Cbc And Automated Diff (08/10/23 15:22) Comprehensive Metabolic Panel (08/10/23 15:22) Blood Culture (08/10/23 15:22) Protime With Inr (08/10/23 15:22) Partial Thromboplastin Time (08/10/23 15:22) Ed Iv/Invasive Line Start (08/10/23 15:22) Vital Signs Adult Sepsis Patie Q15M (08/10/23 15:22) Remove Rings In Anticipation O (08/10/23 15:22) Lactic Acid Analyzer (08/10/23 15:22) Tibia/Fibula, Left, 2 Views (08/10/23 15:22) Foot, Left, 3 Views (08/10/23 15:22) Fentanyl Injection (Fentanyl Injection (08/10/23 15:30) Manual Differential (08/10/23 15:18) Ns Iv 1000 Ml (Ns Iv 1000 Ml) (08/10/23 16:15) Piperacillin/Tazobactam (Piperacillin/Ta (08/10/23 16:45) Knee, Left, 2 Views (Ap & Lat) (08/10/23 16:54) Vancomycin Injection (Vancomycin Injecti (08/10/23 17:30) Vancomycin Injection (Vancomycin Injecti (08/10/23 18:30) Medications Given in ED Vital Signs/I&O 08/10/23 15:06 Temp 36.8 Pulse 72 Resp 18 B/P (MAP) 115/63 (80) O2 Delivery Room Air 08/10/23 23:59 Intake Total 1100 ml Balance 1100 ml Capillary Refill : Less Than 3 Seconds Blood Pressure Mean: 80 Progress Note : Progress Note Alix was interviewed and examined upon arrival. Report was received from EMS. He was given fentanyl for additional pain control. Labs were obtained, reviewed, and interpreted by me. There is notable leukocytosis with WBC count of 18.8. Anemia with hemoglobin of 10.0 was noted. Chemistry revealed slight hyperkalemia with potassium of 5.1. BUN was elevated at 33. Creatinine was mildly elevated at 1.43. GFR was 50. Chemistry was otherwise unremarkable. Lactic acid was normal at 1.4. Blood cultures were obtained. Antibiotic therapy was provided with Zosyn and vancomycin. X-ray imaging reports were reviewed as noted below. Dr. Morrissey, general surgeon, was consulted and presented to the emergency room. Patient's clinical presentation remains to a poor prognosis as he has had significant tissue degradation despite recently re vitalized vascular flow. There appears to be extremely compromised tissue more than long term up the left lower leg. Dr. Morrissey would recommend pursuing left AKA due to poor tissue integrity and the presence of a metallic left knee prosthesis. Plan is for admission with symptom control and IV antibiotics with anticipated left AKA. Dr. Chavis (hospitalist) was consulted for medical management. Diagnostic Imaging Diagonstic Imaging: Xray Plain Films/CT/US/NM/MRI: other (left foot) Comments NAME: ALIX BOWEN [facility] REC#: [id number] PT STATUS: REG ER : 1945 PHYSICIAN: DENIS SUMMERS MD ADMIT DATE: 08/10/23/ER Signed Date of Exam:08/10/23 FOOT, LEFT, 3 VIEWS INDICATION: Foot pain. EXAMINATION: Three views were obtained. FINDINGS: The bones are diffusely osteopenic. There is a pes planus deformity. No acute fracture or dislocation. There are degenerative changes. There are findings suspect for a nondisplaced fracture involving the base of the 5th metatarsal. IMPRESSION: 1. Findings suspect for a nondisplaced fracture involving the base of the 5th metatarsal; however, evaluation is limited due to severe osteopenia. This can be further evaluated with either CT or MRI. 2. Osteopenia and degenerative changes. 3. No other fracture or dislocation. Dictated by: Dictated on workstation # [id number] Dict: 08/10/23 1550 Trans: 08/10/231609 [facility] [id number] Interpreted by: DANIAL GOODE MD Electronically signed by: DANIAL GOODE MD 08/10/232 Diagonstic Imaging: Xray Plain Films/CT/US/NM/MRI: leg Comments NAME: ALIX BOWEN [facility] REC#: [id number] PT STATUS: REG ER : 1945 PHYSICIAN: DENIS SUMMERS MD ADMIT DATE: 08/10/23/ER Signed Date of Exam:08/10/23 TIBIA/FIBULA, LEFT, 2 VIEWS INDICATION: Leg pain. EXAMINATION: Two views were obtained. FINDINGS: There are postoperative changes of a left knee arthroplasty. The hardware is in satisfactory position. The left tibia and fibula are intact. There is no fracture or dislocation. IMPRESSION: 1. No acute fracture or dislocation. 2. Stable left knee arthroplasty. Dictated by: Dictated on workstation # [id number] Dict: 08/10/23 1546 Trans: 08/10/231609 [facility] [id number] Interpreted by: DANIAL GOODE MD Electronically signed by: DANIAL GOOED MD 08/10/23 1611 Diagonstic Imaging: Xray Plain Films/CT/US/NM/MRI: knee Comments NAME: ALIX BOWEN [facility] REC#: [id number] PT STATUS: REG ER : 1945 PHYSICIAN: DENIS SUMMERS MD ADMIT DATE: 08/10/23/ER Signed Date of Exam:08/10/23 KNEE, LEFT, 2 VIEWS (AP & LAT) INDICATION: Lateral marker on pinnacle of knee to assess position of prosthesis in surgery. COMPARISON: None. FINDINGS/ IMPRESSION: Single lateral view of the knee shows a right knee arthroplasty. There is a small BB shaped marker projected over the superior margin of the patella. Dictated by: Dictated on workstation # [id number] Dict: 08/10/231717 Trans: 08/10/231724 [facility] [id number] Interpreted by: OISEL CALDWELL MD Electronically signed by: OSIEL CALDWELL MD 08/10/231724 Departure Communication (Admissions) Time/Spoke to Admitting Phy: 16:18 Dr. Morrissey Time/Spoke to Consulting Phy: 17:30 Dr. Chavis Impression Primary Impression: Necrotic wound of left hand Qualified Codes: S61.402D - Unspecified open wound of left hand, subsequent encounter; I96 - Gangrene, not elsewhere classified Additional Impressions: Cellulitis Qualified Codes: L03.116 - Cellulitis of left lower limb Peripheral vascular disease Disposition: ADMITTED INPATIENT Condition: Stable Admissions Decision to Admit Reason: Admit from ER (General) Decision to Admit/Date: Aug 10, 2023 Time/Decision to Admit Time: 16:18 Departure-Patient Inst. Referrals: ZUHAIR JOE MD (PCP/Family) Primary Care Physician DENIS SUMMERS MD Aug 10, 2023 15:36
[2023-08-10 15:38] LABS: ALBUMIN 3.4 GM/DL (3.2-4.5)
[2023-08-10 15:39] LABS: POTASSIUM 5.1 MMOL/L (3.6-5.0)
[2023-08-10 15:40] LABS: CALCIUM 8.2 MG/DL (8.5-10.1)
[2023-08-10 15:41] LABS: TOTAL PROTEIN 6.6 GM/DL (6.4-8.2)
[2023-08-10 15:43] LABS: BILIRUBIN,TOTAL 0.4 MG/DL (0.1-1.0)
[2023-08-10 15:44] LABS: BASOPHILS % (AUTO) 0 % (0-10); EOSINOPHILS % (AUTO) 0 % (0-10); HEMATOCRIT 33 % (40-54); LYMPHOCYTES # (AUTO) 0.8 10^3/uL (1.0-4.0); LYMPHOCYTES % (AUTO) 4 % (12-44); MEAN CORPUSCULAR HEMOGLOBIN 25 pg (25-34); MEAN CORPUSCULAR HGB CONC 30 g/dL (32-36); MEAN CORPUSCULAR VOLUME 81 fL (80-99); MEAN PLATELET VOLUME 9.9 fL (9.0-12.2); MONOCYTES # (AUTO) 0.5 10^3/uL (0.0-1.0); MONOCYTES % (AUTO) 2 % (0-12); NEUTROPHILS # (AUTO) 17.4 10^3/uL (1.8-7.8); NEUTROPHILS % (AUTO) 93 % (42-75); PLATELET COUNT 268 10^3/uL (130-400); WHITE BLOOD COUNT 18.8 10^3/uL (4.3-11.0)
[2023-08-10 15:45] LABS: CREATININE SERUM 1.43 MG/DL (0.60-1.30)
[2023-08-10 15:49] LABS: BAND NEUTROPHILS 0 %; BASOPHILS % (MANUAL) 0 %; EOSINOPHILS % (MANUAL) 0 %; HYPOCHROMASIA SLIGHT; LYMPHOCYTES % (MANUAL) 3 %; MONOCYTES % (MANUAL) 2 %; NEUTROPHILS % (MANUAL) 95 %; POLYCHROMASIA MODERATE
[2023-08-10 15:50] LABS: ANISOCYTOSIS MARKED; TARGET CELLS SLIGHT
--- NOTE | 2023-08-10 15:53 | Diagnostic Imaging Report ---
INDICATION: Leg pain. EXAMINATION: Two views were obtained. FINDINGS: There are postoperative changes of a left knee arthroplasty. The hardware is in satisfactory position. The left tibia and fibula are intact. There is no fracture or dislocation. IMPRESSION: 1. No acute fracture or dislocation. 2. Stable left knee arthroplasty. Dictated by: Dictated on workstation # [id number]
--- NOTE | 2023-08-10 15:56 | Diagnostic Imaging Report ---
INDICATION: Foot pain. EXAMINATION: Three views were obtained. FINDINGS: The bones are diffusely osteopenic. There is a pes planus deformity. No acute fracture or dislocation. There are degenerative changes. There are findings suspect for a nondisplaced fracture involving the base of the 5th metatarsal. IMPRESSION: 1. Findings suspect for a nondisplaced fracture involving the base of the 5th metatarsal; however, evaluation is limited due to severe osteopenia. This can be further evaluated with either CT or MRI. 2. Osteopenia and degenerative changes. 3. No other fracture or dislocation. Dictated by: Dictated on workstation # [id number]
[2023-08-10 15:57] LABS: INR 0.8 (0.8-1.4); PROTHROMBIN TIME PATIENT 11.3 SEC (12.2-14.7)
[2023-08-10] MEDS ORDERED: NS IV 1000 ML 1,000 ML IV SCH (16:15)
[2023-08-10] MEDS ORDERED: PIPERACILLIN/Tazobactam 4.5 GM in NS (IVPB) 100 ML 100 ML IV ONE (16:45)
--- NOTE | 2023-08-10 17:23 | Diagnostic Imaging Report ---
INDICATION: Lateral marker on pinnacle of knee to assess position of prosthesis in surgery. COMPARISON: None. FINDINGS/ IMPRESSION: Single lateral view of the knee shows a right knee arthroplasty. There is a small BB shaped marker projected over the superior margin of the patella. Dictated by: Dictated on workstation # [id number]
[2023-08-10] MEDS ORDERED: VANCOMYCIN INJECTION 750 MG in NS (IVPB) 100 ML 100 ML IV ONE (17:30)
[2023-08-10] MEDS ORDERED: VANCOMYCIN INJECTION 500 MG in NS (IVPB) 100 ML 100 ML IV ONE (18:30)
[2023-08-10 18:33] VITALS: BP 126/61
[2023-08-10] MEDS ORDERED: ONDANSETRON INJECTION 4 MG/2 ML (SDV) IVP PRN (18:45)
[2023-08-10] MEDS ORDERED: VANCOMYCIN INJECTION 0.1 MG in NS (IVPB) 250 ML 250 ML IV SCH (18:45)
[2023-08-10 19:26] VITALS: BP 126/81
[2023-08-10] MEDS ORDERED: RT-Ipratropium/Albuterol NEB 3 ML VIAL INH PRN (19:45)
[2023-08-10 20:32] VITALS: BP 126/61
--- NOTE | 2023-08-10 20:43 | History & Physical-Surgical ---
History of Present Illness History of Present Illness Reason for visit/HPI CC: Left leg open wound. Patient is a 78 year old male with chronic peripheral artery disease. Since about June he has had a small wound to the left lower extremity. It was being taken care of and noticed to be significantly larger. Initially was about the size of a dime and now 3x5 cm. Has pain in the distal left lower extremity. Has some purluelnt drainage from wound. Has had stents and bypass to the left leg in the last month patient states. Despite revascularization this has continued to worsen. Patient states he spend most of his time in a wheel chair with his lower extremities being too weak to stand/walk regularly. Patient wbc is elevated at 18.8. Is on Aspirin and Plavix due to stents/bypass. Date of Admission Aug 10, 2023 at 18:03 Date Seen by a Provider: Aug 10, 2023 Time Seen by a Provider: 17:00 I consulted on this patient on 08/10/23 20:38 Attending Physician Ramy Ely MD Admitting Physician Admitting Physician: Rohit Squires DO Attending Physician: Rohit Squires DO Consult Allergies and Home Medications Allergies Coded Allergies: Sulfa (Sulfonamide Antibiotics) (Verified Allergy, Mild, GI UPSET, 04/12/23) Patient Home Medication List Home Medication List Reviewed: Yes Amitriptyline HCl (Amitriptyline HCl) 10 Mg Tablet, 10 MG PO HS, (Reported) Entered as Reported by: TAYLOR MIXON on 07/10/23 1232 Aspirin (Aspirin EC) 81 Mg Tablet., 81 MG PO DAILY, (Reported) Entered as Reported by: TAYLOR MIXON on 07/10/23 1229 Budesonide/Formoterol Fumarate (Symbicort 160-4.5 Mcg Inhaler) 160 Mcg-4.5 Mcg/Actuation Hfa.aer.ad, 2 PUFF IH BID PRN for SHORTNESS OF BREATH, (Reported) Entered as Reported by: TAYLOR MIXON on 07/10/23 1229 Esomeprazole Magnesium (Esomeprazole Magnesium) 40 Mg Capsule., 40 MG PO DAILY, (Reported) Entered as Reported by: TAYLOR MIXON on 07/10/23 1229 Furosemide (Furosemide) 20 Mg Tablet, 20 MG PO DAILY, (Reported) Entered as Reported by: TAYLOR MIXON on 07/10/23 1232 Gabapentin (Gabapentin) 100 Mg Capsule, 100 MG PO TID, (Reported) Entered as Reported by: TAYLOR MIXON on 07/10/23 1229 Hydrochlorothiazide (Hydrochlorothiazide) 25 Mg Tablet, 25 MG PO DAILY, (Reported) Entered as Reported by: TAYLOR MIXON on 07/10/23 1229 Levothyroxine Sodium (Levothyroxine Sodium) 150 Mcg Tablet, 150 MCG PO DAILY, (Reported) Entered as Reported by: TAYLOR MIXON on 07/10/23 1229 Morphine Sulfate (Morphine Sulfate ER) 15 Mg Tablet.er, 15 MG PO Q8H, (Reported) Entered as Reported by: TAYLOR MIXON on 07/10/23 1229 Oxycodone HCl/Acetaminophen (Oxycodone-Acetaminophen 10-325) 10 Mg-325 Mg Tablet, 1 EA PO TID PRN for PAIN-MODERATE (5-7), (Reported) Entered as Reported by: TAYLOR MIXON on 07/10/23 1229 Tizanidine HCl (Tizanidine HCl) 4 Mg Tablet, 4 MG PO BID, (Reported) Entered as Reported by: TAYLOR MIXON on 07/10/23 1229 Past [id number]-Cabujq Hx Patient Social History Smoking Status: Current Everyday Smoker Former Smoker, Quit: Dec 17, 2016 Type Used: Cigarettes Recent Hopitalizations: No Alcohol Use?: No Immunizations Up To Date Tetanus Booster (TDap): Unknown Date of Pneumonia Vaccine: Aug 08, 2015 Date of Influenza Vaccine: Jun 12, 2023 Seasonal Allergies Seasonal Allergies: Yes Surgeries History of Surgeries: Yes (L KNEE REPLACEMENT, L WRIST, ANGIOPLASTY, colon resection with colostomy, ) Surgeries: Abdominal, Bowel Surgery, Cardiac, Coronary Stent, Joint Replacement, Orthopedic, Vascular Surgery Respiratory History of Respiratory Disorde: Yes Respiratory Disorders: Chronic Bronchitis, COPD, Emphysema Cardiovascular History of Cardiac Disorders: Yes ( PULMONARY HTN;COVID 01/2023-HOSPITA LIZED;CAROTID DX; CHF) Cardiac Disorders: Cardiomyopathy, Chronic Edema/Swelling, Coronary Artery Disease, High Cholesterol, Hypertension, Peripheral Vascular, Valvular Heart Disease Neurological History of Neurological Disord: Yes (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 DIFF COLITIS) Gastrointestinal Disorders: Colitis, Gastroesophageal Reflux, Hemorrhoids, C- Diff Musculoskeletal History of Musculoskeletal Dis: Yes (BILATERAL OLECRANON BURSITIS) Musculoskeletal Disorders: Osteoporosis, Arthritis, Rheumatoid Arthritis Endocrine History of Endocrine Disorders: Yes Endocrine Disorders: Hypothyroidsim HEENT History of HEENT Disorders: Yes (GLASSES, DENTURES) Loss of Vision: Bilateral Hearing Impairment: Denies Cancer History of Cancer: No Psychosocial History of Psychiatric Problem: Yes Behavioral Health Disorders: Anxiety Integumentary History of Skin or Integumenta: Yes (CHRONIC LEG WOUNDS-D/T PAD; CHRONIC CELLULITIS OF LEGS) Skin/Integumentary Disorders: Eczema, Psoriasis Blood Transfusions History of Blood Disorders: Yes (HX ANEMIA) Adverse Reaction to a Blood Tr: No (HAS HAD BLOOD WITH NO REACTION) Reviewed Nursing Assessment Reviewed/Agree w Nursing PMH: Yes Family Medical History Significant Family History: No Pertinent Family Hx Family Medial History: Patient reports no known family medical history. Review of Systems Constitutional: No chills, No diaphoresis; weakness EENTM: No blurred vision, No double vision Respiratory: No cough, No dyspnea on exertion Cardiovascular: No chest pain, No palpitations Gastrointestinal: No abdominal pain, No nausea, No vomiting Genitourinary: No decreased output, No discharge Musculoskeletal: No back pain, No joint pain; other (left leg infection) Skin: No change in color, No change in hair/nails Psychiatric/Neurological: Denies Anxiety, Denies Depressed, Denies Emotional Problems All Other Systems Reviewed Negative Unless Noted: Yes (Negative excepted noted.) Physical Exam Vital Signs Vital Signs - First Documented 08/10/23 08/10/23 08/10/23 15:06 18:09 19:26 Temp 36.8 Pulse 72 Resp 18 B/P (MAP) 115/63 (80) Pulse Ox 98 O2 Delivery Room Air FiO2 21 Capillary Refill : Less Than 3 Seconds Height, Weight, BMI Height: 5'9.00" Weight: 142lbs. 8.0oz. [id number]; 26.23 BMI Method:Estimated General Appearance: Anxious, Chronically ill HEENT: PERRL/EOMI, Normal ENT Inspection Neck: Normal Inspection, Non Tender, Supple Respiratory: Chest Non Tender, No Accessory Muscle Use, No Respiratory Distress Cardiovascular: Regular Rate, Rhythm, No JVD Gastrointestinal: Non Tender, Soft Rectal: Deferred Back: Normal Inspection, No CVA Tenderness Extremity: Swelling, Other (left lower extremity wound 3x5 cm anterior johnston edematous tendons and subcutaneous tissues with sloughing/purulent drainage. Multiple areas of skin break down lower extremities distal to knees) Neurologic/Psychiatric: Alert, Oriented x3 Skin: Normal Color, Warm/Dry Lymphatic: No Adenopathy Data Review Labs Laboratory Tests 08/10/23 15:18: White Blood Count 18.8H, Red Blood Count 4.06L, Hemoglobin 10.0L, Hematocrit 33L , Mean Corpuscular Volume 81, Mean Corpuscular Hemoglobin 25, Mean Corpuscular Hemoglobin Concent 30L, Red Cell Distribution Width 25.6H, Platelet Count 268, Mean Platelet Volume 9.9, Immature Granulocyte % (Auto) 1, Neutrophils (%) (Auto) 93H, Lymphocytes (%) (Auto) 4L, Monocytes (%) (Auto) 2, Eosinophils (%) (Auto) 0, Basophils (%) (Auto) 0, Neutrophils # (Auto) 17.4H, Lymphocytes # (Auto) 0.8L, Monocytes # (Auto) 0.5, Eosinophils # (Auto) 0.0, Basophils # (Auto) 0.0, Immature Granulocyte # (Auto) 0.1, Neutrophils % (Manual) 95, Lymphocytes % (Manual) 3, Monocytes % (Manual) 2, Eosinophils % (Manual) 0, Basophils % (Manual) 0, Band Neutrophils 0, Polychromasia MODERATE, Hypochromasia SLIGHT, Anisocytosis MARKED, Target Cells SLIGHT, Prothrombin Time 11.3L, INR Comment 0.8, Activated Partial Thromboplast Time 20L, Sodium Level 141, Potassium Level 5.1H, Chloride Level 107, Carbon Dioxide Level 26, Anion Gap 8, Blood Urea Nitrogen 33H, Creatinine 1.43H, Estimat Glomerular Filtration Rate 50, BUN/Creatinine Ratio 23, Glucose Level 130H, Lactic Acid Level 1.40, Calcium Level 8.2L, Corrected Calcium 8.7, Total Bilirubin 0.4, Aspartate Amino Transf (AST/SGOT) 21, Alanine Aminotransferase (ALT/SGPT) 31, Alkaline Phosphatase 64, Total Protein 6.6, Albumin 3.4 Assessment/Plan Assessment/Plan Admission Diagonsis left lower extremity infected wound and soft tissues Chronic peripheral artery disease History of revascularization left lower extremity history of left knee replacement half-way current use antiplatelet. Patient with wound that is now infected and enlarging. I feel this is involving tendons, soft tissue and skin I discussed with patient surgical options but in current state I feel that above knee amputation is the best option. We discussed conservative and other surgical options such as extensive debridement and wound care. Patient understands risks and benefits and wishes to proceed with left above knee amputation. NPO after midnight IV antibiotics Due to antiplatelets will likely give platelets Consult medicine. Pain control. Admission Status: Inpatient Order (span 2 midnights) Reason for Inpatient Admission: Patient will need surgical intervention and postoperative care which is expected to be greater that 2 midnights Assessment/Plan left lower extremity infected wound and soft tissues Chronic peripheral artery disease History of revascularization left lower extremity history of left knee replacement half-way current use antiplatelet. Patient with wound that is now infected and enlarging. I feel this is involving tendons, soft tissue and skin I discussed with patient surgical options but in current state I feel that above knee amputation is the best option. We discussed conservative and other surgical options such as extensive debridement and wound care. Patient understands risks and benefits and wishes to proceed with left above knee amputation. NPO after midnight IV antibiotics Due to antiplatelets will likely give platelets Consult medicine. Pain control. ROHIT SQUIRES DO Aug 10, 2023 20:43
[2023-08-10] MEDS: PIPERACILLIN/Tazobactam 4.5 GM in NS (IVPB) 100 ML 100 ML IV SCH (22:34)
[2023-08-10] MEDS: morphine EXTENDED RELEASE 15 MG TABLET PO SCH (22:34)
[2023-08-10] MEDS: GABAPENTIN 100 MG CAPSULE PO SCH (22:34)
[2023-08-11] VITALS (17 sets, daily range): BP systolic 113–169; BP diastolic 60–97
[2023-08-11] MEDS ORDERED: LACTATED RINGERS 1,000 ML 1,000 ML IV ONE (01:39)
[2023-08-11] MEDS: morphine INJ 4 MG/ML 1 ML (VIAL/SYRINGE) IVP PRN ×4 (01:44→22:26)
[2023-08-11] MEDS: LACTATED RINGERS 1,000 ML 1,000 ML IV SCH ×3 (02:20→19:30)
[2023-08-11] MEDS: LEVOTHYROXINE 150 MCG TABLET PO SCH (05:11)
[2023-08-11] MEDS: PIPERACILLIN/Tazobactam 4.5 GM in NS (IVPB) 100 ML 100 ML IV SCH ×3 (06:27→22:26)
[2023-08-11 06:32] LABS: HEMATOCRIT 27 % (40-54); HEMOGLOBIN 8.4 g/dL (13.3-17.7); MEAN CORPUSCULAR HEMOGLOBIN 25 pg (25-34); MEAN CORPUSCULAR HGB CONC 31 g/dL (32-36); MEAN CORPUSCULAR VOLUME 81 fL (80-99); MEAN PLATELET VOLUME 9.9 fL (9.0-12.2); PLATELET COUNT 217 10^3/uL (130-400); WHITE BLOOD COUNT 16.2 10^3/uL (4.3-11.0)
[2023-08-11 06:42] LABS: CALCIUM 8.1 MG/DL (8.5-10.1); CREATININE SERUM 1.34 MG/DL (0.60-1.30); POTASSIUM 5.2 MMOL/L (3.6-5.0)
[2023-08-11] MEDS ORDERED: LACTATED RINGERS 1,000 ML 1,000 ML IV PRN (07:30)
--- NOTE | 2023-08-11 07:40 | Progress Note - Surgery ---
MAGALIE KHAN 08/11/23 0740: Subjective Date Seen by a Provider: Aug 11, 2023 Time Seen by a Provider: 07:00 Subjective/Events-last exam Patient is feeling unwell this morning and is in pain. He is looking forward to getting his surgery done. He denies nausea, vomiting, fever, chills. Review of Systems General: No Chills, No Night Sweats HEENT: No Head Aches, No Visual Changes Pulmonary: No Dyspnea, No Cough Cardiovascular: No: Chest Pain, Palpitations Gastrointestinal: No: Nausea, Vomiting Genitourinary: No Dysuria, No Frequency Musculoskeletal: No: neck pain, shoulder pain Neurological: No: Change in speech, Confusion Focused Exam Lactate Level 08/10/23 15:18: Lactic Acid Level 1.40 Objective Exam Vital Signs Date Time Temp Pulse Resp B/P (MAP) Pulse Ox O2 Delivery O2 Flow Rate FiO2 08/11/23 04:00 36.9 87 18 116/70 (85) 98 Room Air 08/11/23 00:25 36.5 98 18 125/62 (83) 98 Room Air 08/10/23 20:32 36.8 59 17 126/61 (82) 96 Room Air 08/10/23 20:22 95 Room Air 08/10/23 19:26 36.8 61 96 21 08/10/23 18:34 96 Room Air 08/10/23 18:33 36.8 59 17 126/61 (82) 96 Room Air 08/10/23 18:09 36.9 71 17 119/59 98 Room Air 08/10/23 15:06 36.8 72 18 115/63 (80) Room Air I & O 08/11/23 07:00 Intake Total 1600 ml Output Total 950 ml Balance 650 ml Capillary Refill : Less Than 3 Seconds General Appearance: Anxious, Chronically ill HEENT: PERRL/EOMI, Normal ENT Inspection Neck: Normal Inspection, Non Tender, Supple Respiratory: Chest Non Tender, No Accessory Muscle Use, No Respiratory Distress Cardiovascular: Regular Rate, Rhythm, No JVD Peripheral Pulses: 1+ Dorsalis Pedis (R); 0 Left Dors-Pedis (L) Gastrointestinal: non tender, soft Extremity: Swelling, Other (left lower extremity wound 3x5 cm anterior johnston edematous tendons and subcutaneous tissues with sloughing/purulent drainage. Multiple areas of skin break down lower extremities distal to knees) Neurologic/Psychiatric: Alert, Oriented x3 Skin: Warm/Dry, Erythema (left lower extremity surrounding wound) Lymphatic: No Adenopathy Results Lab Laboratory Tests 08/10/23 15:18: White Blood Count 18.8H, Red Blood Count 4.06L, Hemoglobin 10.0L, Hematocrit 33L , Mean Corpuscular Volume 81, Mean Corpuscular Hemoglobin 25, Mean Corpuscular Hemoglobin Concent 30L, Red Cell Distribution Width 25.6H, Platelet Count 268, Mean Platelet Volume 9.9, Immature Granulocyte % (Auto) 1, Neutrophils (%) (Auto) 93H, Lymphocytes (%) (Auto) 4L, Monocytes (%) (Auto) 2, Eosinophils (%) (Auto) 0, Basophils (%) (Auto) 0, Neutrophils # (Auto) 17.4H, Lymphocytes # (Auto) 0.8L, Monocytes # (Auto) 0.5, Eosinophils # (Auto) 0.0, Basophils # (Auto) 0.0, Immature Granulocyte # (Auto) 0.1, Neutrophils % (Manual) 95, Lymphocytes % (Manual) 3, Monocytes % (Manual) 2, Eosinophils % (Manual) 0, Basophils % (Manual) 0, Band Neutrophils 0, Polychromasia MODERATE, Hypochromasia SLIGHT, Anisocytosis MARKED, Target Cells SLIGHT, Prothrombin Time 11.3L, INR Comment 0.8, Activated Partial Thromboplast Time 20L, Sodium Level 141, Potassium Level 5.1H, Chloride Level 107, Carbon Dioxide Level 26, Anion Gap 8, Blood Urea Nitrogen 33H, Creatinine 1.43H, Estimat Glomerular Filtration Rate 50, BUN/Creatinine Ratio 23, Glucose Level 130H, Lactic Acid Level 1.40, Calcium Level 8.2L, Corrected Calcium 8.7, Total Bilirubin 0.4, Aspartate Amino Transf (AST/SGOT) 21, Alanine Aminotransferase (ALT/SGPT) 31, Alkaline Phosphatase 64, Total Protein 6.6, Albumin 3.4 08/11/23 05:55: White Blood Count 16.2H, Red Blood Count 3.35L, Hemoglobin 8.4L, Hematocrit 27L, Mean Corpuscular Volume 81, Mean Corpuscular Hemoglobin 25, Mean Corpuscular Hemoglobin Concent 31L, Red Cell Distribution Width 25.5H, Platelet Count 217, M kamron Platelet Volume 9.9, Sodium Level 141, Potassium Level 5.2H, Chloride Level 110H, Carbon Dioxide Level 23, Anion Gap 8, Blood Urea Nitrogen 33H, Creatinine 1.34H, Estimat Glomerular Filtration Rate 55, BUN/Creatinine Ratio 25, Glucose Level 90, Calcium Level 8.1L Assessment/Plan Assessment/Plan Assessment/Plan left lower extremity infected wound and soft tissues Chronic peripheral artery disease History of revascularization left lower extremity 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 Patient with wound that is infected and enlarging. I feel this is involving tendons, soft tissue and skin Patient understands risks and benefits and wishes to proceed with left above knee amputation. NPO prior to surgery continue IV antibiotics Give platelets pre-operatively due to aspirin Continue pain control Medicine consulted Above knee amputation scheduled this morning ROHIT MORRISSEY DO 08/11/23 1113: Subjective Subjective/Events-last exam WBC down to 16.2 Left leg still causing pain. No new complaints. Wanting surgery today. Denies n/v fever sweats chills shortness of breath or chest pain. Objective Exam General Appearance: Anxious, Chronically ill HEENT: PERRL/EOMI, Normal ENT Inspection Neck: Normal Inspection, Supple Respiratory: Chest Non Tender, No Accessory Muscle Use, No Respiratory Distress Cardiovascular: Regular Rate, Rhythm, No JVD Gastrointestinal: non tender, soft Extremity: Swelling, Other (left lower extremity wound 3x5 cm anterior johnston edematous tendons and subcutaneous tissues with sloughing/purulent drainage. Multiple areas of skin break down lower extremities distal to knees) Neurologic/Psychiatric: Alert, Oriented x3 Skin: Erythema (left lower extremity surrounding wound), Other (left lower extremity with edema) Lymphatic: No Adenopathy Assessment/Plan Assessment/Plan Assessment/Plan left lower extremity infected wound and soft tissues Chronic peripheral artery disease History of revascularization left lower extremity history of left knee replacement assisted current use antiplatelet. Patient with wound that is infected and enlarging. I feel this is involving tendons, soft tissue and skin Patient understands risks and benefits and wishes to proceed with left above knee amputation. NPO continue IV antibiotics Give platelets pre-operatively due to aspirin/plavix Continue pain control Medicine consulted Left above knee amputation scheduled today Patient had all questions answered. Supervisory-Addendum Brief Verification & Attestation Participated in pt care: history, MDM, physical Personally performed: exam, history, MDM, supervision of care Care discussed with: Medical Student Procedures: n/a Results interpretation: Verified all documentation Verification and Attestation of Medical Student E/M Service A medical student performed and documented this service in my presence. I reviewed and verified all information documented by the medical student and made modifications to such information, when appropriate. I personally performed the physical exam and medical decision making. Rohit Morrissey, Aug 11, 2023,11:18 MAGALIE KHAN Aug 11, 2023 07:40 ROHIT MORRISSEY DO Aug 11, 2023 11:13
[2023-08-11] MEDS: GABAPENTIN 100 MG CAPSULE PO SCH ×3 (10:16→19:30)
[2023-08-11] MEDS: morphine EXTENDED RELEASE 15 MG TABLET PO SCH ×3 (10:16→19:30)
[2023-08-11] MEDS: ASPIRIN enteric coated 81MG TABLET PO SCH (10:16)
[2023-08-11] MEDS ORDERED: NS IV 500 ML 500 ML IV PRN (10:30)
[2023-08-11] MEDS ORDERED: ROCURONIUM 50 MG/5 ML VIAL IV ONE (10:45)
[2023-08-11] MEDS ORDERED: LIDOCAINE PF 2% 5 ML VIAL ONE (10:45)
[2023-08-11] MEDS ORDERED: fentaNYL INJECTION 100 MCG/2 ML VIAL ONE (10:45)
[2023-08-11] MEDS ORDERED: proPOfol INJECTION 200 MG/20 ML VIAL IV ONE (10:45)
[2023-08-11] MEDS ORDERED: SPIR25TA5 PO (11:32)
[2023-08-11] MEDS ORDERED: ACET325T38 PO (11:32)
[2023-08-11] MEDS ORDERED: OXYC1TAB15 PO (11:32)
[2023-08-11] MEDS ORDERED: SULF-221 PO (11:32)
[2023-08-11] MEDS ORDERED: PANT40TA52 PO (11:32)
[2023-08-11] MEDS ORDERED: LOSA25TA41 PO (11:32)
[2023-08-11] MEDS ORDERED: CLOP75TA28 PO (11:32)
[2023-08-11] MEDS ORDERED: FAMO20TA5 PO (11:32)
[2023-08-11] MEDS ORDERED: FERR-74 PO (11:32)
[2023-08-11] MEDS ORDERED: MIDO10TA PO (11:32)
[2023-08-11] MEDS ORDERED: DEXA6TAB PO (11:32)
[2023-08-11] MEDS ORDERED: ATOR80TA76 PO (11:49)
[2023-08-11] MEDS: VANCOMYCIN 1 GM/NS 250 ML IVPB IV SCH ×2 (12:14)
--- NOTE | 2023-08-11 15:41 | Consultation - Hospitalist ---
HPI History of Present Illness: HPI/Chief Complaint Benjamin Shaffer is a 78 year old male with PMH HTN, HLD, CAD, PAD, RA, HFrEF, COPD, tobacco abuse, who presented with lower extremity wound. He was recently admitted with septic shock due to lower extremity wounds. He was transferred to [facility] for surgical intervention for PAD. He was discharged to [facility]. He says there was a small wound on his leg which rapidly increased in size. He denies fevers and chills. He denies chest pain and shortness of breath. He has no other complaints. Source: patient Exam Limitations: no limitations Date Seen 08/11/23 Attending Physician Ramy Ely MD PCP Admitting Physician: José Manuel Morrissey DO Attending Physician: José Manuel Morrissey DO Referring Physician Date of Admission Aug 10, 2023 at 18:03 Home Medications & Allergies Home Medications Reviewed patient Home Medication Reconciliation performed by pharmacy medication reconciliations social service technician and/or nursing. Patients Allergies have been reviewed. Allergies Allergies Coded Allergies Sulfa (Sulfonamide Antibiotics) (Verified Allergy, Mild, GI UPSET, 04/12/23) Past Btdgpmf-Foujee-Rroxzb Hx Patient Social History Tobacco Use?: Yes Tobacco type used: Cigarettes Smoking Status: Current Everyday Smoker Smokeless Tobacco Frequency: Never a User Use of E-Cig and/or Vaping dev: No Use of E-Cig and/or Vaping Santo: Never a User Substance use?: No Alcohol Use?: No Pt feels they are or have been: No Immunizations Up To Date Date of Influenza Vaccine: Jun 12, 2023 First/Initial COVID19 Vaccinat: Never had Second COVID19 Vaccination Kal[place]: Never had Tetanus Booster (TDap): More Than 5 Years Hepatitis A: No Hepatitis B: No Date of Pneumonia Vaccine: Aug 08, 2015 Seasonal Allergies Seasonal Allergies: Yes Current Status Advance Directives: Yes Advance Directive Location: Copy placed in chart Communicates: Verbally Primary Language: Tajik Preferred Spoken Language: Tajik Is interpretation needed?: No Implanted or Applied Medical D: Orthopedic hardware, Stents Past Medical History Surgeries: Abdominal, Bowel Surgery, Cardiac, Coronary Stent, Joint Replacement, Orthopedic, Vascular Surgery Chronic Bronchitis, COPD, Emphysema Currently Using CPAP: No Currently Using BIPAP: No Cardiomyopathy, Chronic Edema/Swelling, Coronary Artery Disease, High Cholesterol, Hypertension, Peripheral Vascular, Valvular Heart Disease Sexually Transmitted Disease: Yes HIV/AIDS: No Kidney Stones, Renal Failure Colitis, Gastroesophageal Reflux, Hemorrhoids, C-Diff Osteoporosis, Arthritis, Rheumatoid Arthritis Hypothyroidsim Loss of Vision: Bilateral Hearing Impairment: Denies Anxiety Eczema, Psoriasis Blood Disorders: Yes (HX ANEMIA) Adverse Reaction/Blood Tranf: No (HAS HAD BLOOD WITH NO REACTION) Family Medical History Patient reports no known family medical history. No Pertinent Family Hx SOCIAL HISTORY: -SMOKING -ETOH -DRUG HE HAS SEVERE PERIPHERAL ARTERY DISEASE, AND HAD PERIPHERAL ANGIOGRAM BY DR. HALL IN NOVEMBER OF THIS YEAR/2022 SHOWING: -MODERATE SIZED INFRA-RENAL ABDOMINAL AORTIC ANEURYSM -SEVERE STENOSIS AT RIGHT COMMON ILIAC ARTERY AT ORIGIN -SEVERE STENOSIS OF LEFT COMMON ILIAC ARTERY AT PROXIMAL PORTION FOLLOWED BY ANEURYSM. -MODERATE TO SEVERE STENOSIS DIFFUSE DISEASE OF LEFT S.F.A. WITH ONE AREA OF ANEURYSMAL DILATION -MODERATE DIFFUSE DISEASED OF RIGHT S.F.A. PT WAS REFERRED TO VASCULAR SURGERY, BUT PT DID NOT FOLLOW UP ADVISED. Review of Systems Constitutional: no symptoms reported Respiratory: no symptoms reported Cardiovascular: no symptoms reported Gastrointestinal: no symptoms reported Physical Exam Physical Exam Vital Signs Vital Signs - First Documented 08/10/23 08/10/23 08/10/23 08/11/23 15:06 18:09 19:26 07:54 Temp 36.8 Pulse 72 Resp 18 B/P (MAP) 115/63 (80) Pulse Ox 98 O2 Delivery Room Air O2 Flow Rate 0.00 FiO2 21 Capillary Refill : Less Than 3 Seconds Height, Weight, BMI Height: 5'9.00" Weight: 142lbs. 8.0oz. 64.365501sk; 26.23 BMI Method:Estimated General Appearance: No Apparent Distress, Chronically ill, Thin HEENT: PERRL/EOMI, Pharynx Normal Neck: Normal Inspection, Supple Respiratory: Lungs Clear, Normal Breath Sounds, No Respiratory Distress Cardiovascular: Regular Rate, Rhythm, No Murmur Gastrointestinal: Normal Bowel Sounds, Non Tender, Soft Extremity: Inflammation, Swelling Neurologic/Psychiatric: Alert, Normal Mood/Affect Skin: Erythema, Other (bilateral lower extremity skin sloughing with left johnston wound covered with dressing) Results Results/Procedures Labs Laboratory Tests 08/10/23 15:18 08/11/23 05:55 Patient resulted labs reviewed. Imaging: Reviewed Imaging Report Assessment/Plan Assessment and Plan Assess & Plan/Chief Complaint PAD Wound infection Arterial insufficiency ulcer Surgery primary Planning for AKA left leg today NPO Vanc and Zosyn Pain regimen HTN HLD CAD COPD Tobacco abuse Poor prognosis Debility Resume home meds when able DVT prophylaxis: held for surgery Diagnosis/Problems Diagnosis/Problems (1) Arterial insufficiency with ischemic ulcer Status: Acute (2) Severe peripheral arterial disease Status: Acute (3) Peripheral vascular disease Status: Acute (4) Wound infection Status: Acute (5) Chronic wound of extremity Status: Acute (6) COPD (chronic obstructive pulmonary disease) Status: Acute (7) Essential (primary) hypertension Status: Chronic (8) Hypothyroidism (9) Debility Status: Acute LENO PABON MD Aug 11, 2023 15:41
[2023-08-11] MEDS ORDERED: SEVOFLURANE (ULTANE) 15 ML INHAL SOLN ONE (16:40)
--- NOTE | 2023-08-11 17:13 | Progress Note-Post Operative ---
Post-Operative Progess Note Surgeon (s)/Administrative Specialist (s) Surgeon ROHIT SQUIRES DO Administrative Specialist: na Pre-Operative Diagnosis left leg infected wound, peripheral artery disease Post-Operative Diagnosis same Procedure & Operative Findings Date of Procedure 08/11/23 Procedure Performed/Findings left above knee amputation Anesthesia Type general Estimated Blood Loss Estimated blood loss (mL): minimal Specimens/Packing Specimens Removed left lower extremity ROHIT SQUIRES DO Aug 11, 2023 17:12
--- NOTE | 2023-08-11 17:26 | Anesthesia-General Post-Op ---
General Patient Condition Mental Status/LOC: Same as Preop Cardiovascular: Satisfactory Nausea/Vomiting: Absent Respiratory: Satisfactory Pain: Controlled Complications: Absent Post Op Complications Complications None Follow Up Care/Instructions Patient Instructions None needed. Anesthesia/Patient Condition Patient Condition Patient is doing well, no complaints, stable vital signs, no apparent adverse anesthesia problems. No complications reported per nursing. JAMIE ZIMMERMAN CRNA Aug 11, 2023 17:26
[2023-08-11] MEDS ORDERED: fentaNYL INJECTION 100 MCG/2 ML VIAL IVP ONE (17:30)
[2023-08-11] MEDS ORDERED: morphine INJ 10 MG/ML 1ML (SYR OR VIAL) IVP ONE (17:30)
[2023-08-11] MEDS ORDERED: ONDANSETRON INJECTION 4 MG/2 ML (SDV) IVP PRN (17:30)
[2023-08-11] MEDS ORDERED: MEPERIDINE INJ 50 MG/ML VIAL IVP ONE (17:30)
[2023-08-12 03:22] VITALS: BP 114/65
[2023-08-12] MEDS: morphine INJ 4 MG/ML 1 ML (VIAL/SYRINGE) IVP PRN ×5 (03:25→17:44)
[2023-08-12] MEDS: LACTATED RINGERS 1,000 ML 1,000 ML IV SCH ×2 (03:43→17:27)
[2023-08-12] MEDS: PIPERACILLIN/Tazobactam 4.5 GM in NS (IVPB) 100 ML 100 ML IV SCH ×3 (06:07→20:39)
[2023-08-12] MEDS: LEVOTHYROXINE 150 MCG TABLET PO SCH (06:07)
[2023-08-12 06:15] LABS: HEMATOCRIT 26 % (40-54); HEMOGLOBIN 8.1 g/dL (13.3-17.7); MEAN CORPUSCULAR HEMOGLOBIN 25 pg (25-34); MEAN CORPUSCULAR HGB CONC 31 g/dL (32-36); MEAN CORPUSCULAR VOLUME 81 fL (80-99); MEAN PLATELET VOLUME 9.8 fL (9.0-12.2); PLATELET COUNT 215 10^3/uL (130-400); WHITE BLOOD COUNT 9.6 10^3/uL (4.3-11.0)
[2023-08-12 06:26] LABS: CALCIUM 7.7 MG/DL (8.5-10.1); CREATININE SERUM 1.4 MG/DL (0.60-1.30); POTASSIUM 4.5 MMOL/L (3.6-5.0)
[2023-08-12 07:28] VITALS: BP 150/66
[2023-08-12] MEDS: GABAPENTIN 100 MG CAPSULE PO SCH ×3 (08:14→20:36)
[2023-08-12] MEDS: ASPIRIN enteric coated 81MG TABLET PO SCH (08:14)
[2023-08-12] MEDS: morphine EXTENDED RELEASE 15 MG TABLET PO SCH ×3 (08:14→20:36)
--- NOTE | 2023-08-12 09:25 | Progress Note - Surgery ---
MAGALIE KHAN 08/12/23 0925: Subjective Date Seen by a Provider: Aug 12, 2023 Time Seen by a Provider: 09:00 Subjective/Events-last exam Patient s/p day 1 above knee amputation. He was seen this morning and stated he is in a bit of pain. Discussed with him more frequent pain control dosing. I nformed him his surgery went well. Hgb is 8.1 this morning, down from 10.0 on admission. Besides pain he denies other complaints. Review of Systems General: No Chills, No Night Sweats HEENT: No Head Aches, No Visual Changes Pulmonary: No Dyspnea, No Cough Cardiovascular: No: Chest Pain, Palpitations Gastrointestinal: No: Nausea, Vomiting, Abdominal Pain, Diarrhea Genitourinary: No Dysuria, No Frequency Musculoskeletal: No: neck pain, shoulder pain Neurological: No: Weakness, Confusion Focused Exam Lactate Level 08/10/23 15:18: Lactic Acid Level 1.40 Objective Exam Vital Signs Date Time Temp Pulse Resp B/P (MAP) Pulse Ox O2 Delivery O2 Flow Rate FiO2 08/12/23 07:28 36.8 68 16 150/66 (94) 94 Nasal Cannula 2.00 08/12/23 03:22 36.5 71 20 114/65 (81) 95 Nasal Cannula 2.00 2.00 08/11/23 23:43 36.6 83 20 113/60 (77) 91 Nasal Cannula 2.00 2.00 08/11/23 20:00 94 Room Air 2.00 08/11/23 19:27 Room Air 08/11/23 19:20 36.5 70 20 152/72 (98) 92 Room Air 08/11/23 18:45 Room Air 08/11/23 18:40 36.2 19 161/89 (113) 97 Room Air 08/11/23 18:30 Room Air 08/11/23 18:30 14 152/68 (96) 98 OxyMask 2.00 08/11/23 18:23 36.5 68 14 150/75 94 Nasal Cannula 2.00 08/11/23 18:15 OxyMask 2.00 08/11/23 18:15 14 150/73 (98) 94 OxyMask 2.00 08/11/23 18:00 OxyMask 2.00 08/11/23 18:00 14 154/83 (106) 96 OxyMask 2.00 08/11/23 17:50 14 159/89 (112) 96 OxyMask 2.00 08/11/23 17:40 14 120/92 (101) 97 OxyMask 4.00 08/11/23 17:40 OxyMask 4.00 08/11/23 17:30 14 145/80 (101) 100 OxyMask 4.00 08/11/23 17:25 36.5 16 155/97 (116) 100 OxyMask 4.00 08/11/23 17:25 OxyMask 4.00 08/11/23 15:34 36.3 61 20 159/90 (113) 95 Room Air 08/11/23 15:26 36.3 61 20 159/90 95 Room Air 08/11/23 11:19 36.5 66 20 164/79 (107) 96 Room Air I & O 08/12/23 06:59 Intake Total 2030 ml Output Total 1675 ml Balance 355 ml Capillary Refill : Less Than 3 Seconds General Appearance: No Apparent Distress, WD/WN HEENT: PERRL/EOMI, Normal ENT Inspection Neck: Normal Inspection, Supple Respiratory: Lungs Clear, Normal Breath Sounds, No Accessory Muscle Use Cardiovascular: Regular Rate, Rhythm, No Murmur Peripheral Pulses: 1+ Dorsalis Pedis (R) Gastrointestinal: non tender, soft Extremity: Swelling, Other (Large open wound on the distal anterior left lower leg with exposed edematous tendon and tendon sheath. Purulent drainage was noted. There is surrounding erythema and warmth of the distal left lower leg. Other smaller skin lesions are also noted. Skin integrity is poor and boggy. Arthritic disfigurement of the hands. 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 Norm as Tested Skin: Other (as above) Results Lab Laboratory Tests 08/11/23 19:53: Glucometer 94 08/12/23 05:33: White Blood Count 9.6, Red Blood Count 3.25L, Hemoglobin 8.1L, Hematocrit 26L, Mean Corpuscular Volume 81, Mean Corpuscular Hemoglobin 25, Mean Corpuscular Hemoglobin Concent 31L, Red Cell Distribution Width 25.1H, Platelet Count 215, Mean Platelet Volume 9.8, Sodium Level 139, Potassium Level 4.5, Chloride Level 107, Carbon Dioxide Level 23, Anion Gap 9, Blood Urea Nitrogen 29H, Creatinine 1.40H, Estimat Glomerular Filtration Rate 52, BUN/Creatinine Ratio 21, Glucose Level 111H, Calcium Level 7.7L Microbiology 08/10/23 Blood Culture - Preliminary, Resulted 08/10/23 MRSA Screen - Final, Complete MRSA not isolated Assessment/Plan Assessment/Plan Assessment/Plan History of left above knee amputation Chronic peripheral artery disease History of revascularization left lower extremity history of left knee replacement fdc current use antiplatelet Anemia continue IV antibiotics Continue pain control, consider more frequent dosing to adequately control pain Medicine consulted Left above knee amputation performed yesterday Hgb 8.1 this morning. Monitor, transfuse if <7 ROHIT MORRISSEY DO 08/12/23 1130: Subjective Subjective/Events-last exam Patient doing okay. States pain is a little high, but is expected. Tolerating diet. Denies n/v fever sweats chills shortness of breath or chest pain. Objective Exam General Appearance: No Apparent Distress, Chronically ill HEENT: PERRL/EOMI, Normal ENT Inspection Neck: Normal Inspection, Supple Respiratory: Chest Non Tender, No Accessory Muscle Use, No Respiratory Distress Cardiovascular: Regular Rate, Rhythm, No JVD Gastrointestinal: non tender, soft Extremity: Swelling, Other (Large open wound on the distal anterior left lower leg with exposed edematous tendon and tendon sheath. Purulent drainage was noted. There is surrounding erythema and warmth of the distal left lower leg. Other smaller skin lesions are also noted. Skin integrity is poor and boggy. Arthritic disfigurement of the hands. s/p left above knee amputation ) Neurologic/Psychiatric: Alert, Oriented x3 Skin: Normal Color, Warm/Dry, Other (as above) Lymphatic: No Adenopathy Assessment/Plan Assessment/Plan Assessment/Plan History of left above knee amputation Chronic peripheral artery disease History of revascularization left lower extremity history of left knee replacement fdc current use antiplatelet Anemia s/p left above knee amputation continue IV antibiotics Continue pain control Medicine consulted Left above knee amputation performed yesterday Hgb 8.1 this morning. Monitor Received 1 pack platelets yesterday, plavix held, on ASA Supervisory-Addendum Brief Verification & Attestation Participated in pt care: history, MDM, physical Personally performed: exam, history, MDM, supervision of care Care discussed with: Medical Student Procedures: n/a Results interpretation: Verified all documentation Verification and Attestation of Medical Student E/M Service A medical student performed and documented this service in my presence. I reviewed and verified all information documented by the medical student and made modifications to such information, when appropriate. I personally performed the physical exam and medical decision making. Rohit Morrissey, Aug 12, 2023,11:30 MAGALIE KHAN Aug 12, 2023 09:25 ROHIT MORRISSEY DO Aug 12, 2023 11:30
--- NOTE | 2023-08-12 10:37 | Physical Therapy Evaluation ---
PT Evaluation-General Medical Diagnosis Admission Date Aug 10, 2023 at 18:03 Medical Diagnosis: necrotic wound (L) leg Onset Date: Aug 10, 2023 Therapy Diagnosis Therapy Diagnosis: limited mobility Height/Weight Height (Feet): 5 Height (Inches): 9.00 Weight (Pounds): 142 Weight (Ounces): 8.0 Precautions Precautions/Isolations: Fall Prevention, Standard Precautions Weight Bear Status Right Lower Extremity: Right Weight Bearing/Tolerated Referral Physician: José Manuel Morrissey DO Reason for Referral: Evaluation/Treatment Medical History Pertinent Medical History: Arthritis, CAD, COPD, GERD, HTN, Hypothroidism, PVD, Rheumatoid Arthritis Additional Medical History (L) AKA, angioplast, colostomy, cardiomyopathy, chronic peripheral artery disease, stents and bypass for (L) LE Current History Underwent (L) AKA 08/11/23 Reviewed History: Yes Social History Home: Single Level Current Living Status: Friend Entry Into Home: Stairs With Railing PT Steps Into Home: 4 4 large steps with rise of 8-10 inches. Pt's roommate helps lift him up the steps. Prior Prior Level of Function SCALE: Activities may be completed with or without assistive devices. 4-Casbzcsymw-etqfbem completes the activity by him/herself with no assistance from a helper. 5-Set-up or Clean-up Assistance-helper sets up or cleans up; patient completes activity. [place] assists only prior to or following the activity. 4-Supervision or Touching Assistance-helper provides verbal cues and/or touching/steadying and/or contact guard assistance as patient completes activity. Assistance may be provided throughout the activity or intermittently. 3-Partial/Moderate Assistance-helper does LESS THAN HALF the effort. [place] lifts, holds or supports trunk or limbs, but provides less than half the effort. 2-Substantial/Maximal Assistance-helper does MORE THAN HALF the effort. [place] lifts or holds trunk or limbs and provides more than half the effort. 8-Xrpxfswdq-yvfnmh does ALL the effort. Patient does none of the effort to complete the activity. Or, the assistance of 2 or more helpers is required for the patient to complete the activity. If activity was not attempted, code reason: 7-Patient Refused. 9-Not Applicable-not attempted and the patient did not perform the activity before the current illness, exacerbation or injury. 10-Not Attempted due to Environmental Limitations-(lack of equipment, weather restraints, etc.). 88-Not Attempted due to Medical Conditions or Safety Concerns. Bed Mobility: 6 Transfers (B,C,W/C): 6 Gait: 2 Stairs: 2 Wheelchair Mobility: 5 Indoor Mobility (Ambulation): Needed Some Help Stairs: Dependent Prior Devices Use: Manual wheelchair, Walker Prior Device Use: walker 50% in home, wheelchair 50% in home and 100% in community PT Evaluation-Current Subjective Nursing indicated he has had pain medication in the last hour. He was agreeable to the evaluation. Pt noting (L) LE phantom pain. Pt reports his pain is well managed at this time. Pain Numeric Pain Scale: 7 Location: Left Location Body Site: Thigh Pain Description: Burning, Sharp Comment: Pt rated his pain at 7/10 at rest and 3-4/10 while moving Pt/Family Goals Rehab, then possibly SNU, then home. Objective Patient Orientation: Person, Place, Time, Situation Attachments: Oxygen, IV periwick ROM/Strength ROM Upper Extremities Pt has RA, resulting in limited AROM of the shoulders, elbows, wrists, and hands. ROM Lower Extremities (R) knee is contracted at ~20 degrees. Minimal movement of the (R) toes or ankle. Able to perform supine HS with functional ROM of hip and knee. Strength Upper Extremities 3-/5 (B) Strength Lower Extremities (B) LE 3-/5 Neuromuscular (Tone, Coordination, Reflexes) Intact Sensory Vision: Functional Hearing: Functional Hand Dominance: Right Sensation Right Upper Extremit: Intact Sensation Left Upper Extremity: Intact Sensation Right Lower Extremit: Intact Sensation Left Lower Extremity: Intact Transfers Roll Left to Right (QC): 2 Sit to Lying (QC): 2 Lying to Sitting/Side of Bed(Q: 2 Pt was able to sit edge of bed for 8 minutes and 30 seconds. He was not willing to attempt standing at this time. Gait Does the Patient Walk?: No and Walking Goal IS indicated Mode of Locomotion: Both Anticipated Mode of Locomotion: Wheelchair Wheelchair Training Does the Pt Use a Wheelchair?: Yes Pt's roommate to bring his wheelchair later this weekend. Balance Sitting Static: Normal Sitting Dynamic: Fair Assessment/Needs Pt requires significant coaxing to get up and perform activities. Once up, he was capable of sitting (I) and performed seated knee extension and hip abd/add (R). 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 Sunglasses Goals Time Frame: Aug 26, 2023 Roll Left & Right (QC): 5 Sit to Lying (QC): 5 Lying-Sitting on Side/Bed(QC): 5 Sit to Stand (QC): 5 Chair/Rox-gx-Wzyem Xfer(QC): 5 Does the Patient Walk: No and Walking Goal IS indicated Walk 10 feet (QC): 5 Does the Pt use WC or Scooter?: Yes Wheel 50 feet with 2 turns (QC: 5 Type: Manual PT Plan Problem List Problem List: Activity Tolerance, Functional Strength, Gait, Transfer, Bed Mobi lity Treatment/Plan Treatment Plan: Continue Plan of Care Treatment Plan: Bed Mobility, Concurrent Therapy, Functional Activity Juli, Functional Strength, Gait, Safety, Therapeutic Exercise, Transfers Treatment Duration: Aug 26, 2023 Frequency: 6 times per week Estimated Hrs Per Day: .25 hour per day Patient and/or Family Agrees t: Yes Time Time In: 904 Time Out: 929 DATE: Aug 12, 2023 Total Billed Treatment Time: 25 Total Billed Treatment 1, evmodc 25 ZUHAIR GORDON PT Aug 12, 2023 10:37
[2023-08-12] MEDS ORDERED: TROUGH ORDER-PHARMACY XX NR (11:00)
[2023-08-12 11:24] VITALS: BP 132/71
[2023-08-12] MEDS: VANCOMYCIN 1 GM/NS 250 ML IVPB IV SCH ×2 (12:00)
--- NOTE | 2023-08-12 12:53 | Progress Note - Hospitalist ---
Subjective HPI/CC On Admission Date Seen by Provider: Aug 12, 2023 Time Seen by Provider: 11:10 Benjamin Shaffer is a 78 year old male with PMH HTN, HLD, CAD, PAD, RA, HFrEF, COPD, tobacco abuse, who presented with lower extremity wound. He was recently admitted with septic shock due to lower extremity wounds. He was transferred to [facility] for surgical intervention for PAD. He was discharged to [facility]. He says there was a small wound on his leg which rapidly increased in size. He denies fevers and chills. He denies chest pain and shortness of breath. He has no other complaints. Subjective/Events-last exam He is feeling well. He has no complaints. Focused Exam Lactate Level 08/10/23 15:18: Lactic Acid Level 1.40 Objective Exam Vital Signs Vital Signs Date Time Temp Pulse Resp B/P (MAP) Pulse Ox O2 Delivery O2 Flow Rate FiO2 08/12/23 11:24 37.1 68 16 132/71 (91) 99 Nasal Cannula 2.00 08/10/23 19:26 21 Capillary Refill : Less Than 3 Seconds General Appearance: No Apparent Distress, Chronically ill Respiratory: Lungs Clear, No Respiratory Distress Cardiovascular: Regular Rate, Rhythm, No Murmur Gastrointestinal: Normal Bowel Sounds, Soft Extremity: Other (left AKA with dressing in place) Neurologic/Psychiatric: Alert, Normal Mood/Affect Results/Procedures Lab Laboratory Tests 08/12/23 05:33 Patient resulted labs reviewed. Imaging: Reviewed Imaging Report Assessment/Plan Assessment and Plan Assess & Plan/Chief Complaint PAD Wound infection Arterial insufficiency ulcer Surgery primary s/p left AKA 08/11 Vanc and Zosyn Pain regimen HTN HLD CAD COPD Tobacco abuse Poor prognosis Debility Resume home meds when able DVT prophylaxis: Lovenox when ok with surgery Diagnosis/Problems Diagnosis/Problems (1) Arterial insufficiency with ischemic ulcer Status: Acute (2) Severe peripheral arterial disease Status: Acute (3) Peripheral vascular disease Status: Acute (4) Wound infection Status: Acute (5) Chronic wound of extremity Status: Acute (6) COPD (chronic obstructive pulmonary disease) Status: Acute (7) Essential (primary) hypertension Status: Chronic (8) Hypothyroidism (9) Debility Status: Acute LENO PABON MD Aug 12, 2023 12:53
[2023-08-12 16:39] VITALS: BP 121/69
[2023-08-12 20:17] VITALS: BP 109/58
[2023-08-12 23:13] VITALS: BP 128/56
[2023-08-13] VITALS (8 sets, daily range): BP systolic 92–145; BP diastolic 47–71
[2023-08-13] MEDS: morphine INJ 4 MG/ML 1 ML (VIAL/SYRINGE) IVP PRN ×3 (01:24→07:43)
[2023-08-13] MEDS: LACTATED RINGERS 1,000 ML 1,000 ML IV SCH (03:32)
[2023-08-13 05:34] LABS: HEMATOCRIT 26 % (40-54); HEMOGLOBIN 7.8 g/dL (13.3-17.7); MEAN CORPUSCULAR HEMOGLOBIN 25 pg (25-34); MEAN CORPUSCULAR HGB CONC 31 g/dL (32-36); MEAN CORPUSCULAR VOLUME 81 fL (80-99); PLATELET COUNT 186 10^3/uL (130-400); WHITE BLOOD COUNT 9.6 10^3/uL (4.3-11.0)
[2023-08-13] MEDS: LEVOTHYROXINE 150 MCG TABLET PO SCH (05:45)
[2023-08-13] MEDS: PIPERACILLIN/Tazobactam 4.5 GM in NS (IVPB) 100 ML 100 ML IV SCH ×3 (05:46→21:33)
[2023-08-13 05:58] LABS: CREATININE SERUM 1.32 MG/DL (0.60-1.30); POTASSIUM 4.9 MMOL/L (3.6-5.0)
[2023-08-13] MEDS: GABAPENTIN 100 MG CAPSULE PO SCH ×3 (08:28→21:33)
[2023-08-13] MEDS: ASPIRIN enteric coated 81MG TABLET PO SCH (08:28)
[2023-08-13] MEDS: morphine EXTENDED RELEASE 15 MG TABLET PO SCH ×3 (08:28→21:33)
--- NOTE | 2023-08-13 10:28 | Progress Note - Surgery ---
MAGALIE KHAN 08/13/23 1028: Subjective Date Seen by a Provider: Aug 13, 2023 Time Seen by a Provider: 10:20 Subjective/Events-last exam Patient was seen this morning, resting comfortably. He says his pain isn't terrible unless he moves. Otherwise he has no complaints. His Hgb is at 7.8 this morning down from 8.1 yesterday. Denies nausea, vomiting, constipation, diarrhea, chest pain, shortness of breath, weakness, dizziness. Review of Systems General: No Chills, No Night Sweats HEENT: No Head Aches, No Visual Changes Pulmonary: No Dyspnea, No Cough Cardiovascular: No: Chest Pain, Palpitations Gastrointestinal: No: Nausea, Vomiting, Diarrhea, Constipation Genitourinary: No Dysuria, No Frequency Musculoskeletal: No: neck pain, shoulder pain Neurological: No: Weakness, Incoordination Focused Exam Lactate Level 08/10/23 15:18: Lactic Acid Level 1.40 Objective Exam Vital Signs Date Time Temp Pulse Resp B/P (MAP) Pulse Ox O2 Delivery O2 Flow Rate FiO2 08/13/23 07:49 36.8 75 16 124/69 (87) 94 Room Air 08/13/23 07:31 Room Air 0.00 08/13/23 07:27 99 Nasal Cannula 2.00 08/13/23 03:34 36.3 69 18 145/71 (95) 99 Nasal Cannula 2.00 2.00 08/12/23 23:13 37.1 61 18 128/56 (80) 99 Nasal Cannula 2.00 2.00 08/12/23 22:22 Nasal Cannula 2.00 08/12/23 20:17 37.4 75 18 109/58 (75) 99 Nasal Cannula 2.00 08/12/23 20:00 Room Air 2.00 08/12/23 16:39 36.8 77 19 121/69 (86) 98 Nasal Cannula 2.00 08/12/23 11:24 37.1 68 16 132/71 (91) 99 Nasal Cannula 2.00 08/12/23 10:29 94 Nasal Cannula 2.00 I & O 08/13/23 07:00 Intake Total 3610 ml Output Total 3400 ml Balance 210 ml Capillary Refill : Less Than 3 Seconds General Appearance: No Apparent Distress, Chronically ill HEENT: PERRL/EOMI, Normal ENT Inspection Neck: Normal Inspection, Supple Respiratory: Lungs Clear, No Respiratory Distress Cardiovascular: Regular Rate, Rhythm, No Murmur Peripheral Pulses: 1+ Dorsalis Pedis (R) Gastrointestinal: non tender, soft Extremity: Other (left AKA with dressing in place) Neurologic/Psychiatric: Alert, Normal Mood/Affect Skin: Normal Color, Warm/Dry, Other (as above) Lymphatic: No Adenopathy Results Lab Laboratory Tests 08/12/23 11:11: Vancomycin Level Trough 10.5 08/13/23 05:13: White Blood Count 9.6, Red Blood Count 3.16L, Hemoglobin 7.8L, Hematocrit 26L, Mean Corpuscular Volume 81, Mean Corpuscular Hemoglobin 25, Mean Corpuscular Hemoglobin Concent 31L, Red Cell Distribution Width 24.2H, Platelet Count 186, Mean Platelet Volume 10.0, Sodium Level 139, Potassium Level 4.9, Chloride Level 107, Carbon Dioxide Level 25, Anion Gap 7, Blood Urea Nitrogen 25H, Creatinine 1.32H, Estimat Glomerular Filtration Rate 56, BUN/Creatinine Ratio 19, Glucose Level 79, Calcium Level 8.0L Microbiology 08/10/23 Blood Culture - Preliminary, Resulted 08/10/23 MRSA Screen - Final, Complete MRSA not isolated Assessment/Plan Assessment/Plan Assessment/Plan History of left above knee amputation Chronic peripheral artery disease History of revascularization left lower extremity history of left knee replacement [facility] current use antiplatelet Anemia s/p left above knee amputation continue IV antibiotics Continue pain control Medicine consulted Left above knee amputation performed yesterday Hgb 7.8 this morning. Monitor Received 1 pack platelets yesterday, plavix held, on ROHIT BENEDICT DO 08/14/23 1843: Subjective Subjective/Events-last exam Doing well. Pain okay controlled. Tolerating diet. No new complaints. Objective Exam General Appearance: No Apparent Distress, Chronically ill HEENT: PERRL/EOMI, Normal ENT Inspection Neck: Normal Inspection, Supple Respiratory: Chest Non Tender, No Accessory Muscle Use, No Respiratory Distress Cardiovascular: Regular Rate, Rhythm, No JVD Gastrointestinal: non tender, soft Extremity: Other (left AKA incision c/d/i) Neurologic/Psychiatric: Alert, Oriented x3, Normal Mood/Affect Skin: Normal Color, Warm/Dry Lymphatic: No Adenopathy Assessment/Plan Assessment/Plan Assessment/Plan S/p left above knee amputation Chronic peripheral artery disease History of revascularization left lower extremity history of left knee 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 Monitor Received 1 pack platelets yesterday, plavix held, on ASA Consult prosthetics Supervisory-Addendum Brief Verification & Attestation Participated in pt care: history, MDM, physical Personally performed: exam, history, MDM, supervision of care Care discussed with: Medical Student Procedures: n/a Results interpretation: Verified all documentation Verification and Attestation of Medical Student E/M Service A medical student performed and documented this service in my presence. I reviewed and verified all information documented by the medical student and made modifications to such information, when appropriate. I personally performed the physical exam and medical decision making. Rohit Morrissey, Aug 13, 2023,17:23 MAGALIE KHAN Aug 13, 2023 10:28 ROHIT MORRISSEY DO Aug 14, 2023 18:43
[2023-08-13] MEDS ORDERED: VANCOMYCIN 1250 MG/NS 250 ML PREMIX IV SCH (12:00)
--- NOTE | 2023-08-13 13:30 | Progress Note - Hospitalist ---
Subjective HPI/CC On Admission Date Seen by Provider: Aug 13, 2023 Time Seen by Provider: 11:20 Benjamin Shaffer is a 78 year old male with PMH HTN, HLD, CAD, PAD, RA, HFrEF, COPD, tobacco abuse, who presented with lower extremity wound. He was recently admitted with septic shock due to lower extremity wounds. He was transferred to [facility] for surgical intervention for PAD. He was discharged to [facility]. He says there was a small wound on his leg which rapidly increased in size. He denies fevers and chills. He denies chest pain and shortness of breath. He has no other complaints. Subjective/Events-last exam He is feeling well. He has been urinating a lot. He is eating and drinking well. Focused Exam Lactate Level 08/10/23 15:18: Lactic Acid Level 1.40 Objective Exam Vital Signs Vital Signs Date Time Temp Pulse Resp B/P (MAP) Pulse Ox O2 Delivery O2 Flow Rate FiO2 08/13/23 11:43 37.2 83 16 112/55 (74) 95 Nasal Cannula 0.50 08/10/23 19:26 21 Capillary Refill : Less Than 3 Seconds General Appearance: No Apparent Distress, Chronically ill Respiratory: Lungs Clear, No Respiratory Distress Cardiovascular: Regular Rate, Rhythm, No Murmur Gastrointestinal: Normal Bowel Sounds, Soft Extremity: Non Tender, Other (left AKA with dressing in place) Neurologic/Psychiatric: Alert, Normal Mood/Affect Results/Procedures Lab Laboratory Tests 08/13/23 05:13 Patient resulted labs reviewed. Imaging: Reviewed Imaging Report Assessment/Plan Assessment and Plan Assess & Plan/Chief Complaint PAD Wound infection Arterial insufficiency ulcer Surgery primary s/p left AKA 08/11 Stop IV fluids Stop Vancomycin Continue Zosyn Pain regimen HTN HLD CAD COPD Tobacco abuse Poor prognosis Debility Resume home meds when able DVT prophylaxis: Lovenox when ok with surgery Diagnosis/Problems Diagnosis/Problems (1) Arterial insufficiency with ischemic ulcer Status: Acute (2) Severe peripheral arterial disease Status: Acute (3) Peripheral vascular disease Status: Acute (4) Wound infection Status: Acute (5) Chronic wound of extremity Status: Acute (6) COPD (chronic obstructive pulmonary disease) Status: Acute (7) Essential (primary) hypertension Status: Chronic (8) Hypothyroidism (9) Debility Status: Acute LENO PABON MD Aug 13, 2023 13:30
[2023-08-13] MEDS: RT-Ipratropium/Albuterol NEB 3 ML VIAL INH SCH (21:39)
[2023-08-14] MEDS: morphine INJ 4 MG/ML 1 ML (VIAL/SYRINGE) IVP PRN ×3 (00:04→23:02)
[2023-08-14 03:52] VITALS: BP 129/77
[2023-08-14 05:36] LABS: HEMATOCRIT 27 % (40-54); HEMOGLOBIN 8.4 g/dL (13.3-17.7); MEAN CORPUSCULAR HEMOGLOBIN 25 pg (25-34); MEAN CORPUSCULAR HGB CONC 31 g/dL (32-36); MEAN CORPUSCULAR VOLUME 81 fL (80-99); MEAN PLATELET VOLUME 9.1 fL (9.0-12.2); PLATELET COUNT 173 10^3/uL (130-400); WHITE BLOOD COUNT 9.5 10^3/uL (4.3-11.0)
[2023-08-14 05:45] LABS: CALCIUM 8.1 MG/DL (8.5-10.1); CREATININE SERUM 1.34 MG/DL (0.60-1.30); POTASSIUM 4.6 MMOL/L (3.6-5.0)
[2023-08-14] MEDS: PIPERACILLIN/Tazobactam 4.5 GM in NS (IVPB) 100 ML 100 ML IV SCH ×3 (05:49→23:02)
[2023-08-14] MEDS: LEVOTHYROXINE 150 MCG TABLET PO SCH (05:49)
[2023-08-14 07:23] VITALS: BP 122/64
[2023-08-14] MEDS: GABAPENTIN 100 MG CAPSULE PO SCH ×3 (08:24→19:52)
[2023-08-14] MEDS: morphine EXTENDED RELEASE 15 MG TABLET PO SCH ×3 (08:24→19:52)
[2023-08-14] MEDS: ASPIRIN enteric coated 81MG TABLET PO SCH (08:24)
--- NOTE | 2023-08-14 09:42 | Physical Therapy Daily Note ---
PT Daily Note-Current Subjective Patient agrees to therapy. Pain Section J - Health Conditions 1. Rarely or not at all 2. Occasionally 3. Frequently 4. Almost constantly 8. Unable to answer Pain Effect on Sleep: 2 Pain Interference with Therapy: 2 Pain Interference w/Day-to-Day: 2 Mental Status Attachments: IV Transfers SCALE: Activities may be completed with or without assistive devices. 7-Hchxkfzzhv-jjxqtzm completes the activity by him/herself with no assistance from a helper. 5-Set-up or Clean-up Assistance-helper sets up or cleans up; patient completes activity. [place] assists only prior to or following the activity. 4-Supervision or Touching Assistance-helper provides verbal cues and/or touching/steadying and/or contact guard assistance as patient completes activity. Assistance may be provided throughout the activity or intermittently. 3-Partial/Moderate Assistance-helper does LESS THAN HALF the effort. [place] lifts, holds or supports trunk or limbs, but provides less than half the effort. 2-Substantial/Maximal Assistance-helper does MORE THAN HALF the effort. [place] lifts or holds trunk or limbs and provides more than half the effort. 1-Wxucvzder-ainxnt does ALL the effort. Patient does none of the effort to complete the activity. Or, the assistance of 2 or more helpers is required for the patient to complete the activity. If activity was not attempted, code reason: 7-Patient Refused. 9-Not Applicable-not attempted and the patient did not perform the activity before the current illness, exacerbation or injury. 10-Not Attempted due to Environmental Limitations-(lack of equipment, weather restraints, etc.). 88-Not Attempted due to Medical Conditions or Safety Concerns. Roll Left & Right (QC): 3 Lying to Sitting/Side of Bed(Q: 3 Sit to Stand (QC): 7 Chair/Ifd-dg-Udhdn Xfer(QC): 7 Weight Bearing Right Lower Extremity: Right Weight Bearing/Tolerated Assessment Patient performed bed mobility to EOB with mod assist and adamantly declined to attempt stand or to perform SPT bed to recliner. Patient also declined exercise. PT to increase activity as tolerated/allowed by patient. Patient left sitting EOB with breakfast in situ. PT Consulting Systems Engineer Goals Consulting Systems Engineer Goals PT Alf Goals Time Frame: Aug 26, 2023 Roll Left & Right (QC): 5 Sit to Lying (QC): 5 Lying-Sitting on Side/Bed(QC): 5 Sit to Stand (QC): 5 Chair/Ujj-ey-Avnqj Xfer(QC): 5 Does the Patient Walk: No and Walking Goal IS indicated Walk 10 feet (QC): 5 Does the Pt use WC or Scooter?: Yes Wheel 50 feet with 2 turns (QC: 5 Type: Manual PT Plan Treatment/Plan Treatment Plan: Continue Plan of Care Treatment Plan: Bed Mobility, Concurrent Therapy, Functional Activity Juli, Functional Strength, Gait, Safety, Therapeutic Exercise, Transfers Treatment Duration: Aug 26, 2023 Frequency: 5 times per week Estimated Hrs Per Day: .25 hour per day Patient and/or Family Agrees t: Yes Time Time In: 820 Time Out: 834 DATE: Aug 14, 2023 Total Billed Treatment Time: 14 Total Billed Treatment 1 visit FA 14 min LIZET SARMIENTO PT Aug 14, 2023 09:42
--- NOTE | 2023-08-14 09:46 | Occupational Therapy Eval ---
OT Evaluation-General/PLF Medical Diagnosis Admission Date Aug 10, 2023 at 18:03 Medical Diagnosis: necrotic wound (L) leg Onset Date: Aug 10, 2023 Therapy Diagnosis Therapy Diagnosis: weakness Height/Weight Height (Feet): 5 Height (Inches): 9.00 Weight (Pounds): 142 Weight (Ounces): 8.0 Precautions Precautions/Isolations: Fall Prevention, Standard Precautions Referral Physician: José Manuel Morrissey DO Medical History Pertinent Medical History: Arthritis, CAD, COPD, GERD, HTN, Hypothroidism, PVD, Rheumatoid Arthritis Additional Medical History History of left above knee amputation Chronic peripheral artery disease History of revascularization left lower extremity history of left knee replacement terminal gauger current use antiplatelet Anemia Social History Home: Snf Entry Into Home: Stairs With Railing ADL-Prior Level of Function SCALE: Activities may be completed with or without assistive devices. 0-Rhqbssiubn-dmbbjtw completes the activity by him/herself with no assistance from a helper. 5-Set-up or Clean-up Assistance-helper sets up or cleans up; patient completes activity. [place] assists only prior to or following the activity. 4-Supervision or Touching Assistance-helper provides verbal cues and/or t ouching/steadying and/or contact guard assistance as patient completes activity. Assistance may be provided throughout the activity or intermittently. 3-Partial/Moderate Assistance-helper does LESS THAN HALF the effort. [place] lifts, holds or supports trunk or limbs, but provides less than half the effort. 2-Substantial/Maximal Assistance-helper does MORE THAN HALF the effort. [place] lifts or holds trunk or limbs and provides more than half the effort. 4-Irktqywej-llixcu does ALL the effort. Patient does none of the effort to complete the activity. Or, the assistance of 2 or more helpers is required for the patient to complete the activity. If activity was not attempted, code reason: 7-Patient Refused. 9-Not Applicable-not attempted and the patient did not perform the activity before the current illness, exacerbation or injury. 10-Not Attempted due to Environmental Limitations-(lack of equipment, weather restraints, etc.). 88-Not Attempted due to Medical Conditions or Safety Concerns. ADL PLOF Comments Assistance at [facility] Self Care: Needed Some Help Functional Cognition: Needed Some Help DME/Equipment: Bath Chair, Bedside Commode, Grab Bars, Shower, Toilet/[address] Self: No OT Current Status Subjective Agreeable to sit EOB only. Pain Numeric Pain Scale: 5-Moderate Pain Pain Description: Chronic Mental Status/Objective Patient Orientation: Person, Place, Time, Situation Attachments: IV Current Glasses/Contacts: No Hearing Aids: No Dentures/Partials: No Hand Dominance: Right Upper Extremity ROM Joint deformity of hands Upper Extremity Coordination FAIR- Upper Extremity Strength +2/5 grossly ADL-Treatment ADL-Current Required assist w/ cutting food and set up, Moderate assistance from supoine to sit EOB Eating (QC): 5 Oral Hygiene (QC): 5 Shower/Bathe Self (QC): 7 Upper Body Dressing (QC): 7 Lower Body Dressing (QC): 7 (disposable pull up brief on) On/Off Footwear (QC): 3 (right foot only sock) Toileting Hygiene (QC): 2 Education OT Patient Education: Correct positioning, Exercise program, Modified ADL techniques, Progress toward Goal/Update tx plan, Purpose of tx/functional activities, Reviewed precautions, Safety issues, Transfer techniques Teaching Recipient: Patient Teaching Methods: Demonstration, Discussion Response to Teaching: Verbalize Understanding, Reinforcement Needed OT Longterm Goals Shuttle Buggy Operator Goals Eating (QC): 5 Oral Hygiene (QC): 5 Toileting Hygiene (QC): 3 Shower/Bathe Self (QC): 2 Upper Body Dressing (QC): 3 Lower Body Dressing (QC): 2 On/Off Footwear (QC): 3 1=Demonstrate adherence to instructed precautions during ADL tasks. 2=Patient will verbalize/demonstrate understanding of assistive devices/modifications for ADL. 3=Patient will improve strength/tolerance for activity to enable patient to perform ADL's. OT Education/Plan Problem List/Assessment Assessment: Decreased Activ Tolerance, Decreased Safety Aware, Decreased UE Strength, Dependent Transfers, Impaired Bed Mobility, Impaired Coordination, Impaired Funct Balance, Impaired Self-Care Skills Discharge Recommendations Plan/Recommendations: Continue POC Therapy Discharge Recommendati: Post Acute OT Treatment Plan/Plan of Care Treatment,Training & Education: Yes Patient would benefit from OT for education, treatment and training to promote independence in ADL's, mobility, safety and/or upper extremity function for ADL's. Plan of Care: ADL Retraining, Functional Mobility, UE Funct Exercise/Act Treatment Duration: Aug 25, 2023 Frequency: 3 times per week (3-5 times per week) Rehab Potential: Good Time Start Time: 08:27 Stop Time: 08:46 DATE: Aug 25, 2023 Total Time Billed (hr/min): 19 Billed Treatment Time EVM 19 min CATA MALONE OT Aug 14, 2023 09:46
[2023-08-14] MEDS ORDERED: LOPERAMIDE 2 MG CAPSULE PO PRN (10:00)
--- NOTE | 2023-08-14 10:05 | Progress Note - Hospitalist ---
Subjective HPI/CC On Admission Date Seen by Provider: Aug 14, 2023 Benjamin Shaffer is a 78 year old male with PMH HTN, HLD, CAD, PAD, RA, HFrEF, COPD, tobacco abuse, who presented with lower extremity wound. He was recently admitted with septic shock due to lower extremity wounds. He was transferred to [facility] for surgical intervention for PAD. He was discharged to [facility]. He says there was a small wound on his leg which rapidly increased in size. He denies fevers and chills. He denies chest pain and shortness of breath. He has no other complaints. Subjective/Events-last exam Pt reports having pain in his leg. Appears uncomfortable. No other complaints. RN reports diarrhea. Objective Exam Vital Signs Vital Signs Date Time Temp Pulse Resp B/P (MAP) Pulse Ox O2 Delivery O2 Flow Rate FiO2 08/14/23 08:34 93 Room Air 08/14/23 07:23 36.6 68 16 122/64 (83) 08/14/23 03:52 0.00 0.00 08/13/23 16:36 24 Capillary Refill : Less Than 3 Seconds General Appearance: No Apparent Distress, Chronically ill, Other (appears uncomfortable) Respiratory: Lungs Clear, No Respiratory Distress Cardiovascular: Regular Rate, Rhythm, No Murmur Extremity: Other (sp left AKA) Neurologic/Psychiatric: Alert, Oriented x3 Results/Procedures Lab Laboratory Tests 08/14/23 05:21 Patient resulted labs reviewed. Imaging: Reviewed Imaging Report Assessment/Plan Assessment and Plan Assess & Plan/Chief Complaint PAD Wound infection Arterial insufficiency ulcer Surgery primary s/p left AKA 08/11 Continue Zosyn Pain regimen Add imodium for diarrhea HTN HLD CAD COPD Tobacco abuse Poor prognosis Debility Resume home meds as able DVT prophylaxis: Lovenox when ok with surgery NOLBERTO GONZALEZ MD Aug 14, 2023 10:05
[2023-08-14] MEDS: FLUTICASONE/VILANTEROL 200/25 MCG (14 DOSES) IH SCH (10:14)
[2023-08-14] MEDS: RT-Ipratropium/Albuterol NEB 3 ML VIAL INH SCH ×2 (10:14→18:56)
[2023-08-14 11:59] VITALS: BP 126/66
[2023-08-14] MEDS: CLOPIDOGREL 75 MG TABLET PO SCH (13:03)
[2023-08-14] MEDS: LACTOBACILLUS ACIDOPHILUS (PROBIOTIC) CAPSULE PO SCH ×2 (13:03→18:03)
[2023-08-14] MEDS: MIDODRINE 10 MG TABLET PO SCH ×2 (13:03→19:52)
[2023-08-14] MEDS: PANTOPRAZOLE 40 MG TABLET PO SCH (13:05)
--- NOTE | 2023-08-14 15:10 | Progress Note - Surgery ---
JAYESH JONES 08/14/23 1510: Subjective Date Seen by a Provider: Aug 14, 2023 Time Seen by a Provider: 12:15 Subjective/Events-last exam Patient is laying in bed with pain controlled. Wound is clean, dry, and intact. Wound is redressed and wrapped. No nausea or vomiting. Review of Systems General: No Chills, No Night Sweats HEENT: No Head Aches, No Visual Changes Pulmonary: No Dyspnea, No Cough Cardiovascular: No: Chest Pain, Palpitations Gastrointestinal: No: Nausea, Vomiting Genitourinary: No Dysuria, No Frequency Musculoskeletal: No: neck pain, shoulder pain Neurological: No: Numbness, Confusion Objective Exam Vital Signs Date Time Temp Pulse Resp B/P (MAP) Pulse Ox O2 Delivery O2 Flow Rate FiO2 08/14/23 11:59 36.6 81 17 126/66 (86) 93 Room Air 08/14/23 10:14 95 Room Air 08/14/23 08:34 93 Room Air 08/14/23 07:23 36.6 68 16 122/64 (83) 93 Room Air 08/14/23 03:52 36.7 73 20 129/77 (94) 95 Room Air 0.00 0.00 08/13/23 23:46 37.0 86 20 119/68 (85) 95 Nasal Cannula 1.00 1.00 08/13/23 21:43 Nasal Cannula 1.00 08/13/23 19:52 36.3 79 20 114/69 (84) 95 Nasal Cannula 1.00 08/13/23 19:45 Room Air 1.00 08/13/23 16:36 36.0 74 97 24 08/13/23 16:20 128/59 (82) 08/13/23 16:06 36.0 74 20 92/47 (62) 97 Nasal Cannula 1.00 I & O 08/14/23 06:59 Intake Total 1710 ml Output Total 1300 ml Balance 410 ml Capillary Refill : Less Than 3 Seconds General Appearance: No Apparent Distress, Chronically ill, Other (appears uncomfortable) HEENT: PERRL/EOMI, Normal ENT Inspection Neck: Normal Inspection, Non Tender, Supple Respiratory: Lungs Clear, No Respiratory Distress Cardiovascular: Regular Rate, Rhythm, No Murmur Peripheral Pulses: 1+ Dorsalis Pedis (R) Gastrointestinal: non tender, soft Extremity: Non Tender, No Calf Tenderness, No Pedal Edema, Other (Left AKA. Wound is clean, dry, intact. ) Neurologic/Psychiatric: Alert, Oriented x3 Skin: Normal Color, Warm/Dry, Other (as above) Lymphatic: No Adenopathy Results Lab Laboratory Tests 08/14/23 05:21: White Blood Count 9.5, Red Blood Count 3.33L, Hemoglobin 8.4L, Hematocrit 27L, Mean Corpuscular Volume 81, Mean Corpuscular Hemoglobin 25, Mean Corpuscular Hemoglobin Concent 31L, Red Cell Distribution Width 24.1H, Platelet Count 173, Mean Platelet Volume 9.1, Sodium Level 139, Potassium Level 4.6, Chloride Level 108H, Carbon Dioxide Level 23, Anion Gap 8, Blood Urea Nitrogen 22H, Creatinine 1.34H, Estimat Glomerular Filtration Rate 55, BUN/Creatinine Ratio 16, Glucose Level 89, Calcium Level 8.1L 08/14/23 12:14: Lab Scanned Report Transfusion Reaction Form Microbiology 08/10/23 Blood Culture - Preliminary, Resulted 08/10/23 MRSA Screen - Final, Complete MRSA not isolated Assessment/Plan Assessment/Plan Assessment/Plan History of left above knee amputation Chronic peripheral artery disease History of revascularization left lower extremity history of left knee replacement terminal 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 Hgb 8.4 this morning. Monitor Plavix held, on ASA JOSÉ MANUEL MORRISSEY William DO 08/14/23 2718: Subjective Subjective/Events-last exam Doing well. Pain controlled. No issues. Denies n/v fever sweats chills shortness of breath or chest pain. Objective Exam General Appearance: No Apparent Distress, Chronically ill HEENT: PERRL/EOMI, Normal ENT Inspection Neck: Normal Inspection, Non Tender, Supple Respiratory: Chest Non Tender, No Accessory Muscle Use, No Respiratory Distress Cardiovascular: Regular Rate, Rhythm, No JVD Gastrointestinal: non tender, soft Extremity: Non Tender, No Calf Tenderness, Other (Left AKA. Wound is clean, dry, intact. ) Neurologic/Psychiatric: Alert, Oriented x3 Skin: Normal Color, Other (as above) Lymphatic: No Adenopathy Assessment/Plan Assessment/Plan Assessment/Plan S/p left above knee amputation Chronic peripheral artery disease History of revascularization left lower extremity history of left knee replacement terminal superintendent current use antiplatelet Anemia Continue pain control Medicine consulted [place] and wrap left aka. Hgb 8.4 this morning. Monitor Plavix held, can restart, is on ASA Prosthetics for user support analyst IPR eval Supervisory-Addendum Brief Verification & Attestation Participated in pt care: history, MDM, physical Personally performed: exam, history, MDM, supervision of care Care discussed with: Medical Student Procedures: n/a Results interpretation: Verified all documentation Verification and Attestation of Medical Student E/M Service A medical student performed and documented this service in my presence. I reviewed and verified all information documented by the medical student and made modifications to such information, when appropriate. I personally performed the physical exam and medical decision making. José Manuel Morrissey, Aug 14, 2023,18:47 JAYESH JONES Aug 14, 2023 15:10 JOSÉ MANUEL MORRISSEY DO Aug 14, 2023 18:48
[2023-08-14 16:33] VITALS: BP 94/54
[2023-08-14 19:16] VITALS: BP 110/56
[2023-08-14 23:03] VITALS: BP 121/63
[2023-08-15] MEDS: morphine INJ 4 MG/ML 1 ML (VIAL/SYRINGE) IVP PRN ×3 (03:32→21:03)
--- NOTE | 2023-08-15 04:09 | OPERATIVE REPORT ---
DATE OF SERVICE: 08/11/2023 PREOPERATIVE DIAGNOSES: Left leg infected wound, peripheral arterial disease. POSTOPERATIVE DIAGNOSES: Left leg infected wound, peripheral arterial disease. PROCEDURE: Left above-knee amputation. SURGEON: Rohit Morrissey DO ANESTHESIA: General. ESTIMATED BLOOD LOSS: Minimal. COMPLICATIONS: None. INDICATIONS: The patient is a 78-year-old male with chronic left leg wound and also with peripheral arterial disease. He has had revascularization, but the wound to his left lateral extremity has continued to increase in size, fairly rapidly and the patient having some purulent drainage from this area as well. I think this was more extensive. We discussed options and the patient wished to proceed with left above-knee amputation. Consent was signed in chart. DESCRIPTION OF PROCEDURE: The patient was taken to the operating suite where he was prepped and draped in sterile fashion. Timeout was performed. A fishmouth incision was made just above the knee circumferentially. Cautery was used to dissect down through the skin and subcutaneous tissues. The muscles were then continually divided until the left femur was encountered. Elevator was used to removal of tissue off of the femur and was then able to be dissected around more proximally. The bone saw was then used to cut the femur and also shave. A rasp was used to file it. Continued using cautery, the muscles were then continually divided, but when the vascular bundle was encountered this was clamped and tied off with 0 silk sutures. The nerve was also grasped and retracted and shortened and tied off and cut. The remainder of the muscles were then continually divided until both flaps were created and the distal leg was completely removed. The wound was then irrigated with copious amounts of irrigation. Hemostasis was achieved. The subcutaneous tissues were then reapproximated using 3-0 silk suture. The skin was then closed using 0 Prolene in vertical mattress fashion. Skin was then closed with анна. The area was washed and dried and sterile bandage was applied. The patient tolerated the procedure well without any complications, taken to recovery room in stable condition. Job ID: [id number] DocumentID: [id number] Dictated Date: 08/14/2023 20:54:34 Quality Technician Date: 08/15/2023 04:07:00 Dictated By: ROHIT MORRISSEY DO
[2023-08-15 04:15] VITALS: BP 108/56
[2023-08-15] MEDS: PIPERACILLIN/Tazobactam 4.5 GM in NS (IVPB) 100 ML 100 ML IV SCH ×2 (05:33→14:15)
[2023-08-15] MEDS: LEVOTHYROXINE 150 MCG TABLET PO SCH (05:33)
[2023-08-15 05:37] LABS: HEMATOCRIT 30 % (40-54); HEMOGLOBIN 8.8 g/dL (13.3-17.7); MEAN CORPUSCULAR HEMOGLOBIN 25 pg (25-34); MEAN CORPUSCULAR HGB CONC 29 g/dL (32-36); MEAN CORPUSCULAR VOLUME 85 fL (80-99); MEAN PLATELET VOLUME 9.8 fL (9.0-12.2); PLATELET COUNT 181 10^3/uL (130-400); WHITE BLOOD COUNT 10.6 10^3/uL (4.3-11.0)
--- NOTE | 2023-08-15 06:46 | Progress Note - Surgery ---
MAGALIE KHAN 08/15/23 0646: Subjective Date Seen by a Provider: Aug 15, 2023 Time Seen by a Provider: 06:45 Subjective/Events-last exam Patient seen this morning, resting comfortably. Says pain is 8/10 and and denies any complaints. Dressing was in place on left amputated leg. Review of Systems General: No Chills, No Fatigue HEENT: No Head Aches, No Visual Changes Pulmonary: No Dyspnea, No Pleuritic Chest Pain Cardiovascular: No: Chest Pain, Palpitations Gastrointestinal: No: Nausea, Vomiting, Diarrhea, Constipation Genitourinary: No Dysuria, No Frequency Musculoskeletal: No: neck pain, shoulder pain Neurological: No: Weakness, Confusion Objective Exam Vital Signs Date Time Temp Pulse Resp B/P (MAP) Pulse Ox O2 Delivery O2 Flow Rate FiO2 08/15/23 04:15 36.8 78 18 108/56 (73) 95 Nasal Cannula 1.50 08/14/23 23:03 37.3 75 18 121/63 (82) 95 Nasal Cannula 1.50 08/14/23 20:03 Room Air 08/14/23 19:16 37.8 84 18 110/56 (74) 94 Room Air 08/14/23 18:57 90 Room Air 08/14/23 16:33 37.7 85 16 94/54 (67) 98 Room Air 08/14/23 11:59 36.6 81 17 126/66 (86) 93 Room Air 08/14/23 10:14 95 Room Air 08/14/23 08:34 93 Room Air 08/14/23 07:23 36.6 68 16 122/64 (83) 93 Room Air I & O 08/15/23 06:59 Intake Total 900 ml Output Total 400 ml Balance 500 ml Capillary Refill : Less Than 3 Seconds General Appearance: No Apparent Distress, Chronically ill HEENT: PERRL/EOMI, Normal ENT Inspection Neck: Normal Inspection, Non Tender, Supple Respiratory: Chest Non Tender, No Accessory Muscle Use, No Respiratory Distress Cardiovascular: Regular Rate, Rhythm, No JVD Peripheral Pulses: 1+ Dorsalis Pedis (R) Gastrointestinal: non tender, soft Extremity: Non Tender, No Calf Tenderness, Other (Left AKA. Wound is clean, dry, intact. ) Neurologic/Psychiatric: Alert, Oriented x3 Skin: Normal Color, Other (as above) Lymphatic: No Adenopathy Results Lab Laboratory Tests 08/14/23 12:14: Lab Scanned Report Transfusion Reaction Form 08/15/23 05:21: White Blood Count 10.6, Red Blood Count 3.56L, Hemoglobin 8.8L, Hematocrit 30L, Mean Corpuscular Volume 85, Mean Corpuscular Hemoglobin 25, Mean Corpuscular Hemoglobin Concent 29L, Red Cell Distribution Width 24.6H, Platelet Count 181, Mean Platelet Volume 9.8 Microbiology 08/10/23 Blood Culture - Preliminary, Resulted 08/10/23 MRSA Screen - Final, Complete MRSA not isolated Assessment/Plan Assessment/Plan Assessment/Plan S/p left above knee amputation Chronic peripheral artery disease History of revascularization left lower extremity history of left knee replacement 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 Continues to be stable. Monitor Plavix held and ASA restarted Prosthetics for financial controller IPR eval ROHIT MORRISSEY DO 08/15/232035: Subjective Subjective/Events-last exam Pain still high but tolerable. Tolerating diet. Denies any new complaints. Denies n/v fever sweats chills shortness of breath or chest pain. Objective Exam General Appearance: No Apparent Distress, Chronically ill HEENT: PERRL/EOMI, Normal ENT Inspection Neck: Non Tender, Supple Respiratory: Chest Non Tender, No Accessory Muscle Use, No Respiratory Distress Cardiovascular: Regular Rate, Rhythm, No JVD Gastrointestinal: non tender, soft Extremity: Non Tender, No Calf Tenderness, Other (Left AKA. Wound is clean, dry, intact. Sligh bruising around incision) Neurologic/Psychiatric: Alert, Oriented x3 Skin: Normal Color Lymphatic: No Adenopathy Assessment/Plan Assessment/Plan Assessment/Plan S/p left above knee amputation Chronic peripheral artery disease History of revascularization left lower extremity history of left knee replacement fpc current use 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 Continues to be stable. Monitor Plavix started and ASA Prosthetics consult for financial controller IPR eval declined but discussed needs and awaiting final decision. Supervisory-Addendum Brief Verification & Attestation Participated in pt care: history, MDM, physical Personally performed: exam, history, MDM, supervision of care Care discussed with: Medical Student Procedures: n/a Results interpretation: Verified all documentation Verification and Attestation of Medical Student E/M Service A medical student performed and documented this service in my presence. I reviewed and verified all information documented by the medical student and made modifications to such information, when appropriate. I personally performed the physical exam and medical decision making. Rohit Morrissey, Aug 15, 2023,20:36 MAGALIE KHAN Aug 15, 2023 06:46 ROHIT MORRISSEY DO Aug 15, 2023 20:36
[2023-08-15] MEDS: RT-Ipratropium/Albuterol NEB 3 ML VIAL INH SCH ×2 (07:07→21:51)
[2023-08-15] MEDS: FLUTICASONE/VILANTEROL 200/25 MCG (14 DOSES) IH SCH (07:07)
[2023-08-15 07:56] VITALS: BP 126/69
[2023-08-15 08:04] LABS: CREATININE SERUM 1.42 MG/DL (0.60-1.30); POTASSIUM 4.9 MMOL/L (3.6-5.0)
[2023-08-15] MEDS: PANTOPRAZOLE 40 MG TABLET PO SCH ×2 (09:30→14:19)
--- NOTE | 2023-08-15 09:49 | Physical Therapy Daily Note ---
PT Daily Note-Current Subjective Patient agrees to therapy. Pain Section J - Health Conditions 1. Rarely or not at all 2. Occasionally 3. Frequently 4. Almost constantly 8. Unable to answer Pain Effect on Sleep: 2 Pain Interference with Therapy: 2 Pain Interference w/Day-to-Day: 2 Mental Status Patient Orientation: Normal For Age Attachments: IV Transfers SCALE: Activities may be completed with or without assistive devices. 8-Snsqtpwdjf-nngsplc completes the activity by him/herself with no assistance from a helper. 5-Set-up or Clean-up Assistance-helper sets up or cleans up; patient completes activity. [place] assists only prior to or following the activity. 4-Supervision or Touching Assistance-helper provides verbal cues and/or touching/steadying and/or contact guard assistance as patient completes activity. Assistance may be provided throughout the activity or intermittently. 3-Partial/Moderate Assistance-helper does LESS THAN HALF the effort. [place] lifts, holds or supports trunk or limbs, but provides less than half the effort. 2-Substantial/Maximal Assistance-helper does MORE THAN HALF the effort. [place] lifts or holds trunk or limbs and provides more than half the effort. 8-Tgfdjbxfk-ruomwa does ALL the effort. Patient does none of the effort to complete the activity. Or, the assistance of 2 or more helpers is required for the patient to complete the activity. If activity was not attempted, code reason: 7-Patient Refused. 9-Not Applicable-not attempted and the patient did not perform the activity before the current illness, exacerbation or injury. 10-Not Attempted due to Environmental Limitations-(lack of equipment, weather restraints, etc.). 88-Not Attempted due to Medical Conditions or Safety Concerns. Lying to Sitting/Side of Bed(Q: 2 Sit to Stand (QC): 1 (x 2 sets) Weight Bearing Right Lower Extremity: Right Weight Bearing/Tolerated Assessment Patient requires time to complete all functional tasks. left AKA stump required redressing. Patient sitting EOB eating breakfast with all light in reach. PT Director Of Occupational Health Goals Director Of Occupational Health Goals PT Director Of Occupational Health Goals Time Frame: Aug 26, 2023 Roll Left & Right (QC): 5 Sit to Lying (QC): 5 Lying-Sitting on Side/Bed(QC): 5 Sit to Stand (QC): 5 Chair/Ndg-el-Ndfos Xfer(QC): 5 Does the Patient Walk: No and Walking Goal IS indicated Walk 10 feet (QC): 5 Does the Pt use WC or Scooter?: Yes Wheel 50 feet with 2 turns (QC: 5 Type: Manual PT Plan Treatment/Plan Treatment Plan: Continue Plan of Care Treatment Plan: Bed Mobility, Concurrent Therapy, Functional Activity Juli, Functional Strength, Gait, Safety, Therapeutic Exercise, Transfers Treatment Duration: Aug 26, 2023 Frequency: 5 times per week Estimated Hrs Per Day: .25 hour per day Patient and/or Family Agrees t: Yes Time Time In: 835 Time Out: 850 DATE: Aug 15, 2023 Total Billed Treatment Time: 15 Total Billed Treatment 1 visit FA 15 min LIZET SARMIENTO PT Aug 15, 2023 09:49
--- NOTE | 2023-08-15 10:01 | Occupational Ther Daily Note ---
OT Current Status-Daily Note Subjective Agreeable to EOB task and standing with OT Pain Numeric Pain Scale: 6 Location Body Site: Generalized Mental Status/Objective Patient Orientation: Person, Place, Time, Situation Attachments: Guerra Catheter, IV ADL-Treatment grooming task EOB sitting unsupported, reclines twice during treatment to rest. Therapy Code Descriptions/Definitions Functional [place] Measure: 0=Not Assessed/NA 4=Minimal Assistance 1=Total Assistance 5=Supervision or Setup 2=Maximal Assistance 6=Modified [place] 3=Moderate Assistance 7=Complete IndependenceSCALE: Activities may be completed with or without assistive devices. 7-Uqfdqtvbxt-ubmebfc completes the activity by him/herself with no assistance from a helper. 5-Set-up or Clean-up Assistance-helper sets up or cleans up; patient completes activity. [place] assists only prior to or following the activity. 4-Supervision or Touching Assistance-helper provides verbal cues and/or touching/steadying and/or contact guard assistance as patient completes activity. Assistance may be provided throughout the activity or intermittently. 3-Partial/Moderate Assistance-helper does LESS THAN HALF the effort. [place] lifts, holds or supports trunk or limbs, but provides less than half the effort. 2-Substantial/Maximal Assistance-helper does MORE THAN HALF the effort. [place] lifts or holds trunk or limbs and provides more than half the effort. 5-Tzbuxrqrq-zjrbst does ALL the effort. Patient does none of the effort to complete the activity. Or, the assistance of 2 or more helpers is required for the patient to complete the activity. If activity was not attempted, code reason: 7-Patient Refused. 9-Not Applicable-not attempted and the patient did not perform the activity before the current illness, exacerbation or injury. 10-Not Attempted due to Environmental Limitations-(lack of equipment, weather restraints, etc.). 88-Not Attempted due to Medical Conditions or Safety Concerns. Eating (QC): 5 Oral Hygiene (QC): 5 Upper Body Dressing (QC): 3 Lower Body Dressing (QC): 1 On/Off Footwear: 1 Toileting Hygiene (QC): 1 Toilet Transfer (QC): 2 sit/stand EOB w/ OT twice Education OT Patient Education: Correct positioning, Exercise program, Modified ADL techniques, Progress toward Goal/Update tx plan, Purpose of tx/functional activities, Reviewed precautions, Rehab process, Safety issues, Transfer techniques, Use of adapted equipment Teaching Recipient: Patient Teaching Methods: Demonstration Response to Teaching: Verbalize Understanding, Return Demonstration, Reinforcement Needed OT Stereo Compiler Goals Half-Way Goals Eating (QC): 5 Oral Hygiene (QC): 5 Toileting Hygiene (QC): 3 Shower/Bathe Self (QC): 2 Upper Body Dressing (QC): 3 Lower Body Dressing (QC): 2 On/Off Footwear (QC): 3 1=Demonstrate adherence to instructed precautions during ADL tasks. 2=Patient will verbalize/demonstrate understanding of assistive devices/modifications for ADL. 3=Patient will improve strength/tolerance for activity to enable patient to perform ADL's. OT Education/Plan Problem List/Assessment Assessment: Decreased Activ Tolerance, Decreased Safety Aware, Decreased UE Strength, Dependent Transfers, Impaired Coordination, Impaired Funct Balance, Impaired Self-Care Skills, Restricted Funct UE ROM Discharge Recommendations Plan/Recommendations: Continue POC Treatment Plan/Plan of Care Treatment,Training & Education: Yes Patient would benefit from OT for education, treatment and training to promote independence in ADL's, mobility, safety and/or upper extremity function for ADL's. Plan of Care: ADL Retraining, Functional Mobility, UE Funct Exercise/Act Treatment Duration: Aug 25, 2023 Frequency: 3 times per week (3-5 times per week) Estimated Hrs Per Day: .25 hour per day Rehab Potential: Good Time Start Time: 08:35 Stop Time: 08:50 DATE: Aug 15, 2023 Total Time Billed (hr/min): 15 Billed Treatment Time ADL 15 min CATA MALONE OT Aug 15, 2023 10:01
[2023-08-15] MEDS: morphine EXTENDED RELEASE 15 MG TABLET PO SCH ×3 (10:04→19:24)
[2023-08-15] MEDS: SPIRONOLACTONE 25 MG TABLET PO SCH (10:04)
[2023-08-15] MEDS: MIDODRINE 10 MG TABLET PO SCH ×3 (10:04→19:25)
[2023-08-15] MEDS: ASPIRIN enteric coated 81MG TABLET PO SCH (10:04)
[2023-08-15] MEDS: FAMOTIDINE 20 MG TABLET PO SCH (10:04)
[2023-08-15] MEDS: LACTOBACILLUS ACIDOPHILUS (PROBIOTIC) CAPSULE PO SCH ×3 (10:04→17:15)
[2023-08-15] MEDS: GABAPENTIN 100 MG CAPSULE PO SCH ×3 (10:05→19:25)
--- NOTE | 2023-08-15 10:30 | Progress Note - Hospitalist ---
Subjective HPI/CC On Admission Date Seen by Provider: Aug 15, 2023 Benjamin Shaffer is a 78 year old male with PMH HTN, HLD, CAD, PAD, RA, HFrEF, COPD, tobacco abuse, who presented with lower extremity wound. He was recently admitted with septic shock due to lower extremity wounds. He was transferred to [facility] for surgical intervention for PAD. He was discharged to [facility]. He says there was a small wound on his leg which rapidly increased in size. He denies fevers and chills. He denies chest pain and shortness of breath. He has no other complaints. Subjective/Events-last exam Pt reports doing ok but having pain. That is his only concern but he states he is managing. Rn informed. Objective Exam Vital Signs Vital Signs Date Time Temp Pulse Resp B/P (MAP) Pulse Ox O2 Delivery O2 Flow Rate FiO2 08/15/23 08:00 Room Air 08/15/23 07:56 37.4 84 16 126/69 (88) 96 1.00 08/13/23 16:36 24 Capillary Refill : Less Than 3 Seconds General Appearance: No Apparent Distress, Chronically ill Respiratory: Lungs Clear Cardiovascular: Regular Rate, Rhythm, No Murmur Extremity: Other (left AKA) Neurologic/Psychiatric: Alert, Oriented x3 Results/Procedures Lab Laboratory Tests 08/15/23 05:21 08/15/23 07:40 Patient resulted labs reviewed. Imaging: Reviewed Imaging Report Assessment/Plan Assessment and Plan Assess & Plan/Chief Complaint PAD Wound infection Arterial insufficiency ulcer Surgery primary s/p left AKA 08/11 Continue Zosyn Pain regimen Continue imodium for diarrhea and probiotic IRF consulted HTN HLD CAD COPD Tobacco abuse Poor prognosis Debility Resume home meds as able DVT prophylaxis: NOLBERTO Han MD Aug 15, 2023 10:30
[2023-08-15 11:27] VITALS: BP 115/59
[2023-08-15] MEDS: ENOXAPARIN 40 MG/0.4 ML SYRINGE SQ SCH (11:32)
[2023-08-15] MEDS: CLOPIDOGREL 75 MG TABLET PO SCH (14:15)
[2023-08-15 15:29] VITALS: BP 108/54
[2023-08-15 19:17] VITALS: BP_SYST 109; BP_SYST 127; BP_DIAS 57; BP_DIAS 70
[2023-08-15 23:42] VITALS: BP 133/58
[2023-08-16] VITALS (7 sets, daily range): BP systolic 97–131; BP diastolic 53–63
[2023-08-16] MEDS: morphine INJ 4 MG/ML 1 ML (VIAL/SYRINGE) IVP PRN (02:37)
[2023-08-16] MEDS: LEVOTHYROXINE 150 MCG TABLET PO SCH (05:07)
[2023-08-16 05:26] LABS: HEMATOCRIT 26 % (40-54); HEMOGLOBIN 7.6 g/dL (13.3-17.7); MEAN CORPUSCULAR HEMOGLOBIN 24 pg (25-34); MEAN CORPUSCULAR HGB CONC 30 g/dL (32-36); MEAN CORPUSCULAR VOLUME 82 fL (80-99); MEAN PLATELET VOLUME 9.9 fL (9.0-12.2); PLATELET COUNT 194 10^3/uL (130-400); WHITE BLOOD COUNT 9.9 10^3/uL (4.3-11.0)
[2023-08-16 05:44] LABS: CALCIUM 8.1 MG/DL (8.5-10.1); CREATININE SERUM 1.42 MG/DL (0.60-1.30); POTASSIUM 4.4 MMOL/L (3.6-5.0)
[2023-08-16] MEDS: FLUTICASONE/VILANTEROL 200/25 MCG (14 DOSES) IH SCH (06:46)
[2023-08-16] MEDS: RT-Ipratropium/Albuterol NEB 3 ML VIAL INH SCH ×2 (06:46→20:31)
--- NOTE | 2023-08-16 08:00 | Progress Note - Surgery ---
JAYESH JONES 08/16/23 0800: Subjective Date Seen by a Provider: Aug 16, 2023 Time Seen by a Provider: 06:45 Subjective/Events-last exam Pt is laying in bed and c/o of pain. Pain is tolerable. No nausea or vomiting. Review of Systems General: No Chills, No Night Sweats HEENT: No Head Aches, No Visual Changes Pulmonary: No Dyspnea, No Cough Cardiovascular: No: Chest Pain, Palpitations Gastrointestinal: No: Nausea, Vomiting Genitourinary: No Dysuria, No Hematuria Musculoskeletal: No: neck pain, shoulder pain Neurological: No: Weakness, Numbness Objective Exam Vital Signs Date Time Temp Pulse Resp B/P (MAP) Pulse Ox O2 Delivery O2 Flow Rate FiO2 08/16/23 07:33 36.9 73 16 130/63 (85) 97 Nasal Cannula 1.00 08/16/23 06:46 97 Nasal Cannula 1.00 08/16/23 03:04 36.8 71 18 112/56 (74) 96 Nasal Cannula 1.00 08/15/23 23:42 36.4 88 20 133/58 (83) 98 Nasal Cannula 1.00 08/15/23 19:31 Room Air 08/15/23 19:17 36.6 71 18 109/57 (74) 95 Nasal Cannula 1.00 08/15/23 15:29 37.1 74 16 108/54 (72) 99 Nasal Cannula 1.00 08/15/23 11:27 36.8 74 16 115/59 (77) 97 Room Air 1.00 08/15/23 08:00 Room Air I & O 08/16/23 07:00 Intake Total 1240 ml Output Total 1475 ml Balance -235 ml Capillary Refill : Less Than 3 Seconds General Appearance: No Apparent Distress, Chronically ill HEENT: PERRL/EOMI, Normal ENT Inspection Neck: Non Tender, Supple Respiratory: Chest Non Tender, No Accessory Muscle Use, No Respiratory Distress Cardiovascular: Regular Rate, Rhythm, No Edema, No JVD Peripheral Pulses: 1+ Dorsalis Pedis (R) Gastrointestinal: non tender, soft Extremity: Non Tender, No Calf Tenderness, Other (Left AKA. Wound is clean, dry, intact. Sligh bruising around incision) Neurologic/Psychiatric: Alert, Oriented x3 Skin: Normal Color Lymphatic: No Adenopathy Results Lab Laboratory Tests 08/16/23 05:07: White Blood Count 9.9, Red Blood Count 3.13L, Hemoglobin 7.6L, Hematocrit 26L, Mean Corpuscular Volume 82, Mean Corpuscular Hemoglobin 24L, Mean Corpuscular Hemoglobin Concent 30L, Red Cell Distribution Width 23.9H, Platelet Count 194, Mean Platelet Volume 9.9, Sodium Level 139, Potassium Level 4.4, Chloride Level 109H, Carbon Dioxide Level 23, Anion Gap 7, Blood Urea Nitrogen 19H, Creatinine 1.42H, Estimat Glomerular Filtration Rate 51, BUN/Creatinine Ratio 13, Glucose Level 113H, Calcium Level 8.1L Microbiology 08/10/23 Blood Culture - Preliminary, Resulted 08/10/23 MRSA Screen - Final, Complete MRSA not isolated Assessment/Plan Assessment/Plan Assessment/Plan S/p left above knee amputation Chronic peripheral artery disease History of revascularization left lower extremity history of left knee replacement 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 Continues to be stable. Monitor Taking Plavix and ASA Prosthetics consult for hopper feeder IPR eval declined but discussed needs. Continued discussion and awaiting DANIEL Lam DO 08/16/23 1532: Subjective Time Seen by a Provider: 14:02 Subjective/Events-last exam Pt seen and examined, no new complaints and tolerating diet. Review of Systems Pulmonary: No Dyspnea, No Cough Cardiovascular: No: Chest Pain, Palpitations Gastrointestinal: No: Nausea, Vomiting Objective Exam General Appearance: No Apparent Distress, Chronically ill HEENT: PERRL/EOMI Respiratory: Chest Non Tender, No Accessory Muscle Use, No Respiratory Distress Cardiovascular: Regular Rate, Rhythm, No Murmur Extremity: Other (Left AKA. Wound is clean, dry, intact. Sligh bruising around incision, Art Tracer in place) Assessment/Plan Assessment/Plan Assessment/Plan S/P Left AKA Continue pain control Medicine consulted [place] and wrap left aka once daily Hgb 7.6 this morning. Continues to be stable. Monitor Taking Plavix and ASA Prosthetics consult for hopper feeder IPR eval declined but discussed needs. Continued discussion and awaiting decision. Supervisory-Addendum Brief Verification & Attestation Participated in pt care: history, MDM, physical Personally performed: exam, history, MDM, supervision of care Care discussed with: Medical Student Procedures: n/a Verification and Attestation of Medical Student E/M Service A medical student performed and documented this service. I then reviewed and verified all information documented by the medical student and made modifications to such information, when appropriate. I personally performed a physical exam, medical decision making and then discussed any differences between the notes and made revisions as necessary to create one note. Daniel Jaime , 08/16/23 , 15:32 JAYESH JONES Aug 16, 2023 08:00 DANIEL JAIME DO Aug 16, 2023 15:32
[2023-08-16] MEDS: ENOXAPARIN 40 MG/0.4 ML SYRINGE SQ SCH (08:59)
[2023-08-16] MEDS: GABAPENTIN 100 MG CAPSULE PO SCH ×3 (09:00→19:30)
[2023-08-16] MEDS: morphine EXTENDED RELEASE 15 MG TABLET PO SCH ×3 (09:00→19:30)
[2023-08-16] MEDS: ASPIRIN enteric coated 81MG TABLET PO SCH (09:00)
[2023-08-16] MEDS: SPIRONOLACTONE 25 MG TABLET PO SCH (09:00)
[2023-08-16] MEDS: LACTOBACILLUS ACIDOPHILUS (PROBIOTIC) CAPSULE PO SCH ×3 (09:00→17:21)
[2023-08-16] MEDS: FAMOTIDINE 20 MG TABLET PO SCH (09:00)
[2023-08-16] MEDS: MIDODRINE 10 MG TABLET PO SCH ×3 (09:00→19:30)
[2023-08-16] MEDS: PANTOPRAZOLE 40 MG TABLET PO SCH ×2 (09:04→13:18)
--- NOTE | 2023-08-16 10:41 | Occupational Ther Daily Note ---
OT Current Status-Daily Note Subjective OT is returning for second time. Patient agrees to participate in ther-ex beside Mental Status/Objective Patient Orientation: Person, Place, Time, Situation ADL-Treatment Therapy Code Descriptions/Definitions Functional [place] Measure: 0=Not Assessed/NA 4=Minimal Assistance 1=Total Assistance 5=Supervision or Setup 2=Maximal Assistance 6=Modified [place] 3=Moderate Assistance 7=Complete IndependenceSCALE: Activities may be completed with or without assistive devices. 9-Oslvpmuxmb-okzcxyt completes the activity by him/herself with no assistance from a helper. 5-Set-up or Clean-up Assistance-helper sets up or cleans up; patient completes activity. [place] assists only prior to or following the activity. 4-Supervision or Touching Assistance-helper provides verbal cues and/or touchi ng/steadying and/or contact guard assistance as patient completes activity. Assistance may be provided throughout the activity or intermittently. 3-Partial/Moderate Assistance-helper does LESS THAN HALF the effort. [place] lifts, holds or supports trunk or limbs, but provides less than half the effort. 2-Substantial/Maximal Assistance-helper does MORE THAN HALF the effort. [place] lifts or holds trunk or limbs and provides more than half the effort. 7-Gzbxtesvx-aphdrr does ALL the effort. Patient does none of the effort to complete the activity. Or, the assistance of 2 or more helpers is required for the patient to complete the activity. If activity was not attempted, code reason: 7-Patient Refused. 9-Not Applicable-not attempted and the patient did not perform the activity before the current illness, exacerbation or injury. 10-Not Attempted due to Environmental Limitations-(lack of equipment, weather restraints, etc.). 88-Not Attempted due to Medical Conditions or Safety Concerns. Other Treatment OT provided education and demonstration of light touch massage for reduction of phantom pain to amputated limb. Theraband loop on bed rail and additional loop for hand/wrist placement for patient to perform UE ER/IR, flex/abd/add for increase strength for bed mobility, and transfers Education OT Patient Education: Exercise program, Progress toward Goal/Update tx plan, Purpose of tx/functional activities, Reviewed precautions, Rehab process, Safety issues Teaching Recipient: Patient Teaching Methods: Demonstration, Discussion Response to Teaching: Reinforcement Needed OT Care Home Goals Manager Car Goals Eating (QC): 5 Oral Hygiene (QC): 5 Toileting Hygiene (QC): 3 Shower/Bathe Self (QC): 2 Upper Body Dressing (QC): 3 Lower Body Dressing (QC): 2 On/Off Footwear (QC): 3 1=Demonstrate adherence to instructed precautions during ADL tasks. 2=Patient will verbalize/demonstrate understanding of assistive devices/modifications for ADL. 3=Patient will improve strength/tolerance for activity to enable patient to perform ADL's. OT Education/Plan Problem List/Assessment Assessment: Decreased Activ Tolerance, Decreased UE Strength, Impaired Bed Mobility, Impaired Coordination, Impaired Funct Balance, Impaired Self-Care Skills Discharge Recommendations Plan/Recommendations: Continue POC Treatment Plan/Plan of Care Treatment,Training & Education: Yes Patient would benefit from OT for education, treatment and training to promote independence in ADL's, mobility, safety and/or upper extremity function for ADL's. Plan of Care: ADL Retraining, Functional Mobility, UE Funct Exercise/Act Treatment Duration: Aug 25, 2023 Frequency: 3 times per week (3-5 times per week) Estimated Hrs Per Day: .25 hour per day Rehab Potential: Good Time Start Time: 09:37 Stop Time: 09:50 DATE: Aug 16, 2023 Total Time Billed (hr/min): 13 Billed Treatment Time EX 13 min CATA MALONE OT Aug 16, 2023 10:41
--- NOTE | 2023-08-16 10:48 | Physical Therapy Daily Note ---
PT Daily Note-Current Subjective Patient lying supine in bed upon PT arrival, initially refuses but agrees as BREAST BUFFER is changing bed linens. Only agrees to transfers for linen change. Patient rates pain at 9/10 in the left residual limb. Pain Section J - Health Conditions 1. Rarely or not at all 2. Occasionally 3. Frequently 4. Almost constantly 8. Unable to answer Pain Effect on Sleep: 2 Pain Interference with Therapy: 2 Pain Interference w/Day-to-Day: 2 Transfers SCALE: Activities may be completed with or without assistive devices. 6-Kieevijtit-sktwzmj completes the activity by him/herself with no assistance from a helper. 5-Set-up or Clean-up Assistance-helper sets up or cleans up; patient completes activity. [place] assists only prior to or following the activity. 4-Supervision or Touching Assistance-helper provides verbal cues and/or touching/steadying and/or contact guard assistance as patient completes activity. Assistance may be provided throughout the activity or intermittently. 3-Partial/Moderate Assistance-helper does LESS THAN HALF the effort. [place] lifts, holds or supports trunk or limbs, but provides less than half the effort. 2-Substantial/Maximal Assistance-helper does MORE THAN HALF the effort. [place] lifts or holds trunk or limbs and provides more than half the effort. 3-Rsyijakrn-yznjgd does ALL the effort. Patient does none of the effort to complete the activity. Or, the assistance of 2 or more helpers is required for the patient to complete the activity. If activity was not attempted, code reason: 7-Patient Refused. 9-Not Applicable-not attempted and the patient did not perform the activity before the current illness, exacerbation or injury. 10-Not Attempted due to Environmental Limitations-(lack of equipment, weather restraints, etc.). 88-Not Attempted due to Medical Conditions or Safety Concerns. Roll Left & Right (QC): 2 Sit to Lying (QC): 2 Lying to Sitting/Side of Bed(Q: 2 Weight Bearing Right Lower Extremity: Right Weight Bearing/Tolerated Assessment Current Status: Poor Progress Patient performs all bed mobility with max a. Patient sits at EOB ~5 minutes while BREAST BUFFER changes linens. Patient requires max A to return to bed. Patient in bed post treatment with all needs met, nursing notified, call light in hand and BREAST BUFFER in room. PT Satellite Tv Installer Goals Halfway Goals PT Satellite Tv Installer Goals Time Frame: Aug 26, 2023 Roll Left & Right (QC): 5 Sit to Lying (QC): 5 Lying-Sitting on Side/Bed(QC): 5 Sit to Stand (QC): 5 Chair/Kgq-fu-Zxjzm Xfer(QC): 5 Does the Patient Walk: No and Walking Goal IS indicated Walk 10 feet (QC): 5 Does the Pt use WC or Scooter?: Yes Wheel 50 feet with 2 turns (QC: 5 Type: Manual PT Plan Treatment/Plan Treatment Plan: Continue Plan of Care Treatment Plan: Bed Mobility, Concurrent Therapy, Functional Activity Juli, Functional Strength, Gait, Safety, Therapeutic Exercise, Transfers Treatment Duration: Aug 26, 2023 Frequency: 5 times per week Estimated Hrs Per Day: .25 hour per day Patient and/or Family Agrees t: Yes Safety Risks/Education Patient Education: Transfer Techniques Teaching Recipient: Patient Teaching Methods: Demonstration, Discussion Response to Teaching: Reinforcement Needed Time Time In: 1033 Time Out: 1043 DATE: Aug 16, 2023 Total Billed Treatment Time: 10 Total Billed Treatment Visit, BILL NORIEGA PT Aug 16, 2023 10:48
[2023-08-16] MEDS: CLOPIDOGREL 75 MG TABLET PO SCH (13:18)
[2023-08-17] MEDS: morphine INJ 4 MG/ML 1 ML (VIAL/SYRINGE) IVP PRN (01:15)
[2023-08-17 04:44] LABS: HEMATOCRIT 26 % (40-54); MEAN CORPUSCULAR HEMOGLOBIN 25 pg (25-34); MEAN CORPUSCULAR HGB CONC 30 g/dL (32-36); MEAN CORPUSCULAR VOLUME 82 fL (80-99); MEAN PLATELET VOLUME 9.5 fL (9.0-12.2); PLATELET COUNT 238 10^3/uL (130-400); WHITE BLOOD COUNT 8.9 10^3/uL (4.3-11.0)
[2023-08-17 04:57] LABS: POTASSIUM 4.3 MMOL/L (3.6-5.0)
[2023-08-17 04:58] LABS: CALCIUM 8.4 MG/DL (8.5-10.1)
[2023-08-17 05:02] LABS: CREATININE SERUM 1.37 MG/DL (0.60-1.30)
[2023-08-17] MEDS: LEVOTHYROXINE 150 MCG TABLET PO SCH (06:12)
[2023-08-17 07:23] VITALS: BP 109/62
[2023-08-17] MEDS: MIDODRINE 10 MG TABLET PO SCH (08:35)
[2023-08-17] MEDS: SPIRONOLACTONE 25 MG TABLET PO SCH (08:35)
[2023-08-17] MEDS: FAMOTIDINE 20 MG TABLET PO SCH (08:35)
[2023-08-17] MEDS: GABAPENTIN 100 MG CAPSULE PO SCH (08:36)
[2023-08-17] MEDS: morphine EXTENDED RELEASE 15 MG TABLET PO SCH (08:36)
[2023-08-17] MEDS: ASPIRIN enteric coated 81MG TABLET PO SCH (08:36)
[2023-08-17] MEDS: LACTOBACILLUS ACIDOPHILUS (PROBIOTIC) CAPSULE PO SCH (08:36)
[2023-08-17] MEDS: PANTOPRAZOLE 40 MG TABLET PO SCH (08:39)
[2023-08-17] MEDS: RT-Ipratropium/Albuterol NEB 3 ML VIAL INH SCH (08:43)
[2023-08-17] MEDS: FLUTICASONE/VILANTEROL 200/25 MCG (14 DOSES) IH SCH (08:43)
== END 2023-08-17 10:20 | DRG 240 ==
LOC: EDUNIT# 15:05 → ER 15:05 → 4TH 18:03
PROVIDERS: ADMIT Surgery; ATTEND Surgery
PROC: 0Y6D0Z3 Detachment at Left Upper Leg, Low, Open Approach (ICD-10-PCS; principal; 2023-08-14)
DX: I73.9 Peripheral vascular disease, unspecified (principal); I42.9 Cardiomyopathy, unspecified; I50.22 Chronic systolic (congestive) heart failure; L03.116 Cellulitis of left lower limb; I77.1 Stricture of artery; I25.10 Atherosclerotic heart disease of native coronary artery without angina pectoris; Z66 Do not resuscitate; J44.9 Chronic obstructive pulmonary disease, unspecified; F17.210 Nicotine dependence, cigarettes, uncomplicated; R53.81 Other malaise; M06.9 Rheumatoid arthritis, unspecified; I11.0 Hypertensive heart disease with heart failure; Z95.5 Presence of coronary angioplasty implant and graft; J43.9 Emphysema, unspecified; E78.00 Pure hypercholesterolemia, unspecified; M81.0 Age-related osteoporosis without current pathological fracture; E03.9 Hypothyroidism, unspecified; F41.9 Anxiety disorder, unspecified; Z79.82 Long term (current) use of aspirin; Z79.899 Other long term (current) drug therapy; Z96.652 Presence of left artificial knee joint; Z96.632 Presence of left artificial wrist joint; D64.9 Anemia, unspecified
CPT/HCPCS: 36415; 73560; 73590; 73630; 80048; 80053; 80202; 82947; 83605; 85007; 85027; 85610; 85730; 86850; 86900; 86901; 87040; 87081; 94640; 94664; 94760; 96361; 96365; 96366; 96375